=== PATIENT | male | born 1975 | race Caucasian/White ===

== ENCOUNTER 2016-08-21 19:24 | Emergency (ER) | payer MEDICAID ==
[2016-08-21 19:24] VITALS: BMI 30.4
[2016-08-21 19:32] VITALS: RESP 20; TEMP 97.8; O2SAT 97
[2016-08-21] MEDS ORDERED: Bacitracin 500 Units/gm Oint Foilpak UD TOP ONE (19:35)
[2016-08-21] MEDS ORDERED: Bacitracin 500 Units/gm Oint Foilpak UD ONE (19:42)
--- NOTE | 2016-08-21 20:02 | C.PDOC ---
History Of Present Illness 40 y/o male presents to the ED with complains of bilateral knee pain. Pt reports falling in the snow 1 week ago causing bilateral knee pain. Today, patient was walking tripped and fell on uneven sidewalk injuring knees again. Pt denies numbness, weakness or any other complaints. Time Seen by Provider: 08/21/16 19:30 Chief Complaint (Nursing): Lower Extremity Problem/Injury History Per: Patient History/Exam Limitations: no limitations Onset/Duration Of Symptoms: Days Current Symptoms Are (Timing): Worse Severity: Mild Recent travel outside of the [place]: No - Knee Description Of Injury: Fell Past Medical History Reviewed: Historical Data, Nursing Documentation, Vital Signs Vital Signs: Last Vital Signs Temp 97.8 F 08/21/16 19:28 Pulse 79 08/21/16 20:10 Resp 20 08/21/16 20:10 BP 95/55 L 08/21/16 20:10 Pulse Ox 97 08/21/16 20:37 - Medical History PMH: Anemia, Anxiety, Arthritis, Asthma, CHF, Diabetes, Gastrointestinal Ulcer, HTN, Hypercholesterolemia, Pneumonia, Rheumatoid Arthritis, Seizures (etoh induced) Surgical History: Endoscopy - [facility] Procedures ALCOHOL DETOXIFICATION (05/28/13) CENTRAL VENOUS CATHETER PLACEMENT WITH GUIDANCE (01/31/14) CYSTOSCOPY NEC (06/08/13) DETOXIFICATION SERVICES FOR SUBSTANCE ABUSE TREATMENT (08/14/15) EXCISION OF ASCENDING COLON, ENDO, DIAGN (10/29/15) EXCISION OF STOMACH, ENDO, DIAGN (10/29/15) GROUP PSYCHOTHERAPY (04/21/16) OTHER ENDOSCOPY OF SM INTEST (01/31/14) PACKED CELL TRANSFUSION (01/31/14) RETROGRADE PYELOGRAM (06/08/13) TRANSFUSE NONAUT FROZEN PLASMA IN PERIPH VEIN, PERC (05/06/15) TRANSFUSE NONAUT RED BLOOD CELLS IN PERIPH VEIN, PERC (10/29/15) Family History: States: Unknown Family Hx, Diabetes (Father) - Social History Hx Tobacco Use: No Hx Alcohol Use: Yes Hx Substance Use: No - Immunization History Hx Tetanus Toxoid Vaccination: Yes Hx Influenza Vaccination: Yes Hx Pneumococcal Vaccination: Yes Review Of Systems Constitutional: Negative for: Fever, Weakness, Malaise Cardiovascular: Negative for: Chest Pain Respiratory: Negative for: Cough Gastrointestinal: Negative for: Abdominal Pain Musculoskeletal: Positive for: Other (bilateral knee pain) Neurological: Negative for: Weakness, Numbness Physical Exam - Physical Exam Appears: Non-toxic, No Acute Distress Skin: Warm, Dry, No Rash, No Ecchymosis, Other (psoriasis and plaques to body) Head: Atraumatic, Normacephalic Eye(s): bilateral: Normal Inspection, EOMI Neck: Normal ROM Extremity: Normal ROM, No Calf Tenderness, No Deformity, Other (Superficial abrasion to bilateral knees, normal ROM, no swelling. ) Pulses: Left Dorsalis Pedis: Normal, Right Dorsalis Pedis: Normal Neurological/Psych: Oriented x3, Normal Speech, Normal Motor, Normal Sensation ED Course And Treatment O2 Sat by Pulse Oximetry: 97 (on room air) Pulse Ox Interpretation: Normal Progress Note: Plan: wound care, tylenol Medical Decision Making Medical Decision Makin y.o male with leg abrasion after trip and fall. Based on history and exam, unlikely for fracture and xray not indicated. Patient has been seen in ER mulitiple times for similar complaints of chronic leg pain and falls. Wounds irrigated with NS and bacitracin and dressing was applied. Tylenol PO given for pain. Of note patient was hypotensive, states he has been fasting all day, denies any headache dizziness or weakness. Patient stable for discharge. Disposition Counseled Patient/Family Regarding: Need For Followup - Disposition Referrals: Damaris Edwards MD [Staff Provider] - Disposition: HOME/ ROUTINE Disposition Time: 19:56 Condition: STABLE Additional Instructions: You may take any pain reliever Tylenol or Advil as needed Keep wounds clean and dry Follow up with your primary doctor Instructions: Contusion in Adults (DC) - POA Present On Arrival: None - Clinical Impression Clinical Impression: Contusion of leg, Leg abrasion - PA / ARCHITECTURE INTERN / Resident Statement MD/DO has reviewed & agrees with the documentation as recorded. - Scribe Statement The provider has reviewed the documentation as recorded by the Rayneibradha Hayden All medical record entries made by the Rayneibradha were at my direction and personally dictated by me. I have reviewed the chart and agree that the record accurately reflects my personal performance of the history, physical exam, medical decision making, and the department course for this patient. I have also personally directed, reviewed, and agree with the discharge instructions and disposition.
[2016-08-21 20:10] VITALS: BP 95/55; PULSE 79
== END 2016-08-21 20:15 | disposition home or self-care (01) ==
LOC: C.ER 19:24
DX: S80.02XA Contusion of left knee, initial encounter (principal); S80.01XA Contusion of right knee, initial encounter; S80.212A Abrasion, left knee, initial encounter; S80.211A Abrasion, right knee, initial encounter; W01.0XXA Fall on same level from slipping, tripping and stumbling without subsequent striking against object, initial encounter; Y92.480 Sidewalk as the place of occurrence of the external cause

== ENCOUNTER 2016-10-09 11:30 | Emergency (ER) | payer MEDICAID ==
[2016-10-09 11:36] VITALS: O2SAT 100; BMI 29.0
[2016-10-09] MEDS ORDERED: Bacitracin 500 Units/gm Oint Foilpak UD TOP ONE (14:11)
--- NOTE | 2016-10-09 14:14 | C.PDOC ---
History Of Present Illness 40 y/o male, history of diabetes and anxiety, reports fall onto right knee, landing on left chest and cheek yesterday. Denies LOC. Patient states he was thrown off balance while swinging his child's backpack yesterday, causing the fall. Patient states the left chest wall pain makes it hard to breathe. He reports pain localized to just below left nipple. Denies neck pain, headache, new weakness, new numbness, nausea, vomiting, or other associated symptoms. Time Seen by Provider: 10/09/16 12:36 Chief Complaint (Nursing): Chest Pain History Per: Patient History/Exam Limitations: no limitations Onset/Duration Of Symptoms: Days Current Symptoms Are (Timing): Still Present Quality: "Pain" Recent travel outside of the [place]: No Past Medical History Reviewed: Historical Data, Nursing Documentation, Vital Signs Vital Signs: Last Vital Signs Temp 98 F 10/09/16 11:35 Pulse 89 10/09/16 11:35 Resp 18 10/09/16 11:35 BP 122/78 10/09/16 11:35 Pulse Ox 100 10/09/16 16:04 - Medical History PMH: Anemia, Anxiety, Arthritis, Asthma, CHF, Depression, Diabetes, Gastrointestinal Ulcer, HTN, Hypercholesterolemia, Pneumonia, Rheumatoid Arthritis, Seizures (etoh induced) Surgical History: Endoscopy - [facility] Procedures ALCOHOL DETOXIFICATION (05/28/13) CENTRAL VENOUS CATHETER PLACEMENT WITH GUIDANCE (01/31/14) CYSTOSCOPY NEC (06/08/13) DETOXIFICATION SERVICES FOR SUBSTANCE ABUSE TREATMENT (08/14/15) EXCISION OF ASCENDING COLON, ENDO, DIAGN (10/29/15) EXCISION OF STOMACH, ENDO, DIAGN (10/29/15) GROUP PSYCHOTHERAPY (04/21/16) OTHER ENDOSCOPY OF SM INTEST (01/31/14) PACKED CELL TRANSFUSION (01/31/14) RETROGRADE PYELOGRAM (06/08/13) TRANSFUSE NONAUT FROZEN PLASMA IN PERIPH VEIN, PERC (05/06/15) TRANSFUSE NONAUT RED BLOOD CELLS IN PERIPH VEIN, PERC (10/29/15) Family History: States: Unknown Family Hx, Diabetes (Father) - Social History Hx Tobacco Use: No Hx Alcohol Use: Yes (former) Hx Substance Use: No - Immunization History Hx Tetanus Toxoid Vaccination: Yes Hx Influenza Vaccination: Yes Hx Pneumococcal Vaccination: Yes Review Of Systems Except As Marked, All Systems Reviewed And Found Negative. Constitutional: Negative for: Fever, Chills Cardiovascular: Negative for: Chest Pain Respiratory: Negative for: Cough, Shortness of Breath Gastrointestinal: Negative for: Nausea, Vomiting Musculoskeletal: Positive for: Other (right knee pain, left chest wall pain) Skin: Negative for: Rash Neurological: Negative for: Weakness, Numbness Physical Exam - Physical Exam Appears: Non-toxic, Other (anxious appearing) Skin: Normal Color, Warm, Dry, Other (history of psoriasis, multiple healing dark colored skin patches over body, no ecchymosis ) Head: Atraumatic, Normacephalic Eye(s): bilateral: PERRL, EOMI Oral Mucosa: Moist Neck: Normal ROM, No Midline Cervical Tenderness, No Paracervical Tenderness, No Step Off Deformity, Supple Chest: Symmetrical, No Ecchymosis, Other ( reproducible pain along left anterior ribs, focal, no stepoff or crepitus) Cardiovascular: Rhythm Regular Respiratory: Normal Breath Sounds, No Rales, No Rhonchi, No Wheezing Gastrointestinal/Abdominal: Soft, No Tenderness, No Guarding, No Rebound Back: No Vertebral Tenderness, No Paraspinal Tenderness Extremity: Normal ROM, Capillary Refill (< 2 sec.), No Deformity, No Swelling, Other (right knee +abrasion, 2.0 cm x 1.0 cm. Full ROM of the knee. ) Extremity: Bilateral: Normal Color And Temperature Neurological/Psych: Oriented x3, Normal Speech, Normal Cognition, Normal Motor, Normal Sensation ED Course And Treatment ECG: Interpreted By Me, Viewed By Me ECG Rhythm: Sinus Rhythm ECG Interpretation: Abnormal Interpretation Of ECG: interior infarct age undermined Rate From EC (bpm) O2 Sat by Pulse Oximetry: 100 Pulse Ox Interpretation: Normal Medical Decision Making Medical Decision Making: Plan: * wound care * cxr * reassess Progress: cxr neg for fx, pt feeling much better. will d/c with nsaids and bacitracin. Disposition - Disposition Referrals: Damaris Edwards MD [Staff Provider] - Disposition Time: 15:55 Condition: IMPROVED Additional Instructions: Apply warm or cold compress to left chest wall 3-4 times a day to decrease pain. FOllow up with Dr Edwards in next few days. Take ibuprofen 600 mg by mouth every 6 hours for pain. Change dressing on knee every day. apply fresh layer of bacitracin daily. Prescriptions: RX: Bacitracin Ointment [Bacitracin] 30 gm TOP DAILY #1 tube Instructions: Contusion in Adults (ED), Abrasion (ED) Forms: General Discharge Instructions - Clinical Impression Clinical Impression: Abrasion of knee, right, Contusion of left chest wall - PA / CLERK TELEVISION PRODUCTION / Resident Statement MD/DO has reviewed & agrees with the documentation as recorded. - Scribe Statement The provider has reviewed the documentation as recorded by the Scribradha Rogers All medical record entries made by the Nikole were at my direction and personally dictated by me. I have reviewed the chart and agree that the record accurately reflects my personal performance of the history, physical exam, medical decision making, and the department course for this patient. I have also personally directed, reviewed, and agree with the discharge instructions and disposition.
[2016-10-09] MEDS ORDERED: Bacitracin 500 Units/gm Oint Foilpak UD ONE (14:21)
--- NOTE | 2016-10-09 14:27 | RAD ---
HISTORY: ant cp distal to breast left COMPARISON: No prior. TECHNIQUE: Chest PA and lateral FINDINGS: LUNGS: No active pulmonary disease. PLEURA: No significant pleural effusion identified. No pneumothorax apparent. CARDIOVASCULAR: Normal. OSSEOUS STRUCTURES: No significant abnormalities. VISUALIZED UPPER ABDOMEN: Normal. OTHER FINDINGS: None. IMPRESSION: No active disease.
[2016-10-09 16:35] VITALS: BP 132/80; PULSE 56; RESP 20; TEMP 98.1
--- NOTE | 2016-10-13 19:11 | CARD ---
APPROVED REPORT EKG Measurement Heart [id number] <Conclusion> Normal sinus rhythm Inferior infarct, age undetermined Abnormal ECG
== END 2016-10-09 16:35 | disposition designated cancer center or children's hospital (05) ==
LOC: C.ER 11:30
DX: S20.212A Contusion of left front wall of thorax, initial encounter (principal); S80.211A Abrasion, right knee, initial encounter; W18.39XA Other fall on same level, initial encounter; Y92.009 Unspecified place in unspecified non-institutional (private) residence as the place of occurrence of the external cause

== ENCOUNTER 2017-08-03 10:01 | Inpatient (IN) | payer MEDICAID ==
[2017-08-03 10:25] VITALS: BMI 29.8
[2017-08-03] MEDS ORDERED: Sodium Chloride 0.9% 1,000 ML IV ONE (11:03)
[2017-08-03] MEDS ORDERED: Sodium Chloride 0.9% 1,000 ML ONE (11:11)
[2017-08-03 11:27] LABS: BASO # 0.1 K/uL (0.0-0.2); BASO % 2.6 % (0.0-2.0); EOS # 0.1 K/uL (0.0-0.7); EOS % 1.7 % (0.0-4.0); LYMPH # 1.6 K/uL (1.0-4.3); LYMPH % 28.7 % (20.0-40.0); MEAN CELL VOLUME 88.5 fL (80.0-94.0); MEAN CORPUSCULAR HEMOGLOBIN 28.6 pg (27.0-31.0); MEAN CORPUSCULAR HGB CONC 32.4 g/dL (33.0-37.0); MONO # 0.8 K/uL (0.0-0.8); MONO % 14.1 % (0.0-10.0); NEUT % 52.9 % (50.0-75.0); NRBC % 0.1 % (0.0-2.0); RBC 2.53 Mil/uL (4.40-5.90); RED CELL DISTRIBUTION WIDTH 19.3 % (11.5-14.5); WHITE BLOOD COUNT 5.7 K/uL (4.8-10.8)
[2017-08-03] MEDS ORDERED: Multivitamin (MVI) 10 ML, Thiamine 100 MG, Folic Acid 1 MG in Sodium Chloride 0.9% 1,00... IV ONE (11:32)
[2017-08-03 11:33] LABS: HEMOGLOBIN 7.3 g/dL (12.0-18.0)
[2017-08-03 11:36] LABS: INR 1.7
[2017-08-03 11:38] LABS: PROTHROMBIN TIME 19.7 SECONDS (9.7-12.2)
[2017-08-03 11:47] LABS: ALB/GLOB RATIO 0.7 (1.0-2.1); ALBUMIN 2.5 g/dL (3.5-5.0); ALT/SGPT 55 U/L (21-72); AST/SGOT 185 U/L (17-59); BLOOD UREA NITROGEN 14 mg/dL (9-20); CALCIUM 7.4 mg/dl (8.6-10.4); GFR AFRICAN-AMERICAN 54; GFR NON-AFRICAN AMERICAN 45
--- NOTE | 2017-08-03 11:47 | C.PDOC ---
History Of Present Illness 41 y/o male, w/PMhx of diabetes, asthma, HTN, liver disease, and ETOH abuse, c/ o gross rectal bleeding w/ bm daily x 1 wk and shaking and decreased PO intake x 3 days. Pt started feeling light-headed and fainted in a store today. Pt doesn 't think he hit his head. Pt had last drink 3 days ago. Time Seen by Provider: 08/03/17 10:52 Chief Complaint (Nursing): GI Problem History Per: Patient History/Exam Limitations: no limitations Onset/Duration Of Symptoms: Days Current Symptoms Are (Timing): Still Present Severity: Moderate Past Medical History Reviewed: Historical Data, Nursing Documentation, Vital Signs Vital Signs: Last Vital Signs Temp 98.5 F 08/03/17 16:30 Pulse 110 H 08/03/17 18:00 Resp 19 08/03/17 18:00 BP 141/85 08/03/17 17:49 Pulse Ox 100 08/03/17 18:29 - Medical History PMH: Anemia, Anxiety, Arthritis, Asthma, CHF, Depression, Diabetes, Gastrointestinal Ulcer, HTN, Hypercholesterolemia, Pneumonia, Rheumatoid Arthritis, Seizures (etoh induced) Denies: Hepatitis, HIV, Chronic Kidney Disease, Sexually Transmitted Disease Other PMH: alcohol abuse Surgical History: Endoscopy - [facility] Procedures ALCOHOL DETOXIFICATION (05/28/13) CENTRAL VENOUS CATHETER PLACEMENT WITH GUIDANCE (01/31/14) CYSTOSCOPY NEC (06/08/13) DETOXIFICATION SERVICES FOR SUBSTANCE ABUSE TREATMENT (08/14/15) EXCISION OF ASCENDING COLON, ENDO, DIAGN (10/29/15) EXCISION OF STOMACH, ENDO, DIAGN (10/29/15) GROUP PSYCHOTHERAPY (04/21/16) OTHER ENDOSCOPY OF SM INTEST (01/31/14) PACKED CELL TRANSFUSION (01/31/14) RETROGRADE PYELOGRAM (06/08/13) TRANSFUSE NONAUT FROZEN PLASMA IN PERIPH VEIN, PERC (05/06/15) TRANSFUSE NONAUT RED BLOOD CELLS IN PERIPH VEIN, PERC (10/29/15) Family History: States: Diabetes (Father) - Social History Hx Tobacco Use: No Hx Alcohol Use: Yes (former) Hx Substance Use: No - Immunization History Hx Tetanus Toxoid Vaccination: Yes Hx Influenza Vaccination: Yes Hx Pneumococcal Vaccination: Yes Review Of Systems Constitutional: Positive for: Weakness, Malaise, Other (shaking). Negative for : Fever, Chills Respiratory: Positive for: Cough. Negative for: Shortness of Breath Gastrointestinal: Positive for: Hematochezia. Negative for: Vomiting Skin: Positive for: Lesions (chronic psoriasis) Neurological: Negative for: Numbness Physical Exam - Physical Exam Appears: No Acute Distress Skin: Pale, Other (psoriatic scaly patches lesions all over body) Head: Atraumatic, Normacephalic Eye(s): bilateral: Normal Inspection Oral Mucosa: Dry Neck: Supple Chest: Symmetrical, No Tenderness Cardiovascular: Rhythm Irregular (tachycardiac) Respiratory: No Decreased Breath Sounds, No Accessory Muscle Use, No Rales, No Rhonchi, No Wheezing Gastrointestinal/Abdominal: Soft, No Tenderness Rectal: Heme Positive (gross red blood in bedpan) Extremity: Other (bilateral hand tremors) Neurological/Psych: Oriented x3, Normal Speech, Normal Cognition, Other ( obvious tremulous hands) ED Course And Treatment - Laboratory Results Result Diagrams: 08/03/17 17:13 08/03/17 17:13 ECG: Interpreted By Me, Viewed By Me ECG Interpretation: Abnormal Interpretation Of ECG: Accelerated junctional rhythm, and possible anterior infarct (age undetermined) Rate From EC O2 Sat by Pulse Oximetry: 100 (RA) Pulse Ox Interpretation: Normal - Other Rad chest x-ray X-Ray: Viewed By Me, Read By Radiologist Interpretation: FINDINGS: LUNGS: The lungs are well inflated and clear. PLEURA: No pneumothorax or pleural fluid seen. CARDIOVASCULAR: Normal. OSSEOUS STRUCTURES: No significant abnormalities. VISUALIZED UPPER ABDOMEN: Normal. OTHER FINDINGS: None. IMPRESSION: No active pulmonary disease. - CT Scan/US CT Head Other Rad Studies (CT/US): Read By Radiologist, Radiology Report Reviewed CT/US Interpretation: FINDINGS: HEMORRHAGE: No intracranial hemorrhage. BRAIN : Torres-white matter differentiation is preserved. There is no mass, mass effect or abnormal extra-axial fluid collection. VENTRICLES: There is mild global parenchymal volume loss and proportionate enlargement of the ventricles and cortical sulci. CALVARIUM: The skull base and calvarium are normal. PARANASAL SINUSES: Predominantly clear. MASTOID AIR CELLS: Predominantly clear. OTHER FINDINGS: None. IMPRESSION: No acute intracranial abnormality. Mild global parenchymal volume loss, advanced for the patient's age. Progress Note: Labs, CXR, and Head CT ordered. - Physician Consult Information Physician Contacted: Damaris Edwards Outcome Of Conversation: Case d/c with Dr. Edwards. Patient will be admitted in ICU. Medical Decision Making Medical Decision Making: discussed with Dr Edwards and with Dr Oral Lind, corporate account executive. to be admitted to ICU, for gi bleed, anemia, etoh and sepsi Disposition Discussed With .: Damaris Edwards Doctor Will See Patient In The: Hospital - Disposition Disposition: HOSPITALIZED Disposition Time: 14:00 Condition: SERIOUS - Clinical Impression Clinical Impression: Sepsis, GI bleed, Anemia, Alcohol withdrawal, Syncope - PA / BLANKET MAKER / Resident Statement MD/DO has reviewed & agrees with the documentation as recorded. - Scribe Statement The provider has reviewed the documentation as recorded by the Rayneibe Shannen Serrano Provider Attestation All medical record entries made by the Scribe were at my direction and personally dictated by me. I have reviewed the chart and agree that the record accurately reflects my personal performance of the history, physical exam, medical decision making, and the department course for this patient. I have also personally directed, reviewed, and agree with the discharge instructions and disposition. Decision To Admit - Pt Status Changed To: Hospital Disposition Of: Inpatient - Admit Certification Admit to Inpatient:: After my assessment, the patient will require hospitalization for at least two midnights. This is because of the severity of symptoms shown, intensity of services needed, and/or the medical risk in this patient being treated as an outpatient. - InPatient: Physician Admission Certification: I certify that this patient requires 2 or more midnights of care for the following reason:: tx fo gi bleed and sepsis - . Bed Request Type: ICU Admitting Physician: Damaris Edwards Patient Diagnosis: Sepsis, GI bleed, Anemia, Alcohol withdrawal, Syncope
--- NOTE | 2017-08-03 12:48 | CT ---
PROCEDURE: CT HEAD WITHOUT CONTRAST. HISTORY: Syncope COMPARISON: 05/04/2015. TECHNIQUE: Axial computed tomography images were obtained through the head/brain without intravenous contrast. Radiation dose: Total exam DLP = 948.60 mGy-cm. This CT exam was performed using one or more of the following dose reduction techniques: Automated exposure control, adjustment of the mA and/or kV according to patient size, and/or use of iterative reconstruction technique. FINDINGS: HEMORRHAGE: No intracranial hemorrhage. BRAIN: Torres-white matter differentiation is preserved. There is no mass, mass effect or abnormal extra-axial fluid collection. VENTRICLES: There is mild global parenchymal volume loss and proportionate enlargement of the ventricles and cortical sulci. CALVARIUM: The skull base and calvarium are normal. PARANASAL SINUSES: Predominantly clear. MASTOID AIR CELLS: Predominantly clear. OTHER FINDINGS: None. IMPRESSION: No acute intracranial abnormality. Mild global parenchymal volume loss, advanced for the patient's age.
--- NOTE | 2017-08-03 12:51 | RAD ---
PROCEDURE: CHEST RADIOGRAPH, 1 VIEW HISTORY: Cough COMPARISON: 10/09/2016. FINDINGS: LUNGS: The lungs are well inflated and clear. PLEURA: No pneumothorax or pleural fluid seen. CARDIOVASCULAR: Normal. OSSEOUS STRUCTURES: No significant abnormalities. VISUALIZED UPPER ABDOMEN: Normal. OTHER FINDINGS: None. IMPRESSION: No active pulmonary disease.
[2017-08-03] MEDS ORDERED: Vancomycin 1 gm/NS 200 ml 1 GM/200 ML BAG IVPB ONE (13:14)
--- NOTE | 2017-08-03 14:02 | CP.PCM.CON ---
<Arnie Rincon - Last Filed: 08/03/17 14:20> History of Present Illness - History of Present Illness History of Present Illness: Initial GI Consult Note - Hermilo Rincon PGY2 Reason for consult: rectal bleeding HPI: Patient is a 41yo male with past medical history of hypertension, alcohol- induced liver cirrhosis, hypertension, diabetes, psoriasis that presented with complaints of rectal bleeding over the last 3 weeks. He reported that over the last 2-3 weeks he has had flu-like symptoms including malaise and chills. He reported having went to his PMD, who had prescribed an antibiotic. He stated that his rectal bleeding was intermittent, bright red and with stool in small amounts. He is a daily drinker with approximately 1-2 pints of vodka per day. His last reported drink was 3 days prior however he admits that he may have had a drink prior to presentation. Patient had been taking lactulose for his liver cirrhosis however ran out 3 months prior. Patient denied chest pain, palpitations, SOB, abdominal pain, vomiting, focal weakness, numbness, tingling. 12point ROS as per HPI above otherwise negative PMHx: as stated above PSHx: history of endoscopy/colonoscopy Allergies: NKDA Family hx: Father: history of heart transplant; Mother: hypertension/diabetes Social Hx: Daily alcohol consumption (~1pint of vodka per day), denies illicit drug use and former tobacco use Endoscopy hx: Endoscopy/Colonoscopy completed in 10/2015 - revealed grade 1 esophageal varices, LA Grade B Esophagitis, internal hemorrhoids, edema of the ascending colon Past Patient History - Infectious Disease Hx of Infectious Diseases: None - Past Medical History & Family History Past Medical History?: Yes - Past Social History Smoking Status: Never Smoked - CARDIAC Hx Congestive Heart Failure: Yes Hx Hypercholesterolemia: Yes Hx Hypertension: Yes - PULMONARY Hx Asthma: Yes Hx Pneumonia: Yes - NEUROLOGICAL Hx Seizures: Yes (etoh induced) - HEENT Hx HEENT Problems: No - RENAL Hx Chronic Kidney Disease: No - ENDOCRINE/METABOLIC Hx Endocrine Disorders: Yes Hx Diabetes Mellitus Type 2: Yes - HEMATOLOGICAL/ONCOLOGICAL Hx Anemia: Yes Hx Human Immunodeficiency Virus (HIV): No - INTEGUMENTARY Hx Dermatological Problems: Yes Hx Psoriasis: Yes Other/Comment: Psoriatic Arthritis - MUSCULOSKELETAL/RHEUMATOLOGICAL Hx Arthritis: Yes Hx Rheumatoid Arthritis: Yes - GASTROINTESTINAL Hx Gastrointestinal Disorders: No Other/Comment: Liver disease - GENITOURINARY/GYNECOLOGICAL Hx Sexually Transmitted Disorders: No - PSYCHIATRIC Hx Anxiety: Yes Hx Depression: Yes Hx Substance Use: No - SURGICAL HISTORY Hx Surgeries: Yes - ANESTHESIA Hx Anesthesia: Yes Hx Anesthesia Reactions: No Hx Malignant Hyperthermia: No Meds Allergies/Adverse Reactions: Allergies Allergy/AdvReac Type Severity Reaction Status Date / Time No Known Allergies Allergy Verified 08/03/17 17:50 - Medications Medications: Current Medications Octreotide Acetate 1,250 mcg/ (Sodium Chloride) 252.5 mls @ 10.1 mls/hr IV .Q24H FLY; 50 MCG/HR PRN Reason: Protocol Dextrose/Lactated Ringer's (Dextrose 5%/Lactated Ringer's) 1,000 mls @ 999 mls/ hr IV .Q1H1M FLY Vancomycin/Sodium Chloride (Vancomycin 1 Gm/Ns 200 Ml) 1 gm in 200 mls @ 166.7 mls/hr IVPB ONCE ONE PRN Reason: Protocol Stop: 08/03/17 14:25 Piperacillin Sod/Tazobactam (Sod 3.375 gm/ Sodium Chloride) 100 mls @ 200 mls/ hr IVPB Q8H FLY PRN Reason: Protocol Multivitamins/Vitamin C (Multi-Delyn Liquid) 5 ml PO DAILY FLY Niacin (Niacin) 250 mg PO Q12 FLY Thiamine HCl (Vitamin B1 Inj) 200 mg IV Q8H FLY Physical Exam - Constitutional Appears: Unkempt, Chronically Ill - Head Exam Head Exam: ATRAUMATIC, NORMOCEPHALIC - Eye Exam Eye Exam: EOMI Pupil Exam: PERRL - ENT Exam ENT Exam: Mucous Membranes Moist - Respiratory Exam Respiratory Exam: absent: Rales, Rhonchi, Wheezes - Cardiovascular Exam Cardiovascular Exam: Tachycardia, +S1, +S2. absent: Gallop, JVD - GI/Abdominal Exam GI & Abdominal Exam: Soft. absent: Distended, Firm, Guarding, Rigid, Tenderness - Rectal Exam Additional comments: no evidence of melena scant blood-tinged mucus - Neurological Exam Neurological exam: Alert, CN II-XII Intact, Oriented x3 - Skin Additional comments: diffuse psoriatic lesions covering > 50% of body surface Results - Vital Signs Recent Vital Signs: Last Vital Signs Temp 98.3 F 08/03/17 10:20 Pulse 129 H 03/06/18 12:26 Resp 20 08/03/17 12:26 BP 134/61 08/03/17 12:26 Pulse Ox 98 08/03/17 12:26 - Labs Result Diagrams: 08/03/17 11:20 08/03/17 11:20 Labs: Laboratory Results - last 24 hr 08/03/17 08/03/17 08/03/17 11:20 11:20 11:20 WBC 5.7 RBC 2.53 L Hgb 7.3 L D Hct 22.4 L MCV 88.5 MCH 28.6 MCHC 32.4 L RDW 19.3 H Plt Count 90 L MPV 7.0 L Neut % (Auto) 52.9 Lymph % (Auto) 28.7 [place] % (Auto) 14.1 H Eos % (Auto) 1.7 Baso % (Auto) 2.6 H Neut # (Auto) 3.0 Lymph # (Auto) 1.6 [place] # (Auto) 0.8 Eos # (Auto) 0.1 Baso # (Auto) 0.1 Differential Comment PT 19.7 H INR 1.7 APTT 42 H Sodium 142 Potassium 4.0 Chloride 99 Carbon Dioxide 16 L Anion Gap 31 H BUN 14 Creatinine 1.7 H Est GFR ( Amer) 54 Est GFR (Non-Af Amer) 45 Random Glucose 181 H Calcium 7.4 L Total Bilirubin 2.1 H AST 185 H ALT 55 Alkaline Phosphatase 131 H Ammonia Troponin I 0.0390 Total Protein 6.3 Albumin 2.5 L D Globulin 3.8 Albumin/Globulin Ratio 0.7 L Alcohol, Quantitative 169 H Serum Ketones Negative Influenza Typ A,B (EIA) Blood Type Antibody Screen 08/03/17 08/03/17 08/03/17 11:20 12:12 13:04 WBC RBC Hgb Hct MCV MCH MCHC RDW Plt Count MPV Neut % (Auto) Lymph % (Auto) [place] % (Auto) Eos % (Auto) Baso % (Auto) Neut # (Auto) Lymph # (Auto) [place] # (Auto) Eos # (Auto) Baso # (Auto) Differential Comment PT INR APTT Sodium Potassium Chloride Carbon Dioxide Anion Gap BUN Creatinine Est GFR ( Amer) Est GFR (Non-Af Amer) Random Glucose Calcium Total Bilirubin AST ALT Alkaline Phosphatase Ammonia 93 H D Troponin I Total Protein Albumin Globulin Albumin/Globulin Ratio Alcohol, Quantitative Serum Ketones Influenza Typ A,B (EIA) Negative for flu a/b Blood Type AB POSITIVE Antibody Screen Negative Assessment & Plan - Assessment and Plan (Free Text) Plan: 41yo male with history of hypertension, diabetes, psoriasis, alcohol-induced liver cirrhosis presents with complaints of rectal bleeding in setting of severe sepsis 1. Anemia 2. Rectal bleeding 3. Alcohol-induced liver cirrhosis 4. Severe sepsis Plan: -MELD 20 -DF 37.5, however will hold off on steroid use secondary to possible infection -Continue octreotide drip -Continue protonix 40mg PO BID -Transfuse if Hgb < 7 or symptomatic -Monitor H/H -IVF hydration -Recommend infectious workup -NPO -If patient continues to bleed will consider endoscopic intervention Case discussed with attending, Dr. Jeffers <Ruddy Holt Y - Last Filed: 08/04/17 14:01> Meds - Medications Medications: Current Medications Chlordiazepoxide (Librium) 25 mg PO Q8 PRN PRN Reason: Anxiety Last Admin: 08/03/17 16:05 Dose: 25 mg Octreotide Acetate 1,250 mcg/ (Sodium Chloride) 252.5 mls @ 10.1 mls/hr IV .Q24H FLY; 50 MCG/HR PRN Reason: Protocol Last Admin: 08/04/17 11:05 Dose: 10.1 mls/hr Piperacillin Sod/Tazobactam (Sod 3.375 gm/ Sodium Chloride) 100 mls @ 200 mls/ hr IVPB Q8H FLY PRN Reason: Protocol Last Admin: 08/04/17 06:00 Dose: 200 mls/hr Vancomycin/Sodium Chloride (Vancomycin 1 Gm/Ns 200 Ml) 1 gm in 200 mls @ 166.7 mls/hr IVPB Q24H FLY PRN Reason: Protocol Stop: 08/09/17 14:01 Lactulose (Enulose) 20 gm PO Q12 FLY Last Admin: 08/04/17 11:06 Dose: Not Given Multivitamins/Vitamin C (Multi-Delyn Liquid) 5 ml PO DAILY FLY Last Admin: 08/04/17 11:06 Dose: 5 ml Niacin (Niacin) 250 mg PO Q12 FLY Last Admin: 08/04/17 11:06 Dose: 250 mg Pantoprazole Sodium (Protonix Inj) 40 mg IVP Q12H FLY Last Admin: 08/04/17 09:20 Dose: 40 mg Thiamine HCl (Vitamin B1 Inj) 200 mg IV Q8H FLY Last Admin: 08/04/17 06:15 Dose: 200 mg Results - Vital Signs Recent Vital Signs: Last Vital Signs Temp 98.4 F 08/04/17 12:00 Pulse 112 H 08/04/17 13:01 Resp 19 08/04/17 13:01 BP 167/95 H 08/04/17 13:01 Pulse Ox 98 08/04/17 13:01 - Labs Result Diagrams: 08/04/17 06:19 08/04/17 06:17 Labs: Laboratory Results - last 24 hr 08/03/17 08/03/17 08/03/17 11:20 15:20 16:17 WBC RBC Hgb Hct MCV MCH MCHC RDW Plt Count MPV Neut % (Auto) Lymph % (Auto) [place] % (Auto) Eos % (Auto) Baso % (Auto) Neut # (Auto) Lymph # (Auto) [place] # (Auto) Eos # (Auto) Baso # (Auto) Differential Comment Sodium Potassium Chloride Carbon Dioxide Anion Gap BUN Creatinine Est GFR ( Amer) Est GFR (Non-Af Amer) POC Glucose (mg/dL) 194 H Random Glucose Lactic Acid 8.0 H* Calcium Phosphorus Magnesium Total Bilirubin AST ALT Alkaline Phosphatase Total Protein Albumin Globulin Albumin/Globulin Ratio Urine Color Urine Clarity Urine pH Ur Specific [place] Urine Protein Urine Glucose (UA) Urine Ketones Urine Blood Urine Nitrate Urine Bilirubin Urine Urobilinogen Ur Leukocyte Esterase Urine WBC (Auto) Urine RBC (Auto) Ur Squamous Epith Cells Random Vancomycin Blood Type AB POSITIVE Antibody Screen Negative 08/03/17 08/03/17 08/03/17 17:13 17:13 17:13 WBC 6.0 RBC 2.26 L Hgb 6.5 L* Hct 19.7 L MCV 87.3 MCH 29.0 MCHC 33.2 RDW 18.9 H Plt Count 59 L D MPV 6.8 L Neut % (Auto) 49.3 L Lymph % (Auto) 33.4 [place] % (Auto) 15.3 H Eos % (Auto) 0.6 Baso % (Auto) 1.4 Neut # (Auto) 3.0 Lymph # (Auto) 2.0 [place] # (Auto) 0.9 H Eos # (Auto) 0.0 Baso # (Auto) 0.1 Differential Comment Sodium 139 Potassium 4.3 Chloride 102 Carbon Dioxide 21 L Anion Gap 20 BUN 13 Creatinine 1.5 Est GFR ( Amer) > 60 Est GFR (Non-Af Amer) 52 POC Glucose (mg/dL) Random Glucose 151 H Lactic Acid Calcium 7.2 L Phosphorus 4.2 Magnesium 1.3 L Total Bilirubin 2.5 H AST 193 H ALT 58 Alkaline Phosphatase 111 Total Protein 6.4 Albumin 2.4 L Globulin 4.0 H Albumin/Globulin Ratio 0.6 L Urine Color Urine Clarity Urine pH Ur Specific [place] Urine Protein Urine Glucose (UA) Urine Ketones Urine Blood Urine Nitrate Urine Bilirubin Urine Urobilinogen Ur Leukocyte Esterase Urine WBC (Auto) Urine RBC (Auto) Ur Squamous Epith Cells Random Vancomycin Blood Type Antibody Screen 08/03/17 08/04/17 08/04/17 21:35 01:31 06:10 WBC RBC Hgb Hct MCV MCH MCHC RDW Plt Count MPV Neut % (Auto) Lymph % (Auto) [place] % (Auto) Eos % (Auto) Baso % (Auto) Neut # (Auto) Lymph # (Auto) [place] # (Auto) Eos # (Auto) Baso # (Auto) Differential Comment Sodium Potassium Chloride Carbon Dioxide Anion Gap BUN Creatinine Est GFR ( Amer) Est GFR (Non-Af Amer) POC Glucose (mg/dL) 152 H 225 H Random Glucose Lactic Acid 6.2 H* Calcium Phosphorus Magnesium Total Bilirubin AST ALT Alkaline Phosphatase Total Protein Albumin Globulin Albumin/Globulin Ratio Urine Color Urine Clarity Urine pH Ur Specific [place] Urine Protein Urine Glucose (UA) Urine Ketones Urine Blood Urine Nitrate Urine Bilirubin Urine Urobilinogen Ur Leukocyte Esterase Urine WBC (Auto) Urine RBC (Auto) Ur Squamous Epith Cells Random Vancomycin Blood Type Antibody Screen 08/04/17 08/04/17 08/04/17 06:17 06:17 06:19 WBC 5.4 RBC 2.75 L Hgb 8.0 L Hct 23.3 L MCV 84.9 D MCH 29.0 MCHC 34.1 RDW 17.9 H Plt Count 51 L MPV 7.5 Neut % (Auto) 47.8 L Lymph % (Auto) 31.2 [place] % (Auto) 16.8 H Eos % (Auto) 2.3 Baso % (Auto) 1.9 Neut # (Auto) 2.6 Lymph # (Auto) 1.7 [place] # (Auto) 0.9 H Eos # (Auto) 0.1 Baso # (Auto) 0.1 Differential Comment Sodium 141 Potassium 4.1 Chloride 103 Carbon Dioxide 25 Anion Gap 17 BUN 14 Creatinine 1.4 Est GFR ( Amer) > 60 Est GFR (Non-Af Amer) 56 POC Glucose (mg/dL) Random Glucose 171 H Lactic Acid Calcium 7.5 L Phosphorus 3.6 Magnesium 1.3 L Total Bilirubin 3.2 H AST 190 H ALT 58 Alkaline Phosphatase 97 Total Protein 6.4 Albumin 2.3 L Globulin 4.1 H Albumin/Globulin Ratio 0.6 L Urine Color Urine Clarity Urine pH Ur Specific [place] Urine Protein Urine Glucose (UA) Urine Ketones Urine Blood Urine Nitrate Urine Bilirubin Urine Urobilinogen Ur Leukocyte Esterase Urine WBC (Auto) Urine RBC (Auto) Ur Squamous Epith Cells Random Vancomycin 6.17 Blood Type Antibody Screen 08/04/17 08/04/17 06:54 11:37 WBC RBC Hgb Hct MCV MCH MCHC RDW Plt Count MPV Neut % (Auto) Lymph % (Auto) [place] % (Auto) Eos % (Auto) Baso % (Auto) Neut # (Auto) Lymph # (Auto) [place] # (Auto) Eos # (Auto) Baso # (Auto) Differential Comment Sodium Potassium Chloride Carbon Dioxide Anion Gap BUN Creatinine Est GFR ( Amer) Est GFR (Non-Af Amer) POC Glucose (mg/dL) 211 H Random Glucose Lactic Acid Calcium Phosphorus Magnesium Total Bilirubin AST ALT Alkaline Phosphatase Total Protein Albumin Globulin Albumin/Globulin Ratio Urine Color Yellow Urine Clarity Clear Urine pH 8.0 Ur Specific [place] 1.015 Urine Protein Negative Urine Glucose (UA) Normal Urine Ketones Negative Urine Blood Negative Urine Nitrate Negative Urine Bilirubin Negative Urine Urobilinogen Normal Ur Leukocyte Esterase Neg Urine WBC (Auto) 1 Urine RBC (Auto) 1 Ur Squamous Epith Cells < 1 Random Vancomycin Blood Type Antibody Screen Attending/Attestation - Attestation I have personally seen and examined this patient.: Yes I have fully participated in the care of the patient.: Yes I have reviewed all pertinent clinical information: Yes Notes (Text): 08/04/17 13:54 I have seen and examined patient with GI fellow and medical device sales representative. Agree with above documentation with the following additions. In brief, this is a 41 year old male with history of ETOH cirrhosis, HTN, DM, psoriasis who presents to hospital with complaint of rectal bleeding. He reports intermittent bright red blood per stool for the past 2 weeks. Symptoms started following antibiotic therapy when he developed flu-like symptoms. He denies associated abdominal pain, nausea, vomiting, diarrhea, weight loss. He admits to ongoing ETOH abuse consuming nearly 1-2 pints of vodka daily. He had an EGD/ colonoscopy [place] [address] Woodward which showed grade I varices, esophagitis, internal hemorrhoids. Review of vitals shows tachycardia. Additional physical examination: Abdomen: no palpable hepato/splenomegaly ETOH decompensated cirrhosis, admission MELD 20 HTN DM Psoriasis Anemia, rectal bleeding Sepsis - unclear source - Clear liquid diet as tolerated - H/H stable, s/p PRBC transfusion, continue to monitor. No further episodes of rectal bleeding noted in hospital. - Obtain stool studies (culture, c-difficile) - Continue with antibiotic therapy as per ID - Continue with lactulose for HE prevention, titrate so patient has 2-3 bowel movements daily - Continue with PPI and octreotide infusion therapy for time being - Patient will benefit from repeat endoscopic evaluation, variceal surveillance. Timing to be determined pending patient clinical course, overall prognosis quite poor in decompensated cirrhotic with ongoing ETOH use, not transplant candidate.
[2017-08-03] MEDS ORDERED: Thiamine 100 mg/ml Inj ONE (14:22)
[2017-08-03] MEDS: Thiamine 100 mg/ml Inj IV SCH ×2 (14:25→22:10)
[2017-08-03] MEDS: Lactated Ringer's 1,000 ML IV SCH ×3 (15:05→18:33)
[2017-08-03] MEDS ORDERED: Lactated Ringer's 1,000 ML ONE ×2 (15:08→16:03)
[2017-08-03] MEDS: Dextrose 5%/Lactated Ringer's 1,000 ML IV SCH ×4 (15:14→17:10)
[2017-08-03] MEDS ORDERED: Lactated Ringer's 1,000 ML IV ONE ×2 (15:48→16:46)
[2017-08-03] MEDS: Piperacillin/Tazobact 3.375 GM in Sodium Chloride 100 ML IVPB SCH ×2 (15:57→22:00)
--- NOTE | 2017-08-03 15:59 | PCM.SEPTIC ---
Sepsis Progress Note - Reassessment Type Date of Evaluation: 08/03/17 Time of Evaluation: 15:58 Reassessment Type: Non-invasive reassessment - Non Invasive Reassessment Were the most recent vital sign reviewed: Yes Vital Sign (Latest): Temp Pulse Resp BP Pulse Ox 98.3 F 123 H 25 H 145/82 97 08/03/17 10:20 08/03/17 14:47 08/03/17 14:47 08/03/17 14:47 08/03/17 14:47 Cardiovascular: Yes: Regular Rate, Rhythm, Tachycardia Respiratory: Yes: Normal Breath Sounds Capillary Refill: Normal (Less than 2 sec) Pulses: Normal Radial, Normal Dorsalis Pedis, Normal Posterior Tibialis Skin: Warm - Invasive Reassessment (complete 2 of 4) Was a Central Venous Pressure Measurement obtained within 6 Hours after the presentation of septic shock: No Was a central venous oxygen measurement obtained within 6 hours after the presentation of septic shock: No Was a passive leg raise performed or was a fluid challenge performed within 6 hrs of the initial fluid bolus: Yes Passive Leg Raise Result: Not Applicable Fluid Challenge performed: Yes
--- NOTE | 2017-08-03 16:17 | CP.PCM.CON ---
<Cali Dueñas - Last Filed: 08/03/17 17:34> History of Present Illness - History of Present Illness History of Present Illness: 41 year old male with a past medical history of diabetes, asthma, hypertension, liver disease(?cirrhosis), etoh abuse, hypercholesterolemia, psoriasis and withdrawal seizures who presented to the emergency department after a syncopal episode while in line ordering food at [facility]. Patient reports in conjunction with the initial symptoms he also was reporting rectal bleeding and bright red blood with bowel movement for one week approximately. Patient states that he has become more faint and lightheaded since the bleeding started. Patient is a daily drinker, consuming 1- 2 pints of vodka per day. The patients last drinking was three days ago. Patient reports feeling disorientated, making it hard for him to understand people. He also reports chills, decreased oral intake, anxiety, tremors, nausea and vomiting. ICU was consulted for GI bleeding, syncope, and alcohol withdrawal. PMD: Dr. Edwards Past medical history: diabetes, asthma, hypertension, liver disease, alcohol abuse, hypercholesterolemia, psoriasis and withdrawal seizures Surgical history:Denies Medications:Trazadone 100mg PO Daily, Metformin 850mg PO BID, Valsartan 80mg PO Daily, Spironolactone 25mg PO Daily, Zoloft 100mg PO BID, Propranolol 20mg PO Daily, Omeprazole 10mg PO Daily, Neurontin 100mg PO BID, Lexapro 10mg PO Daily, Ventolin HFA .09 mg IH QID, Albuterol 3ml IH QID Family history: father: heart transplant ago 50, Kidney failure Allergies: Denies Review of Systems - Constitutional Constitutional: absent: Chills, Daytime Sleepiness, Headache, Snoring, Weakness - EENT Eyes: absent: Change in Vision, Discharge, Loss of Peripheral Vision Ears: absent: Ear Discharge, Dizziness Nose/Mouth/Throat: absent: Nasal Congestion, Nose Pain, Bleeding Gums, Neck Pain , Neck Mass - Cardiovascular Cardiovascular: Chest Pain, Syncope. absent: Chest Pain at Rest, Diaphoresis, Leg Edema, Palpitations, Pedal Edema, Radiating Pain - Respiratory Respiratory: absent: Cough, Hemoptysis, Pain on Inspiration, Change in Mucous Color - Gastrointestinal Gastrointestinal: absent: Belching, Dyspepsia, Melena, Nausea, Odynophagia, Vomiting - Genitourinary Genitourinary: absent: Dysuria, Nocturia, Urinary Incontinence, Urinary Urgency , Bladder Distension - Musculoskeletal Musculoskeletal: absent: Atrophy, Myalgias, Stiffness, Tingling - Integumentary Integumentary: absent: Dry Skin, Rash, Skin Pain, Skin Ulcer, Swelling - Neurological Neurological: Syncope. absent: Focal Weakness, Vertigo, Weakness - Endocrine Endocrine: absent: Polydipsia, Polyphagia, Polyuria Past Patient History - Infectious Disease Hx of Infectious Diseases: None - Past Medical History & Family History Past Medical History?: Yes - Past Social History Smoking Status: Never Smoked - CARDIAC Hx Congestive Heart Failure: Yes Hx Hypercholesterolemia: Yes Hx Hypertension: Yes - PULMONARY Hx Asthma: Yes Hx Pneumonia: Yes - NEUROLOGICAL Hx Seizures: Yes (etoh induced) - HEENT Hx HEENT Problems: No - RENAL Hx Chronic Kidney Disease: No - ENDOCRINE/METABOLIC Hx Endocrine Disorders: Yes Hx Diabetes Mellitus Type 2: Yes - HEMATOLOGICAL/ONCOLOGICAL Hx Anemia: Yes Hx Human Immunodeficiency Virus (HIV): No - INTEGUMENTARY Hx Dermatological Problems: Yes Hx Psoriasis: Yes Other/Comment: Psoriatic Arthritis - MUSCULOSKELETAL/RHEUMATOLOGICAL Hx Arthritis: Yes Hx Rheumatoid Arthritis: Yes - GASTROINTESTINAL Hx Gastrointestinal Disorders: No Other/Comment: Liver disease - GENITOURINARY/GYNECOLOGICAL Hx Sexually Transmitted Disorders: No - PSYCHIATRIC Hx Anxiety: Yes Hx Depression: Yes Hx Substance Use: No - SURGICAL HISTORY Hx Surgeries: Yes - ANESTHESIA Hx Anesthesia: Yes Hx Anesthesia Reactions: No Hx Malignant Hyperthermia: No Meds Allergies/Adverse Reactions: Allergies Allergy/AdvReac Type Severity Reaction Status Date / Time No Known Allergies Allergy Verified 08/03/17 10:30 - Medications Medications: Current Medications Chlordiazepoxide (Librium) 25 mg PO Q8 PRN PRN Reason: Anxiety Last Admin: 08/03/17 16:05 Dose: 25 mg Octreotide Acetate 1,250 mcg/ (Sodium Chloride) 252.5 mls @ 10.1 mls/hr IV .Q24H FLY; 50 MCG/HR PRN Reason: Protocol Last Admin: 08/03/17 13:35 Dose: 10.1 mls/hr Dextrose/Lactated Ringer's (Dextrose 5%/Lactated Ringer's) 1,000 mls @ 999 mls/ hr IV .Q1H1M FLY Last Admin: 08/03/17 15:17 Dose: Not Given Piperacillin Sod/Tazobactam (Sod 3.375 gm/ Sodium Chloride) 100 mls @ 200 mls/ hr IVPB Q8H [facility] PRN Reason: Protocol Last Admin: 08/03/17 15:57 Dose: 200 mls/hr Lactated Ringer's (Lactated Ringer's) 1,000 mls @ 1,000 mls/hr IV .Q1H [facility] Last Admin: 08/03/17 16:03 Dose: Not Given Lactated Ringer's (Lactated Ringer's) 1,000 mls @ 1,000 mls/hr IV .Q1H ONE Stop: 08/03/17 16:47 Lactulose (Enulose) 20 gm PO Q12 [facility] Last Admin: 08/03/17 15:59 Dose: 20 gm Multivitamins/Vitamin C (Multi-Delyn Liquid) 5 ml PO DAILY [facility] Niacin (Niacin) 250 mg PO Q12 [facility] Last Admin: 08/03/17 14:18 Dose: 250 mg Pantoprazole Sodium (Protonix Inj) 40 mg IVP Q12H [facility] Thiamine HCl (Vitamin B1 Inj) 200 mg IV Q8H [facility] Last Admin: 08/03/17 14:25 Dose: 200 mg Physical Exam - Head Exam Head Exam: ATRAUMATIC, NORMAL INSPECTION, NORMOCEPHALIC - Eye Exam Eye Exam: EOMI, Normal appearance, PERRL Pupil Exam: NORMAL ACCOMODATION, PERRL - ENT Exam ENT Exam: Mucous Membranes Moist, Normal Oropharynx - Neck Exam Neck exam: Negative for: Lymphadenopathy, Thyromegaly - Respiratory Exam Respiratory Exam: Clear to Auscultation Bilateral, NORMAL BREATHING PATTERN. absent: Prolonged Expiratory Phase, Respiratory Distress - Cardiovascular Exam Cardiovascular Exam: REGULAR RHYTHM, +S1, +S2 - GI/Abdominal Exam GI & Abdominal Exam: Normal Bowel Sounds, Soft - Extremities Exam Extremities exam: Positive for: normal inspection. Negative for: joint swelling , pedal edema - Neurological Exam Neurological exam: Alert, Oriented x3 - Skin Skin Exam: Dry, Intact Results - Vital Signs Recent Vital Signs: Last Vital Signs Temp 98.3 F 08/03/17 10:20 Pulse 123 H 08/03/17 14:47 Resp 25 H 08/03/17 14:47 BP 145/82 08/03/17 14:47 Pulse Ox 97 08/03/17 14:47 - Labs Result Diagrams: 08/03/17 17:13 08/03/17 17:13 Labs: Laboratory Results - last 24 hr 08/03/17 08/03/17 08/03/17 11:20 11:20 11:20 WBC 5.7 RBC 2.53 L Hgb 7.3 L D Hct 22.4 L MCV 88.5 MCH 28.6 MCHC 32.4 L RDW 19.3 H Plt Count 90 L MPV 7.0 L Neut % (Auto) 52.9 Lymph % (Auto) 28.7 [place] % (Auto) 14.1 H Eos % (Auto) 1.7 Baso % (Auto) 2.6 H Neut # (Auto) 3.0 Lymph # (Auto) 1.6 [place] # (Auto) 0.8 Eos # (Auto) 0.1 Baso # (Auto) 0.1 Differential Comment PT 19.7 H INR 1.7 APTT 42 H Sodium 142 Potassium 4.0 Chloride 99 Carbon Dioxide 16 L Anion Gap 31 H BUN 14 Creatinine 1.7 H Est GFR ( Amer) 54 Est GFR (Non-Af Amer) 45 POC Glucose (mg/dL) Random Glucose 181 H Lactic Acid Calcium 7.4 L Total Bilirubin 2.1 H AST 185 H ALT 55 Alkaline Phosphatase 131 H Ammonia Troponin I 0.0390 Total Protein 6.3 Albumin 2.5 L D Globulin 3.8 Albumin/Globulin Ratio 0.7 L Alcohol, Quantitative 169 H Serum Ketones Negative Influenza Typ A,B (EIA) Blood Type Antibody Screen 08/03/17 08/03/17 08/03/17 11:20 12:12 13:04 WBC RBC Hgb Hct MCV MCH MCHC RDW Plt Count MPV Neut % (Auto) Lymph % (Auto) [place] % (Auto) Eos % (Auto) Baso % (Auto) Neut # (Auto) Lymph # (Auto) [place] # (Auto) Eos # (Auto) Baso # (Auto) Differential Comment PT INR APTT Sodium Potassium Chloride Carbon Dioxide Anion Gap BUN Creatinine Est GFR ( Amer) Est GFR (Non-Af Amer) POC Glucose (mg/dL) Random Glucose Lactic Acid Calcium Total Bilirubin AST ALT Alkaline Phosphatase Ammonia 93 H D Troponin I Total Protein Albumin Globulin Albumin/Globulin Ratio Alcohol, Quantitative Serum Ketones Influenza Typ A,B (EIA) Negative for flu a/b Blood Type AB POSITIVE Antibody Screen Negative 08/03/17 08/03/17 13:09 15:20 WBC RBC Hgb Hct MCV MCH MCHC RDW Plt Count MPV Neut % (Auto) Lymph % (Auto) [place] % (Auto) Eos % (Auto) Baso % (Auto) Neut # (Auto) Lymph # (Auto) [place] # (Auto) Eos # (Auto) Baso # (Auto) Differential Comment PT INR APTT Sodium Potassium Chloride Carbon Dioxide Anion Gap BUN Creatinine Est GFR ( Amer) Est GFR (Non-Af Amer) POC Glucose (mg/dL) 194 H Random Glucose Lactic Acid 10.9 H* Calcium Total Bilirubin AST ALT Alkaline Phosphatase Ammonia Troponin I Total Protein Albumin Globulin Albumin/Globulin Ratio Alcohol, Quantitative Serum Ketones Influenza Typ A,B (EIA) Blood Type Antibody Screen Assessment & Plan - Assessment and Plan (Free Text) Assessment: 41 year old male with a past medical history of diabetes, asthma, hypertension, liver disease, etoh abuse, hypercholesterolemia, psoriasis, and withdrawal seizures who presents after syncopal episode and GI bleeding in the setting of severe sepsis. Patient was admitted to ICU for severe sepsis and GI bleed. Plan: Infectious Disease: Sever sepsis Lactate ringer 1 Liter bolus Zosyn 3.375mg Q8H Vancomycin 1 g Q24H Blood cultures. Will f/u with results Urine cultures. Will f/u with results Lactic acid level Beta-hydroxybutyrate level Drug toxicology panel Gastroenterology:Liver disease, GI bleeding, Hyperbilirubinemia Octreotide 1250mcg q24h. 1 Liter lactated ringer bolus GI consulted. Recommendations appreciated. Abdominal/ renal ultrasound ordered. Will f/u with results. Lactulose 20mg PO Q12H. Hematology: h/o Anemia Hemoglobin upon admission 7.3 Repeat Hemoglobin 6.5 Transfuse 2 units of Packed red blood cells. Consider another transfusion if hemoglobin drops below 7 again. Will monitor H/H with serial CMP's. Endocrinology: h/o Type 2 Diabetes mellitus -Home Metformin held. -ISS -Accuchecks ACHS -NPO diet Psychiatry: alcohol abuse, depression Librium 25mg PO8 Zoloft 100mg PO BID Lexapro 10mg PO Daily Thiamine 200mg PO Q8 Niacin 250mg Q12. PPX -Protonix 40mg Daily <Lian Lind - Last Filed: 08/03/17 17:43> Meds - Medications Medications: Current Medications Chlordiazepoxide (Librium) 25 mg PO Q8 PRN PRN Reason: Anxiety Last Admin: 08/03/17 16:05 Dose: 25 mg Octreotide Acetate 1,250 mcg/ (Sodium Chloride) 252.5 mls @ 10.1 mls/hr IV .Q24H FLY; 50 MCG/HR PRN Reason: Protocol Last Admin: 08/03/17 13:35 Dose: 10.1 mls/hr Piperacillin Sod/Tazobactam (Sod 3.375 gm/ Sodium Chloride) 100 mls @ 200 mls/ hr IVPB Q8H FLY PRN Reason: Protocol Last Admin: 08/03/17 15:57 Dose: 200 mls/hr Lactated Ringer's (Lactated Ringer's) 1,000 mls @ 1,000 mls/hr IV .Q1H FLY Last Admin: 08/03/17 16:03 Dose: Not Given Lactated Ringer's (Lactated Ringer's) 1,000 mls @ 1,000 mls/hr IV .Q1H ONE Stop: 08/03/17 17:45 Sodium Chloride (Sodium Chloride 0.9%) 1,000 mls @ 125 mls/hr IV .Q8H FLY Vancomycin/Sodium Chloride (Vancomycin 1 Gm/Ns 200 Ml) 1 gm in 200 mls @ 133 mls/hr IVPB Q24H FLY Stop: 08/09/17 14:01 Lactulose (Enulose) 20 gm PO Q12 [facility] Last Admin: 08/03/17 15:59 Dose: 20 gm Multivitamins/Vitamin C (Multi-Delyn Liquid) 5 ml PO DAILY [facility] Niacin (Niacin) 250 mg PO Q12 [facility] Last Admin: 08/03/17 14:18 Dose: 250 mg Pantoprazole Sodium (Protonix Inj) 40 mg IVP Q12H FLY Thiamine HCl (Vitamin B1 Inj) 200 mg IV Q8H [facility] Last Admin: 08/03/17 14:25 Dose: 200 mg Results - Vital Signs Recent Vital Signs: Last Vital Signs Temp 98.3 F 08/03/17 10:20 Pulse 111 H 08/03/17 17:19 Resp 21 08/03/17 17:19 BP 139/83 08/03/17 17:19 Pulse Ox 100 08/03/17 17:20 - Labs Result Diagrams: 08/03/17 17:13 08/03/17 17:13 Labs: Laboratory Results - last 24 hr 08/03/17 08/03/17 08/03/17 11:20 11:20 11:20 WBC 5.7 RBC 2.53 L Hgb 7.3 L D Hct 22.4 L MCV 88.5 MCH 28.6 MCHC 32.4 L RDW 19.3 H Plt Count 90 L MPV 7.0 L Neut % (Auto) 52.9 Lymph % (Auto) 28.7 [place] % (Auto) 14.1 H Eos % (Auto) 1.7 Baso % (Auto) 2.6 H Neut # (Auto) 3.0 Lymph # (Auto) 1.6 [place] # (Auto) 0.8 Eos # (Auto) 0.1 Baso # (Auto) 0.1 Differential Comment PT 19.7 H INR 1.7 APTT 42 H Sodium 142 Potassium 4.0 Chloride 99 Carbon Dioxide 16 L Anion Gap 31 H BUN 14 Creatinine 1.7 H Est GFR ( Amer) 54 Est GFR (Non-Af Amer) 45 POC Glucose (mg/dL) Random Glucose 181 H Lactic Acid Calcium 7.4 L Phosphorus Magnesium Total Bilirubin 2.1 H AST 185 H ALT 55 Alkaline Phosphatase 131 H Ammonia Troponin I 0.0390 Total Protein 6.3 Albumin 2.5 L D Globulin 3.8 Albumin/Globulin Ratio 0.7 L Alcohol, Quantitative 169 H Serum Ketones Negative Influenza Typ A,B (EIA) Blood Type Antibody Screen 08/03/17 08/03/17 08/03/17 11:20 12:12 13:04 WBC RBC Hgb Hct MCV MCH MCHC RDW Plt Count MPV Neut % (Auto) Lymph % (Auto) [place] % (Auto) Eos % (Auto) Baso % (Auto) Neut # (Auto) Lymph # (Auto) [place] # (Auto) Eos # (Auto) Baso # (Auto) Differential Comment PT INR APTT Sodium Potassium Chloride Carbon Dioxide Anion Gap BUN Creatinine Est GFR ( Amer) Est GFR (Non-Af Amer) POC Glucose (mg/dL) Random Glucose Lactic Acid Calcium Phosphorus Magnesium Total Bilirubin AST ALT Alkaline Phosphatase Ammonia 93 H D Troponin I Total Protein Albumin Globulin Albumin/Globulin Ratio Alcohol, Quantitative Serum Ketones Influenza Typ A,B (EIA) Negative for flu a/b Blood Type AB POSITIVE Antibody Screen Negative 08/03/17 08/03/17 08/03/17 13:09 15:20 16:17 WBC RBC Hgb Hct MCV MCH MCHC RDW Plt Count MPV Neut % (Auto) Lymph % (Auto) [place] % (Auto) Eos % (Auto) Baso % (Auto) Neut # (Auto) Lymph # (Auto) [place] # (Auto) Eos # (Auto) Baso # (Auto) Differential Comment PT INR APTT Sodium Potassium Chloride Carbon Dioxide Anion Gap BUN Creatinine Est GFR ( Amer) Est GFR (Non-Af Amer) POC Glucose (mg/dL) 194 H Random Glucose Lactic Acid 10.9 H* 8.0 H* Calcium Phosphorus Magnesium Total Bilirubin AST ALT Alkaline Phosphatase Ammonia Troponin I Total Protein Albumin Globulin Albumin/Globulin Ratio Alcohol, Quantitative Serum Ketones Influenza Typ A,B (EIA) Blood Type Antibody Screen 08/03/17 08/03/17 08/03/17 17:13 17:13 17:13 WBC 6.0 RBC 2.26 L Hgb 6.5 L* Hct 19.7 L MCV 87.3 MCH 29.0 MCHC 33.2 RDW 18.9 H Plt Count 59 L D MPV 6.8 L Neut % (Auto) 49.3 L Lymph % (Auto) 33.4 [place] % (Auto) 15.3 H Eos % (Auto) 0.6 Baso % (Auto) 1.4 Neut # (Auto) 3.0 Lymph # (Auto) 2.0 [place] # (Auto) 0.9 H Eos # (Auto) 0.0 Baso # (Auto) 0.1 Differential Comment PT INR APTT Sodium 139 Potassium 4.3 Chloride 102 Carbon Dioxide 21 L Anion Gap 20 BUN 13 Creatinine 1.5 Est GFR ( Amer) > 60 Est GFR (Non-Af Amer) 52 POC Glucose (mg/dL) Random Glucose 151 H Lactic Acid Calcium 7.2 L Phosphorus 4.2 Magnesium 1.3 L Total Bilirubin 2.5 H AST 193 H ALT 58 Alkaline Phosphatase 111 Ammonia Troponin I Total Protein 6.4 Albumin 2.4 L Globulin 4.0 H Albumin/Globulin Ratio 0.6 L Alcohol, Quantitative Serum Ketones Influenza Typ A,B (EIA) Blood Type Antibody Screen Assessment & Plan - Assessment and Plan (Free Text) Plan: Above patient seen and examiend at bedside. Patient with h/o etoh abuse, cirrhosis, psoriasis presents to [facility] with chills, shivers and tachycardia dx with sepsis -above resident note reviewed and verified. Patient to continue empirical abx for sepsis -Acute blood loss anemia: contnue to montor hb/hct transfuse to keep hb/hct >8/ 24 -DTs: continue oral librium -continue supplemental MVI/thiamin/folate -dvt ppx scds -pud ppx protonix Patient will benefit from ICU level care until hemodynamically stable. cc time 45 minutes. - Date & Time Date: 08/03/17 Time: 17:43
[2017-08-03 17:18] LABS: BASO # 0.1 K/uL (0.0-0.2); BASO % 1.4 % (0.0-2.0); EOS % 0.6 % (0.0-4.0); LYMPH % 33.4 % (20.0-40.0); MEAN CELL VOLUME 87.3 fL (80.0-94.0); MEAN CORPUSCULAR HGB CONC 33.2 g/dL (33.0-37.0); MEAN PLATELET VOLUME 6.8 fL (7.2-11.7); MONO # 0.9 K/uL (0.0-0.8); MONO % 15.3 % (0.0-10.0); NEUT % 49.3 % (50.0-75.0); NRBC % 0.2 % (0.0-2.0); RBC 2.26 Mil/uL (4.40-5.90); RED CELL DISTRIBUTION WIDTH 18.9 % (11.5-14.5)
[2017-08-03 17:25] LABS: HEMOGLOBIN 6.5 g/dL (12.0-18.0)
[2017-08-03 17:32] LABS: ALB/GLOB RATIO 0.6 (1.0-2.1); ALBUMIN 2.4 g/dL (3.5-5.0); ALT/SGPT 58 U/L (21-72); AST/SGOT 193 U/L (17-59); BLOOD UREA NITROGEN 13 mg/dL (9-20); CALCIUM 7.2 mg/dl (8.6-10.4); GFR AFRICAN-AMERICAN > 60; GFR NON-AFRICAN AMERICAN 52
--- NOTE | 2017-08-03 17:41 | US ---
Limited abdomen/renal ultrasound Indication: High T bili Comparison: None available. Findings: The liver appears measures approximately 16.2 cm. Echogenic liver may be seen in setting of hepatic parenchymal disease or fatty infiltration. Nodular hepatic contour. The main portal vein appears patent with normal directional flow. Question presence of recannulated umbilical vein. The common bile duct appears dilated measuring approximately 8 mm. There is no evidence of intrahepatic ductal dilatation. Gallstones. No gallbladder wall thickening or pericholecystic edema. Negative sonographic Cat's sign as assessed by the automotive parts salesperson. The pancreas was not visualized. The right kidney measures 13.0 x 5.0 x 5.4 cm and is without evidence of stones or hydronephrosis. The left kidney measures 13.4 x 6.4 x 6.1 cm and is without evidence of stones or hydronephrosis. The spleen measures approximately 12.4 cm. Limited visualized abdominal aorta and IVC appear grossly unremarkable. Impression: Nodular hepatic contour. Question presence of recannulated umbilical vein. Correlate clinically for cirrhosis. Echogenic liver may be seen in setting of hepatic parenchymal disease or fatty infiltration. Dilated common bile duct. Cholelithiasis. Borderline splenomegaly.
[2017-08-03] MEDS: Sodium Chloride 0.9% 1,000 ML IV SCH (17:49)
--- NOTE | 2017-08-03 23:15 | CP.PCM.HP ---
History of Present Illness - History of Present Illness History of Present Illness: chief concern: Rectal bleeding HPI: Patient is a 41yo male with past medical history of hypertension, alcohol- induced liver cirrhosis, hypertension, diabetes, psoriasis that presented with complaints of rectal bleeding over the last 3 weeks. He reported that over the last 2-3 weeks he has had flu-like symptoms including malaise and chills. He reported having went to his PMD, who had prescribed an antibiotic. He stated that his rectal bleeding was intermittent, bright red and with stool in small amounts. He is a daily drinker with approximately 1-2 pints of vodka per day. His last reported drink was 3 days prior however he admits that he may have had a drink prior to presentation. Patient had been taking lactulose for his liver cirrhosis however ran out 3 months prior. Patient denied chest pain, palpitations, SOB, abdominal pain, vomiting, focal weakness, numbness, tingling. The patient was seen by me in my office, at the time patient was doing extremely well, he was not drinking alcohol for quite some time. Patient was able to manage his medications well. He was able to control his sugar better. But he had a somewhat family issues, he started drinking alcohol for the last 3 days, and he was having chronic rectal bleeding. Gotten worse recently. PMHx: as stated above PSHx: history of endoscopy/colonoscopy Allergies: NKDA Family hx: Father: history of heart transplant; Mother: hypertension/diabetes Social Hx: Daily alcohol consumption (~1pint of vodka per day), denies illicit drug use and former tobacco use Endoscopy hx: Endoscopy/Colonoscopy completed in 10/2015 - revealed grade 1 esophageal varices, LA Grade B Esophagitis, internal hemorrhoids, edema of the ascending colon ROS: the chart Vital signs reviewed No neck vein distention noted Chest good air entry bilaterally, no wheezing or rales noted CVS regular heart sound, no murmur noted abdominal distention noted pedal edema noted 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 patient overall prognosis is very poor, will continue the IICU monitoring. GI consultation Blood transfusion Protonix Octreotide as needed. Before the patient Present on Admission - Present on Admission Any Indicators Present on Admission: No History of DVT/PE: No History of Uncontrolled Diabetes: No Urinary Catheter: No Decubitus Ulcer Present: No Past Patient History - Infectious Disease Hx of Infectious Diseases: None - Past Medical History & Family History Past Medical History?: Yes - Past Social History Smoking Status: Never Smoked - CARDIAC Hx Congestive Heart Failure: Yes Hx Hypercholesterolemia: Yes Hx Hypertension: Yes - PULMONARY Hx Asthma: Yes Hx Pneumonia: Yes - NEUROLOGICAL Hx Seizures: Yes (etoh induced) - HEENT Hx HEENT Problems: No - RENAL Hx Chronic Kidney Disease: No - ENDOCRINE/METABOLIC Hx Endocrine Disorders: Yes Hx Diabetes Mellitus Type 2: Yes - HEMATOLOGICAL/ONCOLOGICAL Hx Anemia: Yes Hx Human Immunodeficiency Virus (HIV): No - INTEGUMENTARY Hx Dermatological Problems: Yes Hx Psoriasis: Yes Other/Comment: Psoriatic Arthritis - MUSCULOSKELETAL/RHEUMATOLOGICAL Hx Arthritis: Yes Hx Rheumatoid Arthritis: Yes - GASTROINTESTINAL Other/Comment: Liver disease - GENITOURINARY/GYNECOLOGICAL Hx Sexually Transmitted Disorders: No - PSYCHIATRIC Hx Anxiety: Yes Hx Depression: Yes Hx Substance Use: No - SURGICAL HISTORY Hx Surgeries: Yes - ANESTHESIA Hx Anesthesia: Yes Hx Anesthesia Reactions: No Hx Malignant Hyperthermia: No Meds Allergies/Adverse Reactions: Allergies Allergy/AdvReac Type Severity Reaction Status Date / Time No Known Allergies Allergy Verified 08/03/17 17:50 Results - Vital Signs Recent Vital Signs: Last Vital Signs Temp 98.8 F 08/03/17 19:41 Pulse 110 H 08/03/17 19:41 Resp 25 H 08/03/17 19:41 BP 157/79 H 08/03/17 19:41 Pulse Ox 96 08/03/17 19:40 - Labs Result Diagrams: 08/03/17 17:13 08/03/17 17:13 Labs: Laboratory Results - last 24 hr 08/03/17 08/03/17 08/03/17 11:20 11:20 11:20 WBC 5.7 RBC 2.53 L Hgb 7.3 L D Hct 22.4 L MCV 88.5 MCH 28.6 MCHC 32.4 L RDW 19.3 H Plt Count 90 L MPV 7.0 L Neut % (Auto) 52.9 Lymph % (Auto) 28.7 [place] % (Auto) 14.1 H Eos % (Auto) 1.7 Baso % (Auto) 2.6 H Neut # (Auto) 3.0 Lymph # (Auto) 1.6 [place] # (Auto) 0.8 Eos # (Auto) 0.1 Baso # (Auto) 0.1 Differential Comment PT 19.7 H INR 1.7 APTT 42 H Sodium 142 Potassium 4.0 Chloride 99 Carbon Dioxide 16 L Anion Gap 31 H BUN 14 Creatinine 1.7 H Est GFR ( Amer) 54 Est GFR (Non-Af Amer) 45 POC Glucose (mg/dL) Random Glucose 181 H Lactic Acid Calcium 7.4 L Phosphorus Magnesium Total Bilirubin 2.1 H AST 185 H ALT 55 Alkaline Phosphatase 131 H Ammonia Troponin I 0.0390 Total Protein 6.3 Albumin 2.5 L D Globulin 3.8 Albumin/Globulin Ratio 0.7 L Alcohol, Quantitative 169 H Serum Ketones Negative Influenza Typ A,B (EIA) Blood Type Antibody Screen 08/03/17 08/03/17 08/03/17 11:20 12:12 13:04 WBC RBC Hgb Hct MCV MCH MCHC RDW Plt Count MPV Neut % (Auto) Lymph % (Auto) [place] % (Auto) Eos % (Auto) Baso % (Auto) Neut # (Auto) Lymph # (Auto) [place] # (Auto) Eos # (Auto) Baso # (Auto) Differential Comment PT INR APTT Sodium Potassium Chloride Carbon Dioxide Anion Gap BUN Creatinine Est GFR ( Amer) Est GFR (Non-Af Amer) POC Glucose (mg/dL) Random Glucose Lactic Acid Calcium Phosphorus Magnesium Total Bilirubin AST ALT Alkaline Phosphatase Ammonia 93 H D Troponin I Total Protein Albumin Globulin Albumin/Globulin Ratio Alcohol, Quantitative Serum Ketones Influenza Typ A,B (EIA) Negative for flu a/b Blood Type AB POSITIVE Antibody Screen Negative 08/03/17 08/03/17 08/03/17 13:09 15:20 16:17 WBC RBC Hgb Hct MCV MCH MCHC RDW Plt Count MPV Neut % (Auto) Lymph % (Auto) [place] % (Auto) Eos % (Auto) Baso % (Auto) Neut # (Auto) Lymph # (Auto) [place] # (Auto) Eos # (Auto) Baso # (Auto) Differential Comment PT INR APTT Sodium Potassium Chloride Carbon Dioxide Anion Gap BUN Creatinine Est GFR ( Amer) Est GFR (Non-Af Amer) POC Glucose (mg/dL) 194 H Random Glucose Lactic Acid 10.9 H* 8.0 H* Calcium Phosphorus Magnesium Total Bilirubin AST ALT Alkaline Phosphatase Ammonia Troponin I Total Protein Albumin Globulin Albumin/Globulin Ratio Alcohol, Quantitative Serum Ketones Influenza Typ A,B (EIA) Blood Type Antibody Screen 08/03/17 08/03/17 08/03/17 17:13 17:13 17:13 WBC 6.0 RBC 2.26 L Hgb 6.5 L* Hct 19.7 L MCV 87.3 MCH 29.0 MCHC 33.2 RDW 18.9 H Plt Count 59 L D MPV 6.8 L Neut % (Auto) 49.3 L Lymph % (Auto) 33.4 [place] % (Auto) 15.3 H Eos % (Auto) 0.6 Baso % (Auto) 1.4 Neut # (Auto) 3.0 Lymph # (Auto) 2.0 [place] # (Auto) 0.9 H Eos # (Auto) 0.0 Baso # (Auto) 0.1 Differential Comment PT INR APTT Sodium 139 Potassium 4.3 Chloride 102 Carbon Dioxide 21 L Anion Gap 20 BUN 13 Creatinine 1.5 Est GFR ( Amer) > 60 Est GFR (Non-Af Amer) 52 POC Glucose (mg/dL) Random Glucose 151 H Lactic Acid Calcium 7.2 L Phosphorus 4.2 Magnesium 1.3 L Total Bilirubin 2.5 H AST 193 H ALT 58 Alkaline Phosphatase 111 Ammonia Troponin I Total Protein 6.4 Albumin 2.4 L Globulin 4.0 H Albumin/Globulin Ratio 0.6 L Alcohol, Quantitative Serum Ketones Influenza Typ A,B (EIA) Blood Type Antibody Screen 08/03/17 21:35 WBC RBC Hgb Hct MCV MCH MCHC RDW Plt Count MPV Neut % (Auto) Lymph % (Auto) [place] % (Auto) Eos % (Auto) Baso % (Auto) Neut # (Auto) Lymph # (Auto) [place] # (Auto) Eos # (Auto) Baso # (Auto) Differential Comment PT INR APTT Sodium Potassium Chloride Carbon Dioxide Anion Gap BUN Creatinine Est GFR ( Amer) Est GFR (Non-Af Amer) POC Glucose (mg/dL) Random Glucose Lactic Acid 6.2 H* Calcium Phosphorus Magnesium Total Bilirubin AST ALT Alkaline Phosphatase Ammonia Troponin I Total Protein Albumin Globulin Albumin/Globulin Ratio Alcohol, Quantitative Serum Ketones Influenza Typ A,B (EIA) Blood Type Antibody Screen
[2017-08-04] MEDS: Sodium Chloride 0.9% 1,000 ML IV SCH ×2 (05:00→10:42)
[2017-08-04] MEDS: Piperacillin/Tazobact 3.375 GM in Sodium Chloride 100 ML IVPB SCH ×3 (06:00→22:10)
[2017-08-04] MEDS: Thiamine 100 mg/ml Inj IV SCH ×3 (06:15→22:20)
[2017-08-04 06:26] LABS: BASO # 0.1 K/uL (0.0-0.2); BASO % 1.9 % (0.0-2.0); EOS # 0.1 K/uL (0.0-0.7); EOS % 2.3 % (0.0-4.0); LYMPH # 1.7 K/uL (1.0-4.3); LYMPH % 31.2 % (20.0-40.0); MEAN CELL VOLUME 84.9 fL (80.0-94.0); MEAN CORPUSCULAR HGB CONC 34.1 g/dL (33.0-37.0); MEAN PLATELET VOLUME 7.5 fL (7.2-11.7); MONO # 0.9 K/uL (0.0-0.8); MONO % 16.8 % (0.0-10.0); NEUT # 2.6 K/uL (1.8-7.0); NEUT % 47.8 % (50.0-75.0); RBC 2.75 Mil/uL (4.40-5.90); RED CELL DISTRIBUTION WIDTH 17.9 % (11.5-14.5); WHITE BLOOD COUNT 5.4 K/uL (4.8-10.8)
[2017-08-04 06:36] LABS: ALB/GLOB RATIO 0.6 (1.0-2.1); ALBUMIN 2.3 g/dL (3.5-5.0); ALT/SGPT 58 U/L (21-72); AST/SGOT 190 U/L (17-59); BLOOD UREA NITROGEN 14 mg/dL (9-20); CALCIUM 7.5 mg/dl (8.6-10.4); GFR AFRICAN-AMERICAN > 60; GFR NON-AFRICAN AMERICAN 56
[2017-08-04 07:03] LABS: SQUAMOUS EPITHIAL < 1 /hpf (0-5); URINE BILIRUBIN NEGATIVE (NEGATIVE); URINE BLOOD NEGATIVE (NEGATIVE); URINE CLARITY Clear (Clear); URINE COLOR Yellow (YELLOW); URINE GLUCOSE (UA) NORMAL (Normal); URINE LEUKOCYTE ESTERASE NEG Leu/uL (Negative); URINE PROTEIN NEGATIVE (NEGATIVE); URINE UROBILINOGEN NORMAL mg/dL (0.2-1.0)
[2017-08-04] MEDS: Magnesium Sulfate 1 gm in D5W 1 GM/100 ML BAG IVPB SCH ×2 (08:13→09:40)
--- NOTE | 2017-08-04 10:18 | CP.CCUPN ---
<[place] - Last Filed: 08/04/17 13:04> CCU Subjective - Physician Review Subjective (Free Text): 08/04/17 10:15 Patient seen and examined at bedside. Per nursing no acute events occurred overnight. Critical Care Time Spent (in minutes): 45 CCU Objective - Vital Signs / Intake & Output Vital Signs (Last 4 hours): Vital Signs Temp Pulse Resp BP Pulse Ox 08/04/17 09:00 127 H 19 99 08/04/17 08:30 117 H 17 99 08/04/17 08:18 103 H 15 163/96 H 99 08/04/17 08:00 98.2 F 103 H 18 99 08/04/17 07:48 103 H 18 163/97 H 97 08/04/17 07:30 112 H 18 99 08/04/17 07:18 153 H 14 169/92 H 100 08/04/17 07:00 97 H 22 99 08/04/17 06:30 107 H 21 99 Intake and Output (Last 8hrs): Intake & Output 08/03/17 08/04/17 08/04/17 22:59 06:59 14:59 Intake Total 2403.6 1080.8 380.3 Output Total 250 750 220 Balance 2153.6 330.8 160.3 Weight 200 lb 200 lb Intake: Intake, IV Amount 2058.6 655.8 380.3 Left Antecubital 1998 575 125 Left Wrist 60.6 80.8 30.3 Right Wrist 225 Oral 0 0 Blood Product 325 325 Red Blood Cells Cpd As1 325 Lr Unit [id number] Red Blood Cells Cpd As1 325 Lr Unit [id number] Other 20 100 Red Blood Cells Cpd As1 20 Lr Unit [id number] Red Blood Cells Cpd As1 100 Lr Unit [id number] Output: Urine 300 120 Urine, Voided 300 120 Stool 450 Urine/Stool Mix 250 100 Emesis 0 Other: Voiding Method Bedpan # Voids Urine, Voided 0 1 1 # Bowel Movements 1 1 0 - Physical Exam Head: Positive for: Atraumatic, Normocephalic. Negative for: Tenderness Pupils: Positive for: PERRL. Negative for: Non-Reactive Extroacular Muscles: Positive for: EOMI. Negative for: Entrapment Conjunctiva: Positive for: Normal. Negative for: Icteric Ears: Negative for: Erythema Mouth: Positive for: Moist Mucous Membranes. Negative for: Drooling Pharnyx: Negative for: Uvular Deviation Neck: Positive for: Normal Range of Motion. Negative for: Meningeal Signs, JVD , Lymphadenopathy Respiratory/Chest: Positive for: Clear to Auscultation, Good Air Exchange. Negative for: Respiratory Distress Cardiovascular: Positive for: Regular Rate and Rhythm, Normal S1, S2. Negative for: Murmurs, Tachycardic, Bradycardic Abdomen: Negative for: [place] Tender Back: Negative for: CVA Tenderness, Midline Tenderness, Paraspinal Tenderness Upper Extremity: Positive for: Normal Inspection, Cyanosis. Negative for: Edema Lower Extremity: Positive for: Normal Inspection Neurological: Negative for: CN II-XII Intact, Speech Normal Skin: Positive for: Warm, Dry. Negative for: Rashes, Normal Color Psychiatric: Positive for: Alert, Oriented x 3. Negative for: Normal Insight, Normal Concentration - Medications Active Medications: Active Medications Generic Name Dose Route Start Last Admin Trade Name Freq PRN Reason Stop Dose Admin Chlordiazepoxide 25 mg 08/03/17 15:48 08/03/17 16:05 Librium PO 25 mg Q8 PRN Administration Anxiety Octreotide Acetate 1,250 mcg/ 252.5 mls @ 10.1 mls/hr 08/03/17 13:30 13:35 Sodium Chloride IV 10.1 mls/hr .Q24H FLY Administration Protocol 50 MCG/HR Piperacillin Sod/Tazobactam 100 mls @ 200 mls/hr 08/03/17 14:30 08/04/17 06: 00 Sod 3.375 gm/ Sodium Chloride IVPB 200 mls/hr Q8H FLY Administration Protocol Lactulose 20 gm 08/03/17 14:30 08/03/17 22:00 Enulose PO 20 gm Q12 FLY Administration Multivitamins/Vitamin C 5 ml 08/04/17 10:00 Multi-Delyn Liquid PO DAILY FLY Niacin 250 mg 08/03/17 13:30 08/03/17 22:00 Niacin PO 250 mg Q12 FLY Administration Pantoprazole Sodium 40 mg 08/03/17 21:00 08/03/17 22:00 Protonix Inj IVP 40 mg Q12H FLY Administration Phytonadione 1 mg 08/04/17 10:11 Vitamin K IM 08/04/17 10:12 ONCE ONE Thiamine HCl 200 mg 08/03/17 13:30 08/04/17 06:15 Vitamin B1 Inj IV 200 mg Q8H FLY Administration - Patient Studies Lab Studies: Lab Studies 08/04/17 08/04/17 08/04/17 Range/Units 06:54 06:19 06:17 WBC 5.4 (4.8-10.8) K/uL RBC 2.75 L (4.40-5.90) Mil/uL Hgb 8.0 L (12.0-18.0) g/dL Hct 23.3 L (35.0-51.0) % MCV 84.9 D (80.0-94.0) fL MCH 29.0 (27.0-31.0) pg MCHC 34.1 (33.0-37.0) g/dL RDW 17.9 H (11.5-14.5) % Plt Count 51 L (130-400) K/uL MPV 7.5 (7.2-11.7) fL Neut % (Auto) 47.8 L (50.0-75.0) % Lymph % (Auto) 31.2 (20.0-40.0) % Bowie % (Auto) 16.8 H (0.0-10.0) % Eos % (Auto) 2.3 (0.0-4.0) % Baso % (Auto) 1.9 (0.0-2.0) % Neut # (Auto) 2.6 (1.8-7.0) K/uL Lymph # (Auto) 1.7 (1.0-4.3) K/uL Bowie # (Auto) 0.9 H (0.0-0.8) K/uL Eos # (Auto) 0.1 (0.0-0.7) K/uL Baso # (Auto) 0.1 (0.0-0.2) K/uL Differential Comment PT (9.7-12.2) SECONDS INR APTT (21-34) SECONDS Sodium 141 (132-148) mmol/L Potassium 4.1 (3.6-5.2) mmol/L Chloride 103 (98-107) mmol/L Carbon Dioxide 25 (22-30) mmol/L Anion Gap 17 (10-20) BUN 14 (9-20) mg/dL Creatinine 1.4 (0.8-1.5) mg/dL Est GFR ( Amer) > 60 Est GFR (Non-Af Amer) 56 POC Glucose (mg/dL) (65-110) mg/dL Random Glucose 171 H (75-110) mg/dL Lactic Acid (0.7-2.1) mmol/L Calcium 7.5 L (8.6-10.4) mg/dl Phosphorus 3.6 (2.5-4.5) mg/dL Magnesium 1.3 L (1.6-2.3) mg/dL Total Bilirubin 3.2 H (0.2-1.3) mg/dL AST 190 H (17-59) U/L ALT 58 (21-72) U/L Alkaline Phosphatase 97 (38-126) U/L Ammonia (9-33) umol/L Troponin I (0.00-0.120) ng/mL Total Protein 6.4 (6.3-8.3) g/dL Albumin 2.3 L (3.5-5.0) g/dL Globulin 4.1 H (2.2-3.9) gm/dL Albumin/Globulin Ratio 0.6 L (1.0-2.1) Urine Color Yellow (YELLOW) Urine Clarity Clear (Clear) Urine pH 8.0 (5.0-8.0) Ur Specific [place] 1.015 (1.003-1.030) Urine Protein Negative (NEGATIVE) mg/dL Urine Glucose (UA) Normal (Normal) mg/dL Urine Ketones Negative (NEGATIVE) mg/dL Urine Blood Negative (NEGATIVE) Urine Nitrate Negative (NEGATIVE) Urine Bilirubin Negative (NEGATIVE) Urine Urobilinogen Normal (0.2-1.0) mg/dL Ur Leukocyte Esterase Neg (Negative) Lexie/uL Urine WBC (Auto) 1 (0-5) /hpf Urine RBC (Auto) 1 (0-3) /hpf Ur Squamous Epith Cells < 1 (0-5) /hpf Random Vancomycin ug/mL Alcohol, Quantitative (0-10) mg/dl Serum Ketones (NEGATIVE) Influenza Typ A,B (EIA) (NEGATIVE) Blood Type Antibody Screen 08/04/17 08/04/17 08/04/17 Range/Units 06:17 06:10 01:31 WBC (4.8-10.8) K/uL RBC (4.40-5.90) Mil/uL Hgb (12.0-18.0) g/dL Hct (35.0-51.0) % MCV (80.0-94.0) fL MCH (27.0-31.0) pg MCHC (33.0-37.0) g/dL RDW (11.5-14.5) % Plt Count (130-400) K/uL MPV (7.2-11.7) fL Neut % (Auto) (50.0-75.0) % Lymph % (Auto) (20.0-40.0) % Bowie % (Auto) (0.0-10.0) % Eos % (Auto) (0.0-4.0) % Baso % (Auto) (0.0-2.0) % Neut # (Auto) (1.8-7.0) K/uL Lymph # (Auto) (1.0-4.3) K/uL Bowie # (Auto) (0.0-0.8) K/uL Eos # (Auto) (0.0-0.7) K/uL Baso # (Auto) (0.0-0.2) K/uL Differential Comment PT (9.7-12.2) SECONDS INR APTT (21-34) SECONDS Sodium (132-148) mmol/L Potassium (3.6-5.2) mmol/L Chloride (98-107) mmol/L Carbon Dioxide (22-30) mmol/L Anion Gap (10-20) BUN (9-20) mg/dL Creatinine (0.8-1.5) mg/dL Est GFR ( Amer) Est GFR (Non-Af Amer) POC Glucose (mg/dL) 225 H 152 H (65-110) mg/dL Random Glucose (75-110) mg/dL Lactic Acid (0.7-2.1) mmol/L Calcium (8.6-10.4) mg/dl Phosphorus (2.5-4.5) mg/dL Magnesium (1.6-2.3) mg/dL Total Bilirubin (0.2-1.3) mg/dL AST (17-59) U/L ALT (21-72) U/L Alkaline Phosphatase (38-126) U/L Ammonia (9-33) umol/L Troponin I (0.00-0.120) ng/mL Total Protein (6.3-8.3) g/dL Albumin (3.5-5.0) g/dL Globulin (2.2-3.9) gm/dL Albumin/Globulin Ratio (1.0-2.1) Urine Color (YELLOW) Urine Clarity (Clear) Urine pH (5.0-8.0) Ur Specific [place] (1.003-1.030) Urine Protein (NEGATIVE) mg/dL Urine Glucose (UA) (Normal) mg/dL Urine Ketones (NEGATIVE) mg/dL Urine Blood (NEGATIVE) Urine Nitrate (NEGATIVE) Urine Bilirubin (NEGATIVE) Urine Urobilinogen (0.2-1.0) mg/dL Ur Leukocyte Esterase (Negative) Lexie/uL Urine WBC (Auto) (0-5) /hpf Urine RBC (Auto) (0-3) /hpf Ur Squamous Epith Cells (0-5) /hpf Random Vancomycin 6.17 ug/mL Alcohol, Quantitative (0-10) mg/dl Serum Ketones (NEGATIVE) Influenza Typ A,B (EIA) (NEGATIVE) Blood Type Antibody Screen 08/03/17 08/03/17 08/03/17 Range/Units 21:35 17:13 17:13 WBC 6.0 (4.8-10.8) K/uL RBC 2.26 L (4.40-5.90) Mil/uL Hgb 6.5 L* (12.0-18.0) g/dL Hct 19.7 L (35.0-51.0) % MCV 87.3 (80.0-94.0) fL MCH 29.0 (27.0-31.0) pg MCHC 33.2 (33.0-37.0) g/dL RDW 18.9 H (11.5-14.5) % Plt Count 59 L D (130-400) K/uL MPV 6.8 L (7.2-11.7) fL Neut % (Auto) 49.3 L (50.0-75.0) % Lymph % (Auto) 33.4 (20.0-40.0) % Bowie % (Auto) 15.3 H (0.0-10.0) % Eos % (Auto) 0.6 (0.0-4.0) % Baso % (Auto) 1.4 (0.0-2.0) % Neut # (Auto) 3.0 (1.8-7.0) K/uL Lymph # (Auto) 2.0 (1.0-4.3) K/uL Bowie # (Auto) 0.9 H (0.0-0.8) K/uL Eos # (Auto) 0.0 (0.0-0.7) K/uL Baso # (Auto) 0.1 (0.0-0.2) K/uL Differential Comment PT (9.7-12.2) SECONDS INR APTT (21-34) SECONDS Sodium 139 (132-148) mmol/L Potassium 4.3 (3.6-5.2) mmol/L Chloride 102 (98-107) mmol/L Carbon Dioxide 21 L (22-30) mmol/L Anion Gap 20 (10-20) BUN 13 (9-20) mg/dL Creatinine 1.5 (0.8-1.5) mg/dL Est GFR ( Amer) > 60 Est GFR (Non-Af Amer) 52 POC Glucose (mg/dL) (65-110) mg/dL Random Glucose 151 H (75-110) mg/dL Lactic Acid 6.2 H* (0.7-2.1) mmol/L Calcium 7.2 L (8.6-10.4) mg/dl Phosphorus 4.2 (2.5-4.5) mg/dL Magnesium (1.6-2.3) mg/dL Total Bilirubin 2.5 H (0.2-1.3) mg/dL AST 193 H (17-59) U/L ALT 58 (21-72) U/L Alkaline Phosphatase 111 (38-126) U/L Ammonia (9-33) umol/L Troponin I (0.00-0.120) ng/mL Total Protein 6.4 (6.3-8.3) g/dL Albumin 2.4 L (3.5-5.0) g/dL Globulin 4.0 H (2.2-3.9) gm/dL Albumin/Globulin Ratio 0.6 L (1.0-2.1) Urine Color (YELLOW) Urine Clarity (Clear) Urine pH (5.0-8.0) Ur Specific [place] (1.003-1.030) Urine Protein (NEGATIVE) mg/dL Urine Glucose (UA) (Normal) mg/dL Urine Ketones (NEGATIVE) mg/dL Urine Blood (NEGATIVE) Urine Nitrate (NEGATIVE) Urine Bilirubin (NEGATIVE) Urine Urobilinogen (0.2-1.0) mg/dL Ur Leukocyte Esterase (Negative) Lexie/uL Urine WBC (Auto) (0-5) /hpf Urine RBC (Auto) (0-3) /hpf Ur Squamous Epith Cells (0-5) /hpf Random Vancomycin ug/mL Alcohol, Quantitative (0-10) mg/dl Serum Ketones (NEGATIVE) Influenza Typ A,B (EIA) (NEGATIVE) Blood Type Antibody Screen 08/03/17 08/03/17 08/03/17 Range/Units 17:13 16:17 15:20 WBC (4.8-10.8) K/uL RBC (4.40-5.90) Mil/uL Hgb (12.0-18.0) g/dL Hct (35.0-51.0) % MCV (80.0-94.0) fL MCH (27.0-31.0) pg MCHC (33.0-37.0) g/dL RDW (11.5-14.5) % Plt Count (130-400) K/uL MPV (7.2-11.7) fL Neut % (Auto) (50.0-75.0) % Lymph % (Auto) (20.0-40.0) % Bowie % (Auto) (0.0-10.0) % Eos % (Auto) (0.0-4.0) % Baso % (Auto) (0.0-2.0) % Neut # (Auto) (1.8-7.0) K/uL Lymph # (Auto) (1.0-4.3) K/uL Bowie # (Auto) (0.0-0.8) K/uL Eos # (Auto) (0.0-0.7) K/uL Baso # (Auto) (0.0-0.2) K/uL Differential Comment PT (9.7-12.2) SECONDS INR APTT (21-34) SECONDS Sodium (132-148) mmol/L Potassium (3.6-5.2) mmol/L Chloride (98-107) mmol/L Carbon Dioxide (22-30) mmol/L Anion Gap (10-20) BUN (9-20) mg/dL Creatinine (0.8-1.5) mg/dL Est GFR ( Amer) Est GFR (Non-Af Amer) POC Glucose (mg/dL) 194 H (65-110) mg/dL Random Glucose (75-110) mg/dL Lactic Acid 8.0 H* (0.7-2.1) mmol/L Calcium (8.6-10.4) mg/dl Phosphorus (2.5-4.5) mg/dL Magnesium 1.3 L (1.6-2.3) mg/dL Total Bilirubin (0.2-1.3) mg/dL AST (17-59) U/L ALT (21-72) U/L Alkaline Phosphatase (38-126) U/L Ammonia (9-33) umol/L Troponin I (0.00-0.120) ng/mL Total Protein (6.3-8.3) g/dL Albumin (3.5-5.0) g/dL Globulin (2.2-3.9) gm/dL Albumin/Globulin Ratio (1.0-2.1) Urine Color (YELLOW) Urine Clarity (Clear) Urine pH (5.0-8.0) Ur Specific [place] (1.003-1.030) Urine Protein (NEGATIVE) mg/dL Urine Glucose (UA) (Normal) mg/dL Urine Ketones (NEGATIVE) mg/dL Urine Blood (NEGATIVE) Urine Nitrate (NEGATIVE) Urine Bilirubin (NEGATIVE) Urine Urobilinogen (0.2-1.0) mg/dL Ur Leukocyte Esterase (Negative) Lexie/uL Urine WBC (Auto) (0-5) /hpf Urine RBC (Auto) (0-3) /hpf Ur Squamous Epith Cells (0-5) /hpf Random Vancomycin ug/mL Alcohol, Quantitative (0-10) mg/dl Serum Ketones (NEGATIVE) Influenza Typ A,B (EIA) (NEGATIVE) Blood Type Antibody Screen 08/03/17 08/03/1708/03/18 Range/Units 13:09 13:04 12:12 WBC (4.8-10.8) K/uL RBC (4.40-5.90) Mil/uL Hgb (12.0-18.0) g/dL Hct (35.0-51.0) % MCV (80.0-94.0) fL MCH (27.0-31.0) pg MCHC (33.0-37.0) g/dL RDW (11.5-14.5) % Plt Count (130-400) K/uL MPV (7.2-11.7) fL Neut % (Auto) (50.0-75.0) % Lymph % (Auto) (20.0-40.0) % Bowie % (Auto) (0.0-10.0) % Eos % (Auto) (0.0-4.0) % Baso % (Auto) (0.0-2.0) % Neut # (Auto) (1.8-7.0) K/uL Lymph # (Auto) (1.0-4.3) K/uL Bowie # (Auto) (0.0-0.8) K/uL Eos # (Auto) (0.0-0.7) K/uL Baso # (Auto) (0.0-0.2) K/uL Differential Comment PT (9.7-12.2) SECONDS INR APTT (21-34) SECONDS Sodium (132-148) mmol/L Potassium (3.6-5.2) mmol/L Chloride (98-107) mmol/L Carbon Dioxide (22-30) mmol/L Anion Gap (10-20) BUN (9-20) mg/dL Creatinine (0.8-1.5) mg/dL Est GFR ( Amer) Est GFR (Non-Af Amer) POC Glucose (mg/dL) (65-110) mg/dL Random Glucose (75-110) mg/dL Lactic Acid 10.9 H* (0.7-2.1) mmol/L Calcium (8.6-10.4) mg/dl Phosphorus (2.5-4.5) mg/dL Magnesium (1.6-2.3) mg/dL Total Bilirubin (0.2-1.3) mg/dL AST (17-59) U/L ALT (21-72) U/L Alkaline Phosphatase (38-126) U/L Ammonia 93 H D (9-33) umol/L Troponin I (0.00-0.120) ng/mL Total Protein (6.3-8.3) g/dL Albumin (3.5-5.0) g/dL Globulin (2.2-3.9) gm/dL Albumin/Globulin Ratio (1.0-2.1) Urine Color (YELLOW) Urine Clarity (Clear) Urine pH (5.0-8.0) Ur Specific [place] (1.003-1.030) Urine Protein (NEGATIVE) mg/dL Urine Glucose (UA) (Normal) mg/dL Urine Ketones (NEGATIVE) mg/dL Urine Blood (NEGATIVE) Urine Nitrate (NEGATIVE) Urine Bilirubin (NEGATIVE) Urine Urobilinogen (0.2-1.0) mg/dL Ur Leukocyte Esterase (Negative) Lexie/uL Urine WBC (Auto) (0-5) /hpf Urine RBC (Auto) (0-3) /hpf Ur Squamous Epith Cells (0-5) /hpf Random Vancomycin ug/mL Alcohol, Quantitative (0-10) mg/dl Serum Ketones (NEGATIVE) Influenza Typ A,B (EIA) Negative for flu a/b (NEGATIVE) Blood Type Antibody Screen 08/03/17 08/03/17 08/03/17 Range/Units 11:20 11:20 11:20 WBC (4.8-10.8) K/uL RBC (4.40-5.90) Mil/uL Hgb (12.0-18.0) g/dL Hct (35.0-51.0) % MCV (80.0-94.0) fL MCH (27.0-31.0) pg MCHC (33.0-37.0) g/dL RDW (11.5-14.5) % Plt Count (130-400) K/uL MPV (7.2-11.7) fL Neut % (Auto) (50.0-75.0) % Lymph % (Auto) (20.0-40.0) % Bowie % (Auto) (0.0-10.0) % Eos % (Auto) (0.0-4.0) % Baso % (Auto) (0.0-2.0) % Neut # (Auto) (1.8-7.0) K/uL Lymph # (Auto) (1.0-4.3) K/uL Bowie # (Auto) (0.0-0.8) K/uL Eos # (Auto) (0.0-0.7) K/uL Baso # (Auto) (0.0-0.2) K/uL Differential Comment PT 19.7 H (9.7-12.2) SECONDS INR 1.7 APTT 42 H (21-34) SECONDS Sodium 142 (132-148) mmol/L Potassium 4.0 (3.6-5.2) mmol/L Chloride 99 (98-107) mmol/L Carbon Dioxide 16 L (22-30) mmol/L Anion Gap 31 H (10-20) BUN 14 (9-20) mg/dL Creatinine 1.7 H (0.8-1.5) mg/dL Est GFR ( Amer) 54 Est GFR (Non-Af Amer) 45 POC Glucose (mg/dL) (65-110) mg/dL Random Glucose 181 H (75-110) mg/dL Lactic Acid (0.7-2.1) mmol/L Calcium 7.4 L (8.6-10.4) mg/dl Phosphorus (2.5-4.5) mg/dL Magnesium (1.6-2.3) mg/dL Total Bilirubin 2.1 H (0.2-1.3) mg/dL AST 185 H (17-59) U/L ALT 55 (21-72) U/L Alkaline Phosphatase 131 H (38-126) U/L Ammonia (9-33) umol/L Troponin I 0.0390 (0.00-0.120) ng/mL Total Protein 6.3 (6.3-8.3) g/dL Albumin 2.5 L D (3.5-5.0) g/dL Globulin 3.8 (2.2-3.9) gm/dL Albumin/Globulin Ratio 0.7 L (1.0-2.1) Urine Color (YELLOW) Urine Clarity (Clear) Urine pH (5.0-8.0) Ur Specific [place] (1.003-1.030) Urine Protein (NEGATIVE) mg/dL Urine Glucose (UA) (Normal) mg/dL Urine Ketones (NEGATIVE) mg/dL Urine Blood (NEGATIVE) Urine Nitrate (NEGATIVE) Urine Bilirubin (NEGATIVE) Urine Urobilinogen (0.2-1.0) mg/dL Ur Leukocyte Esterase (Negative) Lexie/uL Urine WBC (Auto) (0-5) /hpf Urine RBC (Auto) (0-3) /hpf Ur Squamous Epith Cells (0-5) /hpf Random Vancomycin ug/mL Alcohol, Quantitative 169 H (0-10) mg/dl Serum Ketones Negative (NEGATIVE) Influenza Typ A,B (EIA) (NEGATIVE) Blood Type AB POSITIVE Antibody Screen Negative 08/03/17 Range/Units 11:20 WBC 5.7 (4.8-10.8) K/uL RBC 2.53 L (4.40-5.90) Mil/uL Hgb 7.3 L D (12.0-18.0) g/dL Hct 22.4 L (35.0-51.0) % MCV 88.5 (80.0-94.0) fL MCH 28.6 (27.0-31.0) pg MCHC 32.4 L (33.0-37.0) g/dL RDW 19.3 H (11.5-14.5) % Plt Count 90 L (130-400) K/uL MPV 7.0 L (7.2-11.7) fL Neut % (Auto) 52.9 (50.0-75.0) % Lymph % (Auto) 28.7 (20.0-40.0) % Bowie % (Auto) 14.1 H (0.0-10.0) % Eos % (Auto) 1.7 (0.0-4.0) % Baso % (Auto) 2.6 H (0.0-2.0) % Neut # (Auto) 3.0 (1.8-7.0) K/uL Lymph # (Auto) 1.6 (1.0-4.3) K/uL Bowie # (Auto) 0.8 (0.0-0.8) K/uL Eos # (Auto) 0.1 (0.0-0.7) K/uL Baso # (Auto) 0.1 (0.0-0.2) K/uL Differential Comment PT (9.7-12.2) SECONDS INR APTT (21-34) SECONDS Sodium (132-148) mmol/L Potassium (3.6-5.2) mmol/L Chloride (98-107) mmol/L Carbon Dioxide (22-30) mmol/L Anion Gap (10-20) BUN (9-20) mg/dL Creatinine (0.8-1.5) mg/dL Est GFR ( Amer) Est GFR (Non-Af Amer) POC Glucose (mg/dL) (65-110) mg/dL Random Glucose (75-110) mg/dL Lactic Acid (0.7-2.1) mmol/L Calcium (8.6-10.4) mg/dl Phosphorus (2.5-4.5) mg/dL Magnesium (1.6-2.3) mg/dL Total Bilirubin (0.2-1.3) mg/dL AST (17-59) U/L ALT (21-72) U/L Alkaline Phosphatase (38-126) U/L Ammonia (9-33) umol/L Troponin I (0.00-0.120) ng/mL Total Protein (6.3-8.3) g/dL Albumin (3.5-5.0) g/dL Globulin (2.2-3.9) gm/dL Albumin/Globulin Ratio (1.0-2.1) Urine Color (YELLOW) Urine Clarity (Clear) Urine pH (5.0-8.0) Ur Specific [place] (1.003-1.030) Urine Protein (NEGATIVE) mg/dL Urine Glucose (UA) (Normal) mg/dL Urine Ketones (NEGATIVE) mg/dL Urine Blood (NEGATIVE) Urine Nitrate (NEGATIVE) Urine Bilirubin (NEGATIVE) Urine Urobilinogen (0.2-1.0) mg/dL Ur Leukocyte Esterase (Negative) Lexie/uL Urine WBC (Auto) (0-5) /hpf Urine RBC (Auto) (0-3) /hpf Ur Squamous Epith Cells (0-5) /hpf Random Vancomycin ug/mL Alcohol, Quantitative (0-10) mg/dl Serum Ketones (NEGATIVE) Influenza Typ A,B (EIA) (NEGATIVE) Blood Type Antibody Screen Laboratory Results - last 24 hr 08/03/17 08/03/17 08/03/17 11:20 11:20 11:20 WBC 5.7 RBC 2.53 L Hgb 7.3 L D Hct 22.4 L MCV 88.5 MCH 28.6 MCHC 32.4 L RDW 19.3 H Plt Count 90 L MPV 7.0 L Neut % (Auto) 52.9 Lymph % (Auto) 28.7 Bowie % (Auto) 14.1 H Eos % (Auto) 1.7 Baso % (Auto) 2.6 H Neut # (Auto) 3.0 Lymph # (Auto) 1.6 Bowie # (Auto) 0.8 Eos # (Auto) 0.1 Baso # (Auto) 0.1 Differential Comment PT 19.7 H INR 1.7 APTT 42 H Sodium 142 Potassium 4.0 Chloride 99 Carbon Dioxide 16 L Anion Gap 31 H BUN 14 Creatinine 1.7 H Est GFR ( Amer) 54 Est GFR (Non-Af Amer) 45 POC Glucose (mg/dL) Random Glucose 181 H Lactic Acid Calcium 7.4 L Phosphorus Magnesium Total Bilirubin 2.1 H AST 185 H ALT 55 Alkaline Phosphatase 131 H Ammonia Troponin I 0.0390 Total Protein 6.3 Albumin 2.5 L D Globulin 3.8 Albumin/Globulin Ratio 0.7 L Urine Color Urine Clarity Urine pH Ur Specific [place] Urine Protein Urine Glucose (UA) Urine Ketones Urine Blood Urine Nitrate Urine Bilirubin Urine Urobilinogen Ur Leukocyte Esterase Urine WBC (Auto) Urine RBC (Auto) Ur Squamous Epith Cells Random Vancomycin Alcohol, Quantitative 169 H Serum Ketones Negative Influenza Typ A,B (EIA) Blood Type Antibody Screen 08/03/17 08/03/17 08/03/17 11:20 12:12 13:04 WBC RBC Hgb Hct MCV MCH MCHC RDW Plt Count MPV Neut % (Auto) Lymph % (Auto) [place] % (Auto) Eos % (Auto) Baso % (Auto) Neut # (Auto) Lymph # (Auto) [place] # (Auto) Eos # (Auto) Baso # (Auto) Differential Comment PT INR APTT Sodium Potassium Chloride Carbon Dioxide Anion Gap BUN Creatinine Est GFR ( Amer) Est GFR (Non-Af Amer) POC Glucose (mg/dL) Random Glucose Lactic Acid Calcium Phosphorus Magnesium Total Bilirubin AST ALT Alkaline Phosphatase Ammonia 93 H D Troponin I Total Protein Albumin Globulin Albumin/Globulin Ratio Urine Color Urine Clarity Urine pH Ur Specific [place] Urine Protein Urine Glucose (UA) Urine Ketones Urine Blood Urine Nitrate Urine Bilirubin Urine Urobilinogen Ur Leukocyte Esterase Urine WBC (Auto) Urine RBC (Auto) Ur Squamous Epith Cells Random Vancomycin Alcohol, Quantitative Serum Ketones Influenza Typ A,B (EIA) Negative for flu a/b Blood Type AB POSITIVE Antibody Screen Negative 08/03/17 08/03/17 08/03/17 13:09 15:20 16:17 WBC RBC Hgb Hct MCV MCH MCHC RDW Plt Count MPV Neut % (Auto) Lymph % (Auto) [place] % (Auto) Eos % (Auto) Baso % (Auto) Neut # (Auto) Lymph # (Auto) [place] # (Auto) Eos # (Auto) Baso # (Auto) Differential Comment PT INR APTT Sodium Potassium Chloride Carbon Dioxide Anion Gap BUN Creatinine Est GFR ( Amer) Est GFR (Non-Af Amer) POC Glucose (mg/dL) 194 H Random Glucose Lactic Acid 10.9 H* 8.0 H* Calcium Phosphorus Magnesium Total Bilirubin AST ALT Alkaline Phosphatase Ammonia Troponin I Total Protein Albumin Globulin Albumin/Globulin Ratio Urine Color Urine Clarity Urine pH Ur Specific [place] Urine Protein Urine Glucose (UA) Urine Ketones Urine Blood Urine Nitrate Urine Bilirubin Urine Urobilinogen Ur Leukocyte Esterase Urine WBC (Auto) Urine RBC (Auto) Ur Squamous Epith Cells Random Vancomycin Alcohol, Quantitative Serum Ketones Influenza Typ A,B (EIA) Blood Type Antibody Screen 08/03/17 08/03/17 08/03/17 17:13 17:13 17:13 WBC 6.0 RBC 2.26 L Hgb 6.5 L* Hct 19.7 L MCV 87.3 MCH 29.0 MCHC 33.2 RDW 18.9 H Plt Count 59 L D MPV 6.8 L Neut % (Auto) 49.3 L Lymph % (Auto) 33.4 [place]ie % (Auto) 15.3 H Eos % (Auto) 0.6 Baso % (Auto) 1.4 Neut # (Auto) 3.0 Lymph # (Auto) 2.0 [place]ie # (Auto) 0.9 H Eos # (Auto) 0.0 Baso # (Auto) 0.1 Differential Comment PT INR APTT Sodium 139 Potassium 4.3 Chloride 102 Carbon Dioxide 21 L Anion Gap 20 BUN 13 Creatinine 1.5 Est GFR ( Amer) > 60 Est GFR (Non-Af Amer) 52 POC Glucose (mg/dL) Random Glucose 151 H Lactic Acid Calcium 7.2 L Phosphorus 4.2 Magnesium 1.3 L Total Bilirubin 2.5 H AST 193 H ALT 58 Alkaline Phosphatase 111 Ammonia Troponin I Total Protein 6.4 Albumin 2.4 L Globulin 4.0 H Albumin/Globulin Ratio 0.6 L Urine Color Urine Clarity Urine pH Ur Specific [place] Urine Protein Urine Glucose (UA) Urine Ketones Urine Blood Urine Nitrate Urine Bilirubin Urine Urobilinogen Ur Leukocyte Esterase Urine WBC (Auto) Urine RBC (Auto) Ur Squamous Epith Cells Random Vancomycin Alcohol, Quantitative Serum Ketones Influenza Typ A,B (EIA) Blood Type Antibody Screen 08/03/17 08/04/17 08/04/17 21:35 01:31 06:10 WBC RBC Hgb Hct MCV MCH MCHC RDW Plt Count MPV Neut % (Auto) Lymph % (Auto) [place] % (Auto) Eos % (Auto) Baso % (Auto) Neut # (Auto) Lymph # (Auto) [place] # (Auto) Eos # (Auto) Baso # (Auto) Differential Comment PT INR APTT Sodium Potassium Chloride Carbon Dioxide Anion Gap BUN Creatinine Est GFR ( Amer) Est GFR (Non-Af Amer) POC Glucose (mg/dL) 152 H 225 H Random Glucose Lactic Acid 6.2 H* Calcium Phosphorus Magnesium Total Bilirubin AST ALT Alkaline Phosphatase Ammonia Troponin I Total Protein Albumin Globulin Albumin/Globulin Ratio Urine Color Urine Clarity Urine pH Ur Specific [place] Urine Protein Urine Glucose (UA) Urine Ketones Urine Blood Urine Nitrate Urine Bilirubin Urine Urobilinogen Ur Leukocyte Esterase Urine WBC (Auto) Urine RBC (Auto) Ur Squamous Epith Cells Random Vancomycin Alcohol, Quantitative Serum Ketones Influenza Typ A,B (EIA) Blood Type Antibody Screen 08/04/17 08/04/17 08/04/17 06:17 06:17 06:19 WBC 5.4 RBC 2.75 L Hgb 8.0 L Hct 23.3 L MCV 84.9 D MCH 29.0 MCHC 34.1 RDW 17.9 H Plt Count 51 L MPV 7.5 Neut % (Auto) 47.8 L Lymph % (Auto) 31.2 [place]ie % (Auto) 16.8 H Eos % (Auto) 2.3 Baso % (Auto) 1.9 Neut # (Auto) 2.6 Lymph # (Auto) 1.7 [place]ie # (Auto) 0.9 H Eos # (Auto) 0.1 Baso # (Auto) 0.1 Differential Comment PT INR APTT Sodium 141 Potassium 4.1 Chloride 103 Carbon Dioxide 25 Anion Gap 17 BUN 14 Creatinine 1.4 Est GFR ( Amer) > 60 Est GFR (Non-Af Amer) 56 POC Glucose (mg/dL) Random Glucose 171 H Lactic Acid Calcium 7.5 L Phosphorus 3.6 Magnesium 1.3 L Total Bilirubin 3.2 H AST 190 H ALT 58 Alkaline Phosphatase 97 Ammonia Troponin I Total Protein 6.4 Albumin 2.3 L Globulin 4.1 H Albumin/Globulin Ratio 0.6 L Urine Color Urine Clarity Urine pH Ur Specific [place] Urine Protein Urine Glucose (UA) Urine Ketones Urine Blood Urine Nitrate Urine Bilirubin Urine Urobilinogen Ur Leukocyte Esterase Urine WBC (Auto) Urine RBC (Auto) Ur Squamous Epith Cells Random Vancomycin 6.17 Alcohol, Quantitative Serum Ketones Influenza Typ A,B (EIA) Blood Type Antibody Screen 08/04/17 06:54 WBC RBC Hgb Hct MCV MCH MCHC RDW Plt Count MPV Neut % (Auto) Lymph % (Auto) [place] % (Auto) Eos % (Auto) Baso % (Auto) Neut # (Auto) Lymph # (Auto) [place] # (Auto) Eos # (Auto) Baso # (Auto) Differential Comment PT INR APTT Sodium Potassium Chloride Carbon Dioxide Anion Gap BUN Creatinine Est GFR ( Amer) Est GFR (Non-Af Amer) POC Glucose (mg/dL) Random Glucose Lactic Acid Calcium Phosphorus Magnesium Total Bilirubin AST ALT Alkaline Phosphatase Ammonia Troponin I Total Protein Albumin Globulin Albumin/Globulin Ratio Urine Color Yellow Urine Clarity Clear Urine pH 8.0 Ur Specific [place] 1.015 Urine Protein Negative Urine Glucose (UA) Normal Urine Ketones Negative Urine Blood Negative Urine Nitrate Negative Urine Bilirubin Negative Urine Urobilinogen Normal Ur Leukocyte Esterase Neg Urine WBC (Auto) 1 Urine RBC (Auto) 1 Ur Squamous Epith Cells < 1 Random Vancomycin Alcohol, Quantitative Serum Ketones Influenza Typ A,B (EIA) Blood Type Antibody Screen EKG/Cardiology Studies: Cardiology / EKG Studies 08/03/17 10:11 EKG [ELECTROCARDIOGRAM] Stat Comment: Mode Of Transportation: Reason For Exam: bed 11;rapid heart rate Fingerstick Blood Sugar Results: 152 Review of Systems - Constitutional Constitutional: Malaise - EENT Eyes: absent: Change in Vision, Discharge, Sees Flashes, Loss of Vision Ears: absent: Ear Discharge Nose/Mouth/Throat: absent: Bleeding Gums - Cardiovascular Cardiovascular: Chest Pain. absent: Claudication, Leg Edema, Pedal Edema - Respiratory Respiratory: absent: Hemoptysis, Pain on Inspiration, Change in Mucous Color - Gastrointestinal Gastrointestinal: absent: Belching, Change in Stool Character, Fecal Incontinence, Melena, Nausea, Vomiting - Musculoskeletal Musculoskeletal: absent: Atrophy, Myalgias, Stiffness, Tingling - Neurological Neurological: absent: Loss of Vision, Restless Legs, Vertigo, Weakness - Endocrine Endocrine: absent: Change in Body Appearance, Change in Libido, Excessive Sweating - Hematologic/Lymphatic Hematologic: absent: Easy Bleeding, Easy Bruising, UNREMARKABLE Critical Care Progress Note - Nutrition Nutrition: Nutrition Category Date Time Status NPO Diet [DIET] Diets 08/03/17 Dinner Active Assessment/Plan - Assessment and Plan (Free Text) Assessment: 41 year old male with a past medical history of diabetes, asthma, hypertension, liver disease, etoh abuse, hypercholesterolemia, psoriasis, and withdrawal seizures who presents after syncopal episode and GI bleeding in the setting of severe sepsis. Patient was admitted to ICU for severe sepsis and GI bleed. Plan: Infectious Disease: Sever sepsis Lactate ringer 1 Liter bolus Zosyn 3.375mg Q8H Vancomycin 1 g Q24H restarted. Sputum cultures: grew gram positive clusters Lactic acid level Beta-hydroxybutyrate level Drug toxicology panel Gastroenterology:Liver disease, GI bleeding, Hyperbilirubinemia Octreotide 1250mcg q24h. Fluids discontinued. GI consulted. Recommendations appreciated. Abdominal/ renal ultrasound ordered. Will f/u with results. Lactulose 20mg PO Q12H. Hematology: h/o Anemia Hemoglobin upon admission 7.3 Repeat Hemoglobin 9.0 Status post 2 units of Packed red blood cells. Consider another transfusion if hemoglobin drops below 7 again. Repeat H/H at 2p.m. Endocrinology: h/o Type 2 Diabetes mellitus -Home Metformin held. -ISS -Accuchecks ACHS -NPO diet Psychiatry: alcohol abuse, depression Librium 25mg PO8 Zoloft 100mg PO BID Lexapro 10mg PO Daily Thiamine 200mg PO Q8 Niacin 250mg Q12. PPX -Protonix 40mg Daily <Wang Ba - Last Filed: 08/04/17 16:15> CCU Objective - Vital Signs / Intake & Output Vital Signs (Last 4 hours): Vital Signs Temp Pulse Resp BP Pulse Ox 08/04/17 15:00 103 H 27 H 155/89 H 98 08/04/17 14:48 98 H 26 H 149/85 97 08/04/17 14:30 102 H 24 99 08/04/17 14:15 98 H 27 H 156/89 H 100 08/04/17 14:00 97.8 F 103 H 25 H 154/90 H 100 08/04/17 13:45 97.8 F 108 H 23 157/97 H 100 08/04/17 13:30 98.0 F 104 H 27 H 155/93 H 100 08/04/17 13:16 109 H 25 H 169/101 H 98 08/04/17 13:15 98.0 F 99 08/04/17 13:01 112 H 19 167/95 H 98 08/04/17 13:00 117 H 17 100 08/04/17 12:46 98 H 13 129/101 H 08/04/17 12:43 126 H 13 166/106 H 08/04/17 12:30 127 H 18 08/04/17 12:19 124 H 15 157/103 H Intake and Output (Last 8hrs): Intake & Output 08/04/17 08/04/17 08/04/17 06:59 14:59 22:59 Intake Total 1080.8 1270.8 260.1 Output Total 750 520 Balance 330.8 750.8 260.1 Weight 200 lb Intake: Intake, IV Amount 655.8 780.8 260.1 Left Antecubital 575 125 Left Wrist 80.8 80.8 10.1 Left wrist #2 50 100 Right Wrist 525 150 Oral 490 0 Blood Product 325 Red Blood Cells Cpd As1 325 Lr Unit [id number] Other 100 Red Blood Cells Cpd As1 100 Lr Unit [id number] Output: Urine 300 420 Urine, Voided 300 420 Stool 450 Urine/Stool Mix 100 Other: # Voids Urine, Voided 1 1 0 # Bowel Movements 1 0 0 - Medications Active Medications: Active Medications Generic Name Dose Route Start Last Admin Trade Name Freq PRN Reason Stop Dose Admin Chlordiazepoxide 25 mg 08/03/17 15:48 08/04/17 14:22 Librium PO 25 mg Q8 PRN Administration Anxiety Octreotide Acetate 1,250 mcg/ 252.5 mls @ 10.1 mls/hr 08/03/17 13:30 14:17 Sodium Chloride IV Not Given .Q24H FLY Protocol 50 MCG/HR Piperacillin Sod/Tazobactam 100 mls @ 200 mls/hr 08/03/17 14:30 08/04/17 14: 19 Sod 3.375 gm/ Sodium Chloride IVPB 200 mls/hr Q8H FLY Administration Protocol Vancomycin/Sodium Chloride 1 gm in 200 mls @ 166.7 mls/hr 08/04/17 14:00 12/15 14:20 Vancomycin 1 Gm/Ns 200 Ml IVPB 08/09/17 14:01 166.7 mls/hr Q24H FLY Administration Protocol Lactulose 20 gm 08/03/17 14:30 08/04/17 11:06 Enulose PO Not Given Q12 FLY Multivitamins/Vitamin C 5 ml 08/04/17 10:00 08/04/17 11:06 Multi-Delyn Liquid PO 5 ml DAILY FLY Administration Niacin 250 mg 08/03/17 13:30 08/04/17 11:06 Niacin PO 250 mg Q12 FLY Administration Pantoprazole Sodium 40 mg 08/03/17 21:00 08/04/17 09:20 Protonix Inj IVP 40 mg Q12H FLY Administration Thiamine HCl 200 mg 08/03/17 13:30 08/04/17 14:20 Vitamin B1 Inj IV 200 mg Q8H FLY Administration - Patient Studies Lab Studies: Microbiology Studies 08/03/17 13:45 Blood Culture - Preliminary Blood-Venous NO GROWTH AFTER 24 HOURS 08/03/17 13:30 S.aureus & Coag-Neg Staph PNA FISH - Final Blood-Venous Blood Culture - Preliminary Gram Pos Cocci In Clusters Gram Stain - Preliminary Lab Studies 08/04/17 08/04/17 08/04/17 Range/Units 14:32 11:37 06:54 WBC 4.3 L (4.8-10.8) K/uL RBC 2.44 L (4.40-5.90) Mil/uL Hgb 7.0 L (12.0-18.0) g/dL Hct 20.8 L (35.0-51.0) % MCV 85.4 (80.0-94.0) fL MCH 28.7 (27.0-31.0) pg MCHC 33.6 (33.0-37.0) g/dL RDW 18.1 H (11.5-14.5) % Plt Count 40 L (130-400) K/uL MPV 7.0 L (7.2-11.7) fL Neut % (Auto) 54.9 (50.0-75.0) % Lymph % (Auto) 24.3 (20.0-40.0) % Bowie % (Auto) 17.6 H (0.0-10.0) % Eos % (Auto) 2.2 (0.0-4.0) % Baso % (Auto) 1.0 (0.0-2.0) % Neut # (Auto) 2.4 (1.8-7.0) K/uL Lymph # (Auto) 1.1 (1.0-4.3) K/uL Bowie # (Auto) 0.8 (0.0-0.8) K/uL Eos # (Auto) 0.1 (0.0-0.7) K/uL Baso # (Auto) 0.0 (0.0-0.2) K/uL Differential Comment Sodium (132-148) mmol/L Potassium (3.6-5.2) mmol/L Chloride (98-107) mmol/L Carbon Dioxide (22-30) mmol/L Anion Gap (10-20) BUN (9-20) mg/dL Creatinine (0.8-1.5) mg/dL Est GFR ( Amer) Est GFR (Non-Af Amer) POC Glucose (mg/dL) 211 H (65-110) mg/dL Random Glucose (75-110) mg/dL Lactic Acid (0.7-2.1) mmol/L Calcium (8.6-10.4) mg/dl Phosphorus (2.5-4.5) mg/dL Magnesium (1.6-2.3) mg/dL Total Bilirubin (0.2-1.3) mg/dL AST (17-59) U/L ALT (21-72) U/L Alkaline Phosphatase (38-126) U/L Total Protein (6.3-8.3) g/dL Albumin (3.5-5.0) g/dL Globulin (2.2-3.9) gm/dL Albumin/Globulin Ratio (1.0-2.1) Urine Color Yellow (YELLOW) Urine Clarity Clear (Clear) Urine pH 8.0 (5.0-8.0) Ur Specific [place] 1.015 (1.003-1.030) Urine Protein Negative (NEGATIVE) mg/dL Urine Glucose (UA) Normal (Normal) mg/dL Urine Ketones Negative (NEGATIVE) mg/dL Urine Blood Negative (NEGATIVE) Urine Nitrate Negative (NEGATIVE) Urine Bilirubin Negative (NEGATIVE) Urine Urobilinogen Normal (0.2-1.0) mg/dL Ur Leukocyte Esterase Neg (Negative) Lexie/uL Urine WBC (Auto) 1 (0-5) /hpf Urine RBC (Auto) 1 (0-3) /hpf Ur Squamous Epith Cells < 1 (0-5) /hpf Random Vancomycin ug/mL Blood Type Antibody Screen 08/04/17 08/04/17 08/04/17 Range/Units 06:19 06:17 06:17 WBC 5.4 (4.8-10.8) K/uL RBC 2.75 L (4.40-5.90) Mil/uL Hgb 8.0 L (12.0-18.0) g/dL Hct 23.3 L (35.0-51.0) % MCV 84.9 D (80.0-94.0) fL MCH 29.0 (27.0-31.0) pg MCHC 34.1 (33.0-37.0) g/dL RDW 17.9 H (11.5-14.5) % Plt Count 51 L (130-400) K/uL MPV 7.5 (7.2-11.7) fL Neut % (Auto) 47.8 L (50.0-75.0) % Lymph % (Auto) 31.2 (20.0-40.0) % Bowie % (Auto) 16.8 H (0.0-10.0) % Eos % (Auto) 2.3 (0.0-4.0) % Baso % (Auto) 1.9 (0.0-2.0) % Neut # (Auto) 2.6 (1.8-7.0) K/uL Lymph # (Auto) 1.7 (1.0-4.3) K/uL Bowie # (Auto) 0.9 H (0.0-0.8) K/uL Eos # (Auto) 0.1 (0.0-0.7) K/uL Baso # (Auto) 0.1 (0.0-0.2) K/uL Differential Comment Sodium 141 (132-148) mmol/L Potassium 4.1 (3.6-5.2) mmol/L Chloride 103 (98-107) mmol/L Carbon Dioxide 25 (22-30) mmol/L Anion Gap 17 (10-20) BUN 14 (9-20) mg/dL Creatinine 1.4 (0.8-1.5) mg/dL Est GFR ( Amer) > 60 Est GFR (Non-Af Amer) 56 POC Glucose (mg/dL) (65-110) mg/dL Random Glucose 171 H (75-110) mg/dL Lactic Acid (0.7-2.1) mmol/L Calcium 7.5 L (8.6-10.4) mg/dl Phosphorus 3.6 (2.5-4.5) mg/dL Magnesium 1.3 L (1.6-2.3) mg/dL Total Bilirubin 3.2 H (0.2-1.3) mg/dL AST 190 H (17-59) U/L ALT 58 (21-72) U/L Alkaline Phosphatase 97 (38-126) U/L Total Protein 6.4 (6.3-8.3) g/dL Albumin 2.3 L (3.5-5.0) g/dL Globulin 4.1 H (2.2-3.9) gm/dL Albumin/Globulin Ratio 0.6 L (1.0-2.1) Urine Color (YELLOW) Urine Clarity (Clear) Urine pH (5.0-8.0) Ur Specific [place] (1.003-1.030) Urine Protein (NEGATIVE) mg/dL Urine Glucose (UA) (Normal) mg/dL Urine Ketones (NEGATIVE) mg/dL Urine Blood (NEGATIVE) Urine Nitrate (NEGATIVE) Urine Bilirubin (NEGATIVE) Urine Urobilinogen (0.2-1.0) mg/dL Ur Leukocyte Esterase (Negative) Lexie/uL Urine WBC (Auto) (0-5) /hpf Urine RBC (Auto) (0-3) /hpf Ur Squamous Epith Cells (0-5) /hpf Random Vancomycin 6.17 ug/mL Blood Type Antibody Screen 08/04/17 08/04/17 08/03/17 Range/Units 06:10 01:31 21:35 WBC (4.8-10.8) K/uL RBC (4.40-5.90) Mil/uL Hgb (12.0-18.0) g/dL Hct (35.0-51.0) % MCV (80.0-94.0) fL MCH (27.0-31.0) pg MCHC (33.0-37.0) g/dL RDW (11.5-14.5) % Plt Count (130-400) K/uL MPV (7.2-11.7) fL Neut % (Auto) (50.0-75.0) % Lymph % (Auto) (20.0-40.0) % Bowie % (Auto) (0.0-10.0) % Eos % (Auto) (0.0-4.0) % Baso % (Auto) (0.0-2.0) % Neut # (Auto) (1.8-7.0) K/uL Lymph # (Auto) (1.0-4.3) K/uL Bowie # (Auto) (0.0-0.8) K/uL Eos # (Auto) (0.0-0.7) K/uL Baso # (Auto) (0.0-0.2) K/uL Differential Comment Sodium (132-148) mmol/L Potassium (3.6-5.2) mmol/L Chloride (98-107) mmol/L Carbon Dioxide (22-30) mmol/L Anion Gap (10-20) BUN (9-20) mg/dL Creatinine (0.8-1.5) mg/dL Est GFR ( Amer) Est GFR (Non-Af Amer) POC Glucose (mg/dL) 225 H 152 H (65-110) mg/dL Random Glucose (75-110) mg/dL Lactic Acid 6.2 H* (0.7-2.1) mmol/L Calcium (8.6-10.4) mg/dl Phosphorus (2.5-4.5) mg/dL Magnesium (1.6-2.3) mg/dL Total Bilirubin (0.2-1.3) mg/dL AST (17-59) U/L ALT (21-72) U/L Alkaline Phosphatase (38-126) U/L Total Protein (6.3-8.3) g/dL Albumin (3.5-5.0) g/dL Globulin (2.2-3.9) gm/dL Albumin/Globulin Ratio (1.0-2.1) Urine Color (YELLOW) Urine Clarity (Clear) Urine pH (5.0-8.0) Ur Specific [place] (1.003-1.030) Urine Protein (NEGATIVE) mg/dL Urine Glucose (UA) (Normal) mg/dL Urine Ketones (NEGATIVE) mg/dL Urine Blood (NEGATIVE) Urine Nitrate (NEGATIVE) Urine Bilirubin (NEGATIVE) Urine Urobilinogen (0.2-1.0) mg/dL Ur Leukocyte Esterase (Negative) Lexie/uL Urine WBC (Auto) (0-5) /hpf Urine RBC (Auto) (0-3) /hpf Ur Squamous Epith Cells (0-5) /hpf Random Vancomycin ug/mL Blood Type Antibody Screen 08/03/17 08/03/17 08/03/17 Range/Units 17:13 17:13 17:13 WBC 6.0 (4.8-10.8) K/uL RBC 2.26 L (4.40-5.90) Mil/uL Hgb 6.5 L* (12.0-18.0) g/dL Hct 19.7 L (35.0-51.0) % MCV 87.3 (80.0-94.0) fL MCH 29.0 (27.0-31.0) pg MCHC 33.2 (33.0-37.0) g/dL RDW 18.9 H (11.5-14.5) % Plt Count 59 L D (130-400) K/uL MPV 6.8 L (7.2-11.7) fL Neut % (Auto) 49.3 L (50.0-75.0) % Lymph % (Auto) 33.4 (20.0-40.0) % Bowie % (Auto) 15.3 H (0.0-10.0) % Eos % (Auto) 0.6 (0.0-4.0) % Baso % (Auto) 1.4 (0.0-2.0) % Neut # (Auto) 3.0 (1.8-7.0) K/uL Lymph # (Auto) 2.0 (1.0-4.3) K/uL Bowie # (Auto) 0.9 H (0.0-0.8) K/uL Eos # (Auto) 0.0 (0.0-0.7) K/uL Baso # (Auto) 0.1 (0.0-0.2) K/uL Differential Comment Sodium 139 (132-148) mmol/L Potassium 4.3 (3.6-5.2) mmol/L Chloride 102 (98-107) mmol/L Carbon Dioxide 21 L (22-30) mmol/L Anion Gap 20 (10-20) BUN 13 (9-20) mg/dL Creatinine 1.5 (0.8-1.5) mg/dL Est GFR ( Amer) > 60 Est GFR (Non-Af Amer) 52 POC Glucose (mg/dL) (65-110) mg/dL Random Glucose 151 H (75-110) mg/dL Lactic Acid (0.7-2.1) mmol/L Calcium 7.2 L (8.6-10.4) mg/dl Phosphorus 4.2 (2.5-4.5) mg/dL Magnesium 1.3 L (1.6-2.3) mg/dL Total Bilirubin 2.5 H (0.2-1.3) mg/dL AST 193 H (17-59) U/L ALT 58 (21-72) U/L Alkaline Phosphatase 111 (38-126) U/L Total Protein 6.4 (6.3-8.3) g/dL Albumin 2.4 L (3.5-5.0) g/dL Globulin 4.0 H (2.2-3.9) gm/dL Albumin/Globulin Ratio 0.6 L (1.0-2.1) Urine Color (YELLOW) Urine Clarity (Clear) Urine pH (5.0-8.0) Ur Specific [place] (1.003-1.030) Urine Protein (NEGATIVE) mg/dL Urine Glucose (UA) (Normal) mg/dL Urine Ketones (NEGATIVE) mg/dL Urine Blood (NEGATIVE) Urine Nitrate (NEGATIVE) Urine Bilirubin (NEGATIVE) Urine Urobilinogen (0.2-1.0) mg/dL Ur Leukocyte Esterase (Negative) Lexie/uL Urine WBC (Auto) (0-5) /hpf Urine RBC (Auto) (0-3) /hpf Ur Squamous Epith Cells (0-5) /hpf Random Vancomycin ug/mL Blood Type Antibody Screen 08/03/17 08/03/17 Range/Units 16:17 11:20 WBC (4.8-10.8) K/uL RBC (4.40-5.90) Mil/uL Hgb (12.0-18.0) g/dL Hct (35.0-51.0) % MCV (80.0-94.0) fL MCH (27.0-31.0) pg MCHC (33.0-37.0) g/dL RDW (11.5-14.5) % Plt Count (130-400) K/uL MPV (7.2-11.7) fL Neut % (Auto) (50.0-75.0) % Lymph % (Auto) (20.0-40.0) % Bowie % (Auto) (0.0-10.0) % Eos % (Auto) (0.0-4.0) % Baso % (Auto) (0.0-2.0) % Neut # (Auto) (1.8-7.0) K/uL Lymph # (Auto) (1.0-4.3) K/uL Bowie # (Auto) (0.0-0.8) K/uL Eos # (Auto) (0.0-0.7) K/uL Baso # (Auto) (0.0-0.2) K/uL Differential Comment Sodium (132-148) mmol/L Potassium (3.6-5.2) mmol/L Chloride (98-107) mmol/L Carbon Dioxide (22-30) mmol/L Anion Gap (10-20) BUN (9-20) mg/dL Creatinine (0.8-1.5) mg/dL Est GFR ( Amer) Est GFR (Non-Af Amer) POC Glucose (mg/dL) (65-110) mg/dL Random Glucose (75-110) mg/dL Lactic Acid 8.0 H* (0.7-2.1) mmol/L Calcium (8.6-10.4) mg/dl Phosphorus (2.5-4.5) mg/dL Magnesium (1.6-2.3) mg/dL Total Bilirubin (0.2-1.3) mg/dL AST (17-59) U/L ALT (21-72) U/L Alkaline Phosphatase (38-126) U/L Total Protein (6.3-8.3) g/dL Albumin (3.5-5.0) g/dL Globulin (2.2-3.9) gm/dL Albumin/Globulin Ratio (1.0-2.1) Urine Color (YELLOW) Urine Clarity (Clear) Urine pH (5.0-8.0) Ur Specific [place] (1.003-1.030) Urine Protein (NEGATIVE) mg/dL Urine Glucose (UA) (Normal) mg/dL Urine Ketones (NEGATIVE) mg/dL Urine Blood (NEGATIVE) Urine Nitrate (NEGATIVE) Urine Bilirubin (NEGATIVE) Urine Urobilinogen (0.2-1.0) mg/dL Ur Leukocyte Esterase (Negative) Lexie/uL Urine WBC (Auto) (0-5) /hpf Urine RBC (Auto) (0-3) /hpf Ur Squamous Epith Cells (0-5) /hpf Random Vancomycin ug/mL Blood Type AB POSITIVE Antibody Screen Negative Laboratory Results - last 24 hr 08/03/17 08/03/17 08/03/17 11:20 16:17 17:13 WBC RBC Hgb Hct MCV MCH MCHC RDW Plt Count MPV Neut % (Auto) Lymph % (Auto) Bowie % (Auto) Eos % (Auto) Baso % (Auto) Neut # (Auto) Lymph # (Auto) Bowie # (Auto) Eos # (Auto) Baso # (Auto) Differential Comment Sodium Potassium Chloride Carbon Dioxide Anion Gap BUN Creatinine Est GFR ( Amer) Est GFR (Non-Af Amer) POC Glucose (mg/dL) Random Glucose Lactic Acid 8.0 H* Calcium Phosphorus Magnesium 1.3 L Total Bilirubin AST ALT Alkaline Phosphatase Total Protein Albumin Globulin Albumin/Globulin Ratio Urine Color Urine Clarity Urine pH Ur Specific [place] Urine Protein Urine Glucose (UA) Urine Ketones Urine Blood Urine Nitrate Urine Bilirubin Urine Urobilinogen Ur Leukocyte Esterase Urine WBC (Auto) Urine RBC (Auto) Ur Squamous Epith Cells Random Vancomycin Blood Type AB POSITIVE Antibody Screen Negative 08/03/17 08/03/17 08/03/17 17:13 17:13 21:35 WBC 6.0 RBC 2.26 L Hgb 6.5 L* Hct 19.7 L MCV 87.3 MCH 29.0 MCHC 33.2 RDW 18.9 H Plt Count 59 L D MPV 6.8 L Neut % (Auto) 49.3 L Lymph % (Auto) 33.4 Bowie % (Auto) 15.3 H Eos % (Auto) 0.6 Baso % (Auto) 1.4 Neut # (Auto) 3.0 Lymph # (Auto) 2.0 Bowie # (Auto) 0.9 H Eos # (Auto) 0.0 Baso # (Auto) 0.1 Differential Comment Sodium 139 Potassium 4.3 Chloride 102 Carbon Dioxide 21 L Anion Gap 20 BUN 13 Creatinine 1.5 Est GFR ( Amer) > 60 Est GFR (Non-Af Amer) 52 POC Glucose (mg/dL) Random Glucose 151 H Lactic Acid 6.2 H* Calcium 7.2 L Phosphorus 4.2 Magnesium Total Bilirubin 2.5 H AST 193 H ALT 58 Alkaline Phosphatase 111 Total Protein 6.4 Albumin 2.4 L Globulin 4.0 H Albumin/Globulin Ratio 0.6 L Urine Color Urine Clarity Urine pH Ur Specific [place] Urine Protein Urine Glucose (UA) Urine Ketones Urine Blood Urine Nitrate Urine Bilirubin Urine Urobilinogen Ur Leukocyte Esterase Urine WBC (Auto) Urine RBC (Auto) Ur Squamous Epith Cells Random Vancomycin Blood Type Antibody Screen 08/04/17 08/04/17 08/04/17 01:31 06:10 06:17 WBC RBC Hgb Hct MCV MCH MCHC RDW Plt Count MPV Neut % (Auto) Lymph % (Auto) Bowie % (Auto) Eos % (Auto) Baso % (Auto) Neut # (Auto) Lymph # (Auto) Bowie # (Auto) Eos # (Auto) Baso # (Auto) Differential Comment Sodium Potassium Chloride Carbon Dioxide Anion Gap BUN Creatinine Est GFR ( Amer) Est GFR (Non-Af Amer) POC Glucose (mg/dL) 152 H 225 H Random Glucose Lactic Acid Calcium Phosphorus Magnesium Total Bilirubin AST ALT Alkaline Phosphatase Total Protein Albumin Globulin Albumin/Globulin Ratio Urine Color Urine Clarity Urine pH Ur Specific [place] Urine Protein Urine Glucose (UA) Urine Ketones Urine Blood Urine Nitrate Urine Bilirubin Urine Urobilinogen Ur Leukocyte Esterase Urine WBC (Auto) Urine RBC (Auto) Ur Squamous Epith Cells Random Vancomycin 6.17 Blood Type Antibody Screen 08/04/17 08/04/17 08/04/17 06:17 06:19 06:54 WBC 5.4 RBC 2.75 L Hgb 8.0 L Hct 23.3 L MCV 84.9 D MCH 29.0 MCHC 34.1 RDW 17.9 H Plt Count 51 L MPV 7.5 Neut % (Auto) 47.8 L Lymph % (Auto) 31.2 Bowie % (Auto) 16.8 H Eos % (Auto) 2.3 Baso % (Auto) 1.9 Neut # (Auto) 2.6 Lymph # (Auto) 1.7 Bowie # (Auto) 0.9 H Eos # (Auto) 0.1 Baso # (Auto) 0.1 Differential Comment Sodium 141 Potassium 4.1 Chloride 103 Carbon Dioxide 25 Anion Gap 17 BUN 14 Creatinine 1.4 Est GFR ( Amer) > 60 Est GFR (Non-Af Amer) 56 POC Glucose (mg/dL) Random Glucose 171 H Lactic Acid Calcium 7.5 L Phosphorus 3.6 Magnesium 1.3 L Total Bilirubin 3.2 H AST 190 H ALT 58 Alkaline Phosphatase 97 Total Protein 6.4 Albumin 2.3 L Globulin 4.1 H Albumin/Globulin Ratio 0.6 L Urine Color Yellow Urine Clarity Clear Urine pH 8.0 Ur Specific [place] 1.015 Urine Protein Negative Urine Glucose (UA) Normal Urine Ketones Negative Urine Blood Negative Urine Nitrate Negative Urine Bilirubin Negative Urine Urobilinogen Normal Ur Leukocyte Esterase Neg Urine WBC (Auto) 1 Urine RBC (Auto) 1 Ur Squamous Epith Cells < 1 Random Vancomycin Blood Type Antibody Screen 08/04/17 08/04/17 11:37 14:32 WBC 4.3 L RBC 2.44 L Hgb 7.0 L Hct 20.8 L MCV 85.4 MCH 28.7 MCHC 33.6 RDW 18.1 H Plt Count 40 L MPV 7.0 L Neut % (Auto) 54.9 Lymph % (Auto) 24.3 Bowie % (Auto) 17.6 H Eos % (Auto) 2.2 Baso % (Auto) 1.0 Neut # (Auto) 2.4 Lymph # (Auto) 1.1 Bowie # (Auto) 0.8 Eos # (Auto) 0.1 Baso # (Auto) 0.0 Differential Comment Sodium Potassium Chloride Carbon Dioxide Anion Gap BUN Creatinine Est GFR ( Amer) Est GFR (Non-Af Amer) POC Glucose (mg/dL) 211 H Random Glucose Lactic Acid Calcium Phosphorus Magnesium Total Bilirubin AST ALT Alkaline Phosphatase Total Protein Albumin Globulin Albumin/Globulin Ratio Urine Color Urine Clarity Urine pH Ur Specific [place] Urine Protein Urine Glucose (UA) Urine Ketones Urine Blood Urine Nitrate Urine Bilirubin Urine Urobilinogen Ur Leukocyte Esterase Urine WBC (Auto) Urine RBC (Auto) Ur Squamous Epith Cells Random Vancomycin Blood Type Antibody Screen Critical Care Progress Note - Nutrition Nutrition: Nutrition Category Date Time Status Liquid Diet [DIET] Diets 08/04/17 Lunch Active Attending/Attestation - Attestation I have personally seen and examined this patient.: Yes I have fully participated in the care of the patient.: Yes I have reviewed all pertinent clinical information: Yes Notes (Text): 08/04/17 16:13 patient seen and examined in the intensive care unit. 41-year-old male admitted with GI bleed and alcohol intoxication Status post transfusion of packed RBCs On octreotide and Protonix Transfuse FFP GI evaluation monitor H&H
--- NOTE | 2017-08-04 10:29 | CP.PCM.PN ---
Subjective - Date & Time of Evaluation Date of Evaluation: 08/04/17 Time of Evaluation: 07:00 - Subjective Subjective: PGY4 GI Follow-up Pt seen and examined bedside reports of BRBPR overnight with BM Denies any any abd pain was NPo overnight ROS: 10 point ROS conducted neg other than above Objective - Vital Signs/Intake and Output Vital Signs (last 24 hours): Temp Pulse Resp BP Pulse Ox 98.2 F 127 H 19 163/96 H 99 08/04/17 08:00 08/04/17 09:00 08/04/17 09:00 08/04/17 08:18 08/04/17 09:00 Intake and Output: 08/04/17 08/04/17 06:59 18:59 Intake Total 2465.2 380.3 Output Total 850 220 Balance 1615.2 160.3 - Medications Medications: Current Medications Chlordiazepoxide (Librium) 25 mg PO Q8 PRN PRN Reason: Anxiety Last Admin: 08/03/17 16:05 Dose: 25 mg Octreotide Acetate 1,250 mcg/ (Sodium Chloride) 252.5 mls @ 10.1 mls/hr IV .Q24H FLY; 50 MCG/HR PRN Reason: Protocol Last Admin: 08/03/17 13:35 Dose: 10.1 mls/hr Piperacillin Sod/Tazobactam (Sod 3.375 gm/ Sodium Chloride) 100 mls @ 200 mls/ hr IVPB Q8H FLY PRN Reason: Protocol Last Admin: 08/04/17 06:00 Dose: 200 mls/hr Lactulose (Enulose) 20 gm PO Q12 FLY Last Admin: 08/03/17 22:00 Dose: 20 gm Multivitamins/Vitamin C (Multi-Delyn Liquid) 5 ml PO DAILY FLY Niacin (Niacin) 250 mg PO Q12 FLY Last Admin: 08/03/17 22:00 Dose: 250 mg Pantoprazole Sodium (Protonix Inj) 40 mg IVP Q12H FLY Last Admin: 08/03/17 22:00 Dose: 40 mg Phytonadione (Vitamin K) 1 mg IM ONCE ONE Stop: 08/04/17 10:12 Thiamine HCl (Vitamin B1 Inj) 200 mg IV Q8H FLY Last Admin: 08/04/17 06:15 Dose: 200 mg - Labs Labs: 08/04/17 06:19 03/07/18 06:17 PT 19.7 SECONDS (9.7-12.2) H 08/03/17 11:20 INR 1.7 08/03/17 11:20 APTT 42 SECONDS (21-34) H 08/03/17 11:20 - Constitutional Appears: Well, No Acute Distress, Chronically Ill - Head Exam Head Exam: ATRAUMATIC, NORMOCEPHALIC - Eye Exam Eye Exam: Normal appearance - ENT Exam ENT Exam: Mucous Membranes Moist, Normal Exam - Neck Exam Neck Exam: Normal Inspection - Respiratory Exam Respiratory Exam: Clear to Ausculation Bilateral, NORMAL BREATHING PATTERN. absent: Rales, Rhonchi, Wheezes, Respiratory Distress - Cardiovascular Exam Cardiovascular Exam: REGULAR RHYTHM, +S1, +S2 - GI/Abdominal Exam GI & Abdominal Exam: Soft, Normal Bowel Sounds. absent: Guarding, Rigid, Tenderness, Organomegaly - Extremities Exam Extremities Exam: absent: Joint Swelling, Pedal Edema - Neurological Exam Neurological Exam: Alert, Awake, Oriented x3 - Psychiatric Exam Psychiatric exam: Normal Affect, Normal Mood - Skin Skin Exam: Dry, Intact, Normal Color, Warm
[2017-08-04] MEDS ORDERED: Phytonadione 10 mg/ml Inj (Adult) IV ONE ×2 (10:45→11:00)
[2017-08-04] MEDS: Multiple Vitamins Oral Solution PO SCH (11:06)
[2017-08-04] MEDS ORDERED: Vancomycin 1 gm/NS 200 ml 1 GM/200 ML BAG IVPB SCH (14:00)
[2017-08-04] MEDS: Vancomycin 1 gm/NS 200 ml 1 GM/200 ML BAG IVPB SCH (14:20)
[2017-08-04 14:41] LABS: EOS # 0.1 K/uL (0.0-0.7); EOS % 2.2 % (0.0-4.0); LYMPH # 1.1 K/uL (1.0-4.3); LYMPH % 24.3 % (20.0-40.0); MEAN CELL VOLUME 85.4 fL (80.0-94.0); MEAN CORPUSCULAR HEMOGLOBIN 28.7 pg (27.0-31.0); MEAN CORPUSCULAR HGB CONC 33.6 g/dL (33.0-37.0); MONO # 0.8 K/uL (0.0-0.8); MONO % 17.6 % (0.0-10.0); NEUT # 2.4 K/uL (1.8-7.0); NEUT % 54.9 % (50.0-75.0); NRBC % 0.2 % (0.0-2.0); RBC 2.44 Mil/uL (4.40-5.90); RED CELL DISTRIBUTION WIDTH 18.1 % (11.5-14.5); WHITE BLOOD COUNT 4.3 K/uL (4.8-10.8)
[2017-08-05] MEDS: Thiamine 100 mg/ml Inj IV SCH ×3 (05:45→22:30)
[2017-08-05] MEDS: Piperacillin/Tazobact 3.375 GM in Sodium Chloride 100 ML IVPB SCH (05:50)
[2017-08-05 06:36] LABS: BASO # 0.1 K/uL (0.0-0.2); BASO % 1.3 % (0.0-2.0); EOS # 0.2 K/uL (0.0-0.7); EOS % 4.8 % (0.0-4.0); HEMOGLOBIN 8.5 g/dL (12.0-18.0); LYMPH # 1.2 K/uL (1.0-4.3); LYMPH % 27.5 % (20.0-40.0); MEAN CELL VOLUME 84.9 fL (80.0-94.0); MEAN CORPUSCULAR HEMOGLOBIN 29.1 pg (27.0-31.0); MEAN CORPUSCULAR HGB CONC 34.3 g/dL (33.0-37.0); MEAN PLATELET VOLUME 7.8 fL (7.2-11.7); MONO # 0.6 K/uL (0.0-0.8); MONO % 12.8 % (0.0-10.0); NEUT # 2.4 K/uL (1.8-7.0); NEUT % 53.6 % (50.0-75.0); NRBC % 0.3 % (0.0-2.0); RBC 2.93 Mil/uL (4.40-5.90); RED CELL DISTRIBUTION WIDTH 16.9 % (11.5-14.5); WHITE BLOOD COUNT 4.4 K/uL (4.8-10.8)
[2017-08-05 06:44] LABS: ALB/GLOB RATIO 0.6 (1.0-2.1); ALBUMIN 2.4 g/dL (3.5-5.0); ALT/SGPT 45 U/L (21-72); AST/SGOT 165 U/L (17-59); BLOOD UREA NITROGEN 9 mg/dL (9-20); CALCIUM 6.7 mg/dl (8.6-10.4); GFR AFRICAN-AMERICAN > 60; GFR NON-AFRICAN AMERICAN > 60
[2017-08-05 06:52] LABS: INR 1.8; PROTHROMBIN TIME 20.4 SECONDS (9.7-12.2)
[2017-08-05] MEDS ORDERED: Propofol 10 mg/ml Inj (20 ML) ONE (08:34)
[2017-08-05] MEDS ORDERED: Lactated Ringer's 1,000 ML IV ONE (08:35)
[2017-08-05] MEDS ORDERED: Sodium Chloride 0.9% 1,000 ML IV ONE (08:35)
--- NOTE | 2017-08-05 09:12 | CP.PCM.PN ---
Subjective - Date & Time of Evaluation Date of Evaluation: 08/05/17 Time of Evaluation: 09:08 - Subjective Subjective: Patient seen and examined, no acute events overnight. He denies abdominal pain , nausea, vomiting, fever/chills. He had two brown bowel movements this morning. Review of vitals from today shows elevated BP. Objective - Vital Signs/Intake and Output Vital Signs (last 24 hours): Temp Pulse Resp BP Pulse Ox 98.9 F 77 17 166/79 H 100 08/05/17 08:53 08/05/17 08:53 08/05/17 08:53 08/05/17 08:53 08/05/17 08:53 Intake and Output: 08/05/17 08/05/17 06:59 18:59 Intake Total 2230.1 10 Output Total 1000 Balance 1230.1 10 - Medications Medications: Current Medications Chlordiazepoxide (Librium) 25 mg PO Q8 PRN PRN Reason: Anxiety Last Admin: 08/04/17 22:45 Dose: 25 mg Piperacillin Sod/Tazobactam (Sod 3.375 gm/ Sodium Chloride) 100 mls @ 200 mls/ hr IVPB Q8H [facility] PRN Reason: Protocol Last Admin: 08/05/17 05:50 Dose: 200 mls/hr Vancomycin/Sodium Chloride (Vancomycin 1 Gm/Ns 200 Ml) 1 gm in 200 mls @ 166.7 mls/hr IVPB Q24H [facility] PRN Reason: Protocol Stop: 08/09/17 14:01 Last Admin: 08/04/17 14:20 Dose: 166.7 mls/hr Lactulose (Enulose) 20 gm PO Q12 [facility] Last Admin: 08/04/17 22:20 Dose: 20 gm Multivitamins/Vitamin C (Multi-Delyn Liquid) 5 ml PO DAILY [facility] Last Admin: 08/04/17 11:06 Dose: 5 ml Niacin (Niacin) 250 mg PO Q12 [facility] Last Admin: 08/04/17 22:45 Dose: 250 mg Pantoprazole Sodium (Protonix Inj) 40 mg IVP Q12H [facility] Last Admin: 08/04/17 22:00 Dose: 40 mg Thiamine HCl (Vitamin B1 Inj) 200 mg IV Q8H [facility] Last Admin: 08/05/17 05:45 Dose: 200 mg - Labs Labs: 08/05/17 06:28 08/05/17 06:26 PT 20.4 SECONDS (9.7-12.2) H 08/05/17 06:32 INR 1.8 08/05/17 06:32 APTT 38 SECONDS (21-34) H 08/05/17 06:32 Assessment and Plan - Assessment and Plan (Free Text) Assessment: DM HTN Psoriasis Decompensated ETOH cirrhosis Acute renal insufficiency Sepsis Anemia - s/p EGD today showing no gross abnormalities Plan: - Advance diet as tolerated - May discontinue octreotide infusion - H/H stable, continue to monitor - Continue with lactulose for HE prevention - ETOH cessation counseling - Suggest triple phase liver CT imaging when creatinine has returned to baseline , can be performed electively as outpatient - Obtain AFP - Continue with antibiotic therapy as per medical team - No further planned GI intervention, will sign off case. Please reconsult as necessary, thank you.
[2017-08-05] MEDS: Multiple Vitamins Oral Solution PO SCH (10:31)
[2017-08-05] MEDS ORDERED: Influenza Vaccine 60 mcg/0.5 mL SYR (4YR UP) IM ONE (11:50)
[2017-08-05] MEDS: Vancomycin 1 gm/NS 200 ml 1 GM/200 ML BAG IVPB SCH (13:56)
[2017-08-05] MEDS: Piperacill/Tazo 3.375gm in Dex 3.375 GM/50 ML BAG IVPB SCH ×2 (14:00→22:30)
--- NOTE | 2017-08-05 16:45 | CARD ---
APPROVED REPORT EKG Measurement Heart [id number] <Conclusion> Sinus tachycardia Possible Anterior infarct, age undetermined Abnormal ECG
--- NOTE | 2017-08-05 18:01 | CP.PCM.PN ---
Subjective - Date & Time of Evaluation Date of Evaluation: 08/05/17 Time of Evaluation: 11:00 - Subjective Subjective: Patient came back from EGD which preliminary reveals no vaericeal lesions only gastritis. Patient is not febrile and not tachycardia. Tolerating oral clear diet. Objective - Vital Signs/Intake and Output Vital Signs (last 24 hours): Temp Pulse Resp BP Pulse Ox 99.3 F 114 H 24 161/100 H 100 08/05/17 16:00 08/05/17 17:00 08/05/17 17:00 08/05/17 17:30 08/05/17 16:00 Intake and Output: 08/05/17 08/05/17 06:59 18:59 Intake Total 2230.1 1877 Output Total 1000 700 Balance 1230.1 1177 - Medications Medications: Current Medications Chlordiazepoxide (Librium) 25 mg PO Q8 PRN PRN Reason: Anxiety Last Admin: 08/05/17 10:31 Dose: 25 mg Famotidine (Pepcid) 20 mg PO DAILY [facility] Last Admin: 08/05/17 10:31 Dose: 20 mg Vancomycin/Sodium Chloride (Vancomycin 1 Gm/Ns 200 Ml) 1 gm in 200 mls @ 166.7 mls/hr IVPB Q24H [facility] PRN Reason: Protocol Stop: 08/09/17 14:01 Last Admin: 08/05/17 13:56 Dose: 166.7 mls/hr Piperacillin Sod/Tazobactam Sod (Zosyn 3.375 Gm Iv Premix) 3.375 gm in 50 mls @ 100 mls/hr IVPB Q8H [facility] PRN Reason: Protocol Last Admin: 08/05/17 14:00 Dose: 100 mls/hr Lactulose (Enulose) 20 gm PO Q12 [facility] Last Admin: 08/05/17 10:32 Dose: Not Given Metoprolol Tartrate (Lopressor) 25 mg PO BID [facility] Last Admin: 08/05/17 17:30 Dose: 25 mg Multivitamins/Vitamin C (Multi-Delyn Liquid) 5 ml PO DAILY [facility] Last Admin: 08/05/17 10:31 Dose: 5 ml Niacin (Niacin) 250 mg PO Q12 [facility] Last Admin: 08/05/17 10:31 Dose: 250 mg Thiamine HCl (Vitamin B1 Inj) 200 mg IV Q8H [facility] Last Admin: 08/05/17 13:56 Dose: 200 mg - Labs Labs: 08/05/17 06:28 08/05/17 06:26 PT 20.4 SECONDS (9.7-12.2) H 08/05/17 06:32 INR 1.8 08/05/17 06:32 APTT 38 SECONDS (21-34) H 08/05/17 06:32 - Constitutional Appears: Well, Non-toxic - Head Exam Head Exam: ATRAUMATIC, NORMAL INSPECTION - Respiratory Exam Respiratory Exam: NORMAL BREATHING PATTERN - Cardiovascular Exam Cardiovascular Exam: REGULAR RHYTHM, +S1, +S2, +S4 - GI/Abdominal Exam GI & Abdominal Exam: Soft - Skin Skin Exam: Rash Assessment and Plan - Assessment and Plan (Free Text) Plan: Sepsis: lactic resolving, not on pressors, continue vanco and zosyn, de- escalate abx as per culture and sensitivity -EGD reveals no variceal bleeding, d/c octrotide, and switch to protonix q12, as per GI ok to start oral cler diet -Anemia: monitor serial cbc, keep hb/hct >8/24 -HTN: was on propanolol, will add lopressor as patient does not need non- cardioselective beta rigo -ETOH use/PRN librium, no signs or symptoms of Dts -continue dvt/pud ppx Patient remains hemodynamically stable.
--- NOTE | 2017-08-05 23:56 | CP.PCM.PN ---
Subjective - Date & Time of Evaluation Date of Evaluation: 08/05/17 Time of Evaluation: 23:56 - Subjective Subjective: Patient is feeling better. The leg swelling is still noted. No more bleeding Vital signs reviewed No neck vein distention noted Chest good air entry bilaterally, no wheezing or rales noted CVS regular heart sound, no murmur noted Abdomen soft, nontender. 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 Will closely monitor. Objective - Vital Signs/Intake and Output Vital Signs (last 24 hours): Temp Pulse Resp BP Pulse Ox 98.6 F 85 22 150/84 97 08/05/17 20:00 08/05/17 20:00 08/05/17 20:00 08/05/17 20:00 08/05/17 20:00 Intake and Output: 08/05/17 08/06/17 18:59 06:59 Intake Total 1997 240 Output Total 700 300 Balance 1297 -60 - Medications Medications: Current Medications Chlordiazepoxide (Librium) 25 mg PO Q8 PRN PRN Reason: Anxiety Last Admin: 08/05/17 22:50 Dose: 25 mg Famotidine (Pepcid) 20 mg PO DAILY [facility] Last Admin: 08/05/17 10:31 Dose: 20 mg Vancomycin/Sodium Chloride (Vancomycin 1 Gm/Ns 200 Ml) 1 gm in 200 mls @ 166.7 mls/hr IVPB Q24H [facility] PRN Reason: Protocol Stop: 08/09/17 14:01 Last Admin: 08/05/17 13:56 Dose: 166.7 mls/hr Piperacillin Sod/Tazobactam Sod (Zosyn 3.375 Gm Iv Premix) 3.375 gm in 50 mls @ 100 mls/hr IVPB Q8H [facility] PRN Reason: Protocol Last Admin: 08/05/17 22:30 Dose: 100 mls/hr Lactulose (Enulose) 20 gm PO Q12 [facility] Last Admin: 08/05/17 22:00 Dose: Not Given Metoprolol Tartrate (Lopressor) 25 mg PO BID [facility] Last Admin: 08/05/17 17:30 Dose: 25 mg Multivitamins/Vitamin C (Multi-Delyn Liquid) 5 ml PO DAILY [facility] Last Admin: 08/05/17 10:31 Dose: 5 ml Niacin (Niacin) 250 mg PO Q12 [facility] Last Admin: 08/05/17 22:30 Dose: 250 mg Thiamine HCl (Vitamin B1 Inj) 200 mg IV Q8H [facility] Last Admin: 08/05/17 22:30 Dose: 200 mg - Labs Labs: 08/05/17 06:28 08/05/17 06:26 PT 20.4 SECONDS (9.7-12.2) H 08/05/17 06:32 INR 1.8 08/05/17 06:32 APTT 38 SECONDS (21-34) H 08/05/17 06:32
[2017-08-06] MEDS: Piperacill/Tazo 3.375gm in Dex 3.375 GM/50 ML BAG IVPB SCH ×3 (06:15→22:17)
[2017-08-06] MEDS: Thiamine 100 mg/ml Inj IV SCH ×3 (06:15→22:16)
[2017-08-06 06:38] LABS: BASO % 0.2 % (0.0-2.0); EOS # 0.2 K/uL (0.0-0.7); EOS % 4.3 % (0.0-4.0); HEMOGLOBIN 8.6 g/dL (12.0-18.0); LYMPH # 1.1 K/uL (1.0-4.3); LYMPH % 22.8 % (20.0-40.0); MEAN CELL VOLUME 86.7 fL (80.0-94.0); MEAN CORPUSCULAR HEMOGLOBIN 29.5 pg (27.0-31.0); MEAN PLATELET VOLUME 7.4 fL (7.2-11.7); MONO # 0.6 K/uL (0.0-0.8); MONO % 11.8 % (0.0-10.0); NEUT # 2.9 K/uL (1.8-7.0); NEUT % 60.9 % (50.0-75.0); NRBC % 0.1 % (0.0-2.0); RBC 2.92 Mil/uL (4.40-5.90); RED CELL DISTRIBUTION WIDTH 16.8 % (11.5-14.5); WHITE BLOOD COUNT 4.8 K/uL (4.8-10.8)
[2017-08-06 06:55] LABS: ALB/GLOB RATIO 0.6 (1.0-2.1); ALBUMIN 2.1 g/dL (3.5-5.0); ALT/SGPT 45 U/L (21-72); AST/SGOT 104 U/L (17-59); BLOOD UREA NITROGEN 5 mg/dL (9-20); CALCIUM 6.5 mg/dl (8.6-10.4); GFR AFRICAN-AMERICAN > 60; GFR NON-AFRICAN AMERICAN > 60
[2017-08-06] MEDS: Multiple Vitamins Oral Solution PO SCH (11:07)
[2017-08-06] MEDS: Vancomycin 1 gm/NS 200 ml 1 GM/200 ML BAG IVPB SCH (13:29)
[2017-08-06] MEDS ORDERED: Potassium Chloride 20 mEq ER Tab PO STA (15:47)
[2017-08-07] MEDS: Thiamine 100 mg/ml Inj IV SCH ×3 (05:43→21:24)
[2017-08-07] MEDS: Piperacill/Tazo 3.375gm in Dex 3.375 GM/50 ML BAG IVPB SCH ×3 (05:43→21:30)
[2017-08-07] MEDS: Potassium Chloride 20 mEq ER Tab PO SCH (10:25)
[2017-08-07] MEDS: Multiple Vitamins Oral Solution PO SCH (10:26)
[2017-08-07] MEDS: Vancomycin 1 gm/NS 200 ml 1 GM/200 ML BAG IVPB SCH (13:30)
--- NOTE | 2017-08-07 18:45 | CP.PCM.PN ---
Subjective - Date & Time of Evaluation Date of Evaluation: 08/06/17 Time of Evaluation: 18:45 - Subjective Subjective: Patient is feeling better. The leg swelling is still noted. No more bleeding Vital signs reviewed No neck vein distention noted Chest good air entry bilaterally, no wheezing or rales noted CVS regular heart sound, no murmur noted Abdomen soft, nontender. 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 Will closely monitor. Objective - Vital Signs/Intake and Output Vital Signs (last 24 hours): Temp Pulse Resp BP Pulse Ox 98.6 F 86 20 130/76 100 08/07/17 08:59 08/07/17 16:00 08/07/17 08:59 08/07/17 10:27 08/07/17 08:59 Intake and Output: 08/07/17 08/07/17 06:59 18:59 Output Total 200 Balance -200 - Medications Medications: Current Medications Chlordiazepoxide (Librium) 25 mg PO Q8 PRN PRN Reason: Anxiety Last Admin: 08/05/17 22:50 Dose: 25 mg Famotidine (Pepcid) 20 mg PO DAILY [facility] Last Admin: 08/07/17 10:25 Dose: 20 mg Vancomycin/Sodium Chloride (Vancomycin 1 Gm/Ns 200 Ml) 1 gm in 200 mls @ 166.7 mls/hr IVPB Q24H [facility] PRN Reason: Protocol Stop: 08/09/17 14:01 Last Admin: 08/07/17 13:30 Dose: 166.7 mls/hr Piperacillin Sod/Tazobactam Sod (Zosyn 3.375 Gm Iv Premix) 3.375 gm in 50 mls @ 100 mls/hr IVPB Q8H [facility] PRN Reason: Protocol Last Admin: 08/07/17 15:50 Dose: 100 mls/hr Lactulose (Enulose) 20 gm PO Q12 [facility] Last Admin: 08/07/17 10:24 Dose: 20 gm Metoprolol Tartrate (Lopressor) 25 mg PO BID [facility] Last Admin: 08/07/17 10:27 Dose: 25 mg Multivitamins/Vitamin C (Multi-Delyn Liquid) 5 ml PO DAILY [facility] Last Admin: 08/07/17 10:26 Dose: 5 ml Niacin (Niacin) 250 mg PO Q12 [facility] Last Admin: 08/07/17 10:26 Dose: 250 mg Potassium Chloride (K-Dur 20 Meq Er Tab) 40 meq PO DAILY [facility] Stop: 08/10/17 10:01 Last Admin: 08/07/17 10:25 Dose: 40 meq Thiamine HCl (Vitamin B1 Inj) 200 mg IV Q8H [facility] Last Admin: 08/07/17 13:29 Dose: 200 mg - Labs Labs: 08/06/17 06:35 08/06/17 06:35 PT 20.4 SECONDS (9.7-12.2) H 08/05/17 06:32 INR 1.8 08/05/17 06:32 APTT 38 SECONDS (21-34) H 08/05/17 06:32
--- NOTE | 2017-08-07 18:46 | CP.PCM.PN ---
Subjective - Date & Time of Evaluation Date of Evaluation: 08/07/17 Time of Evaluation: 18:45 - Subjective Subjective: Patient is sitting up. Comfortable. No active bleeding noted. No fever On antibiotic. Vital signs stable. Chest good air entry regular heart stent. Skin having significant psoriatic skin lesions Laboratory Nonspecific Assessment and recommendation: Sputum culture is positive for Escherichia coli Currently on vancomycin and Zosyn. We'll continue the antibiotic. Will follow the patient Objective - Vital Signs/Intake and Output Vital Signs (last 24 hours): Temp Pulse Resp BP Pulse Ox 98.6 F 86 20 130/76 100 08/07/17 08:59 08/07/17 16:00 08/07/17 08:59 08/07/17 10:27 08/07/17 08:59 Intake and Output: 08/07/17 08/07/17 06:59 18:59 Output Total 200 Balance -200 - Medications Medications: Current Medications Chlordiazepoxide (Librium) 25 mg PO Q8 PRN PRN Reason: Anxiety Last Admin: 08/05/17 22:50 Dose: 25 mg Famotidine (Pepcid) 20 mg PO DAILY [facility] Last Admin: 08/07/17 10:25 Dose: 20 mg Vancomycin/Sodium Chloride (Vancomycin 1 Gm/Ns 200 Ml) 1 gm in 200 mls @ 166.7 mls/hr IVPB Q24H [facility] PRN Reason: Protocol Stop: 08/09/17 14:01 Last Admin: 08/07/17 13:30 Dose: 166.7 mls/hr Piperacillin Sod/Tazobactam Sod (Zosyn 3.375 Gm Iv Premix) 3.375 gm in 50 mls @ 100 mls/hr IVPB Q8H [facility] PRN Reason: Protocol Last Admin: 08/07/17 15:50 Dose: 100 mls/hr Lactulose (Enulose) 20 gm PO Q12 [facility] Last Admin: 08/07/17 10:24 Dose: 20 gm Metoprolol Tartrate (Lopressor) 25 mg PO BID [facility] Last Admin: 08/07/17 10:27 Dose: 25 mg Multivitamins/Vitamin C (Multi-Delyn Liquid) 5 ml PO DAILY [facility] Last Admin: 08/07/17 10:26 Dose: 5 ml Niacin (Niacin) 250 mg PO Q12 [facility] Last Admin: 08/07/17 10:26 Dose: 250 mg Potassium Chloride (K-Dur 20 Meq Er Tab) 40 meq PO DAILY [facility] Stop: 08/10/17 10:01 Last Admin: 08/07/17 10:25 Dose: 40 meq Thiamine HCl (Vitamin B1 Inj) 200 mg IV Q8H [facility] Last Admin: 08/07/17 13:29 Dose: 200 mg - Labs Labs: 08/06/17 06:35 08/06/17 06:35 PT 20.4 SECONDS (9.7-12.2) H 08/05/17 06:32 INR 1.8 08/05/17 06:32 APTT 38 SECONDS (21-34) H 08/05/17 06:32
[2017-08-08] MEDS: Thiamine 100 mg/ml Inj IV SCH ×3 (05:39→21:28)
[2017-08-08] MEDS: Piperacill/Tazo 3.375gm in Dex 3.375 GM/50 ML BAG IVPB SCH ×3 (05:41→21:32)
[2017-08-08] MEDS: Potassium Chloride 20 mEq ER Tab PO SCH (09:58)
[2017-08-08] MEDS: Multiple Vitamins Oral Solution PO SCH (09:58)
[2017-08-08 12:13] LABS: BASO # 0.1 K/uL (0.0-0.2); BASO % 0.9 % (0.0-2.0); EOS # 0.2 K/uL (0.0-0.7); EOS % 2.5 % (0.0-4.0); HEMOGLOBIN 9.4 g/dL (12.0-18.0); LYMPH # 1.7 K/uL (1.0-4.3); LYMPH % 21.4 % (20.0-40.0); MEAN CELL VOLUME 88.2 fL (80.0-94.0); MEAN CORPUSCULAR HEMOGLOBIN 29.6 pg (27.0-31.0); MEAN CORPUSCULAR HGB CONC 33.6 g/dL (33.0-37.0); MEAN PLATELET VOLUME 7.4 fL (7.2-11.7); MONO # 1.1 K/uL (0.0-0.8); MONO % 13.4 % (0.0-10.0); NEUT % 61.8 % (50.0-75.0); RBC 3.17 Mil/uL (4.40-5.90); RED CELL DISTRIBUTION WIDTH 17.6 % (11.5-14.5); WHITE BLOOD COUNT 8.1 K/uL (4.8-10.8)
[2017-08-08 12:33] LABS: ALB/GLOB RATIO 0.6 (1.0-2.1); ALBUMIN 2.3 g/dL (3.5-5.0); ALT/SGPT 44 U/L (21-72); AST/SGOT 101 U/L (17-59); BLOOD UREA NITROGEN 8 mg/dL (9-20); CALCIUM 7.8 mg/dl (8.6-10.4); GFR AFRICAN-AMERICAN > 60; GFR NON-AFRICAN AMERICAN > 60
[2017-08-08] MEDS: Vancomycin 1 gm/NS 200 ml 1 GM/200 ML BAG IVPB SCH (13:18)
--- NOTE | 2017-08-08 18:36 | CP.PCM.PN ---
Subjective - Date & Time of Evaluation Date of Evaluation: 08/08/17 Time of Evaluation: 18:35 - Subjective Subjective: Patient is feeling much better, no chest pain noted. Eating well. Diarrhea negative Vital signs reviewed No neck vein distention noted Chest good air entry bilaterally, no wheezing or rales noted CVS regular heart sound, no murmur noted Abdomen soft, nontender. 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 Hemoglobin and hematocrit is stable Assessment and recommendation: 41-year-old male with alcoholic liver disease with liver cirrhosis and GI bleed. Diabetes Psoriatic skin disease. Depression. Will follow the patient. Possible discharge in the morning Objective - Vital Signs/Intake and Output Vital Signs (last 24 hours): Temp Pulse Resp BP Pulse Ox 98.2 F 77 18 155/70 H 100 08/08/17 15:55 08/08/17 15:55 08/08/17 15:55 08/08/17 17:35 08/08/17 15:55 Intake and Output: 08/08/17 08/08/17 06:59 18:59 Intake Total 700 Output Total 1200 Balance -500 - Medications Medications: Current Medications Chlordiazepoxide (Librium) 25 mg PO Q8 PRN PRN Reason: Anxiety Last Admin: 08/05/17 22:50 Dose: 25 mg Famotidine (Pepcid) 20 mg PO DAILY [facility] Last Admin: 08/08/17 09:57 Dose: 20 mg Vancomycin/Sodium Chloride (Vancomycin 1 Gm/Ns 200 Ml) 1 gm in 200 mls @ 166.7 mls/hr IVPB Q24H [facility] PRN Reason: Protocol Stop: 08/09/17 14:01 Last Admin: 08/08/17 13:18 Dose: 166.7 mls/hr Piperacillin Sod/Tazobactam Sod (Zosyn 3.375 Gm Iv Premix) 3.375 gm in 50 mls @ 100 mls/hr IVPB Q8H [facility] PRN Reason: Protocol Last Admin: 08/08/17 13:32 Dose: 100 mls/hr Lactulose (Enulose) 20 gm PO Q12 [facility] Last Admin: 08/08/17 09:58 Dose: 20 gm Metoprolol Tartrate (Lopressor) 25 mg PO BID [facility] Last Admin: 08/08/17 17:35 Dose: 25 mg Multivitamins/Vitamin C (Multi-Delyn Liquid) 5 ml PO DAILY [facility] Last Admin: 08/08/17 09:58 Dose: 5 ml Niacin (Niacin) 250 mg PO Q12 [facility] Last Admin: 08/08/17 09:58 Dose: 250 mg Potassium Chloride (K-Dur 20 Meq Er Tab) 40 meq PO DAILY [facility] Stop: 08/10/17 10:01 Last Admin: 08/08/17 09:58 Dose: 40 meq Thiamine HCl (Vitamin B1 Inj) 200 mg IV Q8H [facility] Last Admin: 08/08/17 13:18 Dose: 200 mg - Labs Labs: 08/08/17 12:02 08/08/17 12:02 PT 20.4 SECONDS (9.7-12.2) H 08/05/17 06:32 INR 1.8 08/05/17 06:32 APTT 38 SECONDS (21-34) H 08/05/17 06:32
[2017-08-08] MEDS: Magnesium Sulfate 1 gm in D5W 1 GM/100 ML BAG IVPB SCH ×2 (18:44→20:14)
[2017-08-09] MEDS: Thiamine 100 mg/ml Inj IV SCH ×2 (05:29→13:35)
[2017-08-09] MEDS: Piperacill/Tazo 3.375gm in Dex 3.375 GM/50 ML BAG IVPB SCH ×2 (05:30→13:36)
[2017-08-09 07:35] LABS: BASO % 0.5 % (0.0-2.0); EOS # 0.2 K/uL (0.0-0.7); EOS % 2.8 % (0.0-4.0); HEMOGLOBIN 8.5 g/dL (12.0-18.0); LYMPH # 1.5 K/uL (1.0-4.3); MEAN CELL VOLUME 87.3 fL (80.0-94.0); MEAN CORPUSCULAR HEMOGLOBIN 29.6 pg (27.0-31.0); MEAN CORPUSCULAR HGB CONC 33.9 g/dL (33.0-37.0); MEAN PLATELET VOLUME 7.9 fL (7.2-11.7); MONO # 1.2 K/uL (0.0-0.8); NEUT # 3.6 K/uL (1.8-7.0); NEUT % 55.7 % (50.0-75.0); RBC 2.87 Mil/uL (4.40-5.90); RED CELL DISTRIBUTION WIDTH 17.6 % (11.5-14.5); WHITE BLOOD COUNT 6.4 K/uL (4.8-10.8)
[2017-08-09] MEDS: Multiple Vitamins Oral Solution PO SCH (10:22)
[2017-08-09] MEDS: Potassium Chloride 20 mEq ER Tab PO SCH (10:22)
[2017-08-09] MEDS: Vancomycin 1 gm/NS 200 ml 1 GM/200 ML BAG IVPB SCH (13:37)
[2017-08-09 16:04] VITALS: RESP 18; TEMP 98.3; O2SAT 98
[2017-08-09 17:43] VITALS: BP 159/96
[2017-08-09 18:25] VITALS: PULSE 85
[2017-08-09 18:48] LABS: BETA-HYDROXYBUTYRIC ACID 25 mcg/mL
--- NOTE | 2017-08-09 19:51 | CP.PCM.DIS ---
Provider - Provider Date of Admission: 08/03/17 14:20 Attending physician: Damaris Edwards MD Time Spent in preparation of Discharge (in minutes): 45 Hospital Course - Lab Results Lab Results: Micro Results 08/06/17 12:27 Naris MRSA Culture - Final MRSA NOT DETECTED 08/03/17 13:45 Blood-Venous Blood Culture - Final Coagulase Neg Staphylococcus 08/03/17 13:45 Blood-Venous Gram Stain - Final 08/03/17 Unknown Sputum Gram Stain - Final 08/03/17 Unknown Sputum Sputum Culture - Final Escherichia Coli 08/03/17 13:30 Blood-Venous S.aureus & Coag-Neg Staph PNA FISH - Final 08/03/17 13:30 Blood-Venous Blood Culture - Final Coagulase Neg Staphylococcus 08/03/17 13:30 Blood-Venous Gram Stain - Final 08/04/17 06:36 Urine,Clean Catch Urine Culture - Final No Growth (<1,000 CFU/ML) 08/03/17 16:09 Nose MRSA Culture (Admit) - Final MRSA NOT DETECTED Most Recent Lab Values WBC 6.4 K/uL (4.8-10.8) 08/09/17 07:24 RBC 2.87 Mil/uL (4.40-5.90) L 08/09/17 07:24 Hgb 8.5 g/dL (12.0-18.0) L 08/09/17 07:24 Hct 25.0 % (35.0-51.0) L 08/09/17 07:24 MCV 87.3 fL (80.0-94.0) 08/09/17 07:24 MCH 29.6 pg (27.0-31.0) 08/09/17 07:24 MCHC 33.9 g/dL (33.0-37.0) 08/09/17 07:24 RDW 17.6 % (11.5-14.5) H 08/09/17 07:24 Plt Count 52 K/uL (130-400) L 08/09/17 07:24 MPV 7.9 fL (7.2-11.7) 08/09/17 07:24 Neut % (Auto) 55.7 % (50.0-75.0) 08/09/17 07:24 Lymph % (Auto) 23.0 % (20.0-40.0) 08/09/17 07:24 [place] % (Auto) 18.0 % (0.0-10.0) H 08/09/17 07:24 Eos % (Auto) 2.8 % (0.0-4.0) 08/09/17 07:24 Baso % (Auto) 0.5 % (0.0-2.0) 08/09/17 07:24 Neut # (Auto) 3.6 K/uL (1.8-7.0) 08/09/17 07:24 Lymph # (Auto) 1.5 K/uL (1.0-4.3) 08/09/17 07:24 [place] # (Auto) 1.2 K/uL (0.0-0.8) H 08/09/17 07:24 Eos # (Auto) 0.2 K/uL (0.0-0.7) 08/09/17 07:24 Baso # (Auto) 0.0 K/uL (0.0-0.2) 08/09/17 07:24 Differential Comment 08/03/17 17:13 PT 20.4 SECONDS (9.7-12.2) H 08/05/17 06:32 INR 1.8 08/05/17 06:32 APTT 38 SECONDS (21-34) H 08/05/17 06:32 Sodium 137 mmol/L (132-148) 08/08/17 12:02 Potassium 4.5 mmol/L (3.6-5.2) 08/08/17 12:02 Chloride 104 mmol/L (98-107) 08/08/17 12:02 Carbon Dioxide 23 mmol/L (22-30) 08/08/17 12:02 Anion Gap 15 (10-20) 08/08/17 12:02 BUN 8 mg/dL (9-20) L 08/08/17 12:02 Creatinine 1.1 mg/dL (0.8-1.5) 08/08/17 12:02 Est GFR ( Amer) > 60 08/08/17 12:02 Est GFR (Non-Af Amer) > 60 08/08/17 12:02 POC Glucose (mg/dL) 112 mg/dL (65-110) H 08/09/17 16:38 Random Glucose 124 mg/dL (75-110) H 08/08/17 12:02 Lactic Acid 6.2 mmol/L (0.7-2.1) H* 08/03/17 21:35 Calcium 7.8 mg/dl (8.6-10.4) L 08/08/17 12:02 Phosphorus 2.3 mg/dL (2.5-4.5) L 08/05/17 06:26 Magnesium 1.2 mg/dL (1.6-2.3) L 08/08/17 12:02 Total Bilirubin 2.9 mg/dL (0.2-1.3) H 08/08/17 12:02 AST 101 U/L (17-59) H 08/08/17 12:02 ALT 44 U/L (21-72) 08/08/17 12:02 Alkaline Phosphatase 141 U/L (38-126) H D 08/08/17 12:02 Ammonia 93 umol/L (9-33) H D 08/03/17 13:04 Troponin I 0.0390 ng/mL (0.00-0.120) 08/03/17 11:20 Total Protein 6.1 g/dL (6.3-8.3) L 08/08/17 12:02 Albumin 2.3 g/dL (3.5-5.0) L 08/08/17 12:02 Globulin 3.8 gm/dL (2.2-3.9) 08/08/17 12:02 Albumin/Globulin Ratio 0.6 (1.0-2.1) L 08/08/17 12:02 Ethanolamine 25 mg/dL H 08/03/17 07:22 Beta-Hydroxybutyric Acd 25 mcg/mL 08/03/17 17:13 Urine Color Yellow (YELLOW) 08/04/17 06:54 Urine Clarity Clear (Clear) 08/04/17 06:54 Urine pH 8.0 (5.0-8.0) 08/04/17 06:54 Ur Specific [place] 1.015 (1.003-1.030) 08/04/17 06:54 Urine Protein Negative mg/dL (NEGATIVE) 08/04/17 06:54 Urine Glucose (UA) Normal mg/dL (Normal) 08/04/17 06:54 Urine Ketones Negative mg/dL (NEGATIVE) 08/04/17 06:54 Urine Blood Negative (NEGATIVE) 08/04/17 06:54 Urine Nitrate Negative (NEGATIVE) 08/04/17 06:54 Urine Bilirubin Negative (NEGATIVE) 08/04/17 06:54 Urine Urobilinogen Normal mg/dL (0.2-1.0) 08/04/17 06:54 Ur Leukocyte Esterase Neg Lexie/uL (Negative) 08/04/17 06:54 Urine WBC (Auto) 1 /hpf (0-5) 08/04/17 06:54 Urine RBC (Auto) 1 /hpf (0-3) 08/04/17 06:54 Ur Squamous Epith Cells < 1 /hpf (0-5) 08/04/17 06:54 Random Vancomycin 6.17 ug/mL 08/04/17 06:17 Alcohol, Quantitative 169 mg/dl (0-10) H 08/03/17 11:20 Methyl Alcohol Level None detected 08/03/17 07:22 Isopropanol None detected 08/03/17 07:22 Acetone Level None detected 08/03/17 07:22 Serum Ketones Negative (NEGATIVE) 08/03/17 11:20 Influenza Typ A,B (EIA) Negative for flu a/b (NEGATIVE) 08/03/17 12:12 Blood Type AB POSITIVE 08/03/17 11:20 Antibody Screen Negative 08/03/17 11:20 - Hospital Course Hospital Course: HPI: Patient is a 41yo male with past medical history of hypertension, alcohol- induced liver cirrhosis, hypertension, diabetes, psoriasis that presented with complaints of rectal bleeding over the last 3 weeks. He reported that over the last 2-3 weeks he has had flu-like symptoms including malaise and chills. He reported having went to his PMD, who had prescribed an antibiotic. He stated that his rectal bleeding was intermittent, bright red and with stool in small amounts. He is a daily drinker with approximately 1-2 pints of vodka per day. His last reported drink was 3 days prior however he admits that he may have had a drink prior to presentation. Patient had been taking lactulose for his liver cirrhosis however ran out 3 months prior. Patient denied chest pain, palpitations, SOB, abdominal pain, vomiting, focal weakness, numbness, tingling. The patient was seen by me in my office, at the time patient was doing extremely well, he was not drinking alcohol for quite some time. Patient was able to manage his medications well. He was able to control his sugar better. But he had a somewhat family issues, he started drinking alcohol for the last 3 days, and he was having chronic rectal bleeding. Gotten worse recently. PMHx: as stated above PSHx: history of endoscopy/colonoscopy Allergies: NKDA Family hx: Father: history of heart transplant; Mother: hypertension/diabetes Social Hx: Daily alcohol consumption (~1pint of vodka per day), denies illicit drug use and former tobacco use Endoscopy hx: Endoscopy/Colonoscopy completed in 10/2015 - revealed grade 1 esophageal varices, LA Grade B Esophagitis, internal hemorrhoids, edema of the ascending colon ROS: the chart Vital signs reviewed No neck vein distention noted Chest good air entry bilaterally, no wheezing or rales noted CVS regular heart sound, no murmur noted abdominal distention noted pedal edema noted 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 patient overall prognosis is very poor, will continue the IICU monitoring. GI consultation Blood transfusion Protonix Octreotide as needed. Is in the hospital: Patient was seen by comic artist. Patient was initially placed on Protonix drip, I to type II. Upper endoscopy done, no evidence of active bleeding noted. Rectal bleeding most likely varicose bleed. After the blood transfusion platelets stable. Patient also had evidence for alcoholic withdrawal symptoms. Placed on medications. Patient slowly improved markedly. Today patient was doing well. He was complaining of less shaking. Patient will be discharged home today. He will follow-up as an outpatient. The patient's sputum culture was positive for Escherichia coli and also blood culture coagulase-negative staph aureus. Patient will continue to receive levofloxacin as an outpatient. Will follow the patient Discharge Exam - Head Exam Head Exam: ATRAUMATIC, NORMAL INSPECTION Discharge Plan - Discharge Medications Prescriptions: levoFLOXacin [Levaquin] 500 mg PO DAILY #5 tab - Follow Up Plan Condition: SERIOUS Disposition: HOME/ ROUTINE Instructions: Heart Healthy Diet, Heart Failure, Adult (DC), Gastrointestinal Bleeding (DC), Anemia of Chronic Disease (DC), Sepsis, Adult (DC), Alcohol Abuse and Alcoholism (DC), Upper GI Endoscopy (DC), Effects of Alcohol on Your Health Additional Instructions: FOLLOW UP WITH DR. EDWARDS IN THE OFFICE IN 1-2 DAYS CONTINUE HOME MEDICATIONS PER MED REC RETURN TO ER FOR ANY WORSENING SYMPTOMS Referrals: Damaris Edwards MD [Staff Provider] -
== END 2017-08-09 18:19 | disposition home or self-care (01) | DRG 584 ==
LOC: C.ER 10:01 → C.9E 14:20 → C.9I 16:15 → C.6T 08-06 08:51
PROVIDERS: ADMIT Internal Medicine; ATTEND Internal Medicine
PROC: 30233N1 Transfusion of Nonautologous Red Blood Cells into Peripheral Vein, Percutaneous Approach (ICD-10-PCS; 2017-08-05)
PROC: 0DJ08ZZ Inspection of Upper Intestinal Tract, Via Natural or Artificial Opening Endoscopic (ICD-10-PCS; 2017-08-05)
PROC: 30233L1 Transfusion of Nonautologous Fresh Plasma into Peripheral Vein, Percutaneous Approach (ICD-10-PCS; principal; 2017-08-05 08:56)
DX: A41.9 Sepsis, unspecified organism (principal); R65.21 Severe sepsis with septic shock; D68.9 Coagulation defect, unspecified; I11.0 Hypertensive heart disease with heart failure; I50.9 Heart failure, unspecified; D62 Acute posthemorrhagic anemia; L40.50 Arthropathic psoriasis, unspecified; R56.9 Unspecified convulsions; F10.230 Alcohol dependence with withdrawal, uncomplicated; K70.30 Alcoholic cirrhosis of liver without ascites; K62.5 Hemorrhage of anus and rectum; F41.9 Anxiety disorder, unspecified; E11.9 Type 2 diabetes mellitus without complications; E78.00 Pure hypercholesterolemia, unspecified; M06.9 Rheumatoid arthritis, unspecified; F10.220 Alcohol dependence with intoxication, uncomplicated; Y90.6 Blood alcohol level of 120-199 mg/100 ml; R55 Syncope and collapse; R25.1 Tremor, unspecified; R00.0 Tachycardia, unspecified

== ENCOUNTER 2017-09-07 22:10 | Inpatient (IN) | payer MEDICAID ==
[2017-09-07] MEDS ORDERED: Sodium Chloride 0.9% 1,000 ML IV ONE ×2 (22:50→23:15)
--- NOTE | 2017-09-07 22:50 | C.PDOC ---
History Of Present Illness 41 year old male with PMHx of severe psoriasis, liver cirrhosis and alcohol abuse presents to the ED c/o bleeding from skin and skin peeling of him. Patient reports he has chills, patient rates the pain at 8/10. Patient denies fever, CP, SOB. Unknown new antibiotics exposure. Time Seen by Provider: 09/07/17 22:49 History Per: Patient History/Exam Limitations: no limitations Onset/Duration Of Symptoms: Days Current Symptoms Are (Timing): Still Present Severity: Severe Pain Scale Rating Of: 9 Reports Recently: Seen In ED, Treated By A Physician, Hospitalized Recent travel outside of the [place]: No Additional History Per: Patient Past Medical History Reviewed: Historical Data, Nursing Documentation, Vital Signs Vital Signs: Last Vital Signs Temp 988.3 F H 09/08/17 01:24 Pulse 126 H 09/08/17 02:01 Resp 25 H 09/08/17 02:01 BP 163/79 H 09/08/17 02:01 Pulse Ox 100 09/08/17 02:01 - Medical History PMH: Anemia, Anxiety, Arthritis, Asthma, CHF, Depression, Diabetes, Gastrointestinal Ulcer, HTN, Hypercholesterolemia, Pneumonia, Rheumatoid Arthritis, Seizures (etoh induced) Denies: Hepatitis, HIV, Chronic Kidney Disease, Sexually Transmitted Disease Other PMH: severe psoriasis Surgical History: Endoscopy - [facility] Procedures ALCOHOL DETOXIFICATION (05/28/13) CENTRAL VENOUS CATHETER PLACEMENT WITH GUIDANCE (01/31/14) CYSTOSCOPY NEC (06/08/13) DETOXIFICATION SERVICES FOR SUBSTANCE ABUSE TREATMENT (08/14/15) EXCISION OF ASCENDING COLON, ENDO, DIAGN (10/29/15) EXCISION OF STOMACH, ENDO, DIAGN (10/29/15) GROUP PSYCHOTHERAPY (04/21/16) INSPECTION OF UPPER INTESTINAL TRACT, ENDO (08/03/17) OTHER ENDOSCOPY OF SM INTEST (01/31/14) PACKED CELL TRANSFUSION (01/31/14) RETROGRADE PYELOGRAM (06/08/13) TRANSFUSE NONAUT FRESH PLASMA IN PERIPH VEIN, PERC (08/03/17) TRANSFUSE NONAUT FROZEN PLASMA IN PERIPH VEIN, PERC (05/06/15) TRANSFUSE NONAUT RED BLOOD CELLS IN PERIPH VEIN, PERC (08/03/17) Family History: States: Unknown Family Hx, Diabetes (Father) - Social History Hx Tobacco Use: No Hx Alcohol Use: Yes (former) Hx Substance Use: No - Immunization History Hx Tetanus Toxoid Vaccination: Yes Hx Influenza Vaccination: Yes Hx Pneumococcal Vaccination: Yes Review Of Systems Constitutional: Negative for: Fever, Chills Cardiovascular: Negative for: Chest Pain, Palpitations Respiratory: Negative for: Shortness of Breath Gastrointestinal: Negative for: Abdominal Pain Skin: Positive for: Other (skin bleeding, slothing off) Neurological: Negative for: Weakness, Numbness Physical Exam - Physical Exam Appears: In Acute Distress Skin: Warm, Dry, Other (skin peeling, large piece of skin slothing off B/L soles of feet. Minimal bleeding of major creases of skin) Head: Normacephalic Eye(s): bilateral: Normal Inspection Nose: No Discharge Oral Mucosa: Dry Neck: Supple Chest: Symmetrical Cardiovascular: Rhythm Regular (tachycardic), No Murmur Respiratory: No Rales, Rhonchi (scattered), No Wheezing Gastrointestinal/Abdominal: Soft, No Tenderness, Distention, No Guarding, No Rebound, Ascites (positive), Other (tympanic to percussion) Back: No CVA Tenderness Extremity: Normal ROM, No Tenderness, Pedal Edema (trace), Capillary Refill (< 2 seconds) Extremity: Bilateral: Other (desquamative skin) Pulses: Left Dorsalis Pedis: Normal, Right Dorsalis Pedis: Normal Neurological/Psych: Oriented x3 Gait: Unable To Assess ED Course And Treatment - Laboratory Results Result Diagrams: 09/07/17 23:17 09/07/17 23:17 ECG: Interpreted By Me, Viewed By Me ECG Rhythm: Sinus Tachycardia (142), Nonspecific Changes Pulse Ox Interpretation: Normal - Radiology CXR: Interpreted by Me, Viewed By Me CXR Interpretation: No: Infiltrates, Fracture, Pnemothorax Progress Note: Plan: - VBG. - EKG. - Labs. - CXR. - Decadron 8 mg IV. - Blood culture. - Urine culture. - UA. spoke with dr harden,ICU, -will come and see the pt in the ed Critical Care Time - Critical Care Note Total Time (in mins): 30 Documented critical care: time excludes all time spent performing seperately billable procedures. Disposition Discussed With DrShasha: Damaris Edwards Comment: accepted the pt on his service and took over the care at 12AM Doctor Will See Patient In The: ED Counseled Patient/Family Regarding: Studies Performed, Diagnosis - Disposition Disposition: HOSPITALIZED Disposition Time: 22:49 Condition: CRITICAL - POA Present On Arrival: Poor Glycemic Control - Clinical Impression Clinical Impression: Fever, Skin lesion, Psoriasis, Sepsis, Anemia, Hypomagnesemia - Scribe Statement The provider has reviewed the documentation as recorded by the Rayneibradha Ferguson All medical record entries made by the Rayneibradha were at my direction and personally dictated by me. I have reviewed the chart and agree that the record accurately reflects my personal performance of the history, physical exam, medical decision making, and the department course for this patient. I have also personally directed, reviewed, and agree with the discharge instructions and disposition.
[2017-09-07] MEDS ORDERED: Dexamethasone 4 mg/1 ml IV STA (22:53)
[2017-09-07] MEDS ORDERED: Vancomycin 1 gm/NS 200 ml 1 GM/200 ML BAG IVPB STA (23:19)
[2017-09-07] MEDS ORDERED: Clindamycin 600 MG in Sodium Chloride 0.9% 100 ML IVPB STA (23:19)
[2017-09-07] MEDS ORDERED: Piperacill/Tazo 3.375gm in Dex 3.375 GM/50 ML BAG IVPB STA (23:19)
[2017-09-07] MEDS ORDERED: Sodium Chloride 0.9% 1,000 ML ONE (23:23)
[2017-09-07] MEDS ORDERED: Clindamycin 600mg/50ml NS 600 MG/50 ML BAG IVPB ONE (23:35)
[2017-09-07 23:44] LABS: BLOOD UREA NITROGEN 11 mg/dL (9-20); GFR AFRICAN-AMERICAN > 60; GFR NON-AFRICAN AMERICAN 56
[2017-09-07 23:45] LABS: ALB/GLOB RATIO 0.5 (1.0-2.1); ALBUMIN 2.5 g/dL (3.5-5.0); CALCIUM 8.1 mg/dl (8.6-10.4); INR 2.2; PROTHROMBIN TIME 25.7 SECONDS (9.7-12.2)
[2017-09-07 23:46] LABS: ALT/SGPT 25 U/L (21-72); AST/SGOT 52 U/L (17-59); HEMOGLOBIN 7.8 g/dL (12.0-18.0); MEAN CELL VOLUME 89.7 fL (80.0-94.0); RBC 2.7 Mil/uL (4.40-5.90); WHITE BLOOD COUNT 16.2 K/uL (4.8-10.8)
[2017-09-07 23:47] LABS: BASO % 0.6 % (0.0-2.0); EOS % 3.4 % (0.0-4.0); LYMPH # 2.8 K/uL (1.0-4.3); LYMPH % 17.2 % (20.0-40.0); MEAN CORPUSCULAR HEMOGLOBIN 28.8 pg (27.0-31.0); MEAN CORPUSCULAR HGB CONC 32.1 g/dL (33.0-37.0); MEAN PLATELET VOLUME 7.3 fL (7.2-11.7); MONO % 13.4 % (0.0-10.0); NEUT # 10.6 K/uL (1.8-7.0); NEUT % 65.4 % (50.0-75.0); RED CELL DISTRIBUTION WIDTH 21.5 % (11.5-14.5)
[2017-09-07 23:48] LABS: BASO # 0.1 K/uL (0.0-0.2); EOS # 0.6 K/uL (0.0-0.7); MONO # 2.2 K/uL (0.0-0.8); NRBC % 0.2 % (0.0-2.0)
[2017-09-07] MEDS ORDERED: Piperacillin/Tazobact 3.375 gm 100 ML IVPB ONE (23:51)
[2017-09-07] MEDS: Piperacill/Tazo 3.375gm in Dex 3.375 GM/50 ML BAG IVPB SCH (23:55)
[2017-09-07] MEDS ORDERED: Magnesium Sulfate 1 gm in D5W 1 GM/100 ML BAG IVPB ONE (23:59)
[2017-09-08] MEDS ORDERED: Magnesium Sulfate 1 gm in D5W 1 GM/100 ML BAG IVPB ONE (00:04)
--- NOTE | 2017-09-08 01:24 | CP.PCM.CON ---
History of Present Illness - History of Present Illness History of Present Illness: 41 year old male with PMHx of severe psoriasis, liver cirrhosis , alcohol abuse Anemia, Anxiety, Arthritis, Asthma, CHF, Depression, Diabetes, Gastrointestinal Ulcer, HTN, Hypercholesterolemia, Pneumonia, Rheumatoid Arthritis, Seizures ( etoh induced),presents to the ED c/o bleeding from skin and skin peeling of him. Patient reports he has chills, patient rates the pain at 8/10. Patient denies fever, Chest Pain, SOB. Unknown new antibiotics exposure. patient was discharged from hospital about 10 days ago.he received blood transfusion during his stay Review of Systems - Review of Systems Systems not reviewed;Unavailable: Unstable Vital Signs - Constitutional Constitutional: Chills, Fatigue, Weakness. absent: Anorexia, Fever - EENT Eyes: absent: Change in Vision, Loss of Vision Ears: absent: Decreased Hearing, Dizziness Nose/Mouth/Throat: absent: Sore Throat, Neck Pain - Cardiovascular Cardiovascular: absent: Chest Pain, Dyspnea - Respiratory Respiratory: absent: Cough, Dyspnea - Gastrointestinal Gastrointestinal: absent: Abdominal Pain, Change in Bowel Habits - Genitourinary Genitourinary: absent: Dysuria, Hematuria - Musculoskeletal Musculoskeletal: Back Pain. absent: Stiffness - Integumentary Integumentary: Dry Skin Additional comments: peeling skin and bleeding - Neurological Neurological: absent: Confusion, Headaches Additional comments: difficulty walking due to peeling skin of feet - Endocrine Endocrine: absent: Excessive Sweating - Hematologic/Lymphatic Hematologic: Easy Bleeding Past Patient History - Infectious Disease Hx of Infectious Diseases: None - Past Medical History & Family History Past Medical History?: Yes - Past Social History Smoking Status: Never Smoked Alcohol: Other (denies alchohol in the recent past) - CARDIAC Hx Congestive Heart Failure: Yes Hx Hypercholesterolemia: Yes Hx Hypertension: Yes - PULMONARY Hx Asthma: Yes Hx Pneumonia: Yes - NEUROLOGICAL Hx Seizures: Yes (etoh induced) - HEENT Hx HEENT Problems: No - RENAL Hx Chronic Kidney Disease: No - ENDOCRINE/METABOLIC Hx Diabetes Mellitus Type 2: Yes - HEMATOLOGICAL/ONCOLOGICAL Hx Anemia: Yes Hx Human Immunodeficiency Virus (HIV): No - INTEGUMENTARY Hx Dermatological Problems: Yes Hx Psoriasis: Yes Other/Comment: Psoriatic Arthritis - MUSCULOSKELETAL/RHEUMATOLOGICAL Hx Arthritis: Yes Hx Rheumatoid Arthritis: Yes - GASTROINTESTINAL Other/Comment: Liver disease - GENITOURINARY/GYNECOLOGICAL Hx Sexually Transmitted Disorders: No - PSYCHIATRIC Hx Anxiety: Yes Hx Depression: Yes Hx Substance Use: No - SURGICAL HISTORY Hx Surgeries: Yes - ANESTHESIA Hx Anesthesia: Yes Hx Anesthesia Reactions: No Hx Malignant Hyperthermia: No Meds Allergies/Adverse Reactions: Allergies Allergy/AdvReac Type Severity Reaction Status Date / Time No Known Allergies Allergy Verified 09/07/17 22:49 - Medications Medications: Current Medications Acetaminophen (Tylenol 325mg Tab) 975 mg PO ONCE PRN PRN Reason: Fever >100.4 F Last Admin: 09/07/17 23:50 Dose: 975 mg Physical Exam - Constitutional Appears: Chronically Ill - Head Exam Head Exam: ATRAUMATIC, NORMOCEPHALIC - Eye Exam Eye Exam: EOMI, PERRL. absent: Conjunctival injection Pupil Exam: NORMAL ACCOMODATION - ENT Exam ENT Exam: Mucous Membranes Dry - Neck Exam Neck exam: Positive for: Normal Inspection - Respiratory Exam Respiratory Exam: Clear to Auscultation Bilateral, NORMAL BREATHING PATTERN - Cardiovascular Exam Cardiovascular Exam: Tachycardia. absent: JVD - GI/Abdominal Exam GI & Abdominal Exam: Normal Bowel Sounds, Soft. absent: Tenderness - Extremities Exam Extremities exam: Positive for: pedal pulses present. Negative for: calf tenderness - Back Exam Back exam: NORMAL INSPECTION - Neurological Exam Neurological exam: Alert, Oriented x3 - Psychiatric Exam Psychiatric exam: Anxious - Skin Additional comments: skin dry,peeling with large areas of skin odd the feet Results - Vital Signs Recent Vital Signs: Last Vital Signs Temp 99 F 09/08/17 00:50 Pulse 133 H 09/08/17 00:44 Resp 24 09/08/17 00:44 BP 152/74 H 09/08/17 00:44 Pulse Ox 100 09/08/17 00:44 - Labs Result Diagrams: 09/07/17 23:17 09/07/17 23:17 Labs: Laboratory Results - last 24 hr 09/07/17 09/07/17 09/07/17 23:17 23:17 23:17 WBC 16.2 H D RBC 2.70 L Hgb 7.8 L Hct 24.2 L MCV 89.7 D MCH 28.8 MCHC 32.1 L RDW 21.5 H Plt Count 164 D MPV 7.3 Neut % (Auto) 65.4 Lymph % (Auto) 17.2 L [place] % (Auto) 13.4 H Eos % (Auto) 3.4 Baso % (Auto) 0.6 Neut # (Auto) 10.6 H Lymph # (Auto) 2.8 [place] # (Auto) 2.2 H Eos # (Auto) 0.6 Baso # (Auto) 0.1 PT 25.7 H INR 2.2 APTT 41 H Sodium 143 Potassium 4.3 Chloride 107 Carbon Dioxide 13 L Anion Gap 27 H BUN 11 Creatinine 1.4 Est GFR ( Amer) > 60 Est GFR (Non-Af Amer) 56 Random Glucose 204 H Calcium 8.1 L Phosphorus 4.1 Magnesium 1.0 L* Total Bilirubin 4.7 H AST 52 ALT 25 Alkaline Phosphatase 129 H Total Protein 8.0 Albumin 2.5 L Globulin 5.5 H Albumin/Globulin Ratio 0.5 L Alcohol, Quantitative Blood Type Antibody Screen 09/07/17 09/08/17 23:36 00:11 WBC RBC Hgb Hct MCV MCH MCHC RDW Plt Count MPV Neut % (Auto) Lymph % (Auto) [place] % (Auto) Eos % (Auto) Baso % (Auto) Neut # (Auto) Lymph # (Auto) [place] # (Auto) Eos # (Auto) Baso # (Auto) PT INR APTT Sodium Potassium Chloride Carbon Dioxide Anion Gap BUN Creatinine Est GFR ( Amer) Est GFR (Non-Af Amer) Random Glucose Calcium Phosphorus Magnesium Total Bilirubin AST ALT Alkaline Phosphatase Total Protein Albumin Globulin Albumin/Globulin Ratio Alcohol, Quantitative < 10 Blood Type AB POSITIVE Antibody Screen Negative - EKG Data Rate: Tachycardia - Imaging and Cardiology Chest x-ray Status: Image reviewed by me Assessment & Plan - Assessment and Plan (Free Text) Assessment: 1.Sepsis- pt with leucocytosis,elevated lactate continue antibiotics follow up cultures 2.Severe Psoriasis dexamethasone given in ER 3.Cirrhosis 4.Anemia chronic-f/u H/h 5.Hypomagnesemia-magnesium replaced.f/u with rpt labs 6.DM -insulin with coverage
--- NOTE | 2017-09-08 06:14 | PCM.SEPTIC ---
Sepsis Progress Note - Reassessment Type Date of Evaluation: 09/08/17 Time of Evaluation: 06:00 Reassessment Type: Non-invasive reassessment - Non Invasive Reassessment Were the most recent vital sign reviewed: Yes Vital Sign (Latest): Temp Pulse Resp BP Pulse Ox 98.7 F 119 H 24 147/75 100 09/08/17 04:00 09/08/17 04:59 09/08/17 04:00 09/08/17 05:00 09/08/17 04:59 Cardiovascular: Yes: Regular Rate, Rhythm, Chest Non Tender, Tachycardia. No: JVD Respiratory: Yes: Normal Breath Sounds. No: Accessory Muscle Use, Crackles, Rales, Rhonchi, Wheezing, Respiratory Distress Capillary Refill: Normal (Less than 2 sec) Pulses: Normal Radial, Normal Dorsalis Pedis, Normal Posterior Tibialis Skin: Warm - Invasive Reassessment (complete 2 of 4) Was a Central Venous Pressure Measurement obtained within 6 Hours after the presentation of septic shock: No Was a central venous oxygen measurement obtained within 6 hours after the presentation of septic shock: No Was a bedside cardiovascular ultrasound performed within 6 hours after the presentation of septic shock: No
--- NOTE | 2017-09-08 07:15 | RAD ---
Chest x-ray single frontal view History: Sepsis. Comparison: 08/03/2017 Findings: Mild venous congestion. Right hilar prominence. Heart size within normal limits. Impression: Mild venous congestion. Right hilar prominence.
[2017-09-08 07:30] LABS: ALB/GLOB RATIO 0.5 (1.0-2.1); ALBUMIN 2.2 g/dL (3.5-5.0); ALT/SGPT 27 U/L (21-72); AST/SGOT 51 U/L (17-59); BLOOD UREA NITROGEN 12 mg/dL (9-20); CALCIUM 7.5 mg/dl (8.6-10.4); GFR AFRICAN-AMERICAN > 60; GFR NON-AFRICAN AMERICAN > 60
[2017-09-08 07:32] LABS: BASO % 0.3 % (0.0-2.0); EOS # 0.1 K/uL (0.0-0.7); EOS % 0.5 % (0.0-4.0); LYMPH % 8.3 % (20.0-40.0); MEAN CORPUSCULAR HEMOGLOBIN 29.1 pg (27.0-31.0); MEAN CORPUSCULAR HGB CONC 33.4 g/dL (33.0-37.0); MEAN PLATELET VOLUME 7.9 fL (7.2-11.7); MONO # 0.2 K/uL (0.0-0.8); MONO % 1.7 % (0.0-10.0); NEUT # 10.8 K/uL (1.8-7.0); NEUT % 89.2 % (50.0-75.0); NRBC % 0.1 % (0.0-2.0); RBC 2.35 Mil/uL (4.40-5.90); RED CELL DISTRIBUTION WIDTH 21.3 % (11.5-14.5); WHITE BLOOD COUNT 12.1 K/uL (4.8-10.8)
[2017-09-08 07:35] LABS: INR 2.4; PROTHROMBIN TIME 28.9 SECONDS (9.7-12.2)
[2017-09-08 07:46] LABS: HEMOGLOBIN 6.8 g/dL (12.0-18.0); MEAN CELL VOLUME 87.2 fL (80.0-94.0); PLATELET COUNT 98 K/uL (130-400)
[2017-09-08] MEDS: Magnesium Sulfate 1 gm in D5W 1 GM/100 ML BAG IVPB SCH ×2 (08:28→09:21)
[2017-09-08 09:11] LABS: ANISOCYTOSIS SLIGHT; BANDS 3 % (0-2); EOSINOPHIL 1 % (0-4); LYMPHOCYTE 5 % (20-40); MICROCYTOSIS SLIGHT; MONOCYTE 2 % (0-10); NEUTROPHIL 89 % (50-75); PLATELET ESTIMATE NORMAL (NORMAL); POIKILOCYTOSIS SLIGHT; TOTAL CELLS COUNTED 100
[2017-09-08 09:12] LABS: BURR CELLS SLIGHT; HYPOCHROMIC MODERATE; TARGET CELLS SLIGHT; TEARDROP CELLS SLIGHT
[2017-09-08 09:13] LABS: OVALOCYTES SLIGHT
[2017-09-08] MEDS: Pantoprazole 40 mg EC Tab PO SCH (09:21)
[2017-09-08] MEDS: Ammonium Lactate 12% Lotion (225 g) EXT SCH ×2 (09:21→17:39)
[2017-09-08] MEDS: Piperacill/Tazo 3.375gm in Dex 3.375 GM/50 ML BAG IVPB SCH ×2 (09:44→17:38)
[2017-09-08] MEDS ORDERED: Phytonadione 10 mg/ml Inj (Adult) IV STA ×2 (10:23→11:27)
[2017-09-08 11:27] LABS: VENOUS BLOOD PH 7.28 (7.32-7.43)
[2017-09-08 11:28] LABS: VENOUS BLOOD GAS PCO2 28 mmHg (40-60); VENOUS BLOOD GAS PO2 48 mm/Hg (30-55)
[2017-09-08 18:37] LABS: SQUAMOUS EPITHIAL < 1 /hpf (0-5); URINE BACTERIA RARE (<OCC); URINE BILIRUBIN NEGATIVE (NEGATIVE); URINE CALCIUM OXALATE CRYSTALS RARE /hpf (<OCC); URINE CLARITY Hazy (Clear); URINE COLOR Amber (YELLOW); URINE GLUCOSE (UA) NORMAL (Normal); URINE LEUKOCYTE ESTERASE NEG Leu/uL (Negative); URINE PROTEIN NEGATIVE (NEGATIVE)
[2017-09-08 18:38] LABS: URINE BLOOD 2+ (NEGATIVE)
--- NOTE | 2017-09-08 20:33 | CARD ---
APPROVED REPORT EKG Measurement Heart [id number] <Conclusion> Sinus tachycardia Inferior infarct, age undetermined Abnormal ECG
[2017-09-09] MEDS: Piperacill/Tazo 3.375gm in Dex 3.375 GM/50 ML BAG IVPB SCH ×3 (03:00→17:25)
[2017-09-09 06:10] LABS: BASO % 0.2 % (0.0-2.0); EOS % 0.1 % (0.0-4.0); HEMOGLOBIN 7.6 g/dL (12.0-18.0); LYMPH # 1.8 K/uL (1.0-4.3); LYMPH % 8.7 % (20.0-40.0); MEAN CELL VOLUME 86.4 fL (80.0-94.0); MEAN CORPUSCULAR HGB CONC 33.5 g/dL (33.0-37.0); MEAN PLATELET VOLUME 7.2 fL (7.2-11.7); MONO # 1.7 K/uL (0.0-0.8); MONO % 8.1 % (0.0-10.0); NEUT # 17.1 K/uL (1.8-7.0); NEUT % 82.9 % (50.0-75.0); PLATELET COUNT 129 K/uL (130-400); RBC 2.61 Mil/uL (4.40-5.90); RED CELL DISTRIBUTION WIDTH 21.3 % (11.5-14.5); WHITE BLOOD COUNT 20.6 K/uL (4.8-10.8)
[2017-09-09 06:31] LABS: ALB/GLOB RATIO 0.5 (1.0-2.1); ALBUMIN 2.4 g/dL (3.5-5.0); ALT/SGPT 17 U/L (21-72); AST/SGOT 43 U/L (17-59); BLOOD UREA NITROGEN 14 mg/dL (9-20); CALCIUM 7.4 mg/dl (8.6-10.4); GFR AFRICAN-AMERICAN > 60; GFR NON-AFRICAN AMERICAN > 60
[2017-09-09] MEDS ORDERED: Magnesium Sulfate 1 gm in D5W 1 GM/100 ML BAG IVPB ONE (08:00)
[2017-09-09 08:34] LABS: ANISOCYTOSIS SLIGHT; LYMPHOCYTE 7 % (20-40); MONOCYTE 9 % (0-10); NEUTROPHIL 84 % (50-75); PLATELET ESTIMATE NORMAL (NORMAL); POIKILOCYTOSIS SLIGHT; TOTAL CELLS COUNTED 100
[2017-09-09 08:35] LABS: BURR CELLS SLIGHT; OVALOCYTES SLIGHT
[2017-09-09 08:36] LABS: HYPOCHROMIC MODERATE; MICROCYTOSIS SLIGHT; POLYCHROMIC SLIGHT; TARGET CELLS SLIGHT
[2017-09-09] MEDS ORDERED: Albuterol HFA 90 mcg/actuation (8 g) INH PRN (09:00)
[2017-09-09] MEDS: Pantoprazole 40 mg EC Tab PO SCH (10:46)
[2017-09-09] MEDS: Ammonium Lactate 12% Lotion (225 g) EXT SCH ×2 (10:47→17:25)
--- NOTE | 2017-09-09 12:38 | CP.CCUPN ---
<Orlin Hendrix - Last Filed: 09/09/17 15:49> CCU Subjective - Physician Review Subjective (Free Text): 09/09/17 12:35 Patient seen and examined. Patient continues to complain of excessive peeling of the skin of his extremities. Patient has difficulty grasping objects and weakness with ambulation. CCU Objective - Vital Signs / Intake & Output Intake and Output (Last 8hrs): Intake & Output 09/08/17 09/09/17 09/09/17 22:59 06:59 14:59 Intake Total 883 290 Output Total 150 Balance 883 140 Intake: Intake, IV Amount 50 50 Left Antecubital 50 Right Antecubital 50 Oral 300 240 Blood Product 533 Red Blood Cells Cp2d As3 325 Lr Unit [id number] Output: Urine 150 Urine, Voided 150 Other: # Voids Urine, Voided 1 # Bowel Movements 1 - Physical Exam Head: Positive for: Atraumatic, Normocephalic Pupils: Positive for: PERRL Extroacular Muscles: Positive for: EOMI Mouth: Positive for: Moist Mucous Membranes Respiratory/Chest: Positive for: Clear to Auscultation. Negative for: Wheezes, Rales, Rhonchi Cardiovascular: Positive for: Normal S1, S2, Tachycardic Abdomen: Positive for: Normal Bowel Sounds. Negative for: Tenderness Upper Extremity: Positive for: Other (extensive peeling of the skin on the hands ) Lower Extremity: Positive for: Edema (trace pedal edema bilaterally), Other ( extensive peeling of the skin of the legs) Skin: Positive for: Warm, Dry Psychiatric: Positive for: Alert, Oriented x 3 - Medications Active Medications: Active Medications Generic Name Dose Route Start Last Admin Trade Name Freq PRN Reason Stop Dose Admin Acetaminophen 975 mg 09/07/17 23:19 09/07/17 23:50 Tylenol 325mg Tab PO 975 mg ONCE PRN Administration Fever >100.4 F Albuterol 1 puff 09/09/17 09:00 Ventolin Hfa 90 Mcg/Actuation (8 G) INH RQ6 PRN Wheezing Albuterol Sulfate 1.25 mg 09/09/17 09:01 Albuterol 0.042% Inhal Marlene (1.25mg/3ml) Ud INH RQ4 PRN Shortness of Breath Escitalopram Oxalate 10 mg 09/09/17 12:45 Lexapro PO DAILY FLY Piperacillin Sod/Tazobactam Sod 3.375 gm in 50 mls @ 100 mls/hr 09/08/17 02: 00 09/09/17 10:46 Zosyn 3.375 Gm Iv Premix IVPB 100 mls/hr Q8H FLY Administration Protocol Lactic Acid 0 gm 09/08/17 10:00 09/09/17 10:47 Lac-Hydrin 12% Lotion (225 G) EXT 1 applic BID FLY Administration Pantoprazole Sodium 40 mg 09/08/17 10:00 09/09/17 10:46 Protonix Ec Tab PO 40 mg DAILY FLY Administration - Patient Studies Lab Studies: Microbiology Studies 09/08/17 01:44 MRSA Culture (Admit) - Final Nose MRSA NOT DETECTED 09/07/17 22:53 Blood Culture - Preliminary Blood NO GROWTH AFTER 24 HOURS 09/07/17 22:53 Blood Culture - Preliminary Blood NO GROWTH AFTER 24 HOURS Lab Studies 09/09/17 09/09/17 09/08/17 Range/Units 06:04 06:03 18:21 WBC 20.6 H D (4.8-10.8) K/uL RBC 2.61 L (4.40-5.90) Mil/uL Hgb 7.6 L (12.0-18.0) g/dL Hct 22.6 L (35.0-51.0) % MCV 86.4 (80.0-94.0) fL MCH 29.0 (27.0-31.0) pg MCHC 33.5 (33.0-37.0) g/dL RDW 21.3 H (11.5-14.5) % Plt Count 129 L D (130-400) K/uL MPV 7.2 (7.2-11.7) fL Neut % (Auto) 82.9 H (50.0-75.0) % Lymph % (Auto) 8.7 L (20.0-40.0) % [place] % (Auto) 8.1 (0.0-10.0) % Eos % (Auto) 0.1 (0.0-4.0) % Baso % (Auto) 0.2 (0.0-2.0) % Neut # (Auto) 17.1 H (1.8-7.0) K/uL Lymph # (Auto) 1.8 (1.0-4.3) K/uL [place] # (Auto) 1.7 H (0.0-0.8) K/uL Eos # (Auto) 0.0 (0.0-0.7) K/uL Baso # (Auto) 0.0 (0.0-0.2) K/uL Neutrophils % (Manual) 84 H (50-75) % Lymphocytes % (Manual) 7 L (20-40) % Monocytes % (Manual) 9 (0-10) % Platelet Estimate Normal (NORMAL) Polychromasia Slight Hypochromasia (manual) Moderate Poikilocytosis (manual Slight Anisocytosis (manual) Slight Microcytosis (manual) Slight Target Cells Slight Ovalocytes Slight [place] Cells Slight Sodium 140 (132-148) mmol/L Potassium 3.7 (3.6-5.2) mmol/L Chloride 107 (98-107) mmol/L Carbon Dioxide 17 L (22-30) mmol/L Anion Gap 20 (10-20) BUN 14 (9-20) mg/dL Creatinine 1.2 (0.8-1.5) mg/dL Est GFR ( Amer) > 60 Est GFR (Non-Af Amer) > 60 Random Glucose 162 H (75-110) mg/dL Calcium 7.4 L (8.6-10.4) mg/dl Phosphorus 2.8 (2.5-4.5) mg/dL Magnesium 1.6 (1.6-2.3) mg/dL Total Bilirubin 4.4 H (0.2-1.3) mg/dL AST 43 (17-59) U/L ALT 17 L D (21-72) U/L Alkaline Phosphatase 144 H (38-126) U/L Total Protein 7.2 (6.3-8.3) g/dL Albumin 2.4 L (3.5-5.0) g/dL Globulin 4.8 H (2.2-3.9) gm/dL Albumin/Globulin Ratio 0.5 L (1.0-2.1) Urine Color Tammy (YELLOW) Urine Clarity Hazy (Clear) Urine pH 5.0 (5.0-8.0) Ur Specific [place] 1.025 (1.003-1.030) Urine Protein Negative (NEGATIVE) mg/dL Urine Glucose (UA) Normal (Normal) mg/dL Urine Ketones Trace (NEGATIVE) mg/dL Urine Blood 2+ H (NEGATIVE) Urine Nitrate Negative (NEGATIVE) Urine Bilirubin Negative (NEGATIVE) Urine Urobilinogen 4.0 (0.2-1.0) mg/dL Ur Leukocyte Esterase Neg (Negative) Lexie/uL Urine WBC (Auto) 2 (0-5) /hpf Urine RBC (Auto) 11 H (0-3) /hpf Ur Squamous Epith Cells < 1 (0-5) /hpf Ur Transition Epith Cell < 1 (0-3) /hpf Calcium Oxalate Crystal Rare (<OCC) /hpf Urine Bacteria Rare (<OCC) Blood Type Antibody Screen 09/08/17 Range/Units 11:02 WBC (4.8-10.8) K/uL RBC (4.40-5.90) Mil/uL Hgb (12.0-18.0) g/dL Hct (35.0-51.0) % MCV (80.0-94.0) fL MCH (27.0-31.0) pg MCHC (33.0-37.0) g/dL RDW (11.5-14.5) % Plt Count (130-400) K/uL MPV (7.2-11.7) fL Neut % (Auto) (50.0-75.0) % Lymph % (Auto) (20.0-40.0) % [place] % (Auto) (0.0-10.0) % Eos % (Auto) (0.0-4.0) % Baso % (Auto) (0.0-2.0) % Neut # (Auto) (1.8-7.0) K/uL Lymph # (Auto) (1.0-4.3) K/uL [place] # (Auto) (0.0-0.8) K/uL Eos # (Auto) (0.0-0.7) K/uL Baso # (Auto) (0.0-0.2) K/uL Neutrophils % (Manual) (50-75) % Lymphocytes % (Manual) (20-40) % Monocytes % (Manual) (0-10) % Platelet Estimate (NORMAL) Polychromasia Hypochromasia (manual) Poikilocytosis (manual Anisocytosis (manual) Microcytosis (manual) Target Cells Ovalocytes [place] Cells Sodium (132-148) mmol/L Potassium (3.6-5.2) mmol/L Chloride (98-107) mmol/L Carbon Dioxide (22-30) mmol/L Anion Gap (10-20) BUN (9-20) mg/dL Creatinine (0.8-1.5) mg/dL Est GFR ( Amer) Est GFR (Non-Af Amer) Random Glucose (75-110) mg/dL Calcium (8.6-10.4) mg/dl Phosphorus (2.5-4.5) mg/dL Magnesium (1.6-2.3) mg/dL Total Bilirubin (0.2-1.3) mg/dL AST (17-59) U/L ALT (21-72) U/L Alkaline Phosphatase (38-126) U/L Total Protein (6.3-8.3) g/dL Albumin (3.5-5.0) g/dL Globulin (2.2-3.9) gm/dL Albumin/Globulin Ratio (1.0-2.1) Urine Color (YELLOW) Urine Clarity (Clear) Urine pH (5.0-8.0) Ur Specific [place] (1.003-1.030) Urine Protein (NEGATIVE) mg/dL Urine Glucose (UA) (Normal) mg/dL Urine Ketones (NEGATIVE) mg/dL Urine Blood (NEGATIVE) Urine Nitrate (NEGATIVE) Urine Bilirubin (NEGATIVE) Urine Urobilinogen (0.2-1.0) mg/dL Ur Leukocyte Esterase (Negative) Lexie/uL Urine WBC (Auto) (0-5) /hpf Urine RBC (Auto) (0-3) /hpf Ur Squamous Epith Cells (0-5) /hpf Ur Transition Epith Cell (0-3) /hpf Calcium Oxalate Crystal (<OCC) /hpf Urine Bacteria (<OCC) Blood Type AB POSITIVE Antibody Screen Negative Laboratory Results - last 24 hr 09/08/17 09/08/17 09/09/17 11:02 18:21 06:03 WBC RBC Hgb Hct MCV MCH MCHC RDW Plt Count MPV Neut % (Auto) Lymph % (Auto) [place] % (Auto) Eos % (Auto) Baso % (Auto) Neut # (Auto) Lymph # (Auto) [place] # (Auto) Eos # (Auto) Baso # (Auto) Neutrophils % (Manual) Lymphocytes % (Manual) Monocytes % (Manual) Platelet Estimate Polychromasia Hypochromasia (manual) Poikilocytosis (manual Anisocytosis (manual) Microcytosis (manual) Target Cells Ovalocytes [place] Cells Sodium 140 Potassium 3.7 Chloride 107 Carbon Dioxide 17 L Anion Gap 20 BUN 14 Creatinine 1.2 Est GFR ( Amer) > 60 Est GFR (Non-Af Amer) > 60 Random Glucose 162 H Calcium 7.4 L Phosphorus 2.8 Magnesium 1.6 Total Bilirubin 4.4 H AST 43 ALT 17 L D Alkaline Phosphatase 144 H Total Protein 7.2 Albumin 2.4 L Globulin 4.8 H Albumin/Globulin Ratio 0.5 L Urine Color Tammy Urine Clarity Hazy Urine pH 5.0 Ur Specific [place] 1.025 Urine Protein Negative Urine Glucose (UA) Normal Urine Ketones Trace Urine Blood 2+ H Urine Nitrate Negative Urine Bilirubin Negative Urine Urobilinogen 4.0 Ur Leukocyte Esterase Neg Urine WBC (Auto) 2 Urine RBC (Auto) 11 H Ur Squamous Epith Cells < 1 Ur Transition Epith Cell < 1 Calcium Oxalate Crystal Rare Urine Bacteria Rare Blood Type AB POSITIVE Antibody Screen Negative 09/09/17 06:04 WBC 20.6 H D RBC 2.61 L Hgb 7.6 L Hct 22.6 L MCV 86.4 MCH 29.0 MCHC 33.5 RDW 21.3 H Plt Count 129 L D MPV 7.2 Neut % (Auto) 82.9 H Lymph % (Auto) 8.7 L [place] % (Auto) 8.1 Eos % (Auto) 0.1 Baso % (Auto) 0.2 Neut # (Auto) 17.1 H Lymph # (Auto) 1.8 [place] # (Auto) 1.7 H Eos # (Auto) 0.0 Baso # (Auto) 0.0 Neutrophils % (Manual) 84 H Lymphocytes % (Manual) 7 L Monocytes % (Manual) 9 Platelet Estimate Normal Polychromasia Slight Hypochromasia (manual) Moderate Poikilocytosis (manual Slight Anisocytosis (manual) Slight Microcytosis (manual) Slight Target Cells Slight Ovalocytes Slight [place] Cells Slight Sodium Potassium Chloride Carbon Dioxide Anion Gap BUN Creatinine Est GFR ( Amer) Est GFR (Non-Af Amer) Random Glucose Calcium Phosphorus Magnesium Total Bilirubin AST ALT Alkaline Phosphatase Total Protein Albumin Globulin Albumin/Globulin Ratio Urine Color Urine Clarity Urine pH Ur Specific [place] Urine Protein Urine Glucose (UA) Urine Ketones Urine Blood Urine Nitrate Urine Bilirubin Urine Urobilinogen Ur Leukocyte Esterase Urine WBC (Auto) Urine RBC (Auto) Ur Squamous Epith Cells Ur Transition Epith Cell Calcium Oxalate Crystal Urine Bacteria Blood Type Antibody Screen Critical Care Progress Note - Nutrition Nutrition: Nutrition Category Date Time Status Consistent Carbohydrate [DIET] Diets 09/08/17 Breakfast Active Assessment/Plan - Assessment and Plan (Free Text) Assessment: This is a 41 year old male with PMHx HTN, DM, cirrhosis, psoriasis who presented to the hospital for worsening psoriasis. Neuro Awake, verbal Cardio Restarted Patient on ARB--convert to formulary Losartan 50 mg PO daily Pulm Hx of asthma Ventolin prn Albuterol nebulizer prn GI Diabetic Diet Protonix 40 mg PO daily Endocrine Accuchecks ACHS Regular ISS medium dose Infectious Disease Zosyn 3.375 gm Q8H (Day 2) Blood cultures negative so far Dermatology Rheumatology consulted Lac-Hydrin topical BID Prophylaxis Protonix 40 mg PO daily VTE ppx contraindicated Discussed with Dr. Rodgers <Chuy Rodgers - Last Filed: 09/10/17 12:23> CCU Objective - Vital Signs / Intake & Output Vital Signs (Last 4 hours): Vital Signs Temp Pulse Resp BP Pulse Ox 09/10/17 12:20 98.4 F 130 H 22 100/52 L 09/10/17 12:05 98.5 F 129 H 20 116/60 100 09/10/17 12:00 98.2 F 131 H 15 100 09/10/17 11:50 131 H 22 113/57 L 100 09/10/17 11:30 98.5 F 131 H 22 105/60 09/10/17 11:06 134 H 23 105/60 100 09/10/17 11:00 133 H 17 99/62 L 100 09/10/17 10:00 135 H 22 115/68 100 09/10/17 09:02 125 H 41 H 130/66 100 09/10/17 09:01 131 H 29 H 94 L 09/10/17 09:00 65 35 H 97 Intake and Output (Last 8hrs): Intake & Output 09/09/17 09/10/17 09/10/17 22:59 06:59 14:59 Intake Total 370 290 930 Output Total 450 200 225 Balance -80 90 705 Weight 210 lb 8.663 oz 210 lb 8.663 oz Intake: Intake, IV Amount 50 50 150 Left Antecubital 50 50 Right Antecubital 150 Oral 320 240 780 Blood Product 0 Apheresis Rbc Cp2d As3 Lr 0 1st Unit [id number] Output: Urine 450 200 225 Urine, Voided 450 200 225 Other: # Voids Urine, Voided 1 1 1 # Bowel Movements 1 - Medications Active Medications: Active Medications Generic Name Dose Route Start Last Admin Trade Name Freq PRN Reason Stop Dose Admin Albuterol 1 puff 09/09/17 09:00 Ventolin Hfa 90 Mcg/Actuation (8 G) INH RQ6 PRN Wheezing Albuterol Sulfate 1.25 mg 09/09/17 09:01 09/10/17 07:58 Albuterol 0.042% Inhal Marlene (1.25mg/3ml) Ud INH 1.25 mg RQ4 PRN Administration Shortness of Breath Escitalopram Oxalate 10 mg 09/09/17 12:45 09/10/17 09:22 Lexapro PO 10 mg DAILY FLY Administration Gabapentin 100 mg 09/09/17 18:00 09/10/17 09:22 Neurontin PO 100 mg TID FLY Administration Piperacillin Sod/Tazobactam Sod 3.375 gm in 50 mls @ 100 mls/hr 09/08/17 02: 00 09/10/17 09:22 Zosyn 3.375 Gm Iv Premix IVPB 100 mls/hr Q8H FLY Administration Protocol Insulin Human Regular 0 unit 09/09/17 16:30 09/10/17 11:53 Novolin R SC 3 unit ACHS FLY Administration Protocol Lactic Acid 0 gm 09/08/17 10:00 09/10/17 09:21 Lac-Hydrin 12% Lotion (225 G) EXT 1 applic BID FLY Administration Lactulose 20 gm 09/10/17 22:00 Enulose PO HS [facility] Metoprolol Tartrate 25 mg 09/10/17 10:30 09/10/17 11:06 Lopressor PO 25 mg BID FLY Administration Multivitamins 1 tab 09/10/17 11:15 09/10/17 11:53 Hexavitamin PO 1 tab DAILY FLY Administration Pantoprazole Sodium 40 mg 09/08/17 10:00 09/10/17 09:23 Protonix Ec Tab PO 40 mg DAILY FLY Administration Trazodone HCl 25 mg 09/09/17 22:00 09/09/17 22:30 Desyrel PO 25 mg HS FLY Administration - Patient Studies Lab Studies: Microbiology Studies 09/09/17 05:05 Urine Culture - Final Urine,Clean Catch No Growth (<1,000 CFU/ML) 09/07/17 22:53 Blood Culture - Preliminary Blood NO GROWTH AFTER 48 HOURS 09/07/17 22:53 Blood Culture - Preliminary Blood NO GROWTH AFTER 48 HOURS 09/08/17 01:44 MRSA Culture (Admit) - Final Nose MRSA NOT DETECTED Lab Studies 09/10/17 09/10/17 09/10/17 Range/Units 11:30 07:41 06:11 WBC (4.8-10.8) K/uL RBC (4.40-5.90) Mil/uL Hgb (12.0-18.0) g/dL Hct (35.0-51.0) % MCV (80.0-94.0) fL MCH (27.0-31.0) pg MCHC (33.0-37.0) g/dL RDW (11.5-14.5) % Plt Count (130-400) K/uL MPV (7.2-11.7) fL Neut % (Auto) (50.0-75.0) % Lymph % (Auto) (20.0-40.0) % [place] % (Auto) (0.0-10.0) % Eos % (Auto) (0.0-4.0) % Baso % (Auto) (0.0-2.0) % Neut # (Auto) (1.8-7.0) K/uL Lymph # (Auto) (1.0-4.3) K/uL [place] # (Auto) (0.0-0.8) K/uL Eos # (Auto) (0.0-0.7) K/uL Baso # (Auto) (0.0-0.2) K/uL ESR (0-15) mm/hr Sodium (132-148) mmol/L Potassium (3.6-5.2) mmol/L Chloride (98-107) mmol/L Carbon Dioxide (22-30) mmol/L Anion Gap (10-20) BUN (9-20) mg/dL Creatinine (0.8-1.5) mg/dL Est GFR ( Amer) Est GFR (Non-Af Amer) POC Glucose (mg/dL) 224 H 161 H (65-110) mg/dL Random Glucose (75-110) mg/dL Calcium (8.6-10.4) mg/dl Phosphorus (2.5-4.5) mg/dL Magnesium (1.6-2.3) mg/dL Total Bilirubin (0.2-1.3) mg/dL AST (17-59) U/L ALT (21-72) U/L Alkaline Phosphatase (38-126) U/L C-React Prot High Sens 2.82 (1.00-3.00) mg/L Total Protein (6.3-8.3) g/dL Albumin (3.5-5.0) g/dL Globulin (2.2-3.9) gm/dL Albumin/Globulin Ratio (1.0-2.1) Complement C3 56.0 L (88.0-165.0) mg/dL Complement C4 9.9 L (14.0-44.0) mg/dL Anti-Staphylolysin O (NEGATIVE) Anti-Streptolysin Titr (NEGATIVE) Blood Type Antibody Screen 09/10/17 09/10/17 09/10/17 Range/Units 06:11 06:11 04:00 WBC 15.5 H (4.8-10.8) K/uL RBC 2.55 L (4.40-5.90) Mil/uL Hgb 7.4 L (12.0-18.0) g/dL Hct 22.2 L (35.0-51.0) % MCV 87.1 (80.0-94.0) fL MCH 28.9 (27.0-31.0) pg MCHC 33.2 (33.0-37.0) g/dL RDW 21.3 H (11.5-14.5) % Plt Count 113 L (130-400) K/uL MPV 7.1 L (7.2-11.7) fL Neut % (Auto) 68.8 (50.0-75.0) % Lymph % (Auto) 15.0 L (20.0-40.0) % [place] % (Auto) 11.9 H (0.0-10.0) % Eos % (Auto) 3.9 (0.0-4.0) % Baso % (Auto) 0.4 (0.0-2.0) % Neut # (Auto) 10.7 H (1.8-7.0) K/uL Lymph # (Auto) 2.3 (1.0-4.3) K/uL [place] # (Auto) 1.8 H (0.0-0.8) K/uL Eos # (Auto) 0.6 (0.0-0.7) K/uL Baso # (Auto) 0.1 (0.0-0.2) K/uL ESR 80 H (0-15) mm/hr Sodium 141 (132-148) mmol/L Potassium 3.8 (3.6-5.2) mmol/L Chloride 108 H (98-107) mmol/L Carbon Dioxide 19 L (22-30) mmol/L Anion Gap 17 (10-20) BUN 11 (9-20) mg/dL Creatinine 1.0 (0.8-1.5) mg/dL Est GFR ( Amer) > 60 Est GFR (Non-Af Amer) > 60 POC Glucose (mg/dL) (65-110) mg/dL Random Glucose 124 H (75-110) mg/dL Calcium 6.6 L (8.6-10.4) mg/dl Phosphorus 2.3 L (2.5-4.5) mg/dL Magnesium 1.6 (1.6-2.3) mg/dL Total Bilirubin 2.7 H (0.2-1.3) mg/dL AST 44 (17-59) U/L ALT 25 (21-72) U/L Alkaline Phosphatase 139 H (38-126) U/L C-React Prot High Sens (1.00-3.00) mg/L Total Protein 6.4 (6.3-8.3) g/dL Albumin 2.2 L (3.5-5.0) g/dL Globulin 4.2 H (2.2-3.9) gm/dL Albumin/Globulin Ratio 0.5 L (1.0-2.1) Complement C3 (88.0-165.0) mg/dL Complement C4 (14.0-44.0) mg/dL Anti-Staphylolysin O Positive H (NEGATIVE) Anti-Streptolysin Titr =>800 iu/ml H (NEGATIVE) Blood Type Antibody Screen 09/09/17 09/09/17 09/08/17 Range/Units 21:18 16:25 11:02 WBC (4.8-10.8) K/uL RBC (4.40-5.90) Mil/uL Hgb (12.0-18.0) g/dL Hct (35.0-51.0) % MCV (80.0-94.0) fL MCH (27.0-31.0) pg MCHC (33.0-37.0) g/dL RDW (11.5-14.5) % Plt Count (130-400) K/uL MPV (7.2-11.7) fL Neut % (Auto) (50.0-75.0) % Lymph % (Auto) (20.0-40.0) % [place] % (Auto) (0.0-10.0) % Eos % (Auto) (0.0-4.0) % Baso % (Auto) (0.0-2.0) % Neut # (Auto) (1.8-7.0) K/uL Lymph # (Auto) (1.0-4.3) K/uL [place] # (Auto) (0.0-0.8) K/uL Eos # (Auto) (0.0-0.7) K/uL Baso # (Auto) (0.0-0.2) K/uL ESR (0-15) mm/hr Sodium (132-148) mmol/L Potassium (3.6-5.2) mmol/L Chloride (98-107) mmol/L Carbon Dioxide (22-30) mmol/L Anion Gap (10-20) BUN (9-20) mg/dL Creatinine (0.8-1.5) mg/dL Est GFR ( Amer) Est GFR (Non-Af Amer) POC Glucose (mg/dL) 158 H 183 H (65-110) mg/dL Random Glucose (75-110) mg/dL Calcium (8.6-10.4) mg/dl Phosphorus (2.5-4.5) mg/dL Magnesium (1.6-2.3) mg/dL Total Bilirubin (0.2-1.3) mg/dL AST (17-59) U/L ALT (21-72) U/L Alkaline Phosphatase (38-126) U/L C-React Prot High Sens (1.00-3.00) mg/L Total Protein (6.3-8.3) g/dL Albumin (3.5-5.0) g/dL Globulin (2.2-3.9) gm/dL Albumin/Globulin Ratio (1.0-2.1) Complement C3 (88.0-165.0) mg/dL Complement C4 (14.0-44.0) mg/dL Anti-Staphylolysin O (NEGATIVE) Anti-Streptolysin Titr (NEGATIVE) Blood Type AB POSITIVE Antibody Screen Negative Laboratory Results - last 24 hr 09/08/17 09/09/17 09/09/17 11:02 16:25 21:18 WBC RBC Hgb Hct MCV MCH MCHC RDW Plt Count MPV Neut % (Auto) Lymph % (Auto) [place] % (Auto) Eos % (Auto) Baso % (Auto) Neut # (Auto) Lymph # (Auto) [place] # (Auto) Eos # (Auto) Baso # (Auto) ESR Sodium Potassium Chloride Carbon Dioxide Anion Gap BUN Creatinine Est GFR ( Amer) Est GFR (Non-Af Amer) POC Glucose (mg/dL) 183 H 158 H Random Glucose Calcium Phosphorus Magnesium Total Bilirubin AST ALT Alkaline Phosphatase C-React Prot High Sens Total Protein Albumin Globulin Albumin/Globulin Ratio Complement C3 Complement C4 Anti-Staphylolysin O Anti-Streptolysin Titr Blood Type AB POSITIVE Antibody Screen Negative 09/10/17 09/10/17 09/10/17 04:00 06:11 06:11 WBC 15.5 H RBC 2.55 L Hgb 7.4 L Hct 22.2 L MCV 87.1 MCH 28.9 MCHC 33.2 RDW 21.3 H Plt Count 113 L MPV 7.1 L Neut % (Auto) 68.8 Lymph % (Auto) 15.0 L [place] % (Auto) 11.9 H Eos % (Auto) 3.9 Baso % (Auto) 0.4 Neut # (Auto) 10.7 H Lymph # (Auto) 2.3 [place] # (Auto) 1.8 H Eos # (Auto) 0.6 Baso # (Auto) 0.1 ESR 80 H Sodium 141 Potassium 3.8 Chloride 108 H Carbon Dioxide 19 L Anion Gap 17 BUN 11 Creatinine 1.0 Est GFR ( Amer) > 60 Est GFR (Non-Af Amer) > 60 POC Glucose (mg/dL) Random Glucose 124 H Calcium 6.6 L Phosphorus 2.3 L Magnesium 1.6 Total Bilirubin 2.7 H AST 44 ALT 25 Alkaline Phosphatase 139 H C-React Prot High Sens Total Protein 6.4 Albumin 2.2 L Globulin 4.2 H Albumin/Globulin Ratio 0.5 L Complement C3 Complement C4 Anti-Staphylolysin O Positive H Anti-Streptolysin Titr =>800 iu/ml H Blood Type Antibody Screen 09/10/17 09/10/17 09/10/17 06:11 07:41 11:30 WBC RBC Hgb Hct MCV MCH MCHC RDW Plt Count MPV Neut % (Auto) Lymph % (Auto) [place] % (Auto) Eos % (Auto) Baso % (Auto) Neut # (Auto) Lymph # (Auto) [place] # (Auto) Eos # (Auto) Baso # (Auto) ESR Sodium Potassium Chloride Carbon Dioxide Anion Gap BUN Creatinine Est GFR ( Amer) Est GFR (Non-Af Amer) POC Glucose (mg/dL) 161 H 224 H Random Glucose Calcium Phosphorus Magnesium Total Bilirubin AST ALT Alkaline Phosphatase C-React Prot High Sens 2.82 Total Protein Albumin Globulin Albumin/Globulin Ratio Complement C3 56.0 L Complement C4 9.9 L Anti-Staphylolysin O Anti-Streptolysin Titr Blood Type Antibody Screen Critical Care Progress Note - Nutrition Nutrition: Nutrition Category Date Time Status Consistent Carbohydrate [DIET] Diets 09/08/17 Breakfast Active Attending/Attestation - Attestation I have personally seen and examined this patient.: Yes I have fully participated in the care of the patient.: Yes I have reviewed all pertinent clinical information: Yes Notes (Text): 09/10/17 12:23 Today: August The Patient was seen and examined at the bedside, Medical records reviewed, and management issues were discussed and formulated with the house staff. I have reviewed all the relevant clinical, laboratory, hemodynamic, radiographic data and medications Events reviewed Pain issues, skin care, head of the bed elevation, glycemic control were addressed. Agree with above resident's assessment and treatment plans of care as transcribed in Dr. Hendrix note.
[2017-09-09] MEDS: (Novolin R) Insulin Human Regular 100 units/ml vial SC SCH ×2 (16:29→21:30)
--- NOTE | 2017-09-09 17:33 | CP.PCM.HP ---
History of Present Illness - History of Present Illness History of Present Illness: chief concern: fever and skin lesions HPI: Patient is a 41yo male with past medical history of hypertension, alcohol- induced liver cirrhosis, hypertension, diabetes, psoriasis that presented with skin lesions in the both palm and soles and skin peeling noted swelling in the extremities noted fever chills not feeling well generalised weakness and feeling chillss The patient was seen by me in my office, at the time patient was doing extremely well, he was not drinking alcohol for quite some time. Patient was able to manage his medications well. He was able to control his sugar better. But he had a somewhat family issues, Gotten worse recently. PMHx: as stated above PSHx: history of endoscopy/colonoscopy Allergies: NKDA Family hx: Father: history of heart transplant; Mother: hypertension/diabetes Social Hx: Daily alcohol consumption (~1pint of vodka per day), denies illicit drug use and former tobacco use Endoscopy hx: Endoscopy/Colonoscopy completed in 10/2015 - revealed grade 1 esophageal varices, LA Grade B Esophagitis, internal hemorrhoids, edema of the ascending colon ROS: the chart Vital signs reviewed No neck vein distention noted Chest good air entry bilaterally, no wheezing or rales noted CVS regular heart sound, no murmur noted abdominal distention noted pedal edema noted [employer] alert awake oriented -3, no functional neurological deficit patient is having tremor Psoriatic skin lesions worsening labs reveal Low hemoglobin noted Coagulopathy high wbc fever Assessment and recommended 41-year-old male, hypertension, alcoholic liver disease, diabetes, psoriasis admitted with acute alcoholic intoxication, acute GI bleed, and4 anemia. patient overall prognosis is very poor, will continue the IICU monitoring. acute severe sepsis with lactate high on antibotics iv hydration GI eval will f/u Present on Admission - Present on Admission Any Indicators Present on Admission: No History of DVT/PE: No History of Uncontrolled Diabetes: No Urinary Catheter: No Decubitus Ulcer Present: No Past Patient History - Infectious Disease Hx of Infectious Diseases: None - Past Medical History & Family History Past Medical History?: Yes - Past Social History Smoking Status: Never Smoked Alcohol: Other (denies alchohol in the recent past) - CARDIAC Hx Congestive Heart Failure: Yes Hx Hypercholesterolemia: Yes Hx Hypertension: Yes - PULMONARY Hx Asthma: Yes Hx Pneumonia: Yes - NEUROLOGICAL Hx Seizures: Yes (etoh induced) - HEENT Hx HEENT Problems: No - RENAL Hx Chronic Kidney Disease: No - ENDOCRINE/METABOLIC Hx Diabetes Mellitus Type 2: Yes - HEMATOLOGICAL/ONCOLOGICAL Hx Anemia: Yes Hx Human Immunodeficiency Virus (HIV): No - INTEGUMENTARY Hx Dermatological Problems: Yes Hx Psoriasis: Yes Other/Comment: Psoriatic Arthritis - MUSCULOSKELETAL/RHEUMATOLOGICAL Hx Arthritis: Yes Hx Rheumatoid Arthritis: Yes - GASTROINTESTINAL Other/Comment: Liver disease - GENITOURINARY/GYNECOLOGICAL Hx Sexually Transmitted Disorders: No - PSYCHIATRIC Hx Anxiety: Yes Hx Depression: Yes Hx Substance Use: No - SURGICAL HISTORY Hx Surgeries: Yes - ANESTHESIA Hx Anesthesia: Yes Hx Anesthesia Reactions: No Hx Malignant Hyperthermia: No Meds Allergies/Adverse Reactions: Allergies Allergy/AdvReac Type Severity Reaction Status Date / Time No Known Allergies Allergy Verified 09/07/17 22:49 Results - Vital Signs Recent Vital Signs: Last Vital Signs Temp 97.9 F 09/09/17 12:00 Pulse 108 H 09/09/17 13:00 Resp 19 09/09/17 13:00 BP 149/92 H 09/09/17 13:00 Pulse Ox 85 L 09/09/17 13:00 - Labs Result Diagrams: 09/11/17 06:07 09/11/17 06:07 Labs: Laboratory Results - last 24 hr 09/08/17 09/09/17 09/09/17 18:21 06:03 06:04 WBC 20.6 H D RBC 2.61 L Hgb 7.6 L Hct 22.6 L MCV 86.4 MCH 29.0 MCHC 33.5 RDW 21.3 H Plt Count 129 L D MPV 7.2 Neut % (Auto) 82.9 H Lymph % (Auto) 8.7 L [place] % (Auto) 8.1 Eos % (Auto) 0.1 Baso % (Auto) 0.2 Neut # (Auto) 17.1 H Lymph # (Auto) 1.8 [place] # (Auto) 1.7 H Eos # (Auto) 0.0 Baso # (Auto) 0.0 Neutrophils % (Manual) 84 H Lymphocytes % (Manual) 7 L Monocytes % (Manual) 9 Platelet Estimate Normal Polychromasia Slight Hypochromasia (manual) Moderate Poikilocytosis (manual Slight Anisocytosis (manual) Slight Microcytosis (manual) Slight Target Cells Slight Ovalocytes Slight Pepe Cells Slight Sodium 140 Potassium 3.7 Chloride 107 Carbon Dioxide 17 L Anion Gap 20 BUN 14 Creatinine 1.2 Est GFR ( Amer) > 60 Est GFR (Non-Af Amer) > 60 Random Glucose 162 H Calcium 7.4 L Phosphorus 2.8 Magnesium 1.6 Total Bilirubin 4.4 H AST 43 ALT 17 L D Alkaline Phosphatase 144 H Total Protein 7.2 Albumin 2.4 L Globulin 4.8 H Albumin/Globulin Ratio 0.5 L Urine Color Tammy Urine Clarity Hazy Urine pH 5.0 Ur Specific [place] 1.025 Urine Protein Negative Urine Glucose (UA) Normal Urine Ketones Trace Urine Blood 2+ H Urine Nitrate Negative Urine Bilirubin Negative Urine Urobilinogen 4.0 Ur Leukocyte Esterase Neg Urine WBC (Auto) 2 Urine RBC (Auto) 11 H Ur Squamous Epith Cells < 1 Ur Transition Epith Cell < 1 Calcium Oxalate Crystal Rare Urine Bacteria Rare
--- NOTE | 2017-09-09 17:33 | CP.PCM.PN ---
Subjective - Date & Time of Evaluation Date of Evaluation: 09/09/17 Time of Evaluation: 17:33 - Subjective Subjective: Stable clinically, receiving blood continue to monitor. Will follow-u Objective - Vital Signs/Intake and Output Vital Signs (last 24 hours): Temp Pulse Resp BP Pulse Ox 97.9 F 108 H 19 149/92 H 85 L 09/09/17 12:00 09/09/17 13:00 09/09/17 13:00 09/09/17 13:00 09/09/17 13:00 Intake and Output: 09/09/17 09/09/17 06:59 18:59 Intake Total 915 350 Output Total 150 700 Balance 765 -350 - Medications Medications: Current Medications Acetaminophen (Tylenol 325mg Tab) 975 mg PO ONCE PRN PRN Reason: Fever >100.4 F Last Admin: 09/07/17 23:50 Dose: 975 mg Albuterol (Ventolin Hfa 90 Mcg/Actuation (8 G)) 1 puff INH RQ6 PRN PRN Reason: Wheezing Albuterol Sulfate (Albuterol 0.042% Inhal Marlene (1.25mg/3ml) Ud) 1.25 mg INH RQ4 PRN PRN Reason: Shortness of Breath Escitalopram Oxalate (Lexapro) 10 mg PO DAILY [facility] Last Admin: 09/09/17 16:20 Dose: 10 mg Piperacillin Sod/Tazobactam Sod (Zosyn 3.375 Gm Iv Premix) 3.375 gm in 50 mls @ 100 mls/hr IVPB Q8H FLY PRN Reason: Protocol Last Admin: 09/09/17 17:25 Dose: 100 mls/hr Insulin Human Regular (Novolin R) 0 unit SC ACHS FLY PRN Reason: Protocol Last Admin: 09/09/17 16:29 Dose: 2 unit Lactic Acid (Lac-Hydrin 12% Lotion (225 G)) 0 gm EXT BID [facility] Last Admin: 09/09/17 17:25 Dose: 1 applic Losartan Potassium (Cozaar) 50 mg PO DAILY FLY Pantoprazole Sodium (Protonix Ec Tab) 40 mg PO DAILY [facility] Last Admin: 09/09/17 10:46 Dose: 40 mg - Labs Labs: 09/09/17 06:04 09/09/17 06:03 PT 28.9 SECONDS (9.7-12.2) H 04/11/18 07:24 INR 2.4 09/08/17 07:24 APTT 44 SECONDS (21-34) H 09/08/17 07:24
[2017-09-09] MEDS: traZODone 25 mg Tab PO SCH (22:30)
[2017-09-10] MEDS: Piperacill/Tazo 3.375gm in Dex 3.375 GM/50 ML BAG IVPB SCH ×3 (01:25→17:28)
[2017-09-10 06:22] LABS: BASO # 0.1 K/uL (0.0-0.2); BASO % 0.4 % (0.0-2.0); EOS # 0.6 K/uL (0.0-0.7); EOS % 3.9 % (0.0-4.0); HEMOGLOBIN 7.4 g/dL (12.0-18.0); LYMPH # 2.3 K/uL (1.0-4.3); MEAN CELL VOLUME 87.1 fL (80.0-94.0); MEAN CORPUSCULAR HEMOGLOBIN 28.9 pg (27.0-31.0); MEAN CORPUSCULAR HGB CONC 33.2 g/dL (33.0-37.0); MEAN PLATELET VOLUME 7.1 fL (7.2-11.7); MONO # 1.8 K/uL (0.0-0.8); MONO % 11.9 % (0.0-10.0); NEUT # 10.7 K/uL (1.8-7.0); NEUT % 68.8 % (50.0-75.0); NRBC % 0.1 % (0.0-2.0); RBC 2.55 Mil/uL (4.40-5.90); RED CELL DISTRIBUTION WIDTH 21.3 % (11.5-14.5); WHITE BLOOD COUNT 15.5 K/uL (4.8-10.8)
[2017-09-10 06:39] LABS: ALB/GLOB RATIO 0.5 (1.0-2.1); ALBUMIN 2.2 g/dL (3.5-5.0); ALT/SGPT 25 U/L (21-72); AST/SGOT 44 U/L (17-59); BLOOD UREA NITROGEN 11 mg/dL (9-20); CALCIUM 6.6 mg/dl (8.6-10.4); GFR AFRICAN-AMERICAN > 60; GFR NON-AFRICAN AMERICAN > 60
[2017-09-10 06:40] LABS: COMPLEMENT C4 9.9 mg/dL (14.0-44.0)
[2017-09-10] MEDS: (Novolin R) Insulin Human Regular 100 units/ml vial SC SCH ×4 (07:51→22:15)
[2017-09-10] MEDS: Albuterol 0.042% Inhal Sol (1.25 mg/3 mL) UD INH PRN (07:58)
[2017-09-10] MEDS ORDERED: Magnesium Sulfate 1 gm in D5W 1 GM/100 ML BAG IVPB ONE (08:15)
[2017-09-10] MEDS: Ammonium Lactate 12% Lotion (225 g) EXT SCH ×2 (09:21→17:27)
[2017-09-10] MEDS: Pantoprazole 40 mg EC Tab PO SCH (09:23)
--- NOTE | 2017-09-10 10:37 | CP.PCM.CON ---
<Tom Martines - Last Filed: 09/10/17 10:54> History of Present Illness - History of Present Illness History of Present Illness: PGY5 GI Fellow Consult Note Patient is a 41yo male with past medical history significant for compensated EtOH cirrhosis, HTN, DM who presented to the ED with dermatologic complaints. Our service has been consulted given the patient's history of EtOH abuse and cirrhosis. Since discharge in mid-July, patient has slowly noted worsening of diffuse skin dryness, scaling and peeling. Symptoms became so severe that he was noticing bleeding at some sites and came to the ED for further evaluation. On admission, patient was noted to have hyperbilirubinemia, anemia and leukocytosis. He denies any EtOH use prior to admission with most recent use in early July. He denies any melena, hematochezia, jaundice, hematemesis, abdominal pain. PMHx: See HPI PSHx: Denies FHx: Father: history of heart transplant; Mother: hypertension/diabetes Social: Daily alcohol consumption until July 2017 (~1pint of vodka per day), no tobacco or illicit drug use Endo: EGD 08/05/17 - irregular Z-line - no biopsy taken due to thrombocytopenia ( < 50) 12 system ROS performed and negative except where stated Past Patient History - Infectious Disease Hx of Infectious Diseases: None - Past Medical History & Family History Past Medical History?: Yes - Past Social History Smoking Status: Never Smoked Alcohol: Other (denies alchohol in the recent past) - CARDIAC Hx Congestive Heart Failure: Yes Hx Hypercholesterolemia: Yes Hx Hypertension: Yes - PULMONARY Hx Asthma: Yes Hx Pneumonia: Yes - NEUROLOGICAL Hx Seizures: Yes (etoh induced) - HEENT Hx HEENT Problems: No - RENAL Hx Chronic Kidney Disease: No - ENDOCRINE/METABOLIC Hx Diabetes Mellitus Type 2: Yes - HEMATOLOGICAL/ONCOLOGICAL Hx Anemia: Yes Hx Human Immunodeficiency Virus (HIV): No - INTEGUMENTARY Hx Dermatological Problems: Yes Hx Psoriasis: Yes Other/Comment: Psoriatic Arthritis - MUSCULOSKELETAL/RHEUMATOLOGICAL Hx Arthritis: Yes Hx Rheumatoid Arthritis: Yes - GASTROINTESTINAL Other/Comment: Liver disease - GENITOURINARY/GYNECOLOGICAL Hx Sexually Transmitted Disorders: No - PSYCHIATRIC Hx Anxiety: Yes Hx Depression: Yes Hx Substance Use: No - SURGICAL HISTORY Hx Surgeries: Yes - ANESTHESIA Hx Anesthesia: Yes Hx Anesthesia Reactions: No Hx Malignant Hyperthermia: No Meds Allergies/Adverse Reactions: Allergies Allergy/AdvReac Type Severity Reaction Status Date / Time No Known Allergies Allergy Verified 09/07/17 22:49 - Medications Medications: Current Medications Albuterol (Ventolin Hfa 90 Mcg/Actuation (8 G)) 1 puff INH RQ6 PRN PRN Reason: Wheezing Albuterol Sulfate (Albuterol 0.042% Inhal Marlene (1.25mg/3ml) Ud) 1.25 mg INH RQ4 PRN PRN Reason: Shortness of Breath Last Admin: 09/10/17 07:58 Dose: 1.25 mg Escitalopram Oxalate (Lexapro) 10 mg PO DAILY [facility] Last Admin: 09/10/17 09:22 Dose: 10 mg Gabapentin (Neurontin) 100 mg PO TID [facility] Last Admin: 09/10/17 09:22 Dose: 100 mg Piperacillin Sod/Tazobactam Sod (Zosyn 3.375 Gm Iv Premix) 3.375 gm in 50 mls @ 100 mls/hr IVPB Q8H FLY PRN Reason: Protocol Last Admin: 09/10/17 09:22 Dose: 100 mls/hr Insulin Human Regular (Novolin R) 0 unit SC ACHS FLY PRN Reason: Protocol Last Admin: 09/10/17 07:51 Dose: 2 unit Lactic Acid (Lac-Hydrin 12% Lotion (225 G)) 0 gm EXT BID [facility] Last Admin: 09/10/17 09:21 Dose: 1 applic Metoprolol Tartrate (Lopressor) 25 mg PO BID [facility] Pantoprazole Sodium (Protonix Ec Tab) 40 mg PO DAILY [facility] Last Admin: 09/10/17 09:23 Dose: 40 mg Trazodone HCl (Desyrel) 25 mg PO HS [facility] Last Admin: 09/09/17 22:30 Dose: 25 mg Physical Exam - Constitutional Appears: No Acute Distress, Chronically Ill - Eye Exam Eye Exam: EOMI, PERRL - ENT Exam ENT Exam: Mucous Membranes Dry - Respiratory Exam Respiratory Exam: Clear to Auscultation Bilateral. absent: Rales, Rhonchi, Wheezes - Cardiovascular Exam Cardiovascular Exam: RRR, +S1, +S2 - GI/Abdominal Exam GI & Abdominal Exam: Normal Bowel Sounds, Soft. absent: Distended, Firm, Guarding, Organomegaly, Rigid, Tenderness - Extremities Exam Extremities exam: Positive for: normal inspection. Negative for: pedal edema - Neurological Exam Neurological exam: Alert, Oriented x3 Additional comments: +asterixis - Psychiatric Exam Psychiatric exam: Normal Affect, Normal Mood - Skin Skin Exam: Dry Additional comments: diffuse desquamation Results - Vital Signs Recent Vital Signs: Last Vital Signs Temp 98.4 F 09/10/17 08:00 Pulse 131 H 09/10/17 09:01 Resp 29 H 09/10/17 09:01 BP 130/66 09/10/17 09:02 Pulse Ox 94 L 09/10/17 09:01 - Labs Result Diagrams: 09/10/17 06:11 09/10/17 06:11 Labs: Laboratory Results - last 24 hr 09/09/17 09/09/17 09/10/17 16:25 21:18 06:11 WBC 15.5 H RBC 2.55 L Hgb 7.4 L Hct 22.2 L MCV 87.1 MCH 28.9 MCHC 33.2 RDW 21.3 H Plt Count 113 L MPV 7.1 L Neut % (Auto) 68.8 Lymph % (Auto) 15.0 L [place] % (Auto) 11.9 H Eos % (Auto) 3.9 Baso % (Auto) 0.4 Neut # (Auto) 10.7 H Lymph # (Auto) 2.3 [place] # (Auto) 1.8 H Eos # (Auto) 0.6 Baso # (Auto) 0.1 ESR 80 H Sodium Potassium Chloride Carbon Dioxide Anion Gap BUN Creatinine Est GFR ( Amer) Est GFR (Non-Af Amer) POC Glucose (mg/dL) 183 H 158 H Random Glucose Calcium Phosphorus Magnesium Total Bilirubin AST ALT Alkaline Phosphatase C-React Prot High Sens Total Protein Albumin Globulin Albumin/Globulin Ratio Complement C3 Complement C4 09/10/17 09/10/17 09/10/17 06:11 06:11 07:41 WBC RBC Hgb Hct MCV MCH MCHC RDW Plt Count MPV Neut % (Auto) Lymph % (Auto) [place] % (Auto) Eos % (Auto) Baso % (Auto) Neut # (Auto) Lymph # (Auto) [place] # (Auto) Eos # (Auto) Baso # (Auto) ESR Sodium 141 Potassium 3.8 Chloride 108 H Carbon Dioxide 19 L Anion Gap 17 BUN 11 Creatinine 1.0 Est GFR ( Amer) > 60 Est GFR (Non-Af Amer) > 60 POC Glucose (mg/dL) 161 H Random Glucose 124 H Calcium 6.6 L Phosphorus 2.3 L Magnesium 1.6 Total Bilirubin 2.7 H AST 44 ALT 25 Alkaline Phosphatase 139 H C-React Prot High Sens 2.82 Total Protein 6.4 Albumin 2.2 L Globulin 4.2 H Albumin/Globulin Ratio 0.5 L Complement C3 56.0 L Complement C4 9.9 L Assessment & Plan - Assessment and Plan (Free Text) Assessment: Patient is a 41yo male with past medical history significant for compensated EtOH cirrhosis, HTN, DM who presented to the ED with dermatologic complaints -Previously compensated EtOH cirrhosis - now with suspicion for HE -Diffuse desquamation -Chronic normocytic anemia Plan: -Recommend dermatology consultation -Start Lactulose 20g PO QHS and titrate to 1-2BM/day -No evidence of overt GI bleeding -Repeat EGD as outpatient on follow up given irregular Z-line and need for biopsy -Encourage ongoing EtOH abstinence, formal rehabilitation -MVI supplementation (? mineral/vitamin deficiency leading to skin manifestations) -Daily MELD-Na labs - CBC, CMP, INR *MELD-Na: 20 - consider evaluation at transplant center if patient can remain sober >6 months - Date & Time Date: 09/10/17 Time: 07:10 <Annabella Jeffers - Last Filed: 09/10/17 11:23> Meds - Medications Medications: Current Medications Albuterol (Ventolin Hfa 90 Mcg/Actuation (8 G)) 1 puff INH RQ6 PRN PRN Reason: Wheezing Albuterol Sulfate (Albuterol 0.042% Inhal Marlene (1.25mg/3ml) Ud) 1.25 mg INH RQ4 PRN PRN Reason: Shortness of Breath Last Admin: 09/10/17 07:58 Dose: 1.25 mg Escitalopram Oxalate (Lexapro) 10 mg PO DAILY [facility] Last Admin: 09/10/17 09:22 Dose: 10 mg Gabapentin (Neurontin) 100 mg PO TID FLY Last Admin: 09/10/17 09:22 Dose: 100 mg Piperacillin Sod/Tazobactam Sod (Zosyn 3.375 Gm Iv Premix) 3.375 gm in 50 mls @ 100 mls/hr IVPB Q8H FLY PRN Reason: Protocol Last Admin: 09/10/17 09:22 Dose: 100 mls/hr Insulin Human Regular (Novolin R) 0 unit SC ACHS FLY PRN Reason: Protocol Last Admin: 09/10/17 07:51 Dose: 2 unit Lactic Acid (Lac-Hydrin 12% Lotion (225 G)) 0 gm EXT BID [facility] Last Admin: 09/10/17 09:21 Dose: 1 applic Lactulose (Enulose) 20 gm PO HS [facility] Metoprolol Tartrate (Lopressor) 25 mg PO BID FLY Last Admin: 09/10/17 11:06 Dose: 25 mg Multivitamins (Hexavitamin) 1 tab PO DAILY FLY Pantoprazole Sodium (Protonix Ec Tab) 40 mg PO DAILY [facility] Last Admin: 09/10/17 09:23 Dose: 40 mg Trazodone HCl (Desyrel) 25 mg PO HS [facility] Last Admin: 09/09/17 22:30 Dose: 25 mg Results - Vital Signs Recent Vital Signs: Last Vital Signs Temp 98.4 F 09/10/17 08:00 Pulse 131 H 09/10/17 09:01 Resp 29 H 09/10/17 09:01 BP 105/60 09/10/17 11:06 Pulse Ox 94 L 09/10/17 09:01 - Labs Result Diagrams: 09/10/17 06:11 09/10/17 06:11 Labs: Laboratory Results - last 24 hr 09/08/17 09/09/17 09/09/17 11:02 16:25 21:18 WBC RBC Hgb Hct MCV MCH MCHC RDW Plt Count MPV Neut % (Auto) Lymph % (Auto) [place] % (Auto) Eos % (Auto) Baso % (Auto) Neut # (Auto) Lymph # (Auto) [place] # (Auto) Eos # (Auto) Baso # (Auto) ESR Sodium Potassium Chloride Carbon Dioxide Anion Gap BUN Creatinine Est GFR ( Amer) Est GFR (Non-Af Amer) POC Glucose (mg/dL) 183 H 158 H Random Glucose Calcium Phosphorus Magnesium Total Bilirubin AST ALT Alkaline Phosphatase C-React Prot High Sens Total Protein Albumin Globulin Albumin/Globulin Ratio Complement C3 Complement C4 Anti-Staphylolysin O Anti-Streptolysin Titr Blood Type AB POSITIVE Antibody Screen Negative 09/10/17 09/10/17 09/10/17 04:00 06:11 06:11 WBC 15.5 H RBC 2.55 L Hgb 7.4 L Hct 22.2 L MCV 87.1 MCH 28.9 MCHC 33.2 RDW 21.3 H Plt Count 113 L MPV 7.1 L Neut % (Auto) 68.8 Lymph % (Auto) 15.0 L [place] % (Auto) 11.9 H Eos % (Auto) 3.9 Baso % (Auto) 0.4 Neut # (Auto) 10.7 H Lymph # (Auto) 2.3 [place] # (Auto) 1.8 H Eos # (Auto) 0.6 Baso # (Auto) 0.1 ESR 80 H Sodium 141 Potassium 3.8 Chloride 108 H Carbon Dioxide 19 L Anion Gap 17 BUN 11 Creatinine 1.0 Est GFR ( Amer) > 60 Est GFR (Non-Af Amer) > 60 POC Glucose (mg/dL) Random Glucose 124 H Calcium 6.6 L Phosphorus 2.3 L Magnesium 1.6 Total Bilirubin 2.7 H AST 44 ALT 25 Alkaline Phosphatase 139 H C-React Prot High Sens Total Protein 6.4 Albumin 2.2 L Globulin 4.2 H Albumin/Globulin Ratio 0.5 L Complement C3 Complement C4 Anti-Staphylolysin O Positive H Anti-Streptolysin Titr =>800 iu/ml H Blood Type Antibody Screen 09/10/17 09/10/17 06:11 07:41 WBC RBC Hgb Hct MCV MCH MCHC RDW Plt Count MPV Neut % (Auto) Lymph % (Auto) [place] % (Auto) Eos % (Auto) Baso % (Auto) Neut # (Auto) Lymph # (Auto) [place] # (Auto) Eos # (Auto) Baso # (Auto) ESR Sodium Potassium Chloride Carbon Dioxide Anion Gap BUN Creatinine Est GFR ( Amer) Est GFR (Non-Af Amer) POC Glucose (mg/dL) 161 H Random Glucose Calcium Phosphorus Magnesium Total Bilirubin AST ALT Alkaline Phosphatase C-React Prot High Sens 2.82 Total Protein Albumin Globulin Albumin/Globulin Ratio Complement C3 56.0 L Complement C4 9.9 L Anti-Staphylolysin O Anti-Streptolysin Titr Blood Type Antibody Screen Attending/Attestation - Attestation I have personally seen and examined this patient.: Yes I have fully participated in the care of the patient.: Yes I have reviewed all pertinent clinical information: Yes Notes (Text): 09/10/17 11:20 I have seen and examined patient with GI fellow and biomedical instrument technician. Agree with above documentation with the following additions. In brief, this is a 41 year old male with history of ETOH cirrhosis, HTN, DM, psoriasis who presents to hospital with complaint of desquamation of skin which is chronic. He denies associated abdominal pain, nausea, vomiting, diarrhea, weight loss. He denies ongoing ETOH abuse- last use 08/15 He had an EGD/colonoscopy in 2018 which showed grade I varices, esophagitis, internal hemorrhoids. Will get dermatology / rheumatology consult for skin lesions. Low salt diet. Continue with lactulose for HE prevention, titrate so patient has 2-3 bowel movements daily. No further GI intervention required. LFT at baseline. Thank you for letting us participate in the care of your patient
[2017-09-10 10:57] LABS: ANTI SREPTOLYSIN O POSITIVE (NEGATIVE)
[2017-09-10 10:58] LABS: ASO TITER =>800 IU/ML (NEGATIVE)
[2017-09-10] MEDS: Multiple Vitamins Tab PO SCH (11:53)
--- NOTE | 2017-09-10 12:51 | CP.CCUPN ---
<Orlin Hendrix - Last Filed: 09/10/17 14:36> CCU Subjective - Physician Review Subjective (Free Text): 09/09/17 12:35 Patient seen and examined. Patient continues to complain of excessive peeling of the skin of his extremities. Patient has difficulty grasping objects and weakness with ambulation. 09/10/17 12:47 Patient seen and examined. Patient complaining of continued pain in the hands. No new complaints at this time. CCU Objective - Vital Signs / Intake & Output Vital Signs (Last 4 hours): Vital Signs Temp Pulse Resp BP Pulse Ox 09/10/17 12:20 98.4 F 130 H 22 100/52 L 09/10/17 12:05 98.5 F 129 H 20 116/60 100 09/10/17 12:00 98.2 F 131 H 15 100 09/10/17 11:50 131 H 22 113/57 L 100 09/10/17 11:30 98.5 F 131 H 22 105/60 09/10/17 11:06 134 H 23 105/60 100 09/10/17 11:00 133 H 17 99/62 L 100 09/10/17 10:00 135 H 22 115/68 100 09/10/17 09:02 125 H 41 H 130/66 100 09/10/17 09:01 131 H 29 H 94 L 09/10/17 09:00 65 35 H 97 Intake and Output (Last 8hrs): Intake & Output 09/09/17 09/10/17 09/10/17 22:59 06:59 14:59 Intake Total 370 290 930 Output Total 450 200 225 Balance -80 90 705 Weight 210 lb 8.663 oz 210 lb 8.663 oz Intake: Intake, IV Amount 50 50 150 Left Antecubital 50 50 Right Antecubital 150 Oral 320 240 780 Blood Product 0 Apheresis Rbc Cp2d As3 Lr 0 1st Unit [id number] Output: Urine 450 200 225 Urine, Voided 450 200 225 Other: # Voids Urine, Voided 1 1 1 # Bowel Movements 1 - Physical Exam Head: Positive for: Atraumatic, Normocephalic Pupils: Positive for: PERRL Extroacular Muscles: Positive for: EOMI Mouth: Positive for: Moist Mucous Membranes Respiratory/Chest: Positive for: Clear to Auscultation. Negative for: Wheezes, Rales, Rhonchi Cardiovascular: Positive for: Normal S1, S2, Tachycardic Abdomen: Positive for: Normal Bowel Sounds. Negative for: Tenderness Upper Extremity: Positive for: Other (extensive peeling of the skin on the hands ) Lower Extremity: Positive for: Edema (trace pedal edema bilaterally), Other ( extensive peeling of the skin of the legs) Skin: Positive for: Warm, Dry Psychiatric: Positive for: Alert, Oriented x 3 - Medications Active Medications: Active Medications Generic Name Dose Route Start Last Admin Trade Name Freq PRN Reason Stop Dose Admin Albuterol 1 puff 09/09/17 09:00 Ventolin Hfa 90 Mcg/Actuation (8 G) INH RQ6 PRN Wheezing Albuterol Sulfate 1.25 mg 09/09/17 09:01 09/10/17 07:58 Albuterol 0.042% Inhal Marlene (1.25mg/3ml) Ud INH 1.25 mg RQ4 PRN Administration Shortness of Breath Escitalopram Oxalate 10 mg 09/09/17 12:45 09/10/17 09:22 Lexapro PO 10 mg DAILY FLY Administration Gabapentin 100 mg 09/09/17 18:00 09/10/17 09:22 Neurontin PO 100 mg TID FLY Administration Piperacillin Sod/Tazobactam Sod 3.375 gm in 50 mls @ 100 mls/hr 09/08/17 02: 00 09/10/17 09:22 Zosyn 3.375 Gm Iv Premix IVPB 100 mls/hr Q8H FLY Administration Protocol Insulin Human Regular 0 unit 09/09/17 16:30 09/10/17 11:53 Novolin R SC 3 unit ACHS FLY Administration Protocol Lactic Acid 0 gm 09/08/17 10:00 09/10/17 09:21 Lac-Hydrin 12% Lotion (225 G) EXT 1 applic BID FLY Administration Lactulose 20 gm 09/10/17 22:[address] [facility] Metoprolol Tartrate 25 mg 09/10/17 10:30 09/10/17 11:06 Lopressor PO 25 mg BID FLY Administration Multivitamins 1 tab 09/10/17 11:15 09/10/17 11:53 Hexavitamin PO 1 tab DAILY FLY Administration Pantoprazole Sodium 40 mg 09/08/17 10:00 09/10/17 09:23 Protonix Ec Tab PO 40 mg DAILY FLY Administration Trazodone HCl 25 mg 09/09/17 22:00 09/09/17 22:30 Desyrel PO 25 mg HS FLY Administration - Patient Studies Lab Studies: Microbiology Studies 09/09/17 05:05 Urine Culture - Final Urine,Clean Catch No Growth (<1,000 CFU/ML) 09/07/17 22:53 Blood Culture - Preliminary Blood NO GROWTH AFTER 48 HOURS 09/07/17 22:53 Blood Culture - Preliminary Blood NO GROWTH AFTER 48 HOURS 09/08/17 01:44 MRSA Culture (Admit) - Final Nose MRSA NOT DETECTED Lab Studies 09/10/17 09/10/17 09/10/17 Range/Units 11:30 07:41 06:11 WBC (4.8-10.8) K/uL RBC (4.40-5.90) Mil/uL Hgb (12.0-18.0) g/dL Hct (35.0-51.0) % MCV (80.0-94.0) fL MCH (27.0-31.0) pg MCHC (33.0-37.0) g/dL RDW (11.5-14.5) % Plt Count (130-400) K/uL MPV (7.2-11.7) fL Neut % (Auto) (50.0-75.0) % Lymph % (Auto) (20.0-40.0) % [place] % (Auto) (0.0-10.0) % Eos % (Auto) (0.0-4.0) % Baso % (Auto) (0.0-2.0) % Neut # (Auto) (1.8-7.0) K/uL Lymph # (Auto) (1.0-4.3) K/uL [place] # (Auto) (0.0-0.8) K/uL Eos # (Auto) (0.0-0.7) K/uL Baso # (Auto) (0.0-0.2) K/uL ESR (0-15) mm/hr Sodium (132-148) mmol/L Potassium (3.6-5.2) mmol/L Chloride (98-107) mmol/L Carbon Dioxide (22-30) mmol/L Anion Gap (10-20) BUN (9-20) mg/dL Creatinine (0.8-1.5) mg/dL Est GFR ( Amer) Est GFR (Non-Af Amer) POC Glucose (mg/dL) 224 H 161 H (65-110) mg/dL Random Glucose (75-110) mg/dL Calcium (8.6-10.4) mg/dl Phosphorus (2.5-4.5) mg/dL Magnesium (1.6-2.3) mg/dL Total Bilirubin (0.2-1.3) mg/dL AST (17-59) U/L ALT (21-72) U/L Alkaline Phosphatase (38-126) U/L C-React Prot High Sens 2.82 (1.00-3.00) mg/L Total Protein (6.3-8.3) g/dL Albumin (3.5-5.0) g/dL Globulin (2.2-3.9) gm/dL Albumin/Globulin Ratio (1.0-2.1) Complement C3 56.0 L (88.0-165.0) mg/dL Complement C4 9.9 L (14.0-44.0) mg/dL Anti-Staphylolysin O (NEGATIVE) Anti-Streptolysin Titr (NEGATIVE) Blood Type Antibody Screen 09/10/17 09/10/17 09/10/17 Range/Units 06:11 06:11 04:00 WBC 15.5 H (4.8-10.8) K/uL RBC 2.55 L (4.40-5.90) Mil/uL Hgb 7.4 L (12.0-18.0) g/dL Hct 22.2 L (35.0-51.0) % MCV 87.1 (80.0-94.0) fL MCH 28.9 (27.0-31.0) pg MCHC 33.2 (33.0-37.0) g/dL RDW 21.3 H (11.5-14.5) % Plt Count 113 L (130-400) K/uL MPV 7.1 L (7.2-11.7) fL Neut % (Auto) 68.8 (50.0-75.0) % Lymph % (Auto) 15.0 L (20.0-40.0) % [place] % (Auto) 11.9 H (0.0-10.0) % Eos % (Auto) 3.9 (0.0-4.0) % Baso % (Auto) 0.4 (0.0-2.0) % Neut # (Auto) 10.7 H (1.8-7.0) K/uL Lymph # (Auto) 2.3 (1.0-4.3) K/uL [place] # (Auto) 1.8 H (0.0-0.8) K/uL Eos # (Auto) 0.6 (0.0-0.7) K/uL Baso # (Auto) 0.1 (0.0-0.2) K/uL ESR 80 H (0-15) mm/hr Sodium 141 (132-148) mmol/L Potassium 3.8 (3.6-5.2) mmol/L Chloride 108 H (98-107) mmol/L Carbon Dioxide 19 L (22-30) mmol/L Anion Gap 17 (10-20) BUN 11 (9-20) mg/dL Creatinine 1.0 (0.8-1.5) mg/dL Est GFR ( Amer) > 60 Est GFR (Non-Af Amer) > 60 POC Glucose (mg/dL) (65-110) mg/dL Random Glucose 124 H (75-110) mg/dL Calcium 6.6 L (8.6-10.4) mg/dl Phosphorus 2.3 L (2.5-4.5) mg/dL Magnesium 1.6 (1.6-2.3) mg/dL Total Bilirubin 2.7 H (0.2-1.3) mg/dL AST 44 (17-59) U/L ALT 25 (21-72) U/L Alkaline Phosphatase 139 H (38-126) U/L C-React Prot High Sens (1.00-3.00) mg/L Total Protein 6.4 (6.3-8.3) g/dL Albumin 2.2 L (3.5-5.0) g/dL Globulin 4.2 H (2.2-3.9) gm/dL Albumin/Globulin Ratio 0.5 L (1.0-2.1) Complement C3 (88.0-165.0) mg/dL Complement C4 (14.0-44.0) mg/dL Anti-Staphylolysin O Positive H (NEGATIVE) Anti-Streptolysin Titr =>800 iu/ml H (NEGATIVE) Blood Type Antibody Screen 09/09/17 09/09/17 09/08/17 Range/Units 21:18 16:25 11:02 WBC (4.8-10.8) K/uL RBC (4.40-5.90) Mil/uL Hgb (12.0-18.0) g/dL Hct (35.0-51.0) % MCV (80.0-94.0) fL MCH (27.0-31.0) pg MCHC (33.0-37.0) g/dL RDW (11.5-14.5) % Plt Count (130-400) K/uL MPV (7.2-11.7) fL Neut % (Auto) (50.0-75.0) % Lymph % (Auto) (20.0-40.0) % [place] % (Auto) (0.0-10.0) % Eos % (Auto) (0.0-4.0) % Baso % (Auto) (0.0-2.0) % Neut # (Auto) (1.8-7.0) K/uL Lymph # (Auto) (1.0-4.3) K/uL [place] # (Auto) (0.0-0.8) K/uL Eos # (Auto) (0.0-0.7) K/uL Baso # (Auto) (0.0-0.2) K/uL ESR (0-15) mm/hr Sodium (132-148) mmol/L Potassium (3.6-5.2) mmol/L Chloride (98-107) mmol/L Carbon Dioxide (22-30) mmol/L Anion Gap (10-20) BUN (9-20) mg/dL Creatinine (0.8-1.5) mg/dL Est GFR ( Amer) Est GFR (Non-Af Amer) POC Glucose (mg/dL) 158 H 183 H (65-110) mg/dL Random Glucose (75-110) mg/dL Calcium (8.6-10.4) mg/dl Phosphorus (2.5-4.5) mg/dL Magnesium (1.6-2.3) mg/dL Total Bilirubin (0.2-1.3) mg/dL AST (17-59) U/L ALT (21-72) U/L Alkaline Phosphatase (38-126) U/L C-React Prot High Sens (1.00-3.00) mg/L Total Protein (6.3-8.3) g/dL Albumin (3.5-5.0) g/dL Globulin (2.2-3.9) gm/dL Albumin/Globulin Ratio (1.0-2.1) Complement C3 (88.0-165.0) mg/dL Complement C4 (14.0-44.0) mg/dL Anti-Staphylolysin O (NEGATIVE) Anti-Streptolysin Titr (NEGATIVE) Blood Type AB POSITIVE Antibody Screen Negative Laboratory Results - last 24 hr 09/08/17 09/09/17 09/09/17 11:02 16:25 21:18 WBC RBC Hgb Hct MCV MCH MCHC RDW Plt Count MPV Neut % (Auto) Lymph % (Auto) [place] % (Auto) Eos % (Auto) Baso % (Auto) Neut # (Auto) Lymph # (Auto) [place] # (Auto) Eos # (Auto) Baso # (Auto) ESR Sodium Potassium Chloride Carbon Dioxide Anion Gap BUN Creatinine Est GFR ( Amer) Est GFR (Non-Af Amer) POC Glucose (mg/dL) 183 H 158 H Random Glucose Calcium Phosphorus Magnesium Total Bilirubin AST ALT Alkaline Phosphatase C-React Prot High Sens Total Protein Albumin Globulin Albumin/Globulin Ratio Complement C3 Complement C4 Anti-Staphylolysin O Anti-Streptolysin Titr Blood Type AB POSITIVE Antibody Screen Negative 09/10/17 09/10/17 09/10/17 04:00 06:11 06:11 WBC 15.5 H RBC 2.55 L Hgb 7.4 L Hct 22.2 L MCV 87.1 MCH 28.9 MCHC 33.2 RDW 21.3 H Plt Count 113 L MPV 7.1 L Neut % (Auto) 68.8 Lymph % (Auto) 15.0 L [place] % (Auto) 11.9 H Eos % (Auto) 3.9 Baso % (Auto) 0.4 Neut # (Auto) 10.7 H Lymph # (Auto) 2.3 [place] # (Auto) 1.8 H Eos # (Auto) 0.6 Baso # (Auto) 0.1 ESR 80 H Sodium 141 Potassium 3.8 Chloride 108 H Carbon Dioxide 19 L Anion Gap 17 BUN 11 Creatinine 1.0 Est GFR ( Amer) > 60 Est GFR (Non-Af Amer) > 60 POC Glucose (mg/dL) Random Glucose 124 H Calcium 6.6 L Phosphorus 2.3 L Magnesium 1.6 Total Bilirubin 2.7 H AST 44 ALT 25 Alkaline Phosphatase 139 H C-React Prot High Sens Total Protein 6.4 Albumin 2.2 L Globulin 4.2 H Albumin/Globulin Ratio 0.5 L Complement C3 Complement C4 Anti-Staphylolysin O Positive H Anti-Streptolysin Titr =>800 iu/ml H Blood Type Antibody Screen 09/10/17 09/10/17 09/10/17 06:11 07:41 11:30 WBC RBC Hgb Hct MCV MCH MCHC RDW Plt Count MPV Neut % (Auto) Lymph % (Auto) [place] % (Auto) Eos % (Auto) Baso % (Auto) Neut # (Auto) Lymph # (Auto) [place] # (Auto) Eos # (Auto) Baso # (Auto) ESR Sodium Potassium Chloride Carbon Dioxide Anion Gap BUN Creatinine Est GFR ( Amer) Est GFR (Non-Af Amer) POC Glucose (mg/dL) 161 H 224 H Random Glucose Calcium Phosphorus Magnesium Total Bilirubin AST ALT Alkaline Phosphatase C-React Prot High Sens 2.82 Total Protein Albumin Globulin Albumin/Globulin Ratio Complement C3 56.0 L Complement C4 9.9 L Anti-Staphylolysin O Anti-Streptolysin Titr Blood Type Antibody Screen Fingerstick Blood Sugar Results: 224 Critical Care Progress Note - Nutrition Nutrition: Nutrition Category Date Time Status Consistent Carbohydrate [DIET] Diets 09/08/17 Breakfast Active Assessment/Plan - Assessment and Plan (Free Text) Assessment: This is a 41 year old male with PMHx HTN, DM, cirrhosis, psoriasis who presented to the hospital for worsening psoriasis. Neuro Awake, verbal Cardio Losartan discontinued Replaced with Lopressor 25 mg PO BID with holding parameters Pulm Hx of asthma Ventolin prn Albuterol nebulizer prn GI Diabetic Diet Protonix 40 mg PO daily Lactulose 20 mg PO HS--titrate to 3 BMs Endocrine Accuchecks ACHS Regular ISS medium dose Infectious Disease Zosyn 3.375 gm Q8H (Day 3) Blood cultures negative so far Dermatology Rheumatology consulted Lac-Hydrin topical BID Heme/onc 1 unit of pRBCs transfused today Prophylaxis Protonix 40 mg PO daily VTE ppx contraindicated due to elevated INR and thrombocytopenia Discussed with Dr. Rodgers <Chuy Rodgers - Last Filed: 09/10/17 15:31> CCU Objective - Vital Signs / Intake & Output Vital Signs (Last 4 hours): Vital Signs Temp Pulse Resp BP Pulse Ox 09/10/17 14:20 98.4 F 100 H 20 115/62 09/10/17 14:00 109 H 20 98 09/10/17 13:50 98.4 F 107 H 19 120/69 100 09/10/17 13:35 124 H 23 114/62 99 09/10/17 13:21 123 H 21 114/64 100 09/10/17 13:20 98.5 F 123 H 20 114/64 09/10/17 13:05 127 H 21 111/94 H 96 09/10/17 13:00 122 H 20 100 09/10/17 12:50 98.6 F 126 H 21 111/64 100 09/10/17 12:35 127 H 19 108/55 L 100 09/10/17 12:20 98.4 F 129 H 21 100/57 L 100 09/10/17 12:05 98.5 F 129 H 20 116/60 100 09/10/17 12:00 98.2 F 131 H 15 100 09/10/17 11:50 131 H 22 113/57 L 100 Intake and Output (Last 8hrs): Intake & Output 09/10/17 09/10/17 09/10/17 06:59 14:59 22:59 Intake Total 290 1329 Output Total 200 225 Balance 90 1104 Weight 210 lb 8.663 oz 210 lb 8.663 oz Intake: Intake, IV Amount 50 150 Left Antecubital 50 Right Antecubital 150 Oral 240 900 Blood Product 279 Apheresis Rbc Cp2d As3 Lr 279 1st Unit [id number] Output: Urine 200 225 Urine, Voided 200 225 Other: # Voids Urine, Voided 1 1 - Medications Active Medications: Active Medications Generic Name Dose Route Start Last Admin Trade Name Freq PRN Reason Stop Dose Admin Albuterol 1 puff 09/09/17 09:00 Ventolin Hfa 90 Mcg/Actuation (8 G) INH RQ6 PRN Wheezing Albuterol Sulfate 1.25 mg 09/09/17 09:01 09/10/17 07:58 Albuterol 0.042% Inhal Malrene (1.25mg/3ml) Ud INH 1.25 mg RQ4 PRN Administration Shortness of Breath Escitalopram Oxalate 10 mg 09/09/17 12:45 09/10/17 09:22 Lexapro PO 10 mg DAILY FLY Administration Gabapentin 100 mg 09/09/17 18:00 09/10/17 13:30 Neurontin PO 100 mg TID FLY Administration Piperacillin Sod/Tazobactam Sod 3.375 gm in 50 mls @ 100 mls/hr 09/08/17 02: 00 09/10/17 09:22 Zosyn 3.375 Gm Iv Premix IVPB 100 mls/hr Q8H FLY Administration Protocol Insulin Human Regular 0 unit 09/09/17 16:30 09/10/17 11:53 Novolin R SC [address] [facility] Administration Protocol Lactic Acid 0 gm 09/08/17 10:00 09/10/17 09:21 Lac-Hydrin 12% Lotion (225 G) EXT 1 applic BID FLY Administration Lactulose 20 gm 09/10/17 22:[address] [facility] Metoprolol Tartrate 25 mg 09/10/17 10:30 09/10/17 11:06 Lopressor PO 25 mg BID FLY Administration Multivitamins 1 tab 09/10/17 11:15 09/10/17 11:53 Hexavitamin PO 1 tab DAILY FLY Administration Pantoprazole Sodium 40 mg 09/08/17 10:00 09/10/17 09:23 Protonix Ec Tab PO 40 mg DAILY FLY Administration Trazodone HCl 25 mg 09/09/17 22:00 09/09/17 22:30 Desyrel PO [address] [facility] Administration - Patient Studies Lab Studies: Microbiology Studies 09/09/17 05:05 Urine Culture - Final Urine,Clean Catch No Growth (<1,000 CFU/ML) 09/07/17 22:53 Blood Culture - Preliminary Blood NO GROWTH AFTER 48 HOURS 09/07/17 22:53 Blood Culture - Preliminary Blood NO GROWTH AFTER 48 HOURS 09/08/17 01:44 MRSA Culture (Admit) - Final Nose MRSA NOT DETECTED Lab Studies 09/10/17 09/10/17 09/10/17 Range/Units 11:30 07:41 06:11 WBC (4.8-10.8) K/uL RBC (4.40-5.90) Mil/uL Hgb (12.0-18.0) g/dL Hct (35.0-51.0) % MCV (80.0-94.0) fL MCH (27.0-31.0) pg MCHC (33.0-37.0) g/dL RDW (11.5-14.5) % Plt Count (130-400) K/uL MPV (7.2-11.7) fL Neut % (Auto) (50.0-75.0) % Lymph % (Auto) (20.0-40.0) % [place] % (Auto) (0.0-10.0) % Eos % (Auto) (0.0-4.0) % Baso % (Auto) (0.0-2.0) % Neut # (Auto) (1.8-7.0) K/uL Lymph # (Auto) (1.0-4.3) K/uL [place] # (Auto) (0.0-0.8) K/uL Eos # (Auto) (0.0-0.7) K/uL Baso # (Auto) (0.0-0.2) K/uL ESR (0-15) mm/hr Sodium (132-148) mmol/L Potassium (3.6-5.2) mmol/L Chloride (98-107) mmol/L Carbon Dioxide (22-30) mmol/L Anion Gap (10-20) BUN (9-20) mg/dL Creatinine (0.8-1.5) mg/dL Est GFR ( Amer) Est GFR (Non-Af Amer) POC Glucose (mg/dL) 224 H 161 H (65-110) mg/dL Random Glucose (75-110) mg/dL Calcium (8.6-10.4) mg/dl Phosphorus (2.5-4.5) mg/dL Magnesium (1.6-2.3) mg/dL Total Bilirubin (0.2-1.3) mg/dL AST (17-59) U/L ALT (21-72) U/L Alkaline Phosphatase (38-126) U/L C-React Prot High Sens 2.82 (1.00-3.00) mg/L Total Protein (6.3-8.3) g/dL Albumin (3.5-5.0) g/dL Globulin (2.2-3.9) gm/dL Albumin/Globulin Ratio (1.0-2.1) Complement C3 56.0 L (88.0-165.0) mg/dL Complement C4 9.9 L (14.0-44.0) mg/dL Anti-Staphylolysin O (NEGATIVE) Anti-Streptolysin Titr (NEGATIVE) Blood Type Antibody Screen 09/10/17 09/10/17 09/10/17 Range/Units 06:11 06:11 04:00 WBC 15.5 H (4.8-10.8) K/uL RBC 2.55 L (4.40-5.90) Mil/uL Hgb 7.4 L (12.0-18.0) g/dL Hct 22.2 L (35.0-51.0) % MCV 87.1 (80.0-94.0) fL MCH 28.9 (27.0-31.0) pg MCHC 33.2 (33.0-37.0) g/dL RDW 21.3 H (11.5-14.5) % Plt Count 113 L (130-400) K/uL MPV 7.1 L (7.2-11.7) fL Neut % (Auto) 68.8 (50.0-75.0) % Lymph % (Auto) 15.0 L (20.0-40.0) % [place] % (Auto) 11.9 H (0.0-10.0) % Eos % (Auto) 3.9 (0.0-4.0) % Baso % (Auto) 0.4 (0.0-2.0) % Neut # (Auto) 10.7 H (1.8-7.0) K/uL Lymph # (Auto) 2.3 (1.0-4.3) K/uL [place] # (Auto) 1.8 H (0.0-0.8) K/uL Eos # (Auto) 0.6 (0.0-0.7) K/uL Baso # (Auto) 0.1 (0.0-0.2) K/uL ESR 80 H (0-15) mm/hr Sodium 141 (132-148) mmol/L Potassium 3.8 (3.6-5.2) mmol/L Chloride 108 H (98-107) mmol/L Carbon Dioxide 19 L (22-30) mmol/L Anion Gap 17 (10-20) BUN 11 (9-20) mg/dL Creatinine 1.0 (0.8-1.5) mg/dL Est GFR ( Amer) > 60 Est GFR (Non-Af Amer) > 60 POC Glucose (mg/dL) (65-110) mg/dL Random Glucose 124 H (75-110) mg/dL Calcium 6.6 L (8.6-10.4) mg/dl Phosphorus 2.3 L (2.5-4.5) mg/dL Magnesium 1.6 (1.6-2.3) mg/dL Total Bilirubin 2.7 H (0.2-1.3) mg/dL AST 44 (17-59) U/L ALT 25 (21-72) U/L Alkaline Phosphatase 139 H (38-126) U/L C-React Prot High Sens (1.00-3.00) mg/L Total Protein 6.4 (6.3-8.3) g/dL Albumin 2.2 L (3.5-5.0) g/dL Globulin 4.2 H (2.2-3.9) gm/dL Albumin/Globulin Ratio 0.5 L (1.0-2.1) Complement C3 (88.0-165.0) mg/dL Complement C4 (14.0-44.0) mg/dL Anti-Staphylolysin O Positive H (NEGATIVE) Anti-Streptolysin Titr =>800 iu/ml H (NEGATIVE) Blood Type Antibody Screen 09/09/17 09/09/17 09/08/17 Range/Units 21:18 16:25 11:02 WBC (4.8-10.8) K/uL RBC (4.40-5.90) Mil/uL Hgb (12.0-18.0) g/dL Hct (35.0-51.0) % MCV (80.0-94.0) fL MCH (27.0-31.0) pg MCHC (33.0-37.0) g/dL RDW (11.5-14.5) % Plt Count (130-400) K/uL MPV (7.2-11.7) fL Neut % (Auto) (50.0-75.0) % Lymph % (Auto) (20.0-40.0) % [place] % (Auto) (0.0-10.0) % Eos % (Auto) (0.0-4.0) % Baso % (Auto) (0.0-2.0) % Neut # (Auto) (1.8-7.0) K/uL Lymph # (Auto) (1.0-4.3) K/uL [place] # (Auto) (0.0-0.8) K/uL Eos # (Auto) (0.0-0.7) K/uL Baso # (Auto) (0.0-0.2) K/uL ESR (0-15) mm/hr Sodium (132-148) mmol/L Potassium (3.6-5.2) mmol/L Chloride (98-107) mmol/L Carbon Dioxide (22-30) mmol/L Anion Gap (10-20) BUN (9-20) mg/dL Creatinine (0.8-1.5) mg/dL Est GFR ( Amer) Est GFR (Non-Af Amer) POC Glucose (mg/dL) 158 H 183 H (65-110) mg/dL Random Glucose (75-110) mg/dL Calcium (8.6-10.4) mg/dl Phosphorus (2.5-4.5) mg/dL Magnesium (1.6-2.3) mg/dL Total Bilirubin (0.2-1.3) mg/dL AST (17-59) U/L ALT (21-72) U/L Alkaline Phosphatase (38-126) U/L C-React Prot High Sens (1.00-3.00) mg/L Total Protein (6.3-8.3) g/dL Albumin (3.5-5.0) g/dL Globulin (2.2-3.9) gm/dL Albumin/Globulin Ratio (1.0-2.1) Complement C3 (88.0-165.0) mg/dL Complement C4 (14.0-44.0) mg/dL Anti-Staphylolysin O (NEGATIVE) Anti-Streptolysin Titr (NEGATIVE) Blood Type AB POSITIVE Antibody Screen Negative Laboratory Results - last 24 hr 09/08/17 09/09/17 09/09/17 11:02 16:25 21:18 WBC RBC Hgb Hct MCV MCH MCHC RDW Plt Count MPV Neut % (Auto) Lymph % (Auto) [place] % (Auto) Eos % (Auto) Baso % (Auto) Neut # (Auto) Lymph # (Auto) [place] # (Auto) Eos # (Auto) Baso # (Auto) ESR Sodium Potassium Chloride Carbon Dioxide Anion Gap BUN Creatinine Est GFR ( Amer) Est GFR (Non-Af Amer) POC Glucose (mg/dL) 183 H 158 H Random Glucose Calcium Phosphorus Magnesium Total Bilirubin AST ALT Alkaline Phosphatase C-React Prot High Sens Total Protein Albumin Globulin Albumin/Globulin Ratio Complement C3 Complement C4 Anti-Staphylolysin O Anti-Streptolysin Titr Blood Type AB POSITIVE Antibody Screen Negative 09/10/17 09/10/17 09/10/17 04:00 06:11 06:11 WBC 15.5 H RBC 2.55 L Hgb 7.4 L Hct 22.2 L MCV 87.1 MCH 28.9 MCHC 33.2 RDW 21.3 H Plt Count 113 L MPV 7.1 L Neut % (Auto) 68.8 Lymph % (Auto) 15.0 L [place] % (Auto) 11.9 H Eos % (Auto) 3.9 Baso % (Auto) 0.4 Neut # (Auto) 10.7 H Lymph # (Auto) 2.3 [place] # (Auto) 1.8 H Eos # (Auto) 0.6 Baso # (Auto) 0.1 ESR 80 H Sodium 141 Potassium 3.8 Chloride 108 H Carbon Dioxide 19 L Anion Gap 17 BUN 11 Creatinine 1.0 Est GFR ( Amer) > 60 Est GFR (Non-Af Amer) > 60 POC Glucose (mg/dL) Random Glucose 124 H Calcium 6.6 L Phosphorus 2.3 L Magnesium 1.6 Total Bilirubin 2.7 H AST 44 ALT 25 Alkaline Phosphatase 139 H C-React Prot High Sens Total Protein 6.4 Albumin 2.2 L Globulin 4.2 H Albumin/Globulin Ratio 0.5 L Complement C3 Complement C4 Anti-Staphylolysin O Positive H Anti-Streptolysin Titr =>800 iu/ml H Blood Type Antibody Screen 09/10/17 09/10/17 09/10/17 06:11 07:41 11:30 WBC RBC Hgb Hct MCV MCH MCHC RDW Plt Count MPV Neut % (Auto) Lymph % (Auto) [place] % (Auto) Eos % (Auto) Baso % (Auto) Neut # (Auto) Lymph # (Auto) [place] # (Auto) Eos # (Auto) Baso # (Auto) ESR Sodium Potassium Chloride Carbon Dioxide Anion Gap BUN Creatinine Est GFR ( Amer) Est GFR (Non-Af Amer) POC Glucose (mg/dL) 161 H 224 H Random Glucose Calcium Phosphorus Magnesium Total Bilirubin AST ALT Alkaline Phosphatase C-React Prot High Sens 2.82 Total Protein Albumin Globulin Albumin/Globulin Ratio Complement C3 56.0 L Complement C4 9.9 L Anti-Staphylolysin O Anti-Streptolysin Titr Blood Type Antibody Screen Critical Care Progress Note - Nutrition Nutrition: Nutrition Category Date Time Status Consistent Carbohydrate [DIET] Diets 09/08/17 Breakfast Active Attending/Attestation - Attestation I have fully participated in the care of the patient.: Yes I have reviewed all pertinent clinical information: Yes Notes (Text): 09/10/17 15:31 Today: Sunday, September 10, 2017 The Patient was seen and examined at the bedside, Medical records reviewed, and management issues were discussed and formulated with the house staff. I have reviewed all the relevant clinical, laboratory, hemodynamic, radiographic data and medications Events reviewed Pain issues, skin care, head of the bed elevation, glycemic control were addressed. Agree with above resident's assessment and treatment plans of care as transcribed in Dr. Brittny Hendrix note.
[2017-09-10] MEDS: traZODone 25 mg Tab PO SCH (22:14)
[2017-09-11] MEDS: Piperacill/Tazo 3.375gm in Dex 3.375 GM/50 ML BAG IVPB SCH ×3 (02:19→18:45)
[2017-09-11 06:15] LABS: BASO # 0.1 K/uL (0.0-0.2); BASO % 0.5 % (0.0-2.0); EOS % 7.9 % (0.0-4.0); HEMOGLOBIN 7.4 g/dL (12.0-18.0); LYMPH # 2.4 K/uL (1.0-4.3); MEAN CELL VOLUME 87.2 fL (80.0-94.0); MEAN CORPUSCULAR HEMOGLOBIN 29.4 pg (27.0-31.0); MEAN CORPUSCULAR HGB CONC 33.7 g/dL (33.0-37.0); MONO # 1.5 K/uL (0.0-0.8); MONO % 11.8 % (0.0-10.0); NEUT # 8.1 K/uL (1.8-7.0); NEUT % 61.8 % (50.0-75.0); NRBC % 0.1 % (0.0-2.0); RBC 2.52 Mil/uL (4.40-5.90); RED CELL DISTRIBUTION WIDTH 20.5 % (11.5-14.5); WHITE BLOOD COUNT 13.1 K/uL (4.8-10.8)
[2017-09-11 06:26] LABS: ALB/GLOB RATIO 0.5 (1.0-2.1); ALBUMIN 1.9 g/dL (3.5-5.0); ALT/SGPT 31 U/L (21-72); AST/SGOT 48 U/L (17-59); BLOOD UREA NITROGEN 11 mg/dL (9-20); CALCIUM 6.9 mg/dl (8.6-10.4); GFR AFRICAN-AMERICAN > 60; GFR NON-AFRICAN AMERICAN > 60
[2017-09-11] MEDS: (Novolin R) Insulin Human Regular 100 units/ml vial SC SCH ×4 (08:00→22:28)
--- NOTE | 2017-09-11 09:02 | CP.PCM.PN ---
Subjective - Date & Time of Evaluation Date of Evaluation: 09/11/17 Time of Evaluation: 09:01 - Subjective Subjective: Patient is feeling comfortable. 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 Hemoglobin was low, received blood transfusion yesterday. No chest pain or shortness of breath. Skin lesions still noted Vital signs otherwise stable. Chest good air entry bilaterally regular heart sound. Nontender abdomen. Pedal edema noted. Severe excoriation of the skin, and also peeling of the skin noted in the palmar in the plantar aspects Assessment and recommendation: 41-year-old male with history of liver disease, psoriatic skin lesions admitted with acute sepsis. On antibiotic. Significant skin changes noted. Will continue to monitor. Will follow the patient Objective - Vital Signs/Intake and Output Vital Signs (last 24 hours): Temp Pulse Resp BP Pulse Ox 98.2 F 101 H 23 109/70 95 09/11/17 04:00 09/11/17 06:07 09/11/17 06:07 09/11/17 06:07 09/11/17 06:07 Intake and Output: 09/11/17 09/11/17 06:59 18:59 Intake Total 750 Output Total 600 Balance 150 - Medications Medications: Current Medications Albuterol (Ventolin Hfa 90 Mcg/Actuation (8 G)) 1 puff INH RQ6 PRN PRN Reason: Wheezing Albuterol Sulfate (Albuterol 0.042% Inhal Marlene (1.25mg/3ml) Ud) 1.25 mg INH RQ4 PRN PRN Reason: Shortness of Breath Last Admin: 09/10/17 07:58 Dose: 1.25 mg Escitalopram Oxalate (Lexapro) 10 mg PO DAILY [facility] Last Admin: 09/10/17 09:22 Dose: 10 mg Gabapentin (Neurontin) 100 mg PO TID [facility] Last Admin: 09/10/17 17:28 Dose: 100 mg Piperacillin Sod/Tazobactam Sod (Zosyn 3.375 Gm Iv Premix) 3.375 gm in 50 mls @ 100 mls/hr IVPB Q8H [facility] PRN Reason: Protocol Last Admin: 09/11/17 02:19 Dose: 100 mls/hr Insulin Human Regular (Novolin R) 0 unit SC ACHS [facility] PRN Reason: Protocol Last Admin: 09/10/17 22:15 Dose: Not Given Lactic Acid (Lac-Hydrin 12% Lotion (225 G)) 0 gm EXT BID [facility] Last Admin: 09/10/17 17:27 Dose: 1 applic Lactulose (Enulose) 20 gm PO HS [facility] Last Admin: 09/10/17 22:18 Dose: Not Given Metoprolol Tartrate (Lopressor) 25 mg PO BID [facility] Last Admin: 09/10/17 17:28 Dose: 25 mg Multivitamins (Hexavitamin) 1 tab PO DAILY [facility] Last Admin: 09/10/17 11:53 Dose: 1 tab Pantoprazole Sodium (Protonix Ec Tab) 40 mg PO DAILY [facility] Last Admin: 09/10/17 09:23 Dose: 40 mg Trazodone HCl (Desyrel) 25 mg PO HS [facility] Last Admin: 09/10/17 22:14 Dose: 25 mg - Labs Labs: 09/11/17 06:07 09/11/17 06:07 PT 28.9 SECONDS (9.7-12.2) H 09/08/17 07:24 INR 2.4 09/08/17 07:24 APTT 44 SECONDS (21-34) H 09/08/17 07:24
[2017-09-11] MEDS ORDERED: MethylPREDNISolone 40 mg Vial IVP SCH (10:00)
[2017-09-11] MEDS: Multiple Vitamins Tab PO SCH (10:42)
[2017-09-11] MEDS: MethylPREDNISolone 40 mg Vial IVP SCH ×2 (10:43→22:06)
[2017-09-11] MEDS: Pantoprazole 40 mg EC Tab PO SCH (10:43)
[2017-09-11] MEDS: Ammonium Lactate 12% Lotion (225 g) EXT SCH ×2 (10:47→22:56)
[2017-09-11] MEDS: traZODone 25 mg Tab PO SCH (22:54)
[2017-09-12] MEDS: Piperacill/Tazo 3.375gm in Dex 3.375 GM/50 ML BAG IVPB SCH ×3 (02:07→17:58)
[2017-09-12] MEDS: (Novolin R) Insulin Human Regular 100 units/ml vial SC SCH ×4 (07:30→21:43)
[2017-09-12] MEDS: Pantoprazole 40 mg EC Tab PO SCH (09:11)
[2017-09-12] MEDS: Multiple Vitamins Tab PO SCH (09:11)
[2017-09-12] MEDS: MethylPREDNISolone 40 mg Vial IVP SCH ×2 (09:11→21:43)
[2017-09-12] MEDS: Ammonium Lactate 12% Lotion (225 g) EXT SCH ×2 (09:17→17:57)
--- NOTE | 2017-09-12 17:49 | CP.PCM.PN ---
Subjective - Date & Time of Evaluation Date of Evaluation: 09/12/17 Time of Evaluation: 20:56 - Subjective Subjective: pt is feeling well no chest pain no diarrhea no wheezing vitals stable skin some improvement noted edema noted pt with sepsis psoariasis liver cirrhosis will f/u Objective - Vital Signs/Intake and Output Vital Signs (last 24 hours): Temp Pulse Resp BP Pulse Ox 98.5 F 101 H 20 138/79 100 09/12/17 08:31 09/12/17 08:31 09/12/17 08:31 09/12/17 09:11 09/12/17 08:31 - Medications Medications: Current Medications Albuterol (Ventolin Hfa 90 Mcg/Actuation (8 G)) 1 puff INH RQ6 PRN PRN Reason: Wheezing Albuterol Sulfate (Albuterol 0.042% Inhal Marlene (1.25mg/3ml) Ud) 1.25 mg INH RQ4 PRN PRN Reason: Shortness of Breath Last Admin: 09/10/17 07:58 Dose: 1.25 mg Escitalopram Oxalate (Lexapro) 10 mg PO DAILY [facility] Last Admin: 09/12/17 09:11 Dose: 10 mg Gabapentin (Neurontin) 100 mg PO TID [facility] Last Admin: 09/12/17 13:29 Dose: 100 mg Piperacillin Sod/Tazobactam Sod (Zosyn 3.375 Gm Iv Premix) 3.375 gm in 50 mls @ 100 mls/hr IVPB Q8H [facility] PRN Reason: Protocol Last Admin: 09/12/17 09:05 Dose: 100 mls/hr Insulin Human Regular (Novolin R) 0 unit SC ACHS [facility] PRN Reason: Protocol Last Admin: 09/12/17 11:30 Dose: 3 unit Lactic Acid (Lac-Hydrin 12% Lotion (225 G)) 0 gm EXT BID [facility] Last Admin: 09/12/17 09:17 Dose: 1 applic Lactulose (Enulose) 20 gm PO HS [facility] Last Admin: 09/11/17 22:06 Dose: 20 gm Methylprednisolone (Solu-Medrol) 40 mg IVP Q12 [facility] Last Admin: 09/12/17 09:11 Dose: 40 mg Metoprolol Tartrate (Lopressor) 25 mg PO BID [facility] Last Admin: 09/12/17 09:11 Dose: 25 mg Multivitamins (Hexavitamin) 1 tab PO DAILY [facility] Last Admin: 09/12/17 09:11 Dose: 1 tab Pantoprazole Sodium (Protonix Ec Tab) 40 mg PO DAILY [facility] Last Admin: 09/12/17 09:11 Dose: 40 mg Trazodone HCl (Desyrel) 25 mg PO HS [facility] Last Admin: 09/11/17 22:54 Dose: 25 mg - Labs Labs: 09/11/17 06:07 09/11/17 06:07 PT 28.9 SECONDS (9.7-12.2) H 09/08/17 07:24 INR 2.4 09/08/17 07:24 APTT 44 SECONDS (21-34) H 09/08/17 07:24
[2017-09-12] MEDS: traZODone 25 mg Tab PO SCH (21:41)
[2017-09-13] MEDS: Piperacill/Tazo 3.375gm in Dex 3.375 GM/50 ML BAG IVPB SCH ×3 (02:10→17:23)
[2017-09-13] MEDS: Albuterol 0.042% Inhal Sol (1.25 mg/3 mL) UD INH PRN (07:10)
[2017-09-13 07:27] LABS: BASO % 0.1 % (0.0-2.0); LYMPH # 1.8 K/uL (1.0-4.3); MEAN CORPUSCULAR HEMOGLOBIN 29.7 pg (27.0-31.0); MEAN CORPUSCULAR HGB CONC 33.4 g/dL (33.0-37.0); MEAN PLATELET VOLUME 7.6 fL (7.2-11.7); MONO # 1.3 K/uL (0.0-0.8); MONO % 8.4 % (0.0-10.0); NEUT # 11.8 K/uL (1.8-7.0); NEUT % 79.5 % (50.0-75.0); RBC 2.34 Mil/uL (4.40-5.90); RED CELL DISTRIBUTION WIDTH 22.4 % (11.5-14.5); WHITE BLOOD COUNT 14.9 K/uL (4.8-10.8)
[2017-09-13 07:42] LABS: INR 1.7; PROTHROMBIN TIME 19.8 SECONDS (9.7-12.2)
[2017-09-13 08:00] LABS: ALB/GLOB RATIO 0.6 (1.0-2.1); ALBUMIN 2.1 g/dL (3.5-5.0); ALT/SGPT 24 U/L (21-72); AST/SGOT 35 U/L (17-59); BLOOD UREA NITROGEN 19 mg/dL (9-20); CALCIUM 7.5 mg/dl (8.6-10.4); GFR AFRICAN-AMERICAN > 60; GFR NON-AFRICAN AMERICAN 52
[2017-09-13] MEDS: (Novolin R) Insulin Human Regular 100 units/ml vial SC SCH ×4 (08:54→21:16)
[2017-09-13] MEDS: Multiple Vitamins Tab PO SCH (10:17)
[2017-09-13] MEDS: Pantoprazole 40 mg EC Tab PO SCH (10:17)
[2017-09-13] MEDS: MethylPREDNISolone 40 mg Vial IVP SCH ×2 (10:18→21:15)
[2017-09-13] MEDS: Ammonium Lactate 12% Lotion (225 g) EXT SCH ×2 (10:21→17:21)
[2017-09-13 13:33] LABS: BASO % 0.1 % (0.0-2.0); EOS % 0.1 % (0.0-4.0); LYMPH # 1.6 K/uL (1.0-4.3); LYMPH % 11.8 % (20.0-40.0); MEAN CELL VOLUME 89.5 fL (80.0-94.0); MEAN CORPUSCULAR HEMOGLOBIN 29.3 pg (27.0-31.0); MEAN CORPUSCULAR HGB CONC 32.8 g/dL (33.0-37.0); MEAN PLATELET VOLUME 7.4 fL (7.2-11.7); MONO # 1.1 K/uL (0.0-0.8); MONO % 8.1 % (0.0-10.0); NEUT # 10.6 K/uL (1.8-7.0); NEUT % 79.9 % (50.0-75.0); RBC 2.39 Mil/uL (4.40-5.90); RED CELL DISTRIBUTION WIDTH 21.9 % (11.5-14.5); WHITE BLOOD COUNT 13.3 K/uL (4.8-10.8)
[2017-09-13] MEDS: traZODone 25 mg Tab PO SCH (21:15)
[2017-09-14] MEDS: Piperacill/Tazo 3.375gm in Dex 3.375 GM/50 ML BAG IVPB SCH ×3 (02:00→18:49)
[2017-09-14] MEDS: Albuterol 0.042% Inhal Sol (1.25 mg/3 mL) UD INH PRN (07:10)
[2017-09-14] MEDS: (Novolin R) Insulin Human Regular 100 units/ml vial SC SCH ×4 (07:30→21:44)
--- NOTE | 2017-09-14 08:10 | CP.PCM.PN ---
Subjective - Date & Time of Evaluation Date of Evaluation: 09/13/17 Time of Evaluation: 17:00 - Subjective Subjective: Feeling better The swelling in the legs better Eating better On antibiotic Continue to monitor Glucose monitoring 41-year-old male chronic liver disease Psoriatic skin disease, hypertension, diabetes, renal failure, varicose veins Admitted with a sepsis On antibiotic Objective - Vital Signs/Intake and Output Vital Signs (last 24 hours): Temp Pulse Resp BP Pulse Ox 98.3 F 95 H 20 155/75 H 99 09/14/17 06:00 09/14/17 00:00 09/14/17 00:00 09/14/17 00:00 09/14/17 00:00 Intake and Output: 09/14/17 09/14/17 06:59 18:59 Intake Total 350 Balance 350 - Medications Medications: Current Medications Albuterol (Ventolin Hfa 90 Mcg/Actuation (8 G)) 1 puff INH RQ6 PRN PRN Reason: Wheezing Albuterol Sulfate (Albuterol 0.042% Inhal Marlene (1.25mg/3ml) Ud) 1.25 mg INH RQ4 PRN PRN Reason: Shortness of Breath Last Admin: 09/13/17 07:10 Dose: 1.25 mg Escitalopram Oxalate (Lexapro) 10 mg PO DAILY [facility] Last Admin: 09/13/17 10:17 Dose: 10 mg Gabapentin (Neurontin) 100 mg PO TID [facility] Last Admin: 09/13/17 17:22 Dose: 100 mg Piperacillin Sod/Tazobactam Sod (Zosyn 3.375 Gm Iv Premix) 3.375 gm in 50 mls @ 100 mls/hr IVPB Q8H [facility] PRN Reason: Protocol Last Admin: 09/14/17 02:00 Dose: 100 mls/hr Insulin Human Regular (Novolin R) 0 unit SC ACHS [facility] PRN Reason: Protocol Last Admin: 09/13/17 21:16 Dose: 3 unit Lactic Acid (Lac-Hydrin 12% Lotion (225 G)) 0 gm EXT BID [facility] Last Admin: 09/13/17 17:21 Dose: 1 applic Lactulose (Enulose) 20 gm PO HS [facility] Last Admin: 09/13/17 21:28 Dose: Not Given Methylprednisolone (Solu-Medrol) 20 mg IVP Q12 [facility] Stop: 09/13/17 10:01 Metoprolol Tartrate (Lopressor) 25 mg PO BID [facility] Last Admin: 09/13/17 17:22 Dose: 25 mg Multivitamins (Hexavitamin) 1 tab PO DAILY [facility] Last Admin: 09/13/17 10:17 Dose: 1 tab Pantoprazole Sodium (Protonix Ec Tab) 40 mg PO DAILY [facility] Last Admin: 09/13/17 10:17 Dose: 40 mg Trazodone HCl (Desyrel) 25 mg PO HS [facility] Last Admin: 09/13/17 21:15 Dose: 25 mg - Labs Labs: 09/13/17 13:26 09/13/17 07:18 PT 19.8 SECONDS (9.7-12.2) H 09/13/17 07:18 INR 1.7 09/13/17 07:18 APTT 35 SECONDS (21-34) H 09/13/17 07:18
--- NOTE | 2017-09-14 08:10 | CP.PCM.PN ---
Subjective - Date & Time of Evaluation Date of Evaluation: 09/14/17 Time of Evaluation: 17:00 - Subjective Subjective: Extremely feeling better No chest pain Eating better Skin lesions are healing Continue to monitor on IV antibiotic and also steroid Objective - Vital Signs/Intake and Output Vital Signs (last 24 hours): Temp Pulse Resp BP Pulse Ox 98.3 F 95 H 20 155/75 H 99 09/14/17 06:00 09/14/17 00:00 09/14/17 00:00 09/14/17 00:00 09/14/17 00:00 Intake and Output: 09/14/17 09/14/17 06:59 18:59 Intake Total 350 Balance 350 - Medications Medications: Current Medications Albuterol (Ventolin Hfa 90 Mcg/Actuation (8 G)) 1 puff INH RQ6 PRN PRN Reason: Wheezing Albuterol Sulfate (Albuterol 0.042% Inhal Marlene (1.25mg/3ml) Ud) 1.25 mg INH RQ4 PRN PRN Reason: Shortness of Breath Last Admin: 09/13/17 07:10 Dose: 1.25 mg Escitalopram Oxalate (Lexapro) 10 mg PO DAILY [facility] Last Admin: 09/13/17 10:17 Dose: 10 mg Gabapentin (Neurontin) 100 mg PO TID [facility] Last Admin: 09/13/17 17:22 Dose: 100 mg Piperacillin Sod/Tazobactam Sod (Zosyn 3.375 Gm Iv Premix) 3.375 gm in 50 mls @ 100 mls/hr IVPB Q8H [facility] PRN Reason: Protocol Last Admin: 09/14/17 02:00 Dose: 100 mls/hr Insulin Human Regular (Novolin R) 0 unit SC ACHS [facility] PRN Reason: Protocol Last Admin: 09/13/17 21:16 Dose: 3 unit Lactic Acid (Lac-Hydrin 12% Lotion (225 G)) 0 gm EXT BID [facility] Last Admin: 09/13/17 17:21 Dose: 1 applic Lactulose (Enulose) 20 gm PO HS [facility] Last Admin: 09/13/17 21:28 Dose: Not Given Methylprednisolone (Solu-Medrol) 20 mg IVP Q12 [facility] Stop: 09/13/17 10:01 Metoprolol Tartrate (Lopressor) 25 mg PO BID [facility] Last Admin: 09/13/17 17:22 Dose: 25 mg Multivitamins (Hexavitamin) 1 tab PO DAILY [facility] Last Admin: 09/13/17 10:17 Dose: 1 tab Pantoprazole Sodium (Protonix Ec Tab) 40 mg PO DAILY [facility] Last Admin: 09/13/17 10:17 Dose: 40 mg Trazodone HCl (Desyrel) 25 mg PO HS [facility] Last Admin: 09/13/17 21:15 Dose: 25 mg - Labs Labs: 09/13/17 13:26 09/13/17 07:18 PT 19.8 SECONDS (9.7-12.2) H 09/13/17 07:18 INR 1.7 09/13/17 07:18 APTT 35 SECONDS (21-34) H 09/13/17 07:18
[2017-09-14] MEDS: Multiple Vitamins Tab PO SCH (09:02)
[2017-09-14] MEDS: Pantoprazole 40 mg EC Tab PO SCH (09:02)
[2017-09-14] MEDS: Ammonium Lactate 12% Lotion (225 g) EXT SCH ×2 (09:04→18:48)
[2017-09-14] MEDS: traZODone 25 mg Tab PO SCH (21:44)
[2017-09-15] MEDS: Piperacill/Tazo 3.375gm in Dex 3.375 GM/50 ML BAG IVPB SCH ×3 (00:59→17:44)
[2017-09-15 07:33] LABS: BASO % 0.3 % (0.0-2.0); EOS # 0.6 K/uL (0.0-0.7); EOS % 4.3 % (0.0-4.0); HEMOGLOBIN 6.6 g/dL (12.0-18.0); LYMPH # 2.1 K/uL (1.0-4.3); LYMPH % 14.8 % (20.0-40.0); MEAN CELL VOLUME 88.5 fL (80.0-94.0); MEAN CORPUSCULAR HEMOGLOBIN 29.2 pg (27.0-31.0); MEAN PLATELET VOLUME 7.3 fL (7.2-11.7); MONO # 2.4 K/uL (0.0-0.8); MONO % 17.1 % (0.0-10.0); NEUT # 8.9 K/uL (1.8-7.0); NEUT % 63.5 % (50.0-75.0); NRBC % 0.1 % (0.0-2.0); RBC 2.28 Mil/uL (4.40-5.90); RED CELL DISTRIBUTION WIDTH 21.2 % (11.5-14.5)
[2017-09-15 07:55] LABS: ALB/GLOB RATIO 0.5 (1.0-2.1); ALBUMIN 2.2 g/dL (3.5-5.0); ALT/SGPT 42 U/L (21-72); AST/SGOT 46 U/L (17-59); BLOOD UREA NITROGEN 18 mg/dL (9-20); CALCIUM 8.1 mg/dl (8.6-10.4); GFR AFRICAN-AMERICAN > 60; GFR NON-AFRICAN AMERICAN 56
[2017-09-15] MEDS: (Novolin R) Insulin Human Regular 100 units/ml vial SC SCH ×4 (08:06→21:39)
[2017-09-15] MEDS: Multiple Vitamins Tab PO SCH (09:32)
[2017-09-15] MEDS: Ammonium Lactate 12% Lotion (225 g) EXT SCH ×2 (09:33→17:48)
[2017-09-15] MEDS ORDERED: Iohexol 240 (50 ml) PO ONE (09:45)
--- NOTE | 2017-09-15 13:15 | CT ---
PROCEDURE: CT Abdomen and Pelvis without contrast HISTORY: vomiting. History of cirrhosis and splenomegaly. COMPARISON: CT abdomen 06/23/[address] abdomen pelvis 10/29/2015 TECHNIQUE: CT scan of the abdomen and pelvis was performed without IV contrast. The absence of intravenous contrast limits evaluation of solid organs including the kidneys as well as blood vessels and vascular structures. Coronal and sagittal reconstructions were also acquired. Radiation dose: Total exam DLP = 1153 mGy-cm. FINDINGS: LOWER THORAX: Mild posterior dependent right basilar atelectasis. Increased density of the interventricular septum, suggestive of anemia.. LIVER: Nodular contour, compatible with cirrhosis. Liver size is decreased compared to prior exam. GALLBLADDER AND BILE DUCTS: Contracted and contains small stones. PANCREAS: Unremarkable unenhanced appearance. SPLEEN: Unremarkable unenhanced appearance. ADRENALS: Unremarkable unenhanced appearance. KIDNEYS AND URETERS: Right kidney: Unremarkable unenhanced appearance. There is no nephrolithiasis or hydronephrosis. Left kidney: Unremarkable unenhanced appearance. There is no nephrolithiasis or hydronephrosis. BLADDER: Is incompletely distended. Urinary bladder is incompletely distended with wall thickening which may be secondary to the underdistention. Cystitis could be considered in the appropriate clinical setting. REPRODUCTIVE: Prostatic calcifications noted. APPENDIX: Not identified. STOMACH AND BOWEL: There is no abnormal small of large bowel dilatation. Mild wall thickening of distal small bowel loops and Wall thickening of the ascending colon, likely reactive to the ascites. PERITONEUM: Small volume ascites with greater amount of fluid primarily in the pelvis. LYMPH NODES: No significant abdominal or pelvic lymphadenopathy. VASCULATURE: Aorta is normal in caliber. Recannulized umbilical vein noted. BONES: No acute fracture identified. There are bone islands in the left femoral head. OTHER FINDINGS: Diffuse anasarca. IMPRESSION: Cirrhotic liver. Overall liver size is decreased compared to prior CT abdomen 06/23/2016. Small volume ascites with more moderate amount of fluid in the pelvis. Mild wall thickening of distal small bowel loops and proximal colon, likely reactive to the ascites. Underdistention of the urinary bladder with wall thickening, likely due to the underdistention. Cystitis could be considered in the appropriate clinical setting. Cholelithiasis Additional findings as above.
--- NOTE | 2017-09-16 00:49 | CP.PCM.PN ---
Subjective - Date & Time of Evaluation Date of Evaluation: 09/15/17 Time of Evaluation: 14:00 - Subjective Subjective: Patient had this morning at least 3 episodes of vomiting. Patient was some vomiting brownish discoloration No blood in the vomiting noted. No rectal bleeding No fever Abdominal pain noted, fever negative Clinically otherwise stable. Unable to eat well Chest good air entry bilaterally irregular heart sound nontender abdomen edema bilaterally noted skin changes is improving 41-year-old male with history of diabetes hypertension chronic liver disease aureus is admitted with the worsening psoriatic skin lesion associated with worsening infection. Better now, on IV antibiotic Objective - Vital Signs/Intake and Output Vital Signs (last 24 hours): Temp Pulse Resp BP Pulse Ox 98.6 F 91 H 20 156/84 H 100 09/15/17 23:54 09/15/17 23:54 09/15/17 23:54 09/15/17 23:54 09/15/17 23:54 Intake and Output: 09/15/17 09/16/17 18:59 06:59 Intake Total 556 Balance 556 - Medications Medications: Current Medications Albuterol (Ventolin Hfa 90 Mcg/Actuation (8 G)) 1 puff INH RQ6 PRN PRN Reason: Wheezing Albuterol Sulfate (Albuterol 0.042% Inhal Marlene (1.25mg/3ml) Ud) 1.25 mg INH RQ4 PRN PRN Reason: Shortness of Breath Last Admin: 09/14/17 07:10 Dose: 1.25 mg Piperacillin Sod/Tazobactam Sod (Zosyn 3.375 Gm Iv Premix) 3.375 gm in 50 mls @ 100 mls/hr IVPB Q8H [facility] PRN Reason: Protocol Last Admin: 09/15/17 17:44 Dose: 100 mls/hr Insulin Human Regular (Novolin R) 0 unit SC ACHS [facility] PRN Reason: Protocol Last Admin: 09/15/17 21:39 Dose: Not Given Lactic Acid (Lac-Hydrin 12% Lotion (225 G)) 0 gm EXT BID [facility] Last Admin: 09/15/17 17:48 Dose: 1 applic Lactulose (Enulose) 20 gm PO HS [facility] Last Admin: 09/15/17 21:39 Dose: Not Given Metoprolol Tartrate (Lopressor) 25 mg PO BID [facility] Last Admin: 09/15/17 17:44 Dose: 25 mg Multivitamins (Hexavitamin) 1 tab PO DAILY [facility] Last Admin: 09/15/17 09:32 Dose: 1 tab Pantoprazole Sodium (Protonix Inj) 40 mg IVP Q12 [facility] Last Admin: 09/15/17 21:35 Dose: 40 mg - Labs Labs: 09/15/17 07:20 09/15/17 07:20 PT 19.8 SECONDS (9.7-12.2) H 09/13/17 07:18 INR 1.7 09/13/17 07:18 APTT 35 SECONDS (21-34) H 09/13/17 07:18
[2017-09-16] MEDS: Piperacill/Tazo 3.375gm in Dex 3.375 GM/50 ML BAG IVPB SCH ×3 (02:00→20:47)
[2017-09-16 06:51] LABS: BASO % 0.1 % (0.0-2.0); EOS # 0.1 K/uL (0.0-0.7); EOS % 0.9 % (0.0-4.0); LYMPH # 1.8 K/uL (1.0-4.3); LYMPH % 13.5 % (20.0-40.0); MEAN CELL VOLUME 88.8 fL (80.0-94.0); MEAN CORPUSCULAR HEMOGLOBIN 28.9 pg (27.0-31.0); MEAN CORPUSCULAR HGB CONC 32.5 g/dL (33.0-37.0); MEAN PLATELET VOLUME 7.7 fL (7.2-11.7); MONO # 1.7 K/uL (0.0-0.8); MONO % 12.7 % (0.0-10.0); NEUT # 9.6 K/uL (1.8-7.0); NEUT % 72.8 % (50.0-75.0); NRBC % 0.2 % (0.0-2.0); RBC 2.21 Mil/uL (4.40-5.90); RED CELL DISTRIBUTION WIDTH 20.4 % (11.5-14.5); WHITE BLOOD COUNT 13.2 K/uL (4.8-10.8)
[2017-09-16 06:59] LABS: HEMOGLOBIN 6.4 g/dL (12.0-18.0)
[2017-09-16 07:12] LABS: ALB/GLOB RATIO 0.6 (1.0-2.1); ALT/SGPT 35 U/L (21-72); AST/SGOT 44 U/L (17-59); BLOOD UREA NITROGEN 17 mg/dL (9-20); CALCIUM 7.8 mg/dl (8.6-10.4); GFR AFRICAN-AMERICAN > 60; GFR NON-AFRICAN AMERICAN 56
[2017-09-16] MEDS: (Novolin R) Insulin Human Regular 100 units/ml vial SC SCH ×4 (08:30→22:01)
[2017-09-16] MEDS: Multiple Vitamins Tab PO SCH (10:13)
[2017-09-16] MEDS: Ammonium Lactate 12% Lotion (225 g) EXT SCH ×2 (10:14→21:52)
[2017-09-16 11:18] LABS: MEAN CORPUSCULAR HEMOGLOBIN 28.8 pg (27.0-31.0); MEAN CORPUSCULAR HGB CONC 32.8 g/dL (33.0-37.0); MEAN PLATELET VOLUME 7.7 fL (7.2-11.7); RBC 2.13 Mil/uL (4.40-5.90); RED CELL DISTRIBUTION WIDTH 20.3 % (11.5-14.5); WHITE BLOOD COUNT 12.6 K/uL (4.8-10.8)
[2017-09-16 11:22] LABS: HEMOGLOBIN 6.2 g/dL (12.0-18.0)
--- NOTE | 2017-09-16 15:12 | PCM.SURG1 ---
Surgeon's Initial Post Op Note - Surgeon's Notes Surgeon: Ricci Wells MD [employer] Clerk: NONE Type of Anesthesia: Local Pre-Operative Diagnosis: Sepsis Operative Findings: US showed patent left basilic vein. Post-Operative Diagnosis: Sepsis Operation Performed: Single lumen picc left basilic vein,39 cm. Tip in SVC. Specimen/Specimens Removed: NONE Estimated Blood Loss: EBL {In ML}: 2 Blood Products Given: N/A Drains Used: No Drains Post-Op Condition: Fair Date of Surgery/Procedure: 09/16/17 Time of Surgery/Procedure: 15:10
--- NOTE | 2017-09-16 23:11 | CP.PCM.PN ---
Subjective - Date & Time of Evaluation Date of Evaluation: 09/16/17 Time of Evaluation: 21:40 - Subjective Subjective: still has low HB no pain ct abd noted continue current treatment Objective - Vital Signs/Intake and Output Vital Signs (last 24 hours): Temp Pulse Resp BP Pulse Ox 98.5 F 83 20 132/84 100 09/16/17 20:16 09/16/17 20:16 09/16/17 20:16 09/16/17 20:16 09/16/17 16:00 Intake and Output: 09/16/17 09/17/17 18:59 06:59 Intake Total 530 325 Balance 530 325 - Medications Medications: Current Medications Albuterol Sulfate (Albuterol 0.042% Inhal Marlene (1.25mg/3ml) Ud) 1.25 mg INH RQ4 PRN PRN Reason: Shortness of Breath Last Admin: 09/14/17 07:10 Dose: 1.25 mg Piperacillin Sod/Tazobactam Sod (Zosyn 3.375 Gm Iv Premix) 3.375 gm in 50 mls @ 100 mls/hr IVPB Q8H [facility] PRN Reason: Protocol Last Admin: 09/16/17 20:47 Dose: 100 mls/hr Insulin Human Regular (Novolin R) 0 unit SC ACHS [facility] PRN Reason: Protocol Last Admin: 09/16/17 22:01 Dose: 2 unit Lactic Acid (Lac-Hydrin 12% Lotion (225 G)) 0 gm EXT BID [facility] Last Admin: 09/16/17 21:52 Dose: 1 applic Lactulose (Enulose) 20 gm PO HS [facility] Last Admin: 09/16/17 21:49 Dose: Not Given Metoprolol Tartrate (Lopressor) 25 mg PO BID [facility] Last Admin: 09/16/17 18:00 Dose: 25 mg Multivitamins (Hexavitamin) 1 tab PO DAILY [facility] Last Admin: 09/16/17 10:13 Dose: 1 tab Pantoprazole Sodium (Protonix Inj) 40 mg IVP Q12 [facility] Last Admin: 09/16/17 21:50 Dose: 40 mg Rifaximin (Xifaxan) 550 mg PO BID [facility] PRN Reason: Protocol Last Admin: 09/16/17 21:48 Dose: 550 mg Spironolactone (Aldactone) 25 mg PO BID [facility] Last Admin: 09/16/17 21:47 Dose: 25 mg - Labs Labs: 09/16/17 11:10 09/16/17 06:41 PT 19.8 SECONDS (9.7-12.2) H 09/13/17 07:18 INR 1.7 09/13/17 07:18 APTT 35 SECONDS (21-34) H 09/13/17 07:18
[2017-09-17] MEDS: Piperacill/Tazo 3.375gm in Dex 3.375 GM/50 ML BAG IVPB SCH ×3 (02:01→18:00)
[2017-09-17 07:34] LABS: BASO % 0.2 % (0.0-2.0); EOS # 0.2 K/uL (0.0-0.7); EOS % 1.8 % (0.0-4.0); LYMPH # 2.2 K/uL (1.0-4.3); LYMPH % 17.6 % (20.0-40.0); MEAN CELL VOLUME 87.9 fL (80.0-94.0); MEAN CORPUSCULAR HEMOGLOBIN 29.7 pg (27.0-31.0); MEAN CORPUSCULAR HGB CONC 33.8 g/dL (33.0-37.0); MEAN PLATELET VOLUME 7.9 fL (7.2-11.7); MONO # 1.9 K/uL (0.0-0.8); MONO % 15.1 % (0.0-10.0); NEUT # 8.2 K/uL (1.8-7.0); NEUT % 65.3 % (50.0-75.0); NRBC % 0.2 % (0.0-2.0); RBC 2.12 Mil/uL (4.40-5.90); RED CELL DISTRIBUTION WIDTH 18.9 % (11.5-14.5); WHITE BLOOD COUNT 12.6 K/uL (4.8-10.8)
[2017-09-17 07:39] LABS: HEMOGLOBIN 6.3 g/dL (12.0-18.0)
[2017-09-17 07:46] LABS: ALB/GLOB RATIO 0.5 (1.0-2.1); ALBUMIN 1.9 g/dL (3.5-5.0); CALCIUM 7.6 mg/dl (8.6-10.4); INR 1.6
[2017-09-17] MEDS: (Novolin R) Insulin Human Regular 100 units/ml vial SC SCH ×4 (08:50→21:23)
--- NOTE | 2017-09-17 09:57 | RAD ---
PROCEDURE: Fluoroscopy up to 1 hr. HISTORY: IV ACCESS COMPARISON: None TECHNIQUE: Total fluoroscopic time (continuous mode) utilized during the procedure 5.2 seconds. FINDINGS: Submitted images from the current procedure: 3.0 IMPRESSION: Less than 1 hr fluoroscopic time utilized during performance of the procedure.
[2017-09-17] MEDS: Multiple Vitamins Tab PO SCH (10:01)
--- NOTE | 2017-09-17 11:53 | CP.PCM.PN ---
<Tom Martines - Last Filed: 09/17/17 11:50> Subjective - Date & Time of Evaluation Date of Evaluation: 09/17/17 Time of Evaluation: 11:30 - Subjective Subjective: PGY5 GI Fellow Progress Note Reconsulted on this patient due to worsening anemia noted on daily CBC. Patient seen and examined bedside this morning. The patient states he is feeling well and has no complaints. Specifically, he denies any sort of rectal bleeding, melena, nausea, vomiting, hematemesis. He notes that PICC line was placed yesterday and there was some bleeding associated with this procedure. Denies any events overnight. Tolerating diet without issue. 12 system ROS performed and negative except where stated. Objective - Vital Signs/Intake and Output Vital Signs (last 24 hours): Temp Pulse Resp BP Pulse Ox 98.6 F 99 H 20 141/80 100 09/17/17 07:00 09/17/17 07:00 09/17/17 07:00 09/17/17 10:01 09/17/17 07:00 Intake and Output: 09/17/17 09/17/17 06:59 18:59 Intake Total 625 Balance 625 - Medications Medications: Current Medications Albuterol Sulfate (Albuterol 0.042% Inhal Marlene (1.25mg/3ml) Ud) 1.25 mg INH RQ4 PRN PRN Reason: Shortness of Breath Last Admin: 09/14/17 07:10 Dose: 1.25 mg Piperacillin Sod/Tazobactam Sod (Zosyn 3.375 Gm Iv Premix) 3.375 gm in 50 mls @ 100 mls/hr IVPB Q8H [facility] PRN Reason: Protocol Last Admin: 09/17/17 10:07 Dose: 100 mls/hr Insulin Human Regular (Novolin R) 0 unit SC ACHS [facility] PRN Reason: Protocol Last Admin: 09/17/17 08:50 Dose: 4 unit Lactic Acid (Lac-Hydrin 12% Lotion (225 G)) 0 gm EXT BID [facility] Last Admin: 09/16/17 21:52 Dose: 1 applic Lactulose (Enulose) 20 gm PO HS [facility] Last Admin: 09/16/17 21:49 Dose: Not Given Metoprolol Tartrate (Lopressor) 25 mg PO BID [facility] Last Admin: 09/17/17 10:01 Dose: 25 mg Multivitamins (Hexavitamin) 1 tab PO DAILY [facility] Last Admin: 09/17/17 10:01 Dose: 1 tab Pantoprazole Sodium (Protonix Inj) 40 mg IVP Q12 [facility] Last Admin: 09/17/17 10:07 Dose: 40 mg Rifaximin (Xifaxan) 550 mg PO BID [facility] PRN Reason: Protocol Last Admin: 09/17/17 10:07 Dose: 550 mg Spironolactone (Aldactone) 25 mg PO BID [facility] Last Admin: 09/17/17 10:01 Dose: 25 mg Trazodone HCl (Desyrel) 25 mg PO HS [facility] - Labs Labs: 09/17/17 07:18 09/17/17 07:18 PT 18.0 SECONDS (9.7-12.2) H 09/17/17 07:18 INR 1.6 09/17/17 07:18 APTT 33 SECONDS (21-34) 09/17/17 07:18 - Constitutional Appears: Non-toxic, No Acute Distress - Eye Exam Eye Exam: EOMI, PERRL - ENT Exam ENT Exam: Mucous Membranes Moist - Respiratory Exam Respiratory Exam: Clear to Ausculation Bilateral. absent: Rales, Rhonchi, Wheezes - Cardiovascular Exam Cardiovascular Exam: Tachycardia, REGULAR RHYTHM, +S1, +S2 - GI/Abdominal Exam GI & Abdominal Exam: Soft, Normal Bowel Sounds. absent: Distended, Firm, Guarding, Rigid, Tenderness, Organomegaly - Extremities Exam Extremities Exam: Normal Inspection. absent: Pedal Edema - Neurological Exam Neurological Exam: Alert, Awake, Oriented x3 - Psychiatric Exam Psychiatric exam: Normal Affect, Normal Mood - Skin Skin Exam: Dry, Warm Additional comments: diffuse desquamation/skin lesions have improved greatly Assessment and Plan - Assessment and Plan (Free Text) Assessment: Patient is a 41yo male with past medical history significant for compensated EtOH cirrhosis, HTN, DM who presented to the ED with dermatologic complaints -Compensated EtOH cirrhosis, sober since July 2017 -Chronic normocytic anemia -Diffuse desquamation improved Plan: -No overt GI blood losses -Did have procedure yesterday which may have resulted in some blood loss -Agree with supportive care - transfuse as needed; given H/O portal HTN, would avoid overtransfusion and pt has goal HGB 7-8 -Check hemolysis labs: Retic count, LDH, Haptoglobin -Check direct bilirubin -Recommend evaluation of iron, TIBC, transferrin, ferritin levels prior to transfusion -Consider hematololgy consultation <[email or web address] - Last Filed: 09/17/17 13:04> Objective - Vital Signs/Intake and Output Vital Signs (last 24 hours): Temp Pulse Resp BP Pulse Ox 98.6 F 99 H 20 141/80 100 09/17/17 07:00 09/17/17 07:00 09/17/17 07:00 09/17/17 10:01 09/17/17 07:00 Intake and Output: 09/17/17 09/17/17 06:59 18:59 Intake Total 625 Balance 625 - Medications Medications: Current Medications Albuterol Sulfate (Albuterol 0.042% Inhal Marlene (1.25mg/3ml) Ud) 1.25 mg INH RQ4 PRN PRN Reason: Shortness of Breath Last Admin: 09/14/17 07:10 Dose: 1.25 mg Piperacillin Sod/Tazobactam Sod (Zosyn 3.375 Gm Iv Premix) 3.375 gm in 50 mls @ 100 mls/hr IVPB Q8H [facility] PRN Reason: Protocol Last Admin: 09/17/17 10:07 Dose: 100 mls/hr Insulin Human Regular (Novolin R) 0 unit SC ACHS [facility] PRN Reason: Protocol Last Admin: 09/17/17 12:33 Dose: 4 unit Lactic Acid (Lac-Hydrin 12% Lotion (225 G)) 0 gm EXT BID [facility] Last Admin: 09/16/17 21:52 Dose: 1 applic Lactulose (Enulose) 20 gm PO HS [facility] Last Admin: 09/16/17 21:49 Dose: Not Given Metoprolol Tartrate (Lopressor) 25 mg PO BID [facility] Last Admin: 09/17/17 10:01 Dose: 25 mg Multivitamins (Hexavitamin) 1 tab PO DAILY [facility] Last Admin: 09/17/17 10:01 Dose: 1 tab Pantoprazole Sodium (Protonix Inj) 40 mg IVP Q12 [facility] Last Admin: 09/17/17 10:07 Dose: 40 mg Rifaximin (Xifaxan) 550 mg PO BID [facility] PRN Reason: Protocol Last Admin: 09/17/17 10:07 Dose: 550 mg Spironolactone (Aldactone) 25 mg PO BID [facility] Last Admin: 09/17/17 10:01 Dose: 25 mg Trazodone HCl (Desyrel) 25 mg PO HS [facility] - Labs Labs: 09/17/17 07:18 09/17/17 07:18 PT 18.0 SECONDS (9.7-12.2) H 09/17/17 07:18 INR 1.6 09/17/17 07:18 APTT 33 SECONDS (21-34) 09/17/17 07:18 Attending/Attestation - Attestation I have personally seen and examined this patient.: Yes I have fully participated in the care of the patient.: Yes I have reviewed all pertinent clinical information, including history, physical exam and plan: Yes Notes (Text): 09/17/17 13:04 41 year old male with h/o etoh abuse, cirrhosis and persistent anemia. Recommend transfusion of two units of blood. Recent EGD was unrevealing. Last colonoscopy 2015. recommend outpatient colonoscopy and hematology evaluation. Consider VCE as outpatient as well.
--- NOTE | 2017-09-17 13:15 | US ---
Date of procedure: 09/16/2017 Procedure: Ultrasound guidance for vascular access HISTORY: Infection requiring long-term IV antibiotics TECHNIQUE: Following informed consent and procedure time-out, the patient placed supine on the interventional table and the LEFT arm prepped and draped in the usual sterile fashion. Ultrasound showed a patent and compressible basilic vein. After the skin was anesthetized with lidocaine, the basilic vein was accessed with micro micropuncture technique using ultrasound guidance. An image documenting ultrasound guidance for vascular access was permanently saved. IMPRESSION: Ultrasound guidance for vascular access for placement of PICC.
[2017-09-17] MEDS: Ammonium Lactate 12% Lotion (225 g) EXT SCH ×2 (13:22→17:19)
[2017-09-17 14:39] LABS: BILIRUBIN,DIRECT 1.7 mg/dL (0.0-0.4)
[2017-09-17 14:40] LABS: IRON 18 ug/dL (49-181)
[2017-09-17 14:50] LABS: % IRON SATURATION 5 (20-55); TOTAL IRON BINDING CAPACITY 340 ug/dL (250-450)
[2017-09-17 15:22] LABS: FERRITIN 44.1 ng/mL
[2017-09-17 17:32] VITALS: RESP 20
[2017-09-17 19:54] LABS: HEMOGLOBIN 7.2 g/dL (12.0-18.0); MEAN CELL VOLUME 87.2 fL (80.0-94.0); MEAN CORPUSCULAR HEMOGLOBIN 28.9 pg (27.0-31.0); MEAN CORPUSCULAR HGB CONC 33.2 g/dL (33.0-37.0); MEAN PLATELET VOLUME 7.4 fL (7.2-11.7); RBC 2.48 Mil/uL (4.40-5.90); RED CELL DISTRIBUTION WIDTH 17.6 % (11.5-14.5); WHITE BLOOD COUNT 13.3 K/uL (4.8-10.8)
[2017-09-17] MEDS: traZODone 25 mg Tab PO SCH (21:22)
[2017-09-17] MEDS: Pantoprazole 40 mg EC Tab PO SCH (21:23)
--- NOTE | 2017-09-17 21:43 | CP.PCM.PN ---
Subjective - Date & Time of Evaluation Date of Evaluation: 09/17/17 Time of Evaluation: 21:41 - Subjective Subjective: pt today doing well no bleeding from rectum but hb still low oozing noted from picc line labs noted clinically same vitals stable will need GI consult transfusion ordered will f/u Objective - Vital Signs/Intake and Output Vital Signs (last 24 hours): Temp Pulse Resp BP Pulse Ox 98.2 F 100 H 20 136/84 100 09/17/17 18:30 09/17/17 18:30 09/17/17 18:30 09/17/17 18:30 09/17/17 15:24 Intake and Output: 09/17/17 09/18/17 18:59 06:59 Intake Total 425 Balance 425 - Medications Medications: Current Medications Albuterol Sulfate (Albuterol 0.042% Inhal Marlene (1.25mg/3ml) Ud) 1.25 mg INH RQ4 PRN PRN Reason: Shortness of Breath Last Admin: 09/14/17 07:10 Dose: 1.25 mg Piperacillin Sod/Tazobactam Sod (Zosyn 3.375 Gm Iv Premix) 3.375 gm in 50 mls @ 100 mls/hr IVPB Q8H [facility] PRN Reason: Protocol Last Admin: 09/17/17 18:00 Dose: 100 mls/hr Insulin Human Regular (Novolin R) 0 unit SC ACHS [facility] PRN Reason: Protocol Last Admin: 09/17/17 21:23 Dose: Not Given Lactic Acid (Lac-Hydrin 12% Lotion (225 G)) 0 gm EXT BID [facility] Last Admin: 09/17/17 17:19 Dose: 1 applic Lactulose (Enulose) 20 gm PO HS [facility] Last Admin: 09/17/17 21:22 Dose: 20 gm Metoprolol Tartrate (Lopressor) 25 mg PO BID [facility] Last Admin: 09/17/17 17:15 Dose: 25 mg Multivitamins (Hexavitamin) 1 tab PO DAILY [facility] Last Admin: 09/17/17 10:01 Dose: 1 tab Pantoprazole Sodium (Protonix Ec Tab) 40 mg PO Q12 [facility] Last Admin: 09/17/17 21:23 Dose: 40 mg Rifaximin (Xifaxan) 550 mg PO BID [facility] PRN Reason: Protocol Last Admin: 09/17/17 17:15 Dose: 550 mg Spironolactone (Aldactone) 25 mg PO BID [facility] Last Admin: 09/17/17 17:15 Dose: 25 mg Trazodone HCl (Desyrel) 25 mg PO [facility] Last Admin: 09/17/17 21:22 Dose: 25 mg - Labs Labs: 09/17/17 19:49 09/17/17 07:18 PT 18.0 SECONDS (9.7-12.2) H 09/17/17 07:18 INR 1.6 09/17/17 07:18 APTT 33 SECONDS (21-34) 09/17/17 07:18
[2017-09-18] MEDS: Piperacill/Tazo 3.375gm in Dex 3.375 GM/50 ML BAG IVPB SCH (02:45)
[2017-09-18 07:20] LABS: BASO % 0.4 % (0.0-2.0); EOS # 0.8 K/uL (0.0-0.7); EOS % 7.7 % (0.0-4.0); HEMOGLOBIN 6.6 g/dL (12.0-18.0); LYMPH # 2.3 K/uL (1.0-4.3); LYMPH % 20.7 % (20.0-40.0); MEAN CELL VOLUME 88.1 fL (80.0-94.0); MEAN CORPUSCULAR HEMOGLOBIN 29.5 pg (27.0-31.0); MEAN CORPUSCULAR HGB CONC 33.5 g/dL (33.0-37.0); MEAN PLATELET VOLUME 7.7 fL (7.2-11.7); MONO # 1.3 K/uL (0.0-0.8); MONO % 12.1 % (0.0-10.0); NEUT # 6.4 K/uL (1.8-7.0); NEUT % 59.1 % (50.0-75.0); RBC 2.25 Mil/uL (4.40-5.90); RED CELL DISTRIBUTION WIDTH 18.1 % (11.5-14.5); WHITE BLOOD COUNT 10.9 K/uL (4.8-10.8)
[2017-09-18] MEDS: (Novolin R) Insulin Human Regular 100 units/ml vial SC SCH ×4 (08:42→22:06)
[2017-09-18] MEDS: Multiple Vitamins Tab PO SCH (09:35)
[2017-09-18] MEDS: Pantoprazole 40 mg EC Tab PO SCH ×2 (09:35→22:06)
[2017-09-18] MEDS: Ammonium Lactate 12% Lotion (225 g) EXT SCH ×2 (09:36→17:20)
--- NOTE | 2017-09-18 19:21 | CP.PCM.CON ---
History of Present Illness - History of Present Illness History of Present Illness: 41 year old male with a history of HTN, DM, psoriasis, alcoholic liver cirrhosis with esophageal varices and hemorrhoids, admitted with GI bleed and sepsis, with persistent anemia and thrombocytopenia. The patient is currently undergoing PRBC transfusion. He notes to haveing dark black stools in the past but currently notes to brown stool. He does have some bleeding from a recent PICC line but otherwise denies overt bleeding. Past medical history: HTN, DM, psoriasis, alcoholic liver cirrhosis with esophageal varices and hemorrhoids. Past surgical history: Denies Family history: Denies hematologic and oncologic problems Social history: Denies tobacco, alcohol, and illicit drug use. Allergies: NKA Review of systems: All remaining review of systems including HEENT, cardiovascular, respiratory, gastrointestinal, genitourinary, musculoskeletal, dermatologic, neurologic, and psychiatric are negative unless mentioned in the HPI. Past Patient History - Infectious Disease Hx of Infectious Diseases: None - Past Medical History & Family History Past Medical History?: Yes - Past Social History Smoking Status: Never Smoked Alcohol: Other (denies alchohol in the recent past) - CARDIAC Hx Congestive Heart Failure: Yes Hx Hypercholesterolemia: Yes Hx Hypertension: Yes - PULMONARY Hx Asthma: Yes Hx Pneumonia: Yes - NEUROLOGICAL Hx Seizures: Yes (etoh induced) - HEENT Hx HEENT Problems: No - RENAL Hx Chronic Kidney Disease: No - ENDOCRINE/METABOLIC Hx Diabetes Mellitus Type 2: Yes - HEMATOLOGICAL/ONCOLOGICAL Hx Anemia: Yes Hx Human Immunodeficiency Virus (HIV): No - INTEGUMENTARY Hx Dermatological Problems: Yes Hx Psoriasis: Yes Other/Comment: Psoriatic Arthritis - MUSCULOSKELETAL/RHEUMATOLOGICAL Hx Arthritis: Yes Hx Rheumatoid Arthritis: Yes - GASTROINTESTINAL Other/Comment: Liver disease - GENITOURINARY/GYNECOLOGICAL Hx Sexually Transmitted Disorders: No - PSYCHIATRIC Hx Anxiety: Yes Hx Depression: Yes Hx Substance Use: No - SURGICAL HISTORY Hx Surgeries: Yes - ANESTHESIA Hx Anesthesia: Yes Hx Anesthesia Reactions: No Hx Malignant Hyperthermia: No Meds Allergies/Adverse Reactions: Allergies Allergy/AdvReac Type Severity Reaction Status Date / Time No Known Allergies Allergy Verified 09/07/17 22:49 - Medications Medications: Current Medications Albuterol Sulfate (Albuterol 0.042% Inhal Marlene (1.25mg/3ml) Ud) 1.25 mg INH RQ4 PRN PRN Reason: Shortness of Breath Last Admin: 09/14/17 07:10 Dose: 1.25 mg Piperacillin Sod/Tazobactam Sod (Zosyn 3.375 Gm Iv Premix) 3.375 gm in 50 mls @ 100 mls/hr IVPB Q8H [facility] PRN Reason: Protocol Last Admin: 09/18/17 02:45 Dose: 100 mls/hr Insulin Human Regular (Novolin R) 0 unit SC ACHS [facility] PRN Reason: Protocol Last Admin: 09/18/17 17:18 Dose: 2 unit Lactic Acid (Lac-Hydrin 12% Lotion (225 G)) 0 gm EXT BID [facility] Last Admin: 09/18/17 17:20 Dose: 1 applic Lactulose (Enulose) 20 gm PO HS [facility] Last Admin: 09/17/17 21:22 Dose: 20 gm Metoprolol Tartrate (Lopressor) 25 mg PO BID [facility] Last Admin: 09/18/17 17:21 Dose: 25 mg Multivitamins (Hexavitamin) 1 tab PO DAILY [facility] Last Admin: 09/18/17 09:35 Dose: 1 tab Pantoprazole Sodium (Protonix Ec Tab) 40 mg PO Q12 [facility] Last Admin: 09/18/17 09:35 Dose: 40 mg Rifaximin (Xifaxan) 550 mg PO BID [facility] PRN Reason: Protocol Last Admin: 09/18/17 17:17 Dose: 550 mg Spironolactone (Aldactone) 25 mg PO BID [facility] Last Admin: 09/18/17 17:18 Dose: 25 mg Trazodone HCl (Desyrel) 25 mg PO HS [facility] Last Admin: 09/17/17 21:22 Dose: 25 mg Physical Exam - Head Exam Head Exam: ATRAUMATIC - Eye Exam Eye Exam: Normal appearance - ENT Exam ENT Exam: Mucous Membranes Dry - Respiratory Exam Respiratory Exam: NORMAL BREATHING PATTERN - Cardiovascular Exam Cardiovascular Exam: +S1, +S2 - GI/Abdominal Exam GI & Abdominal Exam: Normal Bowel Sounds - Extremities Exam Extremities exam: Positive for: pedal edema Results - Vital Signs Recent Vital Signs: Last Vital Signs Temp 98.2 F 09/18/17 19:16 Pulse 81 09/18/17 19:16 Resp 20 09/18/17 19:16 BP 131/80 09/18/17 19:16 Pulse Ox 100 09/18/17 16:00 - Labs Result Diagrams: 09/18/17 07:16 09/17/17 07:18 Labs: Laboratory Results - last 24 hr 09/17/17 09/17/17 09/18/17 19:49 21:19 01:51 WBC 13.3 H RBC 2.48 L Hgb 7.2 L Hct 21.7 L MCV 87.2 MCH 28.9 MCHC 33.2 RDW 17.6 H Plt Count 96 L MPV 7.4 Neut % (Auto) Lymph % (Auto) Winston % (Auto) Eos % (Auto) Baso % (Auto) Neut # (Auto) Lymph # (Auto) Winston # (Auto) Eos # (Auto) Baso # (Auto) POC Glucose (mg/dL) 207 H 194 H Blood Type Antibody Screen 09/18/17 09/18/17 09/18/17 07:16 07:16 11:27 WBC 10.9 H RBC 2.25 L Hgb 6.6 L Hct 19.8 L MCV 88.1 MCH 29.5 MCHC 33.5 RDW 18.1 H Plt Count 67 L D MPV 7.7 Neut % (Auto) 59.1 Lymph % (Auto) 20.7 Winston % (Auto) 12.1 H Eos % (Auto) 7.7 H Baso % (Auto) 0.4 Neut # (Auto) 6.4 Lymph # (Auto) 2.3 Winston # (Auto) 1.3 H Eos # (Auto) 0.8 H Baso # (Auto) 0.0 POC Glucose (mg/dL) 168 H 187 H Blood Type Antibody Screen 09/18/17 09/18/17 11:51 16:13 WBC RBC Hgb Hct MCV MCH MCHC RDW Plt Count MPV Neut % (Auto) Lymph % (Auto) Winston % (Auto) Eos % (Auto) Baso % (Auto) Neut # (Auto) Lymph # (Auto) Winston # (Auto) Eos # (Auto) Baso # (Auto) POC Glucose (mg/dL) 192 H Blood Type AB POSITIVE Antibody Screen Negative Assessment & Plan (1) Anemia Assessment and Plan: hypoproliferative erythroid response likely chronic GI blood loss causing iron deficiency anemia bone marrow suppression if continues to drink agree with transfusion support will add IV iron low haptoglobin secondary to cirrhosis, no current evidence of hemolysis Status: Acute (2) Thrombocytopenia Assessment and Plan: liver cirrhosis causing thrombopoietin dysregulation likely splenic sequestration from cirrhosis may be exacerbated by bone marrow suppression if continued drinking Status: Acute (3) Coagulopathy Assessment and Plan: liver disease may have nutritional component; will give vit k Thank you for this interesting consult. Status: Acute
[2017-09-18] MEDS: Ferric Sodium Gluconat Complex 62.5 mg/5 ml Vial IVPB SCH (22:03)
[2017-09-18] MEDS: traZODone 25 mg Tab PO SCH (22:04)
[2017-09-19 07:13] LABS: SQUAMOUS EPITHIAL 2 /hpf (0-5); URINE BILIRUBIN 1+ (NEGATIVE); URINE BLOOD 1+ (NEGATIVE); URINE CLARITY Hazy (Clear); URINE GLUCOSE (UA) NORMAL (Normal); URINE LEUKOCYTE ESTERASE NEG Leu/uL (Negative); URINE PROTEIN NEGATIVE (NEGATIVE); URINE UROBILINOGEN NORMAL mg/dL (0.2-1.0)
[2017-09-19 07:19] LABS: URINE COLOR YELLOW (YELLOW)
[2017-09-19] MEDS: (Novolin R) Insulin Human Regular 100 units/ml vial SC SCH ×4 (07:22→21:33)
[2017-09-19 07:58] LABS: BASO # 0.1 K/uL (0.0-0.2); BASO % 0.6 % (0.0-2.0); EOS % 8.6 % (0.0-4.0); LYMPH # 1.9 K/uL (1.0-4.3); LYMPH % 15.9 % (20.0-40.0); MEAN CELL VOLUME 86.7 fL (80.0-94.0); MEAN CORPUSCULAR HEMOGLOBIN 29.6 pg (27.0-31.0); MEAN CORPUSCULAR HGB CONC 34.1 g/dL (33.0-37.0); MEAN PLATELET VOLUME 7.7 fL (7.2-11.7); MONO # 1.1 K/uL (0.0-0.8); MONO % 9.8 % (0.0-10.0); NEUT # 7.6 K/uL (1.8-7.0); NEUT % 65.1 % (50.0-75.0); NRBC % 0.1 % (0.0-2.0); RBC 3.01 Mil/uL (4.40-5.90); RED CELL DISTRIBUTION WIDTH 17.9 % (11.5-14.5); WHITE BLOOD COUNT 11.6 K/uL (4.8-10.8)
[2017-09-19 08:03] LABS: HEMOGLOBIN 8.9 g/dL (12.0-18.0)
[2017-09-19] MEDS: Pantoprazole 40 mg EC Tab PO SCH ×2 (09:24→21:17)
[2017-09-19] MEDS: Multiple Vitamins Tab PO SCH (09:25)
[2017-09-19] MEDS: Ferric Sodium Gluconat Complex 62.5 mg/5 ml Vial IVPB SCH (09:26)
[2017-09-19] MEDS: Ammonium Lactate 12% Lotion (225 g) EXT SCH ×2 (09:29→17:53)
[2017-09-19] MEDS: Piperacill/Tazo 3.375gm in Dex 3.375 GM/50 ML BAG IVPB SCH ×2 (10:36→17:49)
[2017-09-19] MEDS: Albuterol 0.042% Inhal Sol (1.25 mg/3 mL) UD INH PRN (10:59)
--- NOTE | 2017-09-19 13:16 | RAD ---
HISTORY: SOB COMPARISON: Portable chest 09/08/2017. TECHNIQUE: Chest PA and lateral FINDINGS: Leftover strain PICC catheters has been placed in the interval with the tip terminating at the brachiocephalic vein. LUNGS: Diminished inspiratory volume noted. No left-sided infiltrate. It remains difficult to exclude limited right infrahilar infiltrate or atelectasis. Remainder of the right lung field appears clear. PLEURA: No significant pleural effusion identified. No pneumothorax apparent. CARDIOVASCULAR: Prominent appearing cardiac silhouette however frontal technique may be magnified ring its appearance. No pulmonary vascular derangement at this time. OSSEOUS STRUCTURES: No significant abnormalities. VISUALIZED UPPER ABDOMEN: Normal. OTHER FINDINGS: None. IMPRESSION: Limited right infrahilar airspace disease remains difficult to exclude however diminished inspiratory effort may be resulting atelectasis or vascular overlap here. Further, cardiac silhouette is difficult to characterize given frontal knee and now appears prominent. Clinically correlate. No pulmonary vascular derangement.
[2017-09-19] MEDS: traZODone 25 mg Tab PO SCH (21:17)
[2017-09-20] MEDS: Piperacill/Tazo 3.375gm in Dex 3.375 GM/50 ML BAG IVPB SCH ×3 (02:08→17:46)
[2017-09-20 07:22] LABS: BASO # 0.1 K/uL (0.0-0.2); BASO % 0.4 % (0.0-2.0); EOS # 0.9 K/uL (0.0-0.7); EOS % 6.8 % (0.0-4.0); HEMOGLOBIN 7.8 g/dL (12.0-18.0); LYMPH # 2.2 K/uL (1.0-4.3); LYMPH % 17.8 % (20.0-40.0); MEAN CELL VOLUME 87.2 fL (80.0-94.0); MEAN CORPUSCULAR HEMOGLOBIN 29.6 pg (27.0-31.0); MEAN CORPUSCULAR HGB CONC 33.9 g/dL (33.0-37.0); MEAN PLATELET VOLUME 7.8 fL (7.2-11.7); MONO # 1.5 K/uL (0.0-0.8); MONO % 11.7 % (0.0-10.0); NEUT # 7.9 K/uL (1.8-7.0); NEUT % 63.3 % (50.0-75.0); RBC 2.64 Mil/uL (4.40-5.90); WHITE BLOOD COUNT 12.5 K/uL (4.8-10.8)
[2017-09-20] MEDS: (Novolin R) Insulin Human Regular 100 units/ml vial SC SCH ×3 (07:42→17:46)
[2017-09-20] MEDS: Multiple Vitamins Tab PO SCH (10:17)
[2017-09-20] MEDS: Ammonium Lactate 12% Lotion (225 g) EXT SCH (10:17)
[2017-09-20] MEDS: Pantoprazole 40 mg EC Tab PO SCH ×2 (10:18→21:31)
[2017-09-20] MEDS: Ferric Sodium Gluconat Complex 62.5 mg/5 ml Vial IVPB SCH (10:19)
--- NOTE | 2017-09-20 10:57 | CP.PCM.PN ---
Subjective - Date & Time of Evaluation Date of Evaluation: 09/18/17 Time of Evaluation: 10:56 - Subjective Subjective: Patient still continues to have a low hemoglobin No active bleeding outside noted Everyday patient receiving at least 1 unit of blood. We will get a hematology opinion today. I spoke to the patient regarding the ongoing problem. Patient also has a history of liver disease, coagulopathy, varicosities hemorrhoidal. We'll continue to monitor and will follow the patient Objective - Vital Signs/Intake and Output Vital Signs (last 24 hours): Temp Pulse Resp BP Pulse Ox 98.1 F 105 H 20 140/87 100 09/20/17 08:08 09/20/17 08:08 09/20/17 08:08 09/20/17 10:19 09/20/17 08:08 Intake and Output: 09/20/17 09/20/17 06:59 18:59 Intake Total 660 Balance 660 - Medications Medications: Current Medications Albuterol Sulfate (Albuterol 0.042% Inhal Marlene (1.25mg/3ml) Ud) 1.25 mg INH RQ4 PRN PRN Reason: Shortness of Breath Last Admin: 09/19/17 10:59 Dose: 1.25 mg Ferric Sodium Gluconate Complex (Ferrlecit) 125 mg IVPB DAILY [facility] Stop: 09/26/17 20:01 Last Admin: 09/20/17 10:19 Dose: 125 mg Piperacillin Sod/Tazobactam Sod (Zosyn 3.375 Gm Iv Premix) 3.375 gm in 50 mls @ 100 mls/hr IVPB Q8H [facility] PRN Reason: Protocol Last Admin: 09/20/17 02:08 Dose: 100 mls/hr Insulin Human Regular (Novolin R) 0 unit SC ACHS [facility] PRN Reason: Protocol Last Admin: 09/20/17 07:42 Dose: Not Given Lactic Acid (Lac-Hydrin 12% Lotion (225 G)) 0 gm EXT BID [facility] Last Admin: 09/20/17 10:17 Dose: 1 applic Lactulose (Enulose) 20 gm PO HS [facility] Last Admin: 09/19/17 21:34 Dose: Not Given Metoclopramide HCl (Reglan) 10 mg IVP Q12 [facility] Stop: 09/23/17 11:01 Metoprolol Tartrate (Lopressor) 25 mg PO BID [facility] Last Admin: 09/20/17 10:19 Dose: 25 mg Multivitamins (Hexavitamin) 1 tab PO DAILY [facility] Last Admin: 09/20/17 10:17 Dose: 1 tab Pantoprazole Sodium (Protonix Ec Tab) 40 mg PO Q12 [facility] Last Admin: 09/20/17 10:18 Dose: 40 mg Rifaximin (Xifaxan) 550 mg PO BID [facility] PRN Reason: Protocol Last Admin: 09/20/17 10:18 Dose: 550 mg Spironolactone (Aldactone) 25 mg PO BID [facility] Last Admin: 09/20/17 10:17 Dose: 25 mg Trazodone HCl (Desyrel) 25 mg PO HS [facility] Last Admin: 09/19/17 21:17 Dose: 25 mg - Labs Labs: 09/20/17 06:54 09/17/17 07:18 PT 18.0 SECONDS (9.7-12.2) H 09/17/17 07:18 INR 1.6 09/17/17 07:18 APTT 33 SECONDS (21-34) 09/17/17 07:18
--- NOTE | 2017-09-20 10:58 | CP.PCM.PN ---
Subjective - Date & Time of Evaluation Date of Evaluation: 09/19/17 Time of Evaluation: 10:57 - Subjective Subjective: Patient's hemoglobin is slightly better today. Intravenous iron supplemented yesterday. But he is still feeling weak, cough noted, minimal shortness of breath noted. Patient had episodes of vomiting in the past. X-ray of the chest showing evidence of basilar atelectasis. On examination: Vital signs stable. Minimal basal rales noted irregular dorsal nontender abdomen Edema noted At this time patient is on antibiotic also. Incentive spirometer. Continue the current treatment. Hemoglobin tomorrow Objective - Vital Signs/Intake and Output Vital Signs (last 24 hours): Temp Pulse Resp BP Pulse Ox 98.1 F 105 H 20 140/87 100 09/20/17 08:08 09/20/17 08:08 09/20/17 08:08 09/20/17 10:19 09/20/17 08:08 Intake and Output: 09/20/17 09/20/17 06:59 18:59 Intake Total 660 Balance 660 - Medications Medications: Current Medications Albuterol Sulfate (Albuterol 0.042% Inhal Marlene (1.25mg/3ml) Ud) 1.25 mg INH RQ4 PRN PRN Reason: Shortness of Breath Last Admin: 09/19/17 10:59 Dose: 1.25 mg Ferric Sodium Gluconate Complex (Ferrlecit) 125 mg IVPB DAILY [facility] Stop: 09/26/17 20:01 Last Admin: 09/20/17 10:19 Dose: 125 mg Piperacillin Sod/Tazobactam Sod (Zosyn 3.375 Gm Iv Premix) 3.375 gm in 50 mls @ 100 mls/hr IVPB Q8H [facility] PRN Reason: Protocol Last Admin: 09/20/17 02:08 Dose: 100 mls/hr Insulin Human Regular (Novolin R) 0 unit SC ACHS [facility] PRN Reason: Protocol Last Admin: 09/20/17 07:42 Dose: Not Given Lactic Acid (Lac-Hydrin 12% Lotion (225 G)) 0 gm EXT BID [facility] Last Admin: 09/20/17 10:17 Dose: 1 applic Lactulose (Enulose) 20 gm PO HS [facility] Last Admin: 09/19/17 21:34 Dose: Not Given Metoclopramide HCl (Reglan) 10 mg IVP Q12 [facility] Stop: 09/23/17 11:01 Metoprolol Tartrate (Lopressor) 25 mg PO BID [facility] Last Admin: 09/20/17 10:19 Dose: 25 mg Multivitamins (Hexavitamin) 1 tab PO DAILY [facility] Last Admin: 09/20/17 10:17 Dose: 1 tab Pantoprazole Sodium (Protonix Ec Tab) 40 mg PO Q12 [facility] Last Admin: 09/20/17 10:18 Dose: 40 mg Rifaximin (Xifaxan) 550 mg PO BID [facility] PRN Reason: Protocol Last Admin: 09/20/17 10:18 Dose: 550 mg Spironolactone (Aldactone) 25 mg PO BID [facility] Last Admin: 09/20/17 10:17 Dose: 25 mg Trazodone HCl (Desyrel) 25 mg PO HS [facility] Last Admin: 09/19/17 21:17 Dose: 25 mg - Labs Labs: 09/20/17 06:54 09/17/17 07:18 PT 18.0 SECONDS (9.7-12.2) H 09/17/17 07:18 INR 1.6 09/17/17 07:18 APTT 33 SECONDS (21-34) 09/17/17 07:18
--- NOTE | 2017-09-20 19:20 | CP.PCM.PN ---
Subjective - Date & Time of Evaluation Date of Evaluation: 09/20/17 Time of Evaluation: 13:55 - Subjective Subjective: Patient was very upset, he wanted to go home. But he is complaining of bilateral leg edema, swelling, and the discharge, watery. Patient is also upset that he is not being told about what's the situation. But on a daily basis, I explained to the patient about the overall condition. Patient is a multiple transfusion as well as multiple plasma. Patient was seen by security messenger, gastroenteritis to. Receiving iron infusion. Objective - Vital Signs/Intake and Output Vital Signs (last 24 hours): Temp Pulse Resp BP Pulse Ox 98.6 F 92 H 20 130/70 100 09/20/17 16:18 09/20/17 16:18 09/20/17 16:18 09/20/17 17:46 09/20/17 16:18 Intake and Output: 09/20/17 09/21/17 18:59 06:59 Intake Total 450 Balance 450 - Medications Medications: Current Medications Albuterol Sulfate (Albuterol 0.042% Inhal Marlene (1.25mg/3ml) Ud) 1.25 mg INH RQ4 PRN PRN Reason: Shortness of Breath Last Admin: 09/19/17 10:59 Dose: 1.25 mg Ferric Sodium Gluconate Complex (Ferrlecit) 125 mg IVPB DAILY [facility] Stop: 09/26/17 20:01 Last Admin: 09/20/17 10:19 Dose: 125 mg Furosemide (Lasix) 40 mg PO DAILY [facility] Piperacillin Sod/Tazobactam Sod (Zosyn 3.375 Gm Iv Premix) 3.375 gm in 50 mls @ 100 mls/hr IVPB Q8H [facility] PRN Reason: Protocol Last Admin: 09/20/17 17:46 Dose: 100 mls/hr Insulin Human Regular (Novolin R) 0 unit SC ACHS [facility] PRN Reason: Protocol Last Admin: 09/20/17 17:46 Dose: Not Given Lactic Acid (Lac-Hydrin 12% Lotion (225 G)) 0 gm EXT BID [facility] Last Admin: 09/20/17 10:17 Dose: 1 applic Lactulose (Enulose) 20 gm PO HS [facility] Last Admin: 09/19/17 21:34 Dose: Not Given Metoprolol Tartrate (Lopressor) 25 mg PO BID [facility] Last Admin: 09/20/17 17:46 Dose: 25 mg Multivitamins (Hexavitamin) 1 tab PO DAILY [facility] Last Admin: 09/20/17 10:17 Dose: 1 tab Pantoprazole Sodium (Protonix Ec Tab) 40 mg PO Q12 [facility] Last Admin: 09/20/17 10:18 Dose: 40 mg Rifaximin (Xifaxan) 550 mg PO BID [facility] PRN Reason: Protocol Last Admin: 09/20/17 17:45 Dose: 550 mg Spironolactone (Aldactone) 25 mg PO BID [facility] Last Admin: 09/20/17 17:45 Dose: 25 mg - Labs Labs: 09/20/17 06:54 09/17/17 07:18 PT 18.0 SECONDS (9.7-12.2) H 09/17/17 07:18 INR 1.6 09/17/17 07:18 APTT 33 SECONDS (21-34) 09/17/17 07:18 Assessment and Plan (1) Liver cirrhosis Assessment & Plan: Patient with the liver disease chronic. Patient also has a history of alcoholic liver disease. Diabetes and hypertension. Psoriasis, and a excoriation. Significant skin changes noted. Patient developed a sepsis, currently stable. Patient is generalized edema secondary to fluid overload. Will give IV Lasix, diuretics and will follow the patient Status: Acute (2) Psoriasiform dermatitis Status: Acute (3) Sepsis Status: Acute
--- NOTE | 2017-09-20 21:41 | CP.PCM.PN ---
Subjective - Date & Time of Evaluation Date of Evaluation: 09/20/17 Time of Evaluation: 20:30 - Subjective Subjective: Feels tired Objective - Vital Signs/Intake and Output Vital Signs (last 24 hours): Temp Pulse Resp BP Pulse Ox 98.6 F 92 H 20 128/75 100 09/20/17 16:18 09/20/17 16:18 09/20/17 16:18 09/20/17 20:17 09/20/17 16:18 Intake and Output: 09/20/17 09/21/17 18:59 06:59 Intake Total 450 Balance 450 - Medications Medications: Current Medications Albuterol Sulfate (Albuterol 0.042% Inhal Marlene (1.25mg/3ml) Ud) 1.25 mg INH RQ4 PRN PRN Reason: Shortness of Breath Last Admin: 09/19/17 10:59 Dose: 1.25 mg Ferric Sodium Gluconate Complex (Ferrlecit) 125 mg IVPB DAILY [facility] Stop: 09/26/17 20:01 Last Admin: 09/20/17 10:19 Dose: 125 mg Furosemide (Lasix) 40 mg PO DAILY [facility] Piperacillin Sod/Tazobactam Sod (Zosyn 3.375 Gm Iv Premix) 3.375 gm in 50 mls @ 100 mls/hr IVPB Q8H [facility] PRN Reason: Protocol Last Admin: 09/20/17 17:46 Dose: 100 mls/hr Insulin Human Regular (Novolin R) 0 unit SC ACHS [facility] PRN Reason: Protocol Last Admin: 09/20/17 17:46 Dose: Not Given Lactic Acid (Lac-Hydrin 12% Lotion (225 G)) 0 gm EXT BID [facility] Last Admin: 09/20/17 10:17 Dose: 1 applic Lactulose (Enulose) 20 gm PO HS [facility] Last Admin: 09/19/17 21:34 Dose: Not Given Metoprolol Tartrate (Lopressor) 25 mg PO BID [facility] Last Admin: 09/20/17 17:46 Dose: 25 mg Multivitamins (Hexavitamin) 1 tab PO DAILY [facility] Last Admin: 09/20/17 10:17 Dose: 1 tab Pantoprazole Sodium (Protonix Ec Tab) 40 mg PO Q12 [facility] Last Admin: 09/20/17 21:31 Dose: 40 mg Rifaximin (Xifaxan) 550 mg PO BID [facility] PRN Reason: Protocol Last Admin: 09/20/17 17:45 Dose: 550 mg Spironolactone (Aldactone) 25 mg PO BID [facility] Last Admin: 09/20/17 17:45 Dose: 25 mg - Labs Labs: 09/20/17 06:54 09/17/17 07:18 PT 18.0 SECONDS (9.7-12.2) H 09/17/17 07:18 INR 1.6 09/17/17 07:18 APTT 33 SECONDS (21-34) 09/17/17 07:18 - Head Exam Head Exam: ATRAUMATIC - Eye Exam Eye Exam: Normal appearance - ENT Exam ENT Exam: Mucous Membranes Dry - Respiratory Exam Respiratory Exam: NORMAL BREATHING PATTERN - Cardiovascular Exam Cardiovascular Exam: +S1, +S2 - GI/Abdominal Exam GI & Abdominal Exam: Normal Bowel Sounds - Extremities Exam Extremities Exam: Pedal Edema Assessment and Plan (1) Anemia Assessment & Plan: hypoproliferative erythroid response likely chronic GI blood loss causing iron deficiency anemia bone marrow suppression if continued drinking on IV iron transfusion support PRN Status: Acute (2) Thrombocytopenia Assessment & Plan: liver cirrhosis causing thrombopoietin dysregulation likely splenic sequestration from cirrhosis may be exacerbated by bone marrow suppression if continued drinking Status: Acute (3) Coagulopathy Assessment & Plan: liver disease s/p vit k Status: Acute
[2017-09-21] MEDS: Piperacill/Tazo 3.375gm in Dex 3.375 GM/50 ML BAG IVPB SCH ×2 (01:58→10:39)
[2017-09-21 07:14] LABS: BASO # 0.1 K/uL (0.0-0.2); BASO % 0.9 % (0.0-2.0); EOS # 0.9 K/uL (0.0-0.7); EOS % 7.3 % (0.0-4.0); HEMOGLOBIN 7.7 g/dL (12.0-18.0); LYMPH # 2.3 K/uL (1.0-4.3); LYMPH % 18.2 % (20.0-40.0); MEAN CELL VOLUME 88.1 fL (80.0-94.0); MEAN CORPUSCULAR HEMOGLOBIN 29.6 pg (27.0-31.0); MEAN CORPUSCULAR HGB CONC 33.6 g/dL (33.0-37.0); MEAN PLATELET VOLUME 7.6 fL (7.2-11.7); MONO # 1.5 K/uL (0.0-0.8); NEUT # 7.8 K/uL (1.8-7.0); NEUT % 61.6 % (50.0-75.0); RBC 2.61 Mil/uL (4.40-5.90); RED CELL DISTRIBUTION WIDTH 18.7 % (11.5-14.5); WHITE BLOOD COUNT 12.7 K/uL (4.8-10.8)
[2017-09-21 07:25] LABS: INR 1.5; PROTHROMBIN TIME 17.6 SECONDS (9.7-12.2)
[2017-09-21 07:39] LABS: ALB/GLOB RATIO 0.6 (1.0-2.1); ALT/SGPT 34 U/L (21-72); AST/SGOT 30 U/L (17-59); BLOOD UREA NITROGEN 11 mg/dL (9-20); GFR AFRICAN-AMERICAN > 60; GFR NON-AFRICAN AMERICAN > 60
[2017-09-21] MEDS: (Novolin R) Insulin Human Regular 100 units/ml vial SC SCH ×2 (07:45→12:14)
[2017-09-21] MEDS: Multiple Vitamins Tab PO SCH (10:38)
[2017-09-21] MEDS: Pantoprazole 40 mg EC Tab PO SCH (10:38)
[2017-09-21] MEDS: Ferric Sodium Gluconat Complex 62.5 mg/5 ml Vial IVPB SCH (10:39)
--- NOTE | 2017-09-21 15:20 | CP.PCM.PN ---
Subjective - Date & Time of Evaluation Date of Evaluation: 09/21/17 Time of Evaluation: 15:20 - Subjective Subjective: Awake, alert, no sob or chest pains. Skin with peeling skin, chronic condition. Objective - Vital Signs/Intake and Output Vital Signs (last 24 hours): Temp Pulse Resp BP Pulse Ox 99.2 F 90 20 141/80 100 09/21/17 07:46 09/21/17 07:46 09/21/17 07:46 09/21/17 10:38 09/21/17 07:46 Intake and Output: 09/21/17 09/21/17 06:59 18:59 Intake Total 50 Balance 50 - Medications Medications: Current Medications Albuterol Sulfate (Albuterol 0.042% Inhal Marlene (1.25mg/3ml) Ud) 1.25 mg INH RQ4 PRN PRN Reason: Shortness of Breath Last Admin: 09/19/17 10:59 Dose: 1.25 mg Ferric Sodium Gluconate Complex (Ferrlecit) 125 mg IVPB DAILY [facility] Stop: 09/26/17 20:01 Last Admin: 09/21/17 10:39 Dose: 125 mg Furosemide (Lasix) 40 mg PO DAILY [facility] Last Admin: 09/21/17 10:38 Dose: 40 mg Piperacillin Sod/Tazobactam Sod (Zosyn 3.375 Gm Iv Premix) 3.375 gm in 50 mls @ 100 mls/hr IVPB Q8H [facility]Y PRN Reason: Protocol Last Admin: 09/21/17 10:39 Dose: 100 mls/hr Insulin Human Regular (Novolin R) 0 unit SC ACHS [facility] PRN Reason: Protocol Last Admin: 09/21/17 12:14 Dose: 2 unit Lactic Acid (Lac-Hydrin 12% Lotion (225 G)) 0 gm EXT BID [facility] Last Admin: 09/20/17 10:17 Dose: 1 applic Lactulose (Enulose) 20 gm PO HS [facility] Last Admin: 09/19/17 21:34 Dose: Not Given Metoprolol Tartrate (Lopressor) 25 mg PO BID [facility] Last Admin: 09/21/17 10:38 Dose: 25 mg Multivitamins (Hexavitamin) 1 tab PO DAILY [facility] Last Admin: 09/21/17 10:38 Dose: 1 tab Pantoprazole Sodium (Protonix Ec Tab) 40 mg PO Q12 [facility] Last Admin: 09/21/17 10:38 Dose: 40 mg Rifaximin (Xifaxan) 550 mg PO BID [facility] PRN Reason: Protocol Last Admin: 09/21/17 10:41 Dose: 550 mg Spironolactone (Aldactone) 25 mg PO BID [facility] Last Admin: 09/21/17 10:38 Dose: 25 mg - Labs Labs: 09/21/17 07:07 09/21/17 07:07 PT 17.6 SECONDS (9.7-12.2) H 09/21/17 07:07 INR 1.5 09/21/17 07:07 APTT 37 SECONDS (21-34) H 09/21/17 07:07 Assessment and Plan - Assessment and Plan (Free Text) Assessment: Patient admitted with sepsis, seen and examined. Alert and oriented x3, denies sob or chest pains no acute distress. skin with psoriasis, chronic. Has liver cirrhosis secondary to alcoholism, iron deficiency anemia, was given blood transfusions and ferrlicit transfusions. Lab works stable, discharge plan to home today as per DR Edwards. Patient verbalized understanding to follow up with PMD and DR Panda in 1 week. Advised to stay away from alcohol.
[2017-09-21 16:40] VITALS: BP 126/81; PULSE 103; TEMP 98.5; O2SAT 97
--- NOTE | 2017-09-21 19:16 | CP.PCM.PN ---
Subjective - Date & Time of Evaluation Date of Evaluation: 09/21/17 Time of Evaluation: 13:00 - Subjective Subjective: No complaints. Objective - Vital Signs/Intake and Output Vital Signs (last 24 hours): Temp Pulse Resp BP Pulse Ox 98.5 F 103 H 20 126/81 97 09/21/17 15:00 09/21/17 15:00 09/21/17 15:00 09/21/17 15:00 09/21/17 15:00 Intake and Output: 09/21/17 09/22/17 18:59 06:59 Intake Total 50 Balance 50 - Labs Labs: 09/21/17 07:07 09/21/17 07:07 PT 17.6 SECONDS (9.7-12.2) H 09/21/17 07:07 INR 1.5 09/21/17 07:07 APTT 37 SECONDS (21-34) H 09/21/17 07:07 - Head Exam Head Exam: ATRAUMATIC - Eye Exam Eye Exam: Scleral icterus - ENT Exam ENT Exam: Mucous Membranes Dry - Respiratory Exam Respiratory Exam: NORMAL BREATHING PATTERN - Cardiovascular Exam Cardiovascular Exam: +S1, +S2 - GI/Abdominal Exam GI & Abdominal Exam: Normal Bowel Sounds Assessment and Plan (1) Anemia Assessment & Plan: hypoproliferative erythroid response likely chronic GI blood loss causing iron deficiency anemia bone marrow suppression if continued drinking on IV iron transfusion support PRN Status: Acute (2) Thrombocytopenia Assessment & Plan: liver cirrhosis causing thrombopoietin dysregulation likely splenic sequestration from cirrhosis may be exacerbated by bone marrow suppression if continued drinking Status: Acute (3) Coagulopathy Assessment & Plan: liver disease s/p vit k Status: Acute
--- NOTE | 2017-09-22 12:33 | CP.PCM.PN ---
Subjective - Date & Time of Evaluation Date of Evaluation: 09/10/17 Time of Evaluation: 13:53 - Subjective Subjective: Patient having increasing symptoms of cough. Increasing leg swelling noted. Hemoglobin is low. Patient is a transfusion. Vital signs stable. Elevated blood pressure noted. Chest good air entry. Regular heart sound. Abdomen soft and edema bilaterally noted. Skin peeling is improving. Skin changes better. Objective - Vital Signs/Intake and Output Vital Signs (last 24 hours): Temp Pulse Resp BP Pulse Ox 98.5 F 103 H 20 126/81 97 09/21/17 15:00 09/21/17 15:00 09/21/17 15:00 09/21/17 15:00 09/21/17 15:00 - Labs Labs: 09/21/17 07:07 09/21/17 07:07 PT 17.6 SECONDS (9.7-12.2) H 09/21/17 07:07 INR 1.5 09/21/17 07:07 APTT 37 SECONDS (21-34) H 09/21/17 07:07 Assessment and Plan (1) AA (alcohol abuse) Status: Acute (2) Cirrhosis Status: Acute (3) Elevated liver enzymes Status: Acute
--- NOTE | 2017-09-22 12:34 | CP.PCM.DIS ---
Provider - Provider Date of Admission: 09/08/17 00:10 Attending physician: Damaris Edwards MD Time Spent in preparation of Discharge (in minutes): 45 Diagnosis - Discharge Diagnosis (1) Liver cirrhosis Status: Acute (2) Major depression Status: Acute (3) Psoriatic arthritis Status: Acute (4) Sepsis Status: Acute (5) Skin lesion Status: Acute (6) Thrombocytopenia Status: Acute (7) Diabetes Status: Chronic (8) Hypertension Status: Chronic Hospital Course - Lab Results Lab Results: Micro Results 09/18/17 20:00 Blood-Venous Blood Culture - Preliminary NO GROWTH AFTER 3 DAYS 09/18/17 12:59 Blood-Venous Blood Culture - Preliminary NO GROWTH AFTER 3 DAYS 09/19/17 06:22 Urine,Clean Catch Urine Culture - Final No Growth (<1,000 CFU/ML) 09/07/17 22:53 Blood Blood Culture - Final NO GROWTH AFTER 5 DAYS 09/07/17 22:53 Blood Gram Stain - Final TEST NOT PERFORMED 09/07/17 22:53 Blood Blood Culture - Final NO GROWTH AFTER 5 DAYS 09/07/17 22:53 Blood Gram Stain - Final TEST NOT PERFORMED 09/11/17 21:20 Naris MRSA Culture - Final MRSA NOT DETECTED 09/09/17 05:05 Urine,Clean Catch Urine Culture - Final No Growth (<1,000 CFU/ML) 09/08/17 01:44 Nose MRSA Culture (Admit) - Final MRSA NOT DETECTED Most Recent Lab Values WBC 12.7 K/uL (4.8-10.8) H 09/21/17 07:07 RBC 2.61 Mil/uL (4.40-5.90) L 09/21/17 07:07 Hgb 7.7 g/dL (12.0-18.0) L 09/21/17 07:07 Hct 23.0 % (35.0-51.0) L 09/21/17 07:07 MCV 88.1 fL (80.0-94.0) 09/21/17 07:07 MCH 29.6 pg (27.0-31.0) 09/21/17 07:07 MCHC 33.6 g/dL (33.0-37.0) 09/21/17 07:07 RDW 18.7 % (11.5-14.5) H 09/21/17 07:07 Plt Count 83 K/uL (130-400) L 09/21/17 07:07 MPV 7.6 fL (7.2-11.7) 09/21/17 07:07 Neut % (Auto) 61.6 % (50.0-75.0) 09/21/17 07:07 Lymph % (Auto) 18.2 % (20.0-40.0) L 09/21/17 07:07 [place] % (Auto) 12.0 % (0.0-10.0) H 09/21/17 07:07 Eos % (Auto) 7.3 % (0.0-4.0) H 09/21/17 07:07 Baso % (Auto) 0.9 % (0.0-2.0) 09/21/17 07:07 Neut # (Auto) 7.8 K/uL (1.8-7.0) H 09/21/17 07:07 Lymph # (Auto) 2.3 K/uL (1.0-4.3) 09/21/17 07:07 [place] # (Auto) 1.5 K/uL (0.0-0.8) H 09/21/17 07:07 Eos # (Auto) 0.9 K/uL (0.0-0.7) H 09/21/17 07:07 Baso # (Auto) 0.1 K/uL (0.0-0.2) 09/21/17 07:07 Neutrophils % (Manual) 84 % (50-75) H 09/09/17 06:04 Band Neutrophils % 3 % (0-2) H 09/08/17 07:24 Lymphocytes % (Manual) 7 % (20-40) L 09/09/17 06:04 Monocytes % (Manual) 9 % (0-10) 09/09/17 06:04 Eosinophils % (Manual) 1 % (0-4) 09/08/17 07:24 Platelet Estimate Normal (NORMAL) 09/09/17 06:04 Polychromasia Slight 09/09/17 06:04 Hypochromasia (manual) Moderate 09/09/17 06:04 Poikilocytosis (manual Slight 09/09/17 06:04 Anisocytosis (manual) Slight 09/09/17 06:04 Microcytosis (manual) Slight 09/09/17 06:04 Macrocytosis (manual) Slight 09/08/17 07:24 Target Cells Slight 09/09/17 06:04 Tear Drop Cells Slight 09/08/17 07:24 Ovalocytes Slight 09/09/17 06:04 Runnells Cells Slight 09/09/17 06:04 ESR 80 mm/hr (0-15) H 09/10/17 06:11 Retic Count 6.5 % (0.5-1.5) H D 09/17/17 13:10 Haptoglobin < 20.0 mg/dL (30.0-200.0) L 09/17/17 14:14 PT 17.6 SECONDS (9.7-12.2) H 09/21/17 07:07 INR 1.5 09/21/17 07:07 APTT 37 SECONDS (21-34) H 09/21/17 07:07 pO2 48 mm/Hg (30-55) 09/08/17 01:53 VBG pH 7.28 (7.32-7.43) L 09/08/17 01:53 VBG pCO2 28 mmHg (40-60) L 09/08/17 01:53 VBG HCO3 15.0 mmol/L 09/08/17 01:53 VBG Total CO2 14.1 mmol/L (22-28) L 09/08/17 01:53 VBG O2 Sat (Calc) 80.7 % (40-65) H 09/08/17 01:53 VBG Base Excess -12.0 mmol/L (0.0-2.0) L 09/08/17 01:53 VBG Potassium 4.2 mmol/L (3.6-5.2) 09/08/17 01:53 Sodium 143.0 mmol/l (132-148) 09/08/17 01:53 Chloride 109.0 mmol/L (98-107) H 09/08/17 01:53 Glucose 213 mg/dl (75-110) H 09/08/17 01:53 Lactate 10.6 mmol/L (0.7-2.1) H* 09/08/17 01:53 Crit Value Called To Federico wilson 09/08/17 01:53 Crit Value Called By Jasvir johnston 09/08/17 01:53 Blood Gas Notified Time 2313 09/08/17 01:53 Sodium 134 mmol/L (132-148) 09/21/17 07:07 Potassium 3.9 mmol/L (3.6-5.2) 09/21/17 07:07 Chloride 104 mmol/L (98-107) 09/21/17 07:07 Carbon Dioxide 18 mmol/L (22-30) L 09/21/17 07:07 Anion Gap 15 (10-20) 09/21/17 07:07 BUN 11 mg/dL (9-20) 09/21/17 07:07 Creatinine 1.2 mg/dL (0.8-1.5) 09/21/17 07:07 Est GFR ( Amer) > 60 09/21/17 07:07 Est GFR (Non-Af Amer) > 60 09/21/17 07:07 POC Glucose (mg/dL) 132 mg/dL (65-110) H 09/21/17 16:09 Random Glucose 101 mg/dL (75-110) 09/21/17 07:07 Lactic Acid 2.6 mmol/L (0.7-2.1) H 09/08/17 07:17 Calcium 7.0 mg/dl (8.6-10.4) L 09/21/17 07:07 Phosphorus 2.3 mg/dL (2.5-4.5) L 09/11/17 06:07 Magnesium 1.7 mg/dL (1.6-2.3) 09/11/17 06:07 Iron 18 ug/dL (49-181) L 09/17/17 14:14 TIBC 340 ug/dL (250-450) 09/17/17 14:14 % Saturation 5 (20-55) L 09/17/17 14:14 Transferrin 235.60 mg/dL (206-381) 09/17/17 14:14 Ferritin 44.1 ng/mL 09/17/17 14:14 Total Bilirubin 2.1 mg/dL (0.2-1.3) H 09/21/17 07:07 Direct Bilirubin 1.7 mg/dL (0.0-0.4) H 09/17/17 14:14 AST 30 U/L (17-59) 09/21/17 07:07 ALT 34 U/L (21-72) 09/21/17 07:07 Alkaline Phosphatase 87 U/L (38-126) 09/21/17 07:07 Lactate Dehydrogenase 756 U/L (313-618) H 09/17/17 14:14 C-React Prot High Sens 2.82 mg/L (1.00-3.00) 09/10/17 06:11 Total Protein 5.3 g/dL (6.3-8.3) L 09/21/17 07:07 Albumin 2.0 g/dL (3.5-5.0) L 09/21/17 07:07 Globulin 3.3 gm/dL (2.2-3.9) 09/21/17 07:07 Albumin/Globulin Ratio 0.6 (1.0-2.1) L 09/21/17 07:07 Venous Blood Potassium 4.2 mmol/L (3.6-5.2) 09/08/17 01:53 Urine Color Yellow (YELLOW) 09/19/17 06:22 Urine Clarity Hazy (Clear) 09/19/17 06:22 Urine pH 5.0 (5.0-8.0) 09/19/17 06:22 Ur Specific Miller 1.026 (1.003-1.030) 09/19/17 06:22 Urine Protein Negative mg/dL (NEGATIVE) 09/19/17 06:22 Urine Glucose (UA) Normal mg/dL (Normal) 09/19/17 06:22 Urine Ketones Negative mg/dL (NEGATIVE) 09/19/17 06:22 Urine Blood 1+ (NEGATIVE) H 09/19/17 06:22 Urine Nitrate Negative (NEGATIVE) 09/19/17 06:22 Urine Bilirubin 1+ (NEGATIVE) H 09/19/17 06:22 Urine Urobilinogen Normal mg/dL (0.2-1.0) 09/19/17 06:22 Ur Leukocyte Esterase Neg Lexie/uL (Negative) 09/19/17 06:22 Urine WBC (Auto) 4 /hpf (0-5) 09/19/17 06:22 Urine RBC (Auto) 11 /hpf (0-3) H 09/19/17 06:22 Ur Squamous Epith Cells 2 /hpf (0-5) 09/19/17 06:22 Ur Transition Epith Cell < 1 /hpf (0-3) 09/08/17 18:21 Calcium Oxalate Crystal Rare /hpf (<OCC) 09/08/17 18:21 Urine Bacteria Rare (<OCC) 09/08/17 18:21 Stool Occult Blood Positive (NEGATIVE) H 09/11/17 16:48 Alcohol, Quantitative < 10 mg/dl (0-10) 09/08/17 00:11 Complement C3 56.0 mg/dL (88.0-165.0) L 09/10/17 06:11 Complement C4 9.9 mg/dL (14.0-44.0) L 09/10/17 06:11 Anti-Staphylolysin O Positive (NEGATIVE) H 09/10/17 04:00 Anti-Streptolysin Titr =>800 iu/ml (NEGATIVE) H 09/10/17 04:00 Blood Type AB POSITIVE 09/18/17 11:51 Antibody Screen Negative 09/18/17 11:51 - Hospital Course Hospital Course: chief concern: fever and skin lesions HPI: Patient is a 41yo male with past medical history of hypertension, alcohol- induced liver cirrhosis, hypertension, diabetes, psoriasis that presented with skin lesions in the both palm and soles and skin peeling noted swelling in the extremities noted fever chills not feeling well generalised weakness and feeling chillss The patient was seen by me in my office, at the time patient was doing extremely well, he was not drinking alcohol for quite some time. Patient was able to manage his medications well. He was able to control his sugar better. But he had a somewhat family issues, Gotten worse recently. PMHx: as stated above PSHx: history of endoscopy/colonoscopy Allergies: NKDA Family hx: Father: history of heart transplant; Mother: hypertension/diabetes Social Hx: Daily alcohol consumption (~1pint of vodka per day), denies illicit drug use and former tobacco use Endoscopy hx: Endoscopy/Colonoscopy completed in 10/2015 - revealed grade 1 esophageal varices, LA Grade B Esophagitis, internal hemorrhoids, edema of the ascending colon ROS: the chart Vital signs reviewed No neck vein distention noted Chest good air entry bilaterally, no wheezing or rales noted CVS regular heart sound, no murmur noted abdominal distention noted pedal edema noted STORM CHASER alert awake oriented -3, no functional neurological deficit patient is having tremor Psoriatic skin lesions worsening labs reveal Low hemoglobin noted Coagulopathy high wbc fever Assessment and recommended 41-year-old male, hypertension, alcoholic liver disease, diabetes, psoriasis admitted with acute alcoholic intoxication, acute GI bleed, and4 anemia. patient overall prognosis is very poor, will continue the IICU monitoring. acute severe sepsis with lactate high on antibotics iv hydration GI eval will f/u Course in the hospital: Patient was hospitalized in intensive care unit with the severe sepsis and high fever, and altered mental status. Patient started intravenous antibiotic. Fluid resuscitation. Patient started improving. Significant improvement in the skin changes also noted with the intravenous corticosteroid and the topical anti-inflammatory cream. Patient psoriatic skin lesions are improving. Meanwhile patient developed chronic anemia, no active bleeding noted. Patient is due to multiple transfusion, FFP. Patient was seen by field technical assistant as well as oncologist. Patient has a slow drop in the hemoglobin, currently stable. He will continue the intravenous iron infusion as an outpatient. Patient is discharged home today. He will follow up as an outpatient. Diagnoses: Acute sepsis secondary to skin infection. Psoriasis. Liver disease, liver cirrhosis. Alcoholic liver disease. Diabetes and hypertension. Medications reviewed. Discuss with the patient Discharge Exam - Head Exam Head Exam: ATRAUMATIC Discharge Plan - Discharge Medications Prescriptions: Ferrous Sulfate 325 mg PO BID 30 Days tablet Furosemide [Lasix] 40 mg PO DAILY #30 tablet - Follow Up Plan Condition: GOOD Disposition: HOME/ ROUTINE Instructions: Heart Failure, Adult, Psoriasis (DC), Ferrous Sulfate, Furosemide , Low Magnesium Level (DC), Normocytic Normochromic Anemia (DC), Sepsis (DC) Additional Instructions: Follow up with DR Panda and DR Nugent in 1-2 weeks Follow up with Dr. Edwards in one week. Referrals: Ubaldo Panda MD [Staff Provider] - Damaris Edwards MD [Staff Provider] -
== END 2017-09-21 16:48 | disposition home or self-care (01) | DRG 901 ==
LOC: C.ER 22:10 → C.9I 09-08 00:10 → C.3T 09-11 18:14
PROVIDERS: ADMIT Internal Medicine; ATTEND Internal Medicine
PROC: 02HV33Z Insertion of Infusion Device into Superior Vena Cava, Percutaneous Approach (ICD-10-PCS; principal; 2017-09-16)
PROC: B548ZZA Ultrasonography of Superior Vena Cava, Guidance (ICD-10-PCS; 2017-09-16)
PROC: 30233N1 Transfusion of Nonautologous Red Blood Cells into Peripheral Vein, Percutaneous Approach (ICD-10-PCS; 2017-09-18)
DX: A41.9 Sepsis, unspecified organism (principal); D69.6 Thrombocytopenia, unspecified; I11.0 Hypertensive heart disease with heart failure; I50.9 Heart failure, unspecified; J98.11 Atelectasis; K70.30 Alcoholic cirrhosis of liver without ascites; K92.2 Gastrointestinal hemorrhage, unspecified; L40.50 Arthropathic psoriasis, unspecified; D50.0 Iron deficiency anemia secondary to blood loss (chronic); L40.8 Other psoriasis; D68.9 Coagulation defect, unspecified; E11.9 Type 2 diabetes mellitus without complications; E78.00 Pure hypercholesterolemia, unspecified; E83.42 Hypomagnesemia; F10.20 Alcohol dependence, uncomplicated; I83.90 Asymptomatic varicose veins of unspecified lower extremity; J45.909 Unspecified asthma, uncomplicated; M06.9 Rheumatoid arthritis, unspecified; N19 Unspecified kidney failure; Z79.899 Other long term (current) drug therapy; Z87.01 Personal history of pneumonia (recurrent); Z87.11 Personal history of peptic ulcer disease; Z86.19 Personal history of other infectious and parasitic diseases

== ENCOUNTER 2017-10-15 08:17 | Inpatient (IN) | payer MEDICAID, MEDICARE ==
[2017-10-15 08:17] VITALS: BMI 29.8
--- NOTE | 2017-10-15 08:41 | C.PDOC ---
History Of Present Illness Patient is a 41 y/o male who presents to the ED with a complaint of swelling from the waist down with severe swelling to scrotum, and mild SOB. Patient reports to have been admitted to ICU 2-3 weeks ago for liver failure with sepsis and skin infection; patient was subsequently discharged home. Denies any chest pain. No other physical complaints at this time. Chief Complaint (Nursing): Abdominal Pain History Per: Patient History/Exam Limitations: no limitations Onset/Duration Of Symptoms: Days Current Symptoms Are (Timing): Still Present Associated Symptoms: Other (shortness of breath; swelling to lower extremities and scrotum ) Recent travel outside of the [place]: No Past Medical History Reviewed: Historical Data, Nursing Documentation, Vital Signs Vital Signs: Last Vital Signs Temp 98.3 F 10/15/17 15:00 Pulse 124 H 10/15/17 15:00 Resp 20 10/15/17 15:00 BP 152/80 H 10/15/17 16:00 Pulse Ox 100 10/15/17 15:00 - Medical History PMH: Anemia, Anxiety, Arthritis (psoriatic arthritis; b/l elb; fingers), Asthma , CHF, Depression, Diabetes, Gastrointestinal Ulcer, HTN, Hypercholesterolemia, Pneumonia, Rheumatoid Arthritis, Seizures (etoh induced) Denies: Hepatitis, HIV, Chronic Kidney Disease, Sexually Transmitted Disease Surgical History: Endoscopy - [facility] Procedures ALCOHOL DETOXIFICATION (05/28/13) CENTRAL VENOUS CATHETER PLACEMENT WITH GUIDANCE (01/31/14) CYSTOSCOPY NEC (06/08/13) DETOXIFICATION SERVICES FOR SUBSTANCE ABUSE TREATMENT (08/14/15) EXCISION OF ASCENDING COLON, ENDO, DIAGN (10/29/15) EXCISION OF STOMACH, ENDO, DIAGN (10/29/15) GROUP PSYCHOTHERAPY (04/21/16) INSERTION OF INFUSION DEV INTO SUP VENA CAVA, PERC APPROACH (09/08/17) INSPECTION OF UPPER INTESTINAL TRACT, ENDO (08/03/17) OTHER ENDOSCOPY OF SM INTEST (01/31/14) PACKED CELL TRANSFUSION (01/31/14) RETROGRADE PYELOGRAM (06/08/13) TRANSFUSE NONAUT FRESH PLASMA IN PERIPH VEIN, PERC (08/03/17) TRANSFUSE NONAUT FROZEN PLASMA IN PERIPH VEIN, PERC (05/06/15) TRANSFUSE NONAUT RED BLOOD CELLS IN PERIPH VEIN, PERC (09/08/17) ULTRASONOGRAPHY OF SUPERIOR VENA CAVA, GUIDANCE (09/08/17) Family History: States: Unknown Family Hx, Diabetes (Father) - Social History Hx Tobacco Use: No Hx Alcohol Use: Yes (former) Hx Substance Use: No - Immunization History Hx Tetanus Toxoid Vaccination: Yes Hx Influenza Vaccination: Yes Hx Pneumococcal Vaccination: Yes Review Of Systems Cardiovascular: Positive for: Edema (lower portion of body, severe swelling to scrotum ). Negative for: Chest Pain Respiratory: Positive for: Shortness of Breath (mild) Physical Exam - Physical Exam Appears: Well, Non-toxic, No Acute Distress Skin: Warm, Dry, Other (erythema and warmth of the pubic area, groins) Head: Atraumatic, Normacephalic Eye(s): bilateral: Normal Inspection Oral Mucosa: Moist Neck: Normal ROM Chest: Symmetrical, No Deformity, No Tenderness Cardiovascular: Rhythm Regular, No Murmur Respiratory: Normal Breath Sounds, No Rales, No Rhonchi, No Wheezing Gastrointestinal/Abdominal: No Tenderness, Distention Male Genital: Scrotal Swelling (severe scrotal swelling), Other (erythema of inguinal folds) Extremity: Swelling (severe LE edema) Neurological/Psych: Oriented x3, Normal Speech, Normal Cognition ED Course And Treatment - Laboratory Results Result Diagrams: 10/15/17 10:04 10/15/17 10:04 - Other Rad CXR X-Ray: Interpreted by Me, Viewed By Me Interpretation: Chest x-ray single frontal view. History: Shortness breath. Comparison: 09/08/2017. Findings: Mild venous congestion. Bilateral hilar prominence. Patchy increased markings in the right infrahilar region. Tortuous aorta. Top normal heart size. Impression: Mild venous congestion. Bilateral hilar prominence. Patchy increased markings in the right infrahilar region. Tortuous aorta. Progress Note: Blood work, EKG, UA ordered. Albuterol, PICC line, and nebulizer treatment administered. Case was d/w pt's PMD who accepted patient to his service for an admission. Disposition - Disposition Disposition: HOSPITALIZED Disposition Time: 11:55 Condition: FAIR - Clinical Impression Clinical Impression: Anasarca, Liver cirrhosis - Scribe Statement The provider has reviewed the documentation as recorded by the Scribradha Chawla All medical record entries made by the Scribe were at my direction and personally dictated by me. I have reviewed the chart and agree that the record accurately reflects my personal performance of the history, physical exam, medical decision making, and the department course for this patient. I have also personally directed, reviewed, and agree with the discharge instructions and disposition. Decision To Admit - Pt Status Changed To: Hospital Disposition Of: Inpatient - Admit Certification Admit to Inpatient:: After my assessment, the patient will require hospitalization for at least two midnights. This is because of the severity of symptoms shown, intensity of services needed, and/or the medical risk in this patient being treated as an outpatient. - InPatient: Physician Admission Certification:: Pt has severe anasarca, liver cirrhosis. He will need more than 2 days of hospitalization. - . Bed Request Type: Regular Admitting Physician: Damaris Edwards Patient Diagnosis: Anasarca, Liver cirrhosis
[2017-10-15] MEDS ORDERED: Albuterol-Ipratrop 3 mg / 0.5 (3 ml) UD IH STA (08:48)
[2017-10-15] MEDS ORDERED: Albuterol 0.083% Inhal Sol (2.5 mg/3 mL) UD INH STA (08:48)
--- NOTE | 2017-10-15 09:08 | RAD ---
Chest x-ray single frontal view History: Shortness breath. Comparison: 09/08/2017 Findings: Mild venous congestion. Bilateral hilar prominence. Patchy increased markings in the right infrahilar region. Tortuous aorta. Top normal heart size. Impression: Mild venous congestion. Bilateral hilar prominence. Patchy increased markings in the right infrahilar region. Tortuous aorta.
[2017-10-15] MEDS ORDERED: Albuterol-Ipratrop 3 mg / 0.5 (3 ml) UD ONE (09:20)
[2017-10-15] MEDS ORDERED: Albuterol 0.083% Inhal Sol (2.5 mg/3 mL) UD ONE (09:20)
[2017-10-15 10:12] LABS: BASO # 0.1 K/uL (0.0-0.2); BASO % 0.7 % (0.0-2.0); EOS # 0.5 K/uL (0.0-0.7); EOS % 4.2 % (0.0-4.0); HEMOGLOBIN 8.6 g/dL (12.0-18.0); LYMPH % 26.9 % (20.0-40.0); MEAN CELL VOLUME 87.9 fL (80.0-94.0); MEAN CORPUSCULAR HEMOGLOBIN 29.4 pg (27.0-31.0); MEAN CORPUSCULAR HGB CONC 33.5 g/dL (33.0-37.0); MEAN PLATELET VOLUME 7.1 fL (7.2-11.7); MONO # 1.1 K/uL (0.0-0.8); MONO % 9.7 % (0.0-10.0); NEUT # 6.5 K/uL (1.8-7.0); NEUT % 58.5 % (50.0-75.0); RBC 2.93 Mil/uL (4.40-5.90); RED CELL DISTRIBUTION WIDTH 18.9 % (11.5-14.5); WHITE BLOOD COUNT 11.1 K/uL (4.8-10.8)
[2017-10-15 10:22] LABS: INR 1.6; PROTHROMBIN TIME 17.3 SECONDS (9.7-12.2)
[2017-10-15 10:35] LABS: ALB/GLOB RATIO 0.6 (1.0-2.1); ALBUMIN 2.4 g/dL (3.5-5.0); ALT/SGPT 25 U/L (21-72); AMYLASE 221 U/L (30-110); AST/SGOT 51 U/L (17-59); BLOOD UREA NITROGEN 21 mg/dL (9-20); CALCIUM 8.2 mg/dl (8.6-10.4); GFR AFRICAN-AMERICAN 35; GFR NON-AFRICAN AMERICAN 29; LIPASE 834 U/L (23-300)
[2017-10-15 10:38] LABS: B-TYPE NATRIURETIC PEPTIDE 253 pg/mL (0-450); CK-MB 1.06 ng/mL (0.0-3.38)
[2017-10-15 11:22] LABS: SQUAMOUS EPITHIAL 1 /hpf (0-5); URINE BILIRUBIN 1+ (NEGATIVE); URINE BLOOD NEGATIVE (NEGATIVE); URINE CLARITY Clear (Clear); URINE COLOR Amber (YELLOW); URINE GLUCOSE (UA) NORMAL (Normal); URINE HYALINE CAST 0-2 /lpf (0-2); URINE LEUKOCYTE ESTERASE NEG Leu/uL (Negative); URINE PROTEIN NEGATIVE (NEGATIVE)
[2017-10-15] MEDS ORDERED: Albumin Human 25% (12.5 gm/50 ml) IV ONE (14:55)
[2017-10-15] MEDS: Albuterol-Ipratrop 3 mg / 0.5 (3 ml) UD INH SCH (20:41)
--- NOTE | 2017-10-16 00:40 | CP.PCM.HP ---
History of Present Illness - History of Present Illness History of Present Illness: chief concern: bilateral leg swelling scrotal swelling HPI: Patient is a 41yo male with past medical history of hypertension, alcohol- induced liver cirrhosis, hypertension, diabetes, psoriasis that presented with complaints of worsening abdominal swelling, leg swelling, unable to walk, scrotal swelling. Patient was having increasing shortn associated with the cough. No fever. Patient was not able to eat well. Nausea noted. Patient is having poor appetite, diarrhea on and off noted. Skin changes noted persistently Denies any headache. Patient was compliant with the medica But he was drinking at least to 2 months ago. Patient was recently hospitalized with rectal bleeding. received a multiple transfusion He was also eceived antibiotic. PMHx: as stated above PSHx: history of endoscopy/colonoscopy Allergies: NKDA Family hx: Father: history of heart transplant; Mother: hypertension/diabetes Social Hx: Daily alcohol consumption (~1pint of vodka per day), denies illicit drug use and former tobacco use Endoscopy hx: Endoscopy/Colonoscopy completed in 10/2015 - revealed grade 1 esophageal varices, LA Grade B Esophagitis, internal hemorrhoids, edema of the ascending colon ROS: the chart Vital signs reviewed No neck vein distention noted Chest good air entry bilaterally, no wheezing or rales noted CVS regular heart sound, no murmur noted abdominal distention noted pedal edema noted [employer] 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 patient overall prognosis is very poor, GI consultation Protonix patient admitted with acute on chronic liver insufficiency, ascites. Underlying SBP possible Acute bronchitis Fluid overload The start the patient on intraveno Lasix. Albumin. Diuretics Glucose control Will hold off antibiotic. Bronchodilator. Repeat blood test Overall prognosis guarded. Evaluation bygastroenterologist may be needed We will f/u The patient Present on Admission - Present on Admission Any Indicators Present on Admission: No History of DVT/PE: No History of Uncontrolled Diabetes: No Urinary Catheter: No Decubitus Ulcer Present: No Past Patient History - Infectious Disease Hx of Infectious Diseases: None - Past Medical History & Family History Past Medical History?: Yes - Past Social History Smoking Status: Never Smoked - CARDIAC Hx Congestive Heart Failure: Yes Hx Hypercholesterolemia: Yes Hx Hypertension: Yes - PULMONARY Hx Asthma: Yes Hx Pneumonia: Yes - NEUROLOGICAL Hx Seizures: Yes (etoh induced) - HEENT Hx HEENT Problems: No - RENAL Hx Chronic Kidney Disease: No - ENDOCRINE/METABOLIC Hx Endocrine Disorders: Yes Hx Diabetes Mellitus Type 2: Yes - HEMATOLOGICAL/ONCOLOGICAL Hx Anemia: Yes Hx Human Immunodeficiency Virus (HIV): No - INTEGUMENTARY Hx Dermatological Problems: Yes Hx Psoriasis: Yes Other/Comment: Psoriatic Arthritis - MUSCULOSKELETAL/RHEUMATOLOGICAL Hx Arthritis: Yes (psoriatic arthritis; b/l elb; fingers) Hx Rheumatoid Arthritis: Yes - GASTROINTESTINAL Other/Comment: Liver disease - GENITOURINARY/GYNECOLOGICAL Hx Sexually Transmitted Disorders: No - PSYCHIATRIC Hx Anxiety: Yes Hx Depression: Yes Hx Substance Use: No - SURGICAL HISTORY Hx Surgeries: No - ANESTHESIA Hx Anesthesia: Yes Hx Anesthesia Reactions: No Hx Malignant Hyperthermia: No Meds Allergies/Adverse Reactions: Allergies Allergy/AdvReac Type Severity Reaction Status Date / Time No Known Allergies Allergy Verified 10/15/17 08:27 Results - Vital Signs Recent Vital Signs: Last Vital Signs Temp 97.8 F 10/15/17 23:40 Pulse 100 H 10/15/17 23:40 Resp 20 10/15/17 23:40 BP 157/80 H 10/15/17 23:40 Pulse Ox 100 10/15/17 23:40 - Labs Result Diagrams: 10/15/17 10:04 10/15/17 10:04 Labs: Laboratory Results - last 24 hr 10/15/17 10/15/17 10/15/17 10:04 10:04 10:04 WBC 11.1 H RBC 2.93 L Hgb 8.6 L Hct 25.7 L MCV 87.9 MCH 29.4 MCHC 33.5 RDW 18.9 H Plt Count 94 L MPV 7.1 L Neut % (Auto) 58.5 Lymph % (Auto) 26.9 M[place]racken % (Auto) 9.7 Eos % (Auto) 4.2 H Baso % (Auto) 0.7 Neut # (Auto) 6.5 Lymph # (Auto) 3.0 [place]en # (Auto) 1.1 H Eos # (Auto) 0.5 Baso # (Auto) 0.1 PT INR APTT Sodium 136 Potassium 3.8 Chloride 105 Carbon Dioxide 19 L Anion Gap 15 BUN 21 H Creatinine 2.5 H Est GFR ( Amer) 35 Est GFR (Non-Af Amer) 29 POC Glucose (mg/dL) Random Glucose 137 H Lactic Acid 3.0 H Calcium 8.2 L Magnesium 1.4 L Total Bilirubin 2.1 H AST 51 ALT 25 Alkaline Phosphatase 171 H D Ammonia Total Creatine Kinase 105 CK-MB (Mass) 1.06 Troponin I 0.0300 NT-Pro-B Natriuret Pep 253 Total Protein 6.8 Albumin 2.4 L Globulin 4.4 H Albumin/Globulin Ratio 0.6 L Amylase 221 H D Lipase 834 H Urine Color Urine Clarity Urine pH Ur Specific [place] Urine Protein Urine Glucose (UA) Urine Ketones Urine Blood Urine Nitrate Urine Bilirubin Urine Urobilinogen Ur Leukocyte Esterase Urine WBC (Auto) Urine RBC (Auto) Ur Squamous Epith Cells Hyaline Casts Alcohol, Quantitative < 10 10/15/17 10/15/17 10/15/17 10:04 10:04 11:13 WBC RBC Hgb Hct MCV MCH MCHC RDW Plt Count MPV Neut % (Auto) Lymph % (Auto) [place] % (Auto) Eos % (Auto) Baso % (Auto) Neut # (Auto) Lymph # (Auto) [place] # (Auto) Eos # (Auto) Baso # (Auto) PT 17.3 H INR 1.6 APTT 36 H Sodium Potassium Chloride Carbon Dioxide Anion Gap BUN Creatinine Est GFR ( Amer) Est GFR (Non-Af Amer) POC Glucose (mg/dL) Random Glucose Lactic Acid Calcium Magnesium Total Bilirubin AST ALT Alkaline Phosphatase Ammonia 23 D Total Creatine Kinase CK-MB (Mass) Troponin I NT-Pro-B Natriuret Pep Total Protein Albumin Globulin Albumin/Globulin Ratio Amylase Lipase Urine Color Tammy Urine Clarity Clear Urine pH 5.0 Ur Specific [place] 1.016 Urine Protein Negative Urine Glucose (UA) Normal Urine Ketones Negative Urine Blood Negative Urine Nitrate Negative Urine Bilirubin 1+ H Urine Urobilinogen 2.0 Ur Leukocyte Esterase Neg Urine WBC (Auto) 3 Urine RBC (Auto) 1 Ur Squamous Epith Cells 1 Hyaline Casts 0-2 Alcohol, Quantitative 10/15/17 16:16 WBC RBC Hgb Hct MCV MCH MCHC RDW Plt Count MPV Neut % (Auto) Lymph % (Auto) [place] % (Auto) Eos % (Auto) Baso % (Auto) Neut # (Auto) Lymph # (Auto) [place] # (Auto) Eos # (Auto) Baso # (Auto) PT INR APTT Sodium Potassium Chloride Carbon Dioxide Anion Gap BUN Creatinine Est GFR ( Amer) Est GFR (Non-Af Amer) POC Glucose (mg/dL) 144 H Random Glucose Lactic Acid Calcium Magnesium Total Bilirubin AST ALT Alkaline Phosphatase Ammonia Total Creatine Kinase CK-MB (Mass) Troponin I NT-Pro-B Natriuret Pep Total Protein Albumin Globulin Albumin/Globulin Ratio Amylase Lipase Urine Color Urine Clarity Urine pH Ur Specific [place] Urine Protein Urine Glucose (UA) Urine Ketones Urine Blood Urine Nitrate Urine Bilirubin Urine Urobilinogen Ur Leukocyte Esterase Urine WBC (Auto) Urine RBC (Auto) Ur Squamous Epith Cells Hyaline Casts Alcohol, Quantitative
[2017-10-16] MEDS: Albuterol-Ipratrop 3 mg / 0.5 (3 ml) UD INH SCH ×4 (01:17→19:11)
[2017-10-16] MEDS ORDERED: Phytonadione 2.5 MG/0.5 TAB TAB PO SCH (10:00)
[2017-10-16] MEDS: Albumin Human 25% (12.5 gm/50 ml) IV SCH (10:08)
[2017-10-16 16:32] LABS: HEMOGLOBIN 8.1 g/dL (12.0-18.0); MEAN CELL VOLUME 86.8 fL (80.0-94.0); MEAN CORPUSCULAR HEMOGLOBIN 29.5 pg (27.0-31.0); MEAN PLATELET VOLUME 7.1 fL (7.2-11.7); RBC 2.73 Mil/uL (4.40-5.90); RED CELL DISTRIBUTION WIDTH 17.9 % (11.5-14.5); WHITE BLOOD COUNT 6.3 K/uL (4.8-10.8)
[2017-10-16 16:46] LABS: CALCIUM 8.3 mg/dl (8.6-10.4)
[2017-10-16] MEDS: Magnesium Sulfate 1 gm in D5W 1 GM/100 ML BAG IVPB SCH ×2 (18:56→19:32)
[2017-10-17] MEDS: Albuterol-Ipratrop 3 mg / 0.5 (3 ml) UD INH SCH ×4 (01:31→20:25)
[2017-10-17] MEDS: Albumin Human 25% (12.5 gm/50 ml) IV SCH (10:04)
[2017-10-18] MEDS: Albuterol-Ipratrop 3 mg / 0.5 (3 ml) UD INH SCH ×4 (01:21→20:03)
--- NOTE | 2017-10-18 07:43 | CP.PCM.PN ---
<Henri Irving - Last Filed: 10/18/17 07:40> Subjective - Date & Time of Evaluation Date of Evaluation: 10/18/17 Time of Evaluation: 07:40 - Subjective Subjective: Code star. Code star called about 720 am. Pt seen and examined at bedside. No acute distress. Vital signs stable. BP somewhat elevated, but yet to get bp meds for the day. Pt was walking around his bed to use commode and fell to ground. Pt fell on to his right side and broke his fall with right arm. Arm hurts slightly. Did not hit head. Pt was unsteady and fell, denies any preceding sx. Pt is AO x 3 A: Mechanical fall P: Check vital signs -reexamine shortly. Objective - Vital Signs/Intake and Output Vital Signs (last 24 hours): Temp Pulse Resp BP Pulse Ox 98.1 F 110 H 20 145/75 98 10/18/17 00:00 10/18/17 00:00 10/18/17 00:00 10/18/17 00:00 10/18/17 00:00 Intake and Output: 10/18/17 10/18/17 06:59 18:59 Intake Total 300 Output Total 400 Balance -100 - Medications Medications: Current Medications Albumin Human (Albumin Human 25% (12.5 Gm/50 Ml)) 12.5 gm IV DAILY [facility] Stop: 10/18/17 10:01 Last Admin: 10/17/17 10:04 Dose: 12.5 gm Albuterol/Ipratropium (Duoneb 3 Mg/0.5 Mg (3 Ml) Ud) 3 ml INH RQ6 [facility] Last Admin: 10/18/17 07:22 Dose: Not Given Furosemide (Lasix) 40 mg IVP DAILY [facility] Last Admin: 10/17/17 10:03 Dose: 40 mg Gabapentin (Neurontin) 100 mg PO BID [facility] Last Admin: 10/17/17 17:31 Dose: 100 mg Mirtazapine (Remeron) 30 mg PO HS [facility] Last Admin: 10/17/17 21:16 Dose: 30 mg Pantoprazole Sodium (Protonix Inj) 40 mg IVP DAILY [facility] Last Admin: 10/17/17 10:04 Dose: 40 mg Phytonadione (Vitamin K Tab) 5 mg PO DAILY [facility] Last Admin: 05/20/18 10:05 Dose: 5 mg Prednisone (Prednisone Tab) 20 mg PO DAILY [facility] Last Admin: 10/17/17 10:03 Dose: 20 mg Sertraline HCl (Zoloft) 100 mg PO BID [facility] Last Admin: 10/17/17 17:31 Dose: 100 mg Spironolactone (Aldactone) 50 mg PO DAILY [facility] Last Admin: 10/17/17 10:05 Dose: 50 mg - Labs Labs: 10/16/17 16:26 10/16/17 16:26 PT 17.3 SECONDS (9.7-12.2) H 10/15/17 10:04 INR 1.6 10/15/17 10:04 APTT 36 SECONDS (21-34) H 10/15/17 10:04 - Constitutional Appears: No Acute Distress - Head Exam Head Exam: ATRAUMATIC, NORMAL INSPECTION, NORMOCEPHALIC - Eye Exam Eye Exam: EOMI - ENT Exam ENT Exam: Mucous Membranes Moist - Respiratory Exam Respiratory Exam: NORMAL BREATHING PATTERN. absent: Respiratory Distress - Cardiovascular Exam Cardiovascular Exam: +S1, +S2 - GI/Abdominal Exam GI & Abdominal Exam: Soft, Normal Bowel Sounds. absent: Tenderness - Extremities Exam Extremities Exam: Full ROM, Normal Inspection - Back Exam Back Exam: NORMAL INSPECTION - Neurological Exam Neurological Exam: Alert, Awake, Oriented x3 - Psychiatric Exam Psychiatric exam: Normal Affect, Normal Mood - Skin Skin Exam: Dry, Intact, Normal Color, Warm Assessment and Plan - Assessment and Plan (Free Text) Assessment: 41 yo male with code star called -no need for head ct at this time -fall precautions -needs help from nurse for traveling to commode -recheck shortly. <Edy Soto - Last Filed: 10/26/17 08:10> Objective - Vital Signs/Intake and Output Vital Signs (last 24 hours): Temp Pulse Resp BP Pulse Ox 98.4 F 94 H 20 144/85 95 10/26/17 07:21 10/26/17 07:21 10/26/17 07:21 10/26/17 07:21 10/26/17 07:21 Intake and Output: 10/26/17 10/26/17 06:59 18:59 Intake Total 200 200 Balance 200 200 - Medications Medications: Current Medications Albuterol/Ipratropium (Duoneb 3 Mg/0.5 Mg (3 Ml) Ud) 3 ml INH RQ6 [facility] Last Admin: 10/26/17 07:31 Dose: Not Given Furosemide (Lasix) 40 mg IVP Q12 [facility] Last Admin: 10/25/17 21:53 Dose: 40 mg Lactulose (Enulose) 20 gm PO Q8 [facility] Last Admin: 10/26/17 06:03 Dose: 20 gm Pantoprazole Sodium (Protonix Ec Tab) 40 mg PO DAILY [facility] Last Admin: 10/25/17 11:01 Dose: 40 mg Potassium Chloride (Potassium Chloride Oral Soln) 40 meq PO DAILY [facility] Last Admin: 10/25/17 15:00 Dose: 40 meq Propranolol HCl (Inderal) 5 mg PO TID [facility] Last Admin: 10/25/17 19:03 Dose: 5 mg Spironolactone (Aldactone) 50 mg PO DAILY [facility] Last Admin: 10/25/17 11:01 Dose: 50 mg - Labs Labs: 10/25/17 08:07 10/25/17 08:07 PT 17.3 SECONDS (9.7-12.2) H 10/15/17 10:04 INR 1.6 10/15/17 10:04 APTT 36 SECONDS (21-34) H 10/15/17 10:04 Attending/Attestation - Attestation I have personally seen and examined this patient.: Yes I have fully participated in the care of the patient.: Yes I have reviewed all pertinent clinical information, including history, physical exam and plan: Yes
--- NOTE | 2017-10-18 10:32 | RAD ---
PROCEDURE: Right Knee Radiographs. HISTORY: right knee pain , s/p fall today COMPARISON: None. FINDINGS: BONES: No acute fracture. JOINTS: Unremarkable. JOINT EFFUSION: None. OTHER FINDINGS: None. IMPRESSION: No demonstrated fracture or dislocation.
[2017-10-18] MEDS: Albumin Human 25% (12.5 gm/50 ml) IV SCH (11:00)
[2017-10-19] MEDS: Albuterol-Ipratrop 3 mg / 0.5 (3 ml) UD INH SCH ×4 (01:20→20:55)
--- NOTE | 2017-10-19 07:49 | CP.PCM.PN ---
Subjective - Date & Time of Evaluation Date of Evaluation: 10/17/17 Time of Evaluation: 07:49 - Subjective Subjective: Patient continues to have pain around the scrotal area, also complaining of leg swelling. Weakness noted. Cough present. No chest pain, no shortness of breath. Patient is eating well, blood sugar is controlled good. On examination: Vital signs stable. Chest good air entry bilaterally regular heart sound. Abdominal swelling, bilateral leg edema noted. Labs reviewed. Assessment and recommendation: 41-year-old male came to the hospital with the decompensated liver cirrhosis, bilateral pedal edema. Anemia. Coagulopathy. Psoriasis, rheumatoid arthritis. Diabetes. Will continue the current treatment Objective - Vital Signs/Intake and Output Vital Signs (last 24 hours): Temp Pulse Resp BP Pulse Ox 98.1 F 113 H 20 151/90 H 100 10/18/17 23:45 10/18/17 23:45 10/18/17 23:45 10/18/17 23:45 10/18/17 23:45 Intake and Output: 10/19/17 10/19/17 06:59 18:59 Intake Total 850 Output Total 50 Balance 800 - Medications Medications: Current Medications Albuterol/Ipratropium (Duoneb 3 Mg/0.5 Mg (3 Ml) Ud) 3 ml INH RQ6 [facility] Last Admin: 10/19/17 07:19 Dose: Not Given Furosemide (Lasix) 40 mg IVP DAILY [facility] Last Admin: 10/18/17 10:34 Dose: 40 mg Gabapentin (Neurontin) 100 mg PO BID [facility] Last Admin: 10/18/17 17:30 Dose: 100 mg Mirtazapine (Remeron) 30 mg PO HS [facility] Last Admin: 10/18/17 21:11 Dose: 30 mg Pantoprazole Sodium (Protonix Inj) 40 mg IVP DAILY [facility] Last Admin: 10/18/17 10:36 Dose: 40 mg Phytonadione (Vitamin K Tab) 5 mg PO DAILY [facility] Last Admin: 10/18/17 10:34 Dose: 5 mg Sertraline HCl (Zoloft) 50 mg PO DAILY [facility] Spironolactone (Aldactone) 50 mg PO DAILY [facility] Last Admin: 10/18/17 10:34 Dose: 50 mg - Labs Labs: 10/16/17 16:26 10/16/17 16:26 PT 17.3 SECONDS (9.7-12.2) H 10/15/17 10:04 INR 1.6 10/15/17 10:04 APTT 36 SECONDS (21-34) H 10/15/17 10:04
--- NOTE | 2017-10-19 07:49 | CP.PCM.PN ---
Subjective - Date & Time of Evaluation Date of Evaluation: 10/16/17 Time of Evaluation: 07:48 - Subjective Subjective: Patient continues to have pain around the scrotal area, also complaining of leg swelling. Weakness noted. Cough present. No chest pain, no shortness of breath. Patient is eating well, blood sugar is controlled good. On examination: Vital signs stable. Chest good air entry bilaterally regular heart sound. Abdominal swelling, bilateral leg edema noted. Labs reviewed. Assessment and recommendation: 41-year-old male came to the hospital with the decompensated liver cirrhosis, bilateral pedal edema. Anemia. Coagulopathy. Psoriasis, rheumatoid arthritis. Diabetes. Will continue the current treatment Objective - Vital Signs/Intake and Output Vital Signs (last 24 hours): Temp Pulse Resp BP Pulse Ox 98.1 F 113 H 20 151/90 H 100 10/18/17 23:45 10/18/17 23:45 10/18/17 23:45 10/18/17 23:45 10/18/17 23:45 Intake and Output: 10/19/17 10/19/17 06:59 18:59 Intake Total 850 Output Total 50 Balance 800 - Medications Medications: Current Medications Albuterol/Ipratropium (Duoneb 3 Mg/0.5 Mg (3 Ml) Ud) 3 ml INH RQ6 [facility] Last Admin: 10/19/17 07:19 Dose: Not Given Furosemide (Lasix) 40 mg IVP DAILY [facility] Last Admin: 10/18/17 10:34 Dose: 40 mg Gabapentin (Neurontin) 100 mg PO BID [facility] Last Admin: 10/18/17 17:30 Dose: 100 mg Mirtazapine (Remeron) 30 mg PO HS [facility] Last Admin: 10/18/17 21:11 Dose: 30 mg Pantoprazole Sodium (Protonix Inj) 40 mg IVP DAILY [facility] Last Admin: 10/18/17 10:36 Dose: 40 mg Phytonadione (Vitamin K Tab) 5 mg PO DAILY [facility] Last Admin: 10/18/17 10:34 Dose: 5 mg Sertraline HCl (Zoloft) 50 mg PO DAILY [facility] Spironolactone (Aldactone) 50 mg PO DAILY [facility] Last Admin: 10/18/17 10:34 Dose: 50 mg - Labs Labs: 10/16/17 16:26 10/16/17 16:26 PT 17.3 SECONDS (9.7-12.2) H 10/15/17 10:04 INR 1.6 10/15/17 10:04 APTT 36 SECONDS (21-34) H 10/15/17 10:04
[2017-10-19 07:50] LABS: CALCIUM 7.8 mg/dl (8.6-10.4)
--- NOTE | 2017-10-19 07:50 | CP.PCM.PN ---
Subjective - Date & Time of Evaluation Date of Evaluation: 10/18/17 Time of Evaluation: 07:49 - Subjective Subjective: Patient continues to have pain around the scrotal area, also complaining of leg swelling. Weakness noted. Cough present. No chest pain, no shortness of breath. Patient is eating well, blood sugar is controlled good. But patient is currently sleeping. He has no pain. But having discomfort in the scrotal region On examination: Vital signs stable. Chest good air entry bilaterally regular heart sound. Abdominal swelling, bilateral leg edema noted. Patient has a edema in the scrotal area, leg swelling is decreasing. Labs reviewed. Assessment and recommendation: 41-year-old male came to the hospital with the decompensated liver cirrhosis, bilateral pedal edema. Anemia. Coagulopathy. Psoriasis, rheumatoid arthritis. Diabetes. Will continue the current treatment. Will discontinue the albumin Continue IV Lasix Objective - Vital Signs/Intake and Output Vital Signs (last 24 hours): Temp Pulse Resp BP Pulse Ox 98.1 F 113 H 20 151/90 H 100 10/18/17 23:45 10/18/17 23:45 10/18/17 23:45 10/18/17 23:45 10/18/17 23:45 Intake and Output: 10/19/17 10/19/17 06:59 18:59 Intake Total 850 Output Total 50 Balance 800 - Medications Medications: Current Medications Albuterol/Ipratropium (Duoneb 3 Mg/0.5 Mg (3 Ml) Ud) 3 ml INH RQ6 [facility] Last Admin: 10/19/17 07:19 Dose: Not Given Furosemide (Lasix) 40 mg IVP DAILY [facility] Last Admin: 10/18/17 10:34 Dose: 40 mg Gabapentin (Neurontin) 100 mg PO BID [facility] Last Admin: 10/18/17 17:30 Dose: 100 mg Mirtazapine (Remeron) 30 mg PO HS [facility] Last Admin: 10/18/17 21:11 Dose: 30 mg Pantoprazole Sodium (Protonix Inj) 40 mg IVP DAILY [facility] Last Admin: 10/18/17 10:36 Dose: 40 mg Phytonadione (Vitamin K Tab) 5 mg PO DAILY [facility] Last Admin: 10/18/17 10:34 Dose: 5 mg Sertraline HCl (Zoloft) 50 mg PO DAILY [facility] Spironolactone (Aldactone) 50 mg PO DAILY [facility] Last Admin: 10/18/17 10:34 Dose: 50 mg - Labs Labs: 10/16/17 16:26 10/16/17 16:26 PT 17.3 SECONDS (9.7-12.2) H 10/15/17 10:04 INR 1.6 10/15/17 10:04 APTT 36 SECONDS (21-34) H 10/15/17 10:04
[2017-10-19 08:02] LABS: BASO # 0.1 K/uL (0.0-0.2); BASO % 0.6 % (0.0-2.0); EOS # 0.8 K/uL (0.0-0.7); EOS % 7.3 % (0.0-4.0); HEMOGLOBIN 7.4 g/dL (12.0-18.0); LYMPH # 3.4 K/uL (1.0-4.3); MEAN CELL VOLUME 88.7 fL (80.0-94.0); MEAN CORPUSCULAR HGB CONC 33.8 g/dL (33.0-37.0); MEAN PLATELET VOLUME 7.1 fL (7.2-11.7); MONO # 1.1 K/uL (0.0-0.8); MONO % 11.1 % (0.0-10.0); RBC 2.46 Mil/uL (4.40-5.90); RED CELL DISTRIBUTION WIDTH 18.8 % (11.5-14.5)
[2017-10-19 08:07] LABS: ALBUMIN 2.6 g/dL (3.5-5.0)
[2017-10-19 08:15] LABS: WHITE BLOOD COUNT 10.3 K/uL (4.8-10.8)
--- NOTE | 2017-10-19 15:29 | CARD ---
APPROVED REPORT EKG Measurement Heart [id number] [place] [id number] [id number] <Conclusion> Sinus tachycardia Low voltage in precordial leads Abnormal ECG
[2017-10-20] MEDS: Albuterol-Ipratrop 3 mg / 0.5 (3 ml) UD INH SCH ×4 (01:57→19:57)
[2017-10-20] MEDS: Pantoprazole 40 mg EC Tab PO SCH (10:34)
--- NOTE | 2017-10-20 11:48 | US ---
HISTORY: hydrocele TECHNIQUE: Realtime sonography through the scrotum with color and doppler flow. COMPARISON: None Available. FINDINGS: RIGHT TESTICLE: Measures 3.7 x 2.3 x 2.3 cm. Homogeneous echotexture. No mass. Normal flow. RIGHT EPIDIDYMIS: Normal size, morphology and vascularity. LEFT TESTICLE: Measures 3.7 x 2.2 x 2.4 cm. Homogeneous echotexture. No mass. Normal flow. LEFT EPIDIDYMIS: Normal size, morphology and vascularity HYDROCELE: None. VARICOCELE: None. OTHER FINDINGS: Marked edema of the scrotal sac, diffuse. IMPRESSION: Scrotal edema, nonspecific. No evidence of testicular torsion or epididymo-orchitis.
[2017-10-20 14:08] LABS: BASO # 0.1 K/uL (0.0-0.2); BASO % 0.7 % (0.0-2.0); EOS # 0.6 K/uL (0.0-0.7); EOS % 7.4 % (0.0-4.0); HEMOGLOBIN 8.7 g/dL (12.0-18.0); LYMPH # 1.6 K/uL (1.0-4.3); LYMPH % 21.4 % (20.0-40.0); MEAN CELL VOLUME 89.2 fL (80.0-94.0); MEAN CORPUSCULAR HEMOGLOBIN 29.8 pg (27.0-31.0); MEAN CORPUSCULAR HGB CONC 33.4 g/dL (33.0-37.0); MEAN PLATELET VOLUME 6.9 fL (7.2-11.7); MONO # 0.7 K/uL (0.0-0.8); MONO % 8.7 % (0.0-10.0); NEUT # 4.7 K/uL (1.8-7.0); NEUT % 61.8 % (50.0-75.0); NRBC % 0.1 % (0.0-2.0); RBC 2.93 Mil/uL (4.40-5.90); RED CELL DISTRIBUTION WIDTH 18.4 % (11.5-14.5); WHITE BLOOD COUNT 7.7 K/uL (4.8-10.8)
[2017-10-20 14:17] LABS: BLOOD UREA NITROGEN 14 mg/dL (9-20); CALCIUM 7.9 mg/dl (8.6-10.4); GFR AFRICAN-AMERICAN > 60; GFR NON-AFRICAN AMERICAN 52
[2017-10-21] MEDS: Pantoprazole 40 mg EC Tab PO SCH (09:31)
[2017-10-22] MEDS: Pantoprazole 40 mg EC Tab PO SCH (10:34)
--- NOTE | 2017-10-22 22:34 | CP.PCM.PN ---
Subjective - Date & Time of Evaluation Date of Evaluation: 10/22/17 Time of Evaluation: 22:53 - Subjective Subjective: Patient is feeling weak. Denies any chest pain. Poorly eating. Leg swelling noted. Will increase the Lasix and diuretics and will follow the patient Objective - Vital Signs/Intake and Output Vital Signs (last 24 hours): Temp Pulse Resp BP Pulse Ox 99.1 F 135 H 20 150/82 97 10/22/17 15:00 10/22/17 15:00 10/22/17 15:00 10/22/17 22:10 10/22/17 15:00 Intake and Output: 10/22/17 10/23/17 18:59 06:59 Intake Total 240 Balance 240 - Medications Medications: Current Medications Albuterol/Ipratropium (Duoneb 3 Mg/0.5 Mg (3 Ml) Ud) 3 ml INH RQ6 [facility] Furosemide (Lasix) 40 mg IVP Q12 [facility] Last Admin: 10/22/17 22:10 Dose: 40 mg Gabapentin (Neurontin) 100 mg PO BID [facility] Last Admin: 10/22/17 18:23 Dose: 100 mg Mirtazapine (Remeron) 7.5 mg PO HS [facility] Pantoprazole Sodium (Protonix Ec Tab) 40 mg PO DAILY [facility] Last Admin: 10/22/17 10:34 Dose: 40 mg Phytonadione (Vitamin K Tab) 5 mg PO DAILY [facility] Last Admin: 10/22/17 10:35 Dose: 5 mg Sertraline HCl (Zoloft) 50 mg PO DAILY [facility] Last Admin: 10/22/17 10:34 Dose: 50 mg Spironolactone (Aldactone) 50 mg PO DAILY [facility] Last Admin: 10/22/17 10:35 Dose: 50 mg - Labs Labs: 10/20/17 14:02 10/20/17 14:02 PT 17.3 SECONDS (9.7-12.2) H 10/15/17 10:04 INR 1.6 10/15/17 10:04 APTT 36 SECONDS (21-34) H 10/15/17 10:04
[2017-10-23] MEDS: Albuterol-Ipratrop 3 mg / 0.5 (3 ml) UD INH SCH ×3 (07:28→19:27)
[2017-10-23 07:43] LABS: BASO # 0.1 K/uL (0.0-0.2); BASO % 0.7 % (0.0-2.0); EOS # 0.2 K/uL (0.0-0.7); HEMOGLOBIN 9.3 g/dL (12.0-18.0); LYMPH # 2.5 K/uL (1.0-4.3); LYMPH % 24.8 % (20.0-40.0); MEAN CELL VOLUME 88.7 fL (80.0-94.0); MEAN CORPUSCULAR HGB CONC 33.8 g/dL (33.0-37.0); MEAN PLATELET VOLUME 7.6 fL (7.2-11.7); MONO # 1.3 K/uL (0.0-0.8); MONO % 12.8 % (0.0-10.0); NEUT % 59.7 % (50.0-75.0); NRBC % 0.1 % (0.0-2.0); RBC 3.09 Mil/uL (4.40-5.90); RED CELL DISTRIBUTION WIDTH 19.1 % (11.5-14.5)
[2017-10-23 07:58] LABS: ALB/GLOB RATIO 0.6 (1.0-2.1); ALBUMIN 2.4 g/dL (3.5-5.0); ALT/SGPT 34 U/L (21-72); AST/SGOT 58 U/L (17-59); BLOOD UREA NITROGEN 15 mg/dL (9-20); CALCIUM 8.1 mg/dl (8.6-10.4); GFR AFRICAN-AMERICAN > 60; GFR NON-AFRICAN AMERICAN 52
[2017-10-23] MEDS: Propranolol 5 mg Tab PO SCH ×3 (10:04→18:17)
[2017-10-23] MEDS: Pantoprazole 40 mg EC Tab PO SCH (10:05)
[2017-10-23] MEDS: Magnesium Sulfate 1 gm in D5W 1 GM/100 ML BAG IVPB SCH ×2 (14:00→14:41)
[2017-10-24] MEDS: Albuterol-Ipratrop 3 mg / 0.5 (3 ml) UD INH SCH ×4 (01:07→19:06)
[2017-10-24] MEDS: Propranolol 5 mg Tab PO SCH ×3 (10:08→18:34)
[2017-10-24] MEDS: Pantoprazole 40 mg EC Tab PO SCH (10:08)
--- NOTE | 2017-10-24 10:19 | CT ---
PROCEDURE: CT HEAD WITHOUT CONTRAST. HISTORY: headache ?bleed COMPARISON: Unenhanced head CT 08/03/2017. TECHNIQUE: Axial computed tomography images were obtained through the head/brain without intravenous contrast. Radiation dose: Total exam DLP = 1032.57 mGy-cm. This CT exam was performed using one or more of the following dose reduction techniques: Automated exposure control, adjustment of the mA and/or kV according to patient size, and/or use of iterative reconstruction technique. FINDINGS: HEMORRHAGE: No intracranial hemorrhage. BRAIN: Normal [place]-white matter differentiation and density are appreciated throughout the cerebrum and cerebellum with the brainstem appearing unremarkable as well. There is no mass effect. There is no suspicious extra-axial fluid collection and the midline brain anatomy appears diffusely unremarkable. VENTRICLES: Unremarkable. No hydrocephalus. CALVARIUM: Unremarkable. PARANASAL SINUSES: Unremarkable as visualized. No significant inflammatory changes. MASTOID AIR CELLS: Unremarkable as visualized. No inflammatory changes. OTHER FINDINGS: None. IMPRESSION: Stable unremarkable unenhanced head CT.
--- NOTE | 2017-10-24 17:06 | CP.PCM.PN ---
Subjective - Date & Time of Evaluation Date of Evaluation: 10/24/17 Time of Evaluation: 17:06 - Subjective Subjective: Patient has a cough. Shortness of breath noted. Abdominal distention noted, scrotal swelling noted Leg edema noted Vital signs stable. Chest good air entry irregular heart so nontender abdomen distention noted Edema noted Assessment and recommendation: 41-year-old male admitted to the hospital with the liver enzymes elevation, hepatitis. Fluid overload. Sepsis. Will follow the patient. On antibiotic, diuretics. Objective - Vital Signs/Intake and Output Vital Signs (last 24 hours): Temp Pulse Resp BP Pulse Ox 98.8 F 97 H 20 164/90 H 98 10/24/17 08:00 10/24/17 08:00 10/24/17 08:00 10/24/17 10:08 10/24/17 08:00 Intake and Output: 10/24/17 10/24/17 06:59 18:59 Intake Total 250 480 Balance 250 480 - Medications Medications: Current Medications Albuterol/Ipratropium (Duoneb 3 Mg/0.5 Mg (3 Ml) Ud) 3 ml INH RQ6 [facility] Last Admin: 10/24/17 13:25 Dose: Not Given Furosemide (Lasix) 40 mg IVP Q12 [facility] Last Admin: 10/24/17 10:08 Dose: 40 mg Lactulose (Enulose) 20 gm PO Q8 [facility] Last Admin: 10/24/17 14:56 Dose: 20 gm Pantoprazole Sodium (Protonix Ec Tab) 40 mg PO DAILY [facility] Last Admin: 10/24/17 10:08 Dose: 40 mg Propranolol HCl (Inderal) 5 mg PO TID [facility] Last Admin: 10/24/17 14:56 Dose: 5 mg Spironolactone (Aldactone) 50 mg PO DAILY [facility] Last Admin: 10/24/17 10:08 Dose: 50 mg - Labs Labs: 10/23/17 07:12 10/23/17 07:12 PT 17.3 SECONDS (9.7-12.2) H 10/15/17 10:04 INR 1.6 10/15/17 10:04 APTT 36 SECONDS (21-34) H 10/15/17 10:04
--- NOTE | 2017-10-24 17:06 | CP.PCM.PN ---
Subjective - Date & Time of Evaluation Date of Evaluation: 10/23/17 Time of Evaluation: 22:54 - Subjective Subjective: Patient has a cough. Shortness of breath noted. Abdominal distention noted, scrotal swelling noted Leg edema noted Vital signs stable. Chest good air entry irregular heart so nontender abdomen distention noted Edema noted Assessment and recommendation: 41-year-old male admitted to the hospital with the liver enzymes elevation, hepatitis. Fluid overload. Sepsis. Will follow the patient. On antibiotic, diuretics. Objective - Vital Signs/Intake and Output Vital Signs (last 24 hours): Temp Pulse Resp BP Pulse Ox 98.8 F 97 H 20 164/90 H 98 10/24/17 08:00 10/24/17 08:00 10/24/17 08:00 10/24/17 10:08 10/24/17 08:00 Intake and Output: 10/24/17 10/24/17 06:59 18:59 Intake Total 250 480 Balance 250 480 - Medications Medications: Current Medications Albuterol/Ipratropium (Duoneb 3 Mg/0.5 Mg (3 Ml) Ud) 3 ml INH RQ6 [facility] Last Admin: 10/24/17 13:25 Dose: Not Given Furosemide (Lasix) 40 mg IVP Q12 [facility] Last Admin: 10/24/17 10:08 Dose: 40 mg Lactulose (Enulose) 20 gm PO Q8 [facility] Last Admin: 10/24/17 14:56 Dose: 20 gm Pantoprazole Sodium (Protonix Ec Tab) 40 mg PO DAILY [facility] Last Admin: 10/24/17 10:08 Dose: 40 mg Propranolol HCl (Inderal) 5 mg PO TID [facility] Last Admin: 10/24/17 14:56 Dose: 5 mg Spironolactone (Aldactone) 50 mg PO DAILY [facility] Last Admin: 10/24/17 10:08 Dose: 50 mg - Labs Labs: 10/23/17 07:12 10/23/17 07:12 PT 17.3 SECONDS (9.7-12.2) H 10/15/17 10:04 INR 1.6 10/15/17 10:04 APTT 36 SECONDS (21-34) H 10/15/17 10:04
[2017-10-25] MEDS: Albuterol-Ipratrop 3 mg / 0.5 (3 ml) UD INH SCH ×4 (01:42→20:49)
[2017-10-25 08:18] LABS: BASO # 0.1 K/uL (0.0-0.2); BASO % 0.6 % (0.0-2.0); EOS # 1.2 K/uL (0.0-0.7); HEMOGLOBIN 8.1 g/dL (12.0-18.0); LYMPH # 2.5 K/uL (1.0-4.3); LYMPH % 24.3 % (20.0-40.0); MEAN CELL VOLUME 88.2 fL (80.0-94.0); MEAN CORPUSCULAR HEMOGLOBIN 30.3 pg (27.0-31.0); MEAN CORPUSCULAR HGB CONC 34.3 g/dL (33.0-37.0); MEAN PLATELET VOLUME 7.8 fL (7.2-11.7); MONO # 1.2 K/uL (0.0-0.8); MONO % 11.7 % (0.0-10.0); NEUT # 5.3 K/uL (1.8-7.0); NEUT % 51.4 % (50.0-75.0); NRBC % 0.1 % (0.0-2.0); RBC 2.66 Mil/uL (4.40-5.90); WHITE BLOOD COUNT 10.2 K/uL (4.8-10.8)
[2017-10-25 08:35] LABS: ALB/GLOB RATIO 0.6 (1.0-2.1); ALBUMIN 2.3 g/dL (3.5-5.0); ALT/SGPT 23 U/L (21-72); AST/SGOT 54 U/L (17-59); BLOOD UREA NITROGEN 13 mg/dL (9-20); CALCIUM 7.2 mg/dl (8.6-10.4); GFR AFRICAN-AMERICAN > 60; GFR NON-AFRICAN AMERICAN > 60
[2017-10-25] MEDS: Pantoprazole 40 mg EC Tab PO SCH (11:01)
[2017-10-25] MEDS: Propranolol 5 mg Tab PO SCH ×3 (11:03→19:03)
[2017-10-25] MEDS: Potassium Chloride 20 mEq/15 ml LIQ UD PO SCH (15:00)
[2017-10-25] MEDS: Magnesium Sulfate 1 gm in D5W 1 GM/100 ML BAG IVPB SCH ×2 (15:00→15:24)
--- NOTE | 2017-10-25 18:59 | CP.PCM.PN ---
Subjective - Date & Time of Evaluation Date of Evaluation: 10/25/17 Time of Evaluation: 18:58 - Subjective Subjective: Patient today is more awake than yesterday. He is not feeling well yet. Still having no operative He has no chest pain. Having some mild discomfort in the chest, and also abdominal discomfort noted. Had a BM Leg swelling still noted Also scrotal swelling present On examination: Vital signs stable. Chest good air entry bilaterally Abdomen or distention noted, edema in the bilateral legs noted [employer] alert awake oriented. Labs reviewed Low magnesium level noted, WBC stable, hemoglobin is stable Assessment and recommendation: 41-year-old male with alcoholic liver disease. Admitted with alcoholic hepatitis worsening. Also sepsis. Now had an episode of hepatic encephalopathy, improving. We will hold off the benzodiazepines. Magnesium supplementation. Currently off antibiotic. Physical therapy. On IV Lasix. Objective - Vital Signs/Intake and Output Vital Signs (last 24 hours): Temp Pulse Resp BP Pulse Ox 99.8 F H 100 H 20 136/78 96 10/25/17 16:00 10/25/17 16:00 10/25/17 16:00 10/25/17 16:00 10/25/17 16:00 Intake and Output: 10/25/17 10/25/17 06:59 18:59 Intake Total 740 680 Balance 740 680 - Medications Medications: Current Medications Albuterol/Ipratropium (Duoneb 3 Mg/0.5 Mg (3 Ml) Ud) 3 ml INH RQ6 [facility] Last Admin: 10/25/17 14:35 Dose: Not Given Furosemide (Lasix) 40 mg IVP Q12 [facility] Last Admin: 10/25/17 11:01 Dose: 40 mg Lactulose (Enulose) 20 gm PO Q8 [facility] Last Admin: 10/25/17 15:00 Dose: 20 gm Pantoprazole Sodium (Protonix Ec Tab) 40 mg PO DAILY [facility] Last Admin: 10/25/17 11:01 Dose: 40 mg Potassium Chloride (Potassium Chloride Oral Soln) 40 meq PO DAILY [facility] Last Admin: 10/25/17 15:00 Dose: 40 meq Propranolol HCl (Inderal) 5 mg PO TID [facility] Last Admin: 10/25/17 15:00 Dose: 5 mg Spironolactone (Aldactone) 50 mg PO DAILY [facility] Last Admin: 10/25/17 11:01 Dose: 50 mg - Labs Labs: 10/25/17 08:07 10/25/17 08:07 PT 17.3 SECONDS (9.7-12.2) H 10/15/17 10:04 INR 1.6 10/15/17 10:04 APTT 36 SECONDS (21-34) H 10/15/17 10:04
[2017-10-26] MEDS: Albuterol-Ipratrop 3 mg / 0.5 (3 ml) UD INH SCH ×3 (01:41→13:53)
[2017-10-26] MEDS ORDERED: Potassium Chloride 20 mEq/15 ml LIQ UD PO ONE (15:06)
[2017-10-26] MEDS: Propranolol 5 mg Tab PO SCH (18:06)
[2017-10-26] MEDS: Lidocaine 5% Patch TD SCH (20:35)
--- NOTE | 2017-10-26 20:38 | CP.PCM.PN ---
Subjective - Date & Time of Evaluation Date of Evaluation: 10/26/17 Time of Evaluation: 20:33 - Subjective Subjective: The patient is still on the bed. he did not able to get up. he did not participate in physical therapy. Mostly on the bed. Complaining of right knee pain, right ankle pain. The swelling is better. Patient is scrotal swelling also improving. On examination: Vital signs stable. Chest good air entry bilaterally, minimal wheezing noted, regular heart sound, abdomen soft nontender bilateral pedal edema noted. No labs today. Ration is awake and responding. Assessment and recommendation: 41-year-old male with alcoholic liver disease, liver cirrhosis admitted with decompensated liver disease. Hepatic and supposedly. Improving. Bilateral pedal edema, anasarca, scrotal edema. Psoriasis, diabetes. Renal insufficiency. We'll repeat the labs. Physical therapy. Right knee evaluation with the x-ray. Physical therapy. We'll possibly plan for discharge if clinically stable by physical evaluation and therapy. Objective - Vital Signs/Intake and Output Vital Signs (last 24 hours): Temp Pulse Resp BP Pulse Ox 98.7 F 96 H 20 147/88 98 10/26/17 16:00 10/26/17 18:06 10/26/17 16:00 10/26/17 18:06 10/26/17 16:00 Intake and Output: 10/26/17 10/27/17 18:59 06:59 Intake Total 200 Balance 200 - Medications Medications: Current Medications Albuterol/Ipratropium (Duoneb 3 Mg/0.5 Mg (3 Ml) Ud) 3 ml INH RQ6 [facility] Last Admin: 10/26/17 13:53 Dose: Not Given Furosemide (Lasix) 40 mg IVP Q12 [facility] Last Admin: 10/25/17 21:53 Dose: 40 mg Lactulose (Enulose) 20 gm PO Q8 [facility] Last Admin: 10/26/17 06:03 Dose: 20 gm Lidocaine (Lidoderm) 1 ea TD Q24H [facility]S AT [facility] Pantoprazole Sodium (Protonix Ec Tab) 40 mg PO DAILY [facility] Last Admin: 10/25/17 11:01 Dose: 40 mg Potassium Chloride (Potassium Chloride Oral Soln) 40 meq PO DAILY [facility] Last Admin: 10/25/17 15:00 Dose: 40 meq Propranolol HCl (Inderal) 5 mg PO TID [facility] Last Admin: 10/26/17 18:06 Dose: 5 mg Spironolactone (Aldactone) 50 mg PO DAILY [facility] Last Admin: 10/25/17 11:01 Dose: 50 mg - Labs Labs: 10/25/17 08:07 10/25/17 08:07 PT 17.3 SECONDS (9.7-12.2) H 10/15/17 10:04 INR 1.6 10/15/17 10:04 APTT 36 SECONDS (21-34) H 10/15/17 10:04
[2017-10-27] MEDS: Albuterol-Ipratrop 3 mg / 0.5 (3 ml) UD INH SCH ×4 (01:44→20:11)
[2017-10-27 07:27] LABS: BASO # 0.1 K/uL (0.0-0.2); BASO % 0.9 % (0.0-2.0); EOS # 1.3 K/uL (0.0-0.7); EOS % 12.9 % (0.0-4.0); HEMOGLOBIN 8.5 g/dL (12.0-18.0); LYMPH # 2.6 K/uL (1.0-4.3); LYMPH % 25.2 % (20.0-40.0); MEAN CELL VOLUME 89.3 fL (80.0-94.0); MEAN CORPUSCULAR HEMOGLOBIN 30.4 pg (27.0-31.0); MONO # 1.1 K/uL (0.0-0.8); MONO % 10.6 % (0.0-10.0); NEUT # 5.3 K/uL (1.8-7.0); NEUT % 50.4 % (50.0-75.0); RBC 2.81 Mil/uL (4.40-5.90); RED CELL DISTRIBUTION WIDTH 19.3 % (11.5-14.5); WHITE BLOOD COUNT 10.4 K/uL (4.8-10.8)
[2017-10-27 08:21] LABS: ALB/GLOB RATIO 0.6 (1.0-2.1); ALBUMIN 2.2 g/dL (3.5-5.0); ALT/SGPT 28 U/L (21-72); AST/SGOT 58 U/L (17-59); BLOOD UREA NITROGEN 12 mg/dL (9-20); CALCIUM 7.1 mg/dl (8.6-10.4); GFR AFRICAN-AMERICAN > 60; GFR NON-AFRICAN AMERICAN > 60
[2017-10-27] MEDS: Pantoprazole 40 mg EC Tab PO SCH (10:58)
[2017-10-27] MEDS: Propranolol 5 mg Tab PO SCH ×3 (10:59→18:31)
[2017-10-27] MEDS: Potassium Chloride 20 mEq/15 ml LIQ UD PO SCH (11:00)
--- NOTE | 2017-10-27 16:20 | RAD ---
PROCEDURE: Right Knee Radiographs. HISTORY: injury COMPARISON: None. FINDINGS: BONES: No evidence of acute displaced fracture nor dislocation. The osseous structures appear intact. JOINTS: Joint spaces preserved. No significant osteoarthritis. JOINT EFFUSION: None. OTHER FINDINGS: None. IMPRESSION: No evidence of acute displaced fracture nor dislocation.
[2017-10-27] MEDS: Ammonium Lactate 12% Lotion (225 g) EXT SCH ×2 (18:31→18:39)
--- NOTE | 2017-10-27 20:29 | CP.PCM.PN ---
Subjective - Date & Time of Evaluation Date of Evaluation: 10/27/17 Time of Evaluation: 20:27 - Subjective Subjective: Patient is now having more pain in the right knee. Right leg pain noted. Today he underwent physical therapy. But significant weakness noted. Coughing noted, wheezing bilaterally present On examination: Vital signs noted. Stable. Chest minimal bilateral expiratory wheezing noted Regular heart sound Abdomen minimal distention noted. Pedal edema noted. Skin showing extensive skin changes from the psoriasis. Right knee pain, tenderness, swelling present. There is also minimal right ankle tenderness and swelling, reduced range of motion noted Patient's labs reviewed. Nonspecific. Assessment and recommendation: 41-year-old male with a history of alcoholic liver disease, liver cirrhosis, admitted with the alcoholic encephalopathy. Decompensated liver disease associated with the fluid overload. Scrotal edema. Improving at this time, we'll continue the IV Lasix. Physical therapy. Will add Solu-Medrol 40 mg twice a day to reduce possibility of the inflammatory arthritis of the right knee and ankle, and also for asthma exacerbation. Repeat the blood works Continue the physical therapy. Subacute rehabilitation recommended. Will follow the patient I spoke to the patient's mom Objective - Vital Signs/Intake and Output Vital Signs (last 24 hours): Temp Pulse Resp BP Pulse Ox 98.1 F 93 H 20 141/81 99 10/27/17 16:00 10/27/17 16:00 10/27/17 16:00 10/27/17 16:00 10/27/17 16:00 Intake and Output: 10/27/17 10/28/17 18:59 06:59 Intake Total 480 Balance 480 - Medications Medications: Current Medications Albuterol/Ipratropium (Duoneb 3 Mg/0.5 Mg (3 Ml) Ud) 3 ml INH RQ6 [facility] Last Admin: 10/27/17 20:11 Dose: 3 ml Furosemide (Lasix) 40 mg IVP Q12 [facility] Last Admin: 10/27/17 10:59 Dose: 40 mg Lactic Acid (Lac-Hydrin 12% Lotion (225 G)) 0 gm EXT BID [facility] Last Admin: 10/27/17 18:39 Dose: Not Given Lactulose (Enulose) 20 gm PO Q8 [facility] Last Admin: 10/27/17 14:40 Dose: 20 gm Lidocaine (Lidoderm) 1 ea TD Q24H [facility] Last Admin: 10/26/17 20:35 Dose: 1 ea Pantoprazole Sodium (Protonix Ec Tab) 40 mg PO DAILY [facility] Last Admin: 10/27/17 10:58 Dose: 40 mg Potassium Chloride (Potassium Chloride Oral Soln) 40 meq PO DAILY [facility] Last Admin: 10/27/17 11:00 Dose: 40 meq Propranolol HCl (Inderal) 5 mg PO TID [facility] Last Admin: 10/27/17 18:31 Dose: 5 mg Spironolactone (Aldactone) 50 mg PO DAILY [facility] Last Admin: 10/27/17 10:59 Dose: 50 mg - Labs Labs: 10/27/17 07:15 10/27/17 07:15 PT 17.3 SECONDS (9.7-12.2) H 10/15/17 10:04 INR 1.6 10/15/17 10:04 APTT 36 SECONDS (21-34) H 10/15/17 10:04
[2017-10-27] MEDS: Lidocaine 5% Patch TD SCH (20:35)
[2017-10-27] MEDS: MethylPREDNISolone 40 mg Vial IVP SCH (22:17)
[2017-10-28] MEDS: Albuterol-Ipratrop 3 mg / 0.5 (3 ml) UD INH SCH ×4 (01:44→19:24)
[2017-10-28] MEDS: Potassium Chloride 20 mEq/15 ml LIQ UD PO SCH (09:42)
[2017-10-28] MEDS: MethylPREDNISolone 40 mg Vial IVP SCH (09:43)
[2017-10-28] MEDS: Propranolol 5 mg Tab PO SCH ×3 (09:44→17:56)
[2017-10-28] MEDS: Pantoprazole 40 mg EC Tab PO SCH (09:44)
[2017-10-28] MEDS: Ammonium Lactate 12% Lotion (225 g) EXT SCH ×2 (10:42→17:56)
[2017-10-28] MEDS: Lidocaine 5% Patch TD SCH (19:57)
--- NOTE | 2017-10-28 22:23 | CP.PCM.PN ---
Subjective - Date & Time of Evaluation Date of Evaluation: 10/28/17 Time of Evaluation: 22:23 - Subjective Subjective: Patient is feeling much better. His swelling is improving. Patient is able to stand up and walk a few steps Complaining of right knee pain On examination: Chest good air entry Regular heart sound Abdomen nontender Edema bilaterally noted Assessment and recommendation: Patient is a 41-year-old male with history of alcoholic liver disease, end- stage liver failure, ascites and anasarca. Fluid overload. Hepatic encephalopathy. Improving. Possible discharge planning tomorrow Objective - Vital Signs/Intake and Output Vital Signs (last 24 hours): Temp Pulse Resp BP Pulse Ox 98.3 F 74 20 134/72 97 10/28/17 16:00 10/28/17 16:00 10/28/17 16:00 10/28/17 21:41 10/28/17 16:00 Intake and Output: 10/28/17 10/29/17 18:59 06:59 Intake Total 350 Balance 350 - Medications Medications: Current Medications Acetaminophen (Tylenol 325mg Tab) 650 mg PO Q6 PRN PRN Reason: Pain, Mild (1-3) Stop: 10/29/17 20:31 Albuterol/Ipratropium (Duoneb 3 Mg/0.5 Mg (3 Ml) Ud) 3 ml INH RQ6 [facility] Last Admin: 10/28/17 19:24 Dose: 3 ml Furosemide (Lasix) 40 mg PO BID [facility] Last Admin: 10/28/17 21:41 Dose: 40 mg Lactic Acid (Lac-Hydrin 12% Lotion (225 G)) 0 gm EXT BID [facility] Last Admin: 10/28/17 17:56 Dose: Not Given Lactulose (Enulose) 20 gm PO Q8 [facility] Last Admin: 10/28/17 21:41 Dose: 20 gm Lidocaine (Lidoderm) 1 ea TD Q24H [facility] Last Admin: 10/28/17 19:57 Dose: 1 ea Pantoprazole Sodium (Protonix Ec Tab) 40 mg PO DAILY [facility] Last Admin: 10/28/17 09:44 Dose: 40 mg Potassium Chloride (Potassium Chloride Oral Soln) 40 meq PO DAILY [facility] Last Admin: 10/28/17 09:42 Dose: 40 meq Prednisone (Prednisone Tab) 20 mg PO DAILY [facility] Propranolol HCl (Inderal) 5 mg PO TID [facility] Last Admin: 10/28/17 17:56 Dose: 5 mg Spironolactone (Aldactone) 50 mg PO DAILY [facility] Last Admin: 10/28/17 09:44 Dose: 50 mg - Labs Labs: 10/27/17 07:15 10/27/17 07:15 PT 17.3 SECONDS (9.7-12.2) H 10/15/17 10:04 INR 1.6 10/15/17 10:04 APTT 36 SECONDS (21-34) H 10/15/17 10:04
[2017-10-29] MEDS: Albuterol-Ipratrop 3 mg / 0.5 (3 ml) UD INH SCH ×4 (01:41→19:33)
[2017-10-29] MEDS: Pantoprazole 40 mg EC Tab PO SCH (09:43)
[2017-10-29] MEDS: Potassium Chloride 20 mEq/15 ml LIQ UD PO SCH (09:43)
[2017-10-29] MEDS: Propranolol 5 mg Tab PO SCH ×3 (09:44→17:42)
[2017-10-29] MEDS: Ammonium Lactate 12% Lotion (225 g) EXT SCH ×3 (12:33→17:44)
[2017-10-29] MEDS: Lidocaine 5% Patch TD SCH (22:10)
--- NOTE | 2017-10-29 22:15 | CP.PCM.PN ---
Subjective - Date & Time of Evaluation Date of Evaluation: 10/29/17 Time of Evaluation: 22:15 - Subjective Subjective: Patient is feeling much better, and complaining of right leg pain. There is a pain in the right upper one third of the leg, associated with the swelling. Unable to walk because of that. On examination: Patient is comfortable otherwise. Not in any distress. Chest good air entry regular heart sound abdomen nontender. Edema bilaterally noted. Scrotal swelling is improving Assessment and recommendation: 41-year-old male with history of liver cirrhosis, secondary to alcoholic abuse. Diabetes Psoriasis, and associated with the psoriatic skin disease. And arthritis. Patient is now having right leg swelling. Underlying abscess cannot be ruled out, awaiting for CT of the legs with the contrast. If it is negative, patient can be discharged home. Objective - Vital Signs/Intake and Output Vital Signs (last 24 hours): Temp Pulse Resp BP Pulse Ox 97.9 F 90 20 152/88 H 99 10/29/17 15:00 10/29/17 15:00 10/29/17 15:00 10/29/17 17:42 10/29/17 15:00 Intake and Output: 10/29/17 10/30/17 18:59 06:59 Intake Total 500 Balance 500 - Medications Medications: Current Medications Albuterol/Ipratropium (Duoneb 3 Mg/0.5 Mg (3 Ml) Ud) 3 ml INH RQ6 [facility] Last Admin: 10/29/17 19:33 Dose: Not Given Furosemide (Lasix) 40 mg PO BID [facility] Last Admin: 10/29/17 17:42 Dose: 40 mg Lactic Acid (Lac-Hydrin 12% Lotion (225 G)) 0 gm EXT BID [facility] Last Admin: 10/29/17 17:44 Dose: Not Given Lactulose (Enulose) 20 gm PO Q8 [facility] Last Admin: 10/29/17 21:09 Dose: 20 gm Lidocaine (Lidoderm) 1 ea TD Q24H [facility] Last Admin: 10/29/17 22:10 Dose: 1 ea Pantoprazole Sodium (Protonix Ec Tab) 40 mg PO DAILY [facility] Last Admin: 10/29/17 09:43 Dose: 40 mg Potassium Chloride (Potassium Chloride Oral Soln) 40 meq PO DAILY [facility] Last Admin: 10/29/17 09:43 Dose: 40 meq Prednisone (Prednisone Tab) 20 mg PO DAILY [facility] Last Admin: 10/29/17 09:43 Dose: 20 mg Propranolol HCl (Inderal) 5 mg PO TID [facility] Last Admin: 10/29/17 17:42 Dose: 5 mg Spironolactone (Aldactone) 50 mg PO DAILY [facility] Last Admin: 10/29/17 09:44 Dose: 50 mg - Labs Labs: 10/27/17 07:15 10/27/17 07:15 PT 17.3 SECONDS (9.7-12.2) H 10/15/17 10:04 INR 1.6 10/15/17 10:04 APTT 36 SECONDS (21-34) H 10/15/17 10:04
[2017-10-30] MEDS: Albuterol-Ipratrop 3 mg / 0.5 (3 ml) UD INH SCH ×4 (02:25→19:46)
[2017-10-30] MEDS: Propranolol 5 mg Tab PO SCH ×3 (09:43→17:44)
[2017-10-30] MEDS: Potassium Chloride 20 mEq/15 ml LIQ UD PO SCH (09:43)
[2017-10-30] MEDS: Pantoprazole 40 mg EC Tab PO SCH (09:43)
[2017-10-30] MEDS: Ammonium Lactate 12% Lotion (225 g) EXT SCH ×2 (09:44→17:42)
[2017-10-30] MEDS ORDERED: Iodixanol 320 MG/ML 100 ML BOTTLE IV ONE (11:54)
--- NOTE | 2017-10-30 12:56 | CT ---
CT right lower extremity History: Abscess. Comparison: None available. Technique: Multi-echo multiplanar sequences were performed through the right tibia and fibula without the use of intravenous contrast. Subsequently, sagittal and coronal reformatted images were obtained. This CT exam was performed using one or more of the following dose reduction techniques: Automated exposure control, adjustment of the mA and/or kV according to patient size, and/or use of iterative reconstruction technique. Findings: Within the anterolateral compartment musculature of the right lower extremity, at the level of the proximal tibia and fibula, there is a prominent heterogeneous enhancing ovoid collection measuring 7.1 x 2.6 x 9.1 centimeters. This is of uncertain clinical etiology and may represent an enhancing abscess collection versus hemorrhagic collection versus additional etiology. Continued interval followup and or correlation with a contrast-enhanced MRI may be helpful for further evaluation if clinically indicated. Circumferential reticulation and edema within the subcutaneous soft tissues. Osseous structures appear grossly preserved. Impression: Within the anterolateral compartment musculature of the right lower extremity, at the level of the proximal tibia and fibula, there is a prominent heterogeneous enhancing ovoid collection measuring 7.1 x 2.6 x 9.1 centimeters. This is of uncertain clinical etiology and may represent an enhancing abscess collection versus hemorrhagic collection versus additional etiology. Continued interval followup and or correlation with a contrast-enhanced MRI may be helpful for further evaluation if clinically indicated. Circumferential reticulation and edema within the subcutaneous soft tissues.
--- NOTE | 2017-10-30 18:49 | CP.PCM.PN ---
Subjective - Date & Time of Evaluation Date of Evaluation: 10/30/17 Time of Evaluation: 18:49 - Subjective Subjective: Patient is clinically doing well. But he is having some pain in the right upper one third of the leg. There is also swelling. No fever or chills noted. Tenderness present also. On examination: Vital signs stable. Chest good air entry. Regular heart sound noted. Abdominal distention noted, but less. Also leg edema less. Right upper one third of the leg there is is soft tissue swelling noted. Patient underwent a CT scan of the leg showing evidence of some collection questionable abscess. But patient does not have any symptoms Assessment and recommendation: 41-year-old male with a history of liver disease, liver cirrhosis alcoholic liver disease. Now having possible questionable abscess in the right upper one third of the leg. Will get the labs tomorrow. If there is any signs of infection patient may need to drain this fluid. But will repeat the labs and we'll closely monitor the patient. Objective - Vital Signs/Intake and Output Vital Signs (last 24 hours): Temp Pulse Resp BP Pulse Ox 98.2 F 90 20 138/75 99 10/30/17 16:00 10/30/17 16:00 10/30/17 16:00 10/30/17 17:44 10/30/17 16:00 Intake and Output: 10/30/17 10/30/17 06:59 18:59 Intake Total 750 400 Output Total 750 Balance 0 400 - Medications Medications: Current Medications Albuterol/Ipratropium (Duoneb 3 Mg/0.5 Mg (3 Ml) Ud) 3 ml INH RQ6 [facility] Last Admin: 10/30/17 13:15 Dose: Not Given Furosemide (Lasix) 40 mg PO BID [facility] Last Admin: 10/30/17 17:44 Dose: 40 mg Lactic Acid (Lac-Hydrin 12% Lotion (225 G)) 0 gm EXT BID [facility] Last Admin: 10/30/17 17:42 Dose: Not Given Lactulose (Enulose) 20 gm PO Q8 [facility] Last Admin: 10/30/17 14:01 Dose: Not Given Lidocaine (Lidoderm) 1 ea TD Q24H [facility] Last Admin: 10/29/17 22:10 Dose: 1 ea Pantoprazole Sodium (Protonix Ec Tab) 40 mg PO DAILY [facility] Last Admin: 10/30/17 09:43 Dose: 40 mg Potassium Chloride (Potassium Chloride Oral Soln) 40 meq PO DAILY [facility] Last Admin: 10/30/17 09:43 Dose: 40 meq Prednisone (Prednisone Tab) 20 mg PO DAILY [facility] Last Admin: 10/30/17 09:43 Dose: 20 mg Propranolol HCl (Inderal) 5 mg PO TID [facility] Last Admin: 10/30/17 17:44 Dose: 5 mg Spironolactone (Aldactone) 50 mg PO DAILY [facility] Last Admin: 10/30/17 09:43 Dose: 50 mg - Labs Labs: 10/27/17 07:15 10/27/17 07:15 PT 17.3 SECONDS (9.7-12.2) H 10/15/17 10:04 INR 1.6 10/15/17 10:04 APTT 36 SECONDS (21-34) H 10/15/17 10:04
[2017-10-30] MEDS: Lidocaine 5% Patch TD SCH (21:09)
[2017-10-31] MEDS: Albuterol-Ipratrop 3 mg / 0.5 (3 ml) UD INH SCH ×4 (01:58→20:49)
--- NOTE | 2017-10-31 07:33 | CP.PCM.PN ---
Subjective - Date & Time of Evaluation Date of Evaluation: 10/31/17 Time of Evaluation: 07:33 - Subjective Subjective: Patient is clinically doing well. But he is having some pain in the right upper one third of the leg. There is also swelling. No fever or chills noted. Tenderness present also. On examination: Vital signs stable. Chest good air entry. Regular heart sound noted. Abdominal distention noted, but less. Also leg edema less. Right upper one third of the leg there is is soft tissue swelling noted. Patient underwent a CT scan of the leg showing evidence of some collection questionable abscess. But patient does not have any symptoms Assessment and recommendation: 41-year-old male with a history of liver disease, liver cirrhosis alcoholic liver disease. Now having possible questionable abscess in the right upper one third of the leg. Will get the labs tomorrow. If there is any signs of infection patient may need to drain this fluid. But will repeat the labs and we'll closely monitor the patient. Objective - Vital Signs/Intake and Output Vital Signs (last 24 hours): Temp Pulse Resp BP Pulse Ox 97.1 F L 76 18 129/64 98 10/31/17 00:43 10/31/17 00:43 10/31/17 00:43 10/31/17 00:43 10/31/17 00:43 Intake and Output: 10/31/17 10/31/17 06:59 18:59 Intake Total 500 Output Total 300 Balance 200 - Medications Medications: Current Medications Albuterol/Ipratropium (Duoneb 3 Mg/0.5 Mg (3 Ml) Ud) 3 ml INH RQ6 [facility] Last Admin: 10/31/17 01:58 Dose: Not Given Furosemide (Lasix) 40 mg PO BID [facility] [place] Last Admin: 10/30/17 17:44 Dose: 40 mg Lactic Acid (Lac-Hydrin 12% Lotion (225 G)) 0 gm EXT BID [facility] [place] Last Admin: 10/30/17 17:42 Dose: Not Given Lactulose (Enulose) 20 gm PO Q8 [facility] [place] Last Admin: 10/31/17 06:12 Dose: Not Given Lidocaine (Lidoderm) 1 ea TD Q24H [facility] Last Admin: 10/30/17 21:09 Dose: 1 ea Pantoprazole Sodium (Protonix Ec Tab) 40 mg PO DAILY [facility] Last Admin: 10/30/17 09:43 Dose: 40 mg Potassium Chloride (Potassium Chloride Oral Soln) 40 meq PO DAILY [facility] Last Admin: 10/30/17 09:43 Dose: 40 meq Prednisone (Prednisone Tab) 20 mg PO DAILY [facility] Last Admin: 10/30/17 09:43 Dose: 20 mg Propranolol HCl (Inderal) 5 mg PO TID [facility] Last Admin: 10/30/17 17:44 Dose: 5 mg Spironolactone (Aldactone) 50 mg PO DAILY [facility] Last Admin: 10/30/17 09:43 Dose: 50 mg - Labs Labs: 10/27/17 07:15 10/27/17 07:15 PT 17.3 SECONDS (9.7-12.2) H 10/15/17 10:04 INR 1.6 10/15/17 10:04 APTT 36 SECONDS (21-34) H 10/15/17 10:04
[2017-10-31 08:08] LABS: BASO # 0.1 K/uL (0.0-0.2); BASO % 0.6 % (0.0-2.0); EOS # 0.6 K/uL (0.0-0.7); EOS % 6.1 % (0.0-4.0); HEMOGLOBIN 8.7 g/dL (12.0-18.0); LYMPH # 2.7 K/uL (1.0-4.3); LYMPH % 26.6 % (20.0-40.0); MEAN CELL VOLUME 89.2 fL (80.0-94.0); MEAN CORPUSCULAR HEMOGLOBIN 30.7 pg (27.0-31.0); MEAN CORPUSCULAR HGB CONC 34.4 g/dL (33.0-37.0); MEAN PLATELET VOLUME 7.6 fL (7.2-11.7); MONO # 1.3 K/uL (0.0-0.8); MONO % 12.5 % (0.0-10.0); NEUT # 5.4 K/uL (1.8-7.0); NEUT % 54.2 % (50.0-75.0); NRBC % 0.1 % (0.0-2.0); RBC 2.83 Mil/uL (4.40-5.90); RED CELL DISTRIBUTION WIDTH 18.8 % (11.5-14.5)
[2017-10-31 08:33] LABS: ALB/GLOB RATIO 0.6 (1.0-2.1); ALBUMIN 2.1 g/dL (3.5-5.0); ALT/SGPT 29 U/L (21-72); AST/SGOT 50 U/L (17-59); BLOOD UREA NITROGEN 12 mg/dL (9-20); CALCIUM 8.4 mg/dl (8.6-10.4); GFR AFRICAN-AMERICAN > 60; GFR NON-AFRICAN AMERICAN > 60
[2017-10-31] MEDS: Pantoprazole 40 mg EC Tab PO SCH (09:20)
[2017-10-31] MEDS: Propranolol 5 mg Tab PO SCH ×3 (09:21→18:07)
[2017-10-31] MEDS: Potassium Chloride 20 mEq/15 ml LIQ UD PO SCH (09:22)
[2017-10-31] MEDS: Ammonium Lactate 12% Lotion (225 g) EXT SCH ×2 (09:24→17:29)
[2017-10-31] MEDS: Lidocaine 5% Patch TD SCH (20:20)
[2017-11-01] MEDS: Albuterol-Ipratrop 3 mg / 0.5 (3 ml) UD INH SCH ×4 (01:07→19:21)
[2017-11-01] MEDS: Pantoprazole 40 mg EC Tab PO SCH (09:06)
[2017-11-01] MEDS: Potassium Chloride 20 mEq/15 ml LIQ UD PO SCH (09:06)
[2017-11-01] MEDS: Propranolol 5 mg Tab PO SCH ×3 (09:06→17:04)
[2017-11-01] MEDS: Ammonium Lactate 12% Lotion (225 g) EXT SCH ×2 (09:09→17:01)
[2017-11-01 15:59] VITALS: RESP 20
[2017-11-01] MEDS: Lidocaine 5% Patch TD SCH (20:28)
--- NOTE | 2017-11-01 21:41 | US ---
EXAM: US Right Lower Extremity Non-Vascular, Limited CLINICAL HISTORY: 41 years old, male; Signs and symptoms; Mass or lump; Lower leg; Right; Additional info: Rt leg upper part eval for abcess TECHNIQUE: Real-time ultrasound scan of the right lower extremity with image documentation. COMPARISON: No relevant prior studies available. FINDINGS: Soft tissues: Edema within soft tissues. 9.6 x 2.4 x 5.2 cm predominately hypoechoic collection within anterolateral leg. Increased vascularity along periphery of lesion. IMPRESSION: 1. Soft tissue collection. DDX: Abscess, resolving hematoma, less likely complex cyst or cystic neoplasm. Clinical correlation is needed.
[2017-11-02] MEDS: Albuterol-Ipratrop 3 mg / 0.5 (3 ml) UD INH SCH ×4 (02:00→19:27)
[2017-11-02] MEDS: Pantoprazole 40 mg EC Tab PO SCH (09:24)
[2017-11-02] MEDS: Propranolol 5 mg Tab PO SCH ×3 (09:24→17:39)
[2017-11-02] MEDS: Potassium Chloride 20 mEq/15 ml LIQ UD PO SCH (09:28)
[2017-11-02] MEDS: Ammonium Lactate 12% Lotion (225 g) EXT SCH ×3 (10:19→17:41)
--- NOTE | 2017-11-02 12:29 | PCM.SURG1 ---
Surgeon's Initial Post Op Note - Surgeon's Notes Surgeon: Ricci Wells MD Senior Relationship Manager: NONE Type of Anesthesia: Local Pre-Operative Diagnosis: Right left hematoma Operative Findings: US showed a large hypoechoic collection right lower leg. Post-Operative Diagnosis: Right leg hematoma Operation Performed: US guided right leg aspiration. A drainage catheter was advanced under US guidance into the collection. Only 10 cc of dark blood products could be removed. Specimen/Specimens Removed: 10 cc Estimated Blood Loss: EBL {In ML}: 1 Blood Products Given: N/A Drains Used: No Drains Post-Op Condition: Fair Date of Surgery/Procedure: 11/02/17 Time of Surgery/Procedure: 12:25
--- NOTE | 2017-11-02 12:46 | US ---
PROCEDURE: Date of procedure: 11/02/2017 Procedure: 1. Right leg fluid collection aspiration under ultrasound guidance Medications: 2 percent lidocaine 6 cubic centimeters HISTORY: Right leg fluid collection status post fall TECHNIQUE: Following informed consent procedure time-out, limited ultrasound performed of the right leg showed a complex hypoechoic collection. The patient's right leg core was marked, prepped, and draped in the usual sterile fashion. After the skin was anesthetized with 2 percent lidocaine, a 5 [employer] catheter was advanced under ultrasound guidance into the collection. There is immediate return of dark blood products. The collection was aspirated. Only 10 cubic centimeters of dark blood products could be aspirated. A dressing was applied. IMPRESSION: Ultrasound-guided aspiration of right leg fluid collection. The fluid collection is a hematoma.
[2017-11-02] MEDS: Lidocaine 5% Patch TD SCH (20:50)
--- NOTE | 2017-11-02 22:20 | CP.PCM.PN ---
Subjective - Date & Time of Evaluation Date of Evaluation: 11/01/17 Time of Evaluation: 22:19 - Subjective Subjective: Patient is currently feeling better. No chest pain or shortness of breath noted. Leg swelling noted. Patient will be getting any interventional radiology procedure tomorrow for the right lower extremity swelling. Objective - Vital Signs/Intake and Output Vital Signs (last 24 hours): Temp Pulse Resp BP Pulse Ox 98.8 F 98 H 20 128/79 99 11/02/17 15:53 11/02/17 15:53 11/02/17 15:53 11/02/17 17:36 11/02/17 15:53 Intake and Output: 11/02/17 11/03/17 18:59 06:59 Output Total 1500 Balance -1500 - Medications Medications: Current Medications Albuterol/Ipratropium (Duoneb 3 Mg/0.5 Mg (3 Ml) Ud) 3 ml INH RQ6 [facility] Last Admin: 11/02/17 19:27 Dose: Not Given Furosemide (Lasix) 40 mg PO BID [facility] Last Admin: 11/02/17 17:36 Dose: 40 mg Lactic Acid (Lac-Hydrin 12% Lotion (225 G)) 0 gm EXT BID [facility] Last Admin: 11/02/17 17:41 Dose: Not Given Lactulose (Enulose) 20 gm PO Q8 [facility] Last Admin: 11/02/17 21:43 Dose: Not Given Lidocaine (Lidoderm) 1 ea TD Q24H [facility] Last Admin: 11/02/17 20:50 Dose: 1 ea Pantoprazole Sodium (Protonix Ec Tab) 40 mg PO DAILY [facility] Last Admin: 11/02/17 09:24 Dose: 40 mg Potassium Chloride (Potassium Chloride Oral Soln) 40 meq PO DAILY [facility] Last Admin: 11/02/17 09:28 Dose: 40 meq Prednisone (Prednisone Tab) 20 mg PO DAILY [facility] Last Admin: 11/02/17 09:24 Dose: 20 mg Propranolol HCl (Inderal) 5 mg PO TID [facility] Last Admin: 11/02/17 17:39 Dose: 5 mg Spironolactone (Aldactone) 50 mg PO DAILY [facility] Last Admin: 11/02/17 09:36 Dose: 50 mg - Labs Labs: 10/31/17 07:56 10/31/17 07:56 PT 17.3 SECONDS (9.7-12.2) H 10/15/17 10:04 INR 1.6 10/15/17 10:04 APTT 36 SECONDS (21-34) H 10/15/17 10:04
--- NOTE | 2017-11-02 22:21 | CP.PCM.PN ---
Subjective - Date & Time of Evaluation Date of Evaluation: 11/02/17 Time of Evaluation: 22:20 - Subjective Subjective: Patient is feeling better. Still having pain in the right lower extremity. Leg swelling present. On examination: Vital signs stable. Patient is feeling otherwise okay Final diagnosis: Chronic liver disease sepsis. Hematoma Stable. Discharge plan tomorrow Objective - Vital Signs/Intake and Output Vital Signs (last 24 hours): Temp Pulse Resp BP Pulse Ox 98.8 F 98 H 20 128/79 99 11/02/17 15:53 11/02/17 15:53 11/02/17 15:53 11/02/17 17:36 11/02/17 15:53 Intake and Output: 11/02/17 11/03/17 18:59 06:59 Output Total 1500 Balance -1500 - Medications Medications: Current Medications Albuterol/Ipratropium (Duoneb 3 Mg/0.5 Mg (3 Ml) Ud) 3 ml INH RQ6 [facility] Last Admin: 11/02/17 19:27 Dose: Not Given Furosemide (Lasix) 40 mg PO BID [facility] Last Admin: 11/02/17 17:36 Dose: 40 mg Lactic Acid (Lac-Hydrin 12% Lotion (225 G)) 0 gm EXT BID [facility] Last Admin: 11/02/17 17:41 Dose: Not Given Lactulose (Enulose) 20 gm PO Q8 [facility] Last Admin: 11/02/17 21:43 Dose: Not Given Lidocaine (Lidoderm) 1 ea TD Q24H [facility] Last Admin: 11/02/17 20:50 Dose: 1 ea Pantoprazole Sodium (Protonix Ec Tab) 40 mg PO DAILY [facility] Last Admin: 11/02/17 09:24 Dose: 40 mg Potassium Chloride (Potassium Chloride Oral Soln) 40 meq PO DAILY [facility] Last Admin: 11/02/17 09:28 Dose: 40 meq Prednisone (Prednisone Tab) 20 mg PO DAILY [facility] Last Admin: 11/02/17 09:24 Dose: 20 mg Propranolol HCl (Inderal) 5 mg PO TID [facility] Last Admin: 11/02/17 17:39 Dose: 5 mg Spironolactone (Aldactone) 50 mg PO DAILY [facility] Last Admin: 11/02/17 09:36 Dose: 50 mg - Labs Labs: 10/31/17 07:56 10/31/17 07:56 PT 17.3 SECONDS (9.7-12.2) H 10/15/17 10:04 INR 1.6 10/15/17 10:04 APTT 36 SECONDS (21-34) H 10/15/17 10:04
[2017-11-03] MEDS: Albuterol-Ipratrop 3 mg / 0.5 (3 ml) UD INH SCH ×3 (01:40→13:14)
[2017-11-03 08:52] VITALS: BP 138/90; PULSE 95; TEMP 98.6; O2SAT 100
[2017-11-03] MEDS: Pantoprazole 40 mg EC Tab PO SCH (10:33)
[2017-11-03] MEDS: Propranolol 5 mg Tab PO SCH ×2 (10:34→14:36)
[2017-11-03] MEDS: Ammonium Lactate 12% Lotion (225 g) EXT SCH (10:35)
[2017-11-03] MEDS: Potassium Chloride 20 mEq/15 ml LIQ UD PO SCH (10:35)
[2017-11-03 11:45] LABS: BASO # 0.1 K/uL (0.0-0.2); BASO % 0.9 % (0.0-2.0); EOS # 0.5 K/uL (0.0-0.7); EOS % 6.2 % (0.0-4.0); HEMOGLOBIN 9.1 g/dL (12.0-18.0); LYMPH # 2.2 K/uL (1.0-4.3); LYMPH % 27.1 % (20.0-40.0); MEAN CORPUSCULAR HEMOGLOBIN 29.8 pg (27.0-31.0); MEAN CORPUSCULAR HGB CONC 33.1 g/dL (33.0-37.0); MEAN PLATELET VOLUME 7.1 fL (7.2-11.7); MONO % 12.2 % (0.0-10.0); NEUT # 4.3 K/uL (1.8-7.0); NEUT % 53.6 % (50.0-75.0); NRBC % 0.1 % (0.0-2.0); RBC 3.04 Mil/uL (4.40-5.90)
[2017-11-03 11:59] LABS: BLOOD UREA NITROGEN 12 mg/dL (9-20); CALCIUM 9.1 mg/dl (8.6-10.4); GFR AFRICAN-AMERICAN > 60; GFR NON-AFRICAN AMERICAN > 60
--- NOTE | 2017-11-03 16:51 | CP.PCM.PN ---
Subjective - Date & Time of Evaluation Date of Evaluation: 11/03/17 Time of Evaluation: 16:51 - Subjective Subjective: Alert and orientedx3, out of bed to chair, NAD. Objective - Vital Signs/Intake and Output Vital Signs (last 24 hours): Temp Pulse Resp BP Pulse Ox 98.6 F 95 H 20 138/90 100 11/03/17 08:51 11/03/17 08:51 11/03/17 08:51 11/03/17 10:33 11/03/17 08:51 Intake and Output: 11/03/17 11/03/17 06:59 18:59 Intake Total 590 Output Total 2200 Balance -1610 - Labs Labs: 11/03/17 11:34 11/03/17 11:34 PT 17.3 SECONDS (9.7-12.2) H 10/15/17 10:04 INR 1.6 10/15/17 10:04 APTT 36 SECONDS (21-34) H 10/15/17 10:04 Assessment and Plan - Assessment and Plan (Free Text) Assessment: Patient is seen and examined. Alert and orientedx3, pain on the knee is much better today. Plan to discharge home today as per DR Edwards. Will continue with present medications. Advised to follow up in the office in 1 week. Home physical therapy is arranged and transportation arranged by the manager of case.
--- NOTE | 2017-11-03 22:58 | CP.PCM.DIS ---
Provider - Provider Date of Admission: 10/15/17 11:53 Attending physician: Damaris Edwards MD Time Spent in preparation of Discharge (in minutes): 45 Hospital Course - Lab Results Lab Results: Micro Results 11/02/17 13:21 Other: Please Indicate Gram Stain - Final Most Recent Lab Values WBC 8.0 K/uL (4.8-10.8) 11/03/17 11:34 RBC 3.04 Mil/uL (4.40-5.90) L 11/03/17 11:34 Hgb 9.1 g/dL (12.0-18.0) L 11/03/17 11:34 Hct 27.4 % (35.0-51.0) L 11/03/17 11:34 MCV 90.0 fL (80.0-94.0) 11/03/17 11:34 MCH 29.8 pg (27.0-31.0) 11/03/17 11:34 MCHC 33.1 g/dL (33.0-37.0) 11/03/17 11:34 RDW 19.0 % (11.5-14.5) H 11/03/17 11:34 Plt Count 158 K/uL (130-400) 11/03/17 11:34 MPV 7.1 fL (7.2-11.7) L 11/03/17 11:34 Neut % (Auto) 53.6 % (50.0-75.0) 11/03/17 11:34 Lymph % (Auto) 27.1 % (20.0-40.0) 11/03/17 11:34 Frio % (Auto) 12.2 % (0.0-10.0) H 11/03/17 11:34 Eos % (Auto) 6.2 % (0.0-4.0) H 11/03/17 11:34 Baso % (Auto) 0.9 % (0.0-2.0) 11/03/17 11:34 Neut # (Auto) 4.3 K/uL (1.8-7.0) 11/03/17 11:34 Lymph # (Auto) 2.2 K/uL (1.0-4.3) 11/03/17 11:34 Frio # (Auto) 1.0 K/uL (0.0-0.8) H 11/03/17 11:34 Eos # (Auto) 0.5 K/uL (0.0-0.7) 11/03/17 11:34 Baso # (Auto) 0.1 K/uL (0.0-0.2) 11/03/17 11:34 PT 17.3 SECONDS (9.7-12.2) H 10/15/17 10:04 INR 1.6 10/15/17 10:04 APTT 36 SECONDS (21-34) H 10/15/17 10:04 Sodium 137 mmol/L (132-148) 11/03/17 11:34 Potassium 4.5 mmol/L (3.6-5.2) 11/03/17 11:34 Chloride 102 mmol/L (98-107) 11/03/17 11:34 Carbon Dioxide 27 mmol/L (22-30) 11/03/17 11:34 Anion Gap 12 (10-20) 11/03/17 11:34 BUN 12 mg/dL (9-20) 11/03/17 11:34 Creatinine 0.9 mg/dL (0.8-1.5) 11/03/17 11:34 Est GFR ( Amer) > 60 11/03/17 11:34 Est GFR (Non-Af Amer) > 60 11/03/17 11:34 POC Glucose (mg/dL) 188 mg/dL (65-110) H 11/03/17 11:33 Random Glucose 158 mg/dL (75-110) H 11/03/17 11:34 Lactic Acid 3.0 mmol/L (0.7-2.1) H 10/15/17 10:04 Calcium 9.1 mg/dl (8.6-10.4) 11/03/17 11:34 Phosphorus 3.4 mg/dL (2.5-4.5) 10/31/17 07:56 Magnesium 1.4 mg/dL (1.6-2.3) L 10/31/17 07:56 Total Bilirubin 1.4 mg/dL (0.2-1.3) H 10/31/17 07:56 AST 50 U/L (17-59) 10/31/17 07:56 ALT 29 U/L (21-72) 10/31/17 07:56 Alkaline Phosphatase 174 U/L (38-126) H D 10/31/17 07:56 Ammonia 25 umol/L (9-33) D 10/27/17 07:15 Total Creatine Kinase 105 U/L (55-170) 10/15/17 10:04 CK-MB (Mass) 1.06 ng/mL (0.0-3.38) 10/15/17 10:04 Troponin I 0.0300 ng/mL (0.00-0.120) 10/15/17 10:04 NT-Pro-B Natriuret Pep 253 pg/mL (0-450) 10/15/17 10:04 Total Protein 6.0 g/dL (6.3-8.3) L 10/31/17 07:56 Albumin 2.1 g/dL (3.5-5.0) L 10/31/17 07:56 Globulin 3.8 gm/dL (2.2-3.9) 10/31/17 07:56 Albumin/Globulin Ratio 0.6 (1.0-2.1) L 10/31/17 07:56 Amylase 221 U/L (30-110) H D 10/15/17 10:04 Lipase 834 U/L (23-300) H 10/15/17 10:04 Urine Color Tammy (YELLOW) 10/15/17 11:13 Urine Clarity Clear (Clear) 10/15/17 11:13 Urine pH 5.0 (5.0-8.0) 10/15/17 11:13 Ur Specific [place] 1.016 (1.003-1.030) 10/15/17 11:13 Urine Protein Negative mg/dL (NEGATIVE) 10/15/17 11:13 Urine Glucose (UA) Normal mg/dL (Normal) 10/15/17 11:13 Urine Ketones Negative mg/dL (NEGATIVE) 10/15/17 11:13 Urine Blood Negative (NEGATIVE) 10/15/17 11:13 Urine Nitrate Negative (NEGATIVE) 10/15/17 11:13 Urine Bilirubin 1+ (NEGATIVE) H 10/15/17 11:13 Urine Urobilinogen 2.0 mg/dL (0.2-1.0) 10/15/17 11:13 Ur Leukocyte Esterase Neg Lexie/uL (Negative) 10/15/17 11:13 Urine WBC (Auto) 3 /hpf (0-5) 10/15/17 11:13 Urine RBC (Auto) 1 /hpf (0-3) 10/15/17 11:13 Ur Squamous Epith Cells 1 /hpf (0-5) 10/15/17 11:13 Hyaline Casts 0-2 /lpf (0-2) 10/15/17 11:13 Alcohol, Quantitative < 10 mg/dl (0-10) 10/15/17 10:04 Blood Type AB POSITIVE 10/19/17 17:36 Antibody Screen Negative 10/19/17 17:36 - Hospital Course Hospital Course: chief concern: bilateral leg swelling scrotal swelling HPI: Patient is a 41yo male with past medical history of hypertension, alcohol- induced liver cirrhosis, hypertension, diabetes, psoriasis that presented with complaints of worsening abdominal swelling, leg swelling, unable to walk, scrotal swelling. Patient was having increasing shortn associated with the cough. No fever. Patient was not able to eat well. Nausea noted. Patient is having poor appetite, diarrhea on and off noted. Skin changes noted persistently Denies any headache. Patient was compliant with the medica But he was drinking at least to 2 months ago. Patient was recently hospitalized with rectal bleeding. received a multiple transfusion He was also eceived antibiotic. PMHx: as stated above PSHx: history of endoscopy/colonoscopy Allergies: NKDA Family hx: Father: history of heart transplant; Mother: hypertension/diabetes Social Hx: Daily alcohol consumption (~1pint of vodka per day), denies illicit drug use and former tobacco use Endoscopy hx: Endoscopy/Colonoscopy completed in 10/2015 - revealed grade 1 esophageal varices, LA Grade B Esophagitis, internal hemorrhoids, edema of the ascending colon ROS: the chart Vital signs reviewed No neck vein distention noted Chest good air entry bilaterally, no wheezing or rales noted CVS regular heart sound, no murmur noted abdominal distention noted pedal edema noted [employer] alert awake oriented -3, no functional neurological deficit patient is having tremor Psoriatic skin lesions labs reveal Low hemoglobin noted Coagulopathy Assessment and recommended 41-year-old male, hypertension, alcoholic liver disease, diabetes, psoriasis admitted with acute alcoholic intoxication, acute GI bleed, and4 anemia. patient overall prognosis is very poor, GI consultation Protonix patient admitted with acute on chronic liver insufficiency, ascites. Underlying SBP possible Acute bronchitis Fluid overload The start the patient on intraveno Lasix. Albumin. Diuretics Glucose control Will hold off antibiotic. Bronchodilator. Repeat blood test Overall prognosis guarded. Evaluation bygastroenterologist may be needed We will f/u The patient Course in the Hospital: Patient initially started on antibiotic. Bronchodilators. Patient had a significant bilateral leg swelling. Pedal edema Also is very significant scrotal swelling. Patient was started on intravenous antibiotic. Lasix. Bronchodilators. Patient initially was showing some improvement. Patient developed meanwhile acute hepatic encephalopathy, and altered mental status. Lactulose was increased. Antibiotic was discontinued. Patient was also given small amount of albumin. Also started on intravenous Lasix and spironolactone. Over the course of 1 week his condition got better. I also started giving prednisone empirically. Patient leg swelling improved, scrotal swelling improved. Patient developed meanwhile small swelling in the right upper extremity, CAT scan of the legs showing evidence of loculation, loculated subcutaneous fluid. Sonogram was done. And also interventional radiology aspiration was done. Serosanguineous fluid was removed. No evidence of infection. Patient is clinically better. He will be discharged home today. He will follow up in my office. Assessment/diagnoses: 41-year-old male with a history of alcoholic liver disease admitted with acute exacerbation of alcoholic liver cirrhosis. Severe fluid overload Severe anasarca. Acute hepatic encephalopathy. Hematoma Severe anemia , Coagulopathy. Medications reviewed in I'll follow the patient Discharge Exam - Head Exam Head Exam: ATRAUMATIC, NORMAL INSPECTION, NORMOCEPHALIC Discharge Plan - Discharge Medications Prescriptions: Potassium Chloride [Potassium Chloride Oral Soln] 20 meq PO DAILY 30 Days udc - Follow Up Plan Condition: FAIR Disposition: HOME/ ROUTINE Instructions: Dependent Edema (DC), Cirrhosis (DC) Referrals: Damaris Edawrds MD [Staff Provider] -
== END 2017-11-03 14:53 | disposition home or self-care (01) | DRG 557 ==
LOC: C.ER 08:17 → C.9E 11:53 → C.3T 12:11
PROVIDERS: ADMIT Internal Medicine; ATTEND Internal Medicine
PROC: 0H9KXZZ Drainage of Right Lower Leg Skin, External Approach (ICD-10-PCS; principal; 2017-11-02)
PROC: BL41ZZZ Ultrasonography of Lower Extremity Connective Tissue (ICD-10-PCS; 2017-11-02)
DX: K70.31 Alcoholic cirrhosis of liver with ascites (principal); A41.9 Sepsis, unspecified organism; I11.0 Hypertensive heart disease with heart failure; I50.9 Heart failure, unspecified; K92.2 Gastrointestinal hemorrhage, unspecified; L02.415 Cutaneous abscess of right lower limb; L40.50 Arthropathic psoriasis, unspecified; K70.11 Alcoholic hepatitis with ascites; K70.40 Alcoholic hepatic failure without coma; M06.9 Rheumatoid arthritis, unspecified; M19.90 Unspecified osteoarthritis, unspecified site; N28.9 Disorder of kidney and ureter, unspecified; N50.89 Other specified disorders of the male genital organs; D64.9 Anemia, unspecified; D68.9 Coagulation defect, unspecified; E11.9 Type 2 diabetes mellitus without complications; S80.11XA Contusion of right lower leg, initial encounter; W18.30XA Fall on same level, unspecified, initial encounter; I85.10 Secondary esophageal varices without bleeding; J45.909 Unspecified asthma, uncomplicated; F10.229 Alcohol dependence with intoxication, unspecified; Y90.0 Blood alcohol level of less than 20 mg/100 ml; E78.00 Pure hypercholesterolemia, unspecified; Z87.01 Personal history of pneumonia (recurrent); Z87.11 Personal history of peptic ulcer disease

== ENCOUNTER 2017-11-18 21:42 | Inpatient (IN) | payer MEDICARE, MEDICAID ==
[2017-11-18 21:42] VITALS: BMI 29.8
[2017-11-18] MEDS ORDERED: cefTRIAXone 1 gm in Water For Injection 2.1 ML IM ONE (22:54)
[2017-11-18 22:55] LABS: BASO # 0.1 K/uL (0.0-0.2); EOS # 0.3 K/uL (0.0-0.7); EOS % 2.3 % (0.0-4.0); HEMOGLOBIN 9.4 g/dL (12.0-18.0); LYMPH # 3.3 K/uL (1.0-4.3); LYMPH % 24.3 % (20.0-40.0); MEAN CORPUSCULAR HEMOGLOBIN 29.6 pg (27.0-31.0); MEAN CORPUSCULAR HGB CONC 33.2 g/dL (33.0-37.0); MEAN PLATELET VOLUME 7.5 fL (7.2-11.7); MONO # 1.2 K/uL (0.0-0.8); NEUT # 8.6 K/uL (1.8-7.0); NEUT % 63.4 % (50.0-75.0); RBC 3.19 Mil/uL (4.40-5.90); RED CELL DISTRIBUTION WIDTH 17.9 % (11.5-14.5); WHITE BLOOD COUNT 13.6 K/uL (4.8-10.8)
[2017-11-18 22:56] LABS: VENOUS BLOOD GAS BASE EXCESS -3.4 mmol/L (0.0-2.0); VENOUS BLOOD GAS PCO2 32 mmHg (40-60); VENOUS BLOOD GAS PO2 34 mm/Hg (30-55); VENOUS BLOOD PH 7.41 (7.32-7.43)
[2017-11-18] MEDS ORDERED: cefTRIAXone IV 1 gm in Dextros 50 ML IVPB ONE (23:02)
[2017-11-18 23:04] LABS: INR 1.6
[2017-11-18] MEDS ORDERED: cefTRIAXone IV 1 gm in Dextros 50 ML IV ONE (23:06)
[2017-11-18] MEDS ORDERED: Cefepime 1 GM in Sodium Chloride 0.9% 50 ML IVPB ONE (23:08)
[2017-11-18 23:10] LABS: ALB/GLOB RATIO 0.7 (1.0-2.1); ALBUMIN 2.8 g/dL (3.5-5.0); ALT/SGPT 30 U/L (21-72); AST/SGOT 57 U/L (17-59); BLOOD UREA NITROGEN 13 mg/dL (9-20); CALCIUM 8.1 mg/dl (8.6-10.4); GFR AFRICAN-AMERICAN > 60; GFR NON-AFRICAN AMERICAN 52
[2017-11-18] MEDS ORDERED: Cefepime IV 1 gm in Dextrose 1 GM/50 ML BAG IVPB STA (23:15)
[2017-11-18 23:24] LABS: B-TYPE NATRIURETIC PEPTIDE 360 pg/mL (0-450)
--- NOTE | 2017-11-19 00:13 | C.PDOC ---
History Of Present Illness 41 year old male presents to the ER with a complaint of cough and rigors for the past week. Patient was seen by Dr. Edwards this morning and claims he was told to go home and have dinner then come to the ER. Denies fever or chills. Time Seen by Provider: 11/18/17 22:33 Chief Complaint (Nursing): Fever History Per: Patient History/Exam Limitations: no limitations Onset/Duration Of Symptoms: Days Current Symptoms Are (Timing): Still Present Location Of Pain: None Associated Symptoms: Cough, Other (Rigors). denies: Fever, Chills Ear Symptoms: Bilateral: None Recent travel outside of the [place]: No Past Medical History Reviewed: Historical Data, Nursing Documentation, Vital Signs Vital Signs: Last Vital Signs Temp 101 F H 11/19/17 00:01 Pulse 120 H 11/19/17 00:01 Resp 22 11/19/17 00:01 BP 153/80 H 11/18/17 22:10 Pulse Ox 100 11/19/17 00:17 - Medical History PMH: Anemia, Anxiety, Arthritis (psoriatic arthritis; b/l elb; fingers), Asthma , CHF, Depression, Diabetes, Gastrointestinal Ulcer, HTN, Hypercholesterolemia, Pneumonia (3 years ago), Rheumatoid Arthritis, Seizures (etoh induced) Surgical History: Endoscopy - [facility] Procedures ALCOHOL DETOXIFICATION (05/28/13) CENTRAL VENOUS CATHETER PLACEMENT WITH GUIDANCE (01/31/14) CYSTOSCOPY NEC (06/08/13) DETOXIFICATION SERVICES FOR SUBSTANCE ABUSE TREATMENT (08/14/15) DRAINAGE OF RIGHT LOWER LEG SKIN, EXTERNAL APPROACH (10/15/17) EXCISION OF ASCENDING COLON, ENDO, DIAGN (10/29/15) EXCISION OF STOMACH, ENDO, DIAGN (10/29/15) GROUP PSYCHOTHERAPY (04/21/16) INSERTION OF INFUSION DEV INTO SUP VENA CAVA, PERC APPROACH (09/08/17) INSPECTION OF UPPER INTESTINAL TRACT, ENDO (08/03/17) OTHER ENDOSCOPY OF SM INTEST (01/31/14) PACKED CELL TRANSFUSION (01/31/14) RETROGRADE PYELOGRAM (06/08/13) TRANSFUSE NONAUT FRESH PLASMA IN PERIPH VEIN, PERC (08/03/17) TRANSFUSE NONAUT FROZEN PLASMA IN PERIPH VEIN, PERC (05/06/15) TRANSFUSE NONAUT RED BLOOD CELLS IN PERIPH VEIN, PERC (09/08/17) ULTRASONOGRAPHY OF LOWER EXTREMITY CONNECTIVE TISSUE (10/15/17) ULTRASONOGRAPHY OF SUPERIOR VENA CAVA, GUIDANCE (09/08/17) Family History: States: Diabetes (Father) - Social History Hx Tobacco Use: No Hx Alcohol Use: No (former) Hx Substance Use: No - Immunization History Hx Tetanus Toxoid Vaccination: Yes Hx Influenza Vaccination: Yes Hx Pneumococcal Vaccination: Yes Review Of Systems Constitutional: Negative for: Fever, Chills Cardiovascular: Negative for: Chest Pain, Palpitations Respiratory: Positive for: Cough, Other (Rigors) Gastrointestinal: Negative for: Nausea, Vomiting Physical Exam - Physical Exam Appears: Non-toxic Skin: Warm, Dry Head: Atraumatic, Normacephalic Eye(s): bilateral: Normal Inspection Oral Mucosa: Moist Chest: Symmetrical, No Tenderness Cardiovascular: Rhythm Regular Respiratory: Other (Coarse breath sounds) Gastrointestinal/Abdominal: Soft, No Tenderness, Ascites (Mild) Extremity: Pedal Edema (3/4 pitting) Pulses: Left Dorsalis Pedis: Normal, Right Dorsalis Pedis: Normal Neurological/Psych: Oriented x3, Normal Speech ED Course And Treatment - Laboratory Results Result Diagrams: 11/18/17 22:52 11/18/17 22:52 Lab Interpretation: Abnormal ECG: Interpreted By Ut ECG Rhythm: Sinus Tachycardia ECG Interpretation: Abnormal Rate From EC O2 Sat by Pulse Oximetry: 100 Pulse Ox Interpretation: Normal - Radiology CXR: Interpreted by Ut CXR Interpretation: Yes: Infiltrates (+RML) Progress Note: EKG, blood work, CXR, and urinalysis ordered. Maxipime, rocephin , and tylenol administered. Reevaluation Time: 00:28 Reassessment Condition: Improved - Physician Consult Information Outcome Of Conversation: 2300, 0030 d/w Dr. Sun- PMD, ok to admit. Medical Decision Making Medical Decision Making: RML PNA Low susp of SBP, but double covered for both Disposition Doctor Will See Patient In The: Hospital Counseled Patient/Family Regarding: Studies Performed, Diagnosis - Disposition Disposition: HOSPITALIZED Disposition Time: 00:30 Condition: GOOD Forms: [facility] (Upper Sorbian) - Clinical Impression Clinical Impression: Pneumonia, Alcoholic cirrhosis of liver - Scribe Statement The provider has reviewed the documentation as recorded by the Scribradha Guadarrama All medical record entries made by the Scribe were at my direction and personally dictated by me. I have reviewed the chart and agree that the record accurately reflects my personal performance of the history, physical exam, medical decision making, and the department course for this patient. I have also personally directed, reviewed, and agree with the discharge instructions and disposition.
[2017-11-19 03:44] LABS: SQUAMOUS EPITHIAL 5 /hpf (0-5); URINE BILIRUBIN 1+ (NEGATIVE); URINE BLOOD NEGATIVE (NEGATIVE); URINE CLARITY Clear (Clear); URINE COLOR Amber (YELLOW); URINE GLUCOSE (UA) NORMAL (Normal); URINE HYALINE CAST 0-2 /lpf (0-2); URINE LEUKOCYTE ESTERASE NEG Leu/uL (Negative); URINE PROTEIN NEGATIVE (NEGATIVE)
[2017-11-19] MEDS: Magnesium Sulfate 1 gm in D5W 1 GM/100 ML BAG IVPB SCH ×2 (08:06→08:48)
--- NOTE | 2017-11-19 08:10 | RAD ---
HISTORY: COMPARISON: 10/15/2017. TECHNIQUE: Chest PA and lateral FINDINGS: LINES AND TUBES: None. LUNG AND PLEURA: There are low lung volumes. There is airspace disease in the right middle lobe and both lower lobes. HEART AND MEDIASTINUM: The heart is not enlarged. The hilar and mediastinal contours are within normal limits. SKELETAL STRUCTURES: The bony structures are within normal limits for the patient's age. VISUALIZED UPPER ABDOMEN: Normal. OTHER FINDINGS: None. IMPRESSION: Low lung volumes may be related to poor inspiratory effort. Airspace disease in the right lower lobe and both lower lobes which could represent atelectasis or pneumonia. Follow-up PA and lateral radiographs are recommended.
--- NOTE | 2017-11-19 08:23 | RAD ---
HISTORY: Sepsis Patient COMPARISON: 10/15/2017. FINDINGS: LUNGS: The lungs are clear. There are low lung volumes. PLEURA: No significant pleural effusion identified, no pneumothorax apparent. CARDIOVASCULAR: There is moderate cardiomegaly. OSSEOUS STRUCTURES: No significant abnormalities. VISUALIZED UPPER ABDOMEN: Normal. OTHER FINDINGS: None. IMPRESSION: Moderate cardiomegaly. No active pulmonary disease.
[2017-11-19] MEDS: (Novolin R) Insulin Human Regular 100 units/ml vial SC SCH ×4 (08:27→22:35)
[2017-11-19] MEDS: Pantoprazole 40 mg EC Tab PO SCH (09:54)
[2017-11-19] MEDS: Cefepime IV 1 gm in Dextrose 1 GM/50 ML BAG IVPB SCH ×2 (09:55→18:43)
[2017-11-19] MEDS: Potassium Chloride 20 mEq/15 ml LIQ UD PO SCH (09:56)
[2017-11-19] MEDS: Albuterol-Ipratrop 3 mg / 0.5 (3 ml) UD INH SCH ×3 (10:09→20:23)
[2017-11-19] MEDS: Propranolol 5 mg Tab PO SCH ×3 (10:33→18:43)
--- NOTE | 2017-11-19 11:07 | CARD ---
APPROVED REPORT EKG Measurement Heart [id number] <Conclusion> Sinus tachycardia Inferior infarct, age undetermined Anterior infarct, age undetermined Abnormal ECG
--- NOTE | 2017-11-19 22:34 | CP.PCM.HP ---
History of Present Illness - History of Present Illness History of Present Illness: chief concern: Increasing cough, fever, chills. HPI: Patient is a 41yo male with past medical history of hypertension, alcohol- induced liver cirrhosis, hypertension, diabetes, psoriasis that presented with Complaining of increasing cough, chills, fever. For the last 3-4 days, he started having increasing shortness of breath as well as associated with cough noted. Cough mostly dry. He also having chills. Patient came to my office, yesterday, at the time patient was also tachycardic, low-grade fever noted, worsening cough, with the shortness of breath. I advised him to go to the emergency room, but the patient waited until late night to get into the hospital. In the emergency room patient was evaluated, noted to have right lower lung pneumonia. Patient also having fever, mild elevation of the lactate noted. Patient complaining of still cough, skin changes noted, diffusely especially in the face and the lower extremities and the upper abdomen. PMHx: as stated above PSHx: history of endoscopy/colonoscopy Allergies: NKDA Family hx: Father: history of heart transplant; Mother: hypertension/diabetes Social Hx: Daily alcohol consumption (~1pint of vodka per day), denies illicit drug use and former tobacco use Endoscopy hx: Endoscopy/Colonoscopy completed in 10/2015 - revealed grade 1 esophageal varices, LA Grade B Esophagitis, internal hemorrhoids, edema of the ascending colon ROS: the chart Vital signs reviewed No neck vein distention noted Chest good air entry bilaterally, no wheezing or rales noted CVS regular heart sound, no murmur noted abdominal distention noted pedal edema noted [employer] alert awake oriented -3, no functional neurological deficit patient is having tremor Psoriatic skin lesions labs reveal Low hemoglobin noted Coagulopathy X-ray showing possibly right middle lung infiltrative changes Assessment and recommended 41-year-old male, hypertension, alcoholic liver disease, diabetes, psoriasis admitted with Possibly patient now admitted with underlying pneumonia, sepsis, and associated with the tachycardia and systemic symptoms. We will start the patient on cefepime 1 g twice a day. Monitor the respiratory status. Chest x-ray. Patient is having significant skin psoriatic changes, patient will need a topical corticosteroid. Watch for hepatic encephalopathy. We will continue the lactulose. Glucose monitoring. Discussed with the patient. We will follow the patient Present on Admission - Present on Admission Any Indicators Present on Admission: No History of DVT/PE: No History of Uncontrolled Diabetes: No Urinary Catheter: No Decubitus Ulcer Present: No Past Patient History - Infectious Disease Hx of Infectious Diseases: None - Past Medical History & Family History Past Medical History?: Yes - Past Social History Smoking Status: Never Smoked - CARDIAC Hx Congestive Heart Failure: Yes Hx Hypercholesterolemia: Yes Hx Hypertension: Yes - PULMONARY Hx Asthma: Yes Hx Pneumonia: Yes (3 years ago) - NEUROLOGICAL Hx Seizures: Yes (etoh induced) - HEENT Hx HEENT Problems: No - RENAL Hx Chronic Kidney Disease: No - ENDOCRINE/METABOLIC Hx Endocrine Disorders: Yes Hx Diabetes Mellitus Type 2: Yes - HEMATOLOGICAL/ONCOLOGICAL Hx Anemia: Yes - INTEGUMENTARY Hx Dermatological Problems: Yes Hx Psoriasis: Yes Other/Comment: Psoriatic Arthritis - MUSCULOSKELETAL/RHEUMATOLOGICAL Hx Falls: No - GASTROINTESTINAL Other/Comment: Liver disease - GENITOURINARY/GYNECOLOGICAL Hx Sexually Transmitted Disorders: No - PSYCHIATRIC Hx Substance Use: No - SURGICAL HISTORY Hx Surgeries: Yes Hx Orthopedic Surgery: Yes (rt. knee swelling) - ANESTHESIA Hx Anesthesia: Yes Hx Anesthesia Reactions: No Hx Malignant Hyperthermia: No Meds Allergies/Adverse Reactions: Allergies Allergy/AdvReac Type Severity Reaction Status Date / Time No Known Allergies Allergy Verified 11/18/17 22:26 Results - Vital Signs Recent Vital Signs: Last Vital Signs Temp 98.4 F 11/19/17 15:00 Pulse 91 H 11/19/17 18:54 Resp 20 11/19/17 15:00 BP 124/71 11/19/17 18:42 Pulse Ox 96 11/19/17 15:00 - Labs Result Diagrams: 11/18/17 22:52 11/18/17 22:52 Labs: Laboratory Results - last 24 hr 11/18/17 11/18/17 11/18/17 22:52 22:52 22:52 WBC 13.6 H D RBC 3.19 L Hgb 9.4 L Hct 28.4 L MCV 89.0 MCH 29.6 MCHC 33.2 RDW 17.9 H Plt Count 95 L D MPV 7.5 Neut % (Auto) 63.4 Lymph % (Auto) 24.3 [place] % (Auto) 9.0 Eos % (Auto) 2.3 Baso % (Auto) 1.0 Neut # (Auto) 8.6 H Lymph # (Auto) 3.3 [place] # (Auto) 1.2 H Eos # (Auto) 0.3 Baso # (Auto) 0.1 PT 18.0 H INR 1.6 APTT 36 H pO2 34 VBG pH 7.41 VBG pCO2 32 L VBG HCO3 21.4 VBG Total CO2 21.3 L VBG O2 Sat (Calc) 68.3 H VBG Base Excess -3.4 L VBG Potassium 3.7 Sodium 136.0 Chloride 107.0 Glucose 181 H Lactate 3.9 H Potassium Carbon Dioxide Anion Gap BUN Creatinine Est GFR ( Amer) Est GFR (Non-Af Amer) POC Glucose (mg/dL) Random Glucose Lactic Acid Calcium Phosphorus Magnesium Total Bilirubin AST ALT Alkaline Phosphatase Troponin I C-React Prot High Sens NT-Pro-B Natriuret Pep Total Protein Albumin Globulin Albumin/Globulin Ratio Venous Blood Potassium 3.7 Urine Color Urine Clarity Urine pH Ur Specific [place] Urine Protein Urine Glucose (UA) Urine Ketones Urine Blood Urine Nitrate Urine Bilirubin Urine Urobilinogen Ur Leukocyte Esterase Urine WBC (Auto) Urine RBC (Auto) Ur Squamous Epith Cells Hyaline Casts 11/18/17 11/18/17 11/19/17 22:52 22:52 00:52 WBC RBC Hgb Hct MCV MCH MCHC RDW Plt Count MPV Neut % (Auto) Lymph % (Auto) [place] % (Auto) Eos % (Auto) Baso % (Auto) Neut # (Auto) Lymph # (Auto) [place] # (Auto) Eos # (Auto) Baso # (Auto) PT INR APTT pO2 VBG pH VBG pCO2 VBG HCO3 VBG Total CO2 VBG O2 Sat (Calc) VBG Base Excess VBG Potassium Sodium 138 Chloride 106 Glucose Lactate Potassium 4.2 Carbon Dioxide 20 L Anion Gap 16 BUN 13 Creatinine 1.5 Est GFR ( Amer) > 60 Est GFR (Non-Af Amer) 52 POC Glucose (mg/dL) Random Glucose 161 H Lactic Acid 2.7 H Calcium 8.1 L Phosphorus 3.0 Magnesium 1.3 L Total Bilirubin 2.3 H AST 57 ALT 30 Alkaline Phosphatase 169 H Troponin I 0.0460 C-React Prot High Sens 2.16 NT-Pro-B Natriuret Pep 360 Total Protein 7.1 Albumin 2.8 L D Globulin 4.2 H Albumin/Globulin Ratio 0.7 L Venous Blood Potassium Urine Color Urine Clarity Urine pH Ur Specific [place] Urine Protein Urine Glucose (UA) Urine Ketones Urine Blood Urine Nitrate Urine Bilirubin Urine Urobilinogen Ur Leukocyte Esterase Urine WBC (Auto) Urine RBC (Auto) Ur Squamous Epith Cells Hyaline Casts 11/19/17 11/19/17 11/19/17 03:16 06:25 10:56 WBC RBC Hgb Hct MCV MCH MCHC RDW Plt Count MPV Neut % (Auto) Lymph % (Auto) [place] % (Auto) Eos % (Auto) Baso % (Auto) Neut # (Auto) Lymph # (Auto) [place] # (Auto) Eos # (Auto) Baso # (Auto) PT INR APTT pO2 VBG pH VBG pCO2 VBG HCO3 VBG Total CO2 VBG O2 Sat (Calc) VBG Base Excess VBG Potassium Sodium Chloride Glucose Lactate Potassium Carbon Dioxide Anion Gap BUN Creatinine Est GFR ( Amer) Est GFR (Non-Af Amer) POC Glucose (mg/dL) 104 156 H Random Glucose Lactic Acid Calcium Phosphorus Magnesium Total Bilirubin AST ALT Alkaline Phosphatase Troponin I C-React Prot High Sens NT-Pro-B Natriuret Pep Total Protein Albumin Globulin Albumin/Globulin Ratio Venous Blood Potassium Urine Color [place] Urine Clarity Clear Urine pH 5.0 Ur Specific [place] 1.019 Urine Protein Negative Urine Glucose (UA) Normal Urine Ketones Negative Urine Blood Negative Urine Nitrate Negative Urine Bilirubin 1+ H Urine Urobilinogen 4.0 Ur Leukocyte Esterase Neg Urine WBC (Auto) 12 H Urine RBC (Auto) 4 H Ur Squamous Epith Cells 5 Hyaline Casts 0-2 11/19/17 11/19/17 17:39 21:17 WBC RBC Hgb Hct MCV MCH MCHC RDW Plt Count MPV Neut % (Auto) Lymph % (Auto) [place] % (Auto) Eos % (Auto) Baso % (Auto) Neut # (Auto) Lymph # (Auto) [place] # (Auto) Eos # (Auto) Baso # (Auto) PT INR APTT pO2 VBG pH VBG pCO2 VBG HCO3 VBG Total CO2 VBG O2 Sat (Calc) VBG Base Excess VBG Potassium Sodium Chloride Glucose Lactate Potassium Carbon Dioxide Anion Gap BUN Creatinine Est GFR ( Amer) Est GFR (Non-Af Amer) POC Glucose (mg/dL) 126 H 145 H Random Glucose Lactic Acid Calcium Phosphorus Magnesium Total Bilirubin AST ALT Alkaline Phosphatase Troponin I C-React Prot High Sens NT-Pro-B Natriuret Pep Total Protein Albumin Globulin Albumin/Globulin Ratio Venous Blood Potassium Urine Color Urine Clarity Urine pH Ur Specific [place] Urine Protein Urine Glucose (UA) Urine Ketones Urine Blood Urine Nitrate Urine Bilirubin Urine Urobilinogen Ur Leukocyte Esterase Urine WBC (Auto) Urine RBC (Auto) Ur Squamous Epith Cells Hyaline Casts
[2017-11-20] MEDS: Albuterol-Ipratrop 3 mg / 0.5 (3 ml) UD INH SCH ×4 (01:06→19:41)
[2017-11-20] MEDS: guaiFENesin 100 mg/5 ml Syrup UD PO PRN ×4 (03:52→18:17)
[2017-11-20] MEDS: Cefepime IV 1 gm in Dextrose 1 GM/50 ML BAG IVPB SCH ×2 (06:16→18:19)
[2017-11-20 08:05] LABS: BASO # 0.1 K/uL (0.0-0.2); BASO % 0.6 % (0.0-2.0); EOS # 1.6 K/uL (0.0-0.7); EOS % 16.2 % (0.0-4.0); HEMOGLOBIN 8.7 g/dL (12.0-18.0); LYMPH # 2.8 K/uL (1.0-4.3); LYMPH % 29.4 % (20.0-40.0); MEAN CELL VOLUME 88.6 fL (80.0-94.0); MEAN CORPUSCULAR HEMOGLOBIN 29.7 pg (27.0-31.0); MEAN CORPUSCULAR HGB CONC 33.5 g/dL (33.0-37.0); MONO # 0.8 K/uL (0.0-0.8); MONO % 8.1 % (0.0-10.0); NEUT # 4.4 K/uL (1.8-7.0); NEUT % 45.7 % (50.0-75.0); RBC 2.92 Mil/uL (4.40-5.90); RED CELL DISTRIBUTION WIDTH 17.1 % (11.5-14.5); WHITE BLOOD COUNT 9.6 K/uL (4.8-10.8)
[2017-11-20] MEDS: (Novolin R) Insulin Human Regular 100 units/ml vial SC SCH ×4 (08:06→22:35)
--- NOTE | 2017-11-20 08:31 | RAD ---
HISTORY: PNA COMPARISON: 11/19/2017. FINDINGS: LUNGS: The lungs are clear. PLEURA: No significant pleural effusion identified, no pneumothorax apparent. CARDIOVASCULAR: There is mild cardiomegaly. OSSEOUS STRUCTURES: No significant abnormalities. VISUALIZED UPPER ABDOMEN: Normal. OTHER FINDINGS: None. IMPRESSION: No active pulmonary disease.
[2017-11-20 08:37] LABS: ALB/GLOB RATIO 0.6 (1.0-2.1); ALBUMIN 2.2 g/dL (3.5-5.0); ALT/SGPT 30 U/L (21-72); AST/SGOT 32 U/L (17-59); BLOOD UREA NITROGEN 11 mg/dL (9-20); GFR AFRICAN-AMERICAN > 60; GFR NON-AFRICAN AMERICAN > 60
[2017-11-20] MEDS: Propranolol 5 mg Tab PO SCH ×3 (09:56→17:51)
[2017-11-20] MEDS: Multiple Vitamins Oral Solution PO SCH (09:57)
[2017-11-20] MEDS: Zinc Oxide Topical 30 gm Tube TOP SCH (09:57)
[2017-11-20] MEDS: Potassium Chloride 20 mEq/15 ml LIQ UD PO SCH (09:58)
[2017-11-20] MEDS: Pantoprazole 40 mg EC Tab PO SCH (09:58)
[2017-11-20] MEDS: Hydrocortisone 1% Cream (30 GM) TOP SCH ×2 (09:59→17:51)
--- NOTE | 2017-11-20 19:46 | CP.PCM.PN ---
Subjective - Date & Time of Evaluation Date of Evaluation: 11/20/17 Time of Evaluation: 19:46 - Subjective Subjective: The patient today feeling somewhat better. Still having cough. The skin changes still noted. The right leg swelling is better. Patient is able to eat better today. Cough nonproductive mostly. On examination: Vital signs stable today. No fever noted. Saturation of the oxygen is normal. Chest bilateral good air entry, wheezing noted, regular heart sound, abdominal tenderness negative. Obesity present. Bilateral pedal edema noted Today labs reviewed Renal functions is normal. WBC 9.6 hemoglobin 8.7 platelet is 85 noted X-ray of the chest improvement in the right middle lung zone haziness Assessment and recommendation: Patient is a 41-year-old male with a history of hypertension, diabetes, psoriasis, liver cirrhosis alcoholic, alcoholic gastropathy, history of hepatic encephalopathy admitted with acute likely nosocomial pneumonia. Improving at this time. Psoriasis also having worsening changes in the skin noted. Currently improving with antibiotic, will continue 2 more days of antibiotic. Supportive treatment. Patient will be followed up by hospitalist from tomorrow. Objective - Vital Signs/Intake and Output Vital Signs (last 24 hours): Temp Pulse Resp BP Pulse Ox 98 F 89 20 124/69 99 11/20/17 15:00 11/20/17 19:32 11/20/17 15:00 11/20/17 17:51 11/20/17 15:00 Intake and Output: 11/20/1718 18:59 06:59 Intake Total 350 Output Total 400 Balance -50 - Medications Medications: Current Medications Albuterol/Ipratropium (Duoneb 3 Mg/0.5 Mg (3 Ml) Ud) 3 ml INH RQ6 FLY Last Admin: 11/20/17 19:41 Dose: Not Given Folic Acid (Folic Acid) 1 mg PO DAILY [facility] Last Admin: 11/20/17 09:58 Dose: 1 mg Furosemide (Lasix) 40 mg PO BID [facility] Last Admin: 11/20/17 17:51 Dose: 40 mg Guaifenesin (Robitussin) 100 mg PO Q4H PRN PRN Reason: Cough Last Admin: 11/20/17 18:17 Dose: 100 mg Hydrocortisone (Cortizone 1% Cream) 0 gm TOP BID [facility] Last Admin: 11/20/17 17:51 Dose: 1 applic Cefepime HCl (Maxipime Iv 1 Gm Premix) 1 gm in 50 mls @ 100 mls/hr IVPB Q12H FLY PRN Reason: Protocol Last Admin: 11/20/17 18:19 Dose: 100 mls/hr Insulin Human Regular (Novolin R) 0 unit SC ACHS FLY PRN Reason: Protocol Last Admin: 11/20/17 17:25 Dose: Not Given Lactulose (Enulose) 20 gm PO BID FLY Last Admin: 11/20/17 18:18 Dose: Not Given Multivitamins/Vitamin C (Multi-Delyn Liquid) 5 ml PO DAILY FLY Last Admin: 11/20/17 09:57 Dose: 5 ml Pantoprazole Sodium (Protonix Ec Tab) 40 mg PO DAILY [facility] Last Admin: 11/20/17 09:58 Dose: 40 mg Petrolatum (Desitin Original) 0 gm TOP DAILY FLY Last Admin: 11/20/17 09:57 Dose: 1 appl Potassium Chloride (Potassium Chloride Oral Soln) 20 meq PO DAILY [facility] Last Admin: 11/20/17 09:58 Dose: 20 meq Propranolol HCl (Inderal) 5 mg PO TID FLY Last Admin: 11/20/17 17:51 Dose: 5 mg Spironolactone (Aldactone) 25 mg PO BID [facility] Last Admin: 11/20/17 17:51 Dose: 25 mg Thiamine HCl (Vitamin B1 Tab) 100 mg PO DAILY [facility] Last Admin: 11/20/17 09:56 Dose: 100 mg Zinc Sulfate (Zinc Sulfate 220 Mg Cap) 220 mg PO DAILY [facility] Last Admin: 11/20/17 09:56 Dose: 220 mg - Labs Labs: 11/20/17 07:56 11/20/17 07:56 PT 18.0 SECONDS (9.7-12.2) H 11/18/17 22:52 INR 1.6 11/18/17 22:52 APTT 36 SECONDS (21-34) H 11/18/17 22:52
[2017-11-21] MEDS: Albuterol-Ipratrop 3 mg / 0.5 (3 ml) UD INH SCH ×4 (01:30→19:25)
[2017-11-21] MEDS: Cefepime IV 1 gm in Dextrose 1 GM/50 ML BAG IVPB SCH ×2 (06:19→21:19)
[2017-11-21] MEDS: (Novolin R) Insulin Human Regular 100 units/ml vial SC SCH ×4 (08:15→21:20)
[2017-11-21] MEDS: Pantoprazole 40 mg EC Tab PO SCH (10:09)
[2017-11-21] MEDS: guaiFENesin 100 mg/5 ml Syrup UD PO PRN ×2 (10:09→13:58)
[2017-11-21] MEDS: Hydrocortisone 1% Cream (30 GM) TOP SCH ×2 (10:09→17:48)
[2017-11-21] MEDS: Propranolol 5 mg Tab PO SCH ×3 (10:10→18:37)
[2017-11-21] MEDS: Potassium Chloride 20 mEq/15 ml LIQ UD PO SCH (10:10)
[2017-11-21] MEDS: Multiple Vitamins Oral Solution PO SCH (10:10)
[2017-11-21] MEDS: Zinc Oxide Topical 30 gm Tube TOP SCH (10:11)
--- NOTE | 2017-11-21 10:22 | CP.PCM.PN ---
<Bruno Adam - Last Filed: 11/21/17 15:42> Subjective - Date & Time of Evaluation Date of Evaluation: 11/21/17 Time of Evaluation: 14:00 - Subjective Subjective: PGY-[address] [place]. No acute events noted overnight. Patient reports improvement in non-productive cough. Stated he felt better compared to yesterday. Denied any pain, fevers. Stated he takes a cream for his psoriasis but can't recall the name. Did not wish to have PT because of pain in his right knee due to fall he had 2 weeks ago. Objective - Vital Signs/Intake and Output Vital Signs (last 24 hours): Temp Pulse Resp BP Pulse Ox 98.8 F 90 18 109/55 L 98 11/21/17 07:05 11/21/17 07:05 11/21/17 07:05 11/21/17 07:05 11/21/17 07:05 Intake and Output: 11/21/17 11/21/17 06:59 18:59 Intake Total 350 Output Total 950 Balance -600 - Medications Medications: Current Medications Albuterol/Ipratropium (Duoneb 3 Mg/0.5 Mg (3 Ml) Ud) 3 ml INH RQ6 FLY Last Admin: 11/21/17 09:24 Dose: Not Given Folic Acid (Folic Acid) 1 mg PO DAILY FLY Last Admin: 11/20/17 09:58 Dose: 1 mg Furosemide (Lasix) 40 mg PO BID FLY Last Admin: 11/20/17 17:51 Dose: 40 mg Guaifenesin (Robitussin) 100 mg PO Q4H PRN PRN Reason: Cough Last Admin: 11/20/17 18:17 Dose: 100 mg Hydrocortisone (Cortizone 1% Cream) 0 gm TOP BID FLY Last Admin: 11/20/17 17:51 Dose: 1 applic Cefepime HCl (Maxipime Iv 1 Gm Premix) 1 gm in 50 mls @ 100 mls/hr IVPB Q12H FLY PRN Reason: Protocol Last Admin: 11/21/17 06:19 Dose: 100 mls/hr Insulin Human Regular (Novolin R) 0 unit SC ACHS FLY PRN Reason: Protocol Last Admin: 11/21/17 08:15 Dose: Not Given Lactulose (Enulose) 20 gm PO BID FLY Last Admin: 11/20/17 18:18 Dose: Not Given Multivitamins/Vitamin C (Multi-Delyn Liquid) 5 ml PO DAILY [facility] Last Admin: 11/20/17 09:57 Dose: 5 ml Pantoprazole Sodium (Protonix Ec Tab) 40 mg PO DAILY [facility] Last Admin: 11/20/17 09:58 Dose: 40 mg Petrolatum (Desitin Original) 0 gm TOP DAILY [facility] Last Admin: 11/20/17 09:57 Dose: 1 appl Potassium Chloride (Potassium Chloride Oral Soln) 20 meq PO DAILY [facility] Last Admin: 11/20/17 09:58 Dose: 20 meq Propranolol HCl (Inderal) 5 mg PO TID [facility] Last Admin: 11/20/17 17:51 Dose: 5 mg Spironolactone (Aldactone) 25 mg PO BID [facility] Last Admin: 11/20/17 17:51 Dose: 25 mg Thiamine HCl (Vitamin B1 Tab) 100 mg PO DAILY [facility] Last Admin: 11/20/17 09:56 Dose: 100 mg Zinc Sulfate (Zinc Sulfate 220 Mg Cap) 220 mg PO DAILY [facility] Last Admin: 11/20/17 09:56 Dose: 220 mg - Labs Labs: 11/20/17 07:56 11/20/17 07:56 PT 18.0 SECONDS (9.7-12.2) H 11/18/17 22:52 INR 1.6 11/18/17 22:52 APTT 36 SECONDS (21-34) H 11/18/17 22:52 - Constitutional Appears: No Acute Distress, Unkempt, Older Than Stated Age - Head Exam Head Exam: ATRAUMATIC, NORMAL INSPECTION - Eye Exam Eye Exam: EOMI Pupil Exam: PERRL - ENT Exam ENT Exam: Mucous Membranes Moist - Neck Exam Neck Exam: Full ROM, Normal Inspection - Respiratory Exam Respiratory Exam: Clear to Ausculation Bilateral, NORMAL BREATHING PATTERN. absent: Rales, Rhonchi, Wheezes - Cardiovascular Exam Cardiovascular Exam: REGULAR RHYTHM, +S1, +S2. absent: Bradycardia, Tachycardia , JVD, Murmur - GI/Abdominal Exam GI & Abdominal Exam: Soft, Normal Bowel Sounds. absent: Tenderness Additional comments: Central obesity - Extremities Exam Extremities Exam: Normal Capillary Refill, Normal Inspection, Tenderness - Neurological Exam Neurological Exam: Alert, Awake, Oriented x3 - Psychiatric Exam Psychiatric exam: Normal Affect, Normal Mood - Skin Skin Exam: Dry. absent: Erythema, Urticaria, Vesicles Additional comments: plaques of thickened, scaling skin covering entire body from head to toe Assessment and Plan - Assessment and Plan (Free Text) Assessment: Right Lung Pneumonia Afebrile, No white count, non-productive cough improved, O2 saturation normal Imaging: CXR PA/LA * Airspace disease in the right lower lobe and both lower lobes which could represent atelectasis or pneumonia. Medications: Duoneb 3ml INH RQ6H Guaifenesin 100mg PO Q4H PRN for cough Cefepine IV Q1 Q12H until 11/22/17 Alcoholic Liver Cirrhosis Hx of hepatic encephalopathy Medications: Folic Acid 1mg PO QD Lasix 40mg PO BID Lactulose 20g PO BID MV 5ml PO QD Potassium Chloride 20 meq PO QD Spironolactone 25mg PO BID Thiamine 100mg PO QD Psoriasis Patient states his flares are best controlled by a cream which he has at home, but cannot recall the name Medications: Zinc Sulfate 220mg PO QD Zinc Oxide topical QD Hydrocortisone 1% creat topical BID HTN BP well controlled Medications: Propranolol 5mg PO TID Diabetes In low 100s Accuchecks Regular insulin ACHS UTI Asymptomatic Urine Cx 11/19 gram positive cocci Blood Cx 11/18 NEGATIVE Cefepime 1g IVP Q12H Right Knee Pain F/U right knee xray Prophylactic Measures SCDs Protonix 40mg PO QD Heart healthy diet <Cuauhtemoc Lind - Last Filed: 11/22/17 14:55> Objective - Vital Signs/Intake and Output Vital Signs (last 24 hours): Temp Pulse Resp BP Pulse Ox 98.1 F 95 H 20 130/74 100 11/22/17 07:00 11/22/17 12:00 11/22/17 07:00 11/22/17 09:21 11/22/17 07:00 Intake and Output: 11/22/17 11/22/17 06:59 18:59 Intake Total 400 Output Total 400 Balance 0 - Medications Medications: Current Medications Albuterol/Ipratropium (Duoneb 3 Mg/0.5 Mg (3 Ml) Ud) 3 ml INH RQ4 FLY Last Admin: 11/22/17 12:03 Dose: Not Given Folic Acid (Folic Acid) 1 mg PO DAILY FLY Last Admin: 06/25/18 09:20 Dose: 1 mg Furosemide (Lasix) 40 mg PO BID [facility] Last Admin: 11/22/17 09:21 Dose: 40 mg Guaifenesin (Robitussin) 100 mg PO Q4H PRN PRN Reason: Cough Last Admin: 11/22/17 09:23 Dose: 100 mg Hydrocortisone (Cortizone 1% Cream) 0 gm TOP BID [facility] Last Admin: 11/22/17 10:22 Dose: Not Given Cefepime HCl 1 gm/ Dextrose 50 mls @ 100 mls/hr IVPB Q12H FLY PRN Reason: Protocol Insulin Human Regular (Novolin R) 0 unit SC ACHS FLY PRN Reason: Protocol Last Admin: 11/22/17 11:35 Dose: 2 units Lactulose (Enulose) 20 gm PO BID [facility] Last Admin: 11/22/17 09:24 Dose: Not Given Multivitamins/Vitamin C (Multi-Delyn Liquid) 5 ml PO DAILY [facility] Last Admin: 11/22/17 09:24 Dose: 5 ml Pantoprazole Sodium (Protonix Ec Tab) 40 mg PO DAILY [facility] Last Admin: 11/22/17 09:22 Dose: 40 mg Petrolatum (Desitin Original) 0 gm TOP DAILY [facility] Last Admin: 11/22/17 10:22 Dose: Not Given Potassium Chloride (Potassium Chloride Oral Soln) 20 meq PO DAILY [facility] Last Admin: 11/22/17 09:22 Dose: 20 meq Propranolol HCl (Inderal) 5 mg PO TID [facility] Last Admin: 11/22/17 14:30 Dose: Not Given Saccharomyces Boulardii (Florastor) 250 mg PO BID [facility] Spironolactone (Aldactone) 25 mg PO BID [facility] Last Admin: 11/22/17 09:19 Dose: 25 mg Thiamine HCl (Vitamin B1 Tab) 100 mg PO DAILY [facility] Last Admin: 11/22/17 09:22 Dose: 100 mg Vitamin A (Vitamin A&D) 1 applic TP BID [facility] Last Admin: 11/22/17 10:23 Dose: Not Given Zinc Sulfate (Zinc Sulfate 220 Mg Cap) 220 mg PO DAILY [facility] Last Admin: 11/22/17 09:22 Dose: 220 mg - Labs Labs: 11/22/17 06:24 11/22/17 06:24 PT 18.0 SECONDS (9.7-12.2) H 11/18/17 22:52 INR 1.6 11/18/17 22:52 APTT 36 SECONDS (21-34) H 11/18/17 22:52 Attending/Attestation - Attestation I have personally seen and examined this patient.: Yes I have fully participated in the care of the patient.: Yes I have reviewed all pertinent clinical information, including history, physical exam and plan: Yes Notes (Text): 11/22/17 14:44 Patient was seen and examined. Other than the extensive psoriasis, exam was unremarkable. The following instructions were explained to patient: 1). Schedule follow up with your primary care physician Dr. Edwards to take place next week so that your care with Dermatology and Gastroenterology can be coordinated 2). Schedule follow u with your Rapid Transit Operator in [place] for follow up of your Psoriasis. 3). You stated that you had enough of the topical cream for your Psoriasis prescribed by your Rapid Transit Operator, please use as directed by Rapid Transit Operator. 4). You no longer need antibiotics. 5). Please have the following prescriptions filled at your pharmacy and use as directed: Lasix 40 mg, 1 tablet by mouth at 8 AM and 2 PM, Dispense #60, NO refills Potassium Chloride 20 mEQ, 1 tablet by mouth at 8 AM, Dispense #30, NO refills Propanolol 5 mg, 1 tablet by mouth at 8 AM, 2 PM, and 8 PM, Dispense #90, NO refills Aldactone 25 mg, 1 tablet by mouth at 8 AM and 8 PM, Dispense #60, NO refills Protonix 40 mg, 1 tablet by mouth at 8 AM, Dispense #30, NO refills 6). Please take care. Cuauhtemoc Lind D.O.
[2017-11-21 16:55] VITALS: RESP 20
[2017-11-21 17:06] LABS: BASO % 0.4 % (0.0-2.0); EOS % 11.6 % (0.0-4.0); HEMOGLOBIN 8.4 g/dL (12.0-18.0); LYMPH % 34.4 % (20.0-40.0); MEAN CELL VOLUME 88.8 fL (80.0-94.0); MEAN CORPUSCULAR HGB CONC 32.7 g/dL (33.0-37.0); MEAN PLATELET VOLUME 7.6 fL (7.2-11.7); MONO # 0.9 K/uL (0.0-0.8); NEUT # 3.6 K/uL (1.8-7.0); NEUT % 42.6 % (50.0-75.0); RBC 2.91 Mil/uL (4.40-5.90); RED CELL DISTRIBUTION WIDTH 17.4 % (11.5-14.5); WHITE BLOOD COUNT 8.6 K/uL (4.8-10.8)
[2017-11-21] MEDS ORDERED: Vitamins A & D Oint UD Foilpak TOP SCH (18:00)
[2017-11-21 19:03] LABS: ALB/GLOB RATIO 0.6 (1.0-2.1); ALBUMIN 2.1 g/dL (3.5-5.0); ALT/SGPT 28 U/L (21-72); AST/SGOT 29 U/L (17-59); BLOOD UREA NITROGEN 14 mg/dL (9-20); CALCIUM 7.9 mg/dl (8.6-10.4); GFR AFRICAN-AMERICAN > 60; GFR NON-AFRICAN AMERICAN > 60
[2017-11-21] MEDS: Vitamin A/D oint 60G TP SCH (21:20)
[2017-11-22] MEDS: Albuterol-Ipratrop 3 mg / 0.5 (3 ml) UD INH SCH ×5 (02:50→16:15)
[2017-11-22] MEDS: guaiFENesin 100 mg/5 ml Syrup UD PO PRN ×2 (02:52→09:23)
[2017-11-22] MEDS: Cefepime IV 1 gm in Dextrose 1 GM/50 ML BAG IVPB SCH (06:17)
[2017-11-22 06:34] LABS: BASO % 0.4 % (0.0-2.0); EOS % 10.7 % (0.0-4.0); HEMOGLOBIN 8.6 g/dL (12.0-18.0); MEAN CELL VOLUME 88.3 fL (80.0-94.0); MEAN CORPUSCULAR HEMOGLOBIN 29.5 pg (27.0-31.0); MEAN CORPUSCULAR HGB CONC 33.4 g/dL (33.0-37.0); MEAN PLATELET VOLUME 7.6 fL (7.2-11.7); MONO # 0.9 K/uL (0.0-0.8); MONO % 10.3 % (0.0-10.0); NEUT % 44.6 % (50.0-75.0); NRBC % 0.1 % (0.0-2.0); RBC 2.92 Mil/uL (4.40-5.90); RED CELL DISTRIBUTION WIDTH 17.2 % (11.5-14.5); WHITE BLOOD COUNT 8.9 K/uL (4.8-10.8)
[2017-11-22] MEDS: (Novolin R) Insulin Human Regular 100 units/ml vial SC SCH ×2 (07:31→11:35)
[2017-11-22 07:34] LABS: ALB/GLOB RATIO 0.6 (1.0-2.1); ALBUMIN 2.1 g/dL (3.5-5.0); ALT/SGPT 24 U/L (21-72); AST/SGOT 31 U/L (17-59); BLOOD UREA NITROGEN 15 mg/dL (9-20); CALCIUM 7.8 mg/dl (8.6-10.4); GFR AFRICAN-AMERICAN > 60; GFR NON-AFRICAN AMERICAN > 60
[2017-11-22 07:53] VITALS: TEMP 98.1; O2SAT 100
[2017-11-22] MEDS: Propranolol 5 mg Tab PO SCH ×2 (09:21→14:30)
[2017-11-22] MEDS: Potassium Chloride 20 mEq/15 ml LIQ UD PO SCH (09:22)
[2017-11-22] MEDS: Pantoprazole 40 mg EC Tab PO SCH (09:22)
[2017-11-22 09:23] VITALS: BP 130/74
[2017-11-22] MEDS: Multiple Vitamins Oral Solution PO SCH (09:24)
[2017-11-22] MEDS: Zinc Oxide Topical 30 gm Tube TOP SCH (10:22)
[2017-11-22] MEDS: Hydrocortisone 1% Cream (30 GM) TOP SCH (10:22)
[2017-11-22] MEDS: Vitamin A/D oint 60G TP SCH (10:23)
[2017-11-22 12:55] VITALS: PULSE 95
--- NOTE | 2017-11-22 15:51 | CP.PCM.DIS ---
Provider - Provider Date of Admission: 11/19/17 00:31 Attending physician: Damaris Edwards MD Primary care physician: PMD: Dr Edwards Time Spent in preparation of Discharge (in minutes): 44 Diagnosis - Discharge Diagnosis (1) Alcoholic cirrhosis of liver Status: Chronic Priority: High (2) Pneumonia Status: Resolved Priority: High (3) Psoriasis Status: Chronic Priority: High Hospital Course - Lab Results Lab Results: Micro Results 11/18/17 22:43 Blood Blood Culture - Preliminary NO GROWTH AFTER 3 DAYS 11/18/17 22:43 Blood Blood Culture - Preliminary NO GROWTH AFTER 3 DAYS 11/19/17 01:49 Urine,Clean Catch Urine Culture - Final Gram Positive Cocci Most Recent Lab Values WBC 8.9 K/uL (4.8-10.8) 11/22/17 06:24 RBC 2.92 Mil/uL (4.40-5.90) L 11/22/17 06:24 Hgb 8.6 g/dL (12.0-18.0) L 11/22/17 06:24 Hct 25.7 % (35.0-51.0) L 11/22/17 06:24 MCV 88.3 fL (80.0-94.0) 11/22/17 06:24 MCH 29.5 pg (27.0-31.0) 11/22/17 06:24 MCHC 33.4 g/dL (33.0-37.0) 11/22/17 06:24 RDW 17.2 % (11.5-14.5) H 11/22/17 06:24 Plt Count 102 K/uL (130-400) L 11/22/17 06:24 MPV 7.6 fL (7.2-11.7) 11/22/17 06:24 Neut % (Auto) 44.6 % (50.0-75.0) L 11/22/17 06:24 Lymph % (Auto) 34.0 % (20.0-40.0) 11/22/17 06:24 [place] % (Auto) 10.3 % (0.0-10.0) H 11/22/17 06:24 Eos % (Auto) 10.7 % (0.0-4.0) H 11/22/17 06:24 Baso % (Auto) 0.4 % (0.0-2.0) 11/22/17 06:24 Neut # (Auto) 4.0 K/uL (1.8-7.0) 11/22/17 06:24 Lymph # (Auto) 3.0 K/uL (1.0-4.3) 11/22/17 06:24 [place] # (Auto) 0.9 K/uL (0.0-0.8) H 11/22/17 06:24 Eos # (Auto) 1.0 K/uL (0.0-0.7) H 11/22/17 06:24 Baso # (Auto) 0.0 K/uL (0.0-0.2) 11/22/17 06:24 PT 18.0 SECONDS (9.7-12.2) H 11/18/17 22:52 INR 1.6 11/18/17 22:52 APTT 36 SECONDS (21-34) H 11/18/17 22:52 pO2 34 mm/Hg (30-55) 11/18/17 22:52 VBG pH 7.41 (7.32-7.43) 11/18/17 22:52 VBG pCO2 32 mmHg (40-60) L 11/18/17 22:52 VBG HCO3 21.4 mmol/L 11/18/17 22:52 VBG Total CO2 21.3 mmol/L (22-28) L 11/18/17 22:52 VBG O2 Sat (Calc) 68.3 % (40-65) H 11/18/17 22:52 VBG Base Excess -3.4 mmol/L (0.0-2.0) L 11/18/17 22:52 VBG Potassium 3.7 mmol/L (3.6-5.2) 11/18/17 22:52 Sodium 136.0 mmol/l (132-148) 11/18/17 22:52 Chloride 107.0 mmol/L (98-107) 11/18/17 22:52 Glucose 181 mg/dl (75-110) H 11/18/17 22:52 Lactate 3.9 mmol/L (0.7-2.1) H 11/18/17 22:52 Sodium 136 mmol/L (132-148) 11/22/17 06:24 Potassium 4.3 mmol/L (3.6-5.2) 11/22/17 06:24 Chloride 108 mmol/L (98-107) H 11/22/17 06:24 Carbon Dioxide 19 mmol/L (22-30) L 11/22/17 06:24 Anion Gap 14 (10-20) 11/22/17 06:24 BUN 15 mg/dL (9-20) 11/22/17 06:24 Creatinine 1.3 mg/dL (0.8-1.5) 11/22/17 06:24 Est GFR ( Amer) > 60 11/22/17 06:24 Est GFR (Non-Af Amer) > 60 11/22/17 06:24 POC Glucose (mg/dL) 193 mg/dL (65-110) H 11/22/17 11:05 Random Glucose 88 mg/dL (75-110) 11/22/17 06:24 Lactic Acid 2.7 mmol/L (0.7-2.1) H 11/19/17 00:52 Calcium 7.8 mg/dl (8.6-10.4) L 11/22/17 06:24 Phosphorus 3.0 mg/dL (2.5-4.5) 11/18/17 22:52 Magnesium 1.6 mg/dL (1.6-2.3) 11/20/17 07:56 Total Bilirubin 1.6 mg/dL (0.2-1.3) H 11/22/17 06:24 AST 31 U/L (17-59) 11/22/17 06:24 ALT 24 U/L (21-72) 11/22/17 06:24 Alkaline Phosphatase 144 U/L (38-126) H 11/22/17 06:24 Troponin I 0.0460 ng/mL (0.00-0.120) 11/18/17 22:52 C-React Prot High Sens 2.16 mg/L (1.00-3.00) 11/18/17 22:52 NT-Pro-B Natriuret Pep 360 pg/mL (0-450) 11/18/17 22:52 Total Protein 5.7 g/dL (6.3-8.3) L 11/22/17 06:24 Albumin 2.1 g/dL (3.5-5.0) L 11/22/17 06:24 Globulin 3.6 gm/dL (2.2-3.9) 11/22/17 06:24 Albumin/Globulin Ratio 0.6 (1.0-2.1) L 11/22/17 06:24 Venous Blood Potassium 3.7 mmol/L (3.6-5.2) 11/18/17 22:52 Urine Color Tammy (YELLOW) 11/19/17 03:16 Urine Clarity Clear (Clear) 11/19/17 03:16 Urine pH 5.0 (5.0-8.0) 11/19/17 03:16 Ur Specific [place] 1.019 (1.003-1.030) 11/19/17 03:16 Urine Protein Negative mg/dL (NEGATIVE) 11/19/17 03:16 Urine Glucose (UA) Normal mg/dL (Normal) 11/19/17 03:16 Urine Ketones Negative mg/dL (NEGATIVE) 11/19/17 03:16 Urine Blood Negative (NEGATIVE) 11/19/17 03:16 Urine Nitrate Negative (NEGATIVE) 11/19/17 03:16 Urine Bilirubin 1+ (NEGATIVE) H 11/19/17 03:16 Urine Urobilinogen 4.0 mg/dL (0.2-1.0) 11/19/17 03:16 Ur Leukocyte Esterase Neg Lexie/uL (Negative) 11/19/17 03:16 Urine WBC (Auto) 12 /hpf (0-5) H 11/19/17 03:16 Urine RBC (Auto) 4 /hpf (0-3) H 11/19/17 03:16 Ur Squamous Epith Cells 5 /hpf (0-5) 11/19/17 03:16 Hyaline Casts 0-2 /lpf (0-2) 11/19/17 03:16 - Hospital Course Hospital Course: chief concern: Increasing cough, fever, chills. HPI: Patient is a 41yo male with past medical history of hypertension, alcohol- induced liver cirrhosis, hypertension, diabetes, psoriasis that presented with Complaining of increasing cough, chills, fever. For the last 3-4 days, he started having increasing shortness of breath as well as associated with cough noted. Cough mostly dry. He also having chills. Patient came to my office, yesterday, at the time patient was also tachycardic, low-grade fever noted, worsening cough, with the shortness of breath. I advised him to go to the emergency room, but the patient waited until late night to get into the hospital. In the emergency room patient was evaluated, noted to have right lower lung pneumonia. Patient also having fever, mild elevation of the lactate noted. Patient complaining of still cough, skin changes noted, diffusely especially in the face and the lower extremities and the upper abdomen. PMHx: as stated above PSHx: history of endoscopy/colonoscopy Allergies: NKDA Family hx: Father: history of heart transplant; Mother: hypertension/diabetes Social Hx: Daily alcohol consumption (~1pint of vodka per day), denies illicit drug use and former tobacco use Endoscopy hx: Endoscopy/Colonoscopy completed in 10/2015 - revealed grade 1 esophageal varices, LA Grade B Esophagitis, internal hemorrhoids, edema of the ascending colon ROS: the chart Vital signs reviewed No neck vein distention noted Chest good air entry bilaterally, no wheezing or rales noted CVS regular heart sound, no murmur noted abdominal distention noted pedal edema noted [employer] alert awake oriented -3, no functional neurological deficit patient is having tremor Psoriatic skin lesions labs reveal Low hemoglobin noted Coagulopathy X-ray showing possibly right middle lung infiltrative changes Assessment and recommended 41-year-old male, hypertension, alcoholic liver disease, diabetes, psoriasis admitted with Possibly patient now admitted with underlying pneumonia, sepsis, and associated with the tachycardia and systemic symptoms. We will start the patient on cefepime 1 g twice a day. Monitor the respiratory status. Chest x-ray. Patient is having significant skin psoriatic changes, patient will need a topical corticosteroid. Watch for hepatic encephalopathy. We will continue the lactulose. Glucose monitoring. Discussed with the patient. We will follow the patient HOSPITAL COURSE: Mr Schuster was admitted for severe sepsis secondary to his right lung pneumonia, criteria included tachycardia, elevated wbc, elevated lactate (3.9) and end organ damage evidenced by his precipitous drop in platelets compared to a recent admission. He was started on cefepime IV 1g Q12H for a total of 5 days , with the course being completed on 11/22. His respiratory symptoms improved vastly - he no longer had cough, or white count, fevers, tachycardia. He also has alcoholic liver cirrhosis for which his home medications were continued ( see list below). He had a flare up of his chronic condition of psoriasis for which he was given zinc oral and topical as well as hydrocortisone cream - he normally uses a cream at home which controls his flares but he could not recall the name. His urine Cx tested positive for gram positive cocci - he had no urinary complaints - he was covered with the same abx that was treating his pneumonia - cefepime. His chronic conditions of HTN and DM were treated by continuing his home medications. Please see the latest A/P for further specifics on management course: Severe Sepsis 2/2 Right Lung Pneumonia On admission: tachycardia, elevated wbc, elevated lactate (3.9) and end organ damage evidenced by his precipitous drop in platelets compared to a recent admission Now afebrile, No white count, non-productive cough improved, O2 saturation normal Imaging: CXR PA/LA * Airspace disease in the right lower lobe and both lower lobes which could represent atelectasis or pneumonia. Medications: Duoneb 3ml INH RQ6H Guaifenesin 100mg PO Q4H PRN for cough Cefepine IV Q1 Q12H until 11/22/17 Alcoholic Liver Cirrhosis Hx of hepatic encephalopathy Medications: Folic Acid 1mg PO QD Lasix 40mg PO BID Lactulose 20g PO BID MV 5ml PO QD Potassium Chloride 20 meq PO QD Spironolactone 25mg PO BID Thiamine 100mg PO QD Psoriasis Patient states his flares are best controlled by a cream which he has at home, but cannot recall the name Medications: Zinc Sulfate 220mg PO QD Zinc Oxide topical QD Hydrocortisone 1% creat topical BID HTN BP well controlled Medications: Propranolol 5mg PO TID Diabetes In low 100s Accuchecks Regular insulin ACHS UTI Asymptomatic Urine Cx 11/19 gram positive cocci Blood Cx 11/18 NEGATIVE Cefepime 1g IVP Q12H Right Knee Pain F/U right knee xray Prophylactic Measures SCDs Protonix 40mg PO QD Heart healthy diet Discharge Exam - Head Exam Head Exam: ATRAUMATIC, NORMAL INSPECTION - Additional Findings Additional findings: - Constitutional Appears: No Acute Distress, Unkempt, Older Than Stated Age - Head Exam Head Exam: ATRAUMATIC, NORMAL INSPECTION - Eye Exam Eye Exam: EOMI Pupil Exam: PERRL - ENT Exam ENT Exam: Mucous Membranes Moist - Neck Exam Neck Exam: Full ROM, Normal Inspection - Respiratory Exam Respiratory Exam: Clear to Ausculation Bilateral, NORMAL BREATHING PATTERN. absent: Rales, Rhonchi, Wheezes - Cardiovascular Exam Cardiovascular Exam: REGULAR RHYTHM, +S1, +S2. absent: Bradycardia, Tachycardia , JVD, Murmur - GI/Abdominal Exam GI & Abdominal Exam: Soft, Normal Bowel Sounds. absent: Tenderness Additional comments: Central obesity - Extremities Exam Extremities Exam: Normal Capillary Refill, Normal Inspection, Tenderness - Neurological Exam Neurological Exam: Alert, Awake, Oriented x3 - Psychiatric Exam Psychiatric exam: Normal Affect, Normal Mood - Skin Skin Exam: Dry. absent: Erythema, Urticaria, Vesicles Additional comments: plaques of thickened, scaling skin covering entire body from head to toe Discharge Plan - Discharge Medications Prescriptions: Furosemide [Lasix] 40 mg PO BID #60 tab Pantoprazole [Protonix EC Tab] 40 mg PO DAILY #30 ect Potassium Chloride [Potassium Chloride Oral Soln] 20 meq PO DAILY 30 Days #30 udc Propranolol [Inderal] 5 mg PO TID #90 tab Spironolactone [Aldactone] 25 mg PO BID #60 tab - Follow Up Plan Condition: GOOD Disposition: HOME/ ROUTINE Instructions: Alcohol Use - When Is Drinking a Problem?, Heart Healthy Diet, Heart Failure, Adult (DC), Pneumonia, Adult (DC), Cirrhosis (DC), Alcohol Abuse and Alcoholism (DC) Additional Instructions: The following instructions were explained to patient: 1). Schedule follow up with your primary care physician Dr. Edwards to take place next week so that your care with Dermatology and Gastroenterology can be coordinated 2). Schedule follow up with your [facility] in [place] for follow up of your Psoriasis. 3). You stated that you had enough of the topical cream for your Psoriasis prescribed by your [facility], please use as directed by [facility]. 4). You no longer need antibiotics. 5). Please have the following prescriptions filled at your pharmacy and use as directed: Lasix 40 mg, 1 tablet by mouth at 8 AM and 2 PM, Dispense #60, NO refills Potassium Chloride 20 mEQ, 1 tablet by mouth at 8 AM, Dispense #30, NO refills Propanolol 5 mg, 1 tablet by mouth at 8 AM, 2 PM, and 8 PM, Dispense #90, NO refills Aldactone 25 mg, 1 tablet by mouth at 8 AM and 8 PM, Dispense #60, NO refills Protonix 40 mg, 1 tablet by mouth at 8 AM, Dispense #30, NO refills 6). Please take care. Referrals: Damaris Edwards MD [Staff Provider] -
[2017-11-22] MEDS ORDERED: Saccharomyces Boulardi 250 mg Cap PO SCH (18:00)
== END 2017-11-22 16:47 | disposition home or self-care (01) | DRG 871 ==
LOC: C.ER 21:42 → C.6T 11-19 00:31
PROVIDERS: ADMIT Internal Medicine; ATTEND Internal Medicine
DX: A41.9 Sepsis, unspecified organism (principal); J18.9 Pneumonia, unspecified organism; K70.30 Alcoholic cirrhosis of liver without ascites; D68.9 Coagulation defect, unspecified; R65.20 Severe sepsis without septic shock; L40.50 Arthropathic psoriasis, unspecified; I11.0 Hypertensive heart disease with heart failure; I50.9 Heart failure, unspecified; J45.909 Unspecified asthma, uncomplicated; E11.9 Type 2 diabetes mellitus without complications; D64.9 Anemia, unspecified; M06.9 Rheumatoid arthritis, unspecified; F10.20 Alcohol dependence, uncomplicated; E78.00 Pure hypercholesterolemia, unspecified; Z82.49 Family history of ischemic heart disease and other diseases of the circulatory system; Z83.3 Family history of diabetes mellitus; Z87.01 Personal history of pneumonia (recurrent); Z87.11 Personal history of peptic ulcer disease

== ENCOUNTER 2018-04-10 14:37 | Inpatient (IN) | payer MEDICARE ==
[2018-04-10 14:37] VITALS: BMI 29.8
[2018-04-10] MEDS ORDERED: Vancomycin 1 GM 1 GM/250 ML BAG IV STA (15:47)
[2018-04-10] MEDS ORDERED: Cefepime IV 1 gm in Dextrose 1 GM/50 ML BAG IVPB STA (15:47)
[2018-04-10 16:25] LABS: BASO # 0.1 K/uL (0.0-0.2); BASO % 1.3 % (0.0-2.0); EOS # 0.1 K/uL (0.0-0.7); EOS % 1.7 % (0.0-4.0); HEMOGLOBIN 7.8 g/dL (12.0-18.0); LYMPH # 2.2 K/uL (1.0-4.3); MEAN CELL VOLUME 71.6 fL (80.0-94.0); MEAN CORPUSCULAR HEMOGLOBIN 21.3 pg (27.0-31.0); MEAN CORPUSCULAR HGB CONC 29.8 g/dL (33.0-37.0); MEAN PLATELET VOLUME 8.2 fL (7.2-11.7); MONO # 0.6 K/uL (0.0-0.8); MONO % 13.1 % (0.0-10.0); NEUT # 1.6 K/uL (1.8-7.0); NEUT % 35.9 % (50.0-75.0); NRBC % 0.1 % (0.0-2.0); RBC 3.66 Mil/uL (4.40-5.90); WHITE BLOOD COUNT 4.6 K/uL (4.8-10.8)
--- NOTE | 2018-04-10 16:25 | CP.PCM.HP ---
History of Present Illness - History of Present Illness History of Present Illness: Chief complaints: Cough, leg ulcers. HPI: 43-year-old male with a history of liver disease, diabetes, psoriasis, psoriatic arthritis, recurrent sepsis and recurrent skin infections, alcoholic liver disease, liver cirrhosis brought in by the family member today because of the worsening leg swelling, leg ulcers and leaking skin changes in the legs bilaterally. Patient was also having progressively worsening cough mostly at nighttime, cough with a thick yellow mucus production. Patient is having increasing chills but he denies any fever. Poor intake noted. He denies any nausea vomiting. No bleeding noted. But he has bleeding gums noted. In the past patient had a multiple skin ulcers, excoriation of the skin, psoriatic skin changes noted. But now patient had blisterlike skin lesions on the right leg, broke and started having diffuse skin ulcers in the lower extremity on the right leg and also some on the left leg noted. Some of the skin lesions foul-smelling, with some discharge present. he is having some hard time in walking. Patient also has diabetes, not controlled well recently PMHx: Diabetes, hypertension, chronic liver disease, alcoholic liver disease, variceal PSHx: history of endoscopy/colonoscopy Allergies: NKDA Family hx: Father: history of heart transplant; Mother: hypertension/diabetes Social Hx: past h/o alcohol consumption (~1pint of vodka per day), denies illicit drug use and former tobacco use Endoscopy hx: Endoscopy/Colonoscopy completed in 10/2015 - revealed grade 1 esophageal varices, [place] Grade B Esophagitis, internal hemorrhoids, edema of the ascending colon ROS: headache noted. Bleeding gums noted. No chest pain. Coughing noted, Mucus production present. No fever. No abdominal distention. Patient has no diarrhea or bleeding. Bilateral leg swelling leg edema noted. No scrotal swelling noted Vital signs reviewed No neck vein distention noted Chest good air entry bilaterally, no wheezing or rales noted CVS regular heart sound, no murmur noted abdominal distention noted pedal edema noted Patient has a multiple geographic skin lesions in the right leg occupying the right middle one third of the leg in the anterior aspect, medial as well as lateral aspect and also some skin lesion in the proximal leg noted. There is also some blisterlike skin on the left side noted. Lower extremity leg skin is very thick indurated skin changes noted. Peripheral pulses are present [employer] alert awake oriented -3, no functional neurological deficit patient is having tremor Psoriatic skin lesions labs currently pending Assessment and recommended 42-year-old male, hypertension, alcoholic liver disease, diabetes, psoriasis admitted with multiple skin ulcers, multiple skin lesions, and also possibl cough and associated with the possible pPneumonia. We'll start the patient on antibiotic for gram-positive cocci coverage. DVT GI prophylaxis. wound management. Diabetes management. Will continue the current treatment. Will follow-up the patient Present on Admission - Present on Admission Any Indicators Present on Admission: No History of DVT/PE: No History of Uncontrolled Diabetes: No Urinary Catheter: No Decubitus Ulcer Present: No Past Patient History - Infectious Disease Hx of Infectious Diseases: None - Past Medical History & Family History Past Medical History?: Yes - Past Social History Smoking Status: Never Smoked - CARDIAC Hx Cardiac Disorders: Yes Hx Congestive Heart Failure: Yes Hx Hypercholesterolemia: Yes Hx Hypertension: Yes - PULMONARY Hx Respiratory Disorders: Yes Hx Asthma: Yes Hx Pneumonia: Yes (3 years ago) - NEUROLOGICAL Hx Neurological Disorder: Yes Hx Seizures: Yes (etoh induced) - HEENT Hx HEENT Problems: Yes Other/Comment: eye glasses for reading - RENAL Hx Chronic Kidney Disease: No - ENDOCRINE/METABOLIC Hx Endocrine Disorders: Yes Hx Diabetes Mellitus Type 2: Yes - HEMATOLOGICAL/ONCOLOGICAL Hx Blood Disorders: Yes Hx Anemia: Yes - INTEGUMENTARY Hx Dermatological Problems: Yes Hx Psoriasis: Yes Other/Comment: Psoriatic Arthritis - MUSCULOSKELETAL/RHEUMATOLOGICAL Hx Musculoskeletal Disorders: Yes Hx Arthritis: Yes (psoriatic arthritis; b/l elb; fingers) Hx Falls: Yes Hx Rheumatoid Arthritis: Yes - GASTROINTESTINAL Hx Gastrointestinal Disorders: Yes Other/Comment: Liver disease - GENITOURINARY/GYNECOLOGICAL Hx Genitourinary Disorders: No Hx Sexually Transmitted Disorders: No - PSYCHIATRIC Hx Psychophysiologic Disorder: Yes Hx Anxiety: Yes Hx Depression: Yes Hx Substance Use: No - SURGICAL HISTORY Hx Surgeries: Yes Hx Orthopedic Surgery: Yes (rt. knee swelling) - ANESTHESIA Hx Anesthesia: Yes Hx Anesthesia Reactions: No Hx Malignant Hyperthermia: No Meds Allergies/Adverse Reactions: Allergies Allergy/AdvReac Type Severity Reaction Status Date / Time No Known Allergies Allergy Verified 04/10/18 14:55 Results - Vital Signs Recent Vital Signs: Last Vital Signs Temp 98.5 F 04/10/18 14:53 Pulse 126 H 04/10/18 14:53 Resp 18 11/11/18 14:53 BP Pulse Ox 100 04/10/18 14:53 - Labs Result Diagrams: 04/12/18 06:53 04/12/18 06:53
[2018-04-10 16:29] LABS: VENOUS BLOOD GAS BASE EXCESS 1.7 mmol/L (0.0-2.0); VENOUS BLOOD GAS PCO2 42 mmHg (40-60); VENOUS BLOOD GAS PO2 25 mm/Hg (30-55); VENOUS BLOOD PH 7.41 (7.32-7.43)
[2018-04-10 16:32] LABS: INR 1.4; PLATELET COUNT 119 K/uL (130-400); PROTHROMBIN TIME 15.4 SECONDS (9.7-12.2)
[2018-04-10 16:41] LABS: ALB/GLOB RATIO 0.6 (1.0-2.1); ALBUMIN 2.8 g/dL (3.5-5.0); ALT/SGPT 26 U/L (21-72); AST/SGOT 76 U/L (17-59); BLOOD UREA NITROGEN 14 mg/dL (9-20); CALCIUM 7.7 mg/dl (8.6-10.4); GFR NON-AFRICAN AMERICAN > 60
[2018-04-10 16:50] LABS: B-TYPE NATRIURETIC PEPTIDE 1820 pg/mL (0-450); CK-MB 4.97 ng/mL (0.0-3.38)
--- NOTE | 2018-04-10 17:18 | C.PDOC ---
History Of Present Illness 42 y/o male, with PMHx of DM, hypertension, and liver cirrhosis, brought to ER by mother for evaluation of nonproductive cough and pleuritic chest pain for the past several days, as well as worsening leg swelling and wounds on right leg for 12 days. Patient denies any fever, SOB, abdominal pain, vomiting, diarrhea. Time Seen by Provider: 04/10/18 15:31 Chief Complaint (Nursing): Cough, Cold, Congestion History Per: Patient, Family (mother at bedside ) History/Exam Limitations: no limitations Onset/Duration Of Symptoms: Days Current Symptoms Are (Timing): Still Present Severity: Moderate Past Medical History Reviewed: Historical Data, Nursing Documentation, Vital Signs Vital Signs: Last Vital Signs Temp 98.5 F 04/10/18 14:53 Pulse 126 H 04/10/18 14:53 Resp 18 04/10/18 14:53 BP Pulse Ox 100 04/10/18 14:53 - Medical History PMH: Anemia, Anxiety, Arthritis (psoriatic arthritis; b/l elb; fingers), Asthma, CHF, Depression, Diabetes, Gastrointestinal Ulcer, HTN, Hypercholesterolemia, Pneumonia (3 years ago), Rheumatoid Arthritis, Seizures (etoh induced) Surgical History: Endoscopy - [facility] Procedures ALCOHOL DETOXIFICATION (05/28/13) CENTRAL VENOUS CATHETER PLACEMENT WITH GUIDANCE (01/31/14) CYSTOSCOPY NEC (06/08/13) DETOXIFICATION SERVICES FOR SUBSTANCE ABUSE TREATMENT (08/14/15) DRAINAGE OF PERITONEAL CAVITY, PERCUTANEOUS APPROACH (02/01/18) DRAINAGE OF RIGHT LOWER LEG SKIN, EXTERNAL APPROACH (10/15/17) EXCISION OF ASCENDING COLON, ENDO, DIAGN (10/29/15) EXCISION OF STOMACH, ENDO, DIAGN (10/29/15) GROUP PSYCHOTHERAPY (04/21/16) INSERTION OF INFUSION DEV INTO SUP VENA CAVA, PERC APPROACH (09/08/17) INSPECTION OF UPPER INTESTINAL TRACT, ENDO (08/03/17) OTHER ENDOSCOPY OF SM INTEST (01/31/14) PACKED CELL TRANSFUSION (01/31/14) RETROGRADE PYELOGRAM (06/08/13) TRANSFUSE NONAUT FRESH PLASMA IN PERIPH VEIN, PERC (08/03/17) TRANSFUSE NONAUT FROZEN PLASMA IN PERIPH VEIN, PERC (05/06/15) TRANSFUSE NONAUT RED BLOOD CELLS IN PERIPH VEIN, PERC (09/08/17) ULTRASONOGRAPHY OF LOWER EXTREMITY CONNECTIVE TISSUE (10/15/17) ULTRASONOGRAPHY OF SUPERIOR VENA CAVA, GUIDANCE (09/08/17) Family History: States: Diabetes (Father) - Social History Hx Tobacco Use: No Hx Alcohol Use: Yes Hx Substance Use: No - Immunization History Hx Tetanus Toxoid Vaccination: Yes Hx Influenza Vaccination: Yes Hx Pneumococcal Vaccination: Yes Review Of Systems Constitutional: Negative for: Fever, Chills Cardiovascular: Positive for: Chest Pain (pleuritic). Negative for: Palpitations Respiratory: Positive for: Cough (nonproductive). Negative for: Shortness of Breath Gastrointestinal: Negative for: Nausea, Vomiting, Abdominal Pain, Diarrhea Genitourinary: Negative for: Dysuria Musculoskeletal: Positive for: Other (Leg swelling) Skin: Positive for: Other (Wounds on R leg) Physical Exam - Physical Exam Appears: Well, Non-toxic, No Acute Distress, Chronically Ill Skin: Warm, Dry, Other (lips ecchymotic appearing) Head: Atraumatic, Normacephalic Eye(s): bilateral: Other (mild periorbital swelling) Oral Mucosa: Moist Lips: Other (Ecchymotic) Cardiovascular: Rhythm Regular (Tachycardic) Respiratory: Normal Breath Sounds, No Rales, No Rhonchi, No Wheezing Gastrointestinal/Abdominal: Bowel Sounds, Soft, No Tenderness, Other (Obese; (+) mild ascites) Extremity: Other (Bilateral 3+ pitting edema with thickened chronic skin changes) Extremity: Right: Other (Right leg has multiple large ulcerations on anterior and lateral aspect of the leg; no discharge; no surrounding erythema) Pulses: Left Dorsalis Pedis: Normal, Right Dorsalis Pedis: Normal Neurological/Psych: Oriented x3, Normal Sensation Gait: Steady ED Course And Treatment - Laboratory Results Result Diagrams: 04/14/18 07:09 04/13/18 10:59 ECG: Interpreted By Me, Viewed By Me (sinus tachycardia 118bpm, left axis deviation, Q waves aVL, V2, V3, no acute ST changes) ECG Interpretation: Abnormal O2 Sat by Pulse Oximetry: 100 (RA) Pulse Ox Interpretation: Normal - Other Rad Chest X-Ray X-Ray: Read By Radiologist Interpretation: FINDINGS: LUNGS: . Poor inspiration with low lung volumes, crowded bronchovascular markings and bibasilar atelectasis right greater than left. Rule out developing right lower lobe infiltrate. PLEURA: No significant pleural effusion identified, no pneumothorax apparent. CARDIOVASCULAR: No aortic atherosclerotic calcification present. Heart appears enlarged.. No pulmonary vascular congestion. OSSEOUS STRUCTURES: No significant abnormalities. VISUALIZED UPPER ABDOMEN: Normal. OTHER FINDINGS: None. IMPRESSION: Cardiomegaly. Poor inspiration with low lung volumes, crowded bronchovascular markings and bibasilar atelectasis right greater than left. Rule out developing right lower lobe infiltrate. Progress Note: Bloodwork, EKG, and chest x-ray ordered and reviewed. Patient given IV NS bolus, IV Vancomycin and IV Cefepime. Discussed elevated trop with PMD, agrees no ASA at this time due to pancytopenia, (+) SFOB, h/o varices. Will transfuse 1 unit PRBcs. - Physician Consult Information Physician Contacted: Damaris Edwards Outcome Of Conversation: Discussed patient with PMD, agrees with admission for pancytopenia, right leg wound/ulcer, liver cirrhosis, tachycardia, elevated trop. Critical Care Time - Critical Care Note Total Time (in mins): 50 Documented critical care: time excludes all time spent performing seperately billable procedures. Disposition - Disposition Disposition: HOSPITALIZED Disposition Time: 17:19 Condition: FAIR - Clinical Impression Clinical Impression: Elevated troponin, Tachycardia, Pancytopenia, Open leg wound - Scribe Statement The provider has reviewed the documentation as recorded by the Nikole Eli Provider Attestation: All medical record entries made by the Nikole were at my direction and personally dictated by me. I have reviewed the chart and agree that the record accurately reflects my personal performance of the history, physical exam, medical decision making, and the department course for this patient. I have also personally directed, reviewed, and agree with the discharge instructions and disposition. Decision To Admit - Pt Status Changed To: Hospital Disposition Of: Inpatient - Admit Certification Admit to Inpatient:: After my assessment, the patient will require hospitalization for at least two midnights. This is because of the severity of symptoms shown, intensity of services needed, and/or the medical risk in this patient being treated as an outpatient. - InPatient: Physician Admission Certification:: see notes - . Bed Request Type: Telemetry Admitting Physician: Damaris Edwards Patient Diagnosis: Elevated troponin, Pancytopenia, Open leg wound, Tachycardia, Liver cirrhosis
--- NOTE | 2018-04-10 17:59 | RAD ---
Date of service: 04/10/2018 HISTORY: ADMISSION COMPARISON: Comparison chest 02/01/2018 FINDINGS: LUNGS: . Poor inspiration with low lung volumes, crowded bronchovascular markings and bibasilar atelectasis right greater than left. Rule out developing right lower lobe infiltrate. PLEURA: No significant pleural effusion identified, no pneumothorax apparent. CARDIOVASCULAR: No aortic atherosclerotic calcification present. Heart appears enlarged.. No pulmonary vascular congestion. OSSEOUS STRUCTURES: No significant abnormalities. VISUALIZED UPPER ABDOMEN: Normal. OTHER FINDINGS: None. IMPRESSION: Cardiomegaly. Poor inspiration with low lung volumes, crowded bronchovascular markings and bibasilar atelectasis right greater than left. Rule out developing right lower lobe infiltrate.
[2018-04-10] MEDS: Propranolol 5 mg Tab PO SCH (18:35)
[2018-04-10] MEDS: Albuterol-Ipratrop 3 mg / 0.5 (3 ml) UD INH SCH (20:10)
[2018-04-10 23:27] LABS: CK-MB 4.69 ng/mL (0.0-3.38); TROPONIN I 0.135 ng/mL (0.00-0.120)
[2018-04-11] MEDS: Piperacill/Tazo 2.25gm in Dex 2.25 GM/50 ML BAG IVPB SCH ×5 (00:05→22:04)
[2018-04-11] MEDS ORDERED: Piperacillin/Tazobact 3.375 gm 100 ML IVPB ONE (00:21)
[2018-04-11] MEDS ORDERED: Iodixanol 320 mg/ml 150 ml Bottle IV ONE (01:45)
--- NOTE | 2018-04-11 03:43 | CP.PCM.CON ---
History of Present Illness - History of Present Illness History of Present Illness: 42 M with h/o DM, alcohol cirrhosis, h/o esophageal varices, htn, chronic venous ulcers, lymphoedema, stopped drinking about 6 months, brought to ER with c/o weakness, lethargy. In ER he was found disoriented, lethargic, hypertensive, edematous, anemic, elevated CPK, sight + troponin. Further w/u showed he hyperammonia. He was given 1 unit prbc. At time of exam, patient was disoriented to place, time, lethargic and would not contribute more information. Patient noticed to be intermittently retching and coughing. PMH as above PSH live with family ex alcoholism, denies smoking Meds reviewed Allergies NKDA Family history father cardiac transplant. Review of Systems - Review of Systems All systems: reviewed and no additional remarkable complaints except (HPI) Past Patient History - Infectious Disease Hx of Infectious Diseases: None - Past Medical History & Family History Past Medical History?: Yes - Past Social History Smoking Status: Never Smoked - CARDIAC Hx Congestive Heart Failure: Yes Hx Hypercholesterolemia: Yes Hx Hypertension: Yes - PULMONARY Hx Asthma: Yes Hx Pneumonia: Yes (3 years ago) - NEUROLOGICAL Hx Seizures: Yes (etoh induced) - HEENT Hx HEENT Problems: Yes Other/Comment: eye glasses for reading - RENAL Hx Chronic Kidney Disease: No - ENDOCRINE/METABOLIC Hx Endocrine Disorders: Yes Hx Diabetes Mellitus Type 2: Yes - HEMATOLOGICAL/ONCOLOGICAL Hx Anemia: Yes Hx Human Immunodeficiency Virus (HIV): No - INTEGUMENTARY Hx Dermatological Problems: Yes Hx Psoriasis: Yes Other/Comment: Psoriatic Arthritis - MUSCULOSKELETAL/RHEUMATOLOGICAL Hx Arthritis: Yes (psoriatic arthritis; b/l elb; fingers) Hx Rheumatoid Arthritis: Yes - GASTROINTESTINAL Hx Gastrointestinal Disorders: Yes Other/Comment: Liver disease - GENITOURINARY/GYNECOLOGICAL Hx Sexually Transmitted Disorders: No - PSYCHIATRIC Hx Anxiety: Yes Hx Depression: Yes Hx Substance Use: No - SURGICAL HISTORY Hx Surgeries: Yes Hx Orthopedic Surgery: Yes (rt. knee swelling) - ANESTHESIA Hx Anesthesia: Yes Hx Anesthesia Reactions: No Hx Malignant Hyperthermia: No Meds Allergies/Adverse Reactions: Allergies Allergy/AdvReac Type Severity Reaction Status Date / Time No Known Allergies Allergy Verified 04/10/18 14:55 - Medications Medications: Current Medications Albuterol/Ipratropium (Duoneb 3 Mg/0.5 Mg (3 Ml) Ud) 3 ml INH RQ6 FLY Last Admin: 04/10/18 20:10 Dose: 3 ml Fluocinonide (Lidex 0.05% Cream) 0 gm TOP BID FLY Furosemide (Lasix) 40 mg IVP Q12 FLY Last Admin: 04/10/18 22:23 Dose: Not Given Furosemide (Lasix) 40 mg IVP STAT STA Stop: 04/11/18 03:11 Piperacillin Sod/Tazobactam Sod (Zosyn 2.25 Gm Iv Premix) 2.25 gm in 50 mls @ 100 mls/hr IVPB Q6H FLY; Protocol Last Admin: 04/11/18 00:05 Dose: 100 mls/hr Vancomycin HCl 500 mg/ Sodium (Chloride) 100 mls @ 100 mls/hr IVPB Q12H FLY; Protocol Last Admin: 04/10/18 18:04 Dose: Not Given Lactulose (Enulose) 20 gm PO BID [facility] Last Admin: 04/10/18 18:33 Dose: 20 gm Lactulose (Enulose) 20 gm PO Q2H FLY Stop: 04/11/18 09:16 Metoprolol Tartrate (Lopressor) 2.5 mg IVP BID [facility] Ondansetron HCl (Zofran Inj) 4 mg IVP ONCE ONE Stop: 04/11/18 03:10 Pantoprazole Sodium (Protonix Inj) 40 mg IVP Q12H [facility] Last Admin: 04/10/18 18:13 Dose: 40 mg Propranolol HCl (Inderal) 5 mg PO TID [facility] Last Admin: 04/10/18 18:35 Dose: 5 mg Spironolactone (Aldactone) 25 mg PO BID [facility] Last Admin: 04/10/18 18:35 Dose: 25 mg Physical Exam - Additional Findings Additional findings: * HEENT BRIANA * Neck supple * Chest Clear * CVS regular, borderline tachycardia 115/min, sinus * PA distended * Ext b/l lymphoedema, right leg full thickness chronic skin ulcers * [employer] lethargic, not oriented to place, time * skin anasarca Results - Vital Signs Recent Vital Signs: Last Vital Signs Temp 99.6 F 04/11/18 03:00 Pulse 105 H 04/11/18 02:40 Resp 18 04/11/18 02:40 BP 178/102 H 04/11/18 02:40 Pulse Ox 99 04/11/18 02:40 - Labs Result Diagrams: 04/10/18 16:20 04/10/18 16:20 Labs: Laboratory Results - last 24 hr 04/10/18 04/10/18 04/10/18 16:20 16:20 16:20 WBC 4.6 L D RBC 3.66 L Hgb 7.8 L Hct 26.2 L MCV 71.6 L D MCH 21.3 L MCHC 29.8 L RDW 19.0 H Plt Count 119 L MPV 8.2 Neut % (Auto) 35.9 L Lymph % (Auto) 48.0 H Hamlin % (Auto) 13.1 H Eos % (Auto) 1.7 Baso % (Auto) 1.3 Neut # (Auto) 1.6 L Lymph # (Auto) 2.2 Hamlin # (Auto) 0.6 Eos # (Auto) 0.1 Baso # (Auto) 0.1 Differential Comment Y PT 15.4 H INR 1.4 APTT 52 H pO2 VBG pH VBG pCO2 VBG HCO3 VBG Total CO2 VBG O2 Sat (Calc) VBG Base Excess VBG Potassium Glucose Lactate FiO2 Sodium 140 Potassium 4.0 Chloride 105 Carbon Dioxide 25 Anion Gap 15 BUN 14 Creatinine 0.8 Est GFR ( Amer) > 60 Est GFR (Non-Af Amer) > 60 Random Glucose 128 H Calcium 7.7 L Total Bilirubin 1.0 AST 76 H D ALT 26 Alkaline Phosphatase 153 H D Ammonia Total Creatine Kinase 587 H CK-MB (Mass) 4.97 H Troponin I 0.1350 H* NT-Pro-B Natriuret Pep 1820 H Total Protein 7.3 Albumin 2.8 L D Globulin 4.5 H Albumin/Globulin Ratio 0.6 L Venous Blood Potassium Stool Occult Blood Blood Type Antibody Screen 04/10/18 04/10/18 04/10/18 16:25 17:20 18:38 WBC RBC Hgb Hct MCV MCH MCHC RDW Plt Count MPV Neut % (Auto) Lymph % (Auto) [place]lin % (Auto) Eos % (Auto) Baso % (Auto) Neut # (Auto) Lymph # (Auto) [place]lin # (Auto) Eos # (Auto) Baso # (Auto) Differential Comment PT INR APTT pO2 25 L VBG pH 7.41 VBG pCO2 42 VBG HCO3 24.9 VBG Total CO2 27.9 VBG O2 Sat (Calc) 43.3 VBG Base Excess 1.7 VBG Potassium 3.7 Glucose 120 H Lactate 3.8 H FiO2 21.0 Sodium 143.0 Potassium Chloride 110.0 H Carbon Dioxide Anion Gap BUN Creatinine Est GFR ( Amer) Est GFR (Non-Af Amer) Random Glucose Calcium Total Bilirubin AST ALT Alkaline Phosphatase Ammonia Total Creatine Kinase CK-MB (Mass) Troponin I NT-Pro-B Natriuret Pep Total Protein Albumin Globulin Albumin/Globulin Ratio Venous Blood Potassium 3.7 Stool Occult Blood Positive H Blood Type AB POSITIVE Antibody Screen Negative 04/10/18 04/10/18 18:51 22:57 WBC RBC Hgb Hct MCV MCH MCHC RDW Plt Count MPV Neut % (Auto) Lymph % (Auto) [place] % (Auto) Eos % (Auto) Baso % (Auto) Neut # (Auto) Lymph # (Auto) [place]lin # (Auto) Eos # (Auto) Baso # (Auto) Differential Comment PT INR APTT pO2 VBG pH VBG pCO2 VBG HCO3 VBG Total CO2 VBG O2 Sat (Calc) VBG Base Excess VBG Potassium Glucose Lactate FiO2 Sodium Potassium Chloride Carbon Dioxide Anion Gap BUN Creatinine Est GFR ( Amer) Est GFR (Non-Af Amer) Random Glucose Calcium Total Bilirubin AST ALT Alkaline Phosphatase Ammonia 143 H D Total Creatine Kinase 512 H CK-MB (Mass) 4.69 H Troponin I 0.1350 H* NT-Pro-B Natriuret Pep Total Protein Albumin Globulin Albumin/Globulin Ratio Venous Blood Potassium Stool Occult Blood Blood Type Antibody Screen Assessment & Plan - Assessment and Plan (Free Text) Assessment: * Hepatic encephalopathy * Hyper ammonia * Hypertensive * suspected some aspiration * Anemia * h/o varices * borderline troponin likely form rhabdo * Anasarca * Lymphoedema, chronic leg ulcers * Type 2 dm * H/o alcoholism in past Plan: * Observe in icu * Aspiration precautions * npo except meds * Lctulose q2 hrs till diarrhea * PRBC ordered by primary team * Empiric abx started by primary team * accuchecks * See orders for detail.
[2018-04-11 06:35] LABS: BASO # 0.1 K/uL (0.0-0.2); BASO % 1.2 % (0.0-2.0); EOS # 0.1 K/uL (0.0-0.7); EOS % 1.1 % (0.0-4.0); HEMOGLOBIN 8.7 g/dL (12.0-18.0); LYMPH # 1.7 K/uL (1.0-4.3); LYMPH % 24.8 % (20.0-40.0); MEAN CELL VOLUME 72.2 fL (80.0-94.0); MEAN CORPUSCULAR HEMOGLOBIN 21.9 pg (27.0-31.0); MEAN CORPUSCULAR HGB CONC 30.3 g/dL (33.0-37.0); MONO # 0.7 K/uL (0.0-0.8); MONO % 10.3 % (0.0-10.0); NEUT # 4.4 K/uL (1.8-7.0); NEUT % 62.6 % (50.0-75.0); NRBC % 0.1 % (0.0-2.0); RBC 3.95 Mil/uL (4.40-5.90); RED CELL DISTRIBUTION WIDTH 19.1 % (11.5-14.5)
[2018-04-11 06:52] LABS: ALB/GLOB RATIO 0.7 (1.0-2.1); ALT/SGPT 26 U/L (21-72); AST/SGOT 83 U/L (17-59); BLOOD UREA NITROGEN 13 mg/dL (9-20); CALCIUM 8.1 mg/dl (8.6-10.4); GFR NON-AFRICAN AMERICAN > 60
[2018-04-11 07:06] LABS: CK-MB 3.98 ng/mL (0.0-3.38); TROPONIN I 0.141 ng/mL (0.00-0.120)
--- NOTE | 2018-04-11 07:17 | CP.PCM.CON ---
<RachanabebayanAaron - Last Filed: 04/11/18 14:10> History of Present Illness - History of Present Illness History of Present Illness: GI Fellow PGY4, Consult note. Nima Schuster is a 42M with history of alcoholic cirrhosis, esophageal varices presenting with generalized weakness, malaise, leg ulcers, cough. He has been disoriented and lethargic complaining of pain all over. Unfortunately he cannot give me specifics on timing, however, he says these are new problems "recently". He also states he lives with his family, and his brother has been having similar symptoms. Patient was last seen 02/15 as inpatient by our service which we had set up an outpatient appointment with [facility] for liver evaluation and possible transplant. Unfortunately, patient did not show for appointment. On admission he was found to be anemic with elevated ammonia. He was given 1u pRBCs. Nursing denies any bleeding. Patient state he had a soft BM lastnight and it was brown color. PMHx - HTN, DM, decompensated alcoholic cirrhosis, varices, cholelithiasis, ?psoriasis PSHx - Last EGD 08/15 normal. Paracentesis 02/15. CSPY 11/13 internal hemorrhoids. SocHx - prevoius alcohol use ~1 pint per day vodka. Denies tobacco use. 12pt ROS completed except for above. Past Patient History - Infectious Disease Hx of Infectious Diseases: None - Past Medical History & Family History Past Medical History?: Yes - Past Social History Smoking Status: Never Smoked - CARDIAC Hx Congestive Heart Failure: Yes Hx Hypercholesterolemia: Yes Hx Hypertension: Yes - PULMONARY Hx Asthma: Yes Hx Pneumonia: Yes (3 years ago) - NEUROLOGICAL Hx Seizures: Yes (etoh induced) - HEENT Hx HEENT Problems: Yes Other/Comment: eye glasses for reading - RENAL Hx Chronic Kidney Disease: No - ENDOCRINE/METABOLIC Hx Endocrine Disorders: Yes Hx Diabetes Mellitus Type 2: Yes - HEMATOLOGICAL/ONCOLOGICAL Hx Anemia: Yes Hx Human Immunodeficiency Virus (HIV): No - INTEGUMENTARY Hx Dermatological Problems: Yes Hx Psoriasis: Yes Other/Comment: Psoriatic Arthritis - MUSCULOSKELETAL/RHEUMATOLOGICAL Hx Arthritis: Yes (psoriatic arthritis; b/l elb; fingers) Hx Rheumatoid Arthritis: Yes - GASTROINTESTINAL Hx Gastrointestinal Disorders: Yes Other/Comment: Liver disease - GENITOURINARY/GYNECOLOGICAL Hx Sexually Transmitted Disorders: No - PSYCHIATRIC Hx Anxiety: Yes Hx Depression: Yes Hx Substance Use: No - SURGICAL HISTORY Hx Surgeries: Yes Hx Orthopedic Surgery: Yes (rt. knee swelling) - ANESTHESIA Hx Anesthesia: Yes Hx Anesthesia Reactions: No Hx Malignant Hyperthermia: No Meds Allergies/Adverse Reactions: Allergies Allergy/AdvReac Type Severity Reaction Status Date / Time No Known Allergies Allergy Verified 04/10/18 14:55 - Medications Medications: Current Medications Albuterol/Ipratropium (Duoneb 3 Mg/0.5 Mg (3 Ml) Ud) 3 ml INH RQ6 FLY Last Admin: 04/10/18 20:10 Dose: 3 ml Fluocinonide (Lidex 0.05% Cream) 0 gm TOP BID FLY Furosemide (Lasix) 40 mg IVP Q12 [facility] Last Admin: 04/10/18 22:23 Dose: Not Given Piperacillin Sod/Tazobactam Sod (Zosyn 2.25 Gm Iv Premix) 2.25 gm in 50 mls @ 100 mls/hr IVPB Q6H FLY; Protocol Last Admin: 04/11/18 04:15 Dose: 100 mls/hr Vancomycin HCl 500 mg/ Sodium (Chloride) 100 mls @ 100 mls/hr IVPB Q12H FLY; Protocol Last Admin: 04/10/18 18:04 Dose: Not Given Lactulose (Enulose) 20 gm PO BID [facility] Last Admin: 04/10/18 18:33 Dose: 20 gm Lactulose (Enulose) 20 gm PO Q2H FLY Stop: 04/11/18 09:16 Last Admin: 04/11/18 06:11 Dose: 20 gm Metoprolol Tartrate (Lopressor) 2.5 mg IVP BID [facility] Pantoprazole Sodium (Protonix Inj) 40 mg IVP Q12H [facility] Last Admin: 04/10/18 18:13 Dose: 40 mg Propranolol HCl (Inderal) 5 mg PO TID [facility] Last Admin: 04/10/18 18:35 Dose: 5 mg Spironolactone (Aldactone) 25 mg PO BID [facility] Last Admin: 04/10/18 18:35 Dose: 25 mg Physical Exam - Constitutional Appears: No Acute Distress, Confused, Chronically Ill - Eye Exam Eye Exam: EOMI, Scleral icterus - ENT Exam ENT Exam: Mucous Membranes Moist, Normal Exam - Respiratory Exam Respiratory Exam: Clear to Auscultation Bilateral, NORMAL BREATHING PATTERN - Cardiovascular Exam Cardiovascular Exam: REGULAR RHYTHM, +S1, +S2 - GI/Abdominal Exam GI & Abdominal Exam: Normal Bowel Sounds, Soft. absent: Organomegaly, Tenderness - Rectal Exam Rectal Exam: Deferred - Extremities Exam Additional comments: chronic venous stasis changes with ulcers - Neurological Exam Neurological exam: Alert, CN II-XII Intact Additional comments: Oriented to self and place only - Psychiatric Exam Psychiatric exam: Normal Affect, Normal Mood - Skin Skin Exam: Dry, Normal Color Results - Vital Signs Recent Vital Signs: Last Vital Signs Temp 99.6 F 04/11/18 03:00 Pulse 105 H 04/11/18 02:40 Resp 18 04/11/18 02:40 BP 153/106 H 04/11/18 03:52 Pulse Ox 99 04/11/18 02:40 - Labs Result Diagrams: 04/11/18 06:24 04/11/18 06:24 Labs: Laboratory Results - last 24 hr 04/10/18 04/10/18 04/10/18 16:20 16:20 16:20 WBC 4.6 L D RBC 3.66 L Hgb 7.8 L Hct 26.2 L MCV 71.6 L D MCH 21.3 L MCHC 29.8 L RDW 19.0 H Plt Count 119 L MPV 8.2 Neut % (Auto) 35.9 L Lymph % (Auto) 48.0 H [place] % (Auto) 13.1 H Eos % (Auto) 1.7 Baso % (Auto) 1.3 Neut # (Auto) 1.6 L Lymph # (Auto) 2.2 [place] # (Auto) 0.6 Eos # (Auto) 0.1 Baso # (Auto) 0.1 Differential Comment Y PT 15.4 H INR 1.4 APTT 52 H pO2 VBG pH VBG pCO2 VBG HCO3 VBG Total CO2 VBG O2 Sat (Calc) VBG Base Excess VBG Potassium Glucose Lactate FiO2 Sodium 140 Potassium 4.0 Chloride 105 Carbon Dioxide 25 Anion Gap 15 BUN 14 Creatinine 0.8 Est GFR ( Amer) > 60 Est GFR (Non-Af Amer) > 60 Random Glucose 128 H Calcium 7.7 L Phosphorus Magnesium Total Bilirubin 1.0 AST 76 H D ALT 26 Alkaline Phosphatase 153 H D Ammonia Total Creatine Kinase 587 H CK-MB (Mass) 4.97 H Troponin I 0.1350 H* NT-Pro-B Natriuret Pep 1820 H Total Protein 7.3 Albumin 2.8 L D Globulin 4.5 H Albumin/Globulin Ratio 0.6 L Venous Blood Potassium Stool Occult Blood Blood Type Antibody Screen 04/10/18 04/10/18 04/10/18 16:25 17:20 18:38 WBC RBC Hgb Hct MCV MCH MCHC RDW Plt Count MPV Neut % (Auto) Lymph % (Auto) [place] % (Auto) Eos % (Auto) Baso % (Auto) Neut # (Auto) Lymph # (Auto) [place] # (Auto) Eos # (Auto) Baso # (Auto) Differential Comment PT INR APTT pO2 25 L VBG pH 7.41 VBG pCO2 42 VBG HCO3 24.9 VBG Total CO2 27.9 VBG O2 Sat (Calc) 43.3 VBG Base Excess 1.7 VBG Potassium 3.7 Glucose 120 H Lactate 3.8 H FiO2 21.0 Sodium 143.0 Potassium Chloride 110.0 H Carbon Dioxide Anion Gap BUN Creatinine Est GFR ( Amer) Est GFR (Non-Af Amer) Random Glucose Calcium Phosphorus Magnesium Total Bilirubin AST ALT Alkaline Phosphatase Ammonia Total Creatine Kinase CK-MB (Mass) Troponin I NT-Pro-B Natriuret Pep Total Protein Albumin Globulin Albumin/Globulin Ratio Venous Blood Potassium 3.7 Stool Occult Blood Positive H Blood Type AB POSITIVE Antibody Screen Negative 04/10/18 04/10/18 04/11/18 18:51 22:57 06:24 WBC RBC Hgb Hct MCV MCH MCHC RDW Plt Count MPV Neut % (Auto) Lymph % (Auto) [place] % (Auto) Eos % (Auto) Baso % (Auto) Neut # (Auto) Lymph # (Auto) [place] # (Auto) Eos # (Auto) Baso # (Auto) Differential Comment PT INR APTT pO2 VBG pH VBG pCO2 VBG HCO3 VBG Total CO2 VBG O2 Sat (Calc) VBG Base Excess VBG Potassium Glucose Lactate FiO2 Sodium Potassium Chloride Carbon Dioxide Anion Gap BUN Creatinine Est GFR ( Amer) Est GFR (Non-Af Amer) Random Glucose Calcium Phosphorus Magnesium Total Bilirubin AST ALT Alkaline Phosphatase Ammonia 143 H D Total Creatine Kinase 512 H 513 H CK-MB (Mass) 4.69 H 3.98 H Troponin I 0.1350 H* 0.1410 H* NT-Pro-B Natriuret Pep Total Protein Albumin Globulin Albumin/Globulin Ratio Venous Blood Potassium Stool Occult Blood Blood Type Antibody Screen 04/11/18 04/11/18 04/11/18 06:24 06:24 06:24 WBC 7.0 D RBC 3.95 L Hgb 8.7 L Hct 28.6 L MCV 72.2 L MCH 21.9 L MCHC 30.3 L RDW 19.1 H Plt Count 143 MPV 7.0 L Neut % (Auto) 62.6 Lymph % (Auto) 24.8 [place] % (Auto) 10.3 H Eos % (Auto) 1.1 Baso % (Auto) 1.2 Neut # (Auto) 4.4 Lymph # (Auto) 1.7 [place] # (Auto) 0.7 Eos # (Auto) 0.1 Baso # (Auto) 0.1 Differential Comment PT INR APTT pO2 VBG pH VBG pCO2 VBG HCO3 VBG Total CO2 VBG O2 Sat (Calc) VBG Base Excess VBG Potassium Glucose Lactate FiO2 Sodium 141 Potassium 4.0 Chloride 106 Carbon Dioxide 25 Anion Gap 13 BUN 13 Creatinine 0.8 Est GFR ( Amer) > 60 Est GFR (Non-Af Amer) > 60 Random Glucose 119 H Calcium 8.1 L Phosphorus 4.5 Magnesium 1.5 L Total Bilirubin 2.4 H AST 83 H ALT 26 Alkaline Phosphatase 141 H Ammonia 41 H D Total Creatine Kinase CK-MB (Mass) Troponin I NT-Pro-B Natriuret Pep Total Protein 7.6 Albumin 3.0 L Globulin 4.5 H Albumin/Globulin Ratio 0.7 L Venous Blood Potassium Stool Occult Blood Blood Type Antibody Screen Assessment & Plan - Assessment and Plan (Free Text) Assessment: 42 year old male with PMH of decompensated alcoholic cirrhosis 2/2 Hepatic encephalopathy, 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 #Generalized weakness - possible viral syndrome #Chronic anemia, microcytic #Decompensated cirrhosis w/ HE, hx of ascites. #Chronic venous stasis with ulcers Plan: -CT reviewed. No Ascites. -Prior EGD 08/05/17 showed H. pylori negative gastritis, history of grade 1 esophageal varies on EGD 10/2015, and colonoscopy 10/2015 with internal hemorrhoids. -MELD 14 -No active GI bleeding at this time -H/H stable and appropriately responded to 1u pRBCs, continue to monitor. -PPI 40mg daily -continue spironolactone 25 BID -Lasix currently 40mg IV BID. recommend avoiding overdiuresis. Can go to lasix 2 0mg PO daily from GI perspective. -continue Lactulose 20g BID, titrate to 2-3 BMs daily -Continue Propranolol 5mg TID -Abx per primary/ID -Suggest graduated compression stockings for legs, elevation and wound care -Full liquid diet. If tolerating, advance to low salt diet - Date & Time Date: 04/11/18 Time: 08:18 <Ruddy Holt - Last Filed: 04/11/18 14:22> Meds - Medications Medications: Current Medications Albuterol/Ipratropium (Duoneb 3 Mg/0.5 Mg (3 Ml) Ud) 3 ml INH RQ6 FLY Last Admin: 04/11/18 13:09 Dose: 3 ml Fluocinonide (Lidex 0.05% Cream) 0 gm TOP BID FLY Last Admin: 04/11/18 12:59 Dose: 0.5 applic Furosemide (Lasix) 40 mg IVP Q12 [facility] Last Admin: 04/11/18 11:00 Dose: 40 mg Piperacillin Sod/Tazobactam Sod (Zosyn 2.25 Gm Iv Premix) 2.25 gm in 50 mls @ 100 mls/hr IVPB Q6H [facility]; Protocol Last Admin: 04/11/18 12:18 Dose: 100 mls/hr Vancomycin HCl 500 mg/ Sodium (Chloride) 100 mls @ 100 mls/hr IVPB Q12H [facility]; Protocol Last Admin: 04/11/18 09:08 Dose: 100 mls/hr Lactulose (Enulose) 30 gm PO BID [facility] Last Admin: 04/11/18 10:19 Dose: 30 gm Metoprolol Tartrate (Lopressor) 2.5 mg IVP BID [facility] Last Admin: 04/11/18 10:38 Dose: 2.5 mg Pantoprazole Sodium (Protonix Ec Tab) 40 mg PO DAILY [facility] Last Admin: 04/11/18 10:20 Dose: 40 mg Propranolol HCl (Inderal) 5 mg PO TID [facility] Last Admin: 04/11/18 10:00 Dose: 5 mg Spironolactone (Aldactone) 25 mg PO BID [facility] Last Admin: 04/11/18 10:20 Dose: 25 mg Results - Vital Signs Recent Vital Signs: Last Vital Signs Temp 99 F 04/11/18 04:00 Pulse 115 H 04/11/18 06:52 Resp 19 04/11/18 06:52 BP 123/80 04/11/18 11:00 Pulse Ox 100 04/11/18 06:52 - Labs Result Diagrams: 04/11/18 06:24 04/11/18 06:24 Labs: Laboratory Results - last 24 hr 04/10/18 04/10/18 04/10/18 15:54 16:20 16:20 WBC 4.6 L D RBC 3.66 L Hgb 7.8 L Hct 26.2 L MCV 71.6 L D MCH 21.3 L MCHC 29.8 L RDW 19.0 H Plt Count 119 L MPV 8.2 Neut % (Auto) 35.9 L Lymph % (Auto) 48.0 H [place] % (Auto) 13.1 H Eos % (Auto) 1.7 Baso % (Auto) 1.3 Neut # (Auto) 1.6 L Lymph # (Auto) 2.2 [place] # (Auto) 0.6 Eos # (Auto) 0.1 Baso # (Auto) 0.1 Differential Comment Y PT 15.4 H INR 1.4 APTT 52 H pO2 VBG pH VBG pCO2 VBG HCO3 VBG Total CO2 VBG O2 Sat (Calc) VBG Base Excess VBG Potassium Glucose Lactate FiO2 Sodium Potassium Chloride Carbon Dioxide Anion Gap BUN Creatinine Est GFR ( Amer) Est GFR (Non-Af Amer) POC Glucose (mg/dL) 140 H Random Glucose Calcium Phosphorus Magnesium Total Bilirubin AST ALT Alkaline Phosphatase Ammonia Total Creatine Kinase CK-MB (Mass) Troponin I NT-Pro-B Natriuret Pep Total Protein Albumin Globulin Albumin/Globulin Ratio Venous Blood Potassium Stool Occult Blood Blood Type Antibody Screen 04/10/18 04/10/18 04/10/18 16:20 16:25 17:20 WBC RBC Hgb Hct MCV MCH MCHC RDW Plt Count MPV Neut % (Auto) Lymph % (Auto) [place] % (Auto) Eos % (Auto) Baso % (Auto) Neut # (Auto) Lymph # (Auto) [place] # (Auto) Eos # (Auto) Baso # (Auto) Differential Comment PT INR APTT pO2 25 L VBG pH 7.41 VBG pCO2 42 VBG HCO3 24.9 VBG Total CO2 27.9 VBG O2 Sat (Calc) 43.3 VBG Base Excess 1.7 VBG Potassium 3.7 Glucose 120 H Lactate 3.8 H FiO2 21.0 Sodium 140 143.0 Potassium 4.0 Chloride 105 110.0 H Carbon Dioxide 25 Anion Gap 15 BUN 14 Creatinine 0.8 Est GFR ( Amer) > 60 Est GFR (Non-Af Amer) > 60 POC Glucose (mg/dL) Random Glucose 128 H Calcium 7.7 L Phosphorus Magnesium Total Bilirubin 1.0 AST 76 H D ALT 26 Alkaline Phosphatase 153 H D Ammonia Total Creatine Kinase 587 H CK-MB (Mass) 4.97 H Troponin I 0.1350 H* NT-Pro-B Natriuret Pep 1820 H Total Protein 7.3 Albumin 2.8 L D Globulin 4.5 H Albumin/Globulin Ratio 0.6 L Venous Blood Potassium 3.7 Stool Occult Blood Positive H Blood Type Antibody Screen 04/10/18 04/10/18 04/10/18 18:38 18:51 22:57 WBC RBC Hgb Hct MCV MCH MCHC RDW Plt Count MPV Neut % (Auto) Lymph % (Auto) [place] % (Auto) Eos % (Auto) Baso % (Auto) Neut # (Auto) Lymph # (Auto) [place] # (Auto) Eos # (Auto) Baso # (Auto) Differential Comment PT INR APTT pO2 VBG pH VBG pCO2 VBG HCO3 VBG Total CO2 VBG O2 Sat (Calc) VBG Base Excess VBG Potassium Glucose Lactate FiO2 Sodium Potassium Chloride Carbon Dioxide Anion Gap BUN Creatinine Est GFR ( Amer) Est GFR (Non-Af Amer) POC Glucose (mg/dL) Random Glucose Calcium Phosphorus Magnesium Total Bilirubin AST ALT Alkaline Phosphatase Ammonia 143 H D Total Creatine Kinase 512 H CK-MB (Mass) 4.69 H Troponin I 0.1350 H* NT-Pro-B Natriuret Pep Total Protein Albumin Globulin Albumin/Globulin Ratio Venous Blood Potassium Stool Occult Blood Blood Type AB POSITIVE Antibody Screen Negative 04/11/18 04/11/18 04/11/18 05:38 06:24 06:24 WBC 7.0 D RBC 3.95 L Hgb 8.7 L Hct 28.6 L MCV 72.2 L MCH 21.9 L MCHC 30.3 L RDW 19.1 H Plt Count 143 MPV 7.0 L Neut % (Auto) 62.6 Lymph % (Auto) 24.8 [place] % (Auto) 10.3 H Eos % (Auto) 1.1 Baso % (Auto) 1.2 Neut # (Auto) 4.4 Lymph # (Auto) 1.7 [place] # (Auto) 0.7 Eos # (Auto) 0.1 Baso # (Auto) 0.1 Differential Comment PT INR APTT pO2 VBG pH VBG pCO2 VBG HCO3 VBG Total CO2 VBG O2 Sat (Calc) VBG Base Excess VBG Potassium Glucose Lactate FiO2 Sodium Potassium Chloride Carbon Dioxide Anion Gap BUN Creatinine Est GFR ( Amer) Est GFR (Non-Af Amer) POC Glucose (mg/dL) 116 H Random Glucose Calcium Phosphorus Magnesium Total Bilirubin AST ALT Alkaline Phosphatase Ammonia Total Creatine Kinase 513 H CK-MB (Mass) 3.98 H Troponin I 0.1410 H* NT-Pro-B Natriuret Pep Total Protein Albumin Globulin Albumin/Globulin Ratio Venous Blood Potassium Stool Occult Blood Blood Type Antibody Screen 04/11/18 04/11/18 04/11/18 06:24 06:24 11:09 WBC RBC Hgb Hct MCV MCH MCHC RDW Plt Count MPV Neut % (Auto) Lymph % (Auto) [place] % (Auto) Eos % (Auto) Baso % (Auto) Neut # (Auto) Lymph # (Auto) [place] # (Auto) Eos # (Auto) Baso # (Auto) Differential Comment PT INR APTT pO2 VBG pH VBG pCO2 VBG HCO3 VBG Total CO2 VBG O2 Sat (Calc) VBG Base Excess VBG Potassium Glucose Lactate FiO2 Sodium 141 Potassium 4.0 Chloride 106 Carbon Dioxide 25 Anion Gap 13 BUN 13 Creatinine 0.8 Est GFR ( Amer) > 60 Est GFR (Non-Af Amer) > 60 POC Glucose (mg/dL) 163 H Random Glucose 119 H Calcium 8.1 L Phosphorus 4.5 Magnesium 1.5 L Total Bilirubin 2.4 H AST 83 H ALT 26 Alkaline Phosphatase 141 H Ammonia 41 H D Total Creatine Kinase CK-MB (Mass) Troponin I NT-Pro-B Natriuret Pep Total Protein 7.6 Albumin 3.0 L Globulin 4.5 H Albumin/Globulin Ratio 0.7 L Venous Blood Potassium Stool Occult Blood Blood Type Antibody Screen Attending/Attestation - Attestation I have personally seen and examined this patient.: Yes I have fully participated in the care of the patient.: Yes I have reviewed all pertinent clinical information: Yes Notes (Text): 04/11/18 14:17 I have seen and examined patient with GI fellow. Agree with above documentation with the following additions. In brief, this is a 42 year old male with history of decompensated ETOH cirrhosis (last drink in July 2017), chronic anemia, DM, HTN, who presents to hospital with complaint of lower extremity ulceration and cough, malaise. He endorses recent generalized fatigue for the past one week along with vague abdominal and lower extremity discomfort during this time. He denies nausea, vomiting, diarrhea, fever/chills, weight loss, melena, or change in bowel habits. He claims to be compliant with lactulose therapy at home and is having appropriate number of bowel movements daily. Decompensated ETOH cirrhosis - admission MELD 14 Chronic anemia Anasarca Confusion, hepatic encephalopathy Cough- pneumonia - Full liquid diet as tolerated, low sodium - H/H stable, s/p PRBC transfusion continue to monitor. No evidence of overt bleeding noted - Continue with lactulose therapy, ensuring patient is having 2-3 bowel movements daily - Continue with diuretic therapy, monitor electrolytes - Continue with antibiotic therapy - Patient will eventually benefit from tertiary care evaluation at liver transplant center. Will continue to monitor patient clinical course.
[2018-04-11] MEDS: Albuterol-Ipratrop 3 mg / 0.5 (3 ml) UD INH SCH ×3 (07:46→19:40)
--- NOTE | 2018-04-11 07:52 | CT ---
Date of service: 04/11/2018 PROCEDURE: CT HEAD WITHOUT CONTRAST. HISTORY: Altered mental status COMPARISON: 02/01/2018 TECHNIQUE: Axial computed tomography images were obtained through the head/brain without intravenous contrast. Radiation dose: Total exam DLP = 1319.73 mGy-cm. This CT exam was performed using one or more of the following dose reduction techniques: Automated exposure control, adjustment of the mA and/or kV according to patient size, and/or use of iterative reconstruction technique. FINDINGS: HEMORRHAGE: No intracranial hemorrhage. BRAIN: No mass effect or edema. Punctate hypodensities in the bilateral basal ganglia on series 4, image 27 likely represent prominent perivascular spaces. VENTRICLES: Unremarkable. No hydrocephalus. CALVARIUM: Unremarkable. PARANASAL SINUSES: Unremarkable as visualized. No significant inflammatory changes. MASTOID AIR CELLS: Unremarkable as visualized. No inflammatory changes. OTHER FINDINGS: None. IMPRESSION: No acute intracranial abnormality. If there is persistent concern for cerebellar atrophy, correlation with MRI is recommended. If symptoms persists, consider correlation with MRI. A preliminary report was generated at 3:20 a.m. on 04/11/[address] Darren Judd from [email or web address].
[2018-04-11] MEDS: Magnesium Sulfate 1 gm in D5W 1 GM/100 ML BAG IVPB SCH ×2 (09:45→12:16)
[2018-04-11] MEDS ORDERED: Pantoprazole 40 mg EC Tab PO SCH (10:00)
[2018-04-11] MEDS: Propranolol 5 mg Tab PO SCH ×3 (10:00→18:20)
[2018-04-11] MEDS: Pantoprazole 40 mg EC Tab PO SCH (10:20)
[2018-04-11] MEDS: Metoprolol 1 mg/ml Inj IVP SCH ×2 (10:38→18:17)
--- NOTE | 2018-04-11 11:21 | CP.PCM.CON ---
History of Present Illness - History of Present Illness History of Present Illness: 43-year-old male with a history of liver disease, diabetes, psoriasis, psoriatic arthritis, recurrent sepsis and recurrent skin infections, alcoholic liver disease, liver cirrhosis brought in by the family member today because of the w orsening leg swelling, leg ulcers and leaking skin changes in the legs bilaterally. PMHx: Diabetes, hypertension, chronic liver disease, alcoholic liver disease, variceal PSHx: history of endoscopy/colonoscopy Allergies: NKDA Family hx: Father: history of heart transplant; Mother: hypertension/diabetes Social Hx: past h/o alcohol consumption (~1pint of vodka per day), denies illicit drug use and former tobacco use Review of Systems - Review of Systems All systems: reviewed and no additional remarkable complaints except - Constitutional Constitutional: As Per HPI - EENT Eyes: absent: As Per HPI, Blind Spots, Blurred Vision, Change in Vision, Dec reased Night Vision, Diplopia, Discharge, Dry Eye, Exophthalmos, Floaters, Irritation, Itchy Eyes, Loss of Peripheral Vision, Pain, Photophobia, Requires Corrective Lenses, Sees Flashes, Spots in Vision, Tunnel Vision, Other Visual Disturbances, Loss of Vision, Other Ears: absent: As Per HPI, Decreased Hearing, Ear Discharge, Ear Pain, Tinnitus, Abnormal Hearing, Disequilibrium, Dizziness, Other Nose/Mouth/Throat: absent: As Per HPI, Epistaxis, Nasal Congestion, Nasal Discharge, Nasal Obstruction, Nasal Trauma, Nose Pain, Post Nasal Drip, Sinus Pain, Sinus Pressure, Bleeding Gums, Change in Voice, Dental Pain, Dry Mouth, Dysphagia, Halitosis, Hoarsness, Lip Swelling, Mouth Lesions, Mouth Pain, Odynophagia, Sore Throat, Throat Swelling, Tongue Swelling, Facial Pain, Neck Pain, Neck Mass, Other - Cardiovascular Cardiovascular: absent: As Per HPI, Acrocyanosis, Chest Pain, Chest Pain at Rest, Chest Pain with Activity, Claudication, Diaphoresis, Dyspnea, Dyspnea on Exertion, Edema, Irregular Heart Rhythm, Pain Radiating to Arm/Neck/Jaw, Leg Edema, Leg Ulcers, Lightheadedness, Orthopnea, Palpitations, Paroxysmal Nocturnal Dyspnea, Pedal Edema, Radiating Pain, Rapid Heart Rate, Slow Heart Rate, Syncope, Other - Respiratory Respiratory: absent: As Per HPI, Cough, Dyspnea, Hemoptysis, Dyspnea on Exertion, Wheezing, Snoring, Stridor, Pain on Inspiration, Chest Congestion, Excessive Mucous Production, Change in Mucous Color, Pain with Coughing, Other - Gastrointestinal Gastrointestinal: As Per HPI - Genitourinary Genitourinary: absent: As Per HPI, Change in Urinary Stream, Difficulty Urinating, Dysuria, Flank Pain, Hematuria, Pyuria, Nocturia, Urinary Incontinence, Urinary Frequency, Urinary Hesitance, Urinary Urgency, Voiding Freq/Small Amts, Freq UTI, Hx Renal/Bladder Calculi, Hx /Renal Surgery, Bladder Distension, Other - Musculoskeletal Musculoskeletal: As Per HPI - Integumentary Integumentary: As Per HPI - Neurological Neurological: As Per HPI - Psychiatric Psychiatric: absent: As Per HPI, Abnormal Sleep Pattern, Anhedonia, Anxiety, Auditory Hallucinations, Behavioral Changes, Change in Appetite, Change in Libido, Confusion, Depression, Difficulty Concentrating, Hallucinations, Homicidal Ideation, Hopelessness, Irritability, Memory Loss, Mood Swings, Panic Attacks, Paranoia, Suicidal Ideation, Visual Hallucinations, Tactile Hallucinations, Other - Endocrine Endocrine: absent: As Per HPI, Change in Body Appearance, Change in Libido, Cold Intolorance, Deepening of Voice, Excessive Sweating, Fatigue, Flushing, Heat Intolorance, Increase in Ring/Shoe/Hat Size, Palpitations, Polydipsia, Polyphagia, Polyuria, Other - Hematologic/Lymphatic Hematologic: absent: As Per HPI, Easy Bleeding, Easy Bruising, Lymphadenopathy, Other Past Patient History - Infectious Disease Hx of Infectious Diseases: None - Past Medical History & Family History Past Medical History?: Yes - Past Social History Smoking Status: Never Smoked - CARDIAC Hx Congestive Heart Failure: Yes Hx Hypercholesterolemia: Yes Hx Hypertension: Yes - PULMONARY Hx Asthma: Yes Hx Pneumonia: Yes (3 years ago) - NEUROLOGICAL Hx Seizures: Yes (etoh induced) - HEENT Hx HEENT Problems: Yes Other/Comment: eye glasses for reading - RENAL Hx Chronic Kidney Disease: No - ENDOCRINE/METABOLIC Hx Endocrine Disorders: Yes Hx Diabetes Mellitus Type 2: Yes - HEMATOLOGICAL/ONCOLOGICAL Hx Anemia: Yes Hx Human Immunodeficiency Virus (HIV): No - INTEGUMENTARY Hx Dermatological Problems: Yes Hx Psoriasis: Yes Other/Comment: Psoriatic Arthritis - MUSCULOSKELETAL/RHEUMATOLOGICAL Hx Arthritis: Yes (psoriatic arthritis; b/l elb; fingers) Hx Rheumatoid Arthritis: Yes - GASTROINTESTINAL Hx Gastrointestinal Disorders: Yes Other/Comment: Liver disease - GENITOURINARY/GYNECOLOGICAL Hx Sexually Transmitted Disorders: No - PSYCHIATRIC Hx Anxiety: Yes Hx Depression: Yes Hx Substance Use: No - SURGICAL HISTORY Hx Surgeries: Yes Hx Orthopedic Surgery: Yes (rt. knee swelling) - ANESTHESIA Hx Anesthesia: Yes Hx Anesthesia Reactions: No Hx Malignant Hyperthermia: No Meds Allergies/Adverse Reactions: Allergies Allergy/AdvReac Type Severity Reaction Status Date / Time No Known Allergies Allergy Verified 04/10/18 14:55 - Medications Medications: Current Medications Albuterol/Ipratropium (Duoneb 3 Mg/0.5 Mg (3 Ml) Ud) 3 ml INH RQ6 [facility] Last Admin: 04/11/18 07:46 Dose: 3 ml Fluocinonide (Lidex 0.05% Cream) 0 gm TOP BID [facility] Furosemide (Lasix) 40 mg IVP Q12 [facility] Last Admin: 04/10/18 22:23 Dose: Not Given Piperacillin Sod/Tazobactam Sod (Zosyn 2.25 Gm Iv Premix) 2.25 gm in 50 mls @ 100 mls/hr IVPB Q6H [facility]; Protocol Last Admin: 04/11/18 04:15 Dose: 100 mls/hr Vancomycin HCl 500 mg/ Sodium (Chloride) 100 mls @ 100 mls/hr IVPB Q12H [facility]; Protocol Last Admin: 04/11/18 09:08 Dose: 100 mls/hr Lactulose (Enulose) 30 gm PO BID [facility] Last Admin: 04/11/18 10:19 Dose: 30 gm Metoprolol Tartrate (Lopressor) 2.5 mg IVP BID [facility] Last Admin: 04/11/18 10:38 Dose: 2.5 mg Pantoprazole Sodium (Protonix Ec Tab) 40 mg PO DAILY [facility] Last Admin: 04/11/18 10:20 Dose: 40 mg Propranolol HCl (Inderal) 5 mg PO TID [facility] Last Admin: 04/10/18 18:35 Dose: 5 mg Spironolactone (Aldactone) 25 mg PO BID [facility] Last Admin: 04/11/18 10:20 Dose: 25 mg Physical Exam - Constitutional Appears: Non-toxic, No Acute Distress, Chronically Ill - Head Exam Head Exam: ATRAUMATIC, NORMAL INSPECTION, NORMOCEPHALIC - Eye Exam Eye Exam: EOMI, PERRL Pupil Exam: NORMAL ACCOMODATION - ENT Exam ENT Exam: Mucous Membranes Dry, Normal External Ear Exam - Neck Exam Neck exam: Positive for: Full Rom - Respiratory Exam Respiratory Exam: Decreased Breath Sounds, Clear to Auscultation Bilateral - Cardiovascular Exam Cardiovascular Exam: REGULAR RHYTHM, +S1, +S2 - GI/Abdominal Exam GI & Abdominal Exam: Diminished Bowel Sounds, Distended, Guarding, Hypoactive Bowel Sounds - Rectal Exam Rectal Exam: Deferred - Exam Exam: NORMAL INSPECTION - Extremities Exam Extremities exam: Positive for: pedal edema, pedal pulses present Additional comments: large ulcers right lower leg approx 6x 12 cm - Back Exam Back exam: FULL ROM - Neurological Exam Neurological exam: Alert, CN II-XII Intact, Oriented x3, Reflexes Normal - Psychiatric Exam Psychiatric exam: Depressed - Skin Skin Exam: Dry Results - Vital Signs Recent Vital Signs: Last Vital Signs Temp 99 F 04/11/18 04:00 Pulse 115 H 04/11/18 06:52 Resp 19 04/11/18 06:52 BP 178/119 H 04/11/18 06:52 Pulse Ox 100 04/11/18 06:52 - Labs Result Diagrams: 04/11/18 06:24 04/11/18 06:24 Labs: Laboratory Results - last 24 hr 04/10/18 04/10/18 04/10/18 15:54 16:20 16:20 WBC 4.6 L D RBC 3.66 L Hgb 7.8 L Hct 26.2 L MCV 71.6 L D MCH 21.3 L MCHC 29.8 L RDW 19.0 H Plt Count 119 L MPV 8.2 Neut % (Auto) 35.9 L Lymph % (Auto) 48.0 H Heard % (Auto) 13.1 H Eos % (Auto) 1.7 Baso % (Auto) 1.3 Neut # (Auto) 1.6 L Lymph # (Auto) 2.2 Heard # (Auto) 0.6 Eos # (Auto) 0.1 Baso # (Auto) 0.1 Differential Comment Y PT 15.4 H INR 1.4 APTT 52 H pO2 VBG pH VBG pCO2 VBG HCO3 VBG Total CO2 VBG O2 Sat (Calc) VBG Base Excess VBG Potassium Glucose Lactate FiO2 Sodium Potassium Chloride Carbon Dioxide Anion Gap BUN Creatinine Est GFR ( Amer) Est GFR (Non-Af Amer) POC Glucose (mg/dL) 140 H Random Glucose Calcium Phosphorus Magnesium Total Bilirubin AST ALT Alkaline Phosphatase Ammonia Total Creatine Kinase CK-MB (Mass) Troponin I NT-Pro-B Natriuret Pep Total Protein Albumin Globulin Albumin/Globulin Ratio Venous Blood Potassium Stool Occult Blood Blood Type Antibody Screen 04/10/18 04/10/18 04/10/18 16:20 16:25 17:20 WBC RBC Hgb Hct MCV MCH MCHC RDW Plt Count MPV Neut % (Auto) Lymph % (Auto) Heard % (Auto) Eos % (Auto) Baso % (Auto) Neut # (Auto) Lymph # (Auto) Heard # (Auto) Eos # (Auto) Baso # (Auto) Differential Comment PT INR APTT pO2 25 L VBG pH 7.41 VBG pCO2 42 VBG HCO3 24.9 VBG Total CO2 27.9 VBG O2 Sat (Calc) 43.3 VBG Base Excess 1.7 VBG Potassium 3.7 Glucose 120 H Lactate 3.8 H FiO2 21.0 Sodium 140 143.0 Potassium 4.0 Chloride 105 110.0 H Carbon Dioxide 25 Anion Gap 15 BUN 14 Creatinine 0.8 Est GFR ( Amer) > 60 Est GFR (Non-Af Amer) > 60 POC Glucose (mg/dL) Random Glucose 128 H Calcium 7.7 L Phosphorus Magnesium Total Bilirubin 1.0 AST 76 H D ALT 26 Alkaline Phosphatase 153 H D Ammonia Total Creatine Kinase 587 H CK-MB (Mass) 4.97 H Troponin I 0.1350 H* NT-Pro-B Natriuret Pep 1820 H Total Protein 7.3 Albumin 2.8 L D Globulin 4.5 H Albumin/Globulin Ratio 0.6 L Venous Blood Potassium 3.7 Stool Occult Blood Positive H Blood Type Antibody Screen 04/10/18 04/10/18 04/10/18 18:38 18:51 22:57 WBC RBC Hgb Hct MCV MCH MCHC RDW Plt Count MPV Neut % (Auto) Lymph % (Auto) Heard % (Auto) Eos % (Auto) Baso % (Auto) Neut # (Auto) Lymph # (Auto) Heard # (Auto) Eos # (Auto) Baso # (Auto) Differential Comment PT INR APTT pO2 VBG pH VBG pCO2 VBG HCO3 VBG Total CO2 VBG O2 Sat (Calc) VBG Base Excess VBG Potassium Glucose Lactate FiO2 Sodium Potassium Chloride Carbon Dioxide Anion Gap BUN Creatinine Est GFR ( Amer) Est GFR (Non-Af Amer) POC Glucose (mg/dL) Random Glucose Calcium Phosphorus Magnesium Total Bilirubin AST ALT Alkaline Phosphatase Ammonia 143 H D Total Creatine Kinase 512 H CK-MB (Mass) 4.69 H Troponin I 0.1350 H* NT-Pro-B Natriuret Pep Total Protein Albumin Globulin Albumin/Globulin Ratio Venous Blood Potassium Stool Occult Blood Blood Type AB POSITIVE Antibody Screen Negative 04/11/18 04/11/18 04/11/18 06:24 06:24 06:24 WBC 7.0 D RBC 3.95 L Hgb 8.7 L Hct 28.6 L MCV 72.2 L MCH 21.9 L MCHC 30.3 L RDW 19.1 H Plt Count 143 MPV 7.0 L Neut % (Auto) 62.6 Lymph % (Auto) 24.8 Heard % (Auto) 10.3 H Eos % (Auto) 1.1 Baso % (Auto) 1.2 Neut # (Auto) 4.4 Lymph # (Auto) 1.7 Heard # (Auto) 0.7 Eos # (Auto) 0.1 Baso # (Auto) 0.1 Differential Comment PT INR APTT pO2 VBG pH VBG pCO2 VBG HCO3 VBG Total CO2 VBG O2 Sat (Calc) VBG Base Excess VBG Potassium Glucose Lactate FiO2 Sodium 141 Potassium 4.0 Chloride 106 Carbon Dioxide 25 Anion Gap 13 BUN 13 Creatinine 0.8 Est GFR ( Amer) > 60 Est GFR (Non-Af Amer) > 60 POC Glucose (mg/dL) Random Glucose 119 H Calcium 8.1 L Phosphorus 4.5 Magnesium 1.5 L Total Bilirubin 2.4 H AST 83 H ALT 26 Alkaline Phosphatase 141 H Ammonia Total Creatine Kinase 513 H CK-MB (Mass) 3.98 H Troponin I 0.1410 H* NT-Pro-B Natriuret Pep Total Protein 7.6 Albumin 3.0 L Globulin 4.5 H Albumin/Globulin Ratio 0.7 L Venous Blood Potassium Stool Occult Blood Blood Type Antibody Screen 04/11/18 04/11/18 06:24 11:09 WBC RBC Hgb Hct MCV MCH MCHC RDW Plt Count MPV Neut % (Auto) Lymph % (Auto) Heard % (Auto) Eos % (Auto) Baso % (Auto) Neut # (Auto) Lymph # (Auto) Heard # (Auto) Eos # (Auto) Baso # (Auto) Differential Comment PT INR APTT pO2 VBG pH VBG pCO2 VBG HCO3 VBG Total CO2 VBG O2 Sat (Calc) VBG Base Excess VBG Potassium Glucose Lactate FiO2 Sodium Potassium Chloride Carbon Dioxide Anion Gap BUN Creatinine Est GFR ( Amer) Est GFR (Non-Af Amer) POC Glucose (mg/dL) 163 H Random Glucose Calcium Phosphorus Magnesium Total Bilirubin AST ALT Alkaline Phosphatase Ammonia 41 H D Total Creatine Kinase CK-MB (Mass) Troponin I NT-Pro-B Natriuret Pep Total Protein Albumin Globulin Albumin/Globulin Ratio Venous Blood Potassium Stool Occult Blood Blood Type Antibody Screen Assessment & Plan (1) AA (alcohol abuse) Status: Acute (2) Abdominal pain Status: Acute (3) Cellulitis, leg Status: Acute (4) Cirrhosis Status: Acute - Assessment and Plan (Free Text) Assessment: 42M with history of alcoholic cirrhosis, esophageal varices presenting with generalized weakness, malaise, leg ulcers, cough. He has been disoriented and lethargic complaining of pain all over. He is being treated for hepatic encephalopathy, sepsis, cellulitis of legs and possible pneumonia Cultures are pending IV antibiotics Vanco/ Zosyn ordered
--- NOTE | 2018-04-11 12:02 | VASCLAB ---
Date of service: 04/11/2018 PROCEDURE: Lower Extremity Venous Duplex Exam. HISTORY: DVT, Edema PRIORS: Last exam 02/08/2016, normal. TECHNIQUE: Bilateral common femoral, femoral, popliteal and posterior tibial, peroneal and great saphenous veins were evaluated. Flow was assessed with color Doppler, compressibility, assessment of phasic flow and augmentation response. Report prepared by DEBORAH Gordon FINDINGS: RIGHT: 1. Common Femoral Vein: 1.1. Compressibility - Fully compressible: Thrombus - None : Flow - Phasic: Augmentation -Normal: Reflux - None. 2. Femoral Vein: 2.1. Compressibility - Fully compressible: Thrombus - None : Flow - Phasic: Augmentation -Normal: Reflux - None. 3. Popliteal Vein: 3.1. Compressibility - Fully compressible: Thrombus - None : Flow - Phasic: Augmentation -Normal: Reflux - None. 4. Posterior Tibial Vein: 4.1. Compressibility - Fully compressible: Thrombus - None: Flow - Phasic: Augmentation -Normal: Reflux - None. 5. Peroneal Vein: 5.1. Unable to visualize due to swelling. 6. Great Saphenous Vein: 6.1. Compressibility - Fully compressible: Thrombus - None: Flow - Phasic: Augmentation - Normal: Reflux - None. LEFT: 1. Common Femoral Vein: 1.1. Compressibility - Fully compressible: Thrombus - None: Flow - Phasic: Augmentation -Normal: Reflux - None. 2. Femoral Vein: 2.1. Compressibility - Fully compressible: Thrombus - None: Flow - Phasic: Augmentation -Normal: Reflux - None. 3. Popliteal Vein: 3.1. Compressibility - Fully compressible: Thrombus - None : Flow - Phasic: Augmentation -Normal: Reflux - None. 4. Posterior Tibial Vein: 4.1. Compressibility - Fully compressible: Thrombus - None: Flow - Phasic: Augmentation -Normal: Reflux - None. 5. Peroneal Vein: 5.1. Compressibility - Fully compressible: Thrombus - None: Flow - Phasic: Augmentation -Normal: Reflux - None. 6. Great Saphenous Vein: 6.1. Compressibility - Fully compressible: Thrombus - None: Flow - Phasic: Augmentation - Normal: Reflux - None. OTHER FINDINGS: Markedly pulsatile venous flow noted bilaterally. IMPRESSION: Right: No evidence of deep or superficial vein thrombosis of the right lower extremity, for the imaged veins. Left: No evidence of deep or superficial vein thrombosis of the left lower extremity.
--- NOTE | 2018-04-11 13:28 | CT ---
Date of service: 04/11/2018 PROCEDURE: CT Chest, Abdomen and Pelvis with intravenous contrast HISTORY: retching, ams COMPARISON: None available. TECHNIQUE: IV dose administered: Radiation dose: Total exam DLP = 3755.96 mGy-cm. This CT exam was performed using one or more of the following dose reduction techniques: Automated exposure control, adjustment of the mA and/or kV according to patient size, and/or use of iterative reconstruction technique. FINDINGS: CT CHEST WITH CONTRAST: LUNGS: Bilateral interstitial infiltrates, right greater than left with a right pleural effusion. MEDIASTINUM: Unremarkable. Normal caliber aorta and pulmonary arterial trunk. No aortic dissection. Normal size heart. LYMPH NODES: Unremarkable. PLEURA: See above. BONES: Unremarkable. OTHER FINDINGS: None. CT ABDOMEN AND PELVIS: LIVER: Cirrhosis without evidence of hepatic mass. GALLBLADDER AND BILE DUCTS: Gallstones. PANCREAS: Unremarkable. No gross lesion or ductal dilatation. SPLEEN: Unremarkable. ADRENALS: Unremarkable. No mass. KIDNEYS AND URETERS: Unremarkable. No hydronephrosis. No solid mass. VASCULATURE: No aortic atherosclerotic calcification or mural plaque present. Unremarkable. No aortic aneurysm. BOWEL: Unremarkable. No obstruction. No gross mural thickening. APPENDIX: Normal appendix. PERITONEUM: Anasarca. No free fluid. No free air. LYMPH NODES: Unremarkable. No enlarged lymph nodes. BLADDER: Unremarkable. REPRODUCTIVE: Unremarkable. BONES: No acute fracture. OTHER FINDINGS: None. IMPRESSION: Bilateral interstitial infiltrates, right greater than left with a right pleural effusion. Anasarca. Cirrhosis.
[2018-04-12 02:39] VITALS: RESP 20
[2018-04-12] MEDS: Piperacill/Tazo 2.25gm in Dex 2.25 GM/50 ML BAG IVPB SCH ×4 (05:20→22:28)
--- NOTE | 2018-04-12 05:55 | CP.PCM.CON ---
History of Present Illness - History of Present Illness History of Present Illness: Reaso For Consultation: Elevated Troponin 42 M with h/o DM, alcohol cirrhosis, h/o esophageal varices, htn, chronic venous ulcers, lymphoedema, stopped drinking about 6 months, brought to ER with c/o weakness, lethargy. In ER he was found disoriented, lethargic, hypertensive, edematous, anemic, elevated CPK, sight + troponin. Further w/u showed he hyperammonia. He was given 1 unit prbc. At time of exam, patient was disoriented to place, time, lethargic and would not contribute more information. Patient noticed to be intermittently retching and coughing. PMH as above PSH live with family ex alcoholism, denies smoking Meds reviewed Allergies NKDA Family history father cardiac transplant. Review of Systems - Review of Systems All systems: reviewed and no additional remarkable complaints except (HPI) - Medications Medications: Current Medications Albuterol/Ipratropium (Duoneb 3 Mg/0.5 Mg (3 Ml) Ud) 3 ml INH RQ6 [facility]Y Last Admin: 04/10/18 20:10 Dose: 3 ml Fluocinonide (Lidex 0.05% Cream) 0 gm TOP BID FLY Furosemide (Lasix) 40 mg IVP Q12 [facility]Y Last Admin: 04/10/18 22:23 Dose: Not Given Furosemide (Lasix) 40 mg IVP STAT STA Stop: 04/11/18 03:11 Piperacillin Sod/Tazobactam Sod (Zosyn 2.25 Gm Iv Premix) 2.25 gm in 50 mls @ 100 mls/hr IVPB Q6H [facility]; Protocol Last Admin: 04/11/18 00:05 Dose: 100 mls/hr Vancomycin HCl 500 mg/ Sodium (Chloride) 100 mls @ 100 mls/hr IVPB Q12H [facility]; Protocol Last Admin: 04/10/18 18:04 Dose: Not Given Lactulose (Enulose) 20 gm PO BID FLY Last Admin: 04/10/18 18:33 Dose: 20 gm Lactulose (Enulose) 20 gm PO Q2H [facility] Stop: 04/11/18 09:16 Metoprolol Tartrate (Lopressor) 2.5 mg IVP BID FLY Ondansetron HCl (Zofran Inj) 4 mg IVP ONCE ONE Stop: 04/11/18 03:10 Pantoprazole Sodium (Protonix Inj) 40 mg IVP Q12H [facility] Last Admin: 04/10/18 18:13 Dose: 40 mg Propranolol HCl (Inderal) 5 mg PO TID [facility] Last Admin: 04/10/18 18:35 Dose: 5 mg Spironolactone (Aldactone) 25 mg PO BID [facility] Last Admin: 04/10/18 18:35 Dose: 25 mg Physical Exam - Additional Findings Additional findings: * HEENT BRIANA * Neck supple * Chest Clear * CVS regular, borderline tachycardia 115/min, sinus * PA distended * Ext b/l lymphoedema, right leg full thickness chronic skin ulcers * [employer]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, not oriented to place, time * skin anasarca Results - Vital Signs Recent Vital Signs: Last Vital Signs Temp 99.6 F 04/11/18 03:00 Pulse 105 H 04/11/18 02:40 Resp 18 04/11/18 02:40 BP 178/102 H 04/11/18 02:40 Pulse Ox 99 04/11/18 02:40 - Labs Result Diagrams: 04/10/18 16:20 04/10/18 16:20 Labs: Laboratory Results - last 24 hr 04/10/18 04/10/18 04/10/18 16:20 16:20 16:20 WBC 4.6 L D RBC 3.66 L Hgb 7.8 L Hct 26.2 L MCV 71.6 L D MCH 21.3 L MCHC 29.8 L RDW 19.0 H Plt Count 119 L MPV 8.2 Neut % (Auto) 35.9 L Lymph % (Auto) 48.0 H [place] % (Auto) 13.1 H Eos % (Auto) 1.7 Baso % (Auto) 1.3 Neut # (Auto) 1.6 L Lymph # (Auto) 2.2 [place] # (Auto) 0.6 Eos # (Auto) 0.1 Baso # (Auto) 0.1 Differential Comment Y PT 15.4 H INR 1.4 APTT 52 H pO2 VBG pH VBG pCO2 VBG HCO3 VBG Total CO2 VBG O2 Sat (Calc) VBG Base Excess VBG Potassium Glucose Lactate FiO2 Sodium 140 Potassium 4.0 Chloride 105 Carbon Dioxide 25 Anion Gap 15 BUN 14 Creatinine 0.8 Est GFR ( Amer) > 60 Est GFR (Non-Af Amer) > 60 Random Glucose 128 H Calcium 7.7 L Total Bilirubin 1.0 AST 76 H D ALT 26 Alkaline Phosphatase 153 H D Ammonia Total Creatine Kinase 587 H CK-MB (Mass) 4.97 H Troponin I 0.1350 H* NT-Pro-B Natriuret Pep 1820 H Total Protein 7.3 Albumin 2.8 L D Globulin 4.5 H Albumin/Globulin Ratio 0.6 L Venous Blood Potassium Stool Occult Blood Blood Type Antibody Screen 04/10/18 04/10/18 04/10/18 16:25 17:20 18:38 WBC RBC Hgb Hct MCV MCH MCHC RDW Plt Count MPV Neut % (Auto) Lymph % (Auto) [place] % (Auto) Eos % (Auto) Baso % (Auto) Neut # (Auto) Lymph # (Auto) [place] # (Auto) Eos # (Auto) Baso # (Auto) Differential Comment PT INR APTT pO2 25 L VBG pH 7.41 VBG pCO2 42 VBG HCO3 24.9 VBG Total CO2 27.9 VBG O2 Sat (Calc) 43.3 VBG Base Excess 1.7 VBG Potassium 3.7 Glucose 120 H Lactate 3.8 H FiO2 21.0 Sodium 143.0 Potassium Chloride 110.0 H Carbon Dioxide Anion Gap BUN Creatinine Est GFR ( Amer) Est GFR (Non-Af Amer) Random Glucose Calcium Total Bilirubin AST ALT Alkaline Phosphatase Ammonia Total Creatine Kinase CK-MB (Mass) Troponin I NT-Pro-B Natriuret Pep Total Protein Albumin Globulin Albumin/Globulin Ratio Venous Blood Potassium 3.7 Stool Occult Blood Positive H Blood Type AB POSITIVE Antibody Screen Negative 04/10/18 04/10/18 18:51 22:57 WBC RBC Hgb Hct MCV MCH MCHC RDW Plt Count MPV Neut % (Auto) Lymph % (Auto) [place] % (Auto) Eos % (Auto) Baso % (Auto) Neut # (Auto) Lymph # (Auto) [place] # (Auto) Eos # (Auto) Baso # (Auto) Differential Comment PT INR APTT pO2 VBG pH VBG pCO2 VBG HCO3 VBG Total CO2 VBG O2 Sat (Calc) VBG Base Excess VBG Potassium Glucose Lactate FiO2 Sodium Potassium Chloride Carbon Dioxide Anion Gap BUN Creatinine Est GFR ( Amer) Est GFR (Non-Af Amer) Random Glucose Calcium Total Bilirubin AST ALT Alkaline Phosphatase Ammonia 143 H D Total Creatine Kinase 512 H CK-MB (Mass) 4.69 H Troponin I 0.1350 H* NT-Pro-B Natriuret Pep Total Protein Albumin Globulin Albumin/Globulin Ratio Venous Blood Potassium Stool Occult Blood Blood Type Antibody Screen Assessment & Plan - Assessment and Plan (Free Text) Assessment: Elevated Troponin/Non OR * Hepatic encephalopathy * Hyper ammonia * Hypertensive * suspected some aspiration * Anemia * h/o varices * borderline troponin likely form rhabdo * Anasarca * Lymphoedema, chronic leg ulcers * Type 2 dm * H/o alcoholism in past Plan: * Observe in icu * Aspiration precautions * npo except meds * Lctulose q2 hrs till diarrhea * PRBC ordered by primary team * Empiric abx started by primary team * accuchecks * See orders for detail. Past Patient History - Infectious Disease Hx of Infectious Diseases: None - Past Medical History & Family History Past Medical History?: Yes - Past Social History Smoking Status: Never Smoked - CARDIAC Hx Congestive Heart Failure: Yes Hx Hypercholesterolemia: Yes Hx Hypertension: Yes - PULMONARY Hx Asthma: Yes Hx Pneumonia: Yes (3 years ago) - NEUROLOGICAL Hx Seizures: Yes (etoh induced) - HEENT Hx HEENT Problems: Yes Other/Comment: eye glasses for reading - RENAL Hx Chronic Kidney Disease: No - ENDOCRINE/METABOLIC Hx Endocrine Disorders: Yes Hx Diabetes Mellitus Type 2: Yes - HEMATOLOGICAL/ONCOLOGICAL Hx Anemia: Yes Hx Human Immunodeficiency Virus (HIV): No - INTEGUMENTARY Hx Dermatological Problems: Yes Hx Psoriasis: Yes Other/Comment: Psoriatic Arthritis - MUSCULOSKELETAL/RHEUMATOLOGICAL Hx Arthritis: Yes (psoriatic arthritis; b/l elb; fingers) Hx Rheumatoid Arthritis: Yes - GASTROINTESTINAL Hx Gastrointestinal Disorders: Yes Other/Comment: Liver disease - GENITOURINARY/GYNECOLOGICAL Hx Sexually Transmitted Disorders: No - PSYCHIATRIC Hx Anxiety: Yes Hx Depression: Yes Hx Substance Use: No - SURGICAL HISTORY Hx Surgeries: Yes Hx Orthopedic Surgery: Yes (rt. knee swelling) - ANESTHESIA Hx Anesthesia: Yes Hx Anesthesia Reactions: No Hx Malignant Hyperthermia: No Meds Home Medications: Home Medication List Medication Instructions Recorded Confirmed Type Ammonium Lactate 12% [Lac-Hydrin 0 gm EXT DAILY bottle 04/15/18 Rx 12% Lotion (225 g)] Ascorbic Acid [Vitamin C 500 mg 500 mg PO Q12 tab 04/15/18 Rx Tab] Fluocinonide 0.05% Cream [Lidex 0 gm TOP BID tube 04/15/18 Rx 0.05% Cream] Magnesium Oxide [Mag-Ox] 400 mg PO DAILY tab 04/15/18 Rx Mupirocin 2% Nasal [Bactroban 2% 0.25 gm ORION BID tube 04/15/18 Rx Nasal] Vancomycin/0.9 % Sod Chloride 750 mg IV Q12H 10 Days froz.piggy 04/15/18 Rx [Vanco 750 mg/150 ml-0.9% NaCl] Allergies/Adverse Reactions: Allergies Allergy/AdvReac Type Severity Reaction Status Date / Time No Known Allergies Allergy Verified 04/10/18 14:55 - Medications Medications: Current Medications Albuterol/Ipratropium (Duoneb 3 Mg/0.5 Mg (3 Ml) Ud) 3 ml INH RQ6 [facility] Last Admin: 04/11/18 19:40 Dose: 3 ml Fluocinonide (Lidex 0.05% Cream) 0 gm TOP BID [facility] Last Admin: 04/11/18 18:24 Dose: 1 applic Furosemide (Lasix) 40 mg IVP Q12 [facility] Last Admin: 04/11/18 21:42 Dose: 40 mg Piperacillin Sod/Tazobactam Sod (Zosyn 2.25 Gm Iv Premix) 2.25 gm in 50 mls @ 100 mls/hr IVPB Q6H [facility]; Protocol Last Admin: 04/12/18 05:20 Dose: 100 mls/hr Vancomycin HCl 500 mg/ Sodium (Chloride) 100 mls @ 100 mls/hr IVPB Q12H [facility]; Protocol Last Admin: 04/11/18 18:13 Dose: 100 mls/hr Lactulose (Enulose) 30 gm PO BID [facility] Last Admin: 04/11/18 18:15 Dose: 30 gm Metoprolol Tartrate (Lopressor) 2.5 mg IVP BID [facility] Last Admin: 04/11/18 18:17 Dose: 2.5 mg Pantoprazole Sodium (Protonix Ec Tab) 40 mg PO DAILY [facility] Last Admin: 04/11/18 10:20 Dose: 40 mg Propranolol HCl (Inderal) 5 mg PO TID [facility] Last Admin: 04/11/18 18:20 Dose: 5 mg Spironolactone (Aldactone) 25 mg PO BID [facility] Last Admin: 04/11/18 18:16 Dose: 25 mg Results - Vital Signs Recent Vital Signs: Last Vital Signs Temp 97.3 F L 04/12/18 04:00 Pulse 89 04/12/18 04:07 Resp 20 04/12/18 04:00 BP 147/89 04/12/18 04:00 Pulse Ox 99 04/12/18 04:00 - Labs Result Diagrams: 04/14/18 07:09 04/13/18 10:59 Labs: Laboratory Results - last 24 hr 04/10/18 04/11/18 04/11/18 15:54 05:38 06:24 WBC RBC Hgb Hct MCV MCH MCHC RDW Plt Count MPV Neut % (Auto) Lymph % (Auto) [place] % (Auto) Eos % (Auto) Baso % (Auto) Neut # (Auto) Lymph # (Auto) [place] # (Auto) Eos # (Auto) Baso # (Auto) Sodium Potassium Chloride Carbon Dioxide Anion Gap BUN Creatinine Est GFR ( Amer) Est GFR (Non-Af Amer) POC Glucose (mg/dL) 140 H 116 H Random Glucose Calcium Phosphorus Magnesium Total Bilirubin AST ALT Alkaline Phosphatase Ammonia Total Creatine Kinase 513 H CK-MB (Mass) 3.98 H Troponin I 0.1410 H* Total Protein Albumin Globulin Albumin/Globulin Ratio 04/11/18 04/11/18 04/11/18 06:24 06:24 06:24 WBC 7.0 D RBC 3.95 L Hgb 8.7 L Hct 28.6 L MCV 72.2 L MCH 21.9 L MCHC 30.3 L RDW 19.1 H Plt Count 143 MPV 7.0 L Neut % (Auto) 62.6 Lymph % (Auto) 24.8 [place] % (Auto) 10.3 H Eos % (Auto) 1.1 Baso % (Auto) 1.2 Neut # (Auto) 4.4 Lymph # (Auto) 1.7 [place] # (Auto) 0.7 Eos # (Auto) 0.1 Baso # (Auto) 0.1 Sodium 141 Potassium 4.0 Chloride 106 Carbon Dioxide 25 Anion Gap 13 BUN 13 Creatinine 0.8 Est GFR ( Amer) > 60 Est GFR (Non-Af Amer) > 60 POC Glucose (mg/dL) Random Glucose 119 H Calcium 8.1 L Phosphorus 4.5 Magnesium 1.5 L Total Bilirubin 2.4 H AST 83 H ALT 26 Alkaline Phosphatase 141 H Ammonia 41 H D Total Creatine Kinase CK-MB (Mass) Troponin I Total Protein 7.6 Albumin 3.0 L Globulin 4.5 H Albumin/Globulin Ratio 0.7 L 04/11/18 04/11/18 11:09 17:54 WBC RBC Hgb Hct MCV MCH MCHC RDW Plt Count MPV Neut % (Auto) Lymph % (Auto) [place] % (Auto) Eos % (Auto) Baso % (Auto) Neut # (Auto) Lymph # (Auto) [place] # (Auto) Eos # (Auto) Baso # (Auto) Sodium Potassium Chloride Carbon Dioxide Anion Gap BUN Creatinine Est GFR ( Amer) Est GFR (Non-Af Amer) POC Glucose (mg/dL) 163 H 190 H Random Glucose Calcium Phosphorus Magnesium Total Bilirubin AST ALT Alkaline Phosphatase Ammonia Total Creatine Kinase CK-MB (Mass) Troponin I Total Protein Albumin Globulin Albumin/Globulin Ratio
[2018-04-12 07:29] LABS: BASO # 0.1 K/uL (0.0-0.2); EOS # 0.3 K/uL (0.0-0.7); EOS % 4.7 % (0.0-4.0); HEMOGLOBIN 8.7 g/dL (12.0-18.0); LYMPH % 30.3 % (20.0-40.0); MEAN CELL VOLUME 72.9 fL (80.0-94.0); MEAN CORPUSCULAR HGB CONC 30.1 g/dL (33.0-37.0); MEAN PLATELET VOLUME 7.7 fL (7.2-11.7); MONO # 0.6 K/uL (0.0-0.8); MONO % 9.5 % (0.0-10.0); NEUT # 3.6 K/uL (1.8-7.0); NEUT % 54.5 % (50.0-75.0); NRBC % 0.5 % (0.0-2.0); RBC 3.96 Mil/uL (4.40-5.90); RED CELL DISTRIBUTION WIDTH 19.5 % (11.5-14.5); WHITE BLOOD COUNT 6.5 K/uL (4.8-10.8)
[2018-04-12] MEDS: Albuterol-Ipratrop 3 mg / 0.5 (3 ml) UD INH SCH ×3 (07:45→19:51)
--- NOTE | 2018-04-12 08:02 | CP.PCM.PN ---
<Aaron Campoverde - Last Filed: 04/12/18 09:10> Subjective - Date & Time of Evaluation Date of Evaluation: 04/12/18 Time of Evaluation: 07:58 - Subjective Subjective: Patient is more alert and oriented today. Knows the year and month and president. He had 1 loose brown BM lastnight. Requesting food, denies abdominal pain and nausea/vomiting. 5pt ROS neg except for above. Objective - Vital Signs/Intake and Output Vital Signs (last 24 hours): Temp Pulse Resp BP Pulse Ox 99.5 F 96 H 20 128/90 100 04/12/18 07:00 04/12/18 07:00 04/12/18 07:00 04/12/18 07:00 04/12/18 07:00 Intake and Output: 04/12/18 04/12/18 06:59 18:59 Intake Total 50 Output Total 300 Balance -250 - Medications Medications: Current Medications Albuterol/Ipratropium (Duoneb 3 Mg/0.5 Mg (3 Ml) Ud) 3 ml INH RQ6 [facility] Last Admin: 04/11/18 19:40 Dose: 3 ml Ascorbic Acid (Vitamin C 500 Mg Tab) 500 mg PO Q12 [facility] Fluocinonide (Lidex 0.05% Cream) 0 gm TOP BID [facility] Last Admin: 04/11/18 18:24 Dose: 1 applic Furosemide (Lasix) 40 mg IVP Q12 [facility] Last Admin: 04/11/18 21:42 Dose: 40 mg Piperacillin Sod/Tazobactam Sod (Zosyn 2.25 Gm Iv Premix) 2.25 gm in 50 mls @ 100 mls/hr IVPB Q6H [facility]; Protocol Last Admin: 04/12/18 05:20 Dose: 100 mls/hr Vancomycin HCl 500 mg/ Sodium (Chloride) 100 mls @ 100 mls/hr IVPB Q12H [facility]; Protocol Last Admin: 04/12/18 05:56 Dose: 100 mls/hr Lactulose (Enulose) 30 gm PO BID [facility] Last Admin: 04/11/18 18:15 Dose: 30 gm Multivitamins/Vitamin C (Multi-Delyn Liquid) 5 ml PO DAILY [facility] Pantoprazole Sodium (Protonix Ec Tab) 40 mg PO DAILY [facility] Last Admin: 04/11/18 10:20 Dose: 40 mg Propranolol HCl (Inderal) 10 mg PO TID [facility] Spironolactone (Aldactone) 25 mg PO BID [facility] Last Admin: 04/11/18 18:16 Dose: 25 mg Zinc Sulfate (Zinc Sulfate 220 Mg Cap) 220 mg PO DAILY [facility] - Labs Labs: 04/12/18 06:53 04/11/18 06:24 PT 15.4 SECONDS (9.7-12.2) H 04/10/18 16:20 INR 1.4 04/10/18 16:20 APTT 52 SECONDS (21-34) H 04/10/18 16:20 - Constitutional Appears: Non-toxic, No Acute Distress, Chronically Ill - Head Exam Head Exam: NORMAL INSPECTION, NORMOCEPHALIC - Eye Exam Eye Exam: EOMI, Normal appearance - ENT Exam ENT Exam: Mucous Membranes Moist, Normal Exam - Respiratory Exam Respiratory Exam: Clear to Ausculation Bilateral, NORMAL BREATHING PATTERN - Cardiovascular Exam Cardiovascular Exam: REGULAR RHYTHM, +S1, +S2 - GI/Abdominal Exam GI & Abdominal Exam: Soft, Normal Bowel Sounds. absent: Tenderness - Extremities Exam Extremities Exam: Pedal Edema. 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 #Generalized weakness - possible viral syndrome, pneumonia #Chronic anemia, microcytic #Decompensated cirrhosis w/ HE, hx of ascites. #Chronic venous stasis with ulcers Plan: -CT reviewed. No Ascites. -Prior EGD 08/05/17 showed H. pylori negative gastritis, history of grade 1 esophageal varies on EGD 10/2015, and colonoscopy 10/2015 with internal hemorrhoids. -MELD 14 -No active GI bleeding at this time -H/H stable and appropriately responded to 1u pRBCs, continue to monitor. -PPI 40mg daily -continue spironolactone 25 BID -Lasix currently 40mg IV BID. recommend avoiding overdiuresis. Can go to lasix 20mg PO daily from GI perspective. -continue Lactulose 30g BID, titrate to 2-3 BMs daily -Continue Propranolol 5mg TID -Abx per primary/ID -Suggest graduated compression stockings for legs, elevation and wound care -Full liquid diet. If tolerating, advance to low salt diet -We will again give information to patient regarding tertiary referral for liver evaluation <Ruddy Holt - Last Filed: 04/12/18 09:19> Objective - Vital Signs/Intake and Output Vital Signs (last 24 hours): Temp Pulse Resp BP Pulse Ox 99.5 F 96 H 20 128/90 100 04/12/18 07:00 04/12/18 07:00 04/12/18 07:00 04/12/18 07:00 04/12/18 07:00 Intake and Output: 04/12/18 04/12/18 06:59 18:59 Intake Total 50 Output Total 300 Balance -250 - Medications Medications: Current Medications Albuterol/Ipratropium (Duoneb 3 Mg/0.5 Mg (3 Ml) Ud) 3 ml INH RQ6 [facility] Last Admin: 04/11/18 19:40 Dose: 3 ml Ascorbic Acid (Vitamin C 500 Mg Tab) 500 mg PO Q12 [facility] Fluocinonide (Lidex 0.05% Cream) 0 gm TOP BID [facility] Last Admin: 04/11/18 18:24 Dose: 1 applic Furosemide (Lasix) 40 mg IVP Q12 [facility] Last Admin: 04/11/18 21:42 Dose: 40 mg Piperacillin Sod/Tazobactam Sod (Zosyn 2.25 Gm Iv Premix) 2.25 gm in 50 mls @ 100 mls/hr IVPB Q6H [facility]; Protocol Last Admin: 04/12/18 05:20 Dose: 100 mls/hr Vancomycin HCl 500 mg/ Sodium (Chloride) 100 mls @ 100 mls/hr IVPB Q12H [facility]; Pr otocol Last Admin: 04/12/18 05:56 Dose: 100 mls/hr Lactulose (Enulose) 30 gm PO BID [facility] Last Admin: 04/11/18 18:15 Dose: 30 gm Multivitamins/Vitamin C (Multi-Delyn Liquid) 5 ml PO DAILY [facility] Pantoprazole Sodium (Protonix Ec Tab) 40 mg PO DAILY [facility] Last Admin: 04/11/18 10:20 Dose: 40 mg Propranolol HCl (Inderal) 10 mg PO TID [facility] Spironolactone (Aldactone) 25 mg PO BID [facility] Last Admin: 04/11/18 18:16 Dose: 25 mg Zinc Sulfate (Zinc Sulfate 220 Mg Cap) 220 mg PO DAILY [facility] - Labs Labs: 04/12/18 06:53 04/12/18 06:53 PT 15.4 SECONDS (9.7-12.2) H 04/10/18 16:20 INR 1.4 04/10/18 16:20 APTT 52 SECONDS (21-34) H 04/10/18 16:20 Attending/Attestation - Attestation I have personally seen and examined this patient.: Yes I have fully participated in the care of the patient.: Yes I have reviewed all pertinent clinical information, including history, physical exam and plan: Yes Notes (Text): 04/12/18 09:15 I have seen and examined patient with GI fellow. No acute events overnight, he is seen sitting in bed eating breakfast and appears comfortable. He is more alert this morning and answering questions appropriately. He endorses generalized body aches but denies vomiting, fever/chills, melena. Tolerating PO liquids, asking for diet to be advanced. Decompensated ETOH cirrhosis Chronic anemia DM / HTN Lower extremity ulcers, anasarca Pneumonia Confusion, hepatic encephalopathy - resolving - Advance diet to low sodium as tolerated - Continue with antibiotic therapy as per medical team - Continue with lactulose, titrate so patient has 3 bowel movements daily - H/H stable, no overt bleeding noted, continue to monitor - Continue with diuretic therapy, monitor electrolytes - No further planned GI intervention, will sign off case. Will provide patient with contact information for [facility] for transplant evaluation, particularly given recent 8 month period of sobriety. Please reconsult as necessary, thank you.
[2018-04-12 08:05] LABS: ALB/GLOB RATIO 0.6 (1.0-2.1); ALBUMIN 2.5 g/dL (3.5-5.0); ALT/SGPT 23 U/L (21-72); AST/SGOT 53 U/L (17-59); BLOOD UREA NITROGEN 16 mg/dL (9-20); CALCIUM 7.5 mg/dl (8.6-10.4); GFR NON-AFRICAN AMERICAN > 60
[2018-04-12] MEDS: Pantoprazole 40 mg EC Tab PO SCH (10:26)
[2018-04-12] MEDS: Multiple Vitamins Oral Solution PO SCH (10:40)
[2018-04-12] MEDS: Vancomycin 1 gm/NS 200 ml 1 GM/200 ML BAG IVPB SCH (11:39)
--- NOTE | 2018-04-12 12:42 | CP.PCM.PN ---
Subjective - Date & Time of Evaluation Date of Evaluation: 04/12/18 Time of Evaluation: 08:00 - Subjective Subjective: afeb less edema + MRSA wounds IV rx in progress Objective - Vital Signs/Intake and Output Vital Signs (last 24 hours): Temp Pulse Resp BP Pulse Ox 99.5 F 96 H 20 128/90 100 04/12/18 07:00 04/12/18 07:00 04/12/18 07:00 04/12/18 10:26 04/12/18 07:00 Intake and Output: 04/12/18 04/12/18 06:59 18:59 Intake Total 50 Output Total 300 Balance -250 - Medications Medications: Current Medications Albuterol/Ipratropium (Duoneb 3 Mg/0.5 Mg (3 Ml) Ud) 3 ml INH RQ6 [facility] Last Admin: 04/12/18 07:45 Dose: 3 ml Ascorbic Acid (Vitamin C 500 Mg Tab) 500 mg PO Q12 [facility] Last Admin: 04/12/18 10:27 Dose: 500 mg Fluocinonide (Lidex 0.05% Cream) 0 gm TOP BID [facility] Last Admin: 04/12/18 11:39 Dose: 1 applic Furosemide (Lasix) 40 mg IVP Q12 [facility] Last Admin: 04/12/18 10:26 Dose: 40 mg Piperacillin Sod/Tazobactam Sod (Zosyn 2.25 Gm Iv Premix) 2.25 gm in 50 mls @ 100 mls/hr IVPB Q6H [facility]; Protocol Last Admin: 04/12/18 10:27 Dose: 100 mls/hr Vancomycin/Sodium Chloride (Vancomycin 1 Gm/Ns 200 Ml) 1 gm in 200 mls @ 133.333 mls/hr IVPB Q12H [facility]; Protocol Stop: 04/17/18 12:01 Last Admin: 04/12/18 11:39 Dose: 133.333 mls/hr Lactulose (Enulose) 30 gm PO BID [facility] Last Admin: 04/12/18 10:24 Dose: 30 gm Multivitamins/Vitamin C (Multi-Delyn Liquid) 5 ml PO DAILY [facility] Last Admin: 04/12/18 10:40 Dose: 5 ml Pantoprazole Sodium (Protonix Ec Tab) 40 mg PO DAILY [facility] Last Admin: 04/12/18 10:26 Dose: 40 mg Propranolol HCl (Inderal) 10 mg PO TID [facility] Last Admin: 04/12/18 10:40 Dose: 10 mg Spironolactone (Aldactone) 25 mg PO BID [facility] Last Admin: 04/12/18 10:24 Dose: 25 mg Zinc Sulfate (Zinc Sulfate 220 Mg Cap) 220 mg PO DAILY [facility] Last Admin: 04/12/18 10:27 Dose: 220 mg - Labs Labs: 04/12/18 06:53 04/12/18 06:53 PT 15.4 SECONDS (9.7-12.2) H 04/10/18 16:20 INR 1.4 04/10/18 16:20 APTT 52 SECONDS (21-34) H 04/10/18 16:20 - Constitutional Appears: Non-toxic, Confused, Chronically Ill - Head Exam Head Exam: NORMOCEPHALIC - Eye Exam Eye Exam: absent: Nystagmus - Neck Exam Neck Exam: absent: Lymphadenopathy - Respiratory Exam Respiratory Exam: Decreased Breath Sounds - Cardiovascular Exam Cardiovascular Exam: REGULAR RHYTHM - GI/Abdominal Exam GI & Abdominal Exam: Distended - Rectal Exam Rectal Exam: Deferred - Exam Exam: NORMAL INSPECTION - Extremities Exam Extremities Exam: Calf Tenderness, Pedal Edema - Back Exam Back Exam: absent: CVA tenderness (L), CVA tenderness (R) - Neurological Exam Neurological Exam: Alert, Altered Assessment and Plan (1) AA (alcohol abuse) Status: Acute (2) Abdominal pain Status: Acute (3) Cellulitis, leg Status: Acute (4) Cirrhosis Status: Acute - Assessment and Plan (Free Text) Assessment: cont iv rx MRSA
--- NOTE | 2018-04-12 18:18 | CP.PCM.PN ---
Subjective - Date & Time of Evaluation Date of Evaluation: 04/11/18 Time of Evaluation: 18:18 - Subjective Subjective: Patient is to do more awake and responding. Complaining of pain in the right leg extended. Seen the wound management. No discharge noted. No fever now. He is on antibiotic. He is feeling hungry, blood sugar is stable. Making urine. Patient issued blood transfusion. Also receiving Lasix. Will continue the current treatment. Objective - Vital Signs/Intake and Output Vital Signs (last 24 hours): Temp Pulse Resp BP Pulse Ox 98.9 F 92 H 20 133/87 99 04/12/18 15:00 04/12/18 15:00 04/12/18 15:00 04/12/18 15:00 04/12/18 15:00 Intake and Output: 04/12/18 04/12/18 06:59 18:59 Intake Total 50 Output Total 300 Balance -250 - Medications Medications: Current Medications Albuterol/Ipratropium (Duoneb 3 Mg/0.5 Mg (3 Ml) Ud) 3 ml INH RQ6 [facility] Last Admin: 04/12/18 13:15 Dose: 3 ml Ascorbic Acid (Vitamin C 500 Mg Tab) 500 mg PO Q12 [facility] Last Admin: 04/12/18 10:27 Dose: 500 mg Fluocinonide (Lidex 0.05% Cream) 0 gm TOP BID [facility] Last Admin: 04/12/18 11:39 Dose: 1 applic Furosemide (Lasix) 40 mg IVP Q12 [facility] Last Admin: 04/12/18 10:26 Dose: 40 mg Piperacillin Sod/Tazobactam Sod (Zosyn 2.25 Gm Iv Premix) 2.25 gm in 50 mls @ 100 mls/hr IVPB Q6H [facility]; Protocol Last Admin: 04/12/18 17:28 Dose: 100 mls/hr Vancomycin/Sodium Chloride (Vancomycin 1 Gm/Ns 200 Ml) 1 gm in 200 mls @ 133.333 mls/hr IVPB Q12H [facility]; Protocol Stop: 04/17/18 12:01 Last Admin: 04/12/18 11:39 Dose: 133.333 mls/hr Lactulose (Enulose) 30 gm PO BID [facility] Last Admin: 04/12/18 10:24 Dose: 30 gm Multivitamins/Vitamin C (Multi-Delyn Liquid) 5 ml PO DAILY [facility] Last Admin: 04/12/18 10:40 Dose: 5 ml Pantoprazole Sodium (Protonix Ec Tab) 40 mg PO DAILY [facility] Last Admin: 04/12/18 10:26 Dose: 40 mg Propranolol HCl (Inderal) 10 mg PO TID [facility] Last Admin: 04/12/18 13:37 Dose: 10 mg Spironolactone (Aldactone) 25 mg PO BID [facility] Last Admin: 04/12/18 10:24 Dose: 25 mg Zinc Sulfate (Zinc Sulfate 220 Mg Cap) 220 mg PO DAILY [facility] Last Admin: 04/12/18 10:27 Dose: 220 mg - Labs Labs: 04/12/18 06:53 04/12/18 06:53 PT 15.4 SECONDS (9.7-12.2) H 04/10/18 16:20 INR 1.4 04/10/18 16:20 APTT 52 SECONDS (21-34) H 04/10/18 16:20
--- NOTE | 2018-04-12 18:22 | CP.PCM.PN ---
Subjective - Date & Time of Evaluation Date of Evaluation: 04/12/18 Time of Evaluation: 18:19 - Subjective Subjective: Patient today sitting up. He is feeling hungry. He denies any chest pain. Cough is less. Abdominal pain less. No scrotal swelling noted. Edema is also less. He has a dressing in the right leg wound On examination: Vital signs stable. Chest good air entry regular hs nontender abdomen edema bilaterally in the legs noted Assessment and recommendation: 42-year-old male with history liver disease, liver cirrhosis, alcoholism, pso riasis, psoriatic skin disease, diabetes, gout. Admitted now with altered mental status fever in the right leg cellulitis. Patient also has a history of hepatic encephalopathy, on lactulose will continue the current treatment GI evaluation infectious disease followup and will follow the patient Objective - Vital Signs/Intake and Output Vital Signs (last 24 hours): Temp Pulse Resp BP Pulse Ox 98.9 F 92 H 20 133/87 99 04/12/18 15:00 04/12/18 15:00 04/12/18 15:00 04/12/18 15:00 04/12/18 15:00 Intake and Output: 04/12/18 04/12/18 06:59 18:59 Intake Total 50 Output Total 300 Balance -250 - Medications Medications: Current Medications Albuterol/Ipratropium (Duoneb 3 Mg/0.5 Mg (3 Ml) Ud) 3 ml INH RQ6 FLY Last Admin: 04/12/18 13:15 Dose: 3 ml Ascorbic Acid (Vitamin C 500 Mg Tab) 500 mg PO Q12 FLY Last Admin: 04/12/18 10:27 Dose: 500 mg Fluocinonide (Lidex 0.05% Cream) 0 gm TOP BID FLY Last Admin: 04/12/18 11:39 Dose: 1 applic Furosemide (Lasix) 40 mg IVP Q12 FLY Last Admin: 04/12/18 10:26 Dose: 40 mg Piperacillin Sod/Tazobactam Sod (Zosyn 2.25 Gm Iv Premix) 2.25 gm in 50 mls @ 100 mls/hr IVPB Q6H FLY; Protocol Last Admin: 04/12/18 17:28 Dose: 100 mls/hr Vancomycin/Sodium Chloride (Vancomycin 1 Gm/Ns 200 Ml) 1 gm in 200 mls @ 133.333 mls/hr IVPB Q12H FLY; Protocol Stop: 04/17/18 12:01 Last Admin: 04/12/18 11:39 Dose: 133.333 mls/hr Lactulose (Enulose) 30 gm PO BID [facility] Last Admin: 04/12/18 10:24 Dose: 30 gm Multivitamins/Vitamin C (Multi-Delyn Liquid) 5 ml PO DAILY [facility] Last Admin: 04/12/18 10:40 Dose: 5 ml Pantoprazole Sodium (Protonix Ec Tab) 40 mg PO DAILY [facility] Last Admin: 04/12/18 10:26 Dose: 40 mg Propranolol HCl (Inderal) 10 mg PO TID [facility] Last Admin: 04/12/18 13:37 Dose: 10 mg Spironolactone (Aldactone) 25 mg PO BID [facility] Last Admin: 04/12/18 10:24 Dose: 25 mg Zinc Sulfate (Zinc Sulfate 220 Mg Cap) 220 mg PO DAILY [facility] Last Admin: 04/12/18 10:27 Dose: 220 mg - Labs Labs: 04/12/18 06:53 04/12/18 06:53 PT 15.4 SECONDS (9.7-12.2) H 04/10/18 16:20 INR 1.4 04/10/18 16:20 APTT 52 SECONDS (21-34) H 04/10/18 16:20
[2018-04-13] MEDS: Albuterol-Ipratrop 3 mg / 0.5 (3 ml) UD INH SCH ×4 (01:20→19:05)
[2018-04-13] MEDS: Piperacill/Tazo 2.25gm in Dex 2.25 GM/50 ML BAG IVPB SCH ×4 (04:30→22:00)
[2018-04-13 11:08] LABS: BASO # 0.1 K/uL (0.0-0.2); EOS # 0.4 K/uL (0.0-0.7); HEMOGLOBIN 8.2 g/dL (12.0-18.0); LYMPH # 2.3 K/uL (1.0-4.3); MEAN CELL VOLUME 72.9 fL (80.0-94.0); MONO # 0.8 K/uL (0.0-0.8); NRBC % 0.1 % (0.0-2.0); RED CELL DISTRIBUTION WIDTH 19.1 % (11.5-14.5)
[2018-04-13 11:27] LABS: INR 1.8; PROTHROMBIN TIME 19.6 SECONDS (9.7-12.2)
[2018-04-13 11:31] LABS: BASO % 0.9 % (0.0-2.0); EOS % 5.3 % (0.0-4.0); LYMPH % 28.2 % (20.0-40.0); MEAN CORPUSCULAR HEMOGLOBIN 22.4 pg (27.0-31.0); MEAN CORPUSCULAR HGB CONC 30.7 g/dL (33.0-37.0); MEAN PLATELET VOLUME 8.3 fL (7.2-11.7); MONO % 9.8 % (0.0-10.0); NEUT # 4.6 K/uL (1.8-7.0); NEUT % 55.8 % (50.0-75.0); RBC 3.65 Mil/uL (4.40-5.90); WHITE BLOOD COUNT 8.2 K/uL (4.8-10.8)
[2018-04-13] MEDS: Pantoprazole 40 mg EC Tab PO SCH (11:44)
[2018-04-13] MEDS: Multiple Vitamins Oral Solution PO SCH (11:48)
[2018-04-13 12:00] LABS: BLOOD UREA NITROGEN 21 mg/dL (9-20); GFR NON-AFRICAN AMERICAN > 60
[2018-04-13 12:01] LABS: ALB/GLOB RATIO 0.6 (1.0-2.1); ALBUMIN 2.5 g/dL (3.5-5.0); ALT/SGPT 27 U/L (21-72); AST/SGOT 61 U/L (17-59)
[2018-04-13] MEDS: Vancomycin 1 gm/NS 200 ml 1 GM/200 ML BAG IVPB SCH ×2 (12:07)
--- NOTE | 2018-04-13 12:44 | RAD ---
HISTORY: verify left PICC COMPARISON: Chest x-ray performed 04/10/18 TECHNIQUE: Chest, one view. FINDINGS: Left-sided PICC extends expected location of the cavoatrial junction. LUNGS: Moderate pulmonary venous congestion. Please note that chest x-ray has limited sensitivity for the detection of pulmonary masses. PLEURA: No significant pleural effusion identified. No definite pneumothorax . CARDIOVASCULAR: Cardiomegaly. Atherosclerotic calcification present. OSSEOUS STRUCTURES: No acute osseous abnormality identified. VISUALIZED UPPER ABDOMEN: Unremarkable. OTHER FINDINGS: None. IMPRESSION: Left-sided PICC extends expected location of the cavoatrial junction. Moderate pulmonary venous congestion. Cardiomegaly.
--- NOTE | 2018-04-13 17:16 | CP.PCM.PN ---
Subjective - Date & Time of Evaluation Date of Evaluation: 04/13/18 Time of Evaluation: 08:00 - Subjective Subjective: afebrile wounds bandaged less confused Objective - Vital Signs/Intake and Output Vital Signs (last 24 hours): Temp Pulse Resp BP Pulse Ox 98.2 F 81 20 116/74 100 04/13/18 15:00 04/13/18 15:00 04/13/18 15:00 04/13/18 15:00 04/13/18 15:00 Intake and Output: 04/13/18 04/13/18 06:59 18:59 Intake Total 100 Output Total 200 Balance -100 - Medications Medications: Current Medications Albuterol/Ipratropium (Duoneb 3 Mg/0.5 Mg (3 Ml) Ud) 3 ml INH RQ6 FLY Last Admin: 04/13/18 13:40 Dose: 3 ml Ascorbic Acid (Vitamin C 500 Mg Tab) 500 mg PO Q12 FLY Last Admin: 04/13/18 11:44 Dose: 500 mg Fluocinonide (Lidex 0.05% Cream) 0 gm TOP BID [facility]Y Last Admin: 04/13/18 12:11 Dose: 1 applic Furosemide (Lasix) 40 mg IVP DAILY [facility]Y Last Admin: 04/13/18 11:45 Dose: 40 mg Piperacillin Sod/Tazobactam Sod (Zosyn 2.25 Gm Iv Premix) 2.25 gm in 50 mls @ 100 mls/hr IVPB Q6H FLY; Protocol Last Admin: 04/13/18 11:50 Dose: 100 mls/hr Vancomycin/Sodium Chloride (Vancomycin 1 Gm/Ns 200 Ml) 1 gm in 200 mls @ 133.333 mls/hr IVPB Q12H FLY; Protocol Stop: 04/17/18 12:01 Last Admin: 04/13/18 12:07 Dose: 133.333 mls/hr Lactulose (Enulose) 30 gm PO BID FLY Last Admin: 04/13/18 11:47 Dose: 30 gm Magnesium Oxide (Mag-Ox) 400 mg PO DAILY FLY Stop: 04/16/18 12:31 Multivitamins/Vitamin C (Multi-Delyn Liquid) 5 ml PO DAILY FLY Last Admin: 04/13/18 11:48 Dose: 5 ml Pantoprazole Sodium (Protonix Ec Tab) 40 mg PO DAILY [facility]Y Last Admin: 04/13/18 11:44 Dose: 40 mg Propranolol HCl (Inderal) 10 mg PO TID [facility] Last Admin: 04/13/18 11:44 Dose: 10 mg Spironolactone (Aldactone) 25 mg PO BID [facility] Last Admin: 04/13/18 11:44 Dose: 25 mg Zinc Sulfate (Zinc Sulfate 220 Mg Cap) 220 mg PO DAILY [facility] Last Admin: 04/13/18 11:44 Dose: 220 mg - Labs Labs: 04/13/18 10:59 04/13/18 10:59 PT 19.6 SECONDS (9.7-12.2) H 04/13/18 10:59 INR 1.8 04/13/18 10:59 APTT 37 SECONDS (21-34) H D 04/13/18 10:59 - Constitutional Appears: Non-toxic, Chronically Ill - Head Exam Head Exam: NORMOCEPHALIC - Eye Exam Eye Exam: absent: Scleral icterus - ENT Exam ENT Exam: Mucous Membranes Dry - Neck Exam Neck Exam: absent: Lymphadenopathy - Respiratory Exam Respiratory Exam: Decreased Breath Sounds - Cardiovascular Exam Cardiovascular Exam: REGULAR RHYTHM - GI/Abdominal Exam GI & Abdominal Exam: Distended, Soft - Rectal Exam Rectal Exam: Deferred - Exam Exam: NORMAL INSPECTION - Extremities Exam Extremities Exam: Pedal Edema, Tenderness - Back Exam Back Exam: absent: CVA tenderness (L), CVA tenderness (R) Assessment and Plan (1) AA (alcohol abuse) Status: Acute (2) Abdominal pain Status: Acute (3) Cellulitis, leg Status: Acute (4) Cirrhosis Status: Acute - Assessment and Plan (Free Text) Assessment: cont iv rx and wound care monitor levels
[2018-04-13] MEDS: Magnesium Oxide 400 mg Tab UD PO SCH (17:28)
--- NOTE | 2018-04-13 19:03 | CARD ---
APPROVED REPORT Date of service: 04/11/2018 EXAM: Two-dimensional and M-mode echocardiogram with Doppler and color Doppler. Other Information Quality : AverageRhythm : NSR INDICATION Dizziness and Vertigo Chest Pain RISK FACTORS Hypertension Diabetes 2D DIMENSIONS LA [id number] (18-58mL) M-Mode DIMENSIONS Left Atrium (MM)5.70 (2.5-4.0cm)IVSd1.56 (0.7-1.1cm) Aortic Root3.48 (2.2-3.7cm)LVDd6.72 (4.0-5.6cm) Aortic Cusp Exc.1.95 (1.5-2.0cm)PWd1.44 (0.7-1.1cm) FS (%) 19 %LVDs5.43 (2.0-3.8cm) TAPSE21.84 cmLVEF (%)39 (>50%) Aortic Valve AoV Peak Jolzeyno312.0cm/Moe Peak GR.6mmHg Mitral Valve MV E Kxfpziuu825.1cm/sMV A Lnpkufes29.1cm/sE/A ratio3.8 TDI Lateral E' Peak V8.09cm/sMedial E' Peak V8.68cm/sE/Lateral E'14.5 E/Medial E'13.5 Tricuspid Valve TR Peak Nuvupaux606mj/sTR Peak Gr.19qrGsFTTQ30yrNe LEFT VENTRICLE The left ventricle is normal size. The Left Ventricle is moderately dilated. There is normal left ventricular wall thickness. The systolic function is moderately to severely impaired. The left ventricular diastolic function is normal. RIGHT VENTRICLE The right ventricle is normal size. ATRIA The left atrium is moderately dilated. The right atrium size is normal. AORTIC VALVE The aortic valve is normal in structure. MITRAL VALVE Mitral regurgitation is mild to moderate. TRICUSPID VALVE There is mild to moderate tricuspid regurgitation. <Conclusion> Moderate to severe LV systolic dysfunction. Dilated LA and LV. Mild to moderate MR. Mild to moderate TR.
--- NOTE | 2018-04-13 21:29 | CP.PCM.PN ---
Subjective - Date & Time of Evaluation Date of Evaluation: 04/13/18 Time of Evaluation: 21:27 - Subjective Subjective: This morning patient was comfortable. He was alert and awake. The wound dressing was changed today. Much improvement noted. Discharge minimally noted. No fall smelling There is evidence of MRSA in the wound noted. Patient is a PICC line today. Patient chest x-ray showing evidence of infiltrative changes, and now having cough. Sugar is stable. Liver function a stable Magnesium level is low being supplemented Patient to definitely need long-term wound. Wound management necessary. Will discuss with the patient regarding the subacute rehabilitation evaluation. Meanwhile we will continue the antibiotic and will follow the patient Objective - Vital Signs/Intake and Output Vital Signs (last 24 hours): Temp Pulse Resp BP Pulse Ox 98.2 F 86 20 116/74 100 04/13/18 15:00 04/13/18 17:59 04/13/18 15:00 04/13/18 15:00 04/13/18 15:00 Intake and Output: 04/13/18 04/14/18 18:59 06:59 Output Total 450 Balance -450 - Medications Medications: Current Medications Albuterol/Ipratropium (Duoneb 3 Mg/0.5 Mg (3 Ml) Ud) 3 ml INH RQ6 FLY Last Admin: 04/13/18 19:05 Dose: 3 ml Ascorbic Acid (Vitamin C 500 Mg Tab) 500 mg PO Q12 FLY Last Admin: 04/13/18 11:44 Dose: 500 mg Fluocinonide (Lidex 0.05% Cream) 0 gm TOP BID FLY Last Admin: 04/13/18 17:30 Dose: 1 applic Furosemide (Lasix) 40 mg IVP DAILY [facility]Y Last Admin: 04/13/18 11:45 Dose: 40 mg Piperacillin Sod/Tazobactam Sod (Zosyn 2.25 Gm Iv Premix) 2.25 gm in 50 mls @ 100 mls/hr IVPB Q6H FLY; Protocol Last Admin: 04/13/18 17:29 Dose: 100 mls/hr Vancomycin/Sodium Chloride (Vancomycin 1 Gm/Ns 200 Ml) 1 gm in 200 mls @ 133.333 mls/hr IVPB Q12H FLY; Protocol Stop: 04/17/18 12:01 Last Admin: 04/13/18 12:07 Dose: 133.333 mls/hr Lactulose (Enulose) 30 gm PO BID [facility] Last Admin: 04/13/18 17:29 Dose: 30 gm Magnesium Oxide (Mag-Ox) 400 mg PO DAILY [facility]Y Stop: 04/16/18 12:31 Last Admin: 04/13/18 17:28 Dose: 400 mg Multivitamins/Vitamin C (Multi-Delyn Liquid) 5 ml PO DAILY [facility] Last Admin: 04/13/18 11:48 Dose: 5 ml Pantoprazole Sodium (Protonix Ec Tab) 40 mg PO DAILY [facility] Last Admin: 04/13/18 11:44 Dose: 40 mg Propranolol HCl (Inderal) 10 mg PO TID [facility] Last Admin: 04/13/18 11:44 Dose: 10 mg Spironolactone (Aldactone) 25 mg PO BID [facility] Last Admin: 04/13/18 17:28 Dose: 25 mg Zinc Sulfate (Zinc Sulfate 220 Mg Cap) 220 mg PO DAILY [facility] Last Admin: 04/13/18 11:44 Dose: 220 mg - Labs Labs: 04/13/18 10:59 04/13/18 10:59 PT 19.6 SECONDS (9.7-12.2) H 04/13/18 10:59 INR 1.8 04/13/18 10:59 APTT 37 SECONDS (21-34) H D 04/13/18 10:59
[2018-04-14] MEDS: Vancomycin 1 gm/NS 200 ml 1 GM/200 ML BAG IVPB SCH ×2 (00:45→12:49)
[2018-04-14] MEDS: Albuterol-Ipratrop 3 mg / 0.5 (3 ml) UD INH SCH ×5 (01:45→19:16)
[2018-04-14] MEDS: Piperacill/Tazo 2.25gm in Dex 2.25 GM/50 ML BAG IVPB SCH ×4 (06:00→22:03)
[2018-04-14 07:24] LABS: MEAN CORPUSCULAR HEMOGLOBIN 22.5 pg (27.0-31.0); RED CELL DISTRIBUTION WIDTH 19.5 % (11.5-14.5); WHITE BLOOD COUNT 7.1 K/uL (4.8-10.8)
[2018-04-14 07:36] LABS: MEAN CELL VOLUME 72.4 fL (80.0-94.0); MEAN PLATELET VOLUME 8.3 fL (7.2-11.7); RBC 3.54 Mil/uL (4.40-5.90)
[2018-04-14 08:51] LABS: EOS # 0.3 K/uL (0.0-0.7); LYMPH # 2.3 K/uL (1.0-4.3); MONO # 0.6 K/uL (0.0-0.8)
[2018-04-14] MEDS ORDERED: Collagenase 250 Units/gm Ointment(30 gm) TOP SCH (10:00)
[2018-04-14] MEDS: Mupirocin 2% Ointment (NASAL) NAS SCH ×2 (10:13→17:27)
[2018-04-14] MEDS: Ammonium Lactate 12% Lotion (225 g) EXT SCH (10:13)
[2018-04-14] MEDS: Multiple Vitamins Oral Solution PO SCH (10:13)
[2018-04-14] MEDS: Pantoprazole 40 mg EC Tab PO SCH (10:13)
[2018-04-14] MEDS: Magnesium Oxide 400 mg Tab UD PO SCH (10:14)
[2018-04-14] MEDS ORDERED: Vancomycin 750mg/NS 150 ml 150 ML IVPB SCH ×2 (13:00)
--- NOTE | 2018-04-14 16:13 | CP.PCM.PN ---
Subjective - Date & Time of Evaluation Date of Evaluation: 04/14/18 Time of Evaluation: 08:00 - Subjective Subjective: wounds are wrapped afeb more alert Objective - Vital Signs/Intake and Output Vital Signs (last 24 hours): Temp Pulse Resp BP Pulse Ox 98.3 F 85 20 124/83 100 04/14/18 08:00 04/14/18 10:14 04/14/18 08:00 04/14/18 10:14 04/14/18 08:00 Intake and Output: 04/14/18 04/14/18 06:59 18:59 Output Total 150 Balance -150 - Medications Medications: Current Medications Albuterol/Ipratropium (Duoneb 3 Mg/0.5 Mg (3 Ml) Ud) 3 ml INH RQ6 FLY Last Admin: 04/14/18 13:50 Dose: Not Given Ascorbic Acid (Vitamin C 500 Mg Tab) 500 mg PO Q12 FLY Last Admin: 04/14/18 10:13 Dose: 500 mg Fluocinonide (Lidex 0.05% Cream) 0 gm TOP BID FLY Furosemide (Lasix) 40 mg IVP DAILY [facility]Y Last Admin: 04/14/18 10:14 Dose: 40 mg Piperacillin Sod/Tazobactam Sod (Zosyn 2.25 Gm Iv Premix) 2.25 gm in 50 mls @ 100 mls/hr IVPB Q6H FLY; Protocol Last Admin: 04/14/18 10:12 Dose: 100 mls/hr Vancomycin HCl 750 mg/ Sodium (Chloride) 250 mls @ 166.6 mls/hr IVPB Q12H FLY; Protocol Lactic Acid (Lac-Hydrin 12% Lotion (225 G)) 0 gm EXT DAILY [facility]Y Last Admin: 04/14/18 10:13 Dose: 1 appl Lactulose (Enulose) 30 gm PO BID [facility]Y Last Admin: 04/14/18 10:13 Dose: 30 gm Magnesium Oxide (Mag-Ox) 400 mg PO DAILY [facility]Y Stop: 04/16/18 12:31 Last Admin: 04/14/18 10:14 Dose: 400 mg Multivitamins/Vitamin C (Multi-Delyn Liquid) 5 ml PO DAILY [facility]Y Last Admin: 04/14/18 10:13 Dose: 5 ml Mupirocin (Bactroban 2% Nasal) 0.25 gm ORION BID FLY Stop: 04/19/18 10:01 Last Admin: 04/14/18 10:13 Dose: 0.25 gm Pantoprazole Sodium (Protonix Ec Tab) 40 mg PO DAILY [facility] Last Admin: 04/14/18 10:13 Dose: 40 mg Propranolol HCl (Inderal) 10 mg PO TID [facility] Last Admin: 04/14/18 14:31 Dose: 10 mg Spironolactone (Aldactone) 25 mg PO BID [facility] Last Admin: 04/14/18 10:13 Dose: 25 mg Zinc Sulfate (Zinc Sulfate 220 Mg Cap) 220 mg PO DAILY [facility] Last Admin: 04/14/18 10:14 Dose: 220 mg - Labs Labs: 04/14/18 07:09 04/13/18 10:59 PT 19.6 SECONDS (9.7-12.2) H 04/13/18 10:59 INR 1.8 04/13/18 10:59 APTT 37 SECONDS (21-34) H D 04/13/18 10:59 - Constitutional Appears: Non-toxic, Chronically Ill - Head Exam Head Exam: NORMOCEPHALIC - Eye Exam Eye Exam: absent: Scleral icterus - ENT Exam ENT Exam: Mucous Membranes Dry - Neck Exam Neck Exam: absent: Lymphadenopathy - Respiratory Exam Respiratory Exam: Decreased Breath Sounds - Cardiovascular Exam Cardiovascular Exam: REGULAR RHYTHM - GI/Abdominal Exam GI & Abdominal Exam: Distended - Rectal Exam Rectal Exam: Deferred - Exam Exam: NORMAL INSPECTION - Extremities Exam Extremities Exam: absent: Pedal Edema - Back Exam Back Exam: absent: CVA tenderness (L), CVA tenderness (R) Assessment and Plan (1) AA (alcohol abuse) Status: Acute (2) Abdominal pain Status: Acute (3) Cellulitis, leg Status: Acute (4) Cirrhosis Status: Acute - Assessment and Plan (Free Text) Assessment: Vanco IV adjusted dose
--- NOTE | 2018-04-14 17:14 | CARD ---
APPROVED REPORT Date of service: 04/10/2018 EKG Measurement Heart [id number] <Conclusion> Sinus tachycardia Incomplete right bundle branch block Abnormal ECG
[2018-04-15] MEDS: Albuterol-Ipratrop 3 mg / 0.5 (3 ml) UD INH SCH ×3 (01:10→13:45)
[2018-04-15] MEDS: Piperacill/Tazo 2.25gm in Dex 2.25 GM/50 ML BAG IVPB SCH ×2 (04:45→11:00)
[2018-04-15 08:48] VITALS: TEMP 98.7
[2018-04-15] MEDS: Pantoprazole 40 mg EC Tab PO SCH (11:15)
[2018-04-15] MEDS: Mupirocin 2% Ointment (NASAL) NAS SCH (11:16)
[2018-04-15] MEDS: Multiple Vitamins Oral Solution PO SCH (11:16)
[2018-04-15] MEDS: Ammonium Lactate 12% Lotion (225 g) EXT SCH (11:22)
[2018-04-15 11:27] VITALS: BP 126/84
[2018-04-15] MEDS: Magnesium Oxide 400 mg Tab UD PO SCH (11:56)
[2018-04-15] MEDS ORDERED: Influenza Vaccine 60 MCG/0.5 ML SYR (3 yr & up) IM ONE (13:12)
[2018-04-15 14:00] VITALS: PULSE 81
--- NOTE | 2018-04-15 17:33 | CP.PCM.PN ---
Subjective - Date & Time of Evaluation Date of Evaluation: 04/15/18 Time of Evaluation: 10:00 - Subjective Subjective: alert and orientedx3, denies sob or chest pains, no acute pain on the legs. Objective - Vital Signs/Intake and Output Vital Signs (last 24 hours): Temp Pulse Resp BP Pulse Ox 98.7 F 81 20 126/84 98 04/15/18 07:35 04/15/18 08:00 04/15/18 07:35 04/15/18 11:25 04/15/18 07:35 Intake and Output: 04/15/18 04/15/18 06:59 18:59 Intake Total 100 Output Total 750 Balance -650 - Labs Labs: 04/14/18 07:09 04/13/18 10:59 PT 19.6 SECONDS (9.7-12.2) H 04/13/18 10:59 INR 1.8 04/13/18 10:59 APTT 37 SECONDS (21-34) H D 04/13/18 10:59 Assessment and Plan - Assessment and Plan (Free Text) Assessment: 42 year old male with cirrhosis of liver, wound sepsis to right leg, seen and examined. Alert and orientedx3, no acute pain. Plan to discharge to [facility] for 10 days of iv vanco and wound care as per DR Edwards. Patient verbalized understanding.
--- NOTE | 2018-04-16 22:32 | CP.PCM.PN ---
Subjective - Date & Time of Evaluation Date of Evaluation: 04/12/18 Time of Evaluation: 14:05 - Subjective Subjective: Patient seen and evaluated No cardiac events and noted Review of Systems - Review of Systems All systems: reviewed and no additional remarkable complaints except (HPI) - Medications Medications: Current Medications Albuterol/Ipratropium (Duoneb 3 Mg/0.5 Mg (3 Ml) Ud) 3 ml INH RQ6 FLY Last Admin: 04/10/18 20:10 Dose: 3 ml Fluocinonide (Lidex 0.05% Cream) 0 gm TOP BID FLY Furosemide (Lasix) 40 mg IVP Q12 FLY Last Admin: 04/10/18 22:23 Dose: Not Given Furosemide (Lasix) 40 mg IVP STAT STA Stop: 04/11/18 03:11 Piperacillin Sod/Tazobactam Sod (Zosyn 2.25 Gm Iv Premix) 2.25 gm in 50 mls @ 100 mls/hr IVPB Q6H FLY; Protocol Last Admin: 04/11/18 00:05 Dose: 100 mls/hr Vancomycin HCl 500 mg/ Sodium (Chloride) 100 mls @ 100 mls/hr IVPB Q12H FLY; Protocol Last Admin: 04/10/18 18:04 Dose: Not Given Lactulose (Enulose) 20 gm PO BID [facility] Last Admin: 04/10/18 18:33 Dose: 20 gm Lactulose (Enulose) 20 gm PO Q2H FLY Stop: 04/11/18 09:16 Metoprolol Tartrate (Lopressor) 2.5 mg IVP BID FLY Ondansetron HCl (Zofran Inj) 4 mg IVP ONCE ONE Stop: 04/11/18 03:10 Pantoprazole Sodium (Protonix Inj) 40 mg IVP Q12H FLY Last Admin: 04/10/18 18:13 Dose: 40 mg Propranolol HCl (Inderal) 5 mg PO TID [facility] Last Admin: 04/10/18 18:35 Dose: 5 mg Spironolactone (Aldactone) 25 mg PO BID [facility] Last Admin: 04/10/18 18:35 Dose: 25 mg Physical Exam - Additional Findings Additional findings: * HEENT BRIANA * Neck supple * Chest Clear * CVS regular, borderline tachycardia 115/min, sinus * PA distended * Ext b/l lymphoedema, right leg full thickness chronic skin ulcers * [employer] lethargic, not oriented to place, time * skin anasarca Results - Vital Signs Recent Vital Signs: Last Vital Signs Temp 99.6 F 04/11/18 03:00 Pulse 105 H 04/11/18 02:40 Resp 18 04/11/18 02:40 BP 178/102 H 04/11/18 02:40 Pulse Ox 99 04/11/18 02:40 - Labs Result Diagrams: 04/10/18 16:20 04/10/18 16:20 Labs: Laboratory Results - last 24 hr 04/10/18 04/10/18 04/10/18 16:20 16:20 16:20 WBC 4.6 L D RBC 3.66 L Hgb 7.8 L Hct 26.2 L MCV 71.6 L D MCH 21.3 L MCHC 29.8 L RDW 19.0 H Plt Count 119 L MPV 8.2 Neut % (Auto) 35.9 L Lymph % (Auto) 48.0 H [place] % (Auto) 13.1 H Eos % (Auto) 1.7 Baso % (Auto) 1.3 Neut # (Auto) 1.6 L Lymph # (Auto) 2.2 [place] # (Auto) 0.6 Eos # (Auto) 0.1 Baso # (Auto) 0.1 Differential Comment Y PT 15.4 H INR 1.4 APTT 52 H pO2 VBG pH VBG pCO2 VBG HCO3 VBG Total CO2 VBG O2 Sat (Calc) VBG Base Excess VBG Potassium Glucose Lactate FiO2 Sodium 140 Potassium 4.0 Chloride 105 Carbon Dioxide 25 Anion Gap 15 BUN 14 Creatinine 0.8 Est GFR ( Amer) > 60 Est GFR (Non-Af Amer) > 60 Random Glucose 128 H Calcium 7.7 L Total Bilirubin 1.0 AST 76 H D ALT 26 Alkaline Phosphatase 153 H D Ammonia Total Creatine Kinase 587 H CK-MB (Mass) 4.97 H Troponin I 0.1350 H* NT-Pro-B Natriuret Pep 1820 H Total Protein 7.3 Albumin 2.8 L D Globulin 4.5 H Albumin/Globulin Ratio 0.6 L Venous Blood Potassium Stool Occult Blood Blood Type Antibody Screen 04/10/18 04/10/18 04/10/18 16:25 17:20 18:38 WBC RBC Hgb Hct MCV MCH MCHC RDW Plt Count MPV Neut % (Auto) Lymph % (Auto) [place] % (Auto) Eos % (Auto) Baso % (Auto) Neut # (Auto) Lymph # (Auto) [place] # (Auto) Eos # (Auto) Baso # (Auto) Differential Comment PT INR APTT pO2 25 L VBG pH 7.41 VBG pCO2 42 VBG HCO3 24.9 VBG Total CO2 27.9 VBG O2 Sat (Calc) 43.3 VBG Base Excess 1.7 VBG Potassium 3.7 Glucose 120 H Lactate 3.8 H FiO2 21.0 Sodium 143.0 Potassium Chloride 110.0 H Carbon Dioxide Anion Gap BUN Creatinine Est GFR ( Amer) Est GFR (Non-Af Amer) Random Glucose Calcium Total Bilirubin AST ALT Alkaline Phosphatase Ammonia Total Creatine Kinase CK-MB (Mass) Troponin I NT-Pro-B Natriuret Pep Total Protein Albumin Globulin Albumin/Globulin Ratio Venous Blood Potassium 3.7 Stool Occult Blood Positive H Blood Type AB POSITIVE Antibody Screen Negative 04/10/18 04/10/18 18:51 22:57 WBC RBC Hgb Hct MCV MCH MCHC RDW Plt Count MPV Neut % (Auto) Lymph % (Auto) [place] % (Auto) Eos % (Auto) Baso % (Auto) Neut # (Auto) Lymph # (Auto) [place] # (Auto) Eos # (Auto) Baso # (Auto) Differential Comment PT INR APTT pO2 VBG pH VBG pCO2 VBG HCO3 VBG Total CO2 VBG O2 Sat (Calc) VBG Base Excess VBG Potassium Glucose Lactate FiO2 Sodium Potassium Chloride Carbon Dioxide Anion Gap BUN Creatinine Est GFR ( Amer) Est GFR (Non-Af Amer) Random Glucose Calcium Total Bilirubin AST ALT Alkaline Phosphatase Ammonia 143 H D Total Creatine Kinase 512 H CK-MB (Mass) 4.69 H Troponin I 0.1350 H* NT-Pro-B Natriuret Pep Total Protein Albumin Globulin Albumin/Globulin Ratio Venous Blood Potassium Stool Occult Blood Blood Type Antibody Screen Assessment & Plan - Assessment and Plan (Free Text) Assessment: Elevated Troponin/Non [place] * Hepatic encephalopathy * Hyper ammonia * Hypertensive * suspected some aspiration * Anemia * h/o varices * borderline troponin likely form rhabdo * Anasarca * Lymphoedema, chronic leg ulcers * Type 2 dm * H/o alcoholism in past Plan: * Observe in icu * Aspiration precautions * npo except meds * Lctulose q2 hrs till diarrhea * PRBC ordered by primary team * Empiric abx started by primary team * accuchecks * See orders for detail. Objective - Vital Signs/Intake and Output Vital Signs (last 24 hours): Temp Pulse Resp BP Pulse Ox 98.7 F 81 20 126/84 98 04/15/18 07:35 04/15/18 08:00 04/15/18 07:35 04/15/18 11:25 04/15/18 07:35 - Labs Labs: 04/14/18 07:09 04/13/18 10:59 PT 19.6 SECONDS (9.7-12.2) H 04/13/18 10:59 INR 1.8 04/13/18 10:59 APTT 37 SECONDS (21-34) H D 04/13/18 10:59
[2018-04-19 22:48] VITALS: O2SAT 100
--- NOTE | 2018-04-23 13:32 | PN ---
DATE: 04/14/2018 TIME: 6:30 pm. SUBJECTIVE: The patient now feeling much better. Alert and awake and he is also feeling much better at this time. PHYSICAL EXAMINATION: VITAL SIGNS: Temperature 98.3, pulse 85, respirations 20, blood pressure 124/83, saturation is normal. LABORATORY DATA: The patient's labs reviewed. MEDICATIONS: The patient currently receiving DuoNeb, vitamin C, Lidex cream, Lasix 40 IV daily, Zosyn 2.25 mg every 6 hours, vancomycin 750 mg every 12 hours, Lac-Hydrin, lactulose, magnesium oxide, multivitamin, mupirocin, Protonix, propranolol 10 mg t.i.d., Aldactone 25 mg b.i.d. and zinc sulphate 220 mg. ASSESSMENT AND PLAN: Clinically stable. He will be possibly discharged to rehab tomorrow. I advised the patient to go to long-term [facility] for possibly receiving hyperbaric oxygen and wound care and intravenous antibiotics. The patient also has now PICC line. Damaris Edwards MD
--- NOTE | 2018-04-24 02:37 | DS ---
HISTORY: This is a 42-year-old male with a history of liver disease, diabetes, psoriasis, psoriatic arthritis, recurrent sepsis, multiple skin infections, acholic liver disease, liver cirrhosis and GI bleed. The patient admitted to the hospital because of the worsening bilateral leg swelling and also significant skin damage of the right lower extremity noted with multiple ulcers and oozing and foul-smelling discharge noted, The patient upon admission was having severe high temperature, he was tachypneic, tachycardic and also tachycardia noted. Upon admission, the patient had diffuse edema, abdominal swelling, and also right leg occupying the right lower extremity surrounding the circumferential skin damage noted, and there are significant skin ulcers exposing the deep tissues associated with slough of grayish yellowish discharge noted. Labs noted. WBC 6.5, hemoglobin 8.7. Renal functions are normal. The patient initially admitted to the hospital with acute sepsis, infected right leg ulcers, and psoriatic skin lesions. For meanwhile, the patient started receiving antibiotics and IV fluids and closely monitored. The patient was hospitalized following that. Because of the worsening condition, the patient was initially admitted to the intensive care unit for observation closely. The patient also was started on antibiotics and received blood transfusion, closely monitored. Infection disease evaluation was called in. Blood cultures are negative, but wound culture showing evidence of MRSA sepsis. PICC line was done. The patient needed to continue to receive antibiotics for 10 more days of vancomycin and wound management. I discussed with the patient, and he has agreed to going to LTAC for further management. We will closely monitor and will follow up the patient. Damaris Edwards MD
== END 2018-04-15 16:45 | DRG 871 ==
LOC: C.ER 14:37 → C.9E 17:19 → C.9I 04-11 01:59 → C.6T 04-12 02:15
PROVIDERS: ADMIT Internal Medicine; ATTEND Internal Medicine
PROC: 30233N1 Transfusion of Nonautologous Red Blood Cells into Peripheral Vein, Percutaneous Approach (ICD-10-PCS; principal; 2018-04-10)
PROC: 02HV33Z Insertion of Infusion Device into Superior Vena Cava, Percutaneous Approach (ICD-10-PCS; 2018-04-13)
DX: A41.9 Sepsis, unspecified organism (principal); J18.9 Pneumonia, unspecified organism; L97.919 Non-pressure chronic ulcer of unspecified part of right lower leg with unspecified severity; L03.116 Cellulitis of left lower limb; L03.115 Cellulitis of right lower limb; M62.82 Rhabdomyolysis; K70.30 Alcoholic cirrhosis of liver without ascites; K72.90 Hepatic failure, unspecified without coma; E11.622 Type 2 diabetes mellitus with other skin ulcer; F10.20 Alcohol dependence, uncomplicated; I89.0 Lymphedema, not elsewhere classified; J45.909 Unspecified asthma, uncomplicated; B34.9 Viral infection, unspecified; D50.9 Iron deficiency anemia, unspecified; I11.0 Hypertensive heart disease with heart failure; I50.9 Heart failure, unspecified; I87.8 Other specified disorders of veins; L40.50 Arthropathic psoriasis, unspecified; M06.9 Rheumatoid arthritis, unspecified

== ENCOUNTER 2018-05-05 14:35 | Inpatient (IN) | payer MEDICARE ==
[2018-05-05 14:36] VITALS: BMI 29.8
--- NOTE | 2018-05-05 15:45 | C.PDOC ---
History Of Present Illness 42 y/o male with history of asthma presents to ED with c/o discharge from right lower foot wound for 1 week. Patient also c/o chest pain described as squeezing since last night, diarrhea since yesterday described as loose stool and has been on antibiotics recently. Patient also c/o dry cough and sore throat for 2-3 days, took Nyquil today x2 times and Advil with minimal relief to sore throat. Patient reports painful lump above belly button for 1 week and currently denies fever, chills, nausea, vomiting or any other complaints at this time. Time Seen by Provider: 05/05/18 14:49 Chief Complaint (Nursing): GI Problem History Per: Patient History/Exam Limitations: no limitations Onset/Duration Of Symptoms: Days Current Symptoms Are (Timing): Still Present Past Medical History Reviewed: Historical Data, Nursing Documentation, Vital Signs Vital Signs: Last Vital Signs Temp 98.9 F 05/05/18 14:54 Pulse 130 H 05/05/18 14:54 Resp 16 05/05/18 14:54 BP 157/94 H 05/05/18 14:54 Pulse Ox 99 05/05/18 14:54 - Medical History PMH: Anemia, Anxiety, Arthritis (psoriatic arthritis; b/l elb; fingers), Asthma, CHF, Depression, Diabetes, Gastrointestinal Ulcer, HTN, Hypercholesterolemia, Pneumonia (3 years ago), Rheumatoid Arthritis, Seizures (etoh induced) Surgical History: Endoscopy - [facility] Procedures ALCOHOL DETOXIFICATION (05/28/13) CENTRAL VENOUS CATHETER PLACEMENT WITH GUIDANCE (01/31/14) CYSTOSCOPY NEC (06/08/13) DETOXIFICATION SERVICES FOR SUBSTANCE ABUSE TREATMENT (08/14/15) DRAINAGE OF PERITONEAL CAVITY, PERCUTANEOUS APPROACH (02/01/18) DRAINAGE OF RIGHT LOWER LEG SKIN, EXTERNAL APPROACH (10/15/17) EXCISION OF ASCENDING COLON, ENDO, DIAGN (10/29/15) EXCISION OF STOMACH, ENDO, DIAGN (10/29/15) GROUP PSYCHOTHERAPY (04/21/16) INSERTION OF INFUSION DEV INTO SUP VENA CAVA, PERC APPROACH (04/10/18) INSPECTION OF UPPER INTESTINAL TRACT, ENDO (08/03/17) OTHER ENDOSCOPY OF SM INTEST (01/31/14) PACKED CELL TRANSFUSION (01/31/14) RETROGRADE PYELOGRAM (06/08/13) TRANSFUSE NONAUT FRESH PLASMA IN PERIPH VEIN, PERC (08/03/17) TRANSFUSE NONAUT FROZEN PLASMA IN PERIPH VEIN, PERC (05/06/15) TRANSFUSE NONAUT RED BLOOD CELLS IN PERIPH VEIN, PERC (04/10/18) ULTRASONOGRAPHY OF LOWER EXTREMITY CONNECTIVE TISSUE (10/15/17) ULTRASONOGRAPHY OF SUPERIOR VENA CAVA, GUIDANCE (09/08/17) Family History: States: Diabetes (Father) - Social History Hx Tobacco Use: No Hx Alcohol Use: Yes Hx Substance Use: No - Immunization History Hx Tetanus Toxoid Vaccination: Yes Hx Influenza Vaccination: Yes Hx Pneumococcal Vaccination: Yes Review Of Systems Except As Marked, All Systems Reviewed And Found Negative. ENT: Positive for: Throat Pain Cardiovascular: Positive for: Chest Pain Respiratory: Positive for: Cough Gastrointestinal: Positive for: Diarrhea Physical Exam - Physical Exam Additional Physical Exam Comments: Gen: VS reviewed, alert, well developed, nontoxic, mild distress, Mild to moderate tremors. edematous consistent with anasarca Eye: EOMI, PERRL HENNT: Dry mucous membranes, No throat erythema or exudates. Uvula midline Neck: no JVD, supple, no adenopathy CV: Tachycardic, regular rhythm, no rubs,no murmur, S1, S2 Pulm: Crackles at lung bases, no wheeze, no rhonchi, breath sounds equal Abd: soft, no guarding, no rebound, no rigidity. focal large nodule to superior aspect of umbilicus does not protrude with valsalva Ext: chronic edema to bilateral extremities. 2 large open wounds to posterior right leg with foul odor with clear discharge from wound. Skin: good color, no rash, no cyanosis Psych: responds appropriately to questions, normal affect Neuro: oriented x3, CN2-12 intact grossly, motor intact, sensation intact ED Course And Treatment - Laboratory Results Result Diagrams: 05/05/18 15:57 05/05/18 15:57 O2 Sat by Pulse Oximetry: 99 (RA) Pulse Ox Interpretation: Normal - Other Rad CXR X-Ray: Viewed By Me, Read By Radiologist Interpretation: IMPRESSION: Interval improvement in congestive heart failure. Residual haziness in the right lower lobe may represent residual pulmonary edema however pneumonia cannot be excluded. Follow-up to resolution is advised. - CT Scan/US CT abd/pelvis Other Rad Studies (CT/US): Read By Radiologist, Radiology Report Reviewed CT/US Interpretation: IMPRESSION: Fluid-filled mildly dilated mid and distal small bowel loops and apparent mild mural thickening in the colon may represent nonspecific enterocolitis. Cirrhosis of liver, mild abdominal and moderate pelvic ascites. Recanalization of the umbilical vein. Severe diffuse anasarca. Critical Care Time - Critical Care Note Total Time (in mins): 35 Comments: critical care for critical illness, complex medical decision making and coordination of care. Documented critical care: time excludes all time spent performing seperately billable procedures. Medical Decision Making Medical Decision Makin: code sepsis, called empiric antobiotics ordered, suspected source of infection from legs or intra-abdominal source. ivf ordered however the patient is already in a fluid overload state and IVF beyond I liter may be detrimental to clinical course 1507: ekg my read: sinus tachycardia at 138 bpm, nml qrs, artifact, inferior infarct, nonspecific t wave abn 1750: admit accepted by dr. soto, patient to be admitted for sepsis, presumed source of lower leg cellulitis. Case discussed with Dr. Hahn, skiver blockers, will come to ED for eval. At this time, the patient is complaining of shortness of breath and is clinically fluid overloaded with an elevated bnp, will initiated bipap. Patient's tachycardia is initially presumed to be from alcohol withdrawal, will continue to monitor. 1830: i was just called to the bedside as the patient was witnessed to have generalized convulsions and loss of consciousness. patient was taken off bipap by myself, placed on NRB mask, given 2mg ativan and seizure activity stopped. at this time, dr. hahn the skiver blockers in the ED for re-eval and he has assumed control of the case. the patient is postictal at this time, is breathing spontaneously and regularly, vitals ok. i have discussed the possibility of intubating the patient but as per dr. hahn he would like to avoid that for now. Disposition - Disposition Disposition: HOSPITALIZED Disposition Time: 17:50 Condition: CRITICAL - Clinical Impression Clinical Impression: Sepsis - Scribe Statement The provider has reviewed the documentation as recorded by the Nikole Mendez All medical record entries made by the Rayneibradha were at my direction and personally dictated by me. I have reviewed the chart and agree that the record accurately reflects my personal performance of the history, physical exam, medical decision making, and the department course for this patient. I have also personally directed, reviewed, and agree with the discharge instructions and disposition.
[2018-05-05 16:03] LABS: VENOUS BLOOD GAS BASE EXCESS -6.5 mmol/L (0.0-2.0); VENOUS BLOOD GAS PCO2 25 mmHg (40-60); VENOUS BLOOD GAS PO2 42 mm/Hg (30-55); VENOUS BLOOD PH 7.42 (7.32-7.43)
[2018-05-05 16:05] LABS: BASO % 0.2 % (0.0-2.0); HEMOGLOBIN 9.1 g/dL (12.0-18.0); LYMPH # 0.5 K/uL (1.0-4.3); LYMPH % 2.1 % (20.0-40.0); MEAN CELL VOLUME 73.8 fL (80.0-94.0); MEAN CORPUSCULAR HEMOGLOBIN 22.6 pg (27.0-31.0); MEAN CORPUSCULAR HGB CONC 30.6 g/dL (33.0-37.0); MEAN PLATELET VOLUME 8.4 fL (7.2-11.7); MONO # 0.8 K/uL (0.0-0.8); MONO % 3.9 % (0.0-10.0); NEUT # 20.2 K/uL (1.8-7.0); NEUT % 93.8 % (50.0-75.0); RBC 4.02 Mil/uL (4.40-5.90); RED CELL DISTRIBUTION WIDTH 22.8 % (11.5-14.5)
[2018-05-05 16:09] LABS: PLATELET COUNT 56 K/uL (130-400); WHITE BLOOD COUNT 21.5 K/uL (4.8-10.8)
[2018-05-05] MEDS ORDERED: Piperacillin/Tazobact 3.375 GM in Sodium Chloride 100 ML IVPB STA (16:11)
[2018-05-05] MEDS ORDERED: Vancomycin 500 mg Inj IVPB STA (16:12)
[2018-05-05 16:14] LABS: ALB/GLOB RATIO 0.7 (1.0-2.1); ALBUMIN 2.8 g/dL (3.5-5.0); ALT/SGPT 34 U/L (21-72); AST/SGOT 86 U/L (17-59); BLOOD UREA NITROGEN 11 mg/dL (9-20); CALCIUM 7.8 mg/dl (8.6-10.4); GFR NON-AFRICAN AMERICAN > 60; LIPASE 229 U/L (23-300)
[2018-05-05 16:15] LABS: INR 1.4; PROTHROMBIN TIME 15.8 SECONDS (9.7-12.2)
[2018-05-05] MEDS ORDERED: Sodium Chloride 0.9% 1,000 ML IV ONE (16:17)
[2018-05-05] MEDS ORDERED: Piperacillin/Tazobact 3.375 gm 100 ML IVPB ONE (16:21)
[2018-05-05 16:30] LABS: B-TYPE NATRIURETIC PEPTIDE 5130 pg/mL (0-450)
[2018-05-05 16:31] LABS: BANDS 17 % (0-2); LYMPHOCYTE 1 % (20-40); MONOCYTE 3 % (0-10); NEUTROPHIL 79 % (50-75); TOTAL CELLS COUNTED 100
[2018-05-05 16:32] LABS: ANISOCYTOSIS SLIGHT; HYPOCHROMIC SLIGHT; PLATELET ESTIMATE DECREASED (NORMAL); POIKILOCYTOSIS SLIGHT
[2018-05-05 16:33] LABS: BURR CELLS SLIGHT; OVALOCYTES SLIGHT; TARGET CELLS SLIGHT
--- NOTE | 2018-05-05 16:33 | RAD ---
Date of service: 05/05/2018 HISTORY: chest pain, chf COMPARISON: 04/13/2018 FINDINGS: LUNGS: The lungs are well inflated. There is interval significant improved aeration in the lungs. There is mild haziness in the right lower lobe. PLEURA: No pleural effusions or pneumothorax. CARDIOVASCULAR: Persistent moderate cardiomegaly. Atherosclerotic aortic arch calcifications are present. OSSEOUS STRUCTURES: Within normal limits for the patient's age. VISUALIZED UPPER ABDOMEN: Normal. OTHER FINDINGS: None. IMPRESSION: Interval improvement in congestive heart failure. Residual haziness in the right lower lobe may represent residual pulmonary edema however pneumonia cannot be excluded. Follow-up to resolution is advised.
[2018-05-05] MEDS ORDERED: Iodixanol 320 MG/ML 100 ML BOTTLE IV ONE (17:02)
[2018-05-05 17:50] LABS: VENOUS BLOOD GAS BASE EXCESS -3.9 mmol/L (0.0-2.0); VENOUS BLOOD GAS PCO2 30 mmHg (40-60); VENOUS BLOOD GAS PO2 22 mm/Hg (30-55); VENOUS BLOOD PH 7.42 (7.32-7.43)
--- NOTE | 2018-05-05 17:50 | CT ---
Date of service: 05/05/2018 PROCEDURE: CT Abdomen and Pelvis with contrast HISTORY: perimumbilical pain, ?hernia COMPARISON: 04/11/2018. TECHNIQUE: CT scan of the abdomen and pelvis was performed after administration of intravenous contrast. Oral contrast was not administered. Coronal and sagittal reformatted images were obtained. Contrast dose: 100 mL Visipaque 320 Radiation dose: Total exam DLP = 1174.44 mGy-cm. This CT exam was performed using one or more of the following dose reduction techniques: Automated exposure control, adjustment of the mA and/or kV according to patient size, and/or use of iterative reconstruction technique. FINDINGS: LOWER THORAX: The visualized lungs are clear. There is moderate cardiomegaly. LIVER: Hepatic steatosis and cirrhosis. No gross lesion or ductal dilatation. GALLBLADDER AND BILE DUCTS: Contracted. Small gallstones. PANCREAS: Normal in size with homogeneous enhancement. No gross lesion or ductal dilatation. SPLEEN: Mild splenomegaly. Homogeneous enhancement ADRENALS: No discrete nodule. KIDNEYS AND URETERS: Normal in size with homogeneous enhancement. No hydronephrosis. No solid mass. VASCULATURE: No aortic aneurysm. There recanalization of the umbilical vein. BOWEL: Evaluation of the bowel is limited in the absence of oral contrast. There are fluid-filled mildly dilated mid and distal small bowel loops. There is apparent mild mural thickening in the colon. No bowel dilatation or obstruction. APPENDIX: Normal appendix. PERITONEUM: Mild abdominal and moderate pelvic ascites. No free air. LYMPH NODES: No enlarged lymph nodes. BLADDER: Partially decompressed. REPRODUCTIVE: The prostate gland is normal in size with central coarse calcifications. BONES: No acute fracture. Within normal limits for the patient's age. OTHER FINDINGS: There is severe diffuse anasarca. IMPRESSION: Fluid-filled mildly dilated mid and distal small bowel loops and apparent mild mural thickening in the colon may represent nonspecific enterocolitis. Cirrhosis of liver, mild abdominal and moderate pelvic ascites. Recanalization of the umbilical vein. Severe diffuse anasarca.
[2018-05-05] MEDS ORDERED: Valproate 1,500 MG in Sodium Chloride 0.9% 100 ML IVPB ONE (18:33)
[2018-05-05] MEDS ORDERED: Dexmedetomidine Hydrochloride 200 MCG in Sodium Chloride 0.9% 48 ML IV PRN (18:34)
--- NOTE | 2018-05-05 19:25 | CP.PCM.CON ---
<Noah Foreman - Last Filed: 05/05/18 20:12> History of Present Illness - History of Present Illness History of Present Illness: PGY-1 ICU Consult note for Dr. Oral Lind CC: Right leg infection, melena, and anasarca 42 y/o male with history of asthma, HTN, and DM-2 presenting with discharge from right lower foot wound for 1 week. Mother present at bedside. Patient sedated, history obtained from mother. She states that patient has been having bloody diarrhea for the past week. Patient also c/o dry cough and sore throat for 2-3 days, took Nyquil today x2 times and Advil with minimal relief to sore throat. In ED, patient was a code sepsis. Patient admitted to ICU for sepsis and respira tory distress. 12 ROS reviewed and unable to obtain due to patient being sedated. PMHx: Asthma, HTN, DM-2 PSHx: history of endoscopy/colonoscopy for GI bleed Allergies: NKDA Family hx: Father: history of heart transplant; Mother: hypertension/diabetes Social Hx: Daily alcohol consumption (~1pint of vodka per day), denies illicit drug use and former tobacco use Endoscopy hx: Endoscopy/Colonoscopy completed in 10/2015 - revealed grade 1 esophageal varices, LA Grade B Esophagitis, internal hemorrhoids, edema of the ascending colon Review of Systems - Review of Systems Systems not reviewed;Unavailable: Other (sedated) Past Patient History - Infectious Disease Hx of Infectious Diseases: None - Past Medical History & Family History Past Medical History?: Yes - Past Social History Smoking Status: Never Smoked - CARDIAC Hx Congestive Heart Failure: Yes Hx Hypercholesterolemia: Yes Hx Hypertension: Yes - PULMONARY Hx Asthma: Yes Hx Pneumonia: Yes (3 years ago) - NEUROLOGICAL Hx Seizures: Yes (etoh induced) - HEENT Hx HEENT Problems: Yes Other/Comment: eye glasses for reading - RENAL Hx Chronic Kidney Disease: No - ENDOCRINE/METABOLIC Hx Endocrine Disorders: Yes Hx Diabetes Mellitus Type 2: Yes - HEMATOLOGICAL/ONCOLOGICAL Hx Anemia: Yes - INTEGUMENTARY Hx Dermatological Problems: Yes Hx Psoriasis: Yes Other/Comment: Psoriatic Arthritis - MUSCULOSKELETAL/RHEUMATOLOGICAL Hx Arthritis: Yes (psoriatic arthritis; b/l elb; fingers) Hx Rheumatoid Arthritis: Yes - GASTROINTESTINAL Hx Gastrointestinal Disorders: Yes Other/Comment: Liver disease - GENITOURINARY/GYNECOLOGICAL Hx Sexually Transmitted Disorders: No - PSYCHIATRIC Hx Anxiety: Yes Hx Depression: Yes Hx Substance Use: No - SURGICAL HISTORY Hx Surgeries: Yes Hx Orthopedic Surgery: Yes (rt. knee swelling) - ANESTHESIA Hx Anesthesia: Yes Hx Anesthesia Reactions: No Hx Malignant Hyperthermia: No Meds Allergies/Adverse Reactions: Allergies Allergy/AdvReac Type Severity Reaction Status Date / Time No Known Allergies Allergy Verified 04/10/18 14:55 - Medications Medications: Current Medications Vancomycin HCl 1,250 mg/ (Sodium Chloride) 250 mls @ 166 mls/hr IVPB ONCE ONE Stop: 05/05/18 19:30 Last Admin: 05/05/18 18:02 Dose: 166 mls/hr Dexmedetomidine HCl 200 mcg/ (Sodium Chloride) 50 mls @ 4.99 mls/hr IV TITR PRN; Protocol PRN Reason: Agitation Physical Exam - Constitutional Additional comments: edematous consistent with anasarca - Head Exam Head Exam: ATRAUMATIC, NORMOCEPHALIC - Eye Exam Eye Exam: EOMI, Normal appearance - ENT Exam ENT Exam: Mucous Membranes Dry - Respiratory Exam Respiratory Exam: absent: Accessory Muscle Use, Clear to Auscultation Bilateral, Rales, Rhonchi, Wheezes Additional comments: Crackles heard bilaterally. Patient on BIPAP - Cardiovascular Exam Cardiovascular Exam: Tachycardia, +S1, +S2. absent: Gallop, Rubs, Systolic Murmur - GI/Abdominal Exam GI & Abdominal Exam: Normal Bowel Sounds, Soft. absent: Distended - Extremities Exam Extremities exam: Negative for: normal inspection Additional comments: edema to bilateral extremities. 2 large open wounds to posterior right leg with foul odor with clear discharge from wound. - Neurological Exam Additional comments: Patient sedated - Skin Additional comments: edema to bilateral extremities. 2 large open wounds to posterior right leg with foul odor with clear discharge from wound. Results - Vital Signs Recent Vital Signs: Last Vital Signs Temp 98.7 F 05/05/18 17:42 Pulse 135 H 05/05/18 18:43 Resp 16 05/05/18 17:50 BP 167/89 H 05/05/18 18:43 Pulse Ox 99 05/05/18 18:37 - Labs Result Diagrams: 05/05/18 15:57 05/05/18 15:57 Labs: Laboratory Results - last 24 hr 05/05/18 05/05/18 05/05/18 14:47 15:57 15:57 WBC 21.5 H D RBC 4.02 L Hgb 9.1 L Hct 29.6 L MCV 73.8 L MCH 22.6 L MCHC 30.6 L RDW 22.8 H Plt Count 56 L D MPV 8.4 Neut % (Auto) 93.8 H Lymph % (Auto) 2.1 L Cassia % (Auto) 3.9 Eos % (Auto) 0.0 Baso % (Auto) 0.2 Neut # (Auto) 20.2 H Lymph # (Auto) 0.5 L Cassia # (Auto) 0.8 Eos # (Auto) 0.0 Baso # (Auto) 0.0 Neutrophils % (Manual) 79 H Band Neutrophils % 17 H* Lymphocytes % (Manual) 1 L Monocytes % (Manual) 3 Platelet Estimate Decreased L Hypochromasia (manual) Slight Poikilocytosis (manual Slight Anisocytosis (manual) Slight Target Cells Slight Ovalocytes Slight Pepe Cells Slight PT INR APTT pO2 VBG pH VBG pCO2 VBG HCO3 VBG Total CO2 VBG O2 Sat (Calc) VBG Base Excess VBG Potassium Glucose Lactate Crit Value Called To Crit Value Called By Crit Value Read Back Blood Gas Notified Time Sodium 140 Potassium 4.1 Chloride 107 Carbon Dioxide 18 L Anion Gap 19 BUN 11 Creatinine 0.8 Est GFR ( Amer) > 60 Est GFR (Non-Af Amer) > 60 POC Glucose (mg/dL) 135 H Random Glucose 120 H Calcium 7.8 L Phosphorus 4.5 Magnesium 1.4 L Total Bilirubin 1.6 H AST 86 H D ALT 34 Alkaline Phosphatase 135 H D Total Creatine Kinase 710 H Troponin I 0.1340 H* NT-Pro-B Natriuret Pep 5130 H Total Protein 7.1 Albumin 2.8 L Globulin 4.3 H Albumin/Globulin Ratio 0.7 L Lipase 229 Venous Blood Potassium Alcohol, Quantitative 52 H Blood Type Antibody Screen 05/05/18 05/05/18 05/05/18 15:57 16:00 17:45 WBC RBC Hgb Hct MCV MCH MCHC RDW Plt Count MPV Neut % (Auto) Lymph % (Auto) Cassia % (Auto) Eos % (Auto) Baso % (Auto) Neut # (Auto) Lymph # (Auto) Cassia # (Auto) Eos # (Auto) Baso # (Auto) Neutrophils % (Manual) Band Neutrophils % Lymphocytes % (Manual) Monocytes % (Manual) Platelet Estimate Hypochromasia (manual) Poikilocytosis (manual Anisocytosis (manual) Target Cells Ovalocytes Pepe Cells PT 15.8 H INR 1.4 APTT 37 H pO2 42 VBG pH 7.42 VBG pCO2 25 L VBG HCO3 19.3 VBG Total CO2 17.0 L VBG O2 Sat (Calc) 77.2 H VBG Base Excess -6.5 L VBG Potassium 4.0 Glucose 110 Lactate 6.5 H* Crit Value Called To Dr. alexandra Crit Value Called By Jasvir johnston Crit Value Read Back Y Blood Gas Notified Time 1603 Sodium 143.0 Potassium Chloride 113.0 H Carbon Dioxide Anion Gap BUN Creatinine Est GFR ( Amer) Est GFR (Non-Af Amer) POC Glucose (mg/dL) Random Glucose Calcium Phosphorus Magnesium Total Bilirubin AST ALT Alkaline Phosphatase Total Creatine Kinase Troponin I NT-Pro-B Natriuret Pep Total Protein Albumin Globulin Albumin/Globulin Ratio Lipase Venous Blood Potassium 4.0 Alcohol, Quantitative Blood Type AB POSITIVE Antibody Screen Negative 05/05/18 17:47 WBC RBC Hgb Hct MCV MCH MCHC RDW Plt Count MPV Neut % (Auto) Lymph % (Auto) Cassia % (Auto) Eos % (Auto) Baso % (Auto) Neut # (Auto) Lymph # (Auto) Cassia # (Auto) Eos # (Auto) Baso # (Auto) Neutrophils % (Manual) Band Neutrophils % Lymphocytes % (Manual) Monocytes % (Manual) Platelet Estimate Hypochromasia (manual) Poikilocytosis (manual Anisocytosis (manual) Target Cells Ovalocytes [place] Cells PT INR APTT pO2 22 L VBG pH 7.42 VBG pCO2 30 L VBG HCO3 20.3 VBG Total CO2 20.4 L VBG O2 Sat (Calc) 34.1 L VBG Base Excess -3.9 L VBG Potassium 4.0 Glucose 102 Lactate 6.4 H* Crit Value Called To Dr alexandra Crit Value Called By Jasvir johnston Crit Value Read Back Y Blood Gas Notified Time 1750 Sodium 142.0 Potassium Chloride 110.0 H Carbon Dioxide Anion Gap BUN Creatinine Est GFR ( Amer) Est GFR (Non-Af Amer) POC Glucose (mg/dL) Random Glucose Calcium Phosphorus Magnesium Total Bilirubin AST ALT Alkaline Phosphatase Total Creatine Kinase Troponin I NT-Pro-B Natriuret Pep Total Protein Albumin Globulin Albumin/Globulin Ratio Lipase Venous Blood Potassium 4.0 Alcohol, Quantitative Blood Type Antibody Screen Assessment & Plan - Assessment and Plan (Free Text) Assessment: 42 y/o male with history of asthma, HTN, and DM-2 presenting with right leg infection, melena, and anasarca. In ED, patient was a code sepsis. Patient admitted to ICU for sepsis and respiratory distress. Plan: Neuro: Alcohol withdrawal symptoms - Patient sedated on Precedex - In ED 4mg Ativan given - Blood alcohol: 52 - Narcan 0.4mg IV once - UDS: f/u Cardiovascular: - No acute issues Pulm: Respiratory distress - CXR: Interval improvement in congestive heart failure. Residual haziness in the right lower lobe may represent residual pulmonary edema however pneumonia cannot be excluded. Follow-up to resolution is advised. - Patient intubated on PRVC - VBG: pO2 22, pCO2 30 pH 7.42 - ABG: f/u Possible PNA - CXR: Interval improvement in congestive heart failure. Residual haziness in the right lower lobe may represent residual pulmonary edema however pneumonia cannot be excluded. Follow-up to resolution is advised. - Zosyn 3.375g IV Q6 (Started on 05/05) - Sputum cx: f/u GI: Possible colitis - CT Abd (05/05): Fluid-filled mildly dilated mid and distal small bowel loops and apparent mild mural thickening in the colon may represent nonspecific enterocolitis. Cirrhosis of liver, mild abdominal and moderate pelvic ascites. Recanalization of the umbilical vein. Severe diffuse anasarca. Hx of hepatic encephalopathy - Ammonia level: f/u GI bleed - Protonix IV 40mg QD - Monitor Hb/Hct Transaminitis: - Likely 2/2 to alcohol abuse - ALT/AST: 34/86 - Continue to monitor Renal: - No acute issues Heme: Normocytic anemia - Hb/Hct: 9.1/29.6 - MCV: 73.8 - Continue to monitor ID: Sepsis - Patient was code sepsis in ED - Likely 2/2 leg wound - WBC: 21.5 - Bands: 17 - Lactate 6.4 - Patient afebrile - Zosyn 3.375g IV Q6 (Started on 05/05) - Blood cx: f/u - Urine cx f/u - Wound cx: f/u - Sputum cx: f/u - C. diff: f/u Right leg wound - Wound cx: f/u - Zosyn 3.375g IV Q6 (Started on 05/05) - Vancomycin and Zosyn given in ED Prophylaxis: - Protonix IV 40mg QD - VTE contraindicated 2/2 GI bleed - SCD contraindicated 2/2 leg wounds Case discussed with Dr. Oral Foreman, PGY-1 <Lian Lind - Last Filed: 05/06/18 16:51> Meds - Medications Medications: Current Medications Albuterol/Ipratropium (Duoneb 3 Mg/0.5 Mg (3 Ml) Ud) 3 ml INH RQ6 FLY Last Admin: 05/06/18 13:14 Dose: 3 ml Furosemide (Lasix) 20 mg PO DAILY FLY Last Admin: 05/06/18 11:30 Dose: 20 mg Piperacillin Sod/Tazobactam (Sod 3.375 gm/ Sodium Chloride) 100 mls @ 200 mls/hr IVPB Q6H FLY; Protocol Last Admin: 05/06/18 08:00 Dose: 200 mls/hr Vancomycin/Sodium Chloride (Vancomycin 1 Gm/Ns 200 Ml) 1 gm in 200 mls @ 133 mls/hr IVPB Q12H FLY; Protocol Stop: 05/10/18 20:31 Last Admin: 05/06/18 08:30 Dose: 133 mls/hr Dexmedetomidine HCl 200 mcg/ (Sodium Chloride) 50 mls @ 4.99 mls/hr IV TITR PRN; Protocol PRN Reason: Agitation Last Admin: 05/06/18 05:35 Dose: 0.22 mcg/kg/hr, 5.49 mls/hr Lactulose (Enulose) 20 gm PO Q12 FLY Last Admin: 05/06/18 09:10 Dose: 20 gm Methylprednisolone (Solu-Medrol) 40 mg IVP Q12 FLY Stop: 05/08/18 22:01 Pantoprazole Sodium (Protonix Inj) 40 mg IVP Q12 FLY Last Admin: 05/06/18 09:10 Dose: 40 mg Phytonadione (Vitamin K Tab) 10 mg PO DAILY FLY Last Admin: 05/06/18 11:30 Dose: 10 mg Results - Vital Signs Recent Vital Signs: Last Vital Signs Temp 98.4 F 05/06/18 12:00 Pulse 85 05/06/18 13:00 Resp 21 05/06/18 13:00 BP 139/86 05/06/18 12:49 Pulse Ox 100 05/06/18 13:00 - Labs Result Diagrams: 05/06/18 06:26 05/06/18 06:22 Labs: Laboratory Results - last 24 hr 05/05/18 05/05/18 05/05/18 15:57 15:57 15:57 WBC 21.5 H D RBC 4.02 L Hgb 9.1 L Hct 29.6 L MCV 73.8 L MCH 22.6 L MCHC 30.6 L RDW 22.8 H Plt Count 56 L D MPV 8.4 Neut % (Auto) 93.8 H Lymph % (Auto) 2.1 L Cassia % (Auto) 3.9 Eos % (Auto) 0.0 Baso % (Auto) 0.2 Neut # (Auto) 20.2 H Lymph # (Auto) 0.5 L Cassia # (Auto) 0.8 Eos # (Auto) 0.0 Baso # (Auto) 0.0 Neutrophils % (Manual) 79 H Band Neutrophils % 17 H* Lymphocytes % (Manual) 1 L Monocytes % (Manual) 3 Nucleated RBC % Differential Comment Platelet Estimate Decreased L Polychromasia Hypochromasia (manual) Slight Poikilocytosis (manual Slight Anisocytosis (manual) Slight Microcytosis (manual) Target Cells Slight Ovalocytes Slight [place] Cells Slight PT 15.8 H INR 1.4 APTT 37 H Puncture Site pCO2 pO2 HCO3 ABG pH ABG Total CO2 ABG O2 Saturation ABG Base Excess ABG Hemoglobin ABG Carboxyhemoglobin POC ABG HHb (Measured) ABG Methemoglobin Jeff Test ABG Potassium VBG pH VBG pCO2 VBG HCO3 VBG Total CO2 VBG O2 Sat (Calc) VBG Base Excess VBG Potassium A-a O2 Difference Respiratory Index Hgb O2 Saturation Glucose Lactate Vent Mode Mechanical Rate FiO2 Tidal Volume PEEP Crit Value Called To Crit Value Called By Crit Value Read Back Blood Gas Notified Time Sodium 140 Potassium 4.1 Chloride 107 Carbon Dioxide 18 L Anion Gap 19 BUN 11 Creatinine 0.8 Est GFR ( Amer) > 60 Est GFR (Non-Af Amer) > 60 POC Glucose (mg/dL) Random Glucose 120 H Lactic Acid Calcium 7.8 L Phosphorus 4.5 Magnesium 1.4 L Total Bilirubin 1.6 H AST 86 H D ALT 34 Alkaline Phosphatase 135 H D Ammonia Total Creatine Kinase 710 H CK-MB (Mass) Troponin I 0.1340 H* NT-Pro-B Natriuret Pep 5130 H Total Protein 7.1 Albumin 2.8 L Globulin 4.3 H Albumin/Globulin Ratio 0.7 L Lipase 229 Arterial Blood Potassium Venous Blood Potassium Urine Color Urine Clarity Urine pH Ur Specific [place] Urine Protein Urine Glucose (UA) Urine Ketones Urine Blood Urine Nitrate Urine Bilirubin Urine Urobilinogen Ur Leukocyte Esterase Urine WBC (Auto) Urine RBC (Auto) Ur Squamous Epith Cells Urine Yeast (Budding) Urine Opiates Screen Urine Methadone Screen Ur Barbiturates Screen Ur Phencyclidine Scrn Ur Amphetamines Screen U Benzodiazepines Scrn U Oth Cocaine Metabols U Cannabinoids Screen Alcohol, Quantitative 52 H C. difficile Ag & Toxin Blood Type Antibody Screen 05/05/18 05/05/18 05/05/18 16:00 17:45 17:47 WBC RBC Hgb Hct MCV MCH MCHC RDW Plt Count MPV Neut % (Auto) Lymph % (Auto) Cassia % (Auto) Eos % (Auto) Baso % (Auto) Neut # (Auto) Lymph # (Auto) Cassia # (Auto) Eos # (Auto) Baso # (Auto) Neutrophils % (Manual) Band Neutrophils % Lymphocytes % (Manual) Monocytes % (Manual) Nucleated RBC % Differential Comment Platelet Estimate Polychromasia Hypochromasia (manual) Poikilocytosis (manual Anisocytosis (manual) Microcytosis (manual) Target Cells Ovalocytes Pepe Cells PT INR APTT Puncture Site pCO2 pO2 42 22 L HCO3 ABG pH ABG Total CO2 ABG O2 Saturation ABG Base Excess ABG Hemoglobin ABG Carboxyhemoglobin POC ABG HHb (Measured) ABG Methemoglobin Jeff Test ABG Potassium VBG pH 7.42 7.42 VBG pCO2 25 L 30 L VBG HCO3 19.3 20.3 VBG Total CO2 17.0 L 20.4 L VBG O2 Sat (Calc) 77.2 H 34.1 L VBG Base Excess -6.5 L -3.9 L VBG Potassium 4.0 4.0 A-a O2 Difference Respiratory Index Hgb O2 Saturation Glucose 110 102 Lactate 6.5 H* 6.4 H* Vent Mode Mechanical Rate FiO2 Tidal Volume PEEP Crit Value Called To Dr. nasrin alexandra Crit Value Called By Jasvir johnston Crit Value Read Back Y Y Blood Gas Notified Time 1603 1750 Sodium 143.0 142.0 Potassium Chloride 113.0 H 110.0 H Carbon Dioxide Anion Gap BUN Creatinine Est GFR ( Amer) Est GFR (Non-Af Amer) POC Glucose (mg/dL) Random Glucose Lactic Acid Calcium Phosphorus Magnesium Total Bilirubin AST ALT Alkaline Phosphatase Ammonia Total Creatine Kinase CK-MB (Mass) Troponin I NT-Pro-B Natriuret Pep Total Protein Albumin Globulin Albumin/Globulin Ratio Lipase Arterial Blood Potassium Venous Blood Potassium 4.0 4.0 Urine Color Urine Clarity Urine pH Ur Specific [place] Urine Protein Urine Glucose (UA) Urine Ketones Urine Blood Urine Nitrate Urine Bilirubin Urine Urobilinogen Ur Leukocyte Esterase Urine WBC (Auto) Urine RBC (Auto) Ur Squamous Epith Cells Urine Yeast (Budding) Urine Opiates Screen Urine Methadone Screen Ur Barbiturates Screen Ur Phencyclidine Scrn Ur Amphetamines Screen U Benzodiazepines Scrn U Oth Cocaine Metabols U Cannabinoids Screen Alcohol, Quantitative C. difficile Ag & Toxin Blood Type AB POSITIVE Antibody Screen Negative 05/05/18 05/05/18 05/05/18 19:25 21:50 23:33 WBC RBC Hgb Hct MCV MCH MCHC RDW Plt Count MPV Neut % (Auto) Lymph % (Auto) Cassia % (Auto) Eos % (Auto) Baso % (Auto) Neut # (Auto) Lymph # (Auto) Cassia # (Auto) Eos # (Auto) Baso # (Auto) Neutrophils % (Manual) Band Neutrophils % Lymphocytes % (Manual) Monocytes % (Manual) Nucleated RBC % Differential Comment Platelet Estimate Polychromasia Hypochromasia (manual) Poikilocytosis (manual Anisocytosis (manual) Microcytosis (manual) Target Cells Ovalocytes [place] Cells PT INR APTT Puncture Site Rr Rba pCO2 77 H* 42 pO2 116 H 77 L HCO3 15.3 L 22.6 ABG pH 7.02 L* 7.34 L ABG Total CO2 22.3 24.0 ABG O2 Saturation 97.7 97.1 ABG Base Excess -12.3 L -2.9 L ABG Hemoglobin 8.5 L ABG Carboxyhemoglobin 2.7 H POC ABG HHb (Measured) 2.8 ABG Methemoglobin 1.1 Jeff Test Yes Na ABG Potassium 4.1 VBG pH VBG pCO2 VBG HCO3 VBG Total CO2 VBG O2 Sat (Calc) VBG Base Excess VBG Potassium A-a O2 Difference 73.0 156.0 Respiratory Index 0.6 2.0 Hgb O2 Saturation 93.4 L Glucose 114 H Lactate 5.1 H* Vent Mode Prvc Mechanical Rate 20 FiO2 40.0 40.0 Tidal Volume 500 PEEP 5 Crit Value Called To Ed rn Crit Value Called By Annemarie rt Crit Value Read Back Y Blood Gas Notified Time 1954 Sodium 142.0 Potassium Chloride 109.0 H Carbon Dioxide Anion Gap BUN Creatinine Est GFR ( Amer) Est GFR (Non-Af Amer) POC Glucose (mg/dL) 127 H Random Glucose Lactic Acid Calcium Phosphorus Magnesium Total Bilirubin AST ALT Alkaline Phosphatase Ammonia Total Creatine Kinase CK-MB (Mass) Troponin I NT-Pro-B Natriuret Pep Total Protein Albumin Globulin Albumin/Globulin Ratio Lipase Arterial Blood Potassium 4.1 Venous Blood Potassium Urine Color Urine Clarity Urine pH Ur Specific [place] Urine Protein Urine Glucose (UA) Urine Ketones Urine Blood Urine Nitrate Urine Bilirubin Urine Urobilinogen Ur Leukocyte Esterase Urine WBC (Auto) Urine RBC (Auto) Ur Squamous Epith Cells Urine Yeast (Budding) Urine Opiates Screen Urine Methadone Screen Ur Barbiturates Screen Ur Phencyclidine Scrn Ur Amphetamines Screen U Benzodiazepines Scrn U Oth Cocaine Metabols U Cannabinoids Screen Alcohol, Quantitative C. difficile Ag & Toxin Blood Type Antibody Screen 05/06/18 05/06/18 05/06/18 01:01 01:01 01:01 WBC RBC Hgb Hct MCV MCH MCHC RDW Plt Count MPV Neut % (Auto) Lymph % (Auto) Cassia % (Auto) Eos % (Auto) Baso % (Auto) Neut # (Auto) Lymph # (Auto) Cassia # (Auto) Eos # (Auto) Baso # (Auto) Neutrophils % (Manual) Band Neutrophils % Lymphocytes % (Manual) Monocytes % (Manual) Nucleated RBC % Differential Comment Platelet Estimate Polychromasia Hypochromasia (manual) Poikilocytosis (manual Anisocytosis (manual) Microcytosis (manual) Target Cells Ovalocytes [place] Cells PT INR APTT Puncture Site pCO2 pO2 HCO3 ABG pH ABG Total CO2 ABG O2 Saturation ABG Base Excess ABG Hemoglobin ABG Carboxyhemoglobin POC ABG HHb (Measured) ABG Methemoglobin Jeff Test ABG Potassium VBG pH VBG pCO2 VBG HCO3 VBG Total CO2 VBG O2 Sat (Calc) VBG Base Excess VBG Potassium A-a O2 Difference Respiratory Index Hgb O2 Saturation Glucose Lactate Vent Mode Mechanical Rate FiO2 Tidal Volume PEEP Crit Value Called To Crit Value Called By Crit Value Read Back Blood Gas Notified Time Sodium 141 Potassium 4.2 Chloride 108 H Carbon Dioxide 24 Anion Gap 13 BUN 13 Creatinine 0.9 Est GFR ( Amer) > 60 Est GFR (Non-Af Amer) > 60 POC Glucose (mg/dL) Random Glucose 123 H Lactic Acid 2.5 H Calcium 7.4 L Phosphorus 4.3 Magnesium 1.4 L Total Bilirubin 1.3 AST 79 H ALT 38 Alkaline Phosphatase 92 Ammonia Total Creatine Kinase 499 H CK-MB (Mass) 6.48 H Troponin I 0.1380 H* NT-Pro-B Natriuret Pep Total Protein 6.3 Albumin 2.4 L Globulin 3.9 Albumin/Globulin Ratio 0.6 L Lipase Arterial Blood Potassium Venous Blood Potassium Urine Color Urine Clarity Urine pH Ur Specific [place] Urine Protein Urine Glucose (UA) Urine Ketones Urine Blood Urine Nitrate Urine Bilirubin Urine Urobilinogen Ur Leukocyte Esterase Urine WBC (Auto) Urine RBC (Auto) Ur Squamous Epith Cells Urine Yeast (Budding) Urine Opiates Screen Urine Methadone Screen Ur Barbiturates Screen Ur Phencyclidine Scrn Ur Amphetamines Screen U Benzodiazepines Scrn U Oth Cocaine Metabols U Cannabinoids Screen Alcohol, Quantitative C. difficile Ag & Toxin Blood Type Antibody Screen 05/06/18 05/06/18 05/06/18 03:25 03:26 03:26 WBC RBC Hgb Hct MCV MCH MCHC RDW Plt Count MPV Neut % (Auto) Lymph % (Auto) [place] % (Auto) Eos % (Auto) Baso % (Auto) Neut # (Auto) Lymph # (Auto) [place] # (Auto) Eos # (Auto) Baso # (Auto) Neutrophils % (Manual) Band Neutrophils % Lymphocytes % (Manual) Monocytes % (Manual) Nucleated RBC % Differential Comment Platelet Estimate Polychromasia Hypochromasia (manual) Poikilocytosis (manual Anisocytosis (manual) Microcytosis (manual) Target Cells Ovalocytes [place] Cells PT INR APTT Puncture Site pCO2 pO2 HCO3 ABG pH ABG Total CO2 ABG O2 Saturation ABG Base Excess ABG Hemoglobin ABG Carboxyhemoglobin POC ABG HHb (Measured) ABG Methemoglobin Jeff Test ABG Potassium VBG pH VBG pCO2 VBG HCO3 VBG Total CO2 VBG O2 Sat (Calc) VBG Base Excess VBG Potassium A-a O2 Difference Respiratory Index Hgb O2 Saturation Glucose Lactate Vent Mode Mechanical Rate FiO2 Tidal Volume PEEP Crit Value Called To Crit Value Called By Crit Value Read Back Blood Gas Notified Time Sodium Potassium Chloride Carbon Dioxide Anion Gap BUN Creatinine Est GFR ( Amer) Est GFR (Non-Af Amer) POC Glucose (mg/dL) Random Glucose Lactic Acid Calcium Phosphorus Magnesium Total Bilirubin AST ALT Alkaline Phosphatase Ammonia Total Creatine Kinase CK-MB (Mass) Troponin I NT-Pro-B Natriuret Pep Total Protein Albumin Globulin Albumin/Globulin Ratio Lipase Arterial Blood Potassium Venous Blood Potassium Urine Color [place] Urine Clarity Clear Urine pH 5.0 Ur Specific [place] 1.025 Urine Protein 3+ H Urine Glucose (UA) Normal Urine Ketones Negative Urine Blood 3+ H Urine Nitrate Negative Urine Bilirubin Negative Urine Urobilinogen 2.0 Ur Leukocyte Esterase Neg Urine WBC (Auto) 9 H Urine RBC (Auto) 707 H Ur Squamous Epith Cells 1 Urine Yeast (Budding) Few H Urine Opiates Screen Negative Urine Methadone Screen Negative Ur Barbiturates Screen Negative Ur Phencyclidine Scrn Negative Ur Amphetamines Screen Negative U Benzodiazepines Scrn Negative U Oth Cocaine Metabols Negative U Cannabinoids Screen Negative Alcohol, Quantitative C. difficile Ag & Toxin Negative Blood Type Antibody Screen 05/06/18 05/06/18 05/06/18 03:28 04:20 05:48 WBC 14.6 H RBC 3.51 L Hgb 7.7 L Hct 25.6 L MCV 72.9 L MCH 22.0 L MCHC 30.1 L RDW 22.4 H Plt Count 36 L D MPV 8.4 Neut % (Auto) 90.3 H Lymph % (Auto) 5.6 L [place] % (Auto) 3.5 Eos % (Auto) 0.0 Baso % (Auto) 0.6 Neut # (Auto) 13.2 H Lymph # (Auto) 0.8 L [place] # (Auto) 0.5 Eos # (Auto) 0.0 Baso # (Auto) 0.1 Neutrophils % (Manual) 94 H Band Neutrophils % 1 Lymphocytes % (Manual) 4 L Monocytes % (Manual) 1 Nucleated RBC % 1 H Differential Comment Platelet Estimate Decreased L Polychromasia Slight Hypochromasia (manual) Moderate Poikilocytosis (manual Anisocytosis (manual) Moderate Microcytosis (manual) Slight Target Cells Ovalocytes Slight [place] Cells PT INR APTT Puncture Site Rr pCO2 31 L pO2 121 H HCO3 24.3 ABG pH 7.46 H ABG Total CO2 23.0 ABG O2 Saturation 99.4 H ABG Base Excess -0.9 ABG Hemoglobin ABG Carboxyhemoglobin POC ABG HHb (Measured) ABG Methemoglobin Jeff Test Pos ABG Potassium 3.6 VBG pH VBG pCO2 VBG HCO3 VBG Total CO2 VBG O2 Sat (Calc) VBG Base Excess VBG Potassium A-a O2 Difference 125.0 Respiratory Index 1.0 Hgb O2 Saturation Glucose 123 H Lactate 1.3 Vent Mode Prvc Mechanical Rate 20 FiO2 40.0 Tidal Volume 500 PEEP 5 Crit Value Called To Crit Value Called By Crit Value Read Back Blood Gas Notified Time Sodium 143.0 Potassium Chloride 117.0 H Carbon Dioxide Anion Gap BUN Creatinine Est GFR ( Amer) Est GFR (Non-Af Amer) POC Glucose (mg/dL) 108 Random Glucose Lactic Acid Calcium Phosphorus Magnesium Total Bilirubin AST ALT Alkaline Phosphatase Ammonia Total Creatine Kinase CK-MB (Mass) Troponin I NT-Pro-B Natriuret Pep Total Protein Albumin Globulin Albumin/Globulin Ratio Lipase Arterial Blood Potassium 3.6 Venous Blood Potassium Urine Color Urine Clarity Urine pH Ur Specific [place] Urine Protein Urine Glucose (UA) Urine Ketones Urine Blood Urine Nitrate Urine Bilirubin Urine Urobilinogen Ur Leukocyte Esterase Urine WBC (Auto) Urine RBC (Auto) Ur Squamous Epith Cells Urine Yeast (Budding) Urine Opiates Screen Urine Methadone Screen Ur Barbiturates Screen Ur Phencyclidine Scrn Ur Amphetamines Screen U Benzodiazepines Scrn U Oth Cocaine Metabols U Cannabinoids Screen Alcohol, Quantitative C. difficile Ag & Toxin Blood Type Antibody Screen 05/06/18 05/06/18 05/06/18 06:22 06:22 06:22 WBC RBC Hgb Hct MCV MCH MCHC RDW Plt Count MPV Neut % (Auto) Lymph % (Auto) [place] % (Auto) Eos % (Auto) Baso % (Auto) Neut # (Auto) Lymph # (Auto) [place] # (Auto) Eos # (Auto) Baso # (Auto) Neutrophils % (Manual) Band Neutrophils % Lymphocytes % (Manual) Monocytes % (Manual) Nucleated RBC % Differential Comment Platelet Estimate Polychromasia Hypochromasia (manual) Poikilocytosis (manual Anisocytosis (manual) Microcytosis (manual) Target Cells Ovalocytes [place] Cells PT 19.8 H INR 1.8 APTT 38 H Puncture Site pCO2 pO2 HCO3 ABG pH ABG Total CO2 ABG O2 Saturation ABG Base Excess ABG Hemoglobin ABG Carboxyhemoglobin POC ABG HHb (Measured) ABG Methemoglobin Jeff Test ABG Potassium VBG pH VBG pCO2 VBG HCO3 VBG Total CO2 VBG O2 Sat (Calc) VBG Base Excess VBG Potassium A-a O2 Difference Respiratory Index Hgb O2 Saturation Glucose Lactate Vent Mode Mechanical Rate FiO2 Tidal Volume PEEP Crit Value Called To Crit Value Called By Crit Value Read Back Blood Gas Notified Time Sodium 138 Potassium 4.0 Chloride 110 H Carbon Dioxide 24 Anion Gap 9 L BUN 15 Creatinine 0.9 Est GFR ( Amer) > 60 Est GFR (Non-Af Amer) > 60 POC Glucose (mg/dL) Random Glucose 125 H Lactic Acid Calcium 7.0 L Phosphorus 4.0 Magnesium 1.8 Total Bilirubin 1.1 AST 58 ALT 31 Alkaline Phosphatase 84 Ammonia 65 H D Total Creatine Kinase 292 H CK-MB (Mass) 3.60 H Troponin I 0.1260 H* NT-Pro-B Natriuret Pep Total Protein 5.3 L Albumin 2.0 L Globulin 3.4 Albumin/Globulin Ratio 0.6 L Lipase Arterial Blood Potassium Venous Blood Potassium Urine Color Urine Clarity Urine pH Ur Specific [place] Urine Protein Urine Glucose (UA) Urine Ketones Urine Blood Urine Nitrate Urine Bilirubin Urine Urobilinogen Ur Leukocyte Esterase Urine WBC (Auto) Urine RBC (Auto) Ur Squamous Epith Cells Urine Yeast (Budding) Urine Opiates Screen Urine Methadone Screen Ur Barbiturates Screen Ur Phencyclidine Scrn Ur Amphetamines Screen U Benzodiazepines Scrn U Oth Cocaine Metabols U Cannabinoids Screen Alcohol, Quantitative C. difficile Ag & Toxin Blood Type Antibody Screen 05/06/18 05/06/18 05/06/18 06:22 06:26 06:26 WBC 11.3 H RBC 3.20 L Hgb 7.2 L Hct 23.1 L MCV 72.0 L MCH 22.5 L MCHC 31.2 L RDW 22.8 H Plt Count 32 L MPV 8.3 Neut % (Auto) 86.4 H Lymph % (Auto) 9.0 L [place] % (Auto) 4.4 Eos % (Auto) 0.1 Baso % (Auto) 0.1 Neut # (Auto) 9.7 H Lymph # (Auto) 1.0 [place] # (Auto) 0.5 Eos # (Auto) 0.0 Baso # (Auto) 0.0 Neutrophils % (Manual) Band Neutrophils % Lymphocytes % (Manual) Monocytes % (Manual) Nucleated RBC % Differential Comment Platelet Estimate Polychromasia Hypochromasia (manual) Poikilocytosis (manual Anisocytosis (manual) Microcytosis (manual) Target Cells Ovalocytes [place] Cells PT INR APTT Puncture Site pCO2 pO2 HCO3 ABG pH ABG Total CO2 ABG O2 Saturation ABG Base Excess ABG Hemoglobin ABG Carboxyhemoglobin POC ABG HHb (Measured) ABG Methemoglobin Jeff Test ABG Potassium VBG pH VBG pCO2 VBG HCO3 VBG Total CO2 VBG O2 Sat (Calc) VBG Base Excess VBG Potassium A-a O2 Difference Respiratory Index Hgb O2 Saturation Glucose Lactate Vent Mode Mechanical Rate FiO2 Tidal Volume PEEP Crit Value Called To Crit Value Called By Crit Value Read Back Blood Gas Notified Time Sodium Potassium Chloride Carbon Dioxide Anion Gap BUN Creatinine Est GFR ( Amer) Est GFR (Non-Af Amer) POC Glucose (mg/dL) Random Glucose Lactic Acid 1.3 Calcium Phosphorus Magnesium Total Bilirubin AST ALT Alkaline Phosphatase Ammonia Total Creatine Kinase CK-MB (Mass) Troponin I NT-Pro-B Natriuret Pep Total Protein Albumin Globulin Albumin/Globulin Ratio Lipase Arterial Blood Potassium Venous Blood Potassium Urine Color Urine Clarity Urine pH Ur Specific [place] Urine Protein Urine Glucose (UA) Urine Ketones Urine Blood Urine Nitrate Urine Bilirubin Urine Urobilinogen Ur Leukocyte Esterase Urine WBC (Auto) Urine RBC (Auto) Ur Squamous Epith Cells Urine Yeast (Budding) Urine Opiates Screen Urine Methadone Screen Ur Barbiturates Screen Ur Phencyclidine Scrn Ur Amphetamines Screen U Benzodiazepines Scrn U Oth Cocaine Metabols U Cannabinoids Screen Alcohol, Quantitative C. difficile Ag & Toxin Blood Type AB POSITIVE Antibody Screen Negative 05/06/18 09:12 WBC RBC Hgb Hct MCV MCH MCHC RDW Plt Count MPV Neut % (Auto) Lymph % (Auto) [place] % (Auto) Eos % (Auto) Baso % (Auto) Neut # (Auto) Lymph # (Auto) [place] # (Auto) Eos # (Auto) Baso # (Auto) Neutrophils % (Manual) Band Neutrophils % Lymphocytes % (Manual) Monocytes % (Manual) Nucleated RBC % Differential Comment Platelet Estimate Polychromasia Hypochromasia (manual) Poikilocytosis (manual Anisocytosis (manual) Microcytosis (manual) Target Cells Ovalocytes [place] Cells PT INR APTT Puncture Site pCO2 pO2 HCO3 ABG pH ABG Total CO2 ABG O2 Saturation ABG Base Excess ABG Hemoglobin ABG Carboxyhemoglobin POC ABG HHb (Measured) ABG Methemoglobin Jeff Test ABG Potassium VBG pH VBG pCO2 VBG HCO3 VBG Total CO2 VBG O2 Sat (Calc) VBG Base Excess VBG Potassium A-a O2 Difference Respiratory Index Hgb O2 Saturation Glucose Lactate Vent Mode Mechanical Rate FiO2 Tidal Volume PEEP Crit Value Called To Crit Value Called By Crit Value Read Back Blood Gas Notified Time Sodium Potassium Chloride Carbon Dioxide Anion Gap BUN Creatinine Est GFR ( Amer) Est GFR (Non-Af Amer) POC Glucose (mg/dL) Random Glucose Lactic Acid 1.3 Calcium Phosphorus Magnesium Total Bilirubin AST ALT Alkaline Phosphatase Ammonia Total Creatine Kinase CK-MB (Mass) Troponin I NT-Pro-B Natriuret Pep Total Protein Albumin Globulin Albumin/Globulin Ratio Lipase Arterial Blood Potassium Venous Blood Potassium Urine Color Urine Clarity Urine pH Ur Specific [place] Urine Protein Urine Glucose (UA) Urine Ketones Urine Blood Urine Nitrate Urine Bilirubin Urine Urobilinogen Ur Leukocyte Esterase Urine WBC (Auto) Urine RBC (Auto) Ur Squamous Epith Cells Urine Yeast (Budding) Urine Opiates Screen Urine Methadone Screen Ur Barbiturates Screen Ur Phencyclidine Scrn Ur Amphetamines Screen U Benzodiazepines Scrn U Oth Cocaine Metabols U Cannabinoids Screen Alcohol, Quantitative C. difficile Ag & Toxin Blood Type Antibody Screen Assessment & Plan - Assessment and Plan (Free Text) Plan: Patient seen and examined at bedside. Patient s/p ativan by ER physician. POSt ativan, patient had hypercapneic respriatory failure. ? seizures, however lactic not very high. -Intubate to protect airway -Sepsis: suspect MRSA: continue vanco/zosyn , serial lactic, avoid fluid overloaded states as patient congested, zamudio culture -NSTEMI: suspect uderlying CAD: minor increase in trop, (+)bleeding, low platelets, obtain cardiology input -Thrombocytopenia: low platelets possible 2nd hyperplenism 2nd liver chirrosis, continue to monitor -AMS: check ammonia, avoid benzos or other sedatives, obtain CT head -DT: use precedex -PUD ppx PPI -DVT ppx scds Patient's PMD at bedside evaluating patient. cc time 45 minutes cc time 45 minutes excluding any time spent on procedures - Date & Time Date: 05/05/18 Time: 20:00
[2018-05-05] MEDS ORDERED: Rocuronium 10 mg/ml (5 ml) IV ONE (19:30)
[2018-05-05] MEDS ORDERED: Naloxone 0.4 mg/ml Inj (Adult) IVP ONE (19:32)
[2018-05-05] MEDS ORDERED: Flumazenil 0.1 mg/ml Inj (5ml) IVP STA (19:33)
[2018-05-05] MEDS ORDERED: Naloxone 0.4 mg/ml Inj (Adult) ONE (19:38)
[2018-05-05] MEDS ORDERED: Propofol 10 mg/ml 1,000 MG/100 ML VIAL ONE (19:48)
[2018-05-05] MEDS ORDERED: Propofol 10 mg/ml 1,000 MG/100 ML VIAL IV PRN ×2 (19:51→20:19)
[2018-05-05 20:00] LABS: ABG ALLEN TEST YES; ARTERIAL BLOOD GAS HCO3 15.3 mmol/L (21-28); ARTERIAL BLOOD GAS O2 SAT 97.7 % (95-98); ARTERIAL BLOOD GAS PCO2 77 mm/Hg (35-45); ARTERIAL BLOOD GAS PH 7.02 (7.35-7.45); ARTERIAL BLOOD GAS PO2 116 mm/Hg (80-100); ARTERIAL BLOOD GAS TCO2 22.3 mmol/L (22-28)
--- NOTE | 2018-05-05 20:21 | CP.PCM.HP ---
History of Present Illness - History of Present Illness History of Present Illness: dictated Present on Admission - Present on Admission Any Indicators Present on Admission: No History of DVT/PE: No History of Uncontrolled Diabetes: No Urinary Catheter: No Decubitus Ulcer Present: No Past Patient History - Infectious Disease Hx of Infectious Diseases: None - Past Medical History & Family History Past Medical History?: Yes - Past Social History Smoking Status: Never Smoked - CARDIAC Hx Congestive Heart Failure: Yes Hx Hypercholesterolemia: Yes Hx Hypertension: Yes - PULMONARY Hx Asthma: Yes Hx Pneumonia: Yes (3 years ago) - NEUROLOGICAL Hx Seizures: Yes (etoh induced) - HEENT Hx HEENT Problems: Yes Other/Comment: eye glasses for reading - RENAL Hx Chronic Kidney Disease: No - ENDOCRINE/METABOLIC Hx Endocrine Disorders: Yes Hx Diabetes Mellitus Type 2: Yes - HEMATOLOGICAL/ONCOLOGICAL Hx Anemia: Yes - INTEGUMENTARY Hx Dermatological Problems: Yes Hx Psoriasis: Yes Other/Comment: Psoriatic Arthritis - MUSCULOSKELETAL/RHEUMATOLOGICAL Hx Arthritis: Yes (psoriatic arthritis; b/l elb; fingers) Hx Rheumatoid Arthritis: Yes - GASTROINTESTINAL Hx Gastrointestinal Disorders: Yes Other/Comment: Liver disease - GENITOURINARY/GYNECOLOGICAL Hx Sexually Transmitted Disorders: No - PSYCHIATRIC Hx Anxiety: Yes Hx Depression: Yes Hx Substance Use: No - SURGICAL HISTORY Hx Surgeries: Yes Hx Orthopedic Surgery: Yes (rt. knee swelling) - ANESTHESIA Hx Anesthesia: Yes Hx Anesthesia Reactions: No Hx Malignant Hyperthermia: No Meds Allergies/Adverse Reactions: Allergies Allergy/AdvReac Type Severity Reaction Status Date / Time No Known Allergies Allergy Verified 04/10/18 14:55 Results - Vital Signs Recent Vital Signs: Last Vital Signs Temp 98.7 F 05/05/18 17:42 Pulse 130 H 05/05/18 19:20 Resp 11 L 05/05/18 19:20 BP 133/83 05/05/18 19:20 Pulse Ox 96 05/05/18 19:20 - Labs Result Diagrams: 05/05/18 15:57 05/05/18 15:57 Labs: Laboratory Results - last 24 hr 05/05/18 05/05/18 05/05/18 14:47 15:57 15:57 WBC 21.5 H D RBC 4.02 L Hgb 9.1 L Hct 29.6 L MCV 73.8 L MCH 22.6 L MCHC 30.6 L RDW 22.8 H Plt Count 56 L D MPV 8.4 Neut % (Auto) 93.8 H Lymph % (Auto) 2.1 L [place] % (Auto) 3.9 Eos % (Auto) 0.0 Baso % (Auto) 0.2 Neut # (Auto) 20.2 H Lymph # (Auto) 0.5 L [place] # (Auto) 0.8 Eos # (Auto) 0.0 Baso # (Auto) 0.0 Neutrophils % (Manual) 79 H Band Neutrophils % 17 H* Lymphocytes % (Manual) 1 L Monocytes % (Manual) 3 Platelet Estimate Decreased L Hypochromasia (manual) Slight Poikilocytosis (manual Slight Anisocytosis (manual) Slight Target Cells Slight Ovalocytes Slight [place] Cells Slight PT INR APTT Puncture Site pCO2 pO2 HCO3 ABG pH ABG Total CO2 ABG O2 Saturation ABG Base Excess Jeff Test ABG Potassium VBG pH VBG pCO2 VBG HCO3 VBG Total CO2 VBG O2 Sat (Calc) VBG Base Excess VBG Potassium A-a O2 Difference Respiratory Index Glucose Lactate FiO2 Crit Value Called To Crit Value Called By Crit Value Read Back Blood Gas Notified Time Sodium 140 Potassium 4.1 Chloride 107 Carbon Dioxide 18 L Anion Gap 19 BUN 11 Creatinine 0.8 Est GFR ( Amer) > 60 Est GFR (Non-Af Amer) > 60 POC Glucose (mg/dL) 135 H Random Glucose 120 H Calcium 7.8 L Phosphorus 4.5 Magnesium 1.4 L Total Bilirubin 1.6 H AST 86 H D ALT 34 Alkaline Phosphatase 135 H D Total Creatine Kinase 710 H Troponin I 0.1340 H* NT-Pro-B Natriuret Pep 5130 H Total Protein 7.1 Albumin 2.8 L Globulin 4.3 H Albumin/Globulin Ratio 0.7 L Lipase 229 Arterial Blood Potassium Venous Blood Potassium Alcohol, Quantitative 52 H Blood Type Antibody Screen 05/05/18 05/05/18 05/05/18 15:57 16:00 17:45 WBC RBC Hgb Hct MCV MCH MCHC RDW Plt Count MPV Neut % (Auto) Lymph % (Auto) [place] % (Auto) Eos % (Auto) Baso % (Auto) Neut # (Auto) Lymph # (Auto) [place] # (Auto) Eos # (Auto) Baso # (Auto) Neutrophils % (Manual) Band Neutrophils % Lymphocytes % (Manual) Monocytes % (Manual) Platelet Estimate Hypochromasia (manual) Poikilocytosis (manual Anisocytosis (manual) Target Cells Ovalocytes [place] Cells PT 15.8 H INR 1.4 APTT 37 H Puncture Site pCO2 pO2 42 HCO3 ABG pH ABG Total CO2 ABG O2 Saturation ABG Base Excess Jeff Test ABG Potassium VBG pH 7.42 VBG pCO2 25 L VBG HCO3 19.3 VBG Total CO2 17.0 L VBG O2 Sat (Calc) 77.2 H VBG Base Excess -6.5 L VBG Potassium 4.0 A-a O2 Difference Respiratory Index Glucose 110 Lactate 6.5 H* FiO2 Crit Value Called To Dr. alexandra Crit Value Called By Jasvir johnston Crit Value Read Back Y Blood Gas Notified Time 1603 Sodium 143.0 Potassium Chloride 113.0 H Carbon Dioxide Anion Gap BUN Creatinine Est GFR ( Amer) Est GFR (Non-Af Amer) POC Glucose (mg/dL) Random Glucose Calcium Phosphorus Magnesium Total Bilirubin AST ALT Alkaline Phosphatase Total Creatine Kinase Troponin I NT-Pro-B Natriuret Pep Total Protein Albumin Globulin Albumin/Globulin Ratio Lipase Arterial Blood Potassium Venous Blood Potassium 4.0 Alcohol, Quantitative Blood Type AB POSITIVE Antibody Screen Negative 05/05/18 05/05/18 17:47 19:25 WBC RBC Hgb Hct MCV MCH MCHC RDW Plt Count MPV Neut % (Auto) Lymph % (Auto) [place] % (Auto) Eos % (Auto) Baso % (Auto) Neut # (Auto) Lymph # (Auto) [place] # (Auto) Eos # (Auto) Baso # (Auto) Neutrophils % (Manual) Band Neutrophils % Lymphocytes % (Manual) Monocytes % (Manual) Platelet Estimate Hypochromasia (manual) Poikilocytosis (manual Anisocytosis (manual) Target Cells Ovalocytes [place] Cells PT INR APTT Puncture Site Rr pCO2 77 H* pO2 22 L 116 H HCO3 15.3 L ABG pH 7.02 L* ABG Total CO2 22.3 ABG O2 Saturation 97.7 ABG Base Excess -12.3 L Jeff Test Yes ABG Potassium 4.1 VBG pH 7.42 VBG pCO2 30 L VBG HCO3 20.3 VBG Total CO2 20.4 L VBG O2 Sat (Calc) 34.1 L VBG Base Excess -3.9 L VBG Potassium 4.0 A-a O2 Difference 73.0 Respiratory Index 0.6 Glucose 102 114 H Lactate 6.4 H* 5.1 H* FiO2 40.0 Crit Value Called To Dr nasrin Moreno rn Crit Value Called By Jasvir Sharpe rt Crit Value Read Back Y Y Blood Gas Notified Time 1749 1954 Sodium 142.0 142.0 Potassium Chloride 110.0 H 109.0 H Carbon Dioxide Anion Gap BUN Creatinine Est GFR ( Amer) Est GFR (Non-Af Amer) POC Glucose (mg/dL) Random Glucose Calcium Phosphorus Magnesium Total Bilirubin AST ALT Alkaline Phosphatase Total Creatine Kinase Troponin I NT-Pro-B Natriuret Pep Total Protein Albumin Globulin Albumin/Globulin Ratio Lipase Arterial Blood Potassium 4.1 Venous Blood Potassium 4.0 Alcohol, Quantitative Blood Type Antibody Screen
[2018-05-05] MEDS ORDERED: Folic Acid 1 MG, Thiamine 100 MG, Multivitamin (MVI) 10 ML in Dextrose 5% In Water 1,00... IV SCH (20:30)
--- NOTE | 2018-05-05 21:25 | PCM.SEPTIC ---
Sepsis Progress Note - Reassessment Type Date of Evaluation: 05/05/18 Time of Evaluation: 21:15 Reassessment Type: Non-invasive reassessment - Non Invasive Reassessment Were the most recent vital sign reviewed: Yes Vital Sign (Latest): Temp Pulse Resp BP Pulse Ox 98.7 F 140 H 15 122/62 99 05/05/18 17:42 05/05/18 20:28 05/05/18 20:28 05/05/18 20:28 05/05/18 20:34 Cardiovascular: Yes: Tachycardia Respiratory: Yes: Crackles Capillary Refill: Normal (Less than 2 sec) Pulses: Normal Radial, Normal Dorsalis Pedis Skin: Normal Color
[2018-05-05 21:54] LABS: ARTERIAL BLOOD GAS HCO3 22.6 mmol/L (21-28); ARTERIAL BLOOD GAS HEMOGLOBIN 8.5 g/dL (11.7-17.4); ARTERIAL BLOOD GAS O2 SAT 97.1 % (95-98); ARTERIAL BLOOD GAS PCO2 42 mm/Hg (35-45); ARTERIAL BLOOD GAS PH 7.34 (7.35-7.45); ARTERIAL BLOOD GAS PO2 77 mm/Hg (80-100)
[2018-05-06] MEDS: Magnesium Sulfate 1 gm in D5W 1 GM/100 ML BAG IVPB SCH ×3 (00:31→02:14)
[2018-05-06] MEDS ORDERED: HYDROmorphone 0.5 mg/0.5 ml ISec IVP STA (00:32)
[2018-05-06] MEDS: Dexmedetomidine Hydrochloride 200 MCG in Sodium Chloride 0.9% 48 ML IV PRN ×3 (01:00→16:30)
[2018-05-06] MEDS: Albuterol-Ipratrop 3 mg / 0.5 (3 ml) UD INH SCH ×4 (01:07→19:56)
[2018-05-06 01:24] LABS: ALB/GLOB RATIO 0.6 (1.0-2.1); ALBUMIN 2.4 g/dL (3.5-5.0); ALT/SGPT 38 U/L (21-72); AST/SGOT 79 U/L (17-59); BLOOD UREA NITROGEN 13 mg/dL (9-20); CALCIUM 7.4 mg/dl (8.6-10.4); GFR NON-AFRICAN AMERICAN > 60
[2018-05-06 01:36] LABS: CK-MB 6.48 ng/mL (0.0-3.38); TROPONIN I 0.138 ng/mL (0.00-0.120)
[2018-05-06] MEDS: Vancomycin 1 gm/NS 200 ml 1 GM/200 ML BAG IVPB SCH ×3 (02:15→20:45)
[2018-05-06] MEDS: Piperacillin/Tazobact 3.375 GM in Sodium Chloride 100 ML IVPB SCH ×5 (02:16→20:43)
[2018-05-06 03:35] LABS: BASO # 0.1 K/uL (0.0-0.2); BASO % 0.6 % (0.0-2.0); HEMOGLOBIN 7.7 g/dL (12.0-18.0); LYMPH # 0.8 K/uL (1.0-4.3); LYMPH % 5.6 % (20.0-40.0); MEAN CELL VOLUME 72.9 fL (80.0-94.0); MEAN CORPUSCULAR HGB CONC 30.1 g/dL (33.0-37.0); MEAN PLATELET VOLUME 8.4 fL (7.2-11.7); MONO # 0.5 K/uL (0.0-0.8); MONO % 3.5 % (0.0-10.0); NEUT # 13.2 K/uL (1.8-7.0); NEUT % 90.3 % (50.0-75.0); PLATELET COUNT 36 K/uL (130-400); RBC 3.51 Mil/uL (4.40-5.90); RED CELL DISTRIBUTION WIDTH 22.4 % (11.5-14.5); WHITE BLOOD COUNT 14.6 K/uL (4.8-10.8)
[2018-05-06 03:51] LABS: BARBITURATES, UR NEGATIVE (NEGATIVE); BENZODIAZEPINES, UR NEGATIVE (NEGATIVE); OPIATES, UR NEGATIVE (NEGATIVE); PHENCYCLIDINE, UR NEGATIVE (NEGATIVE)
[2018-05-06 04:04] LABS: SQUAMOUS EPITHIAL 1 /hpf (0-5); URINE BILIRUBIN NEGATIVE (NEGATIVE); URINE BLOOD 3+ (NEGATIVE); URINE CLARITY Clear (Clear); URINE COLOR Amber (YELLOW); URINE GLUCOSE (UA) NORMAL (Normal); URINE LEUKOCYTE ESTERASE NEG Leu/uL (Negative); URINE PROTEIN 3+ mg/dL (NEGATIVE)
[2018-05-06 04:28] LABS: ABG ALLEN TEST POS; ARTERIAL BLOOD GAS HCO3 24.3 mmol/L (21-28); ARTERIAL BLOOD GAS O2 SAT 99.4 % (95-98); ARTERIAL BLOOD GAS PCO2 31 mm/Hg (35-45); ARTERIAL BLOOD GAS PH 7.46 (7.35-7.45); ARTERIAL BLOOD GAS PO2 121 mm/Hg (80-100)
[2018-05-06 06:42] LABS: INR 1.8; PROTHROMBIN TIME 19.8 SECONDS (9.7-12.2)
[2018-05-06 06:55] LABS: BASO % 0.1 % (0.0-2.0); EOS % 0.1 % (0.0-4.0); HEMOGLOBIN 7.2 g/dL (12.0-18.0); MEAN CORPUSCULAR HEMOGLOBIN 22.5 pg (27.0-31.0); MEAN CORPUSCULAR HGB CONC 31.2 g/dL (33.0-37.0); MEAN PLATELET VOLUME 8.3 fL (7.2-11.7); MONO # 0.5 K/uL (0.0-0.8); MONO % 4.4 % (0.0-10.0); NEUT # 9.7 K/uL (1.8-7.0); NEUT % 86.4 % (50.0-75.0); RBC 3.2 Mil/uL (4.40-5.90); RED CELL DISTRIBUTION WIDTH 22.8 % (11.5-14.5); WHITE BLOOD COUNT 11.3 K/uL (4.8-10.8)
[2018-05-06 07:05] LABS: ALB/GLOB RATIO 0.6 (1.0-2.1); ALT/SGPT 31 U/L (21-72); AST/SGOT 58 U/L (17-59); BLOOD UREA NITROGEN 15 mg/dL (9-20); GFR NON-AFRICAN AMERICAN > 60
--- NOTE | 2018-05-06 07:20 | HP ---
The patient was seen by me at 7:30 p.m. in the emergency room. The patient is in the bed #10. Initially, I spoke to the emergency room attending who called me for possible admission to the intensive care unit. CHIEF COMPLAINT: Brought into the emergency room because of increasing weakness and diarrhea and more worsening weakness. HISTORY OF PRESENT ILLNESS: The patient is a 42-year-old male with a history of alcoholic liver disease, mostly uncontrolled diabetes, history of multiple alcohol withdrawals in the past, also has a history of GI bleed with a small variceal bleeding, liver cirrhosis with ascites, significant psoriatic skin lesions, and also developed skin ulcers recently admitted recently with sepsis. At that time he was hospitalized, he was noted to have MRSA wound infection, and the patient was placed on vancomycin and also he was recovering from the LTAC with antibiotic and hyperbaric oxygen and wound was healing extremely well, and the patient was sent home from there. While he was at home, I spoke to the patient's mother multiple times that he was doing okay until yesterday. Since last night, he started having some shivering. This morning, he was okay, but around noon time, the patient called the patient's mother as well as the patient's brother on the phone saying that he was not feeling well. He was having shaking and his leg is increasing swelling, and also he started having more problem in the leg. He was not having any vomiting, but according to the family he was having some shaking and shivering. In the emergency room, the patient was noted to have tachycardia. He was also having some febrile illness and also a leg ulcer, but he was able to talk and convey information to the attending. Meanwhile, suddenly he developed significant chills, rigor, and there was suspected seizure activities. The patient was given 4 mg of Ativan following that, and he become obtund, become more lethargic, and hypopneic. While I examined the patient and I discussed in the ICU, decided to intubate after I discussed with the patient's mother also. The patient was intubated. He was having significant bleeding in the oral cavity because of the low platelet and hepatic liver cirrhosis. He was intubated with 6.5 size 2 with the GlideScope, post intubation chest x-ray some pulmonary edema noted. He was given antibiotic and code sepsis called in because of the elevated lactate and fever and tachycardia and also there was a concern about the alcoholic withdrawal and alcoholic seizure activities. The patient now intubated. He is coming to intensive care unit. I explained that information to the patient's family. PAST MEDICAL HISTORY: Diabetes, hypertension, chronic liver disease secondary to alcohol and liver cirrhosis, variceal bleeding in the past. PAST SURGICAL HISTORY: The patient had upper endoscopy in 08/2017. He also had a paracentesis in 01/2018. He was also noted to have internal hemorrhoid from colonoscopy, cholelithiasis also noted. No major surgical history. SOCIAL HISTORY: Used to be drinking alcohol; until recently, he used to drink almost to 1 pint every day vodka. He quit alcohol until today. According to the family, it is not clear whether he had any alcohol, but the serum alcohol level was slightly elevated today. REVIEW OF SYSTEMS: Currently, the patient is on ventilator, not responding, sedated. Vital signs otherwise stable. Tachycardia noted. The patient has increasing leg swelling. Abdomen swelling noted and also facial swelling. Family was concerned that he was also having frequent diarrheal episode. PHYSICAL EXAMINATION: GENERAL: Now, the patient is on ventilator with FiO2 of 40%. VITAL SIGNS: Respirations 11, saturation is 100%, pulse rate 130, blood pressure 128/88. CHEST: Good air entry bilaterally. Expiratory wheezing noted. HEART: Irregular heart sound. ABDOMEN: Abdominal tenderness negative, but anasarca and ascites noted. EXTREMITIES: Edema bilaterally noted. The patient has a right leg swelling. There are also significant ulcers noted in the anterior aspect, medial aspect, as well as lateral aspect of the right leg extending all the way to the posterior aspect. The base of this ulcer is very healthy, but some areas of unhealthy skin noted. He also has significant skin excoriations, and the psoriasis skin lesion significantly present throughout the body. LABORATORY DATA: WBC 21.8, hemoglobin 9, hematocrit 29.6, platelet is 56. INR is 1.4. The pre-intubation blood gas analyze is showing pH of 7, pO2 of 77, saturation is 97%. Chemistry: Sodium 140, potassium 4.1, anion bicarb 18, BUN and creatinine normal. Magnesium is 1.4. Troponin slight elevations noted. Alcohol 52 noted. Chest x-ray basilar infiltrate and also hilar infiltrate noted. The patient had a CAT scan of the abdomen and pelvis showing evidence of fluid filled mildly dilated mid and distal bowel loops, mural thickening in the colon, nonspecific colitis, liver cirrhosis, moderate abdominal and pelvic ascites, umbilical vein recanalization, severe decreased anasarca noted. Post-intubation chest x-ray noted, no pneumothorax. ASSESSMENT AND RECOMMENDATION: A 42-year-old male with a history of alcoholic liver disease, again suspected alcohol abuse, psoriatic skin lesion, diabetes, hypertension, mildly positive troponin now, admitted with altered mental status, possibly secondary to the Ativan injection, underlying postictal cannot be ruled out, and also possible alcoholic liver disease with withdrawal, underlying sepsis secondary to possible MRSA infection from the skin cannot be ruled out. The patient was recently on antibiotic with the hyperbaric oxygen, possible recurrent infection at this time. Generalized anasarca, ascites noted, diabetes poorly controlled, mild elevation of the troponin, possible non-ST elevation myocardial infarction, anemia, and also low thrombocytes, thrombocytopenia secondary to possible alcoholism. The patient's condition is very critical. I spoke to the patient's family, mom, as well as the patient's brother in detail. We will continue the aggressive supportive treatment, gastrointestinal evaluation, Infectious Disease evaluation, electrolyte supplementation, hepatic encephalopathy management, deep venous thrombosis and gastrointestinal prophylaxis, and we will continue to monitor the patient. Damaris Edwards MD MTDD
--- NOTE | 2018-05-06 08:00 | CP.CCUPN ---
<Noah Foreman - Last Filed: 05/06/18 11:28> CCU Subjective - Physician Review Subjective (Free Text): 05/06/18 08:52 Patient seen and examined at bedside. No acute events overnight. Patient is sedated and intubated on CPAP. Critical Care Time Spent (in minutes): 35 CCU Objective - Vital Signs / Intake & Output Vital Signs (Last 4 hours): Vital Signs Pulse Resp BP Pulse Ox 05/06/18 05:10 98 H 20 100 05/06/18 05:00 98 H 20 100 05/06/18 04:50 100 H 20 100 05/06/18 04:49 101 H 20 118/67 100 05/06/18 04:40 105 H 20 100 05/06/18 04:30 98 H 20 99 05/06/18 04:20 99 H 20 99 05/06/18 04:10 101 H 20 100 05/06/18 04:00 102 H 20 100 Intake and Output (Last 8hrs): Intake & Output 05/05/18 05/06/18 05/06/18 22:59 06:59 14:59 Intake Total 50 Balance 50 Weight 112.309 kg Intake: IV 50 Other: Voiding Method Indwelling Catheter - Physical Exam Other physical findings (Free Text): - Constitutional Additional comments: edematous consistent with anasarca - Head Exam Head Exam: ATRAUMATIC, NORMOCEPHALIC - Eye Exam Eye Exam: EOMI, Normal appearance - ENT Exam ENT Exam: Mucous Membranes Dry - Respiratory Exam Respiratory Exam: absent: Accessory Muscle Use, Clear to Auscultation Bilateral, Rales, Rhonchi, Wheezes Additional comments: Crackles heard bilaterally. Patient on BIPAP - Cardiovascular Exam Cardiovascular Exam: Tachycardia, +S1, +S2. absent: Gallop, Rubs, Systolic Murmur - GI/Abdominal Exam GI & Abdominal Exam: Normal Bowel Sounds, Soft. absent: Distended - Extremities Exam Extremities exam: Negative for: normal inspection Additional comments: edema to bilateral extremities. 2 large open wounds to posterior right leg with foul odor with clear discharge from wound. - Neurological Exam Additional comments: Patient sedated - Skin Additional comments: edema to bilateral extremities. 2 large open wounds to posterior right leg with foul odor with clear discharge from wound. - Medications Active Medications: Active Medications Generic Name Dose Route Start Last Admin Trade Name Freq PRN Reason Stop Dose Admin Albuterol/Ipratropium 3 ml 05/06/18 02:00 05/06/18 07:34 Duoneb 3 Mg/0.5 Mg (3 Ml) Ud INH 3 ml RQ6 FLY Administration Dexmedetomidine HCl 200 mcg/ 50 mls @ 4.99 mls/hr 05/05/18 18:34 Sodium Chloride IV TITR PRN Agitation Protocol 0.2 MCG/KG/HR Piperacillin Sod/Tazobactam 100 mls @ 200 mls/hr 05/05/18 20:00 05/06/18 02:45 Sod 3.375 gm/ Sodium Chloride IVPB 200 mls/hr Q6H FLY Administration Protocol Vancomycin/Sodium Chloride 1 gm in 200 mls @ 133 mls/hr 05/05/18 20:30 05/06/18 02:15 Vancomycin 1 Gm/Ns 200 Ml IVPB 05/10/18 20:31 Not Given Q12H FLY Protocol Propofol 1,000 mg in 100 mls @ 2.994 mls/hr 05/05/18 20:19 Diprivan IV .Q24H PRN TITRATE PER MD ORDER Protocol 5 MCG/KG/MIN Dexmedetomidine HCl 200 mcg/ 50 mls @ 4.99 mls/hr 05/05/18 21:18 05/06/18 05:35 Sodium Chloride IV 0.22 mcg/kg/hr TITR PRN 5.49 mls/hr Agitation Administration Protocol 0.2 MCG/KG/HR Lactulose 20 gm 05/05/18 22:00 05/05/18 22:55 Enulose PO 20 gm Q12 FLY Administration Pantoprazole Sodium 40 mg 05/05/18 22:00 05/05/18 22:45 Protonix Inj IVP 40 mg Q12 FLY Administration - Patient Studies Lab Studies: Lab Studies 05/06/18 05/06/18 05/06/18 Range/Units 06:26 06:26 06:22 WBC 11.3 H (4.8-10.8) K/uL RBC 3.20 L (4.40-5.90) Mil/uL Hgb 7.2 L (12.0-18.0) g/dL Hct 23.1 L (35.0-51.0) % MCV 72.0 L (80.0-94.0) fL MCH 22.5 L (27.0-31.0) pg MCHC 31.2 L (33.0-37.0) g/dL RDW 22.8 H (11.5-14.5) % Plt Count 32 L (130-400) K/uL MPV 8.3 (7.2-11.7) fL Neut % (Auto) 86.4 H (50.0-75.0) % Lymph % (Auto) 9.0 L (20.0-40.0) % [place] % (Auto) 4.4 (0.0-10.0) % Eos % (Auto) 0.1 (0.0-4.0) % Baso % (Auto) 0.1 (0.0-2.0) % Neut # (Auto) 9.7 H (1.8-7.0) K/uL Lymph # (Auto) 1.0 (1.0-4.3) K/uL [place] # (Auto) 0.5 (0.0-0.8) K/uL Eos # (Auto) 0.0 (0.0-0.7) K/uL Baso # (Auto) 0.0 (0.0-0.2) K/uL Neutrophils % (Manual) (50-75) % Band Neutrophils % (0-2) % Lymphocytes % (Manual) (20-40) % Monocytes % (Manual) (0-10) % Platelet Estimate (NORMAL) Hypochromasia (manual) Poikilocytosis (manual Anisocytosis (manual) Target Cells Ovalocytes [place] Cells PT (9.7-12.2) SECONDS INR APTT (21-34) SECONDS Puncture Site pCO2 (35-45) mm/Hg pO2 (30-55) mm/Hg HCO3 (21-28) mmol/L ABG pH (7.35-7.45) ABG Total CO2 (22-28) mmol/L ABG O2 Saturation (95-98) % ABG Base Excess (-2.0-3.0) mmol/L ABG Hemoglobin (11.7-17.4) g/dL ABG Carboxyhemoglobin (0.5-1.5) % POC ABG HHb (Measured) (0.0-5.0) % ABG Methemoglobin (0.0-3.0) % Jeff Test ABG Potassium (3.6-5.2) mmol/L VBG pH (7.32-7.43) VBG pCO2 (40-60) mmHg VBG HCO3 mmol/L VBG Total CO2 (22-28) mmol/L VBG O2 Sat (Calc) (40-65) % VBG Base Excess (0.0-2.0) mmol/L VBG Potassium (3.6-5.2) mmol/L A-a O2 Difference mm/Hg Respiratory Index Hgb O2 Saturation (95.0-98.0) % Glucose (75-110) mg/dl Lactate (0.7-2.1) mmol/L Vent Mode Mechanical Rate FiO2 % Tidal Volume PEEP Crit Value Called To Crit Value Called By Crit Value Read Back Blood Gas Notified Time Sodium (132-148) mmol/L Potassium (3.6-5.2) mmol/L Chloride (98-107) mmol/L Carbon Dioxide (22-30) mmol/L Anion Gap (10-20) BUN (9-20) mg/dL Creatinine (0.8-1.5) mg/dL Est GFR ( Amer) Est GFR (Non-Af Amer) POC Glucose (mg/dL) (65-110) mg/dL Random Glucose (75-110) mg/dL Lactic Acid 1.3 (0.7-2.1) mmol/L Calcium (8.6-10.4) mg/dl Phosphorus (2.5-4.5) mg/dL Magnesium (1.6-2.3) mg/dL Total Bilirubin (0.2-1.3) mg/dL AST (17-59) U/L ALT (21-72) U/L Alkaline Phosphatase (38-126) U/L Ammonia (9-33) umol/L Total Creatine Kinase (55-170) U/L CK-MB (Mass) (0.0-3.38) ng/mL Troponin I (0.00-0.120) ng/mL NT-Pro-B Natriuret Pep (0-450) pg/mL Total Protein (6.3-8.3) g/dL Albumin (3.5-5.0) g/dL Globulin (2.2-3.9) gm/dL Albumin/Globulin Ratio (1.0-2.1) Lipase (23-300) U/L Arterial Blood Potassium (3.6-5.2) mmol/L Venous Blood Potassium (3.6-5.2) mmol/L Urine Color (YELLOW) Urine Clarity (Clear) Urine pH (5.0-8.0) Ur Specific [place] (1.003-1.030) Urine Protein (NEGATIVE) mg/dL Urine Glucose (UA) (Normal) mg/dL Urine Ketones (NEGATIVE) mg/dL Urine Blood (NEGATIVE) Urine Nitrate (NEGATIVE) Urine Bilirubin (NEGATIVE) Urine Urobilinogen (0.2-1.0) mg/dL Ur Leukocyte Esterase (Negative) Lexie/uL Urine WBC (Auto) (0-5) /hpf Urine RBC (Auto) (0-3) /hpf Ur Squamous Epith Cells (0-5) /hpf Urine Yeast (Budding) (NEGATIVE) /hpf Urine Opiates Screen (NEGATIVE) Urine Methadone Screen (NEGATIVE) Ur Barbiturates Screen (NEGATIVE) Ur Phencyclidine Scrn (NEGATIVE) Ur Amphetamines Screen (NEGATIVE) U Benzodiazepines Scrn (NEGATIVE) U Oth Cocaine Metabols (NEGATIVE) U Cannabinoids Screen (NEGATIVE) Alcohol, Quantitative (0-10) mg/dl Blood Type AB POSITIVE Antibody Screen 05/06/18 05/06/18 05/06/18 Range/Units 06:22 06:22 06:22 WBC (4.8-10.8) K/uL RBC (4.40-5.90) Mil/uL Hgb (12.0-18.0) g/dL Hct (35.0-51.0) % MCV (80.0-94.0) fL MCH (27.0-31.0) pg MCHC (33.0-37.0) g/dL RDW (11.5-14.5) % Plt Count (130-400) K/uL MPV (7.2-11.7) fL Neut % (Auto) (50.0-75.0) % Lymph % (Auto) (20.0-40.0) % [place] % (Auto) (0.0-10.0) % Eos % (Auto) (0.0-4.0) % Baso % (Auto) (0.0-2.0) % Neut # (Auto) (1.8-7.0) K/uL Lymph # (Auto) (1.0-4.3) K/uL [place] # (Auto) (0.0-0.8) K/uL Eos # (Auto) (0.0-0.7) K/uL Baso # (Auto) (0.0-0.2) K/uL Neutrophils % (Manual) (50-75) % Band Neutrophils % (0-2) % Lymphocytes % (Manual) (20-40) % Monocytes % (Manual) (0-10) % Platelet Estimate (NORMAL) Hypochromasia (manual) Poikilocytosis (manual Anisocytosis (manual) Target Cells Ovalocytes Pepe Cells PT 19.8 H (9.7-12.2) SECONDS INR 1.8 APTT 38 H (21-34) SECONDS Puncture Site pCO2 (35-45) mm/Hg pO2 (30-55) mm/Hg HCO3 (21-28) mmol/L ABG pH (7.35-7.45) ABG Total CO2 (22-28) mmol/L ABG O2 Saturation (95-98) % ABG Base Excess (-2.0-3.0) mmol/L ABG Hemoglobin (11.7-17.4) g/dL ABG Carboxyhemoglobin (0.5-1.5) % POC ABG HHb (Measured) (0.0-5.0) % ABG Methemoglobin (0.0-3.0) % Jeff Test ABG Potassium (3.6-5.2) mmol/L VBG pH (7.32-7.43) VBG pCO2 (40-60) mmHg VBG HCO3 mmol/L VBG Total CO2 (22-28) mmol/L VBG O2 Sat (Calc) (40-65) % VBG Base Excess (0.0-2.0) mmol/L VBG Potassium (3.6-5.2) mmol/L A-a O2 Difference mm/Hg Respiratory Index Hgb O2 Saturation (95.0-98.0) % Glucose (75-110) mg/dl Lactate (0.7-2.1) mmol/L Vent Mode Mechanical Rate FiO2 % Tidal Volume PEEP Crit Value Called To Crit Value Called By Crit Value Read Back Blood Gas Notified Time Sodium 138 (132-148) mmol/L Potassium 4.0 (3.6-5.2) mmol/L Chloride 110 H (98-107) mmol/L Carbon Dioxide 24 (22-30) mmol/L Anion Gap 9 L (10-20) BUN 15 (9-20) mg/dL Creatinine 0.9 (0.8-1.5) mg/dL Est GFR ( Amer) > 60 Est GFR (Non-Af Amer) > 60 POC Glucose (mg/dL) (65-110) mg/dL Random Glucose 125 H (75-110) mg/dL Lactic Acid (0.7-2.1) mmol/L Calcium 7.0 L (8.6-10.4) mg/dl Phosphorus 4.0 (2.5-4.5) mg/dL Magnesium 1.8 (1.6-2.3) mg/dL Total Bilirubin 1.1 (0.2-1.3) mg/dL AST 58 (17-59) U/L ALT 31 (21-72) U/L Alkaline Phosphatase 84 (38-126) U/L Ammonia 65 H D (9-33) umol/L Total Creatine Kinase 292 H (55-170) U/L CK-MB (Mass) 3.60 H (0.0-3.38) ng/mL Troponin I 0.1260 H* (0.00-0.120) ng/mL NT-Pro-B Natriuret Pep (0-450) pg/mL Total Protein 5.3 L (6.3-8.3) g/dL Albumin 2.0 L (3.5-5.0) g/dL Globulin 3.4 (2.2-3.9) gm/dL Albumin/Globulin Ratio 0.6 L (1.0-2.1) Lipase (23-300) U/L Arterial Blood Potassium (3.6-5.2) mmol/L Venous Blood Potassium (3.6-5.2) mmol/L Urine Color (YELLOW) Urine Clarity (Clear) Urine pH (5.0-8.0) Ur Specific [place] (1.003-1.030) Urine Protein (NEGATIVE) mg/dL Urine Glucose (UA) (Normal) mg/dL Urine Ketones (NEGATIVE) mg/dL Urine Blood (NEGATIVE) Urine Nitrate (NEGATIVE) Urine Bilirubin (NEGATIVE) Urine Urobilinogen (0.2-1.0) mg/dL Ur Leukocyte Esterase (Negative) Lexie/uL Urine WBC (Auto) (0-5) /hpf Urine RBC (Auto) (0-3) /hpf Ur Squamous Epith Cells (0-5) /hpf Urine Yeast (Budding) (NEGATIVE) /hpf Urine Opiates Screen (NEGATIVE) Urine Methadone Screen (NEGATIVE) Ur Barbiturates Screen (NEGATIVE) Ur Phencyclidine Scrn (NEGATIVE) Ur Amphetamines Screen (NEGATIVE) U Benzodiazepines Scrn (NEGATIVE) U Oth Cocaine Metabols (NEGATIVE) U Cannabinoids Screen (NEGATIVE) Alcohol, Quantitative (0-10) mg/dl Blood Type Antibody Screen 05/06/18 05/06/18 05/06/18 Range/Units 05:48 04:20 03:28 WBC 14.6 H (4.8-10.8) K/uL RBC 3.51 L (4.40-5.90) Mil/uL Hgb 7.7 L (12.0-18.0) g/dL Hct 25.6 L (35.0-51.0) % MCV 72.9 L (80.0-94.0) fL MCH 22.0 L (27.0-31.0) pg MCHC 30.1 L (33.0-37.0) g/dL RDW 22.4 H (11.5-14.5) % Plt Count 36 L D (130-400) K/uL MPV 8.4 (7.2-11.7) fL Neut % (Auto) 90.3 H (50.0-75.0) % Lymph % (Auto) 5.6 L (20.0-40.0) % [place] % (Auto) 3.5 (0.0-10.0) % Eos % (Auto) 0.0 (0.0-4.0) % Baso % (Auto) 0.6 (0.0-2.0) % Neut # (Auto) 13.2 H (1.8-7.0) K/uL Lymph # (Auto) 0.8 L (1.0-4.3) K/uL [place] # (Auto) 0.5 (0.0-0.8) K/uL Eos # (Auto) 0.0 (0.0-0.7) K/uL Baso # (Auto) 0.1 (0.0-0.2) K/uL Neutrophils % (Manual) (50-75) % Band Neutrophils % (0-2) % Lymphocytes % (Manual) (20-40) % Monocytes % (Manual) (0-10) % Platelet Estimate (NORMAL) Hypochromasia (manual) Poikilocytosis (manual Anisocytosis (manual) Target Cells Ovalocytes [place] Cells PT (9.7-12.2) SECONDS INR APTT (21-34) SECONDS Puncture Site Rr pCO2 31 L (35-45) mm/Hg pO2 121 H (30-55) mm/Hg HCO3 24.3 (21-28) mmol/L ABG pH 7.46 H (7.35-7.45) ABG Total CO2 23.0 (22-28) mmol/L ABG O2 Saturation 99.4 H (95-98) % ABG Base Excess -0.9 (-2.0-3.0) mmol/L ABG Hemoglobin (11.7-17.4) g/dL ABG Carboxyhemoglobin (0.5-1.5) % POC ABG HHb (Measured) (0.0-5.0) % ABG Methemoglobin (0.0-3.0) % Jeff Test Pos ABG Potassium 3.6 (3.6-5.2) mmol/L VBG pH (7.32-7.43) VBG pCO2 (40-60) mmHg VBG HCO3 mmol/L VBG Total CO2 (22-28) mmol/L VBG O2 Sat (Calc) (40-65) % VBG Base Excess (0.0-2.0) mmol/L VBG Potassium (3.6-5.2) mmol/L A-a O2 Difference 125.0 mm/Hg Respiratory Index 1.0 Hgb O2 Saturation (95.0-98.0) % Glucose 123 H (75-110) mg/dl Lactate 1.3 (0.7-2.1) mmol/L Vent Mode Prvc Mechanical Rate 20 FiO2 40.0 % Tidal Volume 500 PEEP 5 Crit Value Called To Crit Value Called By Crit Value Read Back Blood Gas Notified Time Sodium 143.0 (132-148) mmol/L Potassium (3.6-5.2) mmol/L Chloride 117.0 H (98-107) mmol/L Carbon Dioxide (22-30) mmol/L Anion Gap (10-20) BUN (9-20) mg/dL Creatinine (0.8-1.5) mg/dL Est GFR ( Amer) Est GFR (Non-Af Amer) POC Glucose (mg/dL) 108 (65-110) mg/dL Random Glucose (75-110) mg/dL Lactic Acid (0.7-2.1) mmol/L Calcium (8.6-10.4) mg/dl Phosphorus (2.5-4.5) mg/dL Magnesium (1.6-2.3) mg/dL Total Bilirubin (0.2-1.3) mg/dL AST (17-59) U/L ALT (21-72) U/L Alkaline Phosphatase (38-126) U/L Ammonia (9-33) umol/L Total Creatine Kinase (55-170) U/L CK-MB (Mass) (0.0-3.38) ng/mL Troponin I (0.00-0.120) ng/mL NT-Pro-B Natriuret Pep (0-450) pg/mL Total Protein (6.3-8.3) g/dL Albumin (3.5-5.0) g/dL Globulin (2.2-3.9) gm/dL Albumin/Globulin Ratio (1.0-2.1) Lipase (23-300) U/L Arterial Blood Potassium 3.6 (3.6-5.2) mmol/L Venous Blood Potassium (3.6-5.2) mmol/L Urine Color (YELLOW) Urine Clarity (Clear) Urine pH (5.0-8.0) Ur Specific [place] (1.003-1.030) Urine Protein (NEGATIVE) mg/dL Urine Glucose (UA) (Normal) mg/dL Urine Ketones (NEGATIVE) mg/dL Urine Blood (NEGATIVE) Urine Nitrate (NEGATIVE) Urine Bilirubin (NEGATIVE) Urine Urobilinogen (0.2-1.0) mg/dL Ur Leukocyte Esterase (Negative) Lexie/uL Urine WBC (Auto) (0-5) /hpf Urine RBC (Auto) (0-3) /hpf Ur Squamous Epith Cells (0-5) /hpf Urine Yeast (Budding) (NEGATIVE) /hpf Urine Opiates Screen (NEGATIVE) Urine Methadone Screen (NEGATIVE) Ur Barbiturates Screen (NEGATIVE) Ur Phencyclidine Scrn (NEGATIVE) Ur Amphetamines Screen (NEGATIVE) U Benzodiazepines Scrn (NEGATIVE) U Oth Cocaine Metabols (NEGATIVE) U Cannabinoids Screen (NEGATIVE) Alcohol, Quantitative (0-10) mg/dl Blood Type Antibody Screen 05/06/18 05/06/18 05/06/18 Range/Units 03:26 03:26 01:01 WBC (4.8-10.8) K/uL RBC (4.40-5.90) Mil/uL Hgb (12.0-18.0) g/dL Hct (35.0-51.0) % MCV (80.0-94.0) fL MCH (27.0-31.0) pg MCHC (33.0-37.0) g/dL RDW (11.5-14.5) % Plt Count (130-400) K/uL MPV (7.2-11.7) fL Neut % (Auto) (50.0-75.0) % Lymph % (Auto) (20.0-40.0) % [place] % (Auto) (0.0-10.0) % Eos % (Auto) (0.0-4.0) % Baso % (Auto) (0.0-2.0) % Neut # (Auto) (1.8-7.0) K/uL Lymph # (Auto) (1.0-4.3) K/uL [place] # (Auto) (0.0-0.8) K/uL Eos # (Auto) (0.0-0.7) K/uL Baso # (Auto) (0.0-0.2) K/uL Neutrophils % (Manual) (50-75) % Band Neutrophils % (0-2) % Lymphocytes % (Manual) (20-40) % Monocytes % (Manual) (0-10) % Platelet Estimate (NORMAL) Hypochromasia (manual) Poikilocytosis (manual Anisocytosis (manual) Target Cells Ovalocytes [place] Cells PT (9.7-12.2) SECONDS INR APTT (21-34) SECONDS Puncture Site pCO2 (35-45) mm/Hg pO2 (30-55) mm/Hg HCO3 (21-28) mmol/L ABG pH (7.35-7.45) ABG Total CO2 (22-28) mmol/L ABG O2 Saturation (95-98) % ABG Base Excess (-2.0-3.0) mmol/L ABG Hemoglobin (11.7-17.4) g/dL ABG Carboxyhemoglobin (0.5-1.5) % POC ABG HHb (Measured) (0.0-5.0) % ABG Methemoglobin (0.0-3.0) % Jeff Test ABG Potassium (3.6-5.2) mmol/L VBG pH (7.32-7.43) VBG pCO2 (40-60) mmHg VBG HCO3 mmol/L VBG Total CO2 (22-28) mmol/L VBG O2 Sat (Calc) (40-65) % VBG Base Excess (0.0-2.0) mmol/L VBG Potassium (3.6-5.2) mmol/L A-a O2 Difference mm/Hg Respiratory Index Hgb O2 Saturation (95.0-98.0) % Glucose (75-110) mg/dl Lactate (0.7-2.1) mmol/L Vent Mode Mechanical Rate FiO2 % Tidal Volume PEEP Crit Value Called To Crit Value Called By Crit Value Read Back Blood Gas Notified Time Sodium (132-148) mmol/L Potassium (3.6-5.2) mmol/L Chloride (98-107) mmol/L Carbon Dioxide (22-30) mmol/L Anion Gap (10-20) BUN (9-20) mg/dL Creatinine (0.8-1.5) mg/dL Est GFR ( Amer) Est GFR (Non-Af Amer) POC Glucose (mg/dL) (65-110) mg/dL Random Glucose (75-110) mg/dL Lactic Acid (0.7-2.1) mmol/L Calcium (8.6-10.4) mg/dl Phosphorus (2.5-4.5) mg/dL Magnesium (1.6-2.3) mg/dL Total Bilirubin (0.2-1.3) mg/dL AST (17-59) U/L ALT (21-72) U/L Alkaline Phosphatase (38-126) U/L Ammonia (9-33) umol/L Total Creatine Kinase 499 H (55-170) U/L CK-MB (Mass) 6.48 H (0.0-3.38) ng/mL Troponin I 0.1380 H* (0.00-0.120) ng/mL NT-Pro-B Natriuret Pep (0-450) pg/mL Total Protein (6.3-8.3) g/dL Albumin (3.5-5.0) g/dL Globulin (2.2-3.9) gm/dL Albumin/Globulin Ratio (1.0-2.1) Lipase (23-300) U/L Arterial Blood Potassium (3.6-5.2) mmol/L Venous Blood Potassium (3.6-5.2) mmol/L Urine Color [place] (YELLOW) Urine Clarity Clear (Clear) Urine pH 5.0 (5.0-8.0) Ur Specific [place] 1.025 (1.003-1.030) Urine Protein 3+ H (NEGATIVE) mg/dL Urine Glucose (UA) Normal (Normal) mg/dL Urine Ketones Negative (NEGATIVE) mg/dL Urine Blood 3+ H (NEGATIVE) Urine Nitrate Negative (NEGATIVE) Urine Bilirubin Negative (NEGATIVE) Urine Urobilinogen 2.0 (0.2-1.0) mg/dL Ur Leukocyte Esterase Neg (Negative) Lexie/uL Urine WBC (Auto) 9 H (0-5) /hpf Urine RBC (Auto) 707 H (0-3) /hpf Ur Squamous Epith Cells 1 (0-5) /hpf Urine Yeast (Budding) Few H (NEGATIVE) /hpf Urine Opiates Screen Negative (NEGATIVE) Urine Methadone Screen Negative (NEGATIVE) Ur Barbiturates Screen Negative (NEGATIVE) Ur Phencyclidine Scrn Negative (NEGATIVE) Ur Amphetamines Screen Negative (NEGATIVE) U Benzodiazepines Scrn Negative (NEGATIVE) U Oth Cocaine Metabols Negative (NEGATIVE) U Cannabinoids Screen Negative (NEGATIVE) Alcohol, Quantitative (0-10) mg/dl Blood Type Antibody Screen 05/06/18 05/06/18 05/05/18 Range/Units 01:01 01:01 23:33 WBC (4.8-10.8) K/uL RBC (4.40-5.90) Mil/uL Hgb (12.0-18.0) g/dL Hct (35.0-51.0) % MCV (80.0-94.0) fL MCH (27.0-31.0) pg MCHC (33.0-37.0) g/dL RDW (11.5-14.5) % Plt Count (130-400) K/uL MPV (7.2-11.7) fL Neut % (Auto) (50.0-75.0) % Lymph % (Auto) (20.0-40.0) % [place] % (Auto) (0.0-10.0) % Eos % (Auto) (0.0-4.0) % Baso % (Auto) (0.0-2.0) % Neut # (Auto) (1.8-7.0) K/uL Lymph # (Auto) (1.0-4.3) K/uL [place] # (Auto) (0.0-0.8) K/uL Eos # (Auto) (0.0-0.7) K/uL Baso # (Auto) (0.0-0.2) K/uL Neutrophils % (Manual) (50-75) % Band Neutrophils % (0-2) % Lymphocytes % (Manual) (20-40) % Monocytes % (Manual) (0-10) % Platelet Estimate (NORMAL) Hypochromasia (manual) Poikilocytosis (manual Anisocytosis (manual) Target Cells Ovalocytes Pepe Cells PT (9.7-12.2) SECONDS INR APTT (21-34) SECONDS Puncture Site pCO2 (35-45) mm/Hg pO2 (30-55) mm/Hg HCO3 (21-28) mmol/L ABG pH (7.35-7.45) ABG Total CO2 (22-28) mmol/L ABG O2 Saturation (95-98) % ABG Base Excess (-2.0-3.0) mmol/L ABG Hemoglobin (11.7-17.4) g/dL ABG Carboxyhemoglobin (0.5-1.5) % POC ABG HHb (Measured) (0.0-5.0) % ABG Methemoglobin (0.0-3.0) % Jeff Test ABG Potassium (3.6-5.2) mmol/L VBG pH (7.32-7.43) VBG pCO2 (40-60) mmHg VBG HCO3 mmol/L VBG Total CO2 (22-28) mmol/L VBG O2 Sat (Calc) (40-65) % VBG Base Excess (0.0-2.0) mmol/L VBG Potassium (3.6-5.2) mmol/L A-a O2 Difference mm/Hg Respiratory Index Hgb O2 Saturation (95.0-98.0) % Glucose (75-110) mg/dl Lactate (0.7-2.1) mmol/L Vent Mode Mechanical Rate FiO2 % Tidal Volume PEEP Crit Value Called To Crit Value Called By Crit Value Read Back Blood Gas Notified Time Sodium 141 (132-148) mmol/L Potassium 4.2 (3.6-5.2) mmol/L Chloride 108 H (98-107) mmol/L Carbon Dioxide 24 (22-30) mmol/L Anion Gap 13 (10-20) BUN 13 (9-20) mg/dL Creatinine 0.9 (0.8-1.5) mg/dL Est GFR ( Amer) > 60 Est GFR (Non-Af Amer) > 60 POC Glucose (mg/dL) 127 H (65-110) mg/dL Random Glucose 123 H (75-110) mg/dL Lactic Acid 2.5 H (0.7-2.1) mmol/L Calcium 7.4 L (8.6-10.4) mg/dl Phosphorus 4.3 (2.5-4.5) mg/dL Magnesium 1.4 L (1.6-2.3) mg/dL Total Bilirubin 1.3 (0.2-1.3) mg/dL AST 79 H (17-59) U/L ALT 38 (21-72) U/L Alkaline Phosphatase 92 (38-126) U/L Ammonia (9-33) umol/L Total Creatine Kinase (55-170) U/L CK-MB (Mass) (0.0-3.38) ng/mL Troponin I (0.00-0.120) ng/mL NT-Pro-B Natriuret Pep (0-450) pg/mL Total Protein 6.3 (6.3-8.3) g/dL Albumin 2.4 L (3.5-5.0) g/dL Globulin 3.9 (2.2-3.9) gm/dL Albumin/Globulin Ratio 0.6 L (1.0-2.1) Lipase (23-300) U/L Arterial Blood Potassium (3.6-5.2) mmol/L Venous Blood Potassium (3.6-5.2) mmol/L Urine Color (YELLOW) Urine Clarity (Clear) Urine pH (5.0-8.0) Ur Specific [place] (1.003-1.030) Urine Protein (NEGATIVE) mg/dL Urine Glucose (UA) (Normal) mg/dL Urine Ketones (NEGATIVE) mg/dL Urine Blood (NEGATIVE) Urine Nitrate (NEGATIVE) Urine Bilirubin (NEGATIVE) Urine Urobilinogen (0.2-1.0) mg/dL Ur Leukocyte Esterase (Negative) Lexie/uL Urine WBC (Auto) (0-5) /hpf Urine RBC (Auto) (0-3) /hpf Ur Squamous Epith Cells (0-5) /hpf Urine Yeast (Budding) (NEGATIVE) /hpf Urine Opiates Screen (NEGATIVE) Urine Methadone Screen (NEGATIVE) Ur Barbiturates Screen (NEGATIVE) Ur Phencyclidine Scrn (NEGATIVE) Ur Amphetamines Screen (NEGATIVE) U Benzodiazepines Scrn (NEGATIVE) U Oth Cocaine Metabols (NEGATIVE) U Cannabinoids Screen (NEGATIVE) Alcohol, Quantitative (0-10) mg/dl Blood Type Antibody Screen 05/05/18 05/05/18 05/05/18 Range/Units 21:50 19:25 17:47 WBC (4.8-10.8) K/uL RBC (4.40-5.90) Mil/uL Hgb (12.0-18.0) g/dL Hct (35.0-51.0) % MCV (80.0-94.0) fL MCH (27.0-31.0) pg MCHC (33.0-37.0) g/dL RDW (11.5-14.5) % Plt Count (130-400) K/uL MPV (7.2-11.7) fL Neut % (Auto) (50.0-75.0) % Lymph % (Auto) (20.0-40.0) % [place] % (Auto) (0.0-10.0) % Eos % (Auto) (0.0-4.0) % Baso % (Auto) (0.0-2.0) % Neut # (Auto) (1.8-7.0) K/uL Lymph # (Auto) (1.0-4.3) K/uL [place] # (Auto) (0.0-0.8) K/uL Eos # (Auto) (0.0-0.7) K/uL Baso # (Auto) (0.0-0.2) K/uL Neutrophils % (Manual) (50-75) % Band Neutrophils % (0-2) % Lymphocytes % (Manual) (20-40) % Monocytes % (Manual) (0-10) % Platelet Estimate (NORMAL) Hypochromasia (manual) Poikilocytosis (manual Anisocytosis (manual) Target Cells Ovalocytes Pepe Cells PT (9.7-12.2) SECONDS INR APTT (21-34) SECONDS Puncture Site Rba Rr pCO2 42 77 H* (35-45) mm/Hg pO2 77 L 116 H 22 L (30-55) mm/Hg HCO3 22.6 15.3 L (21-28) mmol/L ABG pH 7.34 L 7.02 L* (7.35-7.45) ABG Total CO2 24.0 22.3 (22-28) mmol/L ABG O2 Saturation 97.1 97.7 (95-98) % ABG Base Excess -2.9 L -12.3 L (-2.0-3.0) mmol/L ABG Hemoglobin 8.5 L (11.7-17.4) g/dL ABG Carboxyhemoglobin 2.7 H (0.5-1.5) % POC ABG HHb (Measured) 2.8 (0.0-5.0) % ABG Methemoglobin 1.1 (0.0-3.0) % Jeff Test Na Yes ABG Potassium 4.1 (3.6-5.2) mmol/L VBG pH 7.42 (7.32-7.43) VBG pCO2 30 L (40-60) mmHg VBG HCO3 20.3 mmol/L VBG Total CO2 20.4 L (22-28) mmol/L VBG O2 Sat (Calc) 34.1 L (40-65) % VBG Base Excess -3.9 L (0.0-2.0) mmol/L VBG Potassium 4.0 (3.6-5.2) mmol/L A-a O2 Difference 156.0 73.0 mm/Hg Respiratory Index 2.0 0.6 Hgb O2 Saturation 93.4 L (95.0-98.0) % Glucose 114 H 102 (75-110) mg/dl Lactate 5.1 H* 6.4 H* (0.7-2.1) mmol/L Vent Mode Prvc Mechanical Rate 20 FiO2 40.0 40.0 % Tidal Volume 500 PEEP 5 Crit Value Called To Ed rn Dr alexandra Crit Value Called By Annemarie johnston Crit Value Read Back Y Y Blood Gas Notified Time 1954 1749 Sodium 142.0 142.0 (132-148) mmol/L Potassium (3.6-5.2) mmol/L Chloride 109.0 H 110.0 H (98-107) mmol/L Carbon Dioxide (22-30) mmol/L Anion Gap (10-20) BUN (9-20) mg/dL Creatinine (0.8-1.5) mg/dL Est GFR ( Amer) Est GFR (Non-Af Amer) POC Glucose (mg/dL) (65-110) mg/dL Random Glucose (75-110) mg/dL Lactic Acid (0.7-2.1) mmol/L Calcium (8.6-10.4) mg/dl Phosphorus (2.5-4.5) mg/dL Magnesium (1.6-2.3) mg/dL Total Bilirubin (0.2-1.3) mg/dL AST (17-59) U/L ALT (21-72) U/L Alkaline Phosphatase (38-126) U/L Ammonia (9-33) umol/L Total Creatine Kinase (55-170) U/L CK-MB (Mass) (0.0-3.38) ng/mL Troponin I (0.00-0.120) ng/mL NT-Pro-B Natriuret Pep (0-450) pg/mL Total Protein (6.3-8.3) g/dL Albumin (3.5-5.0) g/dL Globulin (2.2-3.9) gm/dL Albumin/Globulin Ratio (1.0-2.1) Lipase (23-300) U/L Arterial Blood Potassium 4.1 (3.6-5.2) mmol/L Venous Blood Potassium 4.0 (3.6-5.2) mmol/L Urine Color (YELLOW) Urine Clarity (Clear) Urine pH (5.0-8.0) Ur Specific [place] (1.003-1.030) Urine Protein (NEGATIVE) mg/dL Urine Glucose (UA) (Normal) mg/dL Urine Ketones (NEGATIVE) mg/dL Urine Blood (NEGATIVE) Urine Nitrate (NEGATIVE) Urine Bilirubin (NEGATIVE) Urine Urobilinogen (0.2-1.0) mg/dL Ur Leukocyte Esterase (Negative) Lexie/uL Urine WBC (Auto) (0-5) /hpf Urine RBC (Auto) (0-3) /hpf Ur Squamous Epith Cells (0-5) /hpf Urine Yeast (Budding) (NEGATIVE) /hpf Urine Opiates Screen (NEGATIVE) Urine Methadone Screen (NEGATIVE) Ur Barbiturates Screen (NEGATIVE) Ur Phencyclidine Scrn (NEGATIVE) Ur Amphetamines Screen (NEGATIVE) U Benzodiazepines Scrn (NEGATIVE) U Oth Cocaine Metabols (NEGATIVE) U Cannabinoids Screen (NEGATIVE) Alcohol, Quantitative (0-10) mg/dl Blood Type Antibody Screen 05/05/18 05/05/18 05/05/18 Range/Units 17:45 16:00 15:57 WBC (4.8-10.8) K/uL RBC (4.40-5.90) Mil/uL Hgb (12.0-18.0) g/dL Hct (35.0-51.0) % MCV (80.0-94.0) fL MCH (27.0-31.0) pg MCHC (33.0-37.0) g/dL RDW (11.5-14.5) % Plt Count (130-400) K/uL MPV (7.2-11.7) fL Neut % (Auto) (50.0-75.0) % Lymph % (Auto) (20.0-40.0) % [place] % (Auto) (0.0-10.0) % Eos % (Auto) (0.0-4.0) % Baso % (Auto) (0.0-2.0) % Neut # (Auto) (1.8-7.0) K/uL Lymph # (Auto) (1.0-4.3) K/uL [place] # (Auto) (0.0-0.8) K/uL Eos # (Auto) (0.0-0.7) K/uL Baso # (Auto) (0.0-0.2) K/uL Neutrophils % (Manual) (50-75) % Band Neutrophils % (0-2) % Lymphocytes % (Manual) (20-40) % Monocytes % (Manual) (0-10) % Platelet Estimate (NORMAL) Hypochromasia (manual) Poikilocytosis (manual Anisocytosis (manual) Target Cells Ovalocytes [place] Cells PT 15.8 H (9.7-12.2) SECONDS INR 1.4 APTT 37 H (21-34) SECONDS Puncture Site pCO2 (35-45) mm/Hg pO2 42 (30-55) mm/Hg HCO3 (21-28) mmol/L ABG pH (7.35-7.45) ABG Total CO2 (22-28) mmol/L ABG O2 Saturation (95-98) % ABG Base Excess (-2.0-3.0) mmol/L ABG Hemoglobin (11.7-17.4) g/dL ABG Carboxyhemoglobin (0.5-1.5) % POC ABG HHb (Measured) (0.0-5.0) % ABG Methemoglobin (0.0-3.0) % Jeff Test ABG Potassium (3.6-5.2) mmol/L VBG pH 7.42 (7.32-7.43) VBG pCO2 25 L (40-60) mmHg VBG HCO3 19.3 mmol/L VBG Total CO2 17.0 L (22-28) mmol/L VBG O2 Sat (Calc) 77.2 H (40-65) % VBG Base Excess -6.5 L (0.0-2.0) mmol/L VBG Potassium 4.0 (3.6-5.2) mmol/L A-a O2 Difference mm/Hg Respiratory Index Hgb O2 Saturation (95.0-98.0) % Glucose 110 (75-110) mg/dl Lactate 6.5 H* (0.7-2.1) mmol/L Vent Mode Mechanical Rate FiO2 % Tidal Volume PEEP Crit Value Called To Dr. alexandra Crit Value Called By Jasvir johnston Crit Value Read Back Y Blood Gas Notified Time 1603 Sodium 143.0 (132-148) mmol/L Potassium (3.6-5.2) mmol/L Chloride 113.0 H (98-107) mmol/L Carbon Dioxide (22-30) mmol/L Anion Gap (10-20) BUN (9-20) mg/dL Creatinine (0.8-1.5) mg/dL Est GFR ( Amer) Est GFR (Non-Af Amer) POC Glucose (mg/dL) (65-110) mg/dL Random Glucose (75-110) mg/dL Lactic Acid (0.7-2.1) mmol/L Calcium (8.6-10.4) mg/dl Phosphorus (2.5-4.5) mg/dL Magnesium (1.6-2.3) mg/dL Total Bilirubin (0.2-1.3) mg/dL AST (17-59) U/L ALT (21-72) U/L Alkaline Phosphatase (38-126) U/L Ammonia (9-33) umol/L Total Creatine Kinase (55-170) U/L CK-MB (Mass) (0.0-3.38) ng/mL Troponin I (0.00-0.120) ng/mL NT-Pro-B Natriuret Pep (0-450) pg/mL Total Protein (6.3-8.3) g/dL Albumin (3.5-5.0) g/dL Globulin (2.2-3.9) gm/dL Albumin/Globulin Ratio (1.0-2.1) Lipase (23-300) U/L Arterial Blood Potassium (3.6-5.2) mmol/L Venous Blood Potassium 4.0 (3.6-5.2) mmol/L Urine Color (YELLOW) Urine Clarity (Clear) Urine pH (5.0-8.0) Ur Specific [place] (1.003-1.030) Urine Protein (NEGATIVE) mg/dL Urine Glucose (UA) (Normal) mg/dL Urine Ketones (NEGATIVE) mg/dL Urine Blood (NEGATIVE) Urine Nitrate (NEGATIVE) Urine Bilirubin (NEGATIVE) Urine Urobilinogen (0.2-1.0) mg/dL Ur Leukocyte Esterase (Negative) Lexie/uL Urine WBC (Auto) (0-5) /hpf Urine RBC (Auto) (0-3) /hpf Ur Squamous Epith Cells (0-5) /hpf Urine Yeast (Budding) (NEGATIVE) /hpf Urine Opiates Screen (NEGATIVE) Urine Methadone Screen (NEGATIVE) Ur Barbiturates Screen (NEGATIVE) Ur Phencyclidine Scrn (NEGATIVE) Ur Amphetamines Screen (NEGATIVE) U Benzodiazepines Scrn (NEGATIVE) U Oth Cocaine Metabols (NEGATIVE) U Cannabinoids Screen (NEGATIVE) Alcohol, Quantitative (0-10) mg/dl Blood Type AB POSITIVE Antibody Screen Negative 05/05/18 05/05/18 05/05/18 Range/Units 15:57 15:57 14:47 WBC 21.5 H D (4.8-10.8) K/uL RBC 4.02 L (4.40-5.90) Mil/uL Hgb 9.1 L (12.0-18.0) g/dL Hct 29.6 L (35.0-51.0) % MCV 73.8 L (80.0-94.0) fL MCH 22.6 L (27.0-31.0) pg MCHC 30.6 L (33.0-37.0) g/dL RDW 22.8 H (11.5-14.5) % Plt Count 56 L D (130-400) K/uL MPV 8.4 (7.2-11.7) fL Neut % (Auto) 93.8 H (50.0-75.0) % Lymph % (Auto) 2.1 L (20.0-40.0) % [place] % (Auto) 3.9 (0.0-10.0) % Eos % (Auto) 0.0 (0.0-4.0) % Baso % (Auto) 0.2 (0.0-2.0) % Neut # (Auto) 20.2 H (1.8-7.0) K/uL Lymph # (Auto) 0.5 L (1.0-4.3) K/uL [place] # (Auto) 0.8 (0.0-0.8) K/uL Eos # (Auto) 0.0 (0.0-0.7) K/uL Baso # (Auto) 0.0 (0.0-0.2) K/uL Neutrophils % (Manual) 79 H (50-75) % Band Neutrophils % 17 H* (0-2) % Lymphocytes % (Manual) 1 L (20-40) % Monocytes % (Manual) 3 (0-10) % Platelet Estimate Decreased L (NORMAL) Hypochromasia (manual) Slight Poikilocytosis (manual Slight Anisocytosis (manual) Slight Target Cells Slight Ovalocytes Slight Pepe Cells Slight PT (9.7-12.2) SECONDS INR APTT (21-34) SECONDS Puncture Site pCO2 (35-45) mm/Hg pO2 (30-55) mm/Hg HCO3 (21-28) mmol/L ABG pH (7.35-7.45) ABG Total CO2 (22-28) mmol/L ABG O2 Saturation (95-98) % ABG Base Excess (-2.0-3.0) mmol/L ABG Hemoglobin (11.7-17.4) g/dL ABG Carboxyhemoglobin (0.5-1.5) % POC ABG HHb (Measured) (0.0-5.0) % ABG Methemoglobin (0.0-3.0) % Jeff Test ABG Potassium (3.6-5.2) mmol/L VBG pH (7.32-7.43) VBG pCO2 (40-60) mmHg VBG HCO3 mmol/L VBG Total CO2 (22-28) mmol/L VBG O2 Sat (Calc) (40-65) % VBG Base Excess (0.0-2.0) mmol/L VBG Potassium (3.6-5.2) mmol/L A-a O2 Difference mm/Hg Respiratory Index Hgb O2 Saturation (95.0-98.0) % Glucose (75-110) mg/dl Lactate (0.7-2.1) mmol/L Vent Mode Mechanical Rate FiO2 % Tidal Volume PEEP Crit Value Called To Crit Value Called By Crit Value Read Back Blood Gas Notified Time Sodium 140 (132-148) mmol/L Potassium 4.1 (3.6-5.2) mmol/L Chloride 107 (98-107) mmol/L Carbon Dioxide 18 L (22-30) mmol/L Anion Gap 19 (10-20) BUN 11 (9-20) mg/dL Creatinine 0.8 (0.8-1.5) mg/dL Est GFR ( Amer) > 60 Est GFR (Non-Af Amer) > 60 POC Glucose (mg/dL) 135 H (65-110) mg/dL Random Glucose 120 H (75-110) mg/dL Lactic Acid (0.7-2.1) mmol/L Calcium 7.8 L (8.6-10.4) mg/dl Phosphorus 4.5 (2.5-4.5) mg/dL Magnesium 1.4 L (1.6-2.3) mg/dL Total Bilirubin 1.6 H (0.2-1.3) mg/dL AST 86 H D (17-59) U/L ALT 34 (21-72) U/L Alkaline Phosphatase 135 H D (38-126) U/L Ammonia (9-33) umol/L Total Creatine Kinase 710 H (55-170) U/L CK-MB (Mass) (0.0-3.38) ng/mL Troponin I 0.1340 H* (0.00-0.120) ng/mL NT-Pro-B Natriuret Pep 5130 H (0-450) pg/mL Total Protein 7.1 (6.3-8.3) g/dL Albumin 2.8 L (3.5-5.0) g/dL Globulin 4.3 H (2.2-3.9) gm/dL Albumin/Globulin Ratio 0.7 L (1.0-2.1) Lipase 229 (23-300) U/L Arterial Blood Potassium (3.6-5.2) mmol/L Venous Blood Potassium (3.6-5.2) mmol/L Urine Color (YELLOW) Urine Clarity (Clear) Urine pH (5.0-8.0) Ur Specific [place] (1.003-1.030) Urine Protein (NEGATIVE) mg/dL Urine Glucose (UA) (Normal) mg/dL Urine Ketones (NEGATIVE) mg/dL Urine Blood (NEGATIVE) Urine Nitrate (NEGATIVE) Urine Bilirubin (NEGATIVE) Urine Urobilinogen (0.2-1.0) mg/dL Ur Leukocyte Esterase (Negative) Lexie/uL Urine WBC (Auto) (0-5) /hpf Urine RBC (Auto) (0-3) /hpf Ur Squamous Epith Cells (0-5) /hpf Urine Yeast (Budding) (NEGATIVE) /hpf Urine Opiates Screen (NEGATIVE) Urine Methadone Screen (NEGATIVE) Ur Barbiturates Screen (NEGATIVE) Ur Phencyclidine Scrn (NEGATIVE) Ur Amphetamines Screen (NEGATIVE) U Benzodiazepines Scrn (NEGATIVE) U Oth Cocaine Metabols (NEGATIVE) U Cannabinoids Screen (NEGATIVE) Alcohol, Quantitative 52 H (0-10) mg/dl Blood Type Antibody Screen Laboratory Results - last 24 hr 05/05/18 05/05/18 05/05/18 14:47 15:57 15:57 WBC 21.5 H D RBC 4.02 L Hgb 9.1 L Hct 29.6 L MCV 73.8 L MCH 22.6 L MCHC 30.6 L RDW 22.8 H Plt Count 56 L D MPV 8.4 Neut % (Auto) 93.8 H Lymph % (Auto) 2.1 L [place] % (Auto) 3.9 Eos % (Auto) 0.0 Baso % (Auto) 0.2 Neut # (Auto) 20.2 H Lymph # (Auto) 0.5 L [place] # (Auto) 0.8 Eos # (Auto) 0.0 Baso # (Auto) 0.0 Neutrophils % (Manual) 79 H Band Neutrophils % 17 H* Lymphocytes % (Manual) 1 L Monocytes % (Manual) 3 Platelet Estimate Decreased L Hypochromasia (manual) Slight Poikilocytosis (manual Slight Anisocytosis (manual) Slight Target Cells Slight Ovalocytes Slight [place] Cells Slight PT INR APTT Puncture Site pCO2 pO2 HCO3 ABG pH ABG Total CO2 ABG O2 Saturation ABG Base Excess ABG Hemoglobin ABG Carboxyhemoglobin POC ABG HHb (Measured) ABG Methemoglobin Jeff Test ABG Potassium VBG pH VBG pCO2 VBG HCO3 VBG Total CO2 VBG O2 Sat (Calc) VBG Base Excess VBG Potassium A-a O2 Difference Respiratory Index Hgb O2 Saturation Glucose Lactate Vent Mode Mechanical Rate FiO2 Tidal Volume PEEP Crit Value Called To Crit Value Called By Crit Value Read Back Blood Gas Notified Time Sodium 140 Potassium 4.1 Chloride 107 Carbon Dioxide 18 L Anion Gap 19 BUN 11 Creatinine 0.8 Est GFR ( Amer) > 60 Est GFR (Non-Af Amer) > 60 POC Glucose (mg/dL) 135 H Random Glucose 120 H Lactic Acid Calcium 7.8 L Phosphorus 4.5 Magnesium 1.4 L Total Bilirubin 1.6 H AST 86 H D ALT 34 Alkaline Phosphatase 135 H D Ammonia Total Creatine Kinase 710 H CK-MB (Mass) Troponin I 0.1340 H* NT-Pro-B Natriuret Pep 5130 H Total Protein 7.1 Albumin 2.8 L Globulin 4.3 H Albumin/Globulin Ratio 0.7 L Lipase 229 Arterial Blood Potassium Venous Blood Potassium Urine Color Urine Clarity Urine pH Ur Specific [place] Urine Protein Urine Glucose (UA) Urine Ketones Urine Blood Urine Nitrate Urine Bilirubin Urine Urobilinogen Ur Leukocyte Esterase Urine WBC (Auto) Urine RBC (Auto) Ur Squamous Epith Cells Urine Yeast (Budding) Urine Opiates Screen Urine Methadone Screen Ur Barbiturates Screen Ur Phencyclidine Scrn Ur Amphetamines Screen U Benzodiazepines Scrn U Oth Cocaine Metabols U Cannabinoids Screen Alcohol, Quantitative 52 H Blood Type Antibody Screen 05/05/18 05/05/18 05/05/18 15:57 16:00 17:45 WBC RBC Hgb Hct MCV MCH MCHC RDW Plt Count MPV Neut % (Auto) Lymph % (Auto) [place] % (Auto) Eos % (Auto) Baso % (Auto) Neut # (Auto) Lymph # (Auto) [place] # (Auto) Eos # (Auto) Baso # (Auto) Neutrophils % (Manual) Band Neutrophils % Lymphocytes % (Manual) Monocytes % (Manual) Platelet Estimate Hypochromasia (manual) Poikilocytosis (manual Anisocytosis (manual) Target Cells Ovalocytes [place] Cells PT 15.8 H INR 1.4 APTT 37 H Puncture Site pCO2 pO2 42 HCO3 ABG pH ABG Total CO2 ABG O2 Saturation ABG Base Excess ABG Hemoglobin ABG Carboxyhemoglobin POC ABG HHb (Measured) ABG Methemoglobin Jeff Test ABG Potassium VBG pH 7.42 VBG pCO2 25 L VBG HCO3 19.3 VBG Total CO2 17.0 L VBG O2 Sat (Calc) 77.2 H VBG Base Excess -6.5 L VBG Potassium 4.0 A-a O2 Difference Respiratory Index Hgb O2 Saturation Glucose 110 Lactate 6.5 H* Vent Mode Mechanical Rate FiO2 Tidal Volume PEEP Crit Value Called To Dr. alexandra Crit Value Called By Jasvir johnston Crit Value Read Back Y Blood Gas Notified Time 1603 Sodium 143.0 Potassium Chloride 113.0 H Carbon Dioxide Anion Gap BUN Creatinine Est GFR ( Amer) Est GFR (Non-Af Amer) POC Glucose (mg/dL) Random Glucose Lactic Acid Calcium Phosphorus Magnesium Total Bilirubin AST ALT Alkaline Phosphatase Ammonia Total Creatine Kinase CK-MB (Mass) Troponin I NT-Pro-B Natriuret Pep Total Protein Albumin Globulin Albumin/Globulin Ratio Lipase Arterial Blood Potassium Venous Blood Potassium 4.0 Urine Color Urine Clarity Urine pH Ur Specific [place] Urine Protein Urine Glucose (UA) Urine Ketones Urine Blood Urine Nitrate Urine Bilirubin Urine Urobilinogen Ur Leukocyte Esterase Urine WBC (Auto) Urine RBC (Auto) Ur Squamous Epith Cells Urine Yeast (Budding) Urine Opiates Screen Urine Methadone Screen Ur Barbiturates Screen Ur Phencyclidine Scrn Ur Amphetamines Screen U Benzodiazepines Scrn U Oth Cocaine Metabols U Cannabinoids Screen Alcohol, Quantitative Blood Type AB POSITIVE Antibody Screen Negative 05/05/18 05/05/18 05/05/18 17:47 19:25 21:50 WBC RBC Hgb Hct MCV MCH MCHC RDW Plt Count MPV Neut % (Auto) Lymph % (Auto) [place] % (Auto) Eos % (Auto) Baso % (Auto) Neut # (Auto) Lymph # (Auto) [place] # (Auto) Eos # (Auto) Baso # (Auto) Neutrophils % (Manual) Band Neutrophils % Lymphocytes % (Manual) Monocytes % (Manual) Platelet Estimate Hypochromasia (manual) Poikilocytosis (manual Anisocytosis (manual) Target Cells Ovalocytes [place] Cells PT INR APTT Puncture Site Rr Rba pCO2 77 H* 42 pO2 22 L 116 H 77 L HCO3 15.3 L 22.6 ABG pH 7.02 L* 7.34 L ABG Total CO2 22.3 24.0 ABG O2 Saturation 97.7 97.1 ABG Base Excess -12.3 L -2.9 L ABG Hemoglobin 8.5 L ABG Carboxyhemoglobin 2.7 H POC ABG HHb (Measured) 2.8 ABG Methemoglobin 1.1 Jeff Test Yes Na ABG Potassium 4.1 VBG pH 7.42 VBG pCO2 30 L VBG HCO3 20.3 VBG Total CO2 20.4 L VBG O2 Sat (Calc) 34.1 L VBG Base Excess -3.9 L VBG Potassium 4.0 A-a O2 Difference 73.0 156.0 Respiratory Index 0.6 2.0 Hgb O2 Saturation 93.4 L Glucose 102 114 H Lactate 6.4 H* 5.1 H* Vent Mode Prvc Mechanical Rate 20 FiO2 40.0 40.0 Tidal Volume 500 PEEP 5 Crit Value Called To Dr nasrin Moreno rn Crit Value Called By Jasvir Sharpe rt Crit Value Read Back Y Y Blood Gas Notified Time 1749 1954 Sodium 142.0 142.0 Potassium Chloride 110.0 H 109.0 H Carbon Dioxide Anion Gap BUN Creatinine Est GFR ( Amer) Est GFR (Non-Af Amer) POC Glucose (mg/dL) Random Glucose Lactic Acid Calcium Phosphorus Magnesium Total Bilirubin AST ALT Alkaline Phosphatase Ammonia Total Creatine Kinase CK-MB (Mass) Troponin I NT-Pro-B Natriuret Pep Total Protein Albumin Globulin Albumin/Globulin Ratio Lipase Arterial Blood Potassium 4.1 Venous Blood Potassium 4.0 Urine Color Urine Clarity Urine pH Ur Specific [place] Urine Protein Urine Glucose (UA) Urine Ketones Urine Blood Urine Nitrate Urine Bilirubin Urine Urobilinogen Ur Leukocyte Esterase Urine WBC (Auto) Urine RBC (Auto) Ur Squamous Epith Cells Urine Yeast (Budding) Urine Opiates Screen Urine Methadone Screen Ur Barbiturates Screen Ur Phencyclidine Scrn Ur Amphetamines Screen U Benzodiazepines Scrn U Oth Cocaine Metabols U Cannabinoids Screen Alcohol, Quantitative Blood Type Antibody Screen 05/05/18 05/06/18 05/06/18 23:33 01:01 01:01 WBC RBC Hgb Hct MCV MCH MCHC RDW Plt Count MPV Neut % (Auto) Lymph % (Auto) [place] % (Auto) Eos % (Auto) Baso % (Auto) Neut # (Auto) Lymph # (Auto) [place] # (Auto) Eos # (Auto) Baso # (Auto) Neutrophils % (Manual) Band Neutrophils % Lymphocytes % (Manual) Monocytes % (Manual) Platelet Estimate Hypochromasia (manual) Poikilocytosis (manual Anisocytosis (manual) Target Cells Ovalocytes [place] Cells PT INR APTT Puncture Site pCO2 pO2 HCO3 ABG pH ABG Total CO2 ABG O2 Saturation ABG Base Excess ABG Hemoglobin ABG Carboxyhemoglobin POC ABG HHb (Measured) ABG Methemoglobin Jeff Test ABG Potassium VBG pH VBG pCO2 VBG HCO3 VBG Total CO2 VBG O2 Sat (Calc) VBG Base Excess VBG Potassium A-a O2 Difference Respiratory Index Hgb O2 Saturation Glucose Lactate Vent Mode Mechanical Rate FiO2 Tidal Volume PEEP Crit Value Called To Crit Value Called By Crit Value Read Back Blood Gas Notified Time Sodium 141 Potassium 4.2 Chloride 108 H Carbon Dioxide 24 Anion Gap 13 BUN 13 Creatinine 0.9 Est GFR ( Amer) > 60 Est GFR (Non-Af Amer) > 60 POC Glucose (mg/dL) 127 H Random Glucose 123 H Lactic Acid 2.5 H Calcium 7.4 L Phosphorus 4.3 Magnesium 1.4 L Total Bilirubin 1.3 AST 79 H ALT 38 Alkaline Phosphatase 92 Ammonia Total Creatine Kinase CK-MB (Mass) Troponin I NT-Pro-B Natriuret Pep Total Protein 6.3 Albumin 2.4 L Globulin 3.9 Albumin/Globulin Ratio 0.6 L Lipase Arterial Blood Potassium Venous Blood Potassium Urine Color Urine Clarity Urine pH Ur Specific [place] Urine Protein Urine Glucose (UA) Urine Ketones Urine Blood Urine Nitrate Urine Bilirubin Urine Urobilinogen Ur Leukocyte Esterase Urine WBC (Auto) Urine RBC (Auto) Ur Squamous Epith Cells Urine Yeast (Budding) Urine Opiates Screen Urine Methadone Screen Ur Barbiturates Screen Ur Phencyclidine Scrn Ur Amphetamines Screen U Benzodiazepines Scrn U Oth Cocaine Metabols U Cannabinoids Screen Alcohol, Quantitative Blood Type Antibody Screen 05/06/18 05/06/18 05/06/18 01:01 03:26 03:26 WBC RBC Hgb Hct MCV MCH MCHC RDW Plt Count MPV Neut % (Auto) Lymph % (Auto) [place] % (Auto) Eos % (Auto) Baso % (Auto) Neut # (Auto) Lymph # (Auto) [place] # (Auto) Eos # (Auto) Baso # (Auto) Neutrophils % (Manual) Band Neutrophils % Lymphocytes % (Manual) Monocytes % (Manual) Platelet Estimate Hypochromasia (manual) Poikilocytosis (manual Anisocytosis (manual) Target Cells Ovalocytes [place] Cells PT INR APTT Puncture Site pCO2 pO2 HCO3 ABG pH ABG Total CO2 ABG O2 Saturation ABG Base Excess ABG Hemoglobin ABG Carboxyhemoglobin POC ABG HHb (Measured) ABG Methemoglobin Jeff Test ABG Potassium VBG pH VBG pCO2 VBG HCO3 VBG Total CO2 VBG O2 Sat (Calc) VBG Base Excess VBG Potassium A-a O2 Difference Respiratory Index Hgb O2 Saturation Glucose Lactate Vent Mode Mechanical Rate FiO2 Tidal Volume PEEP Crit Value Called To Crit Value Called By Crit Value Read Back Blood Gas Notified Time Sodium Potassium Chloride Carbon Dioxide Anion Gap BUN Creatinine Est GFR ( Amer) Est GFR (Non-Af Amer) POC Glucose (mg/dL) Random Glucose Lactic Acid Calcium Phosphorus Magnesium Total Bilirubin AST ALT Alkaline Phosphatase Ammonia Total Creatine Kinase 499 H CK-MB (Mass) 6.48 H Troponin I 0.1380 H* NT-Pro-B Natriuret Pep Total Protein Albumin Globulin Albumin/Globulin Ratio Lipase Arterial Blood Potassium Venous Blood Potassium Urine Color [place] Urine Clarity Clear Urine pH 5.0 Ur Specific [place] 1.025 Urine Protein 3+ H Urine Glucose (UA) Normal Urine Ketones Negative Urine Blood 3+ H Urine Nitrate Negative Urine Bilirubin Negative Urine Urobilinogen 2.0 Ur Leukocyte Esterase Neg Urine WBC (Auto) 9 H Urine RBC (Auto) 707 H Ur Squamous Epith Cells 1 Urine Yeast (Budding) Few H Urine Opiates Screen Negative Urine Methadone Screen Negative Ur Barbiturates Screen Negative Ur Phencyclidine Scrn Negative Ur Amphetamines Screen Negative U Benzodiazepines Scrn Negative U Oth Cocaine Metabols Negative U Cannabinoids Screen Negative Alcohol, Quantitative Blood Type Antibody Screen 05/06/18 05/06/18 05/06/18 03:28 04:20 05:48 WBC 14.6 H RBC 3.51 L Hgb 7.7 L Hct 25.6 L MCV 72.9 L MCH 22.0 L MCHC 30.1 L RDW 22.4 H Plt Count 36 L D MPV 8.4 Neut % (Auto) 90.3 H Lymph % (Auto) 5.6 L [place] % (Auto) 3.5 Eos % (Auto) 0.0 Baso % (Auto) 0.6 Neut # (Auto) 13.2 H Lymph # (Auto) 0.8 L [place] # (Auto) 0.5 Eos # (Auto) 0.0 Baso # (Auto) 0.1 Neutrophils % (Manual) Band Neutrophils % Lymphocytes % (Manual) Monocytes % (Manual) Platelet Estimate Hypochromasia (manual) Poikilocytosis (manual Anisocytosis (manual) Target Cells Ovalocytes [place] Cells PT INR APTT Puncture Site Rr pCO2 31 L pO2 121 H HCO3 24.3 ABG pH 7.46 H ABG Total CO2 23.0 ABG O2 Saturation 99.4 H ABG Base Excess -0.9 ABG Hemoglobin ABG Carboxyhemoglobin POC ABG HHb (Measured) ABG Methemoglobin Jeff Test Pos ABG Potassium 3.6 VBG pH VBG pCO2 VBG HCO3 VBG Total CO2 VBG O2 Sat (Calc) VBG Base Excess VBG Potassium A-a O2 Difference 125.0 Respiratory Index 1.0 Hgb O2 Saturation Glucose 123 H Lactate 1.3 Vent Mode Prvc Mechanical Rate 20 FiO2 40.0 Tidal Volume 500 PEEP 5 Crit Value Called To Crit Value Called By Crit Value Read Back Blood Gas Notified Time Sodium 143.0 Potassium Chloride 117.0 H Carbon Dioxide Anion Gap BUN Creatinine Est GFR ( Amer) Est GFR (Non-Af Amer) POC Glucose (mg/dL) 108 Random Glucose Lactic Acid Calcium Phosphorus Magnesium Total Bilirubin AST ALT Alkaline Phosphatase Ammonia Total Creatine Kinase CK-MB (Mass) Troponin I NT-Pro-B Natriuret Pep Total Protein Albumin Globulin Albumin/Globulin Ratio Lipase Arterial Blood Potassium 3.6 Venous Blood Potassium Urine Color Urine Clarity Urine pH Ur Specific [place] Urine Protein Urine Glucose (UA) Urine Ketones Urine Blood Urine Nitrate Urine Bilirubin Urine Urobilinogen Ur Leukocyte Esterase Urine WBC (Auto) Urine RBC (Auto) Ur Squamous Epith Cells Urine Yeast (Budding) Urine Opiates Screen Urine Methadone Screen Ur Barbiturates Screen Ur Phencyclidine Scrn Ur Amphetamines Screen U Benzodiazepines Scrn U Oth Cocaine Metabols U Cannabinoids Screen Alcohol, Quantitative Blood Type Antibody Screen 05/06/18 05/06/18 05/06/18 06:22 06:22 06:22 WBC RBC Hgb Hct MCV MCH MCHC RDW Plt Count MPV Neut % (Auto) Lymph % (Auto) [place] % (Auto) Eos % (Auto) Baso % (Auto) Neut # (Auto) Lymph # (Auto) [place] # (Auto) Eos # (Auto) Baso # (Auto) Neutrophils % (Manual) Band Neutrophils % Lymphocytes % (Manual) Monocytes % (Manual) Platelet Estimate Hypochromasia (manual) Poikilocytosis (manual Anisocytosis (manual) Target Cells Ovalocytes Pepe Cells PT 19.8 H INR 1.8 APTT 38 H Puncture Site pCO2 pO2 HCO3 ABG pH ABG Total CO2 ABG O2 Saturation ABG Base Excess ABG Hemoglobin ABG Carboxyhemoglobin POC ABG HHb (Measured) ABG Methemoglobin Jeff Test ABG Potassium VBG pH VBG pCO2 VBG HCO3 VBG Total CO2 VBG O2 Sat (Calc) VBG Base Excess VBG Potassium A-a O2 Difference Respiratory Index Hgb O2 Saturation Glucose Lactate Vent Mode Mechanical Rate FiO2 Tidal Volume PEEP Crit Value Called To Crit Value Called By Crit Value Read Back Blood Gas Notified Time Sodium 138 Potassium 4.0 Chloride 110 H Carbon Dioxide 24 Anion Gap 9 L BUN 15 Creatinine 0.9 Est GFR ( Amer) > 60 Est GFR (Non-Af Amer) > 60 POC Glucose (mg/dL) Random Glucose 125 H Lactic Acid Calcium 7.0 L Phosphorus 4.0 Magnesium 1.8 Total Bilirubin 1.1 AST 58 ALT 31 Alkaline Phosphatase 84 Ammonia 65 H D Total Creatine Kinase 292 H CK-MB (Mass) 3.60 H Troponin I 0.1260 H* NT-Pro-B Natriuret Pep Total Protein 5.3 L Albumin 2.0 L Globulin 3.4 Albumin/Globulin Ratio 0.6 L Lipase Arterial Blood Potassium Venous Blood Potassium Urine Color Urine Clarity Urine pH Ur Specific [place] Urine Protein Urine Glucose (UA) Urine Ketones Urine Blood Urine Nitrate Urine Bilirubin Urine Urobilinogen Ur Leukocyte Esterase Urine WBC (Auto) Urine RBC (Auto) Ur Squamous Epith Cells Urine Yeast (Budding) Urine Opiates Screen Urine Methadone Screen Ur Barbiturates Screen Ur Phencyclidine Scrn Ur Amphetamines Screen U Benzodiazepines Scrn U Oth Cocaine Metabols U Cannabinoids Screen Alcohol, Quantitative Blood Type Antibody Screen 05/06/18 05/06/18 05/06/18 06:22 06:26 06:26 WBC 11.3 H RBC 3.20 L Hgb 7.2 L Hct 23.1 L MCV 72.0 L MCH 22.5 L MCHC 31.2 L RDW 22.8 H Plt Count 32 L MPV 8.3 Neut % (Auto) 86.4 H Lymph % (Auto) 9.0 L [place] % (Auto) 4.4 Eos % (Auto) 0.1 Baso % (Auto) 0.1 Neut # (Auto) 9.7 H Lymph # (Auto) 1.0 [place] # (Auto) 0.5 Eos # (Auto) 0.0 Baso # (Auto) 0.0 Neutrophils % (Manual) Band Neutrophils % Lymphocytes % (Manual) Monocytes % (Manual) Platelet Estimate Hypochromasia (manual) Poikilocytosis (manual Anisocytosis (manual) Target Cells Ovalocytes Pepe Cells PT INR APTT Puncture Site pCO2 pO2 HCO3 ABG pH ABG Total CO2 ABG O2 Saturation ABG Base Excess ABG Hemoglobin ABG Carboxyhemoglobin POC ABG HHb (Measured) ABG Methemoglobin Jeff Test ABG Potassium VBG pH VBG pCO2 VBG HCO3 VBG Total CO2 VBG O2 Sat (Calc) VBG Base Excess VBG Potassium A-a O2 Difference Respiratory Index Hgb O2 Saturation Glucose Lactate Vent Mode Mechanical Rate FiO2 Tidal Volume PEEP Crit Value Called To Crit Value Called By Crit Value Read Back Blood Gas Notified Time Sodium Potassium Chloride Carbon Dioxide Anion Gap BUN Creatinine Est GFR ( Amer) Est GFR (Non-Af Amer) POC Glucose (mg/dL) Random Glucose Lactic Acid 1.3 Calcium Phosphorus Magnesium Total Bilirubin AST ALT Alkaline Phosphatase Ammonia Total Creatine Kinase CK-MB (Mass) Troponin I NT-Pro-B Natriuret Pep Total Protein Albumin Globulin Albumin/Globulin Ratio Lipase Arterial Blood Potassium Venous Blood Potassium Urine Color Urine Clarity Urine pH Ur Specific [place] Urine Protein Urine Glucose (UA) Urine Ketones Urine Blood Urine Nitrate Urine Bilirubin Urine Urobilinogen Ur Leukocyte Esterase Urine WBC (Auto) Urine RBC (Auto) Ur Squamous Epith Cells Urine Yeast (Budding) Urine Opiates Screen Urine Methadone Screen Ur Barbiturates Screen Ur Phencyclidine Scrn Ur Amphetamines Screen U Benzodiazepines Scrn U Oth Cocaine Metabols U Cannabinoids Screen Alcohol, Quantitative Blood Type AB POSITIVE Antibody Screen EKG/Cardiology Studies: Cardiology / EKG Studies 05/05/18 15:41 EKG [ELECTROCARDIOGRAM] Stat Comment: Mode Of Transportation: Reason For Exam: chest pain Fingerstick Blood Sugar Results: 135 Assessment/Plan - Assessment and Plan (Free Text) Assessment: 42 y/o male with history of asthma, HTN, and DM-2 presenting with right leg infection, melena, and anasarca. In ED, patient was a code sepsis. Patient admitted to ICU for sepsis and respiratory distress. Plan: Neuro: Alcohol withdrawal symptoms - Patient sedated on Precedex - Blood alcohol: 52 - Narcan 0.4mg IV once - UDS: negative - Head CT: f/u Cardiovascular: Elevated troponins - Troponin: 0.138 --> 0.126 - Lactic acid: 2.5 --> 1.3 - Cardiology consulted, Dr. Barajas Heart failure - Lasix 20mg PO QD - Monitor I's and O's Pulm: Respiratory distress - CXR (05/06): Interval improved aeration in the lungs. Residual airspace disease in the lower R lobe may represent PNA or pulmonary edema. - Patient intubated on CPAP - ABG: pCO2 31, pO2 121, pH 7.46 - Solumedrol 40mg IV Q12 - Duonebs Q6 Possible PNA - CXR: Interval improvement in congestive heart failure. Residual haziness in the right lower lobe may represent residual pulmonary edema however pneumonia cannot be excluded. Follow-up to resolution is advised. - Zosyn 3.375g IV Q6 (Started on 05/05) - Vancomycin 1g IV Q12 (Started on 05/05) - Sputum cx: f/u GI: Possible colitis - CT Abd (05/05): Fluid-filled mildly dilated mid and distal small bowel loops and apparent mild mural thickening in the colon may represent nonspecific enterocolitis. Cirrhosis of liver, mild abdominal and moderate pelvic ascites. Recanalization of the umbilical vein. Severe diffuse anasarca. - Lipase: 221 - GI consulted, Dr. Holt Hx of hepatic encephalopathy - Ammonia level: 65 - Lactulose 20g PO Q12 GI bleed - Protonix IV 40mg QD - Hb: 9.1 --> 7.2 - Monitor Hb/Hct Transaminitis: - Likely 2/2 to alcohol abuse - ALT/AST: - Continue to monitor Renal: - No acute issues Heme: Normocytic anemia - Hb/Hct: 7.2/23.1 - MCV: 73.8 - Type and screen - Continue to monitor Thrombocytopenia - Platelets: 56 --> 32 - Continue to monitor ID: Sepsis - Patient was code sepsis in ED - Likely 2/2 leg wound - ID consulted, Dr. Smith - WBC: 21.5 --> 11.3 - Bands: 17 - Lactic acid: 2.5 --> 1.3 - Patient afebrile - Zosyn 3.375g IV Q6 (Started on 05/05) - Vancomycin 1g IV Q12 (Started on 05/05) - Blood cx: f/u - Urine cx f/u - Wound cx: f/u - Sputum cx: f/u - C. diff: f/u Right leg wound - Wound cx: f/u - Zosyn 3.375g IV Q6 (Started on 05/05) - Vancomycin 1g IV Q12 (Started on 05/05) Prophylaxis: - Protonix IV 40mg QD - VTE contraindicated 2/2 GI bleed - SCD contraindicated 2/2 leg wounds Case discussed with Dr. Oral Foreman, PGY-1 <Lian Lind - Last Filed: 05/06/18 16:53> CCU Objective - Vital Signs / Intake & Output Vital Signs (Last 4 hours): Vital Signs Pulse Resp Pulse Ox 05/06/18 13:00 85 21 100 Intake and Output (Last 8hrs): Intake & Output 05/06/18 05/06/18 05/06/18 06:59 14:59 22:59 Intake Total 283.2 88.6 Output Total 310 0 Balance -26.8 88.6 Weight 247 lb 9.6 oz Intake: IV 50 50 Intake, IV Amount 173.2 38.6 Left Wrist 10 Right Antecubital 63.2 38.6 Right Proximal Port 100 0 Antecubital Tube Feeding 0 0 Other 60 Output: Urine 310 Urethral (Leal) 310 Emesis 0 0 Other: # Bowel Movements 1 - Medications Active Medications: Active Medications Generic Name Dose Route Start Last Admin Trade Name Freq PRN Reason Stop Dose Admin Albuterol/Ipratropium 3 ml 05/06/18 02:00 05/06/18 13:14 Duoneb 3 Mg/0.5 Mg (3 Ml) Ud INH 3 ml RQ6 FLY Administration Furosemide 20 mg 05/06/18 10:30 05/06/18 11:30 Lasix PO 20 mg DAILY FLY Administration Piperacillin Sod/Tazobactam 100 mls @ 200 mls/hr 05/05/18 20:00 05/06/18 08:00 Sod 3.375 gm/ Sodium Chloride IVPB 200 mls/hr Q6H FLY Administration Protocol Vancomycin/Sodium Chloride 1 gm in 200 mls @ 133 mls/hr 05/05/18 20:30 05/06/18 08:30 Vancomycin 1 Gm/Ns 200 Ml IVPB 05/10/18 20:31 133 mls/hr Q12H FLY Administration Protocol Dexmedetomidine HCl 200 mcg/ 50 mls @ 4.99 mls/hr 05/05/18 21:18 05/06/18 16:30 Sodium Chloride IV 0.22 mcg/kg/hr TITR PRN 5.49 mls/hr Agitation Administration Protocol 0.2 MCG/KG/HR Lactulose 20 gm 05/05/18 22:00 05/06/18 09:10 Enulose PO 20 gm Q12 FLY Administration Methylprednisolone 40 mg 05/06/18 22:00 Solu-Medrol IVP 05/08/18 22:01 Q12 FLY Multivitamins/Vitamin C 5 ml 05/06/18 16:30 Multi-Delyn Liquid PO DAILY FLY Pantoprazole Sodium 40 mg 05/05/18 22:00 05/06/18 09:10 Protonix Inj IVP 40 mg Q12 FLY Administration Phytonadione 10 mg 05/06/18 10:30 05/06/18 11:30 Vitamin K Tab PO 10 mg DAILY FLY Administration Thiamine HCl 200 mg 05/06/18 16:30 Vitamin B1 Inj IV Q8H FLY - Patient Studies Lab Studies: Microbiology Studies 05/05/18 15:49 Blood Culture - Preliminary Blood-Venous NO GROWTH AFTER 24 HOURS 05/05/18 16:03 Blood Culture - Preliminary Blood-Venous NO GROWTH AFTER 24 HOURS 05/06/18 03:24 Gram Stain - Final Leg - Right 05/05/18 06:00 Gram Stain - Final Sputum Lab Studies 05/06/18 05/06/18 05/06/18 Range/Units 11:30 09:12 06:26 WBC 11.3 H (4.8-10.8) K/uL RBC 3.20 L (4.40-5.90) Mil/uL Hgb 7.2 L (12.0-18.0) g/dL Hct 23.1 L (35.0-51.0) % MCV 72.0 L (80.0-94.0) fL MCH 22.5 L (27.0-31.0) pg MCHC 31.2 L (33.0-37.0) g/dL RDW 22.8 H (11.5-14.5) % Plt Count 32 L (130-400) K/uL MPV 8.3 (7.2-11.7) fL Neut % (Auto) 86.4 H (50.0-75.0) % Lymph % (Auto) 9.0 L (20.0-40.0) % [place] % (Auto) 4.4 (0.0-10.0) % Eos % (Auto) 0.1 (0.0-4.0) % Baso % (Auto) 0.1 (0.0-2.0) % Neut # (Auto) 9.7 H (1.8-7.0) K/uL Lymph # (Auto) 1.0 (1.0-4.3) K/uL [place] # (Auto) 0.5 (0.0-0.8) K/uL Eos # (Auto) 0.0 (0.0-0.7) K/uL Baso # (Auto) 0.0 (0.0-0.2) K/uL Neutrophils % (Manual) (50-75) % Band Neutrophils % (0-2) % Lymphocytes % (Manual) (20-40) % Monocytes % (Manual) (0-10) % Nucleated RBC % (0-0) % Differential Comment Platelet Estimate (NORMAL) Polychromasia Hypochromasia (manual) Anisocytosis (manual) Microcytosis (manual) Ovalocytes PT (9.7-12.2) SECONDS INR APTT (21-34) SECONDS Puncture Site pCO2 (35-45) mm/Hg pO2 (30-55) mm/Hg HCO3 (21-28) mmol/L ABG pH (7.35-7.45) ABG Total CO2 (22-28) mmol/L ABG O2 Saturation (95-98) % ABG Base Excess (-2.0-3.0) mmol/L ABG Hemoglobin (11.7-17.4) g/dL ABG Carboxyhemoglobin (0.5-1.5) % POC ABG HHb (Measured) (0.0-5.0) % ABG Methemoglobin (0.0-3.0) % Jeff Test ABG Potassium (3.6-5.2) mmol/L VBG pH (7.32-7.43) VBG pCO2 (40-60) mmHg VBG HCO3 mmol/L VBG Total CO2 (22-28) mmol/L VBG O2 Sat (Calc) (40-65) % VBG Base Excess (0.0-2.0) mmol/L VBG Potassium (3.6-5.2) mmol/L A-a O2 Difference mm/Hg Respiratory Index Hgb O2 Saturation (95.0-98.0) % Sodium (132-148) mmol/l Chloride (98-107) mmol/L Glucose (75-110) mg/dl Lactate (0.7-2.1) mmol/L Vent Mode Mechanical Rate FiO2 % Tidal Volume PEEP Crit Value Called To Crit Value Called By Crit Value Read Back Blood Gas Notified Time Potassium (3.6-5.2) mmol/L Carbon Dioxide (22-30) mmol/L Anion Gap (10-20) BUN (9-20) mg/dL Creatinine (0.8-1.5) mg/dL Est GFR ( Amer) Est GFR (Non-Af Amer) POC Glucose (mg/dL) 115 H (65-110) mg/dL Random Glucose (75-110) mg/dL Lactic Acid 1.3 (0.7-2.1) mmol/L Calcium (8.6-10.4) mg/dl Phosphorus (2.5-4.5) mg/dL Magnesium (1.6-2.3) mg/dL Total Bilirubin (0.2-1.3) mg/dL AST (17-59) U/L ALT (21-72) U/L Alkaline Phosphatase (38-126) U/L Ammonia (9-33) umol/L Total Creatine Kinase (55-170) U/L CK-MB (Mass) (0.0-3.38) ng/mL Troponin I (0.00-0.120) ng/mL Total Protein (6.3-8.3) g/dL Albumin (3.5-5.0) g/dL Globulin (2.2-3.9) gm/dL Albumin/Globulin Ratio (1.0-2.1) Arterial Blood Potassium (3.6-5.2) mmol/L Venous Blood Potassium (3.6-5.2) mmol/L Urine Color (YELLOW) Urine Clarity (Clear) Urine pH (5.0-8.0) Ur Specific [place] (1.003-1.030) Urine Protein (NEGATIVE) mg/dL Urine Glucose (UA) (Normal) mg/dL Urine Ketones (NEGATIVE) mg/dL Urine Blood (NEGATIVE) Urine Nitrate (NEGATIVE) Urine Bilirubin (NEGATIVE) Urine Urobilinogen (0.2-1.0) mg/dL Ur Leukocyte Esterase (Negative) Lexie/uL Urine WBC (Auto) (0-5) /hpf Urine RBC (Auto) (0-3) /hpf Ur Squamous Epith Cells (0-5) /hpf Urine Yeast (Budding) (NEGATIVE) /hpf Urine Opiates Screen (NEGATIVE) Urine Methadone Screen (NEGATIVE) Ur Barbiturates Screen (NEGATIVE) Ur Phencyclidine Scrn (NEGATIVE) Ur Amphetamines Screen (NEGATIVE) U Benzodiazepines Scrn (NEGATIVE) U Oth Cocaine Metabols (NEGATIVE) U Cannabinoids Screen (NEGATIVE) C. difficile Ag & Toxin (NEGATIVE) Blood Type Antibody Screen 05/06/18 05/06/18 05/06/18 Range/Units 06:26 06:22 06:22 WBC (4.8-10.8) K/uL RBC (4.40-5.90) Mil/uL Hgb (12.0-18.0) g/dL Hct (35.0-51.0) % MCV (80.0-94.0) fL MCH (27.0-31.0) pg MCHC (33.0-37.0) g/dL RDW (11.5-14.5) % Plt Count (130-400) K/uL MPV (7.2-11.7) fL Neut % (Auto) (50.0-75.0) % Lymph % (Auto) (20.0-40.0) % [place] % (Auto) (0.0-10.0) % Eos % (Auto) (0.0-4.0) % Baso % (Auto) (0.0-2.0) % Neut # (Auto) (1.8-7.0) K/uL Lymph # (Auto) (1.0-4.3) K/uL [place] # (Auto) (0.0-0.8) K/uL Eos # (Auto) (0.0-0.7) K/uL Baso # (Auto) (0.0-0.2) K/uL Neutrophils % (Manual) (50-75) % Band Neutrophils % (0-2) % Lymphocytes % (Manual) (20-40) % Monocytes % (Manual) (0-10) % Nucleated RBC % (0-0) % Differential Comment Platelet Estimate (NORMAL) Polychromasia Hypochromasia (manual) Anisocytosis (manual) Microcytosis (manual) Ovalocytes PT (9.7-12.2) SECONDS INR APTT (21-34) SECONDS Puncture Site pCO2 (35-45) mm/Hg pO2 (30-55) mm/Hg HCO3 (21-28) mmol/L ABG pH (7.35-7.45) ABG Total CO2 (22-28) mmol/L ABG O2 Saturation (95-98) % ABG Base Excess (-2.0-3.0) mmol/L ABG Hemoglobin (11.7-17.4) g/dL ABG Carboxyhemoglobin (0.5-1.5) % POC ABG HHb (Measured) (0.0-5.0) % ABG Methemoglobin (0.0-3.0) % Jeff Test ABG Potassium (3.6-5.2) mmol/L VBG pH (7.32-7.43) VBG pCO2 (40-60) mmHg VBG HCO3 mmol/L VBG Total CO2 (22-28) mmol/L VBG O2 Sat (Calc) (40-65) % VBG Base Excess (0.0-2.0) mmol/L VBG Potassium (3.6-5.2) mmol/L A-a O2 Difference mm/Hg Respiratory Index Hgb O2 Saturation (95.0-98.0) % Sodium (132-148) mmol/l Chloride (98-107) mmol/L Glucose (75-110) mg/dl Lactate (0.7-2.1) mmol/L Vent Mode Mechanical Rate FiO2 % Tidal Volume PEEP Crit Value Called To Crit Value Called By Crit Value Read Back Blood Gas Notified Time Potassium (3.6-5.2) mmol/L Carbon Dioxide (22-30) mmol/L Anion Gap (10-20) BUN (9-20) mg/dL Creatinine (0.8-1.5) mg/dL Est GFR ( Amer) Est GFR (Non-Af Amer) POC Glucose (mg/dL) (65-110) mg/dL Random Glucose (75-110) mg/dL Lactic Acid 1.3 (0.7-2.1) mmol/L Calcium (8.6-10.4) mg/dl Phosphorus (2.5-4.5) mg/dL Magnesium (1.6-2.3) mg/dL Total Bilirubin (0.2-1.3) mg/dL AST (17-59) U/L ALT (21-72) U/L Alkaline Phosphatase (38-126) U/L Ammonia 65 H D (9-33) umol/L Total Creatine Kinase (55-170) U/L CK-MB (Mass) (0.0-3.38) ng/mL Troponin I (0.00-0.120) ng/mL Total Protein (6.3-8.3) g/dL Albumin (3.5-5.0) g/dL Globulin (2.2-3.9) gm/dL Albumin/Globulin Ratio (1.0-2.1) Arterial Blood Potassium (3.6-5.2) mmol/L Venous Blood Potassium (3.6-5.2) mmol/L Urine Color (YELLOW) Urine Clarity (Clear) Urine pH (5.0-8.0) Ur Specific [place] (1.003-1.030) Urine Protein (NEGATIVE) mg/dL Urine Glucose (UA) (Normal) mg/dL Urine Ketones (NEGATIVE) mg/dL Urine Blood (NEGATIVE) Urine Nitrate (NEGATIVE) Urine Bilirubin (NEGATIVE) Urine Urobilinogen (0.2-1.0) mg/dL Ur Leukocyte Esterase (Negative) Lexie/uL Urine WBC (Auto) (0-5) /hpf Urine RBC (Auto) (0-3) /hpf Ur Squamous Epith Cells (0-5) /hpf Urine Yeast (Budding) (NEGATIVE) /hpf Urine Opiates Screen (NEGATIVE) Urine Methadone Screen (NEGATIVE) Ur Barbiturates Screen (NEGATIVE) Ur Phencyclidine Scrn (NEGATIVE) Ur Amphetamines Screen (NEGATIVE) U Benzodiazepines Scrn (NEGATIVE) U Oth Cocaine Metabols (NEGATIVE) U Cannabinoids Screen (NEGATIVE) C. difficile Ag & Toxin (NEGATIVE) Blood Type AB POSITIVE Antibody Screen Negative 05/06/18 05/06/18 05/06/18 Range/Units 06:22 06:22 05:48 WBC (4.8-10.8) K/uL RBC (4.40-5.90) Mil/uL Hgb (12.0-18.0) g/dL Hct (35.0-51.0) % MCV (80.0-94.0) fL MCH (27.0-31.0) pg MCHC (33.0-37.0) g/dL RDW (11.5-14.5) % Plt Count (130-400) K/uL MPV (7.2-11.7) fL Neut % (Auto) (50.0-75.0) % Lymph % (Auto) (20.0-40.0) % [place] % (Auto) (0.0-10.0) % Eos % (Auto) (0.0-4.0) % Baso % (Auto) (0.0-2.0) % Neut # (Auto) (1.8-7.0) K/uL Lymph # (Auto) (1.0-4.3) K/uL [place] # (Auto) (0.0-0.8) K/uL Eos # (Auto) (0.0-0.7) K/uL Baso # (Auto) (0.0-0.2) K/uL Neutrophils % (Manual) (50-75) % Band Neutrophils % (0-2) % Lymphocytes % (Manual) (20-40) % Monocytes % (Manual) (0-10) % Nucleated RBC % (0-0) % Differential Comment Platelet Estimate (NORMAL) Polychromasia Hypochromasia (manual) Anisocytosis (manual) Microcytosis (manual) Ovalocytes PT 19.8 H (9.7-12.2) SECONDS INR 1.8 APTT 38 H (21-34) SECONDS Puncture Site pCO2 (35-45) mm/Hg pO2 (30-55) mm/Hg HCO3 (21-28) mmol/L ABG pH (7.35-7.45) ABG Total CO2 (22-28) mmol/L ABG O2 Saturation (95-98) % ABG Base Excess (-2.0-3.0) mmol/L ABG Hemoglobin (11.7-17.4) g/dL ABG Carboxyhemoglobin (0.5-1.5) % POC ABG HHb (Measured) (0.0-5.0) % ABG Methemoglobin (0.0-3.0) % Jeff Test ABG Potassium (3.6-5.2) mmol/L VBG pH (7.32-7.43) VBG pCO2 (40-60) mmHg VBG HCO3 mmol/L VBG Total CO2 (22-28) mmol/L VBG O2 Sat (Calc) (40-65) % VBG Base Excess (0.0-2.0) mmol/L VBG Potassium (3.6-5.2) mmol/L A-a O2 Difference mm/Hg Respiratory Index Hgb O2 Saturation (95.0-98.0) % Sodium 138 (132-148) mmol/l Chloride 110 H (98-107) mmol/L Glucose (75-110) mg/dl Lactate (0.7-2.1) mmol/L Vent Mode Mechanical Rate FiO2 % Tidal Volume PEEP Crit Value Called To Crit Value Called By Crit Value Read Back Blood Gas Notified Time Potassium 4.0 (3.6-5.2) mmol/L Carbon Dioxide 24 (22-30) mmol/L Anion Gap 9 L (10-20) BUN 15 (9-20) mg/dL Creatinine 0.9 (0.8-1.5) mg/dL Est GFR ( Amer) > 60 Est GFR (Non-Af Amer) > 60 POC Glucose (mg/dL) 108 (65-110) mg/dL Random Glucose 125 H (75-110) mg/dL Lactic Acid (0.7-2.1) mmol/L Calcium 7.0 L (8.6-10.4) mg/dl Phosphorus 4.0 (2.5-4.5) mg/dL Magnesium 1.8 (1.6-2.3) mg/dL Total Bilirubin 1.1 (0.2-1.3) mg/dL AST 58 (17-59) U/L ALT 31 (21-72) U/L Alkaline Phosphatase 84 (38-126) U/L Ammonia (9-33) umol/L Total Creatine Kinase 292 H (55-170) U/L CK-MB (Mass) 3.60 H (0.0-3.38) ng/mL Troponin I 0.1260 H* (0.00-0.120) ng/mL Total Protein 5.3 L (6.3-8.3) g/dL Albumin 2.0 L (3.5-5.0) g/dL Globulin 3.4 (2.2-3.9) gm/dL Albumin/Globulin Ratio 0.6 L (1.0-2.1) Arterial Blood Potassium (3.6-5.2) mmol/L Venous Blood Potassium (3.6-5.2) mmol/L Urine Color (YELLOW) Urine Clarity (Clear) Urine pH (5.0-8.0) Ur Specific [place] (1.003-1.030) Urine Protein (NEGATIVE) mg/dL Urine Glucose (UA) (Normal) mg/dL Urine Ketones (NEGATIVE) mg/dL Urine Blood (NEGATIVE) Urine Nitrate (NEGATIVE) Urine Bilirubin (NEGATIVE) Urine Urobilinogen (0.2-1.0) mg/dL Ur Leukocyte Esterase (Negative) Lexie/uL Urine WBC (Auto) (0-5) /hpf Urine RBC (Auto) (0-3) /hpf Ur Squamous Epith Cells (0-5) /hpf Urine Yeast (Budding) (NEGATIVE) /hpf Urine Opiates Screen (NEGATIVE) Urine Methadone Screen (NEGATIVE) Ur Barbiturates Screen (NEGATIVE) Ur Phencyclidine Scrn (NEGATIVE) Ur Amphetamines Screen (NEGATIVE) U Benzodiazepines Scrn (NEGATIVE) U Oth Cocaine Metabols (NEGATIVE) U Cannabinoids Screen (NEGATIVE) C. difficile Ag & Toxin (NEGATIVE) Blood Type Antibody Screen 05/06/18 05/06/18 05/06/18 Range/Units 04:20 03:28 03:26 WBC 14.6 H (4.8-10.8) K/uL RBC 3.51 L (4.40-5.90) Mil/uL Hgb 7.7 L (12.0-18.0) g/dL Hct 25.6 L (35.0-51.0) % MCV 72.9 L (80.0-94.0) fL MCH 22.0 L (27.0-31.0) pg MCHC 30.1 L (33.0-37.0) g/dL RDW 22.4 H (11.5-14.5) % Plt Count 36 L D (130-400) K/uL MPV 8.4 (7.2-11.7) fL Neut % (Auto) 90.3 H (50.0-75.0) % Lymph % (Auto) 5.6 L (20.0-40.0) % [place] % (Auto) 3.5 (0.0-10.0) % Eos % (Auto) 0.0 (0.0-4.0) % Baso % (Auto) 0.6 (0.0-2.0) % Neut # (Auto) 13.2 H (1.8-7.0) K/uL Lymph # (Auto) 0.8 L (1.0-4.3) K/uL [place] # (Auto) 0.5 (0.0-0.8) K/uL Eos # (Auto) 0.0 (0.0-0.7) K/uL Baso # (Auto) 0.1 (0.0-0.2) K/uL Neutrophils % (Manual) 94 H (50-75) % Band Neutrophils % 1 (0-2) % Lymphocytes % (Manual) 4 L (20-40) % Monocytes % (Manual) 1 (0-10) % Nucleated RBC % 1 H (0-0) % Differential Comment Platelet Estimate Decreased L (NORMAL) Polychromasia Slight Hypochromasia (manual) Moderate Anisocytosis (manual) Moderate Microcytosis (manual) Slight Ovalocytes Slight PT (9.7-12.2) SECONDS INR APTT (21-34) SECONDS Puncture Site Rr pCO2 31 L (35-45) mm/Hg pO2 121 H (30-55) mm/Hg HCO3 24.3 (21-28) mmol/L ABG pH 7.46 H (7.35-7.45) ABG Total CO2 23.0 (22-28) mmol/L ABG O2 Saturation 99.4 H (95-98) % ABG Base Excess -0.9 (-2.0-3.0) mmol/L ABG Hemoglobin (11.7-17.4) g/dL ABG Carboxyhemoglobin (0.5-1.5) % POC ABG HHb (Measured) (0.0-5.0) % ABG Methemoglobin (0.0-3.0) % Jeff Test Pos ABG Potassium 3.6 (3.6-5.2) mmol/L VBG pH (7.32-7.43) VBG pCO2 (40-60) mmHg VBG HCO3 mmol/L VBG Total CO2 (22-28) mmol/L VBG O2 Sat (Calc) (40-65) % VBG Base Excess (0.0-2.0) mmol/L VBG Potassium (3.6-5.2) mmol/L A-a O2 Difference 125.0 mm/Hg Respiratory Index 1.0 Hgb O2 Saturation (95.0-98.0) % Sodium 143.0 (132-148) mmol/l Chloride 117.0 H (98-107) mmol/L Glucose 123 H (75-110) mg/dl Lactate 1.3 (0.7-2.1) mmol/L Vent Mode Prvc Mechanical Rate 20 FiO2 40.0 % Tidal Volume 500 PEEP 5 Crit Value Called To Crit Value Called By Crit Value Read Back Blood Gas Notified Time Potassium (3.6-5.2) mmol/L Carbon Dioxide (22-30) mmol/L Anion Gap (10-20) BUN (9-20) mg/dL Creatinine (0.8-1.5) mg/dL Est GFR ( Amer) Est GFR (Non-Af Amer) POC Glucose (mg/dL) (65-110) mg/dL Random Glucose (75-110) mg/dL Lactic Acid (0.7-2.1) mmol/L Calcium (8.6-10.4) mg/dl Phosphorus (2.5-4.5) mg/dL Magnesium (1.6-2.3) mg/dL Total Bilirubin (0.2-1.3) mg/dL AST (17-59) U/L ALT (21-72) U/L Alkaline Phosphatase (38-126) U/L Ammonia (9-33) umol/L Total Creatine Kinase (55-170) U/L CK-MB (Mass) (0.0-3.38) ng/mL Troponin I (0.00-0.120) ng/mL Total Protein (6.3-8.3) g/dL Albumin (3.5-5.0) g/dL Globulin (2.2-3.9) gm/dL Albumin/Globulin Ratio (1.0-2.1) Arterial Blood Potassium 3.6 (3.6-5.2) mmol/L Venous Blood Potassium (3.6-5.2) mmol/L Urine Color (YELLOW) Urine Clarity (Clear) Urine pH (5.0-8.0) Ur Specific [place] (1.003-1.030) Urine Protein (NEGATIVE) mg/dL Urine Glucose (UA) (Normal) mg/dL Urine Ketones (NEGATIVE) mg/dL Urine Blood (NEGATIVE) Urine Nitrate (NEGATIVE) Urine Bilirubin (NEGATIVE) Urine Urobilinogen (0.2-1.0) mg/dL Ur Leukocyte Esterase (Negative) Lexie/uL Urine WBC (Auto) (0-5) /hpf Urine RBC (Auto) (0-3) /hpf Ur Squamous Epith Cells (0-5) /hpf Urine Yeast (Budding) (NEGATIVE) /hpf Urine Opiates Screen Negative (NEGATIVE) Urine Methadone Screen Negative (NEGATIVE) Ur Barbiturates Screen Negative (NEGATIVE) Ur Phencyclidine Scrn Negative (NEGATIVE) Ur Amphetamines Screen Negative (NEGATIVE) U Benzodiazepines Scrn Negative (NEGATIVE) U Oth Cocaine Metabols Negative (NEGATIVE) U Cannabinoids Screen Negative (NEGATIVE) C. difficile Ag & Toxin (NEGATIVE) Blood Type Antibody Screen 05/06/18 05/06/18 05/06/18 Range/Units 03:26 03:25 01:01 WBC (4.8-10.8) K/uL RBC (4.40-5.90) Mil/uL Hgb (12.0-18.0) g/dL Hct (35.0-51.0) % MCV (80.0-94.0) fL MCH (27.0-31.0) pg MCHC (33.0-37.0) g/dL RDW (11.5-14.5) % Plt Count (130-400) K/uL MPV (7.2-11.7) fL Neut % (Auto) (50.0-75.0) % Lymph % (Auto) (20.0-40.0) % [place] % (Auto) (0.0-10.0) % Eos % (Auto) (0.0-4.0) % Baso % (Auto) (0.0-2.0) % Neut # (Auto) (1.8-7.0) K/uL Lymph # (Auto) (1.0-4.3) K/uL [place] # (Auto) (0.0-0.8) K/uL Eos # (Auto) (0.0-0.7) K/uL Baso # (Auto) (0.0-0.2) K/uL Neutrophils % (Manual) (50-75) % Band Neutrophils % (0-2) % Lymphocytes % (Manual) (20-40) % Monocytes % (Manual) (0-10) % Nucleated RBC % (0-0) % Differential Comment Platelet Estimate (NORMAL) Polychromasia Hypochromasia (manual) Anisocytosis (manual) Microcytosis (manual) Ovalocytes PT (9.7-12.2) SECONDS INR APTT (21-34) SECONDS Puncture Site pCO2 (35-45) mm/Hg pO2 (30-55) mm/Hg HCO3 (21-28) mmol/L ABG pH (7.35-7.45) ABG Total CO2 (22-28) mmol/L ABG O2 Saturation (95-98) % ABG Base Excess (-2.0-3.0) mmol/L ABG Hemoglobin (11.7-17.4) g/dL ABG Carboxyhemoglobin (0.5-1.5) % POC ABG HHb (Measured) (0.0-5.0) % ABG Methemoglobin (0.0-3.0) % Jeff Test ABG Potassium (3.6-5.2) mmol/L VBG pH (7.32-7.43) VBG pCO2 (40-60) mmHg VBG HCO3 mmol/L VBG Total CO2 (22-28) mmol/L VBG O2 Sat (Calc) (40-65) % VBG Base Excess (0.0-2.0) mmol/L VBG Potassium (3.6-5.2) mmol/L A-a O2 Difference mm/Hg Respiratory Index Hgb O2 Saturation (95.0-98.0) % Sodium (132-148) mmol/l Chloride (98-107) mmol/L Glucose (75-110) mg/dl Lactate (0.7-2.1) mmol/L Vent Mode Mechanical Rate FiO2 % Tidal Volume PEEP Crit Value Called To Crit Value Called By Crit Value Read Back Blood Gas Notified Time Potassium (3.6-5.2) mmol/L Carbon Dioxide (22-30) mmol/L Anion Gap (10-20) BUN (9-20) mg/dL Creatinine (0.8-1.5) mg/dL Est GFR ( Amer) Est GFR (Non-Af Amer) POC Glucose (mg/dL) (65-110) mg/dL Random Glucose (75-110) mg/dL Lactic Acid (0.7-2.1) mmol/L Calcium (8.6-10.4) mg/dl Phosphorus (2.5-4.5) mg/dL Magnesium (1.6-2.3) mg/dL Total Bilirubin (0.2-1.3) mg/dL AST (17-59) U/L ALT (21-72) U/L Alkaline Phosphatase (38-126) U/L Ammonia (9-33) umol/L Total Creatine Kinase 499 H (55-170) U/L CK-MB (Mass) 6.48 H (0.0-3.38) ng/mL Troponin I 0.1380 H* (0.00-0.120) ng/mL Total Protein (6.3-8.3) g/dL Albumin (3.5-5.0) g/dL Globulin (2.2-3.9) gm/dL Albumin/Globulin Ratio (1.0-2.1) Arterial Blood Potassium (3.6-5.2) mmol/L Venous Blood Potassium (3.6-5.2) mmol/L Urine Color Tammy (YELLOW) Urine Clarity Clear (Clear) Urine pH 5.0 (5.0-8.0) Ur Specific [place] 1.025 (1.003-1.030) Urine Protein 3+ H (NEGATIVE) mg/dL Urine Glucose (UA) Normal (Normal) mg/dL Urine Ketones Negative (NEGATIVE) mg/dL Urine Blood 3+ H (NEGATIVE) Urine Nitrate Negative (NEGATIVE) Urine Bilirubin Negative (NEGATIVE) Urine Urobilinogen 2.0 (0.2-1.0) mg/dL Ur Leukocyte Esterase Neg (Negative) Lexie/uL Urine WBC (Auto) 9 H (0-5) /hpf Urine RBC (Auto) 707 H (0-3) /hpf Ur Squamous Epith Cells 1 (0-5) /hpf Urine Yeast (Budding) Few H (NEGATIVE) /hpf Urine Opiates Screen (NEGATIVE) Urine Methadone Screen (NEGATIVE) Ur Barbiturates Screen (NEGATIVE) Ur Phencyclidine Scrn (NEGATIVE) Ur Amphetamines Screen (NEGATIVE) U Benzodiazepines Scrn (NEGATIVE) U Oth Cocaine Metabols (NEGATIVE) U Cannabinoids Screen (NEGATIVE) C. difficile Ag & Toxin Negative (NEGATIVE) Blood Type Antibody Screen 05/06/18 05/06/18 05/05/18 Range/Units 01:01 01:01 23:33 WBC (4.8-10.8) K/uL RBC (4.40-5.90) Mil/uL Hgb (12.0-18.0) g/dL Hct (35.0-51.0) % MCV (80.0-94.0) fL MCH (27.0-31.0) pg MCHC (33.0-37.0) g/dL RDW (11.5-14.5) % Plt Count (130-400) K/uL MPV (7.2-11.7) fL Neut % (Auto) (50.0-75.0) % Lymph % (Auto) (20.0-40.0) % [place] % (Auto) (0.0-10.0) % Eos % (Auto) (0.0-4.0) % Baso % (Auto) (0.0-2.0) % Neut # (Auto) (1.8-7.0) K/uL Lymph # (Auto) (1.0-4.3) K/uL [place] # (Auto) (0.0-0.8) K/uL Eos # (Auto) (0.0-0.7) K/uL Baso # (Auto) (0.0-0.2) K/uL Neutrophils % (Manual) (50-75) % Band Neutrophils % (0-2) % Lymphocytes % (Manual) (20-40) % Monocytes % (Manual) (0-10) % Nucleated RBC % (0-0) % Differential Comment Platelet Estimate (NORMAL) Polychromasia Hypochromasia (manual) Anisocytosis (manual) Microcytosis (manual) Ovalocytes PT (9.7-12.2) SECONDS INR APTT (21-34) SECONDS Puncture Site pCO2 (35-45) mm/Hg pO2 (30-55) mm/Hg HCO3 (21-28) mmol/L ABG pH (7.35-7.45) ABG Total CO2 (22-28) mmol/L ABG O2 Saturation (95-98) % ABG Base Excess (-2.0-3.0) mmol/L ABG Hemoglobin (11.7-17.4) g/dL ABG Carboxyhemoglobin (0.5-1.5) % POC ABG HHb (Measured) (0.0-5.0) % ABG Methemoglobin (0.0-3.0) % Jeff Test ABG Potassium (3.6-5.2) mmol/L VBG pH (7.32-7.43) VBG pCO2 (40-60) mmHg VBG HCO3 mmol/L VBG Total CO2 (22-28) mmol/L VBG O2 Sat (Calc) (40-65) % VBG Base Excess (0.0-2.0) mmol/L VBG Potassium (3.6-5.2) mmol/L A-a O2 Difference mm/Hg Respiratory Index Hgb O2 Saturation (95.0-98.0) % Sodium 141 (132-148) mmol/l Chloride 108 H (98-107) mmol/L Glucose (75-110) mg/dl Lactate (0.7-2.1) mmol/L Vent Mode Mechanical Rate FiO2 % Tidal Volume PEEP Crit Value Called To Crit Value Called By Crit Value Read Back Blood Gas Notified Time Potassium 4.2 (3.6-5.2) mmol/L Carbon Dioxide 24 (22-30) mmol/L Anion Gap 13 (10-20) BUN 13 (9-20) mg/dL Creatinine 0.9 (0.8-1.5) mg/dL Est GFR ( Amer) > 60 Est GFR (Non-Af Amer) > 60 POC Glucose (mg/dL) 127 H (65-110) mg/dL Random Glucose 123 H (75-110) mg/dL Lactic Acid 2.5 H (0.7-2.1) mmol/L Calcium 7.4 L (8.6-10.4) mg/dl Phosphorus 4.3 (2.5-4.5) mg/dL Magnesium 1.4 L (1.6-2.3) mg/dL Total Bilirubin 1.3 (0.2-1.3) mg/dL AST 79 H (17-59) U/L ALT 38 (21-72) U/L Alkaline Phosphatase 92 (38-126) U/L Ammonia (9-33) umol/L Total Creatine Kinase (55-170) U/L CK-MB (Mass) (0.0-3.38) ng/mL Troponin I (0.00-0.120) ng/mL Total Protein 6.3 (6.3-8.3) g/dL Albumin 2.4 L (3.5-5.0) g/dL Globulin 3.9 (2.2-3.9) gm/dL Albumin/Globulin Ratio 0.6 L (1.0-2.1) Arterial Blood Potassium (3.6-5.2) mmol/L Venous Blood Potassium (3.6-5.2) mmol/L Urine Color (YELLOW) Urine Clarity (Clear) Urine pH (5.0-8.0) Ur Specific [place] (1.003-1.030) Urine Protein (NEGATIVE) mg/dL Urine Glucose (UA) (Normal) mg/dL Urine Ketones (NEGATIVE) mg/dL Urine Blood (NEGATIVE) Urine Nitrate (NEGATIVE) Urine Bilirubin (NEGATIVE) Urine Urobilinogen (0.2-1.0) mg/dL Ur Leukocyte Esterase (Negative) Lexie/uL Urine WBC (Auto) (0-5) /hpf Urine RBC (Auto) (0-3) /hpf Ur Squamous Epith Cells (0-5) /hpf Urine Yeast (Budding) (NEGATIVE) /hpf Urine Opiates Screen (NEGATIVE) Urine Methadone Screen (NEGATIVE) Ur Barbiturates Screen (NEGATIVE) Ur Phencyclidine Scrn (NEGATIVE) Ur Amphetamines Screen (NEGATIVE) U Benzodiazepines Scrn (NEGATIVE) U Oth Cocaine Metabols (NEGATIVE) U Cannabinoids Screen (NEGATIVE) C. difficile Ag & Toxin (NEGATIVE) Blood Type Antibody Screen 05/05/18 05/05/18 05/05/18 Range/Units 21:50 19:25 17:47 WBC (4.8-10.8) K/uL RBC (4.40-5.90) Mil/uL Hgb (12.0-18.0) g/dL Hct (35.0-51.0) % MCV (80.0-94.0) fL MCH (27.0-31.0) pg MCHC (33.0-37.0) g/dL RDW (11.5-14.5) % Plt Count (130-400) K/uL MPV (7.2-11.7) fL Neut % (Auto) (50.0-75.0) % Lymph % (Auto) (20.0-40.0) % [place] % (Auto) (0.0-10.0) % Eos % (Auto) (0.0-4.0) % Baso % (Auto) (0.0-2.0) % Neut # (Auto) (1.8-7.0) K/uL Lymph # (Auto) (1.0-4.3) K/uL [place] # (Auto) (0.0-0.8) K/uL Eos # (Auto) (0.0-0.7) K/uL Baso # (Auto) (0.0-0.2) K/uL Neutrophils % (Manual) (50-75) % Band Neutrophils % (0-2) % Lymphocytes % (Manual) (20-40) % Monocytes % (Manual) (0-10) % Nucleated RBC % (0-0) % Differential Comment Platelet Estimate (NORMAL) Polychromasia Hypochromasia (manual) Anisocytosis (manual) Microcytosis (manual) Ovalocytes PT (9.7-12.2) SECONDS INR APTT (21-34) SECONDS Puncture Site Rba Rr pCO2 42 77 H* (35-45) mm/Hg pO2 77 L 116 H 22 L (30-55) mm/Hg HCO3 22.6 15.3 L (21-28) mmol/L ABG pH 7.34 L 7.02 L* (7.35-7.45) ABG Total CO2 24.0 22.3 (22-28) mmol/L ABG O2 Saturation 97.1 97.7 (95-98) % ABG Base Excess -2.9 L -12.3 L (-2.0-3.0) mmol/L ABG Hemoglobin 8.5 L (11.7-17.4) g/dL ABG Carboxyhemoglobin 2.7 H (0.5-1.5) % POC ABG HHb (Measured) 2.8 (0.0-5.0) % ABG Methemoglobin 1.1 (0.0-3.0) % Jeff Test Na Yes ABG Potassium 4.1 (3.6-5.2) mmol/L VBG pH 7.42 (7.32-7.43) VBG pCO2 30 L (40-60) mmHg VBG HCO3 20.3 mmol/L VBG Total CO2 20.4 L (22-28) mmol/L VBG O2 Sat (Calc) 34.1 L (40-65) % VBG Base Excess -3.9 L (0.0-2.0) mmol/L VBG Potassium 4.0 (3.6-5.2) mmol/L A-a O2 Difference 156.0 73.0 mm/Hg Respiratory Index 2.0 0.6 Hgb O2 Saturation 93.4 L (95.0-98.0) % Sodium 142.0 142.0 (132-148) mmol/l Chloride 109.0 H 110.0 H (98-107) mmol/L Glucose 114 H 102 (75-110) mg/dl Lactate 5.1 H* 6.4 H* (0.7-2.1) mmol/L Vent Mode Prvc Mechanical Rate 20 FiO2 40.0 40.0 % Tidal Volume 500 PEEP 5 Crit Value Called To Ed roberth alexandra Crit Value Called By Annemarie johnston Crit Value Read Back Y Y Blood Gas Notified Time 1954 1749 Potassium (3.6-5.2) mmol/L Carbon Dioxide (22-30) mmol/L Anion Gap (10-20) BUN (9-20) mg/dL Creatinine (0.8-1.5) mg/dL Est GFR ( Amer) Est GFR (Non-Af Amer) POC Glucose (mg/dL) (65-110) mg/dL Random Glucose (75-110) mg/dL Lactic Acid (0.7-2.1) mmol/L Calcium (8.6-10.4) mg/dl Phosphorus (2.5-4.5) mg/dL Magnesium (1.6-2.3) mg/dL Total Bilirubin (0.2-1.3) mg/dL AST (17-59) U/L ALT (21-72) U/L Alkaline Phosphatase (38-126) U/L Ammonia (9-33) umol/L Total Creatine Kinase (55-170) U/L CK-MB (Mass) (0.0-3.38) ng/mL Troponin I (0.00-0.120) ng/mL Total Protein (6.3-8.3) g/dL Albumin (3.5-5.0) g/dL Globulin (2.2-3.9) gm/dL Albumin/Globulin Ratio (1.0-2.1) Arterial Blood Potassium 4.1 (3.6-5.2) mmol/L Venous Blood Potassium 4.0 (3.6-5.2) mmol/L Urine Color (YELLOW) Urine Clarity (Clear) Urine pH (5.0-8.0) Ur Specific [place] (1.003-1.030) Urine Protein (NEGATIVE) mg/dL Urine Glucose (UA) (Normal) mg/dL Urine Ketones (NEGATIVE) mg/dL Urine Blood (NEGATIVE) Urine Nitrate (NEGATIVE) Urine Bilirubin (NEGATIVE) Urine Urobilinogen (0.2-1.0) mg/dL Ur Leukocyte Esterase (Negative) Lexie/uL Urine WBC (Auto) (0-5) /hpf Urine RBC (Auto) (0-3) /hpf Ur Squamous Epith Cells (0-5) /hpf Urine Yeast (Budding) (NEGATIVE) /hpf Urine Opiates Screen (NEGATIVE) Urine Methadone Screen (NEGATIVE) Ur Barbiturates Screen (NEGATIVE) Ur Phencyclidine Scrn (NEGATIVE) Ur Amphetamines Screen (NEGATIVE) U Benzodiazepines Scrn (NEGATIVE) U Oth Cocaine Metabols (NEGATIVE) U Cannabinoids Screen (NEGATIVE) C. difficile Ag & Toxin (NEGATIVE) Blood Type Antibody Screen 05/05/18 Range/Units 17:45 WBC (4.8-10.8) K/uL RBC (4.40-5.90) Mil/uL Hgb (12.0-18.0) g/dL Hct (35.0-51.0) % MCV (80.0-94.0) fL MCH (27.0-31.0) pg MCHC (33.0-37.0) g/dL RDW (11.5-14.5) % Plt Count (130-400) K/uL MPV (7.2-11.7) fL Neut % (Auto) (50.0-75.0) % Lymph % (Auto) (20.0-40.0) % [place] % (Auto) (0.0-10.0) % Eos % (Auto) (0.0-4.0) % Baso % (Auto) (0.0-2.0) % Neut # (Auto) (1.8-7.0) K/uL Lymph # (Auto) (1.0-4.3) K/uL [place] # (Auto) (0.0-0.8) K/uL Eos # (Auto) (0.0-0.7) K/uL Baso # (Auto) (0.0-0.2) K/uL Neutrophils % (Manual) (50-75) % Band Neutrophils % (0-2) % Lymphocytes % (Manual) (20-40) % Monocytes % (Manual) (0-10) % Nucleated RBC % (0-0) % Differential Comment Platelet Estimate (NORMAL) Polychromasia Hypochromasia (manual) Anisocytosis (manual) Microcytosis (manual) Ovalocytes PT (9.7-12.2) SECONDS INR APTT (21-34) SECONDS Puncture Site pCO2 (35-45) mm/Hg pO2 (30-55) mm/Hg HCO3 (21-28) mmol/L ABG pH (7.35-7.45) ABG Total CO2 (22-28) mmol/L ABG O2 Saturation (95-98) % ABG Base Excess (-2.0-3.0) mmol/L ABG Hemoglobin (11.7-17.4) g/dL ABG Carboxyhemoglobin (0.5-1.5) % POC ABG HHb (Measured) (0.0-5.0) % ABG Methemoglobin (0.0-3.0) % Jeff Test ABG Potassium (3.6-5.2) mmol/L VBG pH (7.32-7.43) VBG pCO2 (40-60) mmHg VBG HCO3 mmol/L VBG Total CO2 (22-28) mmol/L VBG O2 Sat (Calc) (40-65) % VBG Base Excess (0.0-2.0) mmol/L VBG Potassium (3.6-5.2) mmol/L A-a O2 Difference mm/Hg Respiratory Index Hgb O2 Saturation (95.0-98.0) % Sodium (132-148) mmol/l Chloride (98-107) mmol/L Glucose (75-110) mg/dl Lactate (0.7-2.1) mmol/L Vent Mode Mechanical Rate FiO2 % Tidal Volume PEEP Crit Value Called To Crit Value Called By Crit Value Read Back Blood Gas Notified Time Potassium (3.6-5.2) mmol/L Carbon Dioxide (22-30) mmol/L Anion Gap (10-20) BUN (9-20) mg/dL Creatinine (0.8-1.5) mg/dL Est GFR ( Amer) Est GFR (Non-Af Amer) POC Glucose (mg/dL) (65-110) mg/dL Random Glucose (75-110) mg/dL Lactic Acid (0.7-2.1) mmol/L Calcium (8.6-10.4) mg/dl Phosphorus (2.5-4.5) mg/dL Magnesium (1.6-2.3) mg/dL Total Bilirubin (0.2-1.3) mg/dL AST (17-59) U/L ALT (21-72) U/L Alkaline Phosphatase (38-126) U/L Ammonia (9-33) umol/L Total Creatine Kinase (55-170) U/L CK-MB (Mass) (0.0-3.38) ng/mL Troponin I (0.00-0.120) ng/mL Total Protein (6.3-8.3) g/dL Albumin (3.5-5.0) g/dL Globulin (2.2-3.9) gm/dL Albumin/Globulin Ratio (1.0-2.1) Arterial Blood Potassium (3.6-5.2) mmol/L Venous Blood Potassium (3.6-5.2) mmol/L Urine Color (YELLOW) Urine Clarity (Clear) Urine pH (5.0-8.0) Ur Specific [place] (1.003-1.030) Urine Protein (NEGATIVE) mg/dL Urine Glucose (UA) (Normal) mg/dL Urine Ketones (NEGATIVE) mg/dL Urine Blood (NEGATIVE) Urine Nitrate (NEGATIVE) Urine Bilirubin (NEGATIVE) Urine Urobilinogen (0.2-1.0) mg/dL Ur Leukocyte Esterase (Negative) Lexie/uL Urine WBC (Auto) (0-5) /hpf Urine RBC (Auto) (0-3) /hpf Ur Squamous Epith Cells (0-5) /hpf Urine Yeast (Budding) (NEGATIVE) /hpf Urine Opiates Screen (NEGATIVE) Urine Methadone Screen (NEGATIVE) Ur Barbiturates Screen (NEGATIVE) Ur Phencyclidine Scrn (NEGATIVE) Ur Amphetamines Screen (NEGATIVE) U Benzodiazepines Scrn (NEGATIVE) U Oth Cocaine Metabols (NEGATIVE) U Cannabinoids Screen (NEGATIVE) C. difficile Ag & Toxin (NEGATIVE) Blood Type AB POSITIVE Antibody Screen Negative Laboratory Results - last 24 hr 05/05/18 05/05/18 05/05/18 17:45 17:47 19:25 WBC RBC Hgb Hct MCV MCH MCHC RDW Plt Count MPV Neut % (Auto) Lymph % (Auto) [place] % (Auto) Eos % (Auto) Baso % (Auto) Neut # (Auto) Lymph # (Auto) [place] # (Auto) Eos # (Auto) Baso # (Auto) Neutrophils % (Manual) Band Neutrophils % Lymphocytes % (Manual) Monocytes % (Manual) Nucleated RBC % Differential Comment Platelet Estimate Polychromasia Hypochromasia (manual) Anisocytosis (manual) Microcytosis (manual) Ovalocytes PT INR APTT Puncture Site Rr pCO2 77 H* pO2 22 L 116 H HCO3 15.3 L ABG pH 7.02 L* ABG Total CO2 22.3 ABG O2 Saturation 97.7 ABG Base Excess -12.3 L ABG Hemoglobin ABG Carboxyhemoglobin POC ABG HHb (Measured) ABG Methemoglobin Jeff Test Yes ABG Potassium 4.1 VBG pH 7.42 VBG pCO2 30 L VBG HCO3 20.3 VBG Total CO2 20.4 L VBG O2 Sat (Calc) 34.1 L VBG Base Excess -3.9 L VBG Potassium 4.0 A-a O2 Difference 73.0 Respiratory Index 0.6 Hgb O2 Saturation Sodium 142.0 142.0 Chloride 110.0 H 109.0 H Glucose 102 114 H Lactate 6.4 H* 5.1 H* Vent Mode Mechanical Rate FiO2 40.0 Tidal Volume PEEP Crit Value Called To Dr nasrin Moreno rn Crit Value Called By Jasvir Sharpe rt Crit Value Read Back Y Y Blood Gas Notified Time 1749 1954 Potassium Carbon Dioxide Anion Gap BUN Creatinine Est GFR ( Amer) Est GFR (Non-Af Amer) POC Glucose (mg/dL) Random Glucose Lactic Acid Calcium Phosphorus Magnesium Total Bilirubin AST ALT Alkaline Phosphatase Ammonia Total Creatine Kinase CK-MB (Mass) Troponin I Total Protein Albumin Globulin Albumin/Globulin Ratio Arterial Blood Potassium 4.1 Venous Blood Potassium 4.0 Urine Color Urine Clarity Urine pH Ur Specific [place] Urine Protein Urine Glucose (UA) Urine Ketones Urine Blood Urine Nitrate Urine Bilirubin Urine Urobilinogen Ur Leukocyte Esterase Urine WBC (Auto) Urine RBC (Auto) Ur Squamous Epith Cells Urine Yeast (Budding) Urine Opiates Screen Urine Methadone Screen Ur Barbiturates Screen Ur Phencyclidine Scrn Ur Amphetamines Screen U Benzodiazepines Scrn U Oth Cocaine Metabols U Cannabinoids Screen C. difficile Ag & Toxin Blood Type AB POSITIVE Antibody Screen Negative 05/05/18 05/05/18 05/06/18 21:50 23:33 01:01 WBC RBC Hgb Hct MCV MCH MCHC RDW Plt Count MPV Neut % (Auto) Lymph % (Auto) [place] % (Auto) Eos % (Auto) Baso % (Auto) Neut # (Auto) Lymph # (Auto) [place] # (Auto) Eos # (Auto) Baso # (Auto) Neutrophils % (Manual) Band Neutrophils % Lymphocytes % (Manual) Monocytes % (Manual) Nucleated RBC % Differential Comment Platelet Estimate Polychromasia Hypochromasia (manual) Anisocytosis (manual) Microcytosis (manual) Ovalocytes PT INR APTT Puncture Site Rba pCO2 42 pO2 77 L HCO3 22.6 ABG pH 7.34 L ABG Total CO2 24.0 ABG O2 Saturation 97.1 ABG Base Excess -2.9 L ABG Hemoglobin 8.5 L ABG Carboxyhemoglobin 2.7 H POC ABG HHb (Measured) 2.8 ABG Methemoglobin 1.1 Jeff Test Na ABG Potassium VBG pH VBG pCO2 VBG HCO3 VBG Total CO2 VBG O2 Sat (Calc) VBG Base Excess VBG Potassium A-a O2 Difference 156.0 Respiratory Index 2.0 Hgb O2 Saturation 93.4 L Sodium 141 Chloride 108 H Glucose Lactate Vent Mode Prvc Mechanical Rate 20 FiO2 40.0 Tidal Volume 500 PEEP 5 Crit Value Called To Crit Value Called By Crit Value Read Back Blood Gas Notified Time Potassium 4.2 Carbon Dioxide 24 Anion Gap 13 BUN 13 Creatinine 0.9 Est GFR ( Amer) > 60 Est GFR (Non-Af Amer) > 60 POC Glucose (mg/dL) 127 H Random Glucose 123 H Lactic Acid Calcium 7.4 L Phosphorus 4.3 Magnesium 1.4 L Total Bilirubin 1.3 AST 79 H ALT 38 Alkaline Phosphatase 92 Ammonia Total Creatine Kinase CK-MB (Mass) Troponin I Total Protein 6.3 Albumin 2.4 L Globulin 3.9 Albumin/Globulin Ratio 0.6 L Arterial Blood Potassium Venous Blood Potassium Urine Color Urine Clarity Urine pH Ur Specific [place] Urine Protein Urine Glucose (UA) Urine Ketones Urine Blood Urine Nitrate Urine Bilirubin Urine Urobilinogen Ur Leukocyte Esterase Urine WBC (Auto) Urine RBC (Auto) Ur Squamous Epith Cells Urine Yeast (Budding) Urine Opiates Screen Urine Methadone Screen Ur Barbiturates Screen Ur Phencyclidine Scrn Ur Amphetamines Screen U Benzodiazepines Scrn U Oth Cocaine Metabols U Cannabinoids Screen C. difficile Ag & Toxin Blood Type Antibody Screen 05/06/18 05/06/18 05/06/18 01:01 01:01 03:25 WBC RBC Hgb Hct MCV MCH MCHC RDW Plt Count MPV Neut % (Auto) Lymph % (Auto) [place] % (Auto) Eos % (Auto) Baso % (Auto) Neut # (Auto) Lymph # (Auto) [place] # (Auto) Eos # (Auto) Baso # (Auto) Neutrophils % (Manual) Band Neutrophils % Lymphocytes % (Manual) Monocytes % (Manual) Nucleated RBC % Differential Comment Platelet Estimate Polychromasia Hypochromasia (manual) Anisocytosis (manual) Microcytosis (manual) Ovalocytes PT INR APTT Puncture Site pCO2 pO2 HCO3 ABG pH ABG Total CO2 ABG O2 Saturation ABG Base Excess ABG Hemoglobin ABG Carboxyhemoglobin POC ABG HHb (Measured) ABG Methemoglobin Jeff Test ABG Potassium VBG pH VBG pCO2 VBG HCO3 VBG Total CO2 VBG O2 Sat (Calc) VBG Base Excess VBG Potassium A-a O2 Difference Respiratory Index Hgb O2 Saturation Sodium Chloride Glucose Lactate Vent Mode Mechanical Rate FiO2 Tidal Volume PEEP Crit Value Called To Crit Value Called By Crit Value Read Back Blood Gas Notified Time Potassium Carbon Dioxide Anion Gap BUN Creatinine Est GFR ( Amer) Est GFR (Non-Af Amer) POC Glucose (mg/dL) Random Glucose Lactic Acid 2.5 H Calcium Phosphorus Magnesium Total Bilirubin AST ALT Alkaline Phosphatase Ammonia Total Creatine Kinase 499 H CK-MB (Mass) 6.48 H Troponin I 0.1380 H* Total Protein Albumin Globulin Albumin/Globulin Ratio Arterial Blood Potassium Venous Blood Potassium Urine Color Urine Clarity Urine pH Ur Specific [place] Urine Protein Urine Glucose (UA) Urine Ketones Urine Blood Urine Nitrate Urine Bilirubin Urine Urobilinogen Ur Leukocyte Esterase Urine WBC (Auto) Urine RBC (Auto) Ur Squamous Epith Cells Urine Yeast (Budding) Urine Opiates Screen Urine Methadone Screen Ur Barbiturates Screen Ur Phencyclidine Scrn Ur Amphetamines Screen U Benzodiazepines Scrn U Oth Cocaine Metabols U Cannabinoids Screen C. difficile Ag & Toxin Negative Blood Type Antibody Screen 05/06/18 05/06/18 05/06/18 03:26 03:26 03:28 WBC 14.6 H RBC 3.51 L Hgb 7.7 L Hct 25.6 L MCV 72.9 L MCH 22.0 L MCHC 30.1 L RDW 22.4 H Plt Count 36 L D MPV 8.4 Neut % (Auto) 90.3 H Lymph % (Auto) 5.6 L [place] % (Auto) 3.5 Eos % (Auto) 0.0 Baso % (Auto) 0.6 Neut # (Auto) 13.2 H Lymph # (Auto) 0.8 L [place] # (Auto) 0.5 Eos # (Auto) 0.0 Baso # (Auto) 0.1 Neutrophils % (Manual) 94 H Band Neutrophils % 1 Lymphocytes % (Manual) 4 L Monocytes % (Manual) 1 Nucleated RBC % 1 H Differential Comment Platelet Estimate Decreased L Polychromasia Slight Hypochromasia (manual) Moderate Anisocytosis (manual) Moderate Microcytosis (manual) Slight Ovalocytes Slight PT INR APTT Puncture Site pCO2 pO2 HCO3 ABG pH ABG Total CO2 ABG O2 Saturation ABG Base Excess ABG Hemoglobin ABG Carboxyhemoglobin POC ABG HHb (Measured) ABG Methemoglobin Jeff Test ABG Potassium VBG pH VBG pCO2 VBG HCO3 VBG Total CO2 VBG O2 Sat (Calc) VBG Base Excess VBG Potassium A-a O2 Difference Respiratory Index Hgb O2 Saturation Sodium Chloride Glucose Lactate Vent Mode Mechanical Rate FiO2 Tidal Volume PEEP Crit Value Called To Crit Value Called By Crit Value Read Back Blood Gas Notified Time Potassium Carbon Dioxide Anion Gap BUN Creatinine Est GFR ( Amer) Est GFR (Non-Af Amer) POC Glucose (mg/dL) Random Glucose Lactic Acid Calcium Phosphorus Magnesium Total Bilirubin AST ALT Alkaline Phosphatase Ammonia Total Creatine Kinase CK-MB (Mass) Troponin I Total Protein Albumin Globulin Albumin/Globulin Ratio Arterial Blood Potassium Venous Blood Potassium Urine Color Tammy Urine Clarity Clear Urine pH 5.0 Ur Specific [place] 1.025 Urine Protein 3+ H Urine Glucose (UA) Normal Urine Ketones Negative Urine Blood 3+ H Urine Nitrate Negative Urine Bilirubin Negative Urine Urobilinogen 2.0 Ur Leukocyte Esterase Neg Urine WBC (Auto) 9 H Urine RBC (Auto) 707 H Ur Squamous Epith Cells 1 Urine Yeast (Budding) Few H Urine Opiates Screen Negative Urine Methadone Screen Negative Ur Barbiturates Screen Negative Ur Phencyclidine Scrn Negative Ur Amphetamines Screen Negative U Benzodiazepines Scrn Negative U Oth Cocaine Metabols Negative U Cannabinoids Screen Negative C. difficile Ag & Toxin Blood Type Antibody Screen 05/06/18 05/06/18 05/06/18 04:20 05:48 06:22 WBC RBC Hgb Hct MCV MCH MCHC RDW Plt Count MPV Neut % (Auto) Lymph % (Auto) [place] % (Auto) Eos % (Auto) Baso % (Auto) Neut # (Auto) Lymph # (Auto) [place] # (Auto) Eos # (Auto) Baso # (Auto) Neutrophils % (Manual) Band Neutrophils % Lymphocytes % (Manual) Monocytes % (Manual) Nucleated RBC % Differential Comment Platelet Estimate Polychromasia Hypochromasia (manual) Anisocytosis (manual) Microcytosis (manual) Ovalocytes PT INR APTT Puncture Site Rr pCO2 31 L pO2 121 H HCO3 24.3 ABG pH 7.46 H ABG Total CO2 23.0 ABG O2 Saturation 99.4 H ABG Base Excess -0.9 ABG Hemoglobin ABG Carboxyhemoglobin POC ABG HHb (Measured) ABG Methemoglobin Jeff Test Pos ABG Potassium 3.6 VBG pH VBG pCO2 VBG HCO3 VBG Total CO2 VBG O2 Sat (Calc) VBG Base Excess VBG Potassium A-a O2 Difference 125.0 Respiratory Index 1.0 Hgb O2 Saturation Sodium 143.0 138 Chloride 117.0 H 110 H Glucose 123 H Lactate 1.3 Vent Mode Prvc Mechanical Rate 20 FiO2 40.0 Tidal Volume 500 PEEP 5 Crit Value Called To Crit Value Called By Crit Value Read Back Blood Gas Notified Time Potassium 4.0 Carbon Dioxide 24 Anion Gap 9 L BUN 15 Creatinine 0.9 Est GFR ( Amer) > 60 Est GFR (Non-Af Amer) > 60 POC Glucose (mg/dL) 108 Random Glucose 125 H Lactic Acid Calcium 7.0 L Phosphorus 4.0 Magnesium 1.8 Total Bilirubin 1.1 AST 58 ALT 31 Alkaline Phosphatase 84 Ammonia Total Creatine Kinase 292 H CK-MB (Mass) 3.60 H Troponin I 0.1260 H* Total Protein 5.3 L Albumin 2.0 L Globulin 3.4 Albumin/Globulin Ratio 0.6 L Arterial Blood Potassium 3.6 Venous Blood Potassium Urine Color Urine Clarity Urine pH Ur Specific [place] Urine Protein Urine Glucose (UA) Urine Ketones Urine Blood Urine Nitrate Urine Bilirubin Urine Urobilinogen Ur Leukocyte Esterase Urine WBC (Auto) Urine RBC (Auto) Ur Squamous Epith Cells Urine Yeast (Budding) Urine Opiates Screen Urine Methadone Screen Ur Barbiturates Screen Ur Phencyclidine Scrn Ur Amphetamines Screen U Benzodiazepines Scrn U Oth Cocaine Metabols U Cannabinoids Screen C. difficile Ag & Toxin Blood Type Antibody Screen 05/06/18 05/06/18 05/06/18 06:22 06:22 06:22 WBC RBC Hgb Hct MCV MCH MCHC RDW Plt Count MPV Neut % (Auto) Lymph % (Auto) [place] % (Auto) Eos % (Auto) Baso % (Auto) Neut # (Auto) Lymph # (Auto) [place] # (Auto) Eos # (Auto) Baso # (Auto) Neutrophils % (Manual) Band Neutrophils % Lymphocytes % (Manual) Monocytes % (Manual) Nucleated RBC % Differential Comment Platelet Estimate Polychromasia Hypochromasia (manual) Anisocytosis (manual) Microcytosis (manual) Ovalocytes PT 19.8 H INR 1.8 APTT 38 H Puncture Site pCO2 pO2 HCO3 ABG pH ABG Total CO2 ABG O2 Saturation ABG Base Excess ABG Hemoglobin ABG Carboxyhemoglobin POC ABG HHb (Measured) ABG Methemoglobin Jeff Test ABG Potassium VBG pH VBG pCO2 VBG HCO3 VBG Total CO2 VBG O2 Sat (Calc) VBG Base Excess VBG Potassium A-a O2 Difference Respiratory Index Hgb O2 Saturation Sodium Chloride Glucose Lactate Vent Mode Mechanical Rate FiO2 Tidal Volume PEEP Crit Value Called To Crit Value Called By Crit Value Read Back Blood Gas Notified Time Potassium Carbon Dioxide Anion Gap BUN Creatinine Est GFR ( Amer) Est GFR (Non-Af Amer) POC Glucose (mg/dL) Random Glucose Lactic Acid Calcium Phosphorus Magnesium Total Bilirubin AST ALT Alkaline Phosphatase Ammonia 65 H D Total Creatine Kinase CK-MB (Mass) Troponin I Total Protein Albumin Globulin Albumin/Globulin Ratio Arterial Blood Potassium Venous Blood Potassium Urine Color Urine Clarity Urine pH Ur Specific [place] Urine Protein Urine Glucose (UA) Urine Ketones Urine Blood Urine Nitrate Urine Bilirubin Urine Urobilinogen Ur Leukocyte Esterase Urine WBC (Auto) Urine RBC (Auto) Ur Squamous Epith Cells Urine Yeast (Budding) Urine Opiates Screen Urine Methadone Screen Ur Barbiturates Screen Ur Phencyclidine Scrn Ur Amphetamines Screen U Benzodiazepines Scrn U Oth Cocaine Metabols U Cannabinoids Screen C. difficile Ag & Toxin Blood Type AB POSITIVE Antibody Screen Negative 05/06/18 05/06/18 05/06/18 06:26 06:26 09:12 WBC 11.3 H RBC 3.20 L Hgb 7.2 L Hct 23.1 L MCV 72.0 L MCH 22.5 L MCHC 31.2 L RDW 22.8 H Plt Count 32 L MPV 8.3 Neut % (Auto) 86.4 H Lymph % (Auto) 9.0 L [place] % (Auto) 4.4 Eos % (Auto) 0.1 Baso % (Auto) 0.1 Neut # (Auto) 9.7 H Lymph # (Auto) 1.0 [place] # (Auto) 0.5 Eos # (Auto) 0.0 Baso # (Auto) 0.0 Neutrophils % (Manual) Band Neutrophils % Lymphocytes % (Manual) Monocytes % (Manual) Nucleated RBC % Differential Comment Platelet Estimate Polychromasia Hypochromasia (manual) Anisocytosis (manual) Microcytosis (manual) Ovalocytes PT INR APTT Puncture Site pCO2 pO2 HCO3 ABG pH ABG Total CO2 ABG O2 Saturation ABG Base Excess ABG Hemoglobin ABG Carboxyhemoglobin POC ABG HHb (Measured) ABG Methemoglobin Jeff Test ABG Potassium VBG pH VBG pCO2 VBG HCO3 VBG Total CO2 VBG O2 Sat (Calc) VBG Base Excess VBG Potassium A-a O2 Difference Respiratory Index Hgb O2 Saturation Sodium Chloride Glucose Lactate Vent Mode Mechanical Rate FiO2 Tidal Volume PEEP Crit Value Called To Crit Value Called By Crit Value Read Back Blood Gas Notified Time Potassium Carbon Dioxide Anion Gap BUN Creatinine Est GFR ( Amer) Est GFR (Non-Af Amer) POC Glucose (mg/dL) Random Glucose Lactic Acid 1.3 1.3 Calcium Phosphorus Magnesium Total Bilirubin AST ALT Alkaline Phosphatase Ammonia Total Creatine Kinase CK-MB (Mass) Troponin I Total Protein Albumin Globulin Albumin/Globulin Ratio Arterial Blood Potassium Venous Blood Potassium Urine Color Urine Clarity Urine pH Ur Specific [place] Urine Protein Urine Glucose (UA) Urine Ketones Urine Blood Urine Nitrate Urine Bilirubin Urine Urobilinogen Ur Leukocyte Esterase Urine WBC (Auto) Urine RBC (Auto) Ur Squamous Epith Cells Urine Yeast (Budding) Urine Opiates Screen Urine Methadone Screen Ur Barbiturates Screen Ur Phencyclidine Scrn Ur Amphetamines Screen U Benzodiazepines Scrn U Oth Cocaine Metabols U Cannabinoids Screen C. difficile Ag & Toxin Blood Type Antibody Screen 05/06/18 11:30 WBC RBC Hgb Hct MCV MCH MCHC RDW Plt Count MPV Neut % (Auto) Lymph % (Auto) [place] % (Auto) Eos % (Auto) Baso % (Auto) Neut # (Auto) Lymph # (Auto) [place] # (Auto) Eos # (Auto) Baso # (Auto) Neutrophils % (Manual) Band Neutrophils % Lymphocytes % (Manual) Monocytes % (Manual) Nucleated RBC % Differential Comment Platelet Estimate Polychromasia Hypochromasia (manual) Anisocytosis (manual) Microcytosis (manual) Ovalocytes PT INR APTT Puncture Site pCO2 pO2 HCO3 ABG pH ABG Total CO2 ABG O2 Saturation ABG Base Excess ABG Hemoglobin ABG Carboxyhemoglobin POC ABG HHb (Measured) ABG Methemoglobin Jeff Test ABG Potassium VBG pH VBG pCO2 VBG HCO3 VBG Total CO2 VBG O2 Sat (Calc) VBG Base Excess VBG Potassium A-a O2 Difference Respiratory Index Hgb O2 Saturation Sodium Chloride Glucose Lactate Vent Mode Mechanical Rate FiO2 Tidal Volume PEEP Crit Value Called To Crit Value Called By Crit Value Read Back Blood Gas Notified Time Potassium Carbon Dioxide Anion Gap BUN Creatinine Est GFR ( Amer) Est GFR (Non-Af Amer) POC Glucose (mg/dL) 115 H Random Glucose Lactic Acid Calcium Phosphorus Magnesium Total Bilirubin AST ALT Alkaline Phosphatase Ammonia Total Creatine Kinase CK-MB (Mass) Troponin I Total Protein Albumin Globulin Albumin/Globulin Ratio Arterial Blood Potassium Venous Blood Potassium Urine Color Urine Clarity Urine pH Ur Specific [place] Urine Protein Urine Glucose (UA) Urine Ketones Urine Blood Urine Nitrate Urine Bilirubin Urine Urobilinogen Ur Leukocyte Esterase Urine WBC (Auto) Urine RBC (Auto) Ur Squamous Epith Cells Urine Yeast (Budding) Urine Opiates Screen Urine Methadone Screen Ur Barbiturates Screen Ur Phencyclidine Scrn Ur Amphetamines Screen U Benzodiazepines Scrn U Oth Cocaine Metabols U Cannabinoids Screen C. difficile Ag & Toxin Blood Type Antibody Screen Assessment/Plan - Assessment and Plan (Free Text) Plan: Patient seen and examined at bedside. Patient s/p ativan by ER physician. POSt ativan, patient had hypercapneic respriatory failure. ? seizures, however lactic not very high. -tolerating CPAP, extubate -Sepsis: suspect MRSA: continue vanco/zosyn , serial lactic, avoid fluid overloaded states as patient congested, zamudio culture -NSTEMI: suspect uderlying CAD: minor increase in trop, (+)bleeding, low platelets, obtain cardiology input -Thrombocytopenia: low platelets possible 2nd hyperplenism 2nd liver chirrosis, continue to monitor -AMS: resolved, avoid benzos or other sedatives, CT head pending -DT: use precedex -PUD ppx PPI -DVT ppx scds d/c stacy thomas time 35 minutes - Date & Time Date: 05/06/18 Time: 16:53
[2018-05-06 08:11] LABS: BANDS 1 % (0-2); LYMPHOCYTE 4 % (20-40); NUCLEATED RED BLOOD CELL 1 % (0-0); TOTAL CELLS COUNTED 100
[2018-05-06 08:12] LABS: ANISOCYTOSIS MODERATE; MICROCYTOSIS SLIGHT; MONOCYTE 1 % (0-10); NEUTROPHIL 94 % (50-75); PLATELET ESTIMATE DECREASED (NORMAL)
[2018-05-06 08:14] LABS: HYPOCHROMIC MODERATE
[2018-05-06 08:15] LABS: OVALOCYTES SLIGHT; POLYCHROMIC SLIGHT
[2018-05-06] MEDS ORDERED: methylPREDNISolone 125 MG in Sodium Chloride 0.9% 100 ML IVPB ONE (09:06)
--- NOTE | 2018-05-06 09:30 | CP.PCM.CON ---
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 There was also some reports of URI symptoms with NSAID and APAP use. In the ED, he had increased work of breathing and seizure activity described as generalized convulsions and loss of consciousness. He was given benzos with resolution and later intubated. GI consulted for liver cirrhosis. Unable to obtain ROS due to clinical condition MHx: See Above Surgical History- right leg hematoma drainage 10/2017 Meds: Reviewed in [facility] FamHx: father- heart transplant and on hemodialysis SocHx: Supposed was sober > 6 months but EtOH lvl 52 and h/o daily vodka use; neg tob or illicits All: NKDA EGD 08/15/17: Gastritis (Hp-). EGD 2015 with Gr1 E CSPY 10/2015: Int Hemorrhoids Past Patient History - Infectious Disease Hx of Infectious Diseases: None - Past Medical History & Family History Past Medical History?: Yes - Past Social History Smoking Status: Never Smoked - CARDIAC Hx Cardiac Disorders: Yes Hx Angina: No Hx Atrial Fibrillation: No Hx Cardia Arrhythmia: No Hx Circulatory Problems: No Hx Congestive Heart Failure: Yes Hx Heart Attack: No Hx Heart Murmur: No Hx Heart Transplant: No Hx Hypercholesterolemia: Yes Hx Hypertension: Yes Hx Hypotension: No Hx Internal Defibrillator: No Hx Mitral Valve Prolapse: No Hx Pacemaker: No Hx Peripheral Edema: Yes Hx Peripheral Vascular Disease: No - PULMONARY Hx Respiratory Disorders: Yes Hx Asthma: Yes Hx Bronchitis: No Hx Chronic Obstructive Pulmonary Disease (COPD): No Hx Emphysema: No Hx Lung Cancer: No Hx Pneumonia: Yes (3 years ago) Hx Pulmonary Edema: No Hx Pulmonary Embolism: No Hx Respiratory Aspiration: No Hx Respiratory Tract Infection: No Hx Sleep Apnea: No Hx Tuberculosis: No - NEUROLOGICAL Hx Neurological Disorder: Yes Hx Alzheimer's Disease: No HX Cerebrovascular Accident: No Hx Dementia: No Hx Dizziness: No Hx Meningitis: No Hx Migraine: No Hx Multiple Sclerosis: No Hx Paralysis: No Hx Parkinson's Disease: No Hx Seizures: Yes (etoh induced) Hx Syncope: No Hx Transient Ischemic Attacks (TIA): No Hx Vertigo: No - HEENT Hx HEENT Problems: Yes Hx Blind: No Hx Cataracts: No Hx Deafness: No Hx Difficulty Chewing: No Hx Epistaxis: No Hx Glaucoma: No Hx Macular Degeneration: No Hx Sinusitis: No Other/Comment: eye glasses for reading - RENAL Hx Chronic Kidney Disease: No Hx Dialysis: No Hx Kidney Stones: No Hx Neurogenic Bladder: No Hx Pyelonephritis: No Hx Renal (Kidney) Cancer: No Hx Renal Failure: No Other/Comment: Decrease urinary flow - ENDOCRINE/METABOLIC Hx Endocrine Disorders: Yes Hx Adrenal Cancer: No Hx Diabetes Insipidus: No Hx Diabetes Mellitus Type 1: No Hx Diabetes Mellitus Type 2: Yes Hx Hyperthyroidism: No Hx Hypothyroidism: No Hx Systemic Lupus Erythematosus: No - HEMATOLOGICAL/ONCOLOGICAL Hx Blood Disorders: Yes Hx AIDS: No Hx Anemia: Yes Hx Blood Transfusions: No Hx Blood Transfusion Reaction: No Hx Bruising: No Hx Cancer: No Hx Chemotherapy: No Hx Cirrhosis: Yes Hx Gum Bleeding: No Hx Hemophilia: No Hx Hepatitis A: No Hx Hepatitis B: No Hx Hepatitis C: No Hx Human Immunodeficiency Virus (HIV): No Hx Leukemia: No Hx Metastesis: No Hx Shingles: No Hx Sickle Cell Disease: No Hx Unexplained Bleeding: No Hx von Willebrand's Disease: No - INTEGUMENTARY Hx Dermatological Problems: Yes Hx Basil Cell: No Hx Jewell: No Hx Cellulitis: No Hx Eczema: No Hx Melanoma: No Hx Psoriasis: Yes Hx Squamous Cell: No Other/Comment: Psoriatic Arthritis, Right LE wounds, Perineal excoriation - MUSCULOSKELETAL/RHEUMATOLOGICAL Hx Musculoskeletal Disorders: Yes Hx Arthritis: Yes Hx Back Pain: No Hx Degenerative Joint Disease: No Hx Falls: Yes (Mother reports frequent falls due to leg swelling) Hx Fractures: No Hx Gout: No Hx Herniated Disk: No Hx Myasthenia Gravis: No Hx Osteoarthritis: No Hx Osteomyelitis: No Hx Osteoporosis: No Hx Rhabdomyolysis: No Hx Rheumatoid Arthritis: No Hx Spinal Stenosis: No Hx Unsteady Gait: Yes - GASTROINTESTINAL Hx Gastrointestinal Disorders: Yes Hx Bowel Surgery: No Hx Clostridium Difficile: No Hx Colitis: No Hx Colostomy: No Hx Constipation: No Hx Crohn's Disease: No Hx Diarrhea: Yes Hx Diverticulitis: No Hx Esophageal Varices: Yes Hx Fatty Liver Disease: No Hx Gall Bladder Disease: No Hx Gastritis: No Hx Gastroesophageal Reflux: No Hx Hemorrhoids: No Hx Ileostomy: No Hx Irritable Bowel: No Hx Liver Failure: No Hx Nausea: No Hx Pancreatitis: No HX Swallowing Problems: No Hx Ulcer: Yes Hx Vomiting: No Other/Comment: Liver disease, esophageal varices - GENITOURINARY/GYNECOLOGICAL Hx Genitourinary Disorders: No Hx Bladder Cancer: No Hx Bladder Stone: No Hx Hematuria: No Hx Incontinence: No Hx Prostate Cancer: No Hx Prostate Problems: No Hx Reproductive Disorders: No Hx Sexually Transmitted Disorders: No Hx Urinary Tract Infection: No - PSYCHIATRIC Hx Psychophysiologic Disorder: Yes Hx Anxiety: Yes Hx Bipolar Disorder: No Hx Depression: Yes Hx Emotional Abuse: No Hx Hallucinations: No Hx Panic Symptoms: No Hx Post Traumatic Stress Disorder: No Hx Psychosis: No Hx Physical Abuse: No Hx Schizophrenia: No Hx Sexual Abuse: No Hx Substance Use: No (ETOH) - SURGICAL HISTORY Hx Surgeries: Yes Hx Abdominal Aortic Aneurysm Repair: No Hx Amputation: No Hx Angiogram: No Hx Angioplasty: No Hx Appendectomy: No Hx Arteriovenous Shunt: No Hx Arthroscopy: No Hx Bile Duct Stent: No Hx Breast Biopsy: No Hx Cataract Extraction: No Hx Cardiac Catheterization: No Hx Carotid Endarterectomy: No Hx Section: No Hx Cholecystectomy: No Hx Coronary Artery Bypass Graft: No Hx Coronary Stent: No Hx Dilation and Curettage: No Hx Eye Surgery: No Hx Femoral-Popliteal Bypass Graft: No Hx Gastric Bypass Surgery: No Hx Herniorrhaphy: No Hx Hysterectomy: No Hx Joint Replacement: No Hx Kidney Transplant: No Hx Liver Transplant: No Hx Mastectomy: No Hx Musculoskeletal Surgery: No Hx Open Heart Surgery: No Hx Open Reduction Internal Fixation: No Hx Orthopedic Surgery: Yes (rt. knee swelling) Hx Parathyroidectomy: No Hx Penile Implant: No Hx Pulmonary Surgery: No Hx Splenectomy: No Hx Thyroidectomy: No Hx Tonsillectomy: No Hx Tubal Ligation: No Hx Valve Replacement: No Hx Vascular Surgery: No Hx Vascular Access Device: No Other/Comment: Endoscopy/colonscopy - ANESTHESIA Hx Anesthesia: Yes Hx Anesthesia Reactions: No Hx Malignant Hyperthermia: No Has any member of the family had a problem w/ anesthesia?: No Meds Allergies/Adverse Reactions: Allergies Allergy/AdvReac Type Severity Reaction Status Date / Time No Known Allergies Allergy Verified 04/10/18 14:55 - Medications Medications: Current Medications Albuterol/Ipratropium (Duoneb 3 Mg/0.5 Mg (3 Ml) Ud) 3 ml INH RQ6 FLY Last Admin: 05/06/18 07:34 Dose: 3 ml Dexmedetomidine HCl 200 mcg/ (Sodium Chloride) 50 mls @ 4.99 mls/hr IV TITR PRN; Protocol PRN Reason: Agitation Piperacillin Sod/Tazobactam (Sod 3.375 gm/ Sodium Chloride) 100 mls @ 200 mls/hr IVPB Q6H FLY; Protocol Last Admin: 05/06/18 08:00 Dose: 200 mls/hr Vancomycin/Sodium Chloride (Vancomycin 1 Gm/Ns 200 Ml) 1 gm in 200 mls @ 133 mls/hr IVPB Q12H FLY; Protocol Stop: 05/10/18 20:31 Last Admin: 05/06/18 08:30 Dose: 133 mls/hr Propofol (Diprivan) 1,000 mg in 100 mls @ 2.994 mls/hr IV .Q24H PRN; Protocol PRN Reason: TITRATE PER MD ORDER Dexmedetomidine HCl 200 mcg/ (Sodium Chloride) 50 mls @ 4.99 mls/hr IV TITR PRN; Protocol PRN Reason: Agitation Last Admin: 05/06/18 05:35 Dose: 0.22 mcg/kg/hr, 5.49 mls/hr Methylprednisolone 125 mg/ (Sodium Chloride) 100 mls @ 200 mls/hr IVPB ONCE ONE Stop: 05/06/18 09:07 Lactulose (Enulose) 20 gm PO Q12 FLY Last Admin: 05/06/18 09:10 Dose: 20 gm Methylprednisolone (Solu-Medrol) 40 mg IV Q8H FLY Pantoprazole Sodium (Protonix Inj) 40 mg IVP Q12 FLY Last Admin: 05/06/18 09:10 Dose: 40 mg Physical Exam - Constitutional Appears: Other (Sedated, intubated on vent) - Head Exam Head Exam: ATRAUMATIC, NORMAL INSPECTION - ENT Exam ENT Exam: Mucous Membranes Dry. absent: Mucous Membranes Moist - Respiratory Exam Respiratory Exam: NORMAL BREATHING PATTERN Additional comments: CTA anteriorly - Cardiovascular Exam Cardiovascular Exam: Tachycardia, RRR - GI/Abdominal Exam GI & Abdominal Exam: Distended, Soft. absent: Bruit, Diminished Bowel Sounds, Firm, Guarding, Hernia, Normal Bowel Sounds, Organomegaly, Pulsatile Mass, Rigid, Tenderness Additional comments: Exam limited by obesity, anasarca diffusely - Rectal Exam Rectal Exam: Deferred - Extremities Exam Extremities exam: Positive for: pedal edema. Negative for: normal inspection Additional comments: diffuse anasarca and RLE wrapped in dressing - Neurological Exam Neurological exam: Altered Additional comments: sedated - Skin Additional comments: bilateral LE venous stasis dermatitis changes Results - Vital Signs Recent Vital Signs: Last Vital Signs Temp 99.6 F 05/06/18 04:00 Pulse 92 H 05/06/18 08:30 Resp 20 05/06/18 08:30 BP 126/74 05/06/18 07:49 Pulse Ox 100 05/06/18 08:30 - Labs Result Diagrams: 05/06/18 06:26 05/06/18 06:22 Labs: Laboratory Results - last 24 hr 05/05/18 05/05/18 05/05/18 14:47 15:57 15:57 WBC 21.5 H D RBC 4.02 L Hgb 9.1 L Hct 29.6 L MCV 73.8 L MCH 22.6 L MCHC 30.6 L RDW 22.8 H Plt Count 56 L D MPV 8.4 Neut % (Auto) 93.8 H Lymph % (Auto) 2.1 L [place] % (Auto) 3.9 Eos % (Auto) 0.0 Baso % (Auto) 0.2 Neut # (Auto) 20.2 H Lymph # (Auto) 0.5 L [place] # (Auto) 0.8 Eos # (Auto) 0.0 Baso # (Auto) 0.0 Neutrophils % (Manual) 79 H Band Neutrophils % 17 H* Lymphocytes % (Manual) 1 L Monocytes % (Manual) 3 Nucleated RBC % Platelet Estimate Decreased L Polychromasia Hypochromasia (manual) Slight Poikilocytosis (manual Slight Anisocytosis (manual) Slight Microcytosis (manual) Target Cells Slight Ovalocytes Slight Pepe Cells Slight PT INR APTT Puncture Site pCO2 pO2 HCO3 ABG pH ABG Total CO2 ABG O2 Saturation ABG Base Excess ABG Hemoglobin ABG Carboxyhemoglobin POC ABG HHb (Measured) ABG Methemoglobin Jeff Test ABG Potassium VBG pH VBG pCO2 VBG HCO3 VBG Total CO2 VBG O2 Sat (Calc) VBG Base Excess VBG Potassium A-a O2 Difference Respiratory Index Hgb O2 Saturation Glucose Lactate Vent Mode Mechanical Rate FiO2 Tidal Volume PEEP Crit Value Called To Crit Value Called By Crit Value Read Back Blood Gas Notified Time Sodium 140 Potassium 4.1 Chloride 107 Carbon Dioxide 18 L Anion Gap 19 BUN 11 Creatinine 0.8 Est GFR ( Amer) > 60 Est GFR (Non-Af Amer) > 60 POC Glucose (mg/dL) 135 H Random Glucose 120 H Lactic Acid Calcium 7.8 L Phosphorus 4.5 Magnesium 1.4 L Total Bilirubin 1.6 H AST 86 H D ALT 34 Alkaline Phosphatase 135 H D Ammonia Total Creatine Kinase 710 H CK-MB (Mass) Troponin I 0.1340 H* NT-Pro-B Natriuret Pep 5130 H Total Protein 7.1 Albumin 2.8 L Globulin 4.3 H Albumin/Globulin Ratio 0.7 L Lipase 229 Arterial Blood Potassium Venous Blood Potassium Urine Color Urine Clarity Urine pH Ur Specific [place] Urine Protein Urine Glucose (UA) Urine Ketones Urine Blood Urine Nitrate Urine Bilirubin Urine Urobilinogen Ur Leukocyte Esterase Urine WBC (Auto) Urine RBC (Auto) Ur Squamous Epith Cells Urine Yeast (Budding) Urine Opiates Screen Urine Methadone Screen Ur Barbiturates Screen Ur Phencyclidine Scrn Ur Amphetamines Screen U Benzodiazepines Scrn U Oth Cocaine Metabols U Cannabinoids Screen Alcohol, Quantitative 52 H Blood Type Antibody Screen 05/05/18 05/05/18 05/05/18 15:57 16:00 17:45 WBC RBC Hgb Hct MCV MCH MCHC RDW Plt Count MPV Neut % (Auto) Lymph % (Auto) [place] % (Auto) Eos % (Auto) Baso % (Auto) Neut # (Auto) Lymph # (Auto) [place] # (Auto) Eos # (Auto) Baso # (Auto) Neutrophils % (Manual) Band Neutrophils % Lymphocytes % (Manual) Monocytes % (Manual) Nucleated RBC % Platelet Estimate Polychromasia Hypochromasia (manual) Poikilocytosis (manual Anisocytosis (manual) Microcytosis (manual) Target Cells Ovalocytes [place] Cells PT 15.8 H INR 1.4 APTT 37 H Puncture Site pCO2 pO2 42 HCO3 ABG pH ABG Total CO2 ABG O2 Saturation ABG Base Excess ABG Hemoglobin ABG Carboxyhemoglobin POC ABG HHb (Measured) ABG Methemoglobin Jeff Test ABG Potassium VBG pH 7.42 VBG pCO2 25 L VBG HCO3 19.3 VBG Total CO2 17.0 L VBG O2 Sat (Calc) 77.2 H VBG Base Excess -6.5 L VBG Potassium 4.0 A-a O2 Difference Respiratory Index Hgb O2 Saturation Glucose 110 Lactate 6.5 H* Vent Mode Mechanical Rate FiO2 Tidal Volume PEEP Crit Value Called To Dr. alexandra Crit Value Called By Jasvir johnston Crit Value Read Back Y Blood Gas Notified Time 1603 Sodium 143.0 Potassium Chloride 113.0 H Carbon Dioxide Anion Gap BUN Creatinine Est GFR ( Amer) Est GFR (Non-Af Amer) POC Glucose (mg/dL) Random Glucose Lactic Acid Calcium Phosphorus Magnesium Total Bilirubin AST ALT Alkaline Phosphatase Ammonia Total Creatine Kinase CK-MB (Mass) Troponin I NT-Pro-B Natriuret Pep Total Protein Albumin Globulin Albumin/Globulin Ratio Lipase Arterial Blood Potassium Venous Blood Potassium 4.0 Urine Color Urine Clarity Urine pH Ur Specific [place] Urine Protein Urine Glucose (UA) Urine Ketones Urine Blood Urine Nitrate Urine Bilirubin Urine Urobilinogen Ur Leukocyte Esterase Urine WBC (Auto) Urine RBC (Auto) Ur Squamous Epith Cells Urine Yeast (Budding) Urine Opiates Screen Urine Methadone Screen Ur Barbiturates Screen Ur Phencyclidine Scrn Ur Amphetamines Screen U Benzodiazepines Scrn U Oth Cocaine Metabols U Cannabinoids Screen Alcohol, Quantitative Blood Type AB POSITIVE Antibody Screen Negative 05/05/18 05/05/18 05/05/18 17:47 19:25 21:50 WBC RBC Hgb Hct MCV MCH MCHC RDW Plt Count MPV Neut % (Auto) Lymph % (Auto) [place] % (Auto) Eos % (Auto) Baso % (Auto) Neut # (Auto) Lymph # (Auto) [place] # (Auto) Eos # (Auto) Baso # (Auto) Neutrophils % (Manual) Band Neutrophils % Lymphocytes % (Manual) Monocytes % (Manual) Nucleated RBC % Platelet Estimate Polychromasia Hypochromasia (manual) Poikilocytosis (manual Anisocytosis (manual) Microcytosis (manual) Target Cells Ovalocytes Pepe Cells PT INR APTT Puncture Site Rr Rba pCO2 77 H* 42 pO2 22 L 116 H 77 L HCO3 15.3 L 22.6 ABG pH 7.02 L* 7.34 L ABG Total CO2 22.3 24.0 ABG O2 Saturation 97.7 97.1 ABG Base Excess -12.3 L -2.9 L ABG Hemoglobin 8.5 L ABG Carboxyhemoglobin 2.7 H POC ABG HHb (Measured) 2.8 ABG Methemoglobin 1.1 Jeff Test Yes Na ABG Potassium 4.1 VBG pH 7.42 VBG pCO2 30 L VBG HCO3 20.3 VBG Total CO2 20.4 L VBG O2 Sat (Calc) 34.1 L VBG Base Excess -3.9 L VBG Potassium 4.0 A-a O2 Difference 73.0 156.0 Respiratory Index 0.6 2.0 Hgb O2 Saturation 93.4 L Glucose 102 114 H Lactate 6.4 H* 5.1 H* Vent Mode Prvc Mechanical Rate 20 FiO2 40.0 40.0 Tidal Volume 500 PEEP 5 Crit Value Called To Dr nasrin Moreno rn Crit Value Called By Jasvir Sharpe rt Crit Value Read Back Y Y Blood Gas Notified Time 1749 1954 Sodium 142.0 142.0 Potassium Chloride 110.0 H 109.0 H Carbon Dioxide Anion Gap BUN Creatinine Est GFR ( Amer) Est GFR (Non-Af Amer) POC Glucose (mg/dL) Random Glucose Lactic Acid Calcium Phosphorus Magnesium Total Bilirubin AST ALT Alkaline Phosphatase Ammonia Total Creatine Kinase CK-MB (Mass) Troponin I NT-Pro-B Natriuret Pep Total Protein Albumin Globulin Albumin/Globulin Ratio Lipase Arterial Blood Potassium 4.1 Venous Blood Potassium 4.0 Urine Color Urine Clarity Urine pH Ur Specific [place] Urine Protein Urine Glucose (UA) Urine Ketones Urine Blood Urine Nitrate Urine Bilirubin Urine Urobilinogen Ur Leukocyte Esterase Urine WBC (Auto) Urine RBC (Auto) Ur Squamous Epith Cells Urine Yeast (Budding) Urine Opiates Screen Urine Methadone Screen Ur Barbiturates Screen Ur Phencyclidine Scrn Ur Amphetamines Screen U Benzodiazepines Scrn U Oth Cocaine Metabols U Cannabinoids Screen Alcohol, Quantitative Blood Type Antibody Screen 05/05/18 05/06/18 05/06/18 23:33 01:01 01:01 WBC RBC Hgb Hct MCV MCH MCHC RDW Plt Count MPV Neut % (Auto) Lymph % (Auto) [place] % (Auto) Eos % (Auto) Baso % (Auto) Neut # (Auto) Lymph # (Auto) [place] # (Auto) Eos # (Auto) Baso # (Auto) Neutrophils % (Manual) Band Neutrophils % Lymphocytes % (Manual) Monocytes % (Manual) Nucleated RBC % Platelet Estimate Polychromasia Hypochromasia (manual) Poikilocytosis (manual Anisocytosis (manual) Microcytosis (manual) Target Cells Ovalocytes Pepe Cells PT INR APTT Puncture Site pCO2 pO2 HCO3 ABG pH ABG Total CO2 ABG O2 Saturation ABG Base Excess ABG Hemoglobin ABG Carboxyhemoglobin POC ABG HHb (Measured) ABG Methemoglobin Jeff Test ABG Potassium VBG pH VBG pCO2 VBG HCO3 VBG Total CO2 VBG O2 Sat (Calc) VBG Base Excess VBG Potassium A-a O2 Difference Respiratory Index Hgb O2 Saturation Glucose Lactate Vent Mode Mechanical Rate FiO2 Tidal Volume PEEP Crit Value Called To Crit Value Called By Crit Value Read Back Blood Gas Notified Time Sodium 141 Potassium 4.2 Chloride 108 H Carbon Dioxide 24 Anion Gap 13 BUN 13 Creatinine 0.9 Est GFR ( Amer) > 60 Est GFR (Non-Af Amer) > 60 POC Glucose (mg/dL) 127 H Random Glucose 123 H Lactic Acid 2.5 H Calcium 7.4 L Phosphorus 4.3 Magnesium 1.4 L Total Bilirubin 1.3 AST 79 H ALT 38 Alkaline Phosphatase 92 Ammonia Total Creatine Kinase CK-MB (Mass) Troponin I NT-Pro-B Natriuret Pep Total Protein 6.3 Albumin 2.4 L Globulin 3.9 Albumin/Globulin Ratio 0.6 L Lipase Arterial Blood Potassium Venous Blood Potassium Urine Color Urine Clarity Urine pH Ur Specific [place] Urine Protein Urine Glucose (UA) Urine Ketones Urine Blood Urine Nitrate Urine Bilirubin Urine Urobilinogen Ur Leukocyte Esterase Urine WBC (Auto) Urine RBC (Auto) Ur Squamous Epith Cells Urine Yeast (Budding) Urine Opiates Screen Urine Methadone Screen Ur Barbiturates Screen Ur Phencyclidine Scrn Ur Amphetamines Screen U Benzodiazepines Scrn U Oth Cocaine Metabols U Cannabinoids Screen Alcohol, Quantitative Blood Type Antibody Screen 05/06/18 05/06/18 05/06/18 01:01 03:26 03:26 WBC RBC Hgb Hct MCV MCH MCHC RDW Plt Count MPV Neut % (Auto) Lymph % (Auto) [place] % (Auto) Eos % (Auto) Baso % (Auto) Neut # (Auto) Lymph # (Auto) [place] # (Auto) Eos # (Auto) Baso # (Auto) Neutrophils % (Manual) Band Neutrophils % Lymphocytes % (Manual) Monocytes % (Manual) Nucleated RBC % Platelet Estimate Polychromasia Hypochromasia (manual) Poikilocytosis (manual Anisocytosis (manual) Microcytosis (manual) Target Cells Ovalocytes Pepe Cells PT INR APTT Puncture Site pCO2 pO2 HCO3 ABG pH ABG Total CO2 ABG O2 Saturation ABG Base Excess ABG Hemoglobin ABG Carboxyhemoglobin POC ABG HHb (Measured) ABG Methemoglobin Jeff Test ABG Potassium VBG pH VBG pCO2 VBG HCO3 VBG Total CO2 VBG O2 Sat (Calc) VBG Base Excess VBG Potassium A-a O2 Difference Respiratory Index Hgb O2 Saturation Glucose Lactate Vent Mode Mechanical Rate FiO2 Tidal Volume PEEP Crit Value Called To Crit Value Called By Crit Value Read Back Blood Gas Notified Time Sodium Potassium Chloride Carbon Dioxide Anion Gap BUN Creatinine Est GFR ( Amer) Est GFR (Non-Af Amer) POC Glucose (mg/dL) Random Glucose Lactic Acid Calcium Phosphorus Magnesium Total Bilirubin AST ALT Alkaline Phosphatase Ammonia Total Creatine Kinase 499 H CK-MB (Mass) 6.48 H Troponin I 0.1380 H* NT-Pro-B Natriuret Pep Total Protein Albumin Globulin Albumin/Globulin Ratio Lipase Arterial Blood Potassium Venous Blood Potassium Urine Color Tammy Urine Clarity Clear Urine pH 5.0 Ur Specific [place] 1.025 Urine Protein 3+ H Urine Glucose (UA) Normal Urine Ketones Negative Urine Blood 3+ H Urine Nitrate Negative Urine Bilirubin Negative Urine Urobilinogen 2.0 Ur Leukocyte Esterase Neg Urine WBC (Auto) 9 H Urine RBC (Auto) 707 H Ur Squamous Epith Cells 1 Urine Yeast (Budding) Few H Urine Opiates Screen Negative Urine Methadone Screen Negative Ur Barbiturates Screen Negative Ur Phencyclidine Scrn Negative Ur Amphetamines Screen Negative U Benzodiazepines Scrn Negative U Oth Cocaine Metabols Negative U Cannabinoids Screen Negative Alcohol, Quantitative Blood Type Antibody Screen 05/06/18 05/06/18 05/06/18 03:28 04:20 05:48 WBC 14.6 H RBC 3.51 L Hgb 7.7 L Hct 25.6 L MCV 72.9 L MCH 22.0 L MCHC 30.1 L RDW 22.4 H Plt Count 36 L D MPV 8.4 Neut % (Auto) 90.3 H Lymph % (Auto) 5.6 L [place] % (Auto) 3.5 Eos % (Auto) 0.0 Baso % (Auto) 0.6 Neut # (Auto) 13.2 H Lymph # (Auto) 0.8 L [place] # (Auto) 0.5 Eos # (Auto) 0.0 Baso # (Auto) 0.1 Neutrophils % (Manual) 94 H Band Neutrophils % 1 Lymphocytes % (Manual) 4 L Monocytes % (Manual) 1 Nucleated RBC % 1 H Platelet Estimate Decreased L Polychromasia Slight Hypochromasia (manual) Moderate Poikilocytosis (manual Anisocytosis (manual) Moderate Microcytosis (manual) Slight Target Cells Ovalocytes Slight Pepe Cells PT INR APTT Puncture Site Rr pCO2 31 L pO2 121 H HCO3 24.3 ABG pH 7.46 H ABG Total CO2 23.0 ABG O2 Saturation 99.4 H ABG Base Excess -0.9 ABG Hemoglobin ABG Carboxyhemoglobin POC ABG HHb (Measured) ABG Methemoglobin Jeff Test Pos ABG Potassium 3.6 VBG pH VBG pCO2 VBG HCO3 VBG Total CO2 VBG O2 Sat (Calc) VBG Base Excess VBG Potassium A-a O2 Difference 125.0 Respiratory Index 1.0 Hgb O2 Saturation Glucose 123 H Lactate 1.3 Vent Mode Prvc Mechanical Rate 20 FiO2 40.0 Tidal Volume 500 PEEP 5 Crit Value Called To Crit Value Called By Crit Value Read Back Blood Gas Notified Time Sodium 143.0 Potassium Chloride 117.0 H Carbon Dioxide Anion Gap BUN Creatinine Est GFR ( Amer) Est GFR (Non-Af Amer) POC Glucose (mg/dL) 108 Random Glucose Lactic Acid Calcium Phosphorus Magnesium Total Bilirubin AST ALT Alkaline Phosphatase Ammonia Total Creatine Kinase CK-MB (Mass) Troponin I NT-Pro-B Natriuret Pep Total Protein Albumin Globulin Albumin/Globulin Ratio Lipase Arterial Blood Potassium 3.6 Venous Blood Potassium Urine Color Urine Clarity Urine pH Ur Specific [place] Urine Protein Urine Glucose (UA) Urine Ketones Urine Blood Urine Nitrate Urine Bilirubin Urine Urobilinogen Ur Leukocyte Esterase Urine WBC (Auto) Urine RBC (Auto) Ur Squamous Epith Cells Urine Yeast (Budding) Urine Opiates Screen Urine Methadone Screen Ur Barbiturates Screen Ur Phencyclidine Scrn Ur Amphetamines Screen U Benzodiazepines Scrn U Oth Cocaine Metabols U Cannabinoids Screen Alcohol, Quantitative Blood Type Antibody Screen 05/06/18 05/06/18 05/06/18 06:22 06:22 06:22 WBC RBC Hgb Hct MCV MCH MCHC RDW Plt Count MPV Neut % (Auto) Lymph % (Auto) [place] % (Auto) Eos % (Auto) Baso % (Auto) Neut # (Auto) Lymph # (Auto) [place] # (Auto) Eos # (Auto) Baso # (Auto) Neutrophils % (Manual) Band Neutrophils % Lymphocytes % (Manual) Monocytes % (Manual) Nucleated RBC % Platelet Estimate Polychromasia Hypochromasia (manual) Poikilocytosis (manual Anisocytosis (manual) Microcytosis (manual) Target Cells Ovalocytes [place] Cells PT 19.8 H INR 1.8 APTT 38 H Puncture Site pCO2 pO2 HCO3 ABG pH ABG Total CO2 ABG O2 Saturation ABG Base Excess ABG Hemoglobin ABG Carboxyhemoglobin POC ABG HHb (Measured) ABG Methemoglobin Jeff Test ABG Potassium VBG pH VBG pCO2 VBG HCO3 VBG Total CO2 VBG O2 Sat (Calc) VBG Base Excess VBG Potassium A-a O2 Difference Respiratory Index Hgb O2 Saturation Glucose Lactate Vent Mode Mechanical Rate FiO2 Tidal Volume PEEP Crit Value Called To Crit Value Called By Crit Value Read Back Blood Gas Notified Time Sodium 138 Potassium 4.0 Chloride 110 H Carbon Dioxide 24 Anion Gap 9 L BUN 15 Creatinine 0.9 Est GFR ( Amer) > 60 Est GFR (Non-Af Amer) > 60 POC Glucose (mg/dL) Random Glucose 125 H Lactic Acid Calcium 7.0 L Phosphorus 4.0 Magnesium 1.8 Total Bilirubin 1.1 AST 58 ALT 31 Alkaline Phosphatase 84 Ammonia 65 H D Total Creatine Kinase 292 H CK-MB (Mass) 3.60 H Troponin I 0.1260 H* NT-Pro-B Natriuret Pep Total Protein 5.3 L Albumin 2.0 L Globulin 3.4 Albumin/Globulin Ratio 0.6 L Lipase Arterial Blood Potassium Venous Blood Potassium Urine Color Urine Clarity Urine pH Ur Specific [place] Urine Protein Urine Glucose (UA) Urine Ketones Urine Blood Urine Nitrate Urine Bilirubin Urine Urobilinogen Ur Leukocyte Esterase Urine WBC (Auto) Urine RBC (Auto) Ur Squamous Epith Cells Urine Yeast (Budding) Urine Opiates Screen Urine Methadone Screen Ur Barbiturates Screen Ur Phencyclidine Scrn Ur Amphetamines Screen U Benzodiazepines Scrn U Oth Cocaine Metabols U Cannabinoids Screen Alcohol, Quantitative Blood Type Antibody Screen 05/06/18 05/06/18 05/06/18 06:22 06:26 06:26 WBC 11.3 H RBC 3.20 L Hgb 7.2 L Hct 23.1 L MCV 72.0 L MCH 22.5 L MCHC 31.2 L RDW 22.8 H Plt Count 32 L MPV 8.3 Neut % (Auto) 86.4 H Lymph % (Auto) 9.0 L [place] % (Auto) 4.4 Eos % (Auto) 0.1 Baso % (Auto) 0.1 Neut # (Auto) 9.7 H Lymph # (Auto) 1.0 [place] # (Auto) 0.5 Eos # (Auto) 0.0 Baso # (Auto) 0.0 Neutrophils % (Manual) Band Neutrophils % Lymphocytes % (Manual) Monocytes % (Manual) Nucleated RBC % Platelet Estimate Polychromasia Hypochromasia (manual) Poikilocytosis (manual Anisocytosis (manual) Microcytosis (manual) Target Cells Ovalocytes [place] Cells PT INR APTT Puncture Site pCO2 pO2 HCO3 ABG pH ABG Total CO2 ABG O2 Saturation ABG Base Excess ABG Hemoglobin ABG Carboxyhemoglobin POC ABG HHb (Measured) ABG Methemoglobin Jeff Test ABG Potassium VBG pH VBG pCO2 VBG HCO3 VBG Total CO2 VBG O2 Sat (Calc) VBG Base Excess VBG Potassium A-a O2 Difference Respiratory Index Hgb O2 Saturation Glucose Lactate Vent Mode Mechanical Rate FiO2 Tidal Volume PEEP Crit Value Called To Crit Value Called By Crit Value Read Back Blood Gas Notified Time Sodium Potassium Chloride Carbon Dioxide Anion Gap BUN Creatinine Est GFR ( Amer) Est GFR (Non-Af Amer) POC Glucose (mg/dL) Random Glucose Lactic Acid 1.3 Calcium Phosphorus Magnesium Total Bilirubin AST ALT Alkaline Phosphatase Ammonia Total Creatine Kinase CK-MB (Mass) Troponin I NT-Pro-B Natriuret Pep Total Protein Albumin Globulin Albumin/Globulin Ratio Lipase Arterial Blood Potassium Venous Blood Potassium Urine Color Urine Clarity Urine pH Ur Specific [place] Urine Protein Urine Glucose (UA) Urine Ketones Urine Blood Urine Nitrate Urine Bilirubin Urine Urobilinogen Ur Leukocyte Esterase Urine WBC (Auto) Urine RBC (Auto) Ur Squamous Epith Cells Urine Yeast (Budding) Urine Opiates Screen Urine Methadone Screen Ur Barbiturates Screen Ur Phencyclidine Scrn Ur Amphetamines Screen U Benzodiazepines Scrn U Oth Cocaine Metabols U Cannabinoids Screen Alcohol, Quantitative Blood Type AB POSITIVE Antibody Screen Negative Assessment & Plan - Assessment and Plan (Free Text) Assessment: 42 yo M with decompensated EtOH Cirhosis presenting with RLE wound and diarrhea, later intubated in ED for AMS/Seizure/work of breath. # EtOH Cirrhosis: MELD-Na 12. Decompensated. Recent EtOH abuse with concerns for possible withdrawal. 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 On Propranolol as OP. Hold given sepsis. - HE: NH3 65 on admission. On lactulose as OP. Can hold if already stooling at least 3 BMs due to diarrhea, but otherwise should continue, titrating to at least 3-4 BMs. - Ascites: Mild on CT, difficult to appreciate on exam due to anasarca. On Spironolactone and Furosemide as OP. Hold given sepsis picture. - HCC: No obvious mass on admission CT, but not triple phase CT # Acute Diarrhea, Sepsis: Most likely due to extremity soft tissue infection vs colitis seen on CT with reported diarrhea after recent Abx use. # EtOH Abuse: reportedly 1 point vodka per day. Unclear last drink. Concern for EtOH withdrawal. Plan: - See above for details regarding Cirrhosis recommendations - Beside US to evaluate for potential ascites to r/o SBP if available --- If not, is covered for usual SBP pathogens with Pip/Tazo - On Vanco and Pip/Tazo per primary team - Hold diuretics and BB given sepsis - Cont lactulose, titrating to at least 3 BMs; can hold if > 4 BMs - Will need PO or DC Vanco added if Cdiff positive as would be severe Cdiff - IVF per primary - Avoid NSAIDs in setting of cirrhosis - Check Stool Cx and O&P - Treatment of possible EtOH withdrawal per primary team - PPI IV daily OK for stress ulcer ppx, no signs of active bleeding - Would avoid overtransfusion in pt with cirrhosis, goal Hgb <9-10 to not raise portal pressures Pt seen and examined with Dr. Holt; see attestation for further recs/changes Joon Spaulding, PGY-4 <Ruddy Holt - Last Filed: 05/06/18 15:10> Meds - Medications Medications: Current Medications Albuterol/Ipratropium (Duoneb 3 Mg/0.5 Mg (3 Ml) Ud) 3 ml INH RQ6 FLY Last Admin: 05/06/18 13:14 Dose: 3 ml Furosemide (Lasix) 20 mg PO DAILY FLY Last Admin: 05/06/18 11:30 Dose: 20 mg Piperacillin Sod/Tazobactam (Sod 3.375 gm/ Sodium Chloride) 100 mls @ 200 mls/hr IVPB Q6H FLY; Protocol Last Admin: 05/06/18 08:00 Dose: 200 mls/hr Vancomycin/Sodium Chloride (Vancomycin 1 Gm/Ns 200 Ml) 1 gm in 200 mls @ 133 mls/hr IVPB Q12H FLY; Protocol Stop: 05/10/18 20:31 Last Admin: 05/06/18 08:30 Dose: 133 mls/hr Dexmedetomidine HCl 200 mcg/ (Sodium Chloride) 50 mls @ 4.99 mls/hr IV TITR PRN; Protocol PRN Reason: Agitation Last Admin: 05/06/18 05:35 Dose: 0.22 mcg/kg/hr, 5.49 mls/hr Lactulose (Enulose) 20 gm PO Q12 FLY Last Admin: 05/06/18 09:10 Dose: 20 gm Methylprednisolone (Solu-Medrol) 40 mg IVP Q12 FLY Stop: 05/08/18 22:01 Pantoprazole Sodium (Protonix Inj) 40 mg IVP Q12 FLY Last Admin: 05/06/18 09:10 Dose: 40 mg Phytonadione (Vitamin K Tab) 10 mg PO DAILY FLY Last Admin: 05/06/18 11:30 Dose: 10 mg Results - Vital Signs Recent Vital Signs: Last Vital Signs Temp 98.4 F 05/06/18 12:00 Pulse 85 05/06/18 13:00 Resp 21 05/06/18 13:00 BP 139/86 05/06/18 12:49 Pulse Ox 100 05/06/18 13:00 - Labs Result Diagrams: 05/06/18 06:26 05/06/18 06:22 Labs: Laboratory Results - last 24 hr 05/05/18 05/05/18 05/05/18 15:57 15:57 15:57 WBC 21.5 H D RBC 4.02 L Hgb 9.1 L Hct 29.6 L MCV 73.8 L MCH 22.6 L MCHC 30.6 L RDW 22.8 H Plt Count 56 L D MPV 8.4 Neut % (Auto) 93.8 H Lymph % (Auto) 2.1 L [place] % (Auto) 3.9 Eos % (Auto) 0.0 Baso % (Auto) 0.2 Neut # (Auto) 20.2 H Lymph # (Auto) 0.5 L [place] # (Auto) 0.8 Eos # (Auto) 0.0 Baso # (Auto) 0.0 Neutrophils % (Manual) 79 H Band Neutrophils % 17 H* Lymphocytes % (Manual) 1 L Monocytes % (Manual) 3 Nucleated RBC % Differential Comment Platelet Estimate Decreased L Polychromasia Hypochromasia (manual) Slight Poikilocytosis (manual Slight Anisocytosis (manual) Slight Microcytosis (manual) Target Cells Slight Ovalocytes Slight Pepe Cells Slight PT 15.8 H INR 1.4 APTT 37 H Puncture Site pCO2 pO2 HCO3 ABG pH ABG Total CO2 ABG O2 Saturation ABG Base Excess ABG Hemoglobin ABG Carboxyhemoglobin POC ABG HHb (Measured) ABG Methemoglobin Jeff Test ABG Potassium VBG pH VBG pCO2 VBG HCO3 VBG Total CO2 VBG O2 Sat (Calc) VBG Base Excess VBG Potassium A-a O2 Difference Respiratory Index Hgb O2 Saturation Glucose Lactate Vent Mode Mechanical Rate FiO2 Tidal Volume PEEP Crit Value Called To Crit Value Called By Crit Value Read Back Blood Gas Notified Time Sodium 140 Potassium 4.1 Chloride 107 Carbon Dioxide 18 L Anion Gap 19 BUN 11 Creatinine 0.8 Est GFR ( Amer) > 60 Est GFR (Non-Af Amer) > 60 POC Glucose (mg/dL) Random Glucose 120 H Lactic Acid Calcium 7.8 L Phosphorus 4.5 Magnesium 1.4 L Total Bilirubin 1.6 H AST 86 H D ALT 34 Alkaline Phosphatase 135 H D Ammonia Total Creatine Kinase 710 H CK-MB (Mass) Troponin I 0.1340 H* NT-Pro-B Natriuret Pep 5130 H Total Protein 7.1 Albumin 2.8 L Globulin 4.3 H Albumin/Globulin Ratio 0.7 L Lipase 229 Arterial Blood Potassium Venous Blood Potassium Urine Color Urine Clarity Urine pH Ur Specific [place] Urine Protein Urine Glucose (UA) Urine Ketones Urine Blood Urine Nitrate Urine Bilirubin Urine Urobilinogen Ur Leukocyte Esterase Urine WBC (Auto) Urine RBC (Auto) Ur Squamous Epith Cells Urine Yeast (Budding) Urine Opiates Screen Urine Methadone Screen Ur Barbiturates Screen Ur Phencyclidine Scrn Ur Amphetamines Screen U Benzodiazepines Scrn U Oth Cocaine Metabols U Cannabinoids Screen Alcohol, Quantitative 52 H C. difficile Ag & Toxin Blood Type Antibody Screen 05/05/18 05/05/18 05/05/18 16:00 17:45 17:47 WBC RBC Hgb Hct MCV MCH MCHC RDW Plt Count MPV Neut % (Auto) Lymph % (Auto) [place] % (Auto) Eos % (Auto) Baso % (Auto) Neut # (Auto) Lymph # (Auto) [place] # (Auto) Eos # (Auto) Baso # (Auto) Neutrophils % (Manual) Band Neutrophils % Lymphocytes % (Manual) Monocytes % (Manual) Nucleated RBC % Differential Comment Platelet Estimate Polychromasia Hypochromasia (manual) Poikilocytosis (manual Anisocytosis (manual) Microcytosis (manual) Target Cells Ovalocytes [place] Cells PT INR APTT Puncture Site pCO2 pO2 42 22 L HCO3 ABG pH ABG Total CO2 ABG O2 Saturation ABG Base Excess ABG Hemoglobin ABG Carboxyhemoglobin POC ABG HHb (Measured) ABG Methemoglobin Jeff Test ABG Potassium VBG pH 7.42 7.42 VBG pCO2 25 L 30 L VBG HCO3 19.3 20.3 VBG Total CO2 17.0 L 20.4 L VBG O2 Sat (Calc) 77.2 H 34.1 L VBG Base Excess -6.5 L -3.9 L VBG Potassium 4.0 4.0 A-a O2 Difference Respiratory Index Hgb O2 Saturation Glucose 110 102 Lactate 6.5 H* 6.4 H* Vent Mode Mechanical Rate FiO2 Tidal Volume PEEP Crit Value Called To Dr. nasrin alexandra Crit Value Called By Jasvir johnston Crit Value Read Back Y Y Blood Gas Notified Time 1603 1750 Sodium 143.0 142.0 Potassium Chloride 113.0 H 110.0 H Carbon Dioxide Anion Gap BUN Creatinine Est GFR ( Amer) Est GFR (Non-Af Amer) POC Glucose (mg/dL) Random Glucose Lactic Acid Calcium Phosphorus Magnesium Total Bilirubin AST ALT Alkaline Phosphatase Ammonia Total Creatine Kinase CK-MB (Mass) Troponin I NT-Pro-B Natriuret Pep Total Protein Albumin Globulin Albumin/Globulin Ratio Lipase Arterial Blood Potassium Venous Blood Potassium 4.0 4.0 Urine Color Urine Clarity Urine pH Ur Specific [place] Urine Protein Urine Glucose (UA) Urine Ketones Urine Blood Urine Nitrate Urine Bilirubin Urine Urobilinogen Ur Leukocyte Esterase Urine WBC (Auto) Urine RBC (Auto) Ur Squamous Epith Cells Urine Yeast (Budding) Urine Opiates Screen Urine Methadone Screen Ur Barbiturates Screen Ur Phencyclidine Scrn Ur Amphetamines Screen U Benzodiazepines Scrn U Oth Cocaine Metabols U Cannabinoids Screen Alcohol, Quantitative C. difficile Ag & Toxin Blood Type AB POSITIVE Antibody Screen Negative 05/05/18 05/05/18 05/05/18 19:25 21:50 23:33 WBC RBC Hgb Hct MCV MCH MCHC RDW Plt Count MPV Neut % (Auto) Lymph % (Auto) [place] % (Auto) Eos % (Auto) Baso % (Auto) Neut # (Auto) Lymph # (Auto) [place] # (Auto) Eos # (Auto) Baso # (Auto) Neutrophils % (Manual) Band Neutrophils % Lymphocytes % (Manual) Monocytes % (Manual) Nucleated RBC % Differential Comment Platelet Estimate Polychromasia Hypochromasia (manual) Poikilocytosis (manual Anisocytosis (manual) Microcytosis (manual) Target Cells Ovalocytes [place] Cells PT INR APTT Puncture Site Rr Rba pCO2 77 H* 42 pO2 116 H 77 L HCO3 15.3 L 22.6 ABG pH 7.02 L* 7.34 L ABG Total CO2 22.3 24.0 ABG O2 Saturation 97.7 97.1 ABG Base Excess -12.3 L -2.9 L ABG Hemoglobin 8.5 L ABG Carboxyhemoglobin 2.7 H POC ABG HHb (Measured) 2.8 ABG Methemoglobin 1.1 Jeff Test Yes Na ABG Potassium 4.1 VBG pH VBG pCO2 VBG HCO3 VBG Total CO2 VBG O2 Sat (Calc) VBG Base Excess VBG Potassium A-a O2 Difference 73.0 156.0 Respiratory Index 0.6 2.0 Hgb O2 Saturation 93.4 L Glucose 114 H Lactate 5.1 H* Vent Mode Prvc Mechanical Rate 20 FiO2 40.0 40.0 Tidal Volume 500 PEEP 5 Crit Value Called To Ed rn Crit Value Called By Annemarie rt Crit Value Read Back Y Blood Gas Notified Time 1954 Sodium 142.0 Potassium Chloride 109.0 H Carbon Dioxide Anion Gap BUN Creatinine Est GFR ( Amer) Est GFR (Non-Af Amer) POC Glucose (mg/dL) 127 H Random Glucose Lactic Acid Calcium Phosphorus Magnesium Total Bilirubin AST ALT Alkaline Phosphatase Ammonia Total Creatine Kinase CK-MB (Mass) Troponin I NT-Pro-B Natriuret Pep Total Protein Albumin Globulin Albumin/Globulin Ratio Lipase Arterial Blood Potassium 4.1 Venous Blood Potassium Urine Color Urine Clarity Urine pH Ur Specific [place] Urine Protein Urine Glucose (UA) Urine Ketones Urine Blood Urine Nitrate Urine Bilirubin Urine Urobilinogen Ur Leukocyte Esterase Urine WBC (Auto) Urine RBC (Auto) Ur Squamous Epith Cells Urine Yeast (Budding) Urine Opiates Screen Urine Methadone Screen Ur Barbiturates Screen Ur Phencyclidine Scrn Ur Amphetamines Screen U Benzodiazepines Scrn U Oth Cocaine Metabols U Cannabinoids Screen Alcohol, Quantitative C. difficile Ag & Toxin Blood Type Antibody Screen 05/06/18 05/06/18 05/06/18 01:01 01:01 01:01 WBC RBC Hgb Hct MCV MCH MCHC RDW Plt Count MPV Neut % (Auto) Lymph % (Auto) [place] % (Auto) Eos % (Auto) Baso % (Auto) Neut # (Auto) Lymph # (Auto) [place] # (Auto) Eos # (Auto) Baso # (Auto) Neutrophils % (Manual) Band Neutrophils % Lymphocytes % (Manual) Monocytes % (Manual) Nucleated RBC % Differential Comment Platelet Estimate Polychromasia Hypochromasia (manual) Poikilocytosis (manual Anisocytosis (manual) Microcytosis (manual) Target Cells Ovalocytes [place] Cells PT INR APTT Puncture Site pCO2 pO2 HCO3 ABG pH ABG Total CO2 ABG O2 Saturation ABG Base Excess ABG Hemoglobin ABG Carboxyhemoglobin POC ABG HHb (Measured) ABG Methemoglobin Jeff Test ABG Potassium VBG pH VBG pCO2 VBG HCO3 VBG Total CO2 VBG O2 Sat (Calc) VBG Base Excess VBG Potassium A-a O2 Difference Respiratory Index Hgb O2 Saturation Glucose Lactate Vent Mode Mechanical Rate FiO2 Tidal Volume PEEP Crit Value Called To Crit Value Called By Crit Value Read Back Blood Gas Notified Time Sodium 141 Potassium 4.2 Chloride 108 H Carbon Dioxide 24 Anion Gap 13 BUN 13 Creatinine 0.9 Est GFR ( Amer) > 60 Est GFR (Non-Af Amer) > 60 POC Glucose (mg/dL) Random Glucose 123 H Lactic Acid 2.5 H Calcium 7.4 L Phosphorus 4.3 Magnesium 1.4 L Total Bilirubin 1.3 AST 79 H ALT 38 Alkaline Phosphatase 92 Ammonia Total Creatine Kinase 499 H CK-MB (Mass) 6.48 H Troponin I 0.1380 H* NT-Pro-B Natriuret Pep Total Protein 6.3 Albumin 2.4 L Globulin 3.9 Albumin/Globulin Ratio 0.6 L Lipase Arterial Blood Potassium Venous Blood Potassium Urine Color Urine Clarity Urine pH Ur Specific [place] Urine Protein Urine Glucose (UA) Urine Ketones Urine Blood Urine Nitrate Urine Bilirubin Urine Urobilinogen Ur Leukocyte Esterase Urine WBC (Auto) Urine RBC (Auto) Ur Squamous Epith Cells Urine Yeast (Budding) Urine Opiates Screen Urine Methadone Screen Ur Barbiturates Screen Ur Phencyclidine Scrn Ur Amphetamines Screen U Benzodiazepines Scrn U Oth Cocaine Metabols U Cannabinoids Screen Alcohol, Quantitative C. difficile Ag & Toxin Blood Type Antibody Screen 05/06/18 05/06/18 05/06/18 03:25 03:26 03:26 WBC RBC Hgb Hct MCV MCH MCHC RDW Plt Count MPV Neut % (Auto) Lymph % (Auto) [place] % (Auto) Eos % (Auto) Baso % (Auto) Neut # (Auto) Lymph # (Auto) [place] # (Auto) Eos # (Auto) Baso # (Auto) Neutrophils % (Manual) Band Neutrophils % Lymphocytes % (Manual) Monocytes % (Manual) Nucleated RBC % Differential Comment Platelet Estimate Polychromasia Hypochromasia (manual) Poikilocytosis (manual Anisocytosis (manual) Microcytosis (manual) Target Cells Ovalocytes [place] Cells PT INR APTT Puncture Site pCO2 pO2 HCO3 ABG pH ABG Total CO2 ABG O2 Saturation ABG Base Excess ABG Hemoglobin ABG Carboxyhemoglobin POC ABG HHb (Measured) ABG Methemoglobin Jeff Test ABG Potassium VBG pH VBG pCO2 VBG HCO3 VBG Total CO2 VBG O2 Sat (Calc) VBG Base Excess VBG Potassium A-a O2 Difference Respiratory Index Hgb O2 Saturation Glucose Lactate Vent Mode Mechanical Rate FiO2 Tidal Volume PEEP Crit Value Called To Crit Value Called By Crit Value Read Back Blood Gas Notified Time Sodium Potassium Chloride Carbon Dioxide Anion Gap BUN Creatinine Est GFR ( Amer) Est GFR (Non-Af Amer) POC Glucose (mg/dL) Random Glucose Lactic Acid Calcium Phosphorus Magnesium Total Bilirubin AST ALT Alkaline Phosphatase Ammonia Total Creatine Kinase CK-MB (Mass) Troponin I NT-Pro-B Natriuret Pep Total Protein Albumin Globulin Albumin/Globulin Ratio Lipase Arterial Blood Potassium Venous Blood Potassium Urine Color [place] Urine Clarity Clear Urine pH 5.0 Ur Specific [place] 1.025 Urine Protein 3+ H Urine Glucose (UA) Normal Urine Ketones Negative Urine Blood 3+ H Urine Nitrate Negative Urine Bilirubin Negative Urine Urobilinogen 2.0 Ur Leukocyte Esterase Neg Urine WBC (Auto) 9 H Urine RBC (Auto) 707 H Ur Squamous Epith Cells 1 Urine Yeast (Budding) Few H Urine Opiates Screen Negative Urine Methadone Screen Negative Ur Barbiturates Screen Negative Ur Phencyclidine Scrn Negative Ur Amphetamines Screen Negative U Benzodiazepines Scrn Negative U Oth Cocaine Metabols Negative U Cannabinoids Screen Negative Alcohol, Quantitative C. difficile Ag & Toxin Negative Blood Type Antibody Screen 05/06/18 05/06/18 05/06/18 03:28 04:20 05:48 WBC 14.6 H RBC 3.51 L Hgb 7.7 L Hct 25.6 L MCV 72.9 L MCH 22.0 L MCHC 30.1 L RDW 22.4 H Plt Count 36 L D MPV 8.4 Neut % (Auto) 90.3 H Lymph % (Auto) 5.6 L [place] % (Auto) 3.5 Eos % (Auto) 0.0 Baso % (Auto) 0.6 Neut # (Auto) 13.2 H Lymph # (Auto) 0.8 L [place] # (Auto) 0.5 Eos # (Auto) 0.0 Baso # (Auto) 0.1 Neutrophils % (Manual) 94 H Band Neutrophils % 1 Lymphocytes % (Manual) 4 L Monocytes % (Manual) 1 Nucleated RBC % 1 H Differential Comment Platelet Estimate Decreased L Polychromasia Slight Hypochromasia (manual) Moderate Poikilocytosis (manual Anisocytosis (manual) Moderate Microcytosis (manual) Slight Target Cells Ovalocytes Slight [place] Cells PT INR APTT Puncture Site Rr pCO2 31 L pO2 121 H HCO3 24.3 ABG pH 7.46 H ABG Total CO2 23.0 ABG O2 Saturation 99.4 H ABG Base Excess -0.9 ABG Hemoglobin ABG Carboxyhemoglobin POC ABG HHb (Measured) ABG Methemoglobin Jeff Test Pos ABG Potassium 3.6 VBG pH VBG pCO2 VBG HCO3 VBG Total CO2 VBG O2 Sat (Calc) VBG Base Excess VBG Potassium A-a O2 Difference 125.0 Respiratory Index 1.0 Hgb O2 Saturation Glucose 123 H Lactate 1.3 Vent Mode Prvc Mechanical Rate 20 FiO2 40.0 Tidal Volume 500 PEEP 5 Crit Value Called To Crit Value Called By Crit Value Read Back Blood Gas Notified Time Sodium 143.0 Potassium Chloride 117.0 H Carbon Dioxide Anion Gap BUN Creatinine Est GFR ( Amer) Est GFR (Non-Af Amer) POC Glucose (mg/dL) 108 Random Glucose Lactic Acid Calcium Phosphorus Magnesium Total Bilirubin AST ALT Alkaline Phosphatase Ammonia Total Creatine Kinase CK-MB (Mass) Troponin I NT-Pro-B Natriuret Pep Total Protein Albumin Globulin Albumin/Globulin Ratio Lipase Arterial Blood Potassium 3.6 Venous Blood Potassium Urine Color Urine Clarity Urine pH Ur Specific [place] Urine Protein Urine Glucose (UA) Urine Ketones Urine Blood Urine Nitrate Urine Bilirubin Urine Urobilinogen Ur Leukocyte Esterase Urine WBC (Auto) Urine RBC (Auto) Ur Squamous Epith Cells Urine Yeast (Budding) Urine Opiates Screen Urine Methadone Screen Ur Barbiturates Screen Ur Phencyclidine Scrn Ur Amphetamines Screen U Benzodiazepines Scrn U Oth Cocaine Metabols U Cannabinoids Screen Alcohol, Quantitative C. difficile Ag & Toxin Blood Type Antibody Screen 05/06/18 05/06/18 05/06/18 06:22 06:22 06:22 WBC RBC Hgb Hct MCV MCH MCHC RDW Plt Count MPV Neut % (Auto) Lymph % (Auto) [place] % (Auto) Eos % (Auto) Baso % (Auto) Neut # (Auto) Lymph # (Auto) [place] # (Auto) Eos # (Auto) Baso # (Auto) Neutrophils % (Manual) Band Neutrophils % Lymphocytes % (Manual) Monocytes % (Manual) Nucleated RBC % Differential Comment Platelet Estimate Polychromasia Hypochromasia (manual) Poikilocytosis (manual Anisocytosis (manual) Microcytosis (manual) Target Cells Ovalocytes [place] Cells PT 19.8 H INR 1.8 APTT 38 H Puncture Site pCO2 pO2 HCO3 ABG pH ABG Total CO2 ABG O2 Saturation ABG Base Excess ABG Hemoglobin ABG Carboxyhemoglobin POC ABG HHb (Measured) ABG Methemoglobin Jeff Test ABG Potassium VBG pH VBG pCO2 VBG HCO3 VBG Total CO2 VBG O2 Sat (Calc) VBG Base Excess VBG Potassium A-a O2 Difference Respiratory Index Hgb O2 Saturation Glucose Lactate Vent Mode Mechanical Rate FiO2 Tidal Volume PEEP Crit Value Called To Crit Value Called By Crit Value Read Back Blood Gas Notified Time Sodium 138 Potassium 4.0 Chloride 110 H Carbon Dioxide 24 Anion Gap 9 L BUN 15 Creatinine 0.9 Est GFR ( Amer) > 60 Est GFR (Non-Af Amer) > 60 POC Glucose (mg/dL) Random Glucose 125 H Lactic Acid Calcium 7.0 L Phosphorus 4.0 Magnesium 1.8 Total Bilirubin 1.1 AST 58 ALT 31 Alkaline Phosphatase 84 Ammonia 65 H D Total Creatine Kinase 292 H CK-MB (Mass) 3.60 H Troponin I 0.1260 H* NT-Pro-B Natriuret Pep Total Protein 5.3 L Albumin 2.0 L Globulin 3.4 Albumin/Globulin Ratio 0.6 L Lipase Arterial Blood Potassium Venous Blood Potassium Urine Color Urine Clarity Urine pH Ur Specific [place] Urine Protein Urine Glucose (UA) Urine Ketones Urine Blood Urine Nitrate Urine Bilirubin Urine Urobilinogen Ur Leukocyte Esterase Urine WBC (Auto) Urine RBC (Auto) Ur Squamous Epith Cells Urine Yeast (Budding) Urine Opiates Screen Urine Methadone Screen Ur Barbiturates Screen Ur Phencyclidine Scrn Ur Amphetamines Screen U Benzodiazepines Scrn U Oth Cocaine Metabols U Cannabinoids Screen Alcohol, Quantitative C. difficile Ag & Toxin Blood Type Antibody Screen 05/06/18 05/06/18 05/06/18 06:22 06:26 06:26 WBC 11.3 H RBC 3.20 L Hgb 7.2 L Hct 23.1 L MCV 72.0 L MCH 22.5 L MCHC 31.2 L RDW 22.8 H Plt Count 32 L MPV 8.3 Neut % (Auto) 86.4 H Lymph % (Auto) 9.0 L [place] % (Auto) 4.4 Eos % (Auto) 0.1 Baso % (Auto) 0.1 Neut # (Auto) 9.7 H Lymph # (Auto) 1.0 [place] # (Auto) 0.5 Eos # (Auto) 0.0 Baso # (Auto) 0.0 Neutrophils % (Manual) Band Neutrophils % Lymphocytes % (Manual) Monocytes % (Manual) Nucleated RBC % Differential Comment Platelet Estimate Polychromasia Hypochromasia (manual) Poikilocytosis (manual Anisocytosis (manual) Microcytosis (manual) Target Cells Ovalocytes [place] Cells PT INR APTT Puncture Site pCO2 pO2 HCO3 ABG pH ABG Total CO2 ABG O2 Saturation ABG Base Excess ABG Hemoglobin ABG Carboxyhemoglobin POC ABG HHb (Measured) ABG Methemoglobin Jeff Test ABG Potassium VBG pH VBG pCO2 VBG HCO3 VBG Total CO2 VBG O2 Sat (Calc) VBG Base Excess VBG Potassium A-a O2 Difference Respiratory Index Hgb O2 Saturation Glucose Lactate Vent Mode Mechanical Rate FiO2 Tidal Volume PEEP Crit Value Called To Crit Value Called By Crit Value Read Back Blood Gas Notified Time Sodium Potassium Chloride Carbon Dioxide Anion Gap BUN Creatinine Est GFR ( Amer) Est GFR (Non-Af Amer) POC Glucose (mg/dL) Random Glucose Lactic Acid 1.3 Calcium Phosphorus Magnesium Total Bilirubin AST ALT Alkaline Phosphatase Ammonia Total Creatine Kinase CK-MB (Mass) Troponin I NT-Pro-B Natriuret Pep Total Protein Albumin Globulin Albumin/Globulin Ratio Lipase Arterial Blood Potassium Venous Blood Potassium Urine Color Urine Clarity Urine pH Ur Specific [place] Urine Protein Urine Glucose (UA) Urine Ketones Urine Blood Urine Nitrate Urine Bilirubin Urine Urobilinogen Ur Leukocyte Esterase Urine WBC (Auto) Urine RBC (Auto) Ur Squamous Epith Cells Urine Yeast (Budding) Urine Opiates Screen Urine Methadone Screen Ur Barbiturates Screen Ur Phencyclidine Scrn Ur Amphetamines Screen U Benzodiazepines Scrn U Oth Cocaine Metabols U Cannabinoids Screen Alcohol, Quantitative C. difficile Ag & Toxin Blood Type AB POSITIVE Antibody Screen Negative 05/06/18 09:12 WBC RBC Hgb Hct MCV MCH MCHC RDW Plt Count MPV Neut % (Auto) Lymph % (Auto) [place] % (Auto) Eos % (Auto) Baso % (Auto) Neut # (Auto) Lymph # (Auto) [place] # (Auto) Eos # (Auto) Baso # (Auto) Neutrophils % (Manual) Band Neutrophils % Lymphocytes % (Manual) Monocytes % (Manual) Nucleated RBC % Differential Comment Platelet Estimate Polychromasia Hypochromasia (manual) Poikilocytosis (manual Anisocytosis (manual) Microcytosis (manual) Target Cells Ovalocytes Pepe Cells PT INR APTT Puncture Site pCO2 pO2 HCO3 ABG pH ABG Total CO2 ABG O2 Saturation ABG Base Excess ABG Hemoglobin ABG Carboxyhemoglobin POC ABG HHb (Measured) ABG Methemoglobin Jeff Test ABG Potassium VBG pH VBG pCO2 VBG HCO3 VBG Total CO2 VBG O2 Sat (Calc) VBG Base Excess VBG Potassium A-a O2 Difference Respiratory Index Hgb O2 Saturation Glucose Lactate Vent Mode Mechanical Rate FiO2 Tidal Volume PEEP Crit Value Called To Crit Value Called By Crit Value Read Back Blood Gas Notified Time Sodium Potassium Chloride Carbon Dioxide Anion Gap BUN Creatinine Est GFR ( Amer) Est GFR (Non-Af Amer) POC Glucose (mg/dL) Random Glucose Lactic Acid 1.3 Calcium Phosphorus Magnesium Total Bilirubin AST ALT Alkaline Phosphatase Ammonia Total Creatine Kinase CK-MB (Mass) Troponin I NT-Pro-B Natriuret Pep Total Protein Albumin Globulin Albumin/Globulin Ratio Lipase Arterial Blood Potassium Venous Blood Potassium Urine Color Urine Clarity Urine pH Ur Specific [place] Urine Protein Urine Glucose (UA) Urine Ketones Urine Blood Urine Nitrate Urine Bilirubin Urine Urobilinogen Ur Leukocyte Esterase Urine WBC (Auto) Urine RBC (Auto) Ur Squamous Epith Cells Urine Yeast (Budding) Urine Opiates Screen Urine Methadone Screen Ur Barbiturates Screen Ur Phencyclidine Scrn Ur Amphetamines Screen U Benzodiazepines Scrn U Oth Cocaine Metabols U Cannabinoids Screen Alcohol, Quantitative C. difficile Ag & Toxin Blood Type Antibody Screen Attending/Attestation - Attestation I have personally seen and examined this patient.: Yes I have fully participated in the care of the patient.: Yes I have reviewed all pertinent clinical information: Yes Notes (Text): 05/06/18 15:04 I have seen and examined patient with GI fellow. Agree with above documentation with the following additions. In brief, this is a 42 year old male with history of decompensated ETOH cirrhosis, HTN, DM, obesity, lower extremity wounds who presents to hospital with complaint of worsening lower extremity drainage. In ER, he became somnolent and was intubated for airway protection. The remainder of history is obtained via chart review and discussion with nursing staff and patient family members. There was no reported abdominal pain, nausea, vomiting, fever/chills, weight loss, rectal bleeding, melena. 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 He had an EGD in July 2017 which showed gastritis and a colonoscopy in 2015 which showed internal hemorrhoids. Decompensated ETOH cirrhosis - admission MELD 12 HTN / DM Obesity Sepsis, lower extremity ulceration - NPO - Hold b-rigo therapy and diuretics in acute septic condition - Obtain stool studies (culture, c-difficile) - Obtain bedside abdominal US, r/o ascites. If present, patient would benefit from diagnostic paracentesis. - Continue with antibiotic therapy as per ID - Ventilator management as per critical care team - H/H stable, continue to monitor. Avoid over-transfusion in the cirrhotic patient without presence of overt blood loss. - Continue with lactulose for HE prevention - Will continue to monitor patient clinical course
--- NOTE | 2018-05-06 09:43 | RAD ---
Date of service: 05/05/2018 HISTORY: post intubation bed 10 COMPARISON: 05/05/2018 at 4:16 p.m. FINDINGS: Endotracheal tube terminates in the mid trachea. LUNGS: There is interval development of perihilar haziness. PLEURA: Suspect small effusions. No pneumothorax. CARDIOVASCULAR: Severe cardiomegaly. No aortic atherosclerotic calcification present. OSSEOUS STRUCTURES: Within normal limits for the patient's age. VISUALIZED UPPER ABDOMEN: Normal. OTHER FINDINGS: None. IMPRESSION: Question of developing pulmonary edema and effusions. Endotracheal tube terminates in the mid trachea.
--- NOTE | 2018-05-06 09:44 | RAD ---
Date of service: 05/06/2018 PROCEDURE: CHEST RADIOGRAPH, 1 VIEW HISTORY: respiratory failure COMPARISON: 05/05/2018 FINDINGS: Endotracheal tube terminates in the mid trachea. The nasogastric tube terminates in the stomach. LUNGS: There is interval improved aeration in the lungs with residual airspace disease in the right lower lobe. PLEURA: No pneumothorax. Suspect small effusions. CARDIOVASCULAR: Persistent severe cardiomegaly. No aortic atherosclerotic calcifications present. OSSEOUS STRUCTURES: Within normal limits for the patient's age. VISUALIZED UPPER ABDOMEN: Normal. OTHER FINDINGS: None. IMPRESSION: Interval improved aeration in the lungs. Residual airspace disease in the right lower lobe may represent pneumonia or pulmonary edema. Follow-up is advised. Stable position of endotracheal tube.
[2018-05-06] MEDS ORDERED: MethylPREDNISolone 40 mg Vial IVP SCH (10:00)
--- NOTE | 2018-05-06 12:08 | CP.PCM.CON ---
History of Present Illness - History of Present Illness History of Present Illness: INFECTIOUS DISEASE CONSULT; PATIENT IN icu BED 17. HISTORY OBTAINED FROM THE CHART/AND STAFF. PATIENT UNABLE TO GIVE ANY DETAILS. 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 There was also some reports of URI symptoms with NSAID and APAP use. In the ED, he had increased work of breathing and seizure activity described as generalized convulsions and loss of consciousness. He was given benzos with resolution and later intubated. PATIENT SEEN TODAY IN ICU. CASE DISCUSSED WITH MANAGER OF BROADCAST CONTENT.PATIENT JUST EXTUB ATED BY MANAGER OF BROADCAST CONTENT AND APPEARS TO BE CONFUSED AND NOT ABLE TO ANSWER QUESTIONS. FAMILY MEMBER MOTHER AT BEDSIDE. rEPORTS THAT PATIENT HAD RECENTLY BEING FOLLOWED [facility] LOWER EXTREMITIES GETTING HYPERBARIC OXYGEN AND ANTIBIOTICS. PRESENTLY PATIENT IS ON iv zOSYN AND iv VANCOMYCIN. pATIENT ALSO HAS HISTORY OFF COLONIZATION WITH mrsa WOUND INFECTION REPORTED. Unable to obtain ROS due to clinical condition MHx: See Above Surgical History- right leg hematoma drainage 10/2017 Meds: Reviewed in MAR FamHx: father- heart transplant and on hemodialysis SocHx: Supposed was sober > 6 months but EtOH lvl 52 and h/o daily vodka use; neg tob or illicits All: NKDA EGD 08/15/17: Gastritis (Hp-). EGD 2015 with Gr1 E CSPY 10/2015: Int Hemorrhoids Past Patient History - Infectious Disease Hx of Infectious Diseases: None - Past Medical History & Family History Past Medical History?: Yes - Past Social History Smoking Status: Never Smoked - CARDIAC Hx Cardiac Disorders: Yes Hx Angina: No Hx Atrial Fibrillation: No Hx Cardia Arrhythmia: No Hx Circulatory Problems: No Hx Congestive Heart Failure: Yes Hx Heart Attack: No Hx Heart Murmur: No Hx Heart Transplant: No Hx Hypercholesterolemia: Yes Hx Hypertension: Yes Hx Hypotension: No Hx Internal Defibrillator: No Hx Mitral Valve Prolapse: No Hx Pacemaker: No Hx Peripheral Edema: Yes Hx Peripheral Vascular Disease: No - PULMONARY Hx Respiratory Disorders: Yes Hx Asthma: Yes Hx Bronchitis: No Hx Chronic Obstructive Pulmonary Disease (COPD): No Hx Emphysema: No Hx Lung Cancer: No Hx Pneumonia: Yes (3 years ago) Hx Pulmonary Edema: No Hx Pulmonary Embolism: No Hx Respiratory Aspiration: No Hx Respiratory Tract Infection: No Hx Sleep Apnea: No Hx Tuberculosis: No - NEUROLOGICAL Hx Neurological Disorder: Yes Hx Alzheimer's Disease: No HX Cerebrovascular Accident: No Hx Dementia: No Hx Dizziness: No Hx Meningitis: No Hx Migraine: No Hx Multiple Sclerosis: No Hx Paralysis: No Hx Parkinson's Disease: No Hx Seizures: Yes (etoh induced) Hx Syncope: No Hx Transient Ischemic Attacks (TIA): No Hx Vertigo: No - HEENT Hx HEENT Problems: Yes Hx Blind: No Hx Cataracts: No Hx Deafness: No Hx Difficulty Chewing: No Hx Epistaxis: No Hx Glaucoma: No Hx Macular Degeneration: No Hx Sinusitis: No Other/Comment: eye glasses for reading - RENAL Hx Chronic Kidney Disease: No Hx Dialysis: No Hx Kidney Stones: No Hx Neurogenic Bladder: No Hx Pyelonephritis: No Hx Renal (Kidney) Cancer: No Hx Renal Failure: No Other/Comment: Decrease urinary flow - ENDOCRINE/METABOLIC Hx Endocrine Disorders: Yes Hx Adrenal Cancer: No Hx Diabetes Insipidus: No Hx Diabetes Mellitus Type 1: No Hx Diabetes Mellitus Type 2: Yes Hx Hyperthyroidism: No Hx Hypothyroidism: No Hx Systemic Lupus Erythematosus: No - HEMATOLOGICAL/ONCOLOGICAL Hx Blood Disorders: Yes Hx AIDS: No Hx Anemia: Yes Hx Blood Transfusions: No Hx Blood Transfusion Reaction: No Hx Bruising: No Hx Cancer: No Hx Chemotherapy: No Hx Cirrhosis: Yes Hx Gum Bleeding: No Hx Hemophilia: No Hx Hepatitis A: No Hx Hepatitis B: No Hx Hepatitis C: No Hx Human Immunodeficiency Virus (HIV): No Hx Leukemia: No Hx Metastesis: No Hx Shingles: No Hx Sickle Cell Disease: No Hx Unexplained Bleeding: No Hx von Willebrand's Disease: No - INTEGUMENTARY Hx Dermatological Problems: Yes Hx Basil Cell: No Hx Jewell: No Hx Cellulitis: No Hx Eczema: No Hx Melanoma: No Hx Psoriasis: Yes Hx Squamous Cell: No Other/Comment: Psoriatic Arthritis, Right LE wounds, Perineal excoriation - MUSCULOSKELETAL/RHEUMATOLOGICAL Hx Musculoskeletal Disorders: Yes Hx Arthritis: Yes Hx Back Pain: No Hx Degenerative Joint Disease: No Hx Falls: Yes (Mother reports frequent falls due to leg swelling) Hx Fractures: No Hx Gout: No Hx Herniated Disk: No Hx Myasthenia Gravis: No Hx Osteoarthritis: No Hx Osteomyelitis: No Hx Osteoporosis: No Hx Rhabdomyolysis: No Hx Rheumatoid Arthritis: No Hx Spinal Stenosis: No Hx Unsteady Gait: Yes - GASTROINTESTINAL Hx Gastrointestinal Disorders: Yes Hx Bowel Surgery: No Hx Clostridium Difficile: No Hx Colitis: No Hx Colostomy: No Hx Constipation: No Hx Crohn's Disease: No Hx Diarrhea: Yes Hx Diverticulitis: No Hx Esophageal Varices: Yes Hx Fatty Liver Disease: No Hx Gall Bladder Disease: No Hx Gastritis: No Hx Gastroesophageal Reflux: No Hx Hemorrhoids: No Hx Ileostomy: No Hx Irritable Bowel: No Hx Liver Failure: No Hx Nausea: No Hx Pancreatitis: No HX Swallowing Problems: No Hx Ulcer: Yes Hx Vomiting: No Other/Comment: Liver disease, esophageal varices - GENITOURINARY/GYNECOLOGICAL Hx Genitourinary Disorders: No Hx Bladder Cancer: No Hx Bladder Stone: No Hx Hematuria: No Hx Incontinence: No Hx Prostate Cancer: No Hx Prostate Problems: No Hx Reproductive Disorders: No Hx Sexually Transmitted Disorders: No Hx Urinary Tract Infection: No - PSYCHIATRIC Hx Psychophysiologic Disorder: Yes Hx Anxiety: Yes Hx Bipolar Disorder: No Hx Depression: Yes Hx Emotional Abuse: No Hx Hallucinations: No Hx Panic Symptoms: No Hx Post Traumatic Stress Disorder: No Hx Psychosis: No Hx Physical Abuse: No Hx Schizophrenia: No Hx Sexual Abuse: No Hx Substance Use: No (ETOH) - SURGICAL HISTORY Hx Surgeries: Yes Hx Abdominal Aortic Aneurysm Repair: No Hx Amputation: No Hx Angiogram: No Hx Angioplasty: No Hx Appendectomy: No Hx Arteriovenous Shunt: No Hx Arthroscopy: No Hx Bile Duct Stent: No Hx Breast Biopsy: No Hx Cataract Extraction: No Hx Cardiac Catheterization: No Hx Carotid Endarterectomy: No Hx Section: No Hx Cholecystectomy: No Hx Coronary Artery Bypass Graft: No Hx Coronary Stent: No Hx Dilation and Curettage: No Hx Eye Surgery: No Hx Femoral-Popliteal Bypass Graft: No Hx Gastric Bypass Surgery: No Hx Herniorrhaphy: No Hx Hysterectomy: No Hx Joint Replacement: No Hx Kidney Transplant: No Hx Liver Transplant: No Hx Mastectomy: No Hx Musculoskeletal Surgery: No Hx Open Heart Surgery: No Hx Open Reduction Internal Fixation: No Hx Orthopedic Surgery: Yes (rt. knee swelling) Hx Parathyroidectomy: No Hx Penile Implant: No Hx Pulmonary Surgery: No Hx Splenectomy: No Hx Thyroidectomy: No Hx Tonsillectomy: No Hx Tubal Ligation: No Hx Valve Replacement: No Hx Vascular Surgery: No Hx Vascular Access Device: No Other/Comment: Endoscopy/colonscopy - ANESTHESIA Hx Anesthesia: Yes Hx Anesthesia Reactions: No Hx Malignant Hyperthermia: No Has any member of the family had a problem w/ anesthesia?: No Meds Allergies/Adverse Reactions: Allergies Allergy/AdvReac Type Severity Reaction Status Date / Time No Known Allergies Allergy Verified 04/10/18 14:55 - Medications Medications: Current Medications Albuterol/Ipratropium (Duoneb 3 Mg/0.5 Mg (3 Ml) Ud) 3 ml INH RQ6 FLY Last Admin: 05/06/18 07:34 Dose: 3 ml Furosemide (Lasix) 20 mg PO DAILY FLY Dexmedetomidine HCl 200 mcg/ (Sodium Chloride) 50 mls @ 4.99 mls/hr IV TITR PRN; Protocol PRN Reason: Agitation Piperacillin Sod/Tazobactam (Sod 3.375 gm/ Sodium Chloride) 100 mls @ 200 mls/hr IVPB Q6H FLY; Protocol Last Admin: 05/06/18 08:00 Dose: 200 mls/hr Vancomycin/Sodium Chloride (Vancomycin 1 Gm/Ns 200 Ml) 1 gm in 200 mls @ 133 mls/hr IVPB Q12H FLY; Protocol Stop: 05/10/18 20:31 Last Admin: 05/06/18 08:30 Dose: 133 mls/hr Propofol (Diprivan) 1,000 mg in 100 mls @ 2.994 mls/hr IV .Q24H PRN; Protocol PRN Reason: TITRATE PER MD ORDER Dexmedetomidine HCl 200 mcg/ (Sodium Chloride) 50 mls @ 4.99 mls/hr IV TITR PRN; Protocol PRN Reason: Agitation Last Admin: 05/06/18 05:35 Dose: 0.22 mcg/kg/hr, 5.49 mls/hr Lactulose (Enulose) 20 gm PO Q12 FLY Last Admin: 05/06/18 09:10 Dose: 20 gm Methylprednisolone (Solu-Medrol) 40 mg IVP Q12 FLY Stop: 05/08/18 22:01 Pantoprazole Sodium (Protonix Inj) 40 mg IVP Q12 FLY Last Admin: 05/06/18 09:10 Dose: 40 mg Phytonadione (Vitamin K Tab) 10 mg PO DAILY [facility] Physical Exam - Constitutional Appears: No Acute Distress, Confused Additional comments: JUST EXTUBATED - Head Exam Head Exam: NORMAL INSPECTION - Eye Exam Eye Exam: EOMI, PERRL - ENT Exam ENT Exam: Mucous Membranes Dry, Normal Oropharynx - Neck Exam Neck exam: Positive for: Normal Inspection - Respiratory Exam Respiratory Exam: Decreased Breath Sounds (AT THE BASES.), Prolonged Expiratory Phase, Rhonchi (RT SIDED) - Cardiovascular Exam Cardiovascular Exam: Tachycardia, Irregular Rhythm, +S1, +S2 - GI/Abdominal Exam GI & Abdominal Exam: Normal Bowel Sounds, Soft, Tenderness (EPIGASTRIC REGION AND UMBLICAL.+VE ASCITES) - Extremities Exam Extremities exam: Positive for: pedal edema (2+), pedal pulses present (RIGHT LOWER EXTREMITY WITH DRESSING IN PLACE. bILATERAL vENODYNE.) - Neurological Exam Neurological exam: Alert, Altered, CN II-XII Intact - Psychiatric Exam Psychiatric exam: Normal Affect - Skin Skin Exam: Rash (GENERALIZED SCALY RASH NOTED ON THE ELBOW IS LOWER EXTREMITIES KNEES CONSISTENT WITH PSORIASIS.), Warm Results - Vital Signs Recent Vital Signs: Last Vital Signs Temp 99.6 F 05/06/18 04:00 Pulse 92 H 05/06/18 08:30 Resp 20 05/06/18 08:30 BP 128/73 05/06/18 10:07 Pulse Ox 100 05/06/18 08:30 - Labs Result Diagrams: 05/06/18 06:26 05/06/18 06:22 Labs: Laboratory Results - last 24 hr 05/05/18 05/05/18 05/05/18 14:47 15:57 15:57 WBC 21.5 H D RBC 4.02 L Hgb 9.1 L Hct 29.6 L MCV 73.8 L MCH 22.6 L MCHC 30.6 L RDW 22.8 H Plt Count 56 L D MPV 8.4 Neut % (Auto) 93.8 H Lymph % (Auto) 2.1 L Saline % (Auto) 3.9 Eos % (Auto) 0.0 Baso % (Auto) 0.2 Neut # (Auto) 20.2 H Lymph # (Auto) 0.5 L Saline # (Auto) 0.8 Eos # (Auto) 0.0 Baso # (Auto) 0.0 Neutrophils % (Manual) 79 H Band Neutrophils % 17 H* Lymphocytes % (Manual) 1 L Monocytes % (Manual) 3 Nucleated RBC % Differential Comment Platelet Estimate Decreased L Polychromasia Hypochromasia (manual) Slight Poikilocytosis (manual Slight Anisocytosis (manual) Slight Microcytosis (manual) Target Cells Slight Ovalocytes Slight Pepe Cells Slight PT INR APTT Puncture Site pCO2 pO2 HCO3 ABG pH ABG Total CO2 ABG O2 Saturation ABG Base Excess ABG Hemoglobin ABG Carboxyhemoglobin POC ABG HHb (Measured) ABG Methemoglobin Jeff Test ABG Potassium VBG pH VBG pCO2 VBG HCO3 VBG Total CO2 VBG O2 Sat (Calc) VBG Base Excess VBG Potassium A-a O2 Difference Respiratory Index Hgb O2 Saturation Glucose Lactate Vent Mode Mechanical Rate FiO2 Tidal Volume PEEP Crit Value Called To Crit Value Called By Crit Value Read Back Blood Gas Notified Time Sodium 140 Potassium 4.1 Chloride 107 Carbon Dioxide 18 L Anion Gap 19 BUN 11 Creatinine 0.8 Est GFR ( Amer) > 60 Est GFR (Non-Af Amer) > 60 POC Glucose (mg/dL) 135 H Random Glucose 120 H Lactic Acid Calcium 7.8 L Phosphorus 4.5 Magnesium 1.4 L Total Bilirubin 1.6 H AST 86 H D ALT 34 Alkaline Phosphatase 135 H D Ammonia Total Creatine Kinase 710 H CK-MB (Mass) Troponin I 0.1340 H* NT-Pro-B Natriuret Pep 5130 H Total Protein 7.1 Albumin 2.8 L Globulin 4.3 H Albumin/Globulin Ratio 0.7 L Lipase 229 Arterial Blood Potassium Venous Blood Potassium Urine Color Urine Clarity Urine pH Ur Specific [place] Urine Protein Urine Glucose (UA) Urine Ketones Urine Blood Urine Nitrate Urine Bilirubin Urine Urobilinogen Ur Leukocyte Esterase Urine WBC (Auto) Urine RBC (Auto) Ur Squamous Epith Cells Urine Yeast (Budding) Urine Opiates Screen Urine Methadone Screen Ur Barbiturates Screen Ur Phencyclidine Scrn Ur Amphetamines Screen U Benzodiazepines Scrn U Oth Cocaine Metabols U Cannabinoids Screen Alcohol, Quantitative 52 H Blood Type Antibody Screen 05/05/18 05/05/18 05/05/18 15:57 16:00 17:45 WBC RBC Hgb Hct MCV MCH MCHC RDW Plt Count MPV Neut % (Auto) Lymph % (Auto) Saline % (Auto) Eos % (Auto) Baso % (Auto) Neut # (Auto) Lymph # (Auto) Saline # (Auto) Eos # (Auto) Baso # (Auto) Neutrophils % (Manual) Band Neutrophils % Lymphocytes % (Manual) Monocytes % (Manual) Nucleated RBC % Differential Comment Platelet Estimate Polychromasia Hypochromasia (manual) Poikilocytosis (manual Anisocytosis (manual) Microcytosis (manual) Target Cells Ovalocytes Pepe Cells PT 15.8 H INR 1.4 APTT 37 H Puncture Site pCO2 pO2 42 HCO3 ABG pH ABG Total CO2 ABG O2 Saturation ABG Base Excess ABG Hemoglobin ABG Carboxyhemoglobin POC ABG HHb (Measured) ABG Methemoglobin Jeff Test ABG Potassium VBG pH 7.42 VBG pCO2 25 L VBG HCO3 19.3 VBG Total CO2 17.0 L VBG O2 Sat (Calc) 77.2 H VBG Base Excess -6.5 L VBG Potassium 4.0 A-a O2 Difference Respiratory Index Hgb O2 Saturation Glucose 110 Lactate 6.5 H* Vent Mode Mechanical Rate FiO2 Tidal Volume PEEP Crit Value Called To Dr. alexandra Crit Value Called By Jasvir johnston Crit Value Read Back Y Blood Gas Notified Time 1603 Sodium 143.0 Potassium Chloride 113.0 H Carbon Dioxide Anion Gap BUN Creatinine Est GFR ( Amer) Est GFR (Non-Af Amer) POC Glucose (mg/dL) Random Glucose Lactic Acid Calcium Phosphorus Magnesium Total Bilirubin AST ALT Alkaline Phosphatase Ammonia Total Creatine Kinase CK-MB (Mass) Troponin I NT-Pro-B Natriuret Pep Total Protein Albumin Globulin Albumin/Globulin Ratio Lipase Arterial Blood Potassium Venous Blood Potassium 4.0 Urine Color Urine Clarity Urine pH Ur Specific [place] Urine Protein Urine Glucose (UA) Urine Ketones Urine Blood Urine Nitrate Urine Bilirubin Urine Urobilinogen Ur Leukocyte Esterase Urine WBC (Auto) Urine RBC (Auto) Ur Squamous Epith Cells Urine Yeast (Budding) Urine Opiates Screen Urine Methadone Screen Ur Barbiturates Screen Ur Phencyclidine Scrn Ur Amphetamines Screen U Benzodiazepines Scrn U Oth Cocaine Metabols U Cannabinoids Screen Alcohol, Quantitative Blood Type AB POSITIVE Antibody Screen Negative 05/05/18 05/05/18 05/05/18 17:47 19:25 21:50 WBC RBC Hgb Hct MCV MCH MCHC RDW Plt Count MPV Neut % (Auto) Lymph % (Auto) Saline % (Auto) Eos % (Auto) Baso % (Auto) Neut # (Auto) Lymph # (Auto) Saline # (Auto) Eos # (Auto) Baso # (Auto) Neutrophils % (Manual) Band Neutrophils % Lymphocytes % (Manual) Monocytes % (Manual) Nucleated RBC % Differential Comment Platelet Estimate Polychromasia Hypochromasia (manual) Poikilocytosis (manual Anisocytosis (manual) Microcytosis (manual) Target Cells Ovalocytes Pepe Cells PT INR APTT Puncture Site Rr Rba pCO2 77 H* 42 pO2 22 L 116 H 77 L HCO3 15.3 L 22.6 ABG pH 7.02 L* 7.34 L ABG Total CO2 22.3 24.0 ABG O2 Saturation 97.7 97.1 ABG Base Excess -12.3 L -2.9 L ABG Hemoglobin 8.5 L ABG Carboxyhemoglobin 2.7 H POC ABG HHb (Measured) 2.8 ABG Methemoglobin 1.1 Jeff Test Yes Na ABG Potassium 4.1 VBG pH 7.42 VBG pCO2 30 L VBG HCO3 20.3 VBG Total CO2 20.4 L VBG O2 Sat (Calc) 34.1 L VBG Base Excess -3.9 L VBG Potassium 4.0 A-a O2 Difference 73.0 156.0 Respiratory Index 0.6 2.0 Hgb O2 Saturation 93.4 L Glucose 102 114 H Lactate 6.4 H* 5.1 H* Vent Mode Prvc Mechanical Rate 20 FiO2 40.0 40.0 Tidal Volume 500 PEEP 5 Crit Value Called To Dr nasrin Moreno rn Crit Value Called By Jasvir Sharpe rt Crit Value Read Back Y Y Blood Gas Notified Time 1749 1954 Sodium 142.0 142.0 Potassium Chloride 110.0 H 109.0 H Carbon Dioxide Anion Gap BUN Creatinine Est GFR ( Amer) Est GFR (Non-Af Amer) POC Glucose (mg/dL) Random Glucose Lactic Acid Calcium Phosphorus Magnesium Total Bilirubin AST ALT Alkaline Phosphatase Ammonia Total Creatine Kinase CK-MB (Mass) Troponin I NT-Pro-B Natriuret Pep Total Protein Albumin Globulin Albumin/Globulin Ratio Lipase Arterial Blood Potassium 4.1 Venous Blood Potassium 4.0 Urine Color Urine Clarity Urine pH Ur Specific [place] Urine Protein Urine Glucose (UA) Urine Ketones Urine Blood Urine Nitrate Urine Bilirubin Urine Urobilinogen Ur Leukocyte Esterase Urine WBC (Auto) Urine RBC (Auto) Ur Squamous Epith Cells Urine Yeast (Budding) Urine Opiates Screen Urine Methadone Screen Ur Barbiturates Screen Ur Phencyclidine Scrn Ur Amphetamines Screen U Benzodiazepines Scrn U Oth Cocaine Metabols U Cannabinoids Screen Alcohol, Quantitative Blood Type Antibody Screen 05/05/18 05/06/18 05/06/18 23:33 01:01 01:01 WBC RBC Hgb Hct MCV MCH MCHC RDW Plt Count MPV Neut % (Auto) Lymph % (Auto) Saline % (Auto) Eos % (Auto) Baso % (Auto) Neut # (Auto) Lymph # (Auto) Saline # (Auto) Eos # (Auto) Baso # (Auto) Neutrophils % (Manual) Band Neutrophils % Lymphocytes % (Manual) Monocytes % (Manual) Nucleated RBC % Differential Comment Platelet Estimate Polychromasia Hypochromasia (manual) Poikilocytosis (manual Anisocytosis (manual) Microcytosis (manual) Target Cells Ovalocytes [place] Cells PT INR APTT Puncture Site pCO2 pO2 HCO3 ABG pH ABG Total CO2 ABG O2 Saturation ABG Base Excess ABG Hemoglobin ABG Carboxyhemoglobin POC ABG HHb (Measured) ABG Methemoglobin Jeff Test ABG Potassium VBG pH VBG pCO2 VBG HCO3 VBG Total CO2 VBG O2 Sat (Calc) VBG Base Excess VBG Potassium A-a O2 Difference Respiratory Index Hgb O2 Saturation Glucose Lactate Vent Mode Mechanical Rate FiO2 Tidal Volume PEEP Crit Value Called To Crit Value Called By Crit Value Read Back Blood Gas Notified Time Sodium 141 Potassium 4.2 Chloride 108 H Carbon Dioxide 24 Anion Gap 13 BUN 13 Creatinine 0.9 Est GFR ( Amer) > 60 Est GFR (Non-Af Amer) > 60 POC Glucose (mg/dL) 127 H Random Glucose 123 H Lactic Acid 2.5 H Calcium 7.4 L Phosphorus 4.3 Magnesium 1.4 L Total Bilirubin 1.3 AST 79 H ALT 38 Alkaline Phosphatase 92 Ammonia Total Creatine Kinase CK-MB (Mass) Troponin I NT-Pro-B Natriuret Pep Total Protein 6.3 Albumin 2.4 L Globulin 3.9 Albumin/Globulin Ratio 0.6 L Lipase Arterial Blood Potassium Venous Blood Potassium Urine Color Urine Clarity Urine pH Ur Specific [place] Urine Protein Urine Glucose (UA) Urine Ketones Urine Blood Urine Nitrate Urine Bilirubin Urine Urobilinogen Ur Leukocyte Esterase Urine WBC (Auto) Urine RBC (Auto) Ur Squamous Epith Cells Urine Yeast (Budding) Urine Opiates Screen Urine Methadone Screen Ur Barbiturates Screen Ur Phencyclidine Scrn Ur Amphetamines Screen U Benzodiazepines Scrn U Oth Cocaine Metabols U Cannabinoids Screen Alcohol, Quantitative Blood Type Antibody Screen 05/06/18 05/06/18 05/06/18 01:01 03:26 03:26 WBC RBC Hgb Hct MCV MCH MCHC RDW Plt Count MPV Neut % (Auto) Lymph % (Auto) Saline % (Auto) Eos % (Auto) Baso % (Auto) Neut # (Auto) Lymph # (Auto) Saline # (Auto) Eos # (Auto) Baso # (Auto) Neutrophils % (Manual) Band Neutrophils % Lymphocytes % (Manual) Monocytes % (Manual) Nucleated RBC % Differential Comment Platelet Estimate Polychromasia Hypochromasia (manual) Poikilocytosis (manual Anisocytosis (manual) Microcytosis (manual) Target Cells Ovalocytes [place] Cells PT INR APTT Puncture Site pCO2 pO2 HCO3 ABG pH ABG Total CO2 ABG O2 Saturation ABG Base Excess ABG Hemoglobin ABG Carboxyhemoglobin POC ABG HHb (Measured) ABG Methemoglobin Jeff Test ABG Potassium VBG pH VBG pCO2 VBG HCO3 VBG Total CO2 VBG O2 Sat (Calc) VBG Base Excess VBG Potassium A-a O2 Difference Respiratory Index Hgb O2 Saturation Glucose Lactate Vent Mode Mechanical Rate FiO2 Tidal Volume PEEP Crit Value Called To Crit Value Called By Crit Value Read Back Blood Gas Notified Time Sodium Potassium Chloride Carbon Dioxide Anion Gap BUN Creatinine Est GFR ( Amer) Est GFR (Non-Af Amer) POC Glucose (mg/dL) Random Glucose Lactic Acid Calcium Phosphorus Magnesium Total Bilirubin AST ALT Alkaline Phosphatase Ammonia Total Creatine Kinase 499 H CK-MB (Mass) 6.48 H Troponin I 0.1380 H* NT-Pro-B Natriuret Pep Total Protein Albumin Globulin Albumin/Globulin Ratio Lipase Arterial Blood Potassium Venous Blood Potassium Urine Color Tammy Urine Clarity Clear Urine pH 5.0 Ur Specific [place] 1.025 Urine Protein 3+ H Urine Glucose (UA) Normal Urine Ketones Negative Urine Blood 3+ H Urine Nitrate Negative Urine Bilirubin Negative Urine Urobilinogen 2.0 Ur Leukocyte Esterase Neg Urine WBC (Auto) 9 H Urine RBC (Auto) 707 H Ur Squamous Epith Cells 1 Urine Yeast (Budding) Few H Urine Opiates Screen Negative Urine Methadone Screen Negative Ur Barbiturates Screen Negative Ur Phencyclidine Scrn Negative Ur Amphetamines Screen Negative U Benzodiazepines Scrn Negative U Oth Cocaine Metabols Negative U Cannabinoids Screen Negative Alcohol, Quantitative Blood Type Antibody Screen 05/06/18 05/06/18 05/06/18 03:28 04:20 05:48 WBC 14.6 H RBC 3.51 L Hgb 7.7 L Hct 25.6 L MCV 72.9 L MCH 22.0 L MCHC 30.1 L RDW 22.4 H Plt Count 36 L D MPV 8.4 Neut % (Auto) 90.3 H Lymph % (Auto) 5.6 L Saline % (Auto) 3.5 Eos % (Auto) 0.0 Baso % (Auto) 0.6 Neut # (Auto) 13.2 H Lymph # (Auto) 0.8 L Saline # (Auto) 0.5 Eos # (Auto) 0.0 Baso # (Auto) 0.1 Neutrophils % (Manual) 94 H Band Neutrophils % 1 Lymphocytes % (Manual) 4 L Monocytes % (Manual) 1 Nucleated RBC % 1 H Differential Comment Platelet Estimate Decreased L Polychromasia Slight Hypochromasia (manual) Moderate Poikilocytosis (manual Anisocytosis (manual) Moderate Microcytosis (manual) Slight Target Cells Ovalocytes Slight Pepe Cells PT INR APTT Puncture Site Rr pCO2 31 L pO2 121 H HCO3 24.3 ABG pH 7.46 H ABG Total CO2 23.0 ABG O2 Saturation 99.4 H ABG Base Excess -0.9 ABG Hemoglobin ABG Carboxyhemoglobin POC ABG HHb (Measured) ABG Methemoglobin Jeff Test Pos ABG Potassium 3.6 VBG pH VBG pCO2 VBG HCO3 VBG Total CO2 VBG O2 Sat (Calc) VBG Base Excess VBG Potassium A-a O2 Difference 125.0 Respiratory Index 1.0 Hgb O2 Saturation Glucose 123 H Lactate 1.3 Vent Mode Prvc Mechanical Rate 20 FiO2 40.0 Tidal Volume 500 PEEP 5 Crit Value Called To Crit Value Called By Crit Value Read Back Blood Gas Notified Time Sodium 143.0 Potassium Chloride 117.0 H Carbon Dioxide Anion Gap BUN Creatinine Est GFR ( Amer) Est GFR (Non-Af Amer) POC Glucose (mg/dL) 108 Random Glucose Lactic Acid Calcium Phosphorus Magnesium Total Bilirubin AST ALT Alkaline Phosphatase Ammonia Total Creatine Kinase CK-MB (Mass) Troponin I NT-Pro-B Natriuret Pep Total Protein Albumin Globulin Albumin/Globulin Ratio Lipase Arterial Blood Potassium 3.6 Venous Blood Potassium Urine Color Urine Clarity Urine pH Ur Specific [place] Urine Protein Urine Glucose (UA) Urine Ketones Urine Blood Urine Nitrate Urine Bilirubin Urine Urobilinogen Ur Leukocyte Esterase Urine WBC (Auto) Urine RBC (Auto) Ur Squamous Epith Cells Urine Yeast (Budding) Urine Opiates Screen Urine Methadone Screen Ur Barbiturates Screen Ur Phencyclidine Scrn Ur Amphetamines Screen U Benzodiazepines Scrn U Oth Cocaine Metabols U Cannabinoids Screen Alcohol, Quantitative Blood Type Antibody Screen 05/06/18 05/06/18 05/06/18 06:22 06:22 06:22 WBC RBC Hgb Hct MCV MCH MCHC RDW Plt Count MPV Neut % (Auto) Lymph % (Auto) Saline % (Auto) Eos % (Auto) Baso % (Auto) Neut # (Auto) Lymph # (Auto) Saline # (Auto) Eos # (Auto) Baso # (Auto) Neutrophils % (Manual) Band Neutrophils % Lymphocytes % (Manual) Monocytes % (Manual) Nucleated RBC % Differential Comment Platelet Estimate Polychromasia Hypochromasia (manual) Poikilocytosis (manual Anisocytosis (manual) Microcytosis (manual) Target Cells Ovalocytes [place] Cells PT 19.8 H INR 1.8 APTT 38 H Puncture Site pCO2 pO2 HCO3 ABG pH ABG Total CO2 ABG O2 Saturation ABG Base Excess ABG Hemoglobin ABG Carboxyhemoglobin POC ABG HHb (Measured) ABG Methemoglobin Jeff Test ABG Potassium VBG pH VBG pCO2 VBG HCO3 VBG Total CO2 VBG O2 Sat (Calc) VBG Base Excess VBG Potassium A-a O2 Difference Respiratory Index Hgb O2 Saturation Glucose Lactate Vent Mode Mechanical Rate FiO2 Tidal Volume PEEP Crit Value Called To Crit Value Called By Crit Value Read Back Blood Gas Notified Time Sodium 138 Potassium 4.0 Chloride 110 H Carbon Dioxide 24 Anion Gap 9 L BUN 15 Creatinine 0.9 Est GFR ( Amer) > 60 Est GFR (Non-Af Amer) > 60 POC Glucose (mg/dL) Random Glucose 125 H Lactic Acid Calcium 7.0 L Phosphorus 4.0 Magnesium 1.8 Total Bilirubin 1.1 AST 58 ALT 31 Alkaline Phosphatase 84 Ammonia 65 H D Total Creatine Kinase 292 H CK-MB (Mass) 3.60 H Troponin I 0.1260 H* NT-Pro-B Natriuret Pep Total Protein 5.3 L Albumin 2.0 L Globulin 3.4 Albumin/Globulin Ratio 0.6 L Lipase Arterial Blood Potassium Venous Blood Potassium Urine Color Urine Clarity Urine pH Ur Specific [place] Urine Protein Urine Glucose (UA) Urine Ketones Urine Blood Urine Nitrate Urine Bilirubin Urine Urobilinogen Ur Leukocyte Esterase Urine WBC (Auto) Urine RBC (Auto) Ur Squamous Epith Cells Urine Yeast (Budding) Urine Opiates Screen Urine Methadone Screen Ur Barbiturates Screen Ur Phencyclidine Scrn Ur Amphetamines Screen U Benzodiazepines Scrn U Oth Cocaine Metabols U Cannabinoids Screen Alcohol, Quantitative Blood Type Antibody Screen 05/06/18 05/06/18 05/06/18 06:22 06:26 06:26 WBC 11.3 H RBC 3.20 L Hgb 7.2 L Hct 23.1 L MCV 72.0 L MCH 22.5 L MCHC 31.2 L RDW 22.8 H Plt Count 32 L MPV 8.3 Neut % (Auto) 86.4 H Lymph % (Auto) 9.0 L Saline % (Auto) 4.4 Eos % (Auto) 0.1 Baso % (Auto) 0.1 Neut # (Auto) 9.7 H Lymph # (Auto) 1.0 Saline # (Auto) 0.5 Eos # (Auto) 0.0 Baso # (Auto) 0.0 Neutrophils % (Manual) Band Neutrophils % Lymphocytes % (Manual) Monocytes % (Manual) Nucleated RBC % Differential Comment Platelet Estimate Polychromasia Hypochromasia (manual) Poikilocytosis (manual Anisocytosis (manual) Microcytosis (manual) Target Cells Ovalocytes [place] Cells PT INR APTT Puncture Site pCO2 pO2 HCO3 ABG pH ABG Total CO2 ABG O2 Saturation ABG Base Excess ABG Hemoglobin ABG Carboxyhemoglobin POC ABG HHb (Measured) ABG Methemoglobin Jeff Test ABG Potassium VBG pH VBG pCO2 VBG HCO3 VBG Total CO2 VBG O2 Sat (Calc) VBG Base Excess VBG Potassium A-a O2 Difference Respiratory Index Hgb O2 Saturation Glucose Lactate Vent Mode Mechanical Rate FiO2 Tidal Volume PEEP Crit Value Called To Crit Value Called By Crit Value Read Back Blood Gas Notified Time Sodium Potassium Chloride Carbon Dioxide Anion Gap BUN Creatinine Est GFR ( Amer) Est GFR (Non-Af Amer) POC Glucose (mg/dL) Random Glucose Lactic Acid 1.3 Calcium Phosphorus Magnesium Total Bilirubin AST ALT Alkaline Phosphatase Ammonia Total Creatine Kinase CK-MB (Mass) Troponin I NT-Pro-B Natriuret Pep Total Protein Albumin Globulin Albumin/Globulin Ratio Lipase Arterial Blood Potassium Venous Blood Potassium Urine Color Urine Clarity Urine pH Ur Specific [place] Urine Protein Urine Glucose (UA) Urine Ketones Urine Blood Urine Nitrate Urine Bilirubin Urine Urobilinogen Ur Leukocyte Esterase Urine WBC (Auto) Urine RBC (Auto) Ur Squamous Epith Cells Urine Yeast (Budding) Urine Opiates Screen Urine Methadone Screen Ur Barbiturates Screen Ur Phencyclidine Scrn Ur Amphetamines Screen U Benzodiazepines Scrn U Oth Cocaine Metabols U Cannabinoids Screen Alcohol, Quantitative Blood Type AB POSITIVE Antibody Screen Negative 05/06/18 09:12 WBC RBC Hgb Hct MCV MCH MCHC RDW Plt Count MPV Neut % (Auto) Lymph % (Auto) Saline % (Auto) Eos % (Auto) Baso % (Auto) Neut # (Auto) Lymph # (Auto) Saline # (Auto) Eos # (Auto) Baso # (Auto) Neutrophils % (Manual) Band Neutrophils % Lymphocytes % (Manual) Monocytes % (Manual) Nucleated RBC % Differential Comment Platelet Estimate Polychromasia Hypochromasia (manual) Poikilocytosis (manual Anisocytosis (manual) Microcytosis (manual) Target Cells Ovalocytes [place] Cells PT INR APTT Puncture Site pCO2 pO2 HCO3 ABG pH ABG Total CO2 ABG O2 Saturation ABG Base Excess ABG Hemoglobin ABG Carboxyhemoglobin POC ABG HHb (Measured) ABG Methemoglobin Jeff Test ABG Potassium VBG pH VBG pCO2 VBG HCO3 VBG Total CO2 VBG O2 Sat (Calc) VBG Base Excess VBG Potassium A-a O2 Difference Respiratory Index Hgb O2 Saturation Glucose Lactate Vent Mode Mechanical Rate FiO2 Tidal Volume PEEP Crit Value Called To Crit Value Called By Crit Value Read Back Blood Gas Notified Time Sodium Potassium Chloride Carbon Dioxide Anion Gap BUN Creatinine Est GFR ( Amer) Est GFR (Non-Af Amer) POC Glucose (mg/dL) Random Glucose Lactic Acid 1.3 Calcium Phosphorus Magnesium Total Bilirubin AST ALT Alkaline Phosphatase Ammonia Total Creatine Kinase CK-MB (Mass) Troponin I NT-Pro-B Natriuret Pep Total Protein Albumin Globulin Albumin/Globulin Ratio Lipase Arterial Blood Potassium Venous Blood Potassium Urine Color Urine Clarity Urine pH Ur Specific [place] Urine Protein Urine Glucose (UA) Urine Ketones Urine Blood Urine Nitrate Urine Bilirubin Urine Urobilinogen Ur Leukocyte Esterase Urine WBC (Auto) Urine RBC (Auto) Ur Squamous Epith Cells Urine Yeast (Budding) Urine Opiates Screen Urine Methadone Screen Ur Barbiturates Screen Ur Phencyclidine Scrn Ur Amphetamines Screen U Benzodiazepines Scrn U Oth Cocaine Metabols U Cannabinoids Screen Alcohol, Quantitative Blood Type Antibody Screen - Imaging and Cardiology Chest x-ray Status: Report reviewed by me (CXR 05/05/18 IMPROVING AERATION IN THE LUNGS WITH RESIDUAL AIRSPACE DISEASE RIGHT LOWER LOBE/OR PULMONARY EDEMA.) Assessment & Plan (1) Sepsis Status: Acute (2) Abdominal pain Status: Acute (3) Alcohol abuse Status: Acute (4) Leg abrasion Status: Acute (5) Leg edema Status: Acute (6) Psoriasiform dermatitis Status: Acute (7) Alcoholic cirrhosis of liver Status: Chronic Priority: High (8) Thrombocytopenia concurrent with and due to alcoholism Status: Acute - Assessment and Plan (Free Text) Plan: PLAN'; PANCULTURES. WOUND CULTURES RIGHT LOWER EXTREMITY PENDING. CONTINUE iv ZOSYN 3.375 iv PIGGYBACK EVERY 8 HOURLY 05/05/18 CONTINUE iv VANCOMYCIN 1 G EVERY 12 HOURLY .05/05/18 FOLLOW-UP VANCO TROUGH PRIOR TO THE FOURTH DOSEAND KEEP BETWEEN 10 AND 20. LOCAL WOUND CARE PER WOUND CARE NURSE. CONTACT PRECAUTIONS. MRSA SCREEN. SPUTUM GRAM STAIN AND CULTURE. DIARRHOEA W/U IN PROGRESS GI W/U PER ORDER. WILL FOLLOW ALONG WITH YOU AND MAKE FURTHER RECOMMENDATIONS NEEDED. THANK YOU.
[2018-05-06] MEDS ORDERED: Multiple Vitamins Oral Solution PO SCH (16:30)
[2018-05-06] MEDS: Thiamine 100 mg/ml Inj IV SCH (17:30)
[2018-05-06] MEDS: Multiple Vitamins Tab PO SCH (18:16)
--- NOTE | 2018-05-06 19:23 | CARD ---
APPROVED REPORT Date of service: 05/06/2018 EXAM: Two-dimensional and M-mode echocardiogram. Other Information Quality : GoodRhythm : INDICATION Infection:Rule out subacute bacterial endocarditis LV Function:Systolic 2D DIMENSIONS IVSd1.3 (0.7-1.1cm)LVDd6.2 (3.9-5.9cm) PWd1.2 (0.7-1.1cm)LA Rhpawt89 (18-58mL) LVDs5.1 (2.5-4.0cm)FS (%) 17.7 % LVEF (%)36.2 (>50%)LVEF (Blunt's)30 % M-Mode DIMENSIONS TAPSE20.82 cm Mitral Valve MV E Vrrqrdif997.8cm/sMV A Bogyjfgy62.2cm/sE/A ratio2.3 TDI E/Lateral E'0.0E/Medial E'0.0 Tricuspid Valve TR Peak [id number]/sTR Peak [id number] LEFT VENTRICLE The Left Ventricle is mildly dilated. There is normal left ventricular wall thickness. The systolic function is mildly to moderately impaired. The left ventricular diastolic function is normal. RIGHT VENTRICLE The right ventricle is normal size. ATRIA The left atrium is borderline dilated. The right atrium size is normal. AORTIC VALVE The aortic valve is normal in structure. MITRAL VALVE Mitral regurgitation is mild. TRICUSPID VALVE There is mild tricuspid regurgitation. PERICARDIAL EFFUSION There is a trace circumferential pericardial effusion. <Conclusion> Mild to moderate LV systolic dysfunction. Dilate LA and LV. Mild MR. Mild TR. Trace to small pericardial effusion. No definite vegetation seen, consider JUNIOR if clinically indicated.
--- NOTE | 2018-05-06 19:28 | CP.PCM.HP ---
History of Present Illness - History of Present Illness History of Present Illness: The patient was seen by me at 7:30 p.m. in the emergency room. The patient is in the bed #10. Initially, I spoke to the emergency room attending who called me for possible admission to the intensive care unit. CHIEF COMPLAINT: Brought into the emergency room because of increasing weakness and diarrhea and more worsening weakness. HISTORY OF PRESENT ILLNESS: The patient is a 42-year-old male with a history of alcoholic liver disease, mostly uncontrolled diabetes, history of multiple alcohol withdrawals in the past, also has a history of GI bleed with a small variceal bleeding, liver cirrhosis with ascites, significant psoriatic skin lesions, and also developed skin ulcers recently admitted recently with sepsis. At that time he was hospitalized, he was noted to have MRSA wound infection, and the patient was placed on vancomycin and also he was recovering from the LTAC with antibiotic and hyperbaric oxygen and wound was healing extremely well, and the patient was sent home from there. While he was at home, I spoke to the patient's mother multiple times that he was doing okay until yesterday. Since last night, he started having some shivering. This morning, he was okay, but around noon time, the patient called the patient's mother as well as the patient's brother on the phone saying that he was not feeling well. He was having shaking and his leg is increasing swelling, and also he started having more problem in the leg. He was not having any vomiting, but according to the family he was having some shaking and shivering. In the emergency room, the patient was noted to have tachycardia. He was also having some febrile illness and also a leg ulcer, but he was able to talk and convey information to the attending. Meanwhile, suddenly he developed significant chills, rigor, and there was suspected seizure activities. The patient was given 4 mg of Ativan following that, and he become obtund, become more lethargic, and hypopneic. While I examined the patient and I discussed in the ICU, decided to intubate after I discussed with the patient's mother also. The patient was intubated. He was having significant bleeding in the oral cavity because of the low platelet and hepatic liver cirrhosis. He was intubated with 6.5 size 2 with the GlideScope, post intubation chest x-ray some pulmonary edema noted. He was given antibiotic and code sepsis called in because of the elevated lactate and fever and tachycardia and also there was a concern about the alcoholic withdrawal and alcoholic seizure activities. The patient now intubated. He is coming to intensive care unit. I explained that information to the patient's family. PAST MEDICAL HISTORY: Diabetes, hypertension, chronic liver disease secondary to alcohol and liver cirrhosis, variceal bleeding in the past. PAST SURGICAL HISTORY: The patient had upper endoscopy in 08/2017. He also had a paracentesis in 01/2018. He was also noted to have internal hemorrhoid from colonoscopy, cholelithiasis also noted. No major surgical history. SOCIAL HISTORY: Used to be drinking alcohol; until recently, he used to drink almost to 1 pint every day vodka. He quit alcohol until today. According to the family, it is not clear whether he had any alcohol, but the serum alcohol level was slightly elevated today. REVIEW OF SYSTEMS: Currently, the patient is on ventilator, not responding, sedated. Vital signs otherwise stable. Tachycardia noted. The patient has increasing leg swelling. Abdomen swelling noted and also facial swelling. Family was concerned that he was also having frequent diarrheal episode. PHYSICAL EXAMINATION: GENERAL: Now, the patient is on ventilator with FiO2 of 40%. VITAL SIGNS: Respirations 11, saturation is 100%, pulse rate 130, blood pressure 128/88. CHEST: Good air entry bilaterally. Expiratory wheezing noted. HEART: Irregular heart sound. ABDOMEN: Abdominal tenderness negative, but anasarca and ascites noted. EXTREMITIES: Edema bilaterally noted. The patient has a right leg swelling. There are also significant ulcers noted in the anterior aspect, medial aspect, as well as lateral aspect of the right leg extending all the way to the posterior aspect. The base of this ulcer is very healthy, but some areas of unhealthy skin noted. He also has significant skin excoriations, and the psoriasis skin lesion significantly present throughout the body. LABORATORY DATA: WBC 21.8, hemoglobin 9, hematocrit 29.6, platelet is 56. INR is 1.4. The pre-intubation blood gas analyze is showing pH of 7, pO2 of 77, saturation is 97%. Chemistry: Sodium 140, potassium 4.1, anion bicarb 18, BUN and creatinine normal. Magnesium is 1.4. Troponin slight elevations noted. Alcohol 52 noted. Chest x-ray basilar infiltrate and also hilar infiltrate noted. The patient had a CAT scan of the abdomen and pelvis showing evidence of fluid filled mildly dilated mid and distal bowel loops, mural thickening in the colon, nonspecific colitis, liver cirrhosis, moderate abdominal and pelvic ascites, umbilical vein recanalization, severe decreased anasarca noted. Post-intubation chest x-ray noted, no pneumothorax. ASSESSMENT AND RECOMMENDATION: A 42-year-old male with a history of alcoholic liver disease, again suspected alcohol abuse, psoriatic skin lesion, diabetes, hypertension, mildly positive troponin now, admitted with altered mental status, possibly secondary to the Ativan injection, underlying postictal cannot be ruled out, and also possible alcoholic liver disease with withdrawal, underlying sepsis secondary to possible MRSA infection from the skin cannot be ruled out. The patient was recently on antibiotic with the hyperbaric oxygen, possible recurrent infection at this time. Generalized anasarca, ascites noted, diabetes poorly controlled, mild elevation of the troponin, possible non-ST elevation myocardial infarction, anemia, and also low thrombocytes, thrombocytopenia secondary to possible alcoholism. The patient's condition is very critical. I spoke to the patient's family, mom, as well as the patient's brother in detail. We will continue the aggressive supportive treatment, gastrointestinal evaluation, Infectious Disease evaluation, electrolyte supplementation, hepatic encephalopathy management, deep venous thrombosis and gastrointestinal prophylaxis, and we will continue to monitor the patient. Damaris Edwards MD Present on Admission - Present on Admission Any Indicators Present on Admission: No History of DVT/PE: No History of Uncontrolled Diabetes: No Urinary Catheter: No Decubitus Ulcer Present: No Past Patient History - Infectious Disease Hx of Infectious Diseases: None - Past Medical History & Family History Past Medical History?: Yes - Past Social History Smoking Status: Never Smoked - CARDIAC Hx Cardiac Disorders: Yes Hx Angina: No Hx Atrial Fibrillation: No Hx Cardia Arrhythmia: No Hx Circulatory Problems: No Hx Congestive Heart Failure: Yes Hx Heart Attack: No Hx Heart Murmur: No Hx Heart Transplant: No Hx Hypercholesterolemia: Yes Hx Hypertension: Yes Hx Hypotension: No Hx Internal Defibrillator: No Hx Mitral Valve Prolapse: No Hx Pacemaker: No Hx Peripheral Edema: Yes Hx Peripheral Vascular Disease: No - PULMONARY Hx Respiratory Disorders: Yes Hx Asthma: Yes Hx Bronchitis: No Hx Chronic Obstructive Pulmonary Disease (COPD): No Hx Emphysema: No Hx Lung Cancer: No Hx Pneumonia: Yes (3 years ago) Hx Pulmonary Edema: No Hx Pulmonary Embolism: No Hx Respiratory Aspiration: No Hx Respiratory Tract Infection: No Hx Sleep Apnea: No Hx Tuberculosis: No - NEUROLOGICAL Hx Neurological Disorder: Yes Hx Alzheimer's Disease: No HX Cerebrovascular Accident: No Hx Dementia: No Hx Dizziness: No Hx Meningitis: No Hx Migraine: No Hx Multiple Sclerosis: No Hx Paralysis: No Hx Parkinson's Disease: No Hx Seizures: Yes (etoh induced) Hx Syncope: No Hx Transient Ischemic Attacks (TIA): No Hx Vertigo: No - HEENT Hx HEENT Problems: Yes Hx Blind: No Hx Cataracts: No Hx Deafness: No Hx Difficulty Chewing: No Hx Epistaxis: No Hx Glaucoma: No Hx Macular Degeneration: No Hx Sinusitis: No Other/Comment: eye glasses for reading - RENAL Hx Chronic Kidney Disease: No Hx Dialysis: No Hx Kidney Stones: No Hx Neurogenic Bladder: No Hx Pyelonephritis: No Hx Renal (Kidney) Cancer: No Hx Renal Failure: No Other/Comment: Decrease urinary flow - ENDOCRINE/METABOLIC Hx Endocrine Disorders: Yes Hx Adrenal Cancer: No Hx Diabetes Insipidus: No Hx Diabetes Mellitus Type 1: No Hx Diabetes Mellitus Type 2: Yes Hx Hyperthyroidism: No Hx Hypothyroidism: No Hx Systemic Lupus Erythematosus: No - HEMATOLOGICAL/ONCOLOGICAL Hx Blood Disorders: Yes Hx AIDS: No Hx Anemia: Yes Hx Blood Transfusions: No Hx Blood Transfusion Reaction: No Hx Bruising: No Hx Cancer: No Hx Chemotherapy: No Hx Cirrhosis: Yes Hx Gum Bleeding: No Hx Hemophilia: No Hx Hepatitis A: No Hx Hepatitis B: No Hx Hepatitis C: No Hx Human Immunodeficiency Virus (HIV): No Hx Leukemia: No Hx Metastesis: No Hx Shingles: No Hx Sickle Cell Disease: No Hx Unexplained Bleeding: No Hx von Willebrand's Disease: No - INTEGUMENTARY Hx Dermatological Problems: Yes Hx Basil Cell: No Hx Jewell: No Hx Cellulitis: No Hx Eczema: No Hx Melanoma: No Hx Psoriasis: Yes Hx Squamous Cell: No Other/Comment: Psoriatic Arthritis, Right LE wounds, Perineal excoriation - MUSCULOSKELETAL/RHEUMATOLOGICAL Hx Musculoskeletal Disorders: Yes Hx Arthritis: Yes Hx Back Pain: No Hx Degenerative Joint Disease: No Hx Falls: Yes (Mother reports frequent falls due to leg swelling) Hx Fractures: No Hx Gout: No Hx Herniated Disk: No Hx Myasthenia Gravis: No Hx Osteoarthritis: No Hx Osteomyelitis: No Hx Osteoporosis: No Hx Rhabdomyolysis: No Hx Rheumatoid Arthritis: No Hx Spinal Stenosis: No Hx Unsteady Gait: Yes - GASTROINTESTINAL Hx Gastrointestinal Disorders: Yes Hx Bowel Surgery: No Hx Clostridium Difficile: No Hx Colitis: No Hx Colostomy: No Hx Constipation: No Hx Crohn's Disease: No Hx Diarrhea: Yes Hx Diverticulitis: No Hx Esophageal Varices: Yes Hx Fatty Liver Disease: No Hx Gall Bladder Disease: No Hx Gastritis: No Hx Gastroesophageal Reflux: No Hx Hemorrhoids: No Hx Ileostomy: No Hx Irritable Bowel: No Hx Liver Failure: No Hx Nausea: No Hx Pancreatitis: No HX Swallowing Problems: No Hx Ulcer: Yes Hx Vomiting: No Other/Comment: Liver disease, esophageal varices - GENITOURINARY/GYNECOLOGICAL Hx Genitourinary Disorders: No Hx Bladder Cancer: No Hx Bladder Stone: No Hx Hematuria: No Hx Incontinence: No Hx Prostate Cancer: No Hx Prostate Problems: No Hx Reproductive Disorders: No Hx Sexually Transmitted Disorders: No Hx Urinary Tract Infection: No - PSYCHIATRIC Hx Psychophysiologic Disorder: Yes Hx Anxiety: Yes Hx Bipolar Disorder: No Hx Depression: Yes Hx Emotional Abuse: No Hx Hallucinations: No Hx Panic Symptoms: No Hx Post Traumatic Stress Disorder: No Hx Psychosis: No Hx Physical Abuse: No Hx Schizophrenia: No Hx Sexual Abuse: No Hx Substance Use: No (ETOH) - SURGICAL HISTORY Hx Surgeries: Yes Hx Abdominal Aortic Aneurysm Repair: No Hx Amputation: No Hx Angiogram: No Hx Angioplasty: No Hx Appendectomy: No Hx Arteriovenous Shunt: No Hx Arthroscopy: No Hx Bile Duct Stent: No Hx Breast Biopsy: No Hx Cataract Extraction: No Hx Cardiac Catheterization: No Hx Carotid Endarterectomy: No Hx Section: No Hx Cholecystectomy: No Hx Coronary Artery Bypass Graft: No Hx Coronary Stent: No Hx Dilation and Curettage: No Hx Eye Surgery: No Hx Femoral-Popliteal Bypass Graft: No Hx Gastric Bypass Surgery: No Hx Herniorrhaphy: No Hx Hysterectomy: No Hx Joint Replacement: No Hx Kidney Transplant: No Hx Liver Transplant: No Hx Mastectomy: No Hx Musculoskeletal Surgery: No Hx Open Heart Surgery: No Hx Open Reduction Internal Fixation: No Hx Orthopedic Surgery: Yes (rt. knee swelling) Hx Parathyroidectomy: No Hx Penile Implant: No Hx Pulmonary Surgery: No Hx Splenectomy: No Hx Thyroidectomy: No Hx Tonsillectomy: No Hx Tubal Ligation: No Hx Valve Replacement: No Hx Vascular Surgery: No Hx Vascular Access Device: No Other/Comment: Endoscopy/colonscopy - ANESTHESIA Hx Anesthesia: Yes Hx Anesthesia Reactions: No Hx Malignant Hyperthermia: No Has any member of the family had a problem w/ anesthesia?: No Meds Allergies/Adverse Reactions: Allergies Allergy/AdvReac Type Severity Reaction Status Date / Time No Known Allergies Allergy Verified 04/10/18 14:55 Results - Vital Signs Recent Vital Signs: Last Vital Signs Temp 99.0 F 05/06/18 16:00 Pulse 91 H 05/06/18 19:20 Resp 26 H 05/06/18 19:20 BP 155/98 H 05/06/18 18:49 Pulse Ox 98 05/06/18 19:20 - Labs Result Diagrams: 05/06/18 06:26 05/06/18 06:22 Labs: Laboratory Results - last 24 hr 05/05/18 05/05/18 05/05/18 19:25 21:50 23:33 WBC RBC Hgb Hct MCV MCH MCHC RDW Plt Count MPV Neut % (Auto) Lymph % (Auto) [place] % (Auto) Eos % (Auto) Baso % (Auto) Neut # (Auto) Lymph # (Auto) [place] # (Auto) Eos # (Auto) Baso # (Auto) Neutrophils % (Manual) Band Neutrophils % Lymphocytes % (Manual) Monocytes % (Manual) Nucleated RBC % Differential Comment Platelet Estimate Polychromasia Hypochromasia (manual) Anisocytosis (manual) Microcytosis (manual) Ovalocytes PT INR APTT Puncture Site Rr Rba pCO2 77 H* 42 pO2 116 H 77 L HCO3 15.3 L 22.6 ABG pH 7.02 L* 7.34 L ABG Total CO2 22.3 24.0 ABG O2 Saturation 97.7 97.1 ABG Base Excess -12.3 L -2.9 L ABG Hemoglobin 8.5 L ABG Carboxyhemoglobin 2.7 H POC ABG HHb (Measured) 2.8 ABG Methemoglobin 1.1 Jeff Test Yes Na ABG Potassium 4.1 A-a O2 Difference 73.0 156.0 Respiratory Index 0.6 2.0 Hgb O2 Saturation 93.4 L Sodium 142.0 Chloride 109.0 H Glucose 114 H Lactate 5.1 H* Vent Mode Prvc Mechanical Rate 20 FiO2 40.0 40.0 Tidal Volume 500 PEEP 5 Crit Value Called To Ed rn Crit Value Called By Annemarie rt Crit Value Read Back Y Blood Gas Notified Time 1954 Potassium Carbon Dioxide Anion Gap BUN Creatinine Est GFR ( Amer) Est GFR (Non-Af Amer) POC Glucose (mg/dL) 127 H Random Glucose Lactic Acid Calcium Phosphorus Magnesium Total Bilirubin AST ALT Alkaline Phosphatase Ammonia Total Creatine Kinase CK-MB (Mass) Troponin I Total Protein Albumin Globulin Albumin/Globulin Ratio Arterial Blood Potassium 4.1 Urine Color Urine Clarity Urine pH Ur Specific Lester Urine Protein Urine Glucose (UA) Urine Ketones Urine Blood Urine Nitrate Urine Bilirubin Urine Urobilinogen Ur Leukocyte Esterase Urine WBC (Auto) Urine RBC (Auto) Ur Squamous Epith Cells Urine Yeast (Budding) Urine Opiates Screen Urine Methadone Screen Ur Barbiturates Screen Ur Phencyclidine Scrn Ur Amphetamines Screen U Benzodiazepines Scrn U Oth Cocaine Metabols U Cannabinoids Screen C. difficile Ag & Toxin Blood Type Antibody Screen 05/06/18 05/06/18 05/06/18 01:01 01:01 01:01 WBC RBC Hgb Hct MCV MCH MCHC RDW Plt Count MPV Neut % (Auto) Lymph % (Auto) [place] % (Auto) Eos % (Auto) Baso % (Auto) Neut # (Auto) Lymph # (Auto) [place] # (Auto) Eos # (Auto) Baso # (Auto) Neutrophils % (Manual) Band Neutrophils % Lymphocytes % (Manual) Monocytes % (Manual) Nucleated RBC % Differential Comment Platelet Estimate Polychromasia Hypochromasia (manual) Anisocytosis (manual) Microcytosis (manual) Ovalocytes PT INR APTT Puncture Site pCO2 pO2 HCO3 ABG pH ABG Total CO2 ABG O2 Saturation ABG Base Excess ABG Hemoglobin ABG Carboxyhemoglobin POC ABG HHb (Measured) ABG Methemoglobin Jeff Test ABG Potassium A-a O2 Difference Respiratory Index Hgb O2 Saturation Sodium 141 Chloride 108 H Glucose Lactate Vent Mode Mechanical Rate FiO2 Tidal Volume PEEP Crit Value Called To Crit Value Called By Crit Value Read Back Blood Gas Notified Time Potassium 4.2 Carbon Dioxide 24 Anion Gap 13 BUN 13 Creatinine 0.9 Est GFR ( Amer) > 60 Est GFR (Non-Af Amer) > 60 POC Glucose (mg/dL) Random Glucose 123 H Lactic Acid 2.5 H Calcium 7.4 L Phosphorus 4.3 Magnesium 1.4 L Total Bilirubin 1.3 AST 79 H ALT 38 Alkaline Phosphatase 92 Ammonia Total Creatine Kinase 499 H CK-MB (Mass) 6.48 H Troponin I 0.1380 H* Total Protein 6.3 Albumin 2.4 L Globulin 3.9 Albumin/Globulin Ratio 0.6 L Arterial Blood Potassium Urine Color Urine Clarity Urine pH Ur Specific Lester Urine Protein Urine Glucose (UA) Urine Ketones Urine Blood Urine Nitrate Urine Bilirubin Urine Urobilinogen Ur Leukocyte Esterase Urine WBC (Auto) Urine RBC (Auto) Ur Squamous Epith Cells Urine Yeast (Budding) Urine Opiates Screen Urine Methadone Screen Ur Barbiturates Screen Ur Phencyclidine Scrn Ur Amphetamines Screen U Benzodiazepines Scrn U Oth Cocaine Metabols U Cannabinoids Screen C. difficile Ag & Toxin Blood Type Antibody Screen 05/06/18 05/06/18 05/06/18 03:25 03:26 03:26 WBC RBC Hgb Hct MCV MCH MCHC RDW Plt Count MPV Neut % (Auto) Lymph % (Auto) [place] % (Auto) Eos % (Auto) Baso % (Auto) Neut # (Auto) Lymph # (Auto) [place] # (Auto) Eos # (Auto) Baso # (Auto) Neutrophils % (Manual) Band Neutrophils % Lymphocytes % (Manual) Monocytes % (Manual) Nucleated RBC % Differential Comment Platelet Estimate Polychromasia Hypochromasia (manual) Anisocytosis (manual) Microcytosis (manual) Ovalocytes PT INR APTT Puncture Site pCO2 pO2 HCO3 ABG pH ABG Total CO2 ABG O2 Saturation ABG Base Excess ABG Hemoglobin ABG Carboxyhemoglobin POC ABG HHb (Measured) ABG Methemoglobin Jeff Test ABG Potassium A-a O2 Difference Respiratory Index Hgb O2 Saturation Sodium Chloride Glucose Lactate Vent Mode Mechanical Rate FiO2 Tidal Volume PEEP Crit Value Called To Crit Value Called By Crit Value Read Back Blood Gas Notified Time Potassium Carbon Dioxide Anion Gap BUN Creatinine Est GFR ( Amer) Est GFR (Non-Af Amer) POC Glucose (mg/dL) Random Glucose Lactic Acid Calcium Phosphorus Magnesium Total Bilirubin AST ALT Alkaline Phosphatase Ammonia Total Creatine Kinase CK-MB (Mass) Troponin I Total Protein Albumin Globulin Albumin/Globulin Ratio Arterial Blood Potassium Urine Color Tammy Urine Clarity Clear Urine pH 5.0 Ur Specific Lester 1.025 Urine Protein 3+ H Urine Glucose (UA) Normal Urine Ketones Negative Urine Blood 3+ H Urine Nitrate Negative Urine Bilirubin Negative Urine Urobilinogen 2.0 Ur Leukocyte Esterase Neg Urine WBC (Auto) 9 H Urine RBC (Auto) 707 H Ur Squamous Epith Cells 1 Urine Yeast (Budding) Few H Urine Opiates Screen Negative Urine Methadone Screen Negative Ur Barbiturates Screen Negative Ur Phencyclidine Scrn Negative Ur Amphetamines Screen Negative U Benzodiazepines Scrn Negative U Oth Cocaine Metabols Negative U Cannabinoids Screen Negative C. difficile Ag & Toxin Negative Blood Type Antibody Screen 05/06/18 05/06/18 05/06/18 03:28 04:20 05:48 WBC 14.6 H RBC 3.51 L Hgb 7.7 L Hct 25.6 L MCV 72.9 L MCH 22.0 L MCHC 30.1 L RDW 22.4 H Plt Count 36 L D MPV 8.4 Neut % (Auto) 90.3 H Lymph % (Auto) 5.6 L [place] % (Auto) 3.5 Eos % (Auto) 0.0 Baso % (Auto) 0.6 Neut # (Auto) 13.2 H Lymph # (Auto) 0.8 L [place] # (Auto) 0.5 Eos # (Auto) 0.0 Baso # (Auto) 0.1 Neutrophils % (Manual) 94 H Band Neutrophils % 1 Lymphocytes % (Manual) 4 L Monocytes % (Manual) 1 Nucleated RBC % 1 H Differential Comment Platelet Estimate Decreased L Polychromasia Slight Hypochromasia (manual) Moderate Anisocytosis (manual) Moderate Microcytosis (manual) Slight Ovalocytes Slight PT INR APTT Puncture Site Rr pCO2 31 L pO2 121 H HCO3 24.3 ABG pH 7.46 H ABG Total CO2 23.0 ABG O2 Saturation 99.4 H ABG Base Excess -0.9 ABG Hemoglobin ABG Carboxyhemoglobin POC ABG HHb (Measured) ABG Methemoglobin Jeff Test Pos ABG Potassium 3.6 A-a O2 Difference 125.0 Respiratory Index 1.0 Hgb O2 Saturation Sodium 143.0 Chloride 117.0 H Glucose 123 H Lactate 1.3 Vent Mode Prvc Mechanical Rate 20 FiO2 40.0 Tidal Volume 500 PEEP 5 Crit Value Called To Crit Value Called By Crit Value Read Back Blood Gas Notified Time Potassium Carbon Dioxide Anion Gap BUN Creatinine Est GFR ( Amer) Est GFR (Non-Af Amer) POC Glucose (mg/dL) 108 Random Glucose Lactic Acid Calcium Phosphorus Magnesium Total Bilirubin AST ALT Alkaline Phosphatase Ammonia Total Creatine Kinase CK-MB (Mass) Troponin I Total Protein Albumin Globulin Albumin/Globulin Ratio Arterial Blood Potassium 3.6 Urine Color Urine Clarity Urine pH Ur Specific [place]ester Urine Protein Urine Glucose (UA) Urine Ketones Urine Blood Urine Nitrate Urine Bilirubin Urine Urobilinogen Ur Leukocyte Esterase Urine WBC (Auto) Urine RBC (Auto) Ur Squamous Epith Cells Urine Yeast (Budding) Urine Opiates Screen Urine Methadone Screen Ur Barbiturates Screen Ur Phencyclidine Scrn Ur Amphetamines Screen U Benzodiazepines Scrn U Oth Cocaine Metabols U Cannabinoids Screen C. difficile Ag & Toxin Blood Type Antibody Screen 05/06/18 05/06/18 05/06/18 06:22 06:22 06:22 WBC RBC Hgb Hct MCV MCH MCHC RDW Plt Count MPV Neut % (Auto) Lymph % (Auto) [place] % (Auto) Eos % (Auto) Baso % (Auto) Neut # (Auto) Lymph # (Auto) [place] # (Auto) Eos # (Auto) Baso # (Auto) Neutrophils % (Manual) Band Neutrophils % Lymphocytes % (Manual) Monocytes % (Manual) Nucleated RBC % Differential Comment Platelet Estimate Polychromasia Hypochromasia (manual) Anisocytosis (manual) Microcytosis (manual) Ovalocytes PT 19.8 H INR 1.8 APTT 38 H Puncture Site pCO2 pO2 HCO3 ABG pH ABG Total CO2 ABG O2 Saturation ABG Base Excess ABG Hemoglobin ABG Carboxyhemoglobin POC ABG HHb (Measured) ABG Methemoglobin Jeff Test ABG Potassium A-a O2 Difference Respiratory Index Hgb O2 Saturation Sodium 138 Chloride 110 H Glucose Lactate Vent Mode Mechanical Rate FiO2 Tidal Volume PEEP Crit Value Called To Crit Value Called By Crit Value Read Back Blood Gas Notified Time Potassium 4.0 Carbon Dioxide 24 Anion Gap 9 L BUN 15 Creatinine 0.9 Est GFR ( Amer) > 60 Est GFR (Non-Af Amer) > 60 POC Glucose (mg/dL) Random Glucose 125 H Lactic Acid Calcium 7.0 L Phosphorus 4.0 Magnesium 1.8 Total Bilirubin 1.1 AST 58 ALT 31 Alkaline Phosphatase 84 Ammonia 65 H D Total Creatine Kinase 292 H CK-MB (Mass) 3.60 H Troponin I 0.1260 H* Total Protein 5.3 L Albumin 2.0 L Globulin 3.4 Albumin/Globulin Ratio 0.6 L Arterial Blood Potassium Urine Color Urine Clarity Urine pH Ur Specific [place] Urine Protein Urine Glucose (UA) Urine Ketones Urine Blood Urine Nitrate Urine Bilirubin Urine Urobilinogen Ur Leukocyte Esterase Urine WBC (Auto) Urine RBC (Auto) Ur Squamous Epith Cells Urine Yeast (Budding) Urine Opiates Screen Urine Methadone Screen Ur Barbiturates Screen Ur Phencyclidine Scrn Ur Amphetamines Screen U Benzodiazepines Scrn U Oth Cocaine Metabols U Cannabinoids Screen C. difficile Ag & Toxin Blood Type Antibody Screen 05/06/18 05/06/18 05/06/18 06:22 06:26 06:26 WBC 11.3 H RBC 3.20 L Hgb 7.2 L Hct 23.1 L MCV 72.0 L MCH 22.5 L MCHC 31.2 L RDW 22.8 H Plt Count 32 L MPV 8.3 Neut % (Auto) 86.4 H Lymph % (Auto) 9.0 L [place] % (Auto) 4.4 Eos % (Auto) 0.1 Baso % (Auto) 0.1 Neut # (Auto) 9.7 H Lymph # (Auto) 1.0 [place] # (Auto) 0.5 Eos # (Auto) 0.0 Baso # (Auto) 0.0 Neutrophils % (Manual) Band Neutrophils % Lymphocytes % (Manual) Monocytes % (Manual) Nucleated RBC % Differential Comment Platelet Estimate Polychromasia Hypochromasia (manual) Anisocytosis (manual) Microcytosis (manual) Ovalocytes PT INR APTT Puncture Site pCO2 pO2 HCO3 ABG pH ABG Total CO2 ABG O2 Saturation ABG Base Excess ABG Hemoglobin ABG Carboxyhemoglobin POC ABG HHb (Measured) ABG Methemoglobin Jeff Test ABG Potassium A-a O2 Difference Respiratory Index Hgb O2 Saturation Sodium Chloride Glucose Lactate Vent Mode Mechanical Rate FiO2 Tidal Volume PEEP Crit Value Called To Crit Value Called By Crit Value Read Back Blood Gas Notified Time Potassium Carbon Dioxide Anion Gap BUN Creatinine Est GFR ( Amer) Est GFR (Non-Af Amer) POC Glucose (mg/dL) Random Glucose Lactic Acid 1.3 Calcium Phosphorus Magnesium Total Bilirubin AST ALT Alkaline Phosphatase Ammonia Total Creatine Kinase CK-MB (Mass) Troponin I Total Protein Albumin Globulin Albumin/Globulin Ratio Arterial Blood Potassium Urine Color Urine Clarity Urine pH Ur Specific [place]ester Urine Protein Urine Glucose (UA) Urine Ketones Urine Blood Urine Nitrate Urine Bilirubin Urine Urobilinogen Ur Leukocyte Esterase Urine WBC (Auto) Urine RBC (Auto) Ur Squamous Epith Cells Urine Yeast (Budding) Urine Opiates Screen Urine Methadone Screen Ur Barbiturates Screen Ur Phencyclidine Scrn Ur Amphetamines Screen U Benzodiazepines Scrn U Oth Cocaine Metabols U Cannabinoids Screen C. difficile Ag & Toxin Blood Type AB POSITIVE Antibody Screen Negative 05/06/18 05/06/18 05/06/18 09:12 11:30 18:18 WBC RBC Hgb Hct MCV MCH MCHC RDW Plt Count MPV Neut % (Auto) Lymph % (Auto) [place] % (Auto) Eos % (Auto) Baso % (Auto) Neut # (Auto) Lymph # (Auto) [place] # (Auto) Eos # (Auto) Baso # (Auto) Neutrophils % (Manual) Band Neutrophils % Lymphocytes % (Manual) Monocytes % (Manual) Nucleated RBC % Differential Comment Platelet Estimate Polychromasia Hypochromasia (manual) Anisocytosis (manual) Microcytosis (manual) Ovalocytes PT INR APTT Puncture Site pCO2 pO2 HCO3 ABG pH ABG Total CO2 ABG O2 Saturation ABG Base Excess ABG Hemoglobin ABG Carboxyhemoglobin POC ABG HHb (Measured) ABG Methemoglobin Jeff Test ABG Potassium A-a O2 Difference Respiratory Index Hgb O2 Saturation Sodium Chloride Glucose Lactate Vent Mode Mechanical Rate FiO2 Tidal Volume PEEP Crit Value Called To Crit Value Called By Crit Value Read Back Blood Gas Notified Time Potassium Carbon Dioxide Anion Gap BUN Creatinine Est GFR ( Amer) Est GFR (Non-Af Amer) POC Glucose (mg/dL) 115 H 155 H Random Glucose Lactic Acid 1.3 Calcium Phosphorus Magnesium Total Bilirubin AST ALT Alkaline Phosphatase Ammonia Total Creatine Kinase CK-MB (Mass) Troponin I Total Protein Albumin Globulin Albumin/Globulin Ratio Arterial Blood Potassium Urine Color Urine Clarity Urine pH Ur Specific Lester Urine Protein Urine Glucose (UA) Urine Ketones Urine Blood Urine Nitrate Urine Bilirubin Urine Urobilinogen Ur Leukocyte Esterase Urine WBC (Auto) Urine RBC (Auto) Ur Squamous Epith Cells Urine Yeast (Budding) Urine Opiates Screen Urine Methadone Screen Ur Barbiturates Screen Ur Phencyclidine Scrn Ur Amphetamines Screen U Benzodiazepines Scrn U Oth Cocaine Metabols U Cannabinoids Screen C. difficile Ag & Toxin Blood Type Antibody Screen
[2018-05-06] MEDS: MethylPREDNISolone 40 mg Vial IVP SCH (21:12)
--- NOTE | 2018-05-06 22:00 | CP.PCM.CON ---
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 There was also some reports of URI symptoms with NSAID and APAP use. In the ED, he had increased work of breathing and seizure activity described as generalized convulsions and loss of consciousness. He was given benzos with resolution and later intubated. GI consulted for liver cirrhosis. Unable to obtain ROS due to clinical condition MHx: See Above Surgical History- right leg hematoma drainage 10/2017 Meds: Reviewed in MAR FamHx: father- heart transplant and on hemodialysis SocHx: Supposed was sober > 6 months but EtOH lvl 52 and h/o daily vodka use; neg tob or illicits All: NKDA EGD 08/15/17: Gastritis (Hp-). EGD 2015 with Gr1 E CSPY 10/2015: Int Hemorrhoids Physical Exam - Constitutional Appears: Other (Sedated, intubated on vent) - Head Exam Head Exam: ATRAUMATIC, NORMAL INSPECTION - ENT Exam ENT Exam: Mucous Membranes Dry. absent: Mucous Membranes Moist - Respiratory Exam Respiratory Exam: NORMAL BREATHING PATTERN Additional comments: CTA anteriorly - Cardiovascular Exam Cardiovascular Exam: Tachycardia, RRR - GI/Abdominal Exam GI & Abdominal Exam: Distended, Soft. absent: Bruit, Diminished Bowel Sounds, F irm, Guarding, Hernia, Normal Bowel Sounds, Organomegaly, Pulsatile Mass, Rigid, Tenderness Additional comments: Exam limited by obesity, anasarca diffusely - Rectal Exam Rectal Exam: Deferred - Extremities Exam Extremities exam: Positive for: pedal edema. Negative for: normal inspection Additional comments: diffuse anasarca and RLE wrapped in dressing - Neurological Exam Neurological exam: Altered Additional comments: sedated - Skin Additional comments: Past Patient History - Infectious Disease Hx of Infectious Diseases: None - Past Medical History & Family History Past Medical History?: Yes - Past Social History Smoking Status: Never Smoked - CARDIAC Hx Cardiac Disorders: Yes Hx Angina: No Hx Atrial Fibrillation: No Hx Cardia Arrhythmia: No Hx Circulatory Problems: No Hx Congestive Heart Failure: Yes Hx Heart Attack: No Hx Heart Murmur: No Hx Heart Transplant: No Hx Hypercholesterolemia: Yes Hx Hypertension: Yes Hx Hypotension: No Hx Internal Defibrillator: No Hx Mitral Valve Prolapse: No Hx Pacemaker: No Hx Peripheral Edema: Yes Hx Peripheral Vascular Disease: No - PULMONARY Hx Respiratory Disorders: Yes Hx Asthma: Yes Hx Bronchitis: No Hx Chronic Obstructive Pulmonary Disease (COPD): No Hx Emphysema: No Hx Lung Cancer: No Hx Pneumonia: Yes (3 years ago) Hx Pulmonary Edema: No Hx Pulmonary Embolism: No Hx Respiratory Aspiration: No Hx Respiratory Tract Infection: No Hx Sleep Apnea: No Hx Tuberculosis: No - NEUROLOGICAL Hx Neurological Disorder: Yes Hx Alzheimer's Disease: No HX Cerebrovascular Accident: No Hx Dementia: No Hx Dizziness: No Hx Meningitis: No Hx Migraine: No Hx Multiple Sclerosis: No Hx Paralysis: No Hx Parkinson's Disease: No Hx Seizures: Yes (etoh induced) Hx Syncope: No Hx Transient Ischemic Attacks (TIA): No Hx Vertigo: No - HEENT Hx HEENT Problems: Yes Hx Blind: No Hx Cataracts: No Hx Deafness: No Hx Difficulty Chewing: No Hx Epistaxis: No Hx Glaucoma: No Hx Macular Degeneration: No Hx Sinusitis: No Other/Comment: eye glasses for reading - RENAL Hx Chronic Kidney Disease: No Hx Dialysis: No Hx Kidney Stones: No Hx Neurogenic Bladder: No Hx Pyelonephritis: No Hx Renal (Kidney) Cancer: No Hx Renal Failure: No Other/Comment: Decrease urinary flow - ENDOCRINE/METABOLIC Hx Endocrine Disorders: Yes Hx Adrenal Cancer: No Hx Diabetes Insipidus: No Hx Diabetes Mellitus Type 1: No Hx Diabetes Mellitus Type 2: Yes Hx Hyperthyroidism: No Hx Hypothyroidism: No Hx Systemic Lupus Erythematosus: No - HEMATOLOGICAL/ONCOLOGICAL Hx Blood Disorders: Yes Hx AIDS: No Hx Anemia: Yes Hx Blood Transfusions: No Hx Blood Transfusion Reaction: No Hx Bruising: No Hx Cancer: No Hx Chemotherapy: No Hx Cirrhosis: Yes Hx Gum Bleeding: No Hx Hemophilia: No Hx Hepatitis A: No Hx Hepatitis B: No Hx Hepatitis C: No Hx Human Immunodeficiency Virus (HIV): No Hx Leukemia: No Hx Metastesis: No Hx Shingles: No Hx Sickle Cell Disease: No Hx Unexplained Bleeding: No Hx von Willebrand's Disease: No - INTEGUMENTARY Hx Dermatological Problems: Yes Hx Basil Cell: No Hx Jewell: No Hx Cellulitis: No Hx Eczema: No Hx Melanoma: No Hx Psoriasis: Yes Hx Squamous Cell: No Other/Comment: Psoriatic Arthritis, Right LE wounds, Perineal excoriation - MUSCULOSKELETAL/RHEUMATOLOGICAL Hx Musculoskeletal Disorders: Yes Hx Arthritis: Yes Hx Back Pain: No Hx Degenerative Joint Disease: No Hx Falls: Yes (Mother reports frequent falls due to leg swelling) Hx Fractures: No Hx Gout: No Hx Herniated Disk: No Hx Myasthenia Gravis: No Hx Osteoarthritis: No Hx Osteomyelitis: No Hx Osteoporosis: No Hx Rhabdomyolysis: No Hx Rheumatoid Arthritis: No Hx Spinal Stenosis: No Hx Unsteady Gait: Yes - GASTROINTESTINAL Hx Gastrointestinal Disorders: Yes Hx Bowel Surgery: No Hx Clostridium Difficile: No Hx Colitis: No Hx Colostomy: No Hx Constipation: No Hx Crohn's Disease: No Hx Diarrhea: Yes Hx Diverticulitis: No Hx Esophageal Varices: Yes Hx Fatty Liver Disease: No Hx Gall Bladder Disease: No Hx Gastritis: No Hx Gastroesophageal Reflux: No Hx Hemorrhoids: No Hx Ileostomy: No Hx Irritable Bowel: No Hx Liver Failure: No Hx Nausea: No Hx Pancreatitis: No HX Swallowing Problems: No Hx Ulcer: Yes Hx Vomiting: No Other/Comment: Liver disease, esophageal varices - GENITOURINARY/GYNECOLOGICAL Hx Genitourinary Disorders: No Hx Bladder Cancer: No Hx Bladder Stone: No Hx Hematuria: No Hx Incontinence: No Hx Prostate Cancer: No Hx Prostate Problems: No Hx Reproductive Disorders: No Hx Sexually Transmitted Disorders: No Hx Urinary Tract Infection: No - PSYCHIATRIC Hx Psychophysiologic Disorder: Yes Hx Anxiety: Yes Hx Bipolar Disorder: No Hx Depression: Yes Hx Emotional Abuse: No Hx Hallucinations: No Hx Panic Symptoms: No Hx Post Traumatic Stress Disorder: No Hx Psychosis: No Hx Physical Abuse: No Hx Schizophrenia: No Hx Sexual Abuse: No Hx Substance Use: No (ETOH) - SURGICAL HISTORY Hx Surgeries: Yes Hx Abdominal Aortic Aneurysm Repair: No Hx Amputation: No Hx Angiogram: No Hx Angioplasty: No Hx Appendectomy: No Hx Arteriovenous Shunt: No Hx Arthroscopy: No Hx Bile Duct Stent: No Hx Breast Biopsy: No Hx Cataract Extraction: No Hx Cardiac Catheterization: No Hx Carotid Endarterectomy: No Hx Section: No Hx Cholecystectomy: No Hx Coronary Artery Bypass Graft: No Hx Coronary Stent: No Hx Dilation and Curettage: No Hx Eye Surgery: No Hx Femoral-Popliteal Bypass Graft: No Hx Gastric Bypass Surgery: No Hx Herniorrhaphy: No Hx Hysterectomy: No Hx Joint Replacement: No Hx Kidney Transplant: No Hx Liver Transplant: No Hx Mastectomy: No Hx Musculoskeletal Surgery: No Hx Open Heart Surgery: No Hx Open Reduction Internal Fixation: No Hx Orthopedic Surgery: Yes (rt. knee swelling) Hx Parathyroidectomy: No Hx Penile Implant: No Hx Pulmonary Surgery: No Hx Splenectomy: No Hx Thyroidectomy: No Hx Tonsillectomy: No Hx Tubal Ligation: No Hx Valve Replacement: No Hx Vascular Surgery: No Hx Vascular Access Device: No Other/Comment: Endoscopy/colonscopy - ANESTHESIA Hx Anesthesia: Yes Hx Anesthesia Reactions: No Hx Malignant Hyperthermia: No Has any member of the family had a problem w/ anesthesia?: No Meds Allergies/Adverse Reactions: Allergies Allergy/AdvReac Type Severity Reaction Status Date / Time No Known Allergies Allergy Verified 04/10/18 14:55 - Medications Medications: Current Medications Albuterol/Ipratropium (Duoneb 3 Mg/0.5 Mg (3 Ml) Ud) 3 ml INH RQ6 FLY Last Admin: 05/06/18 19:56 Dose: 3 ml Ascorbic Acid (Vitamin C 500 Mg Tab) 500 mg PO TID FLY Furosemide (Lasix) 20 mg PO Q12 FLY Gabapentin (Neurontin) 100 mg PO TID FLY Piperacillin Sod/Tazobactam (Sod 3.375 gm/ Sodium Chloride) 100 mls @ 200 mls/hr IVPB Q6H FLY; Protocol Last Admin: 05/06/18 20:43 Dose: 200 mls/hr Vancomycin/Sodium Chloride (Vancomycin 1 Gm/Ns 200 Ml) 1 gm in 200 mls @ 133 mls/hr IVPB Q12H FLY; Protocol Stop: 05/10/18 20:31 Last Admin: 05/06/18 20:45 Dose: 133 mls/hr Lactulose (Enulose) 20 gm PO Q12 FLY Last Admin: 05/06/18 09:10 Dose: 20 gm Magnesium Oxide (Mag-Ox) 400 mg PO DAILY FLY Methylprednisolone (Solu-Medrol) 40 mg IVP Q12 FLY Stop: 05/08/18 22:01 Last Admin: 05/06/18 21:12 Dose: 40 mg Multivitamins (Hexavitamin) 1 tab PO DAILY FLY Last Admin: 05/06/18 18:16 Dose: 1 tab Multivitamins/Vitamin C (Multi-Delyn Liquid) 5 ml PO DAILY [facility] Pantoprazole Sodium (Protonix Inj) 40 mg IVP Q12 FLY Last Admin: 05/06/18 21:10 Dose: 40 mg Petrolatum (Desitin Original) 1 gm TOP DAILY [facility] Phytonadione (Vitamin K Tab) 10 mg PO DAILY FLY Last Admin: 05/06/18 11:30 Dose: 10 mg Spironolactone (Aldactone) 25 mg PO BID FLY Thiamine HCl (Vitamin B1 Inj) 200 mg IV Q8H FLY Last Admin: 05/06/18 17:30 Dose: 200 mg Zinc Sulfate (Zinc Sulfate 220 Mg Cap) 220 mg PO DAILY [facility] Results - Vital Signs Recent Vital Signs: Last Vital Signs Temp 97 F L 05/06/18 20:00 Pulse 96 H 05/06/18 21:00 Resp 28 H 05/06/18 21:00 BP 132/74 05/06/18 20:49 Pulse Ox 95 05/06/18 21:00 - Labs Result Diagrams: 05/06/18 06:26 05/06/18 06:22 Labs: Laboratory Results - last 24 hr 05/05/18 05/06/18 05/06/18 23:33 01:01 01:01 WBC RBC Hgb Hct MCV MCH MCHC RDW Plt Count MPV Neut % (Auto) Lymph % (Auto) [place] % (Auto) Eos % (Auto) Baso % (Auto) Neut # (Auto) Lymph # (Auto) [place] # (Auto) Eos # (Auto) Baso # (Auto) Neutrophils % (Manual) Band Neutrophils % Lymphocytes % (Manual) Monocytes % (Manual) Nucleated RBC % Differential Comment Platelet Estimate Polychromasia Hypochromasia (manual) Anisocytosis (manual) Microcytosis (manual) Ovalocytes PT INR APTT Puncture Site pCO2 pO2 HCO3 ABG pH ABG Total CO2 ABG O2 Saturation ABG Base Excess Jeff Test ABG Potassium A-a O2 Difference Respiratory Index Glucose Lactate Vent Mode Mechanical Rate FiO2 Tidal Volume PEEP Sodium 141 Potassium 4.2 Chloride 108 H Carbon Dioxide 24 Anion Gap 13 BUN 13 Creatinine 0.9 Est GFR ( Amer) > 60 Est GFR (Non-Af Amer) > 60 POC Glucose (mg/dL) 127 H Random Glucose 123 H Lactic Acid 2.5 H Calcium 7.4 L Phosphorus 4.3 Magnesium 1.4 L Total Bilirubin 1.3 AST 79 H ALT 38 Alkaline Phosphatase 92 Ammonia Total Creatine Kinase CK-MB (Mass) Troponin I Total Protein 6.3 Albumin 2.4 L Globulin 3.9 Albumin/Globulin Ratio 0.6 L Arterial Blood Potassium Urine Color Urine Clarity Urine pH Ur Specific [place] Urine Protein Urine Glucose (UA) Urine Ketones Urine Blood Urine Nitrate Urine Bilirubin Urine Urobilinogen Ur Leukocyte Esterase Urine WBC (Auto) Urine RBC (Auto) Ur Squamous Epith Cells Urine Yeast (Budding) Urine Opiates Screen Urine Methadone Screen Ur Barbiturates Screen Ur Phencyclidine Scrn Ur Amphetamines Screen U Benzodiazepines Scrn U Oth Cocaine Metabols U Cannabinoids Screen C. difficile Ag & Toxin Blood Type Antibody Screen 05/06/18 05/06/18 05/06/18 01:01 03:25 03:26 WBC RBC Hgb Hct MCV MCH MCHC RDW Plt Count MPV Neut % (Auto) Lymph % (Auto) [place] % (Auto) Eos % (Auto) Baso % (Auto) Neut # (Auto) Lymph # (Auto) [place] # (Auto) Eos # (Auto) Baso # (Auto) Neutrophils % (Manual) Band Neutrophils % Lymphocytes % (Manual) Monocytes % (Manual) Nucleated RBC % Differential Comment Platelet Estimate Polychromasia Hypochromasia (manual) Anisocytosis (manual) Microcytosis (manual) Ovalocytes PT INR APTT Puncture Site pCO2 pO2 HCO3 ABG pH ABG Total CO2 ABG O2 Saturation ABG Base Excess Jeff Test ABG Potassium A-a O2 Difference Respiratory Index Glucose Lactate Vent Mode Mechanical Rate FiO2 Tidal Volume PEEP Sodium Potassium Chloride Carbon Dioxide Anion Gap BUN Creatinine Est GFR ( Amer) Est GFR (Non-Af Amer) POC Glucose (mg/dL) Random Glucose Lactic Acid Calcium Phosphorus Magnesium Total Bilirubin AST ALT Alkaline Phosphatase Ammonia Total Creatine Kinase 499 H CK-MB (Mass) 6.48 H Troponin I 0.1380 H* Total Protein Albumin Globulin Albumin/Globulin Ratio Arterial Blood Potassium Urine Color Tammy Urine Clarity Clear Urine pH 5.0 Ur Specific [place] 1.025 Urine Protein 3+ H Urine Glucose (UA) Normal Urine Ketones Negative Urine Blood 3+ H Urine Nitrate Negative Urine Bilirubin Negative Urine Urobilinogen 2.0 Ur Leukocyte Esterase Neg Urine WBC (Auto) 9 H Urine RBC (Auto) 707 H Ur Squamous Epith Cells 1 Urine Yeast (Budding) Few H Urine Opiates Screen Urine Methadone Screen Ur Barbiturates Screen Ur Phencyclidine Scrn Ur Amphetamines Screen U Benzodiazepines Scrn U Oth Cocaine Metabols U Cannabinoids Screen C. difficile Ag & Toxin Negative Blood Type Antibody Screen 05/06/18 05/06/18 05/06/18 03:26 03:28 04:20 WBC 14.6 H RBC 3.51 L Hgb 7.7 L Hct 25.6 L MCV 72.9 L MCH 22.0 L MCHC 30.1 L RDW 22.4 H Plt Count 36 L D MPV 8.4 Neut % (Auto) 90.3 H Lymph % (Auto) 5.6 L [place] % (Auto) 3.5 Eos % (Auto) 0.0 Baso % (Auto) 0.6 Neut # (Auto) 13.2 H Lymph # (Auto) 0.8 L [place] # (Auto) 0.5 Eos # (Auto) 0.0 Baso # (Auto) 0.1 Neutrophils % (Manual) 94 H Band Neutrophils % 1 Lymphocytes % (Manual) 4 L Monocytes % (Manual) 1 Nucleated RBC % 1 H Differential Comment Platelet Estimate Decreased L Polychromasia Slight Hypochromasia (manual) Moderate Anisocytosis (manual) Moderate Microcytosis (manual) Slight Ovalocytes Slight PT INR APTT Puncture Site Rr pCO2 31 L pO2 121 H HCO3 24.3 ABG pH 7.46 H ABG Total CO2 23.0 ABG O2 Saturation 99.4 H ABG Base Excess -0.9 Jeff Test Pos ABG Potassium 3.6 A-a O2 Difference 125.0 Respiratory Index 1.0 Glucose 123 H Lactate 1.3 Vent Mode Prvc Mechanical Rate 20 FiO2 40.0 Tidal Volume 500 PEEP 5 Sodium 143.0 Potassium Chloride 117.0 H Carbon Dioxide Anion Gap BUN Creatinine Est GFR ( Amer) Est GFR (Non-Af Amer) POC Glucose (mg/dL) Random Glucose Lactic Acid Calcium Phosphorus Magnesium Total Bilirubin AST ALT Alkaline Phosphatase Ammonia Total Creatine Kinase CK-MB (Mass) Troponin I Total Protein Albumin Globulin Albumin/Globulin Ratio Arterial Blood Potassium 3.6 Urine Color Urine Clarity Urine pH Ur Specific [place] Urine Protein Urine Glucose (UA) Urine Ketones Urine Blood Urine Nitrate Urine Bilirubin Urine Urobilinogen Ur Leukocyte Esterase Urine WBC (Auto) Urine RBC (Auto) Ur Squamous Epith Cells Urine Yeast (Budding) Urine Opiates Screen Negative Urine Methadone Screen Negative Ur Barbiturates Screen Negative Ur Phencyclidine Scrn Negative Ur Amphetamines Screen Negative U Benzodiazepines Scrn Negative U Oth Cocaine Metabols Negative U Cannabinoids Screen Negative C. difficile Ag & Toxin Blood Type Antibody Screen 05/06/18 05/06/18 05/06/18 05:48 06:22 06:22 WBC RBC Hgb Hct MCV MCH MCHC RDW Plt Count MPV Neut % (Auto) Lymph % (Auto) [place] % (Auto) Eos % (Auto) Baso % (Auto) Neut # (Auto) Lymph # (Auto) [place] # (Auto) Eos # (Auto) Baso # (Auto) Neutrophils % (Manual) Band Neutrophils % Lymphocytes % (Manual) Monocytes % (Manual) Nucleated RBC % Differential Comment Platelet Estimate Polychromasia Hypochromasia (manual) Anisocytosis (manual) Microcytosis (manual) Ovalocytes PT 19.8 H INR 1.8 APTT 38 H Puncture Site pCO2 pO2 HCO3 ABG pH ABG Total CO2 ABG O2 Saturation ABG Base Excess Jeff Test ABG Potassium A-a O2 Difference Respiratory Index Glucose Lactate Vent Mode Mechanical Rate FiO2 Tidal Volume PEEP Sodium 138 Potassium 4.0 Chloride 110 H Carbon Dioxide 24 Anion Gap 9 L BUN 15 Creatinine 0.9 Est GFR ( Amer) > 60 Est GFR (Non-Af Amer) > 60 POC Glucose (mg/dL) 108 Random Glucose 125 H Lactic Acid Calcium 7.0 L Phosphorus 4.0 Magnesium 1.8 Total Bilirubin 1.1 AST 58 ALT 31 Alkaline Phosphatase 84 Ammonia Total Creatine Kinase 292 H CK-MB (Mass) 3.60 H Troponin I 0.1260 H* Total Protein 5.3 L Albumin 2.0 L Globulin 3.4 Albumin/Globulin Ratio 0.6 L Arterial Blood Potassium Urine Color Urine Clarity Urine pH Ur Specific [place] Urine Protein Urine Glucose (UA) Urine Ketones Urine Blood Urine Nitrate Urine Bilirubin Urine Urobilinogen Ur Leukocyte Esterase Urine WBC (Auto) Urine RBC (Auto) Ur Squamous Epith Cells Urine Yeast (Budding) Urine Opiates Screen Urine Methadone Screen Ur Barbiturates Screen Ur Phencyclidine Scrn Ur Amphetamines Screen U Benzodiazepines Scrn U Oth Cocaine Metabols U Cannabinoids Screen C. difficile Ag & Toxin Blood Type Antibody Screen 05/06/18 05/06/18 05/06/18 06:22 06:22 06:26 WBC RBC Hgb Hct MCV MCH MCHC RDW Plt Count MPV Neut % (Auto) Lymph % (Auto) [place] % (Auto) Eos % (Auto) Baso % (Auto) Neut # (Auto) Lymph # (Auto) [place] # (Auto) Eos # (Auto) Baso # (Auto) Neutrophils % (Manual) Band Neutrophils % Lymphocytes % (Manual) Monocytes % (Manual) Nucleated RBC % Differential Comment Platelet Estimate Polychromasia Hypochromasia (manual) Anisocytosis (manual) Microcytosis (manual) Ovalocytes PT INR APTT Puncture Site pCO2 pO2 HCO3 ABG pH ABG Total CO2 ABG O2 Saturation ABG Base Excess Jeff Test ABG Potassium A-a O2 Difference Respiratory Index Glucose Lactate Vent Mode Mechanical Rate FiO2 Tidal Volume PEEP Sodium Potassium Chloride Carbon Dioxide Anion Gap BUN Creatinine Est GFR ( Amer) Est GFR (Non-Af Amer) POC Glucose (mg/dL) Random Glucose Lactic Acid 1.3 Calcium Phosphorus Magnesium Total Bilirubin AST ALT Alkaline Phosphatase Ammonia 65 H D Total Creatine Kinase CK-MB (Mass) Troponin I Total Protein Albumin Globulin Albumin/Globulin Ratio Arterial Blood Potassium Urine Color Urine Clarity Urine pH Ur Specific [place] Urine Protein Urine Glucose (UA) Urine Ketones Urine Blood Urine Nitrate Urine Bilirubin Urine Urobilinogen Ur Leukocyte Esterase Urine WBC (Auto) Urine RBC (Auto) Ur Squamous Epith Cells Urine Yeast (Budding) Urine Opiates Screen Urine Methadone Screen Ur Barbiturates Screen Ur Phencyclidine Scrn Ur Amphetamines Screen U Benzodiazepines Scrn U Oth Cocaine Metabols U Cannabinoids Screen C. difficile Ag & Toxin Blood Type AB POSITIVE Antibody Screen Negative 05/06/18 05/06/18 05/06/18 06:26 09:12 11:30 WBC 11.3 H RBC 3.20 L Hgb 7.2 L Hct 23.1 L MCV 72.0 L MCH 22.5 L MCHC 31.2 L RDW 22.8 H Plt Count 32 L MPV 8.3 Neut % (Auto) 86.4 H Lymph % (Auto) 9.0 L [place] % (Auto) 4.4 Eos % (Auto) 0.1 Baso % (Auto) 0.1 Neut # (Auto) 9.7 H Lymph # (Auto) 1.0 [place] # (Auto) 0.5 Eos # (Auto) 0.0 Baso # (Auto) 0.0 Neutrophils % (Manual) Band Neutrophils % Lymphocytes % (Manual) Monocytes % (Manual) Nucleated RBC % Differential Comment Platelet Estimate Polychromasia Hypochromasia (manual) Anisocytosis (manual) Microcytosis (manual) Ovalocytes PT INR APTT Puncture Site pCO2 pO2 HCO3 ABG pH ABG Total CO2 ABG O2 Saturation ABG Base Excess Jeff Test ABG Potassium A-a O2 Difference Respiratory Index Glucose Lactate Vent Mode Mechanical Rate FiO2 Tidal Volume PEEP Sodium Potassium Chloride Carbon Dioxide Anion Gap BUN Creatinine Est GFR ( Amer) Est GFR (Non-Af Amer) POC Glucose (mg/dL) 115 H Random Glucose Lactic Acid 1.3 Calcium Phosphorus Magnesium Total Bilirubin AST ALT Alkaline Phosphatase Ammonia Total Creatine Kinase CK-MB (Mass) Troponin I Total Protein Albumin Globulin Albumin/Globulin Ratio Arterial Blood Potassium Urine Color Urine Clarity Urine pH Ur Specific [place] Urine Protein Urine Glucose (UA) Urine Ketones Urine Blood Urine Nitrate Urine Bilirubin Urine Urobilinogen Ur Leukocyte Esterase Urine WBC (Auto) Urine RBC (Auto) Ur Squamous Epith Cells Urine Yeast (Budding) Urine Opiates Screen Urine Methadone Screen Ur Barbiturates Screen Ur Phencyclidine Scrn Ur Amphetamines Screen U Benzodiazepines Scrn U Oth Cocaine Metabols U Cannabinoids Screen C. difficile Ag & Toxin Blood Type Antibody Screen 05/06/18 18:18 WBC RBC Hgb Hct MCV MCH MCHC RDW Plt Count MPV Neut % (Auto) Lymph % (Auto) [place] % (Auto) Eos % (Auto) Baso % (Auto) Neut # (Auto) Lymph # (Auto) [place] # (Auto) Eos # (Auto) Baso # (Auto) Neutrophils % (Manual) Band Neutrophils % Lymphocytes % (Manual) Monocytes % (Manual) Nucleated RBC % Differential Comment Platelet Estimate Polychromasia Hypochromasia (manual) Anisocytosis (manual) Microcytosis (manual) Ovalocytes PT INR APTT Puncture Site pCO2 pO2 HCO3 ABG pH ABG Total CO2 ABG O2 Saturation ABG Base Excess Jeff Test ABG Potassium A-a O2 Difference Respiratory Index Glucose Lactate Vent Mode Mechanical Rate FiO2 Tidal Volume PEEP Sodium Potassium Chloride Carbon Dioxide Anion Gap BUN Creatinine Est GFR ( Amer) Est GFR (Non-Af Amer) POC Glucose (mg/dL) 155 H Random Glucose Lactic Acid Calcium Phosphorus Magnesium Total Bilirubin AST ALT Alkaline Phosphatase Ammonia Total Creatine Kinase CK-MB (Mass) Troponin I Total Protein Albumin Globulin Albumin/Globulin Ratio Arterial Blood Potassium Urine Color Urine Clarity Urine pH Ur Specific [place] Urine Protein Urine Glucose (UA) Urine Ketones Urine Blood Urine Nitrate Urine Bilirubin Urine Urobilinogen Ur Leukocyte Esterase Urine WBC (Auto) Urine RBC (Auto) Ur Squamous Epith Cells Urine Yeast (Budding) Urine Opiates Screen Urine Methadone Screen Ur Barbiturates Screen Ur Phencyclidine Scrn Ur Amphetamines Screen U Benzodiazepines Scrn U Oth Cocaine Metabols U Cannabinoids Screen C. difficile Ag & Toxin Blood Type Antibody Screen Assessment & Plan - Assessment and Plan (Free Text) Assessment: 42 yo M with decompensated EtOH Cirhosis presenting with RLE wound and diarrhea, later intubated in ED for AMS/Seizure/work of breath. # EtOH Cirrhosis: MELD-Na 12. Decompensated. Recent EtOH abuse with concerns for possible withdrawal. 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 On Propranolol as OP. Hold given sepsis. - HE: NH3 65 on admission. On lactulose as OP. Can hold if already stooling at least 3 BMs due to diarrhea, but otherwise should continue, titrating to at least 3-4 BMs. - Ascites: Mild on CT, difficult to appreciate on exam due to anasarca. On Spironolactone and Furosemide as OP. Hold given sepsis picture. - HCC: No obvious mass on admission CT, but not triple phase CT # Acute Diarrhea, Sepsis: Most likely due to extremity soft tissue infection vs colitis seen on CT with reported diarrhea after recent Abx use. # EtOH Abuse: reportedly 1 point vodka per day. Unclear last drink. Concern for EtOH withdrawal. Plan: - See above for details regarding Cirrhosis recommendations - Beside US to evaluate for potential ascites to r/o SBP if available --- If not, is covered for usual SBP pathogens with Pip/Tazo - On Vanco and Pip/Tazo per primary team - Hold diuretics and BB given sepsis - Cont lactulose, titrating to at least 3 BMs; can hold if > 4 BMs - Will need PO or IN Vanco added if Cdiff positive as would be severe Cdiff - IVF per primary - Avoid NSAIDs in setting of cirrhosis - Check Stool Cx and O&P - Treatment of possible EtOH withdrawal per primary team - PPI IV daily OK for stress ulcer ppx, no signs of active bleeding - Would avoid overtransfusion in pt with cirrhosis, goal Hgb <9-10 to not raise portal pressur
--- NOTE | 2018-05-06 23:54 | CARD ---
APPROVED REPORT Date of service: 05/05/2018 EKG Measurement Heart [id number] CT 134P [id number] <Conclusion> Sinus tachycardia Left axis deviation Low voltage QRS Inferior infarct, age undetermined Cannot rule out Anteroseptal infarct, age undetermined Abnormal ECG
[2018-05-07] MEDS: Thiamine 100 mg/ml Inj IV SCH ×2 (00:09→11:37)
--- NOTE | 2018-05-07 00:29 | PN ---
DATE: 05/06/2018 SUBJECTIVE: The patient is currently in bed 17 in ICU. This morning, the patient was on ventilator, but he got extubated later after he was tolerating the CPAP trial. The patient is currently awake and responding and able to talk, but he is somewhat depressed at this time. He denies any chest pain. No shortness of breath. Complaining of some abdominal discomfort. He is felling thirsty. He wants to drink. He had no bowel movements yet. Urine output is better. He has no fever today. No vomiting. No nausea noted, but he has swelling in the face, legs, and lower extremities noted. PHYSICAL EXAMINATION: VITAL SIGNS: Temperature is afebrile, pulse 93, blood pressure 155/98, saturation is 98%. HEENT: PERRLA. NECK: Supple. CHEST: Bilateral good air entry. Wheezing bilaterally noted. ABDOMEN: Soft and nontender. EXTREMITIES: Pedal edema bilaterally noted. Right leg wound noted. LABORATORY DATA: Blood culture so far negative. Gram stain of the wound as well as the sputum culture currently pending. Sodium 138, potassium 4. BUN and creatinine is normal. Normal lactic acid level. Ammonia 65. Mild elevation of the troponin level noted. WBC 11.3, hemoglobin 7.2, and platelet is 32. Chest x-ray some congestive changes noted in the lungs. ASSESSMENT: A 42-year-old male with history of liver cirrhosis, alcoholism. The patient claims that he was drinking alcohol again for few days because of the patient's one year of separation from his , and he was getting more depressed because of that and also had a history of alcoholic liver disease, liver cirrhosis, ascites, esophageal varices mild, history of GI bleed, recurrent sepsis, MRSA wound sepsis in the right leg, recently received antibiotics, admitted now with septic shock, secondary to possible wound infection, complicated with suspected alcoholic withdrawal, altered mental status worsened secondary to Ativan injection yesterday, less likely seizure activity, currently doing well. We will continue to monitor antibiotics, diuretics, wound management, GI evaluation, ID evaluation. The patient has a low hemoglobin. We will monitor. The patient may need transfusion if needed. Platelet count is low secondary to alcoholism and liver disease. We will follow up the patient. Damaris Edwards MD [facility] # [id number]
[2018-05-07] MEDS: Albuterol-Ipratrop 3 mg / 0.5 (3 ml) UD INH SCH ×4 (01:14→19:01)
[2018-05-07] MEDS: Piperacillin/Tazobact 3.375 GM in Sodium Chloride 100 ML IVPB SCH ×4 (02:28→20:37)
[2018-05-07 05:52] LABS: HEMOGLOBIN 8.5 g/dL (12.0-18.0); MEAN CORPUSCULAR HGB CONC 30.8 g/dL (33.0-37.0); MEAN PLATELET VOLUME 8.6 fL (7.2-11.7); RBC 3.7 Mil/uL (4.40-5.90); RED CELL DISTRIBUTION WIDTH 22.2 % (11.5-14.5); WHITE BLOOD COUNT 11.8 K/uL (4.8-10.8)
[2018-05-07 06:02] LABS: MEAN CELL VOLUME 74.7 fL (80.0-94.0)
[2018-05-07 06:38] LABS: ALB/GLOB RATIO 0.6 (1.0-2.1); ALBUMIN 2.2 g/dL (3.5-5.0); ALT/SGPT 32 U/L (21-72); AST/SGOT 49 U/L (17-59); BLOOD UREA NITROGEN 25 mg/dL (9-20); CALCIUM 7.1 mg/dl (8.6-10.4); GFR NON-AFRICAN AMERICAN 51
--- NOTE | 2018-05-07 09:10 | CP.PCM.PN ---
Subjective - Date & Time of Evaluation Date of Evaluation: 05/07/18 Time of Evaluation: 09:08 - Subjective Subjective: Patient tolerated extubation. Toerating oral diet, denies any fevers Objective - Vital Signs/Intake and Output Vital Signs (last 24 hours): Temp Pulse Resp BP Pulse Ox 98.6 F 99 H 24 136/72 99 05/07/18 04:00 05/07/18 06:00 05/07/18 06:00 05/07/18 05:49 05/07/18 06:00 Intake and Output: 05/07/18 05/07/18 06:59 18:59 Intake Total 500 Output Total 600 Balance -100 - Medications Medications: Current Medications Albuterol/Ipratropium (Duoneb 3 Mg/0.5 Mg (3 Ml) Ud) 3 ml INH RQ6 FLY Last Admin: 05/07/18 07:26 Dose: 3 ml Ascorbic Acid (Vitamin C 500 Mg Tab) 500 mg PO TID [facility]Y Furosemide (Lasix) 20 mg PO Q12 FLY Last Admin: 05/06/18 23:17 Dose: 20 mg Gabapentin (Neurontin) 100 mg PO TID FLY Piperacillin Sod/Tazobactam (Sod 3.375 gm/ Sodium Chloride) 100 mls @ 200 mls/hr IVPB Q6H [facility]; Protocol Last Admin: 05/07/18 02:28 Dose: 200 mls/hr Vancomycin/Sodium Chloride (Vancomycin 1 Gm/Ns 200 Ml) 1 gm in 200 mls @ 133 mls/hr IVPB DAILY [facility]; Protocol Stop: 05/12/18 22:01 Lactulose (Enulose) 20 gm PO Q12 [facility]Y Last Admin: 05/06/18 23:17 Dose: 20 gm Magnesium Oxide (Mag-Ox) 400 mg PO DAILY [facility] Methylprednisolone (Solu-Medrol) 40 mg IVP Q12 [facility]Y Stop: 05/08/18 22:01 Last Admin: 05/06/18 21:12 Dose: 40 mg Multivitamins (Hexavitamin) 1 tab PO DAILY [facility] Last Admin: 05/06/18 18:16 Dose: 1 tab Multivitamins/Vitamin C (Multi-Delyn Liquid) 5 ml PO DAILY [facility] Nystatin (Nystatin Oral Susp) 5 ml PO QID [facility]Y Pantoprazole Sodium (Protonix Inj) 40 mg IVP Q12 [facility]Y Last Admin: 05/06/18 21:10 Dose: 40 mg Petrolatum (Desitin Original) 1 gm TOP DAILY [facility] Phytonadione (Vitamin K Tab) 10 mg PO DAILY [facility] Last Admin: 05/06/18 11:30 Dose: 10 mg Propranolol HCl (Inderal) 10 mg PO TID [facility] Spironolactone (Aldactone) 25 mg PO BID [facility] Thiamine HCl (Vitamin B1 Inj) 200 mg IV Q8H [facility] Last Admin: 05/07/18 00:09 Dose: 200 mg Zinc Sulfate (Zinc Sulfate 220 Mg Cap) 220 mg PO DAILY [facility] - Labs Labs: 05/07/18 05:34 05/07/18 05:34 PT 19.8 SECONDS (9.7-12.2) H 05/06/18 06:22 INR 1.8 05/06/18 06:22 APTT 38 SECONDS (21-34) H 05/06/18 06:22 - Head Exam Head Exam: ATRAUMATIC, NORMAL INSPECTION - Eye Exam Eye Exam: EOMI, Normal appearance Pupil Exam: NORMAL ACCOMODATION - ENT Exam ENT Exam: Mucous Membranes Moist - Neck Exam Neck Exam: Full ROM - Respiratory Exam Respiratory Exam: Rales, NORMAL BREATHING PATTERN - Cardiovascular Exam Cardiovascular Exam: REGULAR RHYTHM, +S1, +S2 - GI/Abdominal Exam GI & Abdominal Exam: Distended, Soft - Skin Additional comments: multiple desquamative disorder Assessment and Plan - Assessment and Plan (Free Text) Assessment: -Respiratory failure: resolved, extubated -Sepsis:suspect soft tissue infecation, continue abx as per ID -NSTEMI:continue treatment as per cardiology, low platelets at risk of bleeding -Thrombocytopenia: low platelets possible 2nd hyperplenism 2nd liver chirrosis, continue to monitor -AMS: resolved, good mentation -DT:resolved -PUD ppx PPI -DVT ppx scds Patient remains hemodynamically stable, not on ventilator -no signs of DTs -Patient remains hemodynamically stbale -restart home medicatoins: propanolol -change all medications to oral d/w ICU team
[2018-05-07 09:31] LABS: LYMPH # 1.3 K/uL (1.0-4.3); MONO # 0.5 K/uL (0.0-0.8)
[2018-05-07] MEDS ORDERED: Multiple Vitamins Oral Solution PO SCH (10:00)
[2018-05-07] MEDS: Nystatin 100,000 Units/ml Oral Susp 5 ml UD PO SCH ×4 (10:24→21:14)
[2018-05-07] MEDS: Magnesium Oxide 400 mg Tab UD PO SCH (10:25)
[2018-05-07] MEDS: Zinc Oxide Topical 30 gm Tube TOP SCH (10:25)
[2018-05-07] MEDS: MethylPREDNISolone 40 mg Vial IVP SCH ×2 (10:29→21:14)
[2018-05-07] MEDS: Multiple Vitamins Tab PO SCH (10:42)
--- NOTE | 2018-05-07 10:46 | CP.PCM.PN ---
<Nancie Mckinley - Last Filed: 05/07/18 10:52> Subjective - Date & Time of Evaluation Date of Evaluation: 05/07/18 Time of Evaluation: 09:00 - Subjective Subjective: GI Fellow PGY5 Progress Note Pt seen and evaluated at bedside, s/p extubation 24hrs doing well. No active GI bleeding with brown stool, liquid diarrhea. ROS: A 12pt ROS was negative except as above. Objective - Vital Signs/Intake and Output Vital Signs (last 24 hours): Temp Pulse Resp BP Pulse Ox 98.7 F 121 H 22 159/84 H 98 05/07/18 09:00 05/07/18 09:00 05/07/18 09:00 05/07/18 10:25 05/07/18 09:00 Intake and Output: 05/07/18 05/07/18 06:59 18:59 Intake Total 500 Output Total 600 Balance -100 - Medications Medications: Current Medications Albuterol/Ipratropium (Duoneb 3 Mg/0.5 Mg (3 Ml) Ud) 3 ml INH RQ6 FLY Last Admin: 05/07/18 07:26 Dose: 3 ml Ascorbic Acid (Vitamin C 500 Mg Tab) 500 mg PO TID [facility]Y Last Admin: 05/07/18 10:25 Dose: 500 mg Furosemide (Lasix) 20 mg PO Q12 FLY Last Admin: 05/07/18 10:25 Dose: 20 mg Gabapentin (Neurontin) 100 mg PO TID FLY Last Admin: 05/07/18 10:25 Dose: 100 mg Piperacillin Sod/Tazobactam (Sod 3.375 gm/ Sodium Chloride) 100 mls @ 200 mls/hr IVPB Q6H [facility]; Protocol Last Admin: 05/07/18 02:28 Dose: 200 mls/hr Vancomycin/Sodium Chloride (Vancomycin 1 Gm/Ns 200 Ml) 1 gm in 200 mls @ 133 mls/hr IVPB DAILY [facility]; Protocol Stop: 05/12/18 22:01 Insulin Aspart (Novolog) 0 unit SC ACHS FLY; Protocol Lactulose (Enulose) 20 gm PO Q12 FLY Last Admin: 05/07/18 10:24 Dose: 20 gm Magnesium Oxide (Mag-Ox) 400 mg PO DAILY [facility] Last Admin: 05/07/18 10:25 Dose: 400 mg Methylprednisolone (Solu-Medrol) 40 mg IVP Q12 [facility]Y Stop: 05/08/18 22:01 Last Admin: 05/07/18 10:29 Dose: 40 mg Multivitamins (Hexavitamin) 1 tab PO DAILY [facility] Last Admin: 05/06/18 18:16 Dose: 1 tab Multivitamins/Vitamin C (Multi-Delyn Liquid) 5 ml PO DAILY [facility] Last Admin: 05/07/18 10:26 Dose: 5 ml Nystatin (Nystatin Oral Susp) 5 ml PO QID [facility] Last Admin: 05/07/18 10:24 Dose: 5 ml Pantoprazole Sodium (Protonix Inj) 40 mg IVP Q12 [facility] Last Admin: 05/07/18 10:29 Dose: 40 mg Petrolatum (Desitin Original) 1 gm TOP DAILY [facility] Last Admin: 05/07/18 10:25 Dose: 1 mg Phytonadione (Vitamin K Tab) 10 mg PO DAILY [facility] Last Admin: 05/07/18 10:26 Dose: 10 mg Propranolol HCl (Inderal) 10 mg PO TID [facility] Spironolactone (Aldactone) 25 mg PO BID [facility] Thiamine HCl (Vitamin B1 Inj) 200 mg IV Q8H [facility] Last Admin: 05/07/18 00:09 Dose: 200 mg Zinc Sulfate (Zinc Sulfate 220 Mg Cap) 220 mg PO DAILY [facility] - Labs Labs: 05/07/18 05:34 05/07/18 05:34 PT 19.8 SECONDS (9.7-12.2) H 05/06/18 06:22 INR 1.8 05/06/18 06:22 APTT 38 SECONDS (21-34) H 05/06/18 06:22 - Constitutional Appears: Non-toxic, No Acute Distress - Head Exam Head Exam: ATRAUMATIC, NORMAL INSPECTION, NORMOCEPHALIC - Eye Exam Eye Exam: EOMI, PERRL - ENT Exam ENT Exam: Mucous Membranes Dry - Neck Exam Neck Exam: Full ROM - Cardiovascular Exam Cardiovascular Exam: Tachycardia, +S1, +S2 - GI/Abdominal Exam GI & Abdominal Exam: Soft, Normal Bowel Sounds. absent: Tenderness - Neurological Exam Neurological Exam: Alert, Awake, Oriented x3 - Psychiatric Exam Psychiatric exam: Anxious - Skin Skin Exam: Dry, Intact, Normal Color, Warm Assessment and Plan - Assessment and Plan (Free Text) Assessment: This is a 42 year old male with history of decompensated ETOH cirrhosis, HTN, DM, obesity, lower extremity wounds who presents to hospital with complaint of worsening lower extremity drainage. n ER, he became somnolent and was intubated for airway protection. 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 He had an EGD in July 2017 which showed gastritis and a colonoscopy in 2015 which showed internal hemorrhoids. 1. Decompensated ETOH cirrhosis - admission MELD 12 2. Alcohol intoxication on admission 3. Sepsis, lower extremity ulceration 4. Ascites 5. HTN / DM - Continue supportive care - Monitor for withdrawal - Continue to hold b-rigo therapy and diuretics in acute septic condition - Stool studies and c-difficile pending - Abdominal US pending to r/o ascites if + would benefit from paracentesis to r/o SBP - Continue with antibiotic therapy as per ID - s/p extubation per critical care team - H/H stable, continue to monitor - Continue with lactulose for HE prevention - Will continue to follow closely <Victor Hugo Baez - Last Filed: 05/07/18 11:31> Objective - Vital Signs/Intake and Output Vital Signs (last 24 hours): Temp Pulse Resp BP Pulse Ox 98.7 F 121 H 22 159/84 H 98 05/07/18 09:00 05/07/18 09:00 05/07/18 09:00 05/07/18 10:25 05/07/18 09:00 Intake and Output: 05/07/18 05/07/18 06:59 18:59 Intake Total 500 Output Total 600 Balance -100 - Medications Medications: Current Medications Albuterol/Ipratropium (Duoneb 3 Mg/0.5 Mg (3 Ml) Ud) 3 ml INH RQ6 FLY Last Admin: 05/07/18 07:26 Dose: 3 ml Ascorbic Acid (Vitamin C 500 Mg Tab) 500 mg PO TID [facility]Y Last Admin: 05/07/18 10:25 Dose: 500 mg Furosemide (Lasix) 20 mg PO Q12 [facility]Y Last Admin: 05/07/18 10:25 Dose: 20 mg Gabapentin (Neurontin) 100 mg PO TID [facility]Y Last Admin: 05/07/18 10:25 Dose: 100 mg Piperacillin Sod/Tazobactam (Sod 3.375 gm/ Sodium Chloride) 100 mls @ 200 mls/hr IVPB Q6H [facility]; Protocol Last Admin: 05/07/18 10:42 Dose: 200 mls/hr Vancomycin/Sodium Chloride (Vancomycin 1 Gm/Ns 200 Ml) 1 gm in 200 mls @ 133 mls/hr IVPB DAILY [facility]; Protocol Stop: 05/12/18 22:01 Insulin Aspart (Novolog) 0 unit SC ACHS FLY; Protocol Lactulose (Enulose) 20 gm PO Q12 FLY Last Admin: 05/07/18 10:24 Dose: 20 gm Magnesium Oxide (Mag-Ox) 400 mg PO DAILY [facility] Last Admin: 05/07/18 10:25 Dose: 400 mg Methylprednisolone (Solu-Medrol) 40 mg IVP Q12 [facility]Y Stop: 05/08/18 22:01 Last Admin: 05/07/18 10:29 Dose: 40 mg Multivitamins (Hexavitamin) 1 tab PO DAILY [facility] Last Admin: 05/07/18 10:42 Dose: 1 tab Multivitamins/Vitamin C (Multi-Delyn Liquid) 5 ml PO DAILY [facility] Last Admin: 05/07/18 10:26 Dose: 5 ml Nystatin (Nystatin Oral Susp) 5 ml PO QID [facility] Last Admin: 05/07/18 10:24 Dose: 5 ml Pantoprazole Sodium (Protonix Inj) 40 mg IVP Q12 [facility] Last Admin: 05/07/18 10:29 Dose: 40 mg Petrolatum (Desitin Original) 1 gm TOP DAILY [facility] Last Admin: 05/07/18 10:25 Dose: 1 mg Phytonadione (Vitamin K Tab) 10 mg PO DAILY [facility] Last Admin: 05/07/18 10:26 Dose: 10 mg Propranolol HCl (Inderal) 10 mg PO TID [facility] Last Admin: 05/07/18 10:58 Dose: 10 mg Sitagliptin Phosphate (Januvia) 25 mg PO DAILY [facility] Spironolactone (Aldactone) 25 mg PO BID [facility] Last Admin: 05/07/18 10:43 Dose: 25 mg Thiamine HCl (Vitamin B1 Inj) 200 mg IV Q8H [facility] Last Admin: 05/07/18 00:09 Dose: 200 mg Zinc Sulfate (Zinc Sulfate 220 Mg Cap) 220 mg PO DAILY [facility] - Labs Labs: 05/07/18 05:34 05/07/18 05:34 PT 19.8 SECONDS (9.7-12.2) H 05/06/18 06:22 INR 1.8 05/06/18 06:22 APTT 38 SECONDS (21-34) H 05/06/18 06:22 Attending/Attestation - Attestation I have personally seen and examined this patient.: Yes I have fully participated in the care of the patient.: Yes I have reviewed all pertinent clinical information, including history, physical exam and plan: Yes Notes (Text): 05/07/18 11:31 Chart reviewed. The pt was seen, examined and discussed with Dr. Hancock. Agree with findings and assessment as documented above.
[2018-05-07] MEDS: (Novolog) Insulin Aspart, Recombinant 100 u/ml 10 ml vial SC SCH ×3 (11:44→21:53)
--- NOTE | 2018-05-07 12:29 | PN ---
DATE: 05/07/2018 SUBJECTIVE: The patient is a 42-year-old male with alcoholism, liver cirrhosis, admitted to the ICU with worsening leg swelling, leg edema and possible sepsis, acute respiratory failure, and questionable alcoholic withdrawal. The patient today this morning is comfortable, alert, awake but he is complaining of he is not feeling well. Abdominal discomfort noted. Swelling in the abdominal area noted. PHYSICAL EXAMINATION: VITAL SIGNS: Temperature is afebrile. Blood pressure is 136/72, pulse 99, respiration is 24, saturation 99%. HEENT: PERRLA. NECK: Supple. CHEST: Good air entry. ABDOMEN: Diffusely edematous. EXTREMITIES: Leg edema noted. Right leg wound noted currently. LABORATORY DATA: Reviewed. WBC 11.8, hemoglobin 8.5, platelet is 36. INR is 1.8, which was done yesterday. BUN and creatinine is normal. Magnesium is 1.7. Vancomycin level is on the high side. ASSESSMENT AND PLAN: A 42-year-old male with a history of alcoholism, liver cirrhosis, admitted to the hospital with acute sepsis, altered mental status secondary to questionable alcoholic withdrawal and Ativan induced. The patient has leg ulcers with drainage. Currently, he is being treated for possible sepsis with gram-positive coccemia empirically with vancomycin. He is also receiving Zosyn. Vancomycin level is on the high side. We will hold off the vancomycin today. We will continue the current treatment and we will follow up the patient. Damaris Edwards MD
--- NOTE | 2018-05-07 14:26 | CP.PCM.PN ---
Subjective - Date & Time of Evaluation Date of Evaluation: 05/07/18 Time of Evaluation: 14:26 - Subjective Subjective: AFEBRILE. REMAINS EXTUBATED. C/O KATE UMBLICAL PAIN. NO GI BLEEDING. MORE RESPONSIVE AND AWAKE ON IV ABX Objective - Vital Signs/Intake and Output Vital Signs (last 24 hours): Temp Pulse Resp BP Pulse Ox 98.2 F 102 H 21 155/106 H 98 05/07/18 12:00 05/07/18 13:00 05/07/18 13:00 05/07/18 12:49 05/07/18 13:00 Intake and Output: 05/07/18 05/07/18 06:59 18:59 Intake Total 500 830 Output Total 600 130 Balance -100 700 - Medications Medications: Current Medications Albuterol/Ipratropium (Duoneb 3 Mg/0.5 Mg (3 Ml) Ud) 3 ml INH RQ6 FLY Last Admin: 05/07/18 13:30 Dose: 3 ml Ascorbic Acid (Vitamin C 500 Mg Tab) 500 mg PO TID [facility]Y Last Admin: 05/07/18 13:36 Dose: 500 mg Furosemide (Lasix) 20 mg PO Q12 [facility] Last Admin: 05/07/18 10:25 Dose: 20 mg Gabapentin (Neurontin) 100 mg PO TID [facility] Last Admin: 05/07/18 13:35 Dose: 100 mg Piperacillin Sod/Tazobactam (Sod 3.375 gm/ Sodium Chloride) 100 mls @ 200 mls/hr IVPB Q6H [facility]; Protocol Last Admin: 05/07/18 13:48 Dose: 200 mls/hr Vancomycin/Sodium Chloride (Vancomycin 1 Gm/Ns 200 Ml) 1 gm in 200 mls @ 133 mls/hr IVPB DAILY [facility]; Protocol Stop: 05/12/18 22:01 Insulin Aspart (Novolog) 0 unit SC ACHS [facility]; Protocol Last Admin: 05/07/18 11:44 Dose: 6 u Lactulose (Enulose) 20 gm PO Q12 [facility] Last Admin: 05/07/18 10:24 Dose: 20 gm Magnesium Oxide (Mag-Ox) 400 mg PO DAILY [facility] Last Admin: 05/07/18 10:25 Dose: 400 mg Methylprednisolone (Solu-Medrol) 40 mg IVP Q12 [facility]Y Stop: 05/08/18 22:01 Last Admin: 05/07/18 10:29 Dose: 40 mg Multivitamins (Hexavitamin) 1 tab PO DAILY [facility] Last Admin: 05/07/18 10:42 Dose: 1 tab Nystatin (Nystatin Oral Susp) 5 ml PO QID [facility] Last Admin: 05/07/18 13:35 Dose: 5 ml Pantoprazole Sodium (Protonix Inj) 40 mg IVP Q12 [facility] Last Admin: 05/07/18 10:29 Dose: 40 mg Petrolatum (Desitin Original) 1 gm TOP DAILY [facility] Last Admin: 05/07/18 10:25 Dose: 1 mg Phytonadione (Vitamin K Tab) 10 mg PO DAILY [facility] Last Admin: 05/07/18 10:26 Dose: 10 mg Propranolol HCl (Inderal) 10 mg PO TID [facility] Last Admin: 05/07/18 13:35 Dose: 10 mg Sitagliptin Phosphate (Januvia) 25 mg PO DAILY [facility] Last Admin: 05/07/18 11:40 Dose: 25 mg Spironolactone (Aldactone) 25 mg PO BID [facility] Last Admin: 05/07/18 10:43 Dose: 25 mg Thiamine HCl (Vitamin B1 Tab) 200 mg PO TID [facility] Last Admin: 05/07/18 13:48 Dose: 200 mg Zinc Sulfate (Zinc Sulfate 220 Mg Cap) 220 mg PO DAILY [facility] Last Admin: 05/07/18 11:37 Dose: 220 mg - Labs Labs: 05/07/18 05:34 05/07/18 05:34 PT 19.8 SECONDS (9.7-12.2) H 05/06/18 06:22 INR 1.8 05/06/18 06:22 APTT 38 SECONDS (21-34) H 05/06/18 06:22 - Constitutional Appears: No Acute Distress - Head Exam Head Exam: NORMAL INSPECTION - Eye Exam Eye Exam: EOMI, Scleral icterus - ENT Exam ENT Exam: Normal Oropharynx - Neck Exam Neck Exam: Normal Inspection - Respiratory Exam Respiratory Exam: Decreased Breath Sounds (BASES), NORMAL BREATHING PATTERN - Cardiovascular Exam Cardiovascular Exam: REGULAR RHYTHM, +S1, +S2 - GI/Abdominal Exam GI & Abdominal Exam: Soft, Tenderness (EPIGASTRIC) - Extremities Exam Extremities Exam: Normal Capillary Refill, Pedal Edema. absent: Calf Tenderness - Neurological Exam Neurological Exam: Awake, CN II-XII Intact, Oriented x3, Reflexes Normal Additional comments: RT LE +VE DRESSING N PLACE. - Skin Skin Exam: Normal Color, Warm (GENERALIZED ANASARCA.) Assessment and Plan (1) Sepsis Status: Acute (2) Abdominal pain Status: Acute (3) Alcohol abuse Status: Acute (4) Leg abrasion Status: Acute (5) Leg edema Status: Acute (6) Psoriasiform dermatitis Status: Acute (7) Alcoholic cirrhosis of liver Status: Chronic (8) Thrombocytopenia concurrent with and due to alcoholism Status: Acute - Assessment and Plan (Free Text) Plan: WOUND CULTURES RIGHT LOWER EXTREMITY PENDING. CONTINUE iv ZOSYN 3.375 iv PIGGYBACK EVERY 8 HOURLY 05/05/18 CONTINUE iv VANCOMYCIN 1 G EVERY 12 HOURLY .05/05/18 FOLLOW-UP VANCO TROUGH PRIOR TO THE FOURTH DOSEAND KEEP BETWEEN 10 AND 20. LOCAL WOUND CARE PER WOUND CARE NURSE. CONTACT PRECAUTIONS. MRSA SCREEN.
[2018-05-07] MEDS: Vancomycin 1 gm/NS 200 ml 1 GM/200 ML BAG IVPB SCH (21:13)
--- NOTE | 2018-05-07 22:36 | CP.PCM.PN ---
Subjective - Date & Time of Evaluation Date of Evaluation: 05/07/18 Time of Evaluation: 16:20 - Subjective Subjective: Patient s/p Extubation Uneventful Objective - Vital Signs/Intake and Output Vital Signs (last 24 hours): Temp Pulse Resp BP Pulse Ox 98.7 F 121 H 22 159/84 H 98 05/07/18 09:00 05/07/18 09:00 05/07/18 09:00 05/07/18 10:25 05/07/18 09:00 Intake and Output: 05/07/18 05/07/18 06:59 18:59 Intake Total 500 Output Total 600 Balance -100 - Medications Medications: Current Medications Albuterol/Ipratropium (Duoneb 3 Mg/0.5 Mg (3 Ml) Ud) 3 ml INH RQ6 [facility] Last Admin: 05/07/18 07:26 Dose: 3 ml Ascorbic Acid (Vitamin C 500 Mg Tab) 500 mg PO TID [facility] Last Admin: 05/07/18 10:25 Dose: 500 mg Furosemide (Lasix) 20 mg PO Q12 [facility] Last Admin: 05/07/18 10:25 Dose: 20 mg Gabapentin (Neurontin) 100 mg PO TID [facility] Last Admin: 05/07/18 10:25 Dose: 100 mg Piperacillin Sod/Tazobactam (Sod 3.375 gm/ Sodium Chloride) 100 mls @ 200 mls/hr IVPB Q6H [facility]; Protocol Last Admin: 05/07/18 02:28 Dose: 200 mls/hr Vancomycin/Sodium Chloride (Vancomycin 1 Gm/Ns 200 Ml) 1 gm in 200 mls @ 133 mls/hr IVPB DAILY [facility]; Protocol Stop: 05/12/18 22:01 Insulin Aspart (Novolog) 0 unit SC ACHS [facility]; Protocol Lactulose (Enulose) 20 gm PO Q12 [facility] Last Admin: 05/07/18 10:24 Dose: 20 gm Magnesium Oxide (Mag-Ox) 400 mg PO DAILY [facility] Last Admin: 05/07/18 10:25 Dose: 400 mg Methylprednisolone (Solu-Medrol) 40 mg IVP Q12 [facility] Stop: 05/08/18 22:01 Last Admin: 05/07/18 10:29 Dose: 40 mg Multivitamins (Hexavitamin) 1 tab PO DAILY [facility] Last Admin: 05/06/18 18:16 Dose: 1 tab Multivitamins/Vitamin C (Multi-Delyn Liquid) 5 ml PO DAILY [facility] Last Admin: 05/07/18 10:26 Dose: 5 ml Nystatin (Nystatin Oral Susp) 5 ml PO QID [facility] Last Admin: 05/07/18 10:24 Dose: 5 ml Pantoprazole Sodium (Protonix Inj) 40 mg IVP Q12 [facility] Last Admin: 05/07/18 10:29 Dose: 40 mg Petrolatum (Desitin Original) 1 gm TOP DAILY [facility] Last Admin: 05/07/18 10:25 Dose: 1 mg Phytonadione (Vitamin K Tab) 10 mg PO DAILY [facility] Last Admin: 05/07/18 10:26 Dose: 10 mg Propranolol HCl (Inderal) 10 mg PO TID [facility] Spironolactone (Aldactone) 25 mg PO BID [facility] Thiamine HCl (Vitamin B1 Inj) 200 mg IV Q8H [facility] Last Admin: 05/07/18 00:09 Dose: 200 mg Zinc Sulfate (Zinc Sulfate 220 Mg Cap) 220 mg PO DAILY [facility] - Labs Labs: 05/07/18 05:34 05/07/18 05:34 PT 19.8 SECONDS (9.7-12.2) H 05/06/18 06:22 INR 1.8 05/06/18 06:22 APTT 38 SECONDS (21-34) H 05/06/18 06:22 - Constitutional Appears: Non-toxic, No Acute Distress - Head Exam Head Exam: ATRAUMATIC, NORMAL INSPECTION, NORMOCEPHALIC - Eye Exam Eye Exam: EOMI, PERRL - ENT Exam ENT Exam: Mucous Membranes Dry - Neck Exam Neck Exam: Full ROM - Cardiovascular Exam Cardiovascular Exam: Tachycardia, +S1, +S2 - GI/Abdominal Exam GI & Abdominal Exam: Soft, Normal Bowel Sounds. absent: Tenderness - Neurological Exam Neurological Exam: Alert, Awake, Oriented x3 - Psychiatric Exam Psychiatric exam: Anxious - Skin Skin Exam: Dry, Intact, Normal Color, Warm Assessment and Plan - Assessment and Plan (Free Text) Assessment: This is a 42 year old male with history of decompensated ETOH cirrhosis, HTN, DM, obesity, lower extremity wounds who presents to hospital with complaint of worsening lower extremity drainage. n ER, he became somnolent and was intubated for airway protection. 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 He had an EGD in July 2017 which showed gastritis and a colonoscopy in 2015 which showed internal hemorrhoids. 1. Decompensated ETOH cirrhosis - admission MELD 12 2. Alcohol intoxication on admission 3. Sepsis, lower extremity ulceration 4. Ascites 5. HTN / DM Medical mgt for now Not a candidate for Cath at present duwe to low platelets Objective - Vital Signs/Intake and Output Vital Signs (last 24 hours): Temp Pulse Resp BP Pulse Ox 98.5 F 101 H 23 156/111 H 100 05/07/18 20:00 05/07/18 20:13 05/07/18 20:00 05/07/18 21:14 05/07/18 20:00 Intake and Output: 05/07/18 05/08/18 18:59 06:59 Intake Total 1630 0 Output Total 650 0 Balance 980 0 - Medications Medications: Current Medications Albuterol/Ipratropium (Duoneb 3 Mg/0.5 Mg (3 Ml) Ud) 3 ml INH RQ6 [facility] Last Admin: 05/07/18 19:01 Dose: 3 ml Ascorbic Acid (Vitamin C 500 Mg Tab) 500 mg PO TID [facility] Last Admin: 05/07/18 17:19 Dose: 500 mg Furosemide (Lasix) 20 mg PO Q12 [facility] Last Admin: 05/07/18 21:14 Dose: 20 mg Gabapentin (Neurontin) 100 mg PO TID [facility] Last Admin: 05/07/18 17:18 Dose: 100 mg Piperacillin Sod/Tazobactam (Sod 3.375 gm/ Sodium Chloride) 100 mls @ 200 mls/hr IVPB Q6H [facility]; Protocol Last Admin: 05/07/18 20:37 Dose: 200 mls/hr Vancomycin/Sodium Chloride (Vancomycin 1 Gm/Ns 200 Ml) 1 gm in 200 mls @ 133 mls/hr IVPB DAILY [facility]; Protocol Stop: 05/12/18 22:01 Last Admin: 05/07/18 21:13 Dose: 133 mls/hr Insulin Aspart (Novolog) 0 unit SC ACHS [facility]; Protocol Last Admin: 05/07/18 21:53 Dose: Not Given Lactulose (Enulose) 20 gm PO Q12 [facility] Last Admin: 05/07/18 21:14 Dose: 20 gm Magnesium Oxide (Mag-Ox) 400 mg PO DAILY [facility] Last Admin: 05/07/18 10:25 Dose: 400 mg Methylprednisolone (Solu-Medrol) 40 mg IVP Q12 [facility] Stop: 05/08/18 22:01 Last Admin: 05/07/18 21:14 Dose: 40 mg Multivitamins (Hexavitamin) 1 tab PO DAILY [facility] Last Admin: 05/07/18 10:42 Dose: 1 tab Nystatin (Nystatin Oral Susp) 5 ml PO QID [facility] Last Admin: 05/07/18 21:14 Dose: 5 ml Pantoprazole Sodium (Protonix Inj) 40 mg IVP Q12 [facility] Last Admin: 05/07/18 21:14 Dose: 40 mg Petrolatum (Desitin Original) 1 gm TOP DAILY [facility] Last Admin: 05/07/18 10:25 Dose: 1 mg Phytonadione (Vitamin K Tab) 10 mg PO DAILY [facility] Last Admin: 05/07/18 10:26 Dose: 10 mg Propranolol HCl (Inderal) 10 mg PO TID [facility] Last Admin: 05/07/18 17:19 Dose: 10 mg Sitagliptin Phosphate (Januvia) 25 mg PO DAILY [facility] Last Admin: 05/07/18 11:40 Dose: 25 mg Spironolactone (Aldactone) 25 mg PO BID [facility] Last Admin: 05/07/18 17:19 Dose: 25 mg Thiamine HCl (Vitamin B1 Tab) 200 mg PO TID [facility] Last Admin: 05/07/18 17:18 Dose: 200 mg Zinc Sulfate (Zinc Sulfate 220 Mg Cap) 220 mg PO DAILY [facility] Last Admin: 05/07/18 11:37 Dose: 220 mg - Labs Labs: 05/07/18 05:34 05/07/18 05:34 PT 19.8 SECONDS (9.7-12.2) H 05/06/18 06:22 INR 1.8 05/06/18 06:22 APTT 38 SECONDS (21-34) H 05/06/18 06:22
[2018-05-08] MEDS: Albuterol-Ipratrop 3 mg / 0.5 (3 ml) UD INH SCH ×4 (01:15→19:20)
[2018-05-08] MEDS: Piperacillin/Tazobact 3.375 GM in Sodium Chloride 100 ML IVPB SCH ×4 (01:43→20:32)
[2018-05-08 06:07] LABS: BASO % 0.2 % (0.0-2.0); EOS % 0.1 % (0.0-4.0); HEMOGLOBIN 9.1 g/dL (12.0-18.0); LYMPH # 2.3 K/uL (1.0-4.3); LYMPH % 13.7 % (20.0-40.0); MEAN CELL VOLUME 74.3 fL (80.0-94.0); MEAN CORPUSCULAR HEMOGLOBIN 22.4 pg (27.0-31.0); MEAN CORPUSCULAR HGB CONC 30.2 g/dL (33.0-37.0); MEAN PLATELET VOLUME 8.9 fL (7.2-11.7); MONO # 0.5 K/uL (0.0-0.8); NEUT # 13.7 K/uL (1.8-7.0); NRBC % 0.1 % (0.0-2.0); RBC 4.05 Mil/uL (4.40-5.90); RED CELL DISTRIBUTION WIDTH 23.2 % (11.5-14.5); WHITE BLOOD COUNT 16.5 K/uL (4.8-10.8)
[2018-05-08 06:27] LABS: ALB/GLOB RATIO 0.6 (1.0-2.1); ALBUMIN 2.6 g/dL (3.5-5.0); ALT/SGPT 31 U/L (21-72); AST/SGOT 43 U/L (17-59); BLOOD UREA NITROGEN 28 mg/dL (9-20); CALCIUM 7.2 mg/dl (8.6-10.4); GFR NON-AFRICAN AMERICAN > 60
[2018-05-08] MEDS: (Novolog) Insulin Aspart, Recombinant 100 u/ml 10 ml vial SC SCH ×4 (08:00→21:55)
[2018-05-08] MEDS: Multiple Vitamins Tab PO SCH (09:13)
[2018-05-08] MEDS: Magnesium Oxide 400 mg Tab UD PO SCH (09:13)
[2018-05-08] MEDS: MethylPREDNISolone 40 mg Vial IVP SCH ×2 (09:14→21:52)
[2018-05-08] MEDS: Nystatin 100,000 Units/ml Oral Susp 5 ml UD PO SCH ×4 (09:15→21:54)
[2018-05-08] MEDS: Vancomycin 1 gm/NS 200 ml 1 GM/200 ML BAG IVPB SCH (10:23)
[2018-05-08] MEDS: Zinc Oxide Topical 30 gm Tube TOP SCH (11:00)
--- NOTE | 2018-05-08 11:31 | CP.PCM.PN ---
<Nancie Mckinley - Last Filed: 05/08/18 11:31> Subjective - Date & Time of Evaluation Date of Evaluation: 05/08/18 Time of Evaluation: 09:00 - Subjective Subjective: GI Fellow PGY5 Progress Note Pt seen and evaluated at bedside, s/p extubation 24hrs doing well. No active GI bleeding with brown stool, liquid diarrhea. ROS: A 12pt ROS was negative except as above. Objective - Vital Signs/Intake and Output Vital Signs (last 24 hours): Temp Pulse Resp BP Pulse Ox 98 F 90 25 H 138/83 100 05/08/18 08:00 05/08/18 08:00 05/08/18 08:00 05/08/18 09:13 05/08/18 08:00 Intake and Output: 05/08/18 05/08/18 06:59 18:59 Intake Total 640 700 Output Total 1000 240 Balance -360 460 - Medications Medications: Current Medications Albuterol/Ipratropium (Duoneb 3 Mg/0.5 Mg (3 Ml) Ud) 3 ml INH RQ6 [facility] Last Admin: 05/08/18 07:28 Dose: 3 ml Ascorbic Acid (Vitamin C 500 Mg Tab) 500 mg PO TID [facility] Last Admin: 05/08/18 09:13 Dose: 500 mg Furosemide (Lasix) 20 mg PO Q12 [facility] Last Admin: 05/08/18 09:13 Dose: 20 mg Gabapentin (Neurontin) 100 mg PO TID [facility] Last Admin: 05/08/18 09:13 Dose: 100 mg Piperacillin Sod/Tazobactam (Sod 3.375 gm/ Sodium Chloride) 100 mls @ 200 mls/hr IVPB Q6H [facility]; Protocol Last Admin: 05/08/18 08:01 Dose: 200 mls/hr Vancomycin/Sodium Chloride (Vancomycin 1 Gm/Ns 200 Ml) 1 gm in 200 mls @ 133 mls/hr IVPB DAILY [facility]; Protocol Stop: 05/12/18 22:01 Last Admin: 05/08/18 10:23 Dose: 133 mls/hr Insulin Aspart (Novolog) 0 unit SC ACHS [facility]; Protocol Last Admin: 05/08/18 08:00 Dose: 2 u Lactulose (Enulose) 20 gm PO Q12 [facility] Last Admin: 05/07/18 21:14 Dose: 20 gm Magnesium Oxide (Mag-Ox) 400 mg PO DAILY [facility] [place] Last Admin: 05/08/18 09:13 Dose: 400 mg Methylprednisolone (Solu-Medrol) 40 mg IVP Q12 [facility] [place] Stop: 05/08/18 22:01 Last Admin: 05/08/18 09:14 Dose: 40 mg Multivitamins (Hexavitamin) 1 tab PO DAILY [facility] [place] Last Admin: 05/08/18 09:13 Dose: 1 tab Nystatin (Nystatin Oral Susp) 5 ml PO QID [facility] [place] Last Admin: 05/08/18 09:15 Dose: 5 ml Pantoprazole Sodium (Protonix Inj) 40 mg IVP Q12 [facility] [place] Last Admin: 05/08/18 10:22 Dose: 40 mg Petrolatum (Desitin Original) 1 gm TOP DAILY [facility] [place] Last Admin: 05/07/18 10:25 Dose: 1 mg Phytonadione (Vitamin K Tab) 10 mg PO DAILY [facility] [place] Last Admin: 05/08/18 09:15 Dose: 10 mg Propranolol HCl (Inderal) 10 mg PO TID [facility] [place] Last Admin: 05/08/18 09:14 Dose: 10 mg Sitagliptin Phosphate (Januvia) 25 mg PO DAILY [facility] [place] Last Admin: 05/08/18 09:54 Dose: 25 mg Spironolactone (Aldactone) 25 mg PO BID [facility] [place] Last Admin: 05/07/18 17:19 Dose: 25 mg Thiamine HCl (Vitamin B1 Tab) 200 mg PO TID [facility] [place] Last Admin: 05/08/18 10:21 Dose: 200 mg Zinc Sulfate (Zinc Sulfate 220 Mg Cap) 220 mg PO DAILY [facility] [place] Last Admin: 05/08/18 09:13 Dose: 220 mg - Labs Labs: 05/08/18 06:04 05/08/18 06:04 PT 19.8 SECONDS (9.7-12.2) H 05/06/18 06:22 INR 1.8 05/06/18 06:22 APTT 38 SECONDS (21-34) H 05/06/18 06:22 - Constitutional Appears: Non-toxic, No Acute Distress - Head Exam Head Exam: ATRAUMATIC, NORMAL INSPECTION, NORMOCEPHALIC - Eye Exam Eye Exam: EOMI, Normal appearance, PERRL - ENT Exam ENT Exam: Mucous Membranes Moist, Normal Exam - Respiratory Exam Respiratory Exam: Clear to Ausculation Bilateral, NORMAL BREATHING PATTERN - Cardiovascular Exam Cardiovascular Exam: RRR, +S1, +S2 - GI/Abdominal Exam GI & Abdominal Exam: Soft, Normal Bowel Sounds. absent: Distended, Guarding - Extremities Exam Extremities Exam: Full ROM, Normal Inspection - Neurological Exam Neurological Exam: Alert, Awake, Oriented x3 - Psychiatric Exam Psychiatric exam: Normal Affect, Normal Mood Assessment and Plan - Assessment and Plan (Free Text) Assessment: This is a 42 year old male with history of decompensated ETOH cirrhosis, HTN, DM, obesity, lower extremity wounds who presents to hospital with complaint of worsening lower extremity drainage. n ER, he became somnolent and was intubated for airway protection. 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 He had an EGD in July 2017 which showed gastritis and a colonoscopy in 2015 which showed internal hemorrhoids. 1. Decompensated ETOH cirrhosis - admission MELD 12 2. Alcohol intoxication on admission 3. Sepsis, lower extremity ulceration 4. Ascites 5. HTN / DM - Continue supportive care - Monitor for withdrawal - Stool studies and c-difficile pending - Abdominal US pending to r/o ascites if + would benefit from paracentesis to r/o SBP - Continue with antibiotic therapy as per ID - s/p extubation per critical care team - H/H stable, continue to monitor - Continue with lactulose for HE prevention - Will continue to follow closely <Victor Hugo Baez - Last Filed: 05/08/18 17:46> Objective - Vital Signs/Intake and Output Vital Signs (last 24 hours): Temp Pulse Resp BP Pulse Ox 98.7 F 86 22 151/96 H 99 05/08/18 16:00 05/08/18 16:00 05/08/18 16:00 05/08/18 16:00 05/08/18 16:00 Intake and Output: 05/08/18 05/08/18 06:59 18:59 Intake Total 640 1080 Output Total 1000 670 Balance -360 410 - Medications Medications: Current Medications Albuterol/Ipratropium (Duoneb 3 Mg/0.5 Mg (3 Ml) Ud) 3 ml INH RQ6 [facility] Last Admin: 05/08/18 13:04 Dose: 3 ml Ascorbic Acid (Vitamin C 500 Mg Tab) 500 mg PO TID [facility] [place] Last Admin: 05/08/18 17:36 Dose: 500 mg Furosemide (Lasix) 20 mg PO Q12 [facility] [place] Last Admin: 05/08/18 09:13 Dose: 20 mg Gabapentin (Neurontin) 100 mg PO TID [facility] [place] Last Admin: 05/08/18 17:34 Dose: 100 mg Piperacillin Sod/Tazobactam (Sod 3.375 gm/ Sodium Chloride) 100 mls @ 200 ml s/hr IVPB Q6H [facility]; Protocol Last Admin: 05/08/18 14:41 Dose: 200 mls/hr Vancomycin/Sodium Chloride (Vancomycin 1 Gm/Ns 200 Ml) 1 gm in 200 mls @ 133 mls/hr IVPB DAILY [facility]; Protocol Stop: 05/12/18 22:01 Last Admin: 05/08/18 10:23 Dose: 133 mls/hr Insulin Aspart (Novolog) 0 unit SC ACHS [facility]; Protocol Last Admin: 05/08/18 12:34 Dose: 2 u Lactulose (Enulose) 20 gm PO Q12 [facility] Last Admin: 05/08/18 10:00 Dose: Not Given Magnesium Oxide (Mag-Ox) 400 mg PO DAILY [facility] [place] Last Admin: 05/08/18 09:13 Dose: 400 mg Methylprednisolone (Solu-Medrol) 40 mg IVP Q12 [facility] Stop: 05/08/18 22:01 Last Admin: 05/08/18 09:14 Dose: 40 mg Multivitamins (Hexavitamin) 1 tab PO DAILY [facility] [place] Last Admin: 05/08/18 09:13 Dose: 1 tab Nystatin (Nystatin Oral Susp) 5 ml PO QID [facility] [place] Last Admin: 05/08/18 17:34 Dose: 5 ml Pantoprazole Sodium (Protonix Inj) 40 mg IVP Q12 [facility] [place] Last Admin: 05/08/18 10:22 Dose: 40 mg Petrolatum (Desitin Original) 1 gm TOP DAILY [facility] [place] Last Admin: 05/08/18 11:00 Dose: 1 mg Phytonadione (Vitamin K Tab) 10 mg PO DAILY [facility] [place] Last Admin: 05/08/18 09:15 Dose: 10 mg Propranolol HCl (Inderal) 10 mg PO TID [facility] Last Admin: 05/08/18 17:34 Dose: 10 mg Sitagliptin Phosphate (Januvia) 25 mg PO DAILY [facility] [place] Last Admin: 05/08/18 09:54 Dose: 25 mg Spironolactone (Aldactone) 25 mg PO BID [facility] [place] Last Admin: 05/08/18 17:34 Dose: 25 mg Thiamine HCl (Vitamin B1 Tab) 200 mg PO TID [facility] Last Admin: 05/08/18 13:29 Dose: 200 mg Zinc Sulfate (Zinc Sulfate 220 Mg Cap) 220 mg PO DAILY [facility] Last Admin: 05/08/18 09:13 Dose: 220 mg - Labs Labs: 05/08/18 06:04 05/08/18 06:04 PT 19.8 SECONDS (9.7-12.2) H 05/06/18 06:22 INR 1.8 05/06/18 06:22 APTT 38 SECONDS (21-34) H 05/06/18 06:22 Attending/Attestation - Attestation I have personally seen and examined this patient.: Yes I have fully participated in the care of the patient.: Yes I have reviewed all pertinent clinical information, including history, physical exam and plan: Yes Notes (Text): 05/08/18 17:45 The pt was seen in am. D/w pt's nurse. Discussed with Dr. Peres. Agree with finding and assessment as documented above. Advance diet.
--- NOTE | 2018-05-08 17:42 | CP.PCM.PN ---
Subjective - Date & Time of Evaluation Date of Evaluation: 05/08/18 Time of Evaluation: 14:30 - Subjective Subjective: Patient seen and evaluated denies chest pain But still has some dyspnea 1. Alcoholic heart and Liver disease 2. Hx of Eso varices and GIB 3. S/P extubation 4. Generalized edema 5. Chronic systolic CHF Will continue to treat medically for Cardiomyopathy May benefit from Cath when more stable Objective - Vital Signs/Intake and Output Vital Signs (last 24 hours): Temp Pulse Resp BP Pulse Ox 98.7 F 86 22 151/96 H 99 05/08/18 16:00 05/08/18 16:00 05/08/18 16:00 05/08/18 16:00 05/08/18 16:00 Intake and Output: 05/08/18 05/08/18 06:59 18:59 Intake Total 640 1080 Output Total 1000 670 Balance -360 410 - Medications Medications: Current Medications Albuterol/Ipratropium (Duoneb 3 Mg/0.5 Mg (3 Ml) Ud) 3 ml INH RQ6 [facility] Last Admin: 05/08/18 13:04 Dose: 3 ml Ascorbic Acid (Vitamin C 500 Mg Tab) 500 mg PO TID [facility] Last Admin: 05/08/18 17:36 Dose: 500 mg Furosemide (Lasix) 20 mg PO Q12 [facility] Last Admin: 05/08/18 09:13 Dose: 20 mg Gabapentin (Neurontin) 100 mg PO TID [facility] Last Admin: 05/08/18 17:34 Dose: 100 mg Piperacillin Sod/Tazobactam (Sod 3.375 gm/ Sodium Chloride) 100 mls @ 200 mls/hr IVPB Q6H [facility]; Protocol Last Admin: 05/08/18 14:41 Dose: 200 mls/hr Vancomycin/Sodium Chloride (Vancomycin 1 Gm/Ns 200 Ml) 1 gm in 200 mls @ 133 mls/hr IVPB DAILY [facility]; Protocol Stop: 05/12/18 22:01 Last Admin: 05/08/18 10:23 Dose: 133 mls/hr Insulin Aspart (Novolog) 0 unit SC ACHS [facility]; Protocol Last Admin: 05/08/18 12:34 Dose: 2 u Lactulose (Enulose) 20 gm PO Q12 [facility] Last Admin: 05/08/18 10:00 Dose: Not Given Magnesium Oxide (Mag-Ox) 400 mg PO DAILY [facility] Last Admin: 12/09/18 09:13 Dose: 400 mg Methylprednisolone (Solu-Medrol) 40 mg IVP Q12 [facility] Stop: 05/08/18 22:01 Last Admin: 05/08/18 09:14 Dose: 40 mg Multivitamins (Hexavitamin) 1 tab PO DAILY [facility] Last Admin: 05/08/18 09:13 Dose: 1 tab Nystatin (Nystatin Oral Susp) 5 ml PO QID [facility] Last Admin: 05/08/18 17:34 Dose: 5 ml Pantoprazole Sodium (Protonix Inj) 40 mg IVP Q12 [facility] Last Admin: 05/08/18 10:22 Dose: 40 mg Petrolatum (Desitin Original) 1 gm TOP DAILY [facility] Last Admin: 05/08/18 11:00 Dose: 1 mg Phytonadione (Vitamin K Tab) 10 mg PO DAILY [facility] Last Admin: 05/08/18 09:15 Dose: 10 mg Propranolol HCl (Inderal) 10 mg PO TID [facility] Last Admin: 05/08/18 17:34 Dose: 10 mg Sitagliptin Phosphate (Januvia) 25 mg PO DAILY [facility] Last Admin: 05/08/18 09:54 Dose: 25 mg Spironolactone (Aldactone) 25 mg PO BID [facility] Last Admin: 05/08/18 17:34 Dose: 25 mg Thiamine HCl (Vitamin B1 Tab) 200 mg PO TID [facility] Last Admin: 05/08/18 13:29 Dose: 200 mg Zinc Sulfate (Zinc Sulfate 220 Mg Cap) 220 mg PO DAILY [facility] Last Admin: 05/08/18 09:13 Dose: 220 mg - Labs Labs: 05/08/18 06:04 05/08/18 06:04 PT 19.8 SECONDS (9.7-12.2) H 05/06/18 06:22 INR 1.8 05/06/18 06:22 APTT 38 SECONDS (21-34) H 05/06/18 06:22
[2018-05-08] MEDS: Ciprofloxacin 400mg/200ml D5W 400 MG/200 ML BAG IVPB SCH (20:35)
[2018-05-09] MEDS: Albuterol-Ipratrop 3 mg / 0.5 (3 ml) UD INH SCH ×4 (02:38→20:38)
[2018-05-09 06:33] LABS: BASO % 0.2 % (0.0-2.0); HEMOGLOBIN 9.1 g/dL (12.0-18.0); LYMPH # 0.4 K/uL (1.0-4.3); LYMPH % 3.2 % (20.0-40.0); MEAN CELL VOLUME 73.8 fL (80.0-94.0); MEAN CORPUSCULAR HEMOGLOBIN 22.5 pg (27.0-31.0); MEAN CORPUSCULAR HGB CONC 30.5 g/dL (33.0-37.0); MEAN PLATELET VOLUME 8.7 fL (7.2-11.7); MONO # 1.7 K/uL (0.0-0.8); MONO % 13.4 % (0.0-10.0); NEUT # 10.5 K/uL (1.8-7.0); NEUT % 83.2 % (50.0-75.0); NRBC % 0.1 % (0.0-2.0); PLATELET COUNT 68 K/uL (130-400); RBC 4.03 Mil/uL (4.40-5.90); RED CELL DISTRIBUTION WIDTH 23.5 % (11.5-14.5); WHITE BLOOD COUNT 12.6 K/uL (4.8-10.8)
[2018-05-09 06:45] LABS: ALB/GLOB RATIO 0.6 (1.0-2.1); ALBUMIN 2.5 g/dL (3.5-5.0); ALT/SGPT 37 U/L (21-72); AST/SGOT 47 U/L (17-59); BLOOD UREA NITROGEN 24 mg/dL (9-20); CALCIUM 7.3 mg/dl (8.6-10.4); GFR NON-AFRICAN AMERICAN > 60
--- NOTE | 2018-05-09 07:19 | CP.PCM.PN ---
<Joon Spaulding - Last Filed: 05/09/18 10:07> Subjective - Date & Time of Evaluation Date of Evaluation: 05/09/18 Time of Evaluation: 07:45 - Subjective Subjective: PGY-4 GI Fellow Prog Note Pt lying in bed when seen this AM. States some sore throat/URI symptoms, but otherwise denied other complaints. Stooling with no reported signs of bleeding per nursing. 5 point ROS negative other than stated above Objective - Vital Signs/Intake and Output Vital Signs (last 24 hours): Temp Pulse Resp BP Pulse Ox 98.8 F 94 H 22 156/88 H 100 05/09/18 04:00 05/09/18 06:00 05/09/18 06:00 05/09/18 03:56 05/09/18 06:00 Intake and Output: 05/09/18 05/09/18 06:59 18:59 Intake Total 910 Output Total 1000 Balance -90 - Medications Medications: Current Medications Albuterol/Ipratropium (Duoneb 3 Mg/0.5 Mg (3 Ml) Ud) 3 ml INH RQ6 [facility] Last Admin: 05/09/18 02:38 Dose: 3 ml Ascorbic Acid (Vitamin C 500 Mg Tab) 500 mg PO TID [facility] Last Admin: 05/08/18 17:36 Dose: 500 mg Furosemide (Lasix) 20 mg PO Q12 [facility] Last Admin: 05/08/18 21:52 Dose: 20 mg Gabapentin (Neurontin) 100 mg PO TID [facility] Last Admin: 05/08/18 17:34 Dose: 100 mg Vancomycin/Sodium Chloride (Vancomycin 1 Gm/Ns 200 Ml) 1 gm in 200 mls @ 133 mls/hr IVPB DAILY [facility]; Protocol Stop: 05/12/18 22:01 Last Admin: 05/08/18 10:23 Dose: 133 mls/hr Ciprofloxacin (Cipro 400mg/200ml Dsw) 400 mg in 200 mls @ 133 mls/hr IVPB Q12H [facility]; Protocol Last Admin: 05/08/18 20:35 Dose: 133 mls/hr Insulin Aspart (Novolog) 0 unit SC ACHS [facility]; Protocol Last Admin: 05/08/18 21:55 Dose: Not Given Lactulose (Enulose) 20 gm PO Q12 [facility] Last Admin: 05/08/18 21:58 Dose: Not Given Magnesium Oxide (Mag-Ox) 400 mg PO DAILY [facility] Last Admin: 05/08/18 09:13 Dose: 400 mg Multivitamins (Hexavitamin) 1 tab PO DAILY [facility] Last Admin: 05/08/18 09:13 Dose: 1 tab Nystatin (Nystatin Oral Susp) 5 ml PO QID [facility] Last Admin: 05/08/18 21:54 Dose: 5 ml Pantoprazole Sodium (Protonix Inj) 40 mg IVP Q12 [facility] Last Admin: 05/08/18 21:52 Dose: 40 mg Petrolatum (Desitin Original) 1 gm TOP DAILY [facility] Last Admin: 05/08/18 11:00 Dose: 1 mg Phytonadione (Vitamin K Tab) 10 mg PO DAILY [facility] Last Admin: 05/08/18 09:15 Dose: 10 mg Propranolol HCl (Inderal) 10 mg PO TID [facility] Last Admin: 05/08/18 17:34 Dose: 10 mg Sitagliptin Phosphate (Januvia) 25 mg PO DAILY [facility] Last Admin: 05/08/18 09:54 Dose: 25 mg Spironolactone (Aldactone) 25 mg PO BID [facility] Last Admin: 05/08/18 17:34 Dose: 25 mg Thiamine HCl (Vitamin B1 Tab) 200 mg PO TID [facility] Last Admin: 05/08/18 18:00 Dose: 200 mg Zinc Sulfate (Zinc Sulfate 220 Mg Cap) 220 mg PO DAILY [facility] Last Admin: 05/08/18 09:13 Dose: 220 mg - Labs Labs: 05/09/18 06:24 05/09/18 06:24 PT 19.8 SECONDS (9.7-12.2) H 05/06/18 06:22 INR 1.8 05/06/18 06:22 APTT 38 SECONDS (21-34) H 05/06/18 06:22 - Constitutional Appears: No Acute Distress, Older Than Stated Age - Head Exam Head Exam: ATRAUMATIC, NORMAL INSPECTION - Eye Exam Eye Exam: EOMI. absent: Scleral icterus - ENT Exam ENT Exam: Mucous Membranes Moist. absent: Mucous Membranes Dry - GI/Abdominal Exam GI & Abdominal Exam: Distended, Soft, Normal Bowel Sounds. absent: Bruit, Firm, Guarding, Rigid, Tenderness, Organomegaly (though exam limited by anasarca), Pulsatile Mass Assessment and Plan - Assessment and Plan (Free Text) Assessment: 42 yo M with decompensated EtOH Cirhosis presenting with RLE wound and diarrhea, later intubated in ED for AMS/Seizure/work of breathing. # EtOH Cirrhosis: MELD-Na 12. Decompensated. Recent EtOH abuse with concerns for possible withdrawal. 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 On Propranolol as OP. - HE: NH3 65 on admission. On lactulose as OP. - Ascites: Mild on CT, difficult to appreciate on exam due to anasarca. On Spironolactone and Furosemide as OP. - HCC: No obvious mass on admission CT, but not triple phase CT # Acute Diarrhea, Sepsis: Most likely due to extremity soft tissue infection vs enterocolitis seen on CT with reported diarrhea after recent Abx use. Suspect possible viral component of enterocolitis seen on CT given Cdiff and Stool Cx negative # EtOH Abuse: Reportedly 1 point vodka per day. Unclear last drink. Concern for EtOH withdrawal. Plan: - Abx per ID (Vanco+Cipro) - Cont BB, diuretics - Cont lactulose, titrating to at least 3 BMs; can hold if > 4 BMs - Avoid NSAIDs in setting of cirrhosis - Monitor for EtOH withdrawal - DC PPI - Counseled patient to avoid EtOH and utilize social work support Thank you for the consult; will sign off. Please call if questions. Pt seen and examined with Dr. Holt; see attestation for further recs/changes Joon Spaulding, PGY-4 <Ruddy Holt - Last Filed: 05/09/18 13:16> Objective - Vital Signs/Intake and Output Vital Signs (last 24 hours): Temp Pulse Resp BP Pulse Ox 98.7 F 90 23 178/112 H 100 05/09/18 08:00 05/09/18 11:00 05/09/18 11:00 05/09/18 09:56 05/09/18 07:00 Intake and Output: 05/09/18 05/09/18 06:59 18:59 Intake Total 910 Output Total 1000 Balance -90 - Medications Medications: Current Medications Albuterol/Ipratropium (Duoneb 3 Mg/0.5 Mg (3 Ml) Ud) 3 ml INH RQ6 [facility] Last Admin: 05/09/18 07:10 Dose: 3 ml Ascorbic Acid (Vitamin C 500 Mg Tab) 500 mg PO TID [facility] Last Admin: 05/09/18 09:11 Dose: 500 mg Folic Acid (Folic Acid) 1 mg PO DAILY [facility] Last Admin: 05/09/18 09:22 Dose: 1 mg Furosemide (Lasix) 20 mg IVP Q12 [facility] Last Admin: 05/09/18 09:11 Dose: 20 mg Gabapentin (Neurontin) 100 mg PO TID [facility] Last Admin: 05/09/18 09:10 Dose: 100 mg Vancomycin/Sodium Chloride (Vancomycin 1 Gm/Ns 200 Ml) 1 gm in 200 mls @ 133 mls/hr IVPB DAILY [facility]; Protocol Stop: 05/12/18 22:01 Last Admin: 05/09/18 10:08 Dose: 133 mls/hr Ciprofloxacin (Cipro 400mg/200ml Dsw) 400 mg in 200 mls @ 133 mls/hr IVPB Q12H [facility]; Protocol Last Admin: 05/09/18 08:07 Dose: 133 mls/hr Piperacillin Sod/Tazobactam Sod (Zosyn 2.25 Gm Iv Premix) 2.25 gm in 50 mls @ 100 mls/hr IVPB Q6H [facility]; Protocol Last Admin: 05/09/18 10:10 Dose: 100 mls/hr Insulin Aspart (Novolog) 0 unit SC ACHS [facility]; Protocol Last Admin: 05/09/18 11:57 Dose: 3 u Lactulose (Enulose) 20 gm PO DAILY [facility] Last Admin: 05/09/18 09:23 Dose: Not Given Magnesium Oxide (Mag-Ox) 400 mg PO DAILY [facility] Last Admin: 05/09/18 09:11 Dose: 400 mg Multivitamins (Hexavitamin) 1 tab PO DAILY [facility] Last Admin: 05/09/18 09:11 Dose: 1 tab Nystatin (Nystatin Oral Susp) 5 ml PO QID [facility] Last Admin: 05/09/18 09:12 Dose: 5 ml Petrolatum (Desitin Original) 1 gm TOP DAILY [facility] Last Admin: 05/09/18 11:56 Dose: 1 mg Phytonadione (Vitamin K Tab) 10 mg PO DAILY [facility] Last Admin: 05/09/18 09:12 Dose: 10 mg Propranolol HCl (Inderal) 10 mg PO TID [facility] Last Admin: 05/09/18 09:12 Dose: 10 mg Rifaximin (Xifaxan) 550 mg PO BID [facility]; Protocol Last Admin: 05/09/18 10:04 Dose: 550 mg Sitagliptin Phosphate (Januvia) 25 mg PO DAILY [facility] Last Admin: 05/09/18 09:10 Dose: 25 mg Spironolactone (Aldactone) 25 mg PO BID [facility] Last Admin: 05/09/18 09:10 Dose: 25 mg Thiamine HCl (Vitamin B1 Tab) 200 mg PO TID [facility] Last Admin: 05/09/18 10:04 Dose: 200 mg Zinc Sulfate (Zinc Sulfate 220 Mg Cap) 220 mg PO DAILY [facility] Last Admin: 05/09/18 09:10 Dose: 220 mg - Labs Labs: 05/09/18 06:24 05/09/18 06:24 PT 19.8 SECONDS (9.7-12.2) H 05/06/18 06:22 INR 1.8 05/06/18 06:22 APTT 38 SECONDS (21-34) H 05/06/18 06:22 Attending/Attestation - Attestation I have personally seen and examined this patient.: Yes I have fully participated in the care of the patient.: Yes I have reviewed all pertinent clinical information, including history, physical exam and plan: Yes Notes (Text): 05/09/18 13:13 I have seen and examined patient with GI fellow. No acute events overnight, he is resting in bed comfortably. He admits to recent worsening of depression causing him to resume ETOH consumption. He denies abdominal pain, nausea, vomiting, diarrhea, fever/chills. Tolerating PO diet without difficulty. Decompensated ETOH cirrhosis DM / HTN Depression Lower extremity wound - Low sodium diet as tolerated - Continue with diuretic therapy, monitor electrolytes - Continue with lactulose for HE prevention - Continue antibiotic therapy as per ID - Patient will again need to reestablish period of sobriety prior to consideration of liver transplant evaluation. No further planned GI intervent ion, will sign off case. Please reconsult as necessary, thank you.
[2018-05-09] MEDS: (Novolog) Insulin Aspart, Recombinant 100 u/ml 10 ml vial SC SCH ×4 (08:06→21:36)
[2018-05-09] MEDS: Ciprofloxacin 400mg/200ml D5W 400 MG/200 ML BAG IVPB SCH ×2 (08:07→20:27)
[2018-05-09 09:08] LABS: LYMPHOCYTE 3 % (20-40); MONOCYTE 2 % (0-10); NEUTROPHIL 95 % (50-75); PLATELET ESTIMATE DECREASED (NORMAL); TOTAL CELLS COUNTED 100
[2018-05-09 09:09] LABS: ANISOCYTOSIS SLIGHT; HYPOCHROMIC SLIGHT; OVALOCYTES SLIGHT; POLYCHROMIC SLIGHT
[2018-05-09] MEDS: Magnesium Oxide 400 mg Tab UD PO SCH (09:11)
[2018-05-09] MEDS: Multiple Vitamins Tab PO SCH (09:11)
[2018-05-09] MEDS: Nystatin 100,000 Units/ml Oral Susp 5 ml UD PO SCH ×4 (09:12→21:35)
[2018-05-09] MEDS ORDERED: Pantoprazole 40 mg EC Tab PO SCH (10:00)
[2018-05-09] MEDS: Vancomycin 1 gm/NS 200 ml 1 GM/200 ML BAG IVPB SCH (10:08)
[2018-05-09] MEDS: Piperacill/Tazo 2.25gm in Dex 2.25 GM/50 ML BAG IVPB SCH ×3 (10:10→21:34)
--- NOTE | 2018-05-09 10:59 | PN ---
DATE: 05/09/2018 SUBJECTIVE: The patient was seen by me at 8.30 p.m. On 05/08/2018, patient had an episode of severe confusion but otherwise now he is feeling much better, comfortable. He is in not any distress. He has a leg swelling. The patient was happy that his was seeing him in the ICU today. His vital signs are stable, otherwise. PHYSICAL EXAMINATION: CHEST: Good air entry. ABDOMEN: Obese. EXTREMITIES: Edema noted leg. Swelling on the leg, edema also present. VITAL SIGNS: Otherwise stable, temperature 98.8, pulse 90, blood pressure is 156/88, respiration is 18. HEENT: PERRLA. ASSESSMENT AND PLAN: The patient's wound culture showing the evidence of Staphylococcus aureus as well as Serratia marcescens infection. Currently on intravenous antibiotic. We will continue the current treatment and we will follow up the patient. Damaris Edwards MD
[2018-05-09] MEDS: Zinc Oxide Topical 30 gm Tube TOP SCH (11:56)
--- NOTE | 2018-05-09 13:04 | CP.PCM.PN ---
Subjective - Date & Time of Evaluation Date of Evaluation: 05/09/18 Time of Evaluation: 13:04 - Subjective Subjective: AFEBRILE. REMAINS EXTUBATED. SEMILIQUID DIARRHEA NO GI BLEEDING. MORE RESPONSIVE AND AWAKE ON IV ABX LABS WOUND CULTURES +VE SERRATIA MARSCENS /MSSA S-CIPRO/MERREM/CEFEPIME STOOLS +VE OB . VANC TROUGH 17.5 OK 05/07/18 Objective - Vital Signs/Intake and Output Vital Signs (last 24 hours): Temp Pulse Resp BP Pulse Ox 98.7 F 90 23 178/112 H 100 05/09/18 08:00 05/09/18 11:00 05/09/18 11:00 05/09/18 09:56 05/09/18 07:00 Intake and Output: 05/09/18 05/09/18 06:59 18:59 Intake Total 910 Output Total 1000 Balance -90 - Medications Medications: Current Medications Albuterol/Ipratropium (Duoneb 3 Mg/0.5 Mg (3 Ml) Ud) 3 ml INH RQ6 [facility] Last Admin: 05/09/18 07:10 Dose: 3 ml Ascorbic Acid (Vitamin C 500 Mg Tab) 500 mg PO TID [facility] Last Admin: 05/09/18 09:11 Dose: 500 mg Folic Acid (Folic Acid) 1 mg PO DAILY [facility] Last Admin: 05/09/18 09:22 Dose: 1 mg Furosemide (Lasix) 20 mg IVP Q12 [facility] Last Admin: 05/09/18 09:11 Dose: 20 mg Gabapentin (Neurontin) 100 mg PO TID [facility] Last Admin: 05/09/18 09:10 Dose: 100 mg Vancomycin/Sodium Chloride (Vancomycin 1 Gm/Ns 200 Ml) 1 gm in 200 mls @ 133 mls/hr IVPB DAILY [facility]; Protocol Stop: 05/12/18 22:01 Last Admin: 05/09/18 10:08 Dose: 133 mls/hr Ciprofloxacin (Cipro 400mg/200ml Dsw) 400 mg in 200 mls @ 133 mls/hr IVPB Q12H [facility]; Protocol Last Admin: 05/09/18 08:07 Dose: 133 mls/hr Piperacillin Sod/Tazobactam Sod (Zosyn 2.25 Gm Iv Premix) 2.25 gm in 50 mls @ 100 mls/hr IVPB Q6H [facility]; Protocol Last Admin: 05/09/18 10:10 Dose: 100 mls/hr Insulin Aspart (Novolog) 0 unit SC ACHS [facility]; Protocol Last Admin: 05/09/18 11:57 Dose: 3 u Lactulose (Enulose) 20 gm PO DAILY [facility] Last Admin: 05/09/18 09:23 Dose: Not Given Magnesium Oxide (Mag-Ox) 400 mg PO DAILY [facility] Last Admin: 05/09/18 09:11 Dose: 400 mg Multivitamins (Hexavitamin) 1 tab PO DAILY [facility] Last Admin: 05/09/18 09:11 Dose: 1 tab Nystatin (Nystatin Oral Susp) 5 ml PO QID [facility] Last Admin: 05/09/18 09:12 Dose: 5 ml Petrolatum (Desitin Original) 1 gm TOP DAILY [facility] Last Admin: 05/09/18 11:56 Dose: 1 mg Phytonadione (Vitamin K Tab) 10 mg PO DAILY [facility] Last Admin: 05/09/18 09:12 Dose: 10 mg Propranolol HCl (Inderal) 10 mg PO TID [facility] Last Admin: 05/09/18 09:12 Dose: 10 mg Rifaximin (Xifaxan) 550 mg PO BID [facility]; Protocol Last Admin: 05/09/18 10:04 Dose: 550 mg Sitagliptin Phosphate (Januvia) 25 mg PO DAILY [facility] Last Admin: 05/09/18 09:10 Dose: 25 mg Spironolactone (Aldactone) 25 mg PO BID [facility] Last Admin: 05/09/18 09:10 Dose: 25 mg Thiamine HCl (Vitamin B1 Tab) 200 mg PO TID [facility] Last Admin: 05/09/18 10:04 Dose: 200 mg Zinc Sulfate (Zinc Sulfate 220 Mg Cap) 220 mg PO DAILY [facility] Last Admin: 05/09/18 09:10 Dose: 220 mg - Labs Labs: 05/09/18 06:24 05/09/18 06:24 PT 19.8 SECONDS (9.7-12.2) H 05/06/18 06:22 INR 1.8 05/06/18 06:22 APTT 38 SECONDS (21-34) H 05/06/18 06:22 - Constitutional Appears: No Acute Distress - Head Exam Head Exam: NORMAL INSPECTION - Eye Exam Eye Exam: EOMI, PERRL, Scleral icterus - ENT Exam ENT Exam: Normal Oropharynx - Neck Exam Neck Exam: Normal Inspection - Respiratory Exam Respiratory Exam: Clear to Ausculation Bilateral, NORMAL BREATHING PATTERN - Cardiovascular Exam Cardiovascular Exam: REGULAR RHYTHM, +S1, +S2. absent: Murmur - GI/Abdominal Exam GI & Abdominal Exam: Soft, Tenderness (PERIUMBILICAL.+VE ASCITES), Normal Bowel Sounds - Extremities Exam Extremities Exam: Pedal Edema (RIGHT LEG SUPERFICIAL ULCERATIONS WITH SERO SANGUINOUS DRAINAGE . gENERALIZ SCALY RASH CONSISTENT WITH PSORIASIS. dRESSING IN PLACE LOWER EXTREMITIES.). absent: Calf Tenderness - Neurological Exam Neurological Exam: Awake, CN II-XII Intact, Oriented x3, Reflexes Normal - Psychiatric Exam Psychiatric exam: Normal Mood - Skin Skin Exam: Normal Color, Warm Assessment and Plan (1) Sepsis Status: Acute (2) Abdominal pain Status: Acute (3) Alcohol abuse Status: Acute (4) Leg abrasion Status: Acute (5) Leg edema Status: Acute (6) Psoriasiform dermatitis Status: Acute (7) Alcoholic cirrhosis of liver Status: Chronic (8) Thrombocytopenia concurrent with and due to alcoholism Status: Acute - Assessment and Plan (Free Text) Plan: CONTINUE iv ZOSYN 3.375 iv PIGGYBACK EVERY 8 HOURLY 05/05/18 CONTINUE iv VANCOMYCIN 1 G EVERY 12 HOURLY .05/05/18 FOLLOW-UP VANCO TROUGH PRIOR TO THE FOURTH DOSEAND KEEP BETWEEN 10 AN20. ADDED ON IV CIPRO 400 MG EVERY 12 HOURS 05/08 LOCAL WOUND CARE PER WOUND CARE NURSE. PT FOR CC ON 05/10/18 NOTED.
--- NOTE | 2018-05-09 15:04 | CP.PCM.PN ---
<TrentgeoffreyLeonelOdalis - Last Filed: 05/09/18 16:54> Subjective - Date & Time of Evaluation Date of Evaluation: 05/09/18 Time of Evaluation: 14:54 - Subjective Subjective: Cardiology Follow Up Patient was seen and examined at bedside. Patient denied any chest pain, shortness of breath, or palpitations. Objective - Vital Signs/Intake and Output Vital Signs (last 24 hours): Temp Pulse Resp BP Pulse Ox 98.4 F 90 23 161/104 H 100 05/09/18 13:30 05/09/18 11:00 05/09/18 11:00 05/09/18 13:30 05/09/18 13:30 Intake and Output: 05/09/18 05/09/18 06:59 18:59 Intake Total 910 800 Output Total 1000 800 Balance -90 0 - Medications Medications: Current Medications Albuterol/Ipratropium (Duoneb 3 Mg/0.5 Mg (3 Ml) Ud) 3 ml INH RQ6 [facility] Last Admin: 05/09/18 13:14 Dose: 3 ml Ascorbic Acid (Vitamin C 500 Mg Tab) 500 mg PO TID [facility] Last Admin: 05/09/18 13:43 Dose: 500 mg Folic Acid (Folic Acid) 1 mg PO DAILY [facility] Last Admin: 05/09/18 09:22 Dose: 1 mg Furosemide (Lasix) 20 mg IVP Q12 [facility] Last Admin: 05/09/18 09:11 Dose: 20 mg Gabapentin (Neurontin) 100 mg PO TID [facility] Last Admin: 05/09/18 13:36 Dose: 100 mg Vancomycin/Sodium Chloride (Vancomycin 1 Gm/Ns 200 Ml) 1 gm in 200 mls @ 133 mls/hr IVPB DAILY [facility]; Protocol Stop: 05/12/18 22:01 Last Admin: 05/09/18 10:08 Dose: 133 mls/hr Ciprofloxacin (Cipro 400mg/200ml Dsw) 400 mg in 200 mls @ 133 mls/hr IVPB Q12H [facility]; Protocol Last Admin: 05/09/18 08:07 Dose: 133 mls/hr Piperacillin Sod/Tazobactam Sod (Zosyn 2.25 Gm Iv Premix) 2.25 gm in 50 mls @ 100 mls/hr IVPB Q6H [facility]; Protocol Last Admin: 05/09/18 10:10 Dose: 100 mls/hr Insulin Aspart (Novolog) 0 unit SC ACHS [facility]; Protocol Last Admin: 05/09/18 11:57 Dose: 3 u Lactulose (Enulose) 20 gm PO DAILY [facility] Last Admin: 05/09/18 09:23 Dose: Not Given Magnesium Oxide (Mag-Ox) 400 mg PO DAILY [facility] Last Admin: 05/09/18 09:11 Dose: 400 mg Multivitamins (Hexavitamin) 1 tab PO DAILY [facility] Last Admin: 05/09/18 09:11 Dose: 1 tab Nystatin (Nystatin Oral Susp) 5 ml PO QID [facility] Last Admin: 05/09/18 13:36 Dose: 5 ml Petrolatum (Desitin Original) 0 gm TOP DAILY [facility] Phytonadione (Vitamin K Tab) 10 mg PO DAILY [facility] Last Admin: 05/09/18 09:12 Dose: 10 mg Propranolol HCl (Inderal) 10 mg PO TID [facility] Last Admin: 05/09/18 13:36 Dose: 10 mg Rifaximin (Xifaxan) 550 mg PO BID [facility]; Protocol Last Admin: 05/09/18 10:04 Dose: 550 mg Sitagliptin Phosphate (Januvia) 25 mg PO DAILY [facility] Last Admin: 05/09/18 09:10 Dose: 25 mg Spironolactone (Aldactone) 25 mg PO BID [facility] Last Admin: 05/09/18 09:10 Dose: 25 mg Thiamine HCl (Vitamin B1 Tab) 200 mg PO TID [facility] Last Admin: 05/09/18 13:36 Dose: 200 mg Zinc Sulfate (Zinc Sulfate 220 Mg Cap) 220 mg PO DAILY [facility] Last Admin: 05/09/18 09:10 Dose: 220 mg - Labs Labs: 05/09/18 06:24 05/09/18 06:24 PT 19.8 SECONDS (9.7-12.2) H 05/06/18 06:22 INR 1.8 05/06/18 06:22 APTT 38 SECONDS (21-34) H 05/06/18 06:22 - Constitutional Appears: No Acute Distress - Head Exam Head Exam: NORMAL INSPECTION, NORMOCEPHALIC - Eye Exam Eye Exam: EOMI, PERRL Pupil Exam: NORMAL ACCOMODATION - ENT Exam ENT Exam: Mucous Membranes Moist - Respiratory Exam Respiratory Exam: Clear to Ausculation Bilateral, NORMAL BREATHING PATTERN. absent: Decreased Breath Sounds - Cardiovascular Exam Cardiovascular Exam: +S1, +S2. absent: Murmur - GI/Abdominal Exam GI & Abdominal Exam: Soft, Normal Bowel Sounds. absent: Distended, Tenderness - Extremities Exam Extremities Exam: Normal Inspection. absent: Pedal Edema, Tenderness - Neurological Exam Neurological Exam: Alert, Awake, Oriented x3 - Psychiatric Exam Psychiatric exam: Normal Affect, Normal Mood - Skin Skin Exam: Dry, Intact, Normal Color, Warm Assessment and Plan - Assessment and Plan (Free Text) Plan: NSTEMI Hx of Hypertension, Type 2 Diabetes, Systolic Heart Failure, Cardiomyopathy, Decompensated Alcohol Cirrhosis Imaging: - ECHO: LVEF 36% systolic dysfunction Management: - Plan for cardiac catherization 05/10/18 4pm Case discussed with Odalis Dempsey DO, PGY2 <Wyatt Barajas - Last Filed: 05/09/18 21:31> Objective - Vital Signs/Intake and Output Vital Signs (last 24 hours): Temp Pulse Resp BP Pulse Ox 98.5 F 89 25 H 143/99 H 95 05/09/18 16:00 05/09/18 16:00 05/09/18 16:00 05/09/18 15:25 05/09/18 14:00 Intake and Output: 05/09/18 05/10/18 18:59 06:59 Intake Total 1050 Output Total 1000 Balance 50 - Medications Medications: Current Medications Albuterol/Ipratropium (Duoneb 3 Mg/0.5 Mg (3 Ml) Ud) 3 ml INH RQ6 [facility] Last Admin: 05/09/18 20:38 Dose: Not Given Ascorbic Acid (Vitamin C 500 Mg Tab) 500 mg PO TID [facility] Last Admin: 05/09/18 17:26 Dose: 500 mg Folic Acid (Folic Acid) 1 mg PO DAILY [facility] Last Admin: 05/09/18 09:22 Dose: 1 mg Furosemide (Lasix) 20 mg IVP Q12 [facility] Last Admin: 05/09/18 09:11 Dose: 20 mg Gabapentin (Neurontin) 100 mg PO TID [facility] Last Admin: 05/09/18 17:26 Dose: 100 mg Vancomycin/Sodium Chloride (Vancomycin 1 Gm/Ns 200 Ml) 1 gm in 200 mls @ 133 mls/hr IVPB DAILY [facility]; Protocol Stop: 05/12/18 22:01 Last Admin: 05/09/18 10:08 Dose: 133 mls/hr Ciprofloxacin (Cipro 400mg/200ml Dsw) 400 mg in 200 mls @ 133 mls/hr IVPB Q12H [facility]; Protocol Last Admin: 05/09/18 20:27 Dose: 133 mls/hr Piperacillin Sod/Tazobactam Sod (Zosyn 2.25 Gm Iv Premix) 2.25 gm in 50 mls @ 100 mls/hr IVPB Q6H [facility]; Protocol Last Admin: 05/09/18 15:17 Dose: 100 mls/hr Insulin Aspart (Novolog) 0 unit SC ACHS [facility]; Protocol Last Admin: 05/09/18 16:33 Dose: Not Given Lactulose (Enulose) 20 gm PO DAILY [facility] Last Admin: 05/09/18 09:23 Dose: Not Given Magnesium Oxide (Mag-Ox) 400 mg PO DAILY [facility] Last Admin: 05/09/18 09:11 Dose: 400 mg Multivitamins (Hexavitamin) 1 tab PO DAILY [facility] Last Admin: 05/09/18 09:11 Dose: 1 tab Nystatin (Nystatin Oral Susp) 5 ml PO QID [facility] Last Admin: 05/09/18 17:26 Dose: 5 ml Petrolatum (Desitin Original) 0 gm TOP DAILY [facility] Phytonadione (Vitamin K Tab) 10 mg PO DAILY [facility] Last Admin: 05/09/18 09:12 Dose: 10 mg Propranolol HCl (Inderal) 10 mg PO TID [facility] Last Admin: 05/09/18 17:27 Dose: 10 mg Rifaximin (Xifaxan) 550 mg PO BID [facility]; Protocol Last Admin: 05/09/18 17:26 Dose: 550 mg Sitagliptin Phosphate (Januvia) 25 mg PO DAILY [facility] Last Admin: 05/09/18 09:10 Dose: 25 mg Spironolactone (Aldactone) 25 mg PO BID [facility] Last Admin: 05/09/18 17:26 Dose: 25 mg Thiamine HCl (Vitamin B1 Tab) 200 mg PO TID [facility] Last Admin: 05/09/18 17:27 Dose: 200 mg Zinc Sulfate (Zinc Sulfate 220 Mg Cap) 220 mg PO DAILY [facility] Last Admin: 05/09/18 09:10 Dose: 220 mg - Labs Labs: 05/09/18 06:24 05/09/18 06:24 PT 19.8 SECONDS (9.7-12.2) H 05/06/18 06:22 INR 1.8 05/06/18 06:22 APTT 38 SECONDS (21-34) H 05/06/18 06:22 Assessment and Plan - Assessment and Plan (Free Text) Plan: Patient seen and evaluated personally by me Plan of care d/w the resident and as documented
[2018-05-10] MEDS: Albuterol-Ipratrop 3 mg / 0.5 (3 ml) UD INH SCH ×4 (02:26→20:28)
[2018-05-10] MEDS: Piperacill/Tazo 2.25gm in Dex 2.25 GM/50 ML BAG IVPB SCH ×4 (03:41→22:02)
[2018-05-10 07:00] LABS: HEMOGLOBIN 8.9 g/dL (12.0-18.0); MEAN CELL VOLUME 73.3 fL (80.0-94.0); MEAN CORPUSCULAR HEMOGLOBIN 22.7 pg (27.0-31.0); MEAN CORPUSCULAR HGB CONC 30.9 g/dL (33.0-37.0); MEAN PLATELET VOLUME 8.5 fL (7.2-11.7); RBC 3.93 Mil/uL (4.40-5.90); RED CELL DISTRIBUTION WIDTH 23.2 % (11.5-14.5); WHITE BLOOD COUNT 8.1 K/uL (4.8-10.8)
[2018-05-10 07:12] LABS: INR 1.7; PROTHROMBIN TIME 18.2 SECONDS (9.7-12.2)
[2018-05-10] MEDS: (Novolog) Insulin Aspart, Recombinant 100 u/ml 10 ml vial SC SCH ×4 (07:34→22:03)
[2018-05-10] MEDS: Ciprofloxacin 400mg/200ml D5W 400 MG/200 ML BAG IVPB SCH ×2 (07:37→20:45)
[2018-05-10 07:39] LABS: ALB/GLOB RATIO 0.6 (1.0-2.1); ALBUMIN 2.1 g/dL (3.5-5.0); ALT/SGPT 36 U/L (21-72); AST/SGOT 46 U/L (17-59); BLOOD UREA NITROGEN 21 mg/dL (9-20); CALCIUM 7.4 mg/dl (8.6-10.4); GFR NON-AFRICAN AMERICAN > 60
[2018-05-10] MEDS: Nystatin 100,000 Units/ml Oral Susp 5 ml UD PO SCH ×4 (08:59→22:02)
[2018-05-10] MEDS: Magnesium Oxide 400 mg Tab UD PO SCH (09:00)
[2018-05-10] MEDS: Multiple Vitamins Tab PO SCH (09:01)
[2018-05-10] MEDS: Vancomycin 1 gm/NS 200 ml 1 GM/200 ML BAG IVPB SCH (09:02)
[2018-05-10] MEDS: Zinc Oxide Topical 30 gm Tube TOP SCH (09:02)
[2018-05-10 09:53] LABS: EOS # 0.2 K/uL (0.0-0.7); MONO # 0.9 K/uL (0.0-0.8)
--- NOTE | 2018-05-10 10:30 | PN ---
DATE: 05/09/2018 TIME OF EVALUATION: 8:30 a.m. SUBJECTIVE: The patient is eating the breakfast now. He is comfortable at the time. He is not in any distress, complaining of right leg swelling, pain, and some distress in the right leg, not in any distress otherwise. Abdominal swelling is still noted. He is making urine, swelling in the abdomen and scrotal region also noted. PHYSICAL EXAMINATION: VITAL SIGNS: Temperature is afebrile, pulse 92, blood pressure 134/89, respirations 22, saturation 100%. CHEST: Good air entry. HEART: Regular heart sounds. ABDOMEN: Soft and nontender. EXTREMITIES: The patient has bilateral significant pedal edema. Leg ulcers noted, being managed with wound care, on antibiotic. CENTRAL NERVOUS SYSTEM: Alert, awake, and oriented ASSESSMENT AND PLAN: Currently doing well. The patient will need a midline. He will also need a long-term intravenous antibiotic. I discussed with the patient regarding the plan. The patient is awaiting for bed for the telemetry at this time. Clinically stable otherwise. We will continue the current treatment and we will follow up the patient. Damaris Edwards MD
[2018-05-10] MEDS ORDERED: Verapamil 2 ML ONE (16:29)
[2018-05-10] MEDS ORDERED: Midazolam 2 MG/2 ML VIAL ONE (16:30)
--- NOTE | 2018-05-10 17:34 | CP.PCM.PN ---
Subjective - Date & Time of Evaluation Date of Evaluation: 05/10/18 Time of Evaluation: 17:31 - Subjective Subjective: Patient s/p cardiac cath 1. Normal coronaries 2. EF 25%, dialted non ischemic CMP, EDP 36, no Dialated Non isch CMP (Alcoholic) Add ARB (Losartan 25mg po daily added) DVT/GI prophylaxis Life Vest now and ICD eval after 3 months Objective - Vital Signs/Intake and Output Vital Signs (last 24 hours): Temp Pulse Resp BP Pulse Ox 98.2 F 88 21 137/93 H 100 05/10/18 13:00 05/10/18 13:00 05/10/18 13:00 05/10/18 11:24 05/10/18 07:00 Intake and Output: 05/10/18 05/10/18 06:59 18:59 Intake Total 1540 Output Total 3150 Balance -1610 - Medications Medications: Current Medications Albuterol/Ipratropium (Duoneb 3 Mg/0.5 Mg (3 Ml) Ud) 3 ml INH RQ6 [facility] Last Admin: 05/10/18 08:00 Dose: 3 ml Ascorbic Acid (Vitamin C 500 Mg Tab) 500 mg PO TID [facility] Last Admin: 05/10/18 13:20 Dose: 500 mg Folic Acid (Folic Acid) 1 mg PO DAILY [facility] Last Admin: 05/10/18 09:00 Dose: 1 mg Furosemide (Lasix) 20 mg IVP Q12 [facility] Last Admin: 05/10/18 09:01 Dose: 20 mg Gabapentin (Neurontin) 100 mg PO TID [facility] Last Admin: 05/10/18 13:19 Dose: 100 mg Vancomycin/Sodium Chloride (Vancomycin 1 Gm/Ns 200 Ml) 1 gm in 200 mls @ 133 mls/hr IVPB DAILY [facility]; Protocol Stop: 05/12/18 22:01 Last Admin: 05/10/18 09:02 Dose: 133 mls/hr Ciprofloxacin (Cipro 400mg/200ml Dsw) 400 mg in 200 mls @ 133 mls/hr IVPB Q12H [facility]; Protocol Last Admin: 05/10/18 07:37 Dose: 133 mls/hr Piperacillin Sod/Tazobactam Sod (Zosyn 2.25 Gm Iv Premix) 2.25 gm in 50 mls @ 100 mls/hr IVPB Q6H [facility]; Protocol Last Admin: 05/10/18 08:57 Dose: 100 mls/hr Insulin Aspart (Novolog) 0 unit SC ACHS [facility]; Protocol Last Admin: 05/10/18 11:42 Dose: 2 u Lactulose (Enulose) 20 gm PO DAILY [facility] Last Admin: 05/10/18 09:00 Dose: Not Given Magnesium Oxide (Mag-Ox) 400 mg PO DAILY [facility] Last Admin: 05/10/18 09:00 Dose: 400 mg Multivitamins (Hexavitamin) 1 tab PO DAILY [facility] Last Admin: 05/10/18 09:01 Dose: 1 tab Nystatin (Nystatin Oral Susp) 5 ml PO QID [facility] Last Admin: 05/10/18 13:19 Dose: 5 ml Petrolatum (Desitin Original) 0 gm TOP DAILY [facility] Last Admin: 05/10/18 09:02 Dose: 1 unit Phytonadione (Vitamin K Tab) 10 mg PO DAILY [facility] Last Admin: 05/10/18 08:59 Dose: 10 mg Propranolol HCl (Inderal) 10 mg PO TID [facility] Last Admin: 05/10/18 13:19 Dose: 10 mg Rifaximin (Xifaxan) 550 mg PO BID [facility]; Protocol Last Admin: 05/10/18 09:00 Dose: 550 mg Sitagliptin Phosphate (Januvia) 25 mg PO DAILY [facility] Last Admin: 05/10/18 09:00 Dose: 25 mg Spironolactone (Aldactone) 25 mg PO BID [facility] Last Admin: 05/10/18 09:00 Dose: 25 mg Thiamine HCl (Vitamin B1 Tab) 200 mg PO TID [facility] Last Admin: 05/10/18 13:19 Dose: 200 mg Zinc Sulfate (Zinc Sulfate 220 Mg Cap) 220 mg PO DAILY [facility] Last Admin: 05/10/18 09:00 Dose: 220 mg - Labs Labs: 05/10/18 06:56 05/10/18 06:56 PT 18.2 SECONDS (9.7-12.2) H 05/10/18 06:56 INR 1.7 05/10/18 06:56 APTT 38 SECONDS (21-34) H 05/06/18 06:22
--- NOTE | 2018-05-10 20:32 | CP.PCM.PN ---
Subjective - Date & Time of Evaluation Date of Evaluation: 05/10/18 Time of Evaluation: 20:32 - Subjective Subjective: S/P CC. FINDINGS NOTED. OFFERS NO COMPLAINTS. ON IV ABX Objective - Vital Signs/Intake and Output Vital Signs (last 24 hours): Temp Pulse Resp BP Pulse Ox 98.2 F 88 21 137/93 H 100 05/10/18 13:00 05/10/18 13:00 05/10/18 13:00 05/10/18 11:24 05/10/18 07:00 Intake and Output: 05/10/18 05/11/18 18:59 06:59 Intake Total 1540 Output Total 3950 Balance -2410 - Medications Medications: Current Medications Albuterol/Ipratropium (Duoneb 3 Mg/0.5 Mg (3 Ml) Ud) 3 ml INH RQ6 [facility] Last Admin: 05/10/18 20:28 Dose: 3 ml Ascorbic Acid (Vitamin C 500 Mg Tab) 500 mg PO TID [facility] Last Admin: 05/10/18 18:00 Dose: Not Given Folic Acid (Folic Acid) 1 mg PO DAILY [facility] Last Admin: 05/10/18 09:00 Dose: 1 mg Furosemide (Lasix) 20 mg IVP Q12 [facility] Last Admin: 05/10/18 09:01 Dose: 20 mg Gabapentin (Neurontin) 100 mg PO TID [facility] Last Admin: 05/10/18 18:00 Dose: Not Given Vancomycin/Sodium Chloride (Vancomycin 1 Gm/Ns 200 Ml) 1 gm in 200 mls @ 133 mls/hr IVPB DAILY [facility]; Protocol Stop: 05/12/18 22:01 Last Admin: 05/10/18 09:02 Dose: 133 mls/hr Ciprofloxacin (Cipro 400mg/200ml Dsw) 400 mg in 200 mls @ 133 mls/hr IVPB Q12H [facility]; Protocol Last Admin: 05/10/18 07:37 Dose: 133 mls/hr Piperacillin Sod/Tazobactam Sod (Zosyn 2.25 Gm Iv Premix) 2.25 gm in 50 mls @ 100 mls/hr IVPB Q6H [facility]; Protocol Last Admin: 05/10/18 19:06 Dose: Not Given Insulin Aspart (Novolog) 0 unit SC ACHS [facility]; Protocol Last Admin: 05/10/18 16:30 Dose: Not Given Lactulose (Enulose) 20 gm PO DAILY [facility] Last Admin: 05/10/18 09:00 Dose: Not Given Losartan Potassium (Cozaar) 25 mg PO DAILY [facility] Magnesium Oxide (Mag-Ox) 400 mg PO DAILY [facility] Last Admin: 05/10/18 09:00 Dose: 400 mg Multivitamins (Hexavitamin) 1 tab PO DAILY [facility] Last Admin: 05/10/18 09:01 Dose: 1 tab Nystatin (Nystatin Oral Susp) 5 ml PO QID [facility] Last Admin: 05/10/18 18:00 Dose: Not Given Petrolatum (Desitin Original) 0 gm TOP DAILY [facility] Last Admin: 05/10/18 09:02 Dose: 1 unit Phytonadione (Vitamin K Tab) 10 mg PO DAILY [facility] Last Admin: 05/10/18 08:59 Dose: 10 mg Propranolol HCl (Inderal) 10 mg PO TID [facility] Last Admin: 05/10/18 18:00 Dose: Not Given Rifaximin (Xifaxan) 550 mg PO BID [facility]; Protocol Last Admin: 05/10/18 18:00 Dose: Not Given Sitagliptin Phosphate (Januvia) 25 mg PO DAILY [facility] Last Admin: 05/10/18 09:00 Dose: 25 mg Spironolactone (Aldactone) 25 mg PO BID [facility] Last Admin: 05/10/18 18:00 Dose: Not Given Thiamine HCl (Vitamin B1 Tab) 200 mg PO TID [facility] Last Admin: 05/10/18 18:00 Dose: Not Given Zinc Sulfate (Zinc Sulfate 220 Mg Cap) 220 mg PO DAILY [facility] Last Admin: 05/10/18 09:00 Dose: 220 mg - Labs Labs: 05/10/18 06:56 05/10/18 06:56 PT 18.2 SECONDS (9.7-12.2) H 05/10/18 06:56 INR 1.7 05/10/18 06:56 APTT 38 SECONDS (21-34) H 05/06/18 06:22 - Constitutional Appears: No Acute Distress - Head Exam Head Exam: NORMAL INSPECTION - Eye Exam Eye Exam: EOMI, PERRL, Scleral icterus - ENT Exam ENT Exam: Normal Oropharynx - Neck Exam Neck Exam: Normal Inspection - Cardiovascular Exam Cardiovascular Exam: REGULAR RHYTHM, +S1, +S2 - GI/Abdominal Exam GI & Abdominal Exam: Soft, Tenderness (EPIGASTRIUM), Normal Bowel Sounds - Extremities Exam Extremities Exam: Pedal Edema. absent: Calf Tenderness - Neurological Exam Neurological Exam: Awake, CN II-XII Intact, Oriented x3, Reflexes Normal - Skin Skin Exam: Normal Color, Warm (B/L LE EDEMA +VE DRESSING RT LE.) Assessment and Plan (1) Sepsis Status: Acute (2) Abdominal pain Status: Acute (3) Alcohol abuse Status: Acute (4) Leg abrasion Status: Acute (5) Leg edema Status: Acute (6) Psoriasiform dermatitis Status: Acute (7) Alcoholic cirrhosis of liver Status: Chronic (8) Thrombocytopenia concurrent with and due to alcoholism Status: Acute - Assessment and Plan (Free Text) Plan: CONTINUE iv ZOSYN 3.375 iv PIGGYBACK EVERY 8 HOURLY 05/05/18 CONTINUE iv VANCOMYCIN 1 G EVERY 12 HOURLY .05/05/18 FOLLOW-UP VANCO TROUGH PRIOR TO THE FOURTH DOSEAND KEEP BETWEEN 10 AN20. ADDED ON IV CIPRO 400 MG EVERY 12 HOURS 05/08 LOCAL WOUND CARE PER WOUND CARE NURSE.
[2018-05-11] MEDS: Albuterol-Ipratrop 3 mg / 0.5 (3 ml) UD INH SCH ×4 (01:08→19:13)
[2018-05-11] MEDS: Piperacill/Tazo 2.25gm in Dex 2.25 GM/50 ML BAG IVPB SCH ×4 (03:43→21:28)
[2018-05-11 05:51] LABS: BASO % 0.3 % (0.0-2.0); EOS # 0.2 K/uL (0.0-0.7); EOS % 4.5 % (0.0-4.0); HEMOGLOBIN 8.5 g/dL (12.0-18.0); LYMPH # 1.2 K/uL (1.0-4.3); LYMPH % 22.5 % (20.0-40.0); MEAN CELL VOLUME 73.3 fL (80.0-94.0); MEAN CORPUSCULAR HEMOGLOBIN 23.4 pg (27.0-31.0); MEAN PLATELET VOLUME 8.6 fL (7.2-11.7); MONO # 0.6 K/uL (0.0-0.8); MONO % 11.8 % (0.0-10.0); NEUT # 3.3 K/uL (1.8-7.0); NEUT % 60.9 % (50.0-75.0); RBC 3.62 Mil/uL (4.40-5.90); RED CELL DISTRIBUTION WIDTH 24.8 % (11.5-14.5); WHITE BLOOD COUNT 5.4 K/uL (4.8-10.8)
[2018-05-11 06:09] LABS: INR 1.6
[2018-05-11 06:32] LABS: ALB/GLOB RATIO 0.6 (1.0-2.1); ALT/SGPT 33 U/L (21-72); AST/SGOT 34 U/L (17-59); BLOOD UREA NITROGEN 19 mg/dL (9-20); CALCIUM 7.8 mg/dl (8.6-10.4); GFR NON-AFRICAN AMERICAN > 60
[2018-05-11] MEDS: (Novolog) Insulin Aspart, Recombinant 100 u/ml 10 ml vial SC SCH ×4 (08:30→21:28)
[2018-05-11] MEDS: Ciprofloxacin 400mg/200ml D5W 400 MG/200 ML BAG IVPB SCH ×2 (08:30→19:42)
--- NOTE | 2018-05-11 09:32 | CP.PCM.PN ---
<TrentgeoffreyLee Anna - Last Filed: 05/11/18 09:30> Subjective - Date & Time of Evaluation Date of Evaluation: 05/11/18 Time of Evaluation: 09:30 - Subjective Subjective: Cardiology Follow Up Patient was seen and examined at bedside. Patient denied any chest pain, shortness of breath, or palpitations. Objective - Vital Signs/Intake and Output Vital Signs (last 24 hours): Temp Pulse Resp BP Pulse Ox 98 F 87 15 159/94 H 100 05/11/18 04:00 05/11/18 04:00 05/11/18 04:00 05/11/18 03:25 05/10/18 21:00 Intake and Output: 05/11/18 05/11/18 06:59 18:59 Intake Total 500 Output Total 2900 Balance -2400 - Medications Medications: Current Medications Albuterol/Ipratropium (Duoneb 3 Mg/0.5 Mg (3 Ml) Ud) 3 ml INH RQ6 [facility] Last Admin: 05/11/18 07:20 Dose: 3 ml Ascorbic Acid (Vitamin C 500 Mg Tab) 500 mg PO TID [facility] Last Admin: 05/10/18 18:00 Dose: Not Given Folic Acid (Folic Acid) 1 mg PO DAILY [facility] Last Admin: 05/10/18 09:00 Dose: 1 mg Furosemide (Lasix) 20 mg IVP Q12 [facility] Last Admin: 05/10/18 22:02 Dose: 20 mg Gabapentin (Neurontin) 100 mg PO TID [facility] Last Admin: 05/10/18 18:00 Dose: Not Given Vancomycin/Sodium Chloride (Vancomycin 1 Gm/Ns 200 Ml) 1 gm in 200 mls @ 133 mls/hr IVPB DAILY [facility]; Protocol Stop: 05/12/18 22:01 Last Admin: 05/10/18 09:02 Dose: 133 mls/hr Ciprofloxacin (Cipro 400mg/200ml Dsw) 400 mg in 200 mls @ 133 mls/hr IVPB Q12H [facility]; Protocol Last Admin: 05/11/18 08:30 Dose: 133 mls/hr Piperacillin Sod/Tazobactam Sod (Zosyn 2.25 Gm Iv Premix) 2.25 gm in 50 mls @ 100 mls/hr IVPB Q6H [facility]; Protocol Last Admin: 05/11/18 08:30 Dose: 100 mls/hr Insulin Aspart (Novolog) 0 unit SC ACHS [facility]; Protocol Last Admin: 05/11/18 08:30 Dose: Not Given Lactulose (Enulose) 20 gm PO DAILY [facility] Last Admin: 05/10/18 09:00 Dose: Not Given Losartan Potassium (Cozaar) 25 mg PO DAILY [facility] Magnesium Oxide (Mag-Ox) 400 mg PO DAILY [facility] Last Admin: 05/10/18 09:00 Dose: 400 mg Multivitamins (Hexavitamin) 1 tab PO DAILY [facility] Last Admin: 05/10/18 09:01 Dose: 1 tab Nystatin (Nystatin Oral Susp) 5 ml PO QID [facility] Last Admin: 05/10/18 22:02 Dose: 5 ml Petrolatum (Desitin Original) 0 gm TOP DAILY [facility] Last Admin: 05/10/18 09:02 Dose: 1 unit Phytonadione (Vitamin K Tab) 10 mg PO DAILY [facility] Last Admin: 05/10/18 08:59 Dose: 10 mg Propranolol HCl (Inderal) 10 mg PO TID [facility] Last Admin: 05/10/18 18:00 Dose: Not Given Rifaximin (Xifaxan) 550 mg PO BID [facility]; Protocol Last Admin: 05/10/18 18:00 Dose: Not Given Sitagliptin Phosphate (Januvia) 25 mg PO DAILY [facility] Last Admin: 05/10/18 09:00 Dose: 25 mg Spironolactone (Aldactone) 25 mg PO BID [facility] Last Admin: 05/10/18 18:00 Dose: Not Given Thiamine HCl (Vitamin B1 Tab) 200 mg PO TID [facility] Last Admin: 05/10/18 18:00 Dose: Not Given Zinc Sulfate (Zinc Sulfate 220 Mg Cap) 220 mg PO DAILY [facility] Last Admin: 05/10/18 09:00 Dose: 220 mg - Labs Labs: 05/11/18 05:42 05/11/18 05:42 PT 18.0 SECONDS (9.7-12.2) H 05/11/18 05:42 INR 1.6 05/11/18 05:42 APTT 38 SECONDS (21-34) H 05/06/18 06:22 - Additional Findings Additional findings: - Constitutional Appears: No Acute Distress - Head Exam Head Exam: NORMAL INSPECTION, NORMOCEPHALIC - Eye Exam Eye Exam: EOMI, PERRL Pupil Exam: NORMAL ACCOMODATION - ENT Exam ENT Exam: Mucous Membranes Moist - Respiratory Exam Respiratory Exam: Clear to Ausculation Bilateral, NORMAL BREATHING PATTERN. absent: Decreased Breath Sounds - Cardiovascular Exam Cardiovascular Exam: +S1, +S2. absent: Murmur - GI/Abdominal Exam GI & Abdominal Exam: Soft, Normal Bowel Sounds. absent: Distended, Tenderness - Extremities Exam Extremities Exam: Normal Inspection. absent: Pedal Edema, Tenderness - Neurological Exam Neurological Exam: Alert, Awake, Oriented x3 - Psychiatric Exam Psychiatric exam: Normal Affect, Normal Mood - Skin Skin Exam: Dry, Intact, Normal Color, Warm Assessment and Plan - Assessment and Plan (Free Text) Plan: NSTEMI Hx of Hypertension, Type 2 Diabetes, Systolic Heart Failure, Dilated, Nonishemic Cardiomyopathy, Decompensated Alcohol Cirrhosis Imaging: - ECHO: LVEF 36% systolic dysfunction - S/P Cardiac Catherization: 1. Normal coronaries 2. EF 25%, dialted non ischemic CMP, EDP 36, no Management: - Continue with Losartan 25mg PO daily - Patient is for Life Vest now, ICD eval after 3 months Case discussed with Dr. Barajas, Odalis Brown DO, PGY2 <Wyatt Barajas - Last Filed: 05/11/18 22:16> Objective - Vital Signs/Intake and Output Vital Signs (last 24 hours): Temp Pulse Resp BP Pulse Ox 97.1 F L 91 H 18 137/95 H 100 05/11/18 18:22 05/11/18 17:00 05/11/18 18:22 05/11/18 21:27 05/11/18 11:00 Intake and Output: 05/11/18 05/12/18 18:59 06:59 Intake Total 1300 Output Total 1300 Balance 0 - Medications Medications: Current Medications Albuterol/Ipratropium (Duoneb 3 Mg/0.5 Mg (3 Ml) Ud) 3 ml INH RQ6 [facility] Last Admin: 05/11/18 19:13 Dose: Not Given Ascorbic Acid (Vitamin C 500 Mg Tab) 500 mg PO TID [facility] Last Admin: 05/11/18 18:36 Dose: 500 mg Folic Acid (Folic Acid) 1 mg PO DAILY [facility] Last Admin: 05/11/18 11:12 Dose: 1 mg Furosemide (Lasix) 20 mg IVP Q12 [facility] Last Admin: 05/11/18 21:27 Dose: 20 mg Gabapentin (Neurontin) 100 mg PO TID [facility] Last Admin: 05/11/18 18:36 Dose: 100 mg Vancomycin/Sodium Chloride (Vancomycin 1 Gm/Ns 200 Ml) 1 gm in 200 mls @ 133 mls/hr IVPB DAILY [facility]; Protocol Stop: 05/12/18 22:01 Last Admin: 05/11/18 11:10 Dose: 133 mls/hr Ciprofloxacin (Cipro 400mg/200ml Dsw) 400 mg in 200 mls @ 133 mls/hr IVPB Q12H [facility]; Protocol Last Admin: 05/11/18 19:42 Dose: 133 mls/hr Piperacillin Sod/Tazobactam Sod (Zosyn 2.25 Gm Iv Premix) 2.25 gm in 50 mls @ 100 mls/hr IVPB Q6H [facility]; Protocol Last Admin: 05/11/18 21:28 Dose: 100 mls/hr Insulin Aspart (Novolog) 0 unit SC ACHS [facility]; Protocol Last Admin: 05/11/18 21:28 Dose: Not Given Lactulose (Enulose) 20 gm PO DAILY [facility] Last Admin: 05/11/18 11:11 Dose: Not Given Losartan Potassium (Cozaar) 25 mg PO DAILY [facility] Last Admin: 05/11/18 11:11 Dose: 25 mg Magnesium Oxide (Mag-Ox) 400 mg PO DAILY [facility] Last Admin: 05/11/18 11:11 Dose: 400 mg Multivitamins (Hexavitamin) 1 tab PO DAILY [facility] Last Admin: 05/11/18 11:10 Dose: 1 tab Nystatin (Nystatin Oral Susp) 5 ml PO QID [facility] Last Admin: 05/11/18 21:27 Dose: 5 ml Petrolatum (Desitin Original) 0 gm TOP DAILY [facility] Last Admin: 05/11/18 15:14 Dose: 1 unit Phytonadione (Vitamin K Tab) 10 mg PO DAILY [facility] Last Admin: 05/11/18 11:12 Dose: 10 mg Propranolol HCl (Inderal) 10 mg PO TID [facility] Last Admin: 05/11/18 18:37 Dose: 10 mg Rifaximin (Xifaxan) 550 mg PO BID [facility]; Protocol Last Admin: 05/11/18 18:36 Dose: 550 mg Sitagliptin Phosphate (Januvia) 25 mg PO DAILY [facility] Last Admin: 05/11/18 11:11 Dose: 25 mg Spironolactone (Aldactone) 25 mg PO BID [facility] Last Admin: 05/11/18 18:36 Dose: 25 mg Thiamine HCl (Vitamin B1 Tab) 200 mg PO TID [facility] Last Admin: 05/11/18 18:36 Dose: 200 mg Zinc Sulfate (Zinc Sulfate 220 Mg Cap) 220 mg PO DAILY [facility] Last Admin: 05/11/18 11:11 Dose: 220 mg - Labs Labs: 05/11/18 05:42 05/11/18 05:42 PT 18.0 SECONDS (9.7-12.2) H 05/11/18 05:42 INR 1.6 05/11/18 05:42 APTT 38 SECONDS (21-34) H 05/06/18 06:22 Assessment and Plan - Assessment and Plan (Free Text) Plan: patient seen and evaluated personally by me Plan of care d/w the biomedical photographer and as documented
[2018-05-11] MEDS: Multiple Vitamins Tab PO SCH (11:10)
[2018-05-11] MEDS: Vancomycin 1 gm/NS 200 ml 1 GM/200 ML BAG IVPB SCH (11:10)
[2018-05-11] MEDS: Magnesium Oxide 400 mg Tab UD PO SCH (11:11)
[2018-05-11] MEDS: Nystatin 100,000 Units/ml Oral Susp 5 ml UD PO SCH ×4 (11:11→21:27)
[2018-05-11] MEDS: Zinc Oxide Topical 30 gm Tube TOP SCH (15:14)
--- NOTE | 2018-05-11 20:37 | CP.PCM.PN ---
Subjective - Date & Time of Evaluation Date of Evaluation: 05/11/18 Time of Evaluation: 20:37 - Subjective Subjective: AFEBRILE, AWAKE AND ALERT OFFERS NO NEW COMPLAINTS. DENIES SHORTNESS OF BREATH OR CHEST PAIN. GENERALIZED ANASARCA SCALY RASH OF PSORIASIS SCATTERED PATCHES ON ARMS LOWER EXTREMITIES, ABDOMEN,AND TRUNK. RT. LE +DRESSING IN PLACE. Objective - Vital Signs/Intake and Output Vital Signs (last 24 hours): Temp Pulse Resp BP Pulse Ox 97.1 F L 91 H 18 129/80 100 05/11/18 18:22 05/11/18 17:00 05/11/18 18:22 05/11/18 15:25 05/11/18 11:00 Intake and Output: 05/11/18 05/12/18 18:59 06:59 Intake Total 1300 Output Total 1300 Balance 0 - Medications Medications: Current Medications Albuterol/Ipratropium (Duoneb 3 Mg/0.5 Mg (3 Ml) Ud) 3 ml INH RQ6 [facility] Last Admin: 05/11/18 19:13 Dose: Not Given Ascorbic Acid (Vitamin C 500 Mg Tab) 500 mg PO TID [facility] Last Admin: 05/11/18 18:36 Dose: 500 mg Folic Acid (Folic Acid) 1 mg PO DAILY [facility] Last Admin: 05/11/18 11:12 Dose: 1 mg Furosemide (Lasix) 20 mg IVP Q12 [facility] Last Admin: 05/11/18 11:12 Dose: 20 mg Gabapentin (Neurontin) 100 mg PO TID [facility] Last Admin: 05/11/18 18:36 Dose: 100 mg Vancomycin/Sodium Chloride (Vancomycin 1 Gm/Ns 200 Ml) 1 gm in 200 mls @ 133 mls/hr IVPB DAILY [facility]; Protocol Stop: 05/12/18 22:01 Last Admin: 05/11/18 11:10 Dose: 133 mls/hr Ciprofloxacin (Cipro 400mg/200ml Dsw) 400 mg in 200 mls @ 133 mls/hr IVPB Q12H [facility]; Protocol Last Admin: 05/11/18 19:42 Dose: 133 mls/hr Piperacillin Sod/Tazobactam Sod (Zosyn 2.25 Gm Iv Premix) 2.25 gm in 50 mls @ 100 mls/hr IVPB Q6H [facility]; Protocol Last Admin: 05/11/18 15:13 Dose: 100 mls/hr Insulin Aspart (Novolog) 0 unit SC ACHS [facility]; Protocol Last Admin: 05/11/18 18:37 Dose: Not Given Lactulose (Enulose) 20 gm PO DAILY [facility] Last Admin: 05/11/18 11:11 Dose: Not Given Losartan Potassium (Cozaar) 25 mg PO DAILY [facility] Last Admin: 05/11/18 11:11 Dose: 25 mg Magnesium Oxide (Mag-Ox) 400 mg PO DAILY [facility] Last Admin: 05/11/18 11:11 Dose: 400 mg Multivitamins (Hexavitamin) 1 tab PO DAILY [facility] Last Admin: 05/11/18 11:10 Dose: 1 tab Nystatin (Nystatin Oral Susp) 5 ml PO QID [facility] Last Admin: 05/11/18 18:36 Dose: 5 ml Petrolatum (Desitin Original) 0 gm TOP DAILY [facility] Last Admin: 05/11/18 15:14 Dose: 1 unit Phytonadione (Vitamin K Tab) 10 mg PO DAILY [facility] Last Admin: 05/11/18 11:12 Dose: 10 mg Propranolol HCl (Inderal) 10 mg PO TID [facility] Last Admin: 05/11/18 18:37 Dose: 10 mg Rifaximin (Xifaxan) 550 mg PO BID [facility]; Protocol Last Admin: 05/11/18 18:36 Dose: 550 mg Sitagliptin Phosphate (Januvia) 25 mg PO DAILY [facility] Last Admin: 05/11/18 11:11 Dose: 25 mg Spironolactone (Aldactone) 25 mg PO BID [facility] Last Admin: 05/11/18 18:36 Dose: 25 mg Thiamine HCl (Vitamin B1 Tab) 200 mg PO TID [facility] Last Admin: 05/11/18 18:36 Dose: 200 mg Zinc Sulfate (Zinc Sulfate 220 Mg Cap) 220 mg PO DAILY [facility] Last Admin: 05/11/18 11:11 Dose: 220 mg - Labs Labs: 05/11/18 05:42 05/11/18 05:42 PT 18.0 SECONDS (9.7-12.2) H 05/11/18 05:42 INR 1.6 05/11/18 05:42 APTT 38 SECONDS (21-34) H 05/06/18 06:22 - Constitutional Appears: No Acute Distress - Head Exam Head Exam: NORMAL INSPECTION - Eye Exam Eye Exam: EOMI, PERRL, Scleral icterus - ENT Exam ENT Exam: Normal Oropharynx - Neck Exam Neck Exam: Normal Inspection - Respiratory Exam Respiratory Exam: Decreased Breath Sounds, NORMAL BREATHING PATTERN - Cardiovascular Exam Cardiovascular Exam: Tachycardia, Irregular Rhythm, +S1, +S2 - GI/Abdominal Exam GI & Abdominal Exam: Soft, Normal Bowel Sounds. absent: Tenderness - Extremities Exam Extremities Exam: Pedal Edema (2+. RT LE POSITIVE DRESSING IN PLACE.). absent: Calf Tenderness - Psychiatric Exam Psychiatric exam: Normal Mood - Skin Skin Exam: Dry, Normal Color, Warm Assessment and Plan (1) Sepsis Status: Acute (2) Abdominal pain Status: Acute (3) Alcohol abuse Status: Acute (4) Leg abrasion Status: Acute (5) Leg edema Status: Acute (6) Psoriasiform dermatitis Status: Acute (7) Alcoholic cirrhosis of liver Status: Chronic (8) Thrombocytopenia concurrent with and due to alcoholism Status: Acute - Assessment and Plan (Free Text) Plan: CONTINUE iv ZOSYN 3.375 iv PIGGYBACK EVERY 8 HOURLY 05/05/18 CONTINUE iv VANCOMYCIN 1 G EVERY 12 HOURLY .05/05/18 ADDED ON IV CIPRO 400 MG EVERY 12 HOURS 05/08 LOCAL WOUND CARE PER WOUND CARE NURSE. PER CARDIOLOGY.
[2018-05-12] MEDS: Albuterol-Ipratrop 3 mg / 0.5 (3 ml) UD INH SCH ×4 (01:50→19:14)
[2018-05-12] MEDS: Piperacill/Tazo 2.25gm in Dex 2.25 GM/50 ML BAG IVPB SCH ×4 (03:08→22:04)
[2018-05-12] MEDS: Ciprofloxacin 400mg/200ml D5W 400 MG/200 ML BAG IVPB SCH ×2 (07:41→19:43)
[2018-05-12] MEDS: Multiple Vitamins Tab PO SCH (09:39)
[2018-05-12] MEDS: Vancomycin 1 gm/NS 200 ml 1 GM/200 ML BAG IVPB SCH (09:39)
[2018-05-12] MEDS: Nystatin 100,000 Units/ml Oral Susp 5 ml UD PO SCH ×4 (09:39→22:05)
[2018-05-12] MEDS: Magnesium Oxide 400 mg Tab UD PO SCH (09:40)
[2018-05-12] MEDS: (Novolog) Insulin Aspart, Recombinant 100 u/ml 10 ml vial SC SCH ×4 (12:41→21:53)
--- NOTE | 2018-05-12 13:34 | PN ---
DATE: 05/11/2018 SUBJECTIVE: The patient is still in the Intensive Care Unit in bed #17, comfortable. The patient is not in any distress. He is feeling extremely hungry. Swelling in the legs is much better now. He is also feeling much better, but he has abdominal distention also. Denies any nausea or vomiting. PHYSICAL EXAMINATION: VITAL SIGNS: Temperature is afebrile. Pulse is 99, blood pressure 154/90, saturation is 100%. CHEST: Good air entry. ABDOMEN: Abdominal distention present. ASSESSMENT: This 42-year-old male with alcoholism and alcoholic liver disease associated with ascites, associated history of variceal bleeding, psoriasis, recurrent psoriatic skin lesions and right leg ulcer, sepsis, septic shock, history of diabetes, now having associated alcoholic cardiomyopathy, associated with the ejection fraction of 25%, needing LifeVest and a possible implantable cardioverter defibrillator placement, but the patient is having increasing skin infection and contributing to his overall illness. Overall prognosis is poor. I spoke to the patient in detail and we will follow up the patient. Damaris Edwards MD
--- NOTE | 2018-05-12 14:01 | PN ---
DATE: 05/12/2018 SUBJECTIVE: The patient today is still in the ICU, bed #17. He is sitting comfortably, not in any distress. PHYSICAL EXAMINATION: VITAL SIGNS: Noted today. Afebrile. Blood pressure is 122/73, saturation is 100%. CHEST: Good air entry. No wheezing or rales noted. HEART: Regular heart sounds. ABDOMEN: Nontender. LABORATORY DATA: The patient's labs yesterday reviewed, today labs is currently pending. ASSESSMENT AND PLAN: Clinical examination is unremarkable, otherwise bilateral leg edema, right leg ulcers, dressing of the wound is being done on a daily basis. Currently, the patient is on multiple medications including Aldactone, ciprofloxacin, Cozaar 25 mg, DuoNeb, lactulose, folic acid, multivitamin, propranolol, Januvia, Lasix, magnesium, insulin, vancomycin, thiamine, ascorbic acid, rifaximin, zinc, and Zosyn. The patient will be continued to be seen by Cardiology and Infectious Disease, out of bed to chair, physical therapy. The patient might need rehab evaluation and we will follow up the patient. Damaris Edwards MD
--- NOTE | 2018-05-12 14:07 | PN ---
DATE: 05/12/2018 SUBJECTIVE: The patient was seen by me on 03/10/2018. The patient postcardiac cath seen in the PACU. He is comfortable. The patient is not feeling any pain. No vomiting, but he is currently n.p.o. The patient underwent angiogram through the right radial artery by Dr. Barajas. Cardiac cath showing evidence of normal coronaries. Ejection fraction is 25% dilated, nonischemic secondary to possibly alcoholism. The patient recommended to have LifeVest support and possible ICD evaluation after three months as per the Cardiology. I explained to the patient regarding the plan and we will continue to monitor and we will follow up the patient. Damaris Edwards MD
[2018-05-12] MEDS: Zinc Oxide Topical 30 gm Tube TOP SCH (14:41)
[2018-05-12 16:40] LABS: ALB/GLOB RATIO 0.6 (1.0-2.1); ALBUMIN 2.1 g/dL (3.5-5.0); ALT/SGPT 26 U/L (21-72); AST/SGOT 35 U/L (17-59); BLOOD UREA NITROGEN 15 mg/dL (9-20); CALCIUM 8.2 mg/dl (8.6-10.4); GFR NON-AFRICAN AMERICAN > 60
--- NOTE | 2018-05-12 23:43 | CP.PCM.PN ---
Subjective - Date & Time of Evaluation Date of Evaluation: 05/12/18 Time of Evaluation: 23:42 - Subjective Subjective: AFEBRILE, AWAKE AND ALERT OFFERS NO NEW COMPLAINTS. DENIES SHORTNESS OF BREATH OR CHEST PAIN. sitting on side of bed. APPETITE BETTER. RT. LE IMPROVING RASH . Objective - Vital Signs/Intake and Output Vital Signs (last 24 hours): Temp Pulse Resp BP Pulse Ox 97.8 F 89 22 159/97 H 100 05/12/18 18:00 05/12/18 22:30 05/12/18 22:30 05/12/18 22:30 05/11/18 11:00 Intake and Output: 05/12/18 05/13/18 18:59 06:59 Intake Total 750 Output Total 700 Balance 50 - Medications Medications: Current Medications Albuterol/Ipratropium (Duoneb 3 Mg/0.5 Mg (3 Ml) Ud) 3 ml INH RQ6 FLY Last Admin: 05/12/18 19:14 Dose: Not Given Ascorbic Acid (Vitamin C 500 Mg Tab) 500 mg PO TID [facility]Y Last Admin: 05/12/18 19:02 Dose: 500 mg Folic Acid (Folic Acid) 1 mg PO DAILY [facility] Last Admin: 05/12/18 09:40 Dose: 1 mg Furosemide (Lasix) 20 mg PO Q12 [facility] Last Admin: 05/12/18 22:04 Dose: 20 mg Ciprofloxacin (Cipro 400mg/200ml Dsw) 400 mg in 200 mls @ 133 mls/hr IVPB Q12H [facility]; Protocol Last Admin: 05/12/18 19:43 Dose: 133 mls/hr Piperacillin Sod/Tazobactam Sod (Zosyn 2.25 Gm Iv Premix) 2.25 gm in 50 mls @ 100 mls/hr IVPB Q6H [facility]; Protocol Last Admin: 05/12/18 22:04 Dose: 100 mls/hr Insulin Aspart (Novolog) 0 unit SC ACHS [facility]; Protocol Last Admin: 05/12/18 21:53 Dose: Not Given Lactulose (Enulose) 20 gm PO DAILY [facility] Last Admin: 05/12/18 09:41 Dose: Not Given Losartan Potassium (Cozaar) 25 mg PO DAILY [facility] Last Admin: 05/12/18 09:40 Dose: 25 mg Magnesium Oxide (Mag-Ox) 400 mg PO DAILY [facility] Last Admin: 05/12/18 09:40 Dose: 400 mg Multivitamins (Hexavitamin) 1 tab PO DAILY [facility] Last Admin: 05/12/18 09:39 Dose: 1 tab Nystatin (Nystatin Oral Susp) 5 ml PO QID [facility] Last Admin: 05/12/18 22:05 Dose: 5 ml Petrolatum (Desitin Original) 0 gm TOP DAILY [facility] Last Admin: 05/12/18 14:41 Dose: Not Given Propranolol HCl (Inderal) 10 mg PO TID [facility] Last Admin: 05/12/18 19:02 Dose: 10 mg Rifaximin (Xifaxan) 550 mg PO BID [facility]; Protocol Last Admin: 05/12/18 19:02 Dose: 550 mg Sitagliptin Phosphate (Januvia) 25 mg PO DAILY [facility] Last Admin: 05/12/18 09:40 Dose: 25 mg Spironolactone (Aldactone) 25 mg PO BID [facility] Last Admin: 05/12/18 19:02 Dose: 25 mg Thiamine HCl (Vitamin B1 Tab) 200 mg PO TID [facility] Last Admin: 05/12/18 19:03 Dose: 200 mg Zinc Sulfate (Zinc Sulfate 220 Mg Cap) 220 mg PO DAILY [facility] Last Admin: 05/12/18 09:39 Dose: 220 mg - Labs Labs: 05/11/18 05:42 05/12/18 16:12 PT 18.0 SECONDS (9.7-12.2) H 05/11/18 05:42 INR 1.6 05/11/18 05:42 APTT 38 SECONDS (21-34) H 05/06/18 06:22 - Constitutional Appears: No Acute Distress - Head Exam Head Exam: NORMAL INSPECTION - Eye Exam Eye Exam: EOMI, PERRL, Scleral icterus - ENT Exam ENT Exam: Normal Oropharynx - Neck Exam Neck Exam: Normal Inspection - Respiratory Exam Respiratory Exam: Decreased Breath Sounds (B/L BASES.) - Cardiovascular Exam Cardiovascular Exam: REGULAR RHYTHM, +S1, +S2 - Extremities Exam Extremities Exam: Pedal Edema. absent: Calf Tenderness, Tenderness - Neurological Exam Neurological Exam: Alert, Awake, CN II-XII Intact, Oriented x3, Reflexes Normal - Psychiatric Exam Psychiatric exam: Normal Mood - Skin Skin Exam: Normal Color, Warm Assessment and Plan (1) Sepsis Status: Acute (2) Abdominal pain Status: Acute (3) Alcohol abuse Status: Acute (4) Leg abrasion Status: Acute (5) Leg edema Status: Acute (6) Psoriasiform dermatitis Status: Acute (7) Alcoholic cirrhosis of liver Status: Chronic (8) Thrombocytopenia concurrent with and due to alcoholism Status: Acute - Assessment and Plan (Free Text) Plan: CONTINUE iv ZOSYN 3.375 iv PIGGYBACK EVERY 8 HOURLY 05/05/18 DC iv VANCOMYCIN 1 G EVERY 12 HOURLY .05/05/18- 05/12/18 ON IV CIPRO 400 MG EVERY 12 HOURS 05/08 LOCAL WOUND CARE PER WOUND CARE NURSE. F/U CXR IN AM PER CARDIOLOGY.
[2018-05-13] MEDS: Albuterol-Ipratrop 3 mg / 0.5 (3 ml) UD INH SCH ×2 (01:22→19:20)
[2018-05-13] MEDS: Piperacill/Tazo 2.25gm in Dex 2.25 GM/50 ML BAG IVPB SCH ×4 (03:05→21:30)
--- NOTE | 2018-05-13 06:16 | CP.PCM.PN ---
Subjective - Date & Time of Evaluation Date of Evaluation: 05/12/18 Time of Evaluation: 06:16 - Subjective Subjective: Patient feels better No additional cardiac events noted Continue CHF management Non ischemic CMP Objective - Vital Signs/Intake and Output Vital Signs (last 24 hours): Temp Pulse Resp BP Pulse Ox 98.3 F 89 21 137/76 100 05/13/18 02:00 05/13/18 04:00 05/13/18 04:00 05/13/18 02:31 05/13/18 02:00 Intake and Output: 05/12/18 05/13/18 18:59 06:59 Intake Total 750 Output Total 700 Balance 50 - Medications Medications: Current Medications Albuterol/Ipratropium (Duoneb 3 Mg/0.5 Mg (3 Ml) Ud) 3 ml INH RQ6 FLY Last Admin: 05/13/18 01:22 Dose: Not Given Ascorbic Acid (Vitamin C 500 Mg Tab) 500 mg PO TID [facility] Last Admin: 05/12/18 19:02 Dose: 500 mg Folic Acid (Folic Acid) 1 mg PO DAILY [facility] Last Admin: 05/12/18 09:40 Dose: 1 mg Furosemide (Lasix) 20 mg PO Q12 [facility] Last Admin: 05/12/18 22:04 Dose: 20 mg Ciprofloxacin (Cipro 400mg/200ml Dsw) 400 mg in 200 mls @ 133 mls/hr IVPB Q12H [facility]; Protocol Last Admin: 05/12/18 19:43 Dose: 133 mls/hr Piperacillin Sod/Tazobactam Sod (Zosyn 2.25 Gm Iv Premix) 2.25 gm in 50 mls @ 100 mls/hr IVPB Q6H [facility]; Protocol Last Admin: 05/13/18 03:05 Dose: 100 mls/hr Insulin Aspart (Novolog) 0 unit SC ACHS [facility]; Protocol Last Admin: 05/12/18 21:53 Dose: Not Given Lactulose (Enulose) 20 gm PO DAILY [facility] Last Admin: 05/12/18 09:41 Dose: Not Given Losartan Potassium (Cozaar) 25 mg PO DAILY [facility] Last Admin: 05/12/18 09:40 Dose: 25 mg Magnesium Oxide (Mag-Ox) 400 mg PO DAILY [facility] Last Admin: 05/12/18 09:40 Dose: 400 mg Multivitamins (Hexavitamin) 1 tab PO DAILY [facility] Last Admin: 05/12/18 09:39 Dose: 1 tab Nystatin (Nystatin Oral Susp) 5 ml PO QID [facility] Last Admin: 05/12/18 22:05 Dose: 5 ml Petrolatum (Desitin Original) 0 gm TOP DAILY [facility] Last Admin: 05/12/18 14:41 Dose: Not Given Propranolol HCl (Inderal) 10 mg PO TID [facility] Last Admin: 05/12/18 19:02 Dose: 10 mg Rifaximin (Xifaxan) 550 mg PO BID [facility]; Protocol Last Admin: 05/12/18 19:02 Dose: 550 mg Sitagliptin Phosphate (Januvia) 25 mg PO DAILY [facility] Last Admin: 05/12/18 09:40 Dose: 25 mg Spironolactone (Aldactone) 25 mg PO BID [facility] Last Admin: 05/12/18 19:02 Dose: 25 mg Thiamine HCl (Vitamin B1 Tab) 200 mg PO TID [facility] Last Admin: 05/12/18 19:03 Dose: 200 mg Zinc Sulfate (Zinc Sulfate 220 Mg Cap) 220 mg PO DAILY [facility] Last Admin: 05/12/18 09:39 Dose: 220 mg - Labs Labs: 05/11/18 05:42 05/12/18 16:12 PT 18.0 SECONDS (9.7-12.2) H 05/11/18 05:42 INR 1.6 05/11/18 05:42 APTT 38 SECONDS (21-34) H 05/06/18 06:22
[2018-05-13 07:10] VITALS: RESP 20
[2018-05-13] MEDS: Ciprofloxacin 400mg/200ml D5W 400 MG/200 ML BAG IVPB SCH ×2 (08:06→20:00)
[2018-05-13] MEDS: (Novolog) Insulin Aspart, Recombinant 100 u/ml 10 ml vial SC SCH ×4 (08:16→21:32)
[2018-05-13] MEDS: Magnesium Oxide 400 mg Tab UD PO SCH (09:02)
[2018-05-13] MEDS: Multiple Vitamins Tab PO SCH (09:03)
--- NOTE | 2018-05-13 10:04 | RAD ---
Date of service: 05/13/2018 HISTORY: RLL PNEUMONIA COMPARISON: 05/06/2018. FINDINGS: The right PICC line terminates in the axillary vein. LUNGS: The lungs are well inflated. There is moderate pulmonary venous congestion. There is subsegmental atelectasis in the right lower lobe. PLEURA: No pleural effusions or pneumothorax. CARDIOVASCULAR: Persistent moderate cardiomegaly. Atherosclerotic aortic arch calcifications are present. OSSEOUS STRUCTURES: Within normal limits for the patient's age. VISUALIZED UPPER ABDOMEN: Normal. OTHER FINDINGS: None. IMPRESSION: Persistent moderate cardiomegaly and pulmonary venous congestion. Right PICC line terminates in the axillary vein.
[2018-05-13] MEDS: Zinc Oxide Topical 30 gm Tube TOP SCH (10:15)
[2018-05-13] MEDS: Nystatin 100,000 Units/ml Oral Susp 5 ml UD PO SCH ×4 (10:16→21:31)
--- NOTE | 2018-05-13 14:45 | CP.PCM.PN ---
<Odalis Brown - Last Filed: 05/13/18 14:44> Subjective - Date & Time of Evaluation Date of Evaluation: 05/13/18 Time of Evaluation: 14:44 - Subjective Subjective: Cardiology Follow Up Patient was seen and examined at bedside. Patient denied any chest pain, shortness of breath, or palpitations. Objective - Vital Signs/Intake and Output Vital Signs (last 24 hours): Temp Pulse Resp BP Pulse Ox 98.2 F 88 20 137/88 99 05/13/18 08:00 05/13/18 08:00 05/13/18 08:00 05/13/18 09:03 05/13/18 08:00 Intake and Output: 05/13/18 05/13/18 06:59 18:59 Intake Total 1100 Output Total 1000 Balance 100 - Medications Medications: Current Medications Albuterol/Ipratropium (Duoneb 3 Mg/0.5 Mg (3 Ml) Ud) 3 ml INH RQ6 FLY Last Admin: 05/13/18 01:22 Dose: Not Given Ascorbic Acid (Vitamin C 500 Mg Tab) 500 mg PO TID [facility]Y Last Admin: 05/13/18 13:33 Dose: 500 mg Folic Acid (Folic Acid) 1 mg PO DAILY [facility] Last Admin: 05/13/18 09:02 Dose: 1 mg Furosemide (Lasix) 20 mg PO Q12 [facility] Last Admin: 05/13/18 09:03 Dose: 20 mg Ciprofloxacin (Cipro 400mg/200ml Dsw) 400 mg in 200 mls @ 133 mls/hr IVPB Q12H [facility]; Protocol Last Admin: 05/13/18 08:06 Dose: 133 mls/hr Piperacillin Sod/Tazobactam Sod (Zosyn 2.25 Gm Iv Premix) 2.25 gm in 50 mls @ 100 mls/hr IVPB Q6H [facility]; Protocol Last Admin: 05/13/18 09:06 Dose: 100 mls/hr Insulin Aspart (Novolog) 0 unit SC ACHS [facility]; Protocol Last Admin: 05/13/18 12:20 Dose: 2 u Lactulose (Enulose) 20 gm PO DAILY [facility] Last Admin: 05/13/18 09:01 Dose: 20 gm Losartan Potassium (Cozaar) 25 mg PO DAILY [facility] Last Admin: 05/13/18 09:02 Dose: 25 mg Magnesium Oxide (Mag-Ox) 400 mg PO DAILY [facility] Last Admin: 05/13/18 09:02 Dose: 400 mg Multivitamins (Hexavitamin) 1 tab PO DAILY [facility] Last Admin: 05/13/18 09:03 Dose: 1 tab Nystatin (Nystatin Oral Susp) 5 ml PO QID [facility] Last Admin: 05/13/18 13:26 Dose: 5 ml Petrolatum (Desitin Original) 0 gm TOP DAILY [facility] Last Admin: 05/13/18 10:15 Dose: Not Given Propranolol HCl (Inderal) 10 mg PO TID [facility] Last Admin: 05/13/18 13:26 Dose: 10 mg Rifaximin (Xifaxan) 550 mg PO BID [facility]; Protocol Last Admin: 05/13/18 10:16 Dose: 550 mg Sitagliptin Phosphate (Januvia) 25 mg PO DAILY [facility] Last Admin: 05/13/18 09:03 Dose: 25 mg Spironolactone (Aldactone) 25 mg PO BID [facility] Last Admin: 05/13/18 09:03 Dose: 25 mg Thiamine HCl (Vitamin B1 Tab) 200 mg PO TID [facility] Last Admin: 05/13/18 13:29 Dose: 200 mg Zinc Sulfate (Zinc Sulfate 220 Mg Cap) 220 mg PO DAILY [facility] Last Admin: 05/13/18 09:02 Dose: 220 mg - Labs Labs: 05/11/18 05:42 05/12/18 16:12 PT 18.0 SECONDS (9.7-12.2) H 05/11/18 05:42 INR 1.6 05/11/18 05:42 APTT 38 SECONDS (21-34) H 05/06/18 06:22 - Additional Findings Additional findings: - Constitutional Appears: No Acute Distress - Head Exam Head Exam: NORMAL INSPECTION, NORMOCEPHALIC - Eye Exam Eye Exam: EOMI, PERRL Pupil Exam: NORMAL ACCOMODATION - ENT Exam ENT Exam: Mucous Membranes Moist - Respiratory Exam Respiratory Exam: Clear to Ausculation Bilateral, NORMAL BREATHING PATTERN. absent: Decreased Breath Sounds - Cardiovascular Exam Cardiovascular Exam: +S1, +S2. absent: Murmur - GI/Abdominal Exam GI & Abdominal Exam: Soft, Normal Bowel Sounds. absent: Distended, Tenderness - Extremities Exam Extremities Exam: Normal Inspection. absent: Pedal Edema, Tenderness - Neurological Exam Neurological Exam: Alert, Awake, Oriented x3 - Psychiatric Exam Psychiatric exam: Normal Affect, Normal Mood - Skin Skin Exam: Dry, Intact, Normal Color, Warm Assessment and Plan - Assessment and Plan (Free Text) Plan: NSTEMI Hx of Hypertension, Type 2 Diabetes, Systolic Heart Failure, Dilated, Nonishemic Cardiomyopathy, Decompensated Alcohol Cirrhosis Imaging: - ECHO: LVEF 36% systolic dysfunction - S/P Cardiac Catherization: 1. Normal coronaries 2. EF 25%, dialted non ischemic CMP, EDP 36, no Management: - Continue with Losartan 25mg PO daily - Patient is for Life Vest now, ICD eval after 3 months Case discussed with Dr. Barajas, Odalis Brown DO, PGY2 <Wyatt Barajas - Last Filed: 05/13/18 20:04> Objective - Vital Signs/Intake and Output Vital Signs (last 24 hours): Temp Pulse Resp BP Pulse Ox 98.2 F 88 20 137/88 99 05/13/18 08:00 05/13/18 08:00 05/13/18 08:00 05/13/18 09:03 05/13/18 08:00 Intake and Output: 05/13/18 05/14/18 18:59 06:59 Intake Total 1100 Output Total 1000 Balance 100 - Medications Medications: Current Medications Albuterol/Ipratropium (Duoneb 3 Mg/0.5 Mg (3 Ml) Ud) 3 ml INH RQ6 FLY Last Admin: 05/13/18 01:22 Dose: Not Given Ascorbic Acid (Vitamin C 500 Mg Tab) 500 mg PO TID [facility] Last Admin: 05/13/18 18:27 Dose: 500 mg Folic Acid (Folic Acid) 1 mg PO DAILY [facility] Last Admin: 05/13/18 09:02 Dose: 1 mg Furosemide (Lasix) 20 mg PO Q12 [facility] Last Admin: 05/13/18 09:03 Dose: 20 mg Piperacillin Sod/Tazobactam Sod (Zosyn 2.25 Gm Iv Premix) 2.25 gm in 50 mls @ 100 mls/hr IVPB Q6H [facility]; Protocol Last Admin: 05/13/18 16:19 Dose: 100 mls/hr Insulin Aspart (Novolog) 0 unit SC ACHS [facility]; Protocol Last Admin: 05/13/18 18:28 Dose: Not Given Lactulose (Enulose) 20 gm PO DAILY [facility] Last Admin: 05/13/18 09:01 Dose: 20 gm Losartan Potassium (Cozaar) 25 mg PO DAILY [facility] Last Admin: 05/13/18 09:02 Dose: 25 mg Magnesium Oxide (Mag-Ox) 400 mg PO DAILY [facility] Last Admin: 05/13/18 09:02 Dose: 400 mg Multivitamins (Hexavitamin) 1 tab PO DAILY [facility] Last Admin: 05/13/18 09:03 Dose: 1 tab Nystatin (Nystatin Oral Susp) 5 ml PO QID [facility] Last Admin: 05/13/18 18:25 Dose: 5 ml Petrolatum (Desitin Original) 0 gm TOP DAILY [facility] Last Admin: 05/13/18 10:15 Dose: Not Given Propranolol HCl (Inderal) 10 mg PO TID [facility] Last Admin: 05/13/18 18:24 Dose: 10 mg Rifaximin (Xifaxan) 550 mg PO BID [facility]; Protocol Last Admin: 05/13/18 18:27 Dose: 550 mg Sitagliptin Phosphate (Januvia) 25 mg PO DAILY [facility] Last Admin: 05/13/18 09:03 Dose: 25 mg Spironolactone (Aldactone) 25 mg PO BID [facility] Last Admin: 05/13/18 18:25 Dose: 25 mg Thiamine HCl (Vitamin B1 Tab) 200 mg PO TID [facility] Last Admin: 05/13/18 18:25 Dose: 200 mg Zinc Sulfate (Zinc Sulfate 220 Mg Cap) 220 mg PO DAILY [facility] Last Admin: 05/13/18 09:02 Dose: 220 mg - Labs Labs: 05/11/18 05:42 05/12/18 16:12 PT 18.0 SECONDS (9.7-12.2) H 05/11/18 05:42 INR 1.6 05/11/18 05:42 APTT 38 SECONDS (21-34) H 05/06/18 06:22 Assessment and Plan - Assessment and Plan (Free Text) Plan: Patient seen and evaluated personally by me. Plan of care d/w the medical director and as documented
[2018-05-14] MEDS: Albuterol-Ipratrop 3 mg / 0.5 (3 ml) UD INH SCH ×4 (02:10→19:20)
--- NOTE | 2018-05-14 02:20 | PN ---
DATE: 05/13/2018 SUBJECTIVE: Currently, the patient is sleeping well. He has no distress this morning. He denies any chest pain. Shortness of breath on mild exertion noted. No nausea. No vomiting. PHYSICAL EXAMINATION: VITAL SIGNS: Now, temperature 98.2, pulse 88, blood pressure 137/88, respiration is 20, saturation 99% on room air. HEENT: PERRLA. NECK: Supple. CHEST: Good air entry bilaterally. HEART: Regular heart sounds. ABDOMEN: Soft, but obesity present and also fluid thrill noted. EXTREMITIES: Edema bilaterally noted, better than before. MEDICATIONS: Currently, the patient is receiving multiple medications including DuoNeb, ascorbic acid, folic acid, Lasix 20 mg every 12 hours IV, ciprofloxacin 400 mg daily, also Zosyn, NovoLog, lactulose, Cozaar, magnesium oxide, multivitamin, nystatin, Desitin, Inderal, rifaximin, Januvia, spironolactone, thiamine, and zinc sulfate. ASSESSMENT AND RECOMMENDATIONS: A 42-year-old male, admitted with sepsis, also admitted with leg ulcers involving the right leg. He had a history of alcoholic liver disease, alcoholic cardiomyopathy associated with low ejection fraction. The patient is currently on multiple antibiotics. His symptoms are improving at this time. The patient will need LifeVest. At this time, the patient is clinically stable. We will discuss with Infectious Disease about the discharge plan, and we will plan for possible discharge in few days. Damaris Edwards MD
[2018-05-14] MEDS: Piperacill/Tazo 2.25gm in Dex 2.25 GM/50 ML BAG IVPB SCH ×4 (03:06→20:54)
[2018-05-14] MEDS: (Novolog) Insulin Aspart, Recombinant 100 u/ml 10 ml vial SC SCH ×4 (08:50→22:52)
[2018-05-14] MEDS: Zinc Oxide Topical 30 gm Tube TOP SCH (10:06)
[2018-05-14] MEDS: Multiple Vitamins Tab PO SCH (10:08)
[2018-05-14] MEDS: Magnesium Oxide 400 mg Tab UD PO SCH (10:09)
[2018-05-14] MEDS: Nystatin 100,000 Units/ml Oral Susp 5 ml UD PO SCH ×4 (10:18→23:03)
[2018-05-14] MEDS: Tramadol 25 mg PO PRN ×2 (14:18→23:03)
--- NOTE | 2018-05-14 14:48 | CP.PCM.PN ---
Subjective - Date & Time of Evaluation Date of Evaluation: 05/14/18 Time of Evaluation: 14:48 - Subjective Subjective: AFEBRILE, AWAKE AND ALERT OFFERS NO NEW COMPLAINTS. RT. LEG ULCERATION AND RASH IMPROVING OFF IV CIPRO. ON IV ZOSYN CXR 05/13/18- WELL INFLATED LUNGS, MODERATE CARDIOMEGALY WITH PVC. LABS; REVIEWED LFTS IMPROVED Objective - Vital Signs/Intake and Output Vital Signs (last 24 hours): Temp Pulse Resp BP Pulse Ox 98.6 F 88 20 157/98 H 99 05/14/18 08:14 05/14/18 13:39 05/14/18 08:14 05/14/18 10:08 05/14/18 13:39 Intake and Output: 05/14/18 05/14/18 06:59 18:59 Intake Total 550 380 Output Total 600 500 Balance -50 -120 - Medications Medications: Current Medications Albuterol/Ipratropium (Duoneb 3 Mg/0.5 Mg (3 Ml) Ud) 3 ml INH RQ6 [facility] Last Admin: 05/14/18 13:42 Dose: Not Given Ascorbic Acid (Vitamin C 500 Mg Tab) 500 mg PO TID [facility] Last Admin: 05/14/18 13:33 Dose: 500 mg Folic Acid (Folic Acid) 1 mg PO DAILY [facility] Last Admin: 05/14/18 10:08 Dose: 1 mg Furosemide (Lasix) 20 mg PO Q12 [facility] Last Admin: 05/14/18 10:08 Dose: 20 mg Piperacillin Sod/Tazobactam Sod (Zosyn 2.25 Gm Iv Premix) 2.25 gm in 50 mls @ 100 mls/hr IVPB Q6H [facility]; Protocol Last Admin: 05/14/18 09:00 Dose: 100 mls/hr Insulin Aspart (Novolog) 0 unit SC ACHS [facility]; Protocol Last Admin: 05/14/18 12:47 Dose: 2 u Lactulose (Enulose) 20 gm PO DAILY [facility] Last Admin: 05/14/18 10:12 Dose: Not Given Losartan Potassium (Cozaar) 25 mg PO DAILY [facility] Last Admin: 05/14/18 10:09 Dose: 25 mg Magnesium Oxide (Mag-Ox) 400 mg PO DAILY [facility] Last Admin: 05/14/18 10:09 Dose: 400 mg Multivitamins (Hexavitamin) 1 tab PO DAILY [facility] Last Admin: 05/14/18 10:08 Dose: 1 tab Nystatin (Nystatin Oral Susp) 5 ml PO QID [facility] Last Admin: 05/14/18 13:33 Dose: 5 ml Petrolatum (Desitin Original) 0 gm TOP DAILY [facility] Last Admin: 05/14/18 10:06 Dose: 1 unit Propranolol HCl (Inderal) 10 mg PO TID [facility] Last Admin: 05/14/18 13:33 Dose: 10 mg Rifaximin (Xifaxan) 550 mg PO BID [facility]; Protocol Last Admin: 05/14/18 10:08 Dose: 550 mg Sitagliptin Phosphate (Januvia) 25 mg PO DAILY [facility] Last Admin: 05/14/18 10:09 Dose: 25 mg Spironolactone (Aldactone) 25 mg PO BID [facility] Last Admin: 05/14/18 10:09 Dose: 25 mg Thiamine HCl (Vitamin B1 Tab) 200 mg PO TID [facility] Last Admin: 05/14/18 13:33 Dose: 200 mg Tramadol HCl (Ultram) 25 mg PO BID PRN PRN Reason: Pain, moderate (4-7) Last Admin: 05/14/18 14:18 Dose: 25 mg Zinc Sulfate (Zinc Sulfate 220 Mg Cap) 220 mg PO DAILY [facility] Last Admin: 05/14/18 10:09 Dose: 220 mg - Labs Labs: 05/11/18 05:42 05/12/18 16:12 PT 18.0 SECONDS (9.7-12.2) H 05/11/18 05:42 INR 1.6 05/11/18 05:42 APTT 38 SECONDS (21-34) H 05/06/18 06:22 - Constitutional Appears: No Acute Distress - Head Exam Head Exam: NORMAL INSPECTION - Eye Exam Eye Exam: EOMI, PERRL - ENT Exam ENT Exam: Normal Oropharynx - Neck Exam Neck Exam: Normal Inspection - Respiratory Exam Respiratory Exam: Decreased Breath Sounds, NORMAL BREATHING PATTERN - Cardiovascular Exam Cardiovascular Exam: REGULAR RHYTHM, +S1, +S2 - GI/Abdominal Exam GI & Abdominal Exam: Soft, Normal Bowel Sounds - Extremities Exam Extremities Exam: Pedal Edema. absent: Calf Tenderness - Neurological Exam Neurological Exam: Awake, CN II-XII Intact, Oriented x3, Reflexes Normal - Psychiatric Exam Psychiatric exam: Normal Mood - Skin Skin Exam: Normal Color, Warm Assessment and Plan (1) Sepsis Status: Acute (2) Abdominal pain Status: Acute (3) Alcohol abuse Status: Acute (4) Leg abrasion Status: Acute (5) Leg edema Status: Acute (6) Psoriasiform dermatitis Status: Acute (7) Alcoholic cirrhosis of liver Status: Chronic (8) Thrombocytopenia concurrent with and due to alcoholism Status: Acute - Assessment and Plan (Free Text) Plan: CONTINUE iv ZOSYN 3.375 iv PIGGYBACK EVERY 8 HOURLY 05/05/18 OFF IV CIPRO 400 MG EVERY 12 HOURS 05/08--05/14/18 LOCAL WOUND CARE PER WOUND CARE NURSE. PER CONSULTANTS/PMD. WILL DISCUSS PLANS WITH PMD.
[2018-05-15] MEDS: Piperacill/Tazo 2.25gm in Dex 2.25 GM/50 ML BAG IVPB SCH ×4 (02:45→22:01)
[2018-05-15] MEDS: Albuterol-Ipratrop 3 mg / 0.5 (3 ml) UD INH SCH ×2 (03:28→07:40)
--- NOTE | 2018-05-15 03:38 | CARDCATH ---
PROCEDURE DATE: 05/10/2018 PROCEDURES: 1. Left heart catheterization. 2. Coronary angiogram. CLINICAL INDICATIONS: 1. Chest pain. 2. Dyspnea. 3. Acute systolic congestive heart failure. 4. Hypertension. 5. Cirrhosis. 6. Thrombocytopenia. REFERRING PHYSICIAN: Damaris Edwards MD PERFORMING PHYSICIAN: Wyatt Barajas MD DESCRIPTION OF PROCEDURE: After informed consent, the patient was prepped and draped in the usual sterile fashion. A 2% lidocaine was given in the right wrist for local anesthesia. Using micropuncture technique, 6-Grenadian sheath was introduced into the right radial artery. A JR-4 diagnostic catheter crossed into the left ventricle across the aortic valve. LV end-diastolic pressure measured. Contrast injected and LV angiogram was done. The catheter was pulled back across the aortic valve. Gradient across the aortic valve was measured and the same catheter engaged into the right coronary artery. Contrast injected and right coronary angiogram was done. Then, the catheter was exchanged to a 6-Grenadian [place] catheter. The catheter was engaged into the left main coronary artery. Contrast injected and left coronary angiogram was done. The patient tolerated the procedure well. Postprocedure, right wrist with excellent hemostasis. Radiological interpretation and radiological supervision of the coronary imaging was done. FINDINGS: 1. Left main coronary artery is patent. 2. LAD and diagonal branches are patent. 3. Left circumflex is dominant. Left circumflex and obtuse marginal branches are patent. 4. Right coronary artery is nondominant and patent. 5. Dilated LV, nonischemic cardiomyopathy with ejection fraction of 25%. Severe global hypokinesis. EDP is 22. No gradient across the aortic valve. CONCLUSION: 1. Normal coronaries. 2. Dilated nonischemic cardiomyopathy with an ejection fraction of 25%. Wyatt Barajas MD
[2018-05-15] MEDS: (Novolog) Insulin Aspart, Recombinant 100 u/ml 10 ml vial SC SCH ×4 (07:52→21:53)
[2018-05-15] MEDS: Nystatin 100,000 Units/ml Oral Susp 5 ml UD PO SCH ×5 (09:19→22:02)
[2018-05-15] MEDS: Multiple Vitamins Tab PO SCH (09:20)
[2018-05-15] MEDS: Magnesium Oxide 400 mg Tab UD PO SCH (09:20)
[2018-05-15] MEDS: Zinc Oxide Topical 30 gm Tube TOP SCH (09:22)
--- NOTE | 2018-05-15 11:35 | CP.PCM.PN ---
Subjective - Date & Time of Evaluation Date of Evaluation: 05/14/18 Time of Evaluation: 15:30 - Subjective Subjective: Patient was seen and examined at bedside. Patient denied any chest pain, shortness of breath, or palpitations. Physical Examination - Additional Findings Additional findings: - Constitutional Appears: No Acute Distress - Head Exam Head Exam: NORMAL INSPECTION, NORMOCEPHALIC - Eye Exam Eye Exam: EOMI, PERRL Pupil Exam: NORMAL ACCOMODATION - ENT Exam ENT Exam: Mucous Membranes Moist - Respiratory Exam Respiratory Exam: Clear to Ausculation Bilateral, NORMAL BREATHING PATTERN. absent: Decreased Breath Sounds - Cardiovascular Exam Cardiovascular Exam: +S1, +S2. absent: Murmur - GI/Abdominal Exam GI & Abdominal Exam: Soft, Normal Bowel Sounds. absent: Distended, Tenderness - Extremities Exam Extremities Exam: Normal Inspection. absent: Pedal Edema, Tenderness - Neurological Exam Neurological Exam: Alert, Awake, Oriented x3 - Psychiatric Exam Psychiatric exam: Normal Affect, Normal Mood - Skin Skin Exam: Dry, Intact, Normal Color, Warm Assessment and Plan - Assessment and Plan (Free Text) Plan: NSTEMI Hx of Hypertension, Type 2 Diabetes, Systolic Heart Failure, Dilated, Nonishemic Cardiomyopathy, Decompensated Alcohol Cirrhosis Imaging: - ECHO: LVEF 36% systolic dysfunction - S/P Cardiac Catherization: 1. Normal coronaries 2. EF 25%, dialted non ischemic CMP, EDP 36, no Management: - Continue with Losartan 25mg PO daily - Patient is for Life Vest now, ICD eval after 3 months Objective - Vital Signs/Intake and Output Vital Signs (last 24 hours): Temp Pulse Resp BP Pulse Ox 97.9 F 85 20 155/83 H 99 05/15/18 08:04 05/15/18 10:56 05/15/18 08:04 05/15/18 10:56 05/15/18 08:04 Intake and Output: 05/15/18 05/15/18 06:59 18:59 Intake Total 980 Output Total 2400 Balance -1420 - Medications Medications: Current Medications Ascorbic Acid (Vitamin C 500 Mg Tab) 500 mg PO TID [facility] Last Admin: 05/15/18 09:24 Dose: 500 mg Folic Acid (Folic Acid) 1 mg PO DAILY [facility] Last Admin: 05/15/18 09:19 Dose: 1 mg Furosemide (Lasix) 20 mg PO Q12 [facility] Last Admin: 12/16/18 09:21 Dose: 20 mg Piperacillin Sod/Tazobactam Sod (Zosyn 2.25 Gm Iv Premix) 2.25 gm in 50 mls @ 100 mls/hr IVPB Q6H [facility]; Protocol Last Admin: 05/15/18 08:15 Dose: 100 mls/hr Insulin Aspart (Novolog) 0 unit SC ACHS [facility]; Protocol Last Admin: 05/15/18 07:52 Dose: Not Given Lactulose (Enulose) 20 gm PO DAILY [facility] Last Admin: 05/15/18 09:24 Dose: Not Given Losartan Potassium (Cozaar) 25 mg PO DAILY [facility] Last Admin: 05/15/18 09:19 Dose: 25 mg Magnesium Oxide (Mag-Ox) 400 mg PO DAILY [facility] Last Admin: 05/15/18 09:20 Dose: 400 mg Multivitamins (Hexavitamin) 1 tab PO DAILY [facility] Last Admin: 05/15/18 09:20 Dose: 1 tab Nystatin (Nystatin Oral Susp) 5 ml PO QID [facility] Last Admin: 05/15/18 09:26 Dose: Not Given Petrolatum (Desitin Original) 0 gm TOP DAILY [facility] Last Admin: 05/15/18 09:22 Dose: 1 applic Propranolol HCl (Inderal) 10 mg PO TID [facility] Last Admin: 05/15/18 09:20 Dose: 10 mg Sitagliptin Phosphate (Januvia) 25 mg PO DAILY [facility] Last Admin: 05/15/18 09:20 Dose: 25 mg Spironolactone (Aldactone) 25 mg PO BID [facility] Last Admin: 05/15/18 09:20 Dose: 25 mg Thiamine HCl (Vitamin B1 Tab) 200 mg PO TID [facility] Last Admin: 05/15/18 09:19 Dose: 200 mg Tramadol HCl (Ultram) 25 mg PO BID PRN PRN Reason: Pain, moderate (4-7) Last Admin: 05/14/18 23:03 Dose: 25 mg Zinc Sulfate (Zinc Sulfate 220 Mg Cap) 220 mg PO DAILY [facility] Last Admin: 05/15/18 09:19 Dose: 220 mg - Labs Labs: 05/11/18 05:42 05/12/18 16:12 PT 18.0 SECONDS (9.7-12.2) H 05/11/18 05:42 INR 1.6 05/11/18 05:42 APTT 38 SECONDS (21-34) H 05/06/18 06:22
--- NOTE | 2018-05-15 22:53 | CP.PCM.PN ---
Subjective - Date & Time of Evaluation Date of Evaluation: 05/15/18 Time of Evaluation: 07:40 - Subjective Subjective: No new cardiac events noted Continue CHF management Objective - Vital Signs/Intake and Output Vital Signs (last 24 hours): Temp Pulse Resp BP Pulse Ox 98.0 F 77 20 140/90 100 05/15/18 15:00 05/15/18 15:00 05/15/18 15:00 05/15/18 22:02 05/15/18 15:00 Intake and Output: 05/15/18 05/16/18 18:59 06:59 Intake Total 580 Output Total 1999 Balance -1420 - Medications Medications: Current Medications Ascorbic Acid (Vitamin C 500 Mg Tab) 500 mg PO TID [facility] Last Admin: 05/15/18 22:03 Dose: 500 mg Folic Acid (Folic Acid) 1 mg PO DAILY [facility] Last Admin: 05/15/18 09:19 Dose: 1 mg Furosemide (Lasix) 20 mg PO Q12 [facility] Last Admin: 05/15/18 22:02 Dose: 20 mg Piperacillin Sod/Tazobactam Sod (Zosyn 2.25 Gm Iv Premix) 2.25 gm in 50 mls @ 100 mls/hr IVPB Q6H [facility]; Protocol Last Admin: 05/15/18 22:01 Dose: 100 mls/hr Insulin Aspart (Novolog) 0 unit SC ACHS [facility]; Protocol Last Admin: 05/15/18 21:53 Dose: Not Given Lactulose (Enulose) 20 gm PO DAILY [facility] Last Admin: 05/15/18 09:24 Dose: Not Given Losartan Potassium (Cozaar) 25 mg PO DAILY [facility] Last Admin: 05/15/18 09:19 Dose: 25 mg Magnesium Oxide (Mag-Ox) 400 mg PO DAILY [facility] Last Admin: 05/15/18 09:20 Dose: 400 mg Multivitamins (Hexavitamin) 1 tab PO DAILY [facility] Last Admin: 05/15/18 09:20 Dose: 1 tab Nystatin (Nystatin Oral Susp) 5 ml PO QID [facility] Last Admin: 05/15/18 22:02 Dose: Not Given Petrolatum (Desitin Original) 0 gm TOP DAILY [facility] Last Admin: 05/15/18 09:22 Dose: 1 applic Propranolol HCl (Inderal) 10 mg PO TID [facility] Last Admin: 05/15/18 18:00 Dose: 10 mg Sitagliptin Phosphate (Januvia) 25 mg PO DAILY [facility] Last Admin: 05/15/18 09:20 Dose: 25 mg Spironolactone (Aldactone) 25 mg PO BID [facility] Last Admin: 05/15/18 17:57 Dose: 25 mg Thiamine HCl (Vitamin B1 Tab) 200 mg PO TID [facility] Last Admin: 05/15/18 17:57 Dose: 200 mg Tramadol HCl (Ultram) 25 mg PO BID PRN PRN Reason: Pain, moderate (4-7) Last Admin: 05/14/18 23:03 Dose: 25 mg Zinc Sulfate (Zinc Sulfate 220 Mg Cap) 220 mg PO DAILY [facility] Last Admin: 05/15/18 09:19 Dose: 220 mg - Labs Labs: 05/11/18 05:42 05/12/18 16:12 PT 18.0 SECONDS (9.7-12.2) H 05/11/18 05:42 INR 1.6 05/11/18 05:42 APTT 38 SECONDS (21-34) H 05/06/18 06:22
[2018-05-16] MEDS: Tramadol 25 mg PO PRN (00:53)
[2018-05-16] MEDS: Piperacill/Tazo 2.25gm in Dex 2.25 GM/50 ML BAG IVPB SCH (02:35)
[2018-05-16 06:45] LABS: BASO # 0.1 K/uL (0.0-0.2); BASO % 0.8 % (0.0-2.0); EOS # 0.1 K/uL (0.0-0.7); EOS % 2.1 % (0.0-4.0); HEMOGLOBIN 8.7 g/dL (12.0-18.0); LYMPH % 30.4 % (20.0-40.0); MEAN CELL VOLUME 75.1 fL (80.0-94.0); MEAN CORPUSCULAR HEMOGLOBIN 23.7 pg (27.0-31.0); MEAN CORPUSCULAR HGB CONC 31.5 g/dL (33.0-37.0); MEAN PLATELET VOLUME 8.7 fL (7.2-11.7); MONO # 1.3 K/uL (0.0-0.8); MONO % 19.5 % (0.0-10.0); NEUT # 3.1 K/uL (1.8-7.0); NEUT % 47.2 % (50.0-75.0); NRBC % 0.1 % (0.0-2.0); RBC 3.68 Mil/uL (4.40-5.90); RED CELL DISTRIBUTION WIDTH 25.8 % (11.5-14.5); WHITE BLOOD COUNT 6.6 K/uL (4.8-10.8)
[2018-05-16 06:53] LABS: ALB/GLOB RATIO 0.7 (1.0-2.1); ALBUMIN 2.5 g/dL (3.5-5.0); ALT/SGPT 27 U/L (21-72); AST/SGOT 38 U/L (17-59); BLOOD UREA NITROGEN 14 mg/dL (9-20); CALCIUM 7.9 mg/dl (8.6-10.4); GFR NON-AFRICAN AMERICAN > 60
[2018-05-16] MEDS: (Novolog) Insulin Aspart, Recombinant 100 u/ml 10 ml vial SC SCH ×4 (07:56→22:06)
[2018-05-16] MEDS: Multiple Vitamins Tab PO SCH (10:10)
[2018-05-16] MEDS: Magnesium Oxide 400 mg Tab UD PO SCH (10:11)
[2018-05-16] MEDS: Zinc Oxide Topical 30 gm Tube TOP SCH (10:13)
[2018-05-16] MEDS: Nystatin 100,000 Units/ml Oral Susp 5 ml UD PO SCH ×4 (10:17→22:05)
[2018-05-16] MEDS: Magnesium Sulfate 1 gm in D5W 1 GM/100 ML BAG IVPB SCH ×2 (11:42→13:14)
--- NOTE | 2018-05-16 12:14 | CP.PCM.PN ---
Subjective - Date & Time of Evaluation Date of Evaluation: 05/16/18 Time of Evaluation: 12:13 - Subjective Subjective: AFEBRILE, AWAKE AND ALERT OFFERS NO NEW COMPLAINTS. RT. LEG ULCERATION AND RASH IMPROVING ON IV ZOSYN CXR 05/13/18- WELL INFLATED LUNGS, MODERATE CARDIOMEGALY WITH PVC. LABS; REVIEWED Objective - Vital Signs/Intake and Output Vital Signs (last 24 hours): Temp Pulse Resp BP Pulse Ox 98.8 F 80 20 161/98 H 97 05/16/18 07:47 05/16/18 07:47 05/16/18 07:47 05/16/18 10:10 05/16/18 07:47 Intake and Output: 05/16/18 05/16/18 06:59 18:59 Intake Total 350 250 Output Total 800 Balance -450 250 - Medications Medications: Current Medications Ascorbic Acid (Vitamin C 500 Mg Tab) 500 mg PO TID [facility] Last Admin: 05/16/18 10:10 Dose: 500 mg Folic Acid (Folic Acid) 1 mg PO DAILY [facility] Last Admin: 05/16/18 10:10 Dose: 1 mg Furosemide (Lasix) 20 mg PO Q12 [facility] Last Admin: 05/16/18 10:10 Dose: 20 mg Magnesium Sulfate/Dextrose (Magnesium Sulfate 1 Gm/100 Ml D5w) 1 gm in 100 mls @ 300 mls/hr IVPB Q30M [facility] Stop: 05/16/18 12:34 Last Admin: 05/16/18 11:42 Dose: 300 mls/hr Insulin Aspart (Novolog) 0 unit SC ACHS [facility]; Protocol Last Admin: 05/16/18 07:56 Dose: Not Given Lactulose (Enulose) 20 gm PO DAILY [facility] Last Admin: 05/16/18 10:10 Dose: 20 gm Losartan Potassium (Cozaar) 25 mg PO DAILY [facility] Last Admin: 05/16/18 10:10 Dose: 25 mg Magnesium Oxide (Mag-Ox) 400 mg PO DAILY [facility] Last Admin: 05/16/18 10:11 Dose: 400 mg Multivitamins (Hexavitamin) 1 tab PO DAILY [facility] Last Admin: 05/16/18 10:10 Dose: 1 tab Nystatin (Nystatin Oral Susp) 5 ml PO QID [facility] Last Admin: 05/16/18 10:17 Dose: 5 ml Petrolatum (Desitin Original) 0 gm TOP DAILY [facility] Last Admin: 05/16/18 10:13 Dose: 1 applic Propranolol HCl (Inderal) 10 mg PO TID [facility] Last Admin: 05/16/18 10:10 Dose: 10 mg Sitagliptin Phosphate (Januvia) 25 mg PO DAILY [facility] Last Admin: 05/16/18 10:12 Dose: 25 mg Spironolactone (Aldactone) 25 mg PO BID [facility] Last Admin: 05/16/18 10:11 Dose: 25 mg Thiamine HCl (Vitamin B1 Tab) 200 mg PO TID [facility] Last Admin: 05/15/18 17:57 Dose: 200 mg Tramadol HCl (Ultram) 25 mg PO BID PRN PRN Reason: Pain, moderate (4-7) Last Admin: 05/16/18 00:53 Dose: 25 mg Zinc Sulfate (Zinc Sulfate 220 Mg Cap) 220 mg PO DAILY [facility] Last Admin: 05/16/18 10:10 Dose: 220 mg - Labs Labs: 05/16/18 06:32 05/16/18 06:32 PT 18.0 SECONDS (9.7-12.2) H 05/11/18 05:42 INR 1.6 05/11/18 05:42 APTT 38 SECONDS (21-34) H 05/06/18 06:22 - Constitutional Appears: No Acute Distress - Head Exam Head Exam: NORMAL INSPECTION - Eye Exam Eye Exam: EOMI, PERRL. absent: Scleral icterus - ENT Exam ENT Exam: Normal Oropharynx - Neck Exam Neck Exam: Normal Inspection - Respiratory Exam Respiratory Exam: Rales (FEW BASILAR RALES), NORMAL BREATHING PATTERN - Cardiovascular Exam Cardiovascular Exam: REGULAR RHYTHM, +S1, +S2 - Extremities Exam Extremities Exam: Pedal Edema (1+VE RT LEG WOUND IN DRESSING . IMPROVING.). absent: Calf Tenderness - Neurological Exam Neurological Exam: Alert, Awake, CN II-XII Intact, Oriented x3 - Psychiatric Exam Psychiatric exam: Normal Mood - Skin Skin Exam: Normal Color, Warm Assessment and Plan (1) Sepsis Status: Acute (2) Abdominal pain Status: Acute (3) Alcohol abuse Status: Acute (4) Leg abrasion Status: Acute (5) Leg edema Status: Acute (6) Psoriasiform dermatitis Status: Acute (7) Alcoholic cirrhosis of liver Status: Chronic (8) Thrombocytopenia concurrent with and due to alcoholism Status: Acute - Assessment and Plan (Free Text) Plan: CONTINUE iv ZOSYN 3.375 iv PIGGYBACK EVERY 8 HOURLY 05/05/18 CAN SWITCH TO PO AUGMENTIN 875 MG PO BID X 10 DAYS IN AM. PO FLORSTAR CAPS 250MG PO HS DAILY X 10DAYS. LOCAL WOUND CARE PER WOUND CARE NURSE. PER CONSULTANTS/PMD.
--- NOTE | 2018-05-16 20:26 | CP.PCM.PN ---
Subjective - Date & Time of Evaluation Date of Evaluation: 05/16/18 Time of Evaluation: 15:00 - Subjective Subjective: Patient was seen and examined at bedside. Patient denied any chest pain, shortness of breath, or palpitations. Physical Examination - Additional Findings Additional findings: - Constitutional Appears: No Acute Distress - Head Exam Head Exam: NORMAL INSPECTION, NORMOCEPHALIC - Eye Exam Eye Exam: EOMI, PERRL Pupil Exam: NORMAL ACCOMODATION - ENT Exam ENT Exam: Mucous Membranes Moist - Respiratory Exam Respiratory Exam: Clear to Ausculation Bilateral, NORMAL BREATHING PATTERN. absent: Decreased Breath Sounds - Cardiovascular Exam Cardiovascular Exam: +S1, +S2. absent: Murmur - GI/Abdominal Exam GI & Abdominal Exam: Soft, Normal Bowel Sounds. absent: Distended, Tenderness - Extremities Exam Extremities Exam: Normal Inspection. absent: Pedal Edema, Tenderness - Neurological Exam Neurological Exam: Alert, Awake, Oriented x3 - Psychiatric Exam Psychiatric exam: Normal Affect, Normal Mood - Skin Skin Exam: Dry, Intact, Normal Color, Warm Assessment and Plan - Assessment and Plan (Free Text) Plan: NSTEMI Hx of Hypertension, Type 2 Diabetes, Systolic Heart Failure, Dilated, Nonishemic Cardiomyopathy, Decompensated Alcohol Cirrhosis Imaging: - ECHO: LVEF 36% systolic dysfunction - S/P Cardiac Catherization: 1. Normal coronaries 2. EF 25%, dialted non ischemic CMP, EDP 36, no Management: - Continue with Losartan 25mg PO daily - Patient is for Life Vest now, ICD eval after 3 months Objective - Vital Signs/Intake and Output Vital Signs (last 24 hours): Temp Pulse Resp BP Pulse Ox 98.4 F 78 20 161/101 H 98 05/16/18 16:00 05/16/18 16:00 05/16/18 16:00 05/16/18 16:00 05/16/18 16:00 Intake and Output: 05/16/18 05/17/18 18:59 06:59 Intake Total 860 Output Total 600 Balance 260 - Medications Medications: Current Medications Ascorbic Acid (Vitamin C 500 Mg Tab) 500 mg PO TID [facility] Last Admin: 05/16/18 17:44 Dose: 500 mg Folic Acid (Folic Acid) 1 mg PO DAILY [facility] Last Admin: 05/16/18 10:10 Dose: 1 mg Furosemide (Lasix) 20 mg PO Q12 [facility] Last Admin: 05/16/18 10:10 Dose: 20 mg Insulin Aspart (Novolog) 0 unit SC ACHS [facility]; Protocol Last Admin: 05/16/18 17:42 Dose: Not Given Lactulose (Enulose) 20 gm PO DAILY [facility] Last Admin: 05/16/18 10:10 Dose: 20 gm Losartan Potassium (Cozaar) 25 mg PO DAILY [facility] Last Admin: 05/16/18 10:10 Dose: 25 mg Magnesium Oxide (Mag-Ox) 400 mg PO DAILY [facility] Last Admin: 05/16/18 10:11 Dose: 400 mg Multivitamins (Hexavitamin) 1 tab PO DAILY [facility] Last Admin: 05/16/18 10:10 Dose: 1 tab Nystatin (Nystatin Oral Susp) 5 ml PO QID [facility] Last Admin: 05/16/18 17:43 Dose: 5 ml Petrolatum (Desitin Original) 0 gm TOP DAILY [facility] Last Admin: 05/16/18 10:13 Dose: 1 applic Propranolol HCl (Inderal) 10 mg PO TID [facility] Last Admin: 05/16/18 17:42 Dose: 10 mg Sitagliptin Phosphate (Januvia) 25 mg PO DAILY [facility] Last Admin: 05/16/18 10:12 Dose: 25 mg Spironolactone (Aldactone) 25 mg PO BID [facility] Last Admin: 05/16/18 17:42 Dose: 25 mg Thiamine HCl (Vitamin B1 Tab) 200 mg PO TID [facility] Last Admin: 05/16/18 17:44 Dose: 200 mg Tramadol HCl (Ultram) 25 mg PO BID PRN PRN Reason: Pain, moderate (4-7) Last Admin: 05/16/18 00:53 Dose: 25 mg Zinc Sulfate (Zinc Sulfate 220 Mg Cap) 220 mg PO DAILY [facility] Last Admin: 05/16/18 10:10 Dose: 220 mg - Labs Labs: 05/16/18 06:32 05/16/18 06:32 PT 18.0 SECONDS (9.7-12.2) H 05/11/18 05:42 INR 1.6 05/11/18 05:42 APTT 38 SECONDS (21-34) H 05/06/18 06:22
[2018-05-17] MEDS: Albuterol-Ipratrop 3 mg / 0.5 (3 ml) UD INH SCH ×5 (01:01→19:16)
[2018-05-17] MEDS: Tramadol 25 mg PO PRN (01:22)
[2018-05-17] MEDS: (Novolog) Insulin Aspart, Recombinant 100 u/ml 10 ml vial SC SCH ×4 (07:43→22:36)
[2018-05-17] MEDS: Magnesium Oxide 400 mg Tab UD PO SCH (09:26)
[2018-05-17] MEDS: Multiple Vitamins Tab PO SCH (09:27)
[2018-05-17] MEDS: Zinc Oxide Topical 30 gm Tube TOP SCH (10:11)
[2018-05-17] MEDS: Nystatin 100,000 Units/ml Oral Susp 5 ml UD PO SCH ×5 (10:12→21:22)
--- NOTE | 2018-05-17 11:34 | VASCLAB ---
Date of service: 05/17/2018 PROCEDURE: Right Upper Extremity Venous Duplex Exam HISTORY: Right arm pain PRIORS: None. TECHNIQUE: Right upper extremity, internal jugular, subclavian, axillary, brachial, ulnar, radial, basilic and upper cephalic veins were evaluated. Flow was assessed with color Doppler, compressibility, assessment of phasic flow and augmentation response. Report prepared by DEBORAH Gordon FINDINGS: RIGHT: 1. Internal Jugular: 1.1. Compressibility - Fully compressible: Thrombus - None : Flow - Phasic: Augmentation -Normal: Reflux - None. 2. Subclavian: 2.1. Compressibility - Fully compressible: Thrombus - None : Flow - Phasic: Augmentation -Normal: Reflux - None. 3. Axillary: 3.1. Compressibility - Fully compressible: Thrombus - None : Flow - Phasic: Augmentation -Normal: Reflux - None. 4. Brachial: 4.1. Compressibility - Fully compressible: Thrombus - None: Flow - Phasic: Augmentation -Normal: Reflux - None. 5. Ulnar: 5.1. Compressibility - Fully compressible: Thrombus - None: Flow - Phasic: Augmentation -Normal: Reflux - None. 6. Radial: 6.1. Compressibility - Fully compressible: Thrombus - None: Flow - Phasic: Augmentation - Normal: Reflux - None. 7. Cephalic: 7.1. Compressibility - Fully compressible: Thrombus - None: Flow - Phasic: Augmentation -Normal: Reflux - None. 8. Basilic: 8.1. Compressibility - Fully compressible: Thrombus - None: Flow - Phasic: Augmentation -Normal: Reflux - None. OTHER FINDINGS: Right: None. IMPRESSION: Right: No evidence of vein thrombosis of the right upper extremity with excellent venous flow. Normal valve function noted of the right side. Normal venous flow noted in the left internal jugular and left subclavian veins.
[2018-05-17 11:51] LABS: BLOOD UREA NITROGEN 16 mg/dL (9-20); CALCIUM 8.7 mg/dl (8.6-10.4); GFR NON-AFRICAN AMERICAN > 60
[2018-05-17] MEDS: Magnesium Sulfate 1 gm in D5W 1 GM/100 ML BAG IVPB SCH ×2 (12:28→12:29)
[2018-05-17] MEDS: Benzocaine/Menthol (Cepacol) Lozenge MT PRN ×2 (12:28→18:10)
--- NOTE | 2018-05-17 23:01 | CP.PCM.PN ---
Subjective - Date & Time of Evaluation Date of Evaluation: 05/17/18 Time of Evaluation: 23:01 - Subjective Subjective: AFEBRILE, AWAKE AND ALERT C/O SORE THROAT RT. LEG ULCERATION AND RASH IMPROVING ON IV ZOSYN CXR 05/13/18- WELL INFLATED LUNGS, MODERATE CARDIOMEGALY WITH PVC. LABS; REVIEWED Objective - Vital Signs/Intake and Output Vital Signs (last 24 hours): Temp Pulse Resp BP Pulse Ox 98.9 F 88 20 153/89 H 97 05/17/18 16:00 05/17/18 16:00 05/17/18 16:00 05/17/18 21:23 05/17/18 16:00 Intake and Output: 05/17/18 05/18/18 18:59 06:59 Intake Total 360 600 Output Total 1000 Balance 360 -400 - Medications Medications: Current Medications Albuterol/Ipratropium (Duoneb 3 Mg/0.5 Mg (3 Ml) Ud) 3 ml INH RQ6 [facility] Last Admin: 05/17/18 19:16 Dose: 3 ml Ascorbic Acid (Vitamin C 500 Mg Tab) 500 mg PO TID [facility] Last Admin: 05/17/18 18:07 Dose: 500 mg Benzocaine/Menthol (Cepacol Sore Throat) 1 francisco MT Q6 PRN PRN Reason: Sore Throat Last Admin: 05/17/18 18:10 Dose: 1 francisco Folic Acid (Folic Acid) 1 mg PO DAILY [facility] Last Admin: 05/17/18 09:27 Dose: 1 mg Furosemide (Lasix) 20 mg PO Q12 [facility] Last Admin: 05/17/18 21:23 Dose: 20 mg Insulin Aspart (Novolog) 0 unit SC ACHS [facility]; Protocol Last Admin: 05/17/18 22:36 Dose: Not Given Lactulose (Enulose) 20 gm PO DAILY [facility] Last Admin: 05/17/18 09:26 Dose: 20 gm Losartan Potassium (Cozaar) 25 mg PO DAILY [facility] Last Admin: 05/17/18 09:27 Dose: 25 mg Magnesium Oxide (Mag-Ox) 400 mg PO DAILY [facility] Last Admin: 05/17/18 09:26 Dose: 400 mg Multivitamins (Hexavitamin) 1 tab PO DAILY [facility] Last Admin: 05/17/18 09:27 Dose: 1 tab Nystatin (Nystatin Oral Susp) 5 ml PO QID [facility] Last Admin: 05/17/18 21:22 Dose: Not Given Petrolatum (Desitin Original) 0 gm TOP DAILY [facility] Last Admin: 05/17/18 10:11 Dose: 1 applic Propranolol HCl (Inderal) 10 mg PO TID [facility] Last Admin: 05/17/18 18:06 Dose: 10 mg Sitagliptin Phosphate (Januvia) 25 mg PO DAILY [facility] Last Admin: 05/17/18 09:26 Dose: 25 mg Spironolactone (Aldactone) 25 mg PO BID [facility] Last Admin: 05/17/18 18:07 Dose: 25 mg Thiamine HCl (Vitamin B1 Tab) 200 mg PO TID [facility] Last Admin: 05/17/18 18:07 Dose: 200 mg Tramadol HCl (Ultram) 25 mg PO BID PRN PRN Reason: Pain, moderate (4-7) Last Admin: 05/17/18 01:22 Dose: 25 mg Zinc Sulfate (Zinc Sulfate 220 Mg Cap) 220 mg PO DAILY [facility] Last Admin: 05/17/18 09:27 Dose: 220 mg - Labs Labs: 05/16/18 06:32 05/17/18 11:29 PT 18.0 SECONDS (9.7-12.2) H 05/11/18 05:42 INR 1.6 05/11/18 05:42 APTT 38 SECONDS (21-34) H 05/06/18 06:22 - Constitutional Appears: No Acute Distress - Head Exam Head Exam: NORMAL INSPECTION - Eye Exam Eye Exam: EOMI, PERRL. absent: Scleral icterus - ENT Exam ENT Exam: Mucous Membranes Moist, Normal Oropharynx - Neck Exam Neck Exam: Normal Inspection - Respiratory Exam Respiratory Exam: Clear to Ausculation Bilateral - Cardiovascular Exam Cardiovascular Exam: REGULAR RHYTHM, +S1, +S2 - GI/Abdominal Exam GI & Abdominal Exam: Soft, Normal Bowel Sounds (+VE ASCITES) - Extremities Exam Extremities Exam: Pedal Edema (RASH RLE IMPROVING.). absent: Calf Tenderness - Neurological Exam Neurological Exam: Alert, Awake, CN II-XII Intact, Oriented x3, Reflexes Normal - Psychiatric Exam Psychiatric exam: Normal Mood - Skin Skin Exam: Rash (GENERALIZED PSORIASIS SCALY RASH ELBOWS.TRUNK,LE) Assessment and Plan (1) Sepsis Status: Acute (2) Abdominal pain Status: Acute (3) Alcohol abuse Status: Acute (4) Leg abrasion Status: Acute (5) Leg edema Status: Acute (6) Psoriasiform dermatitis Status: Acute (7) Alcoholic cirrhosis of liver Status: Chronic (8) Thrombocytopenia concurrent with and due to alcoholism Status: Acute - Assessment and Plan (Free Text) Plan: DC iv ZOSYN 3.375 iv PIGGYBACK EVERY 8 HOURLY 05/05/18 PO AUGMENTIN 875 MG PO BID X 10 DAYS 05/18/18 PO FLORSTAR CAPS 250MG PO HS DAILY X 10DAYS. CEPACOL LOZENGES.PO TID PRN NYSTATIN 5ML PO S/S TID X 7 DAYS. LOCAL WOUND CARE PER WOUND CARE NURSE. PER CONSULTANTS/PMD.
[2018-05-18] MEDS: Albuterol-Ipratrop 3 mg / 0.5 (3 ml) UD INH SCH ×3 (01:35→13:28)
[2018-05-18] MEDS: Amoxicillin-Clav 875-125 mg Tab PO SCH ×2 (03:02→13:49)
[2018-05-18] MEDS: (Novolog) Insulin Aspart, Recombinant 100 u/ml 10 ml vial SC SCH ×2 (07:46→11:37)
[2018-05-18 08:02] VITALS: BP 148/90; PULSE 78; TEMP 98; O2SAT 100
[2018-05-18] MEDS: Nystatin 100,000 Units/ml Oral Susp 5 ml UD PO SCH ×3 (09:31→13:50)
[2018-05-18] MEDS: Zinc Oxide Topical 30 gm Tube TOP SCH (09:31)
[2018-05-18] MEDS: Multiple Vitamins Tab PO SCH (09:32)
[2018-05-18] MEDS: Magnesium Oxide 400 mg Tab UD PO SCH (09:33)
--- NOTE | 2018-05-18 10:45 | PCM.HF ---
Heart Failure Core Measure - Heart Failure Ejection Fraction: Less Than 40 % (EF 36%) ROXI Inhibitor Prescribed: No Contraindication/Reason for not providing: on cozaar Contraindication/Reason for not providing: on proponolol Angiotensin II Receptor Matteo Prescribed: Yes AnticoagulationTherapy for Atrial Fibrillation/Atrialflutter: No Contraindication/Reason for not providing: no afib Aldosterone Antagonist Prescribed: Yes Hydralazine Nitrate Prescribed: No Contraindication/Reason for not providing: as per cardiologyst Implantable Cardioverter Defibrillator Therapy: No Contraindication/Reason for not providing: Has life vest, for ICD as outpatient Cardiac Resynchronization Therapy Prescribed: No Contraindication/Reason for not providing: not indicated - Follow up Will be discharged to: Home Follow Up Date (must be within 7 days from discharge): 05/23/18 Follow Up Time: 10:00
--- NOTE | 2018-05-18 10:51 | CP.PCM.PN ---
Subjective - Date & Time of Evaluation Date of Evaluation: 05/18/18 Time of Evaluation: 10:51 - Subjective Subjective: alert and orientedx3, no sob or chest pains. Objective - Vital Signs/Intake and Output Vital Signs (last 24 hours): Temp Pulse Resp BP Pulse Ox 98 F 78 20 148/90 100 05/18/18 08:00 05/18/18 08:00 05/18/18 08:00 05/18/18 09:33 05/18/18 08:00 Intake and Output: 05/18/18 05/18/18 06:59 18:59 Intake Total 600 240 Output Total 1000 Balance -400 240 - Medications Medications: Current Medications Albuterol/Ipratropium (Duoneb 3 Mg/0.5 Mg (3 Ml) Ud) 3 ml INH RQ6 [facility] Last Admin: 05/18/18 07:23 Dose: 3 ml Amoxicillin/Clavulanate Potassium (Augmentin 875 Mg-125 Mg Tab) 1 tab PO Q12H [facility]; Protocol Last Admin: 05/18/18 03:02 Dose: 1 tab Ascorbic Acid (Vitamin C 500 Mg Tab) 500 mg PO TID [facility] Last Admin: 05/18/18 09:33 Dose: 500 mg Benzocaine/Menthol (Cepacol Sore Throat) 1 francisco MT Q6 PRN PRN Reason: Sore Throat Last Admin: 05/17/18 18:10 Dose: 1 francisco Folic Acid (Folic Acid) 1 mg PO DAILY [facility] Last Admin: 05/18/18 09:32 Dose: 1 mg Furosemide (Lasix) 20 mg PO Q12 [facility] Last Admin: 05/18/18 09:33 Dose: 20 mg Insulin Aspart (Novolog) 0 unit SC ACHS [facility]; Protocol Last Admin: 05/18/18 07:46 Dose: Not Given Lactulose (Enulose) 20 gm PO DAILY [facility] Last Admin: 05/17/18 09:26 Dose: 20 gm Losartan Potassium (Cozaar) 25 mg PO DAILY [facility] Last Admin: 05/18/18 09:32 Dose: 25 mg Magnesium Oxide (Mag-Ox) 400 mg PO DAILY [facility] Last Admin: 05/18/18 09:33 Dose: 400 mg Multivitamins (Hexavitamin) 1 tab PO DAILY [facility] Last Admin: 05/18/18 09:32 Dose: 1 tab Nystatin (Nystatin Oral Susp) 5 ml PO QID [facility] Last Admin: 05/18/18 09:38 Dose: Not Given Petrolatum (Desitin Original) 0 gm TOP DAILY [facility] Last Admin: 05/18/18 09:31 Dose: 1 applic Propranolol HCl (Inderal) 10 mg PO TID [facility] Last Admin: 05/18/18 09:32 Dose: 10 mg Sitagliptin Phosphate (Januvia) 25 mg PO DAILY [facility] Last Admin: 05/18/18 09:33 Dose: 25 mg Spironolactone (Aldactone) 25 mg PO BID [facility] Last Admin: 05/18/18 09:32 Dose: 25 mg Thiamine HCl (Vitamin B1 Tab) 200 mg PO TID [facility] Last Admin: 05/18/18 09:32 Dose: 200 mg Tramadol HCl (Ultram) 25 mg PO BID PRN PRN Reason: Pain, moderate (4-7) Last Admin: 05/17/18 01:22 Dose: 25 mg Zinc Sulfate (Zinc Sulfate 220 Mg Cap) 220 mg PO DAILY [facility] Last Admin: 05/18/18 09:32 Dose: 220 mg - Labs Labs: 05/16/18 06:32 05/17/18 11:29 PT 18.0 SECONDS (9.7-12.2) H 05/11/18 05:42 INR 1.6 05/11/18 05:42 APTT 38 SECONDS (21-34) H 05/06/18 06:22 Assessment and Plan - Assessment and Plan (Free Text) Assessment: 42 year old male admitted with sepsis, s/p cardiac cath, EF 36%, seen and examined. Alert and orientedx3, denies sob or chest pains. Cleared by DR Smith on po augmentinx 10days, Discussed with DR Edwards, plan to discharge home with life vest on and as per DR Barajas will be followed up for ICD in the future. Home care by [facility] is arranged.
--- NOTE | 2018-05-18 22:43 | CP.PCM.DIS ---
Provider - Provider Date of Admission: 05/05/18 17:59 Attending physician: Damaris Edwards MD Consults: 05/05/18 20:26 Infectious Disease Consult Routine Comment: Consulting Provider: Linda Simth Consulting Physician: Linda Smith Reason for Consult: sepsis 05/06/18 06:41 Wound Care [Nursing Referral for Wound Care] Routine Comment: Physician Instructions: Reason For Exam: RLE wounds & Perineal excoriation 05/06/18 10:23 Cardiology Consult Routine Comment: Consulting Provider: Wyatt Barajas Consulting Physician: Wyatt Barajas Reason for Consult: high trop 05/13/18 09:32 Case Management Referral Routine Comment: Physician Instructions: Reason For Exam: CASSIE evaluation as per DR Edwards Reason for Referral: Discharge Planning 05/17/18 12:18 Case Management Referral Routine Comment: Physician Instructions: Reason For Exam: PLEASE ARRANGE WOUND CARE AT HOME Reason for Referral: Discharge Planning Time Spent in preparation of Discharge (in minutes): 45 Hospital Course - Lab Results Lab Results: Micro Results 05/13/18 05:32 Naris MRSA Culture - Final MRSA NOT DETECTED 05/05/18 15:49 Blood-Venous Blood Culture - Final NO GROWTH AFTER 5 DAYS 05/05/18 15:49 Blood-Venous Gram Stain - Final TEST NOT PERFORMED 05/05/18 16:03 Blood-Venous Blood Culture - Final NO GROWTH AFTER 5 DAYS 05/05/18 16:03 Blood-Venous Gram Stain - Final TEST NOT PERFORMED 05/06/18 03:26 Urine,Clean Catch Urine Culture - Final No Growth (<1,000 CFU/ML) 05/06/18 20:31 Stool Ova and Parasite Concentrate Exam - Final 05/06/18 18:07 Stool Stool Culture - Final NO SALMONELLA, SHIGELLA OR CAMPYLOBACTER ISOLATED. 05/05/18 06:00 Sputum Gram Stain - Final 05/05/18 06:00 Sputum Sputum Culture - Final NORMAL ORAL ELISEO 05/06/18 03:24 Leg - Right Gram Stain - Final 05/06/18 03:24 Leg - Right Wound Culture - Final Serratia Marcescens Staphylococcus Aureus 05/06/18 03:23 Nose MRSA Culture (Admit) - Final MRSA NOT DETECTED Most Recent Lab Values WBC 6.6 K/uL (4.8-10.8) 05/16/18 06:32 RBC 3.68 Mil/uL (4.40-5.90) L 05/16/18 06:32 Hgb 8.7 g/dL (12.0-18.0) L 05/16/18 06:32 Hct 27.6 % (35.0-51.0) L 05/16/18 06:32 MCV 75.1 fL (80.0-94.0) L 05/16/18 06:32 MCH 23.7 pg (27.0-31.0) L 05/16/18 06:32 MCHC 31.5 g/dL (33.0-37.0) L 05/16/18 06:32 RDW 25.8 % (11.5-14.5) H 05/16/18 06:32 Plt Count 125 K/uL (130-400) L D 05/16/18 06:32 MPV 8.7 fL (7.2-11.7) 05/16/18 06:32 Neut % (Auto) 47.2 % (50.0-75.0) L 05/16/18 06:32 Lymph % (Auto) 30.4 % (20.0-40.0) 05/16/18 06:32 Nobles % (Auto) 19.5 % (0.0-10.0) H 05/16/18 06:32 Eos % (Auto) 2.1 % (0.0-4.0) 05/16/18 06:32 Baso % (Auto) 0.8 % (0.0-2.0) 05/16/18 06:32 Neut # (Auto) 3.1 K/uL (1.8-7.0) 05/16/18 06:32 Lymph # (Auto) 2.0 K/uL (1.0-4.3) 05/16/18 06:32 Nobles # (Auto) 1.3 K/uL (0.0-0.8) H 05/16/18 06:32 Eos # (Auto) 0.1 K/uL (0.0-0.7) 05/16/18 06:32 Baso # (Auto) 0.1 K/uL (0.0-0.2) 05/16/18 06:32 Neutrophils % (Manual) 95 % (50-75) H 05/09/18 06:24 Band Neutrophils % 1 % (0-2) 05/06/18 03:28 Lymphocytes % (Manual) 3 % (20-40) L 05/09/18 06:24 Monocytes % (Manual) 2 % (0-10) 05/09/18 06:24 Nucleated RBC % 1 % (0-0) H 05/06/18 03:28 Differential Comment 05/07/18 05:34 Platelet Estimate Decreased (NORMAL) L 05/09/18 06:24 Polychromasia Slight 05/09/18 06:24 Hypochromasia (manual) Slight 05/09/18 06:24 Poikilocytosis (manual Slight 05/05/18 15:57 Anisocytosis (manual) Slight 05/09/18 06:24 Microcytosis (manual) Slight 05/06/18 03:28 Target Cells Slight 05/05/18 15:57 Ovalocytes Slight 05/09/18 06:24 Pepe Cells Slight 05/05/18 15:57 PT 18.0 SECONDS (9.7-12.2) H 05/11/18 05:42 INR 1.6 05/11/18 05:42 APTT 38 SECONDS (21-34) H 05/06/18 06:22 Puncture Site Rr 05/06/18 04:20 pCO2 31 mm/Hg (35-45) L 05/06/18 04:20 pO2 121 mm/Hg (80-100) H 05/06/18 04:20 HCO3 24.3 mmol/L (21-28) 05/06/18 04:20 ABG pH 7.46 (7.35-7.45) H 05/06/18 04:20 ABG Total CO2 23.0 mmol/L (22-28) 05/06/18 04:20 ABG O2 Saturation 99.4 % (95-98) H 05/06/18 04:20 ABG Base Excess -0.9 mmol/L (-2.0-3.0) 05/06/18 04:20 ABG Hemoglobin 8.5 g/dL (11.7-17.4) L 05/05/18 21:50 ABG Carboxyhemoglobin 2.7 % (0.5-1.5) H 05/05/18 21:50 POC ABG HHb (Measured) 2.8 % (0.0-5.0) 05/05/18 21:50 ABG Methemoglobin 1.1 % (0.0-3.0) 05/05/18 21:50 Jeff Test Pos 05/06/18 04:20 ABG Potassium 3.6 mmol/L (3.6-5.2) 05/06/18 04:20 VBG pH 7.42 (7.32-7.43) 05/05/18 17:47 VBG pCO2 30 mmHg (40-60) L 05/05/18 17:47 VBG HCO3 20.3 mmol/L 05/05/18 17:47 VBG Total CO2 20.4 mmol/L (22-28) L 05/05/18 17:47 VBG O2 Sat (Calc) 34.1 % (40-65) L 05/05/18 17:47 VBG Base Excess -3.9 mmol/L (0.0-2.0) L 05/05/18 17:47 VBG Potassium 4.0 mmol/L (3.6-5.2) 05/05/18 17:47 A-a O2 Difference 125.0 mm/Hg 05/06/18 04:20 Respiratory Index 1.0 05/06/18 04:20 Hgb O2 Saturation 93.4 % (95.0-98.0) L 05/05/18 21:50 Sodium 143.0 mmol/l (132-148) 05/06/18 04:20 Chloride 117.0 mmol/L (98-107) H 05/06/18 04:20 Glucose 123 mg/dl (75-110) H 05/06/18 04:20 Lactate 1.3 mmol/L (0.7-2.1) 05/06/18 04:20 Vent Mode Prvc 05/06/18 04:20 Mechanical Rate 20 05/06/18 04:20 FiO2 40.0 % 05/06/18 04:20 Tidal Volume 500 05/06/18 04:20 PEEP 5 05/06/18 04:20 Crit Value Called To Ed rn 05/05/18 19:25 Crit Value Called By Annemarie rt 05/05/18 19:25 Crit Value Read Back Y 05/05/18 19:25 Blood Gas Notified Time 195405/05/18 19:25 Sodium 131 mmol/L (132-148) L 05/17/18 11:29 Potassium 4.0 mmol/L (3.6-5.2) 05/17/18 11:29 Chloride 98 mmol/L (98-107) 05/17/18 11:29 Carbon Dioxide 28 mmol/L (22-30) 05/17/18 11:29 Anion Gap 9 (10-20) L 05/17/18 11:29 BUN 16 mg/dL (9-20) 05/17/18 11:29 Creatinine 0.9 mg/dL (0.8-1.5) 05/17/18 11:29 Est GFR ( Amer) > 60 05/17/18 11:29 Est GFR (Non-Af Amer) > 60 05/17/18 11:29 POC Glucose (mg/dL) 97 mg/dL (65-110) 05/18/18 11:30 Random Glucose 108 mg/dL (75-110) 05/17/18 11:29 Lactic Acid 1.3 mmol/L (0.7-2.1) 05/06/18 09:12 Calcium 8.7 mg/dl (8.6-10.4) 05/17/18 11:29 Phosphorus 5.1 mg/dL (2.5-4.5) H 05/16/18 06:32 Magnesium 1.4 mg/dL (1.6-2.3) L 05/17/18 11:29 Total Bilirubin 1.0 mg/dL (0.2-1.3) 05/16/18 06:32 AST 38 U/L (17-59) 05/16/18 06:32 ALT 27 U/L (21-72) 05/16/18 06:32 Alkaline Phosphatase 88 U/L (38-126) 05/16/18 06:32 Ammonia 65 umol/L (9-33) H D 05/06/18 06:22 Total Creatine Kinase 292 U/L (55-170) H 05/06/18 06:22 CK-MB (Mass) 3.60 ng/mL (0.0-3.38) H 05/06/18 06:22 Troponin I 0.1260 ng/mL (0.00-0.120) H* 05/06/18 06:22 NT-Pro-B Natriuret Pep 5130 pg/mL (0-450) H 05/05/18 15:57 Total Protein 6.1 g/dL (6.3-8.3) L 05/16/18 06:32 Albumin 2.5 g/dL (3.5-5.0) L 05/16/18 06:32 Globulin 3.5 gm/dL (2.2-3.9) 05/16/18 06:32 Albumin/Globulin Ratio 0.7 (1.0-2.1) L 05/16/18 06:32 Lipase 229 U/L (23-300) 05/05/18 15:57 Arterial Blood Potassium 3.6 mmol/L (3.6-5.2) 05/06/18 04:20 Venous Blood Potassium 4.0 mmol/L (3.6-5.2) 05/05/18 17:47 Urine Color Tammy (YELLOW) 05/06/18 03:26 Urine Clarity Clear (Clear) 05/06/18 03:26 Urine pH 5.0 (5.0-8.0) 05/06/18 03:26 Ur Specific [place] 1.025 (1.003-1.030) 05/06/18 03:26 Urine Protein 3+ mg/dL (NEGATIVE) H 05/06/18 03:26 Urine Glucose (UA) Normal mg/dL (Normal) 05/06/18 03:26 Urine Ketones Negative mg/dL (NEGATIVE) 05/06/18 03:26 Urine Blood 3+ (NEGATIVE) H 05/06/18 03:26 Urine Nitrate Negative (NEGATIVE) 05/06/18 03:26 Urine Bilirubin Negative (NEGATIVE) 05/06/18 03:26 Urine Urobilinogen 2.0 mg/dL (0.2-1.0) 05/06/18 03:26 Ur Leukocyte Esterase Neg Lexie/uL (Negative) 05/06/18 03:26 Urine WBC (Auto) 9 /hpf (0-5) H 05/06/18 03:26 Urine RBC (Auto) 707 /hpf (0-3) H 05/06/18 03:26 Ur Squamous Epith Cells 1 /hpf (0-5) 05/06/18 03:26 Urine Yeast (Budding) Few /hpf (NEGATIVE) H 12/07/18 03:26 Stool Occult Blood Positive (NEGATIVE) H 05/07/18 12:15 Stool Leukocytes, Qual Negative (NEGATIVE) 05/07/18 08:56 Vancomycin Trough 17.5 ug/mL (5.0-10.0) H 05/07/18 05:34 Urine Opiates Screen Negative (NEGATIVE) 05/06/18 03:26 Urine Methadone Screen Negative (NEGATIVE) 05/06/18 03:26 Ur Barbiturates Screen Negative (NEGATIVE) 05/06/18 03:26 Ur Phencyclidine Scrn Negative (NEGATIVE) 05/06/18 03:26 Ur Amphetamines Screen Negative (NEGATIVE) 05/06/18 03:26 U Benzodiazepines Scrn Negative (NEGATIVE) 05/06/18 03:26 U Oth Cocaine Metabols Negative (NEGATIVE) 05/06/18 03:26 U Cannabinoids Screen Negative (NEGATIVE) 05/06/18 03:26 Alcohol, Quantitative 52 mg/dl (0-10) H 05/05/18 15:57 C. difficile Ag & Toxin Negative (NEGATIVE) 05/07/18 08:56 Blood Type AB POSITIVE 05/06/18 06:22 Antibody Screen Negative 05/06/18 06:22 - Hospital Course Hospital Course: CHIEF COMPLAINT: Brought into the emergency room because of increasing weakness and diarrhea and more worsening weakness. HISTORY OF PRESENT ILLNESS: The patient is a 42-year-old male with a history of alcoholic liver disease, mostly uncontrolled diabetes, history of multiple alcohol withdrawals in the past, also has a history of GI bleed with a small variceal bleeding, liver cirrhosis with ascites, significant psoriatic skin lesions, and also developed skin ulcers recently admitted recently with sepsis. At that time he was hospitalized, he was noted to have MRSA wound infection, and the patient was placed on vancomycin and also he was recovering from the LTAC with antibiotic and hyperbaric oxygen and wound was healing extremely well, and the patient was sent home from there. While he was at home, I spoke to the patient's mother multiple times that he was doing okay until yesterday. Since last night, he started having some shivering. This morning, he was okay, but around noon time, the patient called the patient's mother as well as the patient's brother on the phone saying that he was not feeling well. He was having shaking and his leg is increasing swelling, and also he started having more problem in the leg. He was not having any vomiting, but according to the family he was having some shaking and shivering. In the emergency room, the patient was noted to have tachycardia. He was also having some febrile illness and also a leg ulcer, but he was able to talk and convey information to the attending. Meanwhile, suddenly he developed significant chills, rigor, and there was suspected seizure activities. The patient was given 4 mg of Ativan following that, and he become obtund, become more lethargic, and hypopneic. While I examined the patient and I discussed in the ICU, decided to intubate after I discussed with the patient's mother also. The patient was intubated. He was having significant bleeding in the oral cavity because of the low platelet and hepatic liver cirrhosis. He was intubated with 6.5 size 2 with the GlideScope, post intubation chest x-ray some pulmonary edema noted. He was given antibiotic and code sepsis called in because of the elevated lactate and fever and tachycardia and also there was a concern about the alcoholic withdrawal and alcoholic seizure activities. The patient now intubated. He is coming to intensive care unit. I explained that information to the patient's family. PAST MEDICAL HISTORY: Diabetes, hypertension, chronic liver disease secondary to alcohol and liver cirrhosis, variceal bleeding in the past. PAST SURGICAL HISTORY: The patient had upper endoscopy in 08/2017. He also had a paracentesis in 01/2018. He was also noted to have internal hemorrhoid from colonoscopy, cholelithiasis also noted. No major surgical history. SOCIAL HISTORY: Used to be drinking alcohol; until recently, he used to drink almost to 1 pint every day vodka. He quit alcohol until today. According to the family, it is not clear whether he had any alcohol, but the serum alcohol level was slightly elevated today. REVIEW OF SYSTEMS: Currently, the patient is on ventilator, not responding, sedated. Vital signs otherwise stable. Tachycardia noted. The patient has increasing leg swelling. Abdomen swelling noted and also facial swelling. Family was concerned that he was also having frequent diarrheal episode. PHYSICAL EXAMINATION: GENERAL: Now, the patient is on ventilator with FiO2 of 40%. VITAL SIGNS: Respirations 11, saturation is 100%, pulse rate 130, blood pressure 128/88. CHEST: Good air entry bilaterally. Expiratory wheezing noted. HEART: Irregular heart sound. ABDOMEN: Abdominal tenderness negative, but anasarca and ascites noted. EXTREMITIES: Edema bilaterally noted. The patient has a right leg swelling. There are also significant ulcers noted in the anterior aspect, medial aspect, as well as lateral aspect of the right leg extending all the way to the posterior aspect. The base of this ulcer is very healthy, but some areas of unhealthy skin noted. He also has significant skin excoriations, and the psoriasis skin lesion significantly present throughout the body. LABORATORY DATA: WBC 21.8, hemoglobin 9, hematocrit 29.6, platelet is 56. INR is 1.4. The pre-intubation blood gas analyze is showing pH of 7, pO2 of 77, saturation is 97%. Chemistry: Sodium 140, potassium 4.1, anion bicarb 18, BUN and creatinine normal. Magnesium is 1.4. Troponin slight elevations noted. Alcohol 52 noted. Chest x-ray basilar infiltrate and also hilar infiltrate noted. The patient had a CAT scan of the abdomen and pelvis showing evidence of fluid filled mildly dilated mid and distal bowel loops, mural thickening in the colon, nonspecific colitis, liver cirrhosis, moderate abdominal and pelvic ascites, umbilical vein recanalization, severe decreased anasarca noted. Post-intubation chest x-ray noted, no pneumothorax. ASSESSMENT AND RECOMMENDATION: A 42-year-old male with a history of alcoholic liver disease, again suspected alcohol abuse, psoriatic skin lesion, diabetes, hypertension, mildly positive troponin now, admitted with altered mental status, possibly secondary to the Ativan injection, underlying postictal cannot be ruled out, and also possible alcoholic liver disease with withdrawal, underlying sepsis secondary to possible MRSA infection from the skin cannot be ruled out. The patient was recently on antibiotic with the hyperbaric oxygen, possible recurrent infection at this time. Generalized anasarca, ascites noted, diabetes poorly controlled, mild elevation of the troponin, possible non-ST elevation myocardial infarction, anemia, and also low thrombocytes, thrombocytopenia secondary to possible alcoholism. The patient's condition is very critical. I spoke to the patient's family, mom, as well as the patient's brother in detail. We will continue the aggressive supportive treatment, gastrointestinal evaluation, Infectious Disease evaluation, electrolyte supplementation, hepatic encephalopathy management, deep venous thrombosis and gastrointestinal prophylaxis, and we will continue to monitor the patient. Course in the hospital: Patient initially admitted to the intensive care unit with septic shock and also altered mental status. Patient was initially intubated. He was extubated next day. Patient ammonia level was improving. Patient placed on antibiotic. He started feeling much better. Over the course of few days patient underwent coronary angiogram, the coronary angiogram showing evidence of normal coronaries, but he has having very low ejection fraction, he has possibly ejection fraction of 25%. 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 Patient was treated with aggressively Lasix and Aldactone. Placed also on antibiotic. He improved markedly. His leg swelling got better. Right leg ulcer improved markedly Final diagnosis: Acute respiratory failure, acute respiratory insufficiency status post ventilation. Septic shock alcoholic hepatitis. Alcoholic hepatic encephalopathy Alcoholic liver disease. Psoriasis and psoriatic skin lesions. Diabetes poorly controlled. Hypertensive heart disease. Patient will be discharged home he will follow-up as an outpatient medications reviewed he will be continuing ROXI inhibitors also diuretics LifeVest are applied will follow the patient Discharge Exam - Head Exam Head Exam: NORMAL INSPECTION Discharge Plan - Discharge Medications Prescriptions: RX: Amoxicillin/Clavulanate [Augmentin 875 MG-125 MG Tab] 1 tab PO Q12H #20 tab RX: Losartan [Cozaar] 25 mg PO DAILY #30 tab Saccharomyces Boulardi [Florastor] 250 mg PO HS #10 cap - Follow Up Plan Condition: GOOD Disposition: HOME/ ROUTINE Instructions: Saccharomyces boulardii, Heart Failure, Adult (DC), Sepsis, Adult (DC), Amoxicillin and Clavulanate, Losartan Additional Instructions: right lower extremity clean with NS and apply medihoney and DSD 3x week and PRN Follow up with PMD in 1 week/ follow up with cardiology as advised augmentinbid x10 days/ floraster q hs life vest to continue as advised home care/ home PT/WOUND CARE Referrals: Damaris Edwards MD [Staff Provider] -
== END 2018-05-18 14:47 | disposition home health service (06) | DRG 871 ==
LOC: C.ER 14:35 → C.9E 17:59 → C.9I 18:29 → C.3T 05-13 06:22
PROVIDERS: ADMIT Internal Medicine; ATTEND Internal Medicine
PROC: 0BH17EZ Insertion of Endotracheal Airway into Trachea, Via Natural or Artificial Opening (ICD-10-PCS; principal; 2018-05-05)
PROC: 5A1935Z Respiratory Ventilation, Less than 24 Consecutive Hours (ICD-10-PCS; 2018-05-05)
PROC: 05H933Z Insertion of Infusion Device into Right Brachial Vein, Percutaneous Approach (ICD-10-PCS; 2018-05-09)
PROC: B54MZZA Ultrasonography of Right Upper Extremity Veins, Guidance (ICD-10-PCS; 2018-05-09)
PROC: 4A023N7 Measurement of Cardiac Sampling and Pressure, Left Heart, Percutaneous Approach (ICD-10-PCS; 2018-05-10)
PROC: B2111ZZ Fluoroscopy of Multiple Coronary Arteries using Low Osmolar Contrast (ICD-10-PCS; 2018-05-10)
PROC: B2151ZZ Fluoroscopy of Left Heart using Low Osmolar Contrast (ICD-10-PCS; 2018-05-10)
PROC: 30233L1 Transfusion of Nonautologous Fresh Plasma into Peripheral Vein, Percutaneous Approach (ICD-10-PCS; 2018-05-12)
DX: A41.9 Sepsis, unspecified organism (principal); J96.00 Acute respiratory failure, unspecified whether with hypoxia or hypercapnia; R65.21 Severe sepsis with septic shock; I50.23 Acute on chronic systolic (congestive) heart failure; I42.9 Cardiomyopathy, unspecified; L97.909 Non-pressure chronic ulcer of unspecified part of unspecified lower leg with unspecified severity; I42.6 Alcoholic cardiomyopathy; L97.919 Non-pressure chronic ulcer of unspecified part of right lower leg with unspecified severity; L03.115 Cellulitis of right lower limb; I42.0 Dilated cardiomyopathy; D64.9 Anemia, unspecified; B96.89 Other specified bacterial agents as the cause of diseases classified elsewhere; B95.61 Methicillin susceptible Staphylococcus aureus infection as the cause of diseases classified elsewhere; D69.59 Other secondary thrombocytopenia; K70.31 Alcoholic cirrhosis of liver with ascites; F10.229 Alcohol dependence with intoxication, unspecified; E11.622 Type 2 diabetes mellitus with other skin ulcer; E11.65 Type 2 diabetes mellitus with hyperglycemia; I11.0 Hypertensive heart disease with heart failure; M06.9 Rheumatoid arthritis, unspecified; L40.50 Arthropathic psoriasis, unspecified; I87.2 Venous insufficiency (chronic) (peripheral); J45.909 Unspecified asthma, uncomplicated; K70.11 Alcoholic hepatitis with ascites; K70.40 Alcoholic hepatic failure without coma; K29.70 Gastritis, unspecified, without bleeding; I95.9 Hypotension, unspecified; E66.9 Obesity, unspecified; F32.9 Major depressive disorder, single episode, unspecified; E78.00 Pure hypercholesterolemia, unspecified; Y90.2 Blood alcohol level of 40-59 mg/100 ml; Z86.14 Personal history of Methicillin resistant Staphylococcus aureus infection; Z87.01 Personal history of pneumonia (recurrent); Z87.11 Personal history of peptic ulcer disease; Z82.49 Family history of ischemic heart disease and other diseases of the circulatory system; Z83.3 Family history of diabetes mellitus

== ENCOUNTER 2018-07-07 17:16 | Inpatient (IN) | payer MEDICARE, MEDICAID ==
[2018-07-07 17:18] VITALS: BMI 29.8
[2018-07-07] MEDS ORDERED: Albuterol-Ipratrop 3 mg / 0.5 (3 ml) UD INH STA (20:02)
[2018-07-07 20:13] LABS: BASO % 0.5 % (0.0-2.0); EOS # 0.2 K/uL (0.0-0.7); LYMPH # 1.5 K/uL (1.0-4.3); MEAN CORPUSCULAR HEMOGLOBIN 25.7 pg (27.0-31.0); MONO # 0.7 K/uL (0.0-0.8)
[2018-07-07 20:19] LABS: EOS % 2.7 % (0.0-4.0); LYMPH % 18.6 % (20.0-40.0); MEAN CORPUSCULAR HGB CONC 31.5 g/dL (33.0-37.0); MEAN PLATELET VOLUME 8.5 fL (7.2-11.7); MONO % 8.6 % (0.0-10.0); NEUT # 5.6 K/uL (1.8-7.0); NEUT % 69.6 % (50.0-75.0); NRBC % 0.2 % (0.0-2.0); RBC 5.1 Mil/uL (4.40-5.90)
[2018-07-07 20:21] LABS: INR 1.5; PROTHROMBIN TIME 16.6 SECONDS (9.7-12.2)
[2018-07-07 20:23] LABS: HEMOGLOBIN 13.1 g/dL (12.0-18.0); MEAN CELL VOLUME 81.6 fL (80.0-94.0)
[2018-07-07 20:42] LABS: URINE BACTERIA RARE (<OCC); URINE BILIRUBIN NEGATIVE (NEGATIVE); URINE BLOOD 2+ (NEGATIVE); URINE CLARITY Clear (Clear); URINE GLUCOSE (UA) NORMAL (Normal); URINE LEUKOCYTE ESTERASE NEG Leu/uL (Negative); URINE PROTEIN 2+ mg/dL (NEGATIVE)
[2018-07-07 20:44] LABS: URINE COLOR YELLOW (YELLOW)
[2018-07-07] MEDS ORDERED: Albuterol-Ipratrop 3 mg / 0.5 (3 ml) UD ONE (20:44)
[2018-07-07 20:55] LABS: BARBITURATES, UR NEGATIVE (NEGATIVE); BENZODIAZEPINES, UR NEGATIVE (NEGATIVE); OPIATES, UR NEGATIVE (NEGATIVE); PHENCYCLIDINE, UR NEGATIVE (NEGATIVE)
--- NOTE | 2018-07-07 21:36 | C.PDOC ---
History Of Present Illness 42 year old male presents to ED with complaint of cough for 9 days. Patient also admits to experiencing congestion, SOB, and leg swelling. Patient has a history of liver and heart complications due to alcoholism. Questionable comp liance with medication and claims to being abstinent for 3 months. Patient denies fever and headache. Patient noted to have Cardiac echo show ejection fraction at 25%. Time Seen by Provider: 07/07/18 19:53 Chief Complaint (Nursing): Flu-like Symptoms History Per: Patient History/Exam Limitations: no limitations Onset/Duration Of Symptoms: Days (9) Current Symptoms Are (Timing): Still Present Associated Symptoms: Cough (along with SOB), Nasal Congestion, Other (stephen swelling). denies: Fever, Nausea, Vomiting Past Medical History Reviewed: Historical Data, Nursing Documentation, Vital Signs Vital Signs: Last Vital Signs Temp 98.6 F 07/07/18 17:29 Pulse 103 H 07/07/18 17:29 Resp 18 07/07/18 17:29 BP 146/104 H 07/07/18 17:29 Pulse Ox 100 07/07/18 17:29 - Medical History PMH: Anemia, Anxiety, Arthritis, Asthma, CHF, Depression, Diabetes, Gastrointestinal Ulcer, HTN, Hypercholesterolemia, Peripheral Edema, Pneumonia (3 years ago), Seizures (etoh induced) Denies: Alzheimer's Disease, Atrial Fibrillation, Bipolar Disorder, Bronchitis, Cardia Arrhythmia, COPD, Crohn's Disease, Dementia, Diverticulitis, Emphysema, Fractures, Gastritis, Gall Bladder Disease, Hepatitis, HIV, Hyperthyroidism, Hypothyroidism, Kidney Stones, Migraine, Mitral Valve Prolapse, Multiple Sclerosis, Osteoporosis, Pancreatitis, Parkinson's Disease, Post Traumatic Stress Disorder, Pulmonary Embolism, Chronic Kidney Disease, Rheumatoid Arthritis, Schizophrenia, Sickle Cell Disease, Sexually Transmitted Disease, Sleep Apnea, TIA Surgical History: Endoscopy Denies: Appendectomy, CABG, Carotid Endarterectomy, Cholecystectomy, Coronary Stent, Pacemaker, Tonsillectomy - [facility] Procedures ALCOHOL DETOXIFICATION (05/28/13) CENTRAL VENOUS CATHETER PLACEMENT WITH GUIDANCE (01/31/14) CYSTOSCOPY NEC (06/08/13) DETOXIFICATION SERVICES FOR SUBSTANCE ABUSE TREATMENT (08/14/15) DRAINAGE OF PERITONEAL CAVITY, PERCUTANEOUS APPROACH (02/01/18) DRAINAGE OF RIGHT LOWER LEG SKIN, EXTERNAL APPROACH (10/15/17) EXCISION OF ASCENDING COLON, ENDO, DIAGN (10/29/15) EXCISION OF STOMACH, ENDO, DIAGN (10/29/15) FLUOROSCOPY OF LEFT HEART USING LOW OSMOLAR CONTRAST (05/05/18) FLUOROSCOPY OF MULT COR ART USING L OSM CONTRAST (05/05/18) GROUP PSYCHOTHERAPY (04/21/16) INSERTION OF ENDOTRACHEAL AIRWAY INTO TRACHEA, VIA OPENING (05/05/18) INSERTION OF INFUSION DEV INTO R BRACH VEIN, PERC APPROACH (05/05/18) INSERTION OF INFUSION DEV INTO SUP VENA CAVA, PERC APPROACH (04/10/18) INSPECTION OF UPPER INTESTINAL TRACT, ENDO (08/03/17) MEASURE OF CARDIAC SAMPL & PRESSURE, L HEART, PERC APPROACH (05/05/18) OTHER ENDOSCOPY OF SM INTEST (01/31/14) PACKED CELL TRANSFUSION (01/31/14) RESPIRATORY VENTILATION, LESS THAN 24 CONSECUTIVE HOURS (05/05/18) RETROGRADE PYELOGRAM (06/08/13) TRANSFUSE NONAUT FRESH PLASMA IN PERIPH VEIN, PERC (05/05/18) TRANSFUSE NONAUT FROZEN PLASMA IN PERIPH VEIN, PERC (05/06/15) TRANSFUSE NONAUT RED BLOOD CELLS IN PERIPH VEIN, PERC (04/10/18) ULTRASONOGRAPHY OF LOWER EXTREMITY CONNECTIVE TISSUE (10/15/17) ULTRASONOGRAPHY OF RIGHT UPPER EXTREMITY VEINS, GUIDANCE (05/05/18) ULTRASONOGRAPHY OF SUPERIOR VENA CAVA, GUIDANCE (09/08/17) Family History: States: Diabetes (Father) - Social History Hx Tobacco Use: No Hx Alcohol Use: No (former drinker) Hx Substance Use: No - Immunization History Hx Tetanus Toxoid Vaccination: Yes Hx Influenza Vaccination: Yes Hx Pneumococcal Vaccination: Yes Review Of Systems Constitutional: Negative for: Fever, Chills, Weakness ENT: Positive for: Nose Congestion Cardiovascular: Negative for: Chest Pain, Palpitations Respiratory: Positive for: Cough, Shortness of Breath Gastrointestinal: Negative for: Nausea, Vomiting Musculoskeletal: Positive for: Other (leg swelling) Neurological: Negative for: Weakness, Numbness, Headache, Dizziness Physical Exam - Physical Exam Appears: Non-toxic, Other (appears plethoric in the face, anasacra ) Skin: Other (chronic lesions consistent with psoriasis) Head: Atraumatic, Normacephalic Eye(s): bilateral: Normal Inspection, PERRL, EOMI Neck: Normal ROM, Supple Chest: Symmetrical, No Deformity Cardiovascular: Other (heart sounds distant) Respiratory: No Accessory Muscle Use, No Rales, No Rhonchi, No Wheezing Gastrointestinal/Abdominal: Soft, Ascites (obvious), Other (obese belly) Extremity: Other (lower extremities obese w/ edema) Neurological/Psych: Oriented x3, Normal Speech, Normal Cognition ED Course And Treatment - Laboratory Results Result Diagrams: 07/07/18 20:10 07/07/18 21:27 Lab Results: PT 16.6 SECONDS (9.7-12.2) H 07/07/18 20:06 INR 1.5 07/07/18 20:06 APTT 37 SECONDS (21-34) H 07/07/18 20:06 Urine Color Yellow (YELLOW) 07/07/18 20:26 Urine Clarity Clear (Clear) 07/07/18 20:26 Urine pH 7.0 (5.0-8.0) 07/07/18 20:26 Ur Specific [place] 1.011 (1.003-1.030) 07/07/18 20:26 Urine Protein 2+ mg/dL (NEGATIVE) H 07/07/18 20:26 Urine Glucose (UA) Normal mg/dL (Normal) 07/07/18 20:26 Urine Ketones Negative mg/dL (NEGATIVE) 07/07/18 20:26 Urine Blood 2+ (NEGATIVE) H 07/07/18 20:26 Urine Nitrate Negative (NEGATIVE) 07/07/18 20:26 Urine Bilirubin Negative (NEGATIVE) 07/07/18 20:26 Urine Urobilinogen 4.0 mg/dL (0.2-1.0) 07/07/18 20:26 Ur Leukocyte Esterase Neg Lexie/uL (Negative) 07/07/18 20:26 Urine WBC (Auto) 2 /hpf (0-5) 07/07/18 20:26 Urine RBC (Auto) 27 /hpf (0-3) H 07/07/18 20:26 Urine Bacteria Rare (<OCC) 07/07/18 20:26 Lab Interpretation: Normal (nh4 39 slight elev) ECG Rhythm: Sinus Tachycardia (102) O2 Sat by Pulse Oximetry: 100 Pulse Ox Interpretation: Normal - Radiology CXR: Interpreted by Al CXR Interpretation: Yes: Heart Size, Other (+ mild CHF) Progress Note: EKG and CHEST ONE VIEW ordered for patient. Labs ordered with troponin and drug screen for patient. Pateint given albuterol INH and Lasix IVP. Reevaluation Time: 21:34 Reassessment Condition: Improved - Physician Consult Information Outcome Of Conversation: 0: d/w Dr. Rupali dias to admit, recommends lasix 40 IV Medical Decision Making Medical Decision Making: anasarca and leg edema may be overdrinking diuretics cough/congestion may be related to CHF low 25% EJF noted on recent adm 05/17 lasix ordered flu neg 9 days of evolution low susp of influenza Disposition Doctor Will See Patient In The: Hospital Counseled Patient/Family Regarding: Studies Performed, Diagnosis - Disposition Disposition: HOSPITALIZED Disposition Time: 21:35 Condition: GOOD - POA Core Measure Indicators: Code Sepsis - Clinical Impression Clinical Impression: CHF (congestive heart failure), Liver failure - Scribe Statement The provider has reviewed the documentation as recorded by the Scribe (Stacey Loving) All medical record entries made by the Scribe were at my direction and personally dictated by me. I have reviewed the chart and agree that the record accurately reflects my personal performance of the history, physical exam, medical decision making, and the department course for this patient. I have also personally directed, reviewed, and agree with the discharge instructions and disposition.
[2018-07-07 21:47] LABS: ALB/GLOB RATIO 0.7 (1.0-2.1); ALBUMIN 2.4 g/dL (3.5-5.0); ALT/SGPT 53 U/L (21-72); AST/SGOT 98 U/L (17-59); BLOOD UREA NITROGEN 18 mg/dL (9-20); CALCIUM 6.8 mg/dl (8.6-10.4); GFR NON-AFRICAN AMERICAN > 60
[2018-07-07 21:57] LABS: B-TYPE NATRIURETIC PEPTIDE 5660 pg/mL (0-450)
--- NOTE | 2018-07-07 23:00 | CP.PCM.HP ---
History of Present Illness - History of Present Illness History of Present Illness: Chief complaints: Cough, shortness of breath and leg swelling. HPI: 43-year-old male with a history of liver disease, diabetes, psoriasis, psoriatic arthritis, recurrent sepsis and recurrent skin infections, alcoholic liver disease, liver cirrhosis brought in by the family member today because of the worsening leg swelling, leg ulcers and leaking skin changes in the legs bilaterally. Patient came to the emergency room with increasing leg swelling. Not feeling well. He was also complaining of shortness of breath. Patient denied any chest pain. Mild cough noted. Mostly dry. He was also complaining of some body pain Patient in the past has hospitalized multiple times with a chronic leg ulcer, sepsis and septic shock. Patient also has a significant skin changes secondary to psoriasis In the past patient had a multiple skin ulcers, excoriation of the skin, psoriatic skin changes noted. But now patient had blisterlike skin lesions on the right leg, broke and started having diffuse skin ulcers in the lower extremity on the right leg and also some on the left leg noted. Some of the skin lesions foul-smelling, with some discharge present. he is having some hard time in walking. Patient also has diabetes, not controlled well recently PMHx: Diabetes, hypertension, chronic liver disease, alcoholic liver disease, variceal PSHx: history of endoscopy/colonoscopy Allergies: NKDA Family hx: Father: history of heart transplant; Mother: hypertension/diabetes Social Hx: past h/o alcohol consumption (~1pint of vodka per day), denies illicit drug use and former tobacco use Endoscopy hx: Endoscopy/Colonoscopy completed in 10/2015 - revealed grade 1 esophageal varices, LA Grade B Esophagitis, internal hemorrhoids, edema of the ascending colon ROS: headache noted. Bleeding gums noted. No chest pain. Coughing noted, Mucus production present. No fever. No abdominal distention. Patient has no diarrhea or bleeding. Bilateral leg swelling leg edema noted. No scrotal swelling noted Vital signs reviewed No neck vein distention noted Chest good air entry bilaterally, no wheezing or rales noted CVS regular heart sound, no murmur noted abdominal distention noted pedal edema noted Patient has a multiple geographic skin lesions in the right leg occupying the right middle one third of the leg in the anterior aspect, medial as well as lateral aspect and also some skin lesion in the proximal leg noted. There is also some blisterlike skin on the left side noted. [employer] REPA[employer] alert awake oriented -3, no functional neurological deficit patient is having tremor Psoriatic skin lesions labs reviewed Nonspecific. chest x-ray negative. Assessment and recommended 42-year-old male, hypertension, alcoholic liver disease, diabetes, psoriasis admitted with multiple skin ulcers, multipl medical problems including diabetes Hypertension Hypercholesteremia. Also patient has ae Chronic heart disease, congestive heart failure, systolic heart failure. 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 Patient possibly has a cardiomyopathy. Associate with the decompensated heart failure now. Systolic in character. Leg edema noted. Shortness of breath. Will continue the Lasix. Labs ordered. We will continue to monitor Present on Admission - Present on Admission Any Indicators Present on Admission: No History of DVT/PE: No History of Uncontrolled Diabetes: No Urinary Catheter: No Decubitus Ulcer Present: No Past Patient History - Infectious Disease Hx of Infectious Diseases: None - Past Medical History & Family History Past Medical History?: Yes - Past Social History Smoking Status: Never Smoked - CARDIAC Hx Atrial Fibrillation: No Hx Cardia Arrhythmia: No Hx Congestive Heart Failure: Yes Hx Hypercholesterolemia: Yes Hx Hypertension: Yes Hx Mitral Valve Prolapse: No Hx Pacemaker: No Hx Peripheral Edema: Yes - PULMONARY Hx Asthma: Yes Hx Bronchitis: No Hx Chronic Obstructive Pulmonary Disease (COPD): No Hx Emphysema: No Hx Pneumonia: Yes (3 years ago) Hx Pulmonary Embolism: No Hx Sleep Apnea: No - NEUROLOGICAL Hx Alzheimer's Disease: No Hx Dementia: No Hx Migraine: No Hx Multiple Sclerosis: No Hx Parkinson's Disease: No Hx Seizures: Yes (etoh induced) Hx Transient Ischemic Attacks (TIA): No - HEENT Hx HEENT Problems: Yes Hx Blind: No Hx Cataracts: No Hx Deafness: No Hx Difficulty Chewing: No Hx Epistaxis: No Hx Glaucoma: No Hx Macular Degeneration: No Other/Comment: eye glasses for reading - RENAL Hx Chronic Kidney Disease: No Hx Kidney Stones: No - ENDOCRINE/METABOLIC Hx Hyperthyroidism: No Hx Hypothyroidism: No - HEMATOLOGICAL/ONCOLOGICAL Hx Anemia: Yes Hx Human Immunodeficiency Virus (HIV): No Hx Sickle Cell Disease: No - INTEGUMENTARY Hx Dermatological Problems: Yes Hx Basil Cell: No Hx Jewell: No Hx Cellulitis: No Hx Eczema: No Hx Melanoma: No Hx Psoriasis: Yes Hx Squamous Cell: No Other/Comment: Psoriatic Arthritis, Right LE wounds, Perineal excoriation - MUSCULOSKELETAL/RHEUMATOLOGICAL Hx Arthritis: Yes Hx Fractures: No Hx Osteoporosis: No Hx Rheumatoid Arthritis: No - GASTROINTESTINAL Hx Crohn's Disease: No Hx Diverticulitis: No Hx Gall Bladder Disease: No Hx Gastritis: No Hx Pancreatitis: No - GENITOURINARY/GYNECOLOGICAL Hx Sexually Transmitted Disorders: No - PSYCHIATRIC Hx Anxiety: Yes Hx Bipolar Disorder: No Hx Depression: Yes Hx Post Traumatic Stress Disorder: No Hx Schizophrenia: No Hx Substance Use: No - SURGICAL HISTORY Hx Appendectomy: No Hx Carotid Endarterectomy: No Hx Cholecystectomy: No Hx Coronary Artery Bypass Graft: No Hx Coronary Stent: No Hx Tonsillectomy: No - ANESTHESIA Hx Anesthesia: Yes Hx Anesthesia Reactions: No Hx Malignant Hyperthermia: No Meds Allergies/Adverse Reactions: Allergies Allergy/AdvReac Type Severity Reaction Status Date / Time No Known Allergies Allergy Verified 04/10/18 14:55 Results - Vital Signs Recent Vital Signs: Last Vital Signs Temp 98.1 F 07/07/18 22:59 Pulse 84 07/07/18 22:59 Resp 20 07/07/18 22:59 BP 124/80 07/07/18 22:59 Pulse Ox 97 07/07/18 22:59 - Labs Result Diagrams: 07/07/18 20:10 07/08/18 11:20 Labs: Laboratory Results - last 24 hr 07/07/18 07/07/18 07/07/18 20:06 20:06 20:06 WBC RBC Hgb Hct MCV MCH MCHC RDW Plt Count MPV Neut % (Auto) Lymph % (Auto) [place] % (Auto) Eos % (Auto) Baso % (Auto) Neut # (Auto) Lymph # (Auto) [place] # (Auto) Eos # (Auto) Baso # (Auto) PT 16.6 H INR 1.5 APTT 37 H Sodium Potassium Chloride Carbon Dioxide Anion Gap BUN Creatinine Est GFR ( Amer) Est GFR (Non-Af Amer) Random Glucose Calcium Total Bilirubin AST ALT Alkaline Phosphatase Ammonia 39 H D Troponin I NT-Pro-B Natriuret Pep Total Protein Albumin Globulin Albumin/Globulin Ratio Urine Color Urine Clarity Urine pH Ur Specific [place] Urine Protein Urine Glucose (UA) Urine Ketones Urine Blood Urine Nitrate Urine Bilirubin Urine Urobilinogen Ur Leukocyte Esterase Urine WBC (Auto) Urine RBC (Auto) Urine Bacteria Urine Opiates Screen Urine Methadone Screen Ur Barbiturates Screen Ur Phencyclidine Scrn Ur Amphetamines Screen U Benzodiazepines Scrn U Oth Cocaine Metabols U Cannabinoids Screen Alcohol, Quantitative Influenza Typ A,B (EIA) Negative for flu a/b 07/07/18 07/07/18 07/07/18 20:10 20:26 20:26 WBC 8.0 RBC 5.10 Hgb 13.1 D Hct 41.6 MCV 81.6 D MCH 25.7 L MCHC 31.5 L RDW 21.0 H Plt Count 73 L D MPV 8.5 Neut % (Auto) 69.6 Lymph % (Auto) 18.6 L [place] % (Auto) 8.6 Eos % (Auto) 2.7 Baso % (Auto) 0.5 Neut # (Auto) 5.6 Lymph # (Auto) 1.5 [place] # (Auto) 0.7 Eos # (Auto) 0.2 Baso # (Auto) 0.0 PT INR APTT Sodium Potassium Chloride Carbon Dioxide Anion Gap BUN Creatinine Est GFR ( Amer) Est GFR (Non-Af Amer) Random Glucose Calcium Total Bilirubin AST ALT Alkaline Phosphatase Ammonia Troponin I NT-Pro-B Natriuret Pep Total Protein Albumin Globulin Albumin/Globulin Ratio Urine Color Yellow Urine Clarity Clear Urine pH 7.0 Ur Specific [place] 1.011 Urine Protein 2+ H Urine Glucose (UA) Normal Urine Ketones Negative Urine Blood 2+ H Urine Nitrate Negative Urine Bilirubin Negative Urine Urobilinogen 4.0 Ur Leukocyte Esterase Neg Urine WBC (Auto) 2 Urine RBC (Auto) 27 H Urine Bacteria Rare Urine Opiates Screen Negative Urine Methadone Screen Negative Ur Barbiturates Screen Negative Ur Phencyclidine Scrn Negative Ur Amphetamines Screen Negative U Benzodiazepines Scrn Negative U Oth Cocaine Metabols Negative U Cannabinoids Screen Negative Alcohol, Quantitative Influenza Typ A,B (EIA) 07/07/18 21:27 WBC RBC Hgb Hct MCV MCH MCHC RDW Plt Count MPV Neut % (Auto) Lymph % (Auto) [place] % (Auto) Eos % (Auto) Baso % (Auto) Neut # (Auto) Lymph # (Auto) [place] # (Auto) Eos # (Auto) Baso # (Auto) PT INR APTT Sodium 134 Potassium 3.2 L Chloride 100 Carbon Dioxide 26 Anion Gap 11 BUN 18 Creatinine 1.0 Est GFR ( Amer) > 60 Est GFR (Non-Af Amer) > 60 Random Glucose 175 H D Calcium 6.8 L Total Bilirubin 1.7 H AST 98 H D ALT 53 Alkaline Phosphatase 124 Ammonia Troponin I 0.0580 NT-Pro-B Natriuret Pep 5660 H Total Protein 5.7 L Albumin 2.4 L Globulin 3.4 Albumin/Globulin Ratio 0.7 L Urine Color Urine Clarity Urine pH Ur Specific [place] Urine Protein Urine Glucose (UA) Urine Ketones Urine Blood Urine Nitrate Urine Bilirubin Urine Urobilinogen Ur Leukocyte Esterase Urine WBC (Auto) Urine RBC (Auto) Urine Bacteria Urine Opiates Screen Urine Methadone Screen Ur Barbiturates Screen Ur Phencyclidine Scrn Ur Amphetamines Screen U Benzodiazepines Scrn U Oth Cocaine Metabols U Cannabinoids Screen Alcohol, Quantitative < 10 Influenza Typ A,B (EIA)
[2018-07-08] MEDS ORDERED: Potassium Chloride 20 mEq ER Tab PO ONE (01:58)
[2018-07-08] MEDS: Albuterol-Ipratrop 3 mg / 0.5 (3 ml) UD INH SCH ×5 (07:15→23:50)
--- NOTE | 2018-07-08 08:31 | RAD ---
HISTORY: SOB COMPARISON: Chest x-ray performed 05/13/18 TECHNIQUE: Chest, one view. FINDINGS: Examination limited by habitus and hypoinflation. LUNGS: Mild pulmonary venous congestion favored over vascular crowding due to hypoinflation. Evidence of central vascular prominence. Please note that chest x-ray has limited sensitivity for the detection of pulmonary masses. PLEURA: No significant pleural effusion identified. No definite pneumothorax . CARDIOVASCULAR: Marked cardiomegaly with CTR approximately 19.6/29.4. No significant atherosclerotic calcification present. Degenerative changes. OSSEOUS STRUCTURES: No acute osseous abnormality is detected. VISUALIZED UPPER ABDOMEN: Unremarkable. OTHER FINDINGS: None. IMPRESSION: Mild pulmonary venous congestion favored over vascular crowding due to hypoinflation. Evidence of central vascular prominence. Cardiomegaly. Correlate clinically.
[2018-07-08] MEDS ORDERED: DESOXIMETASONE TP SCH (10:00)
[2018-07-08] MEDS ORDERED: Propranolol 5 mg Tab PO SCH (10:00)
[2018-07-08] MEDS ORDERED: MethylPREDNISolone 40 mg Vial IVP SCH (10:00)
[2018-07-08] MEDS: MethylPREDNISolone 40 mg Vial IVP SCH ×2 (10:35→21:44)
[2018-07-08] MEDS: Mupirocin 2% Ointment (NASAL) NAS SCH ×2 (10:35→17:35)
[2018-07-08] MEDS: Magnesium Oxide 400 mg Tab UD PO SCH (10:35)
[2018-07-08] MEDS: Nystatin 100,000 Units/ml Oral Susp 5 ml UD PO SCH ×4 (10:35→21:43)
[2018-07-08] MEDS: Pantoprazole 40 mg EC Tab PO SCH (10:35)
[2018-07-08 11:40] LABS: ALB/GLOB RATIO 0.7 (1.0-2.1); ALBUMIN 2.2 g/dL (3.5-5.0); ALT/SGPT 53 U/L (21-72); AST/SGOT 83 U/L (17-59); BLOOD UREA NITROGEN 16 mg/dL (9-20); CALCIUM 6.8 mg/dl (8.6-10.4); GFR NON-AFRICAN AMERICAN > 60
[2018-07-08] MEDS: Ammonium Lactate 12% Lotion (225 g) EXT SCH (14:30)
[2018-07-08] MEDS: Propranolol 5 mg Tab PO SCH ×2 (14:30→21:43)
[2018-07-08] MEDS: Budesonide 0.5 mg/2 ml Inhal Susp UD INH SCH (19:02)
[2018-07-08] MEDS: Saccharomyces Boulardi 250 mg Cap PO SCH (21:43)
[2018-07-09] MEDS: Albuterol-Ipratrop 3 mg / 0.5 (3 ml) UD INH SCH ×6 (03:23→23:43)
[2018-07-09] MEDS: Budesonide 0.5 mg/2 ml Inhal Susp UD INH SCH ×2 (07:23→19:02)
[2018-07-09] MEDS: Propranolol 5 mg Tab PO SCH ×3 (08:39→21:31)
[2018-07-09] MEDS: GlipiZIDE 2.5 mg SR Tab PO SCH (08:39)
[2018-07-09] MEDS: Pantoprazole 40 mg EC Tab PO SCH (09:15)
[2018-07-09] MEDS: Nystatin 100,000 Units/ml Oral Susp 5 ml UD PO SCH ×5 (09:16→21:35)
[2018-07-09] MEDS: Magnesium Oxide 400 mg Tab UD PO SCH (09:16)
[2018-07-09] MEDS: MethylPREDNISolone 40 mg Vial IVP SCH ×2 (09:16→21:31)
[2018-07-09] MEDS: Mupirocin 2% Ointment (NASAL) NAS SCH ×2 (09:17→19:46)
[2018-07-09] MEDS: Ammonium Lactate 12% Lotion (225 g) EXT SCH (09:17)
[2018-07-09] MEDS: (Novolin R) Insulin Human Regular 100 units/ml vial SC SCH ×3 (12:32→21:35)
[2018-07-09] MEDS: Saccharomyces Boulardi 250 mg Cap PO SCH (21:31)
[2018-07-10] MEDS: Albuterol-Ipratrop 3 mg / 0.5 (3 ml) UD INH SCH ×5 (03:13→19:55)
[2018-07-10] MEDS: Budesonide 0.5 mg/2 ml Inhal Susp UD INH SCH ×2 (07:27→19:55)
[2018-07-10] MEDS: Propranolol 5 mg Tab PO SCH ×3 (08:27→20:20)
[2018-07-10] MEDS: GlipiZIDE 2.5 mg SR Tab PO SCH (08:27)
[2018-07-10] MEDS: (Novolin R) Insulin Human Regular 100 units/ml vial SC SCH ×4 (08:27→21:31)
[2018-07-10] MEDS: MethylPREDNISolone 40 mg Vial IVP SCH (09:56)
[2018-07-10] MEDS: Mupirocin 2% Ointment (NASAL) NAS SCH ×2 (09:57→17:30)
[2018-07-10] MEDS: Pantoprazole 40 mg EC Tab PO SCH (09:57)
[2018-07-10] MEDS: Magnesium Oxide 400 mg Tab UD PO SCH (09:57)
[2018-07-10] MEDS: Nystatin 100,000 Units/ml Oral Susp 5 ml UD PO SCH ×4 (09:58→21:29)
[2018-07-10] MEDS: Ammonium Lactate 12% Lotion (225 g) EXT SCH (09:59)
[2018-07-10] MEDS: Saccharomyces Boulardi 250 mg Cap PO SCH (21:35)
[2018-07-11] MEDS ORDERED: guaiFENesin DM 200 mg-20 mg/10 ml UD PO STA (01:57)
[2018-07-11] MEDS: Albuterol-Ipratrop 3 mg / 0.5 (3 ml) UD INH SCH ×6 (04:30→19:28)
[2018-07-11] MEDS: Budesonide 0.5 mg/2 ml Inhal Susp UD INH SCH ×2 (07:10→19:28)
[2018-07-11] MEDS: (Novolin R) Insulin Human Regular 100 units/ml vial SC SCH ×3 (07:50→17:30)
[2018-07-11] MEDS: Propranolol 5 mg Tab PO SCH ×3 (08:20→20:45)
[2018-07-11] MEDS: GlipiZIDE 2.5 mg SR Tab PO SCH (08:20)
[2018-07-11 08:29] LABS: URINE BACTERIA RARE (<OCC); URINE BILIRUBIN NEGATIVE (NEGATIVE); URINE BLOOD 2+ (NEGATIVE); URINE CLARITY Clear (Clear); URINE COLOR Amber (YELLOW); URINE GLUCOSE (UA) NORMAL (Normal); URINE LEUKOCYTE ESTERASE NEG Leu/uL (Negative); URINE PROTEIN 3+ mg/dL (NEGATIVE)
[2018-07-11] MEDS: Magnesium Oxide 400 mg Tab UD PO SCH (09:13)
[2018-07-11] MEDS: Mupirocin 2% Ointment (NASAL) NAS SCH ×2 (09:13→17:00)
[2018-07-11] MEDS: Pantoprazole 40 mg EC Tab PO SCH (09:13)
[2018-07-11] MEDS: Ammonium Lactate 12% Lotion (225 g) EXT SCH (09:14)
[2018-07-11] MEDS: Nystatin 100,000 Units/ml Oral Susp 5 ml UD PO SCH ×4 (09:15→21:15)
--- NOTE | 2018-07-11 15:29 | RAD ---
Date of service: 07/11/2018 HISTORY: sob COMPARISON: Chest radiograph dated 07/07/2018. TECHNIQUE: Chest AP and lateral FINDINGS: LUNGS: Pulmonary vascular congestion. PLEURA: No significant pleural effusion identified. No pneumothorax apparent. CARDIOVASCULAR: Aortic atherosclerotic calcifications. Cardiomediastinal silhouette stably enlarged. OSSEOUS STRUCTURES: Changed. VISUALIZED UPPER ABDOMEN: Normal. OTHER FINDINGS: None. IMPRESSION: Pulmonary vascular congestion. No focal consolidation or pleural effusion.
--- NOTE | 2018-07-11 18:12 | CP.PCM.PN ---
Subjective - Date & Time of Evaluation Date of Evaluation: 07/08/18 Time of Evaluation: 18:12 - Subjective Subjective: Patient is able to walk. But complaining of shortness of breath on exertion. Patient is eating well. He has a bowel habits normal. Currently on lactulose. Still having some abdominal distention as well as leg swelling. Chest clear Cough noted. Regular heart sounds Labs reviewed nonspecific Assessment: 42-year-old male with a history of liver disease Alcoholic liver disease. Cardiomyopathy. Ejection fraction is less than 30%. Patient is currently admitted with the decompensated likely systolic heart failure. Continue the Lasix. Objective - Vital Signs/Intake and Output Vital Signs (last 24 hours): Temp Pulse Resp BP Pulse Ox 98.7 F 11 L 20 133/93 H 96 07/11/18 16:11 07/11/18 16:11 07/11/18 16:11 07/11/18 16:11 07/11/18 16:11 - Medications Medications: Current Medications Albuterol/Ipratropium (Duoneb 3 Mg/0.5 Mg (3 Ml) Ud) 3 ml INH RQ4 [facility] Last Admin: 07/11/18 16:30 Dose: Not Given Ascorbic Acid (Vitamin C 500 Mg Tab) 500 mg PO Q12 [facility] Last Admin: 07/11/18 09:13 Dose: 500 mg Budesonide (Pulmicort Respules) 0.5 mg INH RQ12 [facility] Last Admin: 07/11/18 07:10 Dose: 0.5 mg Fluocinonide (Lidex 0.05% Cream) 1 gm TOP BID [facility] Last Admin: 07/11/18 09:14 Dose: 1 appl Folic Acid (Folic Acid) 1 mg PO DAILY [facility] Last Admin: 07/11/18 09:13 Dose: 1 mg Glipizide (Glucotrol Xl) 2.5 mg PO BRK [facility] Last Admin: 07/11/18 08:20 Dose: 2.5 mg Insulin Human Regular (Novolin R) 0 unit SC ACHS [facility]; Protocol Last Admin: 07/11/18 12:19 Dose: 2 units Lactic Acid (Lac-Hydrin 12% Lotion (225 G)) 1 gm EXT DAILY [facility] Last Admin: 07/11/18 09:14 Dose: 1 appl Lactulose (Enulose) 20 gm PO BID [facility] Last Admin: 02/11/19 17:02 Dose: Not Given Losartan Potassium (Cozaar) 25 mg PO DAILY [facility] Last Admin: 07/11/18 09:13 Dose: 25 mg Magnesium Oxide (Mag-Ox) 400 mg PO DAILY [facility] Last Admin: 07/11/18 09:13 Dose: 400 mg Mupirocin (Bactroban 2% Nasal) 0.25 gm ORION BID [facility] Last Admin: 07/11/18 17:00 Dose: 0.25 gm Nystatin (Nystatin Oral Susp) 5 ml PO QID [facility] Last Admin: 07/11/18 17:01 Dose: 5 ml Pantoprazole Sodium (Protonix Ec Tab) 40 mg PO DAILY [facility] Last Admin: 07/11/18 09:13 Dose: 40 mg Propranolol HCl (Inderal) 5 mg PO 0800,1400,1999 [facility] Last Admin: 07/11/18 13:11 Dose: 5 mg Saccharomyces Boulardii (Florastor) 250 mg PO HS [facility] Last Admin: 07/10/18 21:35 Dose: 250 mg Spironolactone (Aldactone) 25 mg PO 799,1999 [facility] Last Admin: 07/11/18 08:20 Dose: 25 mg Thiamine HCl (Vitamin B1 Tab) 100 mg PO DAILY [facility] Last Admin: 07/11/18 09:13 Dose: 100 mg - Labs Labs: 07/07/18 20:10 07/08/18 11:20 PT 16.6 SECONDS (9.7-12.2) H 07/07/18 20:06 INR 1.5 07/07/18 20:06 APTT 37 SECONDS (21-34) H 07/07/18 20:06
--- NOTE | 2018-07-11 18:13 | CP.PCM.PN ---
Subjective - Date & Time of Evaluation Date of Evaluation: 07/10/18 Time of Evaluation: 18:13 - Subjective Subjective: Patient is able to walk. But complaining of shortness of breath on exertion. Patient is eating well. He has a bowel habits normal. Currently on lactulose. Complaining of generalized body pain. But no fever noted. Complaining of shortness of breath. We will get the x-ray in the morning. Continue the current treatment Labs reviewed nonspecific Assessment: 42-year-old male with a history of liver disease Alcoholic liver disease. Cardiomyopathy. Ejection fraction is less than 30%. Patient is currently admitted with the decompensated likely systolic heart failure. Continue the Lasix. Objective - Vital Signs/Intake and Output Vital Signs (last 24 hours): Temp Pulse Resp BP Pulse Ox 98.7 F 11 L 20 133/93 H 96 07/11/18 16:11 07/11/18 16:11 07/11/18 16:11 07/11/18 16:11 07/11/18 16:11 - Medications Medications: Current Medications Albuterol/Ipratropium (Duoneb 3 Mg/0.5 Mg (3 Ml) Ud) 3 ml INH RQ4 REPLACED BY [facility] Last Admin: 07/11/18 16:30 Dose: Not Given Ascorbic Acid (Vitamin C 500 Mg Tab) 500 mg PO Q12 REPLACED BY [facility] Last Admin: 07/11/18 09:13 Dose: 500 mg Budesonide (Pulmicort Respules) 0.5 mg INH RQ12 REPLACED BY [facility] Last Admin: 07/11/18 07:10 Dose: 0.5 mg Fluocinonide (Lidex 0.05% Cream) 1 gm TOP BID REPLACED BY [facility] Last Admin: 07/11/18 09:14 Dose: 1 appl Folic Acid (Folic Acid) 1 mg PO DAILY REPLACED BY [facility] Last Admin: 07/11/18 09:13 Dose: 1 mg Glipizide (Glucotrol Xl) 2.5 mg PO BRK REPLACED BY [facility] Last Admin: 07/11/18 08:20 Dose: 2.5 mg Insulin Human Regular (Novolin R) 0 unit SC ACHS REPLACED BY [facility]; Protocol Last Admin: 07/11/18 12:19 Dose: 2 units Lactic Acid (Lac-Hydrin 12% Lotion (225 G)) 1 gm EXT DAILY REPLACED BY [facility] Last Admin: 07/11/18 09:14 Dose: 1 appl Lactulose (Enulose) 20 gm PO BID REPLACED BY [facility] Last Admin: 07/11/18 17:02 Dose: Not Given Losartan Potassium (Cozaar) 25 mg PO DAILY REPLACED BY [facility] Last Admin: 07/11/18 09:13 Dose: 25 mg Magnesium Oxide (Mag-Ox) 400 mg PO DAILY REPLACED BY [facility] Last Admin: 07/11/18 09:13 Dose: 400 mg Mupirocin (Bactroban 2% Nasal) 0.25 gm ORION BID REPLACED BY [facility] Last Admin: 07/11/18 17:00 Dose: 0.25 gm Nystatin (Nystatin Oral Susp) 5 ml PO QID REPLACED BY [facility] Last Admin: 07/11/18 17:01 Dose: 5 ml Pantoprazole Sodium (Protonix Ec Tab) 40 mg PO DAILY REPLACED BY [facility] Last Admin: 07/11/18 09:13 Dose: 40 mg Propranolol HCl (Inderal) 5 mg PO 0800,1400,1999 REPLACED BY [facility] Last Admin: 07/11/18 13:11 Dose: 5 mg Saccharomyces Boulardii (Florastor) 250 mg PO HS REPLACED BY [facility] Last Admin: 07/10/18 21:35 Dose: 250 mg Spironolactone (Aldactone) 25 mg PO 08,1999 REPLACED BY [facility] Last Admin: 07/11/18 08:20 Dose: 25 mg Thiamine HCl (Vitamin B1 Tab) 100 mg PO DAILY REPLACED BY [facility] Last Admin: 07/11/18 09:13 Dose: 100 mg - Labs Labs: 07/07/18 20:10 07/08/18 11:20 PT 16.6 SECONDS (9.7-12.2) H 07/07/18 20:06 INR 1.5 07/07/18 20:06 APTT 37 SECONDS (21-34) H 07/07/18 20:06
--- NOTE | 2018-07-11 18:13 | CP.PCM.PN ---
Subjective - Date & Time of Evaluation Date of Evaluation: 07/09/18 Time of Evaluation: 18:13 - Subjective Subjective: Patient is able to walk. But complaining of shortness of breath on exertion. Patient is eating well. He has a bowel habits normal. Currently on lactulose. Still having some abdominal distention as well as leg swelling. Chest clear Cough noted. Regular heart sounds Labs reviewed nonspecific Assessment: 42-year-old male with a history of liver disease Alcoholic liver disease. Cardiomyopathy. Patient is feeling well. Able to walk. But complaining of body pain today. Leg swelling is better Objective - Vital Signs/Intake and Output Vital Signs (last 24 hours): Temp Pulse Resp BP Pulse Ox 98.7 F 11 L 20 133/93 H 96 07/11/18 16:11 07/11/18 16:11 07/11/18 16:11 07/11/18 16:11 07/11/18 16:11 - Medications Medications: Current Medications Albuterol/Ipratropium (Duoneb 3 Mg/0.5 Mg (3 Ml) Ud) 3 ml INH RQ4 [facility] Last Admin: 07/11/18 16:30 Dose: Not Given Ascorbic Acid (Vitamin C 500 Mg Tab) 500 mg PO Q12 [facility] Last Admin: 07/11/18 09:13 Dose: 500 mg Budesonide (Pulmicort Respules) 0.5 mg INH RQ12 [facility] Last Admin: 07/11/18 07:10 Dose: 0.5 mg Fluocinonide (Lidex 0.05% Cream) 1 gm TOP BID [facility] Last Admin: 07/11/18 09:14 Dose: 1 appl Folic Acid (Folic Acid) 1 mg PO DAILY [facility] Last Admin: 07/11/18 09:13 Dose: 1 mg Glipizide (Glucotrol Xl) 2.5 mg PO BRK [facility] Last Admin: 07/11/18 08:20 Dose: 2.5 mg Insulin Human Regular (Novolin R) 0 unit SC ACHS [facility]; Protocol Last Admin: 07/11/18 12:19 Dose: 2 units Lactic Acid (Lac-Hydrin 12% Lotion (225 G)) 1 gm EXT DAILY [facility] Last Admin: 07/11/18 09:14 Dose: 1 appl Lactulose (Enulose) 20 gm PO BID [facility] Last Admin: 07/11/18 17:02 Dose: Not Given Losartan Potassium (Cozaar) 25 mg PO DAILY [facility] Last Admin: 07/11/18 09:13 Dose: 25 mg Magnesium Oxide (Mag-Ox) 400 mg PO DAILY [facility] Last Admin: 07/11/18 09:13 Dose: 400 mg Mupirocin (Bactroban 2% Nasal) 0.25 gm ORION BID [facility] Last Admin: 07/11/18 17:00 Dose: 0.25 gm Nystatin (Nystatin Oral Susp) 5 ml PO QID [facility] Last Admin: 07/11/18 17:01 Dose: 5 ml Pantoprazole Sodium (Protonix Ec Tab) 40 mg PO DAILY [facility] Last Admin: 07/11/18 09:13 Dose: 40 mg Propranolol HCl (Inderal) 5 mg PO 0800,1400,1999 [facility] Last Admin: 07/11/18 13:11 Dose: 5 mg Saccharomyces Boulardii (Florastor) 250 mg PO HS [facility] Last Admin: 07/10/18 21:35 Dose: 250 mg Spironolactone (Aldactone) 25 mg PO 0800,1999 [facility] Last Admin: 07/11/18 08:20 Dose: 25 mg Thiamine HCl (Vitamin B1 Tab) 100 mg PO DAILY [facility] Last Admin: 07/11/18 09:13 Dose: 100 mg - Labs Labs: 07/07/18 20:10 07/08/18 11:20 PT 16.6 SECONDS (9.7-12.2) H 07/07/18 20:06 INR 1.5 07/07/18 20:06 APTT 37 SECONDS (21-34) H 07/07/18 20:06
--- NOTE | 2018-07-11 18:13 | CP.PCM.PN ---
Subjective - Date & Time of Evaluation Date of Evaluation: 07/11/18 Time of Evaluation: 18:13 - Subjective Subjective: Patient commanding of increasing body pain. Generalized joint pain also noted. Minimal cough noted. But mucus production is less. Shortness of breath noted. Chest x-ray which was done today showing evidence of right lower lung pneumonia likely. I would like to get a CAT scan of the chest. We will also get a CBC CMP Magnesium and phosphorus levels. Currently he is not on any antibiotic. Awaiting for the flu. Will get the labs and will follow the patient Objective - Vital Signs/Intake and Output Vital Signs (last 24 hours): Temp Pulse Resp BP Pulse Ox 98.7 F 11 L 20 133/93 H 96 07/11/18 16:11 07/11/18 16:11 07/11/18 16:11 07/11/18 16:11 07/11/18 16:11 - Medications Medications: Current Medications Albuterol/Ipratropium (Duoneb 3 Mg/0.5 Mg (3 Ml) Ud) 3 ml INH RQ4 [facility] Last Admin: 07/11/18 16:30 Dose: Not Given Ascorbic Acid (Vitamin C 500 Mg Tab) 500 mg PO Q12 [facility] Last Admin: 07/11/18 09:13 Dose: 500 mg Budesonide (Pulmicort Respules) 0.5 mg INH RQ12 [facility] Last Admin: 07/11/18 07:10 Dose: 0.5 mg Fluocinonide (Lidex 0.05% Cream) 1 gm TOP BID [facility] Last Admin: 07/11/18 09:14 Dose: 1 appl Folic Acid (Folic Acid) 1 mg PO DAILY [facility] Last Admin: 07/11/18 09:13 Dose: 1 mg Glipizide (Glucotrol Xl) 2.5 mg PO BRK [facility] Last Admin: 07/11/18 08:20 Dose: 2.5 mg Insulin Human Regular (Novolin R) 0 unit SC ACHS [facility]; Protocol Last Admin: 07/11/18 12:19 Dose: 2 units Lactic Acid (Lac-Hydrin 12% Lotion (225 G)) 1 gm EXT DAILY [facility] Last Admin: 07/11/18 09:14 Dose: 1 appl Lactulose (Enulose) 20 gm PO BID [facility] Last Admin: 07/11/18 17:02 Dose: Not Given Losartan Potassium (Cozaar) 25 mg PO DAILY [facility] Last Admin: 07/11/18 09:13 Dose: 25 mg Magnesium Oxide (Mag-Ox) 400 mg PO DAILY [facility] Last Admin: 07/11/18 09:13 Dose: 400 mg Mupirocin (Bactroban 2% Nasal) 0.25 gm ORION BID [facility] Last Admin: 07/11/18 17:00 Dose: 0.25 gm Nystatin (Nystatin Oral Susp) 5 ml PO QID [facility] Last Admin: 07/11/18 17:01 Dose: 5 ml Pantoprazole Sodium (Protonix Ec Tab) 40 mg PO DAILY [facility] Last Admin: 07/11/18 09:13 Dose: 40 mg Propranolol HCl (Inderal) 5 mg PO 0800,1400,1999 [facility] Last Admin: 07/11/18 13:11 Dose: 5 mg Saccharomyces Boulardii (Florastor) 250 mg PO HS [facility] Last Admin: 07/10/18 21:35 Dose: 250 mg Spironolactone (Aldactone) 25 mg PO 0800,1999 [facility] Last Admin: 07/11/18 08:20 Dose: 25 mg Thiamine HCl (Vitamin B1 Tab) 100 mg PO DAILY [facility] Last Admin: 07/11/18 09:13 Dose: 100 mg - Labs Labs: 07/07/18 20:10 07/08/18 11:20 PT 16.6 SECONDS (9.7-12.2) H 07/07/18 20:06 INR 1.5 07/07/18 20:06 APTT 37 SECONDS (21-34) H 07/07/18 20:06
[2018-07-11 20:25] LABS: BASO % 0.3 % (0.0-2.0); EOS % 0.3 % (0.0-4.0); HEMOGLOBIN 11.1 g/dL (12.0-18.0); LYMPH # 2.3 K/uL (1.0-4.3); LYMPH % 19.5 % (20.0-40.0); MEAN CELL VOLUME 80.7 fL (80.0-94.0); MEAN CORPUSCULAR HEMOGLOBIN 25.7 pg (27.0-31.0); MEAN CORPUSCULAR HGB CONC 31.9 g/dL (33.0-37.0); MEAN PLATELET VOLUME 8.6 fL (7.2-11.7); MONO % 25.4 % (0.0-10.0); NEUT # 6.4 K/uL (1.8-7.0); NEUT % 54.5 % (50.0-75.0); NRBC % 0.4 % (0.0-2.0); PLATELET COUNT 103 K/uL (130-400); RBC 4.32 Mil/uL (4.40-5.90); RED CELL DISTRIBUTION WIDTH 22.1 % (11.5-14.5); WHITE BLOOD COUNT 11.7 K/uL (4.8-10.8)
[2018-07-11] MEDS: Saccharomyces Boulardi 250 mg Cap PO SCH (21:16)
[2018-07-11 21:22] LABS: ALB/GLOB RATIO 0.7 (1.0-2.1); ALBUMIN 2.4 g/dL (3.5-5.0); ALT/SGPT 41 U/L (21-72); AST/SGOT 66 U/L (17-59); BLOOD UREA NITROGEN 17 mg/dL (9-20); CALCIUM 8.8 mg/dl (8.6-10.4); GFR NON-AFRICAN AMERICAN > 60
[2018-07-11 22:38] LABS: PLATELET ESTIMATE DECREASED (NORMAL)
[2018-07-11 22:42] LABS: BANDS 2 % (0-2); LYMPHOCYTE 17 % (20-40); MONOCYTE 28 % (0-10); NEUTROPHIL 53 % (50-75); TOTAL CELLS COUNTED 100
[2018-07-11 22:44] LABS: ANISOCYTOSIS SLIGHT; HYPERSEGMENTATION PRESENT; LARGE PLATELETS PRESENT; POIKILOCYTOSIS SLIGHT; POLYCHROMIC SLIGHT; SMUDGE CELLS PRESENT; SPHEROCYTES SLIGHT; TEARDROP CELLS SLIGHT
[2018-07-12] MEDS: Albuterol-Ipratrop 3 mg / 0.5 (3 ml) UD INH SCH ×5 (00:05→23:19)
[2018-07-12] MEDS: Budesonide 0.5 mg/2 ml Inhal Susp UD INH SCH (07:52)
[2018-07-12] MEDS: GlipiZIDE 2.5 mg SR Tab PO SCH (08:28)
[2018-07-12] MEDS: Propranolol 5 mg Tab PO SCH ×3 (08:28→21:27)
[2018-07-12] MEDS: Magnesium Oxide 400 mg Tab UD PO SCH (09:08)
[2018-07-12] MEDS: Pantoprazole 40 mg EC Tab PO SCH (09:08)
[2018-07-12] MEDS: (Novolin R) Insulin Human Regular 100 units/ml vial SC SCH ×4 (09:09→21:29)
[2018-07-12] MEDS: Ammonium Lactate 12% Lotion (225 g) EXT SCH (09:09)
[2018-07-12] MEDS: Mupirocin 2% Ointment (NASAL) NAS SCH ×2 (09:12→17:48)
[2018-07-12] MEDS: Nystatin 100,000 Units/ml Oral Susp 5 ml UD PO SCH ×4 (09:12→21:28)
--- NOTE | 2018-07-12 10:22 | CT ---
Date of service: 07/11/2018 CT chest without IV contrast Indication: pna Technique: Contiguous axial images were obtained through the chest without intravenous contrast enhancement. Sagittal and coronal reconstructions were generated and reviewed. This CT exam was performed using 1 or more of the following dose reduction techniques: Automated exposure control, adjustment of the MAA and/or kV according to patient size, and/or use of iterative reconstruction technique. Radiation dose (DLP): 1252.23 MGy-cm. Comparison: Chest x-ray performed 07/11/18, CT chest abdomen and pelvis with IV contrast performed 04/11/18 Findings: Examination limited by patient difficulty with breath hold. Visualized portions of the inferior thyroid gland appear heterogeneous with probable hypodense nodule and small calcification at the right lower pole. The mediastinal and hilar vascular structures appear within normal limits. Cardiomegaly. Coronary artery and valvular calcifications. Bibasilar atelectasis/infiltrates. Mild ground-glass opacities/infiltrates within the lingula and left lower lobe. No pleural effusion. No pneumothorax. Limited visualization of the noncontrast upper abdomen : Hypoattenuation of the liver compatible with hepatic steatosis. Partially imaged cholelithiasis. Bilateral gynecomastia. Soft tissue inflammatory changes/stranding or cellulitis within the left chest wall. Posterior right lipoma measures approximately 16 x 26 mm (series 4, image 98). Impression: Mild atelectasis/infiltrates. Mild ground-glass opacities/infiltrates within the lingula and left lower lobe. Hypoattenuation of the liver compatible with hepatic steatosis. Nodular hepatic contour consistent with cirrhosis. Partially imaged cholelithiasis. Soft tissue inflammatory changes/stranding or cellulitis within the left chest wall. Included inferior thyroid gland appears heterogeneous with probable hypodense nodule and small calcification at the right lower pole. Cardiomegaly. Coronary artery and valvular calcifications. Additional findings as above. Preliminary impression was provided by [employer].
--- NOTE | 2018-07-12 18:04 | CP.PCM.PN ---
Subjective - Date & Time of Evaluation Date of Evaluation: 07/12/18 Time of Evaluation: 18:02 - Subjective Subjective: Patient is still feeling facial swelling, and also shortness of breath. Chest tightness noted. He denies any chest pain. Leg swelling also noted. On examination: Blood pressure is elevated. Chest good air entry Regular heart sounds Abdominal distention present Patient is CAT scan of the chest showing no evidence of any acute infiltrate or pleural effusion Assessment and recommendation: 42-year-old male with a history of liver disease admitted to the hospital with a possible decompensated systolic heart failure. We will start the patient on IV Lasix today. Glucose monitoring, elecrolites monitoring, will follow the patient Objective - Vital Signs/Intake and Output Vital Signs (last 24 hours): Temp Pulse Resp BP Pulse Ox 98.3 F 103 H 22 141/97 H 100 07/12/18 15:47 07/12/18 15:47 07/12/18 15:47 07/12/18 15:47 07/12/18 15:47 Intake and Output: 07/12/18 07/12/18 06:59 18:59 Intake Total 600 Output Total 0 Balance 600 - Medications Medications: Current Medications Albuterol/Ipratropium (Duoneb 3 Mg/0.5 Mg (3 Ml) Ud) 3 ml INH RQ4 [facility] Last Admin: 07/12/18 11:40 Dose: Not Given Ascorbic Acid (Vitamin C 500 Mg Tab) 500 mg PO Q12 [facility] Last Admin: 07/12/18 09:08 Dose: 500 mg Budesonide (Pulmicort Respules) 0.5 mg INH RQ12 [facility] Last Admin: 07/12/18 07:52 Dose: Not Given Fluocinonide (Lidex 0.05% Cream) 1 gm TOP BID [facility] Last Admin: 07/12/18 17:47 Dose: 1 appl Folic Acid (Folic Acid) 1 mg PO DAILY [facility] Last Admin: 07/12/18 09:08 Dose: 1 mg Glipizide (Glucotrol Xl) 2.5 mg PO BRK [facility] Last Admin: 07/12/18 08:28 Dose: 2.5 mg Insulin Human Regular (Novolin R) 0 unit SC ACHS [facility]; Protocol Last Admin: 07/12/18 17:45 Dose: Not Given Lactic Acid (Lac-Hydrin 12% Lotion (225 G)) 1 gm EXT DAILY [facility] Last Admin: 07/12/18 09:09 Dose: 1 appl Lactulose (Enulose) 20 gm PO BID [facility] Last Admin: 07/12/18 17:48 Dose: Not Given Losartan Potassium (Cozaar) 25 mg PO DAILY [facility] Last Admin: 07/12/18 09:08 Dose: 25 mg Magnesium Oxide (Mag-Ox) 400 mg PO DAILY [facility] Last Admin: 07/12/18 09:08 Dose: 400 mg Mupirocin (Bactroban 2% Nasal) 0.25 gm ORION BID [facility] Last Admin: 07/12/18 17:48 Dose: 0.25 gm Nystatin (Nystatin Oral Susp) 5 ml PO QID [facility] Last Admin: 07/12/18 17:45 Dose: 5 ml Pantoprazole Sodium (Protonix Ec Tab) 40 mg PO DAILY [facility] Last Admin: 07/12/18 09:08 Dose: 40 mg Propranolol HCl (Inderal) 5 mg PO 0800,1400,2000 [facility] Last Admin: 07/12/18 13:05 Dose: 5 mg Saccharomyces Boulardii (Florastor) 250 mg PO HS [facility] Last Admin: 07/11/18 21:16 Dose: 250 mg Spironolactone (Aldactone) 25 mg PO 0800,1999 [facility] Last Admin: 07/12/18 08:28 Dose: 25 mg Thiamine HCl (Vitamin B1 Tab) 100 mg PO DAILY [facility] Last Admin: 07/12/18 09:08 Dose: 100 mg - Labs Labs: 07/11/18 20:10 07/11/18 20:10 PT 16.6 SECONDS (9.7-12.2) H 07/07/18 20:06 INR 1.5 07/07/18 20:06 APTT 37 SECONDS (21-34) H 07/07/18 20:06
[2018-07-12] MEDS: Saccharomyces Boulardi 250 mg Cap PO SCH (21:27)
[2018-07-13] MEDS: Albuterol-Ipratrop 3 mg / 0.5 (3 ml) UD INH SCH ×6 (03:35→23:14)
[2018-07-13] MEDS: Budesonide 0.5 mg/2 ml Inhal Susp UD INH SCH ×2 (07:15→19:37)
[2018-07-13 07:43] LABS: BASO # 0.1 K/uL (0.0-0.2); BASO % 0.8 % (0.0-2.0); EOS # 0.1 K/uL (0.0-0.7); EOS % 0.5 % (0.0-4.0); HEMOGLOBIN 10.9 g/dL (12.0-18.0); LYMPH # 2.7 K/uL (1.0-4.3); LYMPH % 22.1 % (20.0-40.0); MEAN CORPUSCULAR HEMOGLOBIN 26.1 pg (27.0-31.0); MEAN CORPUSCULAR HGB CONC 31.8 g/dL (33.0-37.0); MEAN PLATELET VOLUME 8.3 fL (7.2-11.7); MONO # 2.3 K/uL (0.0-0.8); MONO % 18.8 % (0.0-10.0); NEUT # 6.9 K/uL (1.8-7.0); NEUT % 57.8 % (50.0-75.0); NRBC % 0.1 % (0.0-2.0); RBC 4.17 Mil/uL (4.40-5.90)
[2018-07-13] MEDS: (Novolin R) Insulin Human Regular 100 units/ml vial SC SCH ×4 (08:02→21:22)
[2018-07-13 08:21] LABS: ALB/GLOB RATIO 0.7 (1.0-2.1); ALBUMIN 2.2 g/dL (3.5-5.0); ALT/SGPT 39 U/L (21-72); AST/SGOT 57 U/L (17-59); BLOOD UREA NITROGEN 16 mg/dL (9-20); CALCIUM 8.3 mg/dl (8.6-10.4); GFR NON-AFRICAN AMERICAN > 60
[2018-07-13] MEDS: GlipiZIDE 2.5 mg SR Tab PO SCH (08:37)
[2018-07-13] MEDS: Propranolol 5 mg Tab PO SCH ×3 (08:37→21:36)
[2018-07-13] MEDS: Magnesium Oxide 400 mg Tab UD PO SCH (09:39)
[2018-07-13] MEDS: Nystatin 100,000 Units/ml Oral Susp 5 ml UD PO SCH ×4 (09:40→21:37)
[2018-07-13] MEDS: Pantoprazole 40 mg EC Tab PO SCH (09:40)
[2018-07-13] MEDS: Ammonium Lactate 12% Lotion (225 g) EXT SCH (09:41)
[2018-07-13] MEDS: Mupirocin 2% Ointment (NASAL) NAS SCH ×2 (09:41→17:48)
--- NOTE | 2018-07-13 09:57 | PQF ---
PROVIDER RESPONSE TEXT: Acute on chronic Systolic CHF REVIEWER QUERY TEXT: CHF Acuity and Type Congestive Heart Failure is documented in the Medical Record. Please document the type and acuity (in cludes probable or suspected) Such as: Type: -- Systolic -- Diastolic -- Combined -- Other, please specify Acuity: -- Acute -- Chronic -- Acute on chronic -- Other, please specify Also please document the underlying cause of the CHF (includes probable or suspected) The patient's Clinical Indicators include: History Of Present Illness : "42 year old male presents to ED with complaint of cough for 9 days.Patient also admits to general acute hospital congestion, SOB, and leg swelling.Patient has a history of liver and heart complications due to al coholism.Questionable compliance with medication and claims to being abstinent for 3 months.Patient n oted to have Cardiac echo show ejection fraction at 25%". Hx: Anemia, Anxiety, Arthritis, Asthma, CHF, Depression, Diabetes, Gastrointestinal Ulcer, HTN, Hyper cholesterolemia, Peripheral Edema, Pneumonia (3 years ago), Seizures (etoh induced) Admitting Dx: CHF, Liver Failure PBNP- 5660 CXR: Cardiomegaly, CHF Cardiac cath 05/14/18: EF 0f 25% Query created by: Toma Guzmán on 07/11/2018 11:49 AM Electronically signed by: Damaris Edwards MD 07/13/2018 9:54 AM
--- NOTE | 2018-07-13 21:07 | CP.PCM.PN ---
Subjective - Date & Time of Evaluation Date of Evaluation: 07/13/18 Time of Evaluation: 21:05 - Subjective Subjective: Patient continues to have a cough now. Cough associate with a choking sensation. Mostly dry cough noted. He denies any chest pain. Less swelling noted. Feeling dizziness when he is standing up and walking. On examination: Vital signs are stable otherwise. Chest good air entry Regular heart sounds noted Nontender abdomen. Edema in the legs less Labs reviewed Low magnesium level noted Assessment and recommendation: 42-year-old male with a history of liver disease, chronic liver disease associate with alcohol. Low platelet count. Splenomegaly. Congestive heart failure. Systolic decompensated systolic heart failure now. Continue with IV Lasix. Mg supplementation Objective - Vital Signs/Intake and Output Vital Signs (last 24 hours): Temp Pulse Resp BP Pulse Ox 98.5 F 94 H 20 134/98 H 99 07/13/18 16:00 07/13/18 16:00 07/13/18 16:00 07/13/18 17:47 07/13/18 16:00 Intake and Output: 07/13/18 07/14/18 18:59 06:59 Output Total 500 750 Balance -500 -750 - Medications Medications: Current Medications Albuterol/Ipratropium (Duoneb 3 Mg/0.5 Mg (3 Ml) Ud) 3 ml INH RQ4 [facility] Last Admin: 07/13/18 19:35 Dose: 3 ml Ascorbic Acid (Vitamin C 500 Mg Tab) 500 mg PO Q12 [facility] Last Admin: 07/13/18 09:40 Dose: 500 mg Budesonide (Pulmicort Respules) 0.5 mg INH RQ12 [facility] Last Admin: 07/13/18 19:37 Dose: 0.5 mg Fluocinonide (Lidex 0.05% Cream) 1 gm TOP BID [facility] Last Admin: 07/13/18 17:48 Dose: 1 appl Folic Acid (Folic Acid) 1 mg PO DAILY [facility] Last Admin: 07/13/18 09:40 Dose: 1 mg Furosemide (Lasix) 20 mg IVP BID [facility] Last Admin: 07/13/18 17:47 Dose: 20 mg Glipizide (Glucotrol Xl) 2.5 mg PO BRK [facility] Last Admin: 07/13/18 08:37 Dose: 2.5 mg Magnesium Sulfate/Dextrose (Magnesium Sulfate 1 Gm/100 Ml D5w) 1 gm in 100 mls @ 300 mls/hr IVPB Q30M [facility] Stop: 07/13/18 21:49 Insulin Human Regular (Novolin R) 0 unit SC ACHS [facility]; Protocol Last Admin: 07/13/18 17:55 Dose: Not Given Lactic Acid (Lac-Hydrin 12% Lotion (225 G)) 1 gm EXT DAILY [facility] Last Admin: 07/13/18 09:41 Dose: 1 appl Lactulose (Enulose) 20 gm PO BID [facility] Last Admin: 07/13/18 18:29 Dose: Not Given Losartan Potassium (Cozaar) 25 mg PO DAILY [facility] Last Admin: 07/13/18 09:40 Dose: 25 mg Magnesium Oxide (Mag-Ox) 400 mg PO DAILY [facility] Last Admin: 07/13/18 09:39 Dose: 400 mg Mupirocin (Bactroban 2% Nasal) 0.25 gm ORION BID [facility] Last Admin: 07/13/18 17:48 Dose: 0.25 gm Nystatin (Nystatin Oral Susp) 5 ml PO QID [facility] Last Admin: 07/13/18 17:48 Dose: 5 ml Pantoprazole Sodium (Protonix Ec Tab) 40 mg PO DAILY [facility] Last Admin: 07/13/18 09:40 Dose: 40 mg Propranolol HCl (Inderal) 5 mg PO 0800,1400,1999 [facility] Last Admin: 07/13/18 13:35 Dose: 5 mg Saccharomyces Boulardii (Florastor) 250 mg PO HS [facility] Last Admin: 07/12/18 21:27 Dose: 250 mg Spironolactone (Aldactone) 25 mg PO 0800,1999 [facility] Last Admin: 07/13/18 08:36 Dose: 25 mg Thiamine HCl (Vitamin B1 Tab) 100 mg PO DAILY [facility] Last Admin: 07/13/18 09:40 Dose: 100 mg - Labs Labs: 07/13/18 07:35 07/13/18 07:35 PT 16.6 SECONDS (9.7-12.2) H 07/07/18 20:06 INR 1.5 07/07/18 20:06 APTT 37 SECONDS (21-34) H 07/07/18 20:06
[2018-07-13] MEDS: Magnesium Sulfate 1 gm in D5W 1 GM/100 ML BAG IVPB SCH ×2 (21:35→22:21)
[2018-07-13] MEDS: Saccharomyces Boulardi 250 mg Cap PO SCH (21:36)
[2018-07-13] MEDS: Promethazine 6.25 MG/5 ML CUP PO PRN (22:21)
[2018-07-14] MEDS: Albuterol-Ipratrop 3 mg / 0.5 (3 ml) UD INH SCH ×4 (03:06→20:00)
[2018-07-14] MEDS: Budesonide 0.5 mg/2 ml Inhal Susp UD INH SCH (07:32)
[2018-07-14] MEDS: Propranolol 5 mg Tab PO SCH ×3 (08:28→19:39)
[2018-07-14] MEDS: GlipiZIDE 2.5 mg SR Tab PO SCH (08:28)
[2018-07-14] MEDS: (Novolin R) Insulin Human Regular 100 units/ml vial SC SCH ×4 (08:30→21:44)
[2018-07-14] MEDS: Magnesium Oxide 400 mg Tab UD PO SCH (09:17)
[2018-07-14] MEDS: Pantoprazole 40 mg EC Tab PO SCH (09:17)
[2018-07-14] MEDS: Ammonium Lactate 12% Lotion (225 g) EXT SCH (09:19)
[2018-07-14] MEDS: Nystatin 100,000 Units/ml Oral Susp 5 ml UD PO SCH ×4 (09:20→21:43)
--- NOTE | 2018-07-14 10:24 | RAD ---
Date of service: 07/14/2018 HISTORY: CHF. COMPARISON: 07/11/2018. FINDINGS: LUNGS: No active pulmonary disease. PLEURA: No significant pleural effusion identified, no pneumothorax apparent. CARDIOVASCULAR: Cardiomegaly. Mild CHF. Atherosclerotic calcifications identified primarily aortic arch. OSSEOUS STRUCTURES: No significant abnormalities. VISUALIZED UPPER ABDOMEN: Normal. OTHER FINDINGS: None. IMPRESSION: Stable, mild CHF. No new findings.
[2018-07-14] MEDS: Mupirocin 2% Ointment (NASAL) NAS SCH ×2 (11:13→17:39)
[2018-07-14 12:17] LABS: ALB/GLOB RATIO 0.6 (1.0-2.1); ALT/SGPT 32 U/L (21-72); AST/SGOT 52 U/L (17-59); BLOOD UREA NITROGEN 15 mg/dL (9-20); GFR NON-AFRICAN AMERICAN > 60
[2018-07-14 12:27] LABS: BASO # 0.1 K/uL (0.0-0.2); BASO % 0.7 % (0.0-2.0); EOS # 0.1 K/uL (0.0-0.7); EOS % 0.5 % (0.0-4.0); HEMOGLOBIN 10.7 g/dL (12.0-18.0); LYMPH # 2.4 K/uL (1.0-4.3); LYMPH % 17.1 % (20.0-40.0); MEAN CELL VOLUME 81.8 fL (80.0-94.0); MEAN CORPUSCULAR HEMOGLOBIN 25.7 pg (27.0-31.0); MEAN CORPUSCULAR HGB CONC 31.4 g/dL (33.0-37.0); MEAN PLATELET VOLUME 8.2 fL (7.2-11.7); MONO # 1.8 K/uL (0.0-0.8); MONO % 12.9 % (0.0-10.0); NEUT # 9.8 K/uL (1.8-7.0); NEUT % 68.8 % (50.0-75.0); NRBC % 0.1 % (0.0-2.0); RBC 4.16 Mil/uL (4.40-5.90); RED CELL DISTRIBUTION WIDTH 22.6 % (11.5-14.5); WHITE BLOOD COUNT 14.2 K/uL (4.8-10.8)
[2018-07-14 16:56] LABS: SQUAMOUS EPITHIAL < 1 /hpf (0-5); URINE BACTERIA RARE (<OCC); URINE BILIRUBIN NEGATIVE (NEGATIVE); URINE BLOOD 1+ (NEGATIVE); URINE CLARITY Clear (Clear); URINE COLOR Yellow (YELLOW); URINE GLUCOSE (UA) NORMAL (Normal); URINE LEUKOCYTE ESTERASE NEG Leu/uL (Negative); URINE PROTEIN 2+ mg/dL (NEGATIVE); URINE UROBILINOGEN NORMAL mg/dL (0.2-1.0)
[2018-07-14] MEDS: Promethazine 6.25 MG/5 ML CUP PO PRN (19:40)
--- NOTE | 2018-07-14 20:18 | CP.PCM.PN ---
Subjective - Date & Time of Evaluation Date of Evaluation: 07/14/18 Time of Evaluation: 20:16 - Subjective Subjective: Patient is morning was having some cough increasingly noted. He is making much urine. Leg swelling is much improving. But still having shortness of breath and cough. Vital signs are stable. Low-grade fever noted. Thick yellow mucus while coughing noted. Patient has a 1+ edema. Also having skin changes. Labs reviewed Low magnesium level noted Elevated WBC noted Renal functions are normal Assessment and recommendation: 42-year-old male with a history of liver disease secondary to alcoholism. Patient also has a history of chronic liver disease. Diabetes poorly controlled. Psoriasis associate with psoriatic skin disease. Arthritis. Underlying infection cannot be ruled out.?SBP Increasing WBC, will add Rocephin. 1 dose of vancomycin will be added. Bronchodilators. Will discontinue IV Lasix, I will change him to p.o. Lasix and will follow the patient Objective - Vital Signs/Intake and Output Vital Signs (last 24 hours): Temp Pulse Resp BP Pulse Ox 98.8 F 91 H 20 129/84 99 07/14/18 16:00 07/14/18 16:00 07/14/18 16:00 07/14/18 17:37 07/14/18 16:00 Intake and Output: 07/14/18 07/15/18 18:59 06:59 Intake Total 800 Output Total 300 Balance 500 - Medications Medications: Current Medications Albuterol/Ipratropium (Duoneb 3 Mg/0.5 Mg (3 Ml) Ud) 3 ml INH RQ4 [facility] Last Admin: 07/14/18 20:00 Dose: Not Given Ascorbic Acid (Vitamin C 500 Mg Tab) 500 mg PO Q12 [facility] Last Admin: 07/14/18 09:17 Dose: 500 mg Budesonide (Pulmicort Respules) 0.5 mg INH RQ12 [facility] Last Admin: 07/14/18 07:32 Dose: Not Given Fluocinonide (Lidex 0.05% Cream) 1 gm TOP BID [facility] Last Admin: 07/14/18 17:39 Dose: Not Given Folic Acid (Folic Acid) 1 mg PO DAILY [facility] Last Admin: 07/14/18 09:17 Dose: 1 mg Furosemide (Lasix) 20 mg IVP BID [facility] Last Admin: 07/14/18 17:37 Dose: 20 mg Gabapentin (Neurontin) 100 mg PO TID [facility] Last Admin: 07/14/18 17:36 Dose: 100 mg Glipizide (Glucotrol Xl) 2.5 mg PO BRK [facility] Last Admin: 07/14/18 08:28 Dose: 2.5 mg Insulin Human Regular (Novolin R) 0 unit SC ACHS [facility]; Protocol Last Admin: 07/14/18 17:30 Dose: Not Given Lactic Acid (Lac-Hydrin 12% Lotion (225 G)) 1 gm EXT DAILY [facility] Last Admin: 07/14/18 09:19 Dose: Not Given Lactulose (Enulose) 20 gm PO BID [facility] Last Admin: 07/14/18 17:36 Dose: 20 gm Losartan Potassium (Cozaar) 50 mg PO DAILY [facility] Last Admin: 07/14/18 09:17 Dose: 50 mg Magnesium Oxide (Mag-Ox) 400 mg PO DAILY [facility] Last Admin: 07/14/18 09:17 Dose: 400 mg Mupirocin (Bactroban 2% Nasal) 0.25 gm ORION BID [facility] Last Admin: 07/14/18 17:39 Dose: Not Given Nystatin (Nystatin Oral Susp) 5 ml PO QID [facility] Last Admin: 07/14/18 17:36 Dose: 5 ml Pantoprazole Sodium (Protonix Ec Tab) 40 mg PO DAILY [facility] Last Admin: 07/14/18 09:17 Dose: 40 mg Promethazine HCl (Phenergan Syrup) 6.25 mg PO Q6 PRN PRN Reason: Cough Last Admin: 07/14/18 19:40 Dose: 6.25 mg Propranolol HCl (Inderal) 5 mg PO 0800,1400,1999 [facility] Last Admin: 07/14/18 19:39 Dose: 5 mg Saccharomyces Boulardii (Florastor) 250 mg PO HS [facility] Last Admin: 07/13/18 21:36 Dose: 250 mg Spironolactone (Aldactone) 25 mg PO 0800,1999 [facility] Last Admin: 07/14/18 19:39 Dose: 25 mg Thiamine HCl (Vitamin B1 Tab) 100 mg PO DAILY [facility] Last Admin: 07/14/18 09:17 Dose: 100 mg - Labs Labs: 07/14/18 12:20 07/14/18 11:44 PT 16.6 SECONDS (9.7-12.2) H 07/07/18 20:06 INR 1.5 07/07/18 20:06 APTT 37 SECONDS (21-34) H 07/07/18 20:06
[2018-07-14] MEDS: Magnesium Sulfate 1 gm in D5W 1 GM/100 ML BAG IVPB SCH ×2 (20:30→22:43)
[2018-07-14] MEDS: Saccharomyces Boulardi 250 mg Cap PO SCH (21:43)
[2018-07-14] MEDS: Vancomycin 1 gm/NS 200 ml 1 GM/200 ML BAG IVPB SCH (21:45)
[2018-07-14] MEDS ORDERED: Magnesium Sulfate 1 gm in D5W 1 GM/100 ML BAG IVPB SCH (22:45)
[2018-07-15] MEDS: (Novolin R) Insulin Human Regular 100 units/ml vial SC SCH ×4 (08:01→21:42)
[2018-07-15] MEDS: Budesonide 0.5 mg/2 ml Inhal Susp UD INH SCH ×2 (09:15→20:02)
[2018-07-15] MEDS: Albuterol-Ipratrop 3 mg / 0.5 (3 ml) UD INH SCH ×5 (09:15→20:02)
[2018-07-15] MEDS: Magnesium Oxide 400 mg Tab UD PO SCH (09:25)
[2018-07-15] MEDS: Pantoprazole 40 mg EC Tab PO SCH (09:26)
[2018-07-15] MEDS: Ammonium Lactate 12% Lotion (225 g) EXT SCH (09:27)
[2018-07-15] MEDS: GlipiZIDE 2.5 mg SR Tab PO SCH (09:29)
[2018-07-15] MEDS ORDERED: cefTRIAXone IV 1 gm in Dextros 50 ML IVPB SCH (10:00)
--- NOTE | 2018-07-15 10:51 | CARD ---
APPROVED REPORT Date of service: 07/07/2018 EKG Measurement Heart [id number] <Conclusion> Sinus tachycardia Nonspecific T wave abnormality Abnormal ECG
[2018-07-15 11:02] LABS: VENOUS BLOOD GAS BASE EXCESS -2.1 mmol/L (0.0-2.0); VENOUS BLOOD GAS PCO2 29 mmHg (40-60); VENOUS BLOOD GAS PO2 73 mm/Hg (30-55); VENOUS BLOOD PH 7.46 (7.32-7.43)
[2018-07-15 11:17] LABS: BASO # 0.1 K/uL (0.0-0.2); BASO % 0.9 % (0.0-2.0); EOS # 0.1 K/uL (0.0-0.7); EOS % 0.4 % (0.0-4.0); HEMOGLOBIN 10.5 g/dL (12.0-18.0); LYMPH # 2.2 K/uL (1.0-4.3); LYMPH % 14.2 % (20.0-40.0); MEAN CELL VOLUME 82.1 fL (80.0-94.0); MEAN CORPUSCULAR HEMOGLOBIN 25.3 pg (27.0-31.0); MEAN CORPUSCULAR HGB CONC 30.8 g/dL (33.0-37.0); MEAN PLATELET VOLUME 7.9 fL (7.2-11.7); MONO % 12.5 % (0.0-10.0); NEUT # 11.3 K/uL (1.8-7.0); RBC 4.16 Mil/uL (4.40-5.90); RED CELL DISTRIBUTION WIDTH 22.5 % (11.5-14.5); WHITE BLOOD COUNT 15.7 K/uL (4.8-10.8)
[2018-07-15 11:31] LABS: ALB/GLOB RATIO 0.6 (1.0-2.1); ALT/SGPT 32 U/L (21-72); AST/SGOT 50 U/L (17-59); BLOOD UREA NITROGEN 14 mg/dL (9-20); CALCIUM 7.8 mg/dl (8.6-10.4); GFR NON-AFRICAN AMERICAN > 60
[2018-07-15] MEDS: Nystatin 100,000 Units/ml Oral Susp 5 ml UD PO SCH ×4 (11:44→21:41)
[2018-07-15] MEDS: Propranolol 5 mg Tab PO SCH ×3 (12:00→20:23)
[2018-07-15] MEDS: Mupirocin 2% Ointment (NASAL) NAS SCH ×2 (12:01→17:21)
[2018-07-15] MEDS: Promethazine 6.25 MG/5 ML CUP PO PRN (14:17)
[2018-07-15] MEDS: Vancomycin 1 gm/NS 200 ml 1 GM/200 ML BAG IVPB SCH (20:23)
--- NOTE | 2018-07-15 21:12 | CP.PCM.PN ---
Subjective - Date & Time of Evaluation Date of Evaluation: 07/15/18 Time of Evaluation: 21:10 - Subjective Subjective: Patient this morning had an episode of fever. He was also having increasing cough. Chest tightness also noted. Cough is mostly dry, but occasional thick yellow mucus noted. He is able to bring up the mucus. Shortness of breath also noted. Patient is mostly lying down in the bed. On examination: Vital signs stable. Chest tightness, wheezing noted. Heart sounds are regular. Afebrile now. Labs reviewed Mild elevation of the WBC noted. Chest x-ray which was done last night showing evidence of mild right hilar prominence noted. Perihilar infiltrate possible. Blood culture noted and urine culture noted. Nonspecific. 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 Hepatic encephalopathy. Alcoholic liver disease and complication. Pedal edema. Congestive heart failure. Patient also has a history of nonischemic cardiomyopathy. Now having possible decompensated heart failure. Associate with the possible pneumonia, gram-negative bacteria identified. Patient was given Zosyn and Vanco yesterday. I will changed to Primaxin today. We will closely monitor. Infectious disease evaluation may be needed will follow the patient Awaiting for ID of the bacteria Objective - Vital Signs/Intake and Output Vital Signs (last 24 hours): Temp Pulse Resp BP Pulse Ox 98.4 F 87 20 130/85 97 07/15/18 16:00 07/15/18 16:00 07/15/18 16:00 07/15/18 16:00 07/15/18 16:00 - Medications Medications: Current Medications Albuterol/Ipratropium (Duoneb 3 Mg/0.5 Mg (3 Ml) Ud) 3 ml INH RQ4 [facility] Last Admin: 07/15/18 20:02 Dose: 3 ml Ascorbic Acid (Vitamin C 500 Mg Tab) 500 mg PO Q12 [facility] Last Admin: 07/15/18 09:25 Dose: 500 mg Budesonide (Pulmicort Respules) 0.5 mg INH RQ12 [facility] Last Admin: 07/15/18 20:02 Dose: 0.5 mg Fluocinonide (Lidex 0.05% Cream) 1 gm TOP BID [facility] Last Admin: 07/15/18 17:21 Dose: Not Given Folic Acid (Folic Acid) 1 mg PO DAILY [facility] Last Admin: 07/15/18 09:26 Dose: 1 mg Furosemide (Lasix) 40 mg PO DAILY [facility] Last Admin: 07/15/18 09:26 Dose: 40 mg Gabapentin (Neurontin) 100 mg PO TID [facility] Last Admin: 07/15/18 17:20 Dose: 100 mg Glipizide (Glucotrol Xl) 2.5 mg PO BRK [facility] Last Admin: 07/15/18 09:29 Dose: Not Given Ceftriaxone Sodium (Rocephin Iv 1 Gm Duplex) 50 mls @ 100 mls/hr IVPB DAILY [facility]; Protocol Last Admin: 07/15/18 09:27 Dose: 100 mls/hr Vancomycin/Sodium Chloride (Vancomycin 1 Gm/Ns 200 Ml) 1 gm in 200 mls @ 133.333 mls/hr IVPB Q24H [facility]; Protocol Last Admin: 07/15/18 20:23 Dose: 133.333 mls/hr Insulin Human Regular (Novolin R) 0 unit SC ACHS [facility]; Protocol Last Admin: 07/15/18 17:20 Dose: Not Given Lactic Acid (Lac-Hydrin 12% Lotion (225 G)) 1 gm EXT DAILY [facility] Last Admin: 07/15/18 09:27 Dose: 1 appl Lactulose (Enulose) 20 gm PO BID [facility] Last Admin: 07/15/18 17:21 Dose: Not Given Losartan Potassium (Cozaar) 50 mg PO DAILY [facility] Last Admin: 07/15/18 12:00 Dose: 50 mg Magnesium Oxide (Mag-Ox) 400 mg PO DAILY [facility] Last Admin: 07/15/18 09:25 Dose: 400 mg Mupirocin (Bactroban 2% Nasal) 0.25 gm ORION BID [facility] Last Admin: 07/15/18 17:21 Dose: Not Given Nystatin (Nystatin Oral Susp) 5 ml PO QID [facility] Last Admin: 07/15/18 17:20 Dose: 5 ml Pantoprazole Sodium (Protonix Ec Tab) 40 mg PO DAILY [facility] Last Admin: 07/15/18 09:26 Dose: 40 mg Promethazine HCl (Phenergan Syrup) 6.25 mg PO Q6 PRN PRN Reason: Cough Last Admin: 07/15/18 14:17 Dose: 6.25 mg Propranolol HCl (Inderal) 5 mg PO 0800,1400,2000 [facility] Last Admin: 07/15/18 20:23 Dose: 5 mg Saccharomyces Boulardii (Florastor) 250 mg PO HS [facility] Last Admin: 07/14/18 21:43 Dose: 250 mg Spironolactone (Aldactone) 25 mg PO 799,1999 [facility] Last Admin: 07/15/18 20:23 Dose: 25 mg Thiamine HCl (Vitamin B1 Tab) 100 mg PO DAILY [facility] Last Admin: 07/15/18 09:25 Dose: 100 mg - Labs Labs: 07/15/18 11:03 07/15/18 11:03 PT 16.6 SECONDS (9.7-12.2) H 07/07/18 20:06 INR 1.5 07/07/18 20:06 APTT 37 SECONDS (21-34) H 07/07/18 20:06
[2018-07-15] MEDS: Saccharomyces Boulardi 250 mg Cap PO SCH (21:42)
[2018-07-15 22:58] LABS: URINE BACTERIA OCC (<OCC); URINE BILIRUBIN NEGATIVE (NEGATIVE); URINE BLOOD 1+ (NEGATIVE); URINE CLARITY Clear (Clear); URINE COLOR Yellow (YELLOW); URINE GLUCOSE (UA) NORMAL (Normal); URINE LEUKOCYTE ESTERASE NEG Leu/uL (Negative); URINE PROTEIN 1+ mg/dL (NEGATIVE); URINE UROBILINOGEN NORMAL mg/dL (0.2-1.0)
[2018-07-16] MEDS: Albuterol-Ipratrop 3 mg / 0.5 (3 ml) UD INH SCH ×6 (00:08→19:16)
[2018-07-16] MEDS: Promethazine 6.25 MG/5 ML CUP PO PRN (02:15)
[2018-07-16 06:24] LABS: BASO # 0.1 K/uL (0.0-0.2); BASO % 0.6 % (0.0-2.0); EOS # 0.1 K/uL (0.0-0.7); EOS % 0.4 % (0.0-4.0); HEMOGLOBIN 13.1 g/dL (12.0-18.0); LYMPH % 4.8 % (20.0-40.0); MEAN CELL VOLUME 83.2 fL (80.0-94.0); MEAN CORPUSCULAR HGB CONC 31.2 g/dL (33.0-37.0); MONO # 0.9 K/uL (0.0-0.8); NEUT # 19.5 K/uL (1.8-7.0); NEUT % 90.2 % (50.0-75.0); PLATELET COUNT 209 K/uL (130-400); RBC 5.05 Mil/uL (4.40-5.90); RED CELL DISTRIBUTION WIDTH 22.8 % (11.5-14.5); WHITE BLOOD COUNT 21.6 K/uL (4.8-10.8)
[2018-07-16 06:41] LABS: ALB/GLOB RATIO 0.7 (1.0-2.1); ALBUMIN 2.6 g/dL (3.5-5.0); ALT/SGPT 31 U/L (21-72); AST/SGOT 59 U/L (17-59); BLOOD UREA NITROGEN 16 mg/dL (9-20); CALCIUM 8.2 mg/dl (8.6-10.4); GFR NON-AFRICAN AMERICAN > 60
--- NOTE | 2018-07-16 07:24 | CP.PCM.PN ---
Subjective - Date & Time of Evaluation Date of Evaluation: 07/16/18 Time of Evaluation: 07:22 - Subjective Subjective: Patient is morning feeling slightly weak. He has a fever of 102. Still having cough. Thick mucus occasionally noted. He is making urine. Leg swelling improving. On examination: Vital signs noted. Temperature 102. Saturation is 96%. Chest bilateral minimal expiratory wheezing noted. Abdomen soft nontender. Leg edema 1+ noted Sputum culture is gram-negative, ID is pending. Currently patient is on vancomycin 1 g once a day He is also receiving imipenem 3 times a day. Will hold off the diuretics now. Assessment and recommendation: 42-year-old male with a history of alcoholic disease alcoholic liver disease admitted with a CHF decompensation. Now having fever and sepsis and associated with cough. Possible pneumonia cannot be ruled out. Continue with antibiotic and will get the CT of the abdomen and pelvis and will follow the patient Objective - Vital Signs/Intake and Output Vital Signs (last 24 hours): Temp Pulse Resp BP Pulse Ox 99.7 F H 99 H 20 135/83 95 07/16/18 04:00 07/16/18 00:00 07/16/18 00:00 07/16/18 04:00 07/16/18 00:00 Intake and Output: 07/16/18 07/16/18 06:59 18:59 Intake Total 850 Balance 850 - Medications Medications: Current Medications Acetaminophen (Tylenol 325mg Tab) 650 mg PO Q6 PRN PRN Reason: Fever >100.4 F Albuterol/Ipratropium (Duoneb 3 Mg/0.5 Mg (3 Ml) Ud) 3 ml INH RQ4 [facility] Last Admin: 07/16/18 03:13 Dose: Not Given Fluocinonide (Lidex 0.05% Cream) 1 gm TOP BID [facility] Last Admin: 07/15/18 17:21 Dose: Not Given Folic Acid (Folic Acid) 1 mg PO DAILY [facility] Last Admin: 07/15/18 09:26 Dose: 1 mg Furosemide (Lasix) 40 mg PO DAILY [facility] Last Admin: 07/15/18 09:26 Dose: 40 mg Vancomycin/Sodium Chloride (Vancomycin 1 Gm/Ns 200 Ml) 1 gm in 200 mls @ 133.333 mls/hr IVPB Q24H [facility]; Protocol Last Admin: 07/15/18 20:23 Dose: 133.333 mls/hr Imipenem/Cilastatin Sodium 500 (mg/ Sodium Chloride) 100 mls @ 100 mls/hr IVPB Q8 [facility]; Protocol Last Admin: 07/16/18 05:54 Dose: 100 mls/hr Insulin Human Regular (Novolin R) 0 unit SC ACHS [facility]; Protocol Last Admin: 07/15/18 21:42 Dose: Not Given Lactic Acid (Lac-Hydrin 12% Lotion (225 G)) 1 gm EXT DAILY [facility] Last Admin: 07/15/18 09:27 Dose: 1 appl Lactulose (Enulose) 20 gm PO TID [facility] Losartan Potassium (Cozaar) 50 mg PO DAILY [facility] Last Admin: 07/15/18 12:00 Dose: 50 mg Mupirocin (Bactroban 2% Nasal) 0.25 gm ORION BID [facility] Last Admin: 07/15/18 17:21 Dose: Not Given Nystatin (Nystatin Oral Susp) 5 ml PO QID [facility] Last Admin: 07/15/18 21:41 Dose: 5 ml Pantoprazole Sodium (Protonix Ec Tab) 40 mg PO DAILY [facility] Last Admin: 07/15/18 09:26 Dose: 40 mg Propranolol HCl (Inderal) 5 mg PO 0800,1400,2000 [facility] Last Admin: 07/15/18 20:23 Dose: 5 mg Saccharomyces Boulardii (Florastor) 250 mg PO HS [facility] Last Admin: 07/15/18 21:42 Dose: 250 mg Thiamine HCl (Vitamin B1 Tab) 100 mg PO DAILY [facility] Last Admin: 07/15/18 09:25 Dose: 100 mg - Labs Labs: 07/16/18 06:17 07/16/18 06:17 PT 16.6 SECONDS (9.7-12.2) H 07/07/18 20:06 INR 1.5 07/07/18 20:06 APTT 37 SECONDS (21-34) H 07/07/18 20:06
[2018-07-16] MEDS: (Novolin R) Insulin Human Regular 100 units/ml vial SC SCH ×4 (08:37→22:50)
[2018-07-16] MEDS: Pantoprazole 40 mg EC Tab PO SCH (09:31)
[2018-07-16] MEDS: Nystatin 100,000 Units/ml Oral Susp 5 ml UD PO SCH ×4 (09:31→22:27)
[2018-07-16] MEDS: Propranolol 5 mg Tab PO SCH ×3 (09:31→20:11)
[2018-07-16] MEDS: Mupirocin 2% Ointment (NASAL) NAS SCH ×3 (09:31→18:06)
[2018-07-16] MEDS: Ammonium Lactate 12% Lotion (225 g) EXT SCH (09:32)
--- NOTE | 2018-07-16 09:34 | CT ---
Date of service: 07/16/2018 PROCEDURE: CT Abdomen and Pelvis without intravenous contrast HISTORY: Ascites COMPARISON: Comparison is made to the previous study dated 05/05/2018 TECHNIQUE: Axial and reformatted coronal and sagittal CT images of the abdomen and pelvis were obtained without IV or oral contrast administration. Contrast dose: . 0 Radiation dose: Total exam DLP = 2222.4 mGy-cm. This CT exam was performed using one or more of the following dose reduction techniques: Automated exposure control, adjustment of the mA and/or kV according to patient size, and/or use of iterative reconstruction technique. FINDINGS: LOWER THORAX: There is a trace right pleural effusion. Moderate cardiomegaly is noted. No evidence of pericardial effusion. Ifeh-sa-vlalrdja pulmonary vascular congestion and small nodular opacities noted at the lung bases. LIVER: Cirrhotic manifestation of the liver are again noted. The assessment of the liver and upper abdomen solid organs is limited without IV contrast administration. No definite evidence of discrete mass lesion in the liver. GALLBLADDER AND BILE DUCTS: Status post cholecystectomy. PANCREAS: Unremarkable. No gross lesion or ductal dilatation. SPLEEN: The spleen is mildly enlarged measures 12.5 centimeter. ADRENALS: No evidence of suspicious lesion in the adrenal glands KIDNEYS AND URETERS: No evidence of hydronephrosis or hydroureter. Small foci of high attenuation in the kidneys may represent medullary calcification. VASCULATURE: Unremarkable. No aortic aneurysm. Foci of atherosclerotic calcification noted in the abdominal aorta. BOWEL: Geuysw-ur-vhsfmmksyl dilated small bowel loops noted in the abdomen and pelvis. However no definite CT evidence of high-grade bowel obstruction. The possibility of bowel ileus should be considered. Please correlate clinically. Mild constipation in the large bowel. APPENDIX: No evidence of appendicitis. PERITONEUM: No evidence of significant ascites in the abdomen and pelvis. Soft tissue and mesenteric edema noted. No evidence of free air LYMPH NODES: Unremarkable. No enlarged lymph nodes. BLADDER: Unremarkable. REPRODUCTIVE: Unremarkable. BONES: No acute fracture. OTHER FINDINGS: None. IMPRESSION: No evidence of significant free fluid in the abdomen and pelvis. Moderate diffuse soft tissue edema. Cardiomegaly and small right pleural effusion. Cirrhosis and mild splenomegaly. Mildly to moderately dilated small bowel loops may represent bowel ileus versus less likely low grade small bowel obstruction. Clinical correlation is suggested.
[2018-07-16 09:47] LABS: ANISOCYTOSIS MODERATE; BANDS 5 % (0-2); LYMPHOCYTE 4 % (20-40); MONOCYTE 5 % (0-10); NEUTROPHIL 86 % (50-75); PLATELET ESTIMATE NORMAL (NORMAL); POLYCHROMIC SLIGHT; TOTAL CELLS COUNTED 100
[2018-07-16 09:48] LABS: SCHISTOCYTES SLIGHT
[2018-07-16 09:49] LABS: LARGE PLATELETS PRESENT
[2018-07-16 09:50] LABS: BURR CELLS SLIGHT; OVALOCYTES SLIGHT; POIKILOCYTOSIS SLIGHT
--- NOTE | 2018-07-16 10:27 | RAD ---
Date of service: 07/16/2018 HISTORY: pna COMPARISON: Comparison is made to the previous study dated 07/14/2018 FINDINGS: LUNGS: Low lung volume is again noted. Again noted are bilateral perihilar opacities likely due to pulmonary vascular PLEURA: Congestion. CARDIOVASCULAR: Small atherosclerotic calcification at the aortic knob is again noted. The cardiac silhouette is enlarged . possible moderate pulmonary vascular congestion OSSEOUS STRUCTURES: No significant abnormalities. VISUALIZED UPPER ABDOMEN: Normal. OTHER FINDINGS: None. IMPRESSION: Possible moderate pulmonary vascular congestion and cardiomegaly. No significant interval changes
--- NOTE | 2018-07-16 18:44 | CP.PCM.CON ---
History of Present Illness - History of Present Illness History of Present Illness: DICTATED ; CHART REVIEWED RADIOLOGY REVIEWED. DICT NO: #[id number]. Past Patient History - Infectious Disease Hx of Infectious Diseases: None - Past Medical History & Family History Past Medical History?: Yes - Past Social History Smoking Status: Never Smoked - CARDIAC Hx Atrial Fibrillation: No Hx Cardia Arrhythmia: No Hx Congestive Heart Failure: Yes Hx Hypercholesterolemia: Yes Hx Hypertension: Yes Hx Mitral Valve Prolapse: No Hx Pacemaker: No Hx Peripheral Edema: Yes - PULMONARY Hx Asthma: Yes Hx Bronchitis: No Hx Chronic Obstructive Pulmonary Disease (COPD): No Hx Emphysema: No Hx Pneumonia: Yes (3 years ago) Hx Pulmonary Embolism: No Hx Sleep Apnea: No - NEUROLOGICAL Hx Alzheimer's Disease: No Hx Dementia: No Hx Migraine: No Hx Multiple Sclerosis: No Hx Parkinson's Disease: No Hx Seizures: Yes (etoh induced) Hx Transient Ischemic Attacks (TIA): No - HEENT Hx HEENT Problems: Yes Hx Blind: No Hx Cataracts: No Hx Deafness: No Hx Difficulty Chewing: No Hx Epistaxis: No Hx Glaucoma: No Hx Macular Degeneration: No Other/Comment: eye glasses for reading - RENAL Hx Chronic Kidney Disease: No Hx Kidney Stones: No - ENDOCRINE/METABOLIC Hx Hyperthyroidism: No Hx Hypothyroidism: No - HEMATOLOGICAL/ONCOLOGICAL Hx Anemia: Yes Hx Human Immunodeficiency Virus (HIV): No Hx Sickle Cell Disease: No - INTEGUMENTARY Hx Dermatological Problems: Yes Hx Basil Cell: No Hx Jewell: No Hx Cellulitis: No Hx Eczema: No Hx Melanoma: No Hx Psoriasis: Yes Hx Squamous Cell: No Other/Comment: Psoriatic Arthritis, Right LE wounds, Perineal excoriation - MUSCULOSKELETAL/RHEUMATOLOGICAL Hx Arthritis: Yes Hx Fractures: No Hx Osteoporosis: No Hx Rheumatoid Arthritis: No - GASTROINTESTINAL Hx Crohn's Disease: No Hx Diverticulitis: No Hx Gall Bladder Disease: No Hx Gastritis: No Hx Pancreatitis: No - GENITOURINARY/GYNECOLOGICAL Hx Sexually Transmitted Disorders: No - PSYCHIATRIC Hx Anxiety: Yes Hx Bipolar Disorder: No Hx Depression: Yes Hx Post Traumatic Stress Disorder: No Hx Schizophrenia: No Hx Substance Use: No - SURGICAL HISTORY Hx Appendectomy: No Hx Carotid Endarterectomy: No Hx Cholecystectomy: No Hx Coronary Artery Bypass Graft: No Hx Coronary Stent: No Hx Tonsillectomy: No - ANESTHESIA Hx Anesthesia: Yes Hx Anesthesia Reactions: No Hx Malignant Hyperthermia: No Meds Allergies/Adverse Reactions: Allergies Allergy/AdvReac Type Severity Reaction Status Date / Time No Known Allergies Allergy Verified 04/10/18 14:55 - Medications Medications: Current Medications Acetaminophen (Tylenol 325mg Tab) 650 mg PO Q6 PRN PRN Reason: Fever >100.4 F Last Admin: 07/16/18 08:11 Dose: 650 mg Albuterol/Ipratropium (Duoneb 3 Mg/0.5 Mg (3 Ml) Ud) 3 ml INH RQ4 [facility] Last Admin: 07/16/18 11:05 Dose: 3 ml Fluocinonide (Lidex 0.05% Cream) 1 gm TOP BID [facility] Last Admin: 07/16/18 18:24 Dose: 1 appl Folic Acid (Folic Acid) 1 mg PO DAILY [facility] Last Admin: 07/16/18 09:31 Dose: 1 mg Furosemide (Lasix) 40 mg PO DAILY [facility] Last Admin: 07/15/18 09:26 Dose: 40 mg Vancomycin/Sodium Chloride (Vancomycin 1 Gm/Ns 200 Ml) 1 gm in 200 mls @ 133.333 mls/hr IVPB Q24H [facility]; Protocol Last Admin: 07/15/18 20:23 Dose: 133.333 mls/hr Imipenem/Cilastatin Sodium 500 (mg/ Sodium Chloride) 100 mls @ 100 mls/hr IVPB Q8 [facility]; Protocol Last Admin: 07/16/18 14:14 Dose: 100 mls/hr Insulin Human Regular (Novolin R) 0 unit SC ACHS [facility]; Protocol Last Admin: 07/16/18 17:08 Dose: Not Given Lactic Acid (Lac-Hydrin 12% Lotion (225 G)) 1 gm EXT DAILY [facility] Last Admin: 07/16/18 09:32 Dose: 1 appl Lactulose (Enulose) 20 gm PO TID [facility] Last Admin: 07/16/18 18:06 Dose: Not Given Losartan Potassium (Cozaar) 50 mg PO DAILY [facility] Last Admin: 07/16/18 09:31 Dose: 50 mg Mupirocin (Bactroban 2% Nasal) 0.25 gm ORION BID [facility] Last Admin: 07/16/18 18:06 Dose: Not Given Nystatin (Nystatin Oral Susp) 5 ml PO QID [facility] Last Admin: 07/16/18 18:21 Dose: 5 ml Pantoprazole Sodium (Protonix Ec Tab) 40 mg PO DAILY [facility] Last Admin: 07/16/18 09:31 Dose: 40 mg Propranolol HCl (Inderal) 5 mg PO 0800,1400,2000 [facility] Last Admin: 07/16/18 14:14 Dose: 5 mg Saccharomyces Boulardii (Florastor) 250 mg PO HS [facility] Last Admin: 07/15/18 21:42 Dose: 250 mg Thiamine HCl (Vitamin B1 Tab) 100 mg PO DAILY [facility] Last Admin: 07/16/18 09:31 Dose: 100 mg Results - Vital Signs Recent Vital Signs: Last Vital Signs Temp 97.6 F 07/16/18 15:36 Pulse 83 07/16/18 15:36 Resp 20 07/16/18 15:36 BP 110/76 07/16/18 15:36 Pulse Ox 98 07/16/18 15:36 - Labs Result Diagrams: 07/16/18 06:17 07/16/18 06:17 Labs: Laboratory Results - last 24 hr 07/15/18 07/15/18 07/15/18 11:25 16:09 21:02 WBC RBC Hgb Hct MCV MCH MCHC RDW Plt Count MPV Neut % (Auto) Lymph % (Auto) [place] % (Auto) Eos % (Auto) Baso % (Auto) Neut # (Auto) Lymph # (Auto) [place] # (Auto) Eos # (Auto) Baso # (Auto) Neutrophils % (Manual) Band Neutrophils % Lymphocytes % (Manual) Monocytes % (Manual) Platelet Estimate Large Platelets Polychromasia Poikilocytosis (manual Anisocytosis (manual) Ovalocytes Adel Cells Schistocytes Sodium Potassium Chloride Carbon Dioxide Anion Gap BUN Creatinine Est GFR ( Amer) Est GFR (Non-Af Amer) POC Glucose (mg/dL) 89 94 142 H Random Glucose Calcium Phosphorus Magnesium Total Bilirubin AST ALT Alkaline Phosphatase Ammonia Total Protein Albumin Globulin Albumin/Globulin Ratio Urine Color Urine Clarity Urine pH Ur Specific [place] Urine Protein Urine Glucose (UA) Urine Ketones Urine Blood Urine Nitrate Urine Bilirubin Urine Urobilinogen Ur Leukocyte Esterase Urine WBC (Auto) Urine RBC (Auto) Urine Bacteria 07/15/18 07/16/18 07/16/18 22:49 06:00 06:17 WBC 21.6 H RBC 5.05 Hgb 13.1 D Hct 42.0 MCV 83.2 MCH 26.0 L MCHC 31.2 L RDW 22.8 H Plt Count 209 MPV 8.0 Neut % (Auto) 90.2 H Lymph % (Auto) 4.8 L [place] % (Auto) 4.0 Eos % (Auto) 0.4 Baso % (Auto) 0.6 Neut # (Auto) 19.5 H Lymph # (Auto) 1.0 [place] # (Auto) 0.9 H Eos # (Auto) 0.1 Baso # (Auto) 0.1 Neutrophils % (Manual) 86 H Band Neutrophils % 5 H Lymphocytes % (Manual) 4 L Monocytes % (Manual) 5 Platelet Estimate Normal Large Platelets Present Polychromasia Slight Poikilocytosis (manual Slight Anisocytosis (manual) Moderate Ovalocytes Slight Adel Cells Slight Schistocytes Slight Sodium Potassium Chloride Carbon Dioxide Anion Gap BUN Creatinine Est GFR ( Amer) Est GFR (Non-Af Amer) POC Glucose (mg/dL) 124 H Random Glucose Calcium Phosphorus Magnesium Total Bilirubin AST ALT Alkaline Phosphatase Ammonia Total Protein Albumin Globulin Albumin/Globulin Ratio Urine Color Yellow Urine Clarity Clear Urine pH 7.0 Ur Specific [place] 1.013 Urine Protein 1+ H Urine Glucose (UA) Normal Urine Ketones Negative Urine Blood 1+ H Urine Nitrate Negative Urine Bilirubin Negative Urine Urobilinogen Normal Ur Leukocyte Esterase Neg Urine WBC (Auto) 2 Urine RBC (Auto) 24 H Urine Bacteria Occ H 07/16/18 07/16/18 06:17 06:17 WBC RBC Hgb Hct MCV MCH MCHC RDW Plt Count MPV Neut % (Auto) Lymph % (Auto) [place] % (Auto) Eos % (Auto) Baso % (Auto) Neut # (Auto) Lymph # (Auto) [place] # (Auto) Eos # (Auto) Baso # (Auto) Neutrophils % (Manual) Band Neutrophils % Lymphocytes % (Manual) Monocytes % (Manual) Platelet Estimate Large Platelets Polychromasia Poikilocytosis (manual Anisocytosis (manual) Ovalocytes Pepe Cells Schistocytes Sodium 130 L Potassium 5.3 H Chloride 101 Carbon Dioxide 21 L Anion Gap 14 BUN 16 Creatinine 1.0 Est GFR ( Amer) > 60 Est GFR (Non-Af Amer) > 60 POC Glucose (mg/dL) Random Glucose 85 Calcium 8.2 L Phosphorus 4.3 Magnesium 1.5 L Total Bilirubin 1.9 H AST 59 ALT 31 Alkaline Phosphatase 97 Ammonia 71 H D Total Protein 6.2 L Albumin 2.6 L D Globulin 3.7 Albumin/Globulin Ratio 0.7 L Urine Color Urine Clarity Urine pH Ur Specific [place] Urine Protein Urine Glucose (UA) Urine Ketones Urine Blood Urine Nitrate Urine Bilirubin Urine Urobilinogen Ur Leukocyte Esterase Urine WBC (Auto) Urine RBC (Auto) Urine Bacteria
[2018-07-16] MEDS: Vancomycin 1 gm/NS 200 ml 1 GM/200 ML BAG IVPB SCH (20:11)
[2018-07-16] MEDS: metroNIDAZOLE IV 500 mg/100 ml 500 MG/100 ML BAG IVPB SCH (20:12)
[2018-07-16] MEDS: Saccharomyces Boulardi 250 mg Cap PO SCH (22:27)
[2018-07-17] MEDS: Albuterol-Ipratrop 3 mg / 0.5 (3 ml) UD INH SCH ×6 (01:46→19:14)
[2018-07-17] MEDS: metroNIDAZOLE IV 500 mg/100 ml 500 MG/100 ML BAG IVPB SCH ×3 (03:39→19:45)
--- NOTE | 2018-07-17 06:20 | CON ---
DATE: 07/17/2018 INFECTIOUS DISEASE CONSULTATION REQUESTED BY: Damaris Edwards MD DICTATION DONE BY: Linda Smith MD REASON FOR CONSULTATION: Sepsis, leukocytosis, and pneumonia. 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 The patient also was complaining of increase in shortness of breath and cough. The patient denied any chest pain. The patient was treated with diuretics as well as other medications, including diuretics, and the patient still continues to have some dyspnea on exertion. Presently, the patient was placed on IV Zosyn and vancomycin which was given on 07/14/2018 because of positive urine cultures as well as sputum cultures showing gram-negative rods. The patient has had CAT scan chest on 07/11/2018, which also showed possible ground-glass opacities in the lingula and left lower lobe with mild atelectasis and infiltrates. The patient also was noted to have nodular liver consistent with cirrhosis and cardiomegaly. The patient has been hospitalized multiple times with similar complaints including chronic leg ulcers, sepsis, and septic shock. Presently, has had significant skin changes secondary to his psoriasis. The patient also has been complaining of difficulty ambulating because of increased anasarca and has uncontrolled diabetes. The patient has been noncompliant with his medications as reported in the chart. Infectious disease consultation today requested because the patient has been spiking fever to 102. Also, the patient's WBC count went up to 21.6. Ammonia levels are still elevated with ammonia level last reported on 07/16/2018 of 71. The patient underwent a CAT scan of the abdomen and pelvis also recently, showing soft tissue edema, small right effusion with cirrhosis and splenomegaly, also noted was bowel ileus and possible early small bowel obstruction. The patient has some ascites, but presently denies any nausea, vomiting, or diarrhea. Chest x-ray latest done on 07/16/2018 showed bilateral hilar opacities and some peripheral vascular congestion. PAST MEDICAL HISTORY: As above. History of diabetes mellitus, hypertension, chronic liver disease, alcoholic liver disease, variceal hemorrhages. PAST SURGICAL HISTORY: Consists of endoscopy and colonoscopy. Last endoscopy and colonoscopy performed in 2016, revealed grade 1 esophageal varices, also low-grade esophagitis and internal hemorrhoids and edema of the ascending colon. FAMILY HISTORY: Father has history of heart transplant. Mother has hypertension and diabetes. ALLERGIES: NONE KNOWN. SOCIAL HISTORY: The patient has history of alcohol consumption about one pint of vodka per day. Presently, he is and from his . Denies illicit drug use or former tobacco use. REVIEW OF SYSTEMS: GENERAL: Presently, the patient denies any headache. Complaints of cough with greenish phlegm. Denies any chest pains. Denies any abdominal pain. Denies any GI diarrhea or obstipation at present. MUSCULOSKELETAL: Has bilateral leg swelling and leg edema. Scrotal swelling not noted. CENTRAL NERVOUS SYSTEM: Awake, alert, not in any acute distress. MEDICATIONS: As per chart noted. The patient has been started on IV Primaxin from 07/15/2018 500 mg every 8 hours. Also, the patient is getting vancomycin 1 g every 24 hours. Rest of the medications as per chart. PHYSICAL EXAMINATION: GENERAL: The patient is awake. VITAL SIGNS: T-max of 102, blood pressure 110/76, respirations 20, pulse of 83 per minute, pulse ox is 98% on room air. HEENT: Pupils equal and reactive to light and accommodation. Extraocular movements are full. Fundus not well visualized. Sclerae icteric. Conjunctivae normal. JVP not elevated. NECK: Appears to be supple. LUNGS: Bibasilar rhonchi and rales. CARDIOVASCULAR SYSTEM: S1, S2. No murmur or gallop. ABDOMEN: Slightly distended. Bowel sounds hypoactive. No masses palpable. Minimal ascites. EXTREMITIES: Bilateral generalized anasarca with 2+ lower extremities edema. The patient has bilateral lower extremity ulcers, some with serosanguineous drainage. Generalized skin psoriasis also noted. CENTRAL NERVOUS SYSTEM: Presently awake and moves all extremities. LABORATORY DATA: WBCs 21.6, H and H of 13.1 and 42, platelets 209. Creatinine 1, BUN of 16, sodium 130. Liver function tests: Total bilirubin of 1.91, AST 59, ALT 31, ammonia of 91. Chest x-ray as reported above, has bilateral hilar opacities with peripheral vascular congestion. IMPRESSION: 1. Sepsis, new fever, leukocytosis, shows mostly likely pneumonia, probable aspiration with gram-negative rods in the sputum. 2. Urosepsis with gram-positive cocci in clean-catch urine. 3. Bilateral lower extremity infected ulcers. 4. Generalized plaque psoriasis. 5. Alcoholic liver disease. 6. Hepatic encephalopathy. 7. Non-ischemic cardiomyopathy. 8. Decompensated heart failure. PLAN: Suggest zamudio cultures, to get sed rate, wound culture and sensitivity of the right lower extremity. Continue IV Primaxin 500 mg every 8 hours started on 07/15/2018. Continue IV vancomycin 1 g every 24 hours. It started also on 07/15/2018. We will add IV Flagyl 500 every 8 hours for possible aspiration and intraabdominal sepsis. The patient's abdomen and pelvis CT showed diffuse soft tissue edema and small right effusion with cirrhosis and bowel ileus with questionable small bowel obstruction. We will follow up serial x-rays and films. Follow up cultures to adjust antibiotics. Case discussed with the staff. We will follow with you. Thank you very much for allowing me to participate in the care of your patient. Linda Smith MD
[2018-07-17] MEDS: (Novolin R) Insulin Human Regular 100 units/ml vial SC SCH ×4 (08:45→21:53)
[2018-07-17] MEDS: Propranolol 5 mg Tab PO SCH ×3 (08:47→19:45)
[2018-07-17] MEDS: Mupirocin 2% Ointment (NASAL) NAS SCH ×2 (10:04→17:08)
[2018-07-17] MEDS: Pantoprazole 40 mg EC Tab PO SCH (10:28)
[2018-07-17] MEDS: Nystatin 100,000 Units/ml Oral Susp 5 ml UD PO SCH ×4 (10:28→21:54)
[2018-07-17] MEDS: Ammonium Lactate 12% Lotion (225 g) EXT SCH (10:30)
--- NOTE | 2018-07-17 18:11 | CP.PCM.PN ---
Subjective - Date & Time of Evaluation Date of Evaluation: 07/17/18 Time of Evaluation: 18:09 - Subjective Subjective: Patient is morning feeling well. He was having some headache. But no fever noted today. Mild low-grade fever noted. Patient was seen by infectious disease specialist. Antibiotic was adjusted. On examination: Vital signs stable. Blood pressure slightly on the low side. No nausea no vomiting noted. Chest is clear Abdominal tenderness negative. Denies any nausea at this time, Bilateral pedal edema noted. Currently patient is on vancomycin, Flagyl, imipenem. We will closely monitor the patient. Patient is a 42-year-old male with a h istory of alcoholic liver disease chronic liver disease. Admitted to the hospital with the sepsis. Clinically stable. We will continue the current treatment. On antibiotic. Sepsis most likely acute the acute pneumonia. Objective - Vital Signs/Intake and Output Vital Signs (last 24 hours): Temp Pulse Resp BP Pulse Ox 97.8 F 76 20 130/89 100 07/17/18 15:18 07/17/18 15:18 07/17/18 15:18 07/17/18 15:18 07/17/18 15:18 Intake and Output: 07/17/18 07/17/18 06:59 18:59 Intake Total 780 Output Total 225 Balance 555 - Medications Medications: Current Medications Acetaminophen (Tylenol 325mg Tab) 650 mg PO Q6 PRN PRN Reason: Fever >100.4 F Last Admin: 07/16/18 08:11 Dose: 650 mg Albuterol/Ipratropium (Duoneb 3 Mg/0.5 Mg (3 Ml) Ud) 3 ml INH RQ4 [facility] Last Admin: 07/17/18 11:08 Dose: 3 ml Fluocinonide (Lidex 0.05% Cream) 1 gm TOP BID [facility] Last Admin: 07/17/18 17:32 Dose: 1 appl Folic Acid (Folic Acid) 1 mg PO DAILY [facility] Last Admin: 07/17/18 10:28 Dose: 1 mg Furosemide (Lasix) 40 mg PO DAILY [facility] Last Admin: 07/15/18 09:26 Dose: 40 mg Vancomycin/Sodium Chloride (Vancomycin 1 Gm/Ns 200 Ml) 1 gm in 200 mls @ 133.333 mls/hr IVPB Q24H [facility]; Protocol Last Admin: 07/16/18 20:11 Dose: 133.333 mls/hr Imipenem/Cilastatin Sodium 500 (mg/ Sodium Chloride) 100 mls @ 100 mls/hr IVPB Q8 [facility]; Protocol Last Admin: 07/17/18 13:46 Dose: 100 mls/hr Metronidazole (Flagyl) 500 mg in 100 mls @ 100 mls/hr IVPB Q8H [facility]; Protocol Last Admin: 07/17/18 12:49 Dose: 100 mls/hr Insulin Human Regular (Novolin R) 0 unit SC ACHS [facility]; Protocol Last Admin: 07/17/18 17:08 Dose: Not Given Lactic Acid (Lac-Hydrin 12% Lotion (225 G)) 1 gm EXT DAILY [facility] Last Admin: 07/17/18 10:30 Dose: Not Given Lactulose (Enulose) 20 gm PO TID [facility] Last Admin: 07/17/18 17:08 Dose: Not Given Losartan Potassium (Cozaar) 50 mg PO DAILY [facility] Last Admin: 07/17/18 10:28 Dose: 50 mg Mupirocin (Bactroban 2% Nasal) 0.25 gm ORION BID [facility] Last Admin: 07/17/18 17:08 Dose: Not Given Nystatin (Nystatin Oral Susp) 5 ml PO QID [facility] Last Admin: 07/17/18 17:09 Dose: Not Given Pantoprazole Sodium (Protonix Ec Tab) 40 mg PO DAILY [facility] Last Admin: 07/17/18 10:28 Dose: 40 mg Propranolol HCl (Inderal) 5 mg PO 0800,1400,2000 [facility] Last Admin: 07/17/18 13:46 Dose: 5 mg Saccharomyces Boulardii (Florastor) 250 mg PO HS [facility] Last Admin: 07/16/18 22:27 Dose: 250 mg Thiamine HCl (Vitamin B1 Tab) 100 mg PO DAILY [facility] Last Admin: 07/17/18 10:28 Dose: 100 mg - Labs Labs: 07/16/18 06:17 07/16/18 06:17 PT 16.6 SECONDS (9.7-12.2) H 07/07/18 20:06 INR 1.5 07/07/18 20:06 APTT 37 SECONDS (21-34) H 07/07/18 20:06
[2018-07-17] MEDS: Vancomycin 1 gm/NS 200 ml 1 GM/200 ML BAG IVPB SCH (19:45)
[2018-07-17] MEDS: Saccharomyces Boulardi 250 mg Cap PO SCH (21:30)
[2018-07-18] MEDS: Albuterol-Ipratrop 3 mg / 0.5 (3 ml) UD INH SCH ×5 (04:12→23:53)
[2018-07-18] MEDS: metroNIDAZOLE IV 500 mg/100 ml 500 MG/100 ML BAG IVPB SCH ×3 (04:17→20:44)
[2018-07-18] MEDS: (Novolin R) Insulin Human Regular 100 units/ml vial SC SCH ×3 (07:30→17:04)
[2018-07-18 07:54] LABS: BASO # 0.1 K/uL (0.0-0.2); BASO % 0.6 % (0.0-2.0); EOS # 0.4 K/uL (0.0-0.7); EOS % 3.6 % (0.0-4.0); HEMOGLOBIN 11.3 g/dL (12.0-18.0); LYMPH # 1.3 K/uL (1.0-4.3); LYMPH % 11.9 % (20.0-40.0); MEAN CELL VOLUME 83.9 fL (80.0-94.0); MEAN CORPUSCULAR HEMOGLOBIN 25.9 pg (27.0-31.0); MEAN CORPUSCULAR HGB CONC 30.9 g/dL (33.0-37.0); MEAN PLATELET VOLUME 8.7 fL (7.2-11.7); NEUT % 74.9 % (50.0-75.0); NRBC % 0.1 % (0.0-2.0); RBC 4.37 Mil/uL (4.40-5.90); RED CELL DISTRIBUTION WIDTH 23.3 % (11.5-14.5)
[2018-07-18 07:56] LABS: ALB/GLOB RATIO 0.6 (1.0-2.1); ALBUMIN 2.1 g/dL (3.5-5.0); ALT/SGPT 31 U/L (21-72); AST/SGOT 52 U/L (17-59); BLOOD UREA NITROGEN 18 mg/dL (9-20); CALCIUM 7.2 mg/dl (8.6-10.4); GFR NON-AFRICAN AMERICAN > 60
[2018-07-18 07:57] LABS: WHITE BLOOD COUNT 10.7 K/uL (4.8-10.8)
[2018-07-18] MEDS: Propranolol 5 mg Tab PO SCH ×3 (08:00→20:46)
[2018-07-18] MEDS: Ammonium Lactate 12% Lotion (225 g) EXT SCH (10:00)
[2018-07-18] MEDS: Nystatin 100,000 Units/ml Oral Susp 5 ml UD PO SCH ×4 (10:00→21:02)
[2018-07-18] MEDS: Mupirocin 2% Ointment (NASAL) NAS SCH ×2 (10:02→17:03)
[2018-07-18] MEDS: Pantoprazole 40 mg EC Tab PO SCH (10:02)
--- NOTE | 2018-07-18 12:56 | CP.PCM.PN ---
Subjective - Date & Time of Evaluation Date of Evaluation: 07/18/18 Time of Evaluation: 12:56 - Subjective Subjective: CHIEF COMPLAINTS TODAY : TEMPERATURE IMPROVED C/O SOB ALSO C/O DIARRHOEA PT ON LACTULOSE FOR HIGH NH3 LEVELS ROS. HEENT : N. Resp : +VE COUGH, wheezing ,pleuritic CP ,or hemoptysis Cardio : No anginal CP, PND, orthopnea, palpitation GI : No abd.pain, n/v , +VE DIARRHOEA TODAY , NO GI bleeding . 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 Musculoskel : No joint swelling , Derm : No rash Psych : Normal affect. Ext : No swelling ,calf pain PE. Pt. is alert awake in no distress. V.S As noted in the chart Head ,ear nose,throat and eyes : Normal. Neck : Supple with normal carotids. Lungs: B/L RHONCHI Heart : S1 & S2 normal with S4. No murmur. Abd : Soft non tender with normal bowel sounds. Neuro : Moves all ext. with no localized deficit. Ext : +VE 1+ EDEMA with intact pulses.Non tender calves RT LE ULCERS GRANULATING WITH VITILIGO PATCHES. Derm : DIFFUSE GENERALIZED PLAQUE PSORIASIS LABS/RADIOLOGY: REVIEWED WBC 10.1 IMPROVED URINE CULTURE +VE GPC < 10,000 ORGS /ML ASSESSMENT. GRAM -VE PNEUMONA ( RAOULTELLA -KLEIBSIELLA -ORNITHINOLYTICA ) ?UTI DECOMPENSATED CHF NON ISCHEMIC CARDIOMYOPATHY ALCOHOLIC ENCEPHALOPATHY / LIVER DISEASE GENERALIZED PLAQUE PSORIASIS. ILEUS/ ?SBO BY CT ABD/PELVIS GENERALIZED ANASARCA /PLAN : CONTINUE IV ABX ORDERED IV PRIMAXIN 500MG IVPB Q 8HRLY 07/15/18 IV VANCOMYCIN 1GM IVPB Q 24HRLY 07/15/18. IV FLAGYL 500MG IVPB Q 8HRLY 07/16/18. F/U CULTURES TO ADJUST ABX CASE DISCUSSED WITH PMD. Objective - Vital Signs/Intake and Output Vital Signs (last 24 hours): Temp Pulse Resp BP Pulse Ox 98.1 F 79 20 134/89 99 07/18/18 07:30 07/18/18 07:30 07/18/18 07:30 07/18/18 10:02 07/18/18 07:30 Intake and Output: 07/18/18 07/18/18 06:59 18:59 Intake Total 800 Balance 800 - Medications Medications: Current Medications Acetaminophen (Tylenol 325mg Tab) 650 mg PO Q6 PRN PRN Reason: Fever >100.4 F Last Admin: 07/17/18 19:53 Dose: 650 mg Albuterol/Ipratropium (Duoneb 3 Mg/0.5 Mg (3 Ml) Ud) 3 ml INH RQ4 [facility] Last Admin: 07/18/18 08:15 Dose: Not Given Fluocinonide (Lidex 0.05% Cream) 1 gm TOP BID [facility] Last Admin: 07/17/18 17:32 Dose: 1 appl Folic Acid (Folic Acid) 1 mg PO DAILY [facility] Last Admin: 07/18/18 10:02 Dose: 1 mg Furosemide (Lasix) 40 mg PO DAILY [facility] Last Admin: 07/18/18 10:02 Dose: 40 mg Vancomycin/Sodium Chloride (Vancomycin 1 Gm/Ns 200 Ml) 1 gm in 200 mls @ 133.333 mls/hr IVPB Q24H [facility]; Protocol Last Admin: 07/17/18 19:45 Dose: 133.333 mls/hr Imipenem/Cilastatin Sodium 500 (mg/ Sodium Chloride) 100 mls @ 100 mls/hr IVPB Q8 [facility]; Protocol Last Admin: 07/18/18 05:31 Dose: 100 mls/hr Metronidazole (Flagyl) 500 mg in 100 mls @ 100 mls/hr IVPB Q8H [facility]; Protocol Last Admin: 07/18/18 11:39 Dose: 100 mls/hr Insulin Human Regular (Novolin R) 0 unit SC ACHS [facility]; Protocol Last Admin: 07/17/18 21:53 Dose: Not Given Lactic Acid (Lac-Hydrin 12% Lotion (225 G)) 1 gm EXT DAILY [facility] Last Admin: 07/17/18 10:30 Dose: Not Given Lactulose (Enulose) 20 gm PO TID [facility] Last Admin: 07/18/18 10:44 Dose: Not Given Losartan Potassium (Cozaar) 50 mg PO DAILY [facility] Last Admin: 07/18/18 10:02 Dose: 50 mg Mupirocin (Bactroban 2% Nasal) 0.25 gm ORION BID [facility] Last Admin: 07/18/18 10:02 Dose: 0.25 gm Nystatin (Nystatin Oral Susp) 5 ml PO QID [facility] Last Admin: 07/17/18 21:54 Dose: Not Given Pantoprazole Sodium (Protonix Ec Tab) 40 mg PO DAILY [facility] Last Admin: 07/18/18 10:02 Dose: 40 mg Propranolol HCl (Inderal) 5 mg PO 0800,1400,2000 [facility] Last Admin: 07/17/18 19:45 Dose: 5 mg Saccharomyces Boulardii (Florastor) 250 mg PO HS [facility] Last Admin: 07/17/18 21:30 Dose: 250 mg Thiamine HCl (Vitamin B1 Tab) 100 mg PO DAILY [facility] Last Admin: 07/18/18 10:03 Dose: 100 mg - Labs Labs: 07/18/18 07:27 07/18/18 07:27 PT 16.6 SECONDS (9.7-12.2) H 07/07/18 20:06 INR 1.5 07/07/18 20:06 APTT 37 SECONDS (21-34) H 07/07/18 20:06
[2018-07-18] MEDS: Vancomycin 1 gm/NS 200 ml 1 GM/200 ML BAG IVPB SCH (19:41)
[2018-07-18] MEDS: Saccharomyces Boulardi 250 mg Cap PO SCH (21:40)
[2018-07-19] MEDS ORDERED: guaiFENesin DM 200 mg-20 mg/10 ml UD PO ONE
[2018-07-19] MEDS: Albuterol-Ipratrop 3 mg / 0.5 (3 ml) UD INH SCH ×5 (03:19→20:23)
[2018-07-19] MEDS: metroNIDAZOLE IV 500 mg/100 ml 500 MG/100 ML BAG IVPB SCH ×3 (04:50→20:22)
[2018-07-19] MEDS: (Novolin R) Insulin Human Regular 100 units/ml vial SC SCH ×4 (07:36→21:46)
[2018-07-19] MEDS: Propranolol 5 mg Tab PO SCH ×3 (08:03→21:45)
[2018-07-19] MEDS: Pantoprazole 40 mg EC Tab PO SCH (09:42)
[2018-07-19] MEDS: Nystatin 100,000 Units/ml Oral Susp 5 ml UD PO SCH ×4 (09:43→21:46)
[2018-07-19] MEDS: Mupirocin 2% Ointment (NASAL) NAS SCH ×2 (09:43→17:37)
[2018-07-19] MEDS: Ammonium Lactate 12% Lotion (225 g) EXT SCH (09:44)
[2018-07-19] MEDS: Vancomycin 1 gm/NS 200 ml 1 GM/200 ML BAG IVPB SCH (20:22)
[2018-07-19] MEDS: Saccharomyces Boulardi 250 mg Cap PO SCH (21:45)
--- NOTE | 2018-07-19 21:45 | CP.PCM.PN ---
Subjective - Date & Time of Evaluation Date of Evaluation: 07/19/18 Time of Evaluation: 21:45 - Subjective Subjective: CHIEF COMPLAINTS TODAY : AFEBRILE C/O SOB /COUGH ON IV ABX ROS. HEENT : N. Resp : +VE COUGH, wheezing ,pleuritic CP ,or hemoptysis Cardio : No anginal CP, PND, orthopnea, palpitation GI : No abd.pain, n/v , +VE DIARRHOEA TODAY , NO GI bleeding . 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 Musculoskel : No joint swelling , Derm : No rash Psych : Normal affect. Ext : No swelling ,calf pain PE. Pt. is alert awake in no distress. V.S As noted in the chart Head ,ear nose,throat and eyes : Normal. Neck : Supple with normal carotids. Lungs: B/L RHONCHI/RALES Heart : S1 & S2 normal with S4. No murmur. Abd : Soft non tender with normal bowel sounds. Neuro : Moves all ext. with no localized deficit. Ext : +VE 1+ EDEMA with intact pulses.Non tender calves RT LE ULCERS GRANULATING WITH VITILIGO PATCHES. Derm : DIFFUSE GENERALIZED PLAQUE PSORIASIS LABS/RADIOLOGY: REVIEWED WBC 10.1 IMPROVED URINE CULTURE +VE GPC < 10,000 ORGS /ML ASSESSMENT. GRAM -VE PNEUMONA ( RAOULTELLA -KLEIBSIELLA -ORNITHINOLYTICA ) ?UTI DECOMPENSATED CHF NON ISCHEMIC CARDIOMYOPATHY ALCOHOLIC ENCEPHALOPATHY / LIVER DISEASE GENERALIZED PLAQUE PSORIASIS. ILEUS/ ?SBO BY CT ABD/PELVIS GENERALIZED ANASARCA /PLAN : CONTINUE IV ABX ORDERED IV PRIMAXIN 500MG IVPB Q 8HRLY 07/15/18 IV VANCOMYCIN 1GM IVPB Q 24HRLY 07/15/18. IV FLAGYL 500MG IVPB Q 8HRLY 07/16/18. F/U CULTURES TO ADJUST ABX IV LASIX PER PMD Objective - Vital Signs/Intake and Output Vital Signs (last 24 hours): Temp Pulse Resp BP Pulse Ox 97.6 F 80 20 148/94 H 100 07/19/18 16:00 07/19/18 16:00 07/19/18 16:00 07/19/18 16:00 07/19/18 16:00 Intake and Output: 07/19/18 07/20/18 18:59 06:59 Intake Total 700 350 Balance 700 350 - Medications Medications: Current Medications Acetaminophen (Tylenol 325mg Tab) 650 mg PO Q6 PRN PRN Reason: Fever >100.4 F Last Admin: 07/18/18 22:38 Dose: 650 mg Albuterol/Ipratropium (Duoneb 3 Mg/0.5 Mg (3 Ml) Ud) 3 ml INH RQ4 [facility] Last Admin: 07/19/18 20:23 Dose: 3 ml Fluocinonide (Lidex 0.05% Cream) 1 gm TOP BID [facility] Last Admin: 07/19/18 09:44 Dose: Not Given Folic Acid (Folic Acid) 1 mg PO DAILY [facility] Last Admin: 07/19/18 09:42 Dose: 1 mg Furosemide (Lasix) 40 mg PO DAILY [facility] Last Admin: 07/19/18 09:42 Dose: 40 mg Vancomycin/Sodium Chloride (Vancomycin 1 Gm/Ns 200 Ml) 1 gm in 200 mls @ 133.333 mls/hr IVPB Q24H [facility]; Protocol Last Admin: 07/19/18 20:22 Dose: 133.333 mls/hr Imipenem/Cilastatin Sodium 500 (mg/ Sodium Chloride) 100 mls @ 100 mls/hr IVPB Q8 [facility]; Protocol Last Admin: 07/19/18 13:54 Dose: 100 mls/hr Metronidazole (Flagyl) 500 mg in 100 mls @ 100 mls/hr IVPB Q8H [facility]; Protocol Last Admin: 07/19/18 20:22 Dose: 100 mls/hr Insulin Human Regular (Novolin R) 0 unit SC ACHS [facility]; Protocol Last Admin: 07/19/18 17:37 Dose: Not Given Lactic Acid (Lac-Hydrin 12% Lotion (225 G)) 1 gm EXT DAILY [facility] Last Admin: 07/19/18 09:44 Dose: Not Given Lactulose (Enulose) 20 gm PO TID [facility] Last Admin: 07/19/18 17:36 Dose: Not Given Losartan Potassium (Cozaar) 50 mg PO DAILY [facility] Last Admin: 07/19/18 09:42 Dose: 50 mg Mupirocin (Bactroban 2% Nasal) 0.25 gm ORION BID [facility] Last Admin: 07/19/18 17:37 Dose: Not Given Nystatin (Nystatin Oral Susp) 5 ml PO QID [facility] Last Admin: 07/19/18 17:37 Dose: Not Given Pantoprazole Sodium (Protonix Ec Tab) 40 mg PO DAILY [facility] Last Admin: 07/19/18 09:42 Dose: 40 mg Promethazine HCl (Phenergan Syrup) 6.25 mg PO Q6 PRN PRN Reason: Cough Propranolol HCl (Inderal) 5 mg PO 0800,1400,2000 [facility] Last Admin: 07/19/18 13:52 Dose: 5 mg Saccharomyces Boulardii (Florastor) 250 mg PO HS [facility] Last Admin: 07/18/18 21:40 Dose: 250 mg Thiamine HCl (Vitamin B1 Tab) 100 mg PO DAILY [facility] Last Admin: 07/19/18 09:42 Dose: 100 mg - Labs Labs: 07/18/18 07:27 07/18/18 07:27 PT 16.6 SECONDS (9.7-12.2) H 07/07/18 20:06 INR 1.5 07/07/18 20:06 APTT 37 SECONDS (21-34) H 07/07/18 20:06
--- NOTE | 2018-07-19 22:58 | CP.PCM.PN ---
Subjective - Date & Time of Evaluation Date of Evaluation: 07/19/18 Time of Evaluation: 22:57 - Subjective Subjective: Patient still having increasing cough. Cough mostly at nighttime. Mostly dry. No fever recently. No abdominal pain. Bowel movements are normal On examination: Vital signs stable. Chest good air entry regular heart sounds noted Abdomen soft. Edema in the legs negative. Labs reviewed CBC is better. Assessment and recommendation: 42-year-old male admitted to the hospital with the decompensated systolic heart failure. Also now having bacteremia, bronchitis. Bacterial sepsis. Patient is being seen by infectious disease on multiple antibiotic. We will continue the IV Lasix and will follow the patient repeat labs tomorrow Objective - Vital Signs/Intake and Output Vital Signs (last 24 hours): Temp Pulse Resp BP Pulse Ox 97.6 F 80 20 148/94 H 100 07/19/18 16:00 07/19/18 16:00 07/19/18 16:00 07/19/18 16:00 07/19/18 16:00 Intake and Output: 07/19/18 07/20/18 18:59 06:59 Intake Total 700 350 Output Total 1050 Balance 700 -700 - Medications Medications: Current Medications Acetaminophen (Tylenol 325mg Tab) 650 mg PO Q6 PRN PRN Reason: Fever >100.4 F Last Admin: 07/18/18 22:38 Dose: 650 mg Albuterol/Ipratropium (Duoneb 3 Mg/0.5 Mg (3 Ml) Ud) 3 ml INH RQ4 [facility] Last Admin: 07/19/18 20:23 Dose: 3 ml Fluocinonide (Lidex 0.05% Cream) 1 gm TOP BID [facility] Last Admin: 07/19/18 21:47 Dose: Not Given Folic Acid (Folic Acid) 1 mg PO DAILY [facility] Last Admin: 07/19/18 09:42 Dose: 1 mg Furosemide (Lasix) 40 mg PO DAILY [facility] Last Admin: 07/19/18 09:42 Dose: 40 mg Vancomycin/Sodium Chloride (Vancomycin 1 Gm/Ns 200 Ml) 1 gm in 200 mls @ 133.333 mls/hr IVPB Q24H [facility]; Protocol Last Admin: 07/19/18 20:22 Dose: 133.333 mls/hr Imipenem/Cilastatin Sodium 500 (mg/ Sodium Chloride) 100 mls @ 100 mls/hr IVPB Q8 [facility]; Protocol Last Admin: 07/19/18 21:45 Dose: 100 mls/hr Metronidazole (Flagyl) 500 mg in 100 mls @ 100 mls/hr IVPB Q8H [facility]; Protocol Last Admin: 07/19/18 20:22 Dose: 100 mls/hr Insulin Human Regular (Novolin R) 0 unit SC ACHS [facility]; Protocol Last Admin: 07/19/18 21:46 Dose: Not Given Lactic Acid (Lac-Hydrin 12% Lotion (225 G)) 1 gm EXT DAILY [facility] Last Admin: 07/19/18 09:44 Dose: Not Given Lactulose (Enulose) 20 gm PO TID [facility] Last Admin: 07/19/18 17:36 Dose: Not Given Losartan Potassium (Cozaar) 50 mg PO DAILY [facility] Last Admin: 07/19/18 09:42 Dose: 50 mg Mupirocin (Bactroban 2% Nasal) 0.25 gm ORION BID [facility] Last Admin: 07/19/18 17:37 Dose: Not Given Nystatin (Nystatin Oral Susp) 5 ml PO QID [facility] Last Admin: 07/19/18 21:46 Dose: Not Given Pantoprazole Sodium (Protonix Ec Tab) 40 mg PO DAILY [facility] Last Admin: 07/19/18 09:42 Dose: 40 mg Promethazine HCl (Phenergan Syrup) 6.25 mg PO Q6 PRN PRN Reason: Cough Propranolol HCl (Inderal) 5 mg PO 0800,1400,2000 [facility] Last Admin: 07/19/18 21:45 Dose: 5 mg Saccharomyces Boulardii (Florastor) 250 mg PO HS [facility] Last Admin: 07/19/18 21:45 Dose: 250 mg Thiamine HCl (Vitamin B1 Tab) 100 mg PO DAILY [facility] Last Admin: 07/19/18 09:42 Dose: 100 mg - Labs Labs: 07/18/18 07:27 07/18/18 07:27 PT 16.6 SECONDS (9.7-12.2) H 07/07/18 20:06 INR 1.5 07/07/18 20:06 APTT 37 SECONDS (21-34) H 07/07/18 20:06
[2018-07-20] MEDS: Albuterol-Ipratrop 3 mg / 0.5 (3 ml) UD INH SCH ×7 (00:08→23:45)
[2018-07-20] MEDS: Promethazine 6.25 MG/5 ML CUP PO PRN ×3 (00:11→17:52)
[2018-07-20] MEDS: metroNIDAZOLE IV 500 mg/100 ml 500 MG/100 ML BAG IVPB SCH ×3 (03:47→20:00)
[2018-07-20 07:06] LABS: BASO # 0.1 K/uL (0.0-0.2); BASO % 1.2 % (0.0-2.0); EOS # 0.5 K/uL (0.0-0.7); EOS % 4.9 % (0.0-4.0); HEMOGLOBIN 10.3 g/dL (12.0-18.0); LYMPH # 1.6 K/uL (1.0-4.3); LYMPH % 15.9 % (20.0-40.0); MEAN CELL VOLUME 83.2 fL (80.0-94.0); MEAN CORPUSCULAR HEMOGLOBIN 26.9 pg (27.0-31.0); MEAN CORPUSCULAR HGB CONC 32.3 g/dL (33.0-37.0); MEAN PLATELET VOLUME 8.3 fL (7.2-11.7); MONO # 0.9 K/uL (0.0-0.8); MONO % 9.2 % (0.0-10.0); NEUT # 6.9 K/uL (1.8-7.0); NEUT % 68.8 % (50.0-75.0); RBC 3.82 Mil/uL (4.40-5.90); RED CELL DISTRIBUTION WIDTH 22.8 % (11.5-14.5); WHITE BLOOD COUNT 10.1 K/uL (4.8-10.8)
[2018-07-20 07:14] LABS: ALB/GLOB RATIO 0.7 (1.0-2.1); ALT/SGPT 29 U/L (21-72); AST/SGOT 56 U/L (17-59); BLOOD UREA NITROGEN 16 mg/dL (9-20); CALCIUM 7.4 mg/dl (8.6-10.4); GFR NON-AFRICAN AMERICAN > 60
[2018-07-20] MEDS: (Novolin R) Insulin Human Regular 100 units/ml vial SC SCH ×4 (07:30→21:25)
--- NOTE | 2018-07-20 08:01 | CP.PCM.PN ---
Subjective - Date & Time of Evaluation Date of Evaluation: 07/20/18 Time of Evaluation: 08:00 - Subjective Subjective: Patient this morning had again fever. He still continues to have a worsening cough. But mostly dry cough noted. He has no chest pain. Frequent episodes of diarrhea noted. On examination: Vital signs are stable otherwise. Temperature 101.7 noted. Chest good air entry Regular heart sounds noted CAT scan of the abdomen showing evidence of no ascites, mild splenomegaly, liver cirrhosis, associated with a mild dilated loops of bowels. Labs otherwise reviewed nonspecific. Low magnesium level noted Assessment and recommendation: 42-year-old male with liver cirrhosis admitted with the sepsis and CHF. Currently on medications on antibiotic we will continue to monitor and will follow the patient Objective - Vital Signs/Intake and Output Vital Signs (last 24 hours): Temp Pulse Resp BP Pulse Ox 99.9 F H 101 H 20 165/93 H 98 07/20/18 07:00 07/20/18 07:00 07/20/18 07:00 07/20/18 07:00 07/20/18 07:00 Intake and Output: 07/20/18 07/20/18 06:59 18:59 Intake Total 350 Output Total 1050 Balance -700 - Medications Medications: Current Medications Acetaminophen (Tylenol 325mg Tab) 650 mg PO Q6 PRN PRN Reason: Fever >100.4 F Last Admin: 07/20/18 00:10 Dose: 650 mg Albuterol/Ipratropium (Duoneb 3 Mg/0.5 Mg (3 Ml) Ud) 3 ml INH RQ4 [facility] Last Admin: 07/20/18 07:48 Dose: 3 ml Fluocinonide (Lidex 0.05% Cream) 1 gm TOP BID [facility] Last Admin: 07/19/18 21:47 Dose: Not Given Folic Acid (Folic Acid) 1 mg PO DAILY [facility] Last Admin: 07/19/18 09:42 Dose: 1 mg Furosemide (Lasix) 20 mg IVP Q12 [facility] Vancomycin/Sodium Chloride (Vancomycin 1 Gm/Ns 200 Ml) 1 gm in 200 mls @ 133.333 mls/hr IVPB Q24H [facility]; Protocol Last Admin: 07/19/18 20:22 Dose: 133.333 mls/hr Imipenem/Cilastatin Sodium 500 (mg/ Sodium Chloride) 100 mls @ 100 mls/hr IVPB Q8 [facility]; Protocol Last Admin: 07/20/18 05:01 Dose: 100 mls/hr Metronidazole (Flagyl) 500 mg in 100 mls @ 100 mls/hr IVPB Q8H [facility]; Protocol Last Admin: 07/20/18 03:47 Dose: 100 mls/hr Insulin Human Regular (Novolin R) 0 unit SC ACHS [facility]; Protocol Last Admin: 07/19/18 21:46 Dose: Not Given Lactic Acid (Lac-Hydrin 12% Lotion (225 G)) 1 gm EXT DAILY [facility] Last Admin: 07/19/18 09:44 Dose: Not Given Lactulose (Enulose) 20 gm PO TID [facility] Last Admin: 07/19/18 17:36 Dose: Not Given Losartan Potassium (Cozaar) 50 mg PO DAILY [facility] Last Admin: 07/19/18 09:42 Dose: 50 mg Mupirocin (Bactroban 2% Nasal) 0.25 gm ORION BID [facility] Last Admin: 07/19/18 17:37 Dose: Not Given Nystatin (Nystatin Oral Susp) 5 ml PO QID [facility] Last Admin: 07/19/18 21:46 Dose: Not Given Pantoprazole Sodium (Protonix Ec Tab) 40 mg PO DAILY [facility] Last Admin: 07/19/18 09:42 Dose: 40 mg Promethazine HCl (Phenergan Syrup) 6.25 mg PO Q6 PRN PRN Reason: Cough Last Admin: 07/20/18 06:36 Dose: 6.25 mg Propranolol HCl (Inderal) 5 mg PO 0800,1400,2000 [facility] Last Admin: 07/19/18 21:45 Dose: 5 mg Saccharomyces Boulardii (Florastor) 250 mg PO HS [facility] Last Admin: 07/19/18 21:45 Dose: 250 mg Thiamine HCl (Vitamin B1 Tab) 100 mg PO DAILY [facility] Last Admin: 07/19/18 09:42 Dose: 100 mg - Labs Labs: 07/20/18 06:50 07/20/18 06:50 PT 16.6 SECONDS (9.7-12.2) H 07/07/18 20:06 INR 1.5 07/07/18 20:06 APTT 37 SECONDS (21-34) H 07/07/18 20:06
[2018-07-20] MEDS: Magnesium Sulfate 1 gm in D5W 1 GM/100 ML BAG IVPB SCH ×2 (08:15→09:15)
[2018-07-20] MEDS: Propranolol 5 mg Tab PO SCH ×3 (08:30→20:00)
[2018-07-20] MEDS: Ammonium Lactate 12% Lotion (225 g) EXT SCH (09:06)
[2018-07-20] MEDS: Mupirocin 2% Ointment (NASAL) NAS SCH ×2 (09:07→17:26)
[2018-07-20] MEDS: Nystatin 100,000 Units/ml Oral Susp 5 ml UD PO SCH ×4 (09:11→21:25)
[2018-07-20] MEDS: Pantoprazole 40 mg EC Tab PO SCH (09:19)
--- NOTE | 2018-07-20 17:29 | CP.PCM.PN ---
Subjective - Date & Time of Evaluation Date of Evaluation: 07/20/18 Time of Evaluation: 17:29 - Subjective Subjective: CHIEF COMPLAINTS TODAY : AFEBRILE C/O DRY COUGH ON IV ABX NO ACUTE EVENTS OVERNIGHT ROS. HEENT : N. Resp : +VE COUGH, wheezing ,pleuritic CP ,or hemoptysis Cardio : No anginal CP, PND, orthopnea, palpitation GI : No abd.pain, n/v , NO GI bleeding . 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 Musculoskel : No joint swelling , Derm : No rash Psych : Normal affect. Ext : No swelling ,calf pain PE. Pt. is alert awake in no distress. V.S As noted in the chart Head ,ear nose,throat and eyes : Normal. Neck : Supple with normal carotids. Lungs: B/L RHONCHI/RALES Heart : S1 & S2 normal with S4. No murmur. Abd : Soft non tender with normal bowel sounds. Neuro : Moves all ext. with no localized deficit. Ext : +VE 1+ EDEMA with intact pulses.Non tender calves RT LE ULCERS GRANULATING WITH VITILIGO PATCHES. Derm : DIFFUSE GENERALIZED PLAQUE PSORIASIS LABS/RADIOLOGY: REVIEWED WBC 10.1 IMPROVED URINE CULTURE +VE GPC < 10,000 ORGS /ML ASSESSMENT. GRAM -VE PNEUMONA ( RAOULTELLA -KLEIBSIELLA -ORNITHINOLYTICA ) ?UTI DECOMPENSATED CHF NON ISCHEMIC CARDIOMYOPATHY ALCOHOLIC ENCEPHALOPATHY / LIVER DISEASE GENERALIZED PLAQUE PSORIASIS. ILEUS/ ?SBO BY CT ABD/PELVIS GENERALIZED ANASARCA /PLAN : CONTINUE IV ABX ORDERED IV PRIMAXIN 500MG IVPB Q 8HRLY 07/15/18 IV VANCOMYCIN 1GM IVPB Q 24HRLY 07/15/18. IV FLAGYL 500MG IVPB Q 8HRLY 07/16/18. IV LASIX PER PMD . CONTINUE PULMONARY TOILET. Objective - Vital Signs/Intake and Output Vital Signs (last 24 hours): Temp Pulse Resp BP Pulse Ox 97.7 F 97 H 20 131/78 99 07/20/18 15:12 07/20/18 15:12 07/20/18 15:12 07/20/18 15:12 07/20/18 15:12 Intake and Output: 07/20/18 07/20/18 06:59 18:59 Intake Total 350 Output Total 1050 Balance -700 - Medications Medications: Current Medications Acetaminophen (Tylenol 325mg Tab) 650 mg PO Q6 PRN PRN Reason: Fever >100.4 F Last Admin: 07/20/18 00:10 Dose: 650 mg Albuterol/Ipratropium (Duoneb 3 Mg/0.5 Mg (3 Ml) Ud) 3 ml INH RQ4 [facility] Last Admin: 07/20/18 15:40 Dose: 3 ml Fluocinonide (Lidex 0.05% Cream) 1 gm TOP BID [facility] Last Admin: 07/20/18 17:26 Dose: Not Given Folic Acid (Folic Acid) 1 mg PO DAILY [facility] Last Admin: 07/20/18 09:19 Dose: 1 mg Furosemide (Lasix) 20 mg IVP Q12 [facility] Last Admin: 07/20/18 09:24 Dose: 20 mg Gabapentin (Neurontin) 300 mg PO BID [facility] Last Admin: 07/20/18 17:26 Dose: 300 mg Vancomycin/Sodium Chloride (Vancomycin 1 Gm/Ns 200 Ml) 1 gm in 200 mls @ 133.333 mls/hr IVPB Q24H [facility]; Protocol Last Admin: 07/19/18 20:22 Dose: 133.333 mls/hr Imipenem/Cilastatin Sodium 500 (mg/ Sodium Chloride) 100 mls @ 100 mls/hr IVPB Q8 [facility]; Protocol Last Admin: 07/20/18 14:15 Dose: 100 mls/hr Metronidazole (Flagyl) 500 mg in 100 mls @ 100 mls/hr IVPB Q8H [facility]; Protocol Last Admin: 07/20/18 12:00 Dose: 100 mls/hr Insulin Human Regular (Novolin R) 0 unit SC ACHS [facility]; Protocol Last Admin: 07/20/18 11:56 Dose: Not Given Lactic Acid (Lac-Hydrin 12% Lotion (225 G)) 1 gm EXT DAILY [facility] Last Admin: 07/20/18 09:06 Dose: Not Given Lactulose (Enulose) 20 gm PO BID [facility] Last Admin: 07/20/18 09:22 Dose: Not Given Losartan Potassium (Cozaar) 50 mg PO DAILY [facility] Last Admin: 07/20/18 09:19 Dose: 50 mg Mupirocin (Bactroban 2% Nasal) 0.25 gm ORION BID [facility] Last Admin: 07/20/18 17:26 Dose: Not Given Nystatin (Nystatin Oral Susp) 5 ml PO QID [facility] Last Admin: 07/20/18 17:27 Dose: Not Given Pantoprazole Sodium (Protonix Ec Tab) 40 mg PO DAILY [facility] Last Admin: 07/20/18 09:19 Dose: 40 mg Promethazine HCl (Phenergan Syrup) 6.25 mg PO Q6 PRN PRN Reason: Cough Last Admin: 07/20/18 06:36 Dose: 6.25 mg Propranolol HCl (Inderal) 5 mg PO 0800,1400,2000 [facility] Last Admin: 07/20/18 14:14 Dose: 5 mg Saccharomyces Boulardii (Florastor) 250 mg PO HS [facility] Last Admin: 07/19/18 21:45 Dose: 250 mg Thiamine HCl (Vitamin B1 Tab) 100 mg PO DAILY [facility] Last Admin: 07/20/18 09:19 Dose: 100 mg - Labs Labs: 07/20/18 06:50 07/20/18 06:50 PT 16.6 SECONDS (9.7-12.2) H 07/07/18 20:06 INR 1.5 07/07/18 20:06 APTT 37 SECONDS (21-34) H 07/07/18 20:06
[2018-07-20] MEDS: Saccharomyces Boulardi 250 mg Cap PO SCH (21:18)
[2018-07-20] MEDS: Vancomycin 1 gm/NS 200 ml 1 GM/200 ML BAG IVPB SCH (21:29)
[2018-07-21] MEDS: Promethazine 6.25 MG/5 ML CUP PO PRN ×3 (01:56→21:11)
[2018-07-21] MEDS: Albuterol-Ipratrop 3 mg / 0.5 (3 ml) UD INH SCH ×6 (03:14→23:41)
[2018-07-21] MEDS: metroNIDAZOLE IV 500 mg/100 ml 500 MG/100 ML BAG IVPB SCH ×3 (04:20→20:00)
[2018-07-21] MEDS: (Novolin R) Insulin Human Regular 100 units/ml vial SC SCH ×4 (07:30→22:01)
[2018-07-21] MEDS: Propranolol 5 mg Tab PO SCH ×3 (09:00→20:00)
[2018-07-21] MEDS: Pantoprazole 40 mg EC Tab PO SCH (09:10)
[2018-07-21] MEDS: Mupirocin 2% Ointment (NASAL) NAS SCH ×2 (09:28→17:27)
[2018-07-21] MEDS: Ammonium Lactate 12% Lotion (225 g) EXT SCH (09:28)
[2018-07-21] MEDS: Nystatin 100,000 Units/ml Oral Susp 5 ml UD PO SCH ×4 (09:29→21:08)
--- NOTE | 2018-07-21 18:54 | CP.PCM.PN ---
Subjective - Date & Time of Evaluation Date of Evaluation: 07/21/18 Time of Evaluation: 18:53 - Subjective Subjective: Patient this morning still continues to complaining of cough. And chest tightness and wheezing noted. Patient is also complaining of some shortness of breath. 2. Room air oxygen saturation is 96%. Lung examination there is no evidence of any wheezing or rales noted. On examination: Vital signs otherwise stable. No abdominal distention noted. Pedal edema negative Assessment and recommendation: 42-year-old male with a history of liver disease and chronic liver disease liver cirrhosis admitted with CHF. Now developed a sepsis. Underlying pneumonia cannot be ruled out. We will repeat the labs tomorrow. On antibiotic now Objective - Vital Signs/Intake and Output Vital Signs (last 24 hours): Temp Pulse Resp BP Pulse Ox 99.0 F 81 20 122/80 97 07/21/18 07:30 07/21/18 07:30 07/21/18 07:30 07/21/18 09:11 07/21/18 00:00 Intake and Output: 07/21/18 07/21/18 06:59 18:59 Intake Total 850 Balance 850 - Medications Medications: Current Medications Acetaminophen (Tylenol 325mg Tab) 650 mg PO Q6 PRN PRN Reason: Fever >100.4 F Last Admin: 07/21/18 09:16 Dose: 650 mg Albuterol/Ipratropium (Duoneb 3 Mg/0.5 Mg (3 Ml) Ud) 3 ml INH RQ4 [facility] Last Admin: 07/21/18 15:56 Dose: Not Given Fluocinonide (Lidex 0.05% Cream) 1 gm TOP BID [facility] Last Admin: 07/21/18 17:27 Dose: Not Given Folic Acid (Folic Acid) 1 mg PO DAILY [facility] Last Admin: 07/21/18 09:10 Dose: 1 mg Furosemide (Lasix) 20 mg IVP Q12 [facility] Last Admin: 07/21/18 09:11 Dose: 20 mg Gabapentin (Neurontin) 300 mg PO BID [facility] Last Admin: 07/21/18 09:10 Dose: 300 mg Vancomycin/Sodium Chloride (Vancomycin 1 Gm/Ns 200 Ml) 1 gm in 200 mls @ 133.333 mls/hr IVPB Q24H [facility]; Protocol Last Admin: 07/20/18 21:29 Dose: 133.333 mls/hr Imipenem/Cilastatin Sodium 500 (mg/ Sodium Chloride) 100 mls @ 100 mls/hr IVPB Q8 [facility]; Protocol Last Admin: 07/21/18 13:00 Dose: 100 mls/hr Metronidazole (Flagyl) 500 mg in 100 mls @ 100 mls/hr IVPB Q8H [facility]; Protocol Last Admin: 07/21/18 12:00 Dose: 100 mls/hr Insulin Human Regular (Novolin R) 0 unit SC ACHS [facility]; Protocol Last Admin: 07/21/18 17:27 Dose: Not Given Lactic Acid (Lac-Hydrin 12% Lotion (225 G)) 1 gm EXT DAILY [facility] Last Admin: 07/21/18 09:28 Dose: Not Given Lactulose (Enulose) 20 gm PO BID [facility] Last Admin: 07/21/18 17:27 Dose: Not Given Losartan Potassium (Cozaar) 50 mg PO DAILY [facility] Last Admin: 07/21/18 09:15 Dose: 50 mg Mupirocin (Bactroban 2% Nasal) 0.25 gm ORION BID [facility] Last Admin: 07/21/18 17:27 Dose: Not Given Nystatin (Nystatin Oral Susp) 5 ml PO QID [facility] Last Admin: 07/21/18 17:28 Dose: Not Given Pantoprazole Sodium (Protonix Ec Tab) 40 mg PO DAILY [facility] Last Admin: 07/21/18 09:10 Dose: 40 mg Promethazine HCl (Phenergan Syrup) 6.25 mg PO Q6 PRN PRN Reason: Cough Last Admin: 07/21/18 09:10 Dose: 6.25 mg Propranolol HCl (Inderal) 5 mg PO 0800,1400,2000 [facility] Last Admin: 07/21/18 13:42 Dose: 5 mg Saccharomyces Boulardii (Florastor) 250 mg PO HS [facility] Last Admin: 07/20/18 21:18 Dose: 250 mg Thiamine HCl (Vitamin B1 Tab) 100 mg PO DAILY [facility] Last Admin: 07/21/18 09:10 Dose: 100 mg - Labs Labs: 07/20/18 06:50 07/20/18 06:50 PT 16.6 SECONDS (9.7-12.2) H 07/07/18 20:06 INR 1.5 07/07/18 20:06 APTT 37 SECONDS (21-34) H 07/07/18 20:06
[2018-07-21] MEDS: Saccharomyces Boulardi 250 mg Cap PO SCH (21:05)
[2018-07-21] MEDS: Vancomycin 1 gm/NS 200 ml 1 GM/200 ML BAG IVPB SCH (21:19)
--- NOTE | 2018-07-21 23:20 | CP.PCM.PN ---
Subjective - Date & Time of Evaluation Date of Evaluation: 07/21/18 Time of Evaluation: 23:20 - Subjective Subjective: CHIEF COMPLAINTS TODAY : AFEBRILE, T MAX 99.0 C/O CHEST TIGHTNESS NO ACUTE EVENTS OVERNIGHT ROS. HEENT : N. Resp : +VE COUGH, wheezing ,pleuritic CP ,or hemoptysis Cardio : CHEST TIGHTNESS, NO CP, PND, orthopnea, palpitation GI : No abd.pain, n/v , NO GI bleeding . 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 Musculoskel : No joint swelling , Derm : No rash Psych : Normal affect. Ext : No swelling ,calf pain PE. Pt. is alert awake in no distress. V.S As noted in the chart Head ,ear nose,throat and eyes : Normal. Neck : Supple with normal carotids. Lungs: -VE WHEEZE , IMPROVED AERATION Heart : S1 & S2 normal with S4. No murmur. Abd : Soft non tender with normal bowel sounds. Neuro : Moves all ext. with no localized deficit. Ext : +VE 1+ EDEMA with intact pulses.Non tender calves RT LE ULCERS GRANULATING WITH VITILIGO PATCHES. Derm : DIFFUSE GENERALIZED PLAQUE PSORIASIS LABS/RADIOLOGY: REVIEWED WBC 10.1 IMPROVED URINE CULTURE +VE GPC < 10,000 ORGS /ML ASSESSMENT. GRAM -VE PNEUMONA ( RAOULTELLA -KLEIBSIELLA -ORNITHINOLYTICA ) ?UTI DECOMPENSATED CHF NON ISCHEMIC CARDIOMYOPATHY ALCOHOLIC ENCEPHALOPATHY / LIVER DISEASE GENERALIZED PLAQUE PSORIASIS. ILEUS/ ?SBO BY CT ABD/PELVIS GENERALIZED ANASARCA /PLAN : CONTINUE IV ABX ORDERED IV PRIMAXIN 500MG IVPB Q 8HRLY 07/15/18 D/C IV VANCOMYCIN 1GM IVPB Q 24HRLY 07/15/18-07/22/18 D/C IV FLAGYL 500MG IVPB Q 8HRLY 07/16/18.- 07/22/18 REPEAT SPUTUM CULTURE F/U CXR IN AM ORDERED IV LASIX PER PMD . CONTINUE PULMONARY TOILET. Objective - Vital Signs/Intake and Output Vital Signs (last 24 hours): Temp Pulse Resp BP Pulse Ox 99.0 F 81 20 110/70 97 07/21/18 07:30 07/21/18 07:30 07/21/18 07:30 07/21/18 21:12 07/21/18 00:00 Intake and Output: 07/21/18 07/22/18 18:59 06:59 Intake Total 500 Balance 500 - Medications Medications: Current Medications Acetaminophen (Tylenol 325mg Tab) 650 mg PO Q6 PRN PRN Reason: Fever >100.4 F Last Admin: 07/21/18 09:16 Dose: 650 mg Albuterol/Ipratropium (Duoneb 3 Mg/0.5 Mg (3 Ml) Ud) 3 ml INH RQ4 [facility] Last Admin: 07/21/18 19:07 Dose: Not Given Fluocinonide (Lidex 0.05% Cream) 1 gm TOP BID [facility] Last Admin: 07/21/18 17:27 Dose: Not Given Folic Acid (Folic Acid) 1 mg PO DAILY [facility] Last Admin: 07/21/18 09:10 Dose: 1 mg Furosemide (Lasix) 20 mg IVP Q12 [facility] Last Admin: 07/21/18 21:12 Dose: 20 mg Gabapentin (Neurontin) 300 mg PO BID [facility] Last Admin: 07/21/18 18:30 Dose: 300 mg Vancomycin/Sodium Chloride (Vancomycin 1 Gm/Ns 200 Ml) 1 gm in 200 mls @ 133.333 mls/hr IVPB Q24H [facility]; Protocol Last Admin: 07/21/18 21:19 Dose: 133.333 mls/hr Imipenem/Cilastatin Sodium 500 (mg/ Sodium Chloride) 100 mls @ 100 mls/hr IVPB Q8 [facility]; Protocol Last Admin: 07/21/18 21:08 Dose: 100 mls/hr Metronidazole (Flagyl) 500 mg in 100 mls @ 100 mls/hr IVPB Q8H [facility]; Protocol Last Admin: 07/21/18 20:00 Dose: 100 mls/hr Insulin Human Regular (Novolin R) 0 unit SC ACHS [facility]; Protocol Last Admin: 07/21/18 22:01 Dose: Not Given Lactic Acid (Lac-Hydrin 12% Lotion (225 G)) 1 gm EXT DAILY [facility] Last Admin: 07/21/18 09:28 Dose: Not Given Lactulose (Enulose) 20 gm PO BID [facility] Last Admin: 07/21/18 17:27 Dose: Not Given Losartan Potassium (Cozaar) 50 mg PO DAILY [facility] Last Admin: 07/21/18 09:15 Dose: 50 mg Mupirocin (Bactroban 2% Nasal) 0.25 gm ORION BID [facility] Last Admin: 07/21/18 17:27 Dose: Not Given Nystatin (Nystatin Oral Susp) 5 ml PO QID [facility] Last Admin: 07/21/18 21:08 Dose: Not Given Pantoprazole Sodium (Protonix Ec Tab) 40 mg PO DAILY [facility] Last Admin: 07/21/18 09:10 Dose: 40 mg Promethazine HCl (Phenergan Syrup) 6.25 mg PO Q6 PRN PRN Reason: Cough Last Admin: 07/21/18 21:11 Dose: 6.25 mg Propranolol HCl (Inderal) 5 mg PO 0800,1400,2000 [facility] Last Admin: 07/21/18 20:00 Dose: 5 mg Saccharomyces Boulardii (Florastor) 250 mg PO HS [facility] Last Admin: 07/21/18 21:05 Dose: 250 mg Thiamine HCl (Vitamin B1 Tab) 100 mg PO DAILY [facility] Last Admin: 07/21/18 09:10 Dose: 100 mg - Labs Labs: 07/20/18 06:50 07/20/18 06:50 PT 16.6 SECONDS (9.7-12.2) H 07/07/18 20:06 INR 1.5 07/07/18 20:06 APTT 37 SECONDS (21-34) H 07/07/18 20:06
[2018-07-22] MEDS: Albuterol-Ipratrop 3 mg / 0.5 (3 ml) UD INH SCH ×5 (03:25→19:49)
[2018-07-22] MEDS: (Novolin R) Insulin Human Regular 100 units/ml vial SC SCH ×4 (07:30→21:14)
[2018-07-22 07:33] LABS: ALB/GLOB RATIO 0.6 (1.0-2.1); ALT/SGPT 31 U/L (21-72); AST/SGOT 48 U/L (17-59); BLOOD UREA NITROGEN 18 mg/dL (9-20); CALCIUM 7.3 mg/dl (8.6-10.4); GFR NON-AFRICAN AMERICAN > 60
[2018-07-22 07:57] LABS: BASO % 0.5 % (0.0-2.0); EOS # 0.5 K/uL (0.0-0.7); EOS % 7.7 % (0.0-4.0); HEMOGLOBIN 9.8 g/dL (12.0-18.0); LYMPH # 1.4 K/uL (1.0-4.3); LYMPH % 19.8 % (20.0-40.0); MEAN CELL VOLUME 82.8 fL (80.0-94.0); MEAN CORPUSCULAR HEMOGLOBIN 27.4 pg (27.0-31.0); MEAN CORPUSCULAR HGB CONC 33.1 g/dL (33.0-37.0); MEAN PLATELET VOLUME 8.4 fL (7.2-11.7); MONO # 0.8 K/uL (0.0-0.8); MONO % 11.9 % (0.0-10.0); NEUT # 4.2 K/uL (1.8-7.0); NEUT % 60.1 % (50.0-75.0); RBC 3.58 Mil/uL (4.40-5.90); RED CELL DISTRIBUTION WIDTH 22.8 % (11.5-14.5); WHITE BLOOD COUNT 6.9 K/uL (4.8-10.8)
--- NOTE | 2018-07-22 08:36 | RAD ---
Date of service: 07/22/2018 HISTORY: pna COMPARISON: 07/16/2018. FINDINGS: There is interval improved aeration in both lungs. No focal consolidation. LUNGS: The lungs are well inflated and clear. PLEURA: No pleural effusions or pneumothorax. CARDIOVASCULAR: Persistent mild cardiomegaly. There are mild aortic atherosclerotic calcifications present. OSSEOUS STRUCTURES: Within normal limits for the patient's age. VISUALIZED UPPER ABDOMEN: Normal. OTHER FINDINGS: None. IMPRESSION: Interval improved aeration in the lungs. No lobar pneumonia.
[2018-07-22] MEDS: Propranolol 5 mg Tab PO SCH ×3 (09:00→20:27)
[2018-07-22] MEDS: Pantoprazole 40 mg EC Tab PO SCH (09:22)
[2018-07-22] MEDS: Mupirocin 2% Ointment (NASAL) NAS SCH ×2 (09:23→17:20)
[2018-07-22] MEDS: Ammonium Lactate 12% Lotion (225 g) EXT SCH (09:23)
[2018-07-22] MEDS: Nystatin 100,000 Units/ml Oral Susp 5 ml UD PO SCH ×4 (09:24→21:15)
[2018-07-22] MEDS: Promethazine 6.25 MG/5 ML CUP PO PRN ×2 (11:47→17:20)
--- NOTE | 2018-07-22 17:28 | CP.PCM.PN ---
Subjective - Date & Time of Evaluation Date of Evaluation: 07/22/18 Time of Evaluation: 17:27 - Subjective Subjective: Patient still has cough today. But she is feeling well. Appetite is better. Currently on multiple antibiotic. I reviewed the labs. Magnesium level is low. Chest x-ray nonspecific. We will continue the current treatment I will discussed with ID for antibiotic duration. Will follow the patient. Currently pending the sputum culture Objective - Vital Signs/Intake and Output Vital Signs (last 24 hours): Temp Pulse Resp BP Pulse Ox 98.6 F 92 H 20 127/82 99 07/22/18 15:10 07/22/18 15:10 07/22/18 15:10 07/22/18 15:10 07/22/18 15:10 Intake and Output: 07/22/18 07/22/18 06:59 18:59 Intake Total 500 Output Total 750 Balance 500 -750 - Medications Medications: Current Medications Acetaminophen (Tylenol 325mg Tab) 650 mg PO Q6 PRN PRN Reason: Fever >100.4 F Last Admin: 07/22/18 00:07 Dose: 650 mg Albuterol/Ipratropium (Duoneb 3 Mg/0.5 Mg (3 Ml) Ud) 3 ml INH RQ4 [facility] Last Admin: 07/22/18 16:25 Dose: 3 ml Fluocinonide (Lidex 0.05% Cream) 1 gm TOP BID [facility] Last Admin: 07/22/18 17:23 Dose: Not Given Folic Acid (Folic Acid) 1 mg PO DAILY [facility] Last Admin: 07/22/18 09:22 Dose: 1 mg Furosemide (Lasix) 20 mg IVP Q12 [facility] Last Admin: 07/22/18 09:19 Dose: 20 mg Gabapentin (Neurontin) 300 mg PO BID [facility] Last Admin: 07/22/18 17:20 Dose: 300 mg Imipenem/Cilastatin Sodium 500 (mg/ Sodium Chloride) 100 mls @ 100 mls/hr IVPB Q8 [facility]; Protocol Last Admin: 07/22/18 13:52 Dose: 100 mls/hr Insulin Human Regular (Novolin R) 0 unit SC ACHS [facility]; Protocol Last Admin: 07/22/18 17:19 Dose: Not Given Lactic Acid (Lac-Hydrin 12% Lotion (225 G)) 1 gm EXT DAILY [facility] Last Admin: 07/22/18 09:23 Dose: Not Given Lactulose (Enulose) 20 gm PO BID [facility] Last Admin: 07/22/18 17:20 Dose: Not Given Losartan Potassium (Cozaar) 50 mg PO DAILY [facility] Last Admin: 07/22/18 09:22 Dose: 50 mg Mupirocin (Bactroban 2% Nasal) 0.25 gm ORINO BID [facility] Last Admin: 07/22/18 17:20 Dose: Not Given Nystatin (Nystatin Oral Susp) 5 ml PO QID [facility] Last Admin: 07/22/18 17:21 Dose: Not Given Pantoprazole Sodium (Protonix Ec Tab) 40 mg PO DAILY [facility] Last Admin: 07/22/18 09:22 Dose: 40 mg Promethazine HCl (Phenergan Syrup) 6.25 mg PO Q6 PRN PRN Reason: Cough Last Admin: 07/22/18 17:20 Dose: 6.25 mg Propranolol HCl (Inderal) 5 mg PO 0800,1400,2000 [facility] Last Admin: 07/22/18 13:51 Dose: 5 mg Saccharomyces Boulardii (Florastor) 250 mg PO HS [facility] Last Admin: 07/21/18 21:05 Dose: 250 mg Thiamine HCl (Vitamin B1 Tab) 100 mg PO DAILY [facility] Last Admin: 07/22/18 09:22 Dose: 100 mg - Labs Labs: 07/22/18 07:09 07/22/18 07:09 PT 16.6 SECONDS (9.7-12.2) H 07/07/18 20:06 INR 1.5 07/07/18 20:06 APTT 37 SECONDS (21-34) H 07/07/18 20:06
[2018-07-22] MEDS: Magnesium Sulfate 1 gm in D5W 1 GM/100 ML BAG IVPB SCH ×2 (17:58→18:47)
--- NOTE | 2018-07-22 20:34 | CP.PCM.PN ---
Subjective - Date & Time of Evaluation Date of Evaluation: 07/22/18 Time of Evaluation: 20:34 - Subjective Subjective: CHIEF COMPLAINTS TODAY : AFEBRILE, TODAY STILL C/O CHEST TIGHTNESS/AND DIFFICULTY BREATHING MOVING HIS BOWELS ROS. HEENT : N. Resp : +VE COUGH, wheezing ,pleuritic CP ,or hemoptysis Cardio : CHEST TIGHTNESS, NO CP, PND, orthopnea, palpitation GI : No abd.pain, n/v , NO GI bleeding . 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 Musculoskel : No joint swelling , Derm : No rash Psych : Normal affect. Ext : No swelling ,calf pain PE. Pt. is alert awake in no distress. V.S As noted in the chart Head ,ear nose,throat and eyes : Normal. Neck : Supple with normal carotids. Lungs: -VE WHEEZE , IMPROVED AERATION Heart : S1 & S2 normal with S4. No murmur. Abd : Soft non tender with normal bowel sounds. Neuro : Moves all ext. with no localized deficit. Ext : +VE 1+ EDEMA with intact pulses.Non tender calves RT LE ULCERS GRANULATING WITH VITILIGO PATCHES. Derm : DIFFUSE GENERALIZED PLAQUE PSORIASIS LABS/RADIOLOGY: REVIEWED- IMPROVING CXR 07/22/18 -VE LOBAR PNEUMONIA URINE CULTURE +VE GPC < 10,000 ORGS /ML ASSESSMENT. GRAM -VE PNEUMONA ( RAOULTELLA -KLEIBSIELLA -ORNITHINOLYTICA ) ?UTI DECOMPENSATED CHF NON ISCHEMIC CARDIOMYOPATHY ALCOHOLIC ENCEPHALOPATHY / LIVER DISEASE GENERALIZED PLAQUE PSORIASIS. ILEUS/ ?SBO BY CT ABD/PELVIS GENERALIZED ANASARCA /PLAN : CONTINUE IV ABX ORDERED IV PRIMAXIN 500MG IVPB Q 8HRLY 07/15/18 REPEAT SPUTUM CULTURE-P IF -VE MAY DC ABX IV LASIX PER PMD . CONTINUE PULMONARY TOILET. Objective - Vital Signs/Intake and Output Vital Signs (last 24 hours): Temp Pulse Resp BP Pulse Ox 98.6 F 92 H 20 127/82 99 07/22/18 15:10 07/22/18 15:10 07/22/18 15:10 07/22/18 15:10 07/22/18 15:10 Intake and Output: 07/22/18 07/23/18 18:59 06:59 Output Total 750 Balance -750 - Medications Medications: Current Medications Acetaminophen (Tylenol 325mg Tab) 650 mg PO Q6 PRN PRN Reason: Fever >100.4 F Last Admin: 07/22/18 00:07 Dose: 650 mg Albuterol/Ipratropium (Duoneb 3 Mg/0.5 Mg (3 Ml) Ud) 3 ml INH RQ4 [facility] Last Admin: 07/22/18 19:49 Dose: 3 ml Fluocinonide (Lidex 0.05% Cream) 1 gm TOP BID [facility] Last Admin: 07/22/18 17:23 Dose: Not Given Folic Acid (Folic Acid) 1 mg PO DAILY [facility] Last Admin: 07/22/18 09:22 Dose: 1 mg Furosemide (Lasix) 20 mg IVP Q12 [facility] Last Admin: 07/22/18 09:19 Dose: 20 mg Gabapentin (Neurontin) 300 mg PO BID [facility] Last Admin: 07/22/18 17:20 Dose: 300 mg Imipenem/Cilastatin Sodium 500 (mg/ Sodium Chloride) 100 mls @ 100 mls/hr IVPB Q8 [facility]; Protocol Last Admin: 07/22/18 13:52 Dose: 100 mls/hr Insulin Human Regular (Novolin R) 0 unit SC ACHS [facility]; Protocol Last Admin: 07/22/18 17:19 Dose: Not Given Lactic Acid (Lac-Hydrin 12% Lotion (225 G)) 1 gm EXT DAILY [facility] Last Admin: 07/22/18 09:23 Dose: Not Given Lactulose (Enulose) 20 gm PO BID [facility] Last Admin: 07/22/18 17:20 Dose: Not Given Losartan Potassium (Cozaar) 50 mg PO DAILY [facility] Last Admin: 07/22/18 09:22 Dose: 50 mg Mupirocin (Bactroban 2% Nasal) 0.25 gm ORION BID [facility] Last Admin: 07/22/18 17:20 Dose: Not Given Nystatin (Nystatin Oral Susp) 5 ml PO QID [facility] Last Admin: 07/22/18 17:21 Dose: Not Given Pantoprazole Sodium (Protonix Ec Tab) 40 mg PO DAILY [facility] Last Admin: 07/22/18 09:22 Dose: 40 mg Promethazine HCl (Phenergan Syrup) 6.25 mg PO Q6 PRN PRN Reason: Cough Last Admin: 07/22/18 17:20 Dose: 6.25 mg Propranolol HCl (Inderal) 5 mg PO 0800,1400,2000 [facility] Last Admin: 07/22/18 20:27 Dose: 5 mg Saccharomyces Boulardii (Florastor) 250 mg PO HS [facility] Last Admin: 07/21/18 21:05 Dose: 250 mg Thiamine HCl (Vitamin B1 Tab) 100 mg PO DAILY [facility] Last Admin: 07/22/18 09:22 Dose: 100 mg - Labs Labs: 07/22/18 07:09 07/22/18 07:09 PT 16.6 SECONDS (9.7-12.2) H 07/07/18 20:06 INR 1.5 07/07/18 20:06 APTT 37 SECONDS (21-34) H 07/07/18 20:06
[2018-07-22] MEDS: Saccharomyces Boulardi 250 mg Cap PO SCH (21:34)
[2018-07-23] MEDS: Albuterol-Ipratrop 3 mg / 0.5 (3 ml) UD INH SCH ×6 (04:00→23:32)
[2018-07-23] MEDS: (Novolin R) Insulin Human Regular 100 units/ml vial SC SCH ×4 (07:30→21:07)
[2018-07-23] MEDS: Propranolol 5 mg Tab PO SCH ×3 (09:00→19:02)
[2018-07-23] MEDS: Ammonium Lactate 12% Lotion (225 g) EXT SCH (09:06)
[2018-07-23] MEDS: Mupirocin 2% Ointment (NASAL) NAS SCH ×2 (09:07→17:10)
[2018-07-23] MEDS: Pantoprazole 40 mg EC Tab PO SCH (09:09)
[2018-07-23] MEDS: Promethazine 6.25 MG/5 ML CUP PO PRN (09:10)
[2018-07-23] MEDS: Nystatin 100,000 Units/ml Oral Susp 5 ml UD PO SCH ×4 (10:01→21:07)
[2018-07-23] MEDS: Saccharomyces Boulardi 250 mg Cap PO SCH (21:06)
--- NOTE | 2018-07-23 23:03 | CP.PCM.PN ---
Subjective - Date & Time of Evaluation Date of Evaluation: 07/23/18 Time of Evaluation: 23:03 - Subjective Subjective: CHIEF COMPLAINTS TODAY : AFEBRILE, RESTING C/O CHEST TIGHTNESS ROS. HEENT : N. Resp : +VE COUGH, NO wheezing ,pleuritic CP ,or hemoptysis Cardio : CHEST TIGHTNESS, NO CP, PND, orthopnea, palpitation GI : No abd.pain, n/v , NO GI bleeding . 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 Musculoskel : No joint swelling , Derm : No rash Psych : Normal affect. Ext : No swelling ,calf pain PE. Pt. is alert awake in no distress. V.S As noted in the chart Head ,ear nose,throat and eyes : Normal. Neck : Supple with normal carotids. Lungs: -VE WHEEZE , IMPROVED AERATION Heart : S1 & S2 normal with S4. No murmur. Abd : Soft non tender with normal bowel sounds. Neuro : Moves all ext. with no localized deficit. Ext : +VE 1+ EDEMA with intact pulses.Non tender calves RT LE ULCERS GRANULATING WITH VITILIGO PATCHES. Derm : DIFFUSE GENERALIZED PLAQUE PSORIASIS LABS/RADIOLOGY: REVIEWED- IMPROVING SPUTUM CULTURE --P CXR 07/22/18 -VE LOBAR PNEUMONIA URINE CULTURE +VE GPC < 10,000 ORGS /ML ASSESSMENT. GRAM -VE PNEUMONA ( RAOULTELLA -KLEIBSIELLA -ORNITHINOLYTICA ) ?UTI DECOMPENSATED CHF NON ISCHEMIC CARDIOMYOPATHY ALCOHOLIC ENCEPHALOPATHY / LIVER DISEASE GENERALIZED PLAQUE PSORIASIS. ILEUS/ ?SBO BY CT ABD/PELVIS GENERALIZED ANASARCA /PLAN : CONTINUE IV ABX ORDERED IV PRIMAXIN 500MG IVPB Q 8HRLY 07/15/18 -DAY 9 REPEAT SPUTUM CULTURE-P IF -VE MAY DC ABX DIURESIS PER PMD CONTINUE PULMONARY TOILET. Objective - Vital Signs/Intake and Output Vital Signs (last 24 hours): Temp Pulse Resp BP Pulse Ox 97.8 F 77 20 126/80 99 07/23/18 15:00 07/23/18 15:00 07/23/18 15:00 07/23/18 21:06 07/23/18 15:00 Intake and Output: 07/23/18 07/24/18 18:59 06:59 Intake Total 650 550 Balance 650 550 - Medications Medications: Current Medications Acetaminophen (Tylenol 325mg Tab) 650 mg PO Q6 PRN PRN Reason: Fever >100.4 F Last Admin: 07/23/18 12:27 Dose: 650 mg Albuterol/Ipratropium (Duoneb 3 Mg/0.5 Mg (3 Ml) Ud) 3 ml INH RQ4 [facility] Last Admin: 07/23/18 19:38 Dose: 3 ml Fluocinonide (Lidex 0.05% Cream) 1 gm TOP BID [facility] Last Admin: 07/23/18 17:08 Dose: 1 appl Folic Acid (Folic Acid) 1 mg PO DAILY [facility] Last Admin: 07/23/18 09:10 Dose: 1 mg Furosemide (Lasix) 20 mg IVP Q12 [facility] Last Admin: 07/23/18 21:06 Dose: 20 mg Gabapentin (Neurontin) 300 mg PO BID [facility] Last Admin: 07/23/18 17:08 Dose: 300 mg Imipenem/Cilastatin Sodium 500 (mg/ Sodium Chloride) 100 mls @ 100 mls/hr IVPB Q8H [facility]; Protocol Last Admin: 07/23/18 21:05 Dose: 100 mls/hr Insulin Human Regular (Novolin R) 0 unit SC ACHS [facility]; Protocol Last Admin: 07/23/18 21:07 Dose: Not Given Lactic Acid (Lac-Hydrin 12% Lotion (225 G)) 1 gm EXT DAILY [facility] Last Admin: 07/23/18 09:06 Dose: Not Given Lactulose (Enulose) 20 gm PO BID [facility] Last Admin: 07/23/18 17:10 Dose: Not Given Losartan Potassium (Cozaar) 50 mg PO DAILY [facility] Last Admin: 07/23/18 10:00 Dose: 50 mg Mupirocin (Bactroban 2% Nasal) 0.25 gm ORION BID [facility] Last Admin: 07/23/18 17:10 Dose: Not Given Nystatin (Nystatin Oral Susp) 5 ml PO QID [facility] Last Admin: 07/23/18 21:07 Dose: Not Given Pantoprazole Sodium (Protonix Ec Tab) 40 mg PO DAILY [facility] Last Admin: 07/23/18 09:09 Dose: 40 mg Promethazine HCl (Phenergan Syrup) 6.25 mg PO Q6 PRN PRN Reason: Cough Last Admin: 07/23/18 09:10 Dose: 6.25 mg Propranolol HCl (Inderal) 5 mg PO 0800,1400,2000 [facility] Last Admin: 07/23/18 19:02 Dose: 5 mg Saccharomyces Boulardii (Florastor) 250 mg PO HS [facility] Last Admin: 07/23/18 21:06 Dose: 250 mg Thiamine HCl (Vitamin B1 Tab) 100 mg PO DAILY [facility] Last Admin: 07/23/18 09:10 Dose: 100 mg - Labs Labs: 07/22/18 07:09 07/22/18 07:09 PT 16.6 SECONDS (9.7-12.2) H 07/07/18 20:06 INR 1.5 07/07/18 20:06 APTT 37 SECONDS (21-34) H 07/07/18 20:06
[2018-07-24] MEDS: Albuterol-Ipratrop 3 mg / 0.5 (3 ml) UD INH SCH ×5 (03:13→20:56)
[2018-07-24] MEDS: (Novolin R) Insulin Human Regular 100 units/ml vial SC SCH ×5 (07:30→21:42)
[2018-07-24] MEDS: Propranolol 5 mg Tab PO SCH ×3 (08:06→19:02)
[2018-07-24] MEDS: Mupirocin 2% Ointment (NASAL) NAS SCH ×2 (09:16→17:06)
[2018-07-24] MEDS: Nystatin 100,000 Units/ml Oral Susp 5 ml UD PO SCH ×4 (09:17→21:42)
[2018-07-24] MEDS: Pantoprazole 40 mg EC Tab PO SCH (09:18)
[2018-07-24] MEDS: Ammonium Lactate 12% Lotion (225 g) EXT SCH (10:00)
--- NOTE | 2018-07-24 12:28 | CP.PCM.PN ---
Subjective - Date & Time of Evaluation Date of Evaluation: 07/23/18 Time of Evaluation: 12:28 - Subjective Subjective: Patient still continues to have a cough. Also started having some mild headache. Upon taking deep respiration worsening cough noted. Mostly dry. Occasional scanty mucus noted On examination: Vital signs are stable. Chest good air entry. Heart sounds are regular Abdomen soft extremities edema Patient is currently on multiple antibiotic. Labs and x-ray reviewed Assessment and recommendation: Admitted with the sepsis. 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 Likely pneumonia. We will continue the current treatment. And will follow the patient. Objective - Vital Signs/Intake and Output Vital Signs (last 24 hours): Temp Pulse Resp BP Pulse Ox 98.4 F 95 H 18 124/90 98 07/24/18 07:00 07/24/18 07:00 07/24/18 07:00 07/24/18 09:17 07/24/18 07:00 Intake and Output: 07/24/18 07/24/18 06:59 18:59 Intake Total 550 Balance 550 - Medications Medications: Current Medications Acetaminophen (Tylenol 325mg Tab) 650 mg PO Q6 PRN PRN Reason: Fever >100.4 F Last Admin: 07/24/18 11:41 Dose: 650 mg Albuterol/Ipratropium (Duoneb 3 Mg/0.5 Mg (3 Ml) Ud) 3 ml INH RQ4 [facility] Last Admin: 07/24/18 08:43 Dose: 3 ml Fluocinonide (Lidex 0.05% Cream) 1 gm TOP BID [facility] Last Admin: 07/24/18 09:23 Dose: 1 appl Folic Acid (Folic Acid) 1 mg PO DAILY [facility] Last Admin: 07/24/18 09:18 Dose: 1 mg Furosemide (Lasix) 20 mg IVP Q12 [facility] Last Admin: 07/24/18 09:17 Dose: 20 mg Gabapentin (Neurontin) 300 mg PO BID [facility] Last Admin: 07/24/18 09:18 Dose: 300 mg Imipenem/Cilastatin Sodium 500 (mg/ Sodium Chloride) 100 mls @ 100 mls/hr IVPB Q8H [facility]; Protocol Last Admin: 07/24/18 05:23 Dose: 100 mls/hr Insulin Human Regular (Novolin R) 0 unit SC ACHS [facility]; Protocol Last Admin: 07/24/18 07:30 Dose: Not Given Lactic Acid (Lac-Hydrin 12% Lotion (225 G)) 1 gm EXT DAILY [facility] Last Admin: 07/23/18 09:06 Dose: Not Given Lactulose (Enulose) 20 gm PO BID [facility] Last Admin: 07/24/18 09:16 Dose: Not Given Losartan Potassium (Cozaar) 50 mg PO DAILY [facility] Last Admin: 07/24/18 09:18 Dose: 50 mg Mupirocin (Bactroban 2% Nasal) 0.25 gm ORION BID [facility] Last Admin: 07/24/18 09:16 Dose: Not Given Nystatin (Nystatin Oral Susp) 5 ml PO QID [facility] Last Admin: 07/24/18 09:17 Dose: Not Given Pantoprazole Sodium (Protonix Ec Tab) 40 mg PO DAILY [facility] Last Admin: 07/24/18 09:18 Dose: 40 mg Promethazine HCl (Phenergan Syrup) 6.25 mg PO Q6 PRN PRN Reason: Cough Last Admin: 07/23/18 09:10 Dose: 6.25 mg Propranolol HCl (Inderal) 5 mg PO 0800,1400,2000 [facility] Last Admin: 07/24/18 08:06 Dose: 5 mg Saccharomyces Boulardii (Florastor) 250 mg PO HS [facility] Last Admin: 07/23/18 21:06 Dose: 250 mg Thiamine HCl (Vitamin B1 Tab) 100 mg PO DAILY [facility] Last Admin: 07/24/18 09:18 Dose: 100 mg - Labs Labs: 07/22/18 07:09 07/22/18 07:09 PT 16.6 SECONDS (9.7-12.2) H 07/07/18 20:06 INR 1.5 07/07/18 20:06 APTT 37 SECONDS (21-34) H 07/07/18 20:06
--- NOTE | 2018-07-24 12:31 | CP.PCM.PN ---
Subjective - Date & Time of Evaluation Date of Evaluation: 07/24/18 Time of Evaluation: 12:30 - Subjective Subjective: Patient today complaining of increasing headache especially on the right side of the head. Not associated with any nausea. No numbness tingling in the legs or weakness in the legs noted. But otherwise he is working, but complaining of increasing cough On examination: Blood pressure stable. Labs reviewed Assessment and recommendation: 42-year-old male with a liver disease. Hypertension. Diabetes. Encephalopathyr I advised the patient for CAT scan of the head and will follow the patient Objective - Vital Signs/Intake and Output Vital Signs (last 24 hours): Temp Pulse Resp BP Pulse Ox 98.4 F 95 H 18 124/90 98 07/24/18 07:00 07/24/18 07:00 07/24/18 07:00 07/24/18 09:17 07/24/18 07:00 Intake and Output: 07/24/18 07/24/18 06:59 18:59 Intake Total 550 Balance 550 - Medications Medications: Current Medications Acetaminophen (Tylenol 325mg Tab) 650 mg PO Q6 PRN PRN Reason: Fever >100.4 F Last Admin: 07/24/18 11:41 Dose: 650 mg Albuterol/Ipratropium (Duoneb 3 Mg/0.5 Mg (3 Ml) Ud) 3 ml INH RQ4 [facility] Last Admin: 07/24/18 08:43 Dose: 3 ml Fluocinonide (Lidex 0.05% Cream) 1 gm TOP BID [facility] Last Admin: 07/24/18 09:23 Dose: 1 appl Folic Acid (Folic Acid) 1 mg PO DAILY [facility] Last Admin: 07/24/18 09:18 Dose: 1 mg Furosemide (Lasix) 20 mg IVP Q12 [facility] Last Admin: 07/24/18 09:17 Dose: 20 mg Gabapentin (Neurontin) 300 mg PO BID [facility] Last Admin: 07/24/18 09:18 Dose: 300 mg Imipenem/Cilastatin Sodium 500 (mg/ Sodium Chloride) 100 mls @ 100 mls/hr IVPB Q8H [facility]; Protocol Last Admin: 07/24/18 05:23 Dose: 100 mls/hr Insulin Human Regular (Novolin R) 0 unit SC ACHS [facility]; Protocol Last Admin: 07/24/18 07:30 Dose: Not Given Lactic Acid (Lac-Hydrin 12% Lotion (225 G)) 1 gm EXT DAILY [facility] Last Admin: 07/23/18 09:06 Dose: Not Given Lactulose (Enulose) 20 gm PO BID [facility] Last Admin: 07/24/18 09:16 Dose: Not Given Losartan Potassium (Cozaar) 50 mg PO DAILY [facility] Last Admin: 07/24/18 09:18 Dose: 50 mg Mupirocin (Bactroban 2% Nasal) 0.25 gm ORION BID [facility] Last Admin: 07/24/18 09:16 Dose: Not Given Nystatin (Nystatin Oral Susp) 5 ml PO QID [facility] Last Admin: 07/24/18 09:17 Dose: Not Given Pantoprazole Sodium (Protonix Ec Tab) 40 mg PO DAILY [facility] Last Admin: 07/24/18 09:18 Dose: 40 mg Promethazine HCl (Phenergan Syrup) 6.25 mg PO Q6 PRN PRN Reason: Cough Last Admin: 07/23/18 09:10 Dose: 6.25 mg Propranolol HCl (Inderal) 5 mg PO 0800,1400,2000 [facility] Last Admin: 07/24/18 08:06 Dose: 5 mg Saccharomyces Boulardii (Florastor) 250 mg PO HS [facility] Last Admin: 07/23/18 21:06 Dose: 250 mg Thiamine HCl (Vitamin B1 Tab) 100 mg PO DAILY [facility] Last Admin: 07/24/18 09:18 Dose: 100 mg - Labs Labs: 07/22/18 07:09 07/22/18 07:09 PT 16.6 SECONDS (9.7-12.2) H 07/07/18 20:06 INR 1.5 07/07/18 20:06 APTT 37 SECONDS (21-34) H 07/07/18 20:06
--- NOTE | 2018-07-24 14:08 | CT ---
Date of service: 07/24/2018 PROCEDURE: CT HEAD WITHOUT CONTRAST. HISTORY: headache COMPARISON: None available. TECHNIQUE: Axial computed tomography images were obtained through the head/brain without intravenous contrast. Radiation dose: Total exam DLP = 1119.87 mGy-cm. This CT exam was performed using one or more of the following dose reduction techniques: Automated exposure control, adjustment of the mA and/or kV according to patient size, and/or use of iterative reconstruction technique. FINDINGS: HEMORRHAGE: No intracranial hemorrhage. BRAIN: No mass effect or edema. Mild atrophy slightly greater than expected patient age. Minimal periventricular white matter lucency consistent with microvascular white matter ischemic change. No evidence of acute infarct. VENTRICLES: Unremarkable. No hydrocephalus. CALVARIUM: Unremarkable. PARANASAL SINUSES: Unremarkable as visualized. No significant inflammatory changes. MASTOID AIR CELLS: Unremarkable as visualized. No inflammatory changes. OTHER FINDINGS: None. IMPRESSION: No intracranial mass, hemorrhage or evidence of acute infarct. Mild atrophy slightly greater than expected for patient age. Minimal chronic periventricular white matter ischemic change.
[2018-07-24] MEDS: Saccharomyces Boulardi 250 mg Cap PO SCH (21:43)
[2018-07-24] MEDS: Promethazine 6.25 MG/5 ML CUP PO PRN (22:20)
[2018-07-25] MEDS: Albuterol-Ipratrop 3 mg / 0.5 (3 ml) UD INH SCH ×6 (00:49→19:26)
[2018-07-25] MEDS: Promethazine 6.25 MG/5 ML CUP PO PRN ×3 (05:22→22:27)
[2018-07-25] MEDS: (Novolin R) Insulin Human Regular 100 units/ml vial SC SCH ×4 (07:30→21:46)
[2018-07-25] MEDS: Propranolol 5 mg Tab PO SCH ×3 (08:00→19:28)
[2018-07-25] MEDS: Pantoprazole 40 mg EC Tab PO SCH (09:33)
[2018-07-25] MEDS: Ammonium Lactate 12% Lotion (225 g) EXT SCH (09:34)
[2018-07-25] MEDS: Mupirocin 2% Ointment (NASAL) NAS SCH ×2 (09:34→17:22)
[2018-07-25] MEDS: Nystatin 100,000 Units/ml Oral Susp 5 ml UD PO SCH ×4 (09:36→21:35)
[2018-07-25 16:31] VITALS: RESP 20
--- NOTE | 2018-07-25 18:56 | CP.PCM.PN ---
Subjective - Date & Time of Evaluation Date of Evaluation: 07/25/18 Time of Evaluation: 18:56 - Subjective Subjective: AFEBRILE, LYING COMFORTABLY IN BED. C/O ROOM SPINNING AND ACHY ALLOVER PER RN WALKS TO THE BATHROOM HIMSELF LABS SPUTUM -N ELISEO URINE CULTURE REPEAT -VE GROWTH. CT HEAD NOTED -VE HGE -VE INFARCT, ATROPHY (SEE REPORT ) Objective - Vital Signs/Intake and Output Vital Signs (last 24 hours): Temp Pulse Resp BP Pulse Ox 97.4 F L 79 20 144/95 H 100 07/25/18 15:30 07/25/18 15:30 07/25/18 15:30 07/25/18 15:30 07/25/18 15:30 Intake and Output: 07/25/18 07/25/18 06:59 18:59 Intake Total 550 700 Output Total 325 Balance 225 700 - Medications Medications: Current Medications Acetaminophen (Tylenol 325mg Tab) 650 mg PO Q6 PRN PRN Reason: Fever >100.4 F Last Admin: 07/24/18 22:21 Dose: 650 mg Albuterol/Ipratropium (Duoneb 3 Mg/0.5 Mg (3 Ml) Ud) 3 ml INH RQ4 [facility] Last Admin: 07/25/18 16:03 Dose: 3 ml Ciprofloxacin (Cipro) 500 mg PO BID [facility]; Protocol Last Admin: 07/25/18 17:30 Dose: 500 mg Fluocinonide (Lidex 0.05% Cream) 1 gm TOP BID [facility] Last Admin: 07/25/18 17:23 Dose: 1 appl Folic Acid (Folic Acid) 1 mg PO DAILY [facility] Last Admin: 07/25/18 09:33 Dose: 1 mg Furosemide (Lasix) 40 mg PO DAILY [facility] Last Admin: 07/25/18 09:37 Dose: 40 mg Gabapentin (Neurontin) 300 mg PO BID [facility] Last Admin: 07/25/18 17:24 Dose: 300 mg Insulin Human Regular (Novolin R) 0 unit SC [facility]; Protocol Last Admin: 07/25/18 16:37 Dose: Not Given Lactic Acid (Lac-Hydrin 12% Lotion (225 G)) 1 gm EXT DAILY [facility] Last Admin: 07/25/18 09:34 Dose: Not Given Lactulose (Enulose) 20 gm PO BID [facility] Last Admin: 07/25/18 17:00 Dose: Not Given Losartan Potassium (Cozaar) 50 mg PO DAILY [facility] Last Admin: 07/25/18 09:34 Dose: 50 mg Mupirocin (Bactroban 2% Nasal) 0.25 gm ORION BID [facility] Last Admin: 07/25/18 17:22 Dose: Not Given Nystatin (Nystatin Oral Susp) 5 ml PO QID [facility] Last Admin: 07/25/18 17:24 Dose: Not Given Pantoprazole Sodium (Protonix Ec Tab) 40 mg PO DAILY [facility] Last Admin: 07/25/18 09:33 Dose: 40 mg Promethazine HCl (Phenergan Syrup) 6.25 mg PO Q6 PRN PRN Reason: Cough Last Admin: 07/25/18 13:03 Dose: 6.25 mg Propranolol HCl (Inderal) 5 mg PO 0800,1400,2000 [facility] Last Admin: 07/25/18 13:01 Dose: 5 mg Saccharomyces Boulardii (Florastor) 250 mg PO HS [facility] Last Admin: 07/24/18 21:43 Dose: 250 mg Thiamine HCl (Vitamin B1 Tab) 100 mg PO DAILY [facility] Last Admin: 07/25/18 09:33 Dose: 100 mg - Labs Labs: 07/22/18 07:09 07/22/18 07:09 PT 16.6 SECONDS (9.7-12.2) H 07/07/18 20:06 INR 1.5 07/07/18 20:06 APTT 37 SECONDS (21-34) H 07/07/18 20:06 - Constitutional Appears: No Acute Distress - Head Exam Head Exam: NORMAL INSPECTION - Eye Exam Eye Exam: EOMI, PERRL - ENT Exam ENT Exam: Normal Oropharynx - Neck Exam Neck Exam: Normal Inspection. absent: Meningismus - Respiratory Exam Respiratory Exam: Decreased Breath Sounds, NORMAL BREATHING PATTERN - Cardiovascular Exam Cardiovascular Exam: REGULAR RHYTHM, +S1, +S2 - GI/Abdominal Exam GI & Abdominal Exam: Soft, Normal Bowel Sounds. absent: Tenderness - Extremities Exam Extremities Exam: Normal Capillary Refill (ULCERS LEGS HEALED). absent: Calf Tenderness, Pedal Edema - Neurological Exam Neurological Exam: Awake, CN II-XII Intact, Normal Gait, Oriented x3, Reflexes Normal - Psychiatric Exam Psychiatric exam: Normal Mood - Skin Skin Exam: Normal Color, Warm Assessment and Plan - Assessment and Plan (Free Text) Plan: /PLAN : D/C IV PRIMAXIN 500MG IVPB Q 8HRLY 07/15/18 - 07/25/18 PO CIPRO 500MG BID X 5DAYS 07/25/18- 07/29/18 DISCUSSED WITH PMD /AND STAFF CONTINUE PULMONARY TOILET. RECALL IF NEEDED
[2018-07-25] MEDS: Saccharomyces Boulardi 250 mg Cap PO SCH (21:34)
[2018-07-26] MEDS: Albuterol-Ipratrop 3 mg / 0.5 (3 ml) UD INH SCH ×5 (04:00→16:42)
--- NOTE | 2018-07-26 06:26 | CP.PCM.PN ---
Subjective - Date & Time of Evaluation Date of Evaluation: 07/25/18 Time of Evaluation: 06:25 - Subjective Subjective: Patient is currently feeling well, no chest pain or shortness of breath, cough is still present, but better. Seen by infectious disease. Cleared for discharge. Clinically he is feeling well. We will possibly discharge him in the morning. Objective - Vital Signs/Intake and Output Vital Signs (last 24 hours): Temp Pulse Resp BP Pulse Ox 97.6 F 76 20 159/71 H 100 07/25/18 23:00 07/25/18 23:00 07/25/18 23:00 07/25/18 23:00 07/25/18 23:00 Intake and Output: 07/25/18 07/26/18 18:59 06:59 Intake Total 700 600 Balance 700 600 - Medications Medications: Current Medications Acetaminophen (Tylenol 325mg Tab) 650 mg PO Q6 PRN PRN Reason: Fever >100.4 F Last Admin: 07/25/18 22:27 Dose: 650 mg Albuterol/Ipratropium (Duoneb 3 Mg/0.5 Mg (3 Ml) Ud) 3 ml INH RQ4 [facility] Last Admin: 07/26/18 04:00 Dose: 3 ml Ciprofloxacin (Cipro) 500 mg PO BID [facility]; Protocol Last Admin: 07/25/18 17:30 Dose: 500 mg Fluocinonide (Lidex 0.05% Cream) 1 gm TOP BID [facility] Last Admin: 07/25/18 17:23 Dose: 1 appl Folic Acid (Folic Acid) 1 mg PO DAILY [facility] Last Admin: 07/25/18 09:33 Dose: 1 mg Furosemide (Lasix) 40 mg PO DAILY [facility] Last Admin: 07/25/18 09:37 Dose: 40 mg Gabapentin (Neurontin) 300 mg PO BID [facility] Last Admin: 07/25/18 17:24 Dose: 300 mg Insulin Human Regular (Novolin R) 0 unit SC [facility]CLUDE 234 B[facility]S [facility]; Protocol Last Admin: 07/25/18 21:46 Dose: Not Given Lactic Acid (Lac-Hydrin 12% Lotion (225 G)) 1 gm EXT DAILY [facility] Last Admin: 07/25/18 09:34 Dose: Not Given Lactulose (Enulose) 20 gm PO BID [facility] Last Admin: 07/25/18 17:00 Dose: Not Given Losartan Potassium (Cozaar) 50 mg PO DAILY [facility] Last Admin: 07/25/18 09:34 Dose: 50 mg Mupirocin (Bactroban 2% Nasal) 0.25 gm ORION BID [facility] Last Admin: 07/25/18 17:22 Dose: Not Given Nystatin (Nystatin Oral Susp) 5 ml PO QID [facility] Last Admin: 07/25/18 21:35 Dose: Not Given Pantoprazole Sodium (Protonix Ec Tab) 40 mg PO DAILY [facility] Last Admin: 07/25/18 09:33 Dose: 40 mg Promethazine HCl (Phenergan Syrup) 6.25 mg PO Q6 PRN PRN Reason: Cough Last Admin: 07/25/18 22:27 Dose: 6.25 mg Propranolol HCl (Inderal) 5 mg PO 0800,1400,2000 [facility] Last Admin: 07/25/18 19:28 Dose: 5 mg Saccharomyces Boulardii (Florastor) 250 mg PO HS [facility] Last Admin: 07/25/18 21:34 Dose: 250 mg Thiamine HCl (Vitamin B1 Tab) 100 mg PO DAILY [facility] Last Admin: 07/25/18 09:33 Dose: 100 mg - Labs Labs: 07/22/18 07:09 07/22/18 07:09 PT 16.6 SECONDS (9.7-12.2) H 07/07/18 20:06 INR 1.5 07/07/18 20:06 APTT 37 SECONDS (21-34) H 07/07/18 20:06
--- NOTE | 2018-07-26 06:28 | CP.PCM.DIS ---
Provider - Provider Date of Admission: 07/07/18 21:37 Attending physician: Damaris Edwards MD Consults: 07/08/18 00:54 Inpatient [facility] [employer] Core Measures Referral Routine Comment: Physician Instructions: Reason For Exam: CHF 07/08/18 03:51 Nursing Referral for Wound Care Routine Comment: Physician Instructions: Reason For Exam: Generalized Psoriasis .old scattered wounds R leg 07/16/18 15:05 Infectious Disease Consult Routine Comment: Consulting Provider: Linda Smith Consulting Physician: Linda Smith Reason for Consult: sepsis Time Spent in preparation of Discharge (in minutes): 45 Hospital Course - Lab Results Lab Results: Micro Results 07/22/18 06:08 Sputum Gram Stain - Final 07/22/18 06:08 Sputum Sputum Culture - Final NORMAL ORAL ELISEO 07/14/18 11:00 Blood Blood Culture - Final NO GROWTH AFTER 5 DAYS 07/14/18 11:00 Blood Gram Stain - Final TEST NOT PERFORMED 07/15/18 22:49 Urine Random Urine Culture - Final No Growth (<1,000 CFU/ML) 07/14/18 16:41 Sputum Gram Stain - Final 07/14/18 16:41 Sputum Sputum Culture - Final Raoultella Ornithinolytica 07/07/18 21:15 Blood Blood Culture - Final NO GROWTH AFTER 5 DAYS 07/07/18 21:15 Blood Gram Stain - Final TEST NOT PERFORMED 07/07/18 21:20 Blood Blood Culture - Final NO GROWTH AFTER 5 DAYS 07/07/18 21:20 Blood Gram Stain - Final TEST NOT PERFORMED 07/11/18 08:08 Urine,Clean Catch Urine Culture - Final Gram Positive Cocci Most Recent Lab Values WBC 6.9 K/uL (4.8-10.8) 07/22/18 07:09 RBC 3.58 Mil/uL (4.40-5.90) L 07/22/18 07:09 Hgb 9.8 g/dL (12.0-18.0) L 07/22/18 07:09 Hct 29.6 % (35.0-51.0) L 07/22/18 07:09 MCV 82.8 fL (80.0-94.0) 07/22/18 07:09 MCH 27.4 pg (27.0-31.0) 07/22/18 07:09 MCHC 33.1 g/dL (33.0-37.0) 07/22/18 07:09 RDW 22.8 % (11.5-14.5) H 07/22/18 07:09 Plt Count 119 K/uL (130-400) L 07/22/18 07:09 MPV 8.4 fL (7.2-11.7) 07/22/18 07:09 Neut % (Auto) 60.1 % (50.0-75.0) 07/22/18 07:09 Lymph % (Auto) 19.8 % (20.0-40.0) L 07/22/18 07:09 Levy % (Auto) 11.9 % (0.0-10.0) H 07/22/18 07:09 Eos % (Auto) 7.7 % (0.0-4.0) H 07/22/18 07:09 Baso % (Auto) 0.5 % (0.0-2.0) 07/22/18 07:09 Neut # (Auto) 4.2 K/uL (1.8-7.0) 07/22/18 07:09 Lymph # (Auto) 1.4 K/uL (1.0-4.3) 07/22/18 07:09 Levy # (Auto) 0.8 K/uL (0.0-0.8) 07/22/18 07:09 Eos # (Auto) 0.5 K/uL (0.0-0.7) 07/22/18 07:09 Baso # (Auto) 0.0 K/uL (0.0-0.2) 07/22/18 07:09 Neutrophils % (Manual) 86 % (50-75) H 07/16/18 06:17 Band Neutrophils % 5 % (0-2) H 07/16/18 06:17 Lymphocytes % (Manual) 4 % (20-40) L 07/16/18 06:17 Monocytes % (Manual) 5 % (0-10) 07/16/18 06:17 Differential Comment 07/22/18 07:09 Hypersegmented Polys Present 07/11/18 20:10 Smudge Cells Present 07/11/18 20:10 Platelet Estimate Normal (NORMAL) 07/16/18 06:17 Large Platelets Present 07/16/18 06:17 Polychromasia Slight 07/16/18 06:17 Poikilocytosis (manual Slight 07/16/18 06:17 Anisocytosis (manual) Moderate 07/16/18 06:17 Spherocytes Slight 07/11/18 20:10 Tear Drop Cells Slight 07/11/18 20:10 Ovalocytes Slight 07/16/18 06:17 [place] Cells Slight 07/16/18 06:17 Schistocytes Slight 07/16/18 06:17 PT 16.6 SECONDS (9.7-12.2) H 07/07/18 20:06 INR 1.5 07/07/18 20:06 APTT 37 SECONDS (21-34) H 07/07/18 20:06 pO2 73 mm/Hg (30-55) H 07/15/18 10:55 VBG pH 7.46 (7.32-7.43) H 07/15/18 10:55 VBG pCO2 29 mmHg (40-60) L 07/15/18 10:55 VBG HCO3 23.2 mmol/L 07/15/18 10:55 VBG Total CO2 21.5 mmol/L (22-28) L 07/15/18 10:55 VBG O2 Sat (Calc) 97.1 % (40-65) H 07/15/18 10:55 VBG Base Excess -2.1 mmol/L (0.0-2.0) L 07/15/18 10:55 VBG Potassium 4.3 mmol/L (3.6-5.2) 07/15/18 10:55 Sodium 131.0 mmol/l (132-148) L 07/15/18 10:55 Chloride 104.0 mmol/L (98-107) 07/15/18 10:55 Glucose 92 mg/dl (75-110) 07/15/18 10:55 Lactate 1.7 mmol/L (0.7-2.1) 07/15/18 10:55 Sodium 129 mmol/L (132-148) L 07/22/18 07:09 Potassium 4.5 mmol/L (3.6-5.2) 07/22/18 07:09 Chloride 102 mmol/L (98-107) 07/22/18 07:09 Carbon Dioxide 21 mmol/L (22-30) L 07/22/18 07:09 Anion Gap 11 (10-20) 07/22/18 07:09 BUN 18 mg/dL (9-20) 07/22/18 07:09 Creatinine 1.1 mg/dL (0.8-1.5) 07/22/18 07:09 Est GFR ( Amer) > 60 07/22/18 07:09 Est GFR (Non-Af Amer) > 60 07/22/18 07:09 POC Glucose (mg/dL) 140 mg/dL (65-110) H 07/25/18 16:12 Random Glucose 97 mg/dL (75-110) 07/22/18 07:09 Calcium 7.3 mg/dl (8.6-10.4) L 07/22/18 07:09 Phosphorus 2.7 mg/dL (2.5-4.5) 07/22/18 07:09 Magnesium 1.3 mg/dL (1.6-2.3) L 07/22/18 07:09 Total Bilirubin 0.8 mg/dL (0.2-1.3) 07/22/18 07:09 AST 48 U/L (17-59) 07/22/18 07:09 ALT 31 U/L (21-72) 07/22/18 07:09 Alkaline Phosphatase 117 U/L (38-126) 07/22/18 07:09 Ammonia 71 umol/L (9-33) H D 07/16/18 06:17 Troponin I 0.0580 ng/mL (0.00-0.120) 07/07/18 21:27 NT-Pro-B Natriuret Pep 5660 pg/mL (0-450) H 07/07/18 21:27 Total Protein 5.2 g/dL (6.3-8.3) L 07/22/18 07:09 Albumin 2.0 g/dL (3.5-5.0) L 07/22/18 07:09 Globulin 3.1 gm/dL (2.2-3.9) 07/22/18 07:09 Albumin/Globulin Ratio 0.6 (1.0-2.1) L 07/22/18 07:09 Venous Blood Potassium 4.3 mmol/L (3.6-5.2) 07/15/18 10:55 Urine Color Yellow (YELLOW) 07/15/18 22:49 Urine Clarity Clear (Clear) 07/15/18 22:49 Urine pH 7.0 (5.0-8.0) 07/15/18 22:49 Ur Specific [place] 1.013 (1.003-1.030) 07/15/18 22:49 Urine Protein 1+ mg/dL (NEGATIVE) H 07/15/18 22:49 Urine Glucose (UA) Normal mg/dL (Normal) 07/15/18 22:49 Urine Ketones Negative mg/dL (NEGATIVE) 07/15/18 22:49 Urine Blood 1+ (NEGATIVE) H 07/15/18 22:49 Urine Nitrate Negative (NEGATIVE) 07/15/18 22:49 Urine Bilirubin Negative (NEGATIVE) 07/15/18 22:49 Urine Urobilinogen Normal mg/dL (0.2-1.0) 07/15/18 22:49 Ur Leukocyte Esterase Neg Lexie/uL (Negative) 07/15/18 22:49 Urine WBC (Auto) 2 /hpf (0-5) 07/15/18 22:49 Urine RBC (Auto) 24 /hpf (0-3) H 07/15/18 22:49 Ur Squamous Epith Cells < 1 /hpf (0-5) 07/14/18 16:41 Urine Bacteria Occ (<OCC) H 07/15/18 22:49 Vancomycin Trough 12.2 ug/mL (5.0-10.0) H 07/21/18 06:38 Urine Opiates Screen Negative (NEGATIVE) 07/07/18 20:26 Urine Methadone Screen Negative (NEGATIVE) 07/07/18 20:26 Ur Barbiturates Screen Negative (NEGATIVE) 07/07/18 20:26 Ur Phencyclidine Scrn Negative (NEGATIVE) 07/07/18 20:26 Ur Amphetamines Screen Negative (NEGATIVE) 07/07/18 20:26 U Benzodiazepines Scrn Negative (NEGATIVE) 07/07/18 20:26 U Oth Cocaine Metabols Negative (NEGATIVE) 07/07/18 20:26 U Cannabinoids Screen Negative (NEGATIVE) 07/07/18 20:26 Alcohol, Quantitative < 10 mg/dl (0-10) 07/07/18 21:27 Influenza Typ A,B (EIA) Negative for flu a/b (NEGATIVE) 07/11/18 20:11 - Hospital Course Hospital Course: Course in the hospital: Chief complaints: Cough, shortness of breath and leg swelling. HPI: 43-year-old male with a history of liver disease, diabetes, psoriasis, psoriatic arthritis, recurrent sepsis and recurrent skin infections, alcoholic liver disease, liver cirrhosis brought in by the family member today because of the worsening leg swelling, leg ulcers and leaking skin changes in the legs bilaterally. Patient came to the emergency room with increasing leg swelling. Not feeling well. He was also complaining of shortness of breath. Patient denied any chest pain. Mild cough noted. Mostly dry. He was also complaining of some body pain Patient in the past has hospitalized multiple times with a chronic leg ulcer, sepsis and septic shock. Patient also has a significant skin changes secondary to psoriasis In the past patient had a multiple skin ulcers, excoriation of the skin, psoriatic skin changes noted. But now patient had blisterlike skin lesions on the right leg, broke and started having diffuse skin ulcers in the lower extremity on the right leg and also some on the left leg noted. Some of the skin lesions foul-smelling, with some discharge present. he is having some hard time in walking. Patient also has diabetes, not controlled well recently PMHx: Diabetes, hypertension, chronic liver disease, alcoholic liver disease, va riceal PSHx: history of endoscopy/colonoscopy Allergies: NKDA Family hx: Father: history of heart transplant; Mother: hypertension/diabetes Social Hx: past h/o alcohol consumption (~1pint of vodka per day), denies illicit drug use and former tobacco use Endoscopy hx: Endoscopy/Colonoscopy completed in 10/2015 - revealed grade 1 esophageal varices, LA Grade B Esophagitis, internal hemorrhoids, edema of the ascending colon ROS: headache noted. Bleeding gums noted. No chest pain. Coughing noted, Mucus production present. No fever. No abdominal distention. Patient has no diarrhea or bleeding. Bilateral leg swelling leg edema noted. No scrotal swelling noted Vital signs reviewed No neck vein distention noted Chest good air entry bilaterally, no wheezing or rales noted CVS regular heart sound, no murmur noted abdominal distention noted pedal edema noted Patient has a multiple geographic skin lesions in the right leg occupying the right middle one third of the leg in the anterior aspect, medial as well as lateral aspect and also some skin lesion in the proximal leg noted. There is also some blisterlike skin on the left side noted. [place]OWER [place] alert awake oriented -3, no functional neurological deficit patient is having tremor Psoriatic skin lesions labs reviewed Nonspecific. chest x-ray negative. Assessment and recommended 42-year-old male, hypertension, alcoholic liver disease, diabetes, psoriasis admitted with multiple skin ulcers, multipl medical problems including diabetes Hypertension Hypercholesteremia. Also patient has ae Chronic heart disease, congestive heart failure, systolic heart failure. 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 Patient possibly has a cardiomyopathy. Associate with the decompensated heart failure now. Systolic in character. Leg edema noted. Shortness of breath. Will continue the Lasix. Labs ordered. We will continue to monitor Course in the hospital: Patient was initially admitted to the hospital with acute decompensated systolic heart failure. Initially started on intravenous IV Lasix. But over the course of few days patient started developing fever and chills. Patient started on antibiotic as per infectious disease. Patient had a multiple sources of infection including the skin as well as the lungs. X-ray of the lungs on the CAT scan not showing evidence of pneumonia. Was also having gram-negative bacteria. Slowly his condition got better. His cough better Currently still on antibiotic. He will be discharged home, he will continue his home medications and ciprofloxacin. He will continue Cipro and Flagyl. Skin care was advised. Patient has a significant psoriatic skin lesions Assessment: Patient is a 48-year-old male with a history of alcoholism liver disease with diabetes hypertension ascites admitted to the hospital with acute decompensated systolic heart failure. Also associated with the severe sepsis from gram-negative bacteria. Improving will be discharging will follow the patient Discharge Exam - Head Exam Head Exam: NORMAL INSPECTION Discharge Plan - Follow Up Plan Condition: GOOD Disposition: HOME/ ROUTINE Instructions: Heart Healthy Diet, Heart Failure, Adult (DC) Referrals: Damaris Edwards MD [Staff Provider] -
[2018-07-26] MEDS: (Novolin R) Insulin Human Regular 100 units/ml vial SC SCH ×3 (08:00→17:31)
[2018-07-26] MEDS: Mupirocin 2% Ointment (NASAL) NAS SCH ×2 (10:05→18:58)
[2018-07-26] MEDS: Propranolol 5 mg Tab PO SCH ×2 (10:07→15:01)
[2018-07-26] MEDS: Pantoprazole 40 mg EC Tab PO SCH (10:08)
[2018-07-26] MEDS: Ammonium Lactate 12% Lotion (225 g) EXT SCH (10:11)
[2018-07-26] MEDS: Nystatin 100,000 Units/ml Oral Susp 5 ml UD PO SCH ×3 (10:13→18:59)
[2018-07-26] MEDS: Promethazine 6.25 MG/5 ML CUP PO PRN (15:41)
[2018-07-26 17:25] VITALS: BP 135/89; PULSE 83; TEMP 98.2; O2SAT 99
== END 2018-07-26 20:00 | disposition home or self-care (01) | DRG 871 ==
LOC: C.ER 17:16 → C.9E 21:37 → C.6T 22:21
PROVIDERS: ADMIT Internal Medicine; ATTEND Internal Medicine
DX: A41.50 Gram-negative sepsis, unspecified (principal); I85.11 Secondary esophageal varices with bleeding; J18.9 Pneumonia, unspecified organism; I50.23 Acute on chronic systolic (congestive) heart failure; K56.609 Unspecified intestinal obstruction, unspecified as to partial versus complete obstruction; N39.0 Urinary tract infection, site not specified; I42.6 Alcoholic cardiomyopathy; I11.0 Hypertensive heart disease with heart failure; R65.20 Severe sepsis without septic shock; E78.00 Pure hypercholesterolemia, unspecified; L40.50 Arthropathic psoriasis, unspecified; J45.909 Unspecified asthma, uncomplicated; G31.2 Degeneration of nervous system due to alcohol; F10.20 Alcohol dependence, uncomplicated; K70.40 Alcoholic hepatic failure without coma; K70.31 Alcoholic cirrhosis of liver with ascites; E11.622 Type 2 diabetes mellitus with other skin ulcer; L98.499 Non-pressure chronic ulcer of skin of other sites with unspecified severity; Z79.4 Long term (current) use of insulin; E11.65 Type 2 diabetes mellitus with hyperglycemia

== ENCOUNTER 2018-08-21 19:24 | Inpatient (IN) | payer MEDICARE, MEDICAID ==
[2018-08-21 19:26] VITALS: BMI 29.8
[2018-08-21 20:20] LABS: VENOUS BLOOD GAS BASE EXCESS -1.7 mmol/L (0.0-2.0); VENOUS BLOOD GAS PCO2 38 mmHg (40-60); VENOUS BLOOD GAS PO2 40 mm/Hg (30-55); VENOUS BLOOD PH 7.39 (7.32-7.43)
[2018-08-21 20:28] LABS: BASO % 0.5 % (0.0-2.0); EOS # 0.2 K/uL (0.0-0.7); EOS % 2.3 % (0.0-4.0); HEMOGLOBIN 10.8 g/dL (12.0-18.0); LYMPH # 2.8 K/uL (1.0-4.3); LYMPH % 37.9 % (20.0-40.0); MEAN CELL VOLUME 82.5 fL (80.0-94.0); MEAN CORPUSCULAR HEMOGLOBIN 27.2 pg (27.0-31.0); MEAN CORPUSCULAR HGB CONC 32.9 g/dL (33.0-37.0); MEAN PLATELET VOLUME 7.7 fL (7.2-11.7); MONO # 0.5 K/uL (0.0-0.8); MONO % 7.3 % (0.0-10.0); NEUT # 3.8 K/uL (1.8-7.0); NRBC % 0.2 % (0.0-2.0); RBC 3.97 Mil/uL (4.40-5.90); RED CELL DISTRIBUTION WIDTH 19.5 % (11.5-14.5); WHITE BLOOD COUNT 7.3 K/uL (4.8-10.8)
[2018-08-21] MEDS ORDERED: Piperacillin/Tazobact 3.375 gm 100 ML IVPB STA (20:34)
[2018-08-21 20:36] LABS: INR 1.2; PROTHROMBIN TIME 13.3 SECONDS (9.7-12.2)
[2018-08-21] MEDS ORDERED: Piperacillin/Tazobact 3.375 gm 100 ML IVPB ONE (20:42)
[2018-08-21] MEDS ORDERED: Vancomycin 1 GM 1 GM/250 ML BAG IVPB ONE (20:42)
[2018-08-21 20:46] LABS: ALBUMIN 3.7 g/dL (3.5-5.0); ALT/SGPT 15 U/L (21-72); AST/SGOT 134 U/L (17-59); BLOOD UREA NITROGEN 14 mg/dL (9-20); CALCIUM 8.7 mg/dl (8.6-10.4); GFR NON-AFRICAN AMERICAN 51
--- NOTE | 2018-08-21 20:46 | C.PDOC ---
History Of Present Illness 42 year old male presents to the ED for evaluation. Patient was found outside the hospital by Jerry, and was advised to present to the ED for admission. Patient complains of dry skin and sores throughout his body. Patient also admits to drinking earlier today, but denies drinking every day. Patient denies fever, chills at this time. Time Seen by Provider: 08/21/18 20:12 Chief Complaint (Nursing): Lower Extremity Problem/Injury History Per: Patient History/Exam Limitations: no limitations Onset/Duration Of Symptoms: Hrs Current Symptoms Are (Timing): Still Present Additional History Per: Patient Past Medical History Reviewed: Historical Data, Nursing Documentation, Vital Signs Vital Signs: Last Vital Signs Temp 98.9 F 08/21/18 20:06 Pulse 140 H 08/21/18 19:47 Resp 26 H 08/21/18 19:47 BP 172/80 H 08/21/18 19:47 Pulse Ox 97 08/21/18 19:47 - Medical History PMH: Anemia, Anxiety, Arthritis, Asthma, CHF, Depression, Diabetes, Gastrointestinal Ulcer, HTN, Hypercholesterolemia, Peripheral Edema, Pneumonia (3 years ago), Seizures (etoh induced) Denies: Alzheimer's Disease, Atrial Fibrillation, Bipolar Disorder, Bronchitis, Cardia Arrhythmia, COPD, Crohn's Disease, Dementia, Diverticulitis, Emphysema, Fractures, Gastritis, Gall Bladder Disease, Hepatitis, HIV, Hyperthyroidism, Hypothyroidism, Kidney Stones, Migraine, Mitral Valve Prolapse, Multiple Sclerosis, Osteoporosis, Pancreatitis, Parkinson's Disease, Post Traumatic Stress Disorder, Pulmonary Embolism, Chronic Kidney Disease, Rheumatoid Arthritis, Schizophrenia, Sickle Cell Disease, Sexually Transmitted Disease, Sleep Apnea, TIA Surgical History: Endoscopy Denies: Appendectomy, CABG, Carotid Endarterectomy, Cholecystectomy, Coronary Stent, Pacemaker, Tonsillectomy - [facility] Procedures ALCOHOL DETOXIFICATION (05/28/13) CENTRAL VENOUS CATHETER PLACEMENT WITH GUIDANCE (01/31/14) CYSTOSCOPY NEC (06/08/13) DETOXIFICATION SERVICES FOR SUBSTANCE ABUSE TREATMENT (08/14/15) DRAINAGE OF PERITONEAL CAVITY, PERCUTANEOUS APPROACH (02/01/18) DRAINAGE OF RIGHT LOWER LEG SKIN, EXTERNAL APPROACH (10/15/17) EXCISION OF ASCENDING COLON, ENDO, DIAGN (10/29/15) EXCISION OF STOMACH, ENDO, DIAGN (10/29/15) FLUOROSCOPY OF LEFT HEART USING LOW OSMOLAR CONTRAST (05/05/18) FLUOROSCOPY OF MULT COR ART USING L OSM CONTRAST (05/05/18) GROUP PSYCHOTHERAPY (04/21/16) INSERTION OF ENDOTRACHEAL AIRWAY INTO TRACHEA, VIA OPENING (05/05/18) INSERTION OF INFUSION DEV INTO R BRACH VEIN, PERC APPROACH (05/05/18) INSERTION OF INFUSION DEV INTO SUP VENA CAVA, PERC APPROACH (04/10/18) INSPECTION OF UPPER INTESTINAL TRACT, ENDO (08/03/17) MEASURE OF CARDIAC SAMPL & PRESSURE, L HEART, PERC APPROACH (05/05/18) OTHER ENDOSCOPY OF SM INTEST (01/31/14) PACKED CELL TRANSFUSION (01/31/14) RESPIRATORY VENTILATION, LESS THAN 24 CONSECUTIVE HOURS (05/05/18) RETROGRADE PYELOGRAM (06/08/13) TRANSFUSE NONAUT FRESH PLASMA IN PERIPH VEIN, PERC (05/05/18) TRANSFUSE NONAUT FROZEN PLASMA IN PERIPH VEIN, PERC (05/06/15) TRANSFUSE NONAUT RED BLOOD CELLS IN PERIPH VEIN, PERC (04/10/18) ULTRASONOGRAPHY OF LOWER EXTREMITY CONNECTIVE TISSUE (10/15/17) ULTRASONOGRAPHY OF RIGHT UPPER EXTREMITY VEINS, GUIDANCE (05/05/18) ULTRASONOGRAPHY OF SUPERIOR VENA CAVA, GUIDANCE (09/08/17) Family History: States: Diabetes (Father) - Social History Hx Tobacco Use: No Hx Alcohol Use: Yes Hx Substance Use: No - Immunization History Hx Tetanus Toxoid Vaccination: Yes Hx Influenza Vaccination: Yes Hx Pneumococcal Vaccination: Yes Review Of Systems Constitutional: Negative for: Fever, Chills Skin: Positive for: Other (dryness and sores throughout body ) Psych: Positive for: Other (alcohol intoxication ) Physical Exam - Physical Exam Appears: Non-toxic, No Acute Distress, Other (alcohol odor noted ) Skin: Warm, Dry, Rash (chronic rash to bilateral upper extremities ), Other (open wounds to bilateral lower extremities with chronic venous stasis changes ) Head: Atraumatic, Normacephalic Eye(s): bilateral: Normal Inspection Oral Mucosa: Moist Neck: Supple Chest: Symmetrical, No Deformity Cardiovascular: Rhythm Regular, No Murmur Respiratory: Normal Breath Sounds, No Rales, No Rhonchi, No Wheezing Gastrointestinal/Abdominal: Soft, No Tenderness Neurological/Psych: Normal Speech, Normal Cognition ED Course And Treatment - Laboratory Results Result Diagrams: 08/26/18 07:59 08/26/18 07:59 Lab Results: pO2 40 mm/Hg (30-55) 08/21/18 20:16 VBG pH 7.39 (7.32-7.43) 08/21/18 20:16 VBG pCO2 38 mmHg (40-60) L 08/21/18 20:16 VBG HCO3 23.0 mmol/L 08/21/18 20:16 VBG Total CO2 24.2 mmol/L (22-28) 08/21/18 20:16 VBG O2 Sat (Calc) 72.6 % (40-65) H 08/21/18 20:16 VBG Base Excess -1.7 mmol/L (0.0-2.0) L 08/21/18 20:16 VBG Potassium 4.1 mmol/L (3.6-5.2) 08/21/18 20:16 Sodium 142.0 mmol/l (132-148) 08/21/18 20:16 Chloride 107.0 mmol/L (98-107) 08/21/18 20:16 Glucose 149 mg/dl (75-110) H 08/21/18 20:16 Lactate 5.1 mmol/L (0.7-2.1) H* 08/21/18 20:16 Crit Value Called To Er 08/21/18 20:16 Crit Value Called By Rt 08/21/18 20:16 Crit Value Read Back Y 08/21/18 20:16 Blood Gas Notified Time 201908/21/18 20:16 PT 13.3 SECONDS (9.7-12.2) H 08/21/18 20:15 INR 1.2 08/21/18 20:15 APTT 36 SECONDS (21-34) H 08/21/18 20:15 ECG: Interpreted By Me ECG Rhythm: Sinus Tachycardia Interpretation Of ECG: Sinus Tachycardia at rate 134bpm. Normal intervals. LVH. Rate From EC O2 Sat by Pulse Oximetry: 97 (on RA) Pulse Ox Interpretation: Normal Medical Decision Making Medical Decision Making: Progress: Bloodwork, urinalysis, CXR, EKG ordered and reviewed. Enulose PO given. 0830: Case discussed with Dr. Edwards. Vancomycin IVP and Zosyn IVP given, as per his instructions. Disposition - Disposition Disposition: HOSPITALIZED Disposition Time: 20:30 Condition: FAIR - Clinical Impression Clinical Impression: Hyperammonemia, Alcohol intoxication, Alcohol dependence, Sepsis, Open leg wound - Scribe Statement The provider has reviewed the documentation as recorded by the Scribe (Ana Lind) Provider Attestation: All medical record entries made by the Scribe were at my direction and pe rsonally dictated by me. I have reviewed the chart and agree that the record accurately reflects my personal performance of the history, physical exam, medical decision making, and the department course for this patient. I have also personally directed, reviewed, and agree with the discharge instructions and disposition.
[2018-08-21] MEDS ORDERED: Lactated Ringer's 1,000 ML ONE (21:32)
[2018-08-21 22:42] LABS: SQUAMOUS EPITHIAL < 1 /hpf (0-5); URINE BACTERIA RARE (<OCC); URINE BILIRUBIN 1+ (NEGATIVE); URINE BLOOD 3+ (NEGATIVE); URINE CLARITY Hazy (Clear); URINE COLOR Amber (YELLOW); URINE GLUCOSE (UA) NORMAL (Normal); URINE LEUKOCYTE ESTERASE NEG Leu/uL (Negative); URINE PROTEIN 2+ mg/dL (NEGATIVE)
[2018-08-21] MEDS ORDERED: Sodium Chloride 0.9% 1,000 ML IV SCH (22:45)
[2018-08-22] MEDS: Albuterol-Ipratrop 3 mg / 0.5 (3 ml) UD INH SCH ×4 (01:56→23:36)
[2018-08-22] MEDS ORDERED: Piperacillin/Tazobact 3.375 gm 100 ML IVPB ONE ×2 (04:13→13:04)
[2018-08-22] MEDS: Piperacillin/Tazobact 3.375 GM in Sodium Chloride 100 ML IVPB SCH ×3 (04:19→19:50)
--- NOTE | 2018-08-22 08:55 | RAD ---
Date of service: 08/21/2018 HISTORY: R/O INFILTRATE COMPARISON: Comparison chest 07/22/2014. TECHNIQUE: 1 view obtained. FINDINGS: LUNGS: No active pulmonary disease. PLEURA: No significant pleural effusion identified, no pneumothorax apparent. CARDIOVASCULAR: No aortic atherosclerotic calcification present. Normal cardiac size. No pulmonary vascular congestion. OSSEOUS STRUCTURES: No significant abnormalities. VISUALIZED UPPER ABDOMEN: Normal. OTHER FINDINGS: None. IMPRESSION: No active disease.
[2018-08-22] MEDS: Pantoprazole 40 mg EC Tab PO SCH (12:58)
[2018-08-22] MEDS: Propranolol 5 mg Tab PO SCH ×3 (12:59→17:04)
[2018-08-22] MEDS: Mupirocin 2% Ointment (NASAL) NAS SCH (17:05)
--- NOTE | 2018-08-22 21:44 | CP.PCM.HP ---
History of Present Illness - History of Present Illness History of Present Illness: Chief complaints: pt drank etoh and not feeling well HPI: 43-year-old male with a history of liver disease, diabetes, psoriasis, psoriatic arthritis, recurrent sepsis and recurrent skin infections, alcoholic liver disease, liver cirrhosis brought in by the family member today because of the worsening leg swelling, leg ulcers and leaking skin changes in the legs bilaterally. Patient came to the emergency room with increasing leg swelling. Not feeling well. He was also complaining of shortness of breath. Patient denied any chest pain. Mild cough noted. Mostly dry. He was also complaining of some body pain Patient in the past has hospitalized multiple times with a chronic leg ulcer, sepsis and septic shock. Patient also has a significant skin changes secondary to psoriasis In the past patient had a multiple skin ulcers, excoriation of the skin, psoriatic skin changes noted. But now patient had blisterlike skin lesions on the right leg, broke and started having diffuse skin ulcers in the lower extremity on the right leg and also some on the left leg noted. Some of the skin lesions foul-smelling, with some discharge present. he is having some hard time in walking. Patient also has diabetes, not controlled well recently PMHx: Diabetes, hypertension, chronic liver disease, alcoholic liver disease, variceal PSHx: history of endoscopy/colonoscopy Allergies: NKDA Family hx: Father: history of heart transplant; Mother: hypertension/diabetes Social Hx: past h/o alcohol consumption (~1pint of vodka per day), denies illicit drug use and former tobacco use Endoscopy hx: Endoscopy/Colonoscopy completed in 10/2015 - revealed grade 1 esophageal varices, LA Grade B Esophagitis, internal hemorrhoids, edema of the ascending colon ROS: headache noted. Bleeding gums noted. No chest pain. Coughing noted, Mucus production present. No fever. No abdominal distention. Patient has no diarrhea or bleeding. Bilateral leg swelling leg edema noted. No scrotal swelling noted Vital signs reviewed No neck vein distention noted Chest good air entry bilaterally, no wheezing or rales noted CVS regular heart sound, no murmur noted abdominal distention noted pedal edema noted Patient has a multiple geographic skin lesions in the right leg occupying the right middle one third of the leg in the anterior aspect, medial as well as lateral aspect and also some skin lesion in the proximal leg noted. There is also some blisterlike skin on the left side noted. [employer] alert awake oriented -3, no functional neurological deficit patient is having tremor Psoriatic skin lesions labs reviewed Nonspecific. chest x-ray negative. Assessment and recommended 42-year-old male, hypertension, alcoholic liver disease, diabetes, psoriasis admitted with multiple skin ulcers, multipl medical problems including diabetes Hypertension Hypercholesteremia. Chronic heart disease, congestive heart failure, systolic heart failure. 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 Patient possibly has a cardiomyopathy. Associate with the decompensated heart failure now. Systolic in character. Leg edema noted. Patient now admitted with alcoholism. Alcoholic intoxication. Associated with the sepsis. Pneumonia likely. Underlying soft tissue cellulitis of the leg cannot be ruled out. Patient is at high risk. Alcoholism, alcoholic induced liver disease and the complications. Present on Admission - Present on Admission Any Indicators Present on Admission: No History of DVT/PE: No History of Uncontrolled Diabetes: No Urinary Catheter: No Decubitus Ulcer Present: No Past Patient History - Infectious Disease Hx of Infectious Diseases: None - Past Medical History & Family History Past Medical History?: Yes - Past Social History Smoking Status: Never Smoked - CARDIAC Hx Atrial Fibrillation: No Hx Cardia Arrhythmia: No Hx Congestive Heart Failure: Yes Hx Hypercholesterolemia: Yes Hx Hypertension: Yes Hx Mitral Valve Prolapse: No Hx Pacemaker: No Hx Peripheral Edema: Yes - PULMONARY Hx Asthma: Yes Hx Bronchitis: No Hx Chronic Obstructive Pulmonary Disease (COPD): No Hx Emphysema: No Hx Pneumonia: Yes (3 years ago) Hx Pulmonary Embolism: No Hx Sleep Apnea: No - NEUROLOGICAL Hx Alzheimer's Disease: No Hx Dementia: No Hx Migraine: No Hx Multiple Sclerosis: No Hx Parkinson's Disease: No Hx Seizures: Yes (etoh induced) Hx Transient Ischemic Attacks (TIA): No - HEENT Hx HEENT Problems: Yes Hx Blind: No Hx Cataracts: No Hx Deafness: No Hx Difficulty Chewing: No Hx Epistaxis: No Hx Glaucoma: No Hx Macular Degeneration: No Other/Comment: eye glasses for reading - RENAL Hx Chronic Kidney Disease: No Hx Kidney Stones: No - ENDOCRINE/METABOLIC Hx Hyperthyroidism: No Hx Hypothyroidism: No - HEMATOLOGICAL/ONCOLOGICAL Hx Anemia: Yes Hx Human Immunodeficiency Virus (HIV): No Hx Sickle Cell Disease: No - INTEGUMENTARY Hx Dermatological Problems: Yes Hx Basil Cell: No Hx Jewell: No Hx Cellulitis: No Hx Eczema: No Hx Melanoma: No Hx Psoriasis: Yes Hx Squamous Cell: No Other/Comment: Psoriatic Arthritis, Right LE wounds, Perineal excoriation - MUSCULOSKELETAL/RHEUMATOLOGICAL Hx Arthritis: Yes Hx Falls: No Hx Fractures: No Hx Osteoporosis: No Hx Rheumatoid Arthritis: No - GASTROINTESTINAL Hx Crohn's Disease: No Hx Diverticulitis: No Hx Gall Bladder Disease: No Hx Gastritis: No Hx Pancreatitis: No - GENITOURINARY/GYNECOLOGICAL Hx Sexually Transmitted Disorders: No - PSYCHIATRIC Hx Anxiety: Yes Hx Bipolar Disorder: No Hx Depression: Yes Hx Post Traumatic Stress Disorder: No Hx Schizophrenia: No Hx Substance Use: No - SURGICAL HISTORY Hx Appendectomy: No Hx Carotid Endarterectomy: No Hx Cholecystectomy: No Hx Coronary Artery Bypass Graft: No Hx Coronary Stent: No Hx Tonsillectomy: No - ANESTHESIA Hx Anesthesia: Yes Hx Anesthesia Reactions: No Hx Malignant Hyperthermia: No Meds Allergies/Adverse Reactions: Allergies Allergy/AdvReac Type Severity Reaction Status Date / Time No Known Allergies Allergy Verified 08/21/18 19:55 Results - Vital Signs Recent Vital Signs: Last Vital Signs Temp 100.3 F H 08/22/18 15:03 Pulse 112 H 08/22/18 20:00 Resp 20 08/22/18 15:03 BP 162/96 H 08/22/18 15:03 Pulse Ox 96 08/22/18 15:03 - Labs Result Diagrams: 08/23/18 07:04 08/23/18 07:04 Labs: Laboratory Results - last 24 hr 08/21/18 08/21/18 08/21/18 20:15 22:35 22:35 WBC 7.3 RBC 3.97 L Hgb 10.8 L Hct 32.8 L MCV 82.5 MCH 27.2 MCHC 32.9 L RDW 19.5 H Plt Count 56 L D MPV 7.7 Neut % (Auto) 52.0 Lymph % (Auto) 37.9 Cook % (Auto) 7.3 Eos % (Auto) 2.3 Baso % (Auto) 0.5 Neut # (Auto) 3.8 Lymph # (Auto) 2.8 Cook # (Auto) 0.5 Eos # (Auto) 0.2 Baso # (Auto) 0.0 Differential Comment Lactic Acid 3.4 H Urine Color Tammy Urine Clarity Hazy Urine pH 5.0 Ur Specific [place] 1.020 Urine Protein 2+ H Urine Glucose (UA) Normal Urine Ketones Negative Urine Blood 3+ H Urine Nitrate Negative Urine Bilirubin 1+ H Urine Urobilinogen 4.0 Ur Leukocyte Esterase Neg Urine WBC (Auto) 19 H Urine RBC (Auto) 243 H Ur Squamous Epith Cells < 1 Urine Bacteria Rare Hyaline Casts 11-20 H Urine Yeast (Budding) Occ H
[2018-08-22] MEDS: Saccharomyces Boulardi 250 mg Cap PO SCH (22:47)
[2018-08-23] MEDS: Piperacillin/Tazobact 3.375 GM in Sodium Chloride 100 ML IVPB SCH ×3 (03:53→22:15)
[2018-08-23 07:15] LABS: EOS # 0.1 K/uL (0.0-0.7); LYMPH # 1.5 K/uL (1.0-4.3); MONO # 0.4 K/uL (0.0-0.8); NRBC % 0.2 % (0.0-2.0); WHITE BLOOD COUNT 4.8 K/uL (4.8-10.8)
[2018-08-23 07:27] LABS: BASO % 0.5 % (0.0-2.0); EOS % 3.1 % (0.0-4.0); HEMOGLOBIN 9.7 g/dL (12.0-18.0); LYMPH % 32.1 % (20.0-40.0); MEAN CELL VOLUME 83.7 fL (80.0-94.0); MEAN CORPUSCULAR HEMOGLOBIN 28.4 pg (27.0-31.0); MEAN CORPUSCULAR HGB CONC 33.9 g/dL (33.0-37.0); MEAN PLATELET VOLUME 8.7 fL (7.2-11.7); NEUT # 2.7 K/uL (1.8-7.0); NEUT % 55.3 % (50.0-75.0); RBC 3.42 Mil/uL (4.40-5.90); RED CELL DISTRIBUTION WIDTH 19.4 % (11.5-14.5)
[2018-08-23 07:39] LABS: INR 1.6; PROTHROMBIN TIME 17.1 SECONDS (9.7-12.2)
[2018-08-23 07:45] LABS: ALB/GLOB RATIO 0.8 (1.0-2.1); ALBUMIN 2.5 g/dL (3.5-5.0); ALT/SGPT 32 U/L (21-72); AST/SGOT 74 U/L (17-59); BLOOD UREA NITROGEN 13 mg/dL (9-20); CALCIUM 7.1 mg/dl (8.6-10.4); GFR NON-AFRICAN AMERICAN > 60
--- NOTE | 2018-08-23 07:54 | CP.PCM.PN ---
Subjective - Date & Time of Evaluation Date of Evaluation: 08/23/18 Time of Evaluation: 07:52 - Subjective Subjective: Patient is now shaking, complaining of bilateral hip pain, and body pain. Extremities is less swelling now. No wheezing noted now On examination: Vital signs are stable otherwise. The blood pressure is slightly controlled than before. Chest good air entry Regular [place] Nontender abdomen. Pedal edema bilateral noted. Skin significant excoriations from psoriasis noted Assessment and recommendation: 42-year-old male with a history of alcoholism. Alcoholic abuse. Chronic liver disease, alcoholic liver cirrhosis now. Patient has a low magnesium, and also low platelet level today. Mostly related to the alcoholism. Continue the current treatment. Will repeat the hemoglobin and CBC in the morning. If any concern patient may need to platelet transfusion but will monitor. Hematology evaluation may be needed Objective - Vital Signs/Intake and Output Vital Signs (last 24 hours): Temp Pulse Resp BP Pulse Ox 98.8 F 100 H 20 125/72 98 08/23/18 04:52 08/23/18 04:52 08/23/18 04:52 08/23/18 04:52 08/23/18 04:52 Intake and Output: 08/23/18 08/23/18 06:59 18:59 Intake Total 750 Output Total 800 Balance -50 - Medications Medications: Current Medications Albuterol/Ipratropium (Duoneb 3 Mg/0.5 Mg (3 Ml) Ud) 3 ml INH RQ8 [facility] Last Admin: 08/22/18 23:36 Dose: Not Given Clonidine HCl (Catapres Tts1 0.1 Mg/24 Hr) 1 patch TD Q7D@1400 [facility] Fluocinonide (Lidex 0.05% Cream) 1 gm TOP BID [facility] Last Admin: 08/22/18 17:05 Dose: 1 applic Folic Acid (Folic Acid) 1 mg PO DAILY [facility] Last Admin: 08/22/18 12:59 Dose: 1 mg Furosemide (Lasix) 40 mg PO DAILY [facility] Last Admin: 08/22/18 12:58 Dose: 40 mg Gabapentin (Neurontin) 300 mg PO BID [facility] Last Admin: 08/22/18 17:04 Dose: 300 mg Piperacillin Sod/Tazobactam (Sod 3.375 gm/ Sodium Chloride) 100 mls @ 200 mls/hr IVPB Q8H [facility]; Protocol Last Admin: 08/23/18 03:53 Dose: 200 mls/hr Vancomycin HCl 500 mg/ Sodium (Chloride) 100 mls @ 100 mls/hr IVPB Q12H [facility]; Protocol Last Admin: 08/22/18 22:23 Dose: 100 mls/hr Lactic Acid (Lac-Hydrin 12% Lotion (225 G)) 1 gm EXT DAILY [facility] Lactulose (Enulose) 20 gm PO BID [facility] Last Admin: 08/22/18 17:04 Dose: 20 gm Lorazepam (Ativan) 1 mg IVP Q6H PRN PRN Reason: SEVERE ANXIETY Losartan Potassium (Cozaar) 25 mg PO DAILY [facility] Last Admin: 08/22/18 12:59 Dose: 25 mg Mupirocin (Bactroban 2% Nasal) 0.25 gm ORION BID [facility] Last Admin: 08/22/18 17:05 Dose: 0.25 gm Ondansetron HCl (Zofran Inj) 4 mg IVP Q4H PRN PRN Reason: vomiting Last Admin: 08/22/18 04:39 Dose: 4 mg Pantoprazole Sodium (Protonix Ec Tab) 40 mg PO DAILY [facility] Last Admin: 08/22/18 12:58 Dose: 40 mg Propranolol HCl (Inderal) 5 mg PO TID [facility] Last Admin: 08/22/18 17:04 Dose: 5 mg Saccharomyces Boulardii (Florastor) 250 mg PO HS [facility] Last Admin: 08/22/18 22:47 Dose: 250 mg Spironolactone (Aldactone) 25 mg PO BID [facility] Last Admin: 08/22/18 17:04 Dose: 25 mg Thiamine HCl (Vitamin B1 Tab) 100 mg PO DAILY [facility] Last Admin: 08/22/18 12:58 Dose: 100 mg - Labs Labs: 08/23/18 07:04 08/23/18 07:04 PT 17.1 SECONDS (9.7-12.2) H 08/23/18 07:04 INR 1.6 08/23/18 07:04 APTT 33 SECONDS (21-34) 08/23/18 07:04
[2018-08-23] MEDS: Albuterol-Ipratrop 3 mg / 0.5 (3 ml) UD INH SCH ×3 (08:24→23:48)
[2018-08-23] MEDS: Magnesium Sulfate 1 gm in D5W 1 GM/100 ML BAG IVPB SCH ×2 (08:27→08:52)
[2018-08-23] MEDS: Pantoprazole 40 mg EC Tab PO SCH (10:58)
[2018-08-23] MEDS: Propranolol 5 mg Tab PO SCH ×3 (10:58→17:29)
[2018-08-23] MEDS: Mupirocin 2% Ointment (NASAL) NAS SCH ×2 (11:02→18:00)
--- NOTE | 2018-08-23 12:01 | PCM.PSYCH ---
Initial Psychiatric Evaluation - Initial Psychiatric Evaluation Type of Admission: Voluntary Legal Status: Capacity Chief Complaint (in patient's own words): "I need to go to a rehab" History of Present Illness and Precipitating Events: Patient seen, chart reviewed and case discussed. Consult was requested for his alcoholism. Patient is a 42 yo [place] male who has liver cirrhosis bc of alcohol and has been admitted numerous times for this. He is well-known from previous consults and psych admissions. He admits to drinking a pint or more but reportedly stopped recently. He has mild wdw sxs. He is aware of the risks he is taking He feels depressed, too, but denies feeling severely depressed or suicidal. No katy or psychosis No drug use Med hx: HTN, Diabetes Mellitus, CHF, Psoriatic Arthritis, Psoriasis, Neuropathic pain, irregular heartbeat, Anemia, Asthma, hypercholesterolemia, ETOH induced seizure Surg hx: endoscopy Allergies: no known allergies Psych Hx: Anxiety, Alcohol Use Disorder, Major depression -- had 2 admissions with [facility] in Has had 1-2 previous detox admissions. He has tried to go to rehab at [facility] and [place], but it was unclear if he ever attended. History of over 20 years of alcohol abuse. Has a history of drinking 2 pints of vodka/day. Currently drinking one pint/day. Family Psych hx: none Family Med hx: Father: Diabetes, kidney cancer, heart transplant, Mom: knee replacement Social Hx: Patient is from his and has three children. He is currently living with his parents and brother. 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 He has applied for disability and is waiting to hear about the decision. had an order of protection against him, but he claims she was the one who had been aggressive. Current Medications: Active Medications Generic Name Dose Route Start Last Admin Trade Name Freq PRN Reason Stop Dose Admin Albuterol/Ipratropium 3 ml 08/22/18 00:00 08/23/18 08:24 Duoneb 3 Mg/0.5 Mg (3 Ml) Ud INH 3 ml RQ8 [facility] Administration Clonidine HCl 1 patch 08/22/18 14:00 Catapres Tts1 0.1 Mg/24 Hr TD Q7D@1400 [facility] Fluocinonide 1 gm 08/22/18 10:00 08/23/18 11:13 Lidex 0.05% Cream TOP 1 applic BID [facility] Administration Folic Acid 1 mg 08/22/18 10:00 08/23/18 10:57 Folic Acid PO 1 mg DAILY [facility] Administration Furosemide 40 mg 08/22/18 10:00 08/23/18 10:58 Lasix PO 40 mg DAILY [facility] Administration Gabapentin 300 mg 08/22/18 10:00 08/23/18 10:56 Neurontin PO 300 mg BID [facility] Administration Piperacillin Sod/Tazobactam 100 mls @ 200 mls/hr 08/22/18 04:00 08/23/18 11:48 Sod 3.375 gm/ Sodium Chloride IVPB 200 mls/hr Q8H [facility] Administration Protocol Vancomycin HCl 500 mg/ Sodium 100 mls @ 100 mls/hr 08/22/18 10:00 08/23/18 10:56 Chloride IVPB 100 mls/hr Q12H [facility] Administration Protocol Lactic Acid 1 gm 08/22/18 10:00 Lac-Hydrin 12% Lotion (225 G) EXT DAILY [facility] Lactulose 20 gm 08/22/18 10:00 08/23/18 10:59 Enulose PO 20 gm BID [facility] Administration Lorazepam 1 mg 08/22/18 14:09 Ativan IVP Q6H PRN SEVERE ANXIETY Losartan Potassium 25 mg 08/22/18 10:00 08/23/18 11:09 Cozaar PO 25 mg DAILY [facility] Administration Mupirocin 0.25 gm 08/22/18 10:00 08/23/18 11:02 Bactroban 2% Nasal ORION Not Given BID [facility] Ondansetron HCl 4 mg 08/22/18 04:27 08/22/18 04:39 Zofran Inj IVP 4 mg Q4H PRN Administration vomiting Pantoprazole Sodium 40 mg 08/22/18 10:00 08/23/18 10:58 Protonix Ec Tab PO 40 mg DAILY [facility] Administration Propranolol HCl 5 mg 08/22/18 10:00 08/23/18 10:58 Inderal PO 5 mg TID [facility] Administration Saccharomyces Boulardii 250 mg 08/22/18 22:00 08/22/18 22:47 Florastor PO 250 mg HS [facility] Administration Spironolactone 25 mg 08/22/18 10:00 08/23/18 10:58 Aldactone PO 25 mg BID [facility] Administration Thiamine HCl 100 mg 08/22/18 10:00 08/23/18 10:57 Vitamin B1 Tab PO 100 mg DAILY [facility] Administration Past Psychiatric History - Past Psychiatric History Previous Treatment History: Inpatient Pertinent Medical Hx (Current Medical&Sleep Prob, Allergies): Allergies Allergy/AdvReac Type Severity Reaction Status Date / Time No Known Allergies Allergy Verified 08/21/18 19:55 Saccharomyces Boulardi [Florastor] 250 mg PO HS #10 cap 05/18/18 Albuterol/Ipratropium [Duoneb 3 mg/0.5 mg (3 ml) UD] 3 ml INH RQ4 #120 neb 07/26/18 Ammonium Lactate 12% [Lac-Hydrin 12% Lotion (225 g)] 0 gm EXT DAILY #225 ml 07/26/18 Ciprofloxacin [Cipro] 500 mg PO BID #14 tab 07/26/18 Fluocinonide 0.05% Cream [Lidex 0.05% Cream] 0 gm TOP BID #45 gm 07/26/18 Folic Acid 1 mg PO DAILY #30 tab 07/26/18 Furosemide [Lasix] 40 mg PO DAILY #60 tab 07/26/18 Gabapentin [Neurontin] 300 mg PO BID #60 cap 07/26/18 Lactulose [Enulose] 20 gm PO BID #200 udc 07/26/18 Losartan [Cozaar] 25 mg PO DAILY #30 tab 07/26/18 Magnesium Oxide [Mag-Ox] 400 mg PO DAILY #30 tab 07/26/18 Mupirocin 2% Nasal [Bactroban 2% Nasal] 0.25 gm ORION BID #45 gm 07/26/18 Pantoprazole [Protonix EC Tab] 40 mg PO DAILY #30 ect 07/26/18 Potassium Chloride [Potassium Chloride Oral Soln] 20 meq PO DAILY 30 Days #30 udc 07/26/18 Promethazine [Phenergan Syrup] 6.25 mg PO Q6 PRN #200 ml 07/26/18 Propranolol [Inderal] 5 mg PO TID #90 tab 07/26/18 Spironolactone [Aldactone] 25 mg PO BID #60 tab 07/26/18 Thiamine [Vitamin B1 Tab] 100 mg PO DAILY #30 tab 07/26/18 Review of Systems - Psychiatric Psychiatric: Abnormal Sleep Pattern, Anhedonia, Anxiety, Change in Appetite, Depression, Difficulty Concentrating. absent: Hallucinations, Homicidal Ideation, Suicidal Ideation Mental Status Examination - Personal Presentation Personal Presentation: Looks older than stated age (unkempt) - Affect Affect: Blunted - Motor Activity Motor Activity: Calm - Reliability in Providing Information Reliability in Providing Information: Good - Speech Speech: Organized - Mood Mood: Depressed, Anxious - Formal Thought Process Formal Thought Process: No Impairment - Cognitive Functions Orientation: Person, Place, Situation, Time Sensorium: Alert Attention/Concentration: Easily distracted Estimate of Intelligence: Average Judgement: Intact, as evidence by: Insight regarding need for hospitalization Memory: Recent intact, as evidence by: Ability to recall events of the day, Remote impaired as evidenced by: Inability to recall sig life events - Risk Risk: Withdrawal, Diminished functioning - Strength & Assets Inventory Strength & Assets Inventory: Cooperative - Limitations Limitations: Other DSM 5 DX - DSM 5 DSM 5 Diagnosis: Major Depressive Disorder - chronic, moderate Alcohol Use Disorder - severe Alcohol withdrawal r/o personality d/o - Recommended/Plan of Treatment Treatment Recommendations and Plan of Treatment: Depression: Start Lexapro only if he doesn't respond to abstinence and support. He is not severely depressed but medically compromised. Supportive therapy CBT Alcohol use disorder prn Ativan if he starts to withdraw Gabapentin Psychoeducation [place] for abstinence 35min
--- NOTE | 2018-08-23 12:51 | CARD ---
APPROVED REPORT Date of service: 08/21/2018 EKG Measurement Heart [id number] <Conclusion> Sinus tachycardia Moderate voltage criteria for LVH, may be normal variant Borderline ECG
[2018-08-23] MEDS: Ammonium Lactate 12% Lotion (225 g) EXT SCH (13:19)
[2018-08-23] MEDS: Saccharomyces Boulardi 250 mg Cap PO SCH (22:00)
[2018-08-24] MEDS: Piperacillin/Tazobact 3.375 GM in Sodium Chloride 100 ML IVPB SCH ×3 (04:13→20:30)
[2018-08-24 07:20] LABS: BASO % 0.5 % (0.0-2.0); EOS # 0.4 K/uL (0.0-0.7); EOS % 8.7 % (0.0-4.0); HEMOGLOBIN 9.7 g/dL (12.0-18.0); LYMPH # 1.3 K/uL (1.0-4.3); LYMPH % 27.2 % (20.0-40.0); MEAN CELL VOLUME 84.2 fL (80.0-94.0); MEAN CORPUSCULAR HGB CONC 33.3 g/dL (33.0-37.0); MEAN PLATELET VOLUME 8.5 fL (7.2-11.7); MONO # 0.4 K/uL (0.0-0.8); MONO % 8.7 % (0.0-10.0); NEUT # 2.7 K/uL (1.8-7.0); NEUT % 54.9 % (50.0-75.0); NRBC % 0.2 % (0.0-2.0); RBC 3.46 Mil/uL (4.40-5.90); RED CELL DISTRIBUTION WIDTH 19.5 % (11.5-14.5); WHITE BLOOD COUNT 4.9 K/uL (4.8-10.8)
[2018-08-24 07:44] LABS: ALB/GLOB RATIO 0.8 (1.0-2.1); ALBUMIN 2.5 g/dL (3.5-5.0); ALT/SGPT 32 U/L (21-72); AST/SGOT 63 U/L (17-59); BLOOD UREA NITROGEN 10 mg/dL (9-20); CALCIUM 7.1 mg/dl (8.6-10.4); GFR NON-AFRICAN AMERICAN > 60
[2018-08-24] MEDS: Albuterol-Ipratrop 3 mg / 0.5 (3 ml) UD INH SCH ×2 (07:48→15:37)
[2018-08-24] MEDS ORDERED: Potassium Chloride 20 mEq/15 ml LIQ UD PO ONE (07:48)
--- NOTE | 2018-08-24 07:51 | CP.PCM.PN ---
Subjective - Date & Time of Evaluation Date of Evaluation: 08/24/18 Time of Evaluation: 07:49 - Subjective Subjective: Patient is now having open wound in the right leg, also there is a significant discharge noted. Complaining of cough. Also complaining of body pain. Patient has a skin defect in the back Patient eating well. No nausea no vomiting On examination: Blood pressure is on the high side. Currently on clonidine patch Chest good air entry Heart sounds are regular Nontender abdomen. Edema less in the legs. Assessment and recommendation: 42-year-old male with a history of liver cirrhosis, alcoholism, thrombocytopenia pancytopenia admitted with sepsis. Patient also has a systolic heart failure secondary to cardiomyopathy alcoholism induced Control the blood pressure. Wound management. Antibiotic and will follow the patient Objective - Vital Signs/Intake and Output Vital Signs (last 24 hours): Temp Pulse Resp BP Pulse Ox 99.2 F 83 20 155/93 H 99 08/24/18 07:00 08/24/18 07:00 08/24/18 07:00 08/24/18 07:00 08/24/18 07:00 Intake and Output: 08/24/18 08/24/18 06:59 18:59 Intake Total 100 Balance 100 - Medications Medications: Current Medications Albuterol/Ipratropium (Duoneb 3 Mg/0.5 Mg (3 Ml) Ud) 3 ml INH RQ8 [facility] Last Admin: 08/23/18 23:48 Dose: 3 ml Clonidine HCl (Catapres Tts1 0.1 Mg/24 Hr) 1 patch TD Q7D@1400 [facility] Fluocinonide (Lidex 0.05% Cream) 1 gm TOP BID [facility] Last Admin: 08/23/18 19:00 Dose: 1 applic Folic Acid (Folic Acid) 1 mg PO DAILY [facility] Last Admin: 08/23/18 10:57 Dose: 1 mg Furosemide (Lasix) 40 mg PO DAILY [facility] Last Admin: 08/23/18 10:58 Dose: 40 mg Gabapentin (Neurontin) 300 mg PO BID [facility] Last Admin: 08/23/18 17:29 Dose: 300 mg Piperacillin Sod/Tazobactam (Sod 3.375 gm/ Sodium Chloride) 100 mls @ 200 mls/hr IVPB Q8H [facility]; Protocol Last Admin: 08/24/18 04:13 Dose: 200 mls/hr Vancomycin HCl 500 mg/ Sodium (Chloride) 100 mls @ 100 mls/hr IVPB Q12H [facility]; Protocol Last Admin: 08/23/18 22:19 Dose: 100 mls/hr Lactic Acid (Lac-Hydrin 12% Lotion (225 G)) 1 gm EXT DAILY [facility] Last Admin: 08/23/18 13:19 Dose: Not Given Lactulose (Enulose) 20 gm PO BID [facility] Last Admin: 08/23/18 18:00 Dose: Not Given Lorazepam (Ativan) 1 mg IVP Q6H PRN PRN Reason: SEVERE ANXIETY Losartan Potassium (Cozaar) 25 mg PO DAILY [facility] Last Admin: 08/23/18 11:09 Dose: 25 mg Mupirocin (Bactroban 2% Nasal) 0.25 gm ORION BID [facility] Last Admin: 08/23/18 18:00 Dose: Not Given Ondansetron HCl (Zofran Inj) 4 mg IVP Q4H PRN PRN Reason: vomiting Last Admin: 08/22/18 04:39 Dose: 4 mg Pantoprazole Sodium (Protonix Ec Tab) 40 mg PO DAILY [facility] Last Admin: 08/23/18 10:58 Dose: 40 mg Propranolol HCl (Inderal) 5 mg PO TID [facility] Last Admin: 08/23/18 17:29 Dose: 5 mg Saccharomyces Boulardii (Florastor) 250 mg PO HS [facility] Last Admin: 08/23/18 22:00 Dose: Not Given Spironolactone (Aldactone) 25 mg PO BID [facility] Last Admin: 08/23/18 17:29 Dose: 25 mg Thiamine HCl (Vitamin B1 Tab) 100 mg PO DAILY [facility] Last Admin: 08/23/18 10:57 Dose: 100 mg - Labs Labs: 08/24/18 07:07 08/24/18 07:07 PT 17.1 SECONDS (9.7-12.2) H 08/23/18 07:04 INR 1.6 08/23/18 07:04 APTT 33 SECONDS (21-34) 08/23/18 07:04
[2018-08-24] MEDS: Magnesium Sulfate 1 gm in D5W 1 GM/100 ML BAG IVPB SCH ×2 (08:11→09:00)
[2018-08-24] MEDS: Mupirocin 2% Ointment (NASAL) NAS SCH ×3 (10:23→18:15)
[2018-08-24] MEDS: Propranolol 5 mg Tab PO SCH ×3 (10:24→18:14)
[2018-08-24] MEDS: Pantoprazole 40 mg EC Tab PO SCH (10:24)
[2018-08-24 10:30] LABS: FERRITIN 41.2 ng/mL
[2018-08-24] MEDS: Ammonium Lactate 12% Lotion (225 g) EXT SCH ×2 (12:32→15:42)
[2018-08-24] MEDS: Saccharomyces Boulardi 250 mg Cap PO SCH (21:28)
--- NOTE | 2018-08-24 22:50 | CP.PCM.CON ---
History of Present Illness - History of Present Illness History of Present Illness: Have been asked to see this patient for progressive pancytopenia. 42-year-old male with a history of liver disease, diabetes, psoriasis, psoriatic arthritis, recurrent sepsis and recurrent skin infections, alcoholic liver disease, liver cirrhosis brought in by the family member today because of the worsening leg swelling, leg ulcers and leaking skin changes in the legs bilaterally. Patient came to the emergency room with increasing leg swelling. The patient was found to have bilateral lower extremity edema with open wounds with bleeding. He denies fever, chills, admits to drinking recently. Says he was sent to [place] for treatment of the venous ulcers, but was not able to tolerate therapy Patient in the past has hospitalized multiple times with a chronic leg ulcer, sepsis and septic shock. Patient also has a significant skin changes secondary to psoriasis In the past patient had a multiple skin ulcers, excoriation of the skin, psoriatic skin changes noted. But now patient had blisterlike skin lesions on the right leg, broke and started having diffuse skin ulcers in the lower extremity on the right leg and also some on the left leg noted. Some of the skin lesions foul-smelling, with some discharge present. he is having some hard time in walking. Patient also has diabetes, not controlled well recently PMHx: Diabetes, hypertension, chronic liver disease, alcoholic liver disease, variceal PSHx: history of endoscopy/colonoscopy Past Patient History - Infectious Disease Hx of Infectious Diseases: None - Past Medical History & Family History Past Medical History?: Yes - Past Social History Smoking Status: Never Smoked - CARDIAC Hx Atrial Fibrillation: No Hx Cardia Arrhythmia: No Hx Congestive Heart Failure: Yes Hx Hypercholesterolemia: Yes Hx Hypertension: Yes Hx Mitral Valve Prolapse: No Hx Pacemaker: No Hx Peripheral Edema: Yes - PULMONARY Hx Asthma: Yes Hx Bronchitis: No Hx Chronic Obstructive Pulmonary Disease (COPD): No Hx Emphysema: No Hx Pneumonia: Yes (3 years ago) Hx Pulmonary Embolism: No Hx Sleep Apnea: No - NEUROLOGICAL Hx Alzheimer's Disease: No Hx Dementia: No Hx Migraine: No Hx Multiple Sclerosis: No Hx Parkinson's Disease: No Hx Seizures: Yes (etoh induced) Hx Transient Ischemic Attacks (TIA): No - HEENT Hx HEENT Problems: Yes Hx Blind: No Hx Cataracts: No Hx Deafness: No Hx Difficulty Chewing: No Hx Epistaxis: No Hx Glaucoma: No Hx Macular Degeneration: No Other/Comment: eye glasses for reading - RENAL Hx Chronic Kidney Disease: No Hx Kidney Stones: No - ENDOCRINE/METABOLIC Hx Hyperthyroidism: No Hx Hypothyroidism: No - HEMATOLOGICAL/ONCOLOGICAL Hx Anemia: Yes Hx Human Immunodeficiency Virus (HIV): No Hx Sickle Cell Disease: No - INTEGUMENTARY Hx Dermatological Problems: Yes Hx Basil Cell: No Hx Jewell: No Hx Cellulitis: No Hx Eczema: No Hx Melanoma: No Hx Psoriasis: Yes Hx Squamous Cell: No Other/Comment: Psoriatic Arthritis, Right LE wounds, Perineal excoriation - MUSCULOSKELETAL/RHEUMATOLOGICAL Hx Arthritis: Yes Hx Falls: No Hx Fractures: No Hx Osteoporosis: No Hx Rheumatoid Arthritis: No - GASTROINTESTINAL Hx Crohn's Disease: No Hx Diverticulitis: No Hx Gall Bladder Disease: No Hx Gastritis: No Hx Pancreatitis: No - GENITOURINARY/GYNECOLOGICAL Hx Sexually Transmitted Disorders: No - PSYCHIATRIC Hx Anxiety: Yes Hx Bipolar Disorder: No Hx Depression: Yes Hx Post Traumatic Stress Disorder: No Hx Schizophrenia: No Hx Substance Use: No - SURGICAL HISTORY Hx Appendectomy: No Hx Carotid Endarterectomy: No Hx Cholecystectomy: No Hx Coronary Artery Bypass Graft: No Hx Coronary Stent: No Hx Tonsillectomy: No - ANESTHESIA Hx Anesthesia: Yes Hx Anesthesia Reactions: No Hx Malignant Hyperthermia: No Meds Allergies/Adverse Reactions: Allergies Allergy/AdvReac Type Severity Reaction Status Date / Time No Known Allergies Allergy Verified 08/21/18 19:55 - Medications Medications: Current Medications Albuterol/Ipratropium (Duoneb 3 Mg/0.5 Mg (3 Ml) Ud) 3 ml INH RQ8 [facility] Last Admin: 08/24/18 15:37 Dose: 3 ml Clonidine HCl (Catapres Tts1 0.1 Mg/24 Hr) 1 patch TD Q7D@1400 [facility] Fluocinonide (Lidex 0.05% Cream) 1 gm TOP BID [facility] Last Admin: 08/24/18 18:15 Dose: 1 applic Folic Acid (Folic Acid) 1 mg PO DAILY [facility] Last Admin: 08/24/18 10:24 Dose: 1 mg Furosemide (Lasix) 40 mg PO DAILY [facility] Last Admin: 08/24/18 10:25 Dose: 40 mg Gabapentin (Neurontin) 300 mg PO BID [facility] Last Admin: 08/24/18 18:14 Dose: 300 mg Piperacillin Sod/Tazobactam (Sod 3.375 gm/ Sodium Chloride) 100 mls @ 200 mls/hr IVPB Q8H [facility]; Protocol Last Admin: 08/24/18 20:30 Dose: 200 mls/hr Vancomycin HCl 500 mg/ Sodium (Chloride) 100 mls @ 100 mls/hr IVPB Q12H [facility]; Protocol Last Admin: 08/24/18 21:31 Dose: 100 mls/hr Lactic Acid (Lac-Hydrin 12% Lotion (225 G)) 1 gm EXT DAILY [facility] Last Admin: 08/24/18 15:42 Dose: 1 applic Lactulose (Enulose) 20 gm PO BID [facility] Last Admin: 08/24/18 18:22 Dose: 20 gm Lorazepam (Ativan) 1 mg IVP Q6H PRN PRN Reason: SEVERE ANXIETY Losartan Potassium (Cozaar) 25 mg PO DAILY [facility] Last Admin: 08/24/18 10:24 Dose: 25 mg Mupirocin (Bactroban 2% Nasal) 0.25 gm ORION BID [facility] Last Admin: 08/24/18 18:15 Dose: Not Given Pantoprazole Sodium (Protonix Ec Tab) 40 mg PO DAILY [facility] Last Admin: 08/24/18 10:24 Dose: 40 mg Propranolol HCl (Inderal) 5 mg PO TID [facility] Last Admin: 08/24/18 18:14 Dose: 5 mg Saccharomyces Boulardii (Florastor) 250 mg PO HS [facility] Last Admin: 08/24/18 21:28 Dose: 250 mg Spironolactone (Aldactone) 25 mg PO BID [facility] Last Admin: 08/24/18 18:14 Dose: 25 mg Thiamine HCl (Vitamin B1 Tab) 100 mg PO DAILY [facility] Last Admin: 08/24/18 10:24 Dose: 100 mg Results - Vital Signs Recent Vital Signs: Last Vital Signs Temp 99.2 F 08/24/18 07:00 Pulse 107 H 08/24/18 18:40 Resp 20 08/24/18 07:00 BP 150/80 08/24/18 10:25 Pulse Ox 99 08/24/18 07:00 - Labs Result Diagrams: 08/24/18 07:07 08/24/18 07:07 Labs: Laboratory Results - last 24 hr 08/24/18 08/24/18 08/24/18 07:07 07:07 07:07 WBC 4.9 RBC 3.46 L Hgb 9.7 L Hct 29.1 L MCV 84.2 MCH 28.0 MCHC 33.3 RDW 19.5 H Plt Count 31 L MPV 8.5 Neut % (Auto) 54.9 Lymph % (Auto) 27.2 [place] % (Auto) 8.7 Eos % (Auto) 8.7 H Baso % (Auto) 0.5 Neut # (Auto) 2.7 Lymph # (Auto) 1.3 [place] # (Auto) 0.4 Eos # (Auto) 0.4 Baso # (Auto) 0.0 Retic Count 2.9 H D Sodium 134 Potassium 3.3 L Chloride 104 Carbon Dioxide 24 Anion Gap 9 L BUN 10 Creatinine 0.9 Est GFR ( Amer) > 60 Est GFR (Non-Af Amer) > 60 Random Glucose 103 Calcium 7.1 L Phosphorus 2.0 L Magnesium 1.4 L Ferritin 41.2 Total Bilirubin 1.0 AST 63 H ALT 32 Alkaline Phosphatase 113 Total Protein 5.7 L Albumin 2.5 L Globulin 3.3 Albumin/Globulin Ratio 0.8 L Alpha Fetoprotein 4.5 Vitamin B12 > 1000 H Assessment & Plan (1) Psoriasiform dermatitis Assessment and Plan: 42 yo man with pancytopenia, severe thrombocytopenia, which is stable at this point without any active bleeding. most likely secondary to liver cirrhosis and hypersplenism. His B12 levels are normal. The Iron stores are lower than would be expected with liver disease, but will hold off on replacement unless his Hgb drops or active bleeding seen. Have discussed with the patient regarding ETOH cessation, he is more concerned about the worsening of the psoriatic lesions on his skin. will follow CBC. Will check the fibrinogen and LDH if the counts change, they are stable at this time Status: Acute
[2018-08-25] MEDS: Albuterol-Ipratrop 3 mg / 0.5 (3 ml) UD INH SCH ×4 (00:20→23:42)
[2018-08-25] MEDS: Piperacillin/Tazobact 3.375 GM in Sodium Chloride 100 ML IVPB SCH ×3 (04:02→19:07)
[2018-08-25] MEDS: Propranolol 5 mg Tab PO SCH ×3 (10:45→19:06)
[2018-08-25] MEDS: Pantoprazole 40 mg EC Tab PO SCH (10:47)
[2018-08-25] MEDS: Ammonium Lactate 12% Lotion (225 g) EXT SCH (10:50)
[2018-08-25] MEDS: Mupirocin 2% Ointment (NASAL) NAS SCH ×2 (10:52→18:13)
[2018-08-25] MEDS ORDERED: Promethazine 6.25 MG/5 ML CUP PO PRN (20:22)
[2018-08-25] MEDS: Saccharomyces Boulardi 250 mg Cap PO SCH (21:36)
[2018-08-26] MEDS: Piperacillin/Tazobact 3.375 GM in Sodium Chloride 100 ML IVPB SCH ×3 (03:59→20:00)
[2018-08-26] MEDS: Albuterol-Ipratrop 3 mg / 0.5 (3 ml) UD INH SCH ×2 (08:05→23:50)
[2018-08-26 08:09] LABS: BASO % 0.3 % (0.0-2.0); EOS # 0.3 K/uL (0.0-0.7); EOS % 6.8 % (0.0-4.0); HEMOGLOBIN 9.9 g/dL (12.0-18.0); LYMPH # 1.9 K/uL (1.0-4.3); LYMPH % 38.1 % (20.0-40.0); MEAN CELL VOLUME 84.3 fL (80.0-94.0); MEAN CORPUSCULAR HEMOGLOBIN 28.6 pg (27.0-31.0); MEAN PLATELET VOLUME 7.8 fL (7.2-11.7); MONO # 0.7 K/uL (0.0-0.8); MONO % 14.1 % (0.0-10.0); NEUT % 40.7 % (50.0-75.0); RBC 3.47 Mil/uL (4.40-5.90); RED CELL DISTRIBUTION WIDTH 20.1 % (11.5-14.5)
[2018-08-26 08:20] LABS: BLOOD UREA NITROGEN 9 mg/dL (9-20); CALCIUM 7.8 mg/dl (8.6-10.4); GFR NON-AFRICAN AMERICAN > 60
[2018-08-26] MEDS: Ammonium Lactate 12% Lotion (225 g) EXT SCH (09:14)
[2018-08-26] MEDS: Mupirocin 2% Ointment (NASAL) NAS SCH ×2 (09:21→17:18)
[2018-08-26] MEDS: Pantoprazole 40 mg EC Tab PO SCH (09:24)
[2018-08-26] MEDS: Propranolol 5 mg Tab PO SCH ×3 (10:53→20:00)
--- NOTE | 2018-08-26 13:20 | PCM.PYCHPN ---
Psychiatric Progress Note - Psychiatric Progress Note Patient seen today, length of contact: 15 min Patient Chief Complaint: "I feel tired" Problems Identified/Issues Discussed: The pt is seen, chart reviewed, case is discussed with staff. Support and psychoeducation given, NE used briefly The pt is improving slowly but needs more time due to severity of symptoms and relapse risk. No SEs from medications, risks discussed. After care discussed - he wants to go to a rehab - Support given Medication Change: Yes (meds adjusted) Medical Record Reviewed: Yes Mental Status Examination - Cognitive Function Orientation: Person, Place, Situation, Time Memory: Impaired Attention: Poor Concentration: Poor Association: WNL Fund of Knowledge: WNL - Mood Mood: Depressed, Anxious - Affect Affect: Constricted - Speech Speech: Appropriate - Formal Thought Process Formal Thought Process: No Impairment - Suicidal Ideation Suicidal Ideation: No - Homicidal Ideation Homicidal Ideation: No Goal/Treatment Plan - Goal/Treatment Plan Need for Continued Stay: Other (medical) Progress Toward Problem(s) and Goals/Treatment Plan: Continue meds SW to refer to rehab Support given Psych will sign off.
[2018-08-26] MEDS: Saccharomyces Boulardi 250 mg Cap PO SCH (21:12)
[2018-08-27] MEDS: Piperacillin/Tazobact 3.375 GM in Sodium Chloride 100 ML IVPB SCH ×3 (03:38→20:16)
--- NOTE | 2018-08-27 07:06 | CP.PCM.PN ---
Subjective - Date & Time of Evaluation Date of Evaluation: 08/27/18 Time of Evaluation: 07:06 - Subjective Subjective: Patient is complaining of minimal cough, minimal wheezing. No fever noted. Patient denies any chest pain. Complaining of some abdominal discomfort, leg swelling is better On examination: Vital signs are stable. Chest good air entry bilaterally, minimal expiratory wheezing noted, regular [place] noted, abdomen soft nontender, leg edema is less Right leg wound is much improving Assessment and recommendation: 42-year-old male admitted to the hospital with chronic liver disease chronic alcoholism ascites psoriasis psoriatic skin lesions diabetes hypertension alcoholic cardiomyopathy Patient is now showing some improvement. On antibiotic. We will continue the current treatment. And will follow the patient I recommended rehab evaluation for long-term IV antibiotic and wound care management Objective - Vital Signs/Intake and Output Vital Signs (last 24 hours): Temp Pulse Resp BP Pulse Ox 98.4 F 85 20 154/90 H 99 08/26/18 23:15 08/26/18 23:15 08/26/18 23:15 08/26/18 23:15 08/26/18 23:15 Intake and Output: 08/27/18 08/27/18 06:59 18:59 Intake Total 600 Balance 600 - Medications Medications: Current Medications Clonidine HCl (Catapres Tts1 0.1 Mg/24 Hr) 1 patch TD Q7D@1400 [facility] Fluocinonide (Lidex 0.05% Cream) 1 gm TOP BID [facility] Last Admin: 08/26/18 18:00 Dose: 1 applic Folic Acid (Folic Acid) 1 mg PO DAILY [facility] Last Admin: 08/26/18 09:22 Dose: 1 mg Furosemide (Lasix) 40 mg PO DAILY [facility] Last Admin: 08/26/18 09:17 Dose: 40 mg Gabapentin (Neurontin) 300 mg PO BID [facility] Last Admin: 08/26/18 17:18 Dose: 300 mg Piperacillin Sod/Tazobactam (Sod 3.375 gm/ Sodium Chloride) 100 mls @ 200 mls/hr IVPB Q8H [facility]; Protocol Last Admin: 08/27/18 03:38 Dose: 200 mls/hr Vancomycin HCl 500 mg/ Sodium (Chloride) 100 mls @ 100 mls/hr IVPB Q12H [facility]; Protocol Last Admin: 08/26/18 21:00 Dose: 100 mls/hr Lactic Acid (Lac-Hydrin 12% Lotion (225 G)) 1 gm EXT DAILY [facility] Last Admin: 08/26/18 09:14 Dose: 1 applic Lactulose (Enulose) 20 gm PO BID [facility] Last Admin: 08/26/18 17:19 Dose: Not Given Losartan Potassium (Cozaar) 25 mg PO DAILY [facility] Last Admin: 08/26/18 09:21 Dose: 25 mg Mupirocin (Bactroban 2% Nasal) 0.25 gm ORION BID [facility] Last Admin: 08/26/18 17:18 Dose: Not Given Pantoprazole Sodium (Protonix Ec Tab) 40 mg PO DAILY [facility] Last Admin: 08/26/18 09:24 Dose: 40 mg Promethazine HCl (Phenergan Syrup) 6.25 mg PO Q6 PRN PRN Reason: Cough Last Admin: 08/25/18 21:36 Dose: 6.25 mg Propranolol HCl (Inderal) 5 mg PO 0800,1400,2000 [facility] Last Admin: 08/26/18 20:00 Dose: 5 mg Saccharomyces Boulardii (Florastor) 250 mg PO HS [facility] Last Admin: 08/26/18 21:12 Dose: 250 mg Spironolactone (Aldactone) 25 mg PO Q12H [facility] Last Admin: 08/26/18 21:00 Dose: 25 mg Thiamine HCl (Vitamin B1 Tab) 100 mg PO DAILY [facility] Last Admin: 08/26/18 09:24 Dose: 100 mg - Labs Labs: 08/26/18 07:59 08/26/18 07:59 PT 17.1 SECONDS (9.7-12.2) H 08/23/18 07:04 INR 1.6 08/23/18 07:04 APTT 33 SECONDS (21-34) 08/23/18 07:04
--- NOTE | 2018-08-27 07:06 | CP.PCM.PN ---
Subjective - Date & Time of Evaluation Date of Evaluation: 08/26/18 Time of Evaluation: 07:06 - Subjective Subjective: The patient is still having some cough, not in any distress. Patient is feeling otherwise well. Poor appetite noted. The right leg wound is improving Clinical examination: Chest good air entry, expiratory wheezing noted, regular heart sound, abdominal tenderness negative. Leg edema is less Assessment and recommendation: Patient is a 42-year-old male with a history of liver disease, chronic alcoholism admitted with alcoholic liver damage. Sepsis septicemia. Right leg ulcer. I recommended intravenous antibiotic daily wound care for possible rehab placement Objective - Vital Signs/Intake and Output Vital Signs (last 24 hours): Temp Pulse Resp BP Pulse Ox 98.4 F 85 20 154/90 H 99 08/26/18 23:15 08/26/18 23:15 08/26/18 23:15 08/26/18 23:15 08/26/18 23:15 Intake and Output: 08/27/18 08/27/18 06:59 18:59 Intake Total 600 Balance 600 - Medications Medications: Current Medications Clonidine HCl (Catapres Tts1 0.1 Mg/24 Hr) 1 patch TD Q7D@1400 [facility] Fluocinonide (Lidex 0.05% Cream) 1 gm TOP BID [facility] Last Admin: 08/26/18 18:00 Dose: 1 applic Folic Acid (Folic Acid) 1 mg PO DAILY [facility] Last Admin: 08/26/18 09:22 Dose: 1 mg Furosemide (Lasix) 40 mg PO DAILY [facility] Last Admin: 08/26/18 09:17 Dose: 40 mg Gabapentin (Neurontin) 300 mg PO BID [facility] Last Admin: 08/26/18 17:18 Dose: 300 mg Piperacillin Sod/Tazobactam (Sod 3.375 gm/ Sodium Chloride) 100 mls @ 200 mls/hr IVPB Q8H [facility]; Protocol Last Admin: 08/27/18 03:38 Dose: 200 mls/hr Vancomycin HCl 500 mg/ Sodium (Chloride) 100 mls @ 100 mls/hr IVPB Q12H [facility]; Protocol Last Admin: 08/26/18 21:00 Dose: 100 mls/hr Lactic Acid (Lac-Hydrin 12% Lotion (225 G)) 1 gm EXT DAILY [facility] Last Admin: 08/26/18 09:14 Dose: 1 applic Lactulose (Enulose) 20 gm PO BID [facility] Last Admin: 08/26/18 17:19 Dose: Not Given Losartan Potassium (Cozaar) 25 mg PO DAILY [facility] Last Admin: 08/26/18 09:21 Dose: 25 mg Mupirocin (Bactroban 2% Nasal) 0.25 gm ORION BID [facility] Last Admin: 08/26/18 17:18 Dose: Not Given Pantoprazole Sodium (Protonix Ec Tab) 40 mg PO DAILY [facility] Last Admin: 08/26/18 09:24 Dose: 40 mg Promethazine HCl (Phenergan Syrup) 6.25 mg PO Q6 PRN PRN Reason: Cough Last Admin: 08/25/18 21:36 Dose: 6.25 mg Propranolol HCl (Inderal) 5 mg PO 0800,1400,2000 [facility] Last Admin: 08/26/18 20:00 Dose: 5 mg Saccharomyces Boulardii (Florastor) 250 mg PO HS [facility] Last Admin: 08/26/18 21:12 Dose: 250 mg Spironolactone (Aldactone) 25 mg PO Q12H [facility] Last Admin: 08/26/18 21:00 Dose: 25 mg Thiamine HCl (Vitamin B1 Tab) 100 mg PO DAILY [facility] Last Admin: 08/26/18 09:24 Dose: 100 mg - Labs Labs: 08/26/18 07:59 08/26/18 07:59 PT 17.1 SECONDS (9.7-12.2) H 08/23/18 07:04 INR 1.6 08/23/18 07:04 APTT 33 SECONDS (21-34) 08/23/18 07:04
--- NOTE | 2018-08-27 07:06 | CP.PCM.PN ---
Subjective - Date & Time of Evaluation Date of Evaluation: 08/25/18 Time of Evaluation: 07:06 - Subjective Subjective: The patient is still having some cough, not in any distress. Patient is feeling otherwise well. Poor appetite noted. The right leg wound is improving Clinical examination: Chest good air entry, expiratory wheezing noted, regular heart sound, abdominal tenderness negative. Leg edema is less Assessment and recommendation: Patient is a 42-year-old male with a history of liver disease, chronic alcoholism admitted with alcoholic liver damage. Sepsis septicemia. Right leg ulcer. I recommended intravenous antibiotic daily wound care for possible rehab placement Objective - Vital Signs/Intake and Output Vital Signs (last 24 hours): Temp Pulse Resp BP Pulse Ox 98.4 F 85 20 154/90 H 99 08/26/18 23:15 08/26/18 23:15 08/26/18 23:15 08/26/18 23:15 08/26/18 23:15 Intake and Output: 08/27/18 08/27/18 06:59 18:59 Intake Total 600 Balance 600 - Medications Medications: Current Medications Clonidine HCl (Catapres Tts1 0.1 Mg/24 Hr) 1 patch TD Q7D@1400 [facility] Fluocinonide (Lidex 0.05% Cream) 1 gm TOP BID [facility] Last Admin: 08/26/18 18:00 Dose: 1 applic Folic Acid (Folic Acid) 1 mg PO DAILY [facility] Last Admin: 08/26/18 09:22 Dose: 1 mg Furosemide (Lasix) 40 mg PO DAILY [facility] Last Admin: 08/26/18 09:17 Dose: 40 mg Gabapentin (Neurontin) 300 mg PO BID [facility] Last Admin: 08/26/18 17:18 Dose: 300 mg Piperacillin Sod/Tazobactam (Sod 3.375 gm/ Sodium Chloride) 100 mls @ 200 mls/hr IVPB Q8H [facility]; Protocol Last Admin: 08/27/18 03:38 Dose: 200 mls/hr Vancomycin HCl 500 mg/ Sodium (Chloride) 100 mls @ 100 mls/hr IVPB Q12H [facility]; Protocol Last Admin: 08/26/18 21:00 Dose: 100 mls/hr Lactic Acid (Lac-Hydrin 12% Lotion (225 G)) 1 gm EXT DAILY [facility] Last Admin: 08/26/18 09:14 Dose: 1 applic Lactulose (Enulose) 20 gm PO BID [facility] Last Admin: 08/26/18 17:19 Dose: Not Given Losartan Potassium (Cozaar) 25 mg PO DAILY [facility] Last Admin: 08/26/18 09:21 Dose: 25 mg Mupirocin (Bactroban 2% Nasal) 0.25 gm ORION BID [facility] Last Admin: 08/26/18 17:18 Dose: Not Given Pantoprazole Sodium (Protonix Ec Tab) 40 mg PO DAILY [facility] Last Admin: 08/26/18 09:24 Dose: 40 mg Promethazine HCl (Phenergan Syrup) 6.25 mg PO Q6 PRN PRN Reason: Cough Last Admin: 08/25/18 21:36 Dose: 6.25 mg Propranolol HCl (Inderal) 5 mg PO 0800,1400,2000 [facility] Last Admin: 08/26/18 20:00 Dose: 5 mg Saccharomyces Boulardii (Florastor) 250 mg PO HS [facility] Last Admin: 08/26/18 21:12 Dose: 250 mg Spironolactone (Aldactone) 25 mg PO Q12H [facility] Last Admin: 08/26/18 21:00 Dose: 25 mg Thiamine HCl (Vitamin B1 Tab) 100 mg PO DAILY [facility] Last Admin: 08/26/18 09:24 Dose: 100 mg - Labs Labs: 08/26/18 07:59 08/26/18 07:59 PT 17.1 SECONDS (9.7-12.2) H 08/23/18 07:04 INR 1.6 08/23/18 07:04 APTT 33 SECONDS (21-34) 08/23/18 07:04
[2018-08-27] MEDS: Propranolol 5 mg Tab PO SCH ×3 (08:40→20:17)
[2018-08-27] MEDS: Mupirocin 2% Ointment (NASAL) NAS SCH ×3 (09:38→18:11)
[2018-08-27] MEDS: Pantoprazole 40 mg EC Tab PO SCH (09:38)
[2018-08-27] MEDS: Ammonium Lactate 12% Lotion (225 g) EXT SCH (09:43)
[2018-08-27] MEDS: Saccharomyces Boulardi 250 mg Cap PO SCH (21:13)
[2018-08-28] MEDS: Piperacillin/Tazobact 3.375 GM in Sodium Chloride 100 ML IVPB SCH ×3 (03:16→20:22)
[2018-08-28] MEDS: Propranolol 5 mg Tab PO SCH ×3 (08:07→20:22)
[2018-08-28] MEDS: Pantoprazole 40 mg EC Tab PO SCH (09:59)
[2018-08-28] MEDS: Mupirocin 2% Ointment (NASAL) NAS SCH ×2 (10:01→18:52)
[2018-08-28] MEDS: Ammonium Lactate 12% Lotion (225 g) EXT SCH ×2 (10:07→10:10)
[2018-08-28] MEDS: Saccharomyces Boulardi 250 mg Cap PO SCH ×2 (20:25→21:44)
[2018-08-29] MEDS: Piperacillin/Tazobact 3.375 GM in Sodium Chloride 100 ML IVPB SCH ×3 (03:49→21:00)
[2018-08-29] MEDS: Propranolol 5 mg Tab PO SCH ×3 (07:58→21:21)
--- NOTE | 2018-08-29 17:49 | PCM.HF ---
Heart Failure Core Measure - Heart Failure Ejection Fraction: Less Than 40 % (EF 30%) ROXI Inhibitor Prescribed: No Contraindication/Reason for not providing: on ARB Beta-Matteo Prescribed: Bisoprolol, None Contraindication/Reason for not providing: on proponolol Angiotensin II Receptor Matteo Prescribed: Yes AnticoagulationTherapy for Atrial Fibrillation/Atrialflutter: No Contraindication/Reason for not providing: NO AFIB Aldosterone Antagonist Prescribed: Yes Hydralazine Nitrate Prescribed: No Contraindication/Reason for not providing: on CCB Implantable Cardioverter Defibrillator Therapy: No Contraindication/Reason for not providing: will be evaluated in the office Cardiac Resynchronization Therapy Prescribed: No Contraindication/Reason for not providing: not indicated - Follow up Will be discharged to: Home Follow Up Date (must be within 7 days from discharge): 09/05/18 Follow Up Time: 10:00
[2018-08-29] MEDS: Mupirocin 2% Ointment (NASAL) NAS SCH (18:14)
[2018-08-29] MEDS: Saccharomyces Boulardi 250 mg Cap PO SCH (21:20)
--- NOTE | 2018-08-29 21:49 | CP.PCM.PN ---
Subjective - Date & Time of Evaluation Date of Evaluation: 08/29/18 Time of Evaluation: 21:48 - Subjective Subjective: Patient is alert awake comfortable not in any distress. Today patient was made discharge plan. He was supposed to be living, but as the patient is having hard time in getting the appointment with the psychiatry department currently he is staying here until he gets the appointment for alcoholic detoxification and maintenance of alcohol abstinence. We will try to get appointment within 7 days, and the following that he will be discharged to home. Educated the patient regarding the alcoholic Anonymous. He will continue the rest of the medication when he kneels and will follow the patient Objective - Vital Signs/Intake and Output Vital Signs (last 24 hours): Temp Pulse Resp BP Pulse Ox 98.2 F 83 20 159/92 H 100 08/29/18 15:00 08/29/18 15:00 08/29/18 15:00 08/29/18 15:00 08/29/18 15:00 Intake and Output: 08/29/18 08/30/18 18:59 06:59 Intake Total 100 Balance 100 - Medications Medications: Current Medications Clonidine HCl (Catapres Tts1 0.1 Mg/24 Hr) 1 patch TD Q7D@1400 [facility] Fluocinonide (Lidex 0.05% Cream) 1 gm TOP BID [facility] Last Admin: 08/29/18 18:13 Dose: 1 applic Folic Acid (Folic Acid) 1 mg PO DAILY [facility] Last Admin: 08/28/18 09:58 Dose: 1 mg Furosemide (Lasix) 40 mg PO DAILY [facility] Last Admin: 08/28/18 09:58 Dose: 40 mg Gabapentin (Neurontin) 300 mg PO BID [facility] Last Admin: 08/29/18 18:13 Dose: 300 mg Piperacillin Sod/Tazobactam (Sod 3.375 gm/ Sodium Chloride) 100 mls @ 200 mls/hr IVPB Q8H [facility]; Protocol Last Admin: 08/29/18 21:00 Dose: 200 mls/hr Lactic Acid (Lac-Hydrin 12% Lotion (225 G)) 1 gm EXT DAILY [facility] Last Admin: 08/28/18 10:10 Dose: 1 applic Lactulose (Enulose) 20 gm PO BID [facility] Last Admin: 08/29/18 18:14 Dose: Not Given Losartan Potassium (Cozaar) 50 mg PO DAILY [facility] Last Admin: 08/28/18 09:59 Dose: 50 mg Mupirocin (Bactroban 2% Nasal) 0.25 gm ORION BID [facility] Last Admin: 08/29/18 18:14 Dose: Not Given Pantoprazole Sodium (Protonix Ec Tab) 40 mg PO DAILY [facility] Last Admin: 08/28/18 09:59 Dose: 40 mg Promethazine HCl (Phenergan Syrup) 6.25 mg PO Q6 PRN PRN Reason: Cough Last Admin: 08/25/18 21:36 Dose: 6.25 mg Propranolol HCl (Inderal) 5 mg PO 0800,1400,2000 [facility] Last Admin: 08/29/18 21:21 Dose: 5 mg Saccharomyces Boulardii (Florastor) 250 mg PO HS [facility] Last Admin: 08/29/18 21:20 Dose: 250 mg Spironolactone (Aldactone) 25 mg PO Q12H [facility] Last Admin: 08/29/18 21:00 Dose: 25 mg Thiamine HCl (Vitamin B1 Tab) 100 mg PO DAILY [facility] Last Admin: 08/28/18 09:59 Dose: 100 mg - Labs Labs: 08/26/18 07:59 08/26/18 07:59 PT 17.1 SECONDS (9.7-12.2) H 08/23/18 07:04 INR 1.6 08/23/18 07:04 APTT 33 SECONDS (21-34) 08/23/18 07:04
[2018-08-30 01:20] VITALS: O2SAT 99
[2018-08-30] MEDS: Piperacillin/Tazobact 3.375 GM in Sodium Chloride 100 ML IVPB SCH (04:05)
[2018-08-30 07:47] VITALS: BP 145/82; PULSE 87; RESP 18; TEMP 98.2
[2018-08-30] MEDS: Propranolol 5 mg Tab PO SCH (08:51)
[2018-08-30] MEDS: Mupirocin 2% Ointment (NASAL) NAS SCH ×2 (09:17→09:20)
[2018-08-30] MEDS: Ammonium Lactate 12% Lotion (225 g) EXT SCH (09:19)
[2018-08-30] MEDS: Pantoprazole 40 mg EC Tab PO SCH (09:23)
--- NOTE | 2018-09-05 08:49 | CP.PCM.DIS ---
Provider - Provider Date of Admission: 08/21/18 20:35 Attending physician: Damaris Edwards MD Consults: 08/22/18 13:48 Psychiatry Consult Routine Comment: Consulting Provider: Rebeka Parrish Consulting Physician: Rebeka Parrish Reason for Consult: etoh detox 08/23/18 07:54 Hematology Oncology Consult Routine Comment: Consulting Provider: Sherita Petersen Consulting Physician: Sherita Petersen Reason for Consult: thrombocytopenia 08/23/18 12:39 Wound Care [Nursing Referral for Wound Care] Routine Comment: Physician Instructions: Reason For Exam: multiple open ulcer, please assess. Time Spent in preparation of Discharge (in minutes): 45 Hospital Course - Lab Results Lab Results: Micro Results 08/21/18 20:30 Blood-Venous Blood Culture - Final NO GROWTH AFTER 5 DAYS 08/21/18 20:30 Blood-Venous Gram Stain - Final TEST NOT PERFORMED 08/21/18 20:00 Blood-Venous Blood Culture - Final NO GROWTH AFTER 5 DAYS 08/21/18 20:00 Blood-Venous Gram Stain - Final TEST NOT PERFORMED 08/21/18 22:35 Urine,Kidney Urine Culture - Final No Growth (<1,000 CFU/ML) Most Recent Lab Values WBC 5.0 K/uL (4.8-10.8) 08/26/18 07:59 RBC 3.47 Mil/uL (4.40-5.90) L 08/26/18 07:59 Hgb 9.9 g/dL (12.0-18.0) L 08/26/18 07:59 Hct 29.2 % (35.0-51.0) L 08/26/18 07:59 MCV 84.3 fL (80.0-94.0) 08/26/18 07:59 MCH 28.6 pg (27.0-31.0) 08/26/18 07:59 MCHC 34.0 g/dL (33.0-37.0) 08/26/18 07:59 RDW 20.1 % (11.5-14.5) H 08/26/18 07:59 Plt Count 49 K/uL (130-400) L 08/26/18 07:59 MPV 7.8 fL (7.2-11.7) 08/26/18 07:59 Neut % (Auto) 40.7 % (50.0-75.0) L 08/26/18 07:59 Lymph % (Auto) 38.1 % (20.0-40.0) 08/26/18 07:59 [place] % (Auto) 14.1 % (0.0-10.0) H 08/26/18 07:59 Eos % (Auto) 6.8 % (0.0-4.0) H 08/26/18 07:59 Baso % (Auto) 0.3 % (0.0-2.0) 08/26/18 07:59 Neut # (Auto) 2.0 K/uL (1.8-7.0) 08/26/18 07:59 Lymph # (Auto) 1.9 K/uL (1.0-4.3) 08/26/18 07:59 [place] # (Auto) 0.7 K/uL (0.0-0.8) 08/26/18 07:59 Eos # (Auto) 0.3 K/uL (0.0-0.7) 08/26/18 07:59 Baso # (Auto) 0.0 K/uL (0.0-0.2) 08/26/18 07:59 Differential Comment 08/21/18 20:15 Retic Count 2.9 % (0.5-1.5) H D 08/24/18 07:07 PT 17.1 SECONDS (9.7-12.2) H 08/23/18 07:04 INR 1.6 08/23/18 07:04 APTT 33 SECONDS (21-34) 08/23/18 07:04 pO2 40 mm/Hg (30-55) 08/21/18 20:16 VBG pH 7.39 (7.32-7.43) 08/21/18 20:16 VBG pCO2 38 mmHg (40-60) L 08/21/18 20:16 VBG HCO3 23.0 mmol/L 08/21/18 20:16 VBG Total CO2 24.2 mmol/L (22-28) 08/21/18 20:16 VBG O2 Sat (Calc) 72.6 % (40-65) H 08/21/18 20:16 VBG Base Excess -1.7 mmol/L (0.0-2.0) L 08/21/18 20:16 VBG Potassium 4.1 mmol/L (3.6-5.2) 08/21/18 20:16 Sodium 142.0 mmol/l (132-148) 08/21/18 20:16 Chloride 107.0 mmol/L (98-107) 08/21/18 20:16 Glucose 149 mg/dl (75-110) H 08/21/18 20:16 Lactate 5.1 mmol/L (0.7-2.1) H* 08/21/18 20:16 Crit Value Called To Er 08/21/18 20:16 Crit Value Called By Rt 08/21/18 20:16 Crit Value Read Back Y 08/21/18 20:16 Blood Gas Notified Time 201908/21/18 20:16 Sodium 133 mmol/L (132-148) 08/26/18 07:59 Potassium 4.0 mmol/L (3.6-5.2) 08/26/18 07:59 Chloride 107 mmol/L (98-107) 08/26/18 07:59 Carbon Dioxide 23 mmol/L (22-30) 08/26/18 07:59 Anion Gap 7 (10-20) L 08/26/18 07:59 BUN 9 mg/dL (9-20) 08/26/18 07:59 Creatinine 0.9 mg/dL (0.8-1.5) 08/26/18 07:59 Est GFR ( Amer) > 60 08/26/18 07:59 Est GFR (Non-Af Amer) > 60 08/26/18 07:59 POC Glucose (mg/dL) 164 mg/dL (65-110) H 08/29/18 16:32 Random Glucose 100 mg/dL (75-110) 08/26/18 07:59 Lactic Acid 3.4 mmol/L (0.7-2.1) H 08/21/18 22:35 Calcium 7.8 mg/dl (8.6-10.4) L 08/26/18 07:59 Phosphorus 2.0 mg/dL (2.5-4.5) L 08/24/18 07:07 Magnesium 1.4 mg/dL (1.6-2.3) L 08/24/18 07:07 Ferritin 41.2 ng/mL 08/24/18 07:07 Total Bilirubin 1.0 mg/dL (0.2-1.3) 08/24/18 07:07 AST 63 U/L (17-59) H 08/24/18 07:07 ALT 32 U/L (21-72) 08/24/18 07:07 Alkaline Phosphatase 113 U/L (38-126) 08/24/18 07:07 Ammonia 89 umol/L (9-33) H 08/21/18 20:15 NT-Pro-B Natriuret Pep 475 pg/mL (0-450) H 08/21/18 20:47 Total Protein 5.7 g/dL (6.3-8.3) L 08/24/18 07:07 Albumin 2.5 g/dL (3.5-5.0) L 08/24/18 07:07 Globulin 3.3 gm/dL (2.2-3.9) 08/24/18 07:07 Albumin/Globulin Ratio 0.8 (1.0-2.1) L 08/24/18 07:07 Alpha Fetoprotein 4.5 ng/mL (0.0-7.5) 08/24/18 07:07 Vitamin B12 > 1000 pg/mL (239-931) H 08/24/18 07:07 Venous Blood Potassium 4.1 mmol/L (3.6-5.2) 08/21/18 20:16 Urine Color Tammy (YELLOW) 08/21/18 22:35 Urine Clarity Hazy (Clear) 08/21/18 22:35 Urine pH 5.0 (5.0-8.0) 08/21/18 22:35 Ur Specific [place] 1.020 (1.003-1.030) 08/21/18 22:35 Urine Protein 2+ mg/dL (NEGATIVE) H 08/21/18 22:35 Urine Glucose (UA) Normal mg/dL (Normal) 08/21/18 22:35 Urine Ketones Negative mg/dL (NEGATIVE) 08/21/18 22:35 Urine Blood 3+ (NEGATIVE) H 08/21/18 22:35 Urine Nitrate Negative (NEGATIVE) 08/21/18 22:35 Urine Bilirubin 1+ (NEGATIVE) H 08/21/18 22:35 Urine Urobilinogen 4.0 mg/dL (0.2-1.0) 08/21/18 22:35 Ur Leukocyte Esterase Neg Lexie/uL (Negative) 08/21/18 22:35 Urine WBC (Auto) 19 /hpf (0-5) H 08/21/18 22:35 Urine RBC (Auto) 243 /hpf (0-3) H 08/21/18 22:35 Ur Squamous Epith Cells < 1 /hpf (0-5) 08/21/18 22:35 Urine Bacteria Rare (<OCC) 08/21/18 22:35 Hyaline Casts 11-20 /lpf (0-2) H 08/21/18 22:35 Urine Yeast (Budding) Occ /hpf (NEGATIVE) H 08/21/18 22:35 Alcohol, Quantitative 284 mg/dl (0-10) H 08/21/18 20:15 - Hospital Course Hospital Course: Chief complaints: pt drank etoh and not feeling well HPI: 43-year-old male with a history of liver disease, diabetes, psoriasis, psoriatic arthritis, recurrent sepsis and recurrent skin infections, alcoholic liver disease, liver cirrhosis brought in by the family member today because of the worsening leg swelling, leg ulcers and leaking skin changes in the legs bilaterally. Patient came to the emergency room with increasing leg swelling. Not feeling well. He was also complaining of shortness of breath. Patient denied any chest pain. Mild cough noted. Mostly dry. He was also complaining of some body pain Patient in the past has hospitalized multiple times with a chronic leg ulcer, sepsis and septic shock. Patient also has a significant skin changes secondary to psoriasis In the past patient had a multiple skin ulcers, excoriation of the skin, psoriatic skin changes noted. But now patient had blisterlike skin lesions on the right leg, broke and started having diffuse skin ulcers in the lower extremity on the right leg and also some on the left leg noted. Some of the skin lesions foul-smelling, with some discharge present. he is having some hard time in walking. Patient also has diabetes, not controlled well recently PMHx: Diabetes, hypertension, chronic liver disease, alcoholic liver disease, variceal PSHx: history of endoscopy/colonoscopy Allergies: NKDA Family hx: Father: history of heart transplant; Mother: hypertension/diabetes Social Hx: past h/o alcohol consumption (~1pint of vodka per day), denies illicit drug use and former tobacco use Endoscopy hx: Endoscopy/Colonoscopy completed in 10/2015 - revealed grade 1 esophageal varices, LA Grade B Esophagitis, internal hemorrhoids, edema of the ascending colon ROS: headache noted. Bleeding gums noted. No chest pain. Coughing noted, Mucus production present. No fever. No abdominal distention. Patient has no diarrhea or bleeding. Bilateral leg swelling leg edema noted. No scrotal swelling noted Vital signs reviewed No neck vein distention noted Chest good air entry bilaterally, no wheezing or rales noted CVS regular heart sound, no murmur noted abdominal distention noted pedal edema noted Patient has a multiple geographic skin lesions in the right leg occupying the right middle one third of the leg in the anterior aspect, medial as well as lateral aspect and also some skin lesion in the proximal leg noted. There is also some blisterlike skin on the left side noted. [employer] alert awake oriented -3, no functional neurological deficit patient is having tremor Psoriatic skin lesions labs reviewed Nonspecific. chest x-ray negative. Assessment and recommended 42-year-old male, hypertension, alcoholic liver disease, diabetes, psoriasis admitted with multiple skin ulcers, multipl medical problems including diabetes Hypertension Hypercholesteremia. Chronic heart disease, congestive heart failure, systolic heart failure. 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 Patient possibly has a cardiomyopathy. Associate with the decompensated heart failure now. Systolic in character. Leg edema noted. Patient now admitted with alcoholism. Alcoholic intoxication. Associated with the sepsis. Pneumonia likely. Underlying soft tissue cellulitis of the leg cannot be ruled out. Patient is at high risk. Alcoholism, alcoholic induced liver disease and the complications. Course in the hospital: Patient was admitted initially to the medical floor with the diagnosis of acute EtOH intoxication Patient was also closely monitored for possible DTs. Patient developed a mild diabetes, and was controlled with Ativan as well as chlordiazepoxide. Patient was also having severe cellulitis of the leg. History of alcoholic cardiomyopathy and low ejection fraction. Patient started on IV antibiotic closely monitored. Gradually his symptoms got better. Skin lesions also improving. The wound in the right leg is improving. Clinically stable. He will be discharged home. He will continue the outpatient wound management. Close monitoring by the psychiatry department for alcoholic withdrawal symptoms. Recommended to continue alcoholic abstinence. We will continue rest of the medications which was prescribed and given to the patient. We will follow the patient in the office in 1 week. Final diagnosis acute alcoholism Alcoholic withdrawal delirium Cellulitis of the leg. Congestive heart failure alcoholic cardiomyopathy. Psoriasis. Diabetes Osteoarthritis. Psoriatic arthritis. Depression Discharge Plan - Discharge Medications Prescriptions: cloNIDine 0.1 mg/24 hr [catapres TTS1 0.1 mg/24 hr] 1 patch TD Q7D@1400 #4 patch - Follow Up Plan Condition: FAIR Disposition: HOME/ ROUTINE Instructions: Heart Healthy Diet, Heart Failure, Adult (DC), Sepsis, Adult (DC), Alcohol Withdrawal (DC), Alcohol Abuse and Alcoholism (DC), Clonidine Additional Instructions: Follow up with f/u with psychiatric dept follow up appt for AA,and please make a f/u with psyciatric dept in before discharge. follow up appt for AA,and please make a follow up with psychiatric dept in before discharge. Referrals: [facility] [Outside] Damaris Edwards MD [Staff Provider] -
== END 2018-08-30 13:29 | disposition home or self-care (01) | DRG 872 ==
LOC: C.ER 19:24 → C.9E 20:35 → C.9I 08-22 09:13 → C.9E 08-22 11:14 → C.6T 08-22 13:57
PROVIDERS: ADMIT Internal Medicine; ATTEND Internal Medicine
PROC: HZ52ZZZ Individual Psychotherapy for Substance Abuse Treatment, Cognitive-Behavioral (ICD-10-PCS; principal; 2018-08-23)
PROC: HZ59ZZZ Individual Psychotherapy for Substance Abuse Treatment, Supportive (ICD-10-PCS; 2018-08-23)
PROC: HZ56ZZZ Individual Psychotherapy for Substance Abuse Treatment, Psychoeducation (ICD-10-PCS; 2018-08-23)
PROC: GZHZZZZ Group Psychotherapy (ICD-10-PCS; 2018-08-23)
PROC: GZ58ZZZ Individual Psychotherapy, Cognitive-Behavioral (ICD-10-PCS; 2018-08-23)
PROC: GZ56ZZZ Individual Psychotherapy, Supportive (ICD-10-PCS; 2018-08-23)
DX: A41.9 Sepsis, unspecified organism (principal); D61.818 Other pancytopenia; I50.22 Chronic systolic (congestive) heart failure; L03.115 Cellulitis of right lower limb; I42.6 Alcoholic cardiomyopathy; L97.919 Non-pressure chronic ulcer of unspecified part of right lower leg with unspecified severity; F10.229 Alcohol dependence with intoxication, unspecified; E11.65 Type 2 diabetes mellitus with hyperglycemia; K70.31 Alcoholic cirrhosis of liver with ascites; Y90.8 Blood alcohol level of 240 mg/100 ml or more; L40.50 Arthropathic psoriasis, unspecified; E83.42 Hypomagnesemia; D73.1 Hypersplenism; E11.622 Type 2 diabetes mellitus with other skin ulcer; R65.20 Severe sepsis without septic shock